=== PATIENT | female | born 1960 | race Caucasian/White ===

== ENCOUNTER 2019-11-19 11:28 | Observation (INO) | payer MEDICARE, MEDICAID, SELFPAY ==
[2019-11-19] VITALS (11 sets, daily range): BP systolic 103–146; BP diastolic 38–73; PULSE 42–62; RESP 14–18; TEMP 36.1–36.8; O2SAT 94–100; BMI 30.9
--- NOTE | ~2019-11-19 | CT_ITS ---
EXAMINATION: CT brain wo con DATE: 11/19/2019 12:33 INDICATION: Dizziness. Garbled speech. TECHNIQUE: Computed tomography (CT) of the head was performed without intravenous contrast. Sagittal and coronal reconstructions were performed. The mA was adjusted according to patient size. Iterative reconstruction technique was employed. The dose-length product was 605.33 mGy-cm. COMPARISON: head CT dated 04/12/19 and brain MR dated 04/13/19 FINDINGS: No acute intracranial hemorrhage, acute infarction or abnormal extra axial fluid collection. There is mild scattered white matter hypoattenuation consistent with chronic small vessel ischemic disease. Ventricles are normal and symmetric. No mass/mass effect. The orbits, paranasal sinuses and mastoid a ir cells are normal. Mild intracranial atherosclerotic calcification at the bilateral carotid siphons . IMPRESSION: 1. No acute intracranial process. 2. Stable appearance of mild scattered white matter hypoattenuation consistent with chronic small ves alexis ischemic disease. Reviewed, dictated and finalized at location A. ICAL SUPPLY ASSISTANT IMPRESSION: 1. No acute intracranial process. 2. Stable appearance of mild scattered white matter hypoattenuation consistent with chronic small vessel ischemic disease.
--- NOTE | ~2019-11-19 | XR_ITS ---
EXAMINATION: XR chest 1V portable DATE: 11/19/2019 12:48 INDICATION: Dizziness. TECHNIQUE: A single frontal view of the chest was obtained. COMPARISON: Chest single view 04/12/2019 FINDINGS: The chest demonstrates clear lungs without pneumonia, pleural effusion, or pneumothorax. Th e heart size is normal. There are changes of anterior fusion procedure in cervical spine. IMPRESSION: 1. No acute cardiopulmonary disease. Reviewed, dictated and finalized at location A. R MECHANIC
--- NOTE | ~2019-11-19 | US_ITS ---
EXAMINATION: US carotid duplex BI EXAM DATE: 11/19/2019 17:08 INDICATION: Dizziness, blurred vision. TECHNIQUE: Grayscale, color and pulsed Doppler images of the cervical carotid arteries were obtained . The degree of vessel stenosis is placed in one of the following categories: normal, <50% stenosis, 50-69% stenosis, >=70% stenosis but less than near-occlusion, near-occlusion, or occlusion. Note that percent stenosis relative to normal distal artery lumen diameter is indirectly measured from velocit y measurements as described by Marcelo, et al. Radiology 2003; 229:340-346. Comparison is made to prior examination from 10/12/2018. FINDINGS: RIGHT SIDE: Right common carotid artery peak systolic velocity (PSV in cm/s): 108 Right bulb/internal carotid artery peak systolic velocity (PSV in cm/s): 100 Right internal carotid artery end diastolic velocity (EDV in cm/s): 22 Right ICA/CCA peak systolic ratio: 0.9 Right external carotid artery peak systolic velocity (PSV in cm/s): 77 Right vertebral artery antegrade flow: yes There is no focal plaque identified. LEFT SIDE: Left common carotid artery peak systolic velocity (PSV in cm/s): 102 Left bulb/internal carotid artery peak systolic velocity (PSV in cm/s): 112 Left internal carotid artery end diastolic velocity (EDV in cm/s): 33 Left ICA/CCA peak systolic ratio: 1.1 Left external carotid artery peak systolic velocity (PSV in cm/s): 85 Left vertebral artery antegrade flow: yes There is no focal plaque identified. IMPRESSION: 1. Normal right internal carotid artery. 2. Normal left internal carotid artery. Reviewed, dictated and finalized at location A. TH BENEFITS SPECIALIST
--- NOTE | ~2019-11-19 | MR_ITS ---
EXAMINATION: MR brain/brain stem wo con DATE: 11/20/2019 08:23 INDICATION: Vertigo. Cerebral vascular accident. TECHNIQUE: Magnetic resonance imaging (MRI) of the brain and brainstem was performed without intraven ous contrast. Sequences included sagittal and axial T1-weighted FSE, axial diffusion-weighted FS EPI, axial T2*-weighted GRE, axial T2-weighted FLAIR Propeller, and axial T2-weighted Propeller. Apparent diffusion coefficient (ADC) maps were created. COMPARISON: Brain MRI 04/13/2019, head CT 11/19/2019 FINDINGS: There are scattered areas of nonspecific increased T2-weighted signal intensity in the cere bral white matter. There is no intracranial hemorrhage, acute infarction, or abnormal intracranial ma ss lesion. The ventricles are normal in size. The paranasal sinuses are clear. The orbits are normal. The mastoid air cells are normal. IMPRESSION: 1. Unchanged mild nonspecific cerebral white matter disease, which likely represents chronic small ve ssel ischemic disease. Reviewed, dictated and finalized at location A. ETING OPERATIONS ASSISTANT IMPRESSION: 1. Unchanged mild nonspecific cerebral white matter disease, which likely repre sents chronic small vessel ischemic disease.
--- NOTE | 2019-11-19 11:44 | ECG_ITS ---
Measurements Intervals [place] Rate: 40 P: 70 MA: 211 QRS: 13 QRSD: 80 T: 73 QT: 454 QTc: 371 Interpretive Statements SINUS BRADYCARDIA WITH FIRST DEGREE AV BLOCK RSR' IN V1 OR V2, PROBABLY NORMAL VARIANT BORDERLINE R WAVE PROGRESSION, ANTERIOR LEADS BASELINE ARTIFACT- I, II, AVR, AVF ABNORMAL ECG Electronically Signed On 11-19-2019 11:52:02 COLLECTION SYSTEMS ADMINISTRATOR by Brandon Wolf D.O.
[2019-11-19 12:02] LABS: Basophils Percent Auto 0.5 % (0.2-1.2); Eosinophils Absolute Auto 0.2 K/mm3 (0-0.3); Eosinophils Percent Auto 3.6 % (0-4.4); Hematocrit 42.9 % (37.0-47.0); Hemoglobin 13.7 g/dL (12.0-15.0); Immature Granulocyte Absolute 0.03 K/mm3 (0.00-0.031); Immature Granulocyte Percent A 0.5 % (0-0.5); Lymphocytes Absolute Auto 2.37 K/mm3 (0.9-3.2); Lymphocytes Percent Auto 35.9 % (18.3-44.2); Mean Corpuscular HGB Conc 31.9 g/dl (32-36); Mean Corpuscular Hemoglobin 28.1 pg (26-34); Mean Corpuscular Volume 88.1 fl (80-100); Mean Platelet Volume 9.9 fl (7.4-10.4); Monocytes Absolute Auto 0.3 K/mm3 (0.1-0.6); Monocytes Percent Auto 5.2 % (2.6-8.5); Neutrophils Absolute Auto 3.6 K/mm3 (1.3-6.7); Neutrophils Percent Auto 54.3 % (45.5-73.1); Platelet Count Result 284 k/mm3 (150-375); Red Blood Count 4.87 M/mm3 (4.2-5.4); Red Cell Distribution Width 13.4 % (11.5-14.5); White Blood Count 6.6 K/mm3 (4.5-10.0)
[2019-11-19] MEDS: SODIUM CHLORIDE 0.9% IV 500 ML 999 ML IV CONT (12:12)
[2019-11-19] MEDS: ONDANSETRON INJ 4 MG/2 ML VIAL IV PUSH (12:12)
[2019-11-19 12:19] LABS: INR 1.4; Prothrombin Time 17.2 Seconds (11.1-14.7)
[2019-11-19 12:20] LABS: Partial Thromboplastin Time 39.7 SECONDS (22.3-36.8)
[2019-11-19 12:30] LABS: Alanine Aminotransferase 24 U/L (4-35); Albumin Level 4.3 g/dL (3.5-5.1); Alkaline Phosphatase 109 U/L (38-126); Aspartate Amino Transferase 30 U/L (14-36); Bilirubin,Total 0.7 mg/dL (0.2-1.3); Blood Urea Nitrogen 8 mg/dL (7-17); Calcium 9.3 mg/dL (8.4-10.2); Carbon Dioxide 29 mmol/L (22-30); Chloride 105 mmol/L (98-107); Estimated Glomerular Filt Rate 57; Glucose 96 mg/dL (65-105); Potassium 4.4 mmol/L (3.4-5.0); Sodium 141 mmol/L (137-145)
--- NOTE | 2019-11-19 12:30 | ED.GENADULT ---
HPI - General Adult General Chief complaint: Weakness <TAMMIE Lyon Last Filed: 11/19/19 13:28> Stated complaint: Dizzy <TAMMIE Lyon Last Filed: 11/19/19 13:28> Time Seen by Provider: 11/19/19 11:49 <TAMMIE Lyon Last Filed: 11/19/19 13:28> Source: patient <TAMMIE Lyon Last Filed: 11/19/19 13:28> Mode of arrival: ambulatory <TAMMIE Lyon Last Filed: 11/19/19 13:28> Limitations: no limitations <TAMMIE Lyon Last Filed: 11/19/19 13:28> History of Present Illness HPI narrative: Patient is a 59-year-old female who presents to emergency department for evaluation dizziness and weakness that occurred upon waking this morning noting that yesterday she had felt fine patient on arrival to emergency department per private vehicle with family noting that the dizziness occurs with standing improves with lying. Patient denies injury or trauma or any URI symptoms. Patient on arrival is resting comfortably in the room in no distress. Patient notes that she is also having difficulty with ambulating. Patient notes mild headache. Patient has not taken anything for her symptoms. Patient with history of CVA <TAMMIE Lyon Last Filed: 11/19/19 13:28> Related Data Home medications: Home Medications Medication Instructions Recorded Confirmed aspirin 81 mg tablet,delayed 81 mg PO DAILY 07/29/19 07/29/19 release levothyroxine 100 mcg tablet 100 mcg PO DAILY 07/29/19 07/29/19 rivaroxaban 20 mg tablet 20 mg PO DAILY 07/29/19 07/29/19 cetirizine 10 mg tablet 10 mg PO DAILY PRN 08/04/19 07/29/19 cyanocobalamin (vitamin B-12) 1,000 mcg PO .COMPLEX 08/04/19 07/29/19 1,000 mcg tablet ergocalciferol (vitamin D2) 1,250 50,000 unit PO MONTHLY cap 08/04/19 08/04/19 mcg (50,000 unit) capsule folic acid 1 mg tablet 1 mg PO DAILY 08/04/19 08/04/19 <TAMMIE Lyon Last Filed: 11/19/19 13:28> Allergies/adverse reactions: Allergies Allergy/AdvReac Type Severity Reaction Status Date / Time penicillin G Allergy Severe ANAPHYLACTI Verified 08/04/19 10:22 C codeine Allergy Unknown Stopped Verified 08/04/19 10:22 Breathing hydromorphone Allergy Unknown Rash Verified 08/04/19 10:22 latex Allergy Unknown Swelling Verified 08/04/19 10:22 levofloxacin Allergy Unknown BLISTERS Verified 02/14/19 15:02 ON BODY morphine Allergy Unknown Low blood Verified 08/04/19 10:22 pressure oxycodone Allergy Unknown Rash Verified 04/13/19 13:39 Penicillins Allergy Unknown Stopped Verified 08/04/19 10:22 Breathing vancomycin Allergy Unknown Red [place] Verified 08/04/19 10:22 DRINKING ALCOHOL Allergy Unknown BLISTERS Uncoded 12/01/15 10:22 ON BODY <Chauncey Ramirez PA-C - Last Filed: 11/19/19 13:28> Review of Systems Review of Systems: All systems reviewed & are unremarkable except as noted in HPI and below <Chauncey Ramirez PA-C - Last Filed: 11/19/19 13:28> PMFSH Past Medical History Medical History: Medical History (Updated 11/19/19 @ 13:28 by Chauncey Ramirez PA-C) Adult hypothyroidism CVA (cerebral vascular accident) Hx of deep venous thrombosis Nicotine abuse Symptomatic PVCs <Chauncey Ramirez PA-C - Last Filed: 11/19/19 13:28> Surgical History Surgical History: Surgical History S/P cholecystectomy <Chauncey Ramirez PA-C - Last Filed: 11/19/19 13:28> Social History Social History: Social History Smoking status: Current every day smoker Alcohol intake: never Gender identity (if verbalized by the patient): Female <Chauncey Ramirez PA-C - Last Filed: 11/19/19 13:28> Exam Narrative: Exam Narrative: GENERAL: Well-appearing, well-nourished, and in no acute distress. HEAD: Normocephalic, atraumatic. EYES: PERRLA and EOMI. ENT: Nares kaila
[2019-11-19 13:14] LABS: Troponin I < 0.012 ng/mL (0.000-0.034)
[2019-11-19 13:15] LABS: Add Urine Microscopic? NO; Appearance Urine Clear (Clear); Bacteria Urine Trace /hpf; Bilirubin Urine Negative (Negative); Blood Urine Negative (Negative); Color Urine Straw (Yellow); Glucose Urine UA Negative (Negative); Ketones Urine Negative (Negative); Leukocyte Esterase Ur Negative LEU/UL (Negative); Mucus Urine Rare /lpf; Nitrate Urine Negative (Negative); Protein Urine Negative (Negative); RBC Urine 0-2 /hpf (0-2); Specific Grav Ur 1.013 (1.001-1.035); Squamous Epithelial Cell Urine Many /hpf (Few); Urobilinogen Urine Negative mg/dL (<2.0); WBC Urine 0-3 /hpf
--- NOTE | 2019-11-19 14:05 | PM.IMHP ---
H&P: HPI History of Present Illness Chief complaint: Dizziness Narrative: Gege Vidal is a 59 year old female with history of stroke, carotid artery disease, hypothyroidism, DVT, and GERD who presented to the emergency department earlier this morning via private vehicle from home for evaluation of weakness and dizziness. She was in her usual state of health when she went to bed last evening. When she sat up this morning upon waking, she notes severe dizziness associated with nausea. It was so severe that it caused her to fall back into bed. With further questioning, she more so describes vertigo, telling me it felt as though she was swaying back and forth. In fact, her son had to help her to the bathroom today due to her being off balance. She also notes some mild left frontal headache as well as blurry vision, which has resolved. The vertigo seems to improve when lying supine, and is worse with standing and ambulating. It is not necessarily worse with change of head position only. The patient is concerned that perhaps it is due to her pulse being low, in the 50s and even high 40s today. Apparently she was started on metoprolol for frequent PVCs, and recently had the dose increased to 50 milligrams daily. Her PVCs have improved with the increase in dose, however. She denies tinnitus, focal weakness, paresthesias, chest pain, pleuritic pain, current palpitations, and recent cold or flu symptoms. No known history of cardiac dysrhythmia. Review of Systems Review of Systems: Narrative: Twelve systems were reviewed with pertinent positives and negatives as per HPI. No recent cold or flu symptoms. She denies exertional chest pain and shortness of breath. As per HPI, she was started on metoprolol sometime in fall 2018 for frequent PVCs and had her metoprolol dose increased to 50 milligrams daily within the last month or so. No focal weakness or paresthesias. She does note short-term memory loss from her prior strokes, which family members say has been getting worse in the past several weeks. Except as documented, all other systems were reviewed and are negative. [facility] Past Medical History Medical History (Updated 11/19/19 @ 18:57 by Paola Hampton PA-C) Carotid artery disease Status post left carotid endarterectomy. Current use of intermediate project manager anticoagulation CVA (cerebral vascular accident) With short-term memory loss. Diverticulosis With history of diverticulitis. Fibromyalgia GERD (gastroesophageal reflux disease) History of cervical cancer History of colon polyps Hx of deep venous thrombosis Hyperlipidemia Hypothyroidism Nicotine abuse Osteoarthritis Symptomatic PVCs On metoprolol 50 milligrams daily. Surgical History Surgical History (Updated 11/19/19 @ 18:37 by Paola Hampton PA-C) History of arthroplasty of right knee History of left-sided carotid endarterectomy Status post cervical spinal fusion Status post cholecystectomy Status post left breast biopsy Status post partial hysterectomy For cervical cancer. Status post right rotator cuff repair Status post tonsillectomy Status post tubal ligation Family History Family History Mother Depression Family history of diabetes mellitus in first degree relative Father Family history of diabetes mellitus in first degree relative Acute myocardial infarction Other Family history of allergic disorder Family history of cardiovascular disease Family history of malignant neoplasm Hypertension Social History Social History (Updated 11/19/19 @ 18:38 by Paola Hampton PA-C) Social History: The patient is . She lives with her son in [place]. She designates her sons, Laith Howard and Kemal Islas, as her surrogate decision makers and she wishes to be a full code. She has smoked at least 1 pack of cigarettes per day for almost 40 years. She denies alcohol and drug abuse. Years smoke
--- NOTE | 2019-11-19 14:52 | PCOTNOTE ---
Attempted to see patient for OT evaluation. Patient not yet admitted to room on 2nd med. Will attempt OT evaluation at later time.
--- NOTE | 2019-11-19 15:56 | ADMGEN ---
This patient, Gege Vidal, was admitted to Medical Room 250-01. Patient/family oriented to hospital policies and general routines including ID bracelet, bed and alarms, visiting hours, pain management, procedures, bathroom and other care routines, personal items, smoking policy, room service/diet, and visiting hours. Valuables list has been completed. Information on how to activate the Rapid Response Team has been discussed. Patient/Family are encouraged to report perceived risks to care and to ask questions if they do not understand what they are told or what they should do.
[2019-11-19] MEDS: LACTATED RINGERS 1,000 ML 125 ML IV CONT (17:36)
[2019-11-19 19:48] LABS: Thyroid Stimulating Hormone Reflex 0.067 uIU/mL (0.465-4.68)
[2019-11-19 20:26] LABS: Free T4 Free Thyroxine Reflex 1.52 ng/dL (0.78-2.19)
[2019-11-19 21:05] LABS: Total Triiodothyronine (T3) 1.34 NG/ML (0.97-1.69)
[2019-11-20] VITALS: PULSE 57
--- NOTE | 2019-11-20 | ECHO_ITS ---
Patient Info Name: Gege Vidal Age: 59 years : 1960 Gender: Female Ht: 64 in Wt: 179 lbs BSA: 1.94 m2 HR: 52 bpm BP: 137 / 67 mmHg Technical Quality: Good Exam Date: 11/20/2019 9:25 AM Exam Location: [facility]monary Patient Status: Inpatient Admit Date: 11/19/2019 Staff Ordering Physician: Paola Hampton PA-C Grain Elevator Operator: Jer Dsouza RDCS, RT Attending Provider: René Valero MD Referring Physician: Berta BENSON; Exam Type: CA echo doppler color flow Study Info Indications R07.89 - Other chest pain Complete two-dimensional, color flow and Doppler transthoracic echocardiogram is performed with contrast to opacify the left ventrical and to improve the deliniation of the left ventrical endocarial boarders. Summary 1. Left ventricular chamber dimension is normal. 2. Left ventricular systolic function is normal, estimated at 55-60%. 3. The left ventricular diastolic function is abnormal. 4. E/e' 12 is mildly elevated. 5. Global longitudinal strain is normal at -21.1%. 6. There is trace mitral valve regurgitation. 7. There is trace tricuspid valve regurgitation. 8. Dilated inferior vena cava with >50% collapse upon inspiration consistent with elevated right atrial pressure, 10 mmHg. Left Ventricle E/e' 12 is mildly elevated. Global longitudinal strain is normal at -21.1%. Left ventricular chamber dimension is normal. Left ventricular systolic function is normal, estimated at 55-60%. The left ventricular diastolic function is abnormal. Right Ventricle Right ventricular chamber dimension is normal. Right ventricular systolic function is normal. Left Atria Left atrial chamber dimension is normal. Right Atria Right atrial chamber dimension is normal. Aortic Valve The aortic valve is trileaflet. There is no aortic valve stenosis. There is no aortic valve regurgitation. Pulmonic Valve There is no pulmonic regurgitation. Mitral Valve There is no mitral valve stenosis. There is trace mitral valve regurgitation. Tricuspid Valve There is trace tricuspid valve regurgitation. RVSP is not measured due to an inadequate TR jet. Pericardium/Pleural There is no pericardial effusion. Inferior Vena Cava Dilated inferior vena cava with >50% collapse upon inspiration consistent with elevated right atrial pressure, 10 mmHg. Aorta The aortic root size at the sinus of Valsalva is normal. Left Ventricular Outflow Tract Name Value Normal LVOT 2D LVOT Diameter 2.1 cm LVOT Doppler LVOT Peak Gradient 3 mmHg LVOT Mean Gradient 2 mmHg LVOT VTI 22 cm LVOT VTI/AV VTI Ratio 0.8 LVOT Stroke Volume 72 ml LVOT CO 4.4 l/min LVOT CI 2.3 l/min/m2 Pulmonic Valve Name Value Normal PV Do
[2019-11-20 02:00] VITALS: BP 110/50; PULSE 64; RESP 16; TEMP 35.6; O2SAT 94
[2019-11-20 04:00] VITALS: PULSE 53
[2019-11-20] MEDS: LACTATED RINGERS 1,000 ML 125 ML IV CONT ×2 (04:37→11:04)
[2019-11-20 05:25] LABS: Basophils Percent Auto 0.6 % (0.2-1.2); Eosinophils Absolute Auto 0.2 K/mm3 (0-0.3); Eosinophils Percent Auto 3.9 % (0-4.4); Hematocrit 36.1 % (37.0-47.0); Hemoglobin 11.6 g/dL (12.0-15.0); Immature Granulocyte Absolute 0.01 K/mm3 (0.00-0.031); Immature Granulocyte Percent A 0.2 % (0-0.5); Lymphocytes Absolute Auto 2.37 K/mm3 (0.9-3.2); Lymphocytes Percent Auto 43.8 % (18.3-44.2); Mean Corpuscular HGB Conc 32.1 g/dl (32-36); Mean Corpuscular Hemoglobin 28.2 pg (26-34); Mean Corpuscular Volume 87.8 fl (80-100); Mean Platelet Volume 9.8 fl (7.4-10.4); Monocytes Absolute Auto 0.3 K/mm3 (0.1-0.6); Monocytes Percent Auto 5.2 % (2.6-8.5); Neutrophils Absolute Auto 2.5 K/mm3 (1.3-6.7); Neutrophils Percent Auto 46.3 % (45.5-73.1); Platelet Count Result 214 k/mm3 (150-375); Red Blood Count 4.11 M/mm3 (4.2-5.4); Red Cell Distribution Width 13.2 % (11.5-14.5); White Blood Count 5.4 K/mm3 (4.5-10.0)
[2019-11-20 05:53] LABS: Blood Urea Nitrogen 8 mg/dL (7-17); Calcium 8.6 mg/dL (8.4-10.2); Carbon Dioxide 29 mmol/L (22-30); Chloride 107 mmol/L (98-107); Estimated CRCL calculation 56 ml/min; Estimated Glomerular Filt Rate 57; Glucose 97 mg/dL (65-105); Potassium 3.8 mmol/L (3.4-5.0); Sodium 139 mmol/L (137-145)
[2019-11-20] MEDS: LEVOTHYROXINE SODIUM 112 MCG TABLET PO (06:23)
[2019-11-20 06:45] VITALS: BP 108/48; PULSE 57; RESP 16; TEMP 35.9; O2SAT 98
[2019-11-20] MEDS: ONDANSETRON INJ 4 MG/2 ML VIAL IV PUSH (08:28)
[2019-11-20 10:00] VITALS: BP 115/50; PULSE 51; RESP 18; TEMP 36.1; O2SAT 99
[2019-11-20] MEDS: FOLIC ACID 1 MG TABLET PO (10:04)
[2019-11-20] MEDS: ATORVASTATIN 40 MG TABLET PO (10:04)
[2019-11-20] MEDS: RIVAROXABAN 20 MG TABLET PO (10:04)
[2019-11-20] MEDS: ASPIRIN 81 MG CHEWABLE TABLET PO (10:04)
[2019-11-20] MEDS: PANTOPRAZOLE SOD SESQUIHYDRATE 20 MG TAB PO (10:04)
--- NOTE | 2019-11-20 10:04 | PC.NURSE ---
Patient requested taking 0900 medications now due to nausea subsiding. Called pharmacy and requested vitamin B12 be sent to floor for administration. Patient takes vitamin B12 on Saturday, Saturday, and Saturday.
[2019-11-20] MEDS: CYANOCOBALAMIN 1,000 MCG TABLET 1000 MCG PO (11:04)
[2019-11-20 12:00] VITALS: PULSE 54
--- NOTE | 2019-11-20 13:26 | PM.DS ---
DS: Diagnosis Admitting Diagnosis Admitting Diagnosis: Dizziness and giddiness Discharge Diagnosis (1) Vertigo: Code(s): R42 - Dizziness and giddiness Status: Acute Assessment and Plan: Avoid rapid changes in position. 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 Continue. (4) Tobacco dependence: Code(s): F17.200 - Nicotine dependence, unspecified, uncomplicated Status: Acute Assessment and Plan: Discussed the importance of smoking cessation. She is currently cutting down and receptive to the idea. (5) Adult hypothyroidism: Code(s): E03.9 - Hypothyroidism, unspecified Status: Acute (6) Symptomatic PVCs: Code(s): I49.3 - Ventricular premature depolarization Status: Acute Assessment and Plan: Encouraged her to avoid medications for the benign PVCs DS: Summary Hospital Course Reason for hospitalization: dizziness Hospital Course: Admitted with vertiginous dizziness with no focal symptoms. Noted to be bradycardic. Sinus rhythm. Heart rate ranged from 30s to 70s. Asymptomatic. Previous Holter monitor for evaluation. Recently started on metoprolol for PVCs. Dose recently increased from 25-50 mg daily. This was held during hospitalization. Patient's symptoms gradually improved. She was up and about with minimal difficulty. Tolerating her diet. Wished to go home. Status at Discharge Functional status at discharge: independent ambulation Overall status at discharge: patient is progressing back to baseline Time Spent with Patient Time attestation: Total time spent providing and/or coordinating discharge services: 33 min Exam Narrative: Exam Narrative: HEENT: EOMI, PERRL, pharyngeal mucosa pink and intact NECK: No JVD, adenopathy, or thyromegaly CHEST: Clear to auscultation. Normal effort. HEART: NL S1/S2, regular, no murmur ABDOMEN: BS+, soft, nontender, no mass, no bruits EXTREMITIES: No cyanosis, edema, or clubbing NEUROLOGIC: CN intact and symmetric to inspection. MUSCULOSKELETAL: Tone and strength symmetric. PSYCH: Alert. Oriented to person, place, and time. DS: Data Data Completed and Pending Labs on day of discharge: Labs from last 24 hours 11/20/19 11/20/19 11/19/19 05:07 05:07 11:49 WBC 5.4 RBC 4.11 L Hgb 11.6 L Hct 36.1 L MCV 87.8 MCH 28.2 MCHC 32.1 RDW 13.2 Plt Count 214 MPV 9.8 Immature Gran % (Auto) 0.2 Neut % (Auto) 46.3 Lymph % (Auto) 43.8 [place] % (Auto) 5.2 Eos % (Auto) 3.9 Baso % (Auto) 0.6 Lymph # (Auto) 2.37 [place] # (Auto) 0.3 Eos # (Auto) 0.2 Baso # (Auto) 0.0 Abs Immat Gran (auto) 0.01 Absolute Neuts (auto) 2.5 Absolute Nucleated RBC 0.0 Nucleated RBC % 0.0 Sodium 139 Potassium 3.8 Chloride 107 Carbon Dioxide 29 BUN 8 Creatinine 1.00 Estim Creat Clear Calc 56 Estimated GFR 57 L Glucose 97 Calcium 8.6 TSH (Reflex) Free T4 Total T3 1.34 11/19/19 11/19/19 11:49 11:49 WBC RBC Hgb Hct MCV MCH MCHC RDW Plt Count MPV Immature Gran % (Auto) Neut % (Auto) Lymph % (Auto) [place] % (Auto) Eos % (Auto) Baso % (Auto) Lymph # (Auto) [place] # (Auto) Eos # (Auto) Baso # (Auto) Abs Immat Gran (auto) Absolute Neuts (auto) Absolute Nucleated RBC Nucleated RBC % Sodium Potassium Chloride Carbon Dioxide BUN Creatinine Estim Creat Clear Calc Estimated GFR Glucose Calcium TSH (Reflex) 0.067 L Free T4 1.52 Total T3 Discharge Plan Discharge Attending physician on discharge: Damian Moore Consulting providers: Chauncey Ramirez ; Jocelyn
--- NOTE | 2019-11-20 17:53 | CONS_ITS ---
DATE OF CONSULTATION: 11/19/2019 HISTORY: This 59-year-old right-handed female has been admitted to [facility] through the emergency room for the complaint of weakness and dizziness. Reportedly, she was in her usual state of health when she went to bed last evening. When she sat up this morning upon walking, she notice severe dizziness along with nausea, it was so severe that it caused her to fall back into bed. Dizziness was of vertiginous type, swinging back and forth, in fact her son had to help her to the bathroom today due to her being off balance. She also complains of left frontal headache and blurry vision. She was concerned about her heart rate going slow, so she came to the hospital. She has been taking metoprolol for frequent PVCs. Recently, the medicine has been increased to 50 mg per day though her PVCs improved. She does have ongoing history of: 1. Carotid artery disease for which she has undergone left carotid endarterectomy. 2. Anticoagulation therapy on ongoing basis. 3. Stroke. 4. Diverticulitis. 5. Fibromyalgia. 6. GERD. 7. History of cervical cancer. 8. Colon polyps. 9. DVT. 10. Hyperlipidemia. 11. Hypothyroidism. 12. Nicotinic abuse. 13. Osteoarthritis. 14. Symptomatic PVCs. She has also undergone a right knee arthroplasty in addition to left carotid endarterectomy, cervical spine fusion, cholecystectomy, left breast biopsy, partial hysterectomy, post rotator cuff repair, tonsillectomy and tubal ligation. MEDICATIONS: She has been taking multiple medications, which were listed: 1. Rivaroxaban 20 mg daily. 2. Cyanocobalamin 1000 mcg p.o. daily. 3. Ergocalciferol 90885 units monthly. 4. Folic acid 1 mg daily. 5. Atorvastatin 40 mg daily. 6. Pantoprazole 20 mg daily. 7. Aspirin 81 mg daily. 8. Levothyroxine 112 mcg daily. 9. Metoprolol succinate p.o. daily. ALLERGIES: EVALUATION UP UNTIL NOW DOCUMENTED. SHE IS ALLERGIC TO MULTIPLE MEDICATIONS INCLUDING PENICILLIN G, CODEINE, HYDROMORPHONE, LATEX, LEVOFLOXACIN, MORPHINE, OXYCODONE, PENICILLIN, VANCOMYCIN, AND ALCOHOL. PHYSICAL EXAMINATION: VITAL SIGNS: She is notedly afebrile, pulse of 52, repeat 42, respirations 16, blood pressure 140/58, pulse ox 100%. GENERAL: She is awake, alert, cooperative, in no obvious acute distress. HEENT: Head normocephalic with no cranial bruit. Ear, nose, throat examination normal. NECK: Supple with no cervical bruit, except that she had left carotid endarterectomy scar. HEART: Regular. LUNGS: Clear. ABDOMEN: Soft. NEUROLOGICAL: She is awake, alert, oriented x3. Speech not dysphasic, not dysarthric, not dysphonic. Pupils round, regular. Jean of vision full. Extraocular movements full. Face symmetrical. Tongue midline. Motor examination revealed her to have no drift of 1 side or other side. Reflexes were symmetrical. Plantars were downgoing. There was no evidence of sensory or cerebellar deficit. LABORATORY DATA: CBC revealed WBC 6.6, hemoglobin 13.7, platelet count 284. Basic metabolic panel reveals sodium 141, potassium 4.4, chloride 105, CO2 of 29, BUN 8, creatinine 1.0, glucose 96, calcium 9.3. Troponin less than 0.012. Hepatic enzymes normal. UA negative. CT scan of the head was negative, except the mild scattered white matter hypoattenuation, consistent with chronic small-vessel disease. Chest x-ray was negative. IMPRESSION: Vertigo, possibility of the TIA. MRI of the brain is essentially unchanged. The patient is already on anticoagulation therapy. Treatment will be continued as such. Doppler studies of carotid has been repeated and there is no evidence of any carotid disease. Further recommendation accordingly. JACOBO PARK M.D
== END 2019-11-20 14:52 | disposition home or self-care (01) ==
LOC: ANHED 13:37 → ANH2MED 14:59
PROVIDERS: Emergency Medicine; Emergency Medicine Emergency Medical Services; Physician Assistant; Admitting Provider Family Medicine; Emergency Provider Emergency Medicine; PCP Internal Medicine; Visit Provider Internal Medicine
DX: R42 Dizziness and giddiness (principal); R00.1 Bradycardia, unspecified; F17.200 Nicotine dependence, unspecified, uncomplicated; E03.9 Hypothyroidism, unspecified; I49.3 Ventricular premature depolarization; M79.7 Fibromyalgia; Z79.01 Long term (current) use of anticoagulants; Z79.82 Long term (current) use of aspirin; Z79.899 Other long term (current) drug therapy; Z85.41 Personal history of malignant neoplasm of cervix uteri; Z86.718 Personal history of other venous thrombosis and embolism; Z86.73 Personal history of transient ischemic attack (TIA), and cerebral infarction without residual deficits; Z96.651 Presence of right artificial knee joint; Z98.1 Arthrodesis status; Z88.0 Allergy status to penicillin; Z88.1 Allergy status to other antibiotic agents; Z88.8 Allergy status to other drugs, medicaments and biological substances; Z88.5 Allergy status to narcotic agent
CPT/HCPCS: 36415; 70450; 70551; 71045; 80048; 80053; 81003; 81025; 84439; 84443; 84480; 84484; 85025; 85610; 85730; 93005; 93306; 93880; 96361; 96372; 96374; 96376; 97161; 97165; 99285; A9270; G0378; J2405; J3360; J7040; J7120

== ENCOUNTER 2019-11-26 14:47 | Outpatient (CLI) | payer MEDICARE, SELFPAY ==
[2019-11-26 15:11] LABS: Hematocrit 42.7 % (37.0-47.0); Hemoglobin 13.9 g/dL (12.0-15.0); Mean Corpuscular HGB Conc 32.6 g/dl (32-36); Mean Corpuscular Hemoglobin 28.5 pg (26-34); Mean Corpuscular Volume 87.7 fl (80-100); Mean Platelet Volume 9.7 fl (7.4-10.4); Platelet Count Result 270 k/mm3 (150-375); Red Blood Count 4.87 M/mm3 (4.2-5.4); Red Cell Distribution Width 13.4 % (11.5-14.5); White Blood Count 7.8 K/mm3 (4.5-10.0)
== END 2019-11-26 14:48 | disposition home or self-care (01) ==
LOC: ANHLAB 14:49
PROVIDERS: PCP Internal Medicine; Visit Provider Nurse Practitioner
DX: D64.9 Anemia, unspecified (principal)
CPT/HCPCS: 36415; 85027

== ENCOUNTER 2019-12-07 10:27 | Outpatient (CLI) | payer MEDICARE, SELFPAY ==
--- NOTE | 2019-12-10 12:17 | WPDHOLTEREM ---
Holter/Event Monitor Holter/Event Monitor Date of procedure: 12/07/19 Procedure Type: 48 hour holter monitor Indications: Bradycardia Conclusion: 1. 48 hour holter monitor on 12/07/19. 2. Underlying rhythm is sinus rhythm. HR range 43-154 bpm; average HR 79 bpm. 3. There are 32 premature supraventricular complexes and 1 supraventricular couplet. No supraventricular tachycardia. 4. There are 520 premature ventricular complexes, 3 ventricular couplets, 29 ventricular bigeminy. No ventricular tachycardia. 5. There is first degree AV block. No significant pauses greater than 2 seconds. 6. Patient reports symptoms of heart flip flop, shortness of breath which demonstrate sinus rhythm, HR range 72-129 bpm and one PVC.
== END 2019-12-07 10:28 | disposition home or self-care (01) ==
PROVIDERS: PCP Internal Medicine; Visit Provider Internal Medicine Cardiovascular Disease
DX: R00.1 Bradycardia, unspecified (principal)
CPT/HCPCS: 93225; 93226

== ENCOUNTER 2019-12-29 10:34 | Outpatient (CLI) | payer MEDICARE, SELFPAY ==
--- NOTE | ~2019-12-29 | XR_ITS ---
EXAMINATION: XR hand LT 2V DATE: 12/29/2019 10:59 INDICATION: Pain at the left second metacarpal post fall TECHNIQUE: Posteroanterior and lateral views of the left hand were obtained. COMPARISON: None. FINDINGS: Alignment is normal. No fracture. Mild polyarticular osteoarthritis at the interphalangeal joints wit h distal predominance. Soft tissues are unremarkable. IMPRESSION: 1. Mild polyarticular interphalangeal osteoarthritis with distal predominance. No acute osseous abnor mality. Reviewed, dictated and finalized at location A. IMPRESSION: 1. Mild polyarticular interphalangeal osteoarthritis with distal predominance. No acute osseous abnormality.
--- NOTE | ~2019-12-29 | XR_ITS ---
EXAMINATION: XR elbow LT 2V DATE: 12/29/2019 10:59 INDICATION: Posterior left elbow pain post fall TECHNIQUE: Anteroposterior and lateral views of the left elbow were obtained. COMPARISON: None. FINDINGS: Alignment is normal. No fracture or joint effusion. Joint spaces are normal. Soft tissues are unremar kable. IMPRESSION: 1. Negative left elbow radiographs. Reviewed, dictated and finalized at location A.
== END 2019-12-29 10:35 | disposition home or self-care (01) ==
LOC: ANHIMG 10:40
PROVIDERS: PCP Internal Medicine; Visit Provider Nurse Practitioner
DX: M25.529 Pain in unspecified elbow (principal); M19.042 Primary osteoarthritis, left hand
CPT/HCPCS: 73070; 73120

== ENCOUNTER 2020-01-06 07:52 | Outpatient (CLI) | payer MEDICARE, SELFPAY ==
[2020-01-06 08:06] LABS: Basophils Percent Auto 0.5 % (0.2-1.2); Eosinophils Absolute Auto 0.2 K/mm3 (0-0.3); Eosinophils Percent Auto 3.3 % (0-4.4); Hematocrit 43.6 % (37.0-47.0); Immature Granulocyte Absolute 0.02 K/mm3 (0.00-0.031); Immature Granulocyte Percent A 0.3 % (0-0.5); Lymphocytes Absolute Auto 1.83 K/mm3 (0.9-3.2); Lymphocytes Percent Auto 27.6 % (18.3-44.2); Mean Corpuscular HGB Conc 32.1 g/dl (32-36); Mean Corpuscular Hemoglobin 28.6 pg (26-34); Mean Corpuscular Volume 89.2 fl (80-100); Mean Platelet Volume 9.8 fl (7.4-10.4); Monocytes Absolute Auto 0.5 K/mm3 (0.1-0.6); Monocytes Percent Auto 6.9 % (2.6-8.5); Neutrophils Absolute Auto 4.1 K/mm3 (1.3-6.7); Neutrophils Percent Auto 61.4 % (45.5-73.1); Platelet Count Result 298 k/mm3 (150-375); Red Blood Count 4.89 M/mm3 (4.2-5.4); Red Cell Distribution Width 12.8 % (11.5-14.5); White Blood Count 6.6 K/mm3 (4.5-10.0)
== END 2020-01-06 07:53 | disposition home or self-care (01) ==
LOC: ANHLAB 07:54
PROVIDERS: PCP Internal Medicine; Referring Provider Nurse Practitioner; Visit Provider Internal Medicine Hematology & Oncology
DX: I82.501 Chronic embolism and thrombosis of unspecified deep veins of right lower extremity (principal); E03.9 Hypothyroidism, unspecified
CPT/HCPCS: 36415; 84443; 85025

== ENCOUNTER 2020-02-01 14:28 | Outpatient (CLI) | payer MEDICARE, MEDICAID, SELFPAY ==
[2020-02-01 15:49] LABS: Alanine Aminotransferase 26 U/L (4-35); Albumin Level 4.1 g/dL (3.5-5.1); Alkaline Phosphatase 116 U/L (38-126); Aspartate Amino Transferase 26 U/L (14-36); Bilirubin,Total 0.4 mg/dL (0.2-1.3); Blood Urea Nitrogen 9 mg/dL (7-17); Carbon Dioxide 27 mmol/L (22-30); Chloride 107 mmol/L (98-107); Cholesterol 159 mg/dL (0-200); Estimated Glomerular Filt Rate > 60; Glucose 103 mg/dL (65-105); HDL Direct 43 mg/dL; Potassium 3.9 mmol/L (3.4-5.0); Sodium 138 mmol/L (137-145); Triglycerides 157 mg/dL (<150)
[2020-02-01 16:00] LABS: LDL Cholesterol Direct 84 mg/dL
== END 2020-02-01 14:29 | disposition home or self-care (01) ==
PROVIDERS: PCP Internal Medicine; Visit Provider Nurse Practitioner
DX: E78.5 Hyperlipidemia, unspecified (principal)
CPT/HCPCS: 36415; 80048; 80061; 80076

== ENCOUNTER 2020-02-03 19:10 | Emergency (ER) | payer MEDICARE, MEDICAID, SELFPAY ==
--- NOTE | ~2020-02-03 | XR_ITS ---
EXAMINATION: XR hand LT min 3V INDICATION: Left hand pain TECHNIQUE: Three views of the left hand are obtained. COMPARISON: 12/29/2019 FINDINGS: There is no fracture, dislocation, or subluxation. Again noted is mild osteoarthritis in mu ltiple interphalangeal joints. The soft tissues are unremarkable. IMPRESSION: 1. No acute osseous abnormality. Reviewed, dictated and finalized at location A.
--- NOTE | ~2020-02-03 | XR_ITS ---
EXAMINATION: XR knee LT min 4V DATE: 02/03/2020 20:17 INDICATION: Left knee pain TECHNIQUE: Four views of the left knee were obtained. COMPARISON: None. FINDINGS: Alignment is normal. No fracture or osteochondral lesion. There is mild tricompartmental os teoarthritis characterized by tiny marginal osteophytes. No joint effusion/synovitis. Soft tissues a re unremarkable. IMPRESSION: 1. No acute osseous abnormality. Reviewed, dictated and finalized at location A.
--- NOTE | ~2020-02-03 | XR_ITS ---
EXAMINATION: XR finger 3rd RT min 2V INDICATION: Right third finger pain TECHNIQUE: Three views of the right third finger are obtained. COMPARISON: None available FINDINGS: There is no fracture, dislocation, or subluxation. The bones, soft tissues, and joint space s are normal. IMPRESSION: 1. No acute osseous abnormality. Reviewed, dictated and finalized at location A.
--- NOTE | ~2020-02-03 | XR_ITS ---
EXAMINATION: XR knee RT min 4V DATE: 02/03/2020 20:15 INDICATION: Right knee pain after fall TECHNIQUE: Four views of the right knee were obtained. COMPARISON: 12/25/2013 FINDINGS: There are changes of interval total knee arthroplasty. Alignment is normal. No fracture or osteochondral lesion. There is a small knee joint effusion. No joint effusion/synovitis. Soft tissue s are unremarkable. IMPRESSION: 1. Small knee joint effusion and interval total knee arthroplasty without acute osseous findings iden tified. Reviewed, dictated and finalized at location A. IMPRESSION: 1. Small knee joint effusion and interval total knee arthroplasty without acute osseous findings identified.
--- NOTE | ~2020-02-03 | CT_ITS ---
EXAMINATION: CT cervical spine wo con DATE: 02/03/2020 19:57 INDICATION: Neck pain, head injury TECHNIQUE: Computed tomography (CT) of the cervical spine was performed without intravenous contrast. The dose-length product (DLP) was 400.94 mGy-cm. Automated exposure control and iterative reconstruc tion technique were employed. COMPARISON: 09/19/2018 FINDINGS: There are changes of anterior fusion procedure at C5-6. The vertebral body heights and alig nment are normal. There is mild loss of intervertebral disc space height at C6-7. The odontoid is int act. The prevertebral soft tissues are normal. There is no fracture. A hemangioma is again noted in t he C7 vertebral body. There is severe uncovertebral joint osteoarthritis on the left at C6-7. Mild fa cet and uncovertebral joint osteoarthritis is seen elsewhere in the cervical spine. IMPRESSION: 1. Mild cervical spondylosis without acute findings or significant interval change. Reviewed, dictated and finalized at location A. IMPRESSION: 1. Mild cervical spondylosis without acute findings or significant interval sabiha nge.
--- NOTE | ~2020-02-03 | XR_ITS ---
EXAMINATION: XR ankle LT min 3V DATE: 02/03/2020 20:16 INDICATION: Left ankle pain TECHNIQUE: Anteroposterior, lateral, mortise, and additional oblique view of the ankle were obtained. COMPARISON: None. FINDINGS: There is no fracture, dislocation, or subluxation. The bones, soft tissues, and joint space s are normal. IMPRESSION: 1. No acute osseous abnormality. Reviewed, dictated and finalized at location A.
--- NOTE | ~2020-02-03 | CT_ITS ---
EXAMINATION: CT brain wo con INDICATION: Head injury COMPARISON: 11/19/2019 TECHNIQUE: Standard unenhanced head CT. The dose-length product (DLP) was 529.67 mGy-cm. The mA was a djusted according to patient size. Iterative reconstruction technique was employed. FINDINGS: There is no intracranial hemorrhage, acute infarction, or abnormal mass lesion. The ventric les are normal. There is no abnormal mass effect or midline shift. The day-white matter differentiat ion is normal. The basal cisterns are patent. The orbits are normal. The paranasal sinuses, mastoids and calvarium are normal. IMPRESSION: 1. No acute intracranial abnormality. Reviewed, dictated and finalized at location A.
--- NOTE | ~2020-02-03 | XR_ITS ---
EXAMINATION: XR shoulder LT min 2V INDICATION: Left shoulder pain TECHNIQUE: Four views of the left shoulder are submitted. COMPARISON: 02/21/2011 FINDINGS: Normal alignment. No fracture. Glenohumeral and acromioclavicular joint spaces are normal. Soft tissues are unremarkable. Changes of cervical spine fusion are incidentally noted. IMPRESSION: No acute osseous abnormality. Reviewed, dictated and finalized at location A.
[2020-02-03 19:11] VITALS: BP 151/77; PULSE 98; RESP 16; TEMP 36.7; O2SAT 97
[2020-02-03 19:21] VITALS: BP 128/112; PULSE 96; RESP 16; TEMP 36.6; O2SAT 98
--- NOTE | 2020-02-03 19:25 | PC.NURSE ---
Pts wedding rings removed from left ring finger due to finger swelling. placed in specimen cup and given to son in the room.
--- NOTE | 2020-02-03 19:42 | ED.FALL ---
HPI - Fall General Chief Complaint: Fall Stated Complaint: fall Time Seen by Provider: 02/03/20 19:19 Source: patient Mode of arrival: ambulatory Limitations: no limitations History of Present Illness HPI Narrative: Patient is a 59-year-old female who presents to the emergency department with complaint of a fall. Patient states she was clumsy twisted her left ankle as she was leaving her front porch and fell. She is complaining of left ankle pain, bilateral knee pain, left hand pain, left shoulder pain, right third finger pain, left-sided neck pain, and left facial injury. Patient is on Xarelto and aspirin. Patient denies any recent illness symptoms and reports the fall was purely mechanical. MD complaint: fall Fall from: from height (distance) (Off front porch) Place fall occurred: home Loss of consciousness: none Prolonged down time: no Symptoms prior to fall: none Context: tripped/slipped Location of injury: head and neck Location of injury - extremities: Left: shoulder and Bilateral: hand and knee Associated symptoms (after fall): headache and neck pain Related Data Home Medications Medication Instructions Recorded Confirmed rivaroxaban 20 mg tablet 20 mg PO DAILY 07/29/19 12/29/19 cyanocobalamin (vitamin B-12) 1,000 mcg PO .COMPLEX 08/04/19 12/29/19 1,000 mcg tablet ergocalciferol (vitamin D2) 1,250 50,000 unit PO MONTHLY cap 08/04/19 12/29/19 mcg (50,000 unit) capsule folic acid 1 mg tablet 1 mg PO DAILY 08/04/19 12/29/19 aspirin 81 mg PO DAILY 11/19/19 12/29/19 acetaminophen 325 mg tablet 325 mg PO Q6H PRN 12/29/19 12/29/19 Allergies Allergy/AdvReac Type Severity Reaction Status Date / Time penicillin G Allergy Severe ANAPHYLACTI Verified 12/29/19 09:27 C codeine Allergy Unknown Stopped Verified 12/29/19 09:27 Breathing hydromorphone Allergy Unknown Rash Verified 12/29/19 09:27 latex Allergy Unknown Swelling Verified 12/29/19 09:27 levofloxacin Allergy Unknown BLISTERS Verified 12/29/19 09:27 ON BODY morphine Allergy Unknown Low blood Verified 12/29/19 09:27 pressure oxycodone Allergy Unknown Rash Verified 12/29/19 09:27 Penicillins Allergy Unknown Stopped Verified 12/29/19 09:27 Breathing vancomycin Allergy Unknown Red Pablito Verified 12/29/19 09:27 DRINKING ALCOHOL Allergy Unknown BLISTERS Uncoded 12/29/19 09:12 ON BODY Review of Systems Review of Systems: All systems reviewed & are unremarkable except as noted in HPI and below PMFSH Past Medical History Medical History Carotid artery disease Status post left carotid endarterectomy. Current use of long term care social worker anticoagulation CVA (cerebral vascular accident) With short-term memory loss. Diverticulosis With history of diverticulitis. Fibromyalgia GERD (gastroesophageal reflux disease) History of cervical cancer History of colon polyps Hx of deep venous thrombosis Hyperlipidemia Hypothyroidism Low hemoglobin Nicotine abuse Osteoarthritis Symptomatic PVCs On metoprolol 50 milligrams daily. Surgical History Surgical History History of arthroplasty of right knee History of left-sided carotid endarterectomy Status post cervical spinal fusion Status post cholecystectomy Status post left breast biopsy Status post partial hysterectomy For cervical cancer. Status post right rotator cuff repair Status post tonsillectomy Status post tubal ligation Social History Social History Social History: The patient is . She lives with her son in [place]. She designates her sons, Laith Howard and Kemal Islas, as her surrogate decision makers and she wishes to be a full code. She has smoked at least 1 pack of cigarettes per day for almost 40 years. She denies alcohol and drug abuse. Years smoked: 30 Smoking status: Current every day smoker
[2020-02-03] MEDS: ACETAMINOPHEN 500 MG TABLET 1000 MG PO (20:22)
== END 2020-02-03 22:11 | disposition home or self-care (01) ==
PROVIDERS: Emergency Provider Emergency Medicine; PCP Internal Medicine
DX: S09.90XA Unspecified injury of head, initial encounter (principal); S16.1XXA Strain of muscle, fascia and tendon at neck level, initial encounter; T14.8XXA Other injury of unspecified body region, initial encounter; I69.911 Memory deficit following unspecified cerebrovascular disease; M79.7 Fibromyalgia; K21.9 Gastro-esophageal reflux disease without esophagitis; Z85.41 Personal history of malignant neoplasm of cervix uteri; Z86.010 Personal history of colon polyps; Z86.718 Personal history of other venous thrombosis and embolism; E78.5 Hyperlipidemia, unspecified; E03.9 Hypothyroidism, unspecified; M19.90 Unspecified osteoarthritis, unspecified site; Z98.1 Arthrodesis status; Z79.01 Long term (current) use of anticoagulants; F17.210 Nicotine dependence, cigarettes, uncomplicated; M47.812 Spondylosis without myelopathy or radiculopathy, cervical region; Z79.82 Long term (current) use of aspirin; W17.89XA Other fall from one level to another, initial encounter
CPT/HCPCS: 70450; 72125; 73030; 73130; 73140; 73564; 73610; 99284; A9270

== ENCOUNTER 2020-02-25 10:04 | Outpatient (CLI) | payer MEDICARE, MEDICAID, SELFPAY ==
[2020-02-25 10:51] LABS: Alanine Aminotransferase 21 U/L (4-35); Albumin Level 4.5 g/dL (3.5-5.1); Alkaline Phosphatase 122 U/L (38-126); Aspartate Amino Transferase 24 U/L (14-36); Bilirubin,Total 0.4 mg/dL (0.2-1.3); Blood Urea Nitrogen 8 mg/dL (7-17); Calcium 9.4 mg/dL (8.4-10.2); Carbon Dioxide 31 mmol/L (22-30); Chloride 104 mmol/L (98-107); Estimated Glomerular Filt Rate 51; Glucose 75 mg/dL (65-105); Potassium 4.1 mmol/L (3.4-5.0); Sodium 140 mmol/L (137-145)
[2020-02-25 11:08] LABS: Vitamin D 25 Hydroxy 30.5 ng/mL
== END 2020-02-25 10:05 | disposition home or self-care (01) ==
PROVIDERS: PCP Internal Medicine; Visit Provider Internal Medicine
DX: E53.8 Deficiency of other specified B group vitamins (principal); E55.9 Vitamin D deficiency, unspecified; E03.9 Hypothyroidism, unspecified; Z13.6 Encounter for screening for cardiovascular disorders; Z79.899 Other long term (current) drug therapy
CPT/HCPCS: 36415; 80053; 82306; 82607; 84443

== ENCOUNTER 2020-03-23 13:12 | Emergency (ER) | payer MEDICARE, MEDICAID, SELFPAY ==
[2020-03-23] VITALS (12 sets, daily range): BP systolic 91–136; BP diastolic 55–64; PULSE 56–80; RESP 17–24; TEMP 36.2; O2SAT 93–99
--- NOTE | ~2020-03-23 | XR_ITS ---
EXAMINATION: XR chest 2V DATE: 03/23/2020 14:40 INDICATION: Syncope. TECHNIQUE: Frontal and lateral views of the chest were obtained. COMPARISON: Chest single view 11/19/2019 FINDINGS: The chest demonstrates clear lungs without pneumonia, pleural effusion, or pneumothorax. Th e heart size is normal. There are changes of anterior fusion procedure in cervical spine. Surgical cl ips in the right upper quadrant are likely from cholecystectomy. IMPRESSION: 1. No acute cardiopulmonary disease. Reviewed, dictated and finalized at location A.
--- NOTE | ~2020-03-23 | CT_ITS ---
EXAMINATION: CT brain wo con DATE: 03/23/2020 14:32 INDICATION: Syncope. TECHNIQUE: Computed tomography (CT) of the head was performed without intravenous contrast. The mA wa s adjusted according to patient size. Iterative reconstruction technique was employed. The dose-lengt h product was 605.33 mGy-cm. COMPARISON: Head CT 02/03/2020 FINDINGS: There is no intracranial hemorrhage, acute infarction, or abnormal intracranial mass lesion . The ventricles are normal in size. There is mild mucosal thickening in the paranasal sinuses. The m astoid air cells are normal. The orbits are normal. IMPRESSION: 1. Normal brain. Reviewed, dictated and finalized at location A. IMPRESSION: 1. Normal brain.
--- NOTE | 2020-03-23 13:15 | ECG_ITS ---
Measurements Intervals Erwin Rate: 56 P: 47 IA: 206 QRS: -3 QRSD: 78 T: 70 QT: 418 QTc: 405 Interpretive Statements SINUS BRADYCARDIA RSR' IN V1 OR V2, PROBABLY NORMAL VARIANT LOW QRS VOLTAGE IN PRECORDIAL LEADS BORDERLINE R WAVE PROGRESSION, ANTERIOR LEADS BASELINE ARTIFACT- I, III, AVL BORDERLINE ECG Electronically Signed On 03-23-2020 13:38:31 CDT by Brandon Wolf D.O.
[2020-03-23 13:35] LABS: Glucose Point of Care 82 (65-105)
[2020-03-23 13:43] LABS: Basophils Percent Auto 0.6 % (0.2-1.2); Eosinophils Absolute Auto 0.2 K/mm3 (0-0.3); Eosinophils Percent Auto 2.8 % (0-4.4); Hematocrit 40.3 % (37.0-47.0); Hemoglobin 13.2 g/dL (12.0-15.0); Immature Granulocyte Absolute 0.02 K/mm3 (0.00-0.031); Immature Granulocyte Percent A 0.3 % (0-0.5); Lymphocytes Absolute Auto 2.19 K/mm3 (0.9-3.2); Lymphocytes Percent Auto 31.2 % (18.3-44.2); Mean Corpuscular HGB Conc 32.8 g/dl (32-36); Mean Corpuscular Hemoglobin 28.4 pg (26-34); Mean Corpuscular Volume 86.7 fl (80-100); Mean Platelet Volume 10.1 fl (7.4-10.4); Monocytes Absolute Auto 0.4 K/mm3 (0.1-0.6); Monocytes Percent Auto 6.3 % (2.6-8.5); Neutrophils Absolute Auto 4.1 K/mm3 (1.3-6.7); Neutrophils Percent Auto 58.8 % (45.5-73.1); Platelet Count Result 257 k/mm3 (150-375); Red Blood Count 4.65 M/mm3 (4.2-5.4); Red Cell Distribution Width 13.7 % (11.5-14.5)
[2020-03-23 13:54] LABS: Blood Urea Nitrogen 12 mg/dL (7-17); Calcium 8.9 mg/dL (8.4-10.2); Carbon Dioxide 25 mmol/L (22-30); Chloride 107 mmol/L (98-107); Estimated CRCL calculation 51 ml/min; Estimated Glomerular Filt Rate 51; Glucose 92 mg/dL (65-105); Potassium 4.2 mmol/L (3.4-5.0); Sodium 139 mmol/L (137-145)
[2020-03-23 14:07] LABS: NT Pro B Type Natriuretic Pept 425 PG/ML (5-100); Troponin I < 0.012 ng/mL (0.000-0.034)
--- NOTE | 2020-03-23 14:44 | ED.SYNCOPE ---
HPI - Syncope General Chief Complaint: Syncope Stated Complaint: syncope Time Seen by Provider: 03/23/20 14:10 Source: patient Mode of arrival: ambulatory Limitations: other (patient is unsure of incident) History of Present Illness HPI narrative: This is a 59 year old female that presents to the ER for possible syncopal episode today. Patient reports she was sitting outside and then remembers her son trying to wake her up. Her son says it was very difficult to awake her. Patient thinks that she fell asleep. Son was worried that she had a syncopal episode. Reports dyspnea which has been ongoing for a couple of months. Also reports some lower extremity edema. Patient denies fever, chest pain, vision changes, vomiting, numbness or weakness. Related Data Home Medications Medication Instructions Recorded Confirmed rivaroxaban 20 mg tablet 20 mg PO DAILY 07/29/19 02/25/20 ergocalciferol (vitamin D2) 1,250 50,000 unit PO MONTHLY cap 08/04/19 02/25/20 mcg (50,000 unit) capsule folic acid 1 mg tablet 1 mg PO DAILY 08/04/19 02/25/20 aspirin 81 mg PO DAILY 11/19/19 02/25/20 cyanocobalamin (vitamin B-12) 1,000 mcg PO .COMPLEX 02/25/20 1,000 mcg tablet Allergies Allergy/AdvReac Type Severity Reaction Status Date / Time penicillin G Allergy Severe ANAPHYLACTI Verified 03/23/20 13:38 C codeine Allergy Unknown Stopped Verified 03/23/20 13:38 Breathing hydromorphone Allergy Unknown Rash Verified 03/23/20 13:38 latex Allergy Unknown Swelling Verified 03/23/20 13:38 levofloxacin Allergy Unknown BLISTERS Verified 03/23/20 13:38 ON BODY morphine Allergy Unknown Low blood Verified 03/23/20 13:38 pressure oxycodone Allergy Unknown Rash Verified 03/23/20 13:38 Penicillins Allergy Unknown Stopped Verified 03/23/20 13:38 Breathing vancomycin Allergy Unknown Red Pablito Verified 03/23/20 13:38 DRINKING ALCOHOL Allergy Unknown BLISTERS Uncoded 03/23/20 13:38 ON BODY Review of Systems Review of Systems: Narrative: CONSTITUTIONAL: Denies fever EYES: Denies visual changes CARDIOVASCULAR: Reports edema. Denies chest pain, palpitations RESPIRATORY: Reports dyspnea. Denies cough GASTROINTESTINAL: Denies abdominal pain, nausea, vomiting NEUROLOGIC: Denies headache, numbness, or weakness. All systems reviewed & are unremarkable except as noted in HPI and below PMFSH Social History Social History Social History: The patient is . She lives with her son in [place]. She designates her sons, Laith Howard and Kemal Islas, as her surrogate decision makers and she wishes to be a full code. She has smoked at least 1 pack of cigarettes per day for almost 40 years. She denies alcohol and drug abuse. Years smoked: 30 Smoking status: Current every day smoker Gender identity (if verbalized by the patient): Female Spiritual care concerns: Yes Agree to blood products: Yes Exam Narrative: Exam Narrative: GENERAL: Well-appearing, well-nourished, and in no acute distress. HEAD: Normocephalic, atraumatic. EYES: PERRLA and EOMI. ENT: Nares clear, no rhinorrhea or epistaxis. Mucous membranes moist. Oropharynx without tonsillar hypertrophy exudate or other lesions. Bilateral TMs pearly day non-bulging NECK: Supple. No adenopathy or masses. CHEST: Clear to auscultation. No respiratory distress. No wheezes rales or rhonchi HEART: Regular rate and rhythm. No murmur heard. Normal peripheral pulses. EXTREMITIES: Normal range of motion. No edema. Strength equal in bilateral upper and lower extremities SKIN: Warm, dry, no rash. NEURO: No focal deficits. Alert and oriented x3. CN II-XII grossly intact PSYCH: Normal mood and affect Course Consultations Consultation #1: Did speak with her academic success coordinator, Dr. Wolf. Will follow-up in clinic to get her scheduled for sleep study. Date: 03/23/20 Time: 17:38 Vital Signs Vital signs: Vital Signs Temperature 97.1
[2020-03-23 15:01] LABS: Creatine Kinase 66 U/L (30-135)
[2020-03-23 15:02] LABS: Partial Thromboplastin Time 44.9 SECONDS (22.3-36.8)
[2020-03-23 15:16] LABS: D Dimer 0.27 ug/mL (<0.48)
[2020-03-23 17:12] LABS: Troponin I < 0.012 ng/mL (0.000-0.034)
== END 2020-03-23 17:46 | disposition home or self-care (01) ==
PROVIDERS: Physician Assistant; Emergency Provider Family Medicine; PCP Internal Medicine
DX: R40.0 Somnolence (principal); R06.00 Dyspnea, unspecified; Z79.82 Long term (current) use of aspirin; Z79.01 Long term (current) use of anticoagulants; I25.10 Atherosclerotic heart disease of native coronary artery without angina pectoris; I69.911 Memory deficit following unspecified cerebrovascular disease; M79.7 Fibromyalgia; K21.9 Gastro-esophageal reflux disease without esophagitis; Z86.718 Personal history of other venous thrombosis and embolism; E03.9 Hypothyroidism, unspecified; M19.90 Unspecified osteoarthritis, unspecified site; Z85.41 Personal history of malignant neoplasm of cervix uteri; Z86.010 Personal history of colon polyps; Z96.651 Presence of right artificial knee joint; Z98.1 Arthrodesis status
CPT/HCPCS: 36415; 70450; 71046; 80048; 82550; 82948; 83880; 84484; 85025; 85380; 85610; 85730; 93005; 99284

== ENCOUNTER 2020-04-20 10:46 | Outpatient (CLI) | payer MEDICARE, MEDICAID, SELFPAY ==
--- NOTE | ~2020-04-20 | XR_ITS ---
XR lumbar spine 2-3V DATE: 04/20/2020 11:10 INDICATION: Fall. Back pain. TECHNIQUE: AP, lateral, coned lateral lumbosacral views COMPARISON: 01/29/2016 lumbar spine FINDINGS: Surgical clips, right upper quadrant, consistent with cholecystectomy. Included T11-L5 pedicles are intact. No fracture or bone destruction. No spondylolisthesis. There is moderate degenerative disease at L1-2, L2-3 and mild degenerative disc disease at L3-4. The sacroiliac joints are normal. IMPRESSION: Mild to moderate degenerative disc disease of the upper and mid lumbar spine Reviewed, dictated and finalized at location B. IMPRESSION: Mild to moderate degenerative disc disease of the upper and mid lum bar spine
--- NOTE | ~2020-04-20 | XR_ITS ---
XR hip RT min 2V DATE: 04/20/2020 11:10 INDICATION: Fall one week ago. Right hip pain TECHNIQUE: AP, lateral, crosstable lateral views of right hip COMPARISON: None FINDINGS: No fracture or dislocation, avascular necrosis or bone destruction. Right hip joint space i s well preserved. The right sacroiliac joint is intact. IMPRESSION: No significant abnormality Reviewed, dictated and finalized at location B. IMPRESSION: No significant abnormality
--- NOTE | ~2020-04-20 | XR_ITS ---
XR shoulder RT min 2V DATE: 04/20/2020 11:10 INDICATION: Fall. Right shoulder injury, pain TECHNIQUE: 4 views COMPARISON: None FINDINGS: Status post anterior cervical spine fusion at C5-6. There is mild degenerative change of the right acromioclavicular joint. Normal alignment at the acrom ion clinical and glenohumeral joints. No fracture or dislocation, periosteal reaction or bone destruc tion or abnormal soft tissue calcification of the right shoulder. IMPRESSION: Mild degenerative change at the right acromioclavicular joint Status post anterior cervical spine fusion at C5-6 Reviewed, dictated and finalized at location B.
== END 2020-04-20 10:47 | disposition home or self-care (01) ==
LOC: ANHIMG 10:56
PROVIDERS: PCP Internal Medicine; Visit Provider Internal Medicine
DX: M25.511 Pain in right shoulder (principal); M54.5 Low back pain; M51.36 Other intervertebral disc degeneration, lumbar region; M25.551 Pain in right hip
CPT/HCPCS: 72100; 73030; 73502

== ENCOUNTER 2020-05-09 12:59 | Outpatient (CLI) | payer MEDICARE, MEDICAID, SELFPAY ==
--- NOTE | ~2020-05-09 | XR_ITS ---
EXAMINATION: XR shoulder LT min 2V DATE: 05/09/2020 13:27 INDICATION: Left shoulder pain. TECHNIQUE: 4 views of left shoulder were obtained. COMPARISON: Left shoulder radiographs 02/03/2020 FINDINGS: Bone alignment is normal. No fracture. There is mild osteoarthritis of glenohumeral joint a nd acromioclavicular joint. There are changes of anterior fusion procedure in cervical spine. IMPRESSION: 1. Mild polyarticular osteoarthritis. Reviewed, dictated and finalized at location B.
--- NOTE | ~2020-05-09 | XR_ITS ---
EXAMINATION: XR foot LT min 3V DATE: 05/09/2020 13:27 INDICATION: Left foot pain TECHNIQUE: Dorsoplantar, two oblique and lateral views of the left foot were obtained. COMPARISON: None. FINDINGS: Alignment is normal. No fracture. Joint spaces are normal. No cortical erosions or periosteal reactio n. Soft tissues are unremarkable. IMPRESSION: 1. Negative left foot radiographs. Reviewed, dictated and finalized at location A.
== END 2020-05-09 13:00 | disposition home or self-care (01) ==
PROVIDERS: PCP Internal Medicine; Visit Provider Internal Medicine
DX: S99.929A Unspecified injury of unspecified foot, initial encounter (principal); M25.519 Pain in unspecified shoulder; M19.012 Primary osteoarthritis, left shoulder
CPT/HCPCS: 73030; 73630

== ENCOUNTER 2020-05-23 01:33 | Outpatient (CLI) | payer MEDICARE, MEDICAID, SELFPAY ==
[2020-05-23 16:32] LABS: SARS-CoV-2 RNA PCR Negative
== END 2020-05-23 01:34 | disposition home or self-care (01) ==
LOC: ANHCOVIDDT 01:33
PROVIDERS: PCP Internal Medicine; Visit Provider Internal Medicine Critical Care Medicine
DX: Z20.828 Contact with and (suspected) exposure to other viral communicable diseases (principal)
CPT/HCPCS: 87635; C9803; U0003

== ENCOUNTER 2020-05-25 08:06 | Outpatient (CLI) | payer MEDICARE, MEDICAID, SELFPAY ==
--- NOTE | 2020-06-03 03:17 | SLEEP_ITS ---
Basic Nocturnal Polysomnogram DATE OF STUDY: 05/25/2020 ORDERING PHYSICIAN: Dr. Brandon Wolf. REASON FOR THE STUDY: Hypersomnia. HISTORY: The patient is a 60-year-old female, 64 inches tall, weighing 175 pounds with a body mass index of 30. She has a history of complex sleep apnea in 2006 treated with ASV. She has significant daytime fatigue, feels tired all day every day. She has difficulty falling asleep, and she wakes during the night. She wakes up in the enamel buffer hours and she has excessive daytime sleepiness. This has been going on for 1-2 years. She occasionally awakens at night short of breath, occasionally awakens at night with heartburn, belching, or coughing. She does not snore often, and it is never loud enough that others complain about it. She frequently has trouble sleeping with a cold, rarely wakes up gasping for breath at night, rarely has breathing problems at night observed by others. She frequently sweats excessively at night, frequently notices her heart pounding or beating irregularly at night and frequently falls asleep during the day. She occasionally falls asleep involuntarily, but never while driving. She rarely falls asleep during physical effort. She does not indicate whether or not she has loss of muscle tone with strong emotion. She does not have daytime difficulties due to sleepiness, and she notes that she is disabled. She rarely feels paralyzed on waking or falling asleep. She does not have vivid dreamlike scenes upon awakening or falling asleep. She is never afraid to go to sleep. She rarely has nightmares and rarely remembers her dreams. She occasionally has racing thoughts. She rarely feels sad or depressed. She frequently has anxiety, occasionally has muscular tension, frequently notices parts of her body jerking. She occasionally kicks at night, occasionally has crawly achy feelings in her legs and occasionally has leg pain at night. She never has morning jaw pain and does not grind her teeth at night. She frequently is bothered by pain during the day, occasionally awakens with this at night. She frequently wakes up feeling stiff in the morning with sore achy muscles and pain in the neck and spine joints. She has palpitations, fatigue, and memory problems. Bedtime is variable, falls asleep quickly after taking a sleeping pill. She wakes up during the night, usually to get something to drink or use the bathroom. This goes on intermittently throughout the night. She wakes in the morning between 6 and 8 a.m. She does take naps. A short nap is not refreshing. She is drowsy in the morning for 3 hours or longer. She feels better in the evening than earlier in the day. MEDICAL COMORBIDITIES: Arthritis, stroke, emphysema, complex sleep apnea diagnosed in 2006, use an ASV device which she lost in 2009 before moving to [place]. 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 MEDICATIONS: 1. Metoprolol 25 mg a day. 2. Rivaroxaban 20 mg a day. 3. Vitamin B12 1000 mcg daily. 4. Ergocalciferol (vitamin D2) 1250 mcg/50,000 units monthly. 5. Folic acid 1 mg a day. 6. Atorvastatin 40 mg a day. 7. Pantoprazole 20 mg a day. 8. Aspirin 81 mg a day. 9. Albuterol sulfate 90 mcg per puff, 2 puffs q.6 hours p.r.n. shortness of breath. 10. Levothyroxine 75 mcg a day. HABITS: Tobacco, 1 pack a day for 35 years. Caffeine, soda daily. No alcohol or recreational drugs. DESCRIPTION OF THE STUDY: On the [place] Sleepiness Scale, the score is 17. This was conducted as an attended multichannel study in the lab using the [employer] [facility] system with EOG, EEG, submental EMG, EKG, nasal and oral airflow using thermistors and nasal pressure
== END 2020-05-25 08:07 | disposition home or self-care (01) ==
LOC: ANHCSM 08:06
PROVIDERS: PCP Internal Medicine; Visit Provider Internal Medicine Cardiovascular Disease
DX: G47.10 Hypersomnia, unspecified (principal)
CPT/HCPCS: 95810

== ENCOUNTER 2020-05-28 01:26 | Outpatient (CLI) | payer MEDICARE, MEDICAID, SELFPAY ==
[2020-05-28 18:03] LABS: SARS-CoV-2 RNA PCR Negative
== END 2020-05-28 01:27 | disposition home or self-care (01) ==
LOC: ANHCOVIDDT 01:26
PROVIDERS: PCP Internal Medicine; Visit Provider Internal Medicine Gastroenterology
DX: Z01.812 Encounter for preprocedural laboratory examination (principal); Z20.828 Contact with and (suspected) exposure to other viral communicable diseases
CPT/HCPCS: 87635; C9803; U0003

== ENCOUNTER 2020-05-31 01:31 | Day surgery (SDC) | payer MEDICARE, MEDICAID, SELFPAY ==
[2020-05-19 11:17] VITALS: BMI 29.5
--- NOTE | 2020-05-31 10:29 | PM.HPGS ---
History of Present Illness History of Present Illness Consent: Risks, benefits, and alternatives have been discussed and questions answered. Patient agrees to proceed with procedure. Chief complaint: neoplasm screening Narrative: Gege Vidal is a 60 year old female Here for screening colonoscopy [facility] Past Medical History Medical History Carotid artery disease Status post left carotid endarterectomy. Current use of senior living anticoagulation CVA (cerebral vascular accident) With short-term memory loss. Diverticulosis With history of diverticulitis. Fibromyalgia GERD (gastroesophageal reflux disease) History of cervical cancer History of colon polyps Hx of deep venous thrombosis Hyperlipidemia Hypothyroidism Low hemoglobin Nicotine abuse Osteoarthritis Symptomatic PVCs On metoprolol 50 milligrams daily. Surgical History Surgical History History of arthroplasty of right knee History of left-sided carotid endarterectomy Status post cervical spinal fusion Status post cholecystectomy Status post left breast biopsy Status post partial hysterectomy For cervical cancer. Status post right rotator cuff repair Status post tonsillectomy Status post tubal ligation Family History Family History Mother Depression Family history of diabetes mellitus in first degree relative Father Family history of diabetes mellitus in first degree relative Acute myocardial infarction Other Family history of allergic disorder Family history of cardiovascular disease Family history of malignant neoplasm Hypertension Social History Social History Social History: The patient is . She lives with her son in [place]. She designates her sons, Laith Howard and Kemal Islas, as her surrogate decision makers and she wishes to be a full code. She has smoked at least 1 pack of cigarettes per day for almost 40 years. She denies alcohol and drug abuse. Smoking packs per day: 0.5 Smoking cigarettes per day: 10.0 Years smoked: 30 Smoking pack-years: 15.00 Smoking status: Current every day smoker Tobacco type: cigarettes Alcohol intake: never Substance use: current Substance use type: does not use Living arrangements: with family Gender identity (if verbalized by the patient): Female Spiritual care concerns: No Agree to blood products: Yes Meds Home Medications and Allergies Home Medications Medication Instructions Recorded Confirmed Type rivaroxaban 20 mg tablet 20 mg PO DAILY 07/29/19 05/19/20 History ergocalciferol (vitamin D2) 1,250 50,000 unit PO MONTHLY cap 08/04/19 05/19/20 History mcg (50,000 unit) capsule folic acid 1 mg tablet 1 mg PO DAILY 08/04/19 05/19/20 History atorvastatin 40 mg tablet 40 mg PO DAILY #90 tablet 11/16/19 05/19/20 Rx pantoprazole 20 mg tablet,delayed 20 mg PO QAM #90 tablet 11/16/19 05/19/20 Rx release aspirin 81 mg PO DAILY 11/19/19 05/19/20 History albuterol sulfate 90 mcg/actuation 2 puff INHALATION Q6H #18 gm 02/02/20 05/19/20 Rx aerosol inhaler cyanocobalamin (vitamin B-12) 1,000 mcg PO .COMPLEX 02/25/20 05/19/20 History 1,000 mcg tablet levothyroxine 75 mcg tablet 75 mcg PO DAILY #90 tablet 02/25/20 05/19/20 Rx nebivolol 5 mg tablet 5 mg PO DAILY #30 tablet 03/01/20 05/19/20 Rx doxycycline hyclate 100 mg capsule 100 mg PO BID #20 cap 05/10/20 05/19/20 Rx nystatin 1 applic TOPICAL BID PRN 05/19/20 05/19/20 History Allergies Allergy/AdvReac Type Severity Reaction Status Date / Time penicillin G Allergy Severe ANAPHYLACTI Verified 05/31/20 10:18 C codeine Allergy Unknown Stopped Verified 05/31/20 10:18 Breathing hydromorphone Allergy Unknown Rash Verified 05/31/20 10:18 latex Allergy Unknown Swelling Verified
[2020-05-31 10:34] VITALS: BP 127/75; PULSE 56; RESP 18; TEMP 36.9; O2SAT 98
--- NOTE | 2020-05-31 10:34 | WPDANESEPPF ---
Anes - Initial Pre Proc Eval Procedure: Operation Date: 05/31/20 11:30 Proposed Procedures p Screening Colonoscopy - Nigel Box MD Date/Time: 05/31/20 10:34 Surgeon: Nigel Box MD Pre Op Diagnosis: neoplasm screening Patient Data Age: 60 Gender: F Height: 5 ft 4 in Weight: 78 kg Allergies Allergy/AdvReac Type Severity Reaction Status Date / Time penicillin G Allergy Severe ANAPHYLACTI Verified 05/31/20 10:18 C codeine Allergy Unknown Stopped Verified 05/31/20 10:18 Breathing hydromorphone Allergy Unknown Rash Verified 05/31/20 10:18 latex Allergy Unknown Swelling Verified 05/31/20 10:18 levofloxacin Allergy Unknown BLISTERS Verified 05/31/20 10:18 ON BODY morphine Allergy Unknown Low blood Verified 05/31/20 10:18 pressure oxycodone Allergy Unknown Rash Verified 05/31/20 10:18 Penicillins Allergy Unknown Stopped Verified 05/31/20 10:18 Breathing vancomycin Allergy Unknown Red Pablito Verified 05/31/20 10:18 DRINKING ALCOHOL Allergy Unknown BLISTERS Uncoded 05/31/20 10:18 ON BODY Home Medications Medication Instructions Recorded Confirmed Type rivaroxaban 20 mg tablet 20 mg PO DAILY 07/29/19 05/19/20 History ergocalciferol (vitamin D2) 1,250 50,000 unit PO MONTHLY cap 08/04/19 05/19/20 History mcg (50,000 unit) capsule folic acid 1 mg tablet 1 mg PO DAILY 08/04/19 05/19/20 History atorvastatin 40 mg tablet 40 mg PO DAILY #90 tablet 11/16/19 05/19/20 Rx pantoprazole 20 mg tablet,delayed 20 mg PO QAM #90 tablet 11/16/19 05/19/20 Rx release aspirin 81 mg PO DAILY 11/19/19 05/19/20 History albuterol sulfate 90 mcg/actuation 2 puff INHALATION Q6H #18 gm 02/02/20 05/19/20 Rx aerosol inhaler cyanocobalamin (vitamin B-12) 1,000 mcg PO .COMPLEX 02/25/20 05/19/20 History 1,000 mcg tablet levothyroxine 75 mcg tablet 75 mcg PO DAILY #90 tablet 02/25/20 05/19/20 Rx nebivolol 5 mg tablet 5 mg PO DAILY #30 tablet 03/01/20 05/19/20 Rx doxycycline hyclate 100 mg capsule 100 mg PO BID #20 cap 05/10/20 05/19/20 Rx nystatin 1 applic TOPICAL BID PRN 05/19/20 05/19/20 History Patient hx anesthesia problems: none Family hx anesthesia problems: none [facility] Past Medical History Medical History Carotid artery disease Status post left carotid endarterectomy. 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 Diverticulosis With history of diverticulitis. Fibromyalgia GERD (gastroesophageal reflux disease) History of cervical cancer History of colon polyps Hx of deep venous thrombosis Hyperlipidemia Hypothyroidism Low hemoglobin Nicotine abuse Osteoarthritis Symptomatic PVCs On metoprolol 50 milligrams daily. Surgical History Surgical History History of arthroplasty of right knee History of left-sided carotid endarterectomy Status post cervical spinal fusion Status post cholecystectomy Status post left breast biopsy Status post partial hysterectomy For cervical cancer. Status post right rotator cuff repair Status post tonsillectomy Status post tubal ligation Family History Family History Mother Depression Family history of diabetes mellitus in first degree relative Father Family history of diabetes mellitus in first degree relative Acute myocardial infarction Other Family history of allergic disorder Family history of cardiovascular disease Family history of malignant neoplasm Hypertension Social History Social History Social History: The patient is . She lives with her son in [place]. She designates her sons, Laith Howard and Kemal Islas, as her surrogate decision makers and she wishes to be a full code. She has smoked at least 1 pack of cigarettes per day
[2020-05-31] MEDS: LACTATED RINGERS 1,000 ML 150 ML IV CONT (10:51)
[2020-05-31 11:19] VITALS: BP 97/58; PULSE 49; RESP 22; O2SAT 100
[2020-05-31 11:29] VITALS: BP 105/50; PULSE 43; RESP 19; O2SAT 100
[2020-05-31 11:39] VITALS: BP 121/66; PULSE 52; RESP 20; O2SAT 99
== END 2020-05-31 11:57 | disposition home or self-care (01) ==
PROVIDERS: PCP Internal Medicine; Visit Provider Internal Medicine Gastroenterology
PROC: 0DJD8ZZ Inspection of Lower Intestinal Tract, Via Natural or Artificial Opening Endoscopic (ICD-10-PCS; CPT 45378; principal; 2020-05-31 11:30)
DX: Z12.11 Encounter for screening for malignant neoplasm of colon (principal); K57.30 Diverticulosis of large intestine without perforation or abscess without bleeding; K56.699 Other intestinal obstruction unspecified as to partial versus complete obstruction; I65.29 Occlusion and stenosis of unspecified carotid artery; I49.3 Ventricular premature depolarization; Z79.01 Long term (current) use of anticoagulants; Z86.73 Personal history of transient ischemic attack (TIA), and cerebral infarction without residual deficits; Z86.718 Personal history of other venous thrombosis and embolism; F17.210 Nicotine dependence, cigarettes, uncomplicated; M79.7 Fibromyalgia; E78.5 Hyperlipidemia, unspecified; E03.9 Hypothyroidism, unspecified; K21.9 Gastro-esophageal reflux disease without esophagitis; M19.90 Unspecified osteoarthritis, unspecified site
CPT/HCPCS: G0121; J2704; J7120

== ENCOUNTER 2020-07-18 09:58 | Outpatient (CLI) | payer MEDICARE, MEDICAID, SELFPAY ==
--- NOTE | ~2020-07-18 | CT_ITS ---
EXAMINATION: CT lung screening DATE: 07/18/2020 10:54 INDICATION: Personal history of tobacco dependence, current smoker with 30 pack year history TECHNIQUE: Computed tomography (CT) of the chest was performed without intravenous contrast. The dose -length product (DLP) was 128.04 mGy-cm. Automated exposure control and iterative reconstruction tech [employer] were employed. COMPARISON: 07/15/2019 FINDINGS: There are unchanged small nodules of the lungs. The largest is a 4 mm nodule of the right l ower lobe on image 78. There is mild emphysema. The lungs are free of acute opacities. There is no pl eural effusion or pneumothorax. No pathologically enlarged thoracic lymph nodes are identified. The h eart size is normal. There is a small sliding hiatal hernia. IMPRESSION: 1. Lung-RADS category 2: Benign appearance or behavior. Continue annual screening with noncontrast lo w-dose chest CT in 12 months. Reviewed, dictated and finalized at location A. RONMENTAL DEPARTMENT MANAGER IMPRESSION: 1. Lung-RADS category 2: Benign appearance or behavior. Continue annual screeni ng with noncontrast low-dose chest CT in 12 months.
--- NOTE | ~2020-07-18 | MM_ITS ---
EXAMINATION: MM screening meron BI w carolann HISTORY: Screening TECHNIQUE: Craniocaudal and mediolateral oblique 3-D tomosynthesis images were obtained and synthetic 2-D images were generated. CAD analysis was submitted and interpreted. COMPARISON: Comparison to multiple prior studies sequentially, with oldest reviewed study dated 03/04. BREAST PARENCHYMAL COMPOSITION: The breasts are heterogeneously dense, which may obscure small masses . FINDINGS: There is no evidence of suspicious mass, calcification, or architectural distortion to sugg est malignancy in either breast. There has been no suspicious interval change. IMPRESSION: 1. No mammographic evidence of malignancy. 2. Recommend routine screening mammography in one year. BI-RADS Category 1: Negative Reviewed, dictated and finalized at location A. ATORY GAME BIRD BIOLOGIST
== END 2020-07-18 09:59 | disposition home or self-care (01) ==
LOC: ANHIMG 10:01
PROVIDERS: PCP Internal Medicine; Visit Provider Internal Medicine Hematology & Oncology
DX: Z12.2 Encounter for screening for malignant neoplasm of respiratory organs (principal); Z87.891 Personal history of nicotine dependence; Z12.31 Encounter for screening mammogram for malignant neoplasm of breast
CPT/HCPCS: 77063; 77067; G0297

== ENCOUNTER 2020-07-19 11:46 | Outpatient (CLI) | payer MEDICARE, MEDICAID, SELFPAY | END 2020-07-19 11:47 | disposition home or self-care (01) | LOC: ANHLAB 11:49 | PROVIDERS: PCP Internal Medicine; Visit Provider Internal Medicine | DX: E03.9 Hypothyroidism, unspecified (principal) | CPT/HCPCS: 36415; 84443 ==

== ENCOUNTER 2020-07-26 14:20 | Outpatient (CLI) | payer MEDICARE, MEDICAID, SELFPAY ==
--- NOTE | ~2020-07-26 | US_ITS ---
EXAMINATION: US venous doppler [facility] DATE: 07/26/2020 15:07 INDICATION: Left lower limb focal swelling. TECHNIQUE: Grayscale ultrasound images without and with compression and Doppler ultrasound images of the left lower extremity veins were obtained. COMPARISON: None. FINDINGS: The visualized portions of left common femoral vein, profunda (deep) femoral vein, femoral vein, popl iteal vein, peroneal veins, posterior tibial veins, and greater saphenous vein outflow are patent. Th ere is hyperechoic subcutaneous fat in the patient's area of concern in left inguinal region. IMPRESSION: 1. No deep venous thrombosis. 2. Hyperechoic subcutaneous fat in left inguinal region, consistent with inflammation. Reviewed, dictated and finalized at location B. CLIMBING TEAM MEMBER IMPRESSION: 1. No deep venous thrombosis. 2. Hyperechoic subcutaneous fat in left inguinal region, consistent with inflam mation.
== END 2020-07-26 14:21 | disposition home or self-care (01) ==
LOC: ANHIMG 14:28
PROVIDERS: PCP Internal Medicine; Visit Provider Internal Medicine
DX: R19.09 Other intra-abdominal and pelvic swelling, mass and lump (principal); Z86.718 Personal history of other venous thrombosis and embolism
CPT/HCPCS: 93971

== ENCOUNTER 2020-08-01 13:41 | Outpatient (CLI) | payer MEDICARE, MEDICAID, SELFPAY ==
[2020-08-01 13:53] LABS: Basophils Percent Auto 0.6 % (0.2-1.2); Eosinophils Absolute Auto 0.2 K/mm3 (0-0.3); Eosinophils Percent Auto 3.5 % (0-4.4); Hematocrit 40.5 % (37.0-47.0); Immature Granulocyte Absolute 0.02 K/mm3 (0.00-0.031); Immature Granulocyte Percent A 0.3 % (0-0.5); Lymphocytes Absolute Auto 2.25 K/mm3 (0.9-3.2); Lymphocytes Percent Auto 32.6 % (18.3-44.2); Mean Corpuscular HGB Conc 32.1 g/dl (32-36); Mean Corpuscular Hemoglobin 28.7 pg (26-34); Mean Corpuscular Volume 89.4 fl (80-100); Mean Platelet Volume 9.9 fl (7.4-10.4); Monocytes Absolute Auto 0.4 K/mm3 (0.1-0.6); Monocytes Percent Auto 6.2 % (2.6-8.5); Neutrophils Absolute Auto 3.9 K/mm3 (1.3-6.7); Neutrophils Percent Auto 56.8 % (45.5-73.1); Platelet Count Result 258 k/mm3 (150-375); Red Blood Count 4.53 M/mm3 (4.2-5.4); Red Cell Distribution Width 13.4 % (11.5-14.5); White Blood Count 6.9 K/mm3 (4.5-10.0)
[2020-08-01 13:57] LABS: Blood Urea Nitrogen 12 mg/dL (8-26); Carbon Dioxide 26 mmol/L (22-30); Chloride 103 mmol/L (98-109); Estimated Glomerular Filt Rate 51; Glucose 85 mg/dL (70-105); Potassium 3.7 mmol/L (3.5-4.9); Sodium 141 mmol/L (138-146)
[2020-08-01 16:36] LABS: Alanine Aminotransferase 20 U/L (4-35); Albumin Level 4.2 g/dL (3.5-5.1); Alkaline Phosphatase 100 U/L (38-126); Anion Gap 7 mmol/L (8-16); Aspartate Amino Transferase 24 U/L (14-36); Bilirubin,Total 0.5 mg/dL (0.2-1.3); Blood Urea Nitrogen 12 mg/dL (7-17); Calcium 9.2 mg/dL (8.4-10.2); Carbon Dioxide 28 mmol/L (22-30); Chloride 105 mmol/L (98-107); Estimated Glomerular Filt Rate 57; Glucose 92 mg/dL (65-105); Sodium 140 mmol/L (137-145)
== END 2020-08-01 13:42 | disposition home or self-care (01) ==
PROVIDERS: PCP Internal Medicine; Visit Provider Internal Medicine Hematology & Oncology
DX: I82.501 Chronic embolism and thrombosis of unspecified deep veins of right lower extremity (principal); D68.69 Other thrombophilia
CPT/HCPCS: 36415; 80048; 80053; 85025

== ENCOUNTER 2020-08-05 10:42 | Outpatient (NON) | payer MEDICARE, MEDICAID, SELFPAY ==
[2020-08-06 06:46] LABS: SARS-CoV-2 RNA PCR Negative
== END 2020-08-05 10:43 ==
LOC: ANHCOVIDDT 10:43
PROVIDERS: PCP Internal Medicine; Visit Provider Internal Medicine
DX: Z20.828 Contact with and (suspected) exposure to other viral communicable diseases (principal)
CPT/HCPCS: 87635; C9803; U0003

== ENCOUNTER 2020-08-27 10:21 | Outpatient (CLI) | payer MEDICARE, MEDICAID, SELFPAY ==
--- NOTE | ~2020-08-27 | MR_ITS ---
EXAMINATION: MR shoulder LT wo con DATE: 08/27/2020 11:27 INDICATION: Left shoulder pain post fall. Limited range of motion. TECHNIQUE: Magnetic resonance imaging (MRI) of the left shoulder was performed without intravenous co ntrast. Sequences included axial PD-weighted FS FSE, coronal oblique PD-weighted FS FSE, coronal obli que T2-weighted FS FSE, sagittal PD-weighted FS FSE, and sagittal T1-weighted SE. COMPARISON: None. FINDINGS: Coracoacromial arch: The acromion undersurface is curved in morphology (type II). The coracoacromial ligament is normal. T here is marrow edema and mild cystic change at the lateral head of the left clavicle which appears di sproportionate to the relatively mild osteoarthritis which could be seen in the setting of posttrauma tic distal clavicular osteolysis. Rotator cuff: The supraspinatus, infraspinatus and teres minor tendons are normal. The subscapularis tendon is norm al. Normal rotator cuff muscle bulk and signal. Biceps tendon, glenoid labrum and glenohumeral cartilage: Long head of the biceps tendon is normal. Glenoid labrum is normal. Glenohumeral cartilage is normal. Fluid: Physiologic amount of fluid in the glenohumeral joint and biceps tendon sheath. No loose osteochondra l bodies. Mild increased fluid signal in the subacromial/subdeltoid bursa consistent with minimal bur sitis. Bones: Aside from at the lateral clavicle there is normal marrow signal. No fracture or pathologic marrow re placing process. IMPRESSION: 1. There are edema and mild cystic change at the lateral head of the left clavicle which is dispropor tionate to the relatively mild acromioclavicular osteoarthritis and suggests distal clavicular osteol ysis related to the reported prior trauma. 2. Minimal subacromial/subdeltoid bursitis. Reviewed, dictated and finalized at location B. ER AIRCRAFT IMPRESSION: 1. There are edema and mild cystic change at the lateral head of the left clavi max which is disproportionate to the relatively mild acromioclavicular osteoart hritis and suggests distal clavicular osteolysis related to the reported prior trauma. 2. Minimal subacromial/subdeltoid bursitis.
== END 2020-08-27 10:22 | disposition home or self-care (01) ==
PROVIDERS: PCP Internal Medicine; Visit Provider Internal Medicine
DX: M25.512 Pain in left shoulder (principal); R60.9 Edema, unspecified; M75.52 Bursitis of left shoulder
CPT/HCPCS: 73221

== ENCOUNTER → 2020-10-25 03:57 | Outpatient (CLI) | payer MEDICARE, MEDICAID, SELFPAY ==
[2020-10-26 18:18] LABS: SARS-CoV-2 RNA PCR Negative
== END ==
PROVIDERS: Family Provider Internal Medicine; PCP Internal Medicine; Visit Provider Internal Medicine Gastroenterology
DX: Z01.812 Encounter for preprocedural laboratory examination (principal); Z20.822 Contact with and (suspected) exposure to COVID-19
CPT/HCPCS: C9803; U0003; U0005

== ENCOUNTER 2020-10-28 01:26 | Day surgery (SDC) | payer MEDICARE, MEDICAID, SELFPAY ==
[2020-10-12 13:33] VITALS: BMI 32.7
[2020-10-28 08:59] VITALS: BP 138/71; PULSE 71; RESP 18; TEMP 35.8; O2SAT 98; BMI 32.0
[2020-10-28] MEDS: LACTATED RINGERS 1,000 ML 150 ML IV CONT (09:09)
--- NOTE | 2020-10-28 10:06 | WPDANESEPPF ---
Anes - Initial Pre Proc Eval Procedure: Operation Date: 10/28/20 10:00 Proposed Procedures p Colonoscopy - Ashwin Ko MD Date/Time: 10/28/20 10:06 Surgeon: Ashwin Ko MD Pre Op Diagnosis: Positive Cologard Patient Data Age: 60 Gender: F Height: 5 ft 4 in Weight: 84.6 kg Last Vital Signs Temp 96.5 F L 10/28/20 08:59 Pulse 71 10/28/20 08:59 Resp 18 10/28/20 08:59 BP 138/71 10/28/20 08:59 Pulse Ox 98 10/28/20 08:59 Allergies Allergy/AdvReac Type Severity Reaction Status Date / Time penicillin G Allergy Severe ANAPHYLACTI Verified 10/28/20 08:57 C codeine Allergy Unknown Stopped Verified 10/28/20 08:57 Breathing hydromorphone Allergy Unknown Rash Verified 10/28/20 08:57 latex Allergy Unknown Swelling Verified 10/28/20 08:57 levofloxacin Allergy Unknown BLISTERS Verified 10/28/20 08:57 ON BODY morphine Allergy Unknown Low blood Verified 10/28/20 08:57 pressure oxycodone Allergy Unknown Rash Verified 10/28/20 08:57 Penicillins Allergy Unknown Stopped Verified 10/28/20 08:57 Breathing vancomycin Allergy Unknown Red Pablito Verified 10/28/20 08:57 DRINKING ALCOHOL Allergy Unknown BLISTERS Uncoded 10/28/20 08:57 ON BODY Home Medications Medication Instructions Recorded Confirmed Type rivaroxaban 20 mg tablet 20 mg PO DAILY 07/29/19 10/28/20 History ergocalciferol (vitamin D2) 1,250 50,000 unit PO MONTHLY cap 08/04/19 10/28/20 History mcg (50,000 unit) capsule folic acid 1 mg tablet 1 mg PO DAILY 08/04/19 10/28/20 History aspirin 81 mg PO DAILY 11/19/19 10/28/20 History cyanocobalamin (vitamin B-12) 1,000 mcg PO .COMPLEX 02/25/20 10/28/20 History 1,000 mcg tablet nebivolol 5 mg tablet 5 mg PO DAILY #30 tablet 03/01/20 10/28/20 Rx atorvastatin 40 mg tablet See Rx Instructions .ROUTE 06/09/20 10/28/20 Rx .COMPLEX #90 tablet pantoprazole 20 mg tablet,delayed See Rx Instructions .ROUTE 06/09/20 10/28/20 Rx release .COMPLEX #90 tablet levothyroxine 75 mcg tablet 75 mcg PO DAILY #90 tablet 09/05/20 10/28/20 Rx albuterol sulfate [ProAir HFA] 2 puff INHALATION Q6H PRN 10/12/20 10/28/20 History Patient hx anesthesia problems: none Family hx anesthesia problems: none PMF[facility] Past Medical History Medical History (Updated 10/06/20 @ 10:19 by Ashwin Ko MD) Adult hypothyroidism Bradycardia Carotid artery disease Status post left carotid endarterectomy. 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 Diverticulosis With history of diverticulitis. Dizziness Dysphagia Fibromyalgia GERD (gastroesophageal reflux disease) History of cervical cancer History of colon polyps History of colon polyps Hx of deep venous thrombosis Hyperglycemia Hyperlipidemia Hypersomnia Hypothyroidism Low hemoglobin Mouth pain Nicotine abuse Obesity On supervisor intermediates drug therapy Osteoarthritis Other and unspecified hyperlipidemia Otitis media Palpitations Personal history of nicotine dependence Positive colorectal cancer screening using Cologuard test Recurrent falls Symptomatic PVCs On metoprolol 50 milligrams daily. Tobacco abuse Tobacco dependence Vertigo Vitamin B12 deficiency Vitamin D deficiency Surgical History Surgical History History of arthroplasty of right knee History of left-sided carotid endarterectomy History of neck surgery History of shoulder surgery Hx of tonsillectomy Hx of total knee arthroplasty Right S/P cholecystectomy Status post cervical spinal fusion Status post cholecystectomy Status post left breast biopsy Status post partial hysterectomy For cervical cancer. Status post right rotator cuff repair Status post tonsillectomy Status post tubal ligation Family History Family History
--- NOTE | 2020-10-28 10:09 | WPDHPUPDATE1 ---
History and Physical Update Update Date/Time: 10/28/20 10:09 History and Physical has been reviewed, including an updated exam of the patient. There are NO changes in the patient's condition. Risks, benefits, and alternatives have been discussed and questions answered. Patient agrees to proceed with procedure.
[2020-10-28 10:43] VITALS: BP 110/53; PULSE 61; RESP 20; O2SAT 98
[2020-10-28 10:53] VITALS: BP 109/55; PULSE 58; RESP 17; O2SAT 97
[2020-10-28 11:03] VITALS: BP 107/67; PULSE 61; RESP 14; O2SAT 99
== END 2020-10-28 11:13 | disposition home or self-care (01) ==
PROVIDERS: Family Provider Internal Medicine; PCP Internal Medicine; Visit Provider Internal Medicine Gastroenterology
PROC: 0DJD8ZZ Inspection of Lower Intestinal Tract, Via Natural or Artificial Opening Endoscopic (ICD-10-PCS; CPT 45378; principal; 2020-10-28 10:00)
DX: Z12.11 Encounter for screening for malignant neoplasm of colon (principal); D12.4 Benign neoplasm of descending colon; D12.3 Benign neoplasm of transverse colon; K64.8 Other hemorrhoids; K57.30 Diverticulosis of large intestine without perforation or abscess without bleeding; R19.5 Other fecal abnormalities; E03.9 Hypothyroidism, unspecified; R00.1 Bradycardia, unspecified; R13.10 Dysphagia, unspecified; M79.7 Fibromyalgia; Z86.73 Personal history of transient ischemic attack (TIA), and cerebral infarction without residual deficits; Z85.41 Personal history of malignant neoplasm of cervix uteri; Z51.81 Encounter for therapeutic drug level monitoring; Z79.51 Long term (current) use of inhaled steroids; M19.90 Unspecified osteoarthritis, unspecified site; R00.2 Palpitations; E55.9 Vitamin D deficiency, unspecified; D51.0 Vitamin B12 deficiency anemia due to intrinsic factor deficiency; F17.210 Nicotine dependence, cigarettes, uncomplicated; E66.9 Obesity, unspecified; Z68.32 Body mass index [BMI] 32.0-32.9, adult; Z79.01 Long term (current) use of anticoagulants; J44.9 Chronic obstructive pulmonary disease, unspecified; I25.10 Atherosclerotic heart disease of native coronary artery without angina pectoris; E78.5 Hyperlipidemia, unspecified
CPT/HCPCS: 45385; 88305; J2704; J7120

== ENCOUNTER 2020-12-25 13:51 | Emergency (ER) | payer MEDICARE, MEDICAID, SELFPAY ==
[2020-12-25 13:54] VITALS: BP 149/80; PULSE 100; RESP 20; TEMP 36.4; O2SAT 98
--- NOTE | 2020-12-25 14:39 | ED.SKABFB ---
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 Patient denies any other complaints. Patient denies any fever or chills. Patient denies any chest pain, shortness of breath, abdominal pain, nausea, vomiting, diarrhea. <Ewdard Romero MD - Last Filed: 12/25/20 15:09> Related Data Home medications: Home Medications Medication Instructions Recorded Confirmed rivaroxaban 20 mg tablet 20 mg PO DAILY 07/29/19 11/09/20 ergocalciferol (vitamin D2) 1,250 50,000 unit PO MONTHLY cap 08/04/19 11/09/20 mcg (50,000 unit) capsule folic acid 1 mg tablet 1 mg PO DAILY 08/04/19 11/09/20 aspirin 81 mg PO DAILY 11/19/19 11/09/20 cyanocobalamin (vitamin B-12) 1,000 mcg PO .COMPLEX 02/25/20 11/09/20 1,000 mcg tablet albuterol sulfate [ProAir HFA] 2 puff INHALATION Q6H PRN 10/12/20 11/09/20 <Edward Romero MD - Last Filed: 12/25/20 15:09> Allergies/Adverse reactions: Allergies Allergy/AdvReac Type Severity Reaction Status Date / Time penicillin G Allergy Severe ANAPHYLACTI Verified 12/25/20 13:56 C codeine Allergy Unknown Stopped Verified 12/25/20 13:56 Breathing hydromorphone Allergy Unknown Rash Verified 12/25/20 13:56 latex Allergy Unknown Swelling Verified 12/25/20 13:56 levofloxacin Allergy Unknown BLISTERS Verified 12/25/20 13:56 ON BODY morphine Allergy Unknown Low blood Verified 12/25/20 13:56 pressure oxycodone Allergy Unknown Rash Verified 12/25/20 13:56 Penicillins Allergy Unknown Stopped Verified 12/25/20 13:56 Breathing vancomycin Allergy Unknown Red Pablito Verified 12/25/20 13:56 DRINKING ALCOHOL Allergy Unknown BLISTERS Uncoded 12/25/20 13:56 ON BODY <Edward Romero MD - Last Filed: 12/25/20 15:09> Review of Systems Review of Systems: All systems reviewed & are unremarkable except as noted in HPI and below <Edward Romero MD - Last Filed: 12/25/20 15:09> [facility] Past Medical History Medical History: Medical History Adult hypothyroidism Bradycardia Carotid artery disease Status post left carotid endarterectomy. Colon cancer screening Colon, diverticulosis COPD (chronic obstructive pulmonary disease) Current use of retirement anticoagulation CVA (cerebral vascular accident) With short-term memory loss. Diverticulosis With history of diverticulitis. Dizziness Dysphagia Fibromyalgia GERD (gastroesophageal reflux disease) History of cervical cancer History of colon polyps History of colon polyps Hx of deep venous thrombosis Hyperglycemia Hyperlipidemia Hypersomnia Hypothyroidism Low hemoglobin Mouth pain Nicotine abuse Obesity On ocean transportation intermediary drug therapy Osteoarthritis Other and unspecified hyperlipidemia Otitis media Palpitations Personal history of nicotine dependence Positive colorectal cancer screening using Cologuard test Recurrent falls Symptomatic PVCs On metoprolol 50 milligrams daily. Tobacco abuse Tobacco dependence Vertigo Vitamin B12 deficiency Vitamin D deficiency <Edward Romero MD - Last Filed: 12/25/20 15:09> Surgical History Surgical History: Surgical History History of arthroplasty of right knee Histor
== END 2020-12-25 15:17 | disposition home or self-care (01) ==
PROVIDERS: Emergency Provider Emergency Medicine; PCP Internal Medicine
DX: L02.31 Cutaneous abscess of buttock (principal); E03.9 Hypothyroidism, unspecified; I25.10 Atherosclerotic heart disease of native coronary artery without angina pectoris; J44.9 Chronic obstructive pulmonary disease, unspecified; I69.911 Memory deficit following unspecified cerebrovascular disease; K57.90 Diverticulosis of intestine, part unspecified, without perforation or abscess without bleeding; K21.9 Gastro-esophageal reflux disease without esophagitis; Z85.41 Personal history of malignant neoplasm of cervix uteri; Z86.010 Personal history of colon polyps; E78.5 Hyperlipidemia, unspecified; Z86.718 Personal history of other venous thrombosis and embolism; M19.90 Unspecified osteoarthritis, unspecified site; E66.9 Obesity, unspecified; Z68.31 Body mass index [BMI] 31.0-31.9, adult; E53.8 Deficiency of other specified B group vitamins; E55.9 Vitamin D deficiency, unspecified; Z96.651 Presence of right artificial knee joint; Z98.1 Arthrodesis status; F17.210 Nicotine dependence, cigarettes, uncomplicated
CPT/HCPCS: 10061; 99283

== ENCOUNTER → 2021-01-18 06:37 | Outpatient (CLI) | payer MEDICARE, MEDICAID, SELFPAY ==
[2021-01-19 16:10] LABS: SARS-CoV-2 RNA PCR Negative
== END ==
PROVIDERS: PCP Internal Medicine; Visit Provider Internal Medicine
DX: R68.89 Other general symptoms and signs (principal); Z20.822 Contact with and (suspected) exposure to COVID-19
CPT/HCPCS: C9803; U0003; U0005

== ENCOUNTER 2021-01-25 10:26 | Outpatient (CLI) | payer MEDICARE, MEDICAID, SELFPAY ==
--- NOTE | ~2021-01-25 | XR_ITS ---
EXAMINATION: XR chest 2V DATE: 01/25/2021 10:45 INDICATION: Cough. TECHNIQUE: Frontal and lateral views of the chest were obtained. COMPARISON: Chest 2 views 03/23/2020 FINDINGS: The chest demonstrates clear lungs without pneumonia, pleural effusion, or pneumothorax. Th e heart size is normal. There are changes of anterior fusion procedure in cervical spine. Surgical cl ips in the right upper quadrant are likely from cholecystectomy. IMPRESSION: 1. No acute cardiopulmonary disease. Reviewed, dictated and finalized at location B.
== END 2021-01-25 10:27 | disposition home or self-care (01) ==
PROVIDERS: PCP Internal Medicine; Visit Provider Nurse Practitioner
DX: R05 Cough (principal)
CPT/HCPCS: 71046

== ENCOUNTER 2021-01-30 10:37 | Outpatient (CLI) | payer MEDICARE, MEDICAID, SELFPAY ==
[2021-01-30 11:02] LABS: Basophils Percent Auto 0.3 % (0.2-1.2); Eosinophils Percent Auto 0.3 % (0-4.4); Hematocrit 44.1 % (37.0-47.0); Hemoglobin 14.4 g/dL (12.0-15.0); Immature Granulocyte Absolute 0.08 K/mm3 (0.00-0.031); Immature Granulocyte Percent A 0.7 % (0-0.5); Lymphocytes Absolute Auto 1.83 K/mm3 (0.9-3.2); Lymphocytes Percent Auto 15.5 % (18.3-44.2); Mean Corpuscular HGB Conc 32.7 g/dl (32-36); Mean Corpuscular Volume 88.7 fl (80-100); Mean Platelet Volume 9.6 fl (7.4-10.4); Monocytes Absolute Auto 0.5 K/mm3 (0.1-0.6); Monocytes Percent Auto 4.2 % (2.6-8.5); Neutrophils Absolute Auto 9.3 K/mm3 (1.3-6.7); Platelet Count Result 349 k/mm3 (150-375); Red Blood Count 4.97 M/mm3 (4.2-5.4); White Blood Count 11.8 K/mm3 (4.5-10.0)
[2021-01-30 11:10] LABS: Blood Urea Nitrogen 12 mg/dL (8-26); Carbon Dioxide 31 mmol/L (22-30); Chloride 101 mmol/L (98-109); Estimated Glomerular Filt Rate 57; Glucose 108 mg/dL (70-105); Potassium 3.8 mmol/L (3.5-4.9); Sodium 142 mmol/L (138-146)
[2021-01-30 17:46] LABS: Alanine Aminotransferase 21 U/L (4-35); Albumin Level 4.2 g/dL (3.5-5.1); Alkaline Phosphatase 106 U/L (38-126); Anion Gap 6 mmol/L (8-16); Aspartate Amino Transferase 22 U/L (14-36); Bilirubin,Total 0.4 mg/dL (0.2-1.3); Blood Urea Nitrogen 13 mg/dL (7-17); Calcium 9.6 mg/dL (8.4-10.2); Carbon Dioxide 32 mmol/L (22-30); Chloride 104 mmol/L (98-107); Estimated Glomerular Filt Rate > 60; Glucose 106 mg/dL (65-105); Sodium 142 mmol/L (137-145)
== END 2021-01-30 10:38 | disposition home or self-care (01) ==
LOC: ANHLAB 10:40
PROVIDERS: PCP Internal Medicine; Visit Provider Internal Medicine Hematology & Oncology
DX: I82.501 Chronic embolism and thrombosis of unspecified deep veins of right lower extremity (principal)
CPT/HCPCS: 36415; 80048; 80053; 85025

== ENCOUNTER 2021-06-06 11:53 | Outpatient (CLI) | payer MEDICARE, MEDICAID, SELFPAY ==
--- NOTE | ~2021-06-06 | XR_ITS ---
EXAMINATION: XR foot LT min 3V DATE: 06/06/2021 12:11 INDICATION: Smashed left first metatarsal presenting with left foot pain. TECHNIQUE: Dorsoplantar, two oblique and lateral views of the left foot were obtained. COMPARISON: None. FINDINGS: Alignment is normal. No fracture. Joint spaces are normal. No erosions or periosteal reaction. Soft t issues are unremarkable. IMPRESSION: 1. Negative left foot radiographs. Reviewed, dictated and finalized at location A.
== END 2021-06-06 11:54 | disposition home or self-care (01) ==
LOC: ANHIMG 11:59
PROVIDERS: PCP Internal Medicine; Visit Provider Internal Medicine
DX: M79.672 Pain in left foot (principal)
CPT/HCPCS: 73630

== ENCOUNTER → 2021-06-17 00:14 | Outpatient (CLI) | payer MEDICARE, MEDICAID, SELFPAY ==
[2021-06-17 19:35] LABS: SARS-CoV-2 RNA PCR Negative
== END ==
PROVIDERS: PCP Internal Medicine; Visit Provider Internal Medicine Gastroenterology
DX: Z01.812 Encounter for preprocedural laboratory examination (principal); Z20.822 Contact with and (suspected) exposure to COVID-19
CPT/HCPCS: C9803; U0003; U0005

== ENCOUNTER 2021-06-20 01:10 | Day surgery (SDC) | payer MEDICARE, MEDICAID, SELFPAY ==
[2021-06-12 13:39] VITALS: BMI 31.0
[2021-06-20 10:40] VITALS: BP 126/58; PULSE 54; RESP 20; TEMP 36.1; O2SAT 100
--- NOTE | 2021-06-20 11:00 | WPDANESEPPF ---
Anes - Initial Pre Proc Eval Procedure: Operation Date: 06/20/21 11:30 Proposed Procedures p Esophagogastroduodenoscopy - Ashwin Ko MD Date/Time: 06/20/21 11:00 Surgeon: Ashwin Ko MD Pre Op Diagnosis: dysphagia Patient Data Age: 61 Gender: F Height: 1.63 m Weight: 81.2 kg Last Vital Signs Temp 97 F L 06/20/21 10:40 Pulse 54 L 06/20/21 10:40 Resp 20 06/20/21 10:40 BP 126/58 L 06/20/21 10:40 Pulse Ox 100 06/20/21 10:40 Allergies Allergy/AdvReac Type Severity Reaction Status Date / Time codeine Allergy Severe Difficulty Verified 06/20/21 10:37 Breathing latex Allergy Severe Blister Verified 06/20/21 10:37 levofloxacin Allergy Severe BLISTERS Verified 06/20/21 10:37 ON BODY morphine Allergy Severe Low blood Verified 06/20/21 10:37 pressure oxycodone Allergy Severe Rash Verified 06/20/21 10:37 penicillin G Allergy Severe ANAPHYLACTI Verified 06/20/21 10:37 C Penicillins Allergy Severe Stopped Verified 06/20/21 10:37 Breathing vancomycin Allergy Severe Red Pablito Verified 06/20/21 10:37 hydromorphone Allergy Intermediate Blister Verified 06/20/21 10:37 shellfish derived AdvReac Severe Swelling Verified 06/20/21 10:37 of Lip/Tongue/Throat DRINKING ALCOHOL Allergy Severe BLISTERS Uncoded 06/20/21 10:37 ON BODY Home Medications Medication Instructions Recorded Confirmed Type rivaroxaban 20 mg tablet 20 mg PO DAILY 07/29/19 06/12/21 History folic acid 1 mg tablet 1 mg PO DAILY 08/04/19 06/12/21 History aspirin 81 mg PO DAILY 11/19/19 06/12/21 History cyanocobalamin (vitamin B-12) 1,000 mcg PO .COMPLEX 02/25/20 06/12/21 History 1,000 mcg tablet ergocalciferol (vitamin D2) 1,250 See Rx Instructions .ROUTE 01/05/21 06/12/21 Rx mcg (50,000 unit) capsule .COMPLEX #4 cap atorvastatin 40 mg tablet See Rx Instructions .ROUTE 04/27/21 06/12/21 Rx .COMPLEX #90 tablet pantoprazole 20 mg tablet,delayed See Rx Instructions .ROUTE 04/27/21 06/12/21 Rx release .COMPLEX #90 tablet alprazolam 0.5 mg tablet 0.5 mg PO BID PRN #60 tablet 05/19/21 06/12/21 Rx nebivolol 5 mg tablet 5 mg PO DAILY #30 tablet 06/02/21 06/12/21 Rx albuterol sulfate 2.5 mg INHALATION Q4-6H PRN #90 ml 06/09/21 06/12/21 Rx albuterol sulfate 90 mcg/actuation 2 puff INHALATION Q6H PRN #8.5 g 06/09/21 06/12/21 Rx aerosol inhaler levothyroxine 75 mcg tablet See Rx Instructions .ROUTE 06/16/21 Rx .COMPLEX #90 tablet Patient hx anesthesia problems: none Family hx anesthesia problems: none Results Review: All pre-operative results and documents have been reviewed as part of the pre-operative evaluation. [facility] Past Medical History Medical History (Updated 06/01/21 @ 09:47 by Ashwin Ko MD) Adenomatous colon polyp Adult hypothyroidism Bradycardia Carotid artery disease Status post left carotid endarterectomy. Colon cancer screening Colon, diverticulosis COPD (chronic obstructive pulmonary disease) Current use of half-way anticoagulation CVA (cerebral vascular accident) With short-term memory loss. Diverticulosis With history of diverticulitis. 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 Tobacco abuse Tobacco dependence Vertigo Vitamin B12 deficiency Vitamin D deficiency Surgical History Surgical History History of arthroplasty of right knee History
[2021-06-20] MEDS: LACTATED RINGERS 1,000 ML 150 ML IV CONT (11:05)
--- NOTE | 2021-06-20 11:39 | WPDHPUPDATE1 ---
History and Physical Update Update Date/Time: 06/20/21 11:39 History and Physical has been reviewed, including an updated exam of the patient. There are NO changes in the patient's condition. Risks, benefits, and alternatives have been discussed and questions answered. Patient agrees to proceed with procedure.
[2021-06-20 11:55] VITALS: BP 90/40; RESP 23; O2SAT 93
[2021-06-20 12:05] VITALS: BP 100/45; RESP 18; O2SAT 95
[2021-06-20 12:15] VITALS: BP 115/46; RESP 20; O2SAT 100
== END 2021-06-20 12:42 | disposition home or self-care (01) ==
PROVIDERS: PCP Internal Medicine; Visit Provider Internal Medicine Gastroenterology
PROC: 0DJ08ZZ Inspection of Upper Intestinal Tract, Via Natural or Artificial Opening Endoscopic (ICD-10-PCS; CPT 43235; principal; 2021-06-20 11:30)
DX: R13.10 Dysphagia, unspecified (principal); K44.9 Diaphragmatic hernia without obstruction or gangrene; K57.10 Diverticulosis of small intestine without perforation or abscess without bleeding; K29.50 Unspecified chronic gastritis without bleeding; K21.00 Gastro-esophageal reflux disease with esophagitis, without bleeding; E03.9 Hypothyroidism, unspecified; I25.10 Atherosclerotic heart disease of native coronary artery without angina pectoris; J44.9 Chronic obstructive pulmonary disease, unspecified; Z86.73 Personal history of transient ischemic attack (TIA), and cerebral infarction without residual deficits; M79.7 Fibromyalgia; E78.5 Hyperlipidemia, unspecified; I49.3 Ventricular premature depolarization; E55.9 Vitamin D deficiency, unspecified; E53.8 Deficiency of other specified B group vitamins; Z86.718 Personal history of other venous thrombosis and embolism; E66.9 Obesity, unspecified; Z68.30 Body mass index [BMI] 30.0-30.9, adult; F17.210 Nicotine dependence, cigarettes, uncomplicated; Z79.01 Long term (current) use of anticoagulants; Z79.82 Long term (current) use of aspirin; Z79.51 Long term (current) use of inhaled steroids
CPT/HCPCS: 43239; 88305; 88342; J2704; J7120

== ENCOUNTER 2021-07-02 23:51 | Emergency (ER) | payer MEDICARE, MEDICAID, SELFPAY ==
--- NOTE | ~2021-07-02 | XR_ITS ---
EXAMINATION: XR knee RT min 4V DATE: 07/03/2021 04:05 INDICATION: Right knee pain. Fall. TECHNIQUE: 4 views of right knee were obtained. COMPARISON: Right knee radiographs 02/03/2020 FINDINGS: There is a total right knee arthroplasty in near-anatomic alignment without patellar resurf acing. There is an osteophyte of the patella. There is a small knee joint effusion. IMPRESSION: 1. Total right knee arthroplasty in near-anatomic alignment. 2. Small knee joint effusion. Reviewed, dictated and finalized at location A.
--- NOTE | ~2021-07-02 | XR_ITS ---
EXAMINATION: XR forearm RT 2V DATE: 07/03/2021 04:05 INDICATION: Right forearm pain. Fall. TECHNIQUE: 2 views of right forearm were obtained. COMPARISON: None. FINDINGS: Bone alignment is normal. No fracture. There is mild osteoarthritis of first carpometacarpa l joint. No elbow joint effusion. IMPRESSION: 1. No fracture. Reviewed, dictated and finalized at location A. IMPRESSION: 1. No fracture.
--- NOTE | ~2021-07-02 | XR_ITS ---
EXAMINATION: XR knee LT min 4V DATE: 07/03/2021 04:05 INDICATION: Left knee pain. Fall. TECHNIQUE: 4 views of left knee were obtained. COMPARISON: Left knee radiographs 02/03/2020 FINDINGS: Bone alignment is normal. No fracture. There is moderate osteoarthritis of medial compartme nt and mild osteoarthritis of lateral and patellofemoral compartments. No knee joint effusion. IMPRESSION: 1. Moderate left knee osteoarthritis. Reviewed, dictated and finalized at location A.
--- NOTE | ~2021-07-02 | XR_ITS ---
EXAMINATION: XR elbow LT min 3V DATE: 07/03/2021 04:05 INDICATION: Left elbow pain. TECHNIQUE: 4 views of left elbow were obtained. COMPARISON: Left elbow radiographs 12/29/2019 FINDINGS: Bone alignment is normal. No fracture. Joint spaces are well maintained. There is no elbow joint effusion. IMPRESSION: 1. Normal left elbow. Reviewed, dictated and finalized at location A. IMPRESSION: 1. Normal left elbow.
[2021-07-03 00:14] VITALS: BP 126/55; PULSE 72; RESP 18; TEMP 36.1; O2SAT 100
[2021-07-03 01:48] VITALS: O2SAT 96
--- NOTE | 2021-07-03 01:57 | PC.NURSE ---
Pt reports slipped by missing a step and landed on ceramic tile on her elbows and both knees. denies hitting head. denies loc. bruising to left elbow, pain to right forearm and right pinkie finger, and pain to bilateral knees (R TKA). Drove self here. no s/s of distress. denies getting dizzy or lightheaded prior to fall. a/o x 4.
[2021-07-03 02:43] VITALS: PULSE 57; RESP 15; O2SAT 100
[2021-07-03 02:45] VITALS: PULSE 67; RESP 16
[2021-07-03 03:00] VITALS: BP 145/76; PULSE 54; RESP 14; TEMP 36.2; O2SAT 18
--- NOTE | 2021-07-03 04:28 | ED.FALL ---
HPI - Fall General Chief Complaint: Fall Stated Complaint: fall, 2 steps Time Seen by Provider: 07/03/21 02:52 Source: patient and RN notes reviewed Mode of arrival: ambulatory Limitations: no limitations History of Present Illness HPI Narrative: This is a 61 year old female who presents for evaluation of bilateral arm pain and knee pain s/p fall. Patient states she accidentally missed 2 steps so she fell onto her knees and elbows. She denies hitting her head or LOC. She denies neck pain. She has pain and bruising to her right forearm, and she is also complaining of left elbow pain. She has some pain in bilateral knee and she has had right knee replaced. She has been ambulatory without issue. She states she just wanted to get checked. Pain is worse with movement. Related Data Home Medications Medication Instructions Recorded Confirmed rivaroxaban 20 mg tablet 20 mg PO DAILY 07/29/19 06/12/21 folic acid 1 mg tablet 1 mg PO DAILY 08/04/19 06/12/21 aspirin 81 mg PO DAILY 11/19/19 06/12/21 cyanocobalamin (vitamin B-12) 1,000 mcg PO .COMPLEX 02/25/20 06/12/21 1,000 mcg tablet Allergies Allergy/AdvReac Type Severity Reaction Status Date / Time codeine Allergy Severe Difficulty Verified 07/03/21 02:01 Breathing latex Allergy Severe Blister Verified 07/03/21 02:01 levofloxacin Allergy Severe BLISTERS Verified 07/03/21 02:01 ON BODY morphine Allergy Severe Low blood Verified 07/03/21 02:01 pressure oxycodone Allergy Severe Rash Verified 07/03/21 02:01 penicillin G Allergy Severe ANAPHYLACTI Verified 07/03/21 02:01 C Penicillins Allergy Severe Stopped Verified 07/03/21 02:01 Breathing vancomycin Allergy Severe Red Pablito Verified 07/03/21 02:01 hydromorphone Allergy Intermediate Blister Verified 07/03/21 02:01 shellfish derived AdvReac Severe Swelling Verified 07/03/21 02:01 of Lip/Tongue/Throat DRINKING ALCOHOL Allergy Severe BLISTERS Uncoded 06/20/21 10:37 ON BODY Review of Systems Review of Systems: All systems reviewed & are unremarkable except as noted in HPI and below PMFSH Past Medical History Medical History Adenomatous colon polyp Adult hypothyroidism Bradycardia Carotid artery disease Status post left carotid endarterectomy. 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 Diverticulosis With history of diverticulitis. Dizziness Dysphagia Fibromyalgia GERD (gastroesophageal reflux disease) History of cervical cancer History of colon polyps History of colon polyps Hx of deep venous thrombosis Hyperglycemia Hyperlipidemia Hypersomnia Hypothyroidism Low hemoglobin Mouth pain Nicotine abuse Obesity On alf drug therapy Osteoarthritis Other and unspecified hyperlipidemia Otitis media Palpitations Personal history of nicotine dependence Positive colorectal cancer screening using Cologuard test Recurrent falls Symptomatic PVCs On metoprolol 50 milligrams daily. Tobacco abuse Tobacco dependence Vertigo Vitamin B12 deficiency Vitamin D deficiency Surgical History Surgical History History of arthroplasty of right knee History of left-sided carotid endarterectomy History of neck surgery History of shoulder surgery Hx of tonsillectomy Hx of total knee arthroplasty Right S/P cholecystectomy Status post cervical spinal fusion Status post cholecystectomy Status post left breast biopsy Status post partial hysterectomy For cervical cancer. Status post right rotator cuff repair Status post tonsillectomy Status post tubal ligation Family History Family History Mother Depression Family history of diabetes mellitus in first degre
[2021-07-03 05:29] VITALS: BP 143/72; PULSE 83; RESP 20; TEMP 36.2; O2SAT 97
== END 2021-07-03 05:36 | disposition home or self-care (01) ==
PROVIDERS: Emergency Provider General Practice; PCP Internal Medicine
DX: S50.11XA Contusion of right forearm, initial encounter (principal); S80.02XA Contusion of left knee, initial encounter; M25.522 Pain in left elbow; I25.10 Atherosclerotic heart disease of native coronary artery without angina pectoris; E03.9 Hypothyroidism, unspecified; E78.5 Hyperlipidemia, unspecified; J44.9 Chronic obstructive pulmonary disease, unspecified; F17.210 Nicotine dependence, cigarettes, uncomplicated; Z86.73 Personal history of transient ischemic attack (TIA), and cerebral infarction without residual deficits; Z79.82 Long term (current) use of aspirin; W10.9XXA Fall (on) (from) unspecified stairs and steps, initial encounter
CPT/HCPCS: 73080; 73090; 73564; 99284

== ENCOUNTER 2021-07-16 12:29 | Outpatient (CLI) | payer MEDICARE, MEDICAID, SELFPAY ==
--- NOTE | ~2021-07-16 | MR_ITS ---
EXAMINATION: MR knee RT wo con DATE: 07/16/2021 13:54 INDICATION: Bruising and swelling at the right knee post fall 2 weeks prior TECHNIQUE: Magnetic resonance imaging (MRI) of the right knee was performed without intravenous contr ast. Sequences included coronal PD-weighted FSE, coronal PD-weighted FS FSE, sagittal fluid sensitiv e FSE STIR, sagittal PD-weighted FSE and axial PD weighted fat saturated FSE. COMPARISON: None. FINDINGS: Osseous/other: Metallic magnetic field artifact surrounding the femoral and tibial components of a right total knee arthroplasty. The artifact obscures the immediately adjacent bone and soft tissues. Additional suscep tibility artifact along a sagittally oriented surgical scar the soft tissues anterior to the knee and along likely guide pin and remaining tracks in the distal femur. Bone marrow signal is otherwise nor mal with no reactive edema, fracture or pathologic marrow replacing process. The non obscured portion s of the patellar cartilage appear unremarkable. Ligaments and tendons: The visualized portion of the posterior cruciate, medial collateral and fibular collateral ligaments appear normal although assessment of all is limited by the magnetic field artifact which obscures por tions of all 3 ligaments. Mild distal quadriceps tendinopathy without discrete tear. The patellar ten don appears unremarkable. The visualized medial and lateral hamstring tendons as well as the iliotibi al band are normal. Fluid: Small right knee joint effusion at the suprapatellar pouch. IMPRESSION: 1. Right total knee arthroplasty without patellar resurfacing which results in large amount of surrou nding metallic magnetic field artifact which limits assessment of the immediately adjacent bone and s oft tissues. 2. Normal bone marrow signal with no evident reactive edema, fracture or pathologic marrow replacing process. 3. Small right knee joint effusion. Reviewed, dictated and finalized at location A. IMPRESSION: 1. Right total knee arthroplasty without patellar resurfacing which results in large amount of surrounding metallic magnetic field artifact which limits asses sment of the immediately adjacent bone and soft tissues. 2. Normal bone marrow signal with no evident reactive edema, fracture or pathol ogic marrow replacing process. 3. Small right knee joint effusion.
--- NOTE | ~2021-07-16 | MR_ITS ---
EXAMINATION: MR elbow LT wo con DATE: 07/16/2021 13:53 INDICATION: Left elbow pain with tenderness to touch, bruising and swelling post fall 2 weeks prior. TECHNIQUE: Magnetic resonance imaging (MRI) of the left elbow was performed without intravenous contr ast. Sequences included coronal, axial, and sagittal PD-weighted FS FSE and coronal, axial, and sagit laurie PD-weighted FSE. COMPARISON: Left elbow radiograph dated 07/03/2021 FINDINGS: Osseous/other: Normal alignment. Normal marrow signal with no marrow edema, fracture, osteochondral lesion or abnor mal marrow replacing process. Tendons: Triceps, biceps brachii and brachialis tendons are normal. Common flexor tendon wad is normal. Mild tendinopathy without discrete tear at the common extensor tendon wad. Ligaments: The medial and lateral collateral ligament complexes are normal. Cubital tunnel: Cubital tunnel is unremarkable with normal signal and caliber of the ulnar nerve. Fluid: Physiologic amount of fluid the elbow joint. IMPRESSION: 1. Mild tendinopathy of the common extensor tendon wad without discrete tear. Reviewed, dictated and finalized at location A.
== END 2021-07-16 12:30 | disposition home or self-care (01) ==
LOC: ANHIMG 12:40
PROVIDERS: PCP Internal Medicine; Visit Provider Internal Medicine
DX: T07.XXXA Unspecified multiple injuries, initial encounter (principal); M25.461 Effusion, right knee
CPT/HCPCS: 73221; 73721

== ENCOUNTER 2021-07-20 08:59 | Outpatient (CLI) | payer MEDICARE, MEDICAID, SELFPAY ==
--- NOTE | ~2021-07-20 | CT_ITS ---
EXAMINATION: CT lung screening DATE: 07/20/2021 09:51 INDICATION: Personal history of tobacco dependence, current smoker with 30 pack year history TECHNIQUE: Computed tomography (CT) of the chest was performed without intravenous contrast. The dose -length product (DLP) was 91.55 mGy-cm. Automated exposure control and iterative reconstruction techn coresystemsue were employed. COMPARISON: 07/18/2020 FINDINGS: There are stable pulmonary nodules, the largest of which measures 4 mm in the right lower l obe on image 77. There is mild emphysema. No new pulmonary nodules are identified. The lungs are free of acute opacities. There is no pleural effusion or pneumothorax. No pathologically enlarged thoraci c lymph nodes are identified. The heart size is normal. The gallbladder is surgically absent. There i s a small sliding hiatal hernia. There is mild thoracic spondylosis. IMPRESSION: 1. Lung-RADS category 2: Benign appearance or behavior. Continue annual screening with noncontrast lo w-dose chest CT in 12 months. Reviewed, dictated and finalized at location B. IMPRESSION: 1. Lung-RADS category 2: Benign appearance or behavior. Continue annual screeni ng with noncontrast low-dose chest CT in 12 months.
--- NOTE | ~2021-07-20 | MM_ITS ---
EXAMINATION: MM screening meron BI w carolann HISTORY: Screening TECHNIQUE: Craniocaudal and mediolateral oblique 3-D tomosynthesis images were obtained and synthetic 2-D images were generated. CAD analysis was submitted and interpreted. COMPARISON: Comparison to multiple prior studies sequentially, with oldest reviewed study dated 03/04. BREAST PARENCHYMAL COMPOSITION: There are scattered areas of fibroglandular density. FINDINGS: There is no evidence of suspicious mass, calcification, or architectural distortion to sugg est malignancy in either breast. There has been no suspicious interval change. IMPRESSION: 1. No mammographic evidence of malignancy. 2. Recommend routine screening mammography in one year. BI-RADS Category 1: Negative Reviewed, dictated and finalized at location A.
[2021-07-20 10:51] LABS: Alanine Aminotransferase 21 U/L (4-35); Albumin Level 4.4 g/dL (3.5-5.1); Alkaline Phosphatase 98 U/L (38-126); Anion Gap 9 mmol/L (8-16); Aspartate Amino Transferase 28 U/L (14-36); Bilirubin,Total 0.5 mg/dL (0.2-1.3); Blood Urea Nitrogen 10 mg/dL (7-17); Calcium 9.4 mg/dL (8.4-10.2); Carbon Dioxide 29 mmol/L (22-30); Chloride 103 mmol/L (98-107); Cholesterol 160 mg/dL (0-200); Estimated Glomerular Filt Rate 57; Glucose 104 mg/dL (65-110); HDL Direct 46 mg/dL; Potassium 3.6 mmol/L (3.4-5.0); Sodium 141 mmol/L (137-145); Triglycerides 108 mg/dL (<150)
[2021-07-20 11:02] LABS: LDL Cholesterol Direct 78 mg/dL
[2021-07-20 11:21] LABS: Thyroid Stimulating Hormone 0.932 uIU/mL (0.465-4.680)
== END 2021-07-20 09:00 | disposition home or self-care (01) ==
PROVIDERS: PCP Internal Medicine; Visit Provider Internal Medicine Hematology & Oncology
DX: Z12.31 Encounter for screening mammogram for malignant neoplasm of breast (principal); Z87.891 Personal history of nicotine dependence; Z12.2 Encounter for screening for malignant neoplasm of respiratory organs; E78.5 Hyperlipidemia, unspecified
CPT/HCPCS: 36415; 71271; 77063; 77067; 80053; 80061; 84443

== ENCOUNTER 2021-07-22 07:39 | Outpatient (CLI) | payer MEDICARE, MEDICAID, SELFPAY ==
--- NOTE | ~2021-07-22 | MR_ITS ---
EXAMINATION: MR knee LT wo con DATE: 07/22/2021 08:40 INDICATION: Unspecified injury of left lower leg, initial encounter. Anterior left knee pain. TECHNIQUE: Magnetic resonance imaging (MRI) of the left knee was performed without intravenous contra st. Sequences included axial PD-weighted FS FSE, coronal PD-weighted FSE and PD-weighted FS FSE, sagi ttal PD-weighted FSE, and sagittal T2-weighted FS FSE. COMPARISON: Left knee radiographs 07/03/2021, MRI 09/08/2017 FINDINGS: Medial compartment: There is a complex tear involving body and posterior horn of medial meniscus. There is shallow partia l-thickness cartilage loss of tibial condyle. There is extensive partial thickness cartilage loss of femoral condyle, deep at the central and medial articular surface. Osteophytes are noted. Lateral compartment: Increased signal in lateral meniscus does not definitely extend to an articular surface to indicate a tear. There is shallow partial-thickness cartilage loss of tibial condyle and femoral condyle. Osteo phytes are noted. Patellofemoral compartment: There is shallow partial-thickness cartilage loss of patellar medial facet. There is deep partial-thi ckness cartilage loss of medial trochlea with mild subchondral edema-like marrow signal intensity. Os teophytes are noted. Ligaments and tendons: The anterior and posterior cruciate ligaments are normal. Medial collateral ligament is normal. There are changes of prior sprain of fibular collateral ligament characterized by thickening and increased signal intensity. There is mild patellar tendinopathy. Fluid: There is a small knee joint effusion. There is mild prepatellar and superficial infrapatellar bursiti s. IMPRESSION: 1. Moderate chondrosis of medial and patellofemoral compartments and mild chondrosis of lateral heather rtment. 2. Tear of medial meniscus. 3. Small knee joint effusion. Reviewed, dictated and finalized at location A. O GRAPHICS LIBRARIAN IMPRESSION: 1. Moderate chondrosis of medial and patellofemoral compartments and mild chond rosis of lateral compartment. 2. Tear of medial meniscus. 3. Small knee joint effusion.
== END 2021-07-22 07:40 | disposition home or self-care (01) ==
PROVIDERS: PCP Internal Medicine; Visit Provider Internal Medicine
DX: S89.92XA Unspecified injury of left lower leg, initial encounter (principal); M22.2X2 Patellofemoral disorders, left knee; S83.242A Other tear of medial meniscus, current injury, left knee, initial encounter; M25.462 Effusion, left knee
CPT/HCPCS: 73721

== ENCOUNTER → 2021-08-23 09:22 | Outpatient (CLI) | payer MEDICARE, MEDICAID, SELFPAY ==
[2021-08-23 20:25] LABS: SARS-CoV-2 RNA PCR Negative
== END ==
PROVIDERS: PCP Internal Medicine; Visit Provider Internal Medicine
DX: Z20.822 Contact with and (suspected) exposure to COVID-19 (principal)
CPT/HCPCS: C9803; U0003; U0005

== ENCOUNTER → 2021-09-14 10:03 | Outpatient (CLI) | payer MEDICARE, MEDICAID, SELFPAY ==
[2021-09-14 13:43] LABS: Influenza Control Positive
[2021-09-14 20:34] LABS: SARS-CoV-2 RNA PCR Negative
== END ==
PROVIDERS: PCP Internal Medicine; Visit Provider Internal Medicine
DX: J06.9 Acute upper respiratory infection, unspecified (principal); Z20.822 Contact with and (suspected) exposure to COVID-19
CPT/HCPCS: 87804; C9803; U0003; U0005

== ENCOUNTER 2021-09-14 11:30 | Outpatient (CLI) | payer MEDICARE, MEDICAID, SELFPAY ==
--- NOTE | ~2021-09-14 | XR_ITS ---
EXAMINATION: XR knee LT min 4V DATE: 09/14/2021 11:49 INDICATION: Unilateral primary osteoarthritis, left knee. TECHNIQUE: 4 views of left knee including standing views were obtained. COMPARISON: Left knee radiographs 07/03/2021 FINDINGS: Bone alignment is normal. No fracture. There is moderate osteoarthritis of medial compartme nt and mild osteoarthritis of lateral and patellofemoral compartments. No knee joint effusion. IMPRESSION: 1. Stable moderate left knee osteoarthritis. Reviewed, dictated and finalized at location B. EACH EDUCATOR
== END 2021-09-14 11:31 | disposition home or self-care (01) ==
LOC: ANHIMG 11:33
PROVIDERS: PCP Internal Medicine; Visit Provider Orthopaedic Surgery
DX: M17.12 Unilateral primary osteoarthritis, left knee (principal); S83.242A Other tear of medial meniscus, current injury, left knee, initial encounter
CPT/HCPCS: 73564; 87804; C9803; U0003; U0005

== ENCOUNTER 2021-09-21 14:16 | Outpatient (CLI) | payer MEDICARE, MEDICAID, SELFPAY ==
--- NOTE | 2021-09-21 14:20 | ECG_ITS ---
Measurements Intervals [place] Rate: 67 P: 66 TN: 218 QRS: 17 QRSD: 78 T: 71 QT: 370 QTc: 392 Interpretive Statements SINUS RHYTHM WITH FIRST DEGREE AV BLOCK INCOMPLETE RIGHT BUNDLE BRANCH BLOCK LOW QRS VOLTAGE IN PRECORDIAL LEADS BASELINE ARTIFACT- I, II, III, AVR, AVL, V3 ABNORMAL ECG Electronically Signed On 09-21-2021 14:35:02 SCARIFIER OPERATOR by Brandon Wolf D.O.
== END 2021-09-21 14:17 | disposition home or self-care (01) ==
PROVIDERS: PCP Internal Medicine; Visit Provider Orthopaedic Surgery
DX: Z01.810 Encounter for preprocedural cardiovascular examination (principal); I45.2 Bifascicular block; R94.31 Abnormal electrocardiogram [ECG] [EKG]
CPT/HCPCS: 93005

== ENCOUNTER → 2021-09-22 03:21 | Outpatient (CLI) | payer MEDICARE, MEDICAID, SELFPAY ==
[2021-09-23 22:39] LABS: SARS-CoV-2 RNA PCR Negative
== END ==
PROVIDERS: PCP Internal Medicine; Visit Provider Orthopaedic Surgery
DX: Z01.812 Encounter for preprocedural laboratory examination (principal); Z20.822 Contact with and (suspected) exposure to COVID-19
CPT/HCPCS: C9803; U0003; U0005

== ENCOUNTER 2021-09-25 01:45 | Day surgery (SDC) | payer MEDICARE, MEDICAID, SELFPAY ==
[2021-09-20 10:05] VITALS: BMI 30.6
--- NOTE | 2021-09-20 10:24 | PC.NURSE ---
Report to the Outpatient Waiting Room, entrance under the green pavilion located off [facility], at time 10:00 on date 09/25/21. OR Time: 12:00. - You will be asked a series of questions to screen for COVID 19 for your protection. - A mask is required within the hospital. - No visitors are allowed at this time. Preoperative COVID Testing Requirements: COVID TEST 09/22 AT 8:45 No COVID Test needed if: (proof is required; if not received patient will have Rapid Test prior to entry) - Patient has received COVID Vaccine at least 14 days prior to procedure date or - Patient has positive COVID test result within last 90 days of surgery date. COVID Test needed if above criteria is not met If not COVID vaccinated a COVID test must be conducted within 72 hours of surgery and patient is asked to isolate self from time of testing until procedure. You will go to the [facility] for your COVID testing. The [facility] is located at the corner of [address] [facility]. You will only be called if COVID results are positive and your surgeon may reschedule your elective surgery date. Patients may have clear liquids (water, carbonated beverages, clear teas, apple juice) until 3 hours prior to surgery (9:00) with a maximum of 20 ounces. - No food from midnight until time of surgery Take the following medications with a SIP of water the morning of surgery: LEVOTHYROXINE, XANAX (IF NEEDED), INHALERS (IF NEEDED) Medications to discontinue per physician: VITAMINS/SUPPLEMENTS Date to take last dose: 09/21/21 STOP ASPIRIN AND X[address] VALENTINE'S INSTRUCTIONS Please no make-up, nail vatican citizen, hairspray, perfume, deodorant, or body powder the day of surgery. No jewelry (including any body piercings) or valuables the day of surgery, leave them at home. Please take a shower or bath the night before, or the morning of, surgery with an antibacterial soap. Wear comfortable, loose fitting clothing. - Jewelry must be removed prior to entering the operating room. Rings and piercings that are not removed may be cut off. - The hospital will not accept responsibility for valuables. - Please leave all valuables, including medications, at home the day of surgery. If you are going home after surgery, a licensed local combination truck driver must drive you home. - NO public transportation without another adult. - We recommend that an adult stay with you for 24 hours following discharge. - We also recommend that you do not drive, make important decision, drink alcoholic beverages, or take any drugs that were not prescribed by your health care provider for at least 24 hours after your discharge time. Follow any additional instructions given to you from your surgeon. Telephone instructions given to JANINE GUTIERRES and asked if any additional questions and then verbalized understanding. Patient advised to call surgeon office or pre surgery nurse liaison [phone] if any additional questions.
[2021-09-25] VITALS (8 sets, daily range): BP systolic 102–146; BP diastolic 44–73; PULSE 48–94; RESP 11–16; TEMP 36.6–36.9; O2SAT 94–100
--- NOTE | 2021-09-25 09:02 | WPDANESEPPF ---
Anes - Initial Pre Proc Eval Procedure: Operation Date: 09/25/21 12:00 Proposed Procedures p Arthroscopic Partial Medial Meniscectomy Left Knee, Proceed As Indicated - Tay Orozco MD Date/Time: 09/25/21 09:02 Surgeon: Tay Orozco MD Pre Op Diagnosis: medial meniscus tear left knee Patient Data Age: 61 Gender: F Height: 1.63 m Weight: 81 kg Allergies Allergy/AdvReac Type Severity Reaction Status Date / Time codeine Allergy Severe Difficulty Verified 09/25/21 10:12 Breathing latex Allergy Severe Blister Verified 09/25/21 10:12 levofloxacin Allergy Severe BLISTERS Verified 09/25/21 10:12 ON BODY morphine Allergy Severe Low blood Verified 09/25/21 10:12 pressure oxycodone Allergy Severe Rash Verified 09/25/21 10:12 penicillin G Allergy Severe ANAPHYLACTI Verified 09/25/21 10:12 C Penicillins Allergy Severe Stopped Verified 09/25/21 10:12 Breathing vancomycin Allergy Severe Red Pablito Verified 09/25/21 10:12 hydrocodone Allergy Intermediate Itching Verified 09/25/21 10:17 hydromorphone Allergy Intermediate Blister Verified 09/25/21 10:12 shellfish derived AdvReac Severe Swelling Verified 09/25/21 10:12 of Lip/Tongue/Throat DRINKING ALCOHOL Allergy Severe BLISTERS Uncoded 09/25/21 10:12 ON BODY Home Medications Medication Instructions Recorded Confirmed Type rivaroxaban 20 mg tablet 20 mg PO DAILY 07/29/19 09/25/21 History folic acid 1 mg tablet 1 mg PO DAILY 08/04/19 09/25/21 History aspirin 81 mg PO DAILY 11/19/19 09/25/21 History cyanocobalamin (vitamin B-12) 1,000 mcg PO .COMPLEX 02/25/20 09/25/21 History 1,000 mcg tablet ergocalciferol (vitamin D2) 1,250 See Rx Instructions .ROUTE 01/05/21 09/25/21 Rx mcg (50,000 unit) capsule .COMPLEX #4 cap albuterol sulfate 2.5 mg INHALATION Q4-6H PRN #90 ml 06/09/21 09/25/21 Rx albuterol sulfate 90 mcg/actuation 2 puff INHALATION Q6H PRN #8.5 g 06/09/21 09/25/21 Rx aerosol inhaler levothyroxine 75 mcg tablet See Rx Instructions .ROUTE 08/02/21 09/25/21 Rx .COMPLEX #90 tablet alprazolam 0.5 mg tablet 0.5 mg PO BID PRN #60 tablet 08/08/21 09/25/21 Rx pantoprazole 20 mg tablet,delayed See Rx Instructions .ROUTE 08/08/21 09/25/21 Rx release .COMPLEX #90 tablet atorvastatin 40 mg tablet See Rx Instructions .ROUTE 08/17/21 09/25/21 Rx .COMPLEX #90 tablet benzonatate 200 mg capsule 200 mg PO TID PRN #30 cap 09/18/21 09/25/21 Rx nystatin 100,000 unit/gram topical 1 applic TOPICAL BID PRN #30 g 09/19/21 09/25/21 Rx cream nebivolol [Bystolic] 5 mg PO HS 09/20/21 09/25/21 History hydrocodone 5 mg-acetaminophen 325 1 tablet PO Q4-6H #15 tablet MDD 6 09/21/21 09/25/21 Rx mg tablet Patient hx anesthesia problems: none Family hx anesthesia problems: none Results Review: All pre-operative results and documents have been reviewed as part of the pre-operative evaluation. FORMERLY [facility] Past Medical History Medical History Adenomatous colon polyp Adult hypothyroidism Bradycardia Carotid artery disease Status post left carotid endarterectomy. 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 Diverticulosis With history of diverticulitis. Dizziness Dysphagia Fibromyalgia GERD (gastroesophageal reflux disease) History of cervical cancer History of colon polyps History of colon polyps Hx of deep venous thrombosis Hyperglycemia Hyperlipidemia Hypersomnia Hypothyroidism Low hemoglobin Mouth pain Nicotine abuse Obesity On prison drug therapy Osteoarthritis Other and unspecified hyperlipidemia Otitis media Palpitations Personal history of nicotine dependence Positive colorectal cancer screening using Cologuard test Recurrent falls Symptomatic PVCs On metoprolol 50 milligrams daily. Tobacco abuse Tobacc
[2021-09-25] MEDS: ACETAMINOPHEN 500 MG TABLET 1000 MG PO (10:20)
[2021-09-25] MEDS: LACTATED RINGERS 1,000 ML 30 ML IV CONT ×2 (11:15→13:13)
[2021-09-25] MEDS: KETOROLAC 15 MG/ML VIAL (*BKC) IV PUSH (11:16)
--- NOTE | 2021-09-25 12:06 | WPDHPUPDATE1 ---
History and Physical Update Update Date/Time: 09/25/21 12:06 History and Physical has been reviewed, including an updated exam of the patient. There are NO changes in the patient's condition. Risks, benefits, and alternatives have been discussed and questions answered. Patient agrees to proceed with procedure.
[2021-09-25] MEDS: ceFAZolin 2 GM/D5W 50 ML 2 GM/50 ML BAG IVPB (12:10)
[2021-09-25] MEDS: BUPIVACAINE/EPINEPHRINE 0.5% 10 ML VIAL 20 ML INFILTRATE (12:43)
--- NOTE | 2021-09-25 13:34 | P.OP_ITS ---
Procedure Note - Detailed Date of Procedure 09/25/21 Pre-op Diagnosis medial meniscus tear left knee Post-op Diagnosis same Procedure Performed Arthroscopic partial medial meniscectomy, left knee Surgeon Tay Orozco MD Plate And Frame Filter Operator Stefani Reyes PA-C Anesthesia general Findings Complex medial meniscus tear. Lateral compartment benign. ACL intact. Medial femur chondromalacia grade 3, medial tibia grade 2. Lateral femur chondromalacia grade 0, lateral tibia grade 0. Patellar grade 0, trochlea grade 3 central contained. Description of Procedure The patient was identified and the surgical site confirmed and signed in the preoperative holding area. Antibiotics were started per protocol. She was brought to the operative room and transferred to the OR table. A general anesthetic was administered. Supine position with the operative lower extremity position in the leg rodriguez after placement of a well padded tourniquet. The leg support was lowered and the contralateral limb was supported with a soft bolster. The knee was prepped and draped in the usual sterile fashion. A time- out was performed. The portal sites were marked and infiltrated with 0.5% Marcaine 20 mL. The limb was exsanguinated and the tourniquet inflated to 300 mL Hg. Standard inferolateral and inferomedial portals were established. Inflow was obtained with the saline pump. The camera was introduced. Diagnostic inspection of the joint was accomplished. The meniscus was debrided with the arthroscopic shaver and punches until stable. The radiofrequency probe was also used for further d?bridement. The arthroscopic instruments were removed. The tourniquet released and wounds closed with subcutaneous 4-0 Monocryl absorbable suture. Steri strips and a sterile dressing were applied. A light elastic wrap was placed. The patient was extubated and brought to the recovery room in stable condition. Estimated Blood Loss 5 Tourniquet Time 16 Drains No Complications No immediate complications Condition stable Disposition PACU
== END 2021-09-25 15:45 | disposition home or self-care (01) ==
PROVIDERS: PCP Internal Medicine; Visit Provider Orthopaedic Surgery
PROC: (CPT 29870; principal; 2021-09-25 12:00)
DX: M23.332 Other meniscus derangements, other medial meniscus, left knee (principal); I25.10 Atherosclerotic heart disease of native coronary artery without angina pectoris; J44.9 Chronic obstructive pulmonary disease, unspecified; E03.9 Hypothyroidism, unspecified; E78.5 Hyperlipidemia, unspecified; M79.7 Fibromyalgia; K21.9 Gastro-esophageal reflux disease without esophagitis; Z86.73 Personal history of transient ischemic attack (TIA), and cerebral infarction without residual deficits; E55.9 Vitamin D deficiency, unspecified; E53.8 Deficiency of other specified B group vitamins; I49.3 Ventricular premature depolarization; E66.9 Obesity, unspecified; Z68.31 Body mass index [BMI] 31.0-31.9, adult; Z98.1 Arthrodesis status; F17.210 Nicotine dependence, cigarettes, uncomplicated; Z79.51 Long term (current) use of inhaled steroids; Z79.01 Long term (current) use of anticoagulants; Z79.82 Long term (current) use of aspirin; Z79.891 Long term (current) use of opiate analgesic
CPT/HCPCS: 29881; A9270; J0690; J1100; J1885; J2250; J2405; J2704; J3010; J7120

== ENCOUNTER 2021-10-09 20:26 | Emergency (ER) | payer MEDICARE, MEDICAID, SELFPAY ==
--- NOTE | ~2021-10-09 | XR_ITS ---
EXAMINATION: XR knee RT 3V DATE: 10/10/2021 01:51 INDICATION: Right knee pain and swelling. TECHNIQUE: 3 views of right knee were obtained. COMPARISON: Right knee radiographs 07/03/2021 FINDINGS: There is a total right knee arthroplasty without patellar resurfacing in near-anatomic alig nment. No periprosthetic lucency to suggest loosening or infection. No fracture. There are osteophyte s of the patella. No knee joint effusion. IMPRESSION: 1. Total right knee arthroplasty in near-anatomic alignment. 2. Mild osteoarthritis of patellofemoral compartment. Reviewed, dictated and finalized at location A. AS CASTING DIRECTOR
[2021-10-09 20:31] VITALS: BP 166/76; PULSE 86; RESP 20; TEMP 35.9; O2SAT 98
[2021-10-10 00:35] VITALS: BP 99/84; PULSE 61; RESP 16; O2SAT 97
[2021-10-10 01:44] LABS: Basophils Percent Auto 0.5 % (0.2-1.2); Eosinophils Absolute Auto 0.3 K/mm3 (0-0.3); Eosinophils Percent Auto 4.2 % (0-4.4); Hematocrit 38.7 % (37.0-47.0); Hemoglobin 12.7 g/dL (12.0-15.0); Immature Granulocyte Absolute 0.02 K/mm3 (0.00-0.031); Immature Granulocyte Percent A 0.3 % (0-0.5); Lymphocytes Absolute Auto 2.56 K/mm3 (0.9-3.2); Lymphocytes Percent Auto 32.4 % (18.3-44.2); Mean Corpuscular HGB Conc 32.8 g/dl (32-36); Mean Corpuscular Hemoglobin 29.4 pg (26-34); Mean Corpuscular Volume 89.6 fl (80-100); Mean Platelet Volume 9.3 fl (7.4-10.4); Monocytes Absolute Auto 0.5 K/mm3 (0.1-0.6); Monocytes Percent Auto 5.8 % (2.6-8.5); Neutrophils Absolute Auto 4.5 K/mm3 (1.3-6.7); Neutrophils Percent Auto 56.8 % (45.5-73.1); Platelet Count Result 269 k/mm3 (150-375); Red Blood Count 4.32 M/mm3 (4.2-5.4); Red Cell Distribution Width 13.5 % (11.5-14.5); White Blood Count 7.9 K/mm3 (4.5-10.0)
--- NOTE | 2021-10-10 01:45 | ED.EXTPRO ---
HPI - Extremity Problem General Chief complaint: Extremity Problem,Nontraumatic <Theodore Hernandez MD - Last Filed: 10/11/21 07:09> Stated complaint: right knee pain, redness and swelling <Theodore Hernandez MD - Last Filed: 10/11/21 07:09> Time Seen by Provider: 10/10/21 00:44 <Theodore Hernandez MD - Last Filed: 10/11/21 07:09> Source: patient and family <Theodore Hernandez MD - Last Filed: 10/11/21 07:09> Mode of arrival: ambulatory <Theodore Hernandez MD - Last Filed: 10/11/21 07:09> Limitations: no limitations <Theodore Hernandez MD - Last Filed: 10/11/21 07:09> History of Present Illness HPI Narrative: 61-year-old female History of DVT Had a meniscectomy on her left knee 2 weeks ago Today her right knee started to bother her becoming progressively more painful to bear weight There was no history of injury She had a joint replacement in the right knee about 3 years ago She was actually at her orthopedist's office in the afternoon for a postop check on the recently operated knee but they did not look at the painful knee No fever, no distal swelling <Theodore Hernandez MD - Last Filed: 10/11/21 07:09> Related Data Home medications: Home Medications Medication Instructions Recorded Confirmed rivaroxaban 20 mg tablet 20 mg PO DAILY 07/29/19 09/25/21 folic acid 1 mg tablet 1 mg PO DAILY 08/04/19 09/25/21 aspirin 81 mg PO DAILY 11/19/19 09/25/21 cyanocobalamin (vitamin B-12) 1,000 mcg PO .COMPLEX 02/25/20 09/25/21 1,000 mcg tablet nebivolol [Bystolic] 5 mg PO HS 09/20/21 09/25/21 <Theodore Hernandez MD - Last Filed: 10/11/21 07:09> Allergies/Adverse reactions: Allergies Allergy/AdvReac Type Severity Reaction Status Date / Time codeine Allergy Severe Difficulty Verified 10/09/21 20:36 Breathing latex Allergy Severe Blister Verified 10/09/21 20:36 levofloxacin Allergy Severe BLISTERS Verified 10/09/21 20:36 ON BODY morphine Allergy Severe Low blood Verified 10/09/21 20:36 pressure oxycodone Allergy Severe Rash Verified 10/09/21 20:36 penicillin G Allergy Severe ANAPHYLACTI Verified 10/09/21 20:36 C Penicillins Allergy Severe Stopped Verified 10/09/21 20:36 Breathing vancomycin Allergy Severe Red Pablito Verified 10/09/21 20:36 hydrocodone Allergy Intermediate Itching Verified 10/09/21 20:36 hydromorphone Allergy Intermediate Blister Verified 10/09/21 20:36 shellfish derived AdvReac Severe Swelling Verified 10/09/21 10:44 of Lip/Tongue/Throat DRINKING ALCOHOL Allergy Severe BLISTERS Uncoded 09/25/21 10:12 ON BODY <Theodore Hernadnez MD - Last Filed: 10/11/21 07:09> Review of Systems Review of Systems: All systems reviewed & are unremarkable except as noted in HPI and below <Theodore Hernandez MD - Last Filed: 10/11/21 07:09> Constitutional: Constitutional: Reports no additional constitutional complaints, Denies chills, Denies fever(s) and Denies headache(s) <Theodore Hernandez MD - Last Filed: 10/11/21 07:09> Eyes: Eyes: Reports no additional eye complaints and Denies change in vision <Theodore Hernandez MD - Last Filed: 10/11/21 07:09> ENT: Denies headache(s) <Theodore Hernandez MD - Last Filed: 10/11/21 07:09> Cardiovascular: Cardiovascular: Denies dyspnea <Theodore Hernandez MD - Last Filed: 10/11/21 07:09> Genitourinary: Genitourinary: Denies urinary frequency and Denies dysuria <Theodore Hernandez MD - Last Filed: 10/11/21 07:09> Musculoskeletal: Musculoskeletal: Reports myalgias, Denies deformity, Reports arthralgias, Reports joint swelling and Denies numbness <Theodore Hernandez MD - Last Filed: 10/11/21 07:09> Integumentary/Breasts: Skin/Breast: Denies wounds <Theodore Hernandez MD - Last Filed: 10/11/21 07:09> Neurologic: Denies headache(s) <Theodore Hernandez MD - Last Filed: 10/11/21 07:09> Endocrine: Endocrine: Reports no additional endocrine complaints <Theodore Hernandez MD - Last Filed: 10/11/21 07:09> Hematologic/Lymphatic: Hematologic/Lymphatic
[2021-10-10 02:02] VITALS: BP 110/72; PULSE 61; RESP 16; O2SAT 97
[2021-10-10] MEDS: KETOROLAC 30 MG/ML VIAL (*BKC) IV PUSH (02:02)
[2021-10-10 02:04] LABS: D Dimer 0.48 ug/mL (<0.48)
[2021-10-10 02:06] LABS: CRP < 0.5 mg/dL (<1.0); Erythrocyte Sedimentation Rate 36 mm/hr (0-20); Uric Acid 4.7 mg/dL (2.5-7.5)
[2021-10-10 03:26] VITALS: BP 119/52; PULSE 66; RESP 18; O2SAT 98
== END 2021-10-10 03:27 | disposition home or self-care (01) ==
PROVIDERS: Emergency Provider Emergency Medicine; PCP Internal Medicine
DX: M25.561 Pain in right knee (principal); E03.9 Hypothyroidism, unspecified; E78.5 Hyperlipidemia, unspecified; I25.10 Atherosclerotic heart disease of native coronary artery without angina pectoris; J44.9 Chronic obstructive pulmonary disease, unspecified; I69.911 Memory deficit following unspecified cerebrovascular disease; M79.7 Fibromyalgia; K21.9 Gastro-esophageal reflux disease without esophagitis; Z96.651 Presence of right artificial knee joint; Z85.41 Personal history of malignant neoplasm of cervix uteri; Z86.718 Personal history of other venous thrombosis and embolism; Z86.010 Personal history of colon polyps; E53.8 Deficiency of other specified B group vitamins; E55.9 Vitamin D deficiency, unspecified; E66.9 Obesity, unspecified; Z98.1 Arthrodesis status; F17.210 Nicotine dependence, cigarettes, uncomplicated
CPT/HCPCS: 36415; 73562; 84550; 85025; 85380; 85652; 86140; 93971; 96374; 99284; J1885

== ENCOUNTER 2021-10-10 07:23 | Outpatient (CLI) | payer MEDICARE, MEDICAID, SELFPAY ==
--- NOTE | ~2021-10-10 | US_ITS ---
EXAMINATION:US venous doppler LE RT INDICATION:Right leg swelling and pain TECHNIQUE: Multiple grayscale, color flow and Doppler images of the right lower extremity deep venous systems were obtained and reviewed. COMPARISON:No prior studies for comparison. FINDINGS: The common femoral, superficial femoral and popliteal veins demonstrate normal respiratory variation, augmentation and compressibility. Color flow is also seen within the posterior tibial, pe roneal, greater saphenous and profunda veins. IMPRESSION: 1: No lower extremity deep venous thrombosis. Reviewed, dictated and finalized at location D. CAL RECEPTIONIST MEDICAL ASSISTANT
== END 2021-10-10 07:24 | disposition home or self-care (01) ==
PROVIDERS: PCP Internal Medicine; Visit Provider Internal Medicine
DX: M79.89 Other specified soft tissue disorders (principal)
CPT/HCPCS: 93971

== ENCOUNTER 2022-01-24 20:22 | Emergency (ER) | payer MEDICARE, MEDICAID, SELFPAY ==
--- NOTE | ~2022-01-24 | XR_ITS ---
EXAMINATION: XR chest 1V portable Exam Date/Time: 01/24/2022 21:35 CDT CLINICAL HISTORY: COPD, CAD, HX CVA, HX DVT, COUGH, WEAKNESS Comparison: 01/25/2021. RESULT: Lines, tubes, and devices: Partially visualized cervical fusion hardware. Lungs and pleura: Clear. Cardiomediastinal silhouette: Stable cardiomediastinal silhouette. Other: No acute osseous or upper abdominal finding. IMPRESSION: No acute cardiopulmonary process Reviewed, dictated and finalized at location K.
[2022-01-24 20:32] VITALS: BP 105/55; PULSE 76; RESP 16; TEMP 37.4; O2SAT 96
[2022-01-24 20:38] LABS: Basophils Percent Auto 0.2 % (0.2-1.2); Hematocrit 40.2 % (37.0-47.0); Hemoglobin 12.8 g/dL (12.0-15.0); Immature Granulocyte Absolute 0.02 K/mm3 (0.00-0.031); Immature Granulocyte Percent A 0.4 % (0-0.5); Lymphocytes Percent Auto 35.6 % (18.3-44.2); Mean Corpuscular HGB Conc 31.8 g/dl (32-36); Mean Corpuscular Hemoglobin 28.5 pg (26-34); Mean Corpuscular Volume 89.5 fl (80-100); Mean Platelet Volume 9.6 fl (7.4-10.4); Monocytes Absolute Auto 0.5 K/mm3 (0.1-0.6); Monocytes Percent Auto 10.3 % (2.6-8.5); Neutrophils Absolute Auto 2.6 K/mm3 (1.3-6.7); Neutrophils Percent Auto 53.5 % (45.5-73.1); Platelet Count Result 183 k/mm3 (150-375); Red Blood Count 4.49 M/mm3 (4.2-5.4); Red Cell Distribution Width 13.4 % (11.5-14.5); White Blood Count 4.8 K/mm3 (4.5-10.0)
[2022-01-24 20:48] LABS: Alanine Aminotransferase 29 U/L (6-35); Albumin Level 4.2 g/dL (3.5-5.1); Alkaline Phosphatase 92 U/L (38-126); Anion Gap 8 mmol/L (8-16); Aspartate Amino Transferase 49 U/L (14-36); Bilirubin,Total 0.9 mg/dL (0.2-1.3); Blood Urea Nitrogen 13 mg/dL (7-17); Calcium 8.3 mg/dL (8.4-10.2); Carbon Dioxide 25 mmol/L (22-30); Chloride 103 mmol/L (98-107); Estimated CRCL calculation 42 ml/min; Estimated Glomerular Filt Rate 42; Glucose 103 mg/dL (65-110); Lipase 103 U/L (23-300); Potassium 3.2 mmol/L (3.4-5.0); Sodium 136 mmol/L (137-145)
--- NOTE | 2022-01-24 21:16 | ED.GENADULT ---
HPI - General Adult General Chief complaint: Nausea/Vomiting/Diarrhea Stated complaint: nausea Time Seen by Provider: 01/24/22 21:05 Source: RN notes reviewed History of Present Illness HPI narrative: Patient presents emergency department from home for generalized weakness. Patient states she began to feel bad on the evening of Saturday, January 22. States that she has been mainly sleeping in bed since that time she states she has had episodes of nausea and 1 episode of emesis yesterday and did take Zofran. She states she had missed several doses of her Xarelto but did take it today she states that she has had no measured fevers or chills denies any rhinorrhea or sore throat states she has a chronic cough from being a smoker but denies any new cough denies coughing up any phlegm she denies any abdominal pain or diarrhea Related Data Home Medications Medication Instructions Recorded Confirmed rivaroxaban 20 mg tablet 20 mg PO DAILY 07/29/19 11/06/21 folic acid 1 mg tablet 1 mg PO DAILY 08/04/19 11/06/21 aspirin 81 mg PO DAILY 11/19/19 11/06/21 cyanocobalamin (vitamin B-12) 1,000 mcg PO .COMPLEX 02/25/20 11/06/21 1,000 mcg tablet nebivolol [Bystolic] 5 mg PO HS 09/20/21 11/06/21 Allergies Allergy/AdvReac Type Severity Reaction Status Date / Time codeine Allergy Severe Difficulty Verified 01/24/22 20:35 Breathing latex Allergy Severe Blister Verified 01/24/22 20:35 levofloxacin Allergy Severe BLISTERS Verified 01/24/22 20:35 ON BODY morphine Allergy Severe Low blood Verified 01/24/22 20:35 pressure oxycodone Allergy Severe Rash Verified 01/24/22 20:35 penicillin G Allergy Severe ANAPHYLACTI Verified 01/24/22 20:35 C Penicillins Allergy Severe Stopped Verified 01/24/22 20:35 Breathing vancomycin Allergy Severe Red Pablito Verified 01/24/22 20:35 hydrocodone Allergy Intermediate Itching Verified 01/24/22 20:35 hydromorphone Allergy Intermediate Blister Verified 01/24/22 20:35 shellfish derived AdvReac Severe Swelling Verified 11/06/21 11:19 of Lip/Tongue/Throat DRINKING ALCOHOL Allergy Severe BLISTERS Uncoded 09/25/21 10:12 ON BODY Review of Systems Review of Systems: Gen.: Denies fevers or chills ENT: Denies congestion Respiratory: Reports chronic cough CV: Denies chest pain or palpitations GI: Denies abdominal pain nausea, emesis or diarrhea denies burning, urgency, frequency or hematuria Musculoskeletal: Denies back pain or muscle pain Neuro: Reports weakness Skin: Denies rash Except as documented, all other systems reviewed and negative [facility] Past Medical History Medical History Adenomatous colon polyp Adult hypothyroidism Bradycardia Carotid artery disease Status post left carotid endarterectomy. 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 Diverticulosis With history of diverticulitis. Dizziness Dysphagia Fibromyalgia GERD (gastroesophageal reflux disease) History of cervical cancer History of colon polyps History of colon polyps Hx of deep venous thrombosis Hyperglycemia Hyperlipidemia Hypersomnia Hypothyroidism Low hemoglobin Mouth pain Nicotine abuse Obesity On adjunct faculty for medical terminology drug therapy Osteoarthritis Other and unspecified hyperlipidemia Otitis media Palpitations Personal history of nicotine dependence Positive colorectal cancer screening using Cologuard test Recurrent falls Symptomatic PVCs On metoprolol 50 milligrams daily. Tobacco abuse Tobacco dependence Vertigo Vitamin B12 deficiency Vitamin D deficiency Surgical History Surgical History History of arthroplasty of right knee History of left-sided carotid endarterectomy History of neck surgery History of shoulder surgery Hx of tonsillectomy Hx of
[2022-01-24] MEDS: SODIUM CHLORIDE 0.9% IV 1,000 ML 999 ML IV CONT (21:36)
[2022-01-24 21:51] LABS: Lactic Acid Reflex 0.8 mmol/L (0.7-2.0)
[2022-01-24 21:56] LABS: INR 1.6; Prothrombin Time 18.7 Seconds (11.1-14.7)
[2022-01-24 21:57] LABS: Partial Thromboplastin Time 41.6 SECONDS (22.3-36.8)
[2022-01-24 22:18] LABS: Influenza A QL RT-PCR Negative (Negative); Influenza B QL RT-PCR Negative (Negative); SARS-CoV-2 RNA PCR Positive
[2022-01-24 22:23] VITALS: BP 132/64; PULSE 69; RESP 18; TEMP 36.6; O2SAT 96
--- NOTE | 2022-01-24 22:37 | PC.NURSE ---
walking pulse ox done and pt only dropped to 95%
[2022-01-24] MEDS: POTASSIUM CHLORIDE 20 MEQ TABLET PO (22:41)
[2022-01-24 23:00] LABS: Appearance Urine Clear (Clear); Bilirubin Urine 1+ (Negative); Blood Urine 1+ (Negative); Color Urine Yellow (Yellow); Glucose Urine UA Negative (Negative); Ketones Urine Trace mg/dL (Negative); Leukocyte Esterase Ur Negative LEU/UL (Negative); Nitrate Urine Negative (Negative); Protein Urine 1+ mg/dL (Negative); Specific Grav Ur >= 1.030 (1.001-1.035); Urobilinogen Urine 0.2 mg/dL (<2.0); pH Urine 5.5 (5.0-9.0)
--- NOTE | 2022-01-24 23:11 | PC.NURSE ---
assumed care of pt. at this time. Report from MIKHAIL Limon
[2022-01-24 23:14] LABS: Bacteria Urine Trace /hpf; Mucus Urine Few /lpf; Squamous Epithelial Cell Urine Many /hpf (Few)
[2022-01-24 23:25] LABS: Add Urine Microscopic? YES
== END 2022-01-24 23:40 | disposition home or self-care (01) ==
PROVIDERS: Emergency Provider Emergency Medicine; PCP Internal Medicine
DX: U07.1 COVID-19 (principal); J44.9 Chronic obstructive pulmonary disease, unspecified; I25.10 Atherosclerotic heart disease of native coronary artery without angina pectoris; I69.911 Memory deficit following unspecified cerebrovascular disease; E03.9 Hypothyroidism, unspecified; E78.5 Hyperlipidemia, unspecified; M79.7 Fibromyalgia; M19.90 Unspecified osteoarthritis, unspecified site; E66.9 Obesity, unspecified; Z68.30 Body mass index [BMI] 30.0-30.9, adult; E53.8 Deficiency of other specified B group vitamins; E55.9 Vitamin D deficiency, unspecified; Z86.010 Personal history of colon polyps; Z85.41 Personal history of malignant neoplasm of cervix uteri; Z98.1 Arthrodesis status; Z96.651 Presence of right artificial knee joint; Z79.01 Long term (current) use of anticoagulants; F17.210 Nicotine dependence, cigarettes, uncomplicated
CPT/HCPCS: 36415; 71045; 80053; 81001; 83605; 83690; 85025; 85610; 85730; 87502; 96360; 99283; A9270; C9803; J7030; U0003; U0005

== ENCOUNTER 2022-02-07 10:22 | Outpatient (CLI) | payer MEDICARE, MEDICAID, SELFPAY ==
[2022-02-07 11:21] LABS: Basophils Percent Auto 0.4 % (0.2-1.2); Eosinophils Absolute Auto 0.1 K/mm3 (0-0.3); Eosinophils Percent Auto 1.1 % (0-4.4); Hematocrit 43.5 % (37.0-47.0); Hemoglobin 14.1 g/dL (12.0-15.0); Immature Granulocyte Absolute 0.03 K/mm3 (0.00-0.031); Immature Granulocyte Percent A 0.4 % (0-0.5); Lymphocytes Absolute Auto 2.23 K/mm3 (0.9-3.2); Lymphocytes Percent Auto 27.4 % (18.3-44.2); Mean Corpuscular HGB Conc 32.4 g/dl (32-36); Mean Corpuscular Hemoglobin 28.8 pg (26-34); Monocytes Absolute Auto 0.5 K/mm3 (0.1-0.6); Monocytes Percent Auto 6.5 % (2.6-8.5); Neutrophils Absolute Auto 5.2 K/mm3 (1.3-6.7); Neutrophils Percent Auto 64.2 % (45.5-73.1); Platelet Count Result 340 k/mm3 (150-375); Red Blood Count 4.89 M/mm3 (4.2-5.4); Red Cell Distribution Width 13.3 % (11.5-14.5); White Blood Count 8.2 K/mm3 (4.5-10.0)
[2022-02-07 11:36] LABS: Chloride 103 mmol/L (98-107)
[2022-02-07 11:45] LABS: Alanine Aminotransferase 25 U/L (6-35); Albumin Level 4.4 g/dL (3.5-5.1); Alkaline Phosphatase 103 U/L (38-126); Anion Gap 5 mmol/L (8-16); Aspartate Amino Transferase 28 U/L (14-36); Bilirubin,Total 0.7 mg/dL (0.2-1.3); Blood Urea Nitrogen 9 mg/dL (7-17); Calcium 9.1 mg/dL (8.4-10.2); Carbon Dioxide 29 mmol/L (22-30); Cholesterol 161 mg/dL (0-200); Estimated Glomerular Filt Rate 51; Glucose 98 mg/dL (65-110); HDL Direct 40 mg/dL; Potassium 4.3 mmol/L (3.4-5.0); Sodium 137 mmol/L (137-145); Triglycerides 187 mg/dL (<150)
[2022-02-07 11:48] LABS: LDL Cholesterol Direct 66 mg/dL
== END 2022-02-07 10:23 | disposition home or self-care (01) ==
PROVIDERS: PCP Internal Medicine; Referring Provider Internal Medicine Hematology & Oncology; Visit Provider Internal Medicine
DX: I82.501 Chronic embolism and thrombosis of unspecified deep veins of right lower extremity (principal); E78.49 Other hyperlipidemia; I63.9 Cerebral infarction, unspecified; E03.9 Hypothyroidism, unspecified; E78.5 Hyperlipidemia, unspecified
CPT/HCPCS: 36415; 80053; 80061; 84443; 85025

== ENCOUNTER 2022-02-23 11:40 | Outpatient (CLI) | payer MEDICARE, MEDICAID, SELFPAY ==
[2022-02-23 11:42] LABS: Basophils Percent Auto 0.6 % (0.2-1.2); Eosinophils Absolute Auto 0.2 K/mm3 (0-0.3); Eosinophils Percent Auto 3.4 % (0-4.4); Hematocrit 41.3 % (37.0-47.0); Hemoglobin 13.4 g/dL (12.0-15.0); Immature Granulocyte Absolute 0.03 K/mm3 (0.00-0.031); Immature Granulocyte Percent A 0.4 % (0-0.5); Lymphocytes Absolute Auto 1.77 K/mm3 (0.9-3.2); Mean Corpuscular HGB Conc 32.4 g/dl (32-36); Mean Corpuscular Hemoglobin 28.6 pg (26-34); Mean Corpuscular Volume 88.1 fl (80-100); Mean Platelet Volume 9.6 fl (7.4-10.4); Monocytes Absolute Auto 0.3 K/mm3 (0.1-0.6); Monocytes Percent Auto 4.4 % (2.6-8.5); Neutrophils Absolute Auto 4.4 K/mm3 (1.3-6.7); Neutrophils Percent Auto 65.2 % (45.5-73.1); Platelet Count Result 249 k/mm3 (150-375); Red Blood Count 4.69 M/mm3 (4.2-5.4); Red Cell Distribution Width 13.2 % (11.5-14.5); White Blood Count 6.8 K/mm3 (4.5-10.0)
[2022-02-23 11:46] LABS: Blood Urea Nitrogen 6 mg/dL (8-26); Carbon Dioxide 24 mmol/L (22-30); Chloride 103 mmol/L (98-109); Estimated Glomerular Filt Rate 57; Glucose 115 mg/dL (70-105); Ionized Calcium (POC) 1.14 mmol/L (1.11-1.31); Potassium 3.8 mmol/L (3.5-4.9); Sodium 140 mmol/L (138-146)
[2022-02-23 16:21] LABS: Alanine Aminotransferase 19 U/L (6-35); Albumin Level 4.2 g/dL (3.5-5.1); Alkaline Phosphatase 113 U/L (38-126); Anion Gap 8 mmol/L (8-16); Aspartate Amino Transferase 22 U/L (14-36); Bilirubin,Total 0.4 mg/dL (0.2-1.3); Blood Urea Nitrogen 8 mg/dL (7-17); Calcium 8.8 mg/dL (8.4-10.2); Carbon Dioxide 26 mmol/L (22-30); Chloride 105 mmol/L (98-107); Estimated Glomerular Filt Rate 57; Glucose 111 mg/dL (65-110); Potassium 3.7 mmol/L (3.4-5.0); Sodium 139 mmol/L (137-145)
== END 2022-02-28 09:29 | disposition home or self-care (01) ==
PROVIDERS: PCP Internal Medicine; Visit Provider Internal Medicine Hematology & Oncology
DX: D68.59 Other primary thrombophilia (principal)
CPT/HCPCS: 36415; 80047; 80053; 85025

== ENCOUNTER 2022-03-24 21:36 | Observation (INO) | payer MEDICARE, MEDICAID, SELFPAY ==
[2022-03-24] VITALS (9 sets, daily range): BP systolic 122–138; BP diastolic 64–80; PULSE 65–99; RESP 11–28; TEMP 36.2; O2SAT 98
--- NOTE | ~2022-03-24 | CT_ITS ---
EXAMINATION: CT abdomen pelvis w con DATE: 03/25/2022 00:21 INDICATION: Right lower quadrant abdominal pain TECHNIQUE: Computed tomography (CT) of the abdomen and pelvis was performed with 100 mL Omnipaque-300 intravenous contrast. Automated exposure control and iterative reconstruction technique were employe d. The dose-length product was 557.39 mGy-cm. COMPARISON: 07/08/2018 FINDINGS: Small calcified nodules in the right lower lobe consistent with old granulomatous disease. Heart size is normal. No pericardial or pleural effusion. Small sliding-type hiatal hernia. Unchanged 1.4 cm pe ripherally enhancing hemangioma at the dome of the liver. Small region of focal hepatic steatosis at the ligamentum teres. Cholecystectomy clips at the gallbladder fossa. Spleen, pancreas, bilateral adr enal glands and left kidney are normal. 4 mm low-attenuation cyst at the lower pole of the right kidn ey. There is mild inflammatory stranding surrounding the appendix which demonstrate edematous thicken ed knight measuring 11 mm in maximal diameter consistent with acute appendicitis. Mild diverticulosis with sigmoid predominance without adjacent from 3 change to suggest diverticulitis. Small bowel is no rmal with no obstruction. Bladder is normal. The uterus is not identified and has likely been surgica lly resected. Bilateral adnexa are unremarkable. No free intraperitoneal gas or fluid. No pathologica lly enlarged abdominal or pelvic lymphadenopathy. Mild scattered degenerative skeletal changes. IMPRESSION: 1. Radiographically uncomplicated acute appendicitis Reviewed, dictated and finalized at location A.
[2022-03-24 22:02] LABS: Basophils Absolute Auto 0.1 K/mm3 (0.0-0.1); Basophils Percent Auto 0.8 % (0.2-1.2); Eosinophils Absolute Auto 0.2 K/mm3 (0-0.3); Eosinophils Percent Auto 2.4 % (0-4.4); Hemoglobin 14.2 g/dL (12.0-15.0); Immature Granulocyte Absolute 0.02 K/mm3 (0.00-0.031); Immature Granulocyte Percent A 0.3 % (0-0.5); Lymphocytes Percent Auto 28.9 % (18.3-44.2); Mean Corpuscular HGB Conc 33.8 g/dl (32-36); Mean Corpuscular Hemoglobin 28.9 pg (26-34); Mean Corpuscular Volume 85.5 fl (80-100); Mean Platelet Volume 9.3 fl (7.4-10.4); Monocytes Absolute Auto 0.5 K/mm3 (0.1-0.6); Monocytes Percent Auto 7.1 % (2.6-8.5); Neutrophils Absolute Auto 4.6 K/mm3 (1.3-6.7); Neutrophils Percent Auto 60.5 % (45.5-73.1); Platelet Count Result 291 k/mm3 (150-375); Red Blood Count 4.91 M/mm3 (4.2-5.4); Red Cell Distribution Width 13.3 % (11.5-14.5); White Blood Count 7.6 K/mm3 (4.5-10.0)
[2022-03-24 22:04] LABS: Appearance Urine Clear (Clear); Bilirubin Urine 2+ (Negative); Blood Urine 1+ (Negative); Color Urine Yellow (Yellow); Glucose Urine UA Negative (Negative); Ketones Urine Negative (Negative); Leukocyte Esterase Ur Negative LEU/UL (Negative); Nitrate Urine Negative (Negative); Protein Urine Negative (Negative); Specific Grav Ur >= 1.030 (1.001-1.035); Urobilinogen Urine 0.2 mg/dL (<2.0); pH Urine 5.5 (5.0-9.0)
[2022-03-24 22:12] LABS: Bacteria Urine 3+ /hpf; Mucus Urine Heavy /lpf; RBC Urine 0-2 /hpf (0-2); Squamous Epithelial Cell Urine Many /hpf (Few)
[2022-03-24 22:17] LABS: Add Urine Microscopic? YES
[2022-03-24 22:17] LABS: Alanine Aminotransferase 36 U/L (6-35); Albumin Level 4.6 g/dL (3.5-5.1); Alkaline Phosphatase 116 U/L (38-126); Anion Gap 7 mmol/L (8-16); Aspartate Amino Transferase 61 U/L (14-36); Bilirubin,Total 1.1 mg/dL (0.2-1.3); Blood Urea Nitrogen 12 mg/dL (7-17); Calcium 9.4 mg/dL (8.4-10.2); Carbon Dioxide 26 mmol/L (22-30); Chloride 105 mmol/L (98-107); Estimated CRCL calculation 55 ml/min; Estimated Glomerular Filt Rate 57; Glucose 92 mg/dL (65-110); Lipase 51 U/L (23-300); Potassium 3.7 mmol/L (3.4-5.0); Sodium 138 mmol/L (137-145)
--- NOTE | 2022-03-24 22:30 | ED.ABDPAIN ---
HPI - Abdominal Pain General Chief Complaint: Abdominal Pain <Too Campa APRN - Last Filed: 03/25/22 02:46> Stated Complaint: pain abd right side <Too Campa APRN - Last Filed: 03/25/22 02:46> Time Seen by Provider: 03/24/22 22:25 <Too Campa GRAIN ELEVATOR MOTOR STARTER - Last Filed: 03/25/22 02:46> History of Present Illness HPI narrative: 61-year-old female presents the emergency room for evaluation of right lower quadrant abdominal pain. Patient states pain started yesterday as a associated with nausea. Describes the pain as sharp and is worse with ambulation and with movement. Denies any radiating pain. <Too Campa APRN - Last Filed: 03/25/22 02:46> Related Data Home Medications: Home Medications Medication Instructions Recorded Confirmed rivaroxaban 20 mg tablet (Xarelto) 20 mg PO DAILY 07/29/19 03/08/22 folic acid 1 mg tablet 1 mg PO DAILY 08/04/19 03/08/22 aspirin 81 mg chewable tablet 81 mg PO DAILY 11/19/19 03/08/22 cyanocobalamin (vitamin B-12) 1,000 mcg PO .COMPLEX 02/25/20 03/08/22 1,000 mcg tablet (Vitamin B-12) nebivolol 5 mg tablet (Bystolic) 5 mg PO HS 09/20/21 03/08/22 <Too Campa, GRAIN ELEVATOR MOTOR STARTER - Last Filed: 03/25/22 02:46> Allergies/Adverse Reactions: Allergies Allergy/AdvReac Type Severity Reaction Status Date / Time codeine Allergy Severe Difficulty Verified 03/08/22 07:48 Breathing latex Allergy Severe Blister Verified 03/08/22 07:48 levofloxacin Allergy Severe BLISTERS Verified 03/08/22 07:48 ON BODY morphine Allergy Severe Low blood Verified 03/08/22 07:48 pressure oxycodone Allergy Severe Rash Verified 03/08/22 07:48 penicillin G Allergy Severe ANAPHYLACTI Verified 03/08/22 07:48 C Penicillins Allergy Severe Stopped Verified 03/08/22 07:48 Breathing vancomycin Allergy Severe Red Pablito, Verified 03/25/22 03:54 Patient unsure of reaction hydrocodone Allergy Intermediate Itching Verified 03/08/22 07:48 hydromorphone Allergy Intermediate Blister Verified 03/08/22 07:48 shellfish derived AdvReac Severe Swelling Verified 03/08/22 07:48 of Lip/Tongue/Throat DRINKING ALCOHOL Allergy Severe BLISTERS Uncoded 03/08/22 07:48 ON BODY <Too Campa APRN - Last Filed: 03/25/22 02:46> Review of Systems Review of Systems: CONSTITUTIONAL: Denies fever, chills, or sweats. EYES: Denies visual changes, redness, or discharge. ENT: Denies rhinorrhea, congestion, sore throat, or otalgia. CARDIOVASCULAR: Denies chest pain, palpitations, or edema. RESPIRATORY: Denies cough or dyspnea. GASTROINTESTINAL: Reports abdominal pain and nausea GENITOURINARY: Denies dysuria or hematuria. SKIN: Denies rash or itching. MUSCULOSKELETAL: Denies back pain, joint pain, or myalgia. NEUROLOGIC: Denies headache, numbness, dizziness, or weakness. PSYCHIATRIC: Denies anxiety or depression. <Too Campa APRN - Last Filed: 03/25/22 02:46> [facility] Past Medical History Medical History: Medical History Adenomatous colon polyp Adult hypothyroidism Bradycardia Carotid artery disease Status post left carotid endarterectomy. Colon cancer screening Colon, diverticulosis COPD (chronic obstructive pulmonary disease) Current use of jail anticoagulation CVA (cerebral vascular accident) With short-term memory loss. Diverticulosis With history of diverticulitis. 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
[2022-03-24] MEDS: fentaNYL CITRATE INJ (*CRX) 100 MCG/2 ML VIAL 50 MCG IV PUSH (23:02)
[2022-03-24] MEDS: SODIUM CHLORIDE 0.9% IV 1,000 ML 999 ML IV CONT (23:02)
[2022-03-24] MEDS: ONDANSETRON INJ 4 MG/2 ML VIAL IV PUSH (23:02)
[2022-03-25] VITALS (16 sets, daily range): BP systolic 103–136; BP diastolic 42–78; PULSE 45–68; RESP 12–25; TEMP 36.1–36.6; O2SAT 94–100
[2022-03-25] MEDS: ONDANSETRON INJ 4 MG/2 ML VIAL IV PUSH ×2 (02:43→10:30)
[2022-03-25] MEDS: ERTAPENEM 1 GM/NS 50 ML 1 GM/50 ML BAG IVPB (03:53)
--- NOTE | 2022-03-25 03:56 | PC.NURSE ---
Pt has multiple medication allergies to different antibiotics but case was discussed between EDP, pharmacist, and hospitalist and an antibiotic was chosen because the risk to reward ratio was worth it. This RN will closely monitor pt during abx administration.
[2022-03-25] MEDS: SODIUM CHLORIDE 0.9% IV 1,000 ML 125 ML IV CONT (05:24)
--- NOTE | 2022-03-25 06:05 | PM.IMHP ---
H&P: HPI History of Present Illness Date/Time: 03/25/22 06:05 Chief Complaint: Right abdominal pain Narrative: 61-year-old female with a past medical history of coronary disease, CVA, chronic tobacco abuse, hypothyroidism and symptomatic PVCs who presented to the ER with 2 days of abdominal pain. She reported that the pain is in her right lower quadrant. It is nonradiating. It is worse with walking moving and coughing. The pain radiates to her back. As source of pain was a 7 or 8/10 in intensity and is currently a 4/10 in intensity. She has had absolutely no appetite and no desire to eat. she has had no intake of food or liquids since her symptoms started on Saturday. She reports nausea but no vomiting. She was having some subjective fevers and chills but did not check a temperature. She denies any precipitating factors. She has not had an appendectomy. She has had prior cholecystectomy. She denies having any diarrhea or changes in bowel habits. She has not bowel movement in last 2 days but she relates this to not eating. She has chronic shortness of breath due to her history of smoking. She has not smoked since the onset of her pain because she will not smoke in her house and has not gotten out of bed. She had already been cutting back her cigarettes slowly over time. She is working towards quitting altogether. She denies any dysuria, hematuria, hematochezia or melena. She has not taken any of her medications (including her Xarelto) since Saturday morning. Review of Systems Review of Systems: 12 systems were reviewed with pertinent positives and negatives per HPI. Except as documented in the HPI, all other systems were reviewed and are negative. She has not been vaccinated against COVID. She had COVID-19 and January of 2022. She denies any headache, lightheadedness, dizziness, loss of consciousness, vision changes, chest pain, weight changes, lymphedema, or loss of bowel or bladder control. [facility] Past Medical History Medical History (Updated 03/25/22 @ 06:12 by Esme Thompson DO) Adenomatous colon polyp Adult hypothyroidism Bradycardia Carotid artery disease Status post left carotid endarterectomy. Colon cancer screening Colon, diverticulosis COPD (chronic obstructive pulmonary disease) COVID-19 (01/2022) Current use of chcf anticoagulation CVA (cerebral vascular accident) With short-term memory loss. Diverticulosis With history of diverticulitis. Dizziness Dysphagia Fibromyalgia GERD (gastroesophageal reflux disease) History of cervical cancer History of colon polyps History of colon polyps Hx of deep venous thrombosis Hyperglycemia Hyperlipidemia Hypersomnia Hypothyroidism Low hemoglobin Mouth pain Nicotine abuse Obesity On chcf drug therapy Osteoarthritis Other and unspecified hyperlipidemia Otitis media Palpitations Personal history of nicotine dependence Positive colorectal cancer screening using Cologuard test Recurrent falls Symptomatic PVCs On metoprolol 50 milligrams daily. Tobacco abuse Tobacco dependence Vertigo Vitamin B12 deficiency Vitamin D deficiency Surgical History Surgical History (Updated 03/25/22 @ 06:12 by Esme Thompson DO) History of arthroplasty of right knee History of left-sided carotid endarterectomy History of neck surgery History of shoulder surgery Hx of tonsillectomy Hx of total knee arthroplasty Right S/P cholecystectomy S/P medial meniscectomy of left knee (09/2021) Status post cervical spinal fusion Status post cholecystectomy Status post left breast biopsy Status post partial hysterectomy For cervical cancer. Status post right rotator cuff repair Status post tonsillectomy Status post tubal ligation Family History Family History Mother Depression Family history of diabetes mellitus in first degree relative Father Family history of diabetes mellitus in first degree relative Acute
[2022-03-25] MEDS: LEVOTHYROXINE SODIUM INJ 100 MCG/5 ML VIAL 37.5 MCG IV PUSH (06:57)
--- NOTE | 2022-03-25 06:59 | PC.NURSE ---
Hasn't had xaralto since Saturday due to nausea and vomiting since Saturday morning
--- NOTE | 2022-03-25 07:27 | WPDANESEPPF ---
Anes - Initial Pre Proc Eval Procedure: lap appy Date/Time: 03/25/22 07:27 Surgeon: Esme Thompson DO Pre Op Diagnosis: Appendicitis Patient Data Age: 61 Gender: F Height: 1.63 m Weight: 81.6 kg Last Vital Signs Temp 36.4 C 03/25/22 05:40 Pulse 58 L 03/25/22 05:40 Resp 12 03/25/22 05:40 BP 103/43 L 03/25/22 05:40 Pulse Ox 96 03/25/22 05:40 O2 Del Method Room Air 03/24/22 21:42 Allergies Allergy/AdvReac Type Severity Reaction Status Date / Time codeine Allergy Severe Difficulty Verified 03/08/22 07:48 Breathing latex Allergy Severe Blister Verified 03/08/22 07:48 levofloxacin Allergy Severe BLISTERS Verified 03/08/22 07:48 ON BODY morphine Allergy Severe Low blood Verified 03/08/22 07:48 pressure oxycodone Allergy Severe Rash Verified 03/08/22 07:48 penicillin G Allergy Severe ANAPHYLACTI Verified 03/08/22 07:48 C Penicillins Allergy Severe Stopped Verified 03/08/22 07:48 Breathing vancomycin Allergy Severe Red P[place], Verified 03/25/22 03:54 Patient unsure of reaction hydrocodone Allergy Intermediate Itching Verified 03/08/22 07:48 hydromorphone Allergy Intermediate Blister Verified 03/08/22 07:48 shellfish derived AdvReac Severe Swelling Verified 03/08/22 07:48 of Lip/Tongue/Throat DRINKING ALCOHOL Allergy Severe BLISTERS Uncoded 03/08/22 07:48 ON BODY Home Medications Medication Instructions Recorded Confirmed Type rivaroxaban 20 mg tablet (Xarelto) 20 mg PO DAILY 07/29/19 03/25/22 History folic acid 1 mg tablet 1 mg PO DAILY 08/04/19 03/25/22 History aspirin 81 mg chewable tablet 81 mg PO DAILY 11/19/19 03/25/22 History cyanocobalamin (vitamin B-12) 1,000 mcg PO .COMPLEX 02/25/20 03/25/22 History 1,000 mcg tablet (Vitamin B-12) ergocalciferol (vitamin D2) 1,250 See Rx Instructions .Route 01/05/21 03/25/22 Rx mcg (50,000 unit) capsule .COMPLEX #4 caps albuterol sulfate 2.5 mg/3 mL 2.5 mg (3 mL) inhalation Q4-6H PRN 06/09/21 03/25/22 Rx (0.083 %) solution for nebulization shortness of breath or wheezing #90 mL albuterol sulfate 90 mcg/actuation 2 puff inhalation Q6H PRN 06/09/21 03/25/22 Rx aerosol inhaler (ProAir HFA) Shortness Of Breath #8.5 grams nebivolol 5 mg tablet (Bystolic) 5 mg PO HS 09/20/21 03/25/22 History alprazolam 0.5 mg tablet (Xanax) 0.5 mg PO BID PRN anxiety #60 tabs 03/15/22 03/25/22 Rx atorvastatin 40 mg tablet See Rx Instructions .Route 03/22/22 03/25/22 Rx .COMPLEX #90 tabs levothyroxine 75 mcg tablet 75 mcg PO DAILY 03/25/22 03/25/22 History pantoprazole 20 mg tablet,delayed 20 mg PO DAILY 03/25/22 03/25/22 History release Laboratory Tests 03/24/22 03/24/22 03/24/22 21:49 21:49 21:56 WBC 7.6 K/mm3 K/mm3 (4.5-10.0) RBC 4.91 M/mm3 M/mm3 (4.2-5.4) Hgb 14.2 g/dL g/dL (12.0-15.0) Hct 42.0 % % (37.0-47.0) MCV 85.5 fl fl (80-100) MCH 28.9 pg pg (26-34) MCHC 33.8 g/dl g/dl (32-36) RDW 13.3 % % (11.5-14.5) Plt Count 291 k/mm3 k/mm3 (150-375) MPV 9.3 fl fl (7.4-10.4) Immature Gran % (Auto) 0.3 % % (0-0.5) Neut % (Auto) 60.5 % % (45.5-73.1) Lymph % (Auto) 28.9 % % (18.3-44.2) Desha % (Auto) 7.1 % % (2.6-8.5) Eos % (Auto) 2.4 % % (0-4.4) Baso % (Auto) 0.8 % % (0.2-1.2) Lymph # (Auto) 2.20 K/mm3 K/mm3 (0.9-3.2) Desha # (Auto) 0.5 K/mm3 K/mm3 (0.1-0.6) Eos # (Auto) 0.2 K/mm3 K/mm3 (0-0.3) Baso # (Auto) 0.1 K/mm3 K/mm3 (0.0-0.1) Abs Immat Gran (auto) 0.02 K/mm3 K/mm3 (0.00-0.031) Absolute Neuts (auto) 4.6 K/mm3 K/mm3 (1.3-6.7) Absolute Nucleated RBC 0.0 K/mm3 K/mm3 (0.0-0.012) Nucleated RBC % 0.0 % % (0.0-0.2) Sodium 138 mmol/L mmol/L (137-145) Potassium 3.7 mmol/L mmol/L (3.4-5.0) Ch
[2022-03-25 07:37] LABS: Glucose Point of Care 80 mg/dl (65-105)
[2022-03-25 08:26] LABS: Hematocrit 36.9 % (37.0-47.0); Hemoglobin 11.9 g/dL (12.0-15.0); Mean Corpuscular HGB Conc 32.2 g/dl (32-36); Mean Corpuscular Hemoglobin 28.8 pg (26-34); Mean Corpuscular Volume 89.3 fl (80-100); Mean Platelet Volume 9.6 fl (7.4-10.4); Platelet Count Result 216 k/mm3 (150-375); Red Blood Count 4.13 M/mm3 (4.2-5.4); Red Cell Distribution Width 13.5 % (11.5-14.5); White Blood Count 5.7 K/mm3 (4.5-10.0)
[2022-03-25 08:37] LABS: Alanine Aminotransferase 29 U/L (6-35); Albumin Level 3.7 g/dL (3.5-5.1); Alkaline Phosphatase 92 U/L (38-126); Anion Gap 5 mmol/L (8-16); Aspartate Amino Transferase 32 U/L (14-36); Bilirubin,Total 0.9 mg/dL (0.2-1.3); Blood Urea Nitrogen 13 mg/dL (7-17); Calcium 8.3 mg/dL (8.4-10.2); Carbon Dioxide 23 mmol/L (22-30); Chloride 108 mmol/L (98-107); Estimated CRCL calculation 60 ml/min; Estimated Glomerular Filt Rate > 60; Glucose 75 mg/dL (65-110); Potassium 3.8 mmol/L (3.4-5.0); Sodium 136 mmol/L (137-145)
[2022-03-25] MEDS: PANTOPRAZOLE SODIUM IV 40 MG VIAL IV PUSH (08:47)
--- NOTE | 2022-03-25 08:55 | PM.CNGS ---
Assessment and Plan Assessment and plan (1) Acute appendicitis: Qualifiers: Acute appendicitis type: unspecified acute appendicitis type Qualified Code(s): K35.80 - Unspecified acute appendicitis Code(s): K35.80 - Unspecified acute appendicitis Status: Acute Assessment and Plan: NPO, IV abx, OR for urgent appendectomy (2) COPD (chronic obstructive pulmonary disease): Code(s): J44.9 - Chronic obstructive pulmonary disease, unspecified Status: Acute Assessment and Plan: stable, mgmt per primary team (3) Tobacco abuse: Code(s): Z72.0 - Tobacco use Status: Acute Assessment and Plan: pt is working on cessation, reports no use since Saturday (4) CVA (cerebral vascular accident): Code(s): I63.9 - Cerebral infarction, unspecified Status: Acute Assessment and Plan: stable, mgmt per primary team (5) Symptomatic PVCs: Code(s): I49.3 - Ventricular premature depolarization Status: Acute Assessment and Plan: cont B jerry History of Present Illness Consult details Consult date: 03/25/22 Reason for consult: abdominal pain Requesting physician: Esme Thompson DO Narrative: Pt is a 61 y/o F presenting to ED c/o progressively worsening RLQ abd pain since Saturday. Pt reports pain has become localized and constant. Pt reports pain is worse c movt. Pt reports assoc nausea, fevers, anorexia. Pt denies previous episodes. Review of Systems Constitutional: Constitutional: Reports as per HPI, Reports anorexia, Reports body ache(s), Reports chills, Reports fatigue, Reports fever(s), Reports lethargy, Reports malaise, Reports poor appetite, Reports weakness, Denies weight gain and Denies weight loss Eyes: Eyes: Reports no additional eye complaints ENT: Reports system reviewed and no additional complaints, except as documented Cardiovascular: Cardiovascular: Reports no additional cardiovascular complaints Respiratory: Respiratory: Reports no additional respiratory complaints Gastrointestinal: Gastrointestinal: Reports as per HPI, Reports abdominal pain, Reports bloating, Reports GI cramping, Reports early satiety, Reports nausea and Denies vomiting Genitourinary: Genitourinary: Reports no additional female genitourinary complaints Musculoskeletal: Musculoskeletal: Reports no additional musculoskeletal complaints Integumentary/Breasts: Skin/Breast: Reports system reviewed and no additional complaints, except as docu Neurologic: Reports system reviewed and no additional complaints, except as documented Psychiatric: Psychiatric: Reports no additional psychiatric complaints Endocrine: Endocrine: Reports no additional endocrine complaints Hematologic/Lymphatic: Hematologic/Lymphatic: Reports no additional hematologic/lymphatic complaints Allergic/Immunologic: Allergic/Immunologic: Reports no additional allergic/immunologic complaints [facility] Past Medical History Medical History Adenomatous colon polyp Adult hypothyroidism Bradycardia Carotid artery disease Status post left carotid endarterectomy. 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 Diverticulosis With history of diverticulitis. Dizziness Dysphagia Fibromyalgia GERD (gastroesophageal reflux disease) History of cervical cancer History of colon polyps History of colon polyps Hx of deep venous thrombosis Hyperglycemia Hyperlipidemia Hypersomnia Hypothyroidism Low hemoglobin Mouth pain Nicotine abuse Obesity On residential drug therapy Osteoarthritis Other and unspecified hyperlipidemia Otitis media Palpitations Personal history of nicotine dependence Positive colorectal cancer screening using Cologuard test Recurrent falls Symptomatic PVCs
--- NOTE | 2022-03-25 09:03 | WPDHPUPDATE1 ---
History and Physical Update Update Date/Time: 03/25/22 09:03 History and Physical has been reviewed, including an updated exam of the patient. There are NO changes in the patient's condition. Risks, benefits, and alternatives have been discussed and questions answered. Patient agrees to proceed with procedure.
--- NOTE | 2022-03-25 09:15 | P.PNAN_ITS ---
Anes - Eval Final PreProcedure Day of Procedure 03/25/22 09:15 Patient weight: obese Heart: regular rate and rhythm Lungs: clear to auscultation Airway: Mallampati scale class II Neurological: alert and oriented Last oral intake: >/= 8 hours ASA classification: IV Emergent: yes Anesthetic plan: proceed Anesthesia type and monitoring: general ETT and standard monitoring Results Review: All pre-operative results and documents have been reviewed as part of the pre- operative evaluation. Informed Consent: The patient's anesthetic plan and its attendant risks and benefits were discussed with the patient/family/POA. Questions were solicited and answers provided to the satisfaction of the patient/family/POA.
[2022-03-25] MEDS: BUPIVACAINE/EPINEPHRINE 0.25% 50 ML VIAL 30 ML INFILTRATE (09:45)
[2022-03-25] MEDS: LACTATED RINGERS 1,000 ML 30 ML IV CONT (10:00)
--- NOTE | 2022-03-25 10:00 | P.OP_ITS ---
Procedure Note - Detailed Date of Procedure 03/25/22 Pre-op Diagnosis acute appendicitis Post-op Diagnosis Same Procedure Performed laparoscopic appendectomy Surgeon Hanna Cardona MD Anesthesia General Indications 61 y/o F presenting to ED c acute appendicitis Findings acute appendicitis no evidence of perforation Description of Procedure The patient was taken to the operating room and placed in the supine position. After adequate induction of general anesthesia, the patient was prepped and draped in the normal sterile fashion. A time-out was then done to verify the patient's identity, as well as the procedure being performed. I began by making a 5 mm incision in the infraumbilical region, through this a Veress needle was placed in the peritoneal cavity. CO2 gas was then insufflated and after estrellita quate pneumoperitoneum was achieved the Veress needle was removed. Then placed a 5 mm Optiview trocar under direct visualization into the peritoneal cavity. I then insufflated through this trocar site and the endoscope was placed into the trocar. Under direct visualization, placed 2 further 5 mm suprapubic port as well as an additional 12 mm port in the left lower abdomen. At this point identified the cecum, I retracted the cecum both medially and superiorly allowing me to expose the appendix. The appendix was noted to be very dilated and inflamed especially towards the tip. The appendix was noted to be very adherent to the right lateral sidewall as well as the ileum. I was able to bluntly dissect the appendix from these adhesions. I then was able to locate the base of the appendix with the cecum. I created a window with the [place] dissector between the appendix itself and the mesoappendix. I then transected the mesoappendix with a white vascular staple load. The Endo-JAZMYNE was then reloaded with a blue staple load and I transected the base of the appendix. Once the specimen was completely detached, an endo-pouch was placed into the 12 mm port site and the specimen was removed through the endo-pouch. The appendiceal specimen will be sent to pathology for further review. I then copiously irrigated the right lower quadrant. Hemostasis was noted at both staple lines no other pathology was seen in this area. I then moved the camera to the suprapubic port to check our its port of entry. No iatrogenic injury or other pathology was noted in the upper abdomen. I then closed the 12 mm port site with a Nestor code and 0 Vicryl suture under direct visualization. At this point, the abdomen was desufflated and all ports were removed. All port sites were closed with 4 Monocryl subcuticular suture. Dermabond was placed on all wounds. The patient tolerated the procedure well and was extubated in the operating room postop. She will be sent to the recovery room in stable condition. Estimated Blood Loss 10 Urine Output 0 Drains No Packing No Pathology Yes Complications No immediate complications Condition Stable Disposition PACU [facility] Billing Surgery - Charge Forward: Surgery Billing
[2022-03-25] MEDS: fentaNYL CITRATE INJ (*CRX) 100 MCG/2 ML VIAL 25 MCG IV PUSH ×2 (10:26→10:38)
--- NOTE | 2022-03-25 10:52 | PM.IMPN ---
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 CT of the abdomen and pelvis showed concerned for acute appendicitis. White count was normal. Lab values overall were unrevealing except for mildly elevated AST and ALT both of which have now returned to normal. UA noted but probably contaminated specimen. Lipase was normal. Patient was taken to the OR for laparoscopic appendectomy on 03/25/2022. She tolerated the procedure well. Diet has been started. Appreciate General surgery input. Subjective Date/time seen: 03/25/22 10:52 Interval history: 61yo female with history of CAD, CVA, tobacco abuse and COPD here for abdominal pain and found to have acute appendicitis. Patient was unavailable due to being in surgery but now back in her room. Pain is controlled. She does feel short of breath but states this is chronic. No chest pain. No nausea or vomiting. She tolerated the liquid diet Exam Narrative: AF 97.2 113/46 50 14 97% ra Gen - NARD Chest -few basilar rhonchi in the flanks. CV - RRR S1/S2 Abd -soft. Multiple incisions are clean, dry and intact. Ext - No pedal edema Psych - Nml mood and affect Skin - Warm and dry Objective Data Vital Signs Vital Signs: Vital Signs - 24 hr 03/24/22 21:42 03/24/22 22:22 03/24/22 22:25 Temperature 97.1 F L Pulse Rate 99 82 91 Respiratory Rate 20 22 H 20 Blood Pressure 131/80 129/65 129/65 Pulse Oximetry 98 98 Oxygen Delivery Room Air Oxygen Flow Rate 03/24/22 22:30 03/24/22 22:31 03/24/22 22:45 Temperature Pulse Rate 80 81 78 Respiratory Rate 28 H 15 23 H Blood Pressure 138/71 Pulse Oximetry Oxygen Delivery Oxygen Flow Rate 03/24/22 22:46 03/24/22 23:00 03/24/22 23:36 Temperature Pulse Rate 79 82 65 Respiratory Rate 24 H 11 L 16 Blood Pressure 127/71 122/64 Pulse Oximetry 98 Oxygen Delivery Oxygen Flow Rate 03/25/22 02:19 03/25/22 03:53 03/25/22 04:34 Temperature 98 F Pulse Rate 62 63 62 Respiratory Rate 16 14 16 Blood Pressure 115/47 L 110/59 L 117/65 Pulse Oximetry 98 97 98 Oxygen Delivery Oxygen Flow Rate 03/25/22 04:18 03/25/22 05:40 03/25/22 10:00 Temperature 97.6 F 97.2 F L Pulse Rate 54 L 58 L 68 Respiratory Rate 16 12 25 H Blood Pressure 117/78 103/43 L 122/47 L Pulse Oximetry 96 96 100 Oxygen Delivery Simple Face Mask Oxygen Flow Rate 6 03/25/22 10:15 03/25/22 10:30 03/25/22 10:45 Temperature 97.2 F L Pulse Rate 53 L 50 L 50 L Respiratory Rate 19 14 14 Blood Pressure 136/54 L 117/48 L 113/46 L Pulse Oximetry 99 96 97 Oxygen Delivery Simple Face Mask Room Air Room Air Oxygen Flow Rate 6 Intake/Output Intake/Output: Intake & Output 03/22/22 03/23/22 03/24/22 03/25/22 23:59 23:59 23:59 23:59 Intake Total 1000 150 Output Total 0 Balance 1000 150 Meds/Results Medications: Active Medications Generic Name Dose Route Start Last Admin Trade Name Freq PRN Reason Stop Dose Admin Albuterol 2.5 mg 03/25/22 06:03 Albuterol Sulfate Neb 2.5 Mg/3 Ml Inh INHALATION Q4-6H PRN shortness of breath or wheezing F
--- NOTE | 2022-03-25 12:55 | PCCCNOTE ---
On 03/25/22, the student, [Tawny Nunez ], provided care and completed [facility] documentation on this patient. I have reviewed the student's documentation and agree with the findings.
--- NOTE | 2022-03-25 18:05 | PM.DS ---
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 Please see H&P for details. Hospital Course: Patient presented with abdominal pain. CT of the abdomen and pelvis showed acute appendicitis. White count was normal. Lab values overall were unrevealing except for mildly elevated AST and ALT both of which have now returned to normal. UA noted but probably contaminated specimen. Lipase was normal. Patient was taken to the OR for laparoscopic appendectomy on 03/25/2022. She tolerated the procedure well. Diet was started and advanced as she tolerated. Pain was well controlled. She was educated about the benefits of smoking cessation. She overall did well and was able to be discharged home on 03/25/2022. Time Spent with Patient Time attestation: Total time spent providing and/or coordinating discharge services: Exam Narrative: AF 97.2 113/46 50 14 97% ra Gen - NARD Chest -few basilar rhonchi in the flanks. CV - RRR S1/S2 Abd -soft. Multiple incisions are clean, dry and intact. Ext - No pedal edema Psych - Nml mood and affect Skin - Warm and dry DS: Data Data Completed and Pending Pending studies at discharge: Pending at discharge 03/25/22 09:40 Surgical [PTH] Routine Labs on day of discharge: Labs from last 24 hours 03/25/22 03/25/22 03/25/22 07:54 07:54 07:32 WBC 5.7 RBC 4.13 L Hgb 11.9 L Hct 36.9 L MCV 89.3 MCH 28.8 MCHC 32.2 RDW 13.5 Plt Count 216 MPV 9.6 Immature Gran % (Auto) Neut % (Auto) Lymph % (Auto) [place] % (Auto) Eos % (Auto) Baso % (Auto) Lymph # (Auto) [place] # (Auto) Eos # (Auto) Baso # (Auto) Abs Immat Gran (auto) Absolute Neuts (auto) Absolute Nucleated RBC Nucleated RBC % Sodium 136 L Potassium 3.8 Chloride 108 H Carbon Dioxide 23 Anion Gap 5 L BUN 13 Creatinine 0.90 Estim Creat Clear Calc 60 Estimated GFR > 60 Glucose 75 POC Capillary Glucose 80 Calcium 8.3 L Total Bilirubin 0.9 AST 32 ALT 29 Alkaline Phosphatase 92 Total Protein 7.0 Albumin 3.7 Lipase Urine Color Urine Appearance Urine pH Ur Specific Alpha Urine Protein Urine Glucose (UA) Urine Ketones Ur Blood (Man) Urine Nitrate Urine Bilirubin Urine Urobilinogen Leukocyte Esterase Rfl Urine RBC Urine WBC Ur Squamous Epith Cells Urine Bacteria Urine Mucus 03/24/22 03/24/22 03/24/22 21:56 21:49 21:49 WBC 7.6 RBC 4.91 Hgb 14.2 Hct 42.0 MCV 85.5 MCH 28.9 MCHC 33.8 RDW 13.3 Plt Count 291 MPV 9.3 Immature Gran % (Auto) 0.3 Neut % (Auto) 60.5 Lymph % (Auto) 28.9 [place] % (Auto) 7.1 Eos % (Auto) 2.4 Baso % (Auto) 0.8 Lymph # (Auto) 2.20 [place] # (Auto) 0.5 Eos # (Auto) 0.2 Baso # (Auto) 0.1 Abs
--- NOTE | 2022-03-28 07:13 | PC.NURSE ---
Urine cx is negative. Dr. Elian cruz.
--- NOTE | 2022-04-03 09:54 | PC.NURSE ---
Pathology shows acute appendicitis.
== END 2022-03-25 18:45 | disposition home or self-care (01) ==
LOC: ANHED 03-25 03:47 → ANH2MED 03-25 04:18
PROVIDERS: Surgery; Admitting Provider Internal Medicine; Emergency Provider Emergency Medicine; PCP Internal Medicine; Visit Provider Internal Medicine
PROC: 0DTJ4ZZ Resection of Appendix, Percutaneous Endoscopic Approach (ICD-10-PCS; CPT 44970; principal; 2022-03-25 09:00)
DX: K35.80 Unspecified acute appendicitis (principal); J44.9 Chronic obstructive pulmonary disease, unspecified; E03.9 Hypothyroidism, unspecified; Z86.73 Personal history of transient ischemic attack (TIA), and cerebral infarction without residual deficits; M79.7 Fibromyalgia; K21.9 Gastro-esophageal reflux disease without esophagitis; E78.5 Hyperlipidemia, unspecified; I49.3 Ventricular premature depolarization; I25.10 Atherosclerotic heart disease of native coronary artery without angina pectoris; Z86.718 Personal history of other venous thrombosis and embolism; E55.9 Vitamin D deficiency, unspecified; E53.8 Deficiency of other specified B group vitamins; Z98.1 Arthrodesis status; F17.210 Nicotine dependence, cigarettes, uncomplicated; Z79.01 Long term (current) use of anticoagulants; Z79.82 Long term (current) use of aspirin; Z79.51 Long term (current) use of inhaled steroids; E66.9 Obesity, unspecified; Z68.30 Body mass index [BMI] 30.0-30.9, adult
CPT/HCPCS: 44970; 36415; 74177; 80053; 81001; 82948; 83690; 85025; 85027; 87086; 88304; 96361; 96365; 96367; 96375; 96376; 99285; C9113; G0378; J0131; J0330; J1100; J1335; J2001; J2250; J2405; J2704; J2710; J3010; J7030; J7120; Q9967

== ENCOUNTER 2022-04-28 18:26 | Observation (INO) | payer MEDICARE, MEDICAID, SELFPAY ==
[2022-04-28] VITALS (22 sets, daily range): BP systolic 97–136; BP diastolic 40–83; PULSE 43–82; RESP 9–22; TEMP 36.4–36.5; O2SAT 96–100; BMI 32.1
--- NOTE | ~2022-04-28 | MR_ITS ---
EXAMINATION: MR brain/brain stem wo con DATE: 04/29/2022 08:04 INDICATION: TIA. TECHNIQUE: Magnetic resonance imaging (MRI) of the brain and brainstem was performed without intraven ous contrast. Sequences included sagittal and axial T1-weighted SE, axial diffusion-weighted FS SE, a xial T2*-weighted GRE, axial T2-weighted FLAIR Propeller, and axial T2-weighted Propeller. Apparent d iffusion coefficient (ADC) maps were created. COMPARISON: MRI dated 11/20/2019. FINDINGS: Brain parenchymal volume is normal for age. Normal day-white differentiation. There are sc attered mild periventricular and subcortical white matter changes, most likely related to small vesse l ischemic disease (microangiopathy). No acute infarction or hemorrhage. No ventriculomegaly or midli ne shift. Structures of the posterior fossa including 7/8th cranial nerve complexes are normal. Orbit s are symmetric. Midline sagittal images demonstrate a normal corpus callosum and craniovertebral jo ction. Sinuses and mastoids are unremarkable. IMPRESSION: 1. No acute intracranial abnormality. 2: Chronic age-related findings. Reviewed, dictated and finalized at location A.
--- NOTE | ~2022-04-28 | CT_ITS ---
EXAMINATION: CT BRAIN W/O DATE: 04/28/2022 19:18 INDICATION: Dizziness. Status post fall. TECHNIQUE: Computed tomography (CT) of the head was performed without intravenous contrast. The dose- length product was 605.33 mGy-cm. Automated exposure control and iterative reconstruction technique w ere employed. COMPARISON: No prior studies for comparison. FINDINGS: Normal brain parenchymal volume for age. Normal day-white differentiation. No acute intrac ranial hemorrhage, infarction, mass or mass effect. No ventriculomegaly or midline shift. Midline sagittal images demonstrate a normal corpus callosum, c raniovertebral junction and sella turcica. Basilar cisterns are patent. Paranasal sinuses and mastoids are pneumatized. No depressed skull fractures. IMPRESSION: 1. No acute intracranial abnormality. Reviewed, dictated and finalized at location A.
--- NOTE | 2022-04-28 18:31 | ECG_ITS ---
Measurements Intervals [place] Rate: 53 P: -9 SC: 219 QRS: 51 QRSD: 86 T: -13 QT: 429 QTc: 405 Interpretive Statements SINUS BRADYCARDIA WITH FIRST DEGREE AV BLOCK RSR' IN V1/V2 BORDERLINE ECG COMPARED TO ECG 09/21/2021 14:38:02 HEART RATE HAS DECREASED Electronically Signed On 04-29-2022 14:32:04 CDT by Ronald Torres M.D.
[2022-04-28 18:59] LABS: Basophils Percent Auto 0.3 % (0.2-1.2); Eosinophils Absolute Auto 0.2 K/mm3 (0-0.3); Hematocrit 43.6 % (37.0-47.0); Hemoglobin 13.9 g/dL (12.0-15.0); Immature Granulocyte Absolute 0.02 K/mm3 (0.00-0.031); Immature Granulocyte Percent A 0.3 % (0-0.5); Lymphocytes Absolute Auto 2.18 K/mm3 (0.9-3.2); Lymphocytes Percent Auto 33.9 % (18.3-44.2); Mean Corpuscular HGB Conc 31.9 g/dl (32-36); Mean Corpuscular Hemoglobin 28.5 pg (26-34); Mean Corpuscular Volume 89.5 fl (80-100); Mean Platelet Volume 9.6 fl (7.4-10.4); Monocytes Absolute Auto 0.4 K/mm3 (0.1-0.6); Monocytes Percent Auto 5.9 % (2.6-8.5); Neutrophils Absolute Auto 3.6 K/mm3 (1.3-6.7); Neutrophils Percent Auto 56.6 % (45.5-73.1); Platelet Count Result 283 k/mm3 (150-375); Red Blood Count 4.87 M/mm3 (4.2-5.4); Red Cell Distribution Width 13.3 % (11.5-14.5); White Blood Count 6.4 K/mm3 (4.5-10.0)
--- NOTE | 2022-04-28 19:35 | ED.DIZZY ---
HPI - Dizziness General Chief Complaint: Dizziness Stated Complaint: nausea, dizzy Time Seen by Provider: 04/28/22 18:53 History of Present Illness HPI Narrative: 61-year-old female presents emergency room secondary to dizziness. She states he went to bed in her normal state of health last night. She woke up this morning feeling extremely dizzy. When she gets up and walks she is stumbling and feels like she is falling to the right side. She states whenever she tries to change positions and is when it seems to be worse but predominantly when she goes and tries to stand. Patient states she has had a prior stroke in the past which was picked up on an MRI with similar type presentation at that time. Denies any focal weakness to her arms or legs. No visual disturbances noted. Denies any chest pain or shortness of breath. Related Data Home Medications Medication Instructions Recorded Confirmed rivaroxaban 20 mg tablet (Xarelto) 20 mg PO DAILY 07/29/19 04/13/22 folic acid 1 mg tablet 1 mg PO DAILY 08/04/19 04/13/22 aspirin 81 mg chewable tablet 81 mg PO DAILY 11/19/19 04/13/22 cyanocobalamin (vitamin B-12) 1,000 mcg PO .COMPLEX 02/25/20 04/13/22 1,000 mcg tablet (Vitamin B-12) nebivolol 5 mg tablet (Bystolic) 5 mg PO HS 09/20/21 04/13/22 pantoprazole 20 mg tablet,delayed 20 mg PO DAILY 03/25/22 04/13/22 release Allergies Allergy/AdvReac Type Severity Reaction Status Date / Time codeine Allergy Severe Difficulty Verified 04/28/22 18:39 Breathing latex Allergy Severe Blister Verified 04/28/22 18:39 levofloxacin Allergy Severe BLISTERS Verified 04/28/22 18:39 ON BODY morphine Allergy Severe Low blood Verified 04/28/22 18:39 pressure oxycodone Allergy Severe Rash Verified 04/28/22 18:39 penicillin G Allergy Severe ANAPHYLACTI Verified 04/28/22 18:39 C Penicillins Allergy Severe Stopped Verified 04/28/22 18:39 Breathing vancomycin Allergy Severe Red [place], Verified 04/28/22 18:39 Patient unsure of reaction hydrocodone Allergy Intermediate Itching Verified 04/28/22 18:39 hydromorphone Allergy Intermediate Blister Verified 04/28/22 18:39 shellfish derived AdvReac Severe Swelling Verified 04/28/22 18:39 of Lip/Tongue/Throat DRINKING ALCOHOL Allergy Severe BLISTERS Uncoded 04/28/22 18:39 ON BODY Review of Systems Review of Systems: CONSTITUTIONAL: Denies fever, chills, or sweats. EYES: Denies visual changes, redness, or discharge. ENT: Denies rhinorrhea, congestion, sore throat, or otalgia. CARDIOVASCULAR: Denies chest pain, palpitations, or edema. RESPIRATORY: Denies cough or dyspnea. GASTROINTESTINAL: Denies abdominal pain, nausea, vomiting, or diarrhea. GENITOURINARY: Denies dysuria or hematuria. SKIN: Denies rash or itching. MUSCULOSKELETAL: Denies back pain, joint pain, or myalgia. NEUROLOGIC: Denies headache, numbness, or weakness. Having dizziness and stumbling and falling to the right side when she tries to walk PSYCHIATRIC: Denies anxiety or depression. [facility] Past Medical History Medical History Adenomatous colon polyp Adult hypothyroidism Bradycardia Carotid artery disease Status post left carotid endarterectomy. 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 Diverticulosis With history of diverticulitis. Dizziness Dysphagia Fibromyalgia GERD (gastroesophageal reflux disease) History of cervical cancer History of colon polyps History of colon polyps Hx of deep venous thrombosis Hyperglycemia Hyperlipidemia Hypersomnia Hypothyroidism Low hemoglobin Mouth pain Nicotine abuse Obesity On commercial lawn specialist drug therapy Osteoarthritis Other and unspecified hyperlipidemia Otitis media Palpitations Personal history of nicotine dependence Posi
[2022-04-28 19:40] LABS: Alanine Aminotransferase 23 U/L (6-35); Albumin Level 4.2 g/dL (3.5-5.1); Alkaline Phosphatase 109 U/L (38-126); Anion Gap 8 mmol/L (8-16); Aspartate Amino Transferase 24 U/L (14-36); Bilirubin,Total 0.8 mg/dL (0.2-1.3); Blood Urea Nitrogen 9 mg/dL (7-17); Carbon Dioxide 26 mmol/L (22-30); Chloride 106 mmol/L (98-107); Estimated CRCL calculation 55 ml/min; Estimated Glomerular Filt Rate 57; Glucose 103 mg/dL (65-110); Potassium 3.8 mmol/L (3.4-5.0); Sodium 140 mmol/L (137-145)
[2022-04-28] MEDS: ASPIRIN 81 MG CHEWABLE TABLET 324 MG PO (19:52)
[2022-04-28] MEDS: MECLIZINE HCL 25 MG TABLET PO (19:54)
[2022-04-28 19:55] LABS: Troponin I < 0.012 ng/mL (0.000-0.034)
--- NOTE | 2022-04-28 20:04 | PM.IMHP ---
H&P: HPI History of Present Illness Date/Time: 04/28/22 20:04 Chief Complaint: LIGHTHEADEDNESS Narrative: this is a 61-year-old female with past medical history significant for COPD/emphysema, tobacco dependence, cerebrovascular accident, carotid artery disease, fibromyalgia, gastroesophageal reflux disease. patient presented to the emergency room today after she woke up in the morning with dizziness, lightheadedness, and when standing up and ambulating was leaning to the side denies any changes of her speech or difficulty no changes in her vision, last time she felt her usual was the night before going to bed, denies any fevers, rigors, chills, headaches, blurry vision, chest pain, leg swelling, orthopnea, PND, had a recent in her family and states that she has been under great amount of stress. [facility] Past Medical History Medical History (Updated 04/29/22 @ 00:31 by Marcie Carter MD) Adenomatous colon polyp Adult hypothyroidism Bradycardia Carotid artery disease Status post left carotid endarterectomy. Colon cancer screening Colon, diverticulosis COPD (chronic obstructive pulmonary disease) COVID-19 (01/2022) Current use of detention anticoagulation CVA (cerebral vascular accident) With short-term memory loss. Diverticulosis With history of diverticulitis. Dizziness Dysphagia Fibromyalgia GERD (gastroesophageal reflux disease) History of cervical cancer History of colon polyps History of colon polyps Hx of deep venous thrombosis Hyperglycemia Hyperlipidemia Hypersomnia Hypothyroidism Low hemoglobin Mouth pain Nicotine abuse Obesity On detention drug therapy Osteoarthritis Other and unspecified hyperlipidemia Otitis media Palpitations Personal history of nicotine dependence Positive colorectal cancer screening using Cologuard test Recurrent falls Symptomatic PVCs On metoprolol 50 milligrams daily. Tobacco abuse Tobacco dependence Vertigo Vitamin B12 deficiency Vitamin D deficiency Surgical History Surgical History History of arthroplasty of right knee History of left-sided carotid endarterectomy History of neck surgery History of shoulder surgery Hx of tonsillectomy Hx of total knee arthroplasty Right S/P cholecystectomy S/P medial meniscectomy of left knee (09/2021) Status post cervical spinal fusion Status post cholecystectomy Status post left breast biopsy Status post partial hysterectomy For cervical cancer. Status post right rotator cuff repair Status post tonsillectomy Status post tubal ligation Family History Family History Mother Depression Family history of diabetes mellitus in first degree relative Father Family history of diabetes mellitus in first degree relative Acute myocardial infarction Other Family history of allergic disorder Family history of cardiovascular disease Family history of malignant neoplasm Hypertension Social History Social History Social History: The patient is . She lives with her son in [place]. She designates her sons, Laith Howard and Kemal Islas, as her surrogate decision makers and she wishes to be a full code. She has smoked at least 1 pack of cigarettes per day for almost 40 years. She denies alcohol and drug abuse. Smoking packs per day: 1 Smoking cigarettes per day: 20.0 Years smoked: 35 Smoking pack-years: 35.00 Smoking status: Current every day smoker Second hand tobacco smoke exposure: Yes Additional smoking assessment comments: TRYING TO QUIT SMOKING - DOWN TO HALF A PACK/DAY Alcohol intake: never Substance use: never Substance use type: does not use Gender identity (if verbalized by the patient): Female Sexual Orientation (if Verbalized by the Patient): Straight or Heterosexual Spiritual care concerns: No Agree to blood pr
--- NOTE | 2022-04-28 21:14 | ADMGEN ---
This patient, Geeg Vidal, was admitted to 2 Medical Room 258-01 @2115 . Patient/family oriented to hospital policies and general routines including ID bracelet, bed and alarms, visiting hours, pain management, procedures, bathroom and other care routines, personal items, smoking policy, room service/diet, and visiting hours. Information on how to activate the Rapid Response Team has been discussed. Patient/Family are encouraged to report perceived risks to care and to ask questions if they do not understand what they are told or what they should do.
[2022-04-29] VITALS (12 sets, daily range): BP systolic 102–122; BP diastolic 42–76; PULSE 56–89; RESP 12–18; TEMP 35.8–36.6; O2SAT 97–100
[2022-04-29] MEDS: LEVOTHYROXINE SODIUM 75 MCG TABLET PO (06:12)
[2022-04-29] MEDS: PANTOPRAZOLE SOD SESQUIHYDRATE 20 MG TAB PO (08:52)
[2022-04-29] MEDS: ATORVASTATIN 40 MG TABLET PO (08:52)
[2022-04-29] MEDS: ASPIRIN 81 MG CHEWABLE TABLET PO (08:52)
[2022-04-29] MEDS: FOLIC ACID 1 MG TABLET PO (08:52)
--- NOTE | 2022-04-29 14:28 | PM.IMPN ---
Progress Note: A&P Assessment and Plan (1) Dizziness: Code(s): R42 - Dizziness and giddiness Status: Acute (2) Ataxia: Code(s): R27.0 - Ataxia, unspecified Status: Acute (3) Fibromyalgia: Code(s): M79.7 - Fibromyalgia Status: Acute (4) COPD (chronic obstructive pulmonary disease): Code(s): J44.9 - Chronic obstructive pulmonary disease, unspecified Status: Acute (5) Tobacco dependence: Code(s): F17.200 - Nicotine dependence, unspecified, uncomplicated Status: Acute (6) Carotid artery disease: Code(s): I77.9 - Disorder of arteries and arterioles, unspecified Status: Acute (7) BMI 31.0-31.9,adult: Code(s): Z68.31 - Body mass index [BMI] 31.0-31.9, adult Status: Acute (8) Hypothyroidism: Qualifiers: Hypothyroidism type: acquired Qualified Code(s): E03.9 - Hypothyroidism, unspecified Code(s): E03.9 - Hypothyroidism, unspecified Status: Acute (9) Hyperlipidemia: Qualifiers: Hyperlipidemia type: other hyperlipidemia Qualified Code(s): E78.49 - Other hyperlipidemia Code(s): E78.5 - Hyperlipidemia, unspecified Status: Acute Plan pt admitted w dizziness and unsteady gait PE findings on admission could be consistent w BPPV r/o TIA/CVA and near syncope orders placed by admitting physician 04/29/22 symptoms improved pt does have cardiac and CVA history MRI read pending ECHO pending carotid US pending cont current care POC reviewed w Neurology pt can be safely discharged if MRI negative w outpt follow up Subjective Date/time seen: 04/29/22 14:28 pt doing ok still feels a little dizzy, orthostatics negative. pt ambulating to restroom without difficulty per RN case reivewed w Neurology. pt can be safely discharged home if MRI negative w outpt follow up Review of Systems Review of Systems: All systems reviewed & are unremarkable except as noted in HPI and below Exam Narrative: APPEARANCE: Well appearing, no pain or distress, well-nourished. obese Head Normocephalic and atraumatic. EYES: EOMI, conjunctivae clear. Nystagmus noted with a leftward gaze NOSE: Normal with no drainage NECK: Supple. No adenopathy, no masses. RESPIRATORY: Clear to auscultation bilaterally, no rales, rhonchi, wheezing. CARDIOVASCULAR: Regular rate and rhythm without murmurs, rubs, or gallops. ABDOMINAL: Soft, nontender, nondistended, no hepatosplenomegaly Musculoskeletal: Moves all extremities. Strength/ROM intact, No edema, No calf tenderness. NEURO: Alert. Cranial nerves II through XII intact. SKIN:: Warm, dry. Normal Color PSYCHIATRIC: Normal affect/mood, normal interaction Objective Data Vital Signs Vital Signs: Vital Signs - 24 hr 04/28/22 18:32 04/28/22 18:48 04/28/22 18:51 Temperature Pulse Rate 73 52 L 60 Respiratory Rate 20 Blood Pressure 132/72 117/59 L 136/49 L Pulse Oximetry 99 Oxygen Delivery Room Air 04/28/22 18:53 04/28/22 18:32 04/28/22 18:36 Temperature Pulse Rate 77 61 70 Respiratory Rate 15 17 Blood Pressure 125/81 132/72 Pulse Oximetry 98 98 Oxygen Delivery 04/28/22 18:45 04/28/22 18:50 04/28/22 18:51 Temperature Pulse Rate 58 L 59 L 57 L Respiratory Rate 17 11 L 19 Blood Pressure 117/59 L 136/49 L Pulse Oximetry 98 98 99 Oxygen Delivery 04/28/22 18:54 04/28/22 19:00 04/28/22 19:01 Temperature Pulse Rate 82 69 69 Respiratory Rate 22 H 15 16 Blood Pressure 125/81 115/79 Pulse Oximetry 100 98 97 Oxygen Delivery 04/28/22 19:20 04/28/22 19:22 04/28/22 19:30 Temperature Pulse Rate 66 74 67 Respiratory Rate 9 L 18 13 Blood Pressure 97/52 L Pulse Oximetry 98 97 96 Oxygen Delivery 04/28/22 19:31 04/28/22 19:45 04/28/22 20:00 Temperature Pulse Rate 75 53 L 49 L Respiratory Rate 12 19 16 Blood Pressure 114/72 Pulse Oximetry 96 96 97 Oxygen Delivery 04/28/22 20:02 04/28/22 20:15 0
[2022-04-29 15:51] LABS: Appearance Urine Slightly Cloudy (Clear); Bilirubin Urine Negative (Negative); Blood Urine Negative (Negative); Color Urine Yellow (Yellow); Glucose Urine UA Negative (Negative); Ketones Urine Negative (Negative); Leukocyte Esterase Ur Negative LEU/UL (Negative); Nitrate Urine Negative (Negative); Protein Urine Negative (Negative); Urobilinogen Urine 0.2 mg/dL (<2.0)
[2022-04-29 15:53] LABS: Bacteria Urine Trace /hpf; Mucus Urine Rare /lpf; RBC Urine 0-2 /hpf (0-2); Squamous Epithelial Cell Urine Few /hpf (Few); WBC Urine 0-3 /hpf
[2022-04-29 15:54] LABS: Add Urine Microscopic? YES
[2022-04-29] MEDS: RIVAROXABAN 20 MG TABLET PO (16:41)
[2022-04-30] VITALS: PULSE 54
--- NOTE | 2022-04-30 | ECHO_ITS ---
Patient Info Name: Gege Vidal Age: 61 years : 1960 Gender: Female Ht: 64 in Wt: 187 lbs BSA: 1.99 m2 HR: 60 bpm BP: 95 / 48 mmHg Heart Rhythm: Sinus Rhythm Technical Quality: Fair Exam Date: 04/30/2022 8:12 AM Exam Location: [facility] Patient Status: Outpatient Admit Date: 04/28/2022 Staff Ordering Physician: Marcie Carter MD Physiatrist: Vani Mendez RDCS Attending Provider: Marcie Carter MD Referring Physician: Emma DISLA; Exam Type: CA echo dop color flow w con Study Info Indications - TIA Complete two-dimensional, color flow and Doppler transthoracic echocardiogram is performed with contrast to opacify the left ventricle and to improve the deliniation of the left ventricle endocardial borders. Contrast/Agitated Saline Contrast/Ag. Saline: Definity Amount: 3.00 ml Administered By: Vani Mendez RDCS Existing IV Access: Yes IV Access Condition: patent with no signs of infiltration Summary 1. Left ventricular chamber dimension is normal. 2. Definity contrast administered improved wall motion interpretation. 3. Left ventricular systolic function is normal, estimated at 60-65%. 4. The left ventricular diastolic function is grade II diastolic dysfunction. 5. E/e' 12 is mildly elevated. 6. No pulmonary hypertension, estimated pulmonary arterial systolic pressure is 23 mmHg. Left Ventricle E/e' 12 is mildly elevated. Definity contrast administered improved wall motion interpretation. Left ventricular chamber dimension is normal. Left ventricular systolic function is normal, estimated at 60-65%. The left ventricular diastolic function is grade II diastolic dysfunction. Right Ventricle Right ventricular systolic function is normal and with normal TAPSE 2.2 cm. Right ventricular chamber dimension is normal. Left Atria Left atrial chamber dimension is normal. Right Atria Right atrial chamber dimension is normal. Aortic Valve The aortic valve is trileaflet. There is no aortic valve stenosis. There is no aortic valve regurgitation. Pulmonic Valve There is no pulmonic regurgitation. Mitral Valve There is no mitral valve stenosis. There is no mitral valve regurgitation. Tricuspid Valve There is no tricuspid valve regurgitation. No pulmonary hypertension, estimated pulmonary arterial systolic pressure is 23 mmHg. Pericardium/Pleural There is no pericardial effusion. Inferior Vena Cava Normal inferior vena cava with >50% collapse upon inspiration consistent with normal right atrial pressure, 5 mmHg. Aorta The aortic root size at the sinus of Valsalva is normal. Left Ventricular Outflow Tract Name Value Normal LVOT 2D LVOT Diameter 2.05 cm LVOT Doppler LVOT Peak Gradient 2 mmHg LVOT Mean Gradient 1 mmHg LVOT VTI 15.75 cm LVOT VTI/AV VTI Ratio 0.60 LVOT Stroke Volume 52.03 ml LVOT CO 3.51 l/min
[2022-04-30 04:00] VITALS: BP 95/48; PULSE 50; PULSE 60; RESP 18; TEMP 36; O2SAT 100
[2022-04-30] MEDS: LEVOTHYROXINE SODIUM 75 MCG TABLET PO (05:30)
[2022-04-30 08:00] VITALS: PULSE 57
[2022-04-30] MEDS: CYANOCOBALAMIN 1,000 MCG TABLET 1000 MCG PO (08:24)
[2022-04-30] MEDS: ASPIRIN 81 MG CHEWABLE TABLET PO (08:24)
[2022-04-30] MEDS: PANTOPRAZOLE SOD SESQUIHYDRATE 20 MG TAB PO (08:24)
[2022-04-30] MEDS: FOLIC ACID 1 MG TABLET PO (08:24)
[2022-04-30] MEDS: ATORVASTATIN 40 MG TABLET PO (08:24)
[2022-04-30] MEDS: ERGOCALCIFEROL 50,000 UNIT CAPSULE 50000 UNITS PO (08:24)
[2022-04-30] MEDS: PERFLUTREN LIPID MICROSPHERES 1.5 ML VIAL DILUTED TO 10 ML TOTAL VOLUME IV PUSH (08:48)
--- NOTE | 2022-04-30 08:48 | IVDEFINITY ---
Prior to administration of IV Definity the patient was educated on the risks and benefits of the imaging enhancing agent including potential adverse side effects. The patient verbalized understanding. Allergies were verified. No exclusion criteria were identified and at least one of the following inclusion criteria were met: 1) physician request, 2) patient technically difficult to image (per the [place] [employer]ocardi[employer] guidelines of two or more segments not discernable within the apical view), or 3) questionable left ventricular function. ?
[2022-04-30] MEDS: SODIUM CHLORIDE 0.9% IV 500 ML IV CONT (10:18)
--- NOTE | 2022-04-30 10:59 | PM.CNCAR ---
Assessment and Plan Assessment and plan (1) Dizziness: Code(s): R42 - Dizziness and giddiness Status: Acute Assessment and Plan: Could be vertigo, orthostatic hypotension, bradycardia. She is given IVF. Echo shows EF 60-65%, grade II diastolic dysfunction. Obtain 30 day event monitor to assess for pauses, arrhythmia, bradycardia. My office will place that today. Then she may be discharged home to f/u with me in 3-4 weeks. (2) Bradycardia: Code(s): R00.1 - Bradycardia, unspecified Status: Acute Assessment and Plan: Stable. (3) Hyperlipidemia: Qualifiers: Hyperlipidemia type: other hyperlipidemia Qualified Code(s): E78.49 - Other hyperlipidemia Code(s): E78.5 - Hyperlipidemia, unspecified Status: Acute Assessment and Plan: On Atorvastatin. History of Present Illness History of Present Illness Consult date/time: 04/30/22 10:59 Reason For Visit: Dizziness Narrative: 61 yr old woman who is my regular cardiology patient presents to ER for dizziness. She has a history of left CEA with stroke at that time, dyslipidemia, history of multiple DVT (leg, groin, arm and being followed by Dr. Owens, and on Xarelto, aspirin and folic acid), smoking, COPD, covid infection 01/24/22. States that 2 days ago she got up out of bed and felt lightheaded and off balance swaying to the side so she decided to come to ER. She still has some lightheadedness when walking to restroom but it is mild now. She does not drink much water. Previously, since catching covid she has not resumed smoking 1/2 ppd. Her symptoms were fairly mild with fatigue mainly. Admits to stress due to family illness. She does not drink much water, but drinks root beer. She has some chest tightness at times. Denies chest pain, sob, orthopnea, edema. Admits to LEVIN walking in from parking lot. Cardiovascular Procedures Echo/MUGA:: 11/20/19 Echo: EF 55-60%, diastolic dysfunction (E/e' 12), trace MR/TR. Electrophysiology:: 03/23/20 EKG: Sinus bradycardia at 56 bpm, RSR', low voltage in precordial leads, BRWP. 12/07/19 Holter: Sinus rhythm, HR range 43-154 bpm; 79 bpm; 32 PAC's, 1 couplet; 520 PVC's, 3 couplets, 29 bigeminy. 11/20/19 EKG: Sinus bradycardia at 40 bpm, first degree AV block, RSR', BRWP. 05/08/19 Holter: Sinus rhythm, HR range 42-153 bpm; average 81 bpm; 7 PAC's, 3 couplets; 2,072 PVC's, 5 couplets, 30 bigeminy, 3,932 trigeminy. Stress Tests:: 10/31/18 Lexiscan myoview: Negative for ischemia. 10/10/21 Venous duplex: No DVT of right leg. 05/25/20 Sleep study: No MARY. 07/26/20 Venous duplex study: No DVT of bilateral legs. 11/20/19 MRI brain: Negative. 11/20/19 Carotid duplex: Normal. 11/20/19 CXR: Normal. Review of Systems Review of Systems: All systems reviewed & are unremarkable except as noted in HPI and below Constitutional: Constitutional: Reports as per HPI, Denies chills and Denies fever(s) Cardiovascular: Cardiovascular: Reports as per HPI, Denies chest pain, Denies leg edema and Reports lightheadedness Respiratory: Respiratory: Reports as per HPI and Denies dyspnea Gastrointestinal: Gastrointestinal: Reports as per HPI and Denies abdominal pain Genitourinary: Genitourinary: Reports as per HPI and Denies dysuria Musculoskeletal: Musculoskeletal: Reports as per HPI Neurologic: Reports as per HPI, Reports dizziness and Denies syncope [facility] Past Medical History Medical History (Updated 04/30/22 @ 11:02 by Brandon Wolf DO) Adenomatous colon polyp Adult hypothyroidism Bradycardia Carotid artery disease Status post left carotid endarterectomy. 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 Diverticulosis With history of diverticulitis. Dizziness Dysphagia Fibromyalgia GERD (gastroesophageal reflux disease) History of
[2022-04-30 11:29] VITALS: BP 113/50; PULSE 58
[2022-04-30 11:31] VITALS: BP 109/56; PULSE 56
--- NOTE | 2022-04-30 11:31 | PM.DS ---
DS: Admitting Diagnosis Discharge Date 04/30/22 Admitting Diagnosis dizziness (1) GERD (gastroesophageal reflux disease): ?Code(s): K21.9 - Gastro-esophageal reflux disease without esophagitis ?Status:?Acute (2) COPD (chronic obstructive pulmonary disease): ?Code(s): J44.9 - Chronic obstructive pulmonary disease, unspecified ?Status:?Acute (3) Tobacco dependence: ?Code(s): F17.200 - Nicotine dependence, unspecified, uncomplicated ?Status:?Acute (4) Carotid artery disease: ?Code(s): I77.9 - Disorder of arteries and arterioles, unspecified ?Status:?Acute (5) Fibromyalgia: ?Code(s): M79.7 - Fibromyalgia ?Status:?Acute DS: Discharge Diagnosis Discharge Diagnosis (1) Lightheadedness: Code(s): R42 - Dizziness and giddiness Status: Acute (2) Bradycardia: Code(s): R00.1 - Bradycardia, unspecified Status: Acute (3) Fibromyalgia: Code(s): M79.7 - Fibromyalgia Status: Acute (4) Carotid artery disease: Code(s): I77.9 - Disorder of arteries and arterioles, unspecified Status: Acute (5) Tobacco dependence: Code(s): F17.200 - Nicotine dependence, unspecified, uncomplicated Status: Acute (6) Dizziness: Code(s): R42 - Dizziness and giddiness Status: Deleted (7) Ataxia: Code(s): R27.0 - Ataxia, unspecified Status: Acute (8) BMI 31.0-31.9,adult: Code(s): Z68.31 - Body mass index [BMI] 31.0-31.9, adult Status: Acute (9) Tobacco abuse: Code(s): Z72.0 - Tobacco use Status: Acute (10) Hypothyroidism: Qualifiers: Hypothyroidism type: acquired Qualified Code(s): E03.9 - Hypothyroidism, unspecified Code(s): E03.9 - Hypothyroidism, unspecified Status: Acute (11) COPD (chronic obstructive pulmonary disease): Code(s): J44.9 - Chronic obstructive pulmonary disease, unspecified Status: Acute (12) GERD (gastroesophageal reflux disease): Code(s): K21.9 - Gastro-esophageal reflux disease without esophagitis Status: Acute DS: Summary Hospital Course Reason for hospitalization: lightheadedness Hospital Course: pt admitted w lightheadedness and unsteady gait PE findings on admission could be consistent w BPPV r/o TIA/CVA and near syncope orders placed by admitting physician 04/29/22 symptoms improved pt does have cardiac and CVA history MRI read pending ECHO pending? carotid US pending cont current care POC reviewed w Neurology pt can be safely discharged if MRI negative w outpt follow up 04/30/22 pt seen by PT BPPV considered negative by PE today rug frame mounter consulted as pt not able to tolerate BB at this time holter monitor ordered and pt to follow up w Facility Sales And Admin after discharge MRI is negative Echo without significant changes patient is discharged home in stable condition with indications to follow-up primary care physician as well as her rug frame mounter as above-mentioned Status at Discharge Functional status at discharge: independent ambulation Overall status at discharge: patient is back to baseline Time Spent with Patient Time attestation: Total time spent providing and/or coordinating discharge services: Exam Narrative: APPEARANCE: Well appearing, no pain or distress, well-nourished. obese Head Normocephalic and atraumatic. EYES: EOMI, conjunctivae clear. NOSE: Normal with no drainage NECK: Supple. No adenopathy, no masses. RESPIRATORY: Clear to auscultation bilaterally, no rales, rhonchi, wheezing. CARDIOVASCULAR: Regular rate and rhythm without murmurs, rubs, or gallops. ABDOMINAL: Soft, nontender, nondistended, no hepatosplenomegaly Musculoskeletal: Moves all extremities. Strength/ROM intact, No edema, No calf tenderness. NEURO: Alert. Cranial nerves II through XII intact. SKIN:: Warm, dry. Normal Color PSYCHIATRIC: Normal affect/mood, normal interaction DS: Data Data Completed and Pe
[2022-04-30 11:33] VITALS: BP 113/59; PULSE 65
== END 2022-04-30 12:59 | disposition home health service (06) ==
LOC: ANHED 20:13 → ANH2MED 21:27
PROVIDERS: Emergency Medicine; Admitting Provider Internal Medicine; Emergency Provider Emergency Medicine; PCP Internal Medicine; Visit Provider Hospitalist
DX: R42 Dizziness and giddiness (principal); R00.1 Bradycardia, unspecified; M79.7 Fibromyalgia; I77.9 Disorder of arteries and arterioles, unspecified; F17.210 Nicotine dependence, cigarettes, uncomplicated; E66.9 Obesity, unspecified; Z68.32 Body mass index [BMI] 32.0-32.9, adult; E03.9 Hypothyroidism, unspecified; J44.9 Chronic obstructive pulmonary disease, unspecified; K21.9 Gastro-esophageal reflux disease without esophagitis; I44.0 Atrioventricular block, first degree; I51.89 Other ill-defined heart diseases; E78.49 Other hyperlipidemia; G47.10 Hypersomnia, unspecified; R73.9 Hyperglycemia, unspecified; E55.9 Vitamin D deficiency, unspecified; E53.8 Deficiency of other specified B group vitamins; Z86.73 Personal history of transient ischemic attack (TIA), and cerebral infarction without residual deficits; Z86.718 Personal history of other venous thrombosis and embolism; Z86.16 Personal history of COVID-19; Z79.01 Long term (current) use of anticoagulants; Z79.82 Long term (current) use of aspirin; Z79.51 Long term (current) use of inhaled steroids; Z79.899 Other long term (current) drug therapy; Z82.49 Family history of ischemic heart disease and other diseases of the circulatory system; Z83.3 Family history of diabetes mellitus
CPT/HCPCS: 36415; 70450; 70551; 80053; 81001; 84484; 85025; 93005; 96374; 97161; 99285; A9270; C8929; G0378; J7040; Q9957

== ENCOUNTER → 2022-08-06 09:52 | Outpatient (CLI) | payer MEDICARE, MEDICAID, SELFPAY ==
--- NOTE | ~2022-08-06 | MM_ITS ---
EXAMINATION: MM screening meron BI w carolann HISTORY: Screening mammogram TECHNIQUE: Craniocaudal and mediolateral oblique 3-D tomosynthesis images were obtained and synthetic 2-D images were generated. CAD analysis was submitted and interpreted. COMPARISON: 07/2021, 07/18/2020, 07/15/2019 bilateral screening mammogram examinations BREAST PARENCHYMAL COMPOSITION: There are scattered areas of fibroglandular density. FINDINGS: There is chronic stable mild asymmetry and architectural distortion in the upper outer left breast, likely secondary to history of prior benign left breast biopsy. Scattered bilateral benign calcifications. There is no evidence of suspicious mass, calcification, or architectural distortion to suggest malign gustavo in either breast. There has been no suspicious interval change. IMPRESSION: 1. No mammographic evidence of malignancy. 2. Recommend routine screening mammography in one year. BI-RADS Category 2: Benign finding(s). Reviewed, dictated and finalized at location A. CH DIGGER
== END ==
PROVIDERS: PCP Internal Medicine; Visit Provider Internal Medicine Hematology & Oncology
DX: Z12.31 Encounter for screening mammogram for malignant neoplasm of breast (principal)
CPT/HCPCS: 77063; 77067

== ENCOUNTER 2022-08-06 11:18 | Outpatient (CLI) | payer MEDICARE, MEDICAID, SELFPAY ==
--- NOTE | ~2022-08-06 | CT_ITS ---
EXAMINATION: CT lung screening DATE: 08/06/2022 07:50 INDICATION: Smoker. Emphysema. Nicotine dependence. TECHNIQUE: Computed tomography (CT) of the chest was performed without intravenous contrast. The dose -length product was 109.14 mGy-cm. Automated exposure control and iterative reconstruction technique were employed. COMPARISON: CT dated 07/20/2021 FINDINGS: No thoracic lymphadenopathy. No significant pleural or pericardial effusion. There are chol ecystectomy clips. Heart size is normal. There is mild atherosclerosis of the aorta. Mild emphysema. No endobronchial lesions. No pneumothorax. Stable pulmonary nodules, largest in the right lower lobe measuring 4 mm. There are surgical changes in the lower cervical spine partially visualized. Mild tho racic spondylosis. No lytic or blastic lesions. IMPRESSION: 1. Lung-RADS category 2: Benign appearance or behavior. Continue annual screening with noncontrast lo w-dose chest CT in 12 months. Reviewed, dictated and finalized at location B. OL ADJUSTMENT COUNSELOR IMPRESSION: 1. Lung-RADS category 2: Benign appearance or behavior. Continue annual screeni ng with noncontrast low-dose chest CT in 12 months.
== END 2022-08-06 11:19 | disposition home or self-care (01) ==
PROVIDERS: PCP Internal Medicine; Referring Provider Obstetrics & Gynecology; Visit Provider Internal Medicine Hematology & Oncology
DX: Z12.31 Encounter for screening mammogram for malignant neoplasm of breast (principal); Z12.2 Encounter for screening for malignant neoplasm of respiratory organs; Z87.891 Personal history of nicotine dependence
CPT/HCPCS: 71271

== ENCOUNTER 2022-08-13 10:12 | Outpatient (CLI) | payer MEDICARE, MEDICAID, SELFPAY ==
[2022-08-13 11:09] LABS: Alanine Aminotransferase 21 U/L (6-35); Albumin Level 4.3 g/dL (3.5-5.1); Alkaline Phosphatase 96 U/L (38-126); Anion Gap 7 mmol/L (8-16); Aspartate Amino Transferase 26 U/L (14-36); Bilirubin,Total 0.5 mg/dL (0.2-1.3); Blood Urea Nitrogen 11 mg/dL (7-17); Calcium 9.1 mg/dL (8.4-10.2); Carbon Dioxide 29 mmol/L (22-30); Chloride 104 mmol/L (98-107); Cholesterol 152 mg/dL (0-200); Estimated Glomerular Filt Rate 50; Glucose 92 mg/dL (65-110); HDL Direct 47 mg/dL; Potassium 4.5 mmol/L (3.4-5.0); Sodium 140 mmol/L (137-145); Triglycerides 100 mg/dL (<150)
[2022-08-13 11:19] LABS: LDL Cholesterol Direct 67 mg/dL
[2022-08-13 11:48] LABS: Vitamin D 25 Hydroxy 21.6 ng/mL
== END 2022-08-13 10:13 | disposition home or self-care (01) ==
LOC: ANHLAB 10:16
PROVIDERS: PCP Internal Medicine; Visit Provider Internal Medicine
DX: E78.5 Hyperlipidemia, unspecified (principal); I49.3 Ventricular premature depolarization; E55.9 Vitamin D deficiency, unspecified; E03.9 Hypothyroidism, unspecified
CPT/HCPCS: 36415; 80053; 80061; 82306; 84443

== ENCOUNTER 2022-10-06 15:16 | Emergency (ER) | payer MEDICARE, MEDICAID, SELFPAY ==
[2022-10-06 15:21] VITALS: BP 143/73; PULSE 79; RESP 14; TEMP 37.2; O2SAT 99
--- NOTE | 2022-10-06 15:33 | ED.SKABFB ---
HPI - Skin/Abscess/Foreign Bdy General Chief complaint: Skin/Abscess/Foreign Body Stated complaint: Skin Sore Time Seen by Provider: 10/06/22 15:34 Source: patient and RN notes reviewed Mode of arrival: ambulatory Limitations: dementia History of Present Illness HPI narrative: 62-year-old female presents with concern for redness, pain to her cheek and around her nose. She reports she had some open skin under her nose that she attributed to a runny nose, she started putting Neosporin on it. She reports she then broke out in blisters. She reports her doctor prescribed her nystatin over the phone. She reports since she started using that she has not had any improvement in symptoms, and now has had redness and pain spreading to her left cheek. She denies fever, swelling, aches, chills, sweats. She denies any purulent drainage. MD complaint: other (Redness) Related Data Home Medications Medication Instructions Recorded Confirmed rivaroxaban 20 mg tablet (Xarelto) 20 mg PO DAILY 07/29/19 10/06/22 folic acid 1 mg tablet 1 mg PO DAILY 08/04/19 10/06/22 cyanocobalamin (vitamin B-12) 1,000 mcg PO WEEKLY 02/25/20 10/06/22 1,000 mcg tablet (Vitamin B-12) nebivolol 5 mg tablet (Bystolic) 5 mg PO HS 09/20/21 10/06/22 ergocalciferol (vitamin D2) 1,250 1,250 mcg PO MONTHLY 04/28/22 10/06/22 mcg (50,000 unit) capsule aspirin 81 mg chewable tablet 81 mg PO DAILY 10/06/22 10/06/22 Allergies Allergy/AdvReac Type Severity Reaction Status Date / Time codeine Allergy Severe Difficulty Verified 10/06/22 15:34 Breathing latex Allergy Severe Blister Verified 10/06/22 15:34 levofloxacin Allergy Severe BLISTERS Verified 10/06/22 15:34 ON BODY morphine Allergy Severe Low blood Verified 10/06/22 15:34 pressure oxycodone Allergy Severe Rash Verified 10/06/22 15:34 penicillin G Allergy Severe ANAPHYLACTI Verified 10/06/22 15:34 C Penicillins Allergy Severe Stopped Verified 10/06/22 15:34 Breathing vancomycin Allergy Severe Red Pablito, Verified 01/21/23 15:34 Patient unsure of reaction hydrocodone Allergy Intermediate Itching Verified 10/06/22 15:34 hydromorphone Allergy Intermediate Blister Verified 10/06/22 15:34 shellfish derived AdvReac Severe Swelling Verified 10/06/22 15:34 of Lip/Tongue/Throat Review of Systems Review of Systems: CONSTITUTIONAL: Denies malaise, chills, sweats, or fever. EYES: Denies redness, or discharge. ENT: Denies rhinorrhea, congestion, swollen lips, swollen tongue CARDIOVASCULAR: Denies chest pain, palpitations, or edema. RESPIRATORY: Denies cough or dyspnea. GASTROINTESTINAL: Denies abdominal pain, nausea, vomiting SKIN: Reports redness, pain to her left ear and left cheek. Denies purulent drainage, vesicles, bullae, numbness, pain beyond proportion MUSCULOSKELETAL: Denies joint pain or myalgia. NEUROLOGIC: Denies headache. All systems reviewed & are unremarkable except as noted in HPI and below PMFSH Past Medical History Medical History (Reviewed 08/17/22 @ 08:04 by Jessica Gómez, [facility]) Adenomatous colon polyp Adult hypothyroidism Bradycardia Carotid artery disease Status post left carotid endarterectomy. 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 Diverticulosis With history of diverticulitis. Dizziness Dysphagia Fibromyalgia GERD (gastroesophageal reflux disease) History of cervical cancer History of colon polyps History of colon polyps Hx of deep venous thrombosis Hyperglycemia Hyperlipidemia Hypersomnia Hypothyroidism Low hemoglobin Mouth pain Nicotine abuse Obesity On usp drug therapy Osteoarthritis Other and unspecified hyperlipidemia Otitis media Palpitations Personal history of nicotine dependence Positive colorectal cancer screening using Cologuard test Re
== END 2022-10-06 15:48 | disposition home or self-care (01) ==
PROVIDERS: Emergency Provider Nurse Practitioner
DX: L03.211 Cellulitis of face (principal); E03.9 Hypothyroidism, unspecified; I25.10 Atherosclerotic heart disease of native coronary artery without angina pectoris; J44.9 Chronic obstructive pulmonary disease, unspecified; Z86.16 Personal history of COVID-19; Z86.73 Personal history of transient ischemic attack (TIA), and cerebral infarction without residual deficits; M79.7 Fibromyalgia; K21.9 Gastro-esophageal reflux disease without esophagitis; E66.9 Obesity, unspecified; Z68.31 Body mass index [BMI] 31.0-31.9, adult; E55.9 Vitamin D deficiency, unspecified; E53.8 Deficiency of other specified B group vitamins; Z90.711 Acquired absence of uterus with remaining cervical stump; Z85.41 Personal history of malignant neoplasm of cervix uteri; E78.49 Other hyperlipidemia; Z96.651 Presence of right artificial knee joint
CPT/HCPCS: 99213; G0463

== ENCOUNTER 2022-11-15 15:27 | Emergency (ER) | payer MEDICARE, MEDICAID, SELFPAY ==
--- NOTE | ~2022-11-15 | XR_ITS ---
EXAMINATION: XR shoulder LT min 2V INDICATION: Left shoulder pain after fall TECHNIQUE: Four views of the left shoulder are submitted. COMPARISON: 05/09/2020 FINDINGS: Normal alignment. No fracture. There is moderate osteoarthritis of the glenohumeral and acr omioclavicular joints. Soft tissues are unremarkable. IMPRESSION: 1. No acute osseous abnormality. Reviewed, dictated and finalized at location F. MOTIVE INTERNET SALES CONSULTANT
--- NOTE | ~2022-11-15 | XR_ITS ---
EXAMINATION: XR hand LT min 3V INDICATION: Left hand pain TECHNIQUE: Three views of the left hand are obtained. COMPARISON: 02/03/2020 FINDINGS: No fracture, dislocation, or subluxation. Mild osteoarthritis is again noted in multiple in terphalangeal joints. The soft tissues are unremarkable. IMPRESSION: 1. No acute osseous abnormality. Reviewed, dictated and finalized at location F. DENT CARE AIDE
--- NOTE | ~2022-11-15 | XR_ITS ---
EXAMINATION: XR hip LT 2V w AP pelvis INDICATION: Left hip pain TECHNIQUE: AP view of the pelvis and two views of the left hip are obtained. COMPARISON: None available FINDINGS: Bone alignment is normal. There is no fracture. There is mild osteoarthritis of the hip. IMPRESSION: 1. Mild osteoarthritis. Reviewed, dictated and finalized at location F. ECTIONAL CASE MANAGER IMPRESSION: 1. Mild osteoarthritis.
--- NOTE | ~2022-11-15 | CT_ITS ---
EXAMINATION: CT facial & cervical spine wo DATE: 11/15/2022 16:48 INDICATION: Head injury TECHNIQUE: Computed tomography (CT) of the maxillofacial region and cervical spine was performed with out intravenous contrast. The dose-length product (DLP) was 479.90 mGy-cm. Automated exposure control and iterative reconstruction technique were employed. COMPARISON: 02/03/2020 FINDINGS: MAXILLOFACIAL CT: There is no facial fracture. There is mild mucosal thickening of the ethmoidal air cells. The soft ti ssues are unremarkable. The globes and orbits are normal. CERVICAL SPINE CT: There are changes of anterior fusion at C5-6. Bone alignment is normal. There is no fracture. The francisco tebral body heights are maintained. There is moderate loss of intervertebral disc space height at C4- 5 and C6-7. There is multilevel mild facet and uncovertebral joint osteoarthritis. IMPRESSION: 1. No facial fracture identified. 2. Moderate cervical spondylosis without acute Reviewed, dictated and finalized at location F. E ROOM WORKER
--- NOTE | ~2022-11-15 | CT_ITS ---
EXAMINATION: CT brain wo con INDICATION: Headache COMPARISON: 04/28/2022 TECHNIQUE: Standard unenhanced head CT. The dose-length product (DLP) was 605.33 mGy-cm. The mA was a djusted according to patient size. Iterative reconstruction technique was employed. FINDINGS: There is no intracranial hemorrhage, acute infarction, or abnormal mass lesion. A CT artifa ct courses through the brain given the artificial appearance of small mass lesions. The ventricles ar e normal. There is no abnormal mass effect or midline shift. The day-white matter differentiation is normal. The basal cisterns are patent. The orbits are normal. The paranasal sinuses, mastoids and ca lvarium are normal. IMPRESSION: 1. No acute intracranial abnormality. Reviewed, dictated and finalized at location F. CHISE SALES MANAGER
[2022-11-15 16:02] VITALS: BP 139/88; PULSE 92; RESP 16; TEMP 36.6; O2SAT 99
[2022-11-15 16:17] VITALS: O2SAT 99
--- NOTE | 2022-11-15 16:39 | PC.NURSE ---
Patient off unit to Radiology.
--- NOTE | 2022-11-15 16:40 | ED.FALL ---
HPI - Fall General Chief Complaint: Fall Stated Complaint: fall Time Seen by Provider: 11/15/22 16:21 Source: patient Mode of arrival: ambulatory Limitations: no limitations History of Present Illness HPI Narrative: Patient is a 62-year-old female who presents the ED with report of a fall. 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 She did sustain a small abrasion to her chin and also complains of pain to her left hand, particularly her left second digit, left shoulder, neck, and head. Patient denies any LOC at the fall. She denies to the left wrist or elbow pain. Denies pain in her hips. She was able to ambulate since the fall. Denies dizziness, lightheadedness, vision changes, confusion, nausea, vomiting, or prodromal symptoms prior to the fall. Patient is on Xarelto due to history of CVA and blood clots. Related Data Home Medications Medication Instructions Recorded Confirmed rivaroxaban 20 mg tablet (Xarelto) 20 mg PO DAILY 07/29/19 10/08/22 folic acid 1 mg tablet 1 mg PO DAILY 08/04/19 10/08/22 cyanocobalamin (vitamin B-12) 1,000 mcg PO WEEKLY 02/25/20 10/08/22 1,000 mcg tablet (Vitamin B-12) nebivolol 5 mg tablet (Bystolic) 5 mg PO HS 09/20/21 10/08/22 ergocalciferol (vitamin D2) 1,250 1,250 mcg PO MONTHLY 04/28/22 10/08/22 mcg (50,000 unit) capsule aspirin 81 mg chewable tablet 81 mg PO DAILY 10/06/22 10/08/22 Allergies Allergy/AdvReac Type Severity Reaction Status Date / Time codeine Allergy Severe Difficulty Verified 11/09/22 09:04 Breathing latex Allergy Severe Blister Verified 11/09/22 09:04 levofloxacin Allergy Severe BLISTERS Verified 11/09/22 09:04 ON BODY morphine Allergy Severe Low blood Verified 11/09/22 09:04 pressure oxycodone Allergy Severe Rash Verified 11/09/22 09:04 penicillin G Allergy Severe ANAPHYLACTI Verified 11/09/22 09:04 C Penicillins Allergy Severe Stopped Verified 11/09/22 09:04 Breathing vancomycin Allergy Severe Red Pablito, Verified 11/09/22 09:04 Patient unsure of reaction hydrocodone Allergy Intermediate Itching Verified 11/09/22 09:04 hydromorphone Allergy Intermediate Blister Verified 11/09/22 09:04 shellfish derived AdvReac Severe Swelling Verified 11/09/22 09:04 of Lip/Tongue/Throat Review of Systems Review of Systems: CONSTITUTIONAL: Denies fever, chills, or sweats. EYES: Denies visual changes. CARDIOVASCULAR: Denies chest pain. RESPIRATORY: Denies dyspnea. GASTROINTESTINAL: Denies abdominal pain, nausea, vomiting. MUSCULOSKELETAL: See HPI. NEUROLOGIC: See HPI. All systems reviewed & are unremarkable except as noted in HPI and below PMFSH Past Medical History Medical History Adenomatous colon polyp Adult hypothyroidism Bradycardia Carotid artery disease Status post left carotid endarterectomy. 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 Diverticulosis With history of diverticulitis. 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 Tobacco abuse Tobacco dependence Vertigo Vitamin B12 deficiency Vitamin D deficiency Surgical History Surgical Histo
[2022-11-15] MEDS: fentaNYL CITRATE INJ (*CRX) 100 MCG/2 ML VIAL 25 MCG IV PUSH (17:00)
[2022-11-15] MEDS: ONDANSETRON INJ 4 MG/2 ML VIAL IV PUSH (17:00)
[2022-11-15 19:25] VITALS: BP 112/68; PULSE 75; RESP 18; O2SAT 98
--- NOTE | 2022-11-28 10:13 | PC.NURSE ---
LATE ENTRY This note is being entered to document information to the patient's record. The following information was omitted on [11/15/22], by [Risa Will]. aluminum finger splint applied to left hand 2nd digit.
== END 2022-11-15 19:26 | disposition home or self-care (01) ==
PROVIDERS: Emergency Provider Physician Assistant; PCP Internal Medicine
DX: S63.611A Unspecified sprain of left index finger, initial encounter (principal); S00.81XA Abrasion of other part of head, initial encounter; S43.402A Unspecified sprain of left shoulder joint, initial encounter; S09.90XA Unspecified injury of head, initial encounter; I25.10 Atherosclerotic heart disease of native coronary artery without angina pectoris; J44.9 Chronic obstructive pulmonary disease, unspecified; I69.911 Memory deficit following unspecified cerebrovascular disease; E66.9 Obesity, unspecified; Z68.31 Body mass index [BMI] 31.0-31.9, adult; E03.9 Hypothyroidism, unspecified; E53.8 Deficiency of other specified B group vitamins; E55.9 Vitamin D deficiency, unspecified; K21.9 Gastro-esophageal reflux disease without esophagitis; M79.7 Fibromyalgia; M16.12 Unilateral primary osteoarthritis, left hip; Z85.41 Personal history of malignant neoplasm of cervix uteri; Z86.718 Personal history of other venous thrombosis and embolism; Z86.16 Personal history of COVID-19; Z86.010 Personal history of colon polyps; Z96.651 Presence of right artificial knee joint; Z98.1 Arthrodesis status; Z90.711 Acquired absence of uterus with remaining cervical stump; F17.210 Nicotine dependence, cigarettes, uncomplicated; M47.812 Spondylosis without myelopathy or radiculopathy, cervical region; W01.0XXA Fall on same level from slipping, tripping and stumbling without subsequent striking against object, initial encounter
CPT/HCPCS: 29130; 70450; 70486; 72125; 73030; 73130; 73502; 96374; 96375; 99284; J2405; J3010

== ENCOUNTER 2022-12-21 13:00 | Emergency (ER) | payer OTHER, SELFPAY ==
[2022-12-21 13:30] VITALS: BP 144/62; PULSE 94; RESP 18; TEMP 36.6; O2SAT 97
--- NOTE | 2022-12-21 13:31 | ECG_ITS ---
Measurements Intervals [place] Rate: 73 P: 49 OR: 190 QRS: 2 QRSD: 86 T: 67 QT: 376 QTc: 417 Interpretive Statements SINUS RHYTHM RSR' V1/V2 LOW QRS VOLTAGE IN PRECORDIAL LEADS BORDERLINE ECG COMPARED TO ECG 04/28/2022 18:48:50 HEART RATE HAS INCREASED Electronically Signed On 12-22-2022 14:57:19 CDT by Ronald Torres M.D.
[2022-12-21 13:44] LABS: Basophils Absolute Auto 0.1 K/mm3 (0.0-0.1); Basophils Percent Auto 0.7 % (0.2-1.2); Eosinophils Absolute Auto 0.2 K/mm3 (0-0.3); Eosinophils Percent Auto 2.6 % (0-4.4); Hematocrit 41.5 % (37.0-47.0); Hemoglobin 13.4 g/dL (12.0-15.0); Immature Granulocyte Absolute 0.02 K/mm3 (0.00-0.031); Immature Granulocyte Percent A 0.3 % (0-0.5); Lymphocytes Absolute Auto 2.11 K/mm3 (0.9-3.2); Lymphocytes Percent Auto 30.6 % (18.3-44.2); Mean Corpuscular HGB Conc 32.3 g/dl (32-36); Mean Corpuscular Hemoglobin 28.7 pg (26-34); Mean Corpuscular Volume 88.9 fl (80-100); Mean Platelet Volume 9.4 fl (7.4-10.4); Monocytes Absolute Auto 0.4 K/mm3 (0.1-0.6); Monocytes Percent Auto 5.7 % (2.6-8.5); Neutrophils Absolute Auto 4.1 K/mm3 (1.3-6.7); Neutrophils Percent Auto 60.1 % (45.5-73.1); Platelet Count Result 333 k/mm3 (150-375); Red Blood Count 4.67 M/mm3 (4.2-5.4); Red Cell Distribution Width 13.2 % (11.5-14.5); White Blood Count 6.9 K/mm3 (4.5-10.0)
[2022-12-21 13:53] LABS: Alanine Aminotransferase 23 U/L (6-35); Albumin Level 4.4 g/dL (3.5-5.1); Alkaline Phosphatase 115 U/L (38-126); Anion Gap 9 mmol/L (8-16); Aspartate Amino Transferase 23 U/L (14-36); Bilirubin,Total 0.5 mg/dL (0.2-1.3); Blood Urea Nitrogen 12 mg/dL (7-17); Calcium 9.6 mg/dL (8.4-10.2); Carbon Dioxide 28 mmol/L (22-30); Chloride 103 mmol/L (98-107); Estimated CRCL calculation 60 ml/min; Estimated Glomerular Filt Rate > 60; Glucose 104 mg/dL (65-110); Potassium 3.6 mmol/L (3.4-5.0); Sodium 140 mmol/L (137-145)
--- NOTE | 2023-02-17 11:14 | PC.NURSE ---
LATE ENTRY This note is being entered to document information to the patient's record. The following information was omitted on [12/21/22], by [cecil bethea]. Pt LWBS, EDUCATED TO RETURN TO ED IF NEEDED AND ASKED TO FOLLOW UP WITH PCP
== END 2022-12-21 16:17 | disposition left against medical advice (07) ==
LOC: ANHED 16:32
PROVIDERS: Emergency Provider Emergency Medicine; PCP Internal Medicine
DX: R55 Syncope and collapse (principal)
CPT/HCPCS: 36415; 80053; 85025; 93005; 99199

== ENCOUNTER 2023-02-21 10:23 | Outpatient (CLI) | payer MEDICARE, MEDICAID, SELFPAY ==
[2023-02-21 10:37] LABS: Basophils Percent Auto 0.6 % (0.2-1.2); Eosinophils Absolute Auto 0.2 K/mm3 (0-0.3); Eosinophils Percent Auto 2.7 % (0-4.4); Hematocrit 41.5 % (37.0-47.0); Hemoglobin 13.4 g/dL (12.0-15.0); Immature Granulocyte Absolute 0.02 K/mm3 (0.00-0.031); Immature Granulocyte Percent A 0.3 % (0-0.5); Lymphocytes Absolute Auto 1.77 K/mm3 (0.9-3.2); Lymphocytes Percent Auto 25.6 % (18.3-44.2); Mean Corpuscular HGB Conc 32.3 g/dl (32-36); Mean Corpuscular Hemoglobin 28.6 pg (26-34); Mean Corpuscular Volume 88.5 fl (80-100); Mean Platelet Volume 9.4 fl (7.4-10.4); Monocytes Absolute Auto 0.5 K/mm3 (0.1-0.6); Monocytes Percent Auto 7.1 % (2.6-8.5); Neutrophils Absolute Auto 4.4 K/mm3 (1.3-6.7); Neutrophils Percent Auto 63.7 % (45.5-73.1); Platelet Count Result 302 k/mm3 (150-375); Red Blood Count 4.69 M/mm3 (4.2-5.4); Red Cell Distribution Width 12.6 % (11.5-14.5); White Blood Count 6.9 K/mm3 (4.5-10.0)
[2023-02-21 10:45] LABS: Blood Urea Nitrogen 11 mg/dL (8-26); Carbon Dioxide 26 mmol/L (22-30); Chloride 103 mmol/L (98-109); Estimated Glomerular Filt Rate 50; Glucose 121 mg/dL (70-105); Ionized Calcium (POC) 1.18 mmol/L (1.11-1.31); Potassium 3.8 mmol/L (3.5-4.9); Sodium 142 mmol/L (138-146)
[2023-02-21 15:04] LABS: Alanine Aminotransferase 26 U/L (6-35); Albumin Level 4.4 g/dL (3.5-5.1); Alkaline Phosphatase 99 U/L (38-126); Anion Gap 5 mmol/L (8-16); Aspartate Amino Transferase 27 U/L (14-36); Bilirubin,Total 0.6 mg/dL (0.2-1.3); Blood Urea Nitrogen 12 mg/dL (7-17); Calcium 9.2 mg/dL (8.4-10.2); Carbon Dioxide 32 mmol/L (22-30); Chloride 103 mmol/L (98-107); Estimated Glomerular Filt Rate 56; Glucose 120 mg/dL (65-110); Potassium 3.8 mmol/L (3.4-5.0); Sodium 140 mmol/L (137-145)
== END 2023-02-21 10:24 | disposition home or self-care (01) ==
LOC: ANHLAB 10:25
PROVIDERS: PCP Family Medicine; Visit Provider Internal Medicine Hematology & Oncology
DX: D68.59 Other primary thrombophilia (principal)
CPT/HCPCS: 36415; 80047; 80053; 85025

== ENCOUNTER 2023-03-01 08:36 | Outpatient (CLI) | payer MEDICARE, MEDICAID, SELFPAY ==
[2023-03-01 11:25] LABS: Hemoglobin A1C 5.3 % (<5.7)
== END 2023-03-01 08:37 | disposition home or self-care (01) ==
LOC: ANHLAB 08:37
PROVIDERS: PCP Family Medicine; Visit Provider Family Medicine
DX: D64.9 Anemia, unspecified (principal); E03.9 Hypothyroidism, unspecified; E78.5 Hyperlipidemia, unspecified; F17.200 Nicotine dependence, unspecified, uncomplicated; F41.8 Other specified anxiety disorders; I49.3 Ventricular premature depolarization; I63.9 Cerebral infarction, unspecified; I77.9 Disorder of arteries and arterioles, unspecified; J44.9 Chronic obstructive pulmonary disease, unspecified; K21.9 Gastro-esophageal reflux disease without esophagitis; M79.7 Fibromyalgia; N18.2 Chronic kidney disease, stage 2 (mild); R27.0 Ataxia, unspecified; R73.9 Hyperglycemia, unspecified; T14.8XXA Other injury of unspecified body region, initial encounter; Z68.31 Body mass index [BMI] 31.0-31.9, adult; Z85.41 Personal history of malignant neoplasm of cervix uteri; Z86.718 Personal history of other venous thrombosis and embolism
CPT/HCPCS: 36415; 83036

== ENCOUNTER 2023-03-09 13:29 | Emergency (ER) | payer MEDICARE, MEDICAID, SELFPAY ==
--- NOTE | ~2023-03-09 | XR_ITS ---
Left ankle Technique: AP, oblique, and lateral views were obtained. Clinical History: Pain Findings: No acute fracture or dislocation is seen. Osseous alignment is anatomic. Ankle mortise and other visualized joint spaces are preserved. Soft tissues are otherwise unremarkable. Impression: Unremarkable left ankle. Reviewed, dictated and finalized at location . Impression: Unremarkable left ankle.
--- NOTE | ~2023-03-09 | XR_ITS ---
Left Knee Technique: AP, lateral, and sunrise views were obtained. Clinical History: Pain Findings: No fracture or dislocation is seen. Osseous alignment is anatomic. There is mild medial jayne nt line spurring. Soft tissues are unremarkable. No joint effusion is seen. Impression: Mild degenerative change at the medial joint line, as above. Reviewed, dictated and finalized at location . Impression: Mild degenerative change at the medial joint line, as above.
--- NOTE | ~2023-03-09 | CT_ITS ---
Non-contrast Head CT History: Head injury COMPARISON: 11/15/2022 Technique: Axial non-contrast imaging of the brain was performed. Dose reduction technique was used on this scan by utilizing automated exposure control and iterative reconstruction technique. The dose -length product (DLP) was 605.33 mGy-cm. Findings: There is no evidence of intracranial hemorrhage, mass lesion, or acute infarct. Brain par enchyma appears normal. The ventricles and subarachnoid spaces are normal in size. The calvarium ap pears normal. The visualized paranasal sinuses and mastoid air cells are clear. Impression: No significant abnormality seen. Reviewed, dictated and finalized at location . Impression: No significant abnormality seen.
[2023-03-09 13:36] VITALS: BP 152/66; PULSE 80; RESP 16; TEMP 36.8; O2SAT 98
--- NOTE | 2023-03-09 15:09 | ED.FALL ---
HPI - Fall General Chief Complaint: Fall <Lucille Quinones CROP SUPERVISOR - Last Filed: 03/09/23 15:19> Stated Complaint: fall <Lucille Quinones CROP SUPERVISOR - Last Filed: 03/09/23 15:19> Time Seen by Provider: 03/09/23 14:40 <Lucille Quinones CROP SUPERVISOR - Last Filed: 03/09/23 15:19> History of Present Illness HPI Narrative: 62-year-old female presents to the emergency room today for complaints of note left ankle pain, left knee pain after having a fall just prior to coming in. She has abrasion and bruise to left knee. She has swelling to her left ankle. She did hit her head on the right side when she fell but is not having any significant headache. She is on anticoagulant. Denies any numbness or tingling. No extremity weakness. <Lucille Quinones, CROP SUPERVISOR - Last Filed: 03/09/23 15:19> Related Data Home Medications: Home Medications Medication Instructions Recorded Confirmed rivaroxaban 20 mg tablet (Xarelto) 20 mg PO DAILY 07/29/19 12/20/22 folic acid 1 mg tablet 1 mg PO DAILY 08/04/19 12/20/22 cyanocobalamin (vitamin B-12) 1,000 mcg PO WEEKLY 02/25/20 12/20/22 1,000 mcg tablet (Vitamin B-12) ergocalciferol (vitamin D2) 1,250 1,250 mcg PO MONTHLY 04/28/22 12/20/22 mcg (50,000 unit) capsule aspirin 81 mg chewable tablet 81 mg PO DAILY 10/06/22 12/20/22 <Lucille Quinones, CROP SUPERVISOR - Last Filed: 03/09/23 15:19> Allergies/Adverse Reactions: Allergies Allergy/AdvReac Type Severity Reaction Status Date / Time codeine Allergy Severe Difficulty Verified 03/01/23 07:55 Breathing latex Allergy Severe Blister Verified 03/01/23 07:55 levofloxacin Allergy Severe BLISTERS Verified 03/01/23 07:55 ON BODY morphine Allergy Severe Low blood Verified 03/01/23 07:55 pressure oxycodone Allergy Severe Rash Verified 03/01/23 07:55 penicillin G Allergy Severe ANAPHYLACTI Verified 03/01/23 07:55 C Penicillins Allergy Severe Stopped Verified 03/01/23 07:55 Breathing vancomycin Allergy Severe Red Pablito, Verified 03/01/23 07:55 Patient unsure of reaction hydrocodone Allergy Intermediate Itching Verified 03/01/23 07:55 hydromorphone Allergy Intermediate Blister Verified 03/01/23 07:55 shellfish derived AdvReac Severe Swelling Verified 03/01/23 07:55 of Lip/Tongue/Throat <Lucille Quinones APRN - Last Filed: 03/09/23 15:19> Review of Systems Review of Systems: CONSTITUTIONAL: Denies fever, chills, or sweats. EYES: Denies visual changes, redness, or discharge. ENT: Denies rhinorrhea, congestion, sore throat, or otalgia. CARDIOVASCULAR: Denies chest pain, palpitations, or edema. RESPIRATORY: Denies cough or dyspnea. GASTROINTESTINAL: Denies abdominal pain, nausea, vomiting, or diarrhea. GENITOURINARY: Denies dysuria or hematuria. SKIN: Denies rash or itching. MUSCULOSKELETAL: As per HPI NEUROLOGIC: Denies headache, numbness, dizziness, or weakness. PSYCHIATRIC: Denies anxiety or depression. <Lucille Quinones APRN - Last Filed: 03/09/23 15:19> [facility] Past Medical History Medical History: Medical History Adenomatous colon polyp Adult hypothyroidism Bradycardia Carotid artery disease Status post left carotid endarterectomy. Colon cancer screening Colon, diverticulosis COPD (chronic obstructive pulmonary disease) COVID-19 (01/2022) Current use of intermediate anticoagulation CVA (cerebral vascular accident) With short-term memory loss. Diverticulosis With history of diverticulitis. Dizziness Dysphagia Fibromyalgia GERD (gastroesophageal reflux disease) History of cervical cancer History of colon polyps History of colon polyps Hx of deep venous thrombosis Hyperglycemia Hyperlipidemia Hypersomnia Hypothyroidism Low hemoglobin Mouth pain Nicotine abuse Obesity On intermediate drug therapy Osteoarthritis Other and unspecified hyperlipidemia Otitis media Palpitations Personal history of nancy
== END 2023-03-09 15:39 | disposition home or self-care (01) ==
PROVIDERS: Emergency Provider Emergency Medicine; PCP Family Medicine
DX: S93.402A Sprain of unspecified ligament of left ankle, initial encounter (principal); S80.02XA Contusion of left knee, initial encounter; I25.10 Atherosclerotic heart disease of native coronary artery without angina pectoris; J44.9 Chronic obstructive pulmonary disease, unspecified; I69.911 Memory deficit following unspecified cerebrovascular disease; M79.7 Fibromyalgia; E03.9 Hypothyroidism, unspecified; E78.49 Other hyperlipidemia; E66.9 Obesity, unspecified; Z68.32 Body mass index [BMI] 32.0-32.9, adult; F17.210 Nicotine dependence, cigarettes, uncomplicated; Z96.651 Presence of right artificial knee joint; Z85.41 Personal history of malignant neoplasm of cervix uteri; Z86.010 Personal history of colon polyps; Z86.718 Personal history of other venous thrombosis and embolism; Z86.16 Personal history of COVID-19; Z90.49 Acquired absence of other specified parts of digestive tract; Z98.1 Arthrodesis status; Z90.711 Acquired absence of uterus with remaining cervical stump; Z79.01 Long term (current) use of anticoagulants; Z79.82 Long term (current) use of aspirin; W19.XXXA Unspecified fall, initial encounter
CPT/HCPCS: 70450; 73562; 73610; 99284

== ENCOUNTER 2023-05-13 20:43 | Emergency (ER) | payer MEDICARE, MEDICAID, SELFPAY ==
--- NOTE | ~2023-05-13 | US_ITS ---
EXAMINATION: US venous doppler LE RT DATE: 05/13/2023 22:31 INDICATION: Right lower limb pain. TECHNIQUE: Grayscale ultrasound images without and with compression and Doppler ultrasound images of the right lower extremity veins were obtained. COMPARISON: Ultrasound 10/10/2021. FINDINGS: The visualized portions of right common femoral vein, profunda (deep) femoral vein, femoral vein, pop liteal vein, peroneal veins, posterior tibial veins, and greater saphenous vein outflow are patent. IMPRESSION: 1. No deep venous thrombosis. Reviewed, dictated and finalized at location E.
[2023-05-13 21:02] VITALS: BP 150/90; PULSE 83; TEMP 37.1; O2SAT 99
--- NOTE | 2023-05-13 21:47 | PC.NURSE ---
called US states pt. is next.
== END 2023-05-13 22:40 | disposition left against medical advice (07) ==
PROVIDERS: Emergency Provider Emergency Medicine; PCP Family Medicine
DX: M25.561 Pain in right knee (principal)
CPT/HCPCS: 93971; 99199

== ENCOUNTER 2023-05-15 12:43 | Outpatient (CLI) | payer MEDICARE, MEDICAID, SELFPAY ==
--- NOTE | ~2023-05-15 | XR_ITS ---
EXAM: XR knee RT min 4V DATE: 05/15/2023 14:19 HISTORY: M25.561 - Pain in right knee, swelling . COMPARISON: 10/10/2021. FINDINGS: Normal mineralization. No fracture or dislocation. No lytic or blastic lesion. Status post right total knee arthroplasty. Uncomplicated arthroplasty hardware. No erosion or periosteal change. Small-volume joint fluid. IMPRESSION: No acute osseous finding in the right knee. No radiographic evidence of hardware related complication. Reviewed, dictated and finalized at location K. IMPRESSION: No acute osseous finding in the right knee. No radiographic evidenc e of hardware related complication.
== END 2023-05-15 12:44 | disposition home or self-care (01) ==
LOC: ANHIMG 12:53
PROVIDERS: PCP Family Medicine; Visit Provider Nurse Practitioner Family
DX: M25.561 Pain in right knee (principal)
CPT/HCPCS: 73564

== ENCOUNTER 2023-05-26 10:16 | Emergency (ER) | payer MEDICARE, MEDICAID, SELFPAY ==
[2023-05-26] VITALS (17 sets, daily range): BP systolic 109–148; BP diastolic 57–88; PULSE 46–83; RESP 12–23; TEMP 37; O2SAT 93–100
--- NOTE | ~2023-05-26 | CT_ITS ---
EXAMINATION: CT lumbar spine wo con DATE: 05/26/2023 13:26 INDICATION: Low back pain. TECHNIQUE: Computed tomography (CT) of the lumbar spine was performed without intravenous contrast. A utomated exposure control and iterative reconstruction technique were employed. The dose-length produ ct was 951.91 mGy-cm. COMPARISON: None FINDINGS: Bone alignment is normal. Vertebral body heights are normal. There is mildly decreased disc height at L1-L2. The following disc levels are specifically discussed: L1-L2: The disc is bulging. There is mild bilateral facet joint osteoarthritis. There is no neural fo raminal stenosis. There is mild central canal stenosis. L2-L3: The disc is bulging. There is mild bilateral facet joint osteoarthritis. There is mild right n eural foraminal stenosis. There is mild central canal stenosis. L3-L4: The disc is bulging. There is mild bilateral facet joint osteoarthritis. There is mild bilater al neural foraminal stenosis. There is mild central canal stenosis. L4-L5: The disc is bulging. There is mild bilateral facet joint osteoarthritis. There is mild bilater al neural foraminal stenosis. There is mild central canal stenosis. L5-S1: The disc is bulging. There is mild right and severe left facet joint osteoarthritis. There is mild left neural foraminal stenosis. There is mild central canal stenosis. IMPRESSION: 1. Mild lumbar spondylosis. Reviewed, dictated and finalized at location E. IMPRESSION: 1. Mild lumbar spondylosis.
--- NOTE | 2023-05-26 12:47 | ED.BACK ---
HPI - Back Pain/Injury General Chief Complaint: Back Pain/Injury Stated Complaint: back pain Time Seen by Provider: 05/26/23 12:13 Source: patient and family Mode of arrival: ambulatory Limitations: no limitations History of Present Illness HPI Narrative: 63 years old white female came to the emergency room by private car complaining of pain across lumbar area bilaterally, sharp stabbing, worse with any movement, walking, standing. Started yesterday after possible twist, turning, lifting. History of similar symptoms in the past, with intermittent flare. She denies any weakness or numbness or tingling of the lower extremities. Also fentanyl patient denies bowel dysfunction, bladder dysfunction, altered sensation, focal weakness, or saddle numbness, Related Data Home Medications Medication Instructions Recorded Confirmed rivaroxaban 20 mg tablet (Xarelto) 20 mg PO DAILY 07/29/19 05/15/23 folic acid 1 mg tablet 1 mg PO DAILY 08/04/19 05/15/23 cyanocobalamin (vitamin B-12) 1,000 mcg PO WEEKLY 02/25/20 05/15/23 1,000 mcg tablet (Vitamin B-12) ergocalciferol (vitamin D2) 1,250 1,250 mcg PO MONTHLY 04/28/22 05/15/23 mcg (50,000 unit) capsule aspirin 81 mg chewable tablet 81 mg PO DAILY 10/06/22 05/15/23 Allergies Allergy/AdvReac Type Severity Reaction Status Date / Time codeine Allergy Severe Difficulty Verified 05/15/23 11:14 Breathing latex Allergy Severe Blister Verified 05/15/23 11:14 levofloxacin Allergy Severe BLISTERS Verified 05/15/23 11:14 ON BODY oxycodone Allergy Severe Rash Verified 05/15/23 11:14 penicillin G Allergy Severe ANAPHYLACTI Verified 05/15/23 11:14 C Penicillins Allergy Severe Stopped Verified 05/15/23 11:14 Breathing vancomycin Allergy Severe Red Pablito, Verified 05/15/23 11:14 Patient unsure of reaction hydrocodone Allergy Intermediate Itching Verified 05/15/23 11:14 hydromorphone Allergy Intermediate Blister Verified 05/15/23 11:14 morphine AdvReac Severe Low blood Verified 05/26/23 12:54 pressure shellfish derived AdvReac Severe Swelling Verified 05/15/23 11:14 of Lip/Tongue/Throat Review of Systems Review of Systems: All systems reviewed & are unremarkable except as noted in HPI and below PMFSH Past Medical History Medical History Adenomatous colon polyp Adult hypothyroidism Bradycardia Carotid artery disease Status post left carotid endarterectomy. Colon cancer screening Colon, diverticulosis COPD (chronic obstructive pulmonary disease) COVID-19 (01/2022) Current use of terminal gauger anticoagulation CVA (cerebral vascular accident) With short-term memory loss. Diverticulosis With history of diverticulitis. Dizziness Dysphagia Fibromyalgia GERD (gastroesophageal reflux disease) History of cervical cancer History of colon polyps History of colon polyps Hx of deep venous thrombosis Hyperglycemia Hyperlipidemia Hypersomnia Hypothyroidism Low hemoglobin Mouth pain Nicotine abuse Obesity On mcc drug therapy Osteoarthritis Other and unspecified hyperlipidemia Otitis media Palpitations Personal history of nicotine dependence Positive colorectal cancer screening using Cologuard test Recurrent falls Symptomatic PVCs On metoprolol 50 milligrams daily. Tobacco abuse Tobacco dependence Vertigo Vitamin B12 deficiency Vitamin D deficiency Surgical History Surgical History History of arthroplasty of right knee History of left-sided carotid endarterectomy History of neck surgery History of shoulder surgery Hx of tonsillectomy Hx of total knee arthroplasty Right S/P cholecystectomy S/P medial meniscectomy of left knee (09/2021) Status post cervical spinal fusion Status post cholecystectomy Status post left breast biopsy Status post partial hysterectomy For cervical cancer. Status post right rotator cuff repair Status
[2023-05-26] MEDS: diazePAM (*CRX) 5 MG TABLET PO (13:12)
[2023-05-26] MEDS: KETOROLAC (*BKC) 60 MG/2 ML VIAL IM (13:12)
[2023-05-26] MEDS: ONDANSETRON HCL ODT 4 MG TABLET PO (13:12)
[2023-05-26] MEDS: fentaNYL CITRATE INJ (*CRX) 100 MCG/2 ML VIAL 50 MCG IM (13:14)
== END 2023-05-26 15:13 | disposition home or self-care (01) ==
PROVIDERS: Emergency Provider Emergency Medicine; PCP Family Medicine
DX: M54.50 Low back pain, unspecified (principal); M47.816 Spondylosis without myelopathy or radiculopathy, lumbar region; F17.210 Nicotine dependence, cigarettes, uncomplicated; E03.9 Hypothyroidism, unspecified; I25.10 Atherosclerotic heart disease of native coronary artery without angina pectoris; J44.9 Chronic obstructive pulmonary disease, unspecified; Z79.01 Long term (current) use of anticoagulants; K57.90 Diverticulosis of intestine, part unspecified, without perforation or abscess without bleeding; K21.9 Gastro-esophageal reflux disease without esophagitis; M19.90 Unspecified osteoarthritis, unspecified site
CPT/HCPCS: 72131; 96372; 99284; A9270; J1885; J3010

== ENCOUNTER 2023-07-10 15:59 | Outpatient (CLI) | payer MEDICARE, MEDICAID, SELFPAY ==
--- NOTE | ~2023-07-10 | XR_ITS ---
XR soft tissue neck 07/10/2023 16:25 Indication: Dysphagia Procedure: 2 views of the neck soft tissues Comparison: 01/01/2019 Findings: Status post anterior cervical fusion and discectomy at C5-6. No prevertebral soft tissue sw elling. No abnormality of the epiglottis or aryepiglottic folds. No significant abnormality of the ad enoids or lingual tonsils. No significant subglottic narrowing. Lung apices are normal. Impression: 1: No significant soft tissue abnormality the neck. Reviewed, dictated and finalized at location L. Impression: 1: No significant soft tissue abnormality the neck.
== END 2023-07-10 16:00 | disposition home or self-care (01) ==
PROVIDERS: PCP Family Medicine; Visit Provider Nurse Practitioner Family
DX: R13.10 Dysphagia, unspecified (principal)
CPT/HCPCS: 70360

== ENCOUNTER 2023-07-16 11:59 | Outpatient (CLI) | payer MEDICARE, MEDICAID, SELFPAY ==
[2023-07-16 13:05] LABS: Monoscreen Negative (Negative); Negative Monotest Control Negative (Negative); Positive Monotest Control Positive (Positive)
== END 2023-07-16 12:00 | disposition home or self-care (01) ==
PROVIDERS: PCP Family Medicine; Visit Provider Nurse Practitioner Family
DX: R13.10 Dysphagia, unspecified (principal); J02.9 Acute pharyngitis, unspecified
CPT/HCPCS: 36415; 86308

== ENCOUNTER 2023-08-05 08:08 | Outpatient (CLI) | payer MEDICARE, MEDICAID, SELFPAY ==
--- NOTE | ~2023-08-05 | XR_ITS ---
MODIFIED ESOPHAGRAM HISTORY: Cough with swallowing TECHNIQUE: Modified barium esophagram was performed on 08/05/2023. I administered fluoroscopy and per formed the exam with speech pathologist. Patient was seated for lateral fluoroscopic imaging for ing estion of thin liquids, pudding, solids and quantified amounts, followed by thin liquids in uncontrol led amounts. This was recorded on tape. A single fluoroscopic spot image was also recorded. The DAP f or this procedure was 0.878 Gycm2. The amount of fluoroscopy time used during this procedure was 1.1 minutes. FINDINGS: Oral stage: Adequate function. Pharyngeal stage: Adequate function. Cervical/esophageal stage: Adequate function. IMPRESSION: Patient tolerated regular consistency oral feedings in the upright position. Please sam elate with speech pathologist findings and specific feeding recommendations. Reviewed, dictated and finalized at location A. CLASS MODEL IMPRESSION: Patient tolerated regular consistency oral feedings in the upright position. Please correlate with speech pathologist findings and specific feedi ng recommendations.
--- NOTE | 2023-08-05 10:10 | REHSTMBS ---
Assessment and note entered by Elisabeth Kennedy, CERTIFIED ART THERAPIST Modified Barium Swallow Evaluation Feeding Type Recommended Oral Food Consistency Minced and Moist, Level 5 Liquid Consistency Thin (0) ST Clinical Summary MODIFIED BARIUM SWALLOW STUDY This patient was seen for a Modified Barium Swallow study at the request of her physician. Patient reports cervical fusion at the level of C3 -C5 in 2005 resulting in difficulty swallowing since that time. She reports she that food gets caught in her throat and that she has to cough it up and occasionally vomit to remove the lodged food. Patient indicated that she has to avoid most solid foods and she consumes mashed potatoes, soups, and liquids to avoid solid food getting lodged in her throat. Patient reported that she has had several EGD procedures in the past that facilitated smoother swallowing and that she is scheduled for another EGD tomorrow. Patient also has a history of CVA, most likely unrelated to this problem. Patient was viewed in the lateral position to the level of C5/C6. She was presented with uncontrolled thin liquid contrast medium per cup and also per straw, graduated amounts of pudding mixed with semi-solid contrast medium, and then fruit pieces and helen cracker pieces, both coated with the semi-solid mixture. Patient elicited quick swallows with good movement of material through the pharynx and into the esophagus. There was no evidence of penetration or aspiration of any material into the airway and no significant pharyngeal residue. Results indicate this patient's swallowing skills are within normal limits for these amounts and consistencies. Patient was instructed to cut food into small pieces, use sauces and gravyies to add moisture to foods, avoid [id number] foods, use soft solids such as egg salad, chicken and dumplings, spaghetti with meatballs, in order to avoid having food hang up in the throat. She voiced understanding.She should continue to pursue EGD for further assessment of her complaints and possible treatment to prevent difficulty with solid foods. No further Speech Therapy is
--- NOTE | 2023-08-05 10:11 | REHSTMBS ---
Assessment and note entered by Elisabeth Kennedy, EBD SPECIAL EDUCATION TEACHER Modified Barium Swallow Evaluation Feeding Type Recommended Oral Food Consistency Minced and Moist, Level 5 Liquid Consistency Thin (0) ST Clinical Summary MODIFIED BARIUM SWALLOW STUDY This patient was seen for a Modified Barium Swallow study at the request of her physician. Patient reports cervical fusion at the level of C3 -C5 in 2005 resulting in difficulty swallowing since that time. She reports she that food gets caught in her throat and that she has to cough it up and occasionally vomit to remove the lodged food. Patient indicated that she has to avoid most solid foods and she consumes mashed potatoes, soups, and liquids to avoid solid food getting lodged in her throat. Patient reported that she has had several EGD procedures in the past that facilitated smoother swallowing and that she is scheduled for another EGD tomorrow. Patient also has a history of CVA, most likely unrelated to this problem. Patient was viewed in the lateral position to the level of C5/C6. She was presented with uncontrolled thin liquid contrast medium per cup and also per straw, graduated amounts of pudding mixed with semi-solid contrast medium, and then fruit pieces and helen cracker pieces, both coated with the semi-solid mixture. Patient elicited quick swallows with good movement of material through the pharynx and into the esophagus. There was no evidence of penetration or aspiration of any material into the airway and no significant pharyngeal residue. Results indicate this patient's swallowing skills are within normal limits for these amounts and consistencies. Patient was instructed to cut food into small pieces, use sauces and gravy to add moisture to foods, avoid [id number] foods, use soft solids such as egg salad, chicken and dumplings, spaghetti with meatballs, in order to avoid having food hang up in the throat. She voiced understanding.She should continue to pursue EGD for further assessment of her complaints and possible treatment to prevent difficulty with solid foods. No further Speech Therapy is
== END 2023-08-05 08:09 | disposition home or self-care (01) ==
PROVIDERS: PCP Family Medicine; Visit Provider Nurse Practitioner Family
DX: R13.10 Dysphagia, unspecified (principal)
CPT/HCPCS: 92611

== ENCOUNTER 2023-08-06 00:40 | Day surgery (SDC) | payer MEDICARE, MEDICAID, SELFPAY ==
[2023-07-30 13:36] VITALS: BMI 33.1
--- NOTE | 2023-07-31 11:23 | PC.NURSE ---
Spoke with pt. regarding Xarelto and ASA. Instructed to hold Xarelto after dose on 08/03/2023, does not need to stop aspirin. Pt verbalizes under standing.
--- NOTE | 2023-08-02 14:45 | SUR.PREOP ---
Patient called regarding upcoming procedure. Reviewed preop instructions, appointment times, and procedure prep.
[2023-08-06 12:08] VITALS: BP 133/81; PULSE 79; RESP 16; TEMP 36.1; O2SAT 98; BMI 34.0
[2023-08-06] MEDS: LACTATED RINGERS 1,000 ML 150 ML IV CONT (12:31)
--- NOTE | 2023-08-06 12:32 | WPDANESEPPF ---
Anes - Initial Pre Proc Eval Procedure: Operation Date: 08/06/23 13:30 Proposed Procedures p Esophagogastroduodenoscopy EGD - Ashwin Ko MD Date/Time: 08/06/23 12:32 Surgeon: Ashwin Ko MD Pre Op Diagnosis: GERD w/o esophagitis, Dysphagia Patient Data Age: 63 Gender: F Height: 1.61 m Weight: 88.7 kg Last Vital Signs Temp 97 F L 08/06/23 12:08 Pulse 79 08/06/23 12:08 Resp 16 08/06/23 12:08 BP 133/81 08/06/23 12:08 Pulse Ox 98 08/06/23 12:08 O2 Del Method Room Air 08/06/23 12:08 Allergies Allergy/AdvReac Type Severity Reaction Status Date / Time codeine Allergy Severe Anaphylaxis Verified 08/06/23 12:04 hydromorphone Allergy Severe Blister Verified 08/06/23 12:04 latex Allergy Severe Blister Verified 08/06/23 12:04 levofloxacin Allergy Severe BLISTERS Verified 08/06/23 12:04 ON BODY oxycodone Allergy Severe Rash Verified 08/06/23 12:04 penicillin G Allergy Severe ANAPHYLACTI Verified 08/06/23 12:04 C Penicillins Allergy Severe Anaphylaxis Verified 08/06/23 12:04 vancomycin Allergy Severe Red Pablito, Verified 08/06/23 12:04 Patient unsure of reaction hydrocodone Allergy Intermediate Itching Verified 08/06/23 12:04 morphine AdvReac Severe Low blood Verified 08/06/23 12:04 pressure shellfish derived AdvReac Severe Swelling Verified 08/06/23 12:04 of Lip/Tongue/Throat Home Medications Medication Instructions Recorded Confirmed Type rivaroxaban 20 mg tablet (Xarelto) 20 mg PO DAILY 07/29/19 08/06/23 History folic acid 1 mg tablet 1 mg PO DAILY 08/04/19 08/06/23 History cyanocobalamin (vitamin B-12) 1,000 mcg PO 2XW 02/25/20 08/06/23 History 1,000 mcg tablet (Vitamin B-12) albuterol sulfate 2.5 mg/3 mL 2.5 mg (3 mL) inhalation Q4-6H PRN 06/09/21 08/06/23 Rx (0.083 %) solution for nebulization shortness of breath or wheezing #90 mL ergocalciferol (vitamin D2) 1,250 1,250 mcg PO MONTHLY 04/28/22 08/06/23 History mcg (50,000 unit) capsule aspirin 81 mg chewable tablet 81 mg PO DAILY 10/06/22 08/06/23 History nebivolol 5 mg tablet (Bystolic) 5 mg PO HS #90 tabs 12/12/22 08/06/23 Rx pantoprazole 20 mg tablet,delayed 20 mg PO DAILY #90 tabs 02/12/23 08/06/23 Rx release miscellaneous medical supply 1 ea miscellaneous DIRECTED #1 03/09/23 08/06/23 Rx ea levothyroxine 75 mcg tablet 75 mcg PO DAILY #90 tabs 03/11/23 08/06/23 Rx albuterol sulfate 90 mcg/actuation 2 puff inhalation Q6H PRN 04/30/23 08/06/23 Rx aerosol inhaler (ProAir HFA) Shortness Of Breath #8.5 grams alprazolam 0.5 mg tablet (Xanax) 0.5 mg PO BID PRN anxiety #60 tabs 05/06/23 08/06/23 Rx cyclobenzaprine 10 mg tablet 10 mg PO TID PRN muscle spasm #90 05/30/23 08/06/23 Rx tabs atorvastatin 40 mg tablet 40 mg PO DAILY #90 tabs 07/01/23 08/06/23 Rx Patient hx anesthesia problems: none Family hx anesthesia problems: none Results Review: All pre-operative results and documents have been reviewed as part of the pre-operative evaluation. [facility] Past Medical History Medical History (Updated 07/17/23 @ 09:47 by Tenisha Fraire, ENVIRONMENTAL RESOURCE SPECIALIST-C) Adenomatous colon polyp Adult hypothyroidism BMI 34.0-34.9,adult Bradycardia Carotid artery disease Status post left carotid endarterectomy. Colon cancer screening Colon, diverticulosis COPD (chronic obstructive pulmonary disease) COVID-19 (01/2022) Current use of usp anticoagulation CVA (cerebral vascular accident) With short-term memory loss. Diverticulosis With history of diverticulitis. Dizziness Dysphagia Fibromyalgia GERD (gastroesophageal reflux disease) History of cervical cancer History of colon polyps History of colon polyps Hx of deep venous thrombosis Hyperglycemia Hyperlipidemia Hypersomnia Hypothyroidism Low hemoglobin Mouth pain Nicotine abuse Obesity On usp drug therapy Osteoarthritis Other and unspecified hyperlipidemia Otitis media Palpitations Person
--- NOTE | 2023-08-06 12:57 | WPDHPUPDATE1 ---
History and Physical Update Update Date/Time: 08/06/23 12:57 History and Physical has been reviewed, including an updated exam of the patient. There are NO changes in the patient's condition. Risks, benefits, and alternatives have been discussed and questions answered. Patient agrees to proceed with procedure.
[2023-08-06 13:11] VITALS: BP 101/58; PULSE 64; RESP 20; O2SAT 96
[2023-08-06 13:21] VITALS: BP 111/61; PULSE 60; RESP 20; O2SAT 98
[2023-08-06 13:31] VITALS: BP 129/61; PULSE 56; RESP 18; O2SAT 98
== END 2023-08-06 13:44 | disposition home or self-care (01) ==
PROVIDERS: PCP Family Medicine; Visit Provider Internal Medicine Gastroenterology
PROC: 0DJ08ZZ Inspection of Upper Intestinal Tract, Via Natural or Artificial Opening Endoscopic (ICD-10-PCS; CPT 43235; principal; 2023-08-06 13:30)
DX: K21.9 Gastro-esophageal reflux disease without esophagitis (principal); K57.10 Diverticulosis of small intestine without perforation or abscess without bleeding; K44.9 Diaphragmatic hernia without obstruction or gangrene; R13.19 Other dysphagia; E03.9 Hypothyroidism, unspecified; J44.9 Chronic obstructive pulmonary disease, unspecified; R73.9 Hyperglycemia, unspecified; E78.5 Hyperlipidemia, unspecified; G47.10 Hypersomnia, unspecified; E53.8 Deficiency of other specified B group vitamins; E55.9 Vitamin D deficiency, unspecified; R41.3 Other amnesia; F17.210 Nicotine dependence, cigarettes, uncomplicated; Z90.49 Acquired absence of other specified parts of digestive tract; Z79.01 Long term (current) use of anticoagulants; Z79.51 Long term (current) use of inhaled steroids; Z79.82 Long term (current) use of aspirin; Z98.62 Peripheral vascular angioplasty status; Z86.79 Personal history of other diseases of the circulatory system; Z85.41 Personal history of malignant neoplasm of cervix uteri; Z86.010 Personal history of colon polyps; Z86.718 Personal history of other venous thrombosis and embolism; Z82.49 Family history of ischemic heart disease and other diseases of the circulatory system; Z80.9 Family history of malignant neoplasm, unspecified
CPT/HCPCS: 43239; 43450; 88305; J2001; J2704; J7120

== ENCOUNTER 2023-08-07 14:23 | Outpatient (CLI) | payer MEDICARE, MEDICAID, SELFPAY ==
--- NOTE | ~2023-08-07 | MM_ITS ---
EXAMINATION: MM screening meron BI w carolann HISTORY: Screening mammogram TECHNIQUE: Craniocaudal and mediolateral oblique 3-D tomosynthesis images were obtained and synthetic 2-D images were generated. CAD analysis was submitted and interpreted. COMPARISON: 08/06/2022, 07/20/2021, 07/18/2020 bilateral screening mammogram examinations BREAST PARENCHYMAL COMPOSITION: There are scattered areas of fibroglandular density. FINDINGS: Mild asymmetry and possible architectural distortion are noted in the outer left breast pos teriorly. Diagnostic left mammogram is recommended, with ultrasound if required. Otherwise no suspicious mass, architectural distortion, malignant calcification, skin thickening or r etraction of either breast is evident. Scattered bilateral benign calcifications, primarily calcified microhematomas. IMPRESSION: 1. Posterior outer left breast asymmetry, possible architectural distortion on CC view 2. Diagnostic left mammogram is recommended, with ultrasound if required BI-RADS Category 0: Incomplete: Needs additional imaging evaluation. Reviewed, dictated and finalized at location A. ORT CLERK
== END 2023-08-07 14:24 | disposition home or self-care (01) ==
LOC: ANHIMG 14:26
PROVIDERS: PCP Family Medicine; Visit Provider Internal Medicine Hematology & Oncology
DX: Z12.31 Encounter for screening mammogram for malignant neoplasm of breast (principal); R92.8 Other abnormal and inconclusive findings on diagnostic imaging of breast
CPT/HCPCS: 77063; 77067

== ENCOUNTER 2023-08-09 22:15 | Emergency (ER) | payer MEDICARE, MEDICAID, SELFPAY ==
--- NOTE | ~2023-08-09 | XR_ITS ---
XR foot RT min 3V DATE: 08/09/2023 22:42 INDICATION: Right toe pain for 3 hours. No injury. TECHNIQUE: 3 views COMPARISON: None FINDINGS: No fracture or dislocation, periosteal reaction or bone destruction. No erosive change or s ignificant joint space narrowing. IMPRESSION: Negative Reviewed, dictated and finalized at location A. UTER SYSTEMS AUDITOR IMPRESSION: Negative
[2023-08-09 22:18] VITALS: BP 126/84; PULSE 84; RESP 14; TEMP 37; O2SAT 97
--- NOTE | 2023-08-09 22:59 | PC.NURSE ---
This RN assumed care of patient. THis RN took patient report from MIKHAIL Crain.
--- NOTE | 2023-08-09 23:15 | PC.NURSE ---
report given to MIKHAIL Hilario. all questions answered.
--- NOTE | 2023-08-10 00:32 | ED.GENADULT ---
HPI - General Adult General Chief complaint: Extremity Injury, Lower Stated complaint: R foot pain Time Seen by Provider: 08/09/23 23:31 History of Present Illness HPI narrative: This is a 63-year-old female presenting ED with right toe pain. Patient noticed swelling around the base of the nail on her right great toe. She has had multiple ingrown toenails and actually had a toenail ablation although that was not successful. Patient denies other complaints. Related Data Home Medications Medication Instructions Recorded Confirmed rivaroxaban 20 mg tablet (Xarelto) 20 mg PO DAILY 07/29/19 08/06/23 folic acid 1 mg tablet 1 mg PO DAILY 08/04/19 08/06/23 cyanocobalamin (vitamin B-12) 1,000 mcg PO 2XW 02/25/20 08/06/23 1,000 mcg tablet (Vitamin B-12) ergocalciferol (vitamin D2) 1,250 1,250 mcg PO MONTHLY 04/28/22 08/06/23 mcg (50,000 unit) capsule aspirin 81 mg chewable tablet 81 mg PO DAILY 10/06/22 08/06/23 Allergies Allergy/AdvReac Type Severity Reaction Status Date / Time codeine Allergy Severe Anaphylaxis Verified 08/06/23 12:04 hydromorphone Allergy Severe Blister Verified 08/06/23 12:04 latex Allergy Severe Blister Verified 08/06/23 12:04 levofloxacin Allergy Severe BLISTERS Verified 08/06/23 12:04 ON BODY oxycodone Allergy Severe Rash Verified 08/06/23 12:04 penicillin G Allergy Severe ANAPHYLACTI Verified 08/06/23 12:04 C Penicillins Allergy Severe Anaphylaxis Verified 08/06/23 12:04 vancomycin Allergy Severe Red Pablito, Verified 08/06/23 12:04 Patient unsure of reaction hydrocodone Allergy Intermediate Itching Verified 08/06/23 12:04 morphine AdvReac Severe Low blood Verified 08/06/23 12:04 pressure shellfish derived AdvReac Severe Swelling Verified 08/06/23 12:04 of Lip/Tongue/Throat PMFSH Past Medical History Medical History Adenomatous colon polyp Adult hypothyroidism BMI 34.0-34.9,adult Bradycardia Carotid artery disease Status post left carotid endarterectomy. 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 Diverticulosis With history of diverticulitis. Dizziness Dysphagia Fibromyalgia GERD (gastroesophageal reflux disease) History of cervical cancer History of colon polyps History of colon polyps Hx of deep venous thrombosis Hyperglycemia Hyperlipidemia Hypersomnia Hypothyroidism Low hemoglobin Mouth pain Nicotine abuse Obesity On rat exterminator drug therapy Osteoarthritis Other and unspecified hyperlipidemia Otitis media Palpitations Personal history of nicotine dependence Positive colorectal cancer screening using Cologuard test Recurrent falls Symptomatic PVCs On metoprolol 50 milligrams daily. Tobacco abuse Tobacco dependence Vertigo Vitamin B12 deficiency Vitamin D deficiency Surgical History Surgical History History of arthroplasty of right knee History of left-sided carotid endarterectomy History of neck surgery History of shoulder surgery Hx of tonsillectomy Hx of total knee arthroplasty Right S/P cholecystectomy S/P medial meniscectomy of left knee (09/2021) Status post cervical spinal fusion Status post cholecystectomy Status post left breast biopsy Status post partial hysterectomy For cervical cancer. Status post right rotator cuff repair Status post tonsillectomy Status post tubal ligation Family History Family History Mother Depression Family history of diabetes mellitus in first degree relative Diabetes mellitus Father Family history of diabetes mellitus in first degree relative Acute myocardial infarction Diabetes mellitus Sibling Hepatitis Pulmonary embolism Charmaineli
== END 2023-08-10 00:43 | disposition home or self-care (01) ==
PROVIDERS: Emergency Provider Emergency Medicine; PCP Family Medicine
DX: L03.031 Cellulitis of right toe (principal); I25.10 Atherosclerotic heart disease of native coronary artery without angina pectoris; J44.9 Chronic obstructive pulmonary disease, unspecified; E03.9 Hypothyroidism, unspecified; E78.5 Hyperlipidemia, unspecified; E53.8 Deficiency of other specified B group vitamins; E55.9 Vitamin D deficiency, unspecified; M79.7 Fibromyalgia; K21.9 Gastro-esophageal reflux disease without esophagitis; F17.210 Nicotine dependence, cigarettes, uncomplicated; Z85.41 Personal history of malignant neoplasm of cervix uteri; Z86.010 Personal history of colon polyps; Z86.16 Personal history of COVID-19; Z86.718 Personal history of other venous thrombosis and embolism; Z96.651 Presence of right artificial knee joint; Z90.49 Acquired absence of other specified parts of digestive tract; Z98.1 Arthrodesis status; Z90.711 Acquired absence of uterus with remaining cervical stump
CPT/HCPCS: 10060; 73630; 99283

== ENCOUNTER 2023-08-22 15:15 | Outpatient (CLI) | payer MEDICARE, MEDICAID, SELFPAY ==
--- NOTE | ~2023-08-22 | CT_ITS ---
EXAMINATION:CT lung screening DATE: 08/22/2023 15:33 INDICATION: Personal history of tobacco dependence. Current smoker with 38 pack year history. Screeni ng for lung cancer. TECHNIQUE: Computed tomography (CT) of the chest was performed without intravenous contrast. Automate d exposure control and iterative reconstruction technique were employed. The dose-length product (DLP ) was 94.10 mGy-cm. COMPARISON: Chest CT 08/06/2022 FINDINGS: There is a 3 mm nodule in right lower lobe. There is a 5 mm nodule in right lower lobe, sta ble from 08/06/22. No pleural effusion. The heart size is normal. There are coronary artery calcifica tions. No pericardial effusion. There is mild thoracic spondylosis. There are changes of anterior fus ion procedure in cervical spine. IMPRESSION: 1. Lung-RADS category 2: Benign appearance or behavior. Continue annual screening with noncontrast lo w-dose chest CT in 12 months. Reviewed, dictated and finalized at location E. OR ASSISTANT MANAGER IMPRESSION: 1. Lung-RADS category 2: Benign appearance or behavior. Continue annual screeni ng with noncontrast low-dose chest CT in 12 months.
== END 2023-08-22 15:16 | disposition home or self-care (01) ==
PROVIDERS: PCP Family Medicine; Visit Provider Internal Medicine Hematology & Oncology
DX: Z12.2 Encounter for screening for malignant neoplasm of respiratory organs (principal); F17.210 Nicotine dependence, cigarettes, uncomplicated
CPT/HCPCS: 71271

== ENCOUNTER 2023-09-03 10:58 | Outpatient (CLI) | payer MEDICARE, MEDICAID, SELFPAY ==
--- NOTE | ~2023-09-03 | MMUS_ITS ---
EXAMINATION: MM diagnostic meron LT w carolann, US breast LT limited HISTORY: Posterior outer left breast asymmetry, possible architectural distortion on screening CC meron mogram view of 08/07/2023 TECHNIQUE: Additional 3-D tomosynthesis images of the left breast were performed and synthetic 2-D im ages were generated. CAD analysis was submitted and interpreted. High resolution upper outer and lowe r-outer quadrant left breast ultrasound was performed. COMPARISON: Serial mammogram examinations dating back to 03/04/2014 FINDINGS: MAMMOGRAPHIC FINDINGS: A history of prior left breast biopsy in the is given, which likely accounts for the mild archi tectural distortion noted in the posterior outer left breast on CC projection, with similar evidence dating back to 2013. This is likely postbiopsy chronic scarring. ULTRASOUND: No suspicious reproducible mass is detected. Subtle ill-defined shadowing is suggested at 5:00 3 cm f rom the nipple, which may be due to scarring from prior biopsy. IMPRESSION: 1. Probable chronic scarring from prior left breast biopsy 2. Six-month diagnostic left mammogram and left breast ultrasound follow-up are recommended BI-RADS category 3, probably benign findings. Reviewed, dictated and finalized at location A. WALKER IMPRESSION: 1. Probable chronic scarring from prior left breast biopsy 2. Six-month diagnostic left mammogram and left breast ultrasound follow-up are recommended BI-RADS category 3, probably benign findings.
== END 2023-09-03 10:59 | disposition home or self-care (01) ==
PROVIDERS: PCP Family Medicine; Visit Provider Internal Medicine Hematology & Oncology
DX: R92.8 Other abnormal and inconclusive findings on diagnostic imaging of breast (principal)
CPT/HCPCS: 76642; 77061; 77065; G0279

== ENCOUNTER 2023-09-11 09:25 | Outpatient (CLI) | payer MEDICARE, MEDICAID, SELFPAY ==
[2023-09-11 10:19] LABS: Hematocrit 38.5 % (37.0-47.0); Hemoglobin 12.1 g/dL (12.0-15.0); Mean Corpuscular HGB Conc 31.4 g/dl (32-36); Mean Corpuscular Hemoglobin 28.4 pg (26-34); Mean Corpuscular Volume 90.4 fl (80-100); Platelet Count Result 272 k/mm3 (150-375); Red Blood Count 4.26 M/mm3 (4.2-5.4); Red Cell Distribution Width 13.3 % (11.5-14.5); White Blood Count 6.1 K/mm3 (4.5-10.0)
[2023-09-11 10:29] LABS: Alanine Aminotransferase 17 U/L (6-35); Alkaline Phosphatase 101 U/L (38-126); Anion Gap 9 mmol/L (8-16); Aspartate Amino Transferase 22 U/L (14-36); Bilirubin,Total 0.5 mg/dL (0.2-1.3); Blood Urea Nitrogen 9 mg/dL (7-17); Calcium 8.9 mg/dL (8.4-10.2); Carbon Dioxide 27 mmol/L (22-30); Chloride 105 mmol/L (98-107); Cholesterol 145 mg/dL (0-200); Estimated Glomerular Filt Rate 56; Glucose 98 mg/dL (65-110); HDL Direct 44 mg/dL; Potassium 3.9 mmol/L (3.4-5.0); Sodium 141 mmol/L (137-145); Triglycerides 116 mg/dL (<150)
[2023-09-11 10:39] LABS: LDL Cholesterol Direct 72 mg/dL
== END 2023-09-11 09:26 | disposition home or self-care (01) ==
LOC: ANHLAB 09:35
PROVIDERS: PCP Family Medicine; Visit Provider Family Medicine
DX: D64.9 Anemia, unspecified (principal); E03.9 Hypothyroidism, unspecified; E78.5 Hyperlipidemia, unspecified; F17.200 Nicotine dependence, unspecified, uncomplicated; F41.8 Other specified anxiety disorders; I49.3 Ventricular premature depolarization; I63.9 Cerebral infarction, unspecified; I77.9 Disorder of arteries and arterioles, unspecified; J44.9 Chronic obstructive pulmonary disease, unspecified; K21.9 Gastro-esophageal reflux disease without esophagitis; M79.7 Fibromyalgia; N18.2 Chronic kidney disease, stage 2 (mild); R27.0 Ataxia, unspecified; R73.9 Hyperglycemia, unspecified; T14.8XXA Other injury of unspecified body region, initial encounter; Z68.31 Body mass index [BMI] 31.0-31.9, adult; Z85.41 Personal history of malignant neoplasm of cervix uteri; Z86.718 Personal history of other venous thrombosis and embolism
CPT/HCPCS: 36415; 80053; 80061; 85027

== ENCOUNTER 2023-10-25 13:27 | Outpatient (CLI) | payer MEDICARE, MEDICAID, SELFPAY ==
--- NOTE | ~2023-10-25 | CT_ITS ---
EXAMINATION: CT abdomen pelvis w con INDICATION: Abdominal pain TECHNIQUE: Computed tomographic images of the abdomen and pelvis were obtained after the administrati on of 100 cc of Omnipaque 350 intravenous contrast. The dose-length product (DLP) was 757.74 mGy-cm. Automated exposure control and iterative reconstruction technique were employed. COMPARISON: 03/25/2022 FINDINGS: Minimal dependent atelectasis is present in the lung bases. The heart size is normal. There is a small sliding hiatal hernia. Changes of cholecystectomy are noted. The liver, spleen, pancreas, and adrenal glands are normal. The left kidney is unremarkable. A 4 mm low-attenuation area in the r ight kidney lower pole is too small to characterize but likely represents a cyst. There is calcified atherosclerosis of the aorta and many of the other arteries. No pathologically enlarged abdominal or pelvic lymph nodes are identified. Colonic diverticulosis is noted. There is mild wall thickening of the sigmoid colon. No definite surrounding inflammatory change is identified. There is mild lumbar sp ondylosis. There is no free intraperitoneal gas. IMPRESSION: 1. Diverticulosis with mild wall thickening of the sigmoid colon which could reflect uncomplicated di verticulitis. Reviewed, dictated and finalized at location B. P THERAPIST IMPRESSION: 1. Diverticulosis with mild wall thickening of the sigmoid colon which could re flect uncomplicated diverticulitis.
[2023-10-25 13:59] LABS: Estimated Glomerular Filt Rate 56
== END 2023-10-25 13:28 | disposition home or self-care (01) ==
PROVIDERS: PCP Family Medicine; Visit Provider Internal Medicine Gastroenterology
DX: K57.30 Diverticulosis of large intestine without perforation or abscess without bleeding (principal); R19.7 Diarrhea, unspecified
CPT/HCPCS: 74177; Q9967

== ENCOUNTER 2023-11-26 00:55 | Day surgery (SDC) | payer MEDICARE, MEDICAID, SELFPAY ==
[2023-11-05 15:42] VITALS: BMI 32.5
--- NOTE | 2023-11-11 13:38 | PC.NURSE ---
Spoke with PATIENT regarding medication XARELTO. Pt. verbalizes understanding that the last dose of XARELTO is to be taken on 11/18/2023 and the Endoscopist will instruct them when to restart after the procedure.
--- NOTE | 2023-11-19 10:33 | SUR.PREOP ---
Spoke with Gege regarding medication Xeralto. Pt. verbalizes understanding that the last dose Xeralto is to be taken on 11/22 and the Endoscopist will instruct them when to restart after the procedure. Pt was rescheduled to 11/25. She resumed her xeralto today.
[2023-11-20 12:07] VITALS: BMI 32.5
--- NOTE | 2023-11-22 10:26 | SUR.PREOP ---
Patient called regarding upcoming procedure. Reviewed preop instructions, appointment times, and procedure prep.
--- NOTE | 2023-11-25 09:16 | PC.NURSE ---
Patient called to follow up on upper resp. congestion and cough. She states she is much better now an feels like going forward with procedure. She denies any different SOB outside of normal COPD and cough is improved with no secretions-denies fever and wheezing. She took her last dose of xarelto on Sat,.
[2023-11-26 08:05] VITALS: BP 122/76; PULSE 83; RESP 18; TEMP 36.2; O2SAT 100; BMI 33.2
[2023-11-26] MEDS: LACTATED RINGERS 1,000 ML 150 ML IV CONT (08:09)
--- NOTE | 2023-11-26 08:38 | WPDANESEPPF ---
Anes - Initial Pre Proc Eval Procedure: Operation Date: 11/26/23 09:00 Proposed Procedures p Colonoscopy - Ashwin Ko MD Date/Time: 11/26/23 08:38 Surgeon: Ashwin Ko MD Pre Op Diagnosis: hx colon polyps Patient Data Age: 63 Gender: F Height: 1.63 m Weight: 87.7 kg Last Vital Signs Temp 97.1 F L 11/26/23 08:05 Pulse 83 11/26/23 08:05 Resp 18 11/26/23 08:05 BP 122/76 11/26/23 08:05 Pulse Ox 100 11/26/23 08:05 O2 Del Method Room Air 11/26/23 08:05 Allergies Allergy/AdvReac Type Severity Reaction Status Date / Time codeine Allergy Severe Anaphylaxis Verified 11/26/23 08:00 hydromorphone Allergy Severe Blister Verified 11/26/23 08:00 latex Allergy Severe Blister Verified 11/26/23 08:00 levofloxacin Allergy Severe BLISTERS Verified 11/26/23 08:00 ON BODY morphine Allergy Severe Hypotension Verified 11/26/23 08:00 oxycodone Allergy Severe Blister Verified 11/26/23 08:00 penicillin G Allergy Severe ANAPHYLACTI Verified 11/26/23 08:00 C Penicillins Allergy Severe Anaphylaxis Verified 11/26/23 08:00 shellfish derived Allergy Severe Swelling Verified 11/26/23 08:00 of Lip/Tongue/Throat vancomycin Allergy Severe Red Pablito, Verified 11/26/23 08:00 Patient unsure of reaction hydrocodone Allergy Intermediate Itching Verified 11/26/23 08:00 Home Medications Medication Instructions Recorded Confirmed Type rivaroxaban 20 mg tablet (Xarelto) 20 mg PO DAILY 07/29/19 11/05/23 History folic acid 1 mg tablet 1 mg PO DAILY 08/04/19 11/05/23 History cyanocobalamin (vitamin B-12) 1,000 mcg PO 2XW 02/25/20 11/05/23 History 1,000 mcg tablet (Vitamin B-12) albuterol sulfate 2.5 mg/3 mL 2.5 mg (3 mL) inhalation Q4-6H PRN 06/09/21 11/05/23 Rx (0.083 %) solution for nebulization shortness of breath or wheezing #90 mL aspirin 81 mg chewable tablet 81 mg PO DAILY 10/06/22 11/05/23 History atorvastatin 40 mg tablet 40 mg PO DAILY #90 tabs 07/01/23 11/05/23 Rx fluticasone propionate 50 2 spray intranasal DAILY #18 mL 08/12/23 11/05/23 Rx mcg/actuation nasal spray,suspension (Flonase Allergy Relief) levothyroxine 75 mcg tablet 75 mcg PO DAILY #90 tabs 08/26/23 11/26/23 Rx pantoprazole 20 mg tablet,delayed 20 mg PO DAILY #90 tabs 08/26/23 11/05/23 Rx release nebivolol 5 mg tablet See Rx Instructions .Route 09/03/23 11/05/23 Rx .COMPLEX #90 tabs cholestyramine (with sugar) 4 gram 4 g PO BID #348.6 grams 09/11/23 11/05/23 Rx oral powder albuterol sulfate 90 mcg/actuation 2 puff inhalation Q6H PRN 09/20/23 11/05/23 Rx aerosol inhaler (ProAir HFA) Shortness Of Breath #8.5 grams ergocalciferol (vitamin D2) 1,250 1,250 mcg PO MONTHLY #6 caps 09/20/23 11/05/23 Rx mcg (50,000 unit) capsule cyclobenzaprine 10 mg tablet See Rx Instructions .Route 10/23/23 11/05/23 Rx .COMPLEX #90 tabs nystatin 100,000 unit/gram topical 1 applic topical BID PRN rash 11/05/23 11/05/23 History cream ondansetron HCl 4 mg tablet 4 mg PO Q6H PRN Nausea And 11/05/23 Rx Vomiting #4 tabs alprazolam 0.5 mg tablet (Xanax) 0.5 mg PO BID PRN anxiety #60 tabs 11/21/23 11/26/23 Rx Patient hx anesthesia problems: none Family hx anesthesia problems: none Results Review: All pre-operative results and documents have been reviewed as part of the pre-operative evaluation. [facility] Past Medical History Medical History (Updated 10/19/23 @ 18:46 by Ashwin Ko MD) Abdominal pain Adenomatous colon polyp Adult hypothyroidism BMI 34.0-34.9,adult Bradycardia Carotid artery disease Status post left carotid endarterectomy. Colon cancer screening Colon, diverticulosis COPD (chronic obstructive pulmonary disease) COVID-19 (01/2022) Current use of nursing home anticoagulation CVA (cerebral vascular accident) With short-term memory loss. Diarrhea Diverticulosis With history of diverticulitis. Dizziness Dysphagia Fibromyalgia
--- NOTE | 2023-11-26 08:41 | PM.HPGS ---
History of Present Illness History of Present Illness Consent: Risks, benefits, and alternatives have been discussed and questions answered. Patient agrees to proceed with procedure. Chief complaint: hx colon polyps Narrative: Gege Vidal is a 63 year old female with colon polyp in 2020, also intermittent diarrhea using cholestyramine. Review of Systems Constitutional: Constitutional: Denies headache(s) and Denies weakness Eyes: Eyes: Denies blurry vision ENT: Reports Normal hearing present, Denies headache(s) and Denies neck pain Cardiovascular: Cardiovascular: Denies chest pain and Denies dyspnea Respiratory: Respiratory: Denies dyspnea Gastrointestinal: Gastrointestinal: Reports no additional gastrointestinal complaints Genitourinary: Genitourinary: Denies dysuria Musculoskeletal: Musculoskeletal: Denies neck pain Integumentary/Breasts: Skin/Breast: Denies dry skin Neurologic: Reports Normal hearing present, Denies headache(s) and Denies weakness Psychiatric: Psychiatric: Denies anxiety Endocrine: Endocrine: Denies change in body appearance Hematologic/Lymphatic: Hematologic/Lymphatic: Denies easy bleeding Allergic/Immunologic: Allergic/Immunologic: Denies urticaria PMFSH Past Medical History Medical History (Updated 10/19/23 @ 18:46 by Ashwin Ko MD) Abdominal pain Adenomatous colon polyp Adult hypothyroidism BMI 34.0-34.9,adult Bradycardia Carotid artery disease Status post left carotid endarterectomy. Colon cancer screening Colon, diverticulosis COPD (chronic obstructive pulmonary disease) COVID-19 (01/2022) Current use of long term care administrator anticoagulation CVA (cerebral vascular accident) With short-term memory loss. Diarrhea Diverticulosis With history of diverticulitis. Dizziness Dysphagia Fibromyalgia GERD (gastroesophageal reflux disease) History of cervical cancer History of colon polyps History of colon polyps Hx of deep venous thrombosis Hyperglycemia Hyperlipidemia Hypersomnia Hypothyroidism Low hemoglobin Mouth pain Nicotine abuse Obesity On long term care administrator drug therapy Osteoarthritis Other and unspecified hyperlipidemia Otitis media Palpitations Personal history of nicotine dependence Positive colorectal cancer screening using Cologuard test Recurrent falls Symptomatic PVCs On metoprolol 50 milligrams daily. Tobacco abuse Tobacco dependence Vertigo Vitamin B12 deficiency Vitamin D deficiency Surgical History Surgical History History of arthroplasty of right knee History of left-sided carotid endarterectomy History of neck surgery History of shoulder surgery Hx of tonsillectomy Hx of total knee arthroplasty Right S/P cholecystectomy S/P medial meniscectomy of left knee (09/2021) Status post cervical spinal fusion Status post cholecystectomy Status post left breast biopsy Status post partial hysterectomy For cervical cancer. Status post right rotator cuff repair Status post tonsillectomy Status post tubal ligation Family History Family History Mother Depression Family history of diabetes mellitus in first degree relative Diabetes mellitus Father Family history of diabetes mellitus in first degree relative Acute myocardial infarction Diabetes mellitus Sibling Hepatitis Pulmonary embolism Sibling No problems noted. Other Family history of allergic disorder Family history of cardiovascular disease Family history of malignant neoplasm Hypertension Social History Social History (Updated 09/20/23 @ 09:12 by Luli García CNA) Social History: The patient is . She lives with her son in [place]. She designates her sons, Laith Howard and Kemal Islas, as her surrogate decision makers and she wishes to be a full code. She has smoked at least 1 pack of cigarettes per day for almost 40
[2023-11-26 08:59] VITALS: BP 105/54; PULSE 64; RESP 16; O2SAT 97
[2023-11-26 09:09] VITALS: BP 118/101; PULSE 68; RESP 15; O2SAT 97
[2023-11-26 09:19] VITALS: BP 123/79; PULSE 66; RESP 18; O2SAT 98
== END 2023-11-26 09:25 | disposition home or self-care (01) ==
PROVIDERS: PCP Family Medicine; Visit Provider Internal Medicine Gastroenterology
PROC: 0DJD8ZZ Inspection of Lower Intestinal Tract, Via Natural or Artificial Opening Endoscopic (ICD-10-PCS; CPT 45378; principal; 2023-11-26 09:00)
DX: K57.30 Diverticulosis of large intestine without perforation or abscess without bleeding (principal); K64.8 Other hemorrhoids; E03.9 Hypothyroidism, unspecified; R73.9 Hyperglycemia, unspecified; E78.5 Hyperlipidemia, unspecified; E53.8 Deficiency of other specified B group vitamins; E55.9 Vitamin D deficiency, unspecified; J44.9 Chronic obstructive pulmonary disease, unspecified; K57.32 Diverticulitis of large intestine without perforation or abscess without bleeding; K21.9 Gastro-esophageal reflux disease without esophagitis; G47.10 Hypersomnia, unspecified; E66.9 Obesity, unspecified; Z68.33 Body mass index [BMI] 33.0-33.9, adult; Z79.01 Long term (current) use of anticoagulants; Z79.51 Long term (current) use of inhaled steroids; Z79.82 Long term (current) use of aspirin; Z98.890 Other specified postprocedural states; Z90.49 Acquired absence of other specified parts of digestive tract; Z87.891 Personal history of nicotine dependence; Z86.010 Personal history of colon polyps; Z86.79 Personal history of other diseases of the circulatory system; Z85.41 Personal history of malignant neoplasm of cervix uteri; Z86.718 Personal history of other venous thrombosis and embolism; Z82.49 Family history of ischemic heart disease and other diseases of the circulatory system; Z80.9 Family history of malignant neoplasm, unspecified
CPT/HCPCS: 45380; 88305; J2704; J7120

== ENCOUNTER 2023-12-30 08:55 | Emergency (ER) | payer MEDICARE, MEDICAID, SELFPAY ==
--- NOTE | ~2023-12-30 | CT_ITS ---
CT of the Abdomen and Pelvis: Indication: Abdominal pain Technique: 2.5 mm axial scans were obtained through the abdomen and pelvis following intravenous adm inistration of 100 cc of Omnipaque 350. Dose reduction technique was used on this scan by utilizing a utomated exposure control and iterative reconstruction technique. The dose-length product (DLP) was 7 06.36 mGy-cm. COMPARISON: 10/25/2023 Findings: Scans through the lung bases are unremarkable. The liver, spleen, pancreas, adrenals and kidneys are within normal limits. Cholecystectomy clips are present. There are atherosclerotic calcifications of the aorta. No lymphadenopathy. There is wall thickening and pericolic inflammatory change of the distal sigmoid colon/proximal rectu m, compatible diverticulitis other infectious/inflammatory process. No abscess or free air evident. N o bowel obstruction. Images through the pelvis were performed. Urinary bladder unremarkable. No pelvic mass seen. No ascit es. Impression: Acute diverticulitis versus other colitis of the distal sigmoid colon/proximal rectum. No abscess or free air. Reviewed, dictated and finalized at location M. Impression: Acute diverticulitis versus other colitis of the distal sigmoid colon/proximal rectum. No abscess or free air.
[2023-12-30 09:04] VITALS: BP 138/83; PULSE 103; RESP 16; TEMP 36.8; O2SAT 98
[2023-12-30 09:13] VITALS: BP 129/85; PULSE 95; RESP 20; O2SAT 95
[2023-12-30 09:25] LABS: Basophils Percent Auto 0.2 % (0.2-1.2); Eosinophils Absolute Auto 0.2 K/mm3 (0-0.3); Eosinophils Percent Auto 1.1 % (0-4.4); Hematocrit 41.1 % (37.0-47.0); Immature Granulocyte Absolute 0.07 K/mm3 (0.00-0.031); Immature Granulocyte Percent A 0.5 % (0-0.5); Lymphocytes Absolute Auto 1.61 K/mm3 (0.9-3.2); Lymphocytes Percent Auto 11.5 % (18.3-44.2); Mean Corpuscular HGB Conc 31.6 g/dl (32-36); Mean Corpuscular Hemoglobin 27.2 pg (26-34); Mean Platelet Volume 9.5 fl (7.4-10.4); Monocytes Absolute Auto 0.9 K/mm3 (0.1-0.6); Monocytes Percent Auto 6.6 % (2.6-8.5); Neutrophils Absolute Auto 11.2 K/mm3 (1.3-6.7); Neutrophils Percent Auto 80.1 % (45.5-73.1); Platelet Count Result 314 k/mm3 (150-375); Red Blood Count 4.78 M/mm3 (4.2-5.4); Red Cell Distribution Width 13.3 % (11.5-14.5)
[2023-12-30 09:35] LABS: Appearance Urine Cloudy (Clear); Bacteria Urine Rare /hpf; Bilirubin Urine 2+ (Negative); Blood Urine Trace (Negative); Color Urine Dark Yellow (Yellow); Glucose Urine UA Negative (Negative); Ketones Urine 1+ mg/dL (Negative); Leukocyte Esterase Ur Trace LEU/UL (Negative); Mucus Urine Present /lpf; Nitrate Urine Negative (Negative); Protein Urine 1+ mg/dL (Negative); Squamous Epithelial Cell Urine Moderate /hpf (Few); WBC Urine 0-5 /hpf (0-3); pH Urine 5.5 (5.0-9.0)
[2023-12-30 09:36] LABS: Alanine Aminotransferase 15 U/L (6-35); Albumin Level 4.7 g/dL (3.5-5.1); Alkaline Phosphatase 175 U/L (38-126); Anion Gap 12 mmol/L (4-12); Aspartate Amino Transferase 18 U/L (14-36); Bilirubin,Total 1.1 mg/dL (0.2-1.3); Blood Urea Nitrogen 12 mg/dL (7-17); Calcium 9.6 mg/dL (8.4-10.2); Carbon Dioxide 22 mmol/L (22-30); Chloride 103 mmol/L (98-107); Estimated CRCL calculation 47 ml/min; Estimated Glomerular Filt Rate 46; Glucose 118 mg/dL (65-110); Lipase 57 U/L (23-300); Potassium 3.7 mmol/L (3.4-5.0); Sodium 137 mmol/L (137-145)
[2023-12-30 09:37] VITALS: BP 121/110; PULSE 76; RESP 18; O2SAT 93
--- NOTE | 2023-12-30 09:41 | ED.NAVMDI ---
HPI - Nausea/Vomiting/Diarrhea General Chief complaint: Nausea/Vomiting/Diarrhea Stated complaint: N/V Time Seen by Provider: 12/30/23 09:04 Source: patient Mode of arrival: ambulatory Limitations: no limitations History of Present Illness HPI Narrative: Patient is a 63-year-old female who presents to the ED with report of nausea, vomiting, diarrhea. Patient reports she has been sick since Saturday. Has been unable to keep down any food or drink, due to persistent vomiting. She has had some discomfort throughout her lower abdomen with eating, but denies pain currently. Reports history of diverticulitis and states this feels similar. States overall she feels weak, fatigued, dehydrated. Also reports subjective fevers, chills, chronic cough. Denies congestion, rectal bleeding, melena urinary complaints. Denies family members with similar symptoms. Related Data Home Medications Medication Instructions Recorded Confirmed rivaroxaban 20 mg tablet (Xarelto) 20 mg PO DAILY 07/29/19 12/09/23 folic acid 1 mg tablet 1 mg PO DAILY 08/04/19 12/09/23 cyanocobalamin (vitamin B-12) 1,000 mcg PO 2XW 02/25/20 12/09/23 1,000 mcg tablet (Vitamin B-12) aspirin 81 mg chewable tablet 81 mg PO DAILY 10/06/22 12/09/23 nystatin 100,000 unit/gram topical 1 applic topical BID PRN rash 11/05/23 12/09/23 cream Allergies Allergy/AdvReac Type Severity Reaction Status Date / Time codeine Allergy Severe Anaphylaxis Verified 12/30/23 09:05 hydromorphone Allergy Severe Blister Verified 12/30/23 09:05 latex Allergy Severe Blister Verified 12/30/23 09:05 levofloxacin Allergy Severe BLISTERS Verified 12/30/23 09:05 ON BODY morphine Allergy Severe Hypotension Verified 12/30/23 09:05 oxycodone Allergy Severe Blister Verified 12/30/23 09:05 penicillin G Allergy Severe ANAPHYLACTI Verified 12/30/23 09:05 C Penicillins Allergy Severe Anaphylaxis Verified 12/30/23 09:05 shellfish derived Allergy Severe Swelling Verified 12/30/23 09:05 of Lip/Tongue/Throat vancomycin Allergy Severe Red [place], Verified 12/30/23 09:05 Patient unsure of reaction hydrocodone Allergy Intermediate Itching Verified 12/30/23 09:05 Review of Systems Review of Systems: CONSTITUTIONAL: See HPI. ENT: Denies rhinorrhea, congestion, sore throat. CARDIOVASCULAR: Denies chest pain, palpitations, or edema. RESPIRATORY: See HPI. GASTROINTESTINAL: See HPI. GENITOURINARY: Denies dysuria or hematuria. MUSCULOSKELETAL: Denies back pain, extremity pain, myalgia. All systems reviewed & are unremarkable except as noted in HPI and below PMFSH Past Medical History Medical History Abdominal pain Adenomatous colon polyp Adult hypothyroidism BMI 34.0-34.9,adult Bradycardia Carotid artery disease Status post left carotid endarterectomy. 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 Diarrhea Diverticulosis With history of diverticulitis. Dizziness Dysphagia Fibromyalgia GERD (gastroesophageal reflux disease) History of cervical cancer History of colon polyps History of colon polyps Hx of deep venous thrombosis Hyperglycemia Hyperlipidemia Hypersomnia Hypothyroidism Low hemoglobin Mouth pain Nicotine abuse Obesity On fpc drug therapy Osteoarthritis Other and unspecified hyperlipidemia Otitis media Palpitations Personal history of nicotine dependence Positive colorectal cancer screening using Cologuard test Recurrent falls Symptomatic PVCs On metoprolol 50 milligrams daily. Tobacco abuse Tobacco dependence Vertigo Vitamin B12 deficiency Vitamin D deficiency Surgical History Surgical History History of arthroplasty of right knee History of left-sided carotid endarterectomy History of neck surgery History of shoulder surgery Hx of tonsillectomy Hx of total knee arthroplasty Right S/P cholecystectomy S/P medial meniscectomy of left knee (09/2021) Status post cervical spinal fusion Status post cholecystectomy Status post left breast biopsy Status post partial hysterectomy For cervical cancer. Status post right rotator cuff repair Status post tonsillectomy Status post tubal ligation Family History Family History Mother Depression Family history of diabetes mellitus in first degree relative Diabetes mellitus Father Family history of diabetes mellitus in first degree relative Acute myocardial infarction Diabetes mellitus Sibling Hepatitis Pulmonary embolism Sibling No problems noted. Other Family history of allergic disorder Family history of cardiovascular disease Family history of malignant neoplasm Hypertension Social History Social History Social History: The patient is . She lives with her son in [place]. She designates her sons, Laith Howard and Kemal Islas, as her surrogate decision makers and she wishes to be a full code. She has smoked at least 1 pack of cigarettes per day for almost 40 years. She denies alcohol and drug abuse. Smoking packs per day: 1 Smoking cigarettes per day: 20.0 Years smoked: 40 Smoking pack-years: 40.00 Smoking status: Former smoker Tobacco type: cigarettes Second hand tobacco smoke exposure: Yes Smoking end date: 07/17/23 Additional smoking assessment comments: CUTTING DOWN TRYING TO QUIT MOST DAYS LESS THAN 0.5PK, Alcohol intake: current Substance use: never Substance use type: does not use Do You Feel Safe in your Home?: Yes Lack of Transportation: No Lack of Food: Never True Current Housing: I Have Housing Concerned About Future Housing: No Difficulty Paying Gas/Electric Bills: No Difficulty Paying for Meds: No Currently Unemployed: No Education: High School Diploma/GED Difficulty w/ Childcare or Family Care: No Living arrangements: with family Occupation/Education: retired 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 HEAD: Normocephalic, atraumatic. ENT: MMs dry. RESPIRATORY: Airway patent, respirations nonlabored. Clear to auscultation bilaterally, no rales, rhonchi, wheezing. CARDIOVASCULAR: Borderline tachycardic with regular rhythm without murmurs, rubs, or gallops. ABDOMINAL: Soft, no significant tenderness throughout abdomen, nondistended. Slightly hypoactive BS. MUSCULOSKELETAL: Moves all extremities. No gross deformities. SKIN: Warm, dry, normal color. NEURO: A&O X3. Speech clear. PSYCHIATRIC: Appropriate mood and affect. Normal interaction. Course Vital Signs Vital signs: Vital Signs Temperature 98.2 F 12/30/23 09:04 Pulse Rate 103 H 12/30/23 09:04 Respiratory Rate 16 12/30/23 09:04 Blood Pressure 138/83 12/30/23 09:04 Pulse Oximetry 98 12/30/23 09:04 Temperature 98.2 F 12/30/23 09:04 Pulse Rate 76 12/30/23 09:37 Respiratory Rate 18 12/30/23 09:37 Blood Pressure 121/110 H 12/30/23 09:37 Pulse Oximetry 93 12/30/23 09:37 MDM - Nausea/Vomiting/Diarrhea MDM Narrative Medical decision making narrative: Patient presented to ED with several day history of nausea, vomiting, diarrhea, feeling very weak and dehydrated. Patient borderline tachycardic upon arrival. Afebrile. In no acute distress. Does appear dry on exam. CBC with white blood cell count of 14.0. Neutrophil predominance. No bandemia. CMP with stable electrolytes, creatinine 1.2. Fairly consistent with patient's previous records. Given fluids in the ED. Normal LFTs. Normal lipase. UA with 1+ ketones, trace amount of blood. No signs of infection. Viral swabs are negative. CT of the abdomen pelvis was obtained given leukocytosis, intermittent lower abdominal pain, history of diverticulitis that felt similar. CT does show evidence of acute diverticulitis. No perforation or abscess. Discussed lab and imaging findings with patient. She is feeling better with supportive therapy. Able to tolerate PO intake. Will be discharged at this time with Zofran for home use, antibiotics for diverticulitis. Will start patient on Bactrim and Flagyl per up-to-date guidelines. She does have numerous medication allergies, but has tolerated these medications in the past. Advised patient to follow-up with PCP, GI for further evaluation, given strict return precautions. She is in agreement with plan. Discharged in stable condition. Medical Records Attestation: I reviewed the patient's medical records. Lab Data Attestation: I reviewed the patient's lab results. 12/30/23 09:16 12/30/23 09:16 Labs: Lab Results 12/30/23 12/30/23 Range/Units 09:16 09:43 WBC 14.0 H (4.5-10.0) K/mm3 RBC 4.78 (4.2-5.4) M/mm3 Hgb 13.0 (12.0-15.0) g/dL Hct 41.1 (37.0-47.0) % MCV 86.0 (80-100) fl MCH 27.2 (26-34) pg MCHC 31.6 L (32-36) g/dl RDW 13.3 (11.5-14.5) % Plt Count 314 (150-375) k/mm3 MPV 9.5 (7.4-10.4) fl Immature Gran % (Auto) 0.5 (0-0.5) % Neut % (Auto) 80.1 H (45.5-73.1) % Lymph % (Auto) 11.5 L (18.3-44.2) % [place] % (Auto) 6.6 (2.6-8.5) % Eos % (Auto) 1.1 (0-4.4) % Baso % (Auto) 0.2 (0.2-1.2) % Lymph # (Auto) 1.61 (0.9-3.2) K/mm3 [place] # (Auto) 0.9 H (0.1-0.6) K/mm3 Eos # (Auto) 0.2 (0-0.3) K/mm3 Baso # (Auto) 0.0 (0.0-0.1) K/mm3 Abs Immat Gran (auto) 0.07 H (0.00-0.031) K/mm3 Absolute Neuts (auto) 11.2 H (1.3-6.7) K/mm3 Absolute Nucleated RBC 0.000 (0.0-0.012) K/mm3 Nucleated RBC % 0.0 (0.0-0.2) % Sodium 137 (137-145) mmol/L Potassium 3.7 (3.4-5.0) mmol/L Chloride 103 (98-107) mmol/L Carbon Dioxide 22 (22-30) mmol/L Anion Gap 12 (4-12) mmol/L BUN 12 (7-17) mg/dL Creatinine 1.20 H (0.7-1.0) mg/dL Estim Creat Clear Calc 47 ml/min Estimated GFR 46 L (59 - ) Glucose 118 H (65-110) mg/dL Calcium 9.6 (8.4-10.2) mg/dL Magnesium 2.4 H (1.6-2.3) mg/dL Total Bilirubin 1.1 (0.2-1.3) mg/dL AST 18 (14-36) U/L ALT 15 (6-35) U/L Alkaline Phosphatase 175 H (38-126) U/L Total Protein 9.0 H (6.3-8.2) g/dL Albumin 4.7 (3.5-5.1) g/dL Lipase 57 (23-300) U/L Urine Color Dark yellow (Yellow) Urine Appearance Cloudy H (Clear) Urine pH 5.5 (5.0-9.0) Ur Specific [place] 1.031 (1.001-1.035) Urine Protein 1+ H (Negative) mg/dL Urine Glucose (UA) Negative (Negative) mg/dL Urine Ketones 1+ H (Negative) mg/dL Ur Blood (Man) Trace (Negative) Urine Nitrate Negative (Negative) Urine Bilirubin 2+ H (Negative) Urine Urobilinogen 1.0 (<2.0) mg/dL Leukocyte Esterase Rfl Trace H (Negative) DIMITRIOS/UL Urine RBC 3-5 H (0-2) /hpf Urine WBC 0-5 (0-3) /hpf Ur Squamous Epith Cells Moderate (Few) /hpf Urine Bacteria Rare /hpf Urine Casts 3-5 Urine Mucus Present /lpf Influenza A (RT-PCR) Negative (Negative) Influenza B (RT-PCR) Negative (Negative) RSV (RT-PCR) Negative (Negative) SARS-CoV-2 RNA (RT-PCR) Negative (Negative) Imaging Data Attestation: I personally reviewed and interpreted this imaging study as follows: Radiologist's impression: ITS Impressions Abdomen/Pelvis CT 12/30/23 10:43 Impression: Acute diverticulitis versus other colitis of the distal sigmoid colon/proximal rectum. No abscess or free air. Discharge Plan Discharge Clinical Impression: Acute diverticulitis Nausea and vomiting Qualifiers: Vomiting type: unspecified Qualified Code(s): R11.2 - Nausea with vomiting, unspecified Patient Disposition: Home, Self-Care Condition: Stable Instructions: Antibiotic Form, Diverticulitis (ED), Clear Liquid Diet (ED), Acute Nausea and Vomiting (ED), Diverticulitis Diet (ED) Additional Instructions: Utilize zofran as needed for further nausea. Increase fluid intake. Recommend electrolyte rich fluids, gatorade, pedialyte, body armour. Recommend clear liquids or bland diet until symptoms improve, such as bananas, rice, applesauce, toast, or crackers. Follow up with your primary care doctor, GI, and/or general surgery for further evaluation. Return to the ED if you experience worsening or severe symptoms, unable to keep down food or drink, severe pain, fevers, rectal bleeding, vomiting blood, or any other symptoms of concern. Prescriptions: New metronidazole 500 mg tablet 500 mg PO Q8H 7 Days Qty: 21 0RF sulfamethoxazole-trimethoprim [Bactrim DS] 800-160 mg tablet 1 tablet PO Q12H 7 Days Qty: 14 0RF ondansetron 4 mg tablet,disintegrating 4 mg PO Q8H PRN (Reason: nausea and vomiting) Qty: 15 0RF No Action aspirin [Baby Aspirin] 81 mg Tablet,Chewable 81 mg PO DAILY Xarelto 20 mg tablet 20 mg PO DAILY Hold Instructions: HOLD - Resume on 03/26/22 folic acid 1 mg tablet 1 mg PO DAILY albuterol sulfate [ProAir HFA] 90 mcg/actuation HFA aerosol inhaler 2 puff INHALATION Q6H PRN (Reason: Shortness Of Breath) Qty: 8.5 5RF ergocalciferol (vitamin D2) 1,250 mcg (50,000 unit) capsule 1,250 mcg PO MONTHLY Qty: 6 0RF Rx Instructions: TAKE 1 CAPSULE BY MOUTH ONCE EVERY MONTH 15 th of the month fluticasone propionate [Flonase Allergy Relief] 50 mcg/actuation spray,suspension 2 spray intranasal DAILY Qty: 18 3RF Rx Instructions: administer into each nostril nystatin 100,000 unit/gram cream 1 applic topical BID PRN (Reason: rash) cyanocobalamin (vitamin B-12) [Vitamin B-12] 1,000 mcg tablet 1,000 mcg PO 2XW Rx Instructions: 1,000 mcg PO times weekly; SATURDAY and SATURDAY albuterol sulfate 2.5 mg /3 mL (0.083 %) solution for nebulization 2.5 mg inhalation Q4-6H PRN (Reason: shortness of breath or wheezing) Qty: 90 1RF Rx Instructions: Please dispense 3 ml vials. pantoprazole 20 mg tablet,delayed release (DR/EC) 20 mg PO DAILY Qty: 90 1RF Rx Instructions: TAKE 1 TABLET BY MOUTH ONCE DAILY IN THE MORNING levothyroxine 75 mcg tablet 75 mcg PO DAILY Qty: 90 1RF Rx Instructions: Take 1 tablet by mouth once daily nebivolol 5 mg tablet See Rx Instructions .ROUTE .COMPLEX Qty: 90 2RF Dose Instruction: TAKE 1 TABLET BY MOUTH ONCE DAILY AT BEDTIME Rx Instructions: TAKE 1 TABLET BY MOUTH ONCE DAILY AT BEDTIME cyclobenzaprine 10 mg tablet See Rx Instructions .ROUTE .COMPLEX Qty: 90 0RF Dose Instruction: Take 1 tablet by mouth three times daily as needed for muscle spasm Rx Instructions: Take 1 tablet by mouth three times daily as needed for muscle spasm alprazolam [Xanax] 0.5 mg tablet 0.5 mg PO BID PRN (Reason: anxiety) Qty: 60 0RF atorvastatin 40 mg tablet 40 mg PO DAILY Qty: 90 1RF Rx Instructions: Take 1 tablet by mouth once daily Follow-up/Referrals: Eris Vu MD [Primary Care Provider] - Time of Disposition: 11:30
[2023-12-30] MEDS: ONDANSETRON INJ 4 MG/2 ML VIAL IV PUSH (09:55)
[2023-12-30] MEDS: FAMOTIDINE 20 MG/2 ML VIAL IV PUSH (09:55)
[2023-12-30] MEDS: SODIUM CHLORIDE 0.9% IV 1,000 ML 999 ML IV CONT ×2 (09:55→10:04)
[2023-12-30 09:59] LABS: Add Urine Microscopic? YES; Specific Grav Ur 1.031 (1.001-1.035)
[2023-12-30 10:02] LABS: Magnesium 2.4 mg/dL (1.6-2.3)
[2023-12-30 10:28] LABS: Influenza A QL RT-PCR Negative (Negative); Influenza B QL RT-PCR Negative (Negative); RSV RNA, RT-PCR Negative (Negative); SARS-CoV-2 RNA PCR Negative (Negative)
[2023-12-30 11:02] VITALS: BP 134/52; O2SAT 98
[2023-12-30 11:16] VITALS: BP 133/66; PULSE 72; RESP 18; O2SAT 98
[2023-12-30 11:42] VITALS: BP 117/68; PULSE 67; RESP 16; TEMP 36.8; O2SAT 99
== END 2023-12-30 11:50 | disposition home or self-care (01) ==
PROVIDERS: Emergency Provider Physician Assistant; PCP Family Medicine
DX: K57.32 Diverticulitis of large intestine without perforation or abscess without bleeding (principal); R11.2 Nausea with vomiting, unspecified; I25.10 Atherosclerotic heart disease of native coronary artery without angina pectoris; I69.911 Memory deficit following unspecified cerebrovascular disease; E03.9 Hypothyroidism, unspecified; E53.8 Deficiency of other specified B group vitamins; E55.9 Vitamin D deficiency, unspecified; E78.5 Hyperlipidemia, unspecified; E66.9 Obesity, unspecified; Z68.33 Body mass index [BMI] 33.0-33.9, adult; K21.9 Gastro-esophageal reflux disease without esophagitis; M79.7 Fibromyalgia; M19.90 Unspecified osteoarthritis, unspecified site; Z20.822 Contact with and (suspected) exposure to COVID-19; Z96.651 Presence of right artificial knee joint; Z86.010 Personal history of colon polyps; Z86.16 Personal history of COVID-19; Z85.41 Personal history of malignant neoplasm of cervix uteri; Z86.718 Personal history of other venous thrombosis and embolism; Z87.891 Personal history of nicotine dependence; Z90.49 Acquired absence of other specified parts of digestive tract; Z90.711 Acquired absence of uterus with remaining cervical stump; Z79.82 Long term (current) use of aspirin; Z79.01 Long term (current) use of anticoagulants
CPT/HCPCS: 36415; 74177; 80053; 81001; 83690; 83735; 85025; 87637; 96361; 96374; 96375; 99284; J2405; J7030; Q9967

== ENCOUNTER 2024-01-02 15:40 | Emergency (ER) | payer MEDICARE, MEDICAID, SELFPAY ==
--- NOTE | ~2024-01-02 | CT_ITS ---
EXAMINATION: CT abdomen pelvis w con DATE: 01/02/2024 20:02 INDICATION: Diverticulitis. TECHNIQUE: Computed tomography (CT) of the abdomen and pelvis was performed with 100 mL Omnipaque 350 intravenous contrast. Automated exposure control and iterative reconstruction technique were employe d. The dose-length product was 540.65 mGy-cm. COMPARISON: CT abdomen and pelvis 12/30/23, 10/25/2023 FINDINGS: The visualized portions of the lung bases are clear without pneumonia or pleural effusion. The heart size is normal. No pericardial effusion. There is a small sliding hiatal hernia. The liver is normal. There are changes of cholecystectomy. The spleen, pancreas, adrenal glands, and kidneys ar e normal. There is wall thickening of the sigmoid colon with surrounding fat stranding. There are sca ttered diverticula in the colon. There are no dilated loops of bowel. The appendix is normal. There a re no pathologically enlarged lymph nodes. There is no free intraperitoneal fluid. Aortic atheroscler osis is noted. There is mild thoracic and lumbar spondylosis. IMPRESSION: 1. Stable acute sigmoid diverticulitis. No perforation or abscess. Reviewed, dictated and finalized at location E.
[2024-01-02 16:07] VITALS: BP 102/73; PULSE 96; RESP 16; TEMP 37; O2SAT 98
--- NOTE | 2024-01-02 16:24 | ED.ABDPAIN ---
HPI - Abdominal Pain General Chief Complaint: Abdominal Pain Stated Complaint: decreased appetite sent by PCP for dehydration Time Seen by Provider: 01/02/24 18:47 Focused HPI: GENERAL: Well-appearing, well-nourished, and in no acute distress. HEAD: Normocephalic, atraumatic. CHEST: Clear to auscultation. No respiratory distress. HEART: Regular rate and rhythm. NEURO: Alert and oriented x3. Patient screened in triage and initial orders placed. Additional care and disposition to be based upon diagnostic testing and treatment. 7-year-old female presents to the emergency room for evaluation of nausea vomiting. Patient was seen here on Saturday upper abdominal pain, diagnosed with diverticulitis. Patient states she was sent home with Bactrim and metronidazole. Patient continues to experience nausea and unable to keep food or fluids down. Denies any blood in her vomit. Denies fevers Related Data Home Medications Medication Instructions Recorded Confirmed rivaroxaban 20 mg tablet (Xarelto) 20 mg PO DAILY 07/29/19 12/09/23 folic acid 1 mg tablet 1 mg PO DAILY 08/04/19 12/09/23 aspirin 81 mg chewable tablet 81 mg PO DAILY 10/06/22 12/09/23 nystatin 100,000 unit/gram topical 1 applic topical BID PRN rash 11/05/23 12/09/23 cream Allergies Allergy/AdvReac Type Severity Reaction Status Date / Time codeine Allergy Severe Anaphylaxis Verified 01/02/24 13:22 hydromorphone Allergy Severe Blister Verified 01/02/24 13:22 latex Allergy Severe Blister Verified 01/02/24 13:22 levofloxacin Allergy Severe BLISTERS Verified 01/02/24 13:22 ON BODY morphine Allergy Severe Hypotension Verified 01/02/24 13:22 oxycodone Allergy Severe Blister Verified 01/02/24 13:22 penicillin G Allergy Severe ANAPHYLACTI Verified 01/02/24 13:22 C Penicillins Allergy Severe Anaphylaxis Verified 01/02/24 13:22 shellfish derived Allergy Severe Swelling Verified 01/02/24 13:22 of Lip/Tongue/Throat vancomycin Allergy Severe Red [place], Verified 01/02/24 13:22 Patient unsure of reaction hydrocodone Allergy Intermediate Itching Verified 01/02/24 13:22 [facility] Past Medical History Medical History Abdominal pain Adenomatous colon polyp Adult hypothyroidism BMI 34.0-34.9,adult Bradycardia Carotid artery disease Status post left carotid endarterectomy. Colon cancer screening Colon, diverticulosis COPD (chronic obstructive pulmonary disease) COVID-19 (01/2022) Current use of skilled nursing anticoagulation CVA (cerebral vascular accident) With short-term memory loss. Diarrhea Diverticulosis With history of diverticulitis. 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 Tobacco abuse Tobacco dependence Vertigo Vitamin B12 deficiency Vitamin D deficiency Surgical History Surgical History History of arthroplasty of right knee History of left-sided carotid endarterectomy History of neck surgery History of shoulder surgery Hx of tonsillectomy Hx of total knee arthroplasty Right S/P cholecystectomy S/P medial meniscectomy of left knee (09/2021) Status post cervical spinal fusion Status post cholecystectomy Status post left breast biopsy Status post partial hysterectomy For cervical cancer. Status post right rotator cuff repair Status post tonsillectomy Status post tubal ligation Family History Family Histo
[2024-01-02] MEDS: ONDANSETRON INJ 4 MG/2 ML VIAL IV PUSH (17:10)
[2024-01-02 17:31] LABS: Basophils Percent Auto 0.3 % (0.2-1.2); Eosinophils Absolute Auto 0.1 K/mm3 (0-0.3); Eosinophils Percent Auto 0.6 % (0-4.4); Hematocrit 38.1 % (37.0-47.0); Hemoglobin 12.4 g/dL (12.0-15.0); Immature Granulocyte Absolute 0.08 K/mm3 (0.00-0.031); Immature Granulocyte Percent A 0.8 % (0-0.5); Lymphocytes Absolute Auto 1.63 K/mm3 (0.9-3.2); Lymphocytes Percent Auto 16.1 % (18.3-44.2); Mean Corpuscular HGB Conc 32.5 g/dl (32-36); Mean Corpuscular Hemoglobin 27.4 pg (26-34); Mean Corpuscular Volume 84.3 fl (80-100); Mean Platelet Volume 10.2 fl (7.4-10.4); Monocytes Absolute Auto 0.9 K/mm3 (0.1-0.6); Monocytes Percent Auto 8.6 % (2.6-8.5); Neutrophils Absolute Auto 7.4 K/mm3 (1.3-6.7); Neutrophils Percent Auto 73.6 % (45.5-73.1); Platelet Count Result 368 k/mm3 (150-375); Red Blood Count 4.52 M/mm3 (4.2-5.4); Red Cell Distribution Width 13.4 % (11.5-14.5); White Blood Count 10.1 K/mm3 (4.5-10.0)
[2024-01-02 17:32] LABS: Lactic Acid Reflex 1.4 mmol/L (0.7-2.0)
[2024-01-02 17:39] LABS: Alanine Aminotransferase 13 U/L (6-35); Albumin Level 4.5 g/dL (3.5-5.1); Alkaline Phosphatase 143 U/L (38-126); Anion Gap 12 mmol/L (4-12); Aspartate Amino Transferase 25 U/L (14-36); Bilirubin,Total 0.8 mg/dL (0.2-1.3); Blood Urea Nitrogen 10 mg/dL (7-17); Calcium 9.6 mg/dL (8.4-10.2); Carbon Dioxide 23 mmol/L (22-30); Chloride 102 mmol/L (98-107); Estimated CRCL calculation 50 ml/min; Estimated Glomerular Filt Rate 50; Glucose 108 mg/dL (65-110); Lipase 72 U/L (23-300); Sodium 137 mmol/L (137-145)
[2024-01-02 18:41] LABS: Appearance Urine Turbid (Clear); Bacteria Urine None Seen /hpf; Bilirubin Urine 2+ (Negative); Blood Urine Negative (Negative); Color Urine Dark Yellow (Yellow); Glucose Urine UA Negative (Negative); Ketones Urine 1+ mg/dL (Negative); Leukocyte Esterase Ur 1+ LEU/UL (Negative); Mucus Urine Present /lpf; Need Manual Microscopic Reviewed; Nitrate Urine Negative (Negative); Protein Urine 1+ mg/dL (Negative); RBC Urine 21-50 /hpf (0-2); Squamous Epithelial Cell Urine Moderate /hpf (Few); WBC Urine 0-5 /hpf (0-3)
[2024-01-02 18:42] LABS: Specific Grav Ur 1.035 (1.001-1.035)
[2024-01-02 18:43] LABS: Add Urine Microscopic? YES
[2024-01-02] MEDS: SODIUM CHLORIDE 0.9% IV 1,000 ML 999 ML IV CONT ×2 (18:45→19:02)
--- NOTE | 2024-01-02 18:50 | ED.ABDPAIN ---
HPI - Abdominal Pain General Chief Complaint: Abdominal Pain Stated Complaint: decreased appetite sent by PCP for dehydration Time Seen by Provider: 01/02/24 18:47 Source: patient and family Mode of arrival: ambulatory Limitations: no limitations History of Present Illness HPI narrative: 63 years old white female came to the emergency room complaining Nausea, dry heaves, unable to drink or eat and feels dehydrated. Patient is telling me that she had couple sips of water over the last 4 days. Was told by her family physician to go to the emergency room immediately for admission and IV fluid, was seen in our emergency room 4 days ago, diagnosis of diverticulitis, discharged on metronidazole and Bactrim. she denies any fever or vomiting or exacerbation of her abdominal pain Related Data Home Medications Medication Instructions Recorded Confirmed rivaroxaban 20 mg tablet (Xarelto) 20 mg PO DAILY 07/29/19 12/09/23 folic acid 1 mg tablet 1 mg PO DAILY 08/04/19 12/09/23 aspirin 81 mg chewable tablet 81 mg PO DAILY 10/06/22 12/09/23 nystatin 100,000 unit/gram topical 1 applic topical BID PRN rash 11/05/23 12/09/23 cream Allergies Allergy/AdvReac Type Severity Reaction Status Date / Time codeine Allergy Severe Anaphylaxis Verified 01/02/24 13:22 hydromorphone Allergy Severe Blister Verified 01/02/24 13:22 latex Allergy Severe Blister Verified 01/02/24 13:22 levofloxacin Allergy Severe BLISTERS Verified 01/02/24 13:22 ON BODY morphine Allergy Severe Hypotension Verified 01/02/24 13:22 oxycodone Allergy Severe Blister Verified 01/02/24 13:22 penicillin G Allergy Severe ANAPHYLACTI Verified 01/02/24 13:22 C Penicillins Allergy Severe Anaphylaxis Verified 01/02/24 13:22 shellfish derived Allergy Severe Swelling Verified 01/02/24 13:22 of Lip/Tongue/Throat vancomycin Allergy Severe Red [place], Verified 01/02/24 13:22 Patient unsure of reaction hydrocodone Allergy Intermediate Itching Verified 01/02/24 13:22 Review of Systems Review of Systems: All systems reviewed & are unremarkable except as noted in HPI and below PMFSH Past Medical History Medical History Abdominal pain Adenomatous colon polyp Adult hypothyroidism BMI 34.0-34.9,adult Bradycardia Carotid artery disease Status post left carotid endarterectomy. Colon cancer screening Colon, diverticulosis COPD (chronic obstructive pulmonary disease) COVID-19 (01/2022) Current use of longterm anticoagulation CVA (cerebral vascular accident) With short-term memory loss. Diarrhea Diverticulosis With history of diverticulitis. 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 Tobacco abuse Tobacco dependence Vertigo Vitamin B12 deficiency Vitamin D deficiency Surgical History Surgical History History of arthroplasty of right knee History of left-sided carotid endarterectomy History of neck surgery History of shoulder surgery Hx of tonsillectomy Hx of total knee arthroplasty Right S/P cholecystectomy S/P medial meniscectomy of left knee (09/2021) Status post cervical spinal fusion Status post cholecystectomy Status post left breast biopsy Status post partial hysterectomy For cervical cancer. Status post right rotator cuff repair Status post tonsillectomy Status post tubal ligation Family History Family History (Rev
[2024-01-02 19:28] VITALS: BP 115/66; PULSE 76; RESP 16; TEMP 36.4; O2SAT 98
== END 2024-01-02 20:53 | disposition home or self-care (01) ==
PROVIDERS: Nurse Practitioner Family; Emergency Provider Emergency Medicine; PCP Family Medicine
DX: K57.32 Diverticulitis of large intestine without perforation or abscess without bleeding (principal); R11.0 Nausea; I25.10 Atherosclerotic heart disease of native coronary artery without angina pectoris; I69.911 Memory deficit following unspecified cerebrovascular disease; E03.9 Hypothyroidism, unspecified; E53.8 Deficiency of other specified B group vitamins; E55.9 Vitamin D deficiency, unspecified; E78.5 Hyperlipidemia, unspecified; E66.9 Obesity, unspecified; Z68.33 Body mass index [BMI] 33.0-33.9, adult; K21.9 Gastro-esophageal reflux disease without esophagitis; M79.7 Fibromyalgia; M19.90 Unspecified osteoarthritis, unspecified site; Z96.651 Presence of right artificial knee joint; Z86.010 Personal history of colon polyps; Z86.16 Personal history of COVID-19; Z85.41 Personal history of malignant neoplasm of cervix uteri; Z86.718 Personal history of other venous thrombosis and embolism; Z87.891 Personal history of nicotine dependence; Z90.49 Acquired absence of other specified parts of digestive tract; Z90.711 Acquired absence of uterus with remaining cervical stump; Z79.82 Long term (current) use of aspirin; Z79.01 Long term (current) use of anticoagulants
CPT/HCPCS: 36415; 74177; 80053; 81001; 83605; 83690; 85025; 96361; 96374; 99284; J2405; J7030; Q9967

== ENCOUNTER 2024-02-13 12:43 | Outpatient (CLI) | payer MEDICARE, MEDICAID, SELFPAY ==
[2024-02-13 13:35] LABS: Hematocrit 39.9 % (37.0-47.0); Hemoglobin 12.2 g/dL (12.0-15.0); Mean Corpuscular HGB Conc 30.6 g/dl (32-36); Mean Corpuscular Hemoglobin 26.9 pg (26-34); Mean Corpuscular Volume 87.9 fl (80-100); Mean Platelet Volume 9.7 fl (7.4-10.4); Platelet Count Result 397 k/mm3 (150-375); Red Blood Count 4.54 M/mm3 (4.2-5.4); Red Cell Distribution Width 14.3 % (11.5-14.5); White Blood Count 6.5 K/mm3 (4.5-10.0)
[2024-02-13 13:54] LABS: Alanine Aminotransferase 20 U/L (6-35); Albumin Level 4.4 g/dL (3.5-5.1); Alkaline Phosphatase 119 U/L (38-126); Anion Gap 10 mmol/L (4-12); Aspartate Amino Transferase 22 U/L (14-36); Bilirubin,Total 0.5 mg/dL (0.2-1.3); Blood Urea Nitrogen 8 mg/dL (7-17); Calcium 9.2 mg/dL (8.4-10.2); Carbon Dioxide 25 mmol/L (22-30); Chloride 105 mmol/L (98-107); Estimated Glomerular Filt Rate 56; Glucose 96 mg/dL (65-110); Lipase 63 U/L (23-300); Potassium 3.9 mmol/L (3.4-5.0); Sodium 140 mmol/L (137-145)
== END 2024-02-13 12:44 | disposition home or self-care (01) ==
LOC: ANHLAB 12:44
PROVIDERS: PCP Family Medicine; Visit Provider Nurse Practitioner Family
DX: K57.92 Diverticulitis of intestine, part unspecified, without perforation or abscess without bleeding (principal); R10.9 Unspecified abdominal pain
CPT/HCPCS: 36415; 80053; 83690; 85027

== ENCOUNTER 2024-02-14 09:12 | Outpatient (CLI) | payer MEDICARE, MEDICAID, SELFPAY ==
--- NOTE | ~2024-02-14 | CT_ITS ---
EXAMINATION: CT abdomen pelvis w con DATE: 02/14/2024 09:44 INDICATION: Unspecified abdominal pain. TECHNIQUE: Computed tomography (CT) of the abdomen and pelvis was performed with 100 mL Omnipaque 350 intravenous contrast. Automated exposure control and iterative reconstruction technique were employe d. The dose-length product was 753.66 mGy-cm. COMPARISON: CT abdomen and pelvis 01/02/2024, 03/25/22 FINDINGS: There is mild emphysema. No pleural effusion. The heart size is normal. No pericardial effu kourtney. There is a small sliding hiatal hernia. There are two 10 mm hyperenhancing liver masses, stable from 03/25/2022, likely hemangiomas and/or focal nodular hyperplasia. There are changes of cholecyste ctomy. The spleen, pancreas, adrenal glands, and left kidney are normal. There is a 6 mm cyst in righ t kidney. There is calcified atherosclerosis of the aorta and many of the other arteries. There are n o dilated loops of bowel. There are scattered diverticula in the colon. There is wall thickening of t he sigmoid colon with adjacent fat stranding, consistent with diverticulitis. There are changes of ap pendectomy. There are no pathologically enlarged lymph nodes. There is no free intraperitoneal fluid. There is mild thoracic and lumbar spondylosis. IMPRESSION: 1. Sigmoid diverticulitis with interval improvement. No perforation or abscess. Reviewed, dictated and finalized at location A.
== END 2024-02-14 09:13 | disposition home or self-care (01) ==
PROVIDERS: PCP Family Medicine; Visit Provider Nurse Practitioner Family
DX: K57.32 Diverticulitis of large intestine without perforation or abscess without bleeding (principal)
CPT/HCPCS: 74177; Q9967

== ENCOUNTER 2024-02-17 09:52 | Outpatient (CLI) | payer MEDICARE, MEDICAID, SELFPAY ==
--- NOTE | ~2024-02-17 | MMUS_ITS ---
EXAMINATION: MM diagnostic meron LT w carolann, US breast LT limited HISTORY: Follow-up left breast asymmetry TECHNIQUE: Additional 3-D tomosynthesis images of the left breast were performed and synthetic 2-D im ages were generated. CAD analysis was submitted and interpreted. High resolution Limited left breast ultrasound was performed. COMPARISON: Comparison to multiple prior studies sequentially, with oldest reviewed study dated 06/18. BREAST PARENCHYMAL COMPOSITION: Not dense: There are scattered areas of fibroglandular density. FINDINGS: MAMMOGRAPHIC FINDINGS: There are no suspicious masses, calcifications or architectural distortion in the left breast to sugg est malignancy. ULTRASOUND: Limited left breast ultrasound: Normal heterogeneous echotexture without focal solid or cystic mass. IMPRESSION: 1. No evidence for malignancy in the left breast. 2. Routine yearly screening mammogram and regular clinical breast examination are recommended. BI-RADS Category 1: Negative Reviewed, dictated and finalized at location B. IMPRESSION: 1. No evidence for malignancy in the left breast. 2. Routine yearly screening mammogram and regular clinical breast examination a re recommended. BI-RADS Category 1: Negative
== END 2024-02-17 09:53 | disposition home or self-care (01) ==
LOC: ANHIMG 09:54
PROVIDERS: PCP Family Medicine; Visit Provider Internal Medicine Hematology & Oncology
DX: R92.8 Other abnormal and inconclusive findings on diagnostic imaging of breast (principal)
CPT/HCPCS: 76642; 77061; 77065; G0279

== ENCOUNTER 2024-02-24 10:48 | Outpatient (CLI) | payer MEDICARE, MEDICAID, SELFPAY ==
[2024-02-24 11:27] LABS: Basophils Percent Auto 0.5 % (0.2-1.2); Eosinophils Absolute Auto 0.2 K/mm3 (0-0.3); Eosinophils Percent Auto 2.4 % (0-4.4); Hematocrit 37.6 % (37.0-47.0); Hemoglobin 11.7 g/dL (12.0-15.0); Immature Granulocyte Absolute 0.03 K/mm3 (0.00-0.031); Immature Granulocyte Percent A 0.5 % (0-0.5); Lymphocytes Absolute Auto 1.57 K/mm3 (0.9-3.2); Mean Corpuscular HGB Conc 31.1 g/dl (32-36); Mean Corpuscular Hemoglobin 27.2 pg (26-34); Mean Corpuscular Volume 87.4 fl (80-100); Mean Platelet Volume 9.5 fl (7.4-10.4); Monocytes Absolute Auto 0.5 K/mm3 (0.1-0.6); Monocytes Percent Auto 7.8 % (2.6-8.5); Neutrophils Absolute Auto 4.2 K/mm3 (1.3-6.7); Neutrophils Percent Auto 64.8 % (45.5-73.1); Platelet Count Result 365 k/mm3 (150-375); Red Cell Distribution Width 14.5 % (11.5-14.5); White Blood Count 6.5 K/mm3 (4.5-10.0)
[2024-02-24 11:28] LABS: Blood Urea Nitrogen 11 mg/dL (8-26); Carbon Dioxide 26 mmol/L (22-30); Chloride 103 mmol/L (98-109); Estimated Glomerular Filt Rate 50; Glucose 108 mg/dL (70-105); Ionized Calcium (POC) 1.23 mmol/L (1.11-1.31); Potassium 3.7 mmol/L (3.5-4.9); Sodium 142 mmol/L (138-146)
[2024-02-24 13:20] LABS: Iron 42 ug/dL (37-170)
[2024-02-24 13:28] LABS: Alanine Aminotransferase 30 U/L (6-35); Albumin Level 4.4 g/dL (3.5-5.1); Alkaline Phosphatase 98 U/L (38-126); Anion Gap 9 mmol/L (4-12); Aspartate Amino Transferase 28 U/L (14-36); Bilirubin,Total 0.4 mg/dL (0.2-1.3); Blood Urea Nitrogen 12 mg/dL (7-17); Calcium 9.2 mg/dL (8.4-10.2); Carbon Dioxide 24 mmol/L (22-30); Chloride 107 mmol/L (98-107); Estimated Glomerular Filt Rate 56; Glucose 106 mg/dL (65-110); Potassium 3.7 mmol/L (3.4-5.0); Sodium 140 mmol/L (137-145)
[2024-02-24 13:29] LABS: Percent Iron Saturation 11 % (20-50)
[2024-02-24 15:11] LABS: Folic Acid > 20.0 ng/mL (2.76->20)
== END 2024-02-24 10:49 | disposition home or self-care (01) ==
PROVIDERS: PCP Family Medicine; Visit Provider Internal Medicine Hematology & Oncology
DX: D69.59 Other secondary thrombocytopenia (principal); I10 Essential (primary) hypertension
CPT/HCPCS: 36415; 80047; 80053; 82607; 82728; 82746; 83540; 83550; 84443; 85025

== ENCOUNTER 2024-02-25 16:51 | Outpatient (CLI) | payer MEDICARE, MEDICAID, SELFPAY ==
--- NOTE | ~2024-02-25 | XR_ITS ---
EXAMINATION: XR chest 2V Exam Date/Time: 02/25/2024 17:15 CDT HISTORY: R05.9 - Cough, HX COPD Comparison: 01/24/2022; CT lung screening 08/22/2023. RESULT: Lines, tubes, and devices: ACDF hardware. Lungs and pleura: Clear. Cardiomediastinal silhouette: Stable. Other: No acute osseous or upper abdominal finding. IMPRESSION: No acute cardiopulmonary process. Reviewed, dictated and finalized at location K.
[2024-02-25 19:54] LABS: Vitamin D 25 Hydroxy 24.5 ng/mL
== END 2024-02-25 16:52 | disposition home or self-care (01) ==
PROVIDERS: PCP Family Medicine; Visit Provider Nurse Practitioner Family
DX: E03.9 Hypothyroidism, unspecified (principal); E55.9 Vitamin D deficiency, unspecified; R05.9 Cough, unspecified; R06.02 Shortness of breath
CPT/HCPCS: 36415; 71046; 82306; 84443

== ENCOUNTER 2024-04-06 16:36 | Outpatient (CLI) | payer MEDICARE, MEDICAID, SELFPAY ==
--- NOTE | ~2024-04-06 | CT_ITS ---
EXAMINATION: CT brain wo con DATE: 04/06/2024 16:53 INDICATION: S09.90XA - Unspecified injury of head, initial encounter . TECHNIQUE: Computed tomography (CT) of the head was performed without intravenous contrast. The mA wa s adjusted according to patient size. Iterative reconstruction technique was employed. The dose-lengt h product was 605.33 mGy-cm. COMPARISON: 02/17/2023. FINDINGS: No acute intracranial hemorrhage or extra-axial fluid collection. No hydrocephalus, mass, or herniation. No acute ischemic infarct. Unremarkable dural venous sinus attenuation. No acute osseous abnormality. The aerated spaces are clear. IMPRESSION: No acute intracranial process. Reviewed, dictated and finalized at location K.
== END 2024-04-06 16:37 | disposition home or self-care (01) ==
LOC: ANHIMG 16:37
PROVIDERS: PCP Family Medicine; Visit Provider Family Medicine
DX: S09.90XA Unspecified injury of head, initial encounter (principal); I63.9 Cerebral infarction, unspecified; X58.XXXA Exposure to other specified factors, initial encounter
CPT/HCPCS: 70450

== ENCOUNTER 2024-04-09 20:03 | Emergency (ER) | payer MEDICARE, MEDICAID, SELFPAY ==
--- NOTE | ~2024-04-09 | CT_ITS ---
EXAMINATION: CT abdomen pelvis w con DATE: 04/09/2024 22:48 INDICATION: abd pain, vomiting, chills TECHNIQUE: Computed tomography (CT) of the abdomen and pelvis was performed with 100 mL Omnipaque-350 intravenous contrast. Automated exposure control and iterative reconstruction technique were employe d. The dose-length product was 414.39 mGy-cm. COMPARISON: 02/14/2024; 03/25/2022. FINDINGS: Lower thorax: Unremarkable Liver: Unchanged peripherally hyperenhancing focus in the left liver lobe previously described as an consistent with a hemangioma. Stable ill-defined 6 mm hyperenhancing focus posteriorly in the right l obe near the dome, likely hemangioma. Biliary/Gallbladder: Gallbladder is absent. No bile duct dilation. Pancreas: Mild fatty atrophy Spleen: Normal. Adrenals:No mass. Kidneys: No hydronephrosis or obstructing stone. 9 mm indeterminate density right lower pole lesion. Subcentimeter left upper and right lower pole hypodensities, too small to characterize but most likel y represent cysts GI tract: Mild distal esophageal and gastric wall edema. Long segment wall edema involving the sigmoi d colon with surrounding pericolonic inflammatory change. No extraluminal gas. No definite abscess. N o small or large bowel dilation. Surgically absent appendix. Scattered colonic diverticuli. Mesentery/Peritoneum: No ascites, mass, or free air. Retroperitoneum: No mass. Atherosclerotic abdominal aortic and/or arterial calcifications. Pelvis: Partially distended urinary bladder. Absent uterus. Normal bilateral ovaries. Soft Tissues: Soft tissues and body wall unremarkable. Bones: No acute osseous finding. IMPRESSION: Mild esophagitis/gastritis. 9 mm indeterminate density right lower pole renal lesion, consider nonemergent but timely renal MRI w ithout and with contrast for further evaluation. Sigmoid wall edema and perisigmoid inflammatory changes, may represent diverticulitis or colitis. Reviewed, dictated and finalized at location K. IMPRESSION: Mild esophagitis/gastritis. 9 mm indeterminate density right lower pole renal lesion, consider nonemergent but timely renal MRI without and with contrast for further evaluation. Sigmoid wall edema and perisigmoid inflammatory changes, may represent divertic ulitis or colitis.
[2024-04-09 20:06] VITALS: BP 130/72; PULSE 94; RESP 20; TEMP 37.2; O2SAT 96
[2024-04-09 20:19] VITALS: O2SAT 97
[2024-04-09 21:05] LABS: Influenza A QL RT-PCR Negative (Negative); Influenza B QL RT-PCR Negative (Negative); SARS-CoV-2 RNA PCR Negative (Negative)
[2024-04-09 22:04] LABS: Basophils Percent Auto 0.2 % (0.2-1.2); Eosinophils Percent Auto 0.3 % (0-4.4); Hematocrit 39.2 % (37.0-47.0); Immature Granulocyte Absolute 0.04 K/mm3 (0.00-0.031); Immature Granulocyte Percent A 0.4 % (0-0.5); Lymphocytes Absolute Auto 0.84 K/mm3 (0.9-3.2); Lymphocytes Percent Auto 8.1 % (18.3-44.2); Mean Corpuscular HGB Conc 33.2 g/dl (32-36); Mean Corpuscular Hemoglobin 28.1 pg (26-34); Mean Corpuscular Volume 84.8 fl (80-100); Mean Platelet Volume 9.9 fl (7.4-10.4); Monocytes Absolute Auto 0.8 K/mm3 (0.1-0.6); Monocytes Percent Auto 7.8 % (2.6-8.5); Neutrophils Absolute Auto 8.6 K/mm3 (1.3-6.7); Neutrophils Percent Auto 83.2 % (45.5-73.1); Platelet Count Result 291 k/mm3 (150-375); Red Blood Count 4.62 M/mm3 (4.2-5.4); Red Cell Distribution Width 14.1 % (11.5-14.5); White Blood Count 10.3 K/mm3 (4.5-10.0)
[2024-04-09 22:14] LABS: Alanine Aminotransferase 22 U/L (6-35); Albumin Level 4.4 g/dL (3.5-5.1); Alkaline Phosphatase 119 U/L (38-126); Anion Gap 12 mmol/L (4-12); Aspartate Amino Transferase 23 U/L (14-36); Bilirubin,Total 0.9 mg/dL (0.2-1.3); Blood Urea Nitrogen 14 mg/dL (7-17); Calcium 8.9 mg/dL (8.4-10.2); Carbon Dioxide 23 mmol/L (22-30); Chloride 101 mmol/L (98-107); Estimated CRCL calculation 54 ml/min; Estimated Glomerular Filt Rate 56; Glucose 122 mg/dL (65-110); Sodium 136 mmol/L (137-145)
--- NOTE | 2024-04-09 22:22 | ED.ABDPAIN ---
HPI - Abdominal Pain General Chief Complaint: Upper Respiratory Infection Stated Complaint: doesnt feel good Time Seen by Provider: 04/09/24 20:43 Source: patient Mode of arrival: ambulatory Limitations: no limitations History of Present Illness HPI narrative: This is a 63-year-old female that presents to the emergency department for symptoms present over the last couple of days. Reports myalgias, chills, abdominal pain, vomiting, diarrhea. Reports history of diverticulitis. Denies fever, dysuria or hematuria. Related Data Home Medications Medication Instructions Recorded Confirmed rivaroxaban 20 mg tablet (Xarelto) 20 mg PO DAILY 07/29/19 03/26/24 folic acid 1 mg tablet 1 mg PO DAILY 08/04/19 03/26/24 aspirin 81 mg chewable tablet 81 mg PO DAILY 10/06/22 03/26/24 nystatin 100,000 unit/gram topical 1 applic topical BID PRN rash 11/05/23 03/26/24 cream ergocalciferol (vitamin D2) 1,250 1,250 mcg PO DAILY 03/24/24 03/26/24 mcg (50,000 unit) capsule ferrous sulfate 325 mg (65 mg 325 mg PO DAILY 03/24/24 03/26/24 iron) tablet (Feosol) lactobacillus combination no.9 4 4,000 mmu cells PO DAILY 03/24/24 03/26/24 billion cell capsule (Adult 50 Plus Probiotic) Allergies Allergy/AdvReac Type Severity Reaction Status Date / Time codeine Allergy Severe Anaphylaxis Verified 03/24/24 10:53 hydromorphone Allergy Severe Blister Verified 03/24/24 10:53 latex Allergy Severe Blister Verified 03/24/24 10:53 levofloxacin Allergy Severe BLISTERS Verified 03/24/24 10:53 ON BODY morphine Allergy Severe Hypotension Verified 03/24/24 10:53 oxycodone Allergy Severe Blister Verified 03/24/24 10:53 penicillin G Allergy Severe ANAPHYLACTI Verified 03/24/24 10:53 C Penicillins Allergy Severe Anaphylaxis Verified 03/24/24 10:53 shellfish derived Allergy Severe Swelling Verified 03/24/24 10:53 of Lip/Tongue/Throat vancomycin Allergy Severe Red Pablito, Verified 03/24/24 10:53 Patient unsure of reaction hydrocodone Allergy Intermediate Itching Verified 03/24/24 10:53 Review of Systems Review of Systems: CONSTITUTIONAL: Reports chills. Denies fever GASTROINTESTINAL: Reports abdominal pain, nausea, vomiting, and diarrhea. GENITOURINARY: Denies dysuria or hematuria. All systems reviewed & are unremarkable except as noted in HPI and below PMFSH Past Medical History Medical History Abdominal pain Adenomatous colon polyp Adult hypothyroidism BMI 34.0-34.9,adult Bradycardia Carotid artery disease Status post left carotid endarterectomy. 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 Diarrhea Diverticulosis With history of diverticulitis. 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 Tobacco abuse Tobacco dependence Vertigo Vitamin B12 deficiency Vitamin D deficiency Surgical History Surgical History History of arthroplasty of right knee History of left-sided carotid endarterectomy History of neck surgery History of shoulder surgery Hx of tonsillectomy Hx of total knee arthroplasty Right S/P cholecystectomy S/P medial meniscectomy of left knee (09/2021) Status post cervical spinal fusion Status post cholecyste
[2024-04-09] MEDS: SODIUM CHLORIDE 0.9% IV 1,000 ML 999 ML IV CONT (22:53)
[2024-04-09] MEDS: ONDANSETRON INJ 4 MG/2 ML VIAL IV PUSH (22:53)
--- NOTE | 2024-04-09 23:26 | PC.NURSE ---
patient states they are unable to urinate. educated patient to use call light with any urge to provide urine sample. IV fluids are infusing to assist with this
--- NOTE | 2024-04-09 23:30 | PC.NURSE ---
Report from MIKHAIL Crain. Pt encouraged to attempt urine sample.
--- NOTE | 2024-04-09 23:47 | PC.NURSE ---
care and report given to MIKHAIL Luis. all questions answered.
[2024-04-10 00:33] LABS: Appearance Urine Clear (Clear); Bilirubin Urine Negative (Negative); Blood Urine Negative (Negative); Color Urine Yellow (Yellow); Glucose Urine UA Negative (Negative); Ketones Urine Negative (Negative); Leukocyte Esterase Ur Negative LEU/UL (Negative); Nitrate Urine Negative (Negative); Protein Urine 1+ mg/dL (Negative); Specific Grav Ur > 1.045 (1.001-1.035); pH Urine 5.5 (5.0-9.0)
[2024-04-10 00:34] LABS: Add Urine Microscopic? NO
[2024-04-10 00:54] VITALS: BP 118/65; PULSE 81; RESP 17; O2SAT 96
== END 2024-04-10 00:50 | disposition home or self-care (01) ==
PROVIDERS: Student in an Organized Health Care Education/Training Program; Emergency Provider Physician Assistant; PCP Family Medicine
DX: K57.92 Diverticulitis of intestine, part unspecified, without perforation or abscess without bleeding (principal); N28.1 Cyst of kidney, acquired; E03.9 Hypothyroidism, unspecified; J44.9 Chronic obstructive pulmonary disease, unspecified; E78.5 Hyperlipidemia, unspecified; Z87.891 Personal history of nicotine dependence; Z20.822 Contact with and (suspected) exposure to COVID-19
CPT/HCPCS: 36415; 74177; 80053; 81003; 85025; 87636; 96361; 96374; 99284; J2405; J7030; Q9967

== ENCOUNTER 2024-04-18 08:43 | Outpatient (CLI) | payer MEDICARE, MEDICAID, SELFPAY ==
--- NOTE | ~2024-04-18 | MR_ITS ---
EXAMINATION: MR renal wo/w con DATE: 04/18/2024 09:56 INDICATION: Disorder of kidney and ureter, unspecified. Right kidney mass. TECHNIQUE: Magnetic resonance imaging (MRI) of the abdomen was performed without and with 17 mL Multi Keri intravenous contrast. COMPARISON: CT abdomen and pelvis 04/09/24 FINDINGS: There are cysts in the liver measuring up to 13 mm. The gallbladder is absent. The spleen, pancreas, adrenal glands, and left kidney are normal. There are cysts in right kidney measuring up to 5 mm. The re are no dilated loops of bowel. There are no pathologically enlarged lymph nodes. There is no free intraperitoneal fluid. IMPRESSION: 1. Benign cysts in right kidney. Reviewed, dictated and finalized at location A.
[2024-04-18 11:31] LABS: Thyroid Stimulating Hormone 0.884 uIU/mL (0.465-4.680)
[2024-04-18 11:32] LABS: Free T4 Free Thyroxine 1.41 ng/mL (0.78-2.19)
== END 2024-04-18 08:44 | disposition home or self-care (01) ==
PROVIDERS: PCP Family Medicine; Visit Provider Family Medicine
DX: R27.0 Ataxia, unspecified (principal); N28.1 Cyst of kidney, acquired
CPT/HCPCS: 36415; 74183; 84439; 84443; A9577

== ENCOUNTER 2024-06-03 11:08 | Outpatient (CLI) | payer MEDICARE, MEDICAID, SELFPAY ==
[2024-06-03 11:32] LABS: Hematocrit 42.2 % (37.0-47.0); Hemoglobin 13.5 g/dL (12.0-15.0); Mean Corpuscular Hemoglobin 27.9 pg (26-34); Mean Corpuscular Volume 87.2 fl (80-100); Mean Platelet Volume 9.6 fl (7.4-10.4); Platelet Count Result 280 k/mm3 (150-375); Red Blood Count 4.84 M/mm3 (4.2-5.4); Red Cell Distribution Width 13.2 % (11.5-14.5); White Blood Count 5.7 K/mm3 (4.5-10.0)
[2024-06-03 12:22] LABS: Iron 54 ug/dL (37-170)
[2024-06-03 12:33] LABS: Percent Iron Saturation 14 % (20-50)
[2024-06-03 13:33] LABS: Folic Acid > 20.0 ng/mL (2.76->20)
== END 2024-06-03 11:09 | disposition home or self-care (01) ==
LOC: ANHLAB 11:10
PROVIDERS: PCP Family Medicine; Visit Provider Internal Medicine Hematology & Oncology
DX: D64.9 Anemia, unspecified (principal)
CPT/HCPCS: 36415; 82607; 82728; 82746; 83540; 83550; 85027

== ENCOUNTER 2024-06-18 19:32 | Emergency (ER) | payer MEDICARE, MEDICAID, SELFPAY ==
--- NOTE | 2024-06-18 19:36 | PC.NURSE ---
Allergy list incomplete. Pt needs to add a prescription medication that caused current reaction, but is unable to recall the name.
[2024-06-18 19:38] VITALS: BP 142/68; PULSE 90; RESP 17; TEMP 36.4; O2SAT 98
--- NOTE | 2024-06-18 23:57 | ED.ALLEREA ---
HPI - Allergic Reaction General Chief complaint: Allergic Reaction Stated complaint: allergic reaction, L. eye swelling Time Seen by Provider: 06/18/24 23:03 Source: patient Mode of arrival: ambulatory Limitations: no limitations History of Present Illness HPI narrative: This is 64-year-old female who presents to the ED for chief complaint left eye irritation and swelling over the past week and half. Reports that she had cataract surgery bilaterally over the past couple of weeks. States that since starting new artificial tears drops she has had increasing irritation and burning to the left eye. Her eye doctor was concern for allergic reaction and switched over to defer drops. Patient is here because she wants to make sure she does not have cellulitis or infection. Denies fevers, chills, nausea, vomiting or any immunocompromised condition. Related Data Home Medications Medication Instructions Recorded Confirmed rivaroxaban 20 mg tablet (Xarelto) 20 mg PO DAILY 07/29/19 03/26/24 folic acid 1 mg tablet 1 mg PO DAILY 08/04/19 03/26/24 aspirin 81 mg chewable tablet 81 mg PO DAILY 10/06/22 03/26/24 ergocalciferol (vitamin D2) 1,250 1,250 mcg PO DAILY 03/24/24 03/26/24 mcg (50,000 unit) capsule ferrous sulfate 325 mg (65 mg 325 mg PO DAILY 03/24/24 03/26/24 iron) tablet (Feosol) lactobacillus combination no.9 4 4,000 mmu cells PO DAILY 03/24/24 03/26/24 billion cell capsule (Adult 50 Plus Probiotic) Allergies Allergy/AdvReac Type Severity Reaction Status Date / Time codeine Allergy Severe Anaphylaxis Verified 04/20/24 10:36 hydromorphone Allergy Severe Blister Verified 04/20/24 10:36 latex Allergy Severe Blister Verified 04/20/24 10:36 levofloxacin Allergy Severe BLISTERS Verified 04/20/24 10:36 ON BODY morphine Allergy Severe Hypotension Verified 04/20/24 10:36 oxycodone Allergy Severe Blister Verified 04/20/24 10:36 penicillin G Allergy Severe ANAPHYLACTI Verified 04/20/24 10:36 C Penicillins Allergy Severe Anaphylaxis Verified 04/20/24 10:36 shellfish derived Allergy Severe Swelling Verified 04/20/24 10:36 of Lip/Tongue/Throat vancomycin Allergy Severe Red Pablito, Verified 04/20/24 10:36 Patient unsure of reaction hydrocodone Allergy Intermediate Itching Verified 04/20/24 10:36 Review of Systems Review of Systems: All systems as dictated in [facility] Past Medical History Medical History Abdominal pain Adenomatous colon polyp Adult hypothyroidism BMI 34.0-34.9,adult Bradycardia Carotid artery disease Status post left carotid endarterectomy. 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 Diarrhea Diverticulosis With history of diverticulitis. Dizziness Dysphagia Fibromyalgia GERD (gastroesophageal reflux disease) History of cervical cancer History of colon polyps History of colon polyps Hx of deep venous thrombosis Hyperglycemia Hyperlipidemia Hypersomnia Hypothyroidism Low hemoglobin Mouth pain Nicotine abuse Obesity On detention drug therapy Osteoarthritis Other and unspecified hyperlipidemia Otitis media Palpitations Personal history of nicotine dependence Positive colorectal cancer screening using Cologuard test Recurrent falls Symptomatic PVCs On metoprolol 50 milligrams daily. Tobacco abuse Tobacco dependence Vertigo Vitamin B12 deficiency Vitamin D deficiency Surgical History Surgical History History of arthroplasty of right knee History of left-sided carotid endarterectomy History of neck surgery History of shoulder surgery Hx of tonsillectomy Hx of total knee arthroplasty Right S/P cholecystectomy S/P medial meniscectomy of left knee (09/2021) Status post cerv
[2024-06-19] MEDS: predniSONE 20 MG TABLET 60 MG PO (00:01)
[2024-06-19 00:03] VITALS: BP 147/74; PULSE 78; RESP 20; TEMP 36.3; O2SAT 97
== END 2024-06-19 00:09 | disposition home or self-care (01) ==
PROVIDERS: Emergency Provider Physician Assistant; PCP Family Medicine
DX: H57.89 Other specified disorders of eye and adnexa (principal); T49.5X5A Adverse effect of ophthalmological drugs and preparations, initial encounter; Z98.42 Cataract extraction status, left eye; Z98.41 Cataract extraction status, right eye; I25.10 Atherosclerotic heart disease of native coronary artery without angina pectoris; I69.911 Memory deficit following unspecified cerebrovascular disease; E03.9 Hypothyroidism, unspecified; E78.5 Hyperlipidemia, unspecified; E53.8 Deficiency of other specified B group vitamins; E55.9 Vitamin D deficiency, unspecified; E66.9 Obesity, unspecified; Z68.32 Body mass index [BMI] 32.0-32.9, adult; J44.9 Chronic obstructive pulmonary disease, unspecified; K21.9 Gastro-esophageal reflux disease without esophagitis; M79.7 Fibromyalgia; M19.90 Unspecified osteoarthritis, unspecified site; F17.210 Nicotine dependence, cigarettes, uncomplicated; Z96.651 Presence of right artificial knee joint; Z86.16 Personal history of COVID-19; Z85.41 Personal history of malignant neoplasm of cervix uteri; Z86.718 Personal history of other venous thrombosis and embolism; Z86.0101 Personal history of adenomatous and serrated colon polyps; Z90.49 Acquired absence of other specified parts of digestive tract; Z90.711 Acquired absence of uterus with remaining cervical stump
CPT/HCPCS: 99283; J7512

== ENCOUNTER 2024-06-30 10:22 | Emergency (ER) | payer MEDICARE, MEDICAID, SELFPAY ==
[2024-06-30] VITALS (11 sets, daily range): BP systolic 102–144; BP diastolic 39–83; PULSE 46–95; RESP 16–24; TEMP 36.3–37.1; O2SAT 95–100
--- NOTE | ~2024-06-30 | CT_ITS ---
Clinical Indication: Diverticulitis, emesis CT Scan of the Chest, Abdomen, and Pelvis with Contrast: Technique: Contiguous sections were acquired throughout the chest, abdomen, and pelvis after intraven ous administration of 100 cc of Omnipaque 350. Dose reduction technique was used on this scan by vikas howelling automated exposure control and iterative reconstruction technique. The dose-length product (DL P) was 858.75 mGy-cm. Comparison: 04/09/2024 Findings: There is no evidence of any significant mediastinal, hilar or axillary lymphadenopathy. The mediastin al soft tissues appear normal. There is no evidence of pleural or pericardial effusion. The lungs are clear. No pulmonary nodules or infiltrates are noted. Probable small hemangioma at the superior aspect of liver. The spleen, pancreas, adrenals and kidneys are within normal limits. Cholecystectomy clips are present. There are atherosclerotic calcification s of the aorta. . No lymphadenopathy. There is wall thickening and pericolonic inflammatory change at the descending colon and proximal sig moid colon. No bowel obstruction. No abscess or free air. Urinary bladder is unremarkable. No pelvic mass seen. No ascites. Impression: Wall thickening and pericolonic inflammatory change of the descending colon and proximal sigmoid colo n, most compatible with infectious/inflammatory colitis. No other significant abnormality seen. Reviewed, dictated and finalized at location . Impression: Wall thickening and pericolonic inflammatory change of the descending colon and proximal sigmoid colon, most compatible with infectious/inflammatory colitis. No other significant abnormality seen.
[2024-06-30 10:48] LABS: Basophils Percent Auto 0.4 % (0.2-1.2); Eosinophils Absolute Auto 0.2 K/mm3 (0-0.3); Eosinophils Percent Auto 2.2 % (0-4.4); Immature Granulocyte Absolute 0.04 K/mm3 (0.00-0.031); Immature Granulocyte Percent A 0.4 % (0-0.5); Lymphocytes Absolute Auto 1.46 K/mm3 (0.9-3.2); Lymphocytes Percent Auto 14.7 % (18.3-44.2); Mean Corpuscular HGB Conc 32.6 g/dl (32-36); Mean Corpuscular Hemoglobin 28.1 pg (26-34); Mean Corpuscular Volume 86.3 fl (80-100); Mean Platelet Volume 10.3 fl (7.4-10.4); Monocytes Absolute Auto 0.7 K/mm3 (0.1-0.6); Monocytes Percent Auto 6.8 % (2.6-8.5); Neutrophils Absolute Auto 7.5 K/mm3 (1.3-6.7); Neutrophils Percent Auto 75.5 % (45.5-73.1); Platelet Count Result 405 k/mm3 (150-375); Red Blood Count 5.33 M/mm3 (4.2-5.4); Red Cell Distribution Width 13.3 % (11.5-14.5); White Blood Count 9.9 K/mm3 (4.5-10.0)
--- NOTE | 2024-06-30 11:58 | ED.ABDPAIN ---
HPI - Abdominal Pain General Chief Complaint: Abdominal Pain Stated Complaint: abd/back pain Time Seen by Provider: 06/30/24 11:33 History of Present Illness HPI narrative: Patient is a 64-year-old female who presents to the ER with a 2 day history of abdominal cramping/pain and back pain. She reports she has a history of diverticulitis and this pain feels similar. Patient reports she has not had bowel movement Saturday and has taken multiple doses of MiraLax and Dulcolax since then. She endorses multiple episodes of vomiting. Patient reports her severe abdominal pain started on Saturday evening but she has not had anything by mouth since Saturday. She reports she has a history of tachycardia, bradycardia, AFib, and COPD. Patient denies any current chest pain, shortness of breath, or other signs/symptoms of illness. Related Data Home Medications Medication Instructions Recorded Confirmed rivaroxaban 20 mg tablet (Xarelto) 20 mg PO DAILY 07/29/19 06/26/24 folic acid 1 mg tablet 1 mg PO DAILY 08/04/19 06/26/24 aspirin 81 mg chewable tablet 81 mg PO DAILY 10/06/22 06/26/24 ergocalciferol (vitamin D2) 1,250 1,250 mcg PO DAILY 03/24/24 06/26/24 mcg (50,000 unit) capsule ferrous sulfate 325 mg (65 mg 325 mg PO DAILY 03/24/24 06/26/24 iron) tablet (Feosol) lactobacillus combination no.9 4 4,000 mmu cells PO DAILY 03/24/24 06/26/24 billion cell capsule (Adult 50 Plus Probiotic) Allergies Allergy/AdvReac Type Severity Reaction Status Date / Time codeine Allergy Severe Anaphylaxis Verified 06/30/24 10:26 hydromorphone Allergy Severe Blister Verified 06/30/24 10:26 latex Allergy Severe Blister Verified 06/30/24 10:26 levofloxacin Allergy Severe BLISTERS Verified 06/30/24 10:26 ON BODY morphine Allergy Severe Hypotension Verified 06/30/24 10:26 oxycodone Allergy Severe Blister Verified 06/30/24 10:26 penicillin G Allergy Severe ANAPHYLACTI Verified 06/30/24 10:26 C Penicillins Allergy Severe Anaphylaxis Verified 06/30/24 10:26 shellfish derived Allergy Severe Swelling Verified 06/30/24 10:26 of Lip/Tongue/Throat vancomycin Allergy Severe Red Pablito, Verified 06/30/24 10:26 Patient unsure of reaction hydrocodone Allergy Intermediate Itching Verified 06/30/24 10:26 dexamethasone [From Maxitrol] Allergy Swelling Verified 06/30/24 10:40 of the Eye neomycin [From Maxitrol] Allergy Swelling Verified 06/30/24 10:40 of the Eye polymyxin B [From Maxitrol] Allergy Swelling Verified 06/30/24 10:40 of the Eye Review of Systems Review of Systems: All systems reviewed & are unremarkable except as noted in HPI and below PMFSH Past Medical History Medical History Abdominal pain Adenomatous colon polyp Adult hypothyroidism BMI 34.0-34.9,adult Bradycardia Carotid artery disease Status post left carotid endarterectomy. Colon cancer screening Colon, diverticulosis COPD (chronic obstructive pulmonary disease) COVID-19 (01/2022) Current use of meterman anticoagulation CVA (cerebral vascular accident) With short-term memory loss. Diarrhea Diverticulosis With history of diverticulitis. Dizziness Dysphagia Fibromyalgia GERD (gastroesophageal reflux disease) History of cervical cancer History of colon polyps History of colon polyps Hx of deep venous thrombosis Hyperglycemia Hyperlipidemia Hypersomnia Hypothyroidism Low hemoglobin Mouth pain Nicotine abuse Obesity On meterman drug therapy Osteoarthritis Other and unspecified hyperlipidemia Otitis media Palpitations Personal history of nicotine dependence Positive colorectal cancer screening using Cologuard test Recurrent falls Symptomatic PVCs On metoprolol 50 milligrams daily. Tobacco abuse Tobacco dependence Vertigo Vitamin B12 deficiency Vitamin D deficiency Surgical History Surgical History
--- NOTE | 2024-06-30 12:08 | ECG_ITS ---
Test Date: 2024-06-30 12:36:47 Measurements Intervals [place] Rate: 61 P: 67 CT: 183 QRS: 14 QRSD: 90 T: 75 QT: 406 QTc: 409 Interpretive Statements SINUS RHYTHM LOW QRS VOLTAGE IN PRECORDIAL LEADS [QRS DEFLECTION < 1.0 mV IN CHEST LEADS] POSSIBLE RIGHT VENTRICULAR CONDUCTION DELAY [RSR (QR) IN V1/V2] POSSIBLE ANTERIOR MYOCARDIAL INFARCTION , OF INDETERMINATE AGE [30 ms Q WAVE IN V3/V4, OR R < 0.2 mV IN V4] No previous ECG available for comparison Electronically Signed On 06-30-2024 12:41:59 CDT by Carol Ann Dos Santos M.D.
[2024-06-30 12:15] LABS: Add Urine Microscopic? YES; Appearance Urine Cloudy (Clear); Bacteria Urine None Seen /hpf; Bilirubin Urine 1+ (Negative); Blood Urine Negative (Negative); Color Urine Dark Yellow (Yellow); Glucose Urine UA Negative (Negative); Ketones Urine Trace mg/dL (Negative); Leukocyte Esterase Ur 1+ LEU/UL (Negative); Mucus Urine Present /lpf; Nitrate Urine Negative (Negative); Non Pathogenic Casts 0-2; Protein Urine Trace mg/dL (Negative); RBC Urine 0-2 /hpf (0-2); Specific Grav Ur 1.025 (1.001-1.035); Squamous Epithelial Cell Urine Few /hpf (Few); WBC Urine 0-5 /hpf (0-3)
[2024-06-30] MEDS: SODIUM CHLORIDE 0.9% IV 1,000 ML 999 ML IV CONT (12:34)
[2024-06-30] MEDS: fentaNYL CITRATE INJ (*CRX) 100 MCG/2 ML VIAL 50 MCG IV PUSH ×2 (12:34→15:21)
[2024-06-30] MEDS: KETOROLAC 30 MG/ML VIAL (*BKC) IV PUSH (12:35)
[2024-06-30] MEDS: FAMOTIDINE 20 MG/2 ML VIAL IV PUSH (12:35)
[2024-06-30 12:43] LABS: Alanine Aminotransferase 18 U/L (6-35); Albumin Level 3.7 g/dL (3.5-5.1); Alkaline Phosphatase 99 U/L (38-126); Anion Gap 6 mmol/L (4-12); Aspartate Amino Transferase 30 U/L (14-36); Bilirubin,Total 0.9 mg/dL (0.2-1.3); Blood Urea Nitrogen 10 mg/dL (7-17); Calcium 8.9 mg/dL (8.4-10.2); Carbon Dioxide 27 mmol/L (22-30); Chloride 104 mmol/L (98-107); Estimated CRCL calculation 54 ml/min; Estimated Glomerular Filt Rate 56; Glucose 92 mg/dL (65-110); Lipase 43 U/L (23-300); Potassium 3.7 mmol/L (3.4-5.0); Sodium 137 mmol/L (137-145)
[2024-06-30 13:16] LABS: Lactic Acid Reflex 1.1 mmol/L (0.7-2.0)
[2024-06-30 13:19] LABS: INR 1.1; Partial Thromboplastin Time 23.4 Seconds (22.3-36.8); Prothrombin Time 14.9 Seconds (11.1-14.7)
[2024-06-30 13:28] LABS: Troponin I 0.013 ng/mL (0.000-0.034)
[2024-06-30] MEDS: BELLADONNA ALK/PHENOB ELIX 10 ML, MAG HYDROX/ALUMINUM HYD/SIMETH 30 ML, LIDOCAINE HCL 2... PO (15:19)
[2024-06-30] MEDS: diphenhydrAMINE HCl INJ 50 MG/ML VIAL 25 MG IV PUSH (15:21)
[2024-06-30] MEDS: methylPREDNISolone SOD SUCC 125 MG VIAL IV PUSH (15:22)
== END 2024-06-30 16:38 | disposition home or self-care (01) ==
PROVIDERS: Family Medicine; Emergency Provider Registered Nurse; PCP Family Medicine
DX: K52.9 Noninfective gastroenteritis and colitis, unspecified (principal); I48.91 Unspecified atrial fibrillation; I25.10 Atherosclerotic heart disease of native coronary artery without angina pectoris; I69.911 Memory deficit following unspecified cerebrovascular disease; J44.9 Chronic obstructive pulmonary disease, unspecified; E03.9 Hypothyroidism, unspecified; E66.9 Obesity, unspecified; Z68.32 Body mass index [BMI] 32.0-32.9, adult; E78.5 Hyperlipidemia, unspecified; E53.8 Deficiency of other specified B group vitamins; E55.9 Vitamin D deficiency, unspecified; K21.9 Gastro-esophageal reflux disease without esophagitis; M79.7 Fibromyalgia; M19.90 Unspecified osteoarthritis, unspecified site; Z96.651 Presence of right artificial knee joint; Z86.16 Personal history of COVID-19; Z85.41 Personal history of malignant neoplasm of cervix uteri; Z86.0101 Personal history of adenomatous and serrated colon polyps; Z87.891 Personal history of nicotine dependence; Z86.718 Personal history of other venous thrombosis and embolism; Z90.49 Acquired absence of other specified parts of digestive tract; Z98.1 Arthrodesis status; Z90.711 Acquired absence of uterus with remaining cervical stump; Z79.82 Long term (current) use of aspirin; Z79.01 Long term (current) use of anticoagulants; Z79.899 Other long term (current) drug therapy
CPT/HCPCS: 36415; 71260; 74177; 80053; 81001; 83605; 83690; 84484; 85025; 85610; 85730; 87040; 87086; 93005; 96361; 96374; 96375; 96376; 99284; A9270; J1200; J1885; J2919; J3010; J7030; Q9967

== ENCOUNTER 2024-08-10 15:39 | Outpatient (CLI) | payer MEDICARE, MEDICAID, SELFPAY ==
[2024-08-12 14:14] LABS: Immunoglobulin E 28 kU/L (<OR=114)
[2024-08-12 14:24] LABS: Cat Dander IgE <0.10 kU/L; Cat Dander IgE Class 0; Dog Dander IgE <0.10 kU/L; Mouse Urine Proteins IgE <0.10 kU/L; Mouse Urine Proteins IgE Class 0
[2024-08-12 14:28] LABS: Alternaria alternata IgE <0.10 kU/L; Alternaria alternata IgE Class 0; Aspergillus fumigatus IgE <0.10 kU/L; Bermuda Grass (G2) IgE <0.10 kU/L; Bermuda Grass (G2) IgE Class 0; Cladosporium herbarum IgE <0.10 kU/L; Cladosporium herbarum IgE Clas 0; Cockroach IgE <0.10 kU/L; Cockroach IgE Clas 0; Common Ragweed IgE Class 0; Cottonwood IgE <0.10 kU/L; Dermatophagoides Farinae Class 0; Dermatophagoides Pterony Class 0; Dermatophagoides Pteronyssinus <0.10 kU/L; Elm (T8) IgE <0.10 kU/L; Elm (T8) IgE Class 0; Hickory/Pecan IgE <0.10 kU/L; Hickory/Pecan IgE Class 0; Maple Box Elder IgE Class 0; Mountain Cedar IgE <0.10 kU/L; Mountain Cedar IgE Class 0; Oak IgE <0.10 kU/L; Peniciliium notatum class 0; Penicillium notatum (M1) IgE <0.10 kU/L; Rough Marsh <0.10 kU/L; Rough Marsh Elder Class 0; Rough Pigweed (W14) IgE <0.10 kU/L; Rough Pigweed (W14) IgE Class 0; Russian Thistle <0.10 kU/L; Sycamore IgE <0.10 kU/L; Sycamore IgE Class 0; Timothy Grass IgE <0.10 kU/L; Timothy Grass IgE Class 0; Walnut Tree IgE <0.10 kU/L; Walnut Tree IgE Class 0; White Ash IgE Class 0; White Mulberry IgE <0.10 kU/L; White Mulberry IgE Class 0
== END 2024-08-10 15:40 | disposition home or self-care (01) ==
PROVIDERS: PCP Family Medicine
DX: J34.3 Hypertrophy of nasal turbinates (principal); R22.0 Localized swelling, mass and lump, head; L50.8 Other urticaria
CPT/HCPCS: 36415; 82785; 86003; 86160

== ENCOUNTER 2024-08-13 21:35 | Emergency (ER) | payer MEDICARE, MEDICAID, SELFPAY ==
--- NOTE | ~2024-08-13 | CT_ITS ---
EXAMINATION: CT abdomen pelvis w con DATE: 08/13/2024 23:09 INDICATION: Abdominal pain TECHNIQUE: Computed tomography (CT) of the abdomen and pelvis was performed with 100 CC Omnipaque 350 intravenous contrast. Automated exposure control and iterative reconstruction technique were employe d. Exam dose: 778.04 mGy-cm total exam DLP. COMPARISON: 06/30/2024 CT chest abdomen pelvis FINDINGS: The lung bases are clear. Normal heart size. No pericardial or pleural effusion. Small sliding hiatal hernia. Status post cholecystectomy. No bile duct or pancreatic duct or bile duct dilatation. The liver, spleen, pancreas, and adrenal glands are unremarkable. 8 mm probable cyst of the posterior mid right kidney. The kidneys are otherwise unremarkable. No urin мария tract calculus or hydroureteronephrosis. The urinary bladder is unremarkable. Status post hysterectomy. There is extensive atherosclerotic calcification but normal caliber of the abdominal aorta. No intrap eritoneal or retroperitoneal or pelvic mass lesion or adenopathy or ascites. 4.2 x 9 mm appendicolith of the distal aspect of the appendix, unchanged since 06/30/2024. There is thickening of the wall of the sigmoid colon and mild associated pericolic soft tissue thicke vu suggesting mild sigmoid Infectious or inflammatory colitis. No bowel obstruction or intraperitoneal free air. Very small fat-containing umbilical hernia. IMPRESSION: Infectious or inflammatory sigmoid colitis Chronic appendicolith Small sliding hiatal hernia Status post cholecystectomy Status post hysterectomy Small right renal probable cyst Reviewed, dictated and finalized at [facility]. Reviewed, dictated and finalized at location [facility]. BUTCHER
[2024-08-13 21:46] VITALS: BP 135/70; PULSE 85; RESP 24; TEMP 36.5; O2SAT 97
[2024-08-13 22:13] VITALS: BP 135/68; PULSE 79; RESP 16; TEMP 36.7; O2SAT 96
[2024-08-13 22:19] LABS: Basophils Percent Auto 0.4 % (0.2-1.2); Eosinophils Absolute Auto 0.2 K/mm3 (0-0.3); Eosinophils Percent Auto 2.6 % (0-4.4); Hematocrit 36.6 % (37.0-47.0); Immature Granulocyte Absolute 0.01 K/mm3 (0.00-0.031); Immature Granulocyte Percent A 0.1 % (0-0.5); Lymphocytes Absolute Auto 2.02 K/mm3 (0.9-3.2); Lymphocytes Percent Auto 25.4 % (18.3-44.2); Mean Corpuscular HGB Conc 32.8 g/dl (32-36); Mean Corpuscular Volume 85.5 fl (80-100); Mean Platelet Volume 9.8 fl (7.4-10.4); Monocytes Absolute Auto 0.6 K/mm3 (0.1-0.6); Monocytes Percent Auto 7.6 % (2.6-8.5); Neutrophils Absolute Auto 5.1 K/mm3 (1.3-6.7); Neutrophils Percent Auto 63.9 % (45.5-73.1); Platelet Count Result 305 k/mm3 (150-375); Red Blood Count 4.28 M/mm3 (4.2-5.4); Red Cell Distribution Width 13.7 % (11.5-14.5); White Blood Count 7.9 K/mm3 (4.5-10.0)
[2024-08-13] MEDS: ONDANSETRON INJ 4 MG/2 ML VIAL IV PUSH (22:26)
[2024-08-13] MEDS: SODIUM CHLORIDE 0.9% IV 1,000 ML 999 ML IV CONT (22:26)
--- NOTE | 2024-08-13 22:26 | ED.ABDPAIN ---
HPI - Abdominal Pain General Chief Complaint: Abdominal Pain Stated Complaint: abdominal pain, throwing up, back pain Time Seen by Provider: 08/13/24 22:04 History of Present Illness HPI narrative: patient is a 61-year-old female who presents emergency department with chief complaint of abdominal pain. Patient reports that history of gastritis and colitis patient reports that she ate this evening and that reports that she has had nausea and vomiting patient reports that she has not had a bowel movement today. Patient reports that appendectomy and cholecystectomy Related Data Home Medications Medication Instructions Recorded Confirmed rivaroxaban 20 mg tablet (Xarelto) 20 mg PO DAILY 07/29/19 07/13/24 folic acid 1 mg tablet 1 mg PO DAILY 08/04/19 07/13/24 aspirin 81 mg chewable tablet 81 mg PO DAILY 10/06/22 07/13/24 ergocalciferol (vitamin D2) 1,250 1,250 mcg PO DAILY 03/24/24 07/13/24 mcg (50,000 unit) capsule ferrous sulfate 325 mg (65 mg 325 mg PO DAILY 03/24/24 07/13/24 iron) tablet (Feosol) lactobacillus combination no.9 4 4,000 mmu cells PO DAILY 03/24/24 07/13/24 billion cell capsule (Adult 50 Plus Probiotic) Allergies Allergy/AdvReac Type Severity Reaction Status Date / Time codeine Allergy Severe Anaphylaxis Verified 08/13/24 21:37 hydromorphone Allergy Severe Blister Verified 08/13/24 21:37 latex Allergy Severe Blister Verified 08/13/24 21:37 levofloxacin Allergy Severe BLISTERS Verified 08/13/24 21:37 ON BODY morphine Allergy Severe Hypotension Verified 08/13/24 21:37 oxycodone Allergy Severe Blister Verified 08/13/24 21:37 penicillin G Allergy Severe ANAPHYLACTI Verified 08/13/24 21:37 C Penicillins Allergy Severe Anaphylaxis Verified 08/13/24 21:37 shellfish derived Allergy Severe Swelling Verified 08/13/24 21:37 of Lip/Tongue/Throat vancomycin Allergy Severe Red Pablito, Verified 08/13/24 21:37 Patient unsure of reaction hydrocodone Allergy Intermediate Itching Verified 08/13/24 21:37 dexamethasone [From Maxitrol] Allergy Swelling Verified 08/13/24 21:37 of the Eye neomycin [From Maxitrol] Allergy Swelling Verified 08/13/24 21:37 of the Eye polymyxin B [From Maxitrol] Allergy Swelling Verified 08/13/24 21:37 of the Eye Review of Systems Review of Systems: A 10 system review of systems was completed on the patient and is negative except for what is stated in the HPI. Nursing and ancillary documentation was reviewed. [facility], [facility] Past Medical History Medical History Abdominal pain Adenomatous colon polyp Adult hypothyroidism BMI 34.0-34.9,adult Bradycardia Carotid artery disease Status post left carotid endarterectomy. Colon cancer screening Colon, diverticulosis COPD (chronic obstructive pulmonary disease) COVID-19 (01/2022) Current use of long-term anticoagulation CVA (cerebral vascular accident) With short-term memory loss. Diarrhea Diverticulosis With history of diverticulitis. Dizziness Dysphagia Fibromyalgia GERD (gastroesophageal reflux disease) History of cervical cancer History of colon polyps History of colon polyps History of diverticulitis of colon Hx of deep venous thrombosis Hyperglycemia Hyperlipidemia Hypersomnia Hypothyroidism Low hemoglobin Lower abdominal pain Mouth pain Nicotine abuse Obesity On long-term drug therapy Osteoarthritis Other and unspecified hyperlipidemia Otitis media Palpitations Personal history of nicotine dependence Positive colorectal cancer screening using Cologuard test Recurrent falls Symptomatic PVCs On metoprolol 50 milligrams daily. Tobacco abuse Tobacco dependence Vertigo Vitamin B12 deficiency Vitamin D deficiency Surgical History Surgical History History of arthroplasty of right knee History of left-sided carotid endarterectomy History of neck surgery History of shoulder surgery Hx of tonsillectomy Hx of total knee arthroplasty Right S/P cholecystectomy S/P medial meniscectomy of left knee (09/2021) Status post cervical spinal fusion Status post cholecystectomy Status post left breast biopsy Status post partial hysterectomy For cervical cancer. Status post right rotator cuff repair Status post tonsillectomy Status post tubal ligation Family History Family History Mother Depression Family history of diabetes mellitus in first degree relative Diabetes mellitus Father Family history of diabetes mellitus in first degree relative Acute myocardial infarction Diabetes mellitus Sibling Hepatitis Pulmonary embolism Sibling No problems noted. Other Family history of allergic disorder Family history of cardiovascular disease Family history of malignant neoplasm Hypertension Social History Social History Social History: The patient is . She lives with her son in [place]. She designates her sons, Laith Howard and Kemal Islas, as her surrogate decision makers and she wishes to be a full code. She has smoked at least 1 pack of cigarettes per day for almost 40 years. She denies alcohol and drug abuse. Smoking packs per day: 1 Smoking cigarettes per day: 20.0 Years smoked: 40 Smoking pack-years: 40.00 Smoking status: Former smoker Tobacco type: cigarettes Second hand tobacco smoke exposure: Yes Smoking end date: 07/17/23 Additional smoking assessment comments: CUTTING DOWN TRYING TO QUIT MOST DAYS LESS THAN 0.5PK, Alcohol intake: current Substance use: never Substance use type: does not use Do You Feel Safe in your Home?: Yes Lack of Transportation: No Lack of Food: Never True Current Housing: I Have Housing Concerned About Future Housing: No Difficulty Paying Gas/Electric Bills: No Difficulty Paying for Meds: No Currently Unemployed: No Education: High School Diploma/GED Difficulty w/ Childcare or Family Care: No Living arrangements: with family Occupation/Education: retired 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 HEAD: Normocephalic, atraumatic. EYES: PERRLA and EOMI. ENT: Nares clear, no rhinorrhea or epistaxis. Mucous membranes moist. NECK: Supple. CHEST: Clear to auscultation. No respiratory distress. HEART: Regular rate and rhythm. No murmur heard. Normal peripheral pulses. ABDOMEN: Soft, diffusely tender to palpate, nondistended, normal active bowel sounds. EXTREMITIES: Normal range of motion. No edema. SKIN: Warm, dry, no rash. NEURO: No focal deficits. Alert and oriented x3. PSYCH: Normal mood and affect. Course Vital Signs Vital signs: Vital Signs Temperature 36.5 C 08/13/24 21:46 Pulse Rate 85 08/13/24 21:46 Respiratory Rate 24 H 08/13/24 21:46 Blood Pressure 135/70 08/13/24 21:46 Pulse Oximetry 97 08/13/24 21:46 Oxygen Delivery Room Air 08/13/24 21:46 Temperature 36.7 C 08/13/24 22:13 Pulse Rate 79 08/13/24 22:13 Respiratory Rate 16 08/13/24 22:13 Blood Pressure 135/68 08/13/24 22:13 Pulse Oximetry 96 08/13/24 22:13 Oxygen Delivery Room Air 08/13/24 21:46 MDM - Abdominal Pain MDM Narrative Medical decision making narrative: differential diagnosis includes colitis, diverticulitis, intra-abdominal infection laboratory studies were within now wants patient was started on cefdinir and Flagyl since she has allergies to penicillin and for quinolones Lab Data 08/13/24 22:10 08/13/24 22:10 Labs: Lab Results 08/13/24 08/13/24 Range/Units 22:09 22:10 WBC 7.9 (4.5-10.0) K/mm3 RBC 4.28 (4.2-5.4) M/mm3 Hgb 12.0 D (12.0-15.0) g/dL Hct 36.6 L (37.0-47.0) % MCV 85.5 (80-100) fl MCH 28.0 (26-34) pg MCHC 32.8 (32-36) g/dl RDW 13.7 (11.5-14.5) % Plt Count 305 (150-375) k/mm3 MPV 9.8 (7.4-10.4) fl Immature Gran % (Auto) 0.1 (0-0.5) % Neut % (Auto) 63.9 (45.5-73.1) % Lymph % (Auto) 25.4 (18.3-44.2) % [place] % (Auto) 7.6 (2.6-8.5) % Eos % (Auto) 2.6 (0-4.4) % Baso % (Auto) 0.4 (0.2-1.2) % Lymph # (Auto) 2.02 (0.9-3.2) K/mm3 [place] # (Auto) 0.6 (0.1-0.6) K/mm3 Eos # (Auto) 0.2 (0-0.3) K/mm3 Baso # (Auto) 0.0 (0.0-0.1) K/mm3 Abs Immat Gran (auto) 0.01 (0.00-0.031) K/mm3 Absolute Neuts (auto) 5.1 (1.3-6.7) K/mm3 Absolute Nucleated RBC 0.000 (0.0-0.012) K/mm3 Nucleated RBC % 0.0 (0.0-0.2) % Sodium 139 (137-145) mmol/L Potassium 3.5 (3.4-5.0) mmol/L Chloride 106 (98-107) mmol/L Carbon Dioxide 26 (22-30) mmol/L Anion Gap 7 (4-12) mmol/L BUN 9 (7-17) mg/dL Creatinine 0.80 (0.7-1.0) mg/dL Estim Creat Clear Calc 64 ml/min Estimated GFR > 60 (59 - ) Glucose 112 H (65-110) mg/dL Calcium 9.0 (8.4-10.2) mg/dL Total Bilirubin 0.7 (0.2-1.3) mg/dL AST 24 (14-36) U/L ALT 23 (6-35) U/L Alkaline Phosphatase 95 (38-126) U/L Total Protein 7.0 (6.3-8.2) g/dL Albumin 3.9 (3.5-5.1) g/dL Lipase 49 (23-300) U/L Urine Color Yellow (Yellow) Urine Appearance Cloudy H (Clear) Urine pH 7.0 (5.0-9.0) Ur Specific Dresser 1.017 (1.001-1.035) Urine Protein Negative (Negative) mg/dL Urine Glucose (UA) Negative (Negative) mg/dL Urine Ketones Negative (Negative) mg/dL Ur Blood (Man) Negative (Negative) Urine Nitrate Negative (Negative) Urine Bilirubin Negative (Negative) Urine Urobilinogen 1.0 (<2.0) mg/dL Leukocyte Esterase Rfl Trace H (Negative) DIMITRIOS/UL Urine RBC 0-2 (0-2) /hpf Urine WBC 0-5 (0-3) /hpf Ur Squamous Epith Cells Occasional (Few) /hpf Urine Bacteria None seen /hpf Urine Casts 0-2 Discharge Plan Discharge Clinical Impression: Colitis Patient Disposition: Home, Self-Care Condition: Stable Instructions: Antibiotic Form, Abdominal Pain (ED), Colitis (ED) Prescriptions: New metronidazole 500 mg tablet 500 mg PO Q8H 10 Days Qty: 30 0RF cefdinir 300 mg capsule 300 mg PO Q12H 10 Days Qty: 20 0RF No Action aspirin [Baby Aspirin] 81 mg Tablet,Chewable 81 mg PO DAILY pantoprazole 20 mg tablet,delayed release (DR/EC) 20 mg PO DAILY Qty: 90 1RF Rx Instructions: TAKE 1 TABLET BY MOUTH ONCE DAILY IN THE MORNING fluticasone propionate [Flonase Allergy Relief] 50 mcg/actuation spray,suspension 2 spray intranasal DAILY Qty: 18 3RF Rx Instructions: administer into each nostril fluticasone propion-salmeterol [Advair HFA] 230-21 mcg/actuation HFA aerosol inhaler 2 puff inhalation BID Qty: 12 0RF Rx Instructions: administer with spacer Xarelto 20 mg tablet 20 mg PO DAILY Hold Instructions: HOLD - Resume on 03/26/22 folic acid 1 mg tablet 1 mg PO DAILY albuterol sulfate [ProAir HFA] 90 mcg/actuation HFA aerosol inhaler 2 puff INHALATION Q6H PRN (Reason: Shortness Of Breath) Qty: 8.5 5RF ergocalciferol (vitamin D2) 1,250 mcg (50,000 unit) capsule 1,250 mcg PO DAILY Rx Instructions: TAKE 1 CAPSULE BY MOUTH ONCE EVERY MONTH 15 th of the month Adult 50 Plus Probiotic 4 billion cell capsule 4,000 mmu cells PO DAILY Rx Instructions: administer with a meal ferrous sulfate [Feosol] 325 mg (65 mg iron) tablet 325 mg PO DAILY cyclobenzaprine 10 mg tablet See Rx Instructions .ROUTE .COMPLEX Qty: 90 0RF Dose Instruction: Take 1 tablet by mouth three times daily as needed for muscle spasm Rx Instructions: Take 1 tablet by mouth three times daily as needed for muscle spasm ondansetron 4 mg tablet,disintegrating 4 mg PO Q8H PRN (Reason: nausea and vomiting) Qty: 90 0RF albuterol sulfate 2.5 mg /3 mL (0.083 %) solution for nebulization 2.5 mg inhalation Q4-6H PRN (Reason: shortness of breath or wheezing) Qty: 90 1RF Rx Instructions: Please dispense 3 ml vials. nebivolol 5 mg tablet See Rx Instructions .ROUTE .COMPLEX Qty: 90 2RF Dose Instruction: TAKE 1 TABLET BY MOUTH ONCE DAILY AT BEDTIME Rx Instructions: TAKE 1 TABLET BY MOUTH ONCE DAILY AT BEDTIME levothyroxine [Synthroid] 88 mcg tablet 88 mcg PO DAILY Qty: 90 1RF nystatin 100,000 unit/gram cream 1 applic topical BID PRN (Reason: rash) Qty: 15 0RF atorvastatin 40 mg tablet 40 mg PO DAILY Qty: 90 1RF Rx Instructions: Take 1 tablet by mouth once daily alprazolam [Xanax] 0.5 mg tablet 0.5 mg PO BID PRN (Reason: anxiety) Qty: 60 0RF Follow-up/Referrals: Eris Vu MD [Primary Care Provider] -
[2024-08-13] MEDS: fentaNYL CITRATE INJ (*CRX) 100 MCG/2 ML VIAL 50 MCG IV PUSH (22:27)
[2024-08-13 22:30] LABS: Add Urine Microscopic? YES; Appearance Urine Cloudy (Clear); Bacteria Urine None Seen /hpf; Bilirubin Urine Negative (Negative); Blood Urine Negative (Negative); Color Urine Yellow (Yellow); Glucose Urine UA Negative (Negative); Ketones Urine Negative (Negative); Leukocyte Esterase Ur Trace LEU/UL (Negative); Nitrate Urine Negative (Negative); Non Pathogenic Casts 0-2; Protein Urine Negative (Negative); RBC Urine 0-2 /hpf (0-2); Specific Grav Ur 1.017 (1.001-1.035); Squamous Epithelial Cell Urine Occasional /hpf (Few); WBC Urine 0-5 /hpf (0-3)
[2024-08-13 22:34] LABS: Alanine Aminotransferase 23 U/L (6-35); Albumin Level 3.9 g/dL (3.5-5.1); Alkaline Phosphatase 95 U/L (38-126); Anion Gap 7 mmol/L (4-12); Aspartate Amino Transferase 24 U/L (14-36); Bilirubin,Total 0.7 mg/dL (0.2-1.3); Blood Urea Nitrogen 9 mg/dL (7-17); Carbon Dioxide 26 mmol/L (22-30); Chloride 106 mmol/L (98-107); Estimated CRCL calculation 64 ml/min; Estimated Glomerular Filt Rate > 60; Glucose 112 mg/dL (65-110); Lipase 49 U/L (23-300); Potassium 3.5 mmol/L (3.4-5.0); Sodium 139 mmol/L (137-145)
[2024-08-14] MEDS: metroNIDAZOLE 500 MG TABLET PO (01:30)
[2024-08-14] MEDS: CEFDINIR 300 MG CAPSULE PO (01:30)
[2024-08-14] MEDS: fentaNYL CITRATE INJ (*CRX) 100 MCG/2 ML VIAL 25 MCG IV PUSH (01:30)
[2024-08-14 01:45] VITALS: BP 130/70; PULSE 76; RESP 14; O2SAT 98
[2024-08-14 02:22] VITALS: BP 130/70; PULSE 76; RESP 14; O2SAT 98
== END 2024-08-14 02:23 | disposition home or self-care (01) ==
PROVIDERS: Emergency Provider Emergency Medicine; PCP Family Medicine
DX: K52.9 Noninfective gastroenteritis and colitis, unspecified (principal); I25.10 Atherosclerotic heart disease of native coronary artery without angina pectoris; I69.911 Memory deficit following unspecified cerebrovascular disease; J44.9 Chronic obstructive pulmonary disease, unspecified; E03.9 Hypothyroidism, unspecified; E78.5 Hyperlipidemia, unspecified; E66.9 Obesity, unspecified; Z68.30 Body mass index [BMI] 30.0-30.9, adult; E53.8 Deficiency of other specified B group vitamins; E55.9 Vitamin D deficiency, unspecified; K21.9 Gastro-esophageal reflux disease without esophagitis; M19.90 Unspecified osteoarthritis, unspecified site; M79.7 Fibromyalgia; F17.210 Nicotine dependence, cigarettes, uncomplicated; Z98.1 Arthrodesis status; Z96.651 Presence of right artificial knee joint; Z86.0101 Personal history of adenomatous and serrated colon polyps; Z85.41 Personal history of malignant neoplasm of cervix uteri; Z86.16 Personal history of COVID-19; Z86.718 Personal history of other venous thrombosis and embolism; Z90.49 Acquired absence of other specified parts of digestive tract; Z90.711 Acquired absence of uterus with remaining cervical stump; Z79.82 Long term (current) use of aspirin; Z79.01 Long term (current) use of anticoagulants; Z79.899 Other long term (current) drug therapy; K38.1 Appendicular concretions; K44.9 Diaphragmatic hernia without obstruction or gangrene
CPT/HCPCS: 36415; 74177; 80053; 81001; 83690; 85025; 96361; 96374; 96375; 96376; 99284; A9270; J2405; J3010; J7030; Q9967

== ENCOUNTER 2024-08-25 08:55 | Outpatient (CLI) | payer MEDICARE, MEDICAID, SELFPAY ==
--- NOTE | ~2024-08-25 | CT_ITS ---
CT Scan of the Chest without Contrast: Clinical Indication: Lung cancer screening, nicotine dependence Technique: Contiguous sections were acquired throughout the chest without intravenous contrast. Dose reduction technique was used on this scan by utilizing automated exposure control and iterative recon struction technique. The dose-length product (DLP) was 84.40 mGy-cm. COMPARISON: 06/30/2024 Findings: There is no evidence of any significant mediastinal, hilar or axillary lymphadenopathy. The mediastin al soft tissues appear normal. There is no evidence of pleural or pericardial effusion. The lungs are clear. No pulmonary nodules or infiltrates are noted. Images through the upper abdomen reveal no abnormalities. Impression: Lung RADS 1: Negative. 12 month follow-up screening CT advised. Reviewed, dictated and finalized at location . 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 12 month follow-up screening CT advised.
== END 2024-08-25 08:56 | disposition home or self-care (01) ==
PROVIDERS: PCP Family Medicine; Visit Provider Internal Medicine Hematology & Oncology
DX: Z12.2 Encounter for screening for malignant neoplasm of respiratory organs (principal); Z87.891 Personal history of nicotine dependence
CPT/HCPCS: 71271

== ENCOUNTER 2024-08-30 17:27 | Emergency (ER) | payer MEDICARE, MEDICAID, SELFPAY ==
--- NOTE | ~2024-08-30 | XR_ITS ---
EXAM: XR knee LT 3V DATE: 08/30/2024 18:08 HISTORY: pain, swelling, injury . COMPARISON: 03/09/2023. FINDINGS: Decreased mineralization. No fracture or dislocation. No lytic or blastic lesion. Tricompa rtmental left knee osteoarthritis, most pronounced in the medial compartment. Moderate volume joint e ffusion. No erosion or periosteal change. Soft tissues within normal limits. IMPRESSION: No acute osseous finding in the left knee. Reviewed, dictated and finalized at location [facility]
[2024-08-30 17:32] VITALS: BP 144/63; PULSE 107; RESP 16; TEMP 36.4; O2SAT 97
[2024-08-30 17:42] VITALS: BP 112/62; PULSE 102; RESP 20; O2SAT 96
--- NOTE | 2024-08-30 18:47 | ED.LOWEXIN ---
HPI - Extremity Injury (Lower) General Chief Complaint: Extremity Injury, Lower Stated Complaint: L knee pain Time Seen by Provider: 08/30/24 17:51 History of Present Illness HPI Narrative: 64-year-old female presenting with left knee pain. States that she was struck by her son's dog nearly making her fall but she was able to catch herself. This happened yesterday and she has had knee pain since that time. States that she needs this knee replaced but she was trying to put it off. Related Data Home Medications ?Medication ?Instructions ?Recorded ?Confirmed ?Last Taken ?Type rivaroxaban 20 mg tablet (Xarelto) 20 mg PO DAILY 07/29/19 08/20/24 11/23/23 History folic acid 1 mg tablet 1 mg PO DAILY 08/04/19 08/20/24 09/22/21 History aspirin 81 mg chewable tablet 81 mg PO DAILY 10/06/22 08/20/24 Unknown History ergocalciferol (vitamin D2) 1,250 1,250 mcg PO DAILY 03/24/24 08/20/24 Unknown History mcg (50,000 unit) capsule ferrous sulfate 325 mg (65 mg 325 mg PO DAILY 03/24/24 08/20/24 Unknown History iron) tablet (Feosol) lactobacillus combination no.9 4 4,000 mmu cells PO DAILY 03/24/24 08/20/24 Unknown History billion cell capsule (Adult 50 Plus Probiotic) Allergies Allergy/AdvReac Type Severity Reaction Status Date / Time codeine Allergy Severe Anaphylaxis Verified 08/30/24 17:41 hydromorphone Allergy Severe Blister Verified 08/30/24 17:41 latex Allergy Severe Blister Verified 08/30/24 17:41 levofloxacin Allergy Severe BLISTERS Verified 08/30/24 17:41 ON BODY morphine Allergy Severe Hypotension Verified 08/30/24 17:41 oxycodone Allergy Severe Blister Verified 08/30/24 17:41 penicillin G Allergy Severe ANAPHYLACTI Verified 08/30/24 17:41 C Penicillins Allergy Severe Anaphylaxis Verified 08/30/24 17:41 shellfish derived Allergy Severe Swelling Verified 08/30/24 17:41 of Lip/Tongue/Throat vancomycin Allergy Severe Red Pablito, Verified 08/30/24 17:41 Patient unsure of reaction hydrocodone Allergy Intermediate Itching Verified 08/30/24 17:41 dexamethasone (From Maxitrol) Allergy Swelling Verified 08/30/24 17:41 of the Eye neomycin (From Maxitrol) Allergy Swelling Verified 08/30/24 17:41 of the Eye polymyxin B (From Maxitrol) Allergy Swelling Verified 08/30/24 17:41 of the Eye Review of Systems Review of Systems: All systems reviewed & are unremarkable except as noted in HPI and below PMFSH Past Medical History Medical History History of diverticulitis of colon Lower abdominal pain Diarrhea Abdominal pain BMI 34.0-34.9,adult COVID-19 (01/2022) Adenomatous colon polyp Tobacco abuse Colon, diverticulosis COPD (chronic obstructive pulmonary disease) Obesity Positive colorectal cancer screening using Cologuard test On [facility] drug therapy Recurrent falls Colon cancer screening History of colon polyps Otitis media Palpitations Hypersomnia Low hemoglobin Current use of medical terminologist anticoagulation Tobacco dependence Bradycardia Vertigo History of cervical cancer Fibromyalgia Osteoarthritis Diverticulosis With history of diverticulitis. GERD (gastroesophageal reflux disease) History of colon polyps Hyperlipidemia Carotid artery disease Status post left carotid endarterectomy. Hypothyroidism Dizziness CVA (cerebral vascular accident) With short-term memory loss. Mouth pain Dysphagia Adult hypothyroidism Hx of deep venous thrombosis Hyperglycemia Other and unspecified hyperlipidemia Nicotine abuse Personal history of nicotine dependence Symptomatic PVCs On metoprolol 50 milligrams daily. Vitamin B12 deficiency Vitamin D deficiency Surgical History Surgical History S/P medial meniscectomy of left knee (09/2021) Hx of tonsillectomy History of shoulder surgery History of neck surgery Hx of total knee arthroplasty Right History of arthroplasty of right knee History of left-sided carotid endarterectomy Status post cervical spinal fusion Status post right rotator cuff repair Status post tubal ligation Status post left breast biopsy Status post tonsillectomy Status post cholecystectomy Status post partial hysterectomy For cervical cancer. S/P cholecystectomy Family History Family History Mother Depression Family history of diabetes mellitus in first degree relative Diabetes mellitus Father Family history of diabetes mellitus in first degree relative Acute myocardial infarction Diabetes mellitus Sibling Hepatitis Pulmonary embolism Sibling No problems noted. Other Family history of allergic disorder Family history of cardiovascular disease Family history of malignant neoplasm Hypertension Social History Social History Social History: The patient is . She lives with her son in [place]. She designates her sons, Laith Howard and Kemal Islas, as her surrogate decision makers and she wishes to be a full code. She has smoked at least 1 pack of cigarettes per day for almost 40 years. She denies alcohol and drug abuse. Smoking packs per day: 1 Smoking cigarettes per day: 20.0 Years smoked: 40 Smoking pack-years: 40.00 Smoking status: Former smoker Tobacco type: cigarettes Second hand tobacco smoke exposure: Yes Smoking end date: 07/17/23 Additional smoking assessment comments: CUTTING DOWN TRYING TO QUIT MOST DAYS LESS THAN 0.5PK, Alcohol intake: current Substance use: never Substance use type: does not use Do You Feel Safe in your Home?: Yes Lack of Transportation: No Lack of Food: Never True Current Housing: I Have Housing Concerned About Future Housing: No Difficulty Paying Gas/Electric Bills: No Difficulty Paying for Meds: No Currently Unemployed: No Education: High School Diploma/GED Difficulty w/ Childcare or Family Care: No Living arrangements: with family Occupation/Education: retired 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 EYES: PERRLA and EOMI. ENT: Grossly unremarkable NECK: Supple. CHEST: No respiratory distress. HEART: Regular rate and rhythm ABDOMEN: Soft, nontender, nondistended EXTREMITIES: L knee is swollen, no erythema, tender especially medially SKIN: Warm, dry, no rash. NEURO: Alert and oriented x3. PSYCH: Normal mood and affect. Course Vital Signs Vital signs: Vital Signs Temperature 97.5 F L 08/30/24 17:32 Pulse Rate 107 H 08/30/24 17:32 Respiratory Rate 16 08/30/24 17:32 Blood Pressure 144/63 H 08/30/24 17:32 Pulse Oximetry 97 08/30/24 17:32 Oxygen Delivery Room Air 08/30/24 17:32 Temperature 97.5 F L 08/30/24 17:32 Pulse Rate 102 H 08/30/24 17:42 Respiratory Rate 20 08/30/24 17:42 Blood Pressure 112/62 08/30/24 17:42 Pulse Oximetry 96 08/30/24 17:42 Oxygen Delivery Room Air 08/30/24 17:32 MDM - Extremity Injury (Lower) MDM Narrative Medical decision making narrative: 64-year-old female presenting with left knee pain and swelling after being knocked over by a dog. Exam remarkable for the above. X-ray without acute osseous abnormalities. Patient has a long history of problems with this knee. She is allergic to all pain medications she states other than meloxicam and fentanyl. Will place her in a knee immobilizer and send in for some meloxicam. Recommend close follow-up with her orthopedic surgeon. Appropriate return precautions given. Discharged in stable condition. Imaging Data Radiologist's impression: ITS Impressions Knee X-Ray 08/30/24 18:16 IMPRESSION: No acute osseous finding in the left knee. Critical Care Time Critical Care Time Critical Care Time: No Discharge Plan Discharge Clinical Impression: Acute internal derangement of knee Patient Disposition: Home, Self-Care Condition: Stable Instructions: Antibiotic Form, Knee Pain (ED), Knee Immobilizer (ED) Additional Instructions: The x-ray today shows no broken bones. Please use the knee immobilizer and a walker to keep weight off of the knee. You may use the meloxicam as needed for pain. Follow-up with your orthopedic surgeon. If your symptoms worsen or other concerning symptoms arise, please return to the ER. Patient Language: Divehi Prescriptions: New meloxicam 7.5 mg tablet 7.5 mg PO DAILY Qty: 5 0RF No Action aspirin [Baby Aspirin] 81 mg Tablet,Chewable 81 mg PO DAILY pantoprazole 20 mg tablet,delayed release (DR/EC) 20 mg PO DAILY Qty: 90 1RF Rx Instructions: TAKE 1 TABLET BY MOUTH ONCE DAILY IN THE MORNING fluticasone propionate [Flonase Allergy Relief] 50 mcg/actuation spray,suspension 2 spray intranasal DAILY Qty: 18 3RF Rx Instructions: administer into each nostril fluticasone propion-salmeterol [Advair HFA] 230-21 mcg/actuation HFA aerosol inhaler 2 puff inhalation BID Qty: 12 0RF Rx Instructions: administer with spacer Xarelto 20 mg tablet 20 mg PO DAILY folic acid 1 mg tablet 1 mg PO DAILY albuterol sulfate [ProAir HFA] 90 mcg/actuation HFA aerosol inhaler 2 puff INHALATION Q6H PRN (Reason: Shortness Of Breath) Qty: 8.5 5RF ergocalciferol (vitamin D2) 1,250 mcg (50,000 unit) capsule 1,250 mcg PO DAILY Rx Instructions: TAKE 1 CAPSULE BY MOUTH ONCE EVERY MONTH of the Adult 50 Plus Probiotic 4 billion cell capsule 4,000 mmu cells PO DAILY Rx Instructions: administer with a meal ferrous sulfate [Feosol] 325 mg (65 mg iron) tablet 325 mg PO DAILY cyclobenzaprine 10 mg tablet See Rx Instructions .ROUTE .COMPLEX Qty: 90 0RF Dose Instruction: Take 1 tablet by mouth three times daily as needed for muscle spasm Rx Instructions: Take 1 tablet by mouth three times daily as needed for muscle spasm ondansetron 4 mg tablet,disintegrating 4 mg PO Q8H PRN (Reason: nausea and vomiting) Qty: 90 0RF metronidazole 500 mg tablet 500 mg PO Q8H 10 Days Qty: 30 0RF albuterol sulfate 2.5 mg /3 mL (0.083 %) solution for nebulization 2.5 mg inhalation Q4-6H PRN (Reason: shortness of breath or wheezing) Qty: 90 1RF Rx Instructions: Please dispense 3 ml vials. nebivolol 5 mg tablet See Rx Instructions .ROUTE .COMPLEX Qty: 90 2RF Dose Instruction: TAKE 1 TABLET BY MOUTH ONCE DAILY AT BEDTIME Rx Instructions: TAKE 1 TABLET BY MOUTH ONCE DAILY AT BEDTIME levothyroxine [Synthroid] 88 mcg tablet 88 mcg PO DAILY Qty: 90 1RF nystatin 100,000 unit/gram cream 1 applic topical BID PRN (Reason: rash) Qty: 15 0RF atorvastatin 40 mg tablet 40 mg PO DAILY Qty: 90 1RF Rx Instructions: Take 1 tablet by mouth once daily alprazolam [Xanax] 0.5 mg tablet 0.5 mg PO BID PRN (Reason: anxiety) Qty: 60 0RF Follow-up/Referrals: Dr. Orozco [Other] Eris Vu MD [Primary Care Provider] -
[2024-08-30] MEDS: MELOXICAM 7.5 MG TABLET PO (19:42)
--- OUTSIDE RECORDS SUMMARY | 2024-09-04 17:07 | XMS_ITS | Patient Health Record ---
Author Organization [facility] Address [address] [address] Care Team Providers Care Supervisor Advertising Dispatch Clerks Name Role Phone Tanner Reid MD Primary Care Provider Tanner Reid Unavailable Unavailable ALLERGIES Allergen (clinical drug ingredient) Drug/Non Drug Allergy documented on EMR Reaction Allergy Type Onset Date Status codeine codeine Unknown Drug Allergy Active Latex Gloves Unknown Drug Allergy Acti ve vancomycin Vancomycin HCl Unknown Drug Allergy A ctive penicillin G Penicillin G Sodium Unknown Drug Allergy Active morphine Morphine Sulfate Unknown Drug Allergy Active REASON FOR REFERRAL No Information MEDICATIONS Medication SIG (Take, Route, Fr equency, Duration) Notes Start Date End Date Status thyroid med Active traMADol HCl 50 MG 1-2 tablet as needed Orally every 4-6 hrs 05/26/2015 Active SOCIAL HISTORY Tobacco Use: Social History Observation Description Date Details (start date - stop date) Current Smoker NA - NA Sex Assigned At : Social History Observation Description Sex Assigned At Unknown Tobacco Use: Question Answer Notes Patient is a: current smoker How many cigarettes a day do you smoke? 11-20 Alcohol screening: Question Answer Notes Did you have a drink containing alcohol in the p ast year? No Points 0 Interpretation Negative PROBLEMS Problem Type ICD Code Onset Dates Problem Status W/U Status Risk SNOMED Code Notes Problem Sprain of interphalangeal joint of left index finger, initial encounter (S63.631A) 023 Active confirmed [id number] Problem Fall on same level from slipping, tripping and stumbling without subsequent striking against object, initial encounter (W01.0XXA) 023 Active confirmed 108022142 Problem Encounter for other specified surgical aftercare (Z48.89) Active confirmed Postoperative c are ([id number]) PLAN OF TREATMENT No Information Insurance Providers Payer Name Payer Address Payer Phone Subscriber Number Group Number Insured Name Patient Relationship to Insured Coverage Start Date Coverage End Date [employer] Medicare Advantage PPO [address] [address] [place] [address] [id number] Gege Vidal Self - patient is the insured MEDICAL (GENERAL) HISTORY Medical History History ICD Code Hypothyroidism Surgical History Surgery Date(Month/Year) right knee arthroscopy tubal ligation tonsillectomy hysterectomy neck right knee arthroscopy shoulder arthroscopy, right x2
--- OUTSIDE RECORDS SUMMARY | 2024-09-04 17:07 | XMS_ITS | Referral Summary ---
Author Organization [facility] Address [address] [place] [address] Care Team Providers Care Manager Credit Risk Name Role Phone Boris Mcnair Primary Care Provider [phone] Source Comments [facility],non-owned Affiliates and Associated Physician Practices is amultiple site organization consisting of ambulatory clinics and hospital sitesin [place], [place], [place] and [place]. This disclosure is being madepursuant to the Care Everywhere program and may not contain all information available regarding this patient. Last updated 18.[facility] Allergies Active Allergy Reactions Criticality Noted Date Comments Adhesive Sensitivity Other Medium 08/19/2014 Blisters Codeine Shortness of Breath High 08/19/2014 Food Other 08/19/2014 Alcohol- makes her break out in blisters Latex Urticaria,Swelling High 08/19/2014 Morphine Other High 08/19/2014 hypotension Penicillins Shortness of Breath High 08/19/2014 Vancomycin Other High 08/19/2014 Marzena's syndrome Vancomycin Other Medications * Be aware that medications may not be up to date on this document. Alwaysverify current medications with the patient. Medication Sig Dispensed Refills Start Date End Date Status XARELTO 20 MG tablet Take 20 mg by mouth once daily 01/31/2018 Active atorvastatin (LIPITOR) 20 MG tablet 02/01/2018 Active aspirin EC (ECOTRIN) 81 MG tablet Take 81 mg by mouth once daily Active levothyroxine (SYNTHROID) 137 MCG tablet Take 137 mcg by mouth daily before breakfast Active cyanocobalamin (VITAMIN B-12) 1000 MCG tablet Take 1,000 mcg by mouth once daily Active folic acid (FOLVITE) 1 MG tablet Take 1 mg by mouth 03/25/2018 Activ e VENTOLIN HFA 108 (90 BASE) MCG/ACT inhaler 09/30/2018 Act miranda pantoprazole EC (PROTONIX) 20 MG tablet 10/09/2018 Active Cholecalciferol (VITAMIN D3) 88903 units capsule Active Active Problems Problem Noted Date Diagnosed Date Claudication of both lower extremities 9 Carotid artery embolus, left 02/14/2018 Social History Tobacco Use Types Packs/Day Years Used Date Smoking Tobacco: Every Day Cigarettes 1 30 Smokeless Tobacco: Never Tobacco Cessation:Counseling Given: No Alcohol Use Standard Drinks/Week Comments No 0 (1 standard drink = 0.6 oz pur e alcohol) Sex and Gender Information Value Date Recorded Sex Assigned at Not on file Gender Identity Not on file Sexual Orientation Not on file Last Filed Vital Signs Vital Sign Reading Time Taken Comments Blood Pressure 118/68 04/02/2019 10:49 AM CDT Pulse 85 04/02/2019 10:49 AM CDT Temperature 36.9 ??C (98.5 ??F) 04/02/2019 10:49 AM C DT Respiratory Rate 20 04/02/2019 10:49 AM CDT Oxygen Saturation 95% 04/02/2019 10:49 AM CDT Inhaled Oxygen Concentration - - Weight 81.2 kg (179 lb) 04/02/2019 10:49 AM CDT Height 160 cm (5' 3 ) 04/02/2019 10:49 AM CDT Body Mass Index 31.71 04/02/2019 10:49 AM CDT Functional Status Functional Status Response Date of Assess ment Is person deaf or have serious hearing difficult y? No 02/15/2018 Is person blind or have serious difficulty seein g? No 02/15/2018 Does person have serious dif ficulty walking/climbing stairs? No 02/15/2018 Does person have difficulty dressing/bathing? No 02/15/2018 Does person have difficulty doing errands alone? No 02/15/2018 Cognitive Status Response Date of Assessm ent Does person have difficulty concentrating/remembering/making decisions? No 02/15/2018 Plan of Treatment Not on file Procedures Procedure Name Priority Date/Time Associated Diagnosis Comments COMPREHENSIVE METABOLIC PANEL AM Draw 02/07/2018 12:50 PM CDT Hypercholesteremia from Last 3 Months or Most Recently Relevant to Health Maintenance Results * (ABNORMAL) COMPREHENSIVE METABOLIC PANEL (02/07/2018 12:50 PM CDT) BUN 8 7 - 26 mg/dL 02/07/2018 1:22 PM [facility] Creatinine 1.0 0.6 - 1.2 mg/dL 02/07/2018 1:22 PM [facility] Sodium 136 136 - 145 mmol/L 02/07/2018 1:22 PM [facility] Potassium 3.6 3.5 - 4.5 mmol/L 02/07/2018 1:22 PM [facility] Chloride 101 98 - 107 mmol/L 02/07/2018 1:22 PM [facility] CO2 25 22 - 29 mmol/L 02/07/2018 1:22 PM [facility] Glucose 93 70 - 115 mg/dL 02/07/2018 1:22 PM [facility] Calcium 9.9 8.4 - 10.2 mg/dL 02/07/2018 1:22 PM [facility] Protein Total 7.6 6.0 - 8.3 g/dL 02/07/2018 1:22 PM [facility] Albumin 3.5 3.4 - 5.0 g/dL 02/07/2018 1:22 PM [facility] Bilirubin Total 0.7 0.2 - 1.2 mg/dL 02/07/2018 1:22 PM [facility] Alkaline Phosphatase 109 40 - 150 Units/L 02/07/2018 1:22 PM [facility] ALT 22 0 - 55 Units/L 02/07/2018 1:22 PM [facility] AST 23 5 - 34 Units/L 02/07/2018 1:22 PM [facility] Anion Gap 14 8 - 18 02/07/2018 1:22 PM CDT [facility] BUN/Creatinine Ratio 8 7 - 23 02/07/2018 1:22 PM CDT [facility] Osmolality Calculated 280 270 - 300 mOsm/kg 02/07/2018 1:22 PM [facility] Albumin/Globulin Ratio 0.9(L) 1.1 - 2.3 02/07/2018 1:22 PM T [facility] eGFR 57(L) >60 mL/min/1.7 3 m2 02/07/2018 1:22 PM T [facility] Blood BLOOD SPECIMEN / Unknown Lab Venipuncture / Unknown 02/07/2018 12:50 PM CDT 02/07/2018 12:55 PM CDT Ester Barajas DO LAB - CHEMISTRY ORD ERABLES Performing Organization Address City/State/[facility] Co de Phone Number [facility] [address] [phone] from Last 3 Months or Most Recently Relevant to Health Maintenance Insurance Payer Benefit Plan / Group Subscriber ID Effective Dates Phone Address Type [facility] MANAGED MEDICARE ADV [facility] MEDICARE ADV [id number] Effective for all dates [phone] [address] [place] [address] Medicare-Ma naged Care MEDICAID [facility] [employer] Effective for all dates [address] [place] [id number] Medicaid [facility] MANAGED MEDICARE ADV [facility] MEDICARE ADV [id number] Effective for all dates [phone] [address] [place] [address] Medicare-Ma naged Care MEDICAID [employer]DOWN [facility] MEDICAID [employer]DOWN [facility] Effective for all dates [address] [place] [address] Medicaid C MANAGED MEDICARE ADV [facility] MEDICARE ADV [id number] Effective for all dates [address] [address] [place] [address] Medicare-Ma naged Care MEDICAID [employer] [facility] MEDICAID SP[employer]DOWN [facility] Effective for all dates [address] [place] [address] Medicaid [facility] MANAGED MEDICARE ADV [facility] MEDICARE ADV [id number] Effective for all dates [address] [address] [place] [address] Medicare-[facility] MEDICARE S MEDICARE PART B [id number] 04/16/2013-Pres ent [address] [address] [place] [address] Medicare MEDICAID - OUT OF [facility] MEDICAID - [place] PUBLIC AID [id number] 03/24/2022-Pres ent [address] [address] [place] [address] Medicaid MEDICARE MEDICARE PART A AND B [id number] 04/16/2013-Pres ent [address] [place] [address] Medicare Advance Directives * Full Code (Latest Code Status on File) Date Activated Date Inactivated Comments 02/15/2018 8:10 AM 02/15/2018 12:04 PM * Full Code Date Activated Date Inactivated Comments 02/14/2018 7:57 AM 02/14/2018 6:16 PM Care Teams Manager Credit Risk Relationship Specialty Start Date End Date Boris Mcnair DO [address] [place] [id number] PCP - General 04/07/19
--- OUTSIDE RECORDS SUMMARY | 2024-09-04 17:07 | XMS_ITS ---
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 Allergies Encounters Encounter Location Date Provider Diagnosis [facility] [address] [place] [address] [address] [place] [address] 07/28/2024 Franky Gray Plan Of Treatment Next Appt Details Provider Name:Breann louis, 09/07/2024 12:30:00 PM, [address], [place], [address], Progress Notes * Gege VIDALDOB:1960 (64 yo F)Acc No.[id number]:07/28/2024 Progress Notes Patient:?Gege VIDAL Provider:?Franky Gray PA-C :1960???Age:64 Y???Sex:Female D ate:07/28/2024 [address] [facility] Pcp:Eris Vu Subjective: * Chief Complaints: * ???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 * Medical History:? Objective: * Vitals:? Assessment: Plan: * Treatment: * Billing Information: * Visit Code:? * Procedure Codes:? * Electronic signature of Bipin Gray PA-C on 09/04/2024 at 05:07 PM CYBER ENGINEER Sign off status: Pending * Provider:?Franky Gray PA-C Date:? Generated for Neal gonzalez/Randall/Eduardo on:?09/04/2024 05:07 PM CYBER ENGINEER
--- OUTSIDE RECORDS SUMMARY | 2024-09-04 17:07 | XMS_ITS ---
Author Organization [facility] Address [address] [place] [address] Care Team Providers Care Night Manager Name Role Phone Eris Vu Primary Care Provider Franky Zamora Unavailable [phone] Breann Chavira Unavailable [phone] Allergies Allergen (clinical drug ingredient) Drug/Non Drug Allergy documented on EMR Reaction Allergy Type Onset Date Status codeine Codeine anaphylaxis Drug Allergy Activ e hydromorphone HYDROmorphone rash Drug Allergy Active Latex Latex rash Allergy Active levofloxacin levoFLOXacin rash Drug Allergy A ctive Results Component Value Reference Range Notes Spirometry Reviewed date:08/17/2024 01:54:27 PM Interpretation:Abnormal Performing Lab: Notes/Report: Abnormal SpiroPreBronchodilator_FVC 2.45 SpiroPostBronchodilator_FEF25_75 0 SpiroPreBronchodilator_FEF25_75 0.6 SpiroPreBronchodilator_FEV1 1.31 SpiroPrecentPredictionPost_FEF25_75 0 SpiroPrecentPredictionPost_FEV1 0 SpiroPrecentPredictionPost_FEV1_OVER_FVC 0 SpiroPrecentPredictionPost_FVC 0 SpiroPrecentPredictionPre_FEF25_75 26.2 SpiroPrecentPredictionPre_FEV1 55 SpiroPrecentPredictionPre_FEV1_OVER_FVC 68.7 SpiroPrecentPredictionPre_FVC 80.9 SpiroPredicted_FEF25_75 2.29 SpiroPreBronchodilator_FEV1_OVER_FVC 53.53 SpiroPreBronchodilator_PEF 2.45 SpiroPostBronchodilator_FVC 0 SpiroPostBronchodilator_FEV1 0 SpiroPostBronchodilator_FEV1_OVER_FVC 0 SpiroPostBronchodilator_PEF 0 SpiroPredicted_FVC 3.03 SpiroPredicted_FEV1 2.38 SpiroPredicted_FEV1_OVER_FVC 77.87 SpiroPredicted_PEF 5.66 REASON FOR VISIT Recently with ocular swelling, erythema and watering with various ocular drops following cataract surgery., Chronic upper airway symptoms concerning for uncontrolled atopic disease, has trialed Zyrtec in the past without benefit., Swelling and syncope reported after a bee sting > 20 years ago. Not currently carrying an AIE., Hives and syncope reported with penicillin at age 18, avoidant since., Chronic lower airways symptoms concerning for possible asthma, occasional shortness of breath. History of COPD. No prior pulmonary evaluation., Avoidant of shellfish due to syncope after consuming lobster, additional details unclear. Eats finned fish without issue., Avoidant of codeine and morphine due to syncope and reduced blood pressure., Rashes with various fragrances. Medications Medication SIG (Take, Route, Frequency, Duration) Notes Start Date End Date Status EPINEPHrine 0.3 MG/0.3ML as directed Inj ection as needed for 30 days 08/10/2024 Active Folic Acid 1 MG 1 tablet Orally Once a day Active Advair HFA 230-21 MCG/ACT 2 puffs Inhala tion Twice a day Active Fluticasone Propionate 50 MCG/ACT 1 spray in each nostril Nasally Twice a day Active Ferrous Sulfate 325 (65 Fe) MG 1 tablet Orally Three times a Week Active Lactobacillus - as directed Orally Active Levothyroxine Sodium 88 MCG 1 tablet in the morning on an empty stomach Orally Once a day Active Ondansetron 4 MG 1 tablet on the tong ue and allow to dissolve Orally Once a day Active Nebivolol HCl 5 MG 1 tablet Orally Once a day Active Nystatin 477468 UNIT/GM 1 application Ex ternally Twice a day Active AeroChamber MV - as directed for 30 days Any adult spacer 08/16/2024 Active Pantoprazole Sodium 20 MG 1 tablet 1/2 t o 1 hour before morning meal Orally Once a day Active Albuterol Sulfate HFA 108 (90 Base) MCG/ACT 2 puffs as needed Inhalation every 4 hrs for 30 days 08/16/2024 Active Rivaroxaban 20 MG 1 tablet with food O rally Once a day Active Social History Tobacco Use: Social History Observation Description Date Details (start date - stop date) Current Smoker NA - NA Tobacco Control (Standard) Question Answer Notes Tobacco use: Current smoker Problems Problem Type SNOMED Code ICD Code Onset Dates Problem Status W/U Status Risk Notes Problem Chronic rhinitis (04458836) Chronic rhinitis (J31.0) Active confirmed Problem Carotid artery syndrome hemispheric (987265484) Carotid artery syndrome (hemispheric) (G45.1) Active confirmed Problem Fibromyalgia (229542018) Fibromyalgia (M79.7) Active confirmed Problem Urticaria (703461594) Other urticaria (L50.8) Active confirmed Problem Swelling of head (035574186) Localized swelling, mass and lump, head (R22.0) Active confirmed Problem Hypertrophy of nasal turbinates (46944357) Hypertrophy of nasal turbinates (J34.3) Active confirmed Problem Shortness of breath (913853420) Shortness of breath (R06.02) Active confirmed Problem Toxic effect of venom (27530313) Toxic effect of venom of bees, accidental (unintentional), initial encounter (T63.441A) Active confirmed Problem Eruption of skin (536431552) Rash and other nonspecific skin eruption (R21) Active confirmed Problem Allergy to penicillin (00263743) Allergy status to penicillin (Z88.0) Active confirmed Problem Drug allergy (753606974) Allergy status to unspecified drugs, medicaments and biological substances (Z88.9) Active confirmed Problem Heart disease (20113569) Other heart disorders in diseases classified elsewhere (I52) Active confirmed Vital Signs Blood pressure systolic 110 mm Hg 08/10/20 24 Blood pressure diastolic 72 mm Hg 024 Oximetry 97 % 08/10/2024 Height 64 in 08/10/2024 Weight 181.2 lbs 08/10/2024 BMI 31.1 kg/m2 08/10/2024 Encounters Encounter Location Date Provider Diagnosis [facility] [address] [place] [address] 08/10/2024 Breann Chavira Localized swelling, mass and lump, head R22.0 ; Allergy status to unspecified drugs, medicaments and biological substances Z88.9 ; Other urticaria L50.8 ; Hypertrophy of nasal turbinates J34.3 ; Chronic rhinitis J31.0 ; Shortness of breath R06.02 ; Toxic effect of venom of bees, accidental (unintentional), initial encounter T63.441A ; Rash and other nonspecific skin eruption R21 ; Allergy status to penicillin Z88.0 and Other heart disorders in diseases classified elsewhere I52 Assessments Encounter Date Diagnosis (ICD Code) Assessment Notes Treatment Notes Treatment Clinical Notes Section Notes 08/10/2024 Localized swelling, mass and lump, head (ICD-10 - R22.0) Gege presents with concerns for various medication allergies. Most recently she was prescribed various ocular drops following cataract surgery, please see HPI for full details. She endorsed ocular swelling and redness and eye watering. She was eventually seen in the ER where she was treated with steroids and antihistamines. While on these medications symptoms took > 7 days to resolve, however notes that she continued to use one of her prescribed eye drops at the time. She denies other skin changes, lower airway or GI symptoms. The eye drops she used at the time were Maxitrol, two different prednisolone ocular drops and Refresh Optive lubricant. - Discussed that, unfortunately, we do not have standardized skin testing for the above medications. Symptoms have both typical and atypical characteristics for an IgE-mediated hypersensitivity reaction. As Gege had undergone a surgical procedure, it is difficult to discern underlying cause. Recommend continued avoidance of the above medications/eye drops. - Considerations include an IgE-mediated hypersensitivity reaction vs complications following her surgery vs idiopathic cause vs other. - Will obtain C4 and tryptase level for further evaluation. See plans below. - Will request records from [facility], as well as from her brain picker. - Follow-up in 4 weeks for laboratory review 08/10/2024 Allergy status to unspecified drugs, medicaments and biological substances (ICD-10 - Z88.9) See plan above 08/10/2024 Other urticaria (ICD-10 - L50.8) Also with reports of urticaria with other medications, will order tryptase level to assess for mast cell conditions. Consider urine studies, however will obtain baseline tryptase first 08/10/2024 Hypertrophy of nasal turbinates (ICD-10 - J34.3) Gege presents with upper airway symptoms concerning for uncontrolled atopic disease. She has two dogs in her home. She has trialed Zyrtec in the past without benefit. - Discussed SPT, however will obtain ImmunoCaps first as Gege is being sent for laboratory work. - Consider returning for SPT pending laboratory review 08/10/2024 Chronic rhinitis (ICD-10 - J31.0) See plan above 08/10/2024 Shortness of breath (ICD-10 - R06.02) Gege reports history of COPD. She denies prior pulmonary evaluation. She was prescribed Advair by her PCP, however admits to not starting it. She endorses occasional shortness of breath. She also has an albuterol inhaler, denies use, however. She is a current smoker, smokes approximately 5 cigarettes per day. She has been smoking for > 40 years. She is up-to-date on CT scans. - Spirometry obtained that showed moderately severe obstruction suggested by reduced FEV%, normal FVC and borderline FEV1. Deferred BD challenge due to time constraints. - Due to Gege's history of COPD, discussed evaluation by pulmonology. Gege is in agreement. Will obtain full PFT with [employer] device in the meantime. - Start Advair as prescribed by her PCP, proper demonstration provided today. - Gege is to use her rescue inhaler as-needed. Needs AAP next visit. - Follow-up in 4 weeks for spirometry and further evaluation and management 08/10/2024 Toxic effect of venom of bees, accidental (unintentional) , initial encounter (ICD-10 - T63.441A) Gege reports being stung by a bee when she was in her twenties. Reports being stung, recalls significant swelling, then she passed out. States she awoke surrounded by medical personnel, other details are not clear. - Plan to return for venom testing. - Gege is to carry an AIE at all times. Indications and proper use discussed at length. - Follow-up as above 08/10/2024 Rash and other nonspecific skin eruption (ICD-10 - R21) Gege reports erythematous and dry rashes that occurs with various topical products and fragrances. - Consider patch testing, discuss further next visit 08/10/2024 Allergy status to penicillin (ICD-10 - Z88.0) Gege reports passing out while taking penicillin in the past, further details are not clear. - Consider returning for penicillin testing, Gege is considering at this time 08/10/2024 Other heart disorders in diseases classified elsewhere (ICD-10 - I52) Gege reports history of PVCs, currently prescribed a beta-jerry. If Gege pursues immunotherapy, discuss this further 08/10/2024 Other Plan Of Treatment Medication Medication Name Sig Start Date Stop Date Notes EPINEPHrine 0.3 MG/0.3ML as directed Inj ection as needed for 30 days 08/10/2024 Advair HFA 230-21 MCG/ACT 2 puffs Inhala tion Twice a day AeroChamber MV - as directed for 30 days 08/16/2024 Albuterol Sulfate HFA 108 (9 0 Base) MCG/ACT 2 puffs as needed Inhalation every 4 hrs for 30 days 08/16/2024 Treatment Notes Assessment Notes Localized swelling, mass and lump, head Gege presents with concerns for various medication allergies. Most recently she was prescribed various ocular drops following cataract surgery, please see HPI for full details. She endorsed ocular swelling and redness and eye watering. She was eventually seen in the ER where she was treated with steroids and antihistamines. While on these medications symptoms took > 7 days to resolve, however notes that she continued to use one of her prescribed eye drops at the time. She denies other skin changes, lower airway or GI symptoms. The eye drops she used at the time were Maxitrol, two different prednisolone ocular drops and Refresh Optive lubricant. - Discussed that, unfortunately, we do not have standardized skin testing for the above medications. Symptoms have both typical and atypical characteristics for an IgE-mediated hypersensitivity reaction. As Gege had undergone a surgical procedure, it is difficult to discern underlying cause. Recommend continued avoidance of the above medications/eye drops. - Considerations include an IgE-mediated hypersensitivity reaction vs complications following her surgery vs idiopathic cause vs other. - Will obtain C4 and tryptase level for further evaluation. See plans below. - Will request records from [facility], as well as from her brain picker. - Follow-up in 4 weeks for laboratory review Allergy status to unspecifie d drugs, medicaments and biological substances See plan above Other urticaria Also with reports of urticaria with other medications, will order tryptase level to assess for mast cell conditions. Consider urine studies, however will obtain baseline tryptase first Hypertrophy of nasal turbinates Gege presents with upper airway symptoms concerning for uncontrolled atopic disease. She has two dogs in her home. She has trialed Zyrtec in the past without benefit. - Discussed SPT, however will obtain ImmunoCaps first as Gege is being sent for laboratory work. - Consider returning for SPT pending laboratory review Chronic rhinitis See plan above Shortness of breath Gege reports history of COPD. She denies prior pulmonary evaluation. She was prescribed Advair by her PCP, however admits to not starting it. She endorses occasional shortness of breath. She also has an albuterol inhaler, denies use, however. She is a current smoker, smokes approximately 5 cigarettes per day. She has been smoking for > 40 years. She is up-to-date on CT scans. - Spirometry obtained that showed moderately severe obstruction suggested by reduced FEV%, normal FVC and borderline FEV1. Deferred BD challenge due to time constraints. - Due to Gege's history of COPD, discussed evaluation by pulmonology. Gege is in agreement. Will obtain full PFT with [employer] device in the meantime. - Start Advair as prescribed by her PCP, proper demonstration provided today. - Gege is to use her rescue inhaler as-needed. Needs AAP next visit. - Follow-up in 4 weeks for spirometry and further evaluation and management Toxic effect of venom of bee s, accidental (unintentional), initial encounter Gege reports being stung by a bee when she was in her twenties. Reports being stung, recalls significant swelling, then she passed out. States she awoke surrounded by medical personnel, other details are not clear. - Plan to return for venom testing. - Gege is to carry an AIE at all times. Indications and proper use discussed at length. - Follow-up as above Rash and other nonspecific skin eruption Gege reports erythematous and dry rashes that occurs with various topical products and fragrances. - Consider patch testing, discuss further next visit Allergy status to penicillin Gege reports passing out while taking penicillin in the past, further details are not clear. - Consider returning for penicillin testing, Gege is considering at this time Other heart disorders in dis eases classified elsewhere Gege reports history of PVCs, currently prescribed a beta-jerry. If Gege pursues immunotherapy, discuss this further Pending Test Test Name Order Date RESPIRATORY ALLERGY PROFILE REGION VIII: [place], [place] 08/10/2024 TRYPTASE 08/10/2024 COMPLEMENT COMPONENT C4C 08/10/2024 Next Appt Details Follow Up: 4 Weeks, Reason: Evaluation and Management, Laboratory Review, Spirometry/Flow Volume Loop Provider Name:Breann louis, 09/07/2024 12:30:00 PM, [address] [facility], [address], [place], [address], Procedure Notes * Category Sub-Category Detail Notes Time (Provider Encounter) Time Attestation This new patient encounter took more than:: more than 60 minutes (03911) Tasks performed during this encounter include:: taking a history, reviewing the patient's review of systems, performing the physical examnation, reviewing outside medical records, counseling the patient on their diagnoses and chronic management, discussed risks, benefits and alternatives to care, documenting in the EHR, This time calculation excludes any time associated with the separately identifiable medical procedures performed/described within this note (e.g. spirometry/flow volume loop, injections, skin testing, etc...) Progress Notes * Gege VIDALDOB:1960 (64 yo F)Acc No.[id number]:08/10/2024 Progress Notes Patient:?Gege VIDAL Provider:?Breann Chavira DNP HANDLE BENDER-C :1960???Age:64 Y???Sex:Female D ate:08/10/2024 Address:[address] [place], [place] [id number] Pcp:Eris Vu Subjective: * Chief Complaints: * ???Recently with ocular swel ling, erythema and watering with various ocular drops following cataract surgery.Chronic upper airway symptoms concerning for uncontrolled atopic disease, has trialed Zyrtec in the past without benefit.Swelling and syncope reported after a bee sting > 20 years ago. Not currently carrying an AIE.Hives and syncope reported with penicillin at age 18, avoidant since.Chronic lower airways symptoms concerning for possible asthma, occasional shortness of breath. History of COPD. No prior pulmonary evaluation.Avoidant of shellfish due to syncope after consuming lobster, additional details unclear. Eats finned fish without issue.Avoidant of codeine and morphine due to syncope and reduced blood pressure.Rashes with various fragrances. * HPI: ???*Introduction:?I had the pleasure of seeing?Gege Vidal, a 64-year-old female with pastmedical history significant for arthritis s/p knee replacement, diverticulitis,COPD, hyperlipidemia and GERD, who presents for allergy evaluation andmanagement. She presents in consultation with her PCP, Dr. Vu. She is alonefor today's visit. Gege presents due to concerns for multiple medicationallergies. She presents in consultation with her PCP, Dr. Vu. She is alonefor today's visit. Gege reports that last month she underwent cataract surgeryin her left eye. Following this procedure she was prescribed Maxitrol oculardrops. After a couple of days she began experiencing swelling, watering anderythema surround her left eye. She was seen by her brain picker, whorecommended stopping Maxitrol and started her on a prednisolone eye drop, shewas also using Refresh ocular lubricant. She was, once again, seen by her brain picker who started a different prednisoloneeye drop. Symptoms persistedand she reports the swelling worsened, due to thisshe was seen at [facility] where she was given steroids andantihistamines, also sent home on prednisone and Benadryl. She reports shecontinued to use the second prednisolone drop she was prescribed. Several dayslater she was seen once again by her brain picker, who stopped theprednisolone ocular drop and recommended Refresh preservative- free drops. Afterfinishing her 7-day course of oral prednisone prescribed at the ER her symptomsresolved. She feels her left eye is still mildly swollen. Gege reports a history of various medication allergies. Atage 18 she was prescribed penicillin and codeine due to a presumed infection,for which she passed out and developed swelling, other details are not clear.She has been avoidant of both since. Gege reports generalized erythema and itchingwith vancomycin. She is avoidant of morphine because it dropped my blood pressure, again additional details are not clear. Gege endorses upper airway symptoms concerning foruncontrolled atopic disease. Descriptors of her symptoms are outlined below.She has taken Zyrtec previously without benefit. There are two dogs in [facility]. She has never undergone allergy testing or received allergenimmunotherapy. Gege endorses occasional shortness of breath. Reportshistory of COPD, currently smokes approximately 5 cigarettes daily. She hasbeen smoking for over 40 years. She was recently prescribed Advair by her PCP,however she has not started this medication. Also carrying a rescue inhaler. Nohistory of hospitalizations due to lower airway symptoms. She has annual CT scansof her lungs completed by oncology due to her history of cervical and skincancer. No prior pulmonary evaluation. She also reports history of swelling and syncope following abee sting, this was over twenty years ago. She does not recall details, is onlyaware of being stung and waking up surrounded by medical personnel. She has notbeen stung since. She does not carry an AIE. Additionally, Gege reports long history of sensitive skin.She is cautious with various fragrances that she uses. In the past has experiencederythematous, scaly rashes. Gege is avoidant of all shellfish as she passedout after eating lobster. She eats finned fish without issue. Gege is seen bycardiology due to a history of PVCs, currently on nebivolol. She lives with tanya and [id number]. She denies a history of physician-diagnosed allergic rhinitis, recurrent sinusitis or otitis media, recurrent pneumonia, asthma/RAD, eczema, food allergies, urticaria/angioedema, medication allergies, contact dermatitis, latex allergy, eosinophilic esophagitis or stinging insect hypersensitivity. Today, she reports no fevers, chills, night sweats or other constitutional symptoms.?*Allergic Rhinoconjunctivitis:?Allergic rhinitis?Do you have or suspect you have allergic rhinitis (itchy eyes, sneezing, congestion or runny nose triggered by allergies)??No ?Eyes?Specific affected area:?both (bilateral) ?Occurence??intermittent ?How frequent??daily ?When does this mostly occur??anytime ?Symptoms:?itching,watering,redness,sensitive to light,swelling of the lids ?Nose?Specific area affected:?both (bilateral) ?Occurence??intermittent ?How frequent??daily ?When does this mostly occur??anytime ?Symptoms??itching,congestion,sneezing jags,postnasal drainage ?Sinuses?Do you have sinus pain??No ?Have you lost sense of taste??No ?Have you been treated with antibiotics for sinusitis??No ?Have you ever had a CT scan or xray??Yes ?Where??[facility] ?When??06/2024 ?Have you ever undergone sinus surgery??Yes ?Where[facility] ?Cough?Frequency:?daily ?Is phlegm produced??No ???*Asthma:?Cough?Do you have a recurrent cough??Yes ?How often do you cough??daily ?What triggers your cough??exercise,tree pollen,grass pollen,weed pollen,cold air,sinus infections,house dusting or vacuuming,weather changes,bronchitis,mold,damp or musty areas,cleansers,spring (season),karine (season),fall (season),winter (season) ?Is your cough more bothersome at night??No ?Is sputum produced??No ?Wheezing?Do you have recurrent wheezing or a history of wheezing sometime in your life??Yes ?Did you have symptoms of asthma as a child??No ?Did you have frequent respiratory infections as a child??No ?Were you ever hospitalized in the first 12 months of life for a respiratory infection in childhood??No ?Do you still have wheezing??Yes ?How often do you get it??2-5 times per year ?Is your wheezing changing??same ?What triggers your wheezing??exercise,bronchitis ?Do you take an inhaled, rescue bronchodilator medication??Yes ?Name:?Albuterol,Other ?Is your bronchodilator used daily??Yes ?How often??twice a daily ?When was your last dose of an inhaled bronchodilator??past few months ?Have you taken oral steroids (Prednisone or Medrol) in the past??Yes ?How many times throughout your entire life??9 ?How many times in the last year??4 ?Nocturnal Symptoms?Do you have any of the following respiratory symptoms at night??coughing that interrupts sleep ?Physical Performance?How many blocks can you walk? (Enter 99 for unlimited)?1 ?How many flights of stairs can you climb without stopping? (Enter 99 for unlimited)?1 ?If there are limitations, what symptoms limit further activity??shortness of breath,fatigue,leg cramps,other ?Do you have any of the following additional problems??restless sleep ?Effective treatments for cough and or wheezing?Rescue inhaler or nebulizer treatment:?ProAir,Other ?Oral steroid:?Prednisone ?Inhaled steroid/LABA combinations:?Advair HFA ?Antireflux medication:?pantoprazole (Protonix) ???*Urticaria:?Urticaria (hives)?Do you have recurrent hives??No ???*Angioedema:?Angioedema (swelling)?Do you have recurrent swelling (angioedema)??No ???*Atopic dermatitis:?Atopic dermatitis - Eczema?Do you have chronic or recurrent atopic dermatitis or eczema??No ???*Other Rash and Contact Dermatitis:?Other rashes and contact dermatitis?Have you ever had any other form of rash or contact dermatitis??No ???*Prior Evaluations and Treatments:?Prior evaluations and treatments?Have you been evaluated by another physician for allergic rhinitis, cough, wheezing, asthma, urticaria, angioedema, atopic dermatitis or eczema??No ?Have you undergone testing for any aforementioned conditions or symptoms??No ?Have you ever been on allergy immunotherapy??No ?Have you ever passed out during a blood draw, shot or vaccination??No ?Last dose of antihistamine:?Has your antihistamine been effective in controlling any of your symptoms??No ?Do you take any other psychiatric medication??No ???*Infections:?Vaccination History?For children, are childhood vaccines up to date:?Yes ?Have you ever had a flu shot??No ?Have you ever had a pneumococcal vaccine (JGF-Feohpbh-Irhattqew)??No ?Have you ever had a tetanus vaccine (DHih-Oxpo-Zo)??Yes ?Ear Infections?Do you have frequent ear infections??No ?Sinusitis (Sinus infections)?Do you have frequent episodes of sinusitis??No ?Sinus Symptoms and Surgery?Do you have chronic or recurrent sinus symptoms??No ?Do you have sinus pain??No ?Do you have a loss of sense of taste??No ?Have you ever had a sinus CT or X-Ray??No ?Have your ever undergone sinus surgery??No ?Bronchitis History?Do you get frequent bronchitis??Yes ?How many episodes in your entire life??5 ?How many episodes over the past 12 months??1 ?Have you been treated with antibiotics for bronchitis??Yes ?How often in the past year??once ?Were antibiotics oral, IV or both??oral ?Have you been hospitalized for treatment??No ?Did you require any other treatment??oral steroids ?Have you been seen by an inside sales director or lab pack chemist for recurrent bronchitis??No ?Pneumonia History?Have you ever had pneumonia or recurrent pneumonia??Yes ?How many episodes in your entire life??2 ?How many episodes in the past 12 months??0 ?Have you been treated with antibiotics for pneumonia??Yes ?Have you been hospitalized for treatment??No ?Have you been seen by an inside sales director or lab pack chemist to evaluate your immune system function for recurrent pneumonia?No ?Skin and Other Infections?Do you get frequent skin infections (cellulitis)??Yes ?How many episodes in your entire life??9 ?How many episodes in the past 12 months??1 ?Have you been treated with antibiotics for cellulitis??Yes ?How often in the past year??once ?Were antibiotics oral, IV or both??oral ?Have you been hospitalized for treatment??No ?Have you been seen by an inside sales director or lab pack chemist to evaluate your immune system function for recurrent skin infections??No ?Do you get any other frequent infections??No ???*Food allergy:?Food Allergy?Do you currently have or have you ever had any proven or suspected food allergies??Yes ?What food(s)??shellfish ?How quickly do symptoms come on after food ingestion??seconds ?Have you ever been hospitalized or treated urgently for symptoms of a severe allergic reaction (anaphylaxis)??Yes ?Do you carry self-injectable epinephrine for your prior reaction(s)??No ?Have you previously seen an inside sales director for evaluation of possible food allergy??No ???*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?Do you have difficulty swallowing foods or have you previously needed to have your esophagus dilated for food impaction or 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??Yes ?What part of the GI tract is involved??esophagus ?What symptoms have been caused by your eosinophilic GI disease??difficulty swallowing liquids,difficulty swallowing solids ?When did symptoms start??5-10 years ago ?Was endoscopy performed to verify the diagnosis??Yes ?What tests were performed??Upper endoscopy (EGD),Dilation of esophagus ?Have you ever been evaluated by an inside sales director for possible allergies 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??No ???*Stinging Insects:?Insect Reaction(s)?Have you ever experienced a stinging insect reaction??Yes ?What type of stinging insect??unknown ?Was the reaction:?small local - where sting occurred ?What symptoms were experienced??syncope (passing out) ?Were you taken to the ER for evaluation??Yes ?Have you been previously prescribed an epinephrine autoinjector??No ?Have you previously seen an inside sales director for evaluation of possible stinging insect allergy??No ?Have you been treated for your stinging insect reaction with immunotherapy??No ???*Medication allergy:?Medication Allergy?Do you feel you are allergic to any medications??Yes ?What type of medication??antibiotic (Penicillin or Amoxicillin or other antimicrobial),analgesic (NSAID or Ibuprofen or Codeine or Morphine or other analgesic) ?How was the medication administered??oral,IV ?What was the medication administered for??pain,surgery,other diagnosis ?What symptom(s) did the medication cause??shortness of breath,vomiting,hypotension (low blood pressure) ?If antibiotic, what type:?penicillin-derivative ?If analgesic, what type:?opioid ?Have you been evaluated by an inside sales director previously for possible drug allergy??No * ROS:?ALLERGY:?Positive?per the HPI and history, otherwise unremarkable.?runny nose?Yes.?scratchy throat?Yes.?itchy eyes?Yes.?ear fullness?No.?sinus congestion?Yes.?SPECIAL SENSES:?Positve for?none.?cataracts?No.?glaucoma?No.?loss of hearing?No.?itching in ears?No.?ringing in ears?Yes.?loss of balance?Yes.?loss of smell?No.?dry eyes?Yes.?excessive tearing?Yes.?itching eyes?Yes.?loss of taste?No.?conjunctivitis?No.?ear infections?No.?CONSTITUTIONAL:?weight gain?No.?loss of appetite?No.?fever?No.?weakness?Yes.?weight loss?Yes.?fatigue?Yes.?night sweats?Yes.?Positive for?none.?ENT:?cold?Yes.?cough?Yes.?epistaxis?No.?hearing loss?Yes.?change in voice?No.?sore throat?No.?ringing in ears?No.?sinus pain?No.?Positive?per the HPI and history, otherwise unremarkable.?RESPIRATORY:?shortness of breath?Yes.?chest congestion?Yes.?cough?Yes.?Positive?per the HPI and history, otherwise unremakable.?OPHTHALMOLOGY:?diminished vision?No.?eye irritation?Yes.?drainage from eyes?Yes.?blurring of vision?Yes.?Positive for?per the HPI and history, otherwise unremarkable.?itching?Yes.?sensitivity to light?Yes.?discharge?No.?watering?Yes.?swelling of the eyelids?Yes.?redness?Yes.?ENDOCRINOLOGY:?polydipsia?No.?polyuria?No.?weight loss?Yes.?sleep disturbance?Yes.?cold intolerance?Yes.?heat intolerance?No.?diabetes?No.?Positive for?none.?CARDIOLOGY:?chest pain?Yes.?palpitations?Yes.?leg edema?Yes.?dizziness?No.?shortness of breath?Yes.?Positive for?none.?GASTROENTEROLOGY:?dysphagia?Yes.?abdominal pain?Yes.?nausea?Yes.?vomiting?Yes.?constipation?Yes.?diarrhea?Yes.?blood in stool?No.?indigestion?No.?hemorrhoids?No.?Positive for?none.?UROLOGY:?difficulty urinating?No.?blood in urine?No.?frequent urination?Yes.?urinary incontinence?No.?recurrent UTI?No.?Positive for?none.?DERMATOLOGY:?rash?No.?mole?Yes.?lumps?No.?dry or sensitive skin?Yes.?hives (urticaria)?No.?acne?No.?skin cancer?Yes.?Positive for?per the HPI and history, otherwise unremakable.?NEUROLOGY:?headache?No.?tingling numbness?Yes.?seizures?No.?insomnia?Yes.?memory loss?Yes.?dizziness?No.?gait abnormality?No.?Positive for?none.?HEMATOLOGY/LYMPH:?Positive for?none.?MUSCULOSKELETAL:?joint swelling?Yes.?joint pain?Yes.?leg cramps?Yes.?joint stiffness?Yes.?sciatica?Yes.?osteoporosis?No.?fracture?Yes.?carpal tunnel?No.?gout?No.?Positive for?none.?PSYCHOLOGY:?high stress level?No.?depression?No.?sleep disturbances?Yes.?suicidal ideation?No.?eating disorder?No.?mental or physical abuse?No.?anxiety?Yes.?Positive for?none.?FEMALE REPRODUCTIVE:?heavy periods?No.?hot flashes?Yes.?abnormal vaginal discharge?No.?sexually active?No.?infertility?No.?frequent yeat infections?No.?pelvic pain?No.?breast pain?No.?nipple discharge No.?Are you ??No.?Are you planning on a future pregancy??No.?All other review of systems per the HPI and history, otherwise unremarkable. * Medical History:? * Surgical History:?TOTAL KNEE ARTHROPLASTY RECHANNELING OF ARTERY REMOVAL OF GALLBLADDER KNEE ARTHROSCOPY/SURGERY PARTIAL HYSTERECTOMY LEFT BREAST BIOPSY * Hospitalization/Major Diagno stic Procedure:?No Hospitalization History. * Family History:?Father: dece ased, No, diagnosed with Diabetes mellitus type I.?Mother: Yes, diagnosed with Diabetes mellitus type I.?Paternal Grand Father: No.?Paternal Grand Mother: No.?Maternal Grand Father: No.?Maternal Grand Mother: No.?Siblings: Yes.?Children: Yes.? Mother: Depression Father: Acute Myocardial Infarction. * Social History:?Marital Status?What is your marital status?Alcohol Screening?Do you ever drink alcoholic beverages??No ???Smoking?Have you ever smoked tobacco:?current smoker ?Additional Findings: Tobacco User?Light cigarette smoker ((1-9 cigs/day) ?How old were you when you started smoking??19 ?How often do you smoke cigarettes??every day ?How soon after you wake up do you smoke your first cigarette??after 60 minutes ?How many cigarettes do you smoke per day??6 to 10 ?Are you interested in quitting??Thinking about quitting ?Are you a :?light tobacco smoker ???Recreational drug use?Have you ever used recreational drugs??No ???Details on consumption of certain products?Do you regularly consume products with aspartame; Equal or NutraSweet??No ?Do you regularly consume products with artificial coloring??No ?Have you ever noticed worsening of your rash with these food items??No ???Exercise?What kind(s) of exercise do you perform regularly??walking ?How often do you perform this exercise??daily ???Are any of the following personal care products containing fragrance, dye or preservatives used regularly?Shampoo:?Yes ?Conditioner:?Yes ?Soap:?No ?Fabric Softener:?No ?Deodorant:?No ?Perfume, cologne, after shave:?No ?Air freshners or other scented products:?No ?Hair coloring dyes or rinses:?No ?Other:?No ???Occupation?Are you currenly employed??No ?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 ?Have you had any job with high exposure to fumes, chemicals, dust or other noxious substances??No ?Are you currently a student??No ???Environmental History?Living environment:?with relatives ?Where is the home located[place] ?How long have you lived there??5 years or more ?How many people live in the home??5 ???Home description?Basement:?Yes ?Any water damage in basement??No ?Smokers in the home??No ?Smokers outside the home??Yes ?Air Conditioning??Yes ?Central Air??Yes ?Forced air heating??Yes ?Gas or electric??gas ?Fireplace??Yes ?Used how often??winter months only ?Wood burning stove??Yes ?Used how often??monthly ?Do you vacuum the home??Yes ?Air purification systems??Yes ?Is it a HEPA (high-efficiency particulate air filter)??Yes ?Pillow and mattress dust-proof encasings??Yes ?Do you use a humidifier??No ?Do you own any pets??Yes ?What kind(s)? (click all that apply)?dog ?Where do your pets sleep??anywhere in the house ?Fabric softeners used??No ?Plants in the home??No ?Is there carpeting in your bedroom??Yes ?Do you have lugt-bi-taae carpeting??Yes ?What is the age of your mattress (years)??4 ?What material(s) are used to manufacture your bedding and pillow??feather,natural fiber (e.g. cotton) ?What is the age of your pillow (years)??3 ?What material are your bedding items made of??natural fiber (e.g. cotton) ?Do you sleep with quilts or blankets or a duvet??Yes ?What material??natural fiber (e.g. cotton) ?How many dogs??2 ???Tobacco Control (Standard)?Tobacco use:?Current smoker * Medications:?TakingRivaroxab an 20 MG Tablet 1 tablet with food Orally Once a day Pantoprazole Sodium 20 MG Tablet Delayed Release 1 tablet 1/2 to 1 hour before morning meal Orally Once a day Ondansetron 4 MG Tablet Disintegrating 1 tablet on the tongue and allow to dissolve Orally Once a day Nystatin 671108 UNIT/GM Cream 1 application Externally Twice a day Nebivolol HCl 5 MG Tablet 1 tablet Orally Once a day Levothyroxine Sodium 88 MCG Tablet 1 tablet in the morning on an empty stomach Orally Once a day Lactobacillus - Capsule as directed Orally Folic Acid 1 MG Tablet 1 tablet Orally Once a day Fluticasone Propionate 50 MCG/ACT Suspension 1 spray in each nostril Nasally Twice a day Advair HFA 230-21 MCG/ACT Aerosol 2 puffs Inhalation Twice a day Ferrous Sulfate 325 (65 Fe) MG Tablet 1 tablet Orally Three times a Week Medication List reviewed and reconciled with the patientTaking Rivaroxaban 20 MG Tablet 1 tablet with food Orally Once a day Taking Pantoprazole Sodium 20 MG Tablet Delayed Release 1 tablet 1/2 to 1 hour before morning meal Orally Once a day Taking Ondansetron 4 MG Tablet Disintegrating 1 tablet on the tongue and allow to dissolve Orally Once a day Taking Nystatin 735859 UNIT/GM Cream 1 application Externally Twice a day Taking Nebivolol HCl 5 MG Tablet 1 tablet Orally Once a day Taking Levothyroxine Sodium 88 MCG Tablet 1 tablet in the morning on an empty stomach Orally Once a day Taking Lactobacillus - Capsule as directed Orally Taking Folic Acid 1 MG Tablet 1 tablet Orally Once a day Taking Fluticasone Propionate 50 MCG/ACT Suspension 1 spray in each nostril Nasally Twice a day Taking Advair HFA 230-21 MCG/ACT Aerosol 2 puffs Inhalation Twice a day Taking Ferrous Sulfate 325 (65 Fe) MG Tablet 1 tablet Orally Three times a Week Medication List reviewed and reconciled with the patient * Allergies:?Codeine: anaphyla xisHYDROmorphone: rashLatex: rashlevoFLOXacin: rashno[Allergies Verified] Objective: * Vitals:?BP:110/72mm Hg, HR:1 05/min, Pulse Oximetry:97%, ACT:10, Ht: 64 in, Wt: 181.2 lbs, BMI:31.1Index. * Examination: ???General examination: ?General appearance:?pleasant, well-developed, well-nourished, female,?in no apparent distress, speaking in full sentences.?HEENT:?conjunctiva are normal bilaterally, no swelling noted surrounding orbits,?TMs without evidence of acute infection, turbinates 2+ swollen and pale inferiorly bilaterally, clear rhinorrhea is present, no polyps noted, no septal perforation, posterior oropharynx is clear without exudates, erythema on pharyngeal wall, no exudates, no tongue swelling, and uvula is midline.?Oral cavity:?normal, no lesions.?Breasts :?not performed.?Heart:?RRR, S1-S2, no murmurs, no rubs, no gallops.?Lungs:?clear to auscultation in all lung leiva, no wheezes, no crackles, no rhonchi.?Neurologic exam:?unremarkable.?Skin:?normal, no visible rash, dermatographism, urticaria, angioedema.?Back:?normal.?Extremities:?normal ROM, no clubbing, no cyanosis, no edema.?Genitalia:?not performed.? Assessment: * Assessment: 1.?Localized swelling, mass and lump, head - R22.0 (Primary)???2.?Allergy status to unspecified drugs, medicaments and biological substances - Z88.9???3.?Other urticaria - L50.8???4.?Hypertrophy of nasal turbinates - J34.3?? 5.?Chronic rhinitis - J31.0???6.?Shortness of breath - R06.02???7.?Toxic effect of venom of bees, accidental (unintentional), initial encounter - T63.441A???8.?Rash and other nonspecific skin eruption - R21???9. Allergy status to penicillin - Z88.0???10.?Other heart disorders in diseases classified elsewhere - I52??? Plan: * Treatment: 2.?Allergy status to unspeci fied drugs, medicaments and biological substances? Notes: See plan above ?? 3.?Other urticaria?LAB: TRYPTASE Notes: Also with reports of urticaria with other medications, will order tryptase level to assess for mast cell conditions. Consider urine studies, however will obtain baseline tryptase first?? 4.?Hypertrophy of nasal turb inates?LAB: RESPIRATORY ALLERGY PROFILE REGION VIII: [place], [place] Notes: Gege presents with upper airway symptoms concerning for uncontrolled atopic disease. She has two dogs in her home. She has trialed Zyrtec in the past without benefit. - Discussed SPT, however will obtain ImmunoCaps first as Gege is being sent for laboratory work. - Consider returning for SPT pending laboratory review?? 5.?Chronic rhinitis? Notes: See plan above ?? 6.?Shortness of breath? Continue Advair HFA Aerosol, 230-21 MCG/ACT, 2 puffs, Inhalation, Twice a day;?Start Albuterol Sulfate HFA Aerosol Solution, 108 (90 Base) MCG/ACT, 2 puffs as needed, Inhalation, every 4 hrs, 30 days, 1, Refills 0;?Start AeroChamber MV Miscellaneous, -, as directed Any adult spacer, 30 days, 1, Refills 11.?Imaging: Spirometry (Performed Date - 08/10/2024)?Abnormal ? Value Reference Range ?SpiroPreBronchodilator_FVC 2.45 * ?SpiroPreBronchodilator_FEF25_75 0.6 * ?SpiroPreBronchodilator_FEV1 1.31 * ?SpiroPrecentPredictionPre_FEF25_75 26.2 * ?SpiroPrecentPredictionPre_FEV1 55 * ?SpiroPrecentPredictionPre_FEV1_OVER_FVC 68.7 * ?SpiroPrecentPredictionPre_FVC 80.9 * ?SpiroPredicted_FEF25_75 2.29 * ?SpiroPreBronchodilator_FEV1_OVER_FVC 53.53 * ?SpiroPreBronchodilator_PEF 2.45 * ?SpiroPredicted_FVC 3.03 * ?SpiroPredicted_FEV1 2.38 * ?SpiroPredicted_FEV1_OVER_FVC 77.87 * ?SpiroPredicted_PEF 5.66 * Breann Chavira 08/12/2024 07:51:01 AM DISTRICT WILDLIFE MANAGER > Moderately severe obstruction suggested by reduced FEV%, normal FVC and borderline FEV1. FVL shows decreased PEFR, scalloping seen throughout exhalation, decreased flow rates throughout exhalation. Advanced lung age. Consider BD challenge, deferred today. Consider full PFT with [facility], placed on list. Notes: Gege reports history of COPD. She denies prior pulmonary evaluation. She was prescribed Advair by her PCP, however admits to not starting it. She endorses occasional shortness of breath. She also has an albuterol inhaler, denies use, however. She is a current smoker, smokes approximately 5 cigarettes per day. She has been smoking for > 40 years. She is up-to-date on CT scans. - Spirometry obtained that showed moderately severe obstruction suggested by reduced FEV%, normal FVC and borderline FEV1. Deferred BD challenge due to time constraints. - Due to Gege's history of COPD, discussed evaluation by pulmonology. Gege is in agreement. Will obtain full PFT with [facility] device in the meantime. - Start Advair as prescribed by her PCP, proper demonstration provided today. - Gege is to use her rescue inhaler as-needed. Needs AAP next visit. - Follow-up in 4 weeks for spirometry and further evaluation and management??7.?Toxic effect of venom of bees, accidental (unintentional), initial encounter? Start EPINEPHrine Solution Auto-injector, 0.3 MG/0.3ML, as directed, Injection, as needed, 30 days,1, Refills 0.?? Notes: Gege reports being stung by a bee when she was in her twenties. Reports being stung, recalls significant swelling, then she passed out. States she awoke surrounded by medical personnel, otherdetails are not clear. - Plan to return for venom testing. - Gege is to carry an AIE at all times. Indications and proper use discussed at length. - Follow-up as above??8.?Rash and other nonspecific skin eruption? Notes: Gege reports erythematous and dry rashes that occurs with various topical products and fragrances. - Consider patch testing, discuss further next visit??9.?Allergy status to penicillin? Notes: Gege reports passing out while taking penicillin in the past, further details are not clear. - Consider returning for penicillin testing, Gege is considering at this time??10.?Other heart disorders in diseases classified elsewhere? Notes: Gege reports history of PVCs, currently prescribed a beta-jerry. If Gege pursues immunotherapy, discuss this further?? * Procedures:?Time (Provider Encounter):?Time Attestation ?This new patient encounter took more than:?more than 60 minutes (06127) ?Tasks performed during this encounter include:?taking a history, reviewing the patient's review of systems, performing the physical examnation, reviewing outside medical records, counseling the patient on their diagnoses and chronic management, discussed risks, benefits and alternatives to care, documenting in the EHR, This time calculation excludes any time associated with the separately identifiable medical procedures performed/described within this note (e.g. spirometry/flow volume loop, injections, skin testing, etc...)? * Procedure Codes:?55132 SELF- MGMT EDUC & TRAIN, 1 [id number] PT-FOCUSED HLTH RISK [id number] DOC MEDS VERIFIED W/PT OR [id number] RESPIRATORY FLOW VOLUME [id number] Breann Chavira - Incident-to * Preventive Medicine:? ??Counseling:?Diet?as tolerated.?Exercise?Continue activity as usual.?Medication instruction:?Watch for side effects of prescribed medications, Nasal steroid/antihistamine instruction: avoid septum, Injectable epinephrine education and instruction w/ discussion of signs and symptoms of anaphylaxis and reasons to seek urgent or emergent care.?Smoking?Patient counselled on the dangers of tobacco use and urged to quit.?08/10/2024 ?Education:?GENERAL EDUCATION: Our staff spent an additional 30 minutes in direct contact with the patient educating them on their current diagnoses and proper treatment and prevention of symptoms and the proper use of medications.?Patient education material?sent to portal??Yes ?Care goal follow up plan?BMI management provided?Yes ?Above Normal BMI Follow-up?Dietary management education, guidance, and counseling * Follow Up:?4 Weeks (Reason: Evaluation and Management, Laboratory Review, Spirometry/Flow Volume Loop) * Billing Information: * Visit Code:? 60555 Office Visit, New Pt., Level 5. Modifiers: 25 * Procedure Codes:? 52524 SELF-MGMT EDUC & TRAIN, 1 PT. [address] PT-FOCUSED HLTH RISK ASSMT. G8427 DOC MEDS VERIFIED W/PT OR RE. A4617 Mouthpiece. 18942 RESPIRATORY FLOW VOLUME LOOP. 34565 Breann Chavira - Incident-to. * RICT WILDLIFE MANAGER Sign off status: Completed true * Provider:?VALERIE Black-C Suraj e:?08/10/2024 Generated for Neal gonzalez/Randall/eTransmitting on:?09/04/2024 05:07 PM DISTRICT WILDLIFE MANAGER History and Physical Notes * HPI (History of Present Illness) Category Sub-Category Detail Notes Category Not es *Introduction I had the pleasure of seeing Ggee Vidal, a 64-year-old female with past medical history significant for arthritis s/p knee replacement, diverticulitis, COPD, hyperlipidemia and GERD, who presents for allergy evaluation and management. She presents in consultation with her PCP, Dr. Vu. She is alone for today's visit. Gege presents due to concerns for multiple medication allergies. She presents in consultation with her PCP, Dr. Vu. She is alone for today's visit. Gege reports that last month she underwent cataract surgery in her left eye. Following this procedure she was prescribed Maxitrol ocular drops. After a couple of days she began experiencing swelling, watering and erythema surround her left eye. She was seen by her brain picker, who recommended stopping Maxitrol and started her on a prednisolone eye drop, she was also using Refresh ocular lubricant. She was, once again, seen by her brain picker who started a different prednisolone eye drop. Symptoms persistedand she reports the swelling worsened, due to this she was seen at [facility] where she was given steroids and antihistamines, also sent home on prednisone and Benadryl. She reports she continued to use the second prednisolone drop she was prescribed. Several days later she was seen once again by her brain picker, who stopped the prednisolone ocular drop and recommended Refresh preservative-free drops. After finishing her 7-day course of oral prednisone prescribed at the ER her symptoms resolved. She feels her left eye is still mildly swollen. Gege reports a history of various medication allergies. At age 18 she was prescribed penicillin and codeine due to a presumed infection, for which she passed out and developed swelling, other details are not clear. She has been avoidant of both since. Gege reports generalized erythema and itching with vancomycin. She is avoidant of morphine because it dropped my blood pressure, again additional details are not clear. Gege endorses upper airway symptoms concerning for uncontrolled atopic disease. Descriptors of her symptoms are outlined below. She has taken Zyrtec previously without benefit. There are two dogs in her home. She has never undergone allergy testing or received allergen immunotherapy. Gege endorses occasional shortness of breath. Reports history of COPD, currently smokes approximately 5 cigarettes daily. She has been smoking for over 40 years. She was recently prescribed Advair by her PCP, however she has not started this medication. Also carrying a rescue inhaler. No history of hospitalizations due to lower airway symptoms. She has annual CT scans of her lungs completed by oncology due to her history of cervical and skin cancer. No prior pulmonary evaluation. She also reports history of swelling and syncope following a bee sting, this was over twenty years ago. She does not recall details, is only aware of being stung and waking up surrounded by medical personnel. She has not been stung since. She does not carry an AIE. Additionally, Gege reports long history of sensitive skin. She is cautious with various fragrances that she uses. In the past has experienced erythematous, scaly rashes. Gege is avoidant of all shellfish as she passed out after eating lobster. She eats finned fish without issue. Gege is seen by cardiology due to a history of PVCs, currently on nebivolol. She lives with her son and lownarey-jr-ojn. She denies a history of physician-diagnosed allergic rhinitis, recurrent sinusitis or otitis media, recurrent pneumonia, asthma/RAD, eczema, food allergies, urticaria/angioedema, medication allergies, contact dermatitis, latex allergy, eosinophilic esophagitis or stinging insect hypersensitivity. Today, she reports no fevers, chills, night sweats or other constitutional symptoms *Allergic Rhinoconjunctivitis Eyes Specific affected area:: both (bilateral) Occurence?: intermittent ?How frequent?: daily When does this mostly occur?: anytime Symptoms:: itching,watering,redness,sens itive to light,swelling of the lids Cough Frequency:: daily Is phlegm produced?: No Nose Specific area affected:: both (b ilateral) Occurence?: intermittent ?How frequent?: daily When does this mostly occur?: anytime Symptoms?: itching,congestion,sneezing j ags,postnasal drainage Sinuses Do you have sinus pain?: No Have you lost sense of taste?: No Have you been treated with antibiotics f or sinusitis?: No Have you ever had a CT scan or xray?: Ye s ?Where?: [facility] ?When?: 06/2024 Have you ever undergone sinus surgery?: Yes ?Where?: [facility] Allergic rhinitis Do you have or suspe ct you have allergic rhinitis (itchy eyes, sneezing, congestion or runny nose triggered by allergies)?: No *Asthma Cough Do you have a recurrent cough?: Yes ?How often do you cough?: daily ?What triggers your cough?: exercise,tree pollen,grass pollen,weed pollen,cold air,sinus infections,house dusting or vacuuming,weather changes,bronchitis,mold,damp or musty areas,cleansers,spring (season), (season),fall (season),winter (season) ?Is your cough more bothersome at night? : No ?Is sputum produced?: No Effective treatments for cou gh and or wheezing Rescue inhaler or nebulizer treatment:: ProAir,Other Oral steroid:: Prednisone Inhaled steroid/LABA combinations:: Adva ir HFA Antireflux medication:: pantoprazole (Pr otonix) Wheezing Do you have recurren t wheezing or a history of wheezing sometime in your life?: Yes Did you have symptoms of asthma as a chi ld?: No Did you have frequent respiratory infect ions as a child?: No Were you ever hospitalized i n the first 12 months of life for a respiratory infection in childhood?: No Do you still have wheezing?: Yes ?How often do you get it?: 2-5 times per year Is your wheezing changing?: same What triggers your wheezing?: exercise,b ronchitis Do you take an inhaled, rescue bronchodi lator medication?: Yes ?Name:: Albuterol,Other ?Is your bronchodilator used daily?: Yes ??How often?: twice a daily ?When was your last dose of an inhaled b ronchodilator?: past few months Have you taken oral steroids (Prednisone or Medrol) in the past?: Yes ?How many times throughout your entire l carlito?: 9 ?How many times in the last year?: 4 Nocturnal Symptoms Do you have any of t he following respiratory symptoms at night?: coughing that interrupts sleep Physical Performance How many blocks can you wal k? (Enter 99 for unlimited): 1 How many flights of stairs c an you climb without stopping? (Enter 99 for unlimited): 1 If there are limitations, wh at symptoms limit further activity?: shortness of breath,fatigue,leg cramps,other Do you have any of the following additio nal problems?: restless sleep *Infections Vaccination History For children , are childhood vaccines up to date:: Yes Have you ever had a flu shot?: No Have you ever had a pneumococcal vaccine (BSB-Jmdvtvz-Yogcizzwf)?: No Have you ever had a tetanus vaccine (DTa p-Tdap-Td)?: Yes Ear Infections Do you have frequent ear infecti ons?: No Sinusitis (Sinus infections) Do you have frequen t episodes of sinusitis?: No Sinus Symptoms and Surgery Do you have chronic o r recurrent sinus symptoms?: No Do you have sinus pain?: No Do you have a loss of sense of taste?: N o Have you ever had a sinus CT or X-Ray?: No Have your ever undergone sinus surgery?: No Bronchitis History Do you get frequent bronchiti s?: Yes ?How many episodes in your entire life?: 5 ?How many episodes over the past 12 carline hs?: 1 ?Have you been treated with antibiotics for bronchitis?: Yes ??How often in the past year?: once ??Were antibiotics oral, IV or both?: or al ?Have you been hospitalized for treatmen t?: No ?Did you require any other treatment?: o ral steroids ?Have you been seen by an al lergist or lab pack chemist for recurrent bronchitis?: No Pneumonia History Have you ever had pneumonia or recurrent pneumonia?: Yes ?How many episodes in your entire life?: 2 ?How many episodes in the past 12 months ?: 0 ?Have you been treated with antibiotics for pneumonia? : Yes ??Have you been hospitalized for treatme nt?: No ?Have you been seen by an al lergist or lab pack chemist to evaluate your immune system function for recurrent pneumonia: No Skin and Other Infections Do you get jose francisco quent skin infections (cellulitis)?: Yes ?How many episodes in your entire life?: 9 ?How many episodes in the past 12 months ?: 1 ?Have you been treated with antibiotics for cellulitis? : Yes ??How often in the past year?: once ??Were antibiotics oral, IV or both?: or al ??Have you been hospitalized for treatme nt?: No ?Have you been seen by an al lergist or lab pack chemist to evaluate your immune system function for recurrent skin infections?: No Do you get any other frequent infections ?: No *Other Rash and Contact Dermatitis Other rashes and contact dermatitis Have you ever had any other form of rash or contact dermatitis?: No *Atopic dermatitis Atopic dermatitis - Eczema Do you have chronic or recurrent atopic dermatitis or eczema?: No *Urticaria Urticaria (hives) Do you have re current hives?: No *Medication allergy Medication Allergy Do you fe el you are allergic to any medications? : Yes ?What type of medication?: a ntibiotic (Penicillin or Amoxicillin or other antimicrobial),analgesic (NSAID or Ibuprofen or Codeine or Morphine or other analgesic) ?How was the medication administered?: o ral,IV ?What was the medication administered fo r?: pain,surgery,other diagnosis ?What symptom(s) did the med ication cause?: shortness of breath,vomiting,hypotension (low blood pressure) If antibiotic, what type:: penicillin-de rivative If analgesic, what type:: opioid Have you been evaluated by a n inside sales director previously for possible drug allergy?: No *Stinging Insects Insect Reaction(s) Have you ev er experienced a stinging insect reaction? : Yes ?What type of stinging insect?: unknown ?Was the reaction:: small local - where sting occurred ?What symptoms were experienced?: syncop e (passing out) ?Were you taken to the ER for evaluation ?: Yes ?Have you been previously prescribed an epinephrine autoinjector?: No ?Have you previously seen an inside sales director for evaluation of possible stinging insect allergy?: No ?Have you been treated for y our stinging insect reaction with immunotherapy?: No *Prior Evaluations and Treatments Prior evaluations and treatments Have you been evaluated by another physician for allergic rhinitis, cough, wheezing, asthma, urticaria, angioedema, atopic dermatitis or eczema?: No Have you undergone testing for any afore mentioned conditions or symptoms?: No Have you ever been on allergy immunother apy?: No Have you ever passed out during a blood draw, shot or vaccination?: No Last dose of antihistamine: Has your ant ihistamine been effective in controlling any of your symptoms?: No Do you take any other psychiatric medica tion?: No *Food allergy Food Allergy Do you currently have or have you ever had any proven or suspected food allergies?: Yes ?What food(s)?: shellfish ?How quickly do symptoms come on after f ood ingestion?: seconds ?Have you ever been hospital ized or treated urgently for symptoms of a severe allergic reaction (anaphylaxis)?: Yes ?Do you carry self-injectable epinephrin e for your prior reaction(s)?: No ?Have you previously seen an inside sales director for evaluation of possible food allergy?: No *Eosinophilic GI Eosinophilic Gastroi ntestinal Disease Do you have difficulty swallowing foods or have you previously needed to have your esophagus dilated for food impaction or 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?: Yes ?What part of the GI tract is involved?: esophagus ?What symptoms have been cau sed by your eosinophilic GI disease?: difficulty swallowing liquids,difficulty swallowing solids ?When did symptoms start?: 5-10 years ag o ?Was endoscopy performed to verify the d iagnosis?: Yes ??What tests were performed?: Upper endo scopy (EGD),Dilation of esophagus ?Have you ever been evaluate d by an inside sales director for possible allergies 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?: No *Angioedema Angioedema (swelling) Do you hav e recurrent swelling (angioedema)?: No Examination Category Sub-Category Detail Notes Category Not es General examination HEENT: conjunctiva are normal bilaterally, no swelling noted surrounding orbits, TMs without evidence of acute infection, turbinates 2+ swollen and pale inferiorly bilaterally, clear rhinorrhea is present, no polyps noted, no septal perforation, posterior oropharynx is clear without exudates, erythema on pharyngeal wall, no exudates, no tongue swelling, and uvula is midline Heart: RRR, S1-S2, no murmu rs, no rubs, no gallops Lungs: clear to auscultatio n in all lung leiva, no wheezes, no crackles, no rhonchi Extremities: normal ROM, no clubb ing, no cyanosis, no edema General appearance: pleasant, well-devel oped, well-nourished, female, in no apparent distress, speaking in full sentences Skin: normal, no visible r sejal, dermatographism, urticaria, angioedema Neurologic exam: unremarkable Oral cavity: normal, no lesions Breasts : not performed Back: normal Genitalia: not performed
--- OUTSIDE RECORDS SUMMARY | 2024-09-04 17:07 | XMS_ITS | Patient Health Record ---
Author Organization [facility] Address [address] [place] [address] Care Team Providers Care Senior Communications Engineer Name Role Phone Eris Vu Primary Care Provider Franky Zamora Unavailable [phone] Breann Chavira Unavailable [phone] Allergies Allergen (clinical drug ingredient) Drug/Non Drug [...] 3.03 SpiroPredicted_FEV1 2.38 SpiroPredicted_FEV1_OVER_FVC 77.87 SpiroPredicted_PEF 5.66 Reason For Referral No Information Medications Medication SIG (Take, Route, Frequency, Duration) Notes Start Date End Date Status Lactobacillus - as directed Orally Active Levothyroxine Sodium 88 MCG 1 tablet in the morning on an empty stomach Orally Once a day Active Folic Acid 1 MG 1 tablet Orally Once a day Active AeroChamber MV - as directed for 30 days Any adult spacer 08/16/2024 Active Advair HFA 230-21 MCG/ACT 2 puffs Inhala tion Twice a day Active Albuterol Sulfate HFA 108 (90 Base) MCG/ACT 2 puffs as needed Inhalation every 4 hrs for 30 days 08/16/2024 Active EPINEPHrine 0.3 MG/0.3ML as directed Inj ection as directed for 30 days Active Ondansetron 4 MG 1 tablet on the tong ue and allow to dissolve Orally Once a day Active Pantoprazole Sodium 20 MG 1 tablet 1/2 t o 1 hour before morning meal Orally Once a day Active Nebivolol HCl 5 MG 1 tablet Orally Once a day Active Nystatin 976011 UNIT/GM 1 application Ex ternally Twice a day Active Fluticasone Propionate 50 MCG/ACT 1 spray in each nostril Nasally Twice a day Active Rivaroxaban 20 MG 1 tablet with food O rally Once a day Active Ferrous Sulfate 325 (65 Fe) MG 1 tablet Orally Three times a Week Active Social History Tobacco Use: Social History Observation Description Date Details (start date - stop date) Current Smoker NA - NA Tobacco Control (Standard) Question Answer Notes Tobacco use: Current smoker Problems Problem Type SNOMED Code ICD Code Onset Dates Problem Status W/U Status Risk Notes Problem Allergy to penicillin (99072419) Allergy status to penicillin (Z88.0) Active confirmed Problem Eruption of skin (431867365) Rash and other nonspecific skin eruption (R21) Active confirmed Problem Carotid artery syndrome hemispheric (083428598) Carotid artery syndrome (hemispheric) (G45.1) Active confirmed Problem Heart disease (35589561) Other heart disorders in diseases classified elsewhere (I52) Active confirmed Problem Chronic rhinitis (44700784) Chronic rhinitis (J31.0) Active confirmed Problem Hypertrophy of nasal turbinates (61267184) Hypertrophy of nasal turbinates (J34.3) Active confirmed Problem Urticaria (755438856) Other urticaria (L50.8) Active confirmed Problem Fibromyalgia (156548403) Fibromyalgia (M79.7) Active confirmed Problem Swelling of head (739646680) Localized swelling, mass and lump, head (R22.0) Active confirmed Problem Toxic effect of venom (68788518) Toxic effect of venom of bees, accidental (unintentional), initial encounter (T63.441A) Active confirmed Problem Shortness of breath (407235546) Shortness of breath (R06.02) Active confirmed Problem Drug allergy (842913181) Allergy status to unspecified drugs, medicaments and biological substances (Z88.9) Active confirmed Vital Signs Oximetry 97 % 08/10/2024 Blood pressure diastolic 72 mm Hg 08/10/2024 Height 64 in 08/10/2024 Blood pressure systolic 110 mm Hg 08/10/2024 Weight 181.2 lbs 08/10/2024 BMI 31.1 kg/m2 08/10/2024 Encounters Encounter Location Date Provider Diagnosis [facility] [address] [facility] [place] [address] 08/10/2024 Breann Chavira Localized swelling, mass and [...] plans below. 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 - Follow-up in 4 weeks for laboratory [...] this further 08/10/2024 Other Plan Of Treatment Pending Test Test Name Order Date RESPIRATORY ALLERGY PROFILE REGION VIII: [place], [place] 08/10/2024 TRYPTASE 08/10/2024 COMPLEMENT COMPONENT C4C 08/10/2024 Next Appt Details Provider Name:Breann louis, 09/07/2024 12:30:00 PM, [address], [place], [address], Insurance Providers Payer Name Payer Address Payer Phone Subscriber Number Group Number Insured Name Patient Relationship to Insured Coverage Start Date Coverage End Date [email or web address] [address] [address] [place] [address] [id number] Gege Vidal Self - patient is the insured 4 Medical (General) History Medical History History ICD Code Hypothyroidism, unspecified E03.9 Bradycardia, unspecified R00.1 Carotid artery syndrome (hemispheric) G4 5.1 Diverticulosis of small inte clay without perforation or abscess without bleeding K57.10 Chronic obstructive pulmonary disease, u nspecified J44.9 Other cerebrovascular disease I67.89 Dysphagia following unspecified cerebrov ascular disease I69.991 Fibromyalgia M79.7 Gastro-esophageal reflux disease without esophagitis K21.9 Malignant neoplasm of cervix uteri, unsp ecified C53.9 Acute embolism and thrombosi s of unspecified deep veins of unspecified lower extremity I82.409 Hyperlipidemia, unspecified E78.5 Hypersomnia, unspecified G47.10 Spondylosis, unspecified M47.9 Palpitations R00.2 Other sequelae following unspecified cer ebrovascular disease I69.998 Surgical History Surgery Date(Month/Year) TOTAL KNEE ARTHROPLASTY RECHANNELING OF ARTERY REMOVAL OF GALLBLADDER KNEE ARTHROSCOPY/SURGERY PARTIAL HYSTERECTOMY LEFT BREAST BIOPSY
--- OUTSIDE RECORDS SUMMARY | 2024-09-04 17:07 | XMS_ITS | Clinical Summary ---
Author Organization [facility] [employer] Address [address] [place] [address] Care Team Providers Care Textile Engraver Name Role Phone Boris Mcnair Primary Care Provider [phone] Source Comments [facility],non-owned Affiliates and Associated Physician Practices is amultiple site organization consisting of ambulatory clinics and hospital sitesin [place], [place], [place] and [place]. This disclosure is being madepursuant to the Care Everywhere program and may not contain all information available regarding this patient. 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 Family History Medical History Relation Name Comments CAD (Coronary Artery Disease) Father Diabetes - Type 2 Father Depression Mother Diabetes - Type 2 Mother Hypertension Mother DVT - Deep Vein Thrombosis Sister Hepatitis Sister Relation Name Status Comments Father Mother Sister Social History Tobacco Use Types Packs/Day Years [...] Mass Index 31.71 04/02/2019 10:49 AM CDT Plan of Treatment Health Maintenance Due Date Last Done Comments SHAILA (AGES 45-75) - COL ON CA SCREENING 1961 COLON MONITORING 1961 COLONOSCOPY - COLON CA SCREENING 1961 CT COLONOGRAPHY - COLON CA SCREENING 1961 Colorectal Cancer Screening 1961 FIT - COLON CA SCREENING 1961 FLEX SIG - COLON CA SCREENING 1961 MAMMOGRAM 1961 PAP SMEAR 1961 PNEUMOCOCCAL VACCINE (1 of 2 - PCV) 1967 HIV SCREENING 1976 HEPATITIS C SCREENING 05/09/1979 DTAP/TDAP/TD VACCINES (1 - Tdap) 1980 LUNG CANCER SCREENING 2011 ZOSTER VACCINE (1 of 2) 2011 SCREENING FOR DIABETES 02/07/2021 02/07/2018 DEPRESSION SCREENING 09/16/2023 COVID-19 VACCINE (1 - 2023-2 5 season) 2024 INFLUENZA VACCINE (#1) 2024 Respiratory Syncytial Virus (RSV) Vaccine Pt: or over 60 yrs (1 - 1-dose 75+ series) 2036 HEPATITIS B VACCINE Aged Out No longe r eligible based on patient's age to complete this topic HIB VACCINE Aged Out No longer eligi ble based on patient's age to complete this topic HPV VACCINE Aged Out No longer eligi ble based on patient's age to complete this topic MENINGOCOCCAL VACCINE Aged Out No daniela brook eligible based on patient's age to complete this topic Procedures Procedure Name Priority Date/Time Associated Diagnosis Comments COMPREHENSIVE METABOLIC PANEL AM Draw 02/07/2018 12:50 PM CDT Hypercholesteremia from Last 3 Months or Most Recently Relevant to Health Maintenance Results * (ABNORMAL) COMPREHENSIVE METABOLIC PANEL (02/07/2018 12:50 PM CDT) BUN 8 7 - 26 mg/dL 02/07/2018 1:22 PM CDT [facility] Creatinine 1.0 0.6 - 1.2 mg/dL 02/07/2018 1:22 PM CDT [facility] Sodium 136 136 - 145 mmol/L 02/07/2018 1:22 PM CDT [facility] Potassium 3.6 3.5 - 4.5 mmol/L 02/07[facility]2018 [facility] Chloride 101 98 - 107 mmol/L 02/07/2018 1:22 PM [facility] CO2 25 22 - 29 mmol/L 02/07/2018 1:22 PM [facility] Glucose 93 70 - 115 mg/dL 02/07/2018 1:22 PM [facility] Calcium 9.9 8.4 - 10.2 mg/dL 02/07/2018 1:22 PM [facility] Protein Total 7.6 6.0 - 8.3 g/dL 02/07/2018 1:22 PM [facility] Albumin 3.5 3.4 - 5.0 g/dL 02/07/2018 1:22 PM [facility] Bilirubin Total 0.7 0.2 - 1.2 mg/dL 02/07/2018 1:22 PM [facility] Alkaline Phosphatase 109 40 - 150 Units/L 02/07/2018 1:22 PM [facility] ALT 22 0 - 55 Units/L 02/07/2018 1:22 PM [facility] AST 23 5 - 34 Units/L 02/07/2018 1:22 PM [facility] Anion Gap 14 8 - 18 02/07/2018 1:22 PM [facility] BUN/Creatinine Ratio 8 7 - 23 02/07/2018 1:22 PM [facility] Osmolality Calculated 280 270 - 300 mOsm/kg 02/07/2018 1:22 PM [facility] Albumin/Globulin Ratio 0.9(L) 1.1 - 2.3 02/07/2018 1:22 PM [facility] eGFR 57(L) >60 mL/min/1.7 3 m2 02/07/2018 1:22 PM [facility] Blood BLOOD SPECIMEN / Unknown Lab Venipuncture / Unknown 02/07/2018 12:50 PM CDT 02/07/2018 12:55 PM [facility] Ester Barajas DO LAB - CHEMISTRY ORD ERABLES [facility] [address] [phone] from Last 3 Months or Most Recently Relevant to Health Maintenance Advance Directives * Full Code (Latest Code Status on File) Date Activated Date Inactivated Comments 02/15/2018 8:10 AM 02/15/2018 12:04 PM * Full Code Date Activated Date Inactivated Comments 02/14/2018 7:57 AM 02/14/2018 6:16 PM Care Teams Textile Engraver Relationship Specialty Start Date End Date Boris Mcnair DO [address] [place] [address] PCP - General 04/07/19
--- OUTSIDE RECORDS SUMMARY | 2024-09-04 17:08 | XMS_ITS | Patient Health Summary ---
Author Organization [facility] Address [address] [place] [address] Care Team Providers Care Room Service Runner Name Role Phone Boris Mcnair Primary Care Provider [phone] Note from [facility],non-owned Affiliates and Associated Physician Practices is amultiple site organization consisting of ambulatory clinics and hospital sitesin [place], [place], [place] and [place]. This disclosure is being madepursuant to the Care Everywhere program and may not contain all information available regarding this patient. Last updated 18.[facility] Allergies * Adhesive Sensitivity(Other) -Medium Criticality * Codeine(Shortness of Breath) -High Criticality * Food(Other) * Latex(Urticaria,Swelling) -High Criticality * Morphine(Other) -High Criticality * Penicillins(Shortness of Breath) -High Criticality * Vancomycin(Other) -High Criticality * Vancomycin(Other) Medications * Be aware that medications may not be up to date on this document. Alwaysverify current medications with the patient. * XARELTO 20 MG tablet(Started 01/31/2018) Take 20 mg by mouth once daily * atorvastatin (LIPITOR) 20 MG tablet(Started 02/01/2018) * aspirin EC (ECOTRIN) 81 MG tablet Take 81 mg by mouth once daily * levothyroxine (SYNTHROID) 137 MCG tablet Take 137 mcg by mouth daily before breakfast * cyanocobalamin (VITAMIN B-12) 1000 MCG tablet Take 1,000 mcg by mouth once daily * folic acid (FOLVITE) 1 MG tablet(Started 03/25/2018) Take 1 mg by mouth * VENTOLIN HFA 108 (90 BASE) MCG/ACT inhaler(Started 09/30/2018) * pantoprazole EC (PROTONIX) 20 MG tablet(Started 10/09/2018) * Cholecalciferol (VITAMIN D3) 59528 units capsule Active Problems Problem Noted Date Diagnosed Date [...] Mass Index 31.71 04/02/2019 10:49 AM CDT Procedures * VAS ARTERIAL ANKLE ARM INDEX(Performed 04/02/2019) Performed for Claudication of both lower extremities (HCC) * VAS CAROTID DUPLEX BILATERAL(Performed 04/02/2019) Performed for Carotid artery embolus, left * CARDIAC EKG ORDER(Performed 08/04/2018) * VAS CAROTID DUPLEX BILATERAL(Performed 04/10/2018) Performed for Carotid artery embolus, left * CARDIAC EKG ORDER(Performed 02/18/2018) * ACT - POCT (IP) [facility](Performed 02/14/2018) * ARTERIAL LINE NOTE(Performed 02/14/2018) * ENDOTRACHEAL TUBE NOTE(Performed 02/14/2018) * ENDOTRACHEAL TUBE NOTE(Performed 02/14/2018) * ENDARTERECTOMY CAROTID (CEA)(Performed 02/14/2018) Performed for Symptomatic carotid artery narrowing without infarction, left * ACT - POCT (IP) [facility](Performed 02/14/2018) Performed for Hypercholesteremia, Carotid artery embolus, left * PREPARE RBC LEUKOREDUCED UNIT(Performed 02/14/2018) Performed for Hypercholesteremia * TYPE + SCREEN PANEL(Performed 02/14/2018) * PTT [facility](Performed 02/07/2018) Performed for Hypercholesteremia * PT-INR [facility](Performed 02/07/2018) Performed for Hypercholesteremia * COMPREHENSIVE METABOLIC PANEL(Performed 02/07/2018) Performed for Hypercholesteremia * CBC W AUTO DIFFERENTIAL(Performed 02/07/2018) Performed for Hypercholesteremia * EKG 12-LEAD(Performed 02/07/2018) Performed for Hypercholesteremia * XR LUMBAR SPINE 4VW OR MORE(Performed 08/19/2014) Performed for Fall, initial encounter * XR SHOULDER RIGHT 2VW OR MORE(Performed 08/19/2014) Performed for Fall, initial encounter Results * VAS ARTERIAL ANKLE ARM INDEX (04/02/2019 9:31 AM CDT) Anatomical Region Laterality Modality Intravascular Ul trasound 04/02/2019 8:37 AM CDT Narrative Procedure Note Deshaun Boland MD - 04/02/2019 Heather James MAT ROLLER-REPAIR TECH VASCULAR LAB OR DERABLES * VAS CAROTID DUPLEX BILATERAL (04/02/2019 9:18 AM CDT) Only the most recent of2 resultswithin the time period is included. Anatomical Region Laterality Modality Intravascular Ul trasound 04/02/2019 8:18 AM CDT Narrative Procedure Note Deshaun Boland MD - 04/02/2019 Too Lara MD VASCULAR LAB ORDERAB LES * CARDIAC EKG ORDER (08/04/2018 12:01 PM [employer] SUPERVISOR) Only the most recent of2 resultswithin the time period is included. Narrative 08/04/2018 12:01 PM [employer] SUPERVISOR Ordered by an unspecified provider. Scanned Document CARDIAC SERVICES ORD ERABLES * ACT - POCT (IP) [facility] (02/14/2018 12:55 PM CDT) Only the most recent of2 resultswithin the time period is included. Activated Clotting Time 255 sec [facility] POCT TESTING Blood BLOOD SPECIMEN / Unknown 02/14/2018 12:55 PM CDT Kevin Bower MD LAB - POINT OF CARE ORDERABLES [facility] POCT TESTING [address] [phone] * PREPARE (CROSSMATCH) RBC UNIT(S), 2 Units (02/14/2018 9:11 AM CDT) Unit Description LR Red Cells [facility] BLOOD BANK LAB Unit ABO O [facility] BLOOD BANK LAB Unit Rh POS [facility] BLOOD BANK LAB Product Code RL1 [facility] BLO OD BANK LAB Unit Donor # [id number] [facility] BLOOD BANK LAB Unit Status released [facility] BLOO D BANK LAB Product Number [id number] [facility] B LOOD BANK LAB Blood Type Barcode 5100 [facility] BLOOD BANK LAB Unit Description LR Red Cells [facility] BLOOD [facility] Unit ABO O [facility] BLOOD [facility] LAB Unit Rh POS [facility] BLOOD BANK LAB Product Code RL3 [facility] BLO OD BANK LAB Unit Donor # [id number] [facility] BLOOD BANK LAB Unit Status released [facility] BLOO D BANK LAB Product Number [id number] [facility] B LOOD BANK LAB Blood Type Barcode 5100 [facility] BLOOD BANK LAB Blood Bank BLOOD SPECIMEN / Unknown 02/14/2018 9:11 AM CDT 02/14/2018 9:11 AM CDT Ester Barajas DO LAB - BLOOD BANK OR DERABLES Performing Organization Address [facility]/ZIP Co de Phone Number [facility] BLOOD BANK LAB [address] [place] [address] * TYPE + SCREEN PANEL (02/14/2018 9:05 AM CDT) Antibody Screen NEG 8 9:58 AM CDT [facility] BLOOD BANK LAB ABO Rh O POS 02/14/2018 9:58 AM CDT [facility] BLOOD BANK LAB Blood Bank BLOOD SPECIMEN / Unknown Venipuncture / Unknown 02/14/2018 9:05 AM CDT 02/14/2018 9:10 AM CDT Paulina Andujar MAT ROLLER-MEMBER SERVICES COORDINATOR LAB - BLOOD BA NK ORDERABLES Performing Organization Address [facility] Co de Phone Number [facility] BLOOD BANK LAB [address] [place] [address] * (ABNORMAL) PTT [facility] (02/07/2018 12:50 PM CDT) APTT 42.0(H) 23.0 - 38.4 Seconds 02/07/2018 1:16 PM CDT [facility] Comment: Suggested therapeutic range for full dose I.V. heparin therapy for venous thromboembolism is 66.0-91.0 seconds. Blood BLOOD SPECIMEN / Unknown Lab Venipuncture / Unknown 02/07/2018 12:50 PM CDT 02/07/2018 12:55 PM CDT Ester Barajas DO LAB - COAGULATION O RDERABLES Performing Organization Address [facility]/ZIP Co de Phone Number [facility] [address] [place] [address] * (ABNORMAL) PT-INR [facility] (02/07/2018 12:50 PM CDT) PT 19.0(H) 12.1 - 14.8 Seconds 02/07/2018 1:15 PM CDT [facility] INR 1.6 See Comment 02/07/2018 1:15 PM [facility] Comment: Suggested therapeutic range for low-intensity coumadin therapy for venous thromboembolism prophylaxis is an INR of 2.0-3.0. ??For high risk patients (Mitral Valve Prosthesis, Atrial Fibrillation, history of TIA/stroke), suggested prophylactic therapeutic range is an INR of 2.5-3.5. Blood BLOOD SPECIMEN / Unknown Lab Venipuncture / Unknown 02/07/2018 12:50 PM CDT 02/07/2018 12:55 PM CDT Ester Barajas DO LAB - COAGULATION O RDERABLES [facility] [address] [phone] * CBC W AUTO DIFFERENTIAL (02/07/2018 12:50 PM CDT) WBC 8.0 3.5 - 10.5 10? 3 /uL 02/07/2018 1:01 PM [facility] RBC 4.82 3.90 - 5.00 10? 6 /uL 02/07/2018 1:01 PM [facility] Hemoglobin 13.6 12.0 - 15.5 g/dL 02/07/2018 1:01 PM [facility] Hematocrit 40.6 35.0 - 45.0 % 02/07/2018 1:01 PM [facility] MCV 84.2 81.0 - 97.0 fL 02/07/2018 1:01 PM [facility] MCH 28.2 28.0 - 34.0 pg 02/07/2018 1:01 PM [facility] MCHC 33.5 32.0 - 36.0 g/dL 02/07/2018 1:01 PM [facility] Platelet Count 292 150 - 400 10? 3 /uL 02/07/2018 1:01 PM [facility] RDW-SD 39.7 36.0 - 50.0 fL 02/07/2018 1:01 PM [facility] RDW-CV 12.9 11.2 - 14.8 % 02/07/2018 1:01 PM [facility] MPV 10.3 9.3 - 12.8 fL 02/07/2018 1:01 PM [facility] Neutrophils % 64.9 35.0 - 70.0 % 02/07/2018 1:01 PM [facility] Lymphocytes % 25.9 19.7 - 55.1 % 02/07/2018 1:01 PM [facility] Monocytes % 6.3 3.0 - 15.0 % 02/07/2018 1:01 PM [facility] Eosinophils % 2.6 0.0 - 6.0 % 02/07/2018 1:01 PM [facility] Basophil % 0.3 0.0 - 1.5 % 02/07/2018 1:01 PM [facility] Neutrophils Absolute 5.2 1.6 - 7.0 10? 3 /uL 02/07/2018 1:01 PM [facility] Lymphocyte Absolute 2.1 0.8 - 2.9 10? 3 /uL 02/07/2018 1:01 PM [facility] Monocytes Absolute 0.50 0.14 - 0.66 10? 3 /uL 02/07/2018 1:01 PM [facility] Eosinophils Absolute 0.21 0.00 - 0.22 10? 3 /uL 02/07/2018 1:01 PM [facility] Basophils Absolute 0.02 0.00 - 0.06 10? 3 /uL 02/07/2018 1:01 PM [facility] Immature Granulocytes % 0.3 0.0 - 1.0 % 02/07/2018 1:01 PM [facility] Blood BLOOD SPECIMEN / Unknown Lab Venipuncture / Unknown 02/07/2018 12:50 PM CDT 02/07/2018 12:55 PM CDT Ester Barajas DO LAB - HEMATOLOGY OR DERABLES [facility] [address] [phone] * (ABNORMAL) COMPREHENSIVE METABOLIC PANEL (02/07/2018 12:50 PM CDT) BUN 8 7 - 26 mg/dL 02/07/2018 1:22 PM [facility] Creatinine 1.0 0.6 - 1.2 mg/dL 02/07/2018 1:22 PM [facility] Sodium 136 136 - 145 mmol/L 02/07/2018 1:22 PM [facility] Potassium 3.6 3.5 - 4.5 mmol/L 02/07/2018 1:22 PM [facility] Chloride 101 98 - 107 mmol/L 02/07/2018 1:22 PM [facility] CO2 25 22 - 29 mmol/L 02/07/2018 1:22 PM [facility] Glucose 93 70 - 115 mg/dL 02/07/2018 1:22 PM [facility] Calcium 9.9 8.4 - 10.2 mg/dL 02/07/2018 1:22 PM [facility] Protein Total 7.6 6.0 - 8.3 g/dL 02/07/2018 1:22 PM [facility] Albumin 3.5 3.4 - 5.0 g/dL 02/07/2018 1:22 PM [facility] Bilirubin Total 0.7 0.2 - 1.2 mg/dL 02/07/2018 1:22 PM [facility] Alkaline Phosphatase 109 40 - 150 Units/L 02/07/2018 1:22 PM [facility] ALT 22 0 - 55 Units/L 02/07/2018 1:22 PM [facility] AST 23 5 - 34 Units/L 02/07/2018 1:22 PM [facility] Anion Gap 14 8 - 18 02/07/2018 1:22 PM [facility] BUN/Creatinine Ratio 8 7 - 23 02/07/2018 1:22 PM [facility] Osmolality Calculated 280 270 - 300 mOsm/kg 02/07/2018 1:22 PM [facility] Albumin/Globulin Ratio 0.9(L) 1.1 - 2.3 02/07/2018 1:22 PM [facility] eGFR 57(L) >60 mL/min/1.7 3 m2 02/07/2018 1:22 PM [facility] Blood BLOOD SPECIMEN / Unknown Lab Venipuncture / Unknown 02/07/2018 12:50 PM CDT 02/07/2018 12:55 PM CDT Ester Barajas DO LAB - CHEMISTRY ORD ERABLES Performing Organization Address City/[facility]/ZIP Co de Phone Number [facility] [place] [id number] [address] [phone] * EKG 12-LEAD (02/07/2018 10:08 AM CDT) Ventricular Rate 57 BPM [facility] MUSE Atrial Rate 57 BPM [facility] MUSE P-R Interval 206 ms [facility] MUSE QRS Duration ms 84 ms [facility] Q-T Interval ms 428 ms [facility] MUSE QTC Calculation (Bezet) 416 ms [facility] MUSE Calculated P [place] 70 degrees [facility] MUSE Calculated R [place] 23 degrees [facility] Calculated T [place] 60 degrees [facility] Interpretation EKG Sinus bradycardia~Po or R wave progression in precordial leads~Otherwis e normal ECG~No previous ECGs available~Conf irmed by Ancelmo KISER, JEVON ([id number]), technical writer and editor AMOS MCCLENDON ([id number]) on 02/13/2018 1:47:34 PM [facility] MUSE 02/07/2018 10:0 8 AM CDT 02/13/2018 1:47 PM CDT Ester Barajas DO ECG ORDERABLES Performing Organization Address [facility] Co de Phone Number [facility] MUSE * XR LUMBAR SPINE 4+ VW (08/19/2014 3:54 AM [employer] SUPERVISOR) Anatomical Region Laterality Modality Spine Radiographic Yulisa ging 08/19/2014 7:39 AM [employer] SUPERVISOR Impressions 08/19/2014 8:06 AM [employer] SUPERVISOR Mild degenerative changes. Edited by Juanita Odonnell on 08/19/2014 7:51 AM Narrative 08/19/2014 8:06 AM [employer] SUPERVISOR LUMBAR SPINE 5 VIEWS INDICATION: Low back pain and lumbar spine pain. FINDINGS: Five views of the lumbar spine show mild endplate degenerative changes L1-L4. There is no evidence of acute fracture, subluxation or dislocation. Procedure Note Too Whitaker MD - 08/19/2014 LUMBAR SPINE 5 VIEWS INDICATION: Low back pain and lumbar spine pain. FINDINGS: Five views of the lumbar spine show mild endplate degenerative changes L1-L4. There is no evidence of acute fracture, subluxation or dislocation. IMPRESSION Mild degenerative changes. Edited by Juanita Odonnell on 08/19/2014 7:51 AM Dom Grimaldo MD DIAGNOSTIC IMAGING O RDERABLES * XR SHOULDER 2+ VW RIGHT (08/19/2014 3:54 AM [employer] SUPERVISOR) Anatomical Region Laterality Modality Upper Extremity Radiographic Yulisa ging 08/19/2014 8:04 AM [employer] SUPERVISOR Impressions 08/19/2014 8:04 AM [employer] SUPERVISOR No fracture. Narrative 08/19/2014 8:04 AM [employer] SUPERVIS[employer] Right shoulder 2 views unilateral Indication: Right shoulder pain 2 views of the right shoulder show no acute fracture or dislocation or destructive lesion. There is no radiopaque foreign body. Procedure Note Jaz Rdo MD - 08/19/2014 Right shoulder 2 views unilateral Indication: Right shoulder pain 2 views of the right shoulder show no acute fracture or dislocation or destructive lesion. There is no radiopaque foreign body. IMPRESSION No fracture. Dom Grimaldo MD DIAGNOSTIC IMAGING O RDERABLES Care Teams Room Service Runner Relationship Specialty Start Date End Date Boris Mcnair DO [address] [place] [address] PCP - General 04/07/19
--- OUTSIDE RECORDS SUMMARY | 2024-09-04 17:08 | XMS_ITS | Encounter Summary ---
Author Organization [facility] Address [address] [place] [address] Care Team Providers Care Paraffiner Name Role Phone Dominic Fernando MD Primary Care Provider [phone] Encounter Details Date Type Department Care Team (Latest Contact Info) Description 02/07/2018 11:15 AM CDT - 02/07/2018 11:19 AM CDT Hospital Encounter [facility] E[facility] [address] [place] [id number] Discharge Disposition: Home or Self Care Social History Tobacco Use Types Packs/Day Years Used Date Smoking Tobacco: Every Day Cigarettes 1 30 Smokeless Tobacco: Never Alcohol Use Standard Drinks/Week Comments No 0 (1 standard drink = 0.6 oz pur e alcohol) Sex and Gender Information Value Date Recorded Sex Assigned at Not on file Gender Identity Not on file Sexual Orientation Not on file documented as of this encounter Medications at Time of Discharge Medication Sig Dispensed Refills Start Date End Date aspirin EC (ECOTRIN) 81 MG tablet Take 81 mg by mouth once daily atorvastatin (LIPITOR) 20 MG tablet 02/01/2018 cyanocobalamin (VITAMIN B-12) 1000 MCG tablet Take 1,000 mcg by mouth once daily levothyroxine (SYNTHROID) 137 MCG tablet Take 137 mcg by mouth daily before breakfast XARELTO 20 MG tablet Take 20 mg by mouth once daily 01/31/2018 clopidogrel (PLAVIX) 75 MG tablet Take 1 tablet by mouth once daily 30 tablet 2 02/06/2018 02/15/2018 ondansetron (ZOFRAN) 4 MG tablet Take 4 mg by mouth as needed 02/01/2018 02/15/2018 documented as of this encounter Plan of Treatment Not on file documented as of this encounter Visit Diagnoses Not on filedocumented in this encounter Care Teams Paraffiner Relationship Specialty [place] [address] [place] [phone] PCP - General 02/06/18 04/06/19 documented as of this encounter
--- OUTSIDE RECORDS SUMMARY | 2024-09-04 17:08 | XMS_ITS | Encounter Summary ---
Author Organization [facility] Address [address] [place] [address] Care Team Providers Care Flight Operation Coordinator Name Role Phone Dominic Fernando MD Primary Care Provider [phone] Reason for Visit * Auth/Cert Specialty Diagnoses / Procedures Referred By Evan bo Referred To Contact Diagnoses Symptomatic carotid artery narrowing without infarction, left SYMPTOMATIC STENOSIS OF LEFT CAROTID ARTERY WITHOUT INFARCTION Procedures ARTERIOGRAM/ANGIOGRAM Referral ID Status Reason Start Date Expiration Date Visits Re quested Visits Authorized [id number] 1 1 Encounter Details Date Type Department Care Team (Latest Contact Info) Description 02/14/2018 6:47 AM CDT - 02/15/2018 10:59 AM CDT Hospital Encounter [facility] [address] [address] [place] [address] [place] [id number] Vascular Surgery Discharge Disposition: Home or Self Care Social History Tobacco Use Types Packs/Day Years Used Date Smoking Tobacco: Former Cigarettes 1 30 Smokeless Tobacco: Never Alcohol Use Standard Drinks/Week Comments No 0 (1 standard drink = 0.6 oz pur e alcohol) Sex and Gender Information Value Date Recorded Sex Assigned at Not on file Gender Identity Not on file Sexual Orientation Not on file documented as of this encounter Last Filed Vital Signs Vital Sign Reading Time Taken Comments Blood Pressure 113/77 02/15/2018 8:03 AM CDT Pulse 75 02/15/2018 8:03 AM CDT Temperature 36.9 ??C (98.5 ??F) 02/15/2018 8:03 AM CD T Respiratory Rate 18 02/15/2018 8:03 AM CDT Oxygen Saturation 95% 02/15/2018 8:03 AM CDT Inhaled Oxygen Concentration - - Weight 80.7 kg (178 lb) 02/14/2018 6:18 PM CDT Height 162.6 cm (5' 4 ) 02/14/2018 6:18 PM CDT Body Mass Index 30.55 02/14/2018 6:18 PM CDT documented in this encounter Functional Status Functional Status Response Date of [...] person have difficulty concentrating/remembering/making decisions? No 02/15/2018 documented as of this encounter Discharge Summaries * Roni Newell MD - 02/15/2018 9:13 AM CDT Physician Discharge Summary Patient ID: Gege Vidal [id number] 57 y.o. 1960 Admit date: 02/14/2018 Discharge date: 02/15/18 Admitting Physician: Too Lara MD Discharge Physician: Shagufta Leyva MD Discharge Diagnoses: Carotid artery embolus Admission Condition: good Discharged Condition: good Indication for Admission: Patient is a 57 yo female with hx including DVT, tobacco use, hyperlipidemia, and recent stroke with difficulty speaking, blurred vision, and near syncope. CT imaging revealed left proximal common carotid artery stenosis (around 75%). She was referred to vascular clinic for treatment of her carotid artery disease. She presented on 02/14 for left carotid angiogram with retrograde left common carotid stent with patch angioplasty of left internal carotid artery. Hospital Course: Intraoperatively, the patient underwent the planned carotid angiogram which revealed patent bilateral carotid arteries, innominate artery, and aortic arch without stenosis. Therefore, no further intervention was performed. She was admitted post-operatively for observation. Her post-op course remained uneventful. By POD1, pain was minimal, she was tolerating a regular diet, voiding spontaneously, passing flatus, remained hemodynamically stable, and neurologically intact. Therefore, she was discharged home in stable condition. Consults: None Significant Diagnostic Studies: Recent Labs Component Name 02/07/18 1250 WBC 8.0 HGB 13.6 HCT 40.6 PLT 292 Recent Labs Component Name 02/07/18 1250 NA 136 CL 101 CO2 25 BUN 8 CREATININE 1.0 GLU 93 CALCIUM 9.9 Recent Labs Component Name 02/07/18 1250 PROT 7.6 ALB 3.5 TBILI 0.7 AST 23 ALT 22 ALKPHOS 109 Recent Labs Component Name 02/07/18 1250 INR 1.6 PTT 42.0* Discharge Exam: Constitutional: NAD HEENT: left neck incision dressed, c/d/i without hematoma Respiratory: CTAB Cardiovascular: regular rate GI: soft, NT/ND Musculoskeletal: extremities warm and well-perfused Skin: warm and dry Neurological: AOx3, face symmetric, sensorimotor grossly intact in all extremities Psychiatric: responding appropriately Disposition: Home Patient Instructions: Medication List CONTINUE taking these medications aspirin EC 81 MG tablet Commonly known as: ECOTRIN atorvastatin 20 MG tablet Commonly known as: LIPITOR cyanocobalamin 1000 MCG tablet Commonly known as: VITAMIN B-12 levothyroxine 137 MCG tablet Commonly known as: SYNTHROID XARELTO 20 MG tablet Generic drug: rivaroxaban STOP taking these medications clopidogrel 75 MG tablet Commonly known as: plaVIX ondansetron 4 MG tablet Commonly known as: ZOFRAN Follow-up Information Follow up with Too Lara MD . Specialty: Vascular Surgery Why: Please call to schedule a follow-up appointment for approximately 2 weeks from the date of your surgery. Contact information: [address] [facility] [phone] Signed: Roni Newell MD 02/15/2018 documented in this encounter Medications at Time of Discharge [...] 20 mg by mouth once daily 01/31/2018 documented as of this encounter Progress Notes * Niya Rodas RN - 02/15/2018 10:50 AM CDT Discharge summary discussed with pt, she voices understanding of medications, follow up appt, pt instructions. Pt son here to accompany her home. Pt has all belongings in her possession. NAD at time of d/c. Niya Rodas RN * José Miguel Rondon MD - 02/14/2018 10:35 PM CDT Surgery Post Operative Check S/P right carotid artery exploration, carotid angiogram, and aortic arch angiogram Subjective: Pain controlled. Making urine. No SOB. Objective: Patient Vitals for the past 24 hrs: Temp Pulse Resp BP 02/14/18 1943 99.1 ??F (37.3 ??C) 72 16 109/52 02/14/18 1430 - 63 17 - 02/14/18 1400 - 67 19 - 02/14/18 1355 - 67 17 - 02/14/18 1350 - 66 14 121/59 02/14/18 1345 - 67 17 103/68 02/14/18 1340 - 67 15 115/58 02/14/18 1335 - 70 13 118/59 02/14/18 1330 - 70 15 112/55 02/14/18 1325 - 71 - 117/60 02/14/18 1320 - 72 - 118/64 02/14/18 1315 - 72 - 105/48 02/14/18 1310 - 74 17 - 02/14/18 1305 - 72 17 - 02/14/18 1300 - 71 18 120/55 02/14/18 1255 98.1 ??F (36.7 ??C) 74 19 117/57 02/14/18 0852 97.6 ??F (36.4 ??C) 70 18 106/76 Date 02/14/18 0700 - 02/15/18 0659 Shift 1641-3818 0511-8574 0958-2878 24 Hour Total I N T A K E P.O. 120 120 I.V. (mL/kg/hr) 500 (0.8) 500 Shift Total (mL/kg) 500 (6.2) 120 (1.5) 620 (7.7) O U T P U T Urine (mL/kg/hr) 60 (0.1) 60 Shift Total (mL/kg) 60 (0.7) 60 (0.7) Weight (kg) 80.7 80.7 80.7 80.7 Physical Exam: General: NAD Chest: CTAB Cardiac: RRR Abd: S/NT/ND Incision: left neck incision C/D/I, skin glue in place Assessment/Plan: -HD stable, afebrile -adequate UOP post op -pain controlled -dressings/incision intact -overall recovering well, continue post op care José Miguel Rnodon MD Surgery Resident, PGY1 Pager: 02/14/18 10:35 PM * Samantha Lozano RN - 02/14/2018 6:22 PM CDT Received pt [facility] pacu. Admission completedc documented in this encounter H&P Notes * Paulina Andujar APRN-[employer] - 02/14/2018 8:32 AM CDT [facility] Vascular Surgery History and Physical Gege Vidal 57 y.o. female Date: 02/14/2018 Chief Complaint: symptomatic carotid stenosis HPI: History is obtained from the patient and the chart Ms. Vidal is a 57 yo female with hx including DVT, tobacco use, hyperlipidemia, and recent stroke with difficulty speaking, blurred vision, and near syncope. Imaging revealed left proximal common carotid artery stenosis (around 75%). She is now back to neurological baseline and she was referred tovascular clinic for treatment of her carotid artery disease. She presents today for Left carotid ang iogram with retrograde Left common carotid stent with patch angioplasty of Left internal carotid artery. She has been off xarelto since 02/07 and is now on plavix since 02/08. PMHx: Past Medical History: No date: Anxiety No date: Cervical cancer : CVA (cerebral vascular accident) No date: Disorder of liver Comment: mass on liver No date: DVT (deep venous thrombosis) No date: GERD (gastroesophageal reflux disease) No date: High cholesterol No date: Hypothyroid No date: Pure hypercholesterolemia No date: Snoring PSHx: Past Surgical History: No date: Bilateral Tubal Ligation (BTL) No date: Breast Biopsy No date: Cervical Fusion No date: Cholecystectomy No date: Cholecystectomy, Open No date: Hysterectomy 1990: Hysterectomy, Partial No date: KNEE ARTHROPLASTY No date: Knee Arthroscopy Right Comment: x 3 No date: OTHER SURGERY Comment: right side abdomen fatty tumor removed No date: Rotator Cuff Repair Right No date: Shoulder Arthroscopy Comment: rotator cuff surgery x 3 No date: Tonsillectomy and Adenoidectomy No date: TUBAL LIGATION, LAPAROSCOPIC Social Hx: Smoking status: Current Every Day Smoker 1.00 Packs/day For 30.00 Years Types: Cigarettes Smokeless tobacco: Never Used Alcohol use No Family Hx: family history includes Coronary Artery Disease in her father; DVT - Deep Vein Thrombosis in her sister; Depression in her mother; Diabetes - Type 2 in her father and mother; Hepatitis in her sister;Hypertension in her mother. +hx of cva in son Allergies: -- Latex -- Urticaria and Swelling -- Codiene [Codeine] -- Shortness of Breath -- Morphine -- Other -- hypotension -- Pcn [Penicillins] -- Shortness of Breath -- Vancomycin -- Other -- Marzena's syndrome -- Adhesive Sensitivity -- Other -- Blisters -- Food -- Other -- Alcohol- makes her break out in blisters Medications: No current facility-administered medications for this encounter. Review of Systems: Constitutional: Denies: fever, chills, +weight loss since stroke Eyes: +glasses Cardiovascular: Denies chest pain, angina,orthopnea, or syncope +occasional fluttering Resp: Denies wheezing, hemoptysis, dyspnea at rest +LEVIN when climbing stairs, +chronic cough GI: Denies hematemesis, constipation, diarrhea, melena, hematochezia, or nausea/voming : Denies dysuria, hematuria, nocturia, Musculoskeletal: Patient reports arthritis, back pain Skin: Patient denies rashes or skin lesions/cancer Neurological: Patient reports recent hx of stroke with blurred vision, impaired sensorium, near syncope, problems speaking; denies unilateral weakness, numbness, tingling, headaches Psychiatric: Patient reports anxiety Endocrine: Patient reports hypothyroid Hem/Lymph: Patient denies history of bleeding too much after surgery Vascular: Patient reports hx of DVT (3), carotid artery stenosis as above Vitals: There were no vitals taken for this visit. Physical Exam: GEN: NAD, AAOx3 HEENT: NC/AT, no ocular discharge, non-erythematous posterior pharynx Neck: Supple, no thyromegaly, healed incision right lower neck Resp: unlabored breathing on RA CV: RRR Abd: Soft, NT/ND Ext: no cyanosis, clubbing, or edema 2+ bilateral radial and DP pulses Psych: appropriate mood and affect Neuro: DUONG equally, strength equal x 4, speech clear and appropriate, EOMs intact Imaging: CTA: Proximal left ICA stenosis about 75%. ICA without significant disease. Labs: Lab results smartLinks are not currently availableLab results smartLinks are not currently available Assesment and Plan: Gege Vidal is a 57 y.o. female with symptomatic left carotid stenosis who presents today for Leftcarotid angiogram with retrograde Left common carotid stent with patch angioplasty of Left internalcarotid artery with Dr Lara 1. Recent labs reviewed, updated T&S ordered 2. NPO 3. Resident to obtain informed consent, site carlota Andujar APRN-COLE 02/14/2018 8:32 AM documented in this encounter OR Notes * Operative - Mayte Mota MD - 02/14/2018 12:44 PM CDT Operative report Date of procedure: 02/14/18 Preop dx: proximal left common carotid artery lesion Postop dx: patent bilateral common carotid arteries without stenotic lesion Procedure: right carotid artery exploration, carotid angiogram, arch angiogram aorta Attending: Dr. Lara Fellow: Dr. Mota Anesthesia: GETA EBL: <25ml Findings: patent bilateral carotid arteries, innominate artery and aortic arch without stenosis Indication: Pt is a 57yoF with recent stroke who was noted to have a proximal left common carotid artery lesion. She was placed on xarelto and also taking aspirin and plavix. She presents for retrograde left common carotid artery stent. Informed consent was obtained after describing to the patient the risks, benefits, and alternatives to the procedure. After questions were answered, she agreed toproceed. Description: Pt was taken back to the OR and placed on the OR table in supine position. SCDs were placed and working bilaterally. She received clindamycin for perioperative antibiotics. She received general anesthesia. She was prepped and draped in standard sterile fashion timeout was performed andall were in agreement. An incision was made at the medial edge of the left sternocleidomastoid muscle and dissection proceed with bovie cautery through platysma and along the medial SCM border. Sharpand blunt dissection proceeded with regina to dissect along the medial edge of the internal jugular vein and this was retracted laterally. The vagus nerve was visualized anterior to the common carotid artery and preserved in further dissection of the common carotid artery. A vessel loop as placed in haney fashion around the distal common carotid artery. A 5-0 prolene suture was placed proximal to this loop in a pursestring and the ends tagged. She was then given 8000 units of IV heparin. After 3 m inutes had passed, a debakey angled vascular clamp was applied to the distal common carotid artery.A micropunture kit was used to access the common carotid artery within the pursestring prolene suture. The mircowire was confirmed in position. The needle was then exchanged for a microsheath. The wire was exchange for a J wire and the sheath was then exchanged for an 11cm 7Fr sheath. An angiogram was then completed. No common carotid lesion was identified on angiogram. The angiogram was completed in KAZAKH and JULIO CESAR views and no lesion was identified. A glidewire was then advanced down the left common carotid artery to the aorta. An omniflush catheter was advanced over the glidewire and positioned in the ascending aorta. An arch angiogram was completed with no lesions noted in arch vessels. Theinnominate artery was selected under fluoro and the omniflush exchanged for an angled glidecath. A right carotid angiogram was completed and no lesions were identified. The glidecath was removed and an angiogram was then completed on the left after removing the debakey vascular clamp. No lesion wasidentified. The sheath was removed and the preplaced 5-0 prolene pursestring suture was secured with hemostasis achieved. The platysma was closed with 3-0 vicryl and the skin closed with 4-0 vicryl subcuticular suture. Exofin skin glue was applied for sterile dressing. All counts were correct at the end of the case. Dr. Lara was present and scrubbed during the procedure. Pt tolerated the procedure well. She was extubated and noted to be neurologically intact on exam with equal strength in BUE and BLE, following commands, and had equal bilateral palpable femoral pulses and distal pulses as well. She was taken to PACU in stable condition. Specimen: none Drain: none Complication: none Condition: stable Dispo: to PACU, 23 hour observation Mayte Mota MD 02/14/2018 1:12 PM * Brief Op Note - Mayte Mota MD - 02/14/2018 12:41 PM CDT Brief op note Date of procedure: 02/14/18 Preop dx: proximal left common carotid artery lesion Postop dx: patent bilateral common carotid arteries without stenotic lesion Procedure: right carotid artery exploration, carotid angiogram, arch angiogram aorta Attending: Dr. Lara Fellow: Dr. Mota Anesthesia: GETA EBL: <25ml Findings: patent bilateral carotid arteries, innominate artery and aortic arch without stenosis Specimen: none Drain: none Complication: none Condition: stable Dispo: to PACU, 23 hour observation Mayte Mota MD 02/14/2018 12:44 PM documented in this encounter Plan of Treatment Pending Results Name Type Priority Associated Diagnoses Date /Time NIKKI William ANGIO TEAM Imaging Routine Hypercholesteremia 02/14/2018 12:30 PM CDT Scheduled Orders Name Type Priority Associated Diagnoses Orde r Schedule FL KIRILL W ANGIO TEAM Imaging Routine Hypercholesteremia For radiant use only for 1 Occurrences starting 02/14/2018 until 02/14/2018 ACT - POCT (IP) [facility] Point of Care Testing Routine ONCE for 1 Occurrences starting 02/14/2018 until 02/14/2018 ACT - POCT (IP) [facility] Point of Care Testing Routine Hypercholesteremia Carotid artery embolus, left ONCE for 1 Occurrences starting 02/14/2018 until 02/14/2018 documented as of this encounter Procedures Procedure Name Priority Date/Time Associated Diagnosis Comments CARDIAC EKG ORDER 02/18/2018 9:0 4 PM CDT ACT - POCT (IP) [facility] Routine 02/14/2018 1 2:55 PM CDT ENDARTERECTOMY CAROTID (CEA) 02/14/2018 11:30 AM CDT Symptomatic carotid artery narrowing without infarction, left Case Notes MEDICARE PART B, I65.22 Special Needs SUPINE ACT - POCT (IP) [facility] Routine 02/14/2018 1 1:25 AM CDT Hypercholesteremi a Carotid artery embolus, left PREPARE RBC LEUKOREDUCED UNIT STAT 02/14/2018 9:11 AM CDT Hypercholesteremi a TYPE + SCREEN PANEL ROD 02/14/2018 9 :05 AM CDT documented in this encounter Results * CARDIAC EKG ORDER (02/18/2018 9:04 PM CDT) Narrative 02/18/2018 9:04 PM CDT Ordered by an unspecified provider. Scanned Document CARDIAC SERVICES ORD ERABLES * ACT - POCT (IP) [facility] (02/14/2018 12:55 PM CDT) Activated Clotting Time 255 sec [facility] POCT TESTING Blood BLOOD SPECIMEN / Unknown 02/14/2018 12:55 PM CDT Kevin Bower MD LAB - POINT OF CARE ORDERABLES Performing Organization Address [facility] Co de Phone Number [facility] POCT TESTING [address] [place] [address] * ACT - POCT (IP) [facility] (02/14/2018 11:25 AM CDT) Activated Clotting Time 138 sec [facility] POCT TESTING Blood BLOOD SPECIMEN / Unknown 02/14/2018 11:25 AM CDT Kevin Bower MD LAB - POINT OF CARE ORDERABLES Performing Organization Address [facility] de Phone Number [facility] POCT TESTING [address] [place] [address] * PREPARE (CROSSMATCH) RBC UNIT(S), 2 Units (02/14/2018 9:11 AM CDT) Unit Description LR Red Cells [facility] BLOOD BANK LAB Unit ABO O [facility] BLOOD [facility] LAB Unit Rh POS [facility] BLOOD [facility] LAB Product Code RL1 [facility] BLO OD BANK LAB Unit Donor # [id number] [facility] BLOOD [facility] LAB Unit Status released [facility] BLOO D BANK LAB Product Number [id number] [facility] B LOOD BANK LAB Blood Type Barcode 5100 [facility] BLOOD BANK LAB Unit Description LR Red Cells [facility] BLOOD [facility]ANK LAB Unit ABO O [facility] BLOOD [facility] LAB Unit Rh POS [facility]LO[facility] Product Code RL3 [facility] BLO OD BANK LAB Unit Donor # [id number] [facility] BLOOD [facility] LAB Unit Status released [facility] BLOO D BANK LAB Product Number [id number] [facility] B LOOD BANK LAB Blood Type Barcode 5100 [facility] BLOOD BANK LAB Blood Bank BLOOD SPECIMEN / Unknown 02/14/2018 9:11 AM CDT 02/14/2018 9:11 AM CDT Ester Barajas DO LAB - BLOOD BANK OR DERABLES [facility] BLOOD BANK LAB [address] * TYPE + SCREEN PANEL (02/14/2018 9:05 AM CDT) Antibody Screen NEG 8 9:58 AM CDT [facility] BLOOD BANK LAB ABO Rh O POS 02/14/2018 9:58 AM CDT [facility] BLOOD BANK LAB Blood Bank BLOOD SPECIMEN / Unknown Venipuncture / Unknown 02/14/2018 9:05 AM CDT 02/14/2018 9:10 AM CDT Paulina Andujar DESIGN SALES CONSULTANT-[employer] LAB - BLOOD BA NK ORDERABLES Performing Organization Address City/[facility]/ZIP Co de Phone Number [facility] BLOOD BANK LAB [address] documented in this encounter Visit Diagnoses Diagnosis Carotid artery embolus, left- Primary Hypercholesteremia Pure hypercholesterolemia Carotid artery embolus, left documented in this encounter Administered Medications Inactive Administered Medications - up to 3 most recent administrations Medication Order MAR Action Action Date Dose Rate Site 0.9% NaCl infusion ADS Med 1 dose, Starting on Sat02/14/18 at 2351, Until Sat02/14/18 at 2356, Gloria Quinones: cabinet override $ New Bag/Syringe 02/14/2018 11:56 PM CDT 0.9% NaCl infusion at 75 mL/hr, Intravenous, CONTINUOUS, Starting on Sat02/14/18 at 1445, Until Sat02/14/18 at 2244, Post-op $ New Bag/Syringe 02/14/2018 2:31 PM CDT 75 mL/hr aspirin (ASPIRIN) chew tablet 81 mg 81 mg, Oral, DAILY, 365 doses, First dose on 02/15/18 at 0915, Last dose on 02/14/19 at 0900 $ Given 02/15/2018 9:15 AM CDT 81 mg fentaNYL (PF) (SUBLIMAZE) injection 50 mcg 50 mcg, Intravenous, EVERY 10 MIN PRN, Severe Pain, 4 doses, Starting on Sat02/14/18 at 1326, Until Sat02/14/18 at 1816, Maximum total of 4 doses If patient reaches max total dose, please consult anesthesiologist prior to further administration of pain meds. Hold pain meds if there are signs of hypoventilation., PACU $ Given 02/14/2018 1:31 PM CDT 50 mcg lactated ringers infusion at 20 mL/hr, Intravenous, PRE-OP CONTINUOUS, Starting on Sat02/14/18 at 0845, Until Sat02/14/18 at 1816, Pre-op $ New Bag/Syringe 02/14/2018 9:22 AM CDT 20 mL/hr levothyroxine (SYNTHROID) tablet 137 mcg 137 mcg, Oral, DAILY BEFORE BREAKFAST, 365 doses, First dose on 02/15/18 at 0815, Last dose on 02/14/19 at 0715, Take in the morning on an empty stomach. Do not give within 4 hours of antacids, iron or calcium supplements. $ Given 02/15/2018 9:14 AM CDT 137 mcg ondansetron (ZOFRAN) injection 4 mg 4 mg, Intravenous, ONCE PRN, Nausea/Vomiting, Starting on Sat02/14/18 at 1326, Until Sat02/14/18 at 1816, First choice, PACU $ Given 02/14/2018 2:25 PM CDT 4 mg prochlorperazine (COMPAZINE) injection 10 mg 10 mg, Intravenous, ONCE PRN, Nausea/Vomiting, Starting on Sat02/14/18 at 1326, Until Sat02/14/18 at 1816, Second choice, use if first choice was ineffective., PACU $ Given 02/14/2018 3:55 PM CDT 10 mg rivaroxaban (XARELTO) tablet 20 mg 20 mg, Oral, DAILY, 365 doses, First dose on 02/15/18 at 0900, Last dose on 02/14/19 at 0900, For tube administration, please refer to the MAR References links: Administration $ Given 02/15/2018 10:40 AM CDT 20 mg documented in this encounter Active and Recently Administered Medications Times are shown in CDT. Scheduled Medication Order 02/13/2018 02/14/2018 02/15/2018 aspirin (ASPIRIN) chew tablet 81 mg 81 mg, Oral, DAILY, 365 doses, First dose on 02/15/18 at 0915, Last dose on 02/14/19 at 0900 0915 ($ Given - Provider: Niya Rodas RN) atorvastatin (LIPITOR) tablet 20 mg 20 mg, Oral, AT BEDTIME, 365 doses, First dose on Sat02/15/18 at 2100, Last dose on Sat02/14/19 at 2100 clindamycin (CLEOCIN) 900 mg in 50 mL IVPB (COMPLETED) 900 mg, at 100 mL/hr, Intravenous, PRE-OP ONCE, 1 dose, On Sat02/14/18 at 0836, Indication for anti-infective therapy: Surgical prophylaxis, Site of anti-infective therapy: Skin/soft tissue, Wound 1119 ($ Given - Provider: Dominic Perea DO) levothyroxine (SYNTHROID) tablet 137 mcg 137 mcg, Oral, DAILY BEFORE BREAKFAST, 365 doses, First dose on Sat02/15/18 at 0815, Last dose on Sat02/14/19 at 0715, Take in the morning on an empty stomach. Do not give within 4 hours of antacids, iron or calcium supplements. 0914 ($ Given - Provider: Niya Rodas RN) rivaroxaban (XARELTO) tablet 20 mg 20 mg, Oral, DAILY, 365 doses, First dose on Sat02/15/18 at 0900, Last dose on Sat02/14/19 at 0900, For tube administration, please refer to the MAR References links: Administration 1040 ($ Given - Provider: Niya Rodas RN) Continuous Medication Order 02/13/2018 02/14/2018 02/15/2018 0.9% NaCl infusion () at 75 mL/hr, Intravenous, CONTINUOUS, Starting on Sat02/14/18 at 1445, Until Sat02/14/18 at 2244, Post-op 1431 ($ New Bag/Syringe - Provider: Melyssa Rojo RN) lactated ringers infusion (CANCELED) at 20 mL/hr, Intravenous, PRE-OP CONTINUOUS, Starting on Sat02/14/18 at 0845, Until Sat02/14/18 at 1816, Pre-op 0922 ($ New Bag/Syringe - Provider: Peggy Adame RN) PRN Medication Order 02/13/2018 02/14/2018 02/15/2018 fentaNYL (PF) (SUBLIMAZE) injection 50 mcg (CANCELED) 50 mcg, Intravenous, EVERY 10 MIN PRN, Severe Pain, 4 doses, Starting on Sat02/14/18 at 1326, Until Sat02/14/18 at 1816, Maximum total of 4 doses If patient reaches max total dose, please consult anesthesiologist prior to further administration of pain meds. Hold pain meds if there are signs of hypoventilation., PACU 1331 ($ Given - Provider: Rufina Macdonald RN) heparin (Dialysis/OR: Not for IV Use, No Dual Sign Off) 1,000 Units in 0.9% NaCl 1,000 mL irrigation (CANCELED) 1,000 Units, PRN, Starting on Sat02/14/18 at 1229, Until Sat02/14/18 at 1305, Intra-op 1229 ($ Given - Provider: Too Lara MD) iodixanol (VISIPAQUE 320) injection (CANCELED) PRN, Starting on Sat02/14/18 at 1230, Until Sat02/14/18 at 1305, Intra-op 1230 ($ Given - Provider: Too Lara MD - Comment: given to sterile field, 30 mL used) ondansetron (ZOFRAN) injection 4 mg (CANCELED) 4 mg, Intravenous, ONCE PRN, Nausea/Vomiting, Starting on Sat02/14/18 at 1326, Until Sat02/14/18 at 1816, First choice, PACU 1425 ($ Given - Provider: Melyssa Rojo, MIKHAIL) prochlorperazine (COMPAZINE) injection 10 mg (CANCELED) 10 mg, Intravenous, ONCE PRN, Nausea/Vomiting, Starting on Sat02/14/18 at 1326, Until Sat02/14/18 at 1816, Second choice, use if first choice was ineffective., PACU 1555 ($ Given - Provider: Melyssa Rojo, MIKHAIL) No Frequency Medication Order 02/13/2018 02/14/2018 02/15/2018 0.9% NaCl infusion ADS Med (COMPLETED) 1 dose, Starting on Sat02/14/18 at 2351, Until Sat02/14/18 at 2356, Gloria Quinones: cabinet override 2356 ($ New Bag/Syringe - Provider: Gloria Quinones RN) documented in this encounter Care Teams Flight Operation Coordinator Relationship Specialty Start Date End Date Dominic Fernando MD [address] [place] [id number] PCP - General 02/06/18 04/06/19 documented as of this encounter
--- OUTSIDE RECORDS SUMMARY | 2024-09-04 17:08 | XMS_ITS | Encounter Summary ---
Author Organization [facility] Address [address] [place] [address] Care Team Providers Care Insurance Rater Name Role Phone Unavailable Primary Care Provider Unavailabl e Reason for Visit * Reason Comments Fall Pt states she was he re yesterday. Tripped on the WR rug and landed on a wheelchair. Encounter Details Date Type Department Care Team (Late st Contact Info) Description 08/19/2014 2:25 AM COATING MIXER - 08/19/2014 4:44 AM COATING MIXER Emergency ER at [address] [address] Dom Grimaldo MD [address] [place] [address] EMERGENCY DEPT [place], [place] [id number] Fall, initial encounter; Back pain; Musculoskeletal pain Discharge Disposition: Home or Self Care Social History Tobacco Use Types Packs/Day Years Used Date Smoking Tobacco: Every Day Cigarettes Alcohol Use Standard Drinks/Week Comments No 0 (1 standard drink = 0.6 oz pur e alcohol) Sex and Gender Information Value Date Recorded Sex Assigned at Not on file Gender Identity Not on file Sexual Orientation Not on file documented as of this encounter Last Filed Vital Signs Vital Sign Reading Time Taken Comments Blood Pressure 117/65 08/19/2014 4:36 AM COATING MIXER Pulse 89 08/19/2014 4:36 AM COATING MIXER Temperature 36.5 ??C (97.7 ??F) 08/19/2014 12:[address] Respiratory Rate 18 08/19/2014 4:36 AM COATING MIXER Oxygen Saturation 100% 08/19/2014 4:36 AM COATING MIXER Inhaled Oxygen Concentration - - Weight 86.2 kg (190 lb) 08/19/2014 12:02 AM COATING MIXER Height 162.6 cm (5' 4 ) 08/19/2014 12:02 AM COATING MIXER Body Mass Index 32.61 08/19/2014 12:02 AM COATING MIXER documented in this encounter Discharge Instructions * Discharge Instructions* Dom Grimaldo MD - 08/19/2014 4:29 AM COATING MIXER Images from the original note were not included. Back Pain, Adult Back pain is very common. The pain often gets better over time. The cause of back pain is usually not dangerous. Most people can learn to manage their back pain on their own. HOME CARE ?? Stay active. Start with short walks on flat ground if you can. Try to walk farther each day. ?? Do not sit, drive, or engineering lecturer one place for more than 30 minutes. Do not stay in bed. ?? Do not avoid exercise or work. Activity can help your back heal faster. ?? Be careful when you bend or lift an object. Bend at your knees, keep the object close to you, and do not twist. ?? Sleep on a firm mattress. Lie on your side, and bend your knees. If you lie on your back, put a pillow under your knees. ?? Only take medicines as told by your doctor. ?? Put ice on the injured area. ?? Put ice in a plastic bag. ?? Place a towel between your skin and the bag. ?? Leave the ice on for 15-20 minutes, 3-4 times a day for the first 2 to 3 days. After that, you can switch between ice and heat packs. ?? Ask your doctor about back exercises or massage. ?? Avoid feeling anxious or stressed. Find good ways to deal with stress, such as exercise. GET HELP RIGHT AWAY IF: ?? Your pain does not go away with rest or medicine. ?? Your pain does not go away in 1 week. ?? You have new problems. ?? You do not feel well. ?? The pain spreads into your legs. ?? You cannot control when you poop (bowel movement) or pee (urinate). ?? Your arms or legs feel weak or lose feeling (numbness). ?? You feel sick to your stomach (nauseous) or throw up (vomit). ?? You have belly (abdominal) pain. ?? You feel like you may pass out (faint). MAKE SURE YOU: ?? Understand these instructions. ?? Will watch your condition. ?? Will get help right away if you are not doing well or get worse. Document Released: 02/18/2009 Document Revised: 11/24/2012 Document Reviewed: 01/21/2012 ExitCare?? Patient Information ??2014 [employer]. Musculoskeletal Pain Musculoskeletal pain is muscle and sukhwinder aches and pains. These pains can occur in any part of the body. Your caregiver may treat you without knowing the cause of the pain. They may treat you if blood or urine tests, X-rays, and other tests were normal. CAUSES There is often not a definite cause or reason for these pains. These pains may be caused by a type of germ (virus). The discomfort may also come from overuse. Overuse includes working out too hard when your body is not fit. Sukhwinder aches also come from weather changes. Bone is sensitive to atmospheric pressure changes. HOME CARE INSTRUCTIONS ?? Ask when your test results will be ready. Make sure you get your test results. ?? Only take iisq-gbd-msrodsw or prescription medicines for pain, discomfort, or fever as directed by your caregiver. If you were given medications for your condition, do not drive, operate machineryor power tools, or sign legal documents for 24 hours. Do not drink alcohol. Do not take sleeping pills or other medications that may interfere with treatment. ?? Continue all activities unless the activities cause more pain. When the pain lessens, slowly resume normal activities. Gradually increase the intensity and duration of the activities or exercise. ?? During periods of severe pain, bed rest may be helpful. Lay or sit in any position that is comfortable. ?? Putting ice on the injured area. ?? Put ice in a bag. ?? Place a towel between your skin and the bag. ?? Leave the ice on for 15 to 20 minutes, 3 to 4 times a day. ?? Follow up with your caregiver for continued problems and no reason can be found for the pain. Ifthe pain becomes worse or does not go away, it may be necessary to repeat tests or do additional testing. Your caregiver may need to look further for a possible cause. SEEK IMMEDIATE MEDICAL CARE IF: ?? You have pain that is getting worse and is not relieved by medications. ?? You develop chest pain that is associated with shortness or breath, sweating, feeling sick to your stomach (nauseous), or throw up (vomit). ?? Your pain becomes localized to the abdomen. ?? You develop any new symptoms that seem different or that concern you. MAKE SURE YOU: ?? Understand these instructions. ?? Will watch your condition. ?? Will get help right away if you are not doing well or get worse. Document Released: 09/02/2006 Document Revised: 11/24/2012 Document Reviewed: 04/22/2009 ExitCare?? Patient Information ??2014 [employer]. Low Cost Clinics (You may qualify for free service) If you are NOT a legal resident, citizen or refugee and don???t have health insurance you can go tothe following clinics: [facility] [address] [place] [address] Appointments: [phone] [facility], [facility] [address] [place] [address] [facility] [address] [address] Appointments: [phone] [facility], [facility] [address] [place] [address] [facility] [address] [place] [address] [facility], [facility] [address] [place] [address] [facility] [address] [place] [address] [facility] [address] [place] [address] [facility] [address] [place] [address] Appointments: [phone] [facility] - [facility] [address] [place] [address] without health insurance and you are not a citizen, refugee or legal resident yet? You may qualify to receive ???Medicaid for Women?? and it is free. For more information, call one of the Locations listed above If your child was born in the [place] or is a legal resident for more than 5 years, he/she may be eligible for free or low cost health insurance: MC+: If the child is not eligible, you can still bring him/her to the clinics listed above to receive medical check-ups, shots and treatments For information about low cost medicines, call: ING MIXER documented in this encounter Medications at Time of Discharge Medication Sig Dispensed Refills Start Date End Date ibuprofen (MOTRIN) 600 MG tablet Take 1 Tab by mouth every 6 hours as needed for Pain. 20 Tab 0 08/19/2014 02/07/2018 oxyCODONE-acetaminophen (PERCOCET) 5-325 MG tablet Take 1 Tab by mouth every 4 hours as needed for Pain. 15 Tab 0 08/19/2014 02/07/2018 documented as of this encounter ED Notes * Dom Grimaldo MD - 08/19/2014 2:49 AM CST Provider contact with the patient: 08/19/2014 02:49 Gege Vidal [id number] [facility] History Chief Complaint Patient presents with ??? Fall Pt states she was here yesterday. Tripped on the WR rug and landed on a wheelchair. Chief complaint narrative was entered by triage nurse, not by physician. HPI Comments: 2:49 AM Gege Vidal, a 54 y.o. female with a past medical history that includes--high cholesterol and hypothyroid--presents to the ER s/p fall yesterday. Pt states she tripped over a rug and then fell, hit a wheel chair and hit knees on the ground. Pt reports pain to right thumb, right shoulder and lower back. Pt denies feeling CP, SOB, HAIR, dizziness or abd pain prior to or after falling. Pt denies any back surgeries in the past. PCP: No primary provider on file. Fall The history is provided by the patient. She came to the ER via personal transport. The accident occurred yesterday. The fall occurred walking.She landed on a hard floor. The amount of blood lost was no blood loss. The point of impact was the right side. The injury/pain location is right shoulder, right hand and lower back.The pain is at a severity of 3/10. There was no loss of consciousness. There has been no visual change, no fever, no numbness, no abdominal pain, no bowel incontinence, no nausea, no vomiting, no hematuria, no headaches, no loss of consciousness, no tingling, no skin laceration, no seizures, no chest pain, no shortness of breath, no confusion and no neck pain. Past Medical History Diagnosis Date ??? Hypothyroid ??? High cholesterol Past Surgical History Procedure Laterality Date ??? Hysterectomy, partial 1989 ??? Cervical fusion ??? Rotator cuff repair Right ??? Knee arthroplasty No family history on file. History Social History ??? Marital Status: Spouse Name: N/A Number of Children: N/A ??? Years of Education: N/A Occupational History ??? Not on file. Social History Main Topics ??? Smoking status: Current Every Day Smoker -- 1.00 packs/day ??? Smokeless tobacco: Not on file ??? Alcohol Use: No ??? Drug Use: No ??? Sexual Activity: Not on file Other Topics Concern ??? Not on file Social History Narrative Review of Systems Review of Systems Constitutional: Negative for fever and chills. HENT: Negative for congestion and sore throat. Eyes: Negative for blurred vision and double vision. Respiratory: Negative for cough and shortness of breath. Cardiovascular: Negative for chest pain and leg swelling. Gastrointestinal: Negative for nausea, vomiting, abdominal pain and bowel incontinence. Genitourinary: Negative for dysuria and hematuria. Musculoskeletal: Positive for back pain, joint pain (R thumb and shoulder) and falls. Neurological: Negative for dizziness, tingling, sensory change, focal weakness, loss of consciousness, numbness and headaches. Endo/Heme/Allergies: Does not bruise/bleed easily. Psychiatric/Behavioral: Negative for confusion. All other systems reviewed and are negative. Physical Exam BP 152/87 Pulse 77 Temp(Src) 97.7 ??F Resp 18 Ht 1.626 m (5' 4 ) Wt 86.183 kg (190 lb) BMI 32.60 kg/m2 SpO2 100% Physical Exam Constitutional: She is oriented to person, place, and time. She appears well- developed and well-nourished. No distress. HENT: Head: Normocephalic and atraumatic. Eyes: EOM are normal. Pupils are equal, round, and reactive to light. Neck: Normal range of motion. Cardiovascular: Normal rate and regular rhythm. No murmur heard. Pulmonary/Chest: Effort normal and breath sounds normal. No respiratory distress. She has no wheezes. She has no rales. Abdominal: Soft. She exhibits no distension. There is no tenderness. There is no CVA tenderness. Musculoskeletal: Normal range of motion. She exhibits tenderness (lower lumbar). She exhibits no edema. Neurological: She is alert and oriented to person, place, and time. She is not disoriented. GCS eyesubscore is 4. GCS verbal subscore is 5. GCS motor subscore is 6. Skin: Skin is warm and dry. Psychiatric: She has a normal mood and affect. Nursing note and vitals reviewed. Medications Current Outpatient Prescriptions Medication Sig Dispense Refill ??? ibuprofen (MOTRIN) 600 MG tablet Take 1 Tab by mouth every 6 hours as needed for Pain. 20 Tab 0 ??? oxyCODONE-acetaminophen (PERCOCET) 5-325 MG tablet Take 1 Tab by mouth every 4 hours as needed for Pain. 15 Tab 0 Procedures Procedures ECG Interpretation ECG Interpretation Lab Interpretation Oxygen Saturation Interpretation The oxygen saturation level is: 100%. The patient was on Room Air for the saturation measurement. Measurement frequency: Spot Check. Oxygen saturation interpretation is Normal. Intervention(s) used: None. No results found for this visit on 08/19/14. XR SHOULDER 2+ VW RIGHT NAD, no fracture seen per Dr. Grimaldo XR LUMBAR SPINE 4+ VW NAD, no fracture seen per Dr. Grimaldo Progress Notes ED Course Medical Decision Making I have reviewed the: Previous Chart, Nursing Notes and Vitals. I have interpreted the following results: X-Ray and Oxygen Saturation. X-rays are negative for an acute injury seen. 4:28 AM Rechecked pt - Pt resting in NAD. Pt will be d/c home with prescriptions for Motrin and Percocet. Pt is medically stable for d/c home at this time. I have given the patient instructions regarding her diagnosis, expectations, follow up, and return precautions. I explained to the patient that emergent conditions may arise and to return to the ER for new, worsening, or any persistent conditions. I've explained the importance of following up with her doctor--No primary provider on file.--(or the referral physician) as instructed. The patient verbalized understanding of the discharge instructions. Orders Placed This Encounter ??? XR SHOULDER 2+ VW RIGHT ??? XR LUMBAR SPINE 4+ VW ??? HYDROmorphone PF (DILAUDID) injection 0.5 mg ??? ibuprofen (MOTRIN) 600 MG tablet ??? oxyCODONE-acetaminophen (PERCOCET) 5-325 MG tablet Diagnosis: Final diagnoses: Fall, initial encounter Back pain Musculoskeletal pain New Medications: New Prescriptions IBUPROFEN (MOTRIN) 600 MG TABLET Take 1 Tab by mouth every 6 hours as needed for Pain. OXYCODONE-ACETAMINOPHEN (PERCOCET) 5-325 MG TABLET Take 1 Tab by mouth every 4 hours as needed for Pain. I have advised the patient to follow-up with: [place] [id number] [address] Follow up with your doctor or the referred doctor for further evaluation. Disposition: Discharged I have reviewed the information recorded by the scribe and agree with its accuracy and contents--Dr. Grimaldo 08/19/2014 4:38 AM Transcribed by Catherine Tay acting scribe on behalf of Dr. Grimaldo 08/19/2014 3:35 AM ING MIXER * Risa Marroquin - 08/19/2014 2:37 AM CST Pt presents to ED with c/o R shoulder, lower back, and R thumb pain. Pt states she was here visiting in ED on 08/17 when she tripped over WR rug and landed on a wheelchair. Pt rates pain 8/10 with movement. Pt updated to plan of care. Will continue to monitor. ING MIXER documented in this encounter Plan of Treatment Not on file documented as of this encounter Procedures Procedure Name Priority Date/Time Associated Diagnosis Comments XR LUMBAR SPINE 4VW OR MORE STAT 08/19/2014 3:54 AM COATING MIXER Fall, initial encounter XR SHOULDER RIGHT 2VW OR MORE STAT 08/19/2014 3:54 AM COATING MIXER Fall, initial encounter documented in this encounter Results * XR LUMBAR SPINE 4+ VW (08/19/2014 3:54 AM COATING MIXER) Anatomical Region Laterality Modality Spine Radiographic Yulisa ging 08/19/2014 7:39 AM COATING MIXER Impressions 08/19/2014 8:06 AM COATING MIXER Mild degenerative changes. Edited by Juanita Odonnell on 08/19/2014 7:51 AM Narrative 08/19/2014 8:06 AM COATING MIXER LUMBAR SPINE 5 VIEWS INDICATION: Low back [...] SHOULDER 2+ VW RIGHT (08/19/2014 3:54 AM COATING MIXER) Anatomical Region Laterality Modality Upper Extremity Radiographic Yulisa ging 08/19/2014 8:04 AM COATING MIXER Impressions 08/19/2014 8:04 AM COATING MIXER No fracture. Narrative 08/19/2014 8:04 AM COATING MIXER Right shoulder 2 views unilateral Indication: Right shoulder pain 2 views of the right shoulder show no acute fracture or dislocation or destructive lesion. There is no radiopaque foreign body. Procedure Note Jaz Rod MD - 08/19/2014 Right shoulder 2 views unilateral Indication: Right shoulder pain 2 views of the right shoulder show no acute fracture or dislocation or destructive lesion. There is no radiopaque foreign body. IMPRESSION No fracture. Dom Grimaldo MD DIAGNOSTIC IMAGING O RDERABLES documented in this encounter Visit Diagnoses Diagnosis Fall, initial encounter Back pain Backache, unspecified Musculoskeletal pain Mylagia and myositis, unspecified documented in this encounter Administered Medications Inactive Administered Medications - up to 3 most recent administrations Medication Order MAR Action Action Date Dose Rate Site HYDROmorphone PF (DILAUDID) injection 0.5 mg 0.5 mg, Intramuscular, ONCE, 1 dose, On Melissa 08/19/14 at 0330 $ Given 08/19/2014 3:09 AM COATING MIXER 0.5 mg Ri ght Deltoid documented in this encounter Active and Recently Administered Medications Times are shown in COATING MIXER. Scheduled Medication Order 08/17/2014 08/18/2014 08/19/2014 HYDROmorphone PF (DILAUDID) injection 0.5 mg (COMPLETED) 0.5 mg, Intramuscular, ONCE, 1 dose, On Melissa 08/19/14 at 0330 0309 ($ Given - Prov ider: Risa Marroquin) documented in this encounter
--- OUTSIDE RECORDS SUMMARY | 2024-09-04 17:08 | XMS_ITS | Encounter Summary ---
Author Organization [facility] Address [address] [facility] [place] [address] Care Team Providers Care Farm Labor Contractor Name Role Phone Dominic Fernando MD Primary Care Provider [phone] Reason for Visit * Reason Onset Date Comments General 03/27/2018 Hit Head/Headach e Bloodthinner Concern Encounter Details Date Type Department Care Team (Late st Contact Info) Description 03/27/2018 Telephone [facility] [address] [place] [address] Too Lara MD [address] [address] General (Hit Head/Headache Bloodthinner Concern) Social History Tobacco Use Types Packs/Day Years Used Date Smoking Tobacco: Former Cigarettes 1 30 Smokeless Tobacco: Never Alcohol Use Standard Drinks/Week Comments No 0 (1 standard drink = 0.6 oz pur e alcohol) Sex and Gender Information Value Date Recorded Sex Assigned at Not on file Gender Identity Not on file Sexual Orientation Not on file documented as of this encounter Functional Status Functional Status Response [...] No 02/15/2018 documented as of this encounter Miscellaneous Notes * Telephone Encounter - Paulina Andujar APRN-CNP - 03/27/2018 9:14 AM CDT Spoke with Ms. Vidal and informed her to go to the ER ROD for eval and to have a family member drive her. Told her the nearest ER is appropriate, no need to come to [facility] er. States she hit the back of her head on cabinet between 03/24-03/25, had a slight headache, then hit the side of head against a cabinet yesterday and has had a worse headache and is slightly more sleepy. Able to move everything/c onversate normally, however informed her of increased concern for bleed given presence of blood thinners and likely need for CT scan to evaluate. She is agreeable to this plan * Telephone Encounter - Janelle Rondon - 03/27/2018 8:12 AM CDT Ms. Vidal called today and stated that she hit her head on a cabinet on 03/25 and 03/26. She has since experienced a headache and a feeling of being tired. She is concerned about the interaction with her blood thinners and would like to speak to someone about this. CB# [phone] documented in this encounter Plan of Treatment Not on file documented as of this encounter Visit Diagnoses Not on filedocumented in this encounter Care Teams Farm Labor Contractor Relationship Specialty Start Date End Date Dominic Fernando MD [address] [place] [id number] PCP - General 02/06/18 04/06/19 documented as of this encounter
--- OUTSIDE RECORDS SUMMARY | 2024-09-04 17:08 | XMS_ITS | Encounter Summary ---
Author Organization [facility] Address 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 Procedures ARTERIOGRAM/ANGIOGRAM Referral ID Status Reason Start Date Expiration Date Visits Re quested Visits Authorized [id number] 1 1 Encounter Details Date Type Department Care Team (Late st Contact Info) Description 02/14/2018 10:34 AM CDT Anesthesia Event [facility] [address] [place] [address] Shelby Dos Santos DO [address] [place] [address] Mahesh Medina DO Anesthesia Record Procedure Summary Procedure Name Responsible Anesthesiologist Anesthesia Start Time Anesthesia Stop Time LEFT CAROTID EXPLORATION, LEFT CAROTID ANGIOGRAM (Left: Neck) Shelby Dos Santos DO 02/14/18 1034 02/14/18 1253 Events Date Time Event Comment 02/14/2018 1014 1034 Pt In Room 1034 An Start 1034 An Start Data 1040 Anes Timeout 1040 PT Reassessment 1041 Quick Note Cerebral oximet er L 74 R 68 1042 Induction 1043 Quick Note Pre-induction c erebral oximeter - L 74, R 71 1051 An Intubation 1056 Insert Art Line 1058 Anes Ready 1113 Quick Note Cerebral oximet er L 67 R 67 1127 Time Out Anesthesia part icipated in timeout at the time documented in the record by nursing 1128 Quick Note Act 138 1130 Proc Start 1145 an carlota now 1145 An Carotid On 1146 Quick Note L 50, R 50, claire geon aware 1159 Quick Note ACT 255 1233 Proc Stop 1233 An Emergence 1240 Extubation 1246 an stop data 1246 Pt out of Room 1246 ANPTO2 1253 An Stop Meds Name Total midazolam 2 mg/2mL injection 2 mg fentaNYL 100 mcg/2ml injection 125 mcg propofol 200mg/20mL injection 70 mg rocuronium 50 mg/5 mL injection 40 mg phenylephrine 100 mcg/mL injection 250 m cg ondansetron 4mg/2mL injection 4 mg sugammadex 200 mg/2mL injection 161 mg clindamycin (CLEOCIN) 900 mg in 50 mL IV PB 600 mg phenylephrine 20 mg in 250 mL 0 mg heparin 1000 units/ml injection 8,000 Un its LR (Lactated ringers) 0 mL Isolyte-S infusion 500 mL * Agents Name Exp. Sevoflurane Exp. N2O Insp. Sevoflurane * Blood No blood administrations on file. Lines, Drains, and Airways Type Details Placement Removal Peripheral IV Date: 02/14/18; Time : 0911; Orientation: Left; Placed By: MIKHAIL Kiser; Tolerance: Well 02/14/18 0911 by Peggy Adame RN 02/15/18 1030 by Niya Rodas RN Arterial Line Date: 02/14/18; Time : 1050; Placed By: Matthew Rinaldi DO; Location: radial; Orientation: Left; Gauge: 20; Anesthetic Used: Yes; Line Secured: Taped; Tolerance: Well 02/14/18 1050 by Dominic Perea DO 02/14/18 1350 by Rufina Macdonald RN ETT Date: 02/14/18; Time : 1051; Placed By: Shelby Dos Santos DO; Vent: easy mask; Induction: Standard IV; Blade Type: Jonna; Blade Size: 3; Laryngoscopy View: Grade 1 (full cords); Intubation Adjuncts: Stylet; Tube: Endotracheal Tube; Placement: Oral; Tube Type: Cuffed-inflated; Tube Size(mm): 7 MM; Depth of Insertion: 21 CM; Measured From: lips; Attempts: 1; Cuff Infated: Air; Cuff Vol(mL): 6 mL; Verified By: Direct visualization, Bilateral breath sounds, CO2 Monitor 02/14/18 1051 by Dominic Perea DO 02/14/18 1240 by Dominic Perea DO Peripheral IV Date: 02/14/18; Time : 1100; Orientation: Right; Placed By: LEONID; Tolerance: Well, General Anesthesia 02/14/18 1100 by Dominic Perea DO 02/15/18 1030 by Niya Rodas RN Urethral Catheter 02/14/18; 1100; Andr birdie Brown RN; Non-latex, Temperature probe; No; 16; 10 mL; General Anesthesia; 02/14/18; 1250; Per order 02/14/18 1100 by Aden Brown 02/14/18 1250 by Aden Brown Procedural Site (Incision) 02/14/18; 1223; Left; Neck; exofin; 02/15/18; 1659 02/14/18 1223 by Aden Brown 02/15/18 1659 by Generic, Auto Release documented in this encounter Social History Tobacco Use Types Packs/Day Years Used Date Smoking Tobacco: Former Cigarettes 1 30 Smokeless Tobacco: Never Alcohol Use Standard Drinks/Week Comments No 0 (1 standard drink = 0.6 oz pur e alcohol) Sex and Gender Information Value Date Recorded Sex Assigned at Not on file Gender Identity Not on file Sexual Orientation Not on file documented as of this encounter Progress Notes * Shelby Dos Santos DO - 02/14/2018 7:13 PM CDT ANESTHESIA POSTOP EVALUATION NOTE Procedure: LEFT CAROTID EXPLORATION, LEFT CAROTID ANGIOGRAM (Left Neck) Gege Vidal is a 57 y.o. female Patient Vitals for the past 6 hrs: BP Pulse Resp Pulse - (SPO2/Cuff) SpO2 SP02 Frequency O2 DEVICE Activity Pain Scale/Observation Pain Rating Score #1 Pain Location Pain Orientation Pain Intervention(s) 02/14/18 1818 - - - - - - - - No/denies pain - - - - 02/14/18 1500 - - - - - Continuous Room Air In Bed - - Neck Left Declined Intervention 02/14/18 1430 - 63 17 62 bpm 97 % - - - - - - - - 02/14/18 1400 - 67 19 68 bpm 97 % - - - - - - - - 02/14/18 1355 - 67 17 67 bpm 97 % - Room Air - - - - - - 02/14/18 1350 121/59 66 14 66 bpm 95 % - - - - - - - - 02/14/18 1345 103/68 67 17 66 bpm 94 % - - - - - - - - 02/14/18 1340 115/58 67 15 67 bpm 96 % - Room Air - - 4 - - - 02/14/18 1335 118/59 70 13 70 bpm 96 % - - - - - - - - 02/14/18 1330 112/55 70 15 69 bpm 97 % - - - - - - - - 02/14/18 1325 117/60 71 - 71 bpm 97 % - Room Air - - 7 - - Medication (see MAR) 02/14/18 1320 118/64 72 - 71 bpm 99 % - - - - - - - - 02/14/18 1315 105/48 72 - 71 bpm 100 % - - - - - - - - Anesthesia Type: general Pre-op Diagnosis Codes: * Symptomatic carotid artery narrowing without infarction, left [I65.22] Postop Diagnosis: See Surgeon Note Mental Status: awake, alert and orientated Neuro Status: No numbess, tingling or visual disturbances Respiratory Function: natural Cardiac Function: stable Postop Pain: acceptable to the patient Postop Hydration: adequate Postop Nausea: none Assessment: no apparent anesthetic complications, patient tolerated procedure well and no evidence of recall Patient Disposition: Follow Up Needed documented in this encounter Procedure Notes * Dominic Perea DO - 02/14/2018 11:32 AM CDTAssociated Order(s): ARTERIAL LINE NOTE Arterial Line Placement Procedure Note Patient Location: OR. Procedure: arterial line ([id number]). Procedure Section Indications: hypotension, continuous blood pressure monitoring and blood sampling needed. Consent: informed consent was obtained for the procedure. Patient Sedated? Sedation given Sedation Type: general anesthesia Skin Prep: Chloraprep. Location: radial. Site Identification: palpation. Sterile Technique: cap, mask and sterile gloves. Local Anesthetic Used?: Yes. Local Type: lidocaine 1%. Gauge: 20. Seldinger Technique Used? Yes Number of Attempts: 2. Line Secured with: tape and Tegaderm. Procedure Tolerance: tolerated well. Procedure Start Time: 02/14/2018 10:50 AM. Procedure End Time: 02/14/2018 10:58 AM. Procedure Total Time: 8 minutes. Staff Section Anesthesia Provider: MATTHEW RINALDI, Performed * Dominic Perea DO - 02/14/2018 11:29 AM CDTAssociated Order(s): ENDOTRACHEAL TUBE NOTE Endotracheal Tube Placement: Patient Location: OR. Intubation Event Date/Time: 02/14/2018 10:51 AM Procedure: intubation ([id number]). Procedure Section: Sedation: under general anesthesia. Indications for Airway Management: anesthesia Pretreatment: 100% O2. Induction: standard IV and inhalation Patient Position: supine and sniffing Mask Ventilation: easy. Blade Type: Jonna Blade Size: 3 Laryngoscopy View: grade 1 (full cords) Intubation Adjuncts: stylet Device: endotracheal tube Placement: oral Tube type: cuff - inflated Tube Size (MM): 7 Measured From: lips Cuff volume (mL): 6 Cuff Inflated With: air Number of Attempts: 1. Placement Verified By: direct visualization, bilateral breath sounds, chest auscultation and CO2 monitor Tube secured with: adhesive tape. Difficult Airway? No. Procedure Start Time: 02/14/2018 10:51 AM. Procedure End Time: 02/14/2018 10:51 AM. Procedure Total Time: 0 minutes. Staff Section Anesthesia Provider: SHELBY DOS SANTOS, Performed * Dominic Perea DO - 02/14/2018 11:29 AM CDTAssociated Order(s): ENDOTRACHEAL TUBE NOTE Endotracheal Tube Placement: Patient Location: OR. Intubation Event Date/Time: 02/14/2018 10:51 AM Procedure: intubation ([id number]). Procedure Section: Sedation: under general anesthesia. Indications for Airway Management: anesthesia Pretreatment: 100% O2. Induction: inhalation and standard IV Patient Position: sniffing Mask Ventilation: easy. Blade Type: Jonna Blade Size: 3 Laryngoscopy View: grade 1 (full cords) Intubation Adjuncts: stylet Nasal Airway Size: 7 Device: endotracheal tube Placement: oral Tube type: cuff - inflated Tube Size (MM): 7 Depth of Insertion (CM): 21 Measured From: lips Cuff volume (mL): 6 Cuff Inflated With: air Number of Attempts: 1. Placement Verified By: direct visualization, bilateral breath sounds and CO2 monitor Tube secured with: adhesive tape. Difficult Airway? No. Procedure Start Time: 02/14/2018 10:51 AM. Procedure End Time: 02/14/2018 10:51 AM. Procedure Total Time: 0 minutes. Staff Section Anesthesia Provider: SHELBY DOS SANTOS, Performed documented in this encounter Consult Notes * Shelby Dos Santos DO - 02/07/2018 10:31 AM CDT ANESTHESIA PREOPERATIVE EVALUATION NOTE Procedure: LEFT CAROTID ANGIOGRAM WITH RETROGRADE LEFT COMMON CAROTID STENT WITH PATCH ANGIOPLASTY OF LEFT INTERNAL CAROTID (Left ) Vitals: Patient Vitals for the past 6 hrs: BP Temp Pulse Resp SpO2 02/07/18 0954 128/61 97.7 ??F (36.5 ??C) 83 16 97 % ANESTHESIA PRE-EVALUATION NOTE History of Present Illness: Gege Vidal is a 57 year old female presenting for LEFT CAROTID ANGIOGRAM WITH RETROGRADE LEFT COMMON CAROTID STENT WITH PATCH ANGIOPLASTY OF LEFT INTERNAL CAROTID (Left ) with Dr. Lara. PMH significant for left side CVA with aphasia (01/30/18m no residual weakenss), DVT x 3 (last in 1989; started on Xarelto 01/30/18, stopped 02/06 per Vascular with plan to continue on Plavix and aspirin till surgery), hyperlipidemia (atorvastatin), GERD (controlled with diet), cervical cancer s/p hyterectomy, hypothyroidism (levothyroxine), liver masses (image surveillance by PCP), and tobacco use (1 pdd x 30 years). History of difficult IV access. CTA: Proximal left ICA stenosis about 75%. ICA without significant disease. Physical Exam: Orientation: Orientation X3 Airway/Mallampati Score: II Neck ROM: limited (Hx neck fusion) Teeth: edentulous Heart: regular rate rhythm Lungs: normal Abdomen Exam: soft Review of Systems: History of anesthetic complications: Yes Difficult IV Access: Yes GERD: GERD: Yes, well controlled Poor Exercise Tolerance: No (Able to climb a flight of stairs) Recent Chest Pain: No Shortness of Breath: No AICD/Pacemaker: No Renal Disease: No Diagnostic Tests: ECG(s) reviewed: Yes Lab(s) reviewed: Yes. ANESTHESIA PLAN ASA Score: 3 NPO Status: Patient instructed to be NPO after midnight Anesthesia Plan: general ETT Planned Induction: intravenous Planned Adjuncts: art line Planned Postop Destination: PACU Anesthetic plan was discussed with: patient, family, daughter Anesthetic Plan discussion was: Consented The patient's procedural Anesthetic Plan with discussed with the resident. Attending Provider: I have reviewed the chart, I have interviewed and examined the patient, I agree with the documentation and have dicussed the anesthesia plan w/ the Resident, SENIOR COST ACCOUNTANT or AA and The pateint agrees with the plan and accpets the risks and benefits I attest to documenting, updating or reviewing a patient's current medications using all immediate resources available on the date of the encounter. This list must include ALL known prescriptions, wckp-gqm-zvynbqte, herbals, and vitamin/mineral/dietary (nutritional) supplements AND must contain the medications' name, dosages, frequency and route of administration. Attending's additional comments: Discussed the risks of anesthesia with the pt and family, they understand the risks of anesthesia include PA, CVA, hypotension, hypertension, as well as post op ventilation. They are ready to proceed. Plan for large bore IV access and arterial line. BMI, Height, Weight Tobacco History Estimated body mass index is 31.24 kg/(m^2) as calculated from the following: Height as of this encounter: 1.626 m (5' 4 ). Weight as of this encounter: 82.6 kg (182 lb). History Smoking Status ??? Current Every Day Smoker ??? Packs/day: 1.00 ??? Years: 30.00 ??? Types: Cigarettes Smokeless Tobacco ??? Never Used Alcohol History Drug History History Alcohol Use No History Drug Use No Outpatient Medications: Inpatient Medications: Current Outpatient Prescriptions Medication Sig Last Dose ??? XARELTO Take 20 mg by mouth once daily 02/06/2018 at Unknown time ??? ondansetron Take 4 mg by mouth as needed Past Month at Unknown time ??? atorvastatin 02/07/2018 at Unknown time ??? aspirin EC Take 81 mg by mouth once daily 02/07/2018 at Unknown time ??? levothyroxine Take 137 mcg by mouth daily before breakfast 02/07/2018 at Unknown time ??? cyanocobalamin Take 1,000 mcg by mouth once daily 02/07/2018 at Unknown time ??? clopidogrel Take 1 tablet by mouth once daily No current facility-administered medications for this visit. Allergies: Allergies Allergen Reactions ??? Latex Urticaria and Swelling ??? Codiene [Codeine] Shortness of Breath ??? Morphine Other hypotension ??? Pcn [Penicillins] Shortness of Breath ??? Vancomycin Other Marzena's syndrome ??? Adhesive Sensitivity Other Blisters ??? Food Other Alcohol- makes her break out in blisters Problem List: There are no active problems to display for this patient. Medical History: Past Medical History: Diagnosis Date ??? Anxiety ??? Cervical cancer ??? CVA (cerebral vascular accident) ??? Disorder of liver mass on liver ??? DVT (deep venous thrombosis) ??? GERD (gastroesophageal reflux disease) ??? High cholesterol ??? Hypothyroid ??? Pure hypercholesterolemia ??? Snoring Surgical History: Past Surgical History: Procedure Laterality Date ??? Bilateral Tubal Ligation (BTL) ??? Breast Biopsy ??? Cervical Fusion ??? Cholecystectomy ??? Cholecystectomy, Open ??? Hysterectomy ??? Hysterectomy, Partial 1990 ??? KNEE ARTHROPLASTY ??? Knee Arthroscopy Right x 3 ??? OTHER SURGERY right side abdomen fatty tumor removed ??? Rotator Cuff Repair Right ??? Shoulder Arthroscopy rotator cuff surgery x 3 ??? Tonsillectomy and Adenoidectomy ??? TUBAL LIGATION, LAPAROSCOPIC Lab Tests: No results for input(s): WBC, HGB, HCT, PLTCOUNT, PLATELET, INR, APT, PTT in the last 44767 hours. No results for input(s): NA, SODIUM, POTASSIUM, CHLORIDE, CO2, BUN, CREATININE, GFR in the last 96088 hours. No results for input(s): GLUCOSE, CALCIUM, MAGNESIUM, ALT, AST in the last 91657 hours. No results for input(s): HCG in the last 57008 hours. Perioperative Cardiac Risk Stratification based on 2014 ACC/AHA Guidelines Perioperative risk of a Major Adverse Cardiac Event (MACE). Add one point for each positive RCRI (Revised Cardiac Risk Index) Is the surgery high-risk? yes history of ischemic heart disease? no History of congestive heart failure? no History of cerebrovascular disease? yes Insulin-dependent Diabetes? no Preoperative creatinine > 2 mg/dl? no RCRI correlation with MACE (www.[employer].com/wsandkb-lgntrdp-ykyr-tkbie-trq-urutjoqdf-risk, originally validated by Jacob Grossman Circulation. 1999;100:9191-0195) 0 Points - 0.4% risk 1 Point - 0.9% risk 2 Points - 6.6% risk 3 or more Points - 11% risk This patient has 2 RCRI and the risk of MACE= 6.6 % Consults: Cardiology / medicine risk stratification requested: no Other consults pending: no CIEDs Patient does not have any CIEDs (cardiovascular implantable electronic device) Anticoagulants Is patient receiving antiplatelet/ anticoagulant medications. Yes - xarelto; plan to switch to Plavix and Aspirin per Vascular Blood products Does this procedure have a high risk of bleeding or anticipated blood loss > 250 ml? yes Previous transfusions? no T&S ordered prior to DOS? no Most recent EK02/07/2018 Sinus bradycardia Otherwise normal ECG Vent rate 57 bpm QTc 416 ms Additional laboratory testing needed: Labs ordered prior to DOS? yes - CBC, CMP, PT/INR, PTT - reviewed - WNL except INR 1.6 Labs ordered for DOS? YES - T&C 2 u Summary: Gege Vidal is a 57 y.o. female presenting for LEFT CAROTID ANGIOGRAM WITH RETROGRADE LEFT COMMON CAROTID STENT WITH PATCH ANGIOPLASTY OF LEFT INTERNAL CAROTID (Left ). she has an ASA score of ASA 3and 2 RCRI, which correlates with a MACE score of _6.6____%. She is medically optimized for this procedure. According to the 2014 ACC/ AHA guidelines, patient does not need further workup. Preoperative plan was discussed w/ PAT attending Preoperative plan and physical exam will be discussed w/ Attending in holding area. Ester Barajas DO 02/07/2018 11:16 AM Addendum Mahesh Medina DO 02/11/2018 1:20 PM documented in this encounter Miscellaneous Notes * Anesthesia Transfer of Care - Dominic Perea DO - 02/14/2018 12:58 PM CDT ANESTHESIA TRANSFER OF CARE NOTE Today's Date: 02/14/2018 Date of : 1960 Patient: Gege Vidal Procedure(s) with comments: LEFT CAROTID EXPLORATION, LEFT CAROTID ANGIOGRAM - [id number] [facility] Medicare Part B Surgeon(s): Primary: Too Lara MD Preop Diagnosis: Pre-op Diagnois: * Symptomatic carotid artery narrowing without infarction, left [I65.22] Post-op Diagnosis: * Symptomatic carotid artery narrowing without infarction, left [I65.22] . Allergies Allergen Reactions ??? Latex Urticaria and Swelling ??? Codiene [Codeine] Shortness of Breath ??? Morphine Other hypotension ??? Pcn [Penicillins] Shortness of Breath ??? Vancomycin Other Marzena's syndrome ??? Adhesive Sensitivity Other Blisters ??? Food Other Alcohol- makes her break out in blisters Vitals: No data found. Lines, Drains, and Airways Type Details Placement Removal Peripheral IV 02/14/18; 0911; Left; Hand; MIKHAIL Kiser; 20 Gauge; 1; Well 02/14/18 0911 by Peggy Adame RN Arterial Line 02/14/18; 1050 (created via procedure documentation); Matthew Rinaldi DO; Left; radial; 20; Yes; Taped; Well 02/14/18 1050 by Dominic Perea DO ETT 02/14/18; 1051 (created via procedure documentation); Shelby Dos Santos DO; easy mask; Standard IV; Jonna; 3; Grade 1 (full cords); Stylet; Endotracheal Tube; Oral; Cuffed-inflated; 7 MM; 21 CM; lips; 1; Air; 6 mL; Direct visualization, Bilateral breath sounds, CO2 Monitor; 02/14/18; 1240 02/14/18 1051 by Dominic Perea DO 02/14/18 1240 by Dominic Perea DO Peripheral IV 02/14/18; 1100; Right; Hand; LEONID; 18 Gauge; Anatomical Landmarks; 1; None; Gato, General Anesthesia 02/14/18 1100 by Dominic Perea DO Intraprocedure I/O Totals Urine Output Urine 60 mL Isolyte-S infusion Volume infused 500 ml Patient Transfer Location: PACU Transport Airway: supplemental O2 and spontaneous respirations Complications: None Handoff Given? Yes Checklist or Protocol - The cobb handoff elements that must be included in the transfer of care checklist include: 1. Identification of patient. 2. Identification of responsible practitioner (PACU nurse or advanced practitioner). 3. Discussion of pertinent medical history. 4. Discussion of the surgical/procedure course (procedure, reason for surgery, procedure performed). 5. Intraoperative anesthetic management and issue/concerns. 6. Expectations/Plans for the early post-procedure period. 7. Opportunity for questions and acknowledgement of understanding of report from the receiving PACUteam. Dominic Perea DO documented in this encounter Plan of Treatment Not on file documented as of this encounter Procedures Procedure Name Priority Date/Time Associated Diagnosis Comments ARTERIAL LINE NOTE Routine 02/14/2018 11 :34 AM CDT Procedure Note - Dominic Perea DO - 02/14/2018 11:32 AM CDTThis note is in progress. Arterial Line Placement Procedure Note Patient Location: OR. Procedure: arterial line ([id number]). Procedure Section Indications: hypotension, continuous blood pressure monitoring and bloodsampling needed. Consent: informed consent was obtained for the procedure. Patient Sedated? Sedation given Sedation Type: general anesthesia Skin Prep: Chloraprep. Location: radial. Site Identification: palpation. Sterile Technique: cap, mask and sterile gloves. Local Anesthetic Used?: Yes. Local Type: lidocaine 1%. Gauge: 20. Seldinger Technique Used? Yes Number of Attempts: 2. Line Secured with: tape and Tegaderm. Procedure Tolerance: tolerated well. Procedure Start Time: 02/14/2018 10:50 AM. Procedure End Time: 02/14/2018 10:58 AM. Procedure Total Time: 8 minutes. Staff Section Anesthesia Provider: MATTHEW RINALDI, Performed ENDOTRACHEAL TUBE NOTE Routine 02/14/2018 11:32 AM CDT Procedure Note - Dominic Perea DO - 02/14/2018 11:29 AM CDTThis note is in progress. Endotracheal Tube Placement: Patient Location: OR. Intubation Event Date/Time: 02/14/2018 10:51 AM Procedure: intubation ([id number]). Procedure Section: Sedation: under general anesthesia. Indications for Airway Management: anesthesia Pretreatment: 100% O2. Induction: inhalation and standard IV Patient Position: sniffing Mask Ventilation: easy. Blade Type: Jonna Blade Size: 3 Laryngoscopy View: grade 1 (full cords) Intubation Adjuncts: stylet Nasal Airway Size: 7 Device: endotracheal tube Placement: oral Tube type: cuff - inflated Tube Size (MM): 7 Depth of Insertion (CM): 21 Measured From: lips Cuff volume (mL): 6 Cuff Inflated With: air Number of Attempts: 1. Placement Verified By: direct visualization, bilateral breath sounds andCO2 monitor Tube secured with: adhesive tape. Difficult Airway? No. Procedure Start Time: 02/14/2018 10:51 AM. Procedure End Time: 02/14/2018 10:51 AM. Procedure Total Time: 0 minutes. Staff Section Anesthesia Provider: SHELBY DOS SANTOS Performed ENDOTRACHEAL TUBE NOTE Routine 02/14/2018 11:31 AM CDT Procedure Note - Dominic Perea DO - 02/14/2018 11:29 AM CDTThis note is in progress. Endotracheal Tube Placement: Patient Location: OR. Intubation Event Date/Time: 02/14/2018 10:51 AM Procedure: intubation ([id number]). Procedure Section: Sedation: under general anesthesia. Indications for Airway Management: anesthesia Pretreatment: 100% O2. Induction: standard IV and inhalation Patient Position: supine and sniffing Mask Ventilation: easy. Blade Type: Jonna Blade Size: 3 Laryngoscopy View: grade 1 (full cords) Intubation Adjuncts: stylet Device: endotracheal tube Placement: oral Tube type: cuff - inflated Tube Size (MM): 7 Measured From: lips Cuff volume (mL): 6 Cuff Inflated With: air Number of Attempts: 1. Placement Verified By: direct visualization, bilateral breath sounds,chest auscultation and CO2 monitor Tube secured with: adhesive tape. Difficult Airway? No. Procedure Start Time: 02/14/2018 10:51 AM. Procedure End Time: 02/14/2018 10:51 AM. Procedure Total Time: 0 minutes. Staff Section Anesthesia Provider: SHELBY DOS SANTOS Performed documented in this encounter Visit Diagnoses Not on filedocumented in this encounter Administered Medications Inactive Administered Medications - up to 3 most recent administrations Medication Order MAR Action Action Date Dose Rate Site clindamycin (CLEOCIN) 900 mg in 50 mL IVPB 900 mg, at 100 mL/hr, Intravenous, PRE-OP ONCE, 1 dose, On Sat02/14/18 at 0836, Indication for anti-infective therapy: Surgical prophylaxis, Site of anti-infective therapy: Skin/soft tissue, Wound $ Given 02/14/2018 11:19 AM CDT 600 mg fentaNYL (PF) (SUBLIMAZE) injection Intravenous, PRN, Starting on Sat02/14/18 at 1044, Until Sat02/14/18 at 1258, Anesthesia Intra-op $ Given 02/14/2018 10:44 AM CDT 25 mcg $ Given 02/14/2018 10:43 AM CDT 50 mcg $ Given 02/14/2018 10:42 AM CDT 50 mcg heparin injection PRN, Starting on Sat02/14/18 at 1139, Until Sat02/14/18 at 1258, Anesthesia Intra-op $ Given 02/14/2018 11:39 AM CDT 8,000 Units isolyte-S pH 7.4 infusion CONTINUOUS PRN, Starting on Sat02/14/18 at 1107, Until Sat02/14/18 at 1258, Anesthesia Intra-op $ New Bag/Syringe 02/14/2018 11:56 AM CDT $ New Bag/Syringe 02/14/2018 11:07 AM CDT lactated ringers infusion Intravenous, CONTINUOUS PRN, Starting on Sat02/14/18 at 1034, Until Sat02/14/18 at 1258, Anesthesia Intra-op $ New Bag/Syringe 02/14/2018 10:34 AM CDT midazolam (VERSED) injection Intravenous, PRN, Starting on Sat02/14/18 at 1032, Until Sat02/14/18 at 1258, Anesthesia Intra-op $ Given 02/14/2018 10:32 AM CDT 2 mg Ondansetron HCl (ZOFRAN) injection Intravenous, PRN, Nausea/Vomiting, Starting on Sat02/14/18 at 1220, Until Sat02/14/18 at 1258, Anesthesia Intra-op $ Given 02/14/2018 12:20 PM CDT 4 mg phenylephrine 100 mcg/mL injection Intravenous, PRN, Starting on Sat02/14/18 at 1042, Until Sat02/14/18 at 1258, Anesthesia Intra-op $ Given 02/14/2018 11:55 AM CDT 50 mcg $ Given 02/14/2018 11:41 AM CDT 100 mcg $ Given 02/14/2018 10:42 AM CDT 100 mcg phenylephrine 20 mg in 250 mL NACL 0.9% infusion CONTINUOUS PRN, Starting on Sat02/14/18 at 1126, Until Sat02/14/18 at 1258, Anesthesia Intra-op Rate Change 02/14/2018 12:20 PM CDT 0.3 mcg/kg/min 0.02 mL/hr Rate Change 02/14/2018 12:13 PM CDT 0.4 mcg/kg/min 0.03 mL /hr Rate Change 02/14/2018 12:08 PM CDT 0.5 mcg/kg/min 0.04 mL /hr propofol (DIPRIVAN) injection Intravenous, PRN, Starting on Sat02/14/18 at 1050, Until Sat02/14/18 at 1258, Anesthesia Intra-op $ Given 02/14/2018 12:22 PM CDT 20 mg $ Given 02/14/2018 10:47 AM CDT 50 mg rocuronium (ZEMURON) injection Intravenous, PRN, Starting on Sat02/14/18 at 1050, Until Sat02/14/18 at 1258, Anesthesia Intra-op $ Given 02/14/2018 10:47 AM CDT 40 mg sugammadex (BRIDION) injection Intravenous, PRN, Starting on Sat02/14/18 at 1233, Until Sat02/14/18 at 1258, Anesthesia Intra-op $ Given 02/14/2018 12:33 PM CDT 161 mg documented in this encounter Care Teams Eligibility Services Representative Relationship Specialty Start Date End Date Dominic Fernando MD [address] [place] [address] PCP - General 02/06/18 04/06/19 documented as of this encounter
--- OUTSIDE RECORDS SUMMARY | 2024-09-04 17:08 | XMS_ITS | Encounter Summary ---
Author Organization [facility] Address [address] [facility] [place] [address] Care Team Providers Care Inseminator Name Role Phone Unavailable Primary Care Provider Unavailabl e Reason for Visit * Reason Onset Date Comments Referral 02/03/2018 Encounter Details Date Type Department Care Team (Late st Contact Info) Description 02/03/2018 Telephone [facility] General Internal Medicine [address] [address] Dominic Fernando MD [address] [place] [address] Referral Social History Tobacco Use Types Packs/Day Years Used Date Smoking Tobacco: Every Day Cigarettes Alcohol Use Standard Drinks/Week Comments No 0 (1 standard drink = 0.6 oz pur e alcohol) Sex and Gender Information Value Date Recorded Sex Assigned at Not on file Gender Identity Not on file Sexual Orientation Not on file documented as of this encounter Miscellaneous Notes * Telephone Encounter - Juanita Parry - 02/03/2018 3:41 PM CDT Sara from Dr Edward Grossman's office called CB# [phone] FAX# [phone] Called in error documented in this encounter Plan of Treatment Not on file documented as of this encounter Visit Diagnoses Not on filedocumented in this encounter
--- OUTSIDE RECORDS SUMMARY | 2024-09-04 17:08 | XMS_ITS | Encounter Summary ---
Author Organization [facility] Address [address] [place] [address] Care Team Providers Care Pull Over Name Role Phone Dominic Fernando MD Primary Care Provider [phone] Reason for Referral * Radiology Services (Routine) - Closed Specialty Diagnoses / Procedures Referred By Evan t Referred To Contact Vascular Lab Diagnoses Carotid artery embolus, left Procedures VAS CAROTID DUPLEX BILATERAL Too Lara MD [address] [address] [facility] [place] [address] Referral ID Status Reason Start Date Expiration Date Visits Re quested Visits Authorized [id number] Closed 03/04/2018 08/31/2018 1 1 Reason for Visit * Reason Comments Post-Op LEFT CAROTID EXP 6.1 .18 Encounter Details Date Type Department Care Team (Late st Contact Info) Description 02/27/2018 3:45 PM CDT Office Visit [facility] Vascular Surgery [address] [place] [address] Too Lara MD [address] [facility] [address] [place] [address] Carotid artery embolus, left (Primary Dx) Social History Tobacco Use Types Packs/Day Years [...] Sign Reading Time Taken Comments Blood Pressure 123/72 02/27/2018 3:21 PM CDT Pulse 96 02/27/2018 3:21 PM CDT Temperature 36.6 ??C (97.8 ??F) 02/27/2018 3:21 PM CD T Respiratory Rate - - Oxygen Saturation 94% 02/27/2018 3:21 PM CDT Inhaled Oxygen Concentration - - Weight 80.7 kg (178 lb) 02/27/2018 3:21 PM CDT Height 162.6 cm (5' 4 ) 02/27/2018 3:21 PM CDT Body Mass Index 30.55 02/27/2018 3:21 PM CDT documented in this encounter Functional [...] No 02/15/2018 documented as of this encounter Patient Instructions * Patient Instructions* Too Lara MD - 02/27/2018 4:00 PM CDT You had a diagnostic carotid angiogram. You need to stay on your xarelto. You may be off it temporarily if colonoscopy is needed. Call with any new neurologic symptoms (weakness, numbness, difficulties speaking or understanding others or vision changes like a cloak being drawn over your eyes). We will repeat carotid duplex in 1 month. Call with any questions. documented in this encounter Progress Notes * Too Lara MD - 02/27/2018 4:56 PM CDT History and Physical Patient's Primary Care Physician: Dominic Fernando MD Name: Gege Vidal Age: 57 y.o. Race: white Sex: female Chief Complaint/History of Present Illness: Patient is a 57 y.o. woman who presents for evaluation following carotid cut down with angiogram. She had obvious appearing stenosis on CT proximally in common carotid on the left and history of neurologic symptoms. We took her for planned retrograde stent. Angiogram identified no disease. We performed studies on the contralateral side as well and distal to our access. She had been on Xarelto. Her symptoms were likely due to embolic disease, and the disease identified in her proximal common carotid was likely embolic that resorbed prior to our procedure. She has no complaints today. She has no new neurologic symptoms. Her incision is well healed. She evidently has a possible colon issue that may need colonoscopy. I have reviewed the medical, surgical, family, and social histories and they are noncontributory tothe current illness. Past Medical History: Diagnosis Date ??? Anxiety ??? Cervical cancer ??? CVA (cerebral vascular accident) ??? Disorder of liver mass on liver ??? DVT (deep venous thrombosis) ??? GERD (gastroesophageal reflux disease) ??? High cholesterol ??? Hypothyroid ??? Pure hypercholesterolemia ??? Snoring (Not in a hospital admission) Allergies Allergen Reactions ??? Latex Urticaria and Swelling ??? Codiene [Codeine] Shortness of Breath ??? Morphine Other hypotension ??? Pcn [Penicillins] Shortness of Breath ??? Vancomycin Other Marzena's syndrome ??? Adhesive Sensitivity Other Blisters ??? Food Other Alcohol- makes her break out in blisters Current Outpatient Prescriptions on File Prior to Visit Medication Sig Dispense Refill ??? XARELTO 20 MG tablet Take 20 mg by mouth once daily ??? atorvastatin (LIPITOR) 20 MG tablet ??? aspirin EC (ECOTRIN) 81 MG tablet Take 81 mg by mouth once daily ??? levothyroxine (SYNTHROID) 137 MCG tablet Take 137 mcg by mouth daily before breakfast ??? cyanocobalamin (VITAMIN B-12) 1000 MCG tablet Take 1,000 mcg by mouth once daily No current facility-administered medications on file prior to visit. Social History Social History ??? Marital status: Spouse name: N/A ??? Number of children: N/A ??? Years of education: N/A Occupational History ??? Not on file. Social History Main Topics ??? Smoking status: Former Smoker Packs/day: 1.00 Years: 30.00 Types: Cigarettes ??? Smokeless tobacco: Never Used ??? Alcohol use No ??? Drug use: No ??? Sexual activity: Not on file Other Topics Concern ??? Not on file Social History Narrative Family History Problem Relation Age of Onset ??? Hypertension Mother ??? Diabetes - Type 2 Mother ??? Depression Mother ??? Diabetes - Type 2 Father ??? Coronary Artery Disease Father ??? Hepatitis Sister ??? DVT - Deep Vein Thrombosis Sister Review of Systems: Pertinent items are noted in HPI Exam Vitals: 02/27/18 1521 BP: 123/72 Pulse: 96 Temp: 97.8 ??F (36.6 ??C) SpO2: 94% Weight: 178 lb (80.7 kg) General appearance: alert, cooperative, no distress Lungs: breath sounds normal and symmetric; no rales or wheezes Neck: Incision c/d/i Heart: regular rhythm Abdomen: soft without mass, non-tender, with normal bowel sounds Extremities: no clubbing, cyanosis or edema Assessment and Plan Patient is 57 year old woman s/p carotid cut down and retrograde angiogram. She should continue herxarelto. She has possible colon issue per her and may need colonoscopy. She can be off xarelto for that temporarily as long as it is resumed shortly afterward. She needs carotid duplex in a month. I'll call her with any issues from that. documented in this encounter Plan of Treatment Not on file documented as of this encounter Results * VAS CAROTID DUPLEX BILATERAL (04/10/2018 9:18 AM CDT) Anatomical Region Laterality Modality Duplex Doppler 04/10/2018 9:06 AM CDT Narrative Procedure Note Deshaun Boland MD - 04/10/2018 Too Lara MD VASCULAR LAB ORDERAB LES documented in this encounter Visit Diagnoses Diagnosis Carotid artery embolus, left- Primary Carotid artery embolus, left documented in this encounter Care Teams Pull Over Relationship Specialty Start Date End Date Dominic Fernando MD [address] [place] [address] PCP - General 02/06/18 04/06/19 documented as of this encounter
--- OUTSIDE RECORDS SUMMARY | 2024-09-04 17:08 | XMS_ITS | Encounter Summary ---
Author Organization [facility] Address [address] [facility] [place] [address] Care Team Providers Care Seismograph Observer Name Role Phone Dominic Fernando MD Primary Care Provider [phone] Encounter Details Date Type Department Care Team (Late st Contact Info) Description 02/07/2018 11:20 AM CDT - 02/07/2018 11:59 PM T Hospital Encounter [facility] OP DRAW STATION [address] [place] [address] Dominic Fernando MD [address] [place] [address] Discharge Disposition: Home or Self Care Social [...] on filedocumented in this encounter Care Teams Seismograph Observer Relationship Specialty Start Date End Date Dominic Fernando MD [address] [place] [address] PCP - General 02/06/18 04/06/19 documented as of this encounter
--- OUTSIDE RECORDS SUMMARY | 2024-09-04 17:08 | XMS_ITS | Encounter Summary ---
Author Organization [facility] Address [address] [facility] [place] [address] Care Team Providers Care Personal Financial Advisor Name Role Phone Dominic Fernando MD Primary Care Provider [phone] Reason for Visit * Auth/Cert Specialty Diagnoses / Procedures Referred By Evan bo Referred To Contact Diagnoses Symptomatic carotid artery narrowing without infarction, left SYMPTOMATIC STENOSIS OF LEFT CAROTID ARTERY WITHOUT INFARCTION Procedures ARTERIOGRAM/ANGIOGRAM Referral ID Status Reason Start Date Expiration Date Visits Re quested Visits Authorized [id number] 1 1 Encounter Details Date Type Department Care Team (Late st Contact Info) Description 02/14/2018 9:20 AM CDT - 02/14/2018 12:05 PM CDT Surgery [facility] [address] [place] [address] Too Lara MD [address] [phone] LEFT CAROTID EXPLORATION, LEFT CAROTID ANGIOGRAM Surgery Details Date/Time Status Location OR Service Patient Class Case Class Case Type Trauma Case? 02/14/2018 9:20 AM Posted [facility] OR OR 08 Vascular Workforce Management Manager Admit Surgical Panel 1 Procedure LRB Anes Op Region Wound Class Comments LEFT CAROTID EXPLORATION, LEFT CAROTID ANGIOGRAM Left General Neck Clean [id number] [place] Medicare Part B Surgeon Surgeon Role Service Panel Too Lara MD Primary Vascular 1 Case Notes MEDICARE PART B, I65.22 Special Needs SUPINE documented in this encounter Social History Tobacco [...] Physician Discharge Summary Patient ID: Gege Vidal [id number] 57 y.o. 1960 Admit date: 02/14/2018 Discharge [...] the date of your surgery. Contact information: [address] [facility] [address] Signed: Roni Newell MD 02/15/2018 [...] Date 02/14/18 0700 - 02/15/18 0659 Shift [id number] [id number] 24 Hour Total I N T A [...] well, continue post op care José Miguel Rondon MD Surgery Resident, PGY1 Pager: 02/14/18 10:35 PM * Samantha Lozano RN - 02/14/2018 6:22 PM CDT Received pt mfrom pacu. Admission completedc documented in this encounter H&P Notes * Paulina Andujar, LAUNCH CHECK OUT-HOOKING MACHINE OPERATOR - 02/14/2018 8:32 AM CDT [facility] Vascular Surgery History and Physical Gege [...] No date: Cholecystectomy, Open No date: Hysterectomy 1989: Hysterectomy, Partial No date: KNEE ARTHROPLASTY No [...] Resident to obtain informed consent, site carlota Gallardo Nina Andujar, JESSIE-HOOKING MACHINE OPERATOR 02/14/2018 8:32 AM documented in this encounter [...] on angiogram. The angiogram was completed in GURMEET and JULIO CESAR views and no lesion [...] Name Type Priority Associated Diagnoses Date /Time CT KIRILL William ANGIO TEAM Imaging Routine Hypercholesteremia 02/14/2018 12:30 PM CDT Scheduled Orders Name Type Priority Associated Diagnoses Orde r Schedule CT KIRILL William ANGIO TEAM Imaging Routine Hypercholesteremia For radiant use only for 1 Occurrences starting 02/14/2018 until 02/14/2018 ACT - POCT (IP) [facility] Point of Care Testing Routine ONCE for 1 Occurrences starting 02/14/2018 until 02/14/2018 ACT - POCT (IP) [facility] Point of Care Testing Routine Hypercholesteremia Carotid artery embolus, left ONCE for 1 Occurrences starting 02/14/2018 until 02/14/2018 documented as of this encounter Procedures Procedure Name Priority Date/Time Associated Diagnosis Comments CARDIAC EKG ORDER 02/18/2018 9:0 4 PM CDT ACT - POCT (IP) [facility] Routine 02/14/2018 1 2:55 PM CDT ENDARTERECTOMY CAROTID (CEA) 02/14/2018 11:30 AM CDT Symptomatic carotid artery narrowing without infarction, left Case Notes MEDICARE PART B, I65.22 Special Needs SUPINE ACT - POCT (IP) [facility] Routine 02/14/2018 1 1:25 AM CDT Hypercholesteremi [...] ORD ERABLES * ACT - POCT (IP) [facility] (02/14/2018 12:55 PM CDT) Activated Clotting Time 255 sec [facility] POCT TESTING Blood BLOOD SPECIMEN / Unknown 02/14/2018 12:55 PM CDT Kevin Bower MD LAB - POINT OF CARE ORDERABLES Performing Organization Address [facility]/ZIP Co de Phone Number [facility] POCT TESTING [address] [place] [address] * ACT - POCT (IP) [facility] (02/14/2018 11:25 AM CDT) Activated Clotting Time 138 sec [facility] POCT TESTING Blood BLOOD SPECIMEN / Unknown 02/14/2018 11:25 AM CDT Kevin Bower MD LAB - POINT OF CARE ORDERABLES Performing Organization Address [facility]/ZIP Co de Phone Number [facility] POCT TESTING [address] [place] [address] * PREPARE (CROSSMATCH) RBC UNIT(S), 2 Units (02/14/2018 9:11 AM CDT) Unit Description LR Red Cells [facility] BLOOD BANK LAB Unit ABO O [facility] BLOOD BANK LAB Unit Rh POS [facility] BLOOD [facility]ANK LAB Product Code RL1 [facility] BLO OD BANK LAB Unit Donor # [id number] [facility] BLOOD BANK LAB Unit Status released [facility] BLOO D BANK LAB Product Number [id number] [facility] B LOOD BANK LAB Blood Type Barcode 5100 [facility] BLOOD BANK LAB Unit Description LR Red Cells [facility] BLOOD BANK LAB Unit ABO O [facility] BLOOD BANK LAB Unit Rh POS [facility] BLOOD [facility]ANK LAB Product Code RL3 [facility] BLO OD BANK LAB Unit Donor # [id number] [facility] BLOOD BANK LAB Unit Status released [facility] BLOO D BANK LAB Product Number [id number] [facility] B LOOD BANK LAB Blood Type Barcode 5100 [facility] BLOOD BANK LAB Blood Bank BLOOD SPECIMEN / Unknown 02/14/2018 9:11 AM CDT 02/14/2018 9:11 AM CDT Ester Barajas DO LAB - BLOOD BANK OR DERABLES Performing Organization Address [facility]/ZIP Co de Phone Number [facility] BLOOD BANK LAB [address] * TYPE + SCREEN PANEL (02/14/2018 9:05 AM CDT) Antibody Screen NEG 8 9:58 AM CDT [facility] BLOOD BANK LAB ABO Rh O POS 02/14/2018 9:58 AM CDT [facility] BLOOD BANK LAB Blood Bank BLOOD SPECIMEN / Unknown Venipuncture / Unknown 02/14/2018 9:05 AM CDT 02/14/2018 9:10 AM CDT Paulina Andujar LAUNCH CHECK OUT-HOOKING MACHINE OPERATOR LAB - BLOOD BA NK ORDERABLES Performing Organization Address [facility] Co de Phone Number [facility] BLOOD BANK LAB [address] [place] [address] documented in this encounter Visit Diagnoses Diagnosis Carotid artery embolus, left- Primary Hypercholesteremia Pure hypercholesterolemia Carotid artery embolus, left Symptomatic carotid artery narrowing without infarction, left documented in this encounter Administered Medications Inactive Administered Medications - up to 3 most recent administrations Medication Order MAR Action Action Date Dose Rate Site 0.9% NaCl infusion ADS Med 1 dose, Starting on Sat02/14/18 at 2351, Until Sat02/14/18 at 2356, Gloria Quinones: shelley override $ New Bag/Syringe 02/14/2018 11:56 PM CDT 0.9% NaCl infusion at 75 mL/hr, Intravenous, CONTINUOUS, Starting on Sat02/14/18 at 1445, Until Sat02/14/18 at 2244, Post-op $ New Bag/Syringe 02/14/2018 2:31 PM CDT 75 mL/hr aspirin (ASPIRIN) chew tablet 81 mg 81 mg, Oral, DAILY, 365 doses, First dose on Sat02/15/18 at 0915, Last dose on Sat02/14/19 at 0900 $ Given 02/15/2018 9:15 AM [...] Given 02/14/2018 1:31 PM CDT 50 mcg heparin (Dialysis/OR: Not for IV Use, No Dual Sign Off) 1,000 Units in 0.9% NaCl 1,000 mL irrigation 1,000 Units, PRN, Starting on Sat02/14/18 at 1229, Until Sat02/14/18 at 1305, Intra-op $ Given 02/14/2018 12:29 PM CDT 1,000 Units iodixanol (VISIPAQUE 320) injection PRN, Starting on Sat02/14/18 at 1230, Until Sat02/14/18 at 1305, Intra-op $ Given 02/14/2018 12:30 PM CDT 30 mL lactated ringers infusion at 20 mL/hr, Intravenous, [...] mg, Intravenous, ONCE PRN, Nausea/Vomiting, Starting on 6/1/18 at 1326, Until Sat02/14/18 at 1816, First [...] AT BEDTIME, 365 doses, First dose on 02/15/18 at 2100, Last dose on 02/14/19 at 2100 clindamycin (CLEOCIN) 900 mg in [...] 1425 ($ Given - Provider: Melyssa Rojo, RN) prochlorperazine (COMPAZINE) injection 10 mg (CANCELED) 10 [...] RN) documented in this encounter Care Teams Personal Financial Advisor Relationship Specialty Start Date End Date Dominic Fernando MD [address] [place] [phone] PCP - General 02/06/18 04/06/19 documented as of this encounter
--- OUTSIDE RECORDS SUMMARY | 2024-09-04 17:08 | XMS_ITS | Encounter Summary ---
Author Organization [facility] Address [address] [place] [address] Care Team Providers Care Mint Wafer Depositor Name Role Phone Dominic Fernando MD Primary Care Provider [phone] Reason for Referral * Radiology Services (Routine) - Closed Specialty Diagnoses / Procedures Referred By Evan bo Referred To Contact Vascular Lab Diagnoses Claudication of both lower extremities (HCC) Procedures VAS ARTERIAL ANKLE ARM INDEX Heather James, [facility] [address] [address] [facility] Vascular [address] [place] [address] Referral ID Status Reason Start Date Expiration Date Visits Re quested Visits Authorized [id number] Closed 10/23/2018 04/21/2019 1 1 Reason for Visit * Radiology Services (Routine) - Closed Specialty Diagnoses / Procedures Referred By Contburt bo Referred To Contact Vascular Lab Diagnoses Claudication of both lower extremities (HCC) Procedures VAS ARTERIAL ANKLE ARM INDEX Heather James, DIRECTOR OF CASEWORK-[facility] [address] [facility] [address] [place] [address] [facility] Vascular Us [address] [place] [address] Referral ID Status Reason Start Date Expiration Date Visits Re quested Visits Authorized [id number] Closed 10/23/2018 04/21/2019 1 1 Encounter Details Date Type Department Care Team (Late st Contact Info) Description 04/02/2019 8:07 AM CDT - 04/02/2019 11:59 PM CDT Hospital Encounter [facility] VASCULAR US [address] [place] [address] Heather James, [facility] [address] [address] Discharge Disposition: Home or Self Care Social [...] No 02/15/2018 documented as of this encounter Medications at Time of Discharge Medication Sig Dispensed Refills Start Date End Date aspirin EC (ECOTRIN) 81 MG tablet Take 81 mg by mouth once daily atorvastatin (LIPITOR) 20 MG tablet 02/01/2018 Cholecalciferol (VITAMIN D3) 70028 units capsule cyanocobalamin (VITAMIN B-12) 1000 MCG tablet Take 1,000 mcg by mouth once daily folic acid (FOLVITE) 1 MG tablet Take 1 mg by mouth 03/25/2018 levothyroxine (SYNTHROID) 137 MCG tablet Take 137 mcg by mouth daily before breakfast pantoprazole EC (PROTONIX) 20 MG tablet 10/09/2018 VENTOLIN HFA 108 (90 BASE) MCG/ACT inhaler 09/30/2018 XARELTO 20 MG tablet Take 20 mg by mouth once daily 01/31/2018 documented as of this encounter Plan of Treatment Not on file documented as of this encounter Procedures Procedure Name Priority Date/Time Associated Diagnosis Comments VAS ARTERIAL ANKLE ARM INDEX Routine 04/02/2019 9:31 AM CDT Claudication of both lower extremities (HCC) documented in this encounter Results * VAS ARTERIAL ANKLE ARM INDEX (04/02/2019 9:31 AM CDT) Anatomical Region Laterality Modality Intravascular Ul trasound 04/02/2019 8:37 AM CDT Narrative Procedure Note Deshaun Boland MD - 04/02/2019 Heather James DIRECTOR OF CASEWORK-MANAGER ELIGIBILITY VASCULAR LAB OR DERABLES documented in this encounter Visit Diagnoses Diagnosis Claudication of both lower extremities (HCC) documented in this encounter Care Teams Mint Wafer Depositor Relationship Specialty Start Date End Date Dominic Fernando MD [address] [place] [address] PCP - General 02/06/18 04/06/19 documented as of this encounter
--- OUTSIDE RECORDS SUMMARY | 2024-09-04 17:08 | XMS_ITS | Encounter Summary ---
Author Organization [facility] Address [address] [place] [address]. [place], [place] [id number] [place] [address] Care Team Providers Care Certified Court Interpreter Name Role Phone Eris Vu MD Primary Care Provider [phone] Encounter Details Date Type Department Care Team (Latest Contact Info) Description 06/08/2024 Travel Social History Tobacco Use Types Packs/Day Years Used Date Smoking Tobacco: Some Days Cigarettes Smokeless Tobacco: Never Alcohol Use Standard Drinks/Week Comments Never 0 (1 standard drink = 0.6 oz pur e alcohol) Comments No Sex and Gender Information Value Date Recorded Sex Assigned at Not on file Legal Sex Female 1:50 PM CDT Gender Identity Not on file Sexual Orientation Not on file documented as of this encounter Plan of Treatment Not on file documented as of this encounter Visit Diagnoses Not on filedocumented in this encounter Care Teams Certified Court Interpreter Relationship Specialty Start Date End Date Eris Vu MD [address] [place] [address] PCP - General FAMILY PRACTICE 06/05/24 documented as of this encounter
--- OUTSIDE RECORDS SUMMARY | 2024-09-04 17:08 | XMS_ITS | Encounter Summary ---
Author Organization [facility] Health Address [address] [place] [address] Care Team Providers Care Retort Engineer Name Role Phone Dominic Fernando MD Primary Care Provider [phone] Reason for Visit * Reason Comments Establish Care Encounter Details Date Type Department Care Team (Late st Contact Info) Description 04/02/2019 11:00 AM CDT Office Visit [facility] Vascular Surgery [address] [place] [address] Too Lara MD [address] [phone] Carotid stenosis, left (Primary Dx) Social History Tobacco Use [...] Mass Index 31.71 04/02/2019 10:49 AM CDT documented in this encounter Functional Status [...] this encounter Patient Instructions * Patient Instructions* Freddie Barrera MD - 04/02/2019 11:50 AM CDT You are doing very well from a vascular standpoint. Your carotid duplex showed less than 50% blockages on both sides so do not need surgery. Congratulations on quitting smoking! Continue taking your aspirin, statin and xarelto. Please call the vascular clinic with any further questions or should new issues arise. documented in this encounter Progress Notes * Freddie Barrera MD - 04/02/2019 11:23 AM CDT [facility] Vascular Surgery History and Physical Gege Vidal 58 year old female Date: 04/02/2019 Chief Complaint: Follow-up s/p L carotid artery exploration, carotid and arch angiogram (February 2018) HPI: History is obtained from the patient Patient is a 58 y.o. female with complaint of TIA and history of CVA. She is a patient of Dr. 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 The angiogram demonstrated patent B Common carotid arteries. She reports she developed blurry vision bilaterally, L facial droop, slurred speech and L sided weakness along with shortness of breath on 10/08/18. She was taken to [facility]. CT brain did not reveal any evidence of stroke. Carotid duplex scan demonstrated <50% carotid stenosis bilaterally. Patient has had a follow-up duplex today showing more or less similar velocities. She has had reported bilateral lower extremity pain as well. Patient has normal ABIs today. She has had a right knee replacement earlier this year. No rest pain or tissue loss. PMHx: Past Medical History: No date: Anxiety [...] Tubal Ligation (BTL) No date: Breast Biopsy 02/14/2018: Carotid Endarterectomy Left Comment: Left; LEFT CAROTID EXPLORATION, LEFT CAROTID ANGIOGRAM No date: Cervical Fusion No date: Cholecystectomy [...] Hepatitis in her sister;Hypertension in her mother. Allergies: -- Latex -- Urticaria and Swelling -- Codiene [Codeine] -- Shortness of Breath -- Morphine -- Other -- hypotension -- Pcn [Penicillins] -- Shortness of Breath -- Vancomycin -- Other -- Marzena's syndrome -- Adhesive Sensitivity -- Other -- Blisters -- Food -- Other -- Alcohol- makes her break out in blisters -- Vancomycin -- Other Medications: Current Outpatient Prescriptions: aspirin EC (ECOTRIN) 81 MG tablet atorvastatin (LIPITOR) 20 MG tablet Cholecalciferol (VITAMIN D3) 11884 units capsule cyanocobalamin (VITAMIN B-12) 1000 MCG tablet folic acid (FOLVITE) 1 MG tablet levothyroxine (SYNTHROID) 137 MCG tablet pantoprazole EC (PROTONIX) 20 MG tablet VENTOLIN HFA 108 (90 BASE) MCG/ACT inhaler XARELTO 20 MG tablet No current facility-administered medications for this visit. Review of Systems: Constitutional: Denies: fever, chills, diaphoresis, weakness, fatigue, weight loss, weight gain Eyes: Denies glasses/contacts, glaucoma or cataracts ENT/Mouth: Denies hearing loss, hearing aid, nose bleeds, tinnitus, or vertigo Cardiovascular: Denies chest pain/tightness, angina, palpitations, orthopnea, or syncope Resp: Denies wheezing, chronic cough, hemoptysis, dyspnea on exertion or dyspnea at rest GI: Denies hematemesis, constipation, diarrhea, melena, hematochezia, jaundice, fecal incontinence,reflux, or nausea/voming : Denies dysuria, hematuria, nocturia, urinary incontinence, or impotence Musculoskeletal: Patient denies arthritis, back pain, or difficulty walking. Skin: Patient denies rashes or skin lesions/cancer Neurological: Patient denies fainting/blackout, seizures, hemiplegia, hemiparesis, impaired sensorium, or headaches. Psychiatric: Patient denies memory loss, anxiety or depression. Endocrine: Patient denies heat intolerance, cold intolerance or weight gain. Hem/Lymph: Patient denies anemia, history of bleeding too much after surgery or dental procedures. Vascular: Patient denies claudication, rest pain, amaurosis fugax, history of aneurysm, DVT or PE. Vitals: BP 118/68 Pulse 85 Temp 98.5 ??F (36.9 ??C) (Oral) Resp 20 Ht 5' 3 (1.6 m) Wt 179 lb (81.2 kg) SpO2 95% BMI 31.71 kg/m2 Physical Exam: GEN: NAD, AAOx3 HEENT: Slight right sided facial droop unchanged according to her. NC/AT, no ocular discharge, non-erythematous posterior pharynx Neck: Supple, no thyromegaly Resp: CTAB CV: RRR, no m/r/g Abd: Soft, NT/ND, +BS in all quadrants : normal genitalia, no hernias, no masses, no discharge or signs of infection Ext: no cyanosis, clubbing, or edema Imaging: Reviewed Labs: Lab results smartLinks are not currently availableLab results smartLinks are not currently available Assesment and Plan: Gege Vidal is a 58 year old female with prior history of CVA and recent TIA. No hemodynamically significant carotid artery stenosis as demonstrated today; ABIs are normal as well. -Follow-up PRN. Freddie Barrera MD 04/02/2019 11:23 AM Associated attestation - Too Lara MD - 04/02/2019 2:35 PM CDT Patient seen and examined with Resident. Please see note for further details. I confirm history, exam, assessment and plan. In addition I note: Briefly, she is a 58 year old woman who had a stroke with acute thrombus in her common carotid artery. She was on anticoagulation and referred to us and when we took her for exploration the thrombus had resolved. She has had another episode of TIA although by report it doesn't sound like a TIA. She is on anticoagulation. Duplex showed no significant carotid disease. She can follow up with us on an as needed basis. Too Lara MD 04/02/2019 2:33 PM documented in this encounter Plan of Treatment Not on file documented as of this encounter Visit Diagnoses Diagnosis Carotid stenosis, left- Primary Occlusion and stenosis of carotid artery without mention of cerebral infarction documented in this encounter Care Teams Retort Engineer Relationship Specialty Start Date End Date Dominic Fernando MD [address] [facility] [place] [phone] PCP - General 02/06/18 04/06/19 documented as of this encounter
--- OUTSIDE RECORDS SUMMARY | 2024-09-04 17:08 | XMS_ITS | Encounter Summary ---
Author Organization [facility] Health Address [address] [place] [address] Care Team Providers Care Cripple Worker Name Role Phone Dominic Fernando MD Primary Care Provider [phone] Reason for Referral * Radiology Services (Routine) - Closed Specialty Diagnoses / Procedures Referred By Evan t Referred To Contact Vascular Lab Diagnoses Carotid artery embolus, left Procedures VAS CAROTID DUPLEX BILATERAL Too Lara MD [address] [address] [facility] Vascular [address] [place] [address] Referral ID Status Reason Start Date Expiration Date Visits Re quested Visits Authorized [id number] Closed 03/25/2019 04/24/2019 1 1 Reason for Visit * Reason Comments Results vascular lab results and hx left carotid exp. 02/14/18 Encounter Details Date Type Department Care Team (Late st Contact Info) Description 04/10/2018 12:00 PM CDT Office Visit [facility] Vascular Surgery [address] [place] [address] Too Lara MD [address] [facility] [address] [place] [address] Carotid artery embolus, left (Primary Dx) Social History Tobacco Use Types Packs/Day Years Used Date Smoking Tobacco: Former Cigarettes 1 30 Smokeless Tobacco: Never Tobacco [...] Sign Reading Time Taken Comments Blood Pressure 124/76 04/10/2018 11:44 AM CDT Pulse 76 04/10/2018 11:44 AM CDT Temperature 36.9 ??C (98.4 ??F) 04/10/2018 11:44 AM C DT Respiratory Rate - - Oxygen Saturation - - Inhaled Oxygen Concentration - - Weight 81.6 kg (180 lb) 04/10/2018 11:44 AM CDT Height 162.6 cm (5' 4 ) 04/10/2018 11:44 AM CDT Body Mass Index 30.9 04/10/2018 11:44 AM CDT documented in this encounter Functional [...] this encounter Patient Instructions * Patient Instructions* Manda Pereira RN - 04/10/2018 12:22 PM CDT Our office will contact you with your appointment date/time. If you have any questions or concerns contact our office at [phone]. documented in this encounter Progress Notes * Too Lara MD - 04/10/2018 12:30 PM CDT Patient seen and examined with Resident. Please see note for further details. I confirm history, exam, assessment and plan. In addition I note: Patient is s/p carotid cutdown with planned retrograde stent. There was no identified narrowing. Blockage was likely emoblism from another source which hadresolved by operation. We put her on Xarelto, which she continues and hematology is managing. She has had some bleeding in her urine which resolved. She is neurologically intact. She had a duplex today which shows no evidence of disease. We will plan on bringing her back in a year with repeat carotid duplex. I encouraged her to quit smoking. Too Lara MD 04/10/2018 12:30 PM * Shazia Jackson MD - 04/10/2018 11:56 AM CDT Vascular Surgery Clinic Note 04/10/2018 Subjective: Gege Vidal is a 57 y.o. female with history of left proximal common carotid stenosis who underwent Left cartoid angriogram with with retrograde left common carotid stent with patch angioplasty of left internal carotid artery. Seen in clinic 02/27/18 last. Got a follow up carotid duplex this am showing no disease. Not complaining of any symptoms. Taking xarelto and asa Objective: BP 124/76 (BP SITE: RIGHT ARM) Pulse 76 Temp 98.4 ??F (36.9 ??C) (Oral) Ht 5' 4 (1.626 m) Wt 180 lb (81.6 kg) BMI 30.9 kg/m2 General: Awake, alert, NAD HEENT: PEERL, EOMI. Well healed left neck incision. CV: RRR Pulm: Breathing Non-labored Ext: dopperable PT/DP pulses bilaterally Current Outpatient Prescriptions: ??? folic acid (FOLVITE) 1 MG tablet ??? XARELTO 20 MG tablet ??? atorvastatin (LIPITOR) 20 MG tablet ??? aspirin EC (ECOTRIN) 81 MG tablet ??? levothyroxine (SYNTHROID) 137 MCG tablet ??? cyanocobalamin (VITAMIN B-12) 1000 MCG tablet Assessment/Plan: Gege Vidal is a 57 y.o. female 6 weeks s/p Left cartoid angriogram with with retrograde left common carotid stent with patch angioplasty of left internal carotid artery (DOS: 02/14/18) doing well - Should be on xarelto total of 3 months; okay from vascular surgery perspective to temporarily hold xarelto for other procedures or surgeries if within that 12 month time frame - Follow up 1 year with repeat carotid ultrasound Shazia Jackson MD 04/10/2018 11:56 AM documented in this encounter Plan of Treatment Not on file documented as of this encounter Results * VAS CAROTID DUPLEX BILATERAL (04/02/2019 9:18 AM CDT) Anatomical Region Laterality Modality Intravascular Ul trasound 04/02/2019 8:18 AM CDT Narrative Procedure Note Deshaun Boland MD - 04/02/2019 Too Lara MD VASCULAR LAB ORDERAB LES documented in this encounter Visit Diagnoses Diagnosis Carotid artery embolus, left- Primary Carotid artery embolus, left documented in this encounter Care Teams Cripple Worker Relationship Specialty Start Date End Date Dominic Fernando MD [address] [place] [phone] PCP - General 02/06/18 04/06/19 documented as of this encounter
--- OUTSIDE RECORDS SUMMARY | 2024-09-04 17:08 | XMS_ITS | Encounter Summary ---
Author Organization [facility] Health Address [address] [place] [address] Care Team Providers Care Locker Operator Name Role Phone Dominic Fernando MD Primary Care Provider [phone] Reason for Referral * Radiology Services (Routine) - Closed Specialty Diagnoses / Procedures Referred By Evan bo Referred To Contact Vascular Lab Diagnoses Carotid artery embolus, left Procedures VAS CAROTID DUPLEX BILATERAL Too Lara MD [address] [address] [address] Referral ID Status Reason Start Date Expiration Date Visits Re quested Visits Authorized [id number] Closed 03/04/2018 08/31/2018 1 1 Reason for Visit * Radiology Services (Routine) - Closed Specialty Diagnoses / Procedures Referred By Evan t Referred To Contact Vascular Lab Diagnoses Carotid artery embolus, left Procedures VAS CAROTID DUPLEX BILATERAL Too Lara MD [address] [facility] [address] [place] [address] [facility] Vascular Us [address] [place] [address] Referral ID Status Reason Start Date Expiration Date Visits Re quested Visits Authorized [id number] Closed 03/04/2018 08/31/2018 1 1 Encounter Details Date Type Department Care Team (Latest Contact Info) Description 04/10/2018 9:01 AM CDT - 04/10/2018 11:59 PM CDT Hospital Encounter [facility] VASCULAR US [address] [place] [address] Too Lara MD [address] [facility] [address] [place] [address] Discharge Disposition: Home or Self Care Social [...] 20 mg by mouth once daily 01/31/2018 varenicline (CHANTIX STARTING MONTH ) 0.5 MG X 11 & 1 MG X 42 tabletsIndications:Smok ing Cessation Therapy Take by mouth as directed Take 0.5 mg daily days 1-3, twice daily days 4-7, then 1 mg twice daily Reasons: Treatment to Stop Smoking 1 packet 04/10/2018 10/23/2018 documented as of this encounter Plan of Treatment Not on file documented as of this encounter Procedures Procedure Name Priority Date/Time Associated Diagnosis Comments VAS CAROTID DUPLEX BILATERAL Routine 04/10/2018 9:18 AM CDT Carotid artery embolus, left documented in this encounter Results * VAS CAROTID DUPLEX BILATERAL (04/10/2018 9:18 AM CDT) Anatomical Region Laterality Modality Duplex Doppler 04/10/2018 9:06 AM CDT Narrative Procedure Note Deshaun Boland MD - 04/10/2018 Too Lara MD VASCULAR LAB ORDERAB LES documented in this encounter Visit Diagnoses Diagnosis Carotid artery embolus, left documented in this encounter Care Teams Locker Operator Relationship Specialty Start Date End Date Dominic Fernando MD [address] [place] [phone] PCP - General 02/06/18 04/06/19 documented as of this encounter
--- OUTSIDE RECORDS SUMMARY | 2024-09-04 17:08 | XMS_ITS | Encounter Summary ---
Author Organization [facility] Health Address [address] [place] [address] Care Team Providers Care Recreation Engineer Name Role Phone Dominic Fernando MD Primary Care Provider [phone] Reason for Referral * Radiology Services (Routine) - Closed Specialty Diagnoses / Procedures Referred By Evan bo Referred To Contact Vascular Lab Diagnoses Carotid artery embolus, left Procedures VAS CAROTID DUPLEX BILATERAL Too Lara MD [address] [address] [address] Referral ID Status Reason Start Date Expiration Date Visits Re quested Visits Authorized [id number] Closed 03/25/2019 04/24/2019 1 1 Reason for Visit * Radiology Services (Routine) - Closed Specialty Diagnoses / Procedures Referred By Contac t Referred To Contact Vascular Lab Diagnoses Carotid artery embolus, left Procedures VAS CAROTID DUPLEX BILATERAL Too Lara MD [address] [place] [address] [facility] Vascular Us [address] [place] [address] Referral ID Status Reason Start Date Expiration Date Visits Re quested Visits Authorized [id number] Closed 03/25/2019 04/24/2019 1 1 Encounter Details Date Type Department Care Team (Latest Contact Info) Description 04/02/2019 8:07 AM CDT - 04/02/2019 11:59 PM CDT Hospital Encounter [facility] VASCULAR US [address] [place] [address] Too [facility] MD [address] [facility] [address] [place] [address] Radiology Diagnostic Discharge Disposition: Home or Self Care Social [...] 20 MG tablet 02/01/2018 Cholecalciferol (VITAMIN D3) 14533 units capsule cyanocobalamin (VITAMIN B-12) 1000 MCG [...] Diagnosis Comments VAS CAROTID DUPLEX BILATERAL Routine 04/02/2019 9:18 AM CDT Carotid artery embolus, left [...] left documented in this encounter Care Teams Recreation Engineer Relationship Specialty Start Date End Date Dominic Fernando MD [address] [place] [phone] PCP - General 02/06/18 04/06/19 documented as of this encounter
--- OUTSIDE RECORDS SUMMARY | 2024-09-04 17:08 | XMS_ITS | Encounter Summary ---
Author Organization [facility] Address [address] [facility] [place] [address] Care Team Providers Care Wool Batting Worker Name Role Phone Dominic Fernando MD Primary Care Provider [phone] Reason for Visit * Reason Comments Establish Care possible stenting L/ com carotid artery Encounter Details Date Type Department Care Team (Late st Contact Info) Description 02/06/2018 1:15 PM CDT Office Visit [facility] Vascular Surgery [address] [facility] [place] [address] Too Lara MD [address] [facility] [address] [place] [address] Symptomatic stenosis of left carotid artery without infarction (Primary Dx) Social History Tobacco Use Types Packs/Day Years Used Date Smoking Tobacco: Every Day Cigarettes Smokeless Tobacco: Never Alcohol Use Standard Drinks/Week Comments No 0 (1 standard drink = 0.6 oz pur e alcohol) Sex and Gender Information Value Date Recorded Sex Assigned at Not on file Gender Identity Not on file Sexual Orientation Not on file documented as of this encounter Last Filed Vital Signs Vital Sign Reading Time Taken Comments Blood Pressure 120/73 02/06/2018 1:31 PM CDT Pulse 80 02/06/2018 1:31 PM CDT Temperature 37.1 ??C (98.8 ??F) 02/06/2018 1:31 PM CD T Respiratory Rate - - Oxygen Saturation 99% 02/06/2018 1:31 PM CDT Inhaled Oxygen Concentration - - Weight 82.6 kg (182 lb) 02/06/2018 1:31 PM CDT Height 162.6 cm (5' 4 ) 02/06/2018 1:31 PM CDT Body Mass Index 31.24 02/06/2018 1:31 PM CDT documented in this encounter Patient Instructions * Patient Instructions* Heather James APRN-CNS - 02/06/2018 2:03 PM CDT Office will call with date and time of surgery Pre-Admission testing will call with appointment to meet anesthesia, obtain lab work, Chest x-ray and EKG if needed Start clopidogrel(Plavix) and stop Xarelto 7 days prior to surgery date. Do not stop Aspirin or Plavix for surgery documented in this encounter Progress Notes * Too Lara MD - 02/06/2018 2:02 PM CDT History and Physical Patient's Primary Care Physician: Dominic Fernando MD Name: Gege Vidal Age: 57 y.o. Race: white Sex: female Chief Complaint/History of Present Illness: Patient is a 57 y.o. female who presents for evaluationof left common carotid stenosis. She had a recent stroke with difficulty speaking and imaging revealed proximal common carotid lesion around 75%. She is on xarelto and aspirin for history of DVT. Sheis back to her baseline neurologically. She does not report chest pain. She gets some shortness of breath when mounting stairs. She does not have a heart history. I have reviewed the medical, surgical, family, and social histories and they are noncontributory tothe current illness. Past Medical History: Diagnosis Date ??? Cervical cancer ??? DVT (deep venous thrombosis) ??? High cholesterol ??? Hypothyroid (Not in a hospital admission) Allergies Allergen Reactions ??? Latex ??? Codiene [Codeine] Shortness of Breath ??? Morphine hypotension ??? Pcn [Penicillins] ??? Vancomycin Marzena's syndrome ??? Adhesive Sensitivity ??? Food Alcohol- makes her break out in blisters Current Outpatient Prescriptions on File Prior to Visit Medication Sig Dispense Refill ??? ibuprofen (MOTRIN) 600 MG tablet Take 1 Tab by mouth every 6 hours as needed for Pain. 20 Tab 0 ??? oxyCODONE-acetaminophen (PERCOCET) 5-325 MG tablet Take 1 Tab by mouth every 4 hours as needed for Pain. 15 Tab 0 No current facility-administered medications on file prior to visit. Social History Social History ??? Marital status: Spouse name: N/A ??? Number of children: N/A ??? Years of education: N/A Occupational History ??? Not on file. Social History Main Topics ??? Smoking status: Current Every Day Smoker Packs/day: 1.00 ??? Smokeless tobacco: Never Used ??? Alcohol [...] Deep Vein Thrombosis Sister Review of Systems: Constitutional: Positive for weight change, fatigue Eyes: Positive for glasses or contacts Ears, nose, mouth, and throat: Negative Respiratory: Positive for wheezing Cardiovascular: Negative Gastrointestinal: Negative Genitourinary:Negative Skin: Negative Musculoskeletal:Positive for back pain, arthritis Neurological: Positive for headaches, numbness or tingling Behavioral/Psych: Positive for anxiety, memory loss Exam Vitals: 02/06/18 1331 BP: 120/73 Pulse: 80 Temp: 98.8 ??F (37.1 ??C) SpO2: 99% Weight: 182 lb (82.6 kg) General appearance: alert, cooperative, no distress Neck: healed incision lower right neck, supple Lungs: breath sounds normal and symmetric; no rales or wheezes Heart: regular rhythm Abdomen: soft without mass, non-tender, with normal bowel sounds Extremities: no clubbing, cyanosis or edema Data CTA: Proximal left ICA stenosis about 75%. ICA without significant disease. Assessment and Plan Patient is a 57 year old woman with history of recent stroke on left side with corresponding left proximal common carotid artery stenosis (around 75%). We had a discussion about carotid stenting of this lesion to prevent recurrent stroke. I think the safest way to do this is a retrograde stent fromthe distal common carotid artery/internal carotid artery. We discussed there is a small risk of stroke from this procedure, but it will hopefully prevent a higher likelihood of stroke if we did nothing. We will switch her to plavix and aspirin 7 days prior to her procedure (and stop her xarelto). Iencouraged smoking cessation. We will have her see PAT and get this procedure scheduled in the nextweek or two. documented in this encounter Plan of Treatment Not on file documented as of this encounter Visit Diagnoses Diagnosis Symptomatic stenosis of left carotid artery without infarction- Primary documented in this encounter Care Teams Wool Batting Worker Relationship Specialty Start Date End Date Dominic Fernando MD [address] [place] [address] PCP - General 02/06/18 04/06/19 documented as of this encounter
--- OUTSIDE RECORDS SUMMARY | 2024-09-04 17:08 | XMS_ITS | Encounter Summary ---
Author Organization [facility] Health Address [address] [place] [address] Care Team Providers Care Production Control Expert Name Role Phone Dominic Fernando MD Primary Care Provider [phone] Reason for Referral * Radiology Services (Routine) - Closed Specialty Diagnoses / Procedures Referred By Evan t Referred To Contact Vascular Lab Diagnoses Claudication of both lower extremities (HCC) Procedures VAS ARTERIAL ANKLE ARM INDEX Heather James, [facility] [address] [facility] [address] [place] [address] [facility] [address] [place] [address] Referral ID Status Reason Start Date Expiration Date Visits Re quested Visits Authorized [id number] Closed 10/23/2018 04/21/2019 1 1 [facility] LAKES LEVERMAN Reason for Visit * Reason Comments Establish Care Encounter Details Date Type Department Care Team (Late st Contact Info) Description 10/23/2018 2:45 PM [facility] Office Visit [facility] [address] [place] [address] Jacob Heather M, BRICK EXTRUDER OPERATOR[facility] [address] [facility] [address] [place] [address] Claudication of both lower extremities (HCC) (Primary Dx); History of TIA (transient ischemic attack) Social History Tobacco Use Types Packs/Day Years [...] Sign Reading Time Taken Comments Blood Pressure 137/75 10/23/2018 2:37 PM [facility]MAN Pulse 92 10/23/2018 2:37 PM [facility] Temperature - - Respiratory Rate - - Oxygen Saturation 96% 10/23/2018 2:37 PM [facility] [employer] [facility] Inhaled Oxygen Concentration - - Weight 87.5 kg (193 lb) 10/23/2018 2:37 PM [facility] Height 160 cm (5' 3 ) 10/23/2018 2:37 PM [facility] Body Mass Index 34.19 10/23/2018 2:37 PM [facility] [employer] [facility] documented in this encounter Functional Status Functional [...] encounter Patient Instructions * Patient Instructions* Manda Pereira, MIKHAIL - 10/23/2018 2:59 PM [facility] [employer] [facility] Today we discussed: Smoking cessation was strongly encouraged. Continued smoking's relationship to this disease and possible progression was reviewed. FRANCESCA with exercise to be scheduled with office visit on 04/02/19 Carotid Artery Stenosis If you smoke, you are strongly encouraged to stop. If you are taking a daily aspirin, you are advised to remain on this. If you are on a statin (cholesterol) medication, it is important for you to continue this medication. Even if your cholesterol numbers are normal, carotid artery stenosis is caused by atherosclerosis (hardening of the arteries) and you benefit from statin treatment. *If you are not on a statin (cholesterol), it is recommended that you should be considered for thismedication. Discus this with your Primary Care Physician at your next visit. Maintain adequate blood pressure and blood glucose (blood sugar) control. Signs and symptoms of a stroke or TIA (transient ischemic attack, mini-stroke ) are weakness on one side of the body or the other, difficulty speaking or slurred speech, or sudden blindness in one eye, or a severe headache described as your worst headache ever . If you have any of these symptom seek urgent medical attention. [facility]AKES [facility] documented in this encounter Progress Notes * Heather James, BRICK EXTRUDER OPERATOR-RIVET TESTER - 10/23/2018 3:43 PM CST 10/23/2018 Name: Gege Vidal Date of : 1960 Referred By: Too Lara MD [facility] [place] [address] Subjective: Chief Complaint: Chief Complaint Patient presents with ??? Establish Care HPI: The patient is a 58 y.o. female with complaint of TIA and history of CVA. She is a patient of Dr. 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 The angiogram demonstrated patent B Common carotid arteries. She reports she developedblurry vision bilaterally, L facial droop, slurred speech and L sided weakness along with shortnessof breath on 10/08/18. She was [facility] to [facility]. CT brain did not reveal any evidence of stroke. Carotid duplex scan demonstrated <50% carotid stenosis bilaterally. All symptoms have resolved and she is at baseline neurologically. She has hx of DVT, on Xarelto managed by crimper assembler, and continues to smoke. Reports she is scheduled to have 48 Hour Holter Monitor and Nuclear Med Cardiac Stress Test next week. She reports R knee surgery in the future. Reports approximately 2 block claudication. Review of Systems: Constitutional: Negative ENT: Edentulous Cardiovascular: Negative Respiratory: Negative Vascular: Leg pain with walking Neurological: Negative Objective: Medical History: Past Medical History: Diagnosis Date ??? Anxiety ??? Cervical cancer ??? CVA (cerebral vascular accident) ??? Disorder of liver mass on liver ??? DVT (deep venous thrombosis) ??? GERD (gastroesophageal reflux disease) ??? High cholesterol ??? Hypothyroid ??? Pure hypercholesterolemia ??? Snoring Surgical History: Past Surgical History: Procedure Laterality Date ??? Bilateral Tubal Ligation (BTL) ??? Breast Biopsy ??? Carotid Endarterectomy Left 02/14/2018 Left; LEFT CAROTID EXPLORATION, LEFT CAROTID ANGIOGRAM ??? Cervical Fusion ??? Cholecystectomy ??? Cholecystectomy, Open ??? Hysterectomy ??? Hysterectomy, Partial 1989 ??? KNEE ARTHROPLASTY ??? Knee Arthroscopy Right x 3 ??? OTHER SURGERY right side abdomen fatty tumor removed ??? Rotator Cuff Repair Right ??? Shoulder Arthroscopy rotator cuff surgery x 3 ??? Tonsillectomy and Adenoidectomy ??? TUBAL LIGATION, LAPAROSCOPIC Family History: Family History Problem Relation Age of Onset ??? Hypertension Mother ??? Diabetes - Type 2 Mother ??? Depression Mother ??? Diabetes - Type 2 Father ??? Coronary Artery Disease Father ??? Hepatitis Sister ??? DVT - Deep Vein Thrombosis Sister Social History: Social History Substance Use Topics ??? Smoking status: Current Every Day Smoker Packs/day: 1.00 Years: 30.00 Types: Cigarettes ??? Smokeless tobacco: Never Used ??? Alcohol use No Marital Status: Occupation: unemployed Current Medications: Current Outpatient Prescriptions: ??? aspirin EC (ECOTRIN) 81 MG tablet, Take 81 mg by mouth once daily, Disp: , Rfl: ??? atorvastatin (LIPITOR) 20 MG tablet, , Disp: , Rfl: ??? cyanocobalamin (VITAMIN B-12) 1000 MCG tablet, Take 1,000 mcg by mouth once daily, Disp: , Rfl: ??? folic acid (FOLVITE) 1 MG tablet, Take 1 mg by mouth, Disp: , Rfl: ??? levothyroxine (SYNTHROID) 137 MCG tablet, Take 137 mcg by mouth daily before breakfast, Disp: ,Rfl: ??? pantoprazole EC (PROTONIX) 20 MG tablet, , Disp: , Rfl: ??? VENTOLIN HFA 108 (90 BASE) MCG/ACT inhaler, , Disp: , Rfl: ??? XARELTO 20 MG tablet, Take 20 mg by mouth once daily, Disp: , Rfl: Vitals: Vitals: 10/23/18 1437 BP: 137/75 Pulse: 92 Physical Exam: General appearance: alert, cooperative, no distress Neck: L neck scar well healed, L cervical bruit present Lungs: breath sounds normal and symmetric; no rales or wheezes Heart: regular rhythm with occasional ectopic beat Extremities: 1+ non-pitting BLE edema, R>L, R knee edema Circulation: B PT/DP pulses present. Feet warm and well perfused. Hair present on toes. No ulcerations. A/P: Ms. Vidal is a 58 y.o. female with prior history of CVA and recent TIA. No hemodynamically significant carotid artery stenosis as demonstrated by OSH carotid duplex ultrasound. She will f/u with us as previously scheduled in March 2019 with repeat imaging. We will also obtain FRANCESCA's with exercise as she reports B calf claudication. Smoking cessation encouraged. Remain on all medications and keep appointments for stress test and Holter monitor. RS [facility] LAKES [facility]EVERMAN documented in this encounter Plan of Treatment Not on file documented as of this encounter Results * VAS ARTERIAL ANKLE ARM INDEX (04/02/2019 9:31 AM CDT) Anatomical Region Laterality Modality Intravascular Ul trasound 04/02/2019 8:37 AM CDT Narrative Procedure Note Deshaun Boland MD - 04/02/2019 [facility] documented in this encounter Visit Diagnoses Diagnosis Claudication of both lower extremities (HCC)- Primary History of TIA (transient ischemic attack) Transient ischemic attack (TIA), and cerebral infarction without residual deficits Claudication of both lower extremities (HCC) documented in this encounter Care Teams Production Control Expert Relationship Specialty Start Date End Date Dominic Fernando MD [address] [place] [address] PCP - General 02/06/18 04/06/19 documented as of this encounter
--- OUTSIDE RECORDS SUMMARY | 2024-09-04 17:08 | XMS_ITS | Encounter Summary ---
Author Organization [facility] Address [address] [place] [address] Care Team Providers Care [employer] Humanities Teacher Name Role Phone Dominic Fernando MD Primary Care Provider [phone] Encounter Details Date Type Department Care Team (Latest Contact Info) Description 02/07/2018 10:00 AM CDT Clinical Support [facility] [address] [place] [id number] Too Lara MD [address] [address] Hypercholesteremia Anesthesia Record Procedure Summary Procedure Name Responsible Anesthesiologist Anesthesia Start Time Anesthesia Stop Time LEFT CAROTID EXPLORATION, LEFT CAROTID ANGIOGRAM (Left: Neck) Maura Dos Santos DO 02/14/18 1034 02/14/18 1253 [...] Room 1246 ANPTO2 1253 An Stop Meds * Agents No agents on file. * Blood No blood administrations on file. [...] Dominic Perea DO 02/14/18 1350 by Rufina Macdonald, MIKHAIL ETT Date: 02/14/18; Time : 1051; Placed By: Maura Dos Santos DO; Vent: easy mask; Induction: [...] Well, General Anesthesia 02/14/18 1100 by Dominic Perea, 02/15/18 1030 by Niya Rodas RN Urethral [...] Sign Reading Time Taken Comments Blood Pressure 128/61 02/07/2018 9:54 AM CDT Pulse 83 02/07/2018 9:54 AM CDT Temperature 36.5 ??C (97.7 ??F) 02/07/2018 9:54 AM CD T Respiratory Rate 16 02/07/2018 9:54 AM CDT Oxygen Saturation 97% 02/07/2018 9:54 AM CDT Inhaled Oxygen Concentration - - Weight 82.6 kg (182 lb) 02/07/2018 9:54 AM CDT Height 162.6 cm (5' 4 ) 02/07/2018 9:54 AM CDT Body Mass Index 31.24 02/07/2018 9:54 AM CDT documented in this encounter Plan of Treatment Not on file documented as of this encounter Procedures Procedure Name Priority Date/Time Associated Diagnosis Comments CARDIAC EKG ORDER 08/04/2018 12: 01 PM TRIM TECHNICIAN PTT [facility] AM Draw 02/07/2018 12:50 PM CDT Hypercholesteremia PT-INR [facility] AM Draw 02/07/2018 12:50 PM CDT Hypercholesteremia CBC W AUTO DIFFERENTIAL AM Draw 02/07/2018 12:50 PM CDT Hypercholesteremia COMPREHENSIVE METABOLIC PANEL AM Draw 02/07/2018 12:50 PM CDT Hypercholesteremia EKG 12-LEAD Routine 02/07/2018 10:08 AM CDT Hypercholesteremia documented in this encounter Results * CARDIAC EKG ORDER (08/04/2018 12:01 PM TRIM TECHNICIAN) Narrative 08/04/2018 12:01 PM TRIM TECHNICIAN Ordered by an unspecified provider. Scanned Document CARDIAC SERVICES ORD ERABLES * (ABNORMAL) PTT [facility] (02/07/2018 12:50 PM CDT) APTT 42.0(H) 23.0 - 38.4 Seconds 02/07/2018 1:16 PM CDT [facility] LABORATORY [facility] Comment: Suggested therapeutic range for full dose I.V. heparin therapy for venous thromboembolism is 66.0-91.0 seconds. Blood BLOOD SPECIMEN / Unknown Lab Venipuncture / Unknown 02/07/2018 12:50 PM CDT 02/07/2018 12:55 PM CDT Ester Barajas DO LAB - COAGULATION O RDERABLES [address] [phone] * (ABNORMAL) PT-INR [facility] (02/07/2018 12:50 PM CDT) PT 19.0(H) 12.1 - 14.8 Seconds 02/07/2018 1:15 PM CDT [facility]ATORY HOSPITAL INR 1.6 See Comment 02/07/2018 1:15 PM CDT [facility] Comment: Suggested therapeutic range for low-intensity coumadin therapy for venous thromboembolism prophylaxis is an INR of 2.0-3.0. ??For high risk patients (Mitral Valve Prosthesis, Atrial Fibrillation, history of TIA/stroke), suggested prophylactic therapeutic range is an INR of 2.5-3.5. Blood BLOOD SPECIMEN / Unknown Lab Venipuncture / Unknown 02/07/2018 12:50 PM CDT 02/07/2018 12:55 PM CDT Ester K Karl DO LAB - COAGULATION O RDERABLES [facility] [address] [place] [address] * (ABNORMAL) COMPREHENSIVE METABOLIC PANEL (02/07/2018 12:50 PM CDT) BUN 8 7 - 26 mg/dL 02/07/2018 1:22 PM [facility] Creatinine 1.0 0.6 - 1.2 mg/dL 02/07/2018 1:22 PM [facility] Sodium 136 136 - 145 mmol/L 02/07/2018 1:22 PM [facility] Potassium 3.6 3.5 - 4.5 mmol/L 02/07/2018 1:22 PM [facility] Chloride 101 98 - 107 mmol/L 02/07/2018 1:22 PM [facility] CO2 25 22 - 29 mmol/L 02/07/2018 1:22 PM [facility] Glucose 93 70 - 115 mg/dL 02/07/2018 1:22 PM [facility] Calcium 9.9 8.4 - 10.2 mg/dL 02/07/2018 1:22 PM [facility] Protein Total 7.6 6.0 - 8.3 g/dL 02/07/2018 1:22 PM [facility] Albumin 3.5 3.4 - 5.0 g/dL 02/07/2018 1:22 PM [facility] Bilirubin Total 0.7 0.2 - 1.2 mg/dL 02/07/2018 1:22 PM [facility] Alkaline Phosphatase 109 40 - 150 Units/L 02/07/2018 1:22 PM [facility] ALT 22 0 - 55 Units/L 02/07/2018 1:22 PM [facility] AST 23 5 - 34 Units/L 02/07/2018 1:22 PM [facility] Anion Gap 14 8 - 18 02/07/2018 1:22 PM [facility] BUN/Creatinine Ratio 8 7 - 23 02/07/2018 1:22 PM [facility] Osmolality Calculated 280 270 - 300 mOsm/kg 02/07/2018 1:22 PM [facility] Albumin/Globulin Ratio 0.9(L) 1.1 - 2.3 02/07/2018 1:22 PM [facility] eGFR 57(L) >60 mL/min/1.7 3 m2 02/07/2018 1:22 PM [facility] Blood BLOOD SPECIMEN / Unknown Lab Venipuncture / Unknown 02/07/2018 12:50 PM CDT 02/07/2018 12:55 PM CDT Ester Barajas DO LAB - CHEMISTRY ORD ERABLES Performing Organization Address City/State/[facility] Co de Phone Number [address] [phone] * CBC W AUTO DIFFERENTIAL (02/07/2018 12:50 PM CDT) WBC 8.0 3.5 - 10.5 10? 3 /uL 02/07/2018 1:01 PM [facility] RBC 4.82 3.90 - 5.00 10? 6 /uL 02/07/2018 1:01 PM [facility] Hemoglobin 13.6 12.0 - 15.5 g/dL 02/07/2018 1:01 PM [facility] Hematocrit 40.6 35.0 - 45.0 % 02/07/2018 1:01 PM [facility] MCV 84.2 81.0 - 97.0 fL 02/07/2018 1:01 PM [facility] MCH 28.2 28.0 - 34.0 pg 02/07/2018 1:01 PM [facility] MCHC 33.5 32.0 - 36.0 g/dL 02/07/2018 1:01 PM [facility] Platelet Count 292 150 - 400 10? 3 /uL 02/07/2018 1:01 PM [facility] RDW-SD 39.7 36.0 - 50.0 fL 02/07/2018 1:01 PM [facility] RDW-CV 12.9 11.2 - 14.8 % 02/07/2018 1:01 PM [facility] MPV 10.3 9.3 - 12.8 fL 02/07/2018 1:01 PM [facility] Neutrophils % 64.9 35.0 - 70.0 % 02/07/2018 1:01 PM [facility] Lymphocytes % 25.9 19.7 - 55.1 % 02/07/2018 1:01 PM [facility] Monocytes % 6.3 3.0 - 15.0 % 02/07/2018 1:01 PM [facility] Eosinophils % 2.6 0.0 - 6.0 % 02/07/2018 1:01 PM [facility] Basophil % 0.3 0.0 - 1.5 % 02/07/2018 1:01 PM [facility] Neutrophils Absolute 5.2 1.6 - 7.0 10? 3 /uL 02/07/2018 1:01 PM [facility] Lymphocyte Absolute 2.1 0.8 - 2.9 10? 3 /uL 02/07/2018 1:01 PM [facility] Monocytes Absolute 0.50 0.14 - 0.66 10? 3 /uL 02/07/2018 1:01 PM [facility] Eosinophils Absolute 0.21 0.00 - 0.22 10? 3 /uL 02/07/2018 1:01 PM [facility] Basophils Absolute 0.02 0.00 - 0.06 10? 3 /uL 02/07/2018 1:01 PM [facility] Immature Granulocytes % 0.3 0.0 - 1.0 % 02/07/2018 1:01 PM [facility] Blood BLOOD SPECIMEN / Unknown Lab Venipuncture / Unknown 02/07/2018 12:50 PM CDT 02/07/2018 12:55 PM CDT Ester Barajas DO LAB - HEMATOLOGY OR DERABLES [facility] LABORATORY [facility] [address] [phone] * EKG 12-LEAD (02/07/2018 10:08 AM CDT) Ventricular Rate 57 BPM [facility] Atrial Rate 57 BPM [facility] P-R Interval 206 ms [facility] QRS Duration ms 84 ms [facility] Q-T Interval ms 428 ms H MUSE QTC Calculation (Bezet) 416 ms [facility] Calculated P [place] 70 degrees [facility] Calculated R [place] 23 degrees [facility] Calculated T [place] 60 degrees [facility] Interpretation EKG Sinus bradycardia~Po or R wave progression in precordial leads~Otherwis e normal ECG~No previous ECGs available~Conf irmed by Ancelmo KISER, JEVON ([id number]), book or script editor AMOS MCCLENDON ([id number]) on 02/13/2018 1:47:34 PM [facility] MUSE 02/07/2018 10:0 8 AM CDT 02/13/2018 1:47 PM CDT Ester Barajas DO ECG ORDERABLES Performing Organization Address City/[facility] Co de Phone Number [facility] documented in this encounter Visit Diagnoses Diagnosis Hypercholesteremia- Primary Pure hypercholesterolemia documented in this encounter Care Teams [employer] Humanities Teacher Relationship Specialty Start Date End Date Dominic Fernando MD [address] [place] [address] PCP - General 02/06/18 04/06/19 documented as of this encounter
--- OUTSIDE RECORDS SUMMARY | 2024-09-04 17:08 | XMS_ITS | Clinical Summary ---
Author Organization [facility] Address [address] [place] [address]. [place] [address] [place] [address] Care Team Providers Care Retail Administrative Assistant Name Role Phone Eris uV MD Primary Care Provider [phone] Allergies Active Allergy Reactions Criticality Noted Date Comments Alcohol Other (see comment) 05/25/2024 Blisters Codeine Anaphylaxis High 05/25/2024 Hydromorphone Vomiting 05/25/2024 Hydrocodone Vomiting 05/25/2024 Latex Hives 05/25/2024 Levofloxacin Other (see comment) 05/25/2024 Patient stated they dont remember what happens when they have Levaquin but was told to not take it again. 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 Active rivaroxaban (XARELTO) 20 MG Tab tablet Take 1 tablet (20 mg total) by mouth daily with supper. Take with food Active pantoprazole EC (PROTONIX) 20 MG tablet Take 1 tablet (20 mg total) by mouth daily. Active simvastatin (ZOCOR) 40 MG tablet Take 1 tablet (40 mg total) by mouth nightly at bedtime. Active folic acid (FOLVITE) 1 MG tablet Take 1 tablet (1 mg total) by mouth daily. Active aspirin 81 MG chewable tablet Chew 1 tablet (81 mg total) by mouth daily. Active ferrous sulfate, 65 mg elemental, 325 (65 FE) MG tablet Take 1 tablet (325 mg total) by mouth daily with breakfast. Active vitamin B-12 (CYANOCOBALAMIN ) (CYANOCOBALAMIN ) 1000 mcg tablet Take 1 tablet (1,000 mcg total) by mouth daily. Active vitamin D3, cholecalciferol , 125 mcg capsule Take 1 capsule (125 mcg total) by mouth daily. Active ALPRAZolam (XANAX) 0.5 MG tablet Take 1 tablet (0.5 mg total) by mouth nightly as needed for Sleep. Active albuterol sulfate HFA 108 (90 Base) MCG/ACT inhaler Inhale 2 puffs into the lungs every 6 (six) hours as needed for Wheezing. Active fluticasone-dinh meterol (ADVAIR HFA) 230-21 MCG/ACT inhaler Inhale 2 puffs into the lungs 2 (two) times daily. Active Encounters Date Type Department Care Team Description 06/08/2024 12:35 PM CDT - 06/08/2024 1:11 PM CDT Surgery [facility] [address] [place] [id number] Jadon Vu MD LEFT CATARACT REMOVAL WITH IOL IMPLANT 06/08/2024 10:50 AM CDT Anesthesia Event [facility] [address] [place] [address] Chanel Schuler CRNA 06/08/2024 9:35 AM CDT - 06/08/2024 11:26 AM CDT Hospital Encounter [facility] [address] [place] [address] Jadon Vu MD Discharge Disposition: Home or Self Care (Routine Discharge) 06/08/2024 Travel from Last 3 Months Social History Tobacco Use Types Packs/Day Years Used Date Smoking Tobacco: Some Days Cigarettes Smokeless Tobacco: Never Tobacco Cessation:Ready to Q uit: Not Asked; Counseling Given: Not Answered Alcohol Use Standard Drinks/Week Comments Never 0 (1 standard drink = 0.6 oz pur e alcohol) Comments No Sex and Gender Information Value Date Recorded Sex Assigned at Not on file Legal Sex Female 1:50 PM CDT Gender Identity Not on file Sexual Orientation Not on file Last Filed Vital Signs Vital Sign Reading Time Taken Comments Blood Pressure 132/55 06/08/2024 11:15 AM CDT Pulse 60 06/08/2024 11:15 AM CDT Temperature 36.3 ??C (97.3 ??F) 06/08/2024 9:56 AM CD T Respiratory Rate 18 06/08/2024 9:56 AM CDT Oxygen Saturation 99% 06/08/2024 11:15 AM CDT Inhaled Oxygen Concentration - - Weight 83.9 kg (185 lb) 05/25/2024 12:05 PM CDT Height 162.6 cm (5' 4 ) 05/25/2024 12:05 PM CDT Body Mass Index 31.75 05/25/2024 12:05 PM CDT Plan of Treatment Health Maintenance Due Date Last Done Comments Cervical Cancer Screening Pa p Smear (Age 30 to 64) Every 3 Years 1961 Colorectal Cancer Screening Colonoscopy (10 Years) 1961 Annual Physical 1964 Pneumococcal Vaccine: Pediatrics (0 to 5 Years) and At-Risk Patients (6 to 64 Years) (1 of 2 - PCV) 1967 Hepatitis C 1979 DTaP, Tdap and Td Vaccines ( 1 - Tdap) 1980 Cervical Cancer Screening Pa p with HPV Testing (Age 30 to 64) Every 5 Years 1991 Cervical Cancer Screening wi th HPV 1991 Zoster Vaccines (1 of 2) 2011 RSV Immunization or 60+ Years (1 - 1-dose 60+ series) 2021 Mammogram Screening 07/18/2022 07/18/2020, 07/15/2019 COVID-19 Vaccine (1 - 2023-2 5 season) 2024 Influenza Adult (#1) 2024 Meningococcal Vaccine Aged Out No daniela brook eligible based on patient's age to complete this topic RSV Immunizations Under 20 Months Aged Out No longer eligible b ased on patient's age to complete this topic Medical Devices Implanted Type Area Vaccine Customer Representative Device Identifier Shelf Expiration Date Model / Serial / Lot Tecnis 1-Piece Iol Implanted:Qty: 1 on 06/08/2024 by Jadon Vu MD at [facility] Left: Eye [employer] 10/27/2026 / [id number] / Procedures Procedure Name Priority Date/Time Associated Diagnosis Comments REMV CATARACT EXTRACAP,INSERT LENS 06/08/2024 10:49 AM CDT H25.12 Special Needs C from Last 3 Months Insurance [facility] MEDICAID Care Teams Retail Administrative Assistant Relationship Specialty Start Date End Date Eris Vu MD [address] [place] [address] PCP - General FAMILY PRACTICE 06/05/24
--- OUTSIDE RECORDS SUMMARY | 2024-09-04 17:09 | XMS_ITS | CONTINUITY OF CARE DOCUMENT ---
Author Name keke davies Address Unknown Organization [facility] Address [address] [place] [address] Phone [phone] Care Team Providers Care Video News Editor Name Role Phone Vin Tay MD Unavailable [phone] INSURANCE PROVIDERS Payer name Policy type / Coverage type [place] [employer] party ID [id number] PAY [id number]
--- OUTSIDE RECORDS SUMMARY | 2024-09-04 17:09 | XMS_ITS | Encounter Summary ---
Author Organization [facility] Address [address] [facility] [address] [place] [address] Care Team Providers Care Land Leveler Name Role Phone Dominic Fernando MD Primary Care Provider [phone] Reason for Referral * Diagnostic Imaging (Routine) - Closed Specialty Diagnoses / Procedures Referred By Contac t Referred To Contact Diagnoses Aftercare following right knee joint replacement surgery Procedures XR Knee Right 1 or 2 Views eKmal Wright MD Phone: tel: fax: Referral ID Status Reason Start Date Expiration Date Visits Re quested Visits Authorized [id number] Closed 04/01/2019 10/10/2020 1 1 Reason for Visit * Reason Comments Follow-up Encounter Details Date Type Department Care Team (Late st Contact Info) Description 04/01/2019 11:00 AM CDT Office Visit [facility] Orthopedics and Sports Medicine [address] [place] [phone] Kemal Wright MD [address] [place] [address] [address] [address] Weakness of right lower extremity (Primary Dx); Aftercare following right knee joint replacement surgery Social History Tobacco Use Types Packs/Day Years Used Date Smoking Tobacco: Every Day Cigarettes Smokeless Tobacco: Current Comments:quitting now, 1 pac k last 2-3 days Alcohol Use Standard Drinks/Week Comments No 0 (1 standard drink = 0.6 oz pur e alcohol) Comments No Sex and Gender Information Value Date Recorded Sex Assigned at Not on file 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 Gender Identity Not on file Sexual Orientation Not on file documented as of this encounter Last Filed Vital Signs Vital Sign Reading Time Taken Comments Blood Pressure 126/85 04/01/2019 10:41 AM CDT Pulse 89 04/01/2019 10:41 AM CDT Temperature - - Respiratory Rate - - Oxygen Saturation - - Inhaled Oxygen Concentration - - Weight 81 kg (178 lb 9.6 oz) 04/01/2019 10:41 AM CDT Height 165.1 cm (5' 5 ) 04/01/2019 10:41 AM CDT Body Mass Index 29.72 04/01/2019 10:41 AM CDT documented in this encounter Progress Notes * Kemal Wright MD - 04/01/2019 11:00 AM CDT Images from the original note were not included. NEW PATIENT VISIT Subjective CHIEF COMPLAINT She had concerns including Follow-up of the Right Knee. HISTORY OF PRESENT ILLNESS Right knee pain for over 1 year. The pain is not recently gotten worse does note started the problem the pain is burning achy moderate nothing makes it better nothing makes it worse the pain is continuous is not work comp did not start work she has had steroid injections physical therapy TENS unitsand surgery with no change she reports her knee occasionally gives out her date of surgery was November 11, 2018 right total knee arthroplasty. Medical Records Tech completed by using M*Modal Fluency Direct speaking software, therefore, transcriptionvariances may occur. Pain Assessment Pain Assessment: 0-10 Pain Score: 5 - Moderate pain PAST MEDCIAL HISTORY She has a past medical history of Cervical cancer ([facility]), Emphysema of lung ([facility]), GERD (gastroesophageal reflux disease), H/O: hysterectomy, Hiatal hernia, History of blood clots, Hyperlipidemia, Hypothyroidism, Poor circulation, Stroke ([facility]), and Thyroid disease. She also has no past medical history of Hypertension. PAST SURGICAL HISTORY She has a past surgical history that includes Cholecystectomy; Neck surgery; Knee arthroscopy; Rotator cuff repair; Carotid endarterectomy; Breast surgery; Eye surgery; Tubal ligation; and Hysterectomy. MEDICATIONS She has a current medication list which includes the following prescription(s): albuterol hfa, atorvastatin, cetirizine, cholecalciferol, cyanocobalamin, docusate sodium, ergocalciferol, folic acid, levothyroxine, narcan, ondansetron odt, pantoprazole dr, promethazine, tramadol, xarelto, celecoxib,and gabapentin. ALLERGIES She is allergic to codeine; morphine; penicillins; latex; and vancomycin. SOCIAL HISTORY She reports that she has been smoking. She has been smoking about 1.00 pack per day. She uses smokeless tobacco. She reports that she does not drink alcohol or use drugs. FAMILY HISTORY Her family history includes Arthritis in her mother; Cancer in her mother; Clotting disorder in hersister; Diabetes in her father, mother, sister, and son; Heart disease in her father; Hypertension in her mother; Stroke in her son. REVIEW OF SYSTEMS Review of Systems Constitutional: Negative for activity change, appetite change, chills and fever. HENT: Negative for congestion, dental problem, ear pain, hearing loss and voice change. Eyes: Negative for pain and visual disturbance. Respiratory: Negative for apnea, cough, chest tightness and shortness of breath. Cardiovascular: Negative for chest pain, palpitations and leg swelling. Gastrointestinal: Negative for blood in stool, constipation, diarrhea, nausea and vomiting. Endocrine: Negative for cold intolerance and heat intolerance. Genitourinary: Negative for difficulty urinating and hematuria. Skin: Negative for color change, rash and wound. Allergic/Immunologic: Negative for environmental allergies. Neurological: Negative for dizziness, syncope, numbness and headaches. Hematological: Negative for adenopathy. Does not bruise/bleed easily. Psychiatric/Behavioral: Negative for confusion. The patient is not nervous/anxious and is not hyperactive. Objective PHYSICAL EXAM BP 126/85 Pulse 89 Ht 165.1 cm (5' 5 ) Wt 81 kg (178 lb 9.6 oz) BMI 29.72 kg/m?? Ortho Exam REVIEW OF X-RAYS/STUDIES/LABS XR Knee Right 1 or 2 Views Two views right knee shows Oxinium cemented total knee arthroplasty good position no signs of loosening Assessment/Plan Gege was seen today for follow-up. Diagnoses and all orders for this visit: Aftercare following right knee joint replacement surgery - XR Knee Right 1 or 2 Views Procedures PLAN Continue physical therapy use TENS home exercise program follow-up to be re-evaluated CHARLENE Salguero MD documented in this encounter Plan of Treatment Not on file documented as of this encounter Procedures Procedure Name Priority Date/Time Associated Diagnosis Comments XR KNEE RIGHT 1 OR 2 VIEWS Schedule Routine, Read Routine (OP Routine) 04/01/2019 10:42 AM CDT Aftercare following right knee joint replacement surgery documented in this encounter Results * XR Knee Right 1 or 2 Views (04/01/2019 10:42 AM CDT) Anatomical Region Laterality Modality Lower Extremities, Knee Right Radiogra phic Imaging Narrative 04/05/2019 12:05 PM CDT Two views right knee shows Oxinium cemented total knee arthroplasty good position no signs of loosening us Kemal Wright MD IMG XR PROCEDURES Final Resu lt documented in this encounter Visit Diagnoses Diagnosis Weakness of right lower extremity- Primary Aftercare following right knee joint replacement surgery documented in this encounter Care Teams Land Leveler Relationship Specialty Start Date End Date Dominic Fernando MD [address] [facility] [address] [place] [address] PCP - General 08/13/17 documented as of this encounter
--- OUTSIDE RECORDS SUMMARY | 2024-09-04 17:09 | XMS_ITS | Encounter Summary ---
Author Organization [facility] Address [address] [facility] [address] [place] [address] Care Team Providers Care Lockstitch Collar Setter Name Role Phone Dominic Fernando MD Primary Care Provider [phone] Encounter Details Date Type Department Care Team (Late st Contact Info) Description 02/06/2019 Orders Only [facility] Orthopedics and Sports Medicine [address] [facility] [address] [place] [id number] Juanita Mckay PA [address] [facility] [address] [place] [address] Aftercare following right knee joint replacement surgery (Primary Dx) Social History Tobacco Use Types Packs/Day Years Used Date Smoking Tobacco: Every Day Cigarettes Smokeless Tobacco: Current Comments:quitting now, 1 pac k last 2-3 days Alcohol Use Standard Drinks/Week Comments No 0 (1 standard drink = 0.6 oz pur e alcohol) Comments No Sex and Gender Information Value Date Recorded Sex Assigned at Not on file 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
--- OUTSIDE RECORDS SUMMARY | 2024-09-04 17:09 | XMS_ITS | Encounter Summary ---
Author Organization [facility] Care Team Providers Care It Teacher Name Role Phone Dominic Fernando MD Primary Care Provider [phone] Encounter Details Date Type Department Care Team (Latest Contact Info) Description 12/24/2018 Travel Social History Tobacco Use Types Packs/Day Years Used Date Smoking Tobacco: Every Day Cigarettes Smokeless Tobacco: Current Comments:quitting now, 1 pac k last 2-3 days Alcohol Use Standard Drinks/Week Comments No 0 (1 standard drink = 0.6 oz pur e alcohol) Comments No Sex and Gender Information Value Date Recorded Sex Assigned at Not on file 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
--- OUTSIDE RECORDS SUMMARY | 2024-09-04 17:09 | XMS_ITS | Encounter Summary ---
Author Organization [facility] Care Team Providers Care Crystal Gazer Name Role Phone Dominic Fernando MD Primary Care Provider [phone] Encounter Details Date Type Department Care Team (Latest Contact Info) Description 02/04/2019 Travel Social History Tobacco Use Types Packs/Day Years Used Date Smoking Tobacco: Every Day Cigarettes Smokeless Tobacco: Current Comments:quitting now, 1 pac k last 2-3 days Alcohol Use Standard Drinks/Week Comments No 0 (1 standard drink = 0.6 oz pur e alcohol) Comments No Sex and Gender Information Value Date Recorded Sex Assigned at Not on file 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
--- OUTSIDE RECORDS SUMMARY | 2024-09-04 17:09 | XMS_ITS | Referral Summary ---
Author Organization [facility] Address [address] [place] [address] Care Team Providers Care Furniture Repair Technician Name Role Phone Dominic Fernando MD Primary Care Provider [phone] Allergies Active Allergy Reactions Criticality Noted Date Comments Adhesive Tape-Silicones Other (See comments) Medium 08/19/2014 Blisters Codeine Shortness of breath High Food Allergy Formula Other (See comments) Low 08/19 Alcohol- makes her break out in blisters Latex Rash Medium Morphine Hypotension High Penicillins Shortness of breath High Vancomycin Other (See comments),Headache Low 11/15/2017 Headache, flushed face, redmans. red man Medications cyanocobalamin (Vitamin B-12) 1,000 mcg tabletIndicatio ns:Prevention of Vitamin B12 Deficiency Take 1,000 mcg by mouth daily. Active levothyroxine (SYNTHROID, LEVOTHROID) 112 mcg tablet Take 112 mcg by mouth early childhood associate before breakfast. 07/21/2018 Active XARELTO 20 mg tablet Take 20 mg by mouth daily. 06/09/2018 Active atorvastatin (LIPITOR) 40 mg tablet Take 40 mg by mouth daily. 10/09/[address] (PROTONIX) 20 mg EC tablet Take 20 mg by mouth daily. 10/09/2018 Active folic acid (FOLVITE) 1 mg tablet Take 1 mg by mouth daily. Active cholecalciferol (VITAMIN D-3) 50,000 unit capsule Take by mouth Active metoprolol XL (TOPROL-XL) 50 mg 24 hr tablet Take 50 mg by mouth daily 09/22/2019 Active DOXYCYCLINE HYCLATE 100 mg capsule TAKE 1 CAPSULE BY MOUTH TWICE DAILY UNTIL GONE 09/22/2019 Active Active Problems Problem Noted Date Diagnosed Date History of total knee arthroplasty, right 2018 Resolved Problems Problem Noted Date Diagnosed Date Resolved Date Primary osteoarthritis of right knee 09/24/2018 10/01/2019 Overview (09/24/2018): Added automatically from request for surgery [id number] Social History Tobacco Use Types Packs/Day Years Used Date Smoking Tobacco: Every Day Cigarettes Smokeless Tobacco: Current Comments:quitting now, 1 pac k last 2-3 days Alcohol Use Standard Drinks/Week Comments No 0 (1 standard drink = 0.6 oz pur e alcohol) Comments No Sex and Gender Information Value Date Recorded Sex Assigned at Not on file Legal Sex Female 11:26 PM MINIATURE SET 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 Gender Identity Not on file Sexual Orientation Not on file Last Filed Vital Signs Vital Sign Reading Time Taken Comments Blood Pressure 98/64 10/02/2019 8:21 AM MINIATURE SET BUILDER Pulse 55 10/02/2019 8:21 AM MINIATURE SET BUILDER Temperature 37.1 ??C (98.8 ??F) 11/24/2018 12:06 PM C DT Respiratory Rate 16 11/24/2018 12:06 PM CDT Oxygen Saturation 98% 11/24/2018 12:06 PM CDT Inhaled Oxygen Concentration - - Weight 80.4 kg (177 lb 3.2 oz) 10/02/2019 8:21 A M MINIATURE SET BUILDER Height 165.1 cm (5' 5 ) 10/02/2019 8:21 AM MINIATURE SET BUILDER Body Mass Index 29.49 10/02/2019 8:21 AM MINIATURE SET BUILDER Plan of Treatment Not on file Medical Devices Implanted Type Area Insurance Professional Device Identifier Shelf Expiration Date Model / Serial / Lot [employer] tho [id number] Legion 9mm Dished Knee 3-4 Insert Tibial Xlpe - [id number] Implanted:Qty: 1 on 11/11/2018 by Kemal Wright MD at [facility] Right: Knee [employer] tho 08/11/2028 [id number] / / [id number] [employer]Or tho [id number] 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 Taper Knee Right 4 Baseplate Tibial Titanium - [id number] Implanted:Qty: 1 on 11/11/2018 by Kemal Wright MD at [facility] Right: Knee [employer] 07/18/2028 [id number] / / [id number]- Size 4 Right Cruciate Retaining Legion Oxinium Femoral Componenet Implanted:Qty: 1 on 11/11/2018 by Kemal Wright MD at [facility] Right: Knee [employer] [id number] 01/06/2028 [id number] / / [id number] [employer] [id number] [place]os R+G High Viscosity Cement Bone Gentamicin Arthroplasty - [id number] Implanted:Qty: 1 on 11/11/2018 by Kemal Wright MD at [facility] Right: Knee [employer] 04/15/2021 [id number] / / [id number] Insurance MEDICARE IDVT MEDICARE IDVT Advance Directives For more information, please contact: [phone] * Full Code (Latest Code Status on File) Date Activated Date Inactivated Comments 11/14/2018 1:26 PM 11/15/2018 7:15 PM * Full Code Date Activated Date Inactivated Comments 11/13/2018 10:00 AM 11/14/2018 1:16 PM per patient request * Full Code Date Activated Date Inactivated Comments 11/11/2018 7:40 PM 11/12/2018 8:26 PM Care Teams Furniture Repair Technician Relationship Specialty Start Date End Date Dominic Fernando MD [address] [facility] [address] [place] [address] PCP - General 08/13/17
--- OUTSIDE RECORDS SUMMARY | 2024-09-04 17:09 | XMS_ITS | Encounter Summary ---
Author Organization [facility] Address [address] [place] [address]. [place], [place] [address] [place] [address] Care Team Providers Care Art Psychotherapist Name Role Phone Eris Vu MD Primary Care Provider [phone] Reason for Visit * Auth/Cert (Routine) Specialty Diagnoses / Procedures Referred By Evan bo Referred To Contact Diagnoses H25.12 Procedures REMV CATARACT EXTRACAP,INSERT LENS LEFT CATARACT REMOVAL WITH IOL IMPLANT Referral ID Status Reason Start Date Expiration Date Visits Re quested Visits Authorized [id number] 1 1 Encounter Details Date Type Department Care Team (Late st Contact Info) Description 06/08/2024 10:50 AM CDT Anesthesia Event [facility] [address] [place] [address] Chanel Schuler CRNA [address] [facility] [address] [place] [address] Anesthesia Record Procedure Summary Procedure Name Responsible Anesthesiologist Anesthesia Start Time Anesthesia Stop Time LEFT CATARACT REMOVAL WITH IOL IMPLANT (Left: Eye) Chanel Schuler CRNA 06/08/24 1050 06/08/24 1109 Events Date Time Event Comment 06/08/2024 1046 1046 AN PLC CONTROLS ENGINEER Prepped 1050 An Start Patient ID and consent checked and patient reassessed. 1050 An Start Data 1050 AN Immediate Reassess The pa tient was reevaluated immediately before sedation or regional anesthesia. 1050 Face Mask Applied 1053 Anesthesia Ready 1109 An Stop 1109 an stop data 1109 Post Anesthetic Care Handoff I completed my handoff to the receiving nurse during which we: 1. Identified the patient 2. Identified the responsible provider 3. Reviewed the pertinent medical history 4. Discussed the surgical course 5. Reviewed intra-op anesthesia management and issues during anesthesia 6. Set expectations for post-procedure period 7. Allowed opportunity for questions and acknowledgement of understanding. Meds Name Total midazolam 2 mg/2 mL injection 2 mg * Agents Name O2 * Blood No blood administrations on file. Lines, Drains, and Airways Type Details Placement Removal Peripheral IV Placement Date: 06/08/24; Placement Time: 958; Placed Outside of This Facility?: No; Size: 20 G; Orientation: Right; Location: Antecubital; Site Prep: Chlorhexidine; Inserted By: Norris; Insertion attempts: 1; Patient Tolerance: Tolerated well; Removal Date: 06/08/24; Removal Time: 13206/08/24 0959 by Ekaterina Aquino RN 06/08/24 1327 by Automatic Discharge Provider Surgical/Incision 06/08/24; 1042; Surgical Wound; Eye; Left; SHIELD EYE ADULT, TAPE PAPER 1; 06/08/24; 1327 06/08/24 1042 by Ivanna Watkins RN 06/08/24 1327 by Automatic Discharge Provider documented in this encounter Social History Tobacco [...] on file documented as of this encounter OR Notes * Anesthesia Postprocedure Evaluation - Chanel Schuler CRNA - 06/08/2024 11:09 AM CDT Anesthesia Post-op Note Gege Vidal Procedure(s): LEFT CATARACT REMOVAL WITH IOL IMPLANT (Left: Eye) Anesthesia type: MAC Vitals: 06/08/24955 BP: 115/67 Vitals: 06/08/24955 Pulse: 75 Vitals: 06/08/24955 Resp: 18 Vitals: 06/08/24955 Temp: 36.3 ??C Vitals: 06/08/24955 SpO2: 97% Patient Location: Phase II/Outpatient Level of Consciousness: awake, alert and oriented Pain Management: adequate analgesia Airway Patency: patent Respiratory Status: acceptable Cardiovascular Status: acceptable Post-Op Nausea: none Postoperative Hydration: euvolemic There were no known notable events for this encounter. * Anesthesia Preprocedure Evaluation - Chanel Schuler CRNA - 05/28/2024 7:32 AM CDT Anesthesia ROS/MED History Reviewed: Patient summary , Nursing notes , Medications Pre-Anesthetic State: alert, awake and responds appropriately Pulmonary (+) COPD, asthma Cardiovascular neg cardio ROS Exercise tolerance:poor Neuro/Psych (+) CVA, depression, anxiety Comments: Droopy face. No other residual Substance Use no history of substance abuse GI/Hepatic/Renal Endo/Other (+) obese, hypothyroidism, arthritis GENERAL COMMENTS H/O CEA On xarelto per chart. LD ? NPO Status: Physical Evaluation Airway Mallampati: II TM Distance: >3 FB Neck ROM: limited extension Dental (upper dentures), (lower dentures) Pulmonary Breath sounds clear to auscultation Cardiovascular Rhythm: regular Rate: normal Other findings: Decreased in bases STOP-Bang Assessment: Anesthesia Plan ASA 3 Intravenous Induction Anesthesia type: MAC Plan for Airway: nasal cannula/simple face mask Plan for Post-op Pain Plan: as per surgeon Informed Consent Anesthetic plan and risks discussed with patient of whom consent was obtained. . documented in this encounter Plan of Treatment Not on file documented as of this encounter Visit Diagnoses Not on filedocumented in this encounter Administered Medications Inactive Administered Medications - up to 3 most recent administrations Medication Order MAR Action Action Date Dose Rate Site midazolam (VERSED) injection Intravenous, PRN, Starting on Sat06/08/24 at 1055, Until Sat06/08/24 at 1109, Anesthesia Intra-Op Given 06/08/2024 10:58 AM CDT 1 mg Given 06/08/2024 10:55 AM CDT 1 mg documented in this encounter Care Teams Art Psychotherapist Relationship Specialty Start Date End Date Eris Vu MD [address] [place] [address] PCP - General FAMILY PRACTICE 06/05/24 documented as of this encounter
--- OUTSIDE RECORDS SUMMARY | 2024-09-04 17:09 | XMS_ITS | Encounter Summary ---
Author Organization [facility] Address [address] [place] [address] Care Team Providers Care Campus Dean Name Role Phone Dominic Fernando MD Primary Care Provider [phone] Reason for Referral * Diagnostic Imaging (Routine) - Closed Specialty Diagnoses / Procedures Referred By Contac t Referred To Contact Diagnoses Suspected DVT (deep vein thrombosis) Procedures US Vein Duplex Lower Extremity Right Limited Teodora Prieto PA Phone: tel: fax: [facility] Referral ID Status Reason Start Date Expiration Date Visits Re quested Visits Authorized [id number] Closed 12/01/2018 06/11/2020 1 1 Reason for Visit * Diagnostic Imaging (Routine) - Closed Specialty Diagnoses / Procedures Referred By Contac t Referred To Contact Diagnoses Suspected DVT (deep vein thrombosis) Procedures US Vein Duplex Lower Extremity Right Limited Teodora Prieto PA Phone: tel: fax: [facility] Referral ID Status Reason Start Date Expiration Date Visits Re quested Visits Authorized [id number] Closed 12/01/2018 06/11/2020 1 1 Encounter Details Date Type Department Care Team (Late st Contact Info) Description 12/01/2018 2:35 PM CDT - 12/01/2018 11:59 PM CDT Hospital Encounter [facility] [address] [place] [address] Teodora Prieto PA [address] [place] [address] [address] [place] [address] Kemal Wright MD [address] [facility] [address] [place] [address] Suspected DVT (deep vein thrombosis) Discharge Disposition: Discharge to home or self care Social History Tobacco Use Types Packs/Day Years Used Date Smoking Tobacco: Every Day Cigarettes Smokeless Tobacco: Current Comments:quitting now, 1 pac k last 2-3 days Alcohol Use Standard Drinks/Week Comments No 0 (1 standard drink = 0.6 oz pur e alcohol) Comments No Sex and Gender Information Value Date Recorded Sex Assigned at Not on file 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 9 cyanocobalamin (Vitamin B-12) 1,000 mcg tabletIndications:P revention of Vitamin B12 Deficiency Take 1,000 mcg by mouth daily. folic acid (FOLVITE) 1 mg tablet Take 1 mg by mouth daily. levothyroxine (SYNTHROID, LEVOTHROID) 112 mcg tablet Take 112 mcg by mouth women's ministry director before breakfast. [address] (PROTONIX) 20 mg EC tablet Take 20 mg by mouth daily. 9 XARELTO 20 mg tablet Take 20 mg by mouth daily. 8 ascorbic acid (VITAMIN C) 500 mg tablet,chewableIndi cations:Vitamin deficiency prevention Take 1 tablet/chew tab (500 mg total) by mouth 2 (two) times a day. 60 tablet/chew tab 9 12/13/19 19 ergocalciferol (VITAMIN D) 50,000 unit capsuleIndications: Vitamin D Deficiency Take 1 capsule (50,000 Units total) by mouth once a week. 4 capsule 9 11/07/19 20 ferrous sulfate 325 mg (65 mg of elemental iron) tabletIndications:I oriana Deficiency Anemia,Anemia prevention Take 1 tablet (325 mg total) by mouth daily with breakfast. 30 tablet 9 12/14/19 19 albuterol HFA (VENTOLIN HFA) 90 mcg/actuation inhaler Inhale 2 puffs 2 (two) times a day as needed. 9 10/02/19 20 celecoxib (CeleBREX) 200 mg capsuleIndications: Postoperative Acute Pain,Pain Take 1 capsule (200 mg total) by mouth 2 (two) times a day for 14 days. 28 capsule 9 10/02/19 20 cetirizine 10 mg capsule Take 10 mg by mouth daily as needed. 10/02/19 20 docusate sodium (COLACE) 100 mg capsuleIndications: constipation Take 100 mg by mouth daily. 1-3 tabs daily PRN for constipation Indications: constipation 10/02/19 gabapentin (NEURONTIN) 300 mg capsuleIndications: Postoperative Acute Pain Take 1 capsule (300 mg total) by mouth 3 (three) times a day for 7 days, THEN 2 capsules (600 mg total) 3 (three) times a day for 21 days. 147 capsule 9 12/25/19 19 HYDROmorphone (DILAUDID) 4 mg tabletIndications:P ain Take 1 tablet (4 mg total) by mouth every 4 (four) hours as needed for pain 23 tablet 9 12/25/19 19 NARCAN 4 mg/actuation spray,non-aerosol GLORIA REP ALN 0 9 10/02/19 20 ondansetron ODT (ZOFRAN-ODT) 4 mg disintegrating tablet Take 1 tablet (4 mg total) by mouth every 4 (four) hours as needed for nausea or vomiting. 20 tablet 1 9 10/02/19 20 promethazine (PHENERGAN) 25 mg tablet Take 1 tablet (25 mg total) by mouth every 6 (six) hours as needed for nausea or vomiting 20 tablet 1 9 10/02/19 20 traMADol (ULTRAM) 50 mg tablet Take 1-2 tablets every 6 hours 63 tablet 9 10/02/19 20 documented as of this encounter Discharge Disposition Disposition Code Departure Means Destination Discharge to home or self care documented in this encounter Plan of Treatment Not on file documented as of this encounter Procedures Procedure Name Priority Date/Time Associated Diagnosis Comments US VEIN DUPLEX LOWER EXTREMITY RIGHT LIMITED Schedule ROD, Read ROD (Appt Today, Awaiting Results) 12/01/2018 3:09 PM CDT Suspected DVT (deep vein thrombosis) documented in this encounter Results * US Vein Duplex Lower Extremity Right Limited (12/01/2018 3:09 PM CDT) Anatomical Region Laterality Modality Vascular Right Ultrasound 12/01/2018 3:15 PM CDT Impressions 12/01/2018 3:20 PM CDT 1. ??NEGATIVE FOR DEEP VENOUS THROMBOSIS. 2. ??FLUID DENSITY FOCUS LATERAL ASPECT OF THE RIGHT KNEE, 3.3 CM. IF CLINICALLY INDICATED MR COULD BE CONSIDERED. FINDINGS CALLED TO TEODORA BUSH 12/01/2018 AT 1500. Electronically signed by: Dion Vitale 12/01/2018 3:20 PM CDT US VEIN DUPLEX LOWER EXTREMITY RIGHT LIMITED HISTORY: Other specified symptoms and signs involving the circulatory and respiratory systems. ??Suspected DVT. TECHNIQUE: Color-flow Doppler examination and grayscale examination. COMPARISON: 11/14/2018. FINDINGS: Flow was seen within the common femoral vein, superficial femoral vein, popliteal vein as well as the posterior tibial and peroneal veins. ??No filling defects are seen. ??The veins are compressible. ??Flow within the saphenous veins, which were compressible. ??A fluid density focus is seen lateral aspect of the right knee which measures 3.3 x 2 point 2 x 2 CM. Procedure Note Giovanni Rodriguez MD - 12/01/2018 US VEIN DUPLEX LOWER EXTREMITY RIGHT LIMITED HISTORY: Other specified symptoms and signs involving the circulatory and respiratory systems. Suspected DVT. TECHNIQUE: Color-flow Doppler examination and grayscale examination. COMPARISON: 11/14/2018. FINDINGS: Flow was seen within the common femoral vein, superficial femoral vein, popliteal vein as well as the posterior tibial and peroneal veins. No filling defects are seen. The veins are compressible. Flow within the saphenous veins, which were compressible. A fluid density focus is seen lateral aspect of the right knee which measures 3.3 x 2 point 2 x 2 CM. IMPRESSION: 1. NEGATIVE FOR DEEP VENOUS THROMBOSIS. 2. FLUID DENSITY FOCUS LATERAL ASPECT OF THE RIGHT KNEE, 3.3 CM. IF CLINICALLY INDICATED MR COULD BE CONSIDERED. FINDINGS CALLED TO TEODORA BUSH 12/01/2018 AT 1500. Electronically signed by: Giovanni Rodriguez M.D us Teodora JOHNSON IMG US PROCEDURES Fi nal Result documented in this encounter Visit Diagnoses Diagnosis Suspected DVT (deep vein thrombosis) documented in this encounter Care Teams Campus Dean Relationship Specialty Start Date End Date Dominic Fernando MD [address] [facility] [address] [place] [id number] PCP - General 08/13/17 documented as of this encounter
--- OUTSIDE RECORDS SUMMARY | 2024-09-04 17:09 | XMS_ITS | Encounter Summary ---
Author Organization [facility] Facility Care Team Providers Care Marketing Researcher Name Role Phone Dominic Fernando MD Primary Care Provider [phone] Encounter Details Date Type Department Care Team (Latest Contact Info) Description 12/01/2018 Travel Social History Tobacco Use Types Packs/Day Years Used Date Smoking Tobacco: Every Day Cigarettes Smokeless Tobacco: Current Comments:quitting now, 1 pac k last 2-3 days Alcohol Use Standard Drinks/Week Comments No 0 (1 standard drink = 0.6 oz pur e alcohol) Comments No Sex and Gender Information Value Date Recorded Sex Assigned at Not on file 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
--- OUTSIDE RECORDS SUMMARY | 2024-09-04 17:09 | XMS_ITS | Encounter Summary ---
Author Organization [facility] Address [address] [place] [address]. [place], [place] [address] [place] [id number] Care Team Providers Care Senior Quality Manager Name Role Phone Eris Denson MD Primary Care Provider [phone] Reason for Visit * Auth/Cert (Routine) Specialty Diagnoses / Procedures Referred By Evan bo Referred To Contact Diagnoses H25.12 Procedures REMV CATARACT EXTRACAP,INSERT LENS LEFT CATARACT REMOVAL WITH IOL IMPLANT Referral ID Status Reason Start Date Expiration Date Visits Re quested Visits Authorized [id number] 1 1 Encounter Details Date Type Department Care Team (Latest Contact Info) Description 06/08/2024 9:35 AM CDT - 06/08/2024 11:26 AM CDT Hospital Encounter [facility] [address] [place] [address] Tracee Denson MD [address] [facility] [address] [place] [address] Discharge Disposition: Home or Self Care (Routine Discharge) Social History Tobacco Use Types Packs/Day Years [...] Mass Index 31.75 05/25/2024 12:05 PM CDT documented in this encounter Discharge Instructions * Discharge Instructions* Sarah Granado RN - 06/08/2024 9:41 AM CDT [facility] POST-OP INSTRUCTIONS FOLLOWING CATARACT SURGERY 1. You will be sent home from surgery with a patch over your eye. DO NOT REMOVE THE PATCH FOR ANY REASON. Dr. Denson will remove the patch at your 1st Post-Op (The day of surgery or the next day) and instruct you on how to use your eye drops. 2. SLEEP ON YOUR BACK OR EITHER SIDE. The night after surgery DO NOT SLEEP FACE DOWN . 3. DO NOT RUB OR PRESS ON YOUR EYE. Blot underneath or at the corner of your eye. 4. PROTECT YOUR EYE WHEN YOU NAP DURING THE DAY OR SLEEP AT NIGHT FOR 10 DAYS FOLLOWING SURGERY. Use the clear plastic shield (found in your surgery kit). Place the shield over the eye with paper tape across it to hold the shield in place. 5. LIMIT BENDING MUCH POSSIBLE AND KEEP HEAD FROM A DEPENDENT POSITION. Instead, bend your knees. You may want to hold onto a chair etc. To help keep your balance. 6. DO NOT LIFT ANYTHING OVER 20 POUNDS FOR 2 WEEKS. 7. DO NOT DO ANY STRENUOUS WORK OR EXERCISE FOR 2 WEEKS. For example: Where you strain or break a sweat. 8. DO NOT GET SOAP IN YOUR EYES. When you shower and shampoo. 9. DO NOT WEAR EYE MAKEUP OR USE CREAMS OR LOTIONS around your eyes for 2 weeks. 10. YOU MAY DRIVE WHEN YOUR VISION PERMITS. Ask you doctor. You must have a four horse hitch driver for the day of surgery and your 1st post op exam. 11. ALWAYS WERE SUNGLASSES WHEN YOU GO OUTSIDE. These are found in your surgery kit. Dr. Denson OFFICE [phone] AFTER HOURS EMERGENCY [phone] * Attachments The following attachments cannot be sent through Care Everywhere. * Cataract Removal Discharge Instructions (Sinhala) documented in this encounter Medications at Time of Discharge albuterol sulfate HFA 108 (90 Base) MCG/ACT inhaler Inhale 2 puffs into the lungs every 6 (six) hours as needed for Wheezing. ALPRAZolam (XANAX) 0.5 MG tablet Take 1 tablet (0.5 mg total) by mouth nightly as needed for Sleep. aspirin 81 MG chewable tablet Chew 1 tablet (81 mg total) by mouth daily. ferrous sulfate, 65 mg elemental, 325 (65 FE) MG tablet Take 1 tablet (325 mg total) by mouth daily with breakfast. fluticasone-salme terol (ADVAIR HFA) 230-21 MCG/ACT inhaler Inhale 2 puffs into the lungs 2 (two) times daily. folic acid (FOLVITE) 1 MG tablet Take 1 tablet (1 mg total) by mouth daily. levothyroxine (SYNTHROID) 88 MCG tablet Take 1 tablet (88 mcg total) by mouth every morning. pantoprazole EC (PROTONIX) 20 MG tablet Take 1 tablet (20 mg total) by mouth daily. rivaroxaban (XARELTO) 20 MG Tab tablet Take 1 tablet (20 mg total) by mouth daily with supper. Take with food simvastatin (ZOCOR) 40 MG tablet Take 1 tablet (40 mg total) by mouth nightly at bedtime. vitamin B-12 (CYANOCOBALAMIN) (CYANOCOBALAMIN) 1000 mcg tablet Take 1 tablet (1,000 mcg total) by mouth daily. vitamin D3, cholecalciferol, 125 mcg capsule Take 1 capsule (125 mcg total) by mouth daily. documented as of this encounter H&P Notes * Tracee Denson MD - 06/08/2024 7:03 AM CDT HISTORY AND PHYSICAL INTERVAL NOTE: I have reviewed Gege Vidal History & Physical which was performed within the past 30 days. After examining Gege Vidal, no change has occurred in the patient's condition since the H&P was completed. Informed Consent Discussion: Risks, benefits, alternatives as well as the consequences of not performing the surgery/procedure were discussed with the patient and/or family/personal truck sales representative. Questions were answered and the patient/family/personal truck sales representative verbalized understanding and desires to proceed. TRACEE DENSON MD documented in this encounter OR Notes * Op Note - Tracee Denson MD - 06/08/2024 11:26 AM CDT GLENNS FERRY, [place] OPERATIVE REPORT Date: 06/08/2024 Patient Name: Gege Vidal : 1960 Surgeon: TRACEE DENSON MD. Preoperative Diagnosis: Cataract left Postoperative Diagnosis: Cataract left Name of Operation: Cataract Extraction (by Phacoemulsification) and Intraocular Lens Implant Anesthesia: Topical Specimen: None Complications: NONE EBL: NONE Description of Procedure: The eye was anesthetized with topical 0.75% bupivacaine. After intravenous sedation and placement of monitors, the patient was prepped and draped in the usual sterile manner. A lid speculum was placed. A paracentesis was made, and preservative free 1% lidocaine was instilled in the anterior chamber. The anterior chamber was then filled with Viscoat viscoelastic. A nima keratome was used to create the wound. Continuous tear anterior capsulotomy was performed. The lens was hydro dissected before being removed with phacoemulsification. The remaining lenticular cortexwas removed with aspiration. The capsular bag was polished and filled with viscoelastic material. An intraocular lens was chosen, inspected, irrigated and placed within the capsular bag where it was seen to be centered and stable. The viscoelastic material was aspirated. The wound was closed and found to be watertight. Betadine and antibiotic drops were placed in the eye. The speculum was removed. A Patel shield was applied. The patient tolerated the procedure well and left the operating room in satisfactory condition. TRACEE DENSON MD documented in this encounter Plan of Treatment Not on file documented as of this encounter Procedures Procedure Name Priority Date/Time Associated Diagnosis Comments REMV CATARACT EXTRACAP,INSERT LENS 06/08/2024 10:49 AM CDT H25.12 Special Needs C documented in this encounter Visit Diagnoses Not on filedocumented in this encounter Administered Medications Inactive Administered Medications - up to 3 most recent administrations Medication Order MAR Action Action Date Dose Rate Site besifloxacin (BESIVANCE) 0.6 % ophthalmic suspension 1 drop 1 drop, Left Eye, Every 5 min, 3 doses, First dose on Sat06/08/24 at 1000, Last dose on Sat06/08/24 at 1010 Given 06/08/2024 10:08 AM CDT 1 drop Given 06/08/2024 10:02 AM CDT 1 drop Given 06/08/2024 9:57 AM CDT 1 drop methazolAMIDE (NEPTAZANE) tablet 50 mg 50 mg, Oral, Once, 1 dose, On Sat06/08/24 at 1000, If NOT allergic to Sulfa, Post-Op Given 06/08/2024 11:17 AM CDT 50 mg proparacaine (ALCAINE) 0.5 % ophthalmic solution 1 drop 1 drop, Left Eye, Once, 1 dose, On Sat06/08/24 at 1000 Given 06/08/2024 9:57 AM CDT 1 drop tropicamide 1%-cyclopentolate 1%-phenylephrine 2.5%-ketorolac 0.5% ophthalmic solution 1 drop 1 drop, Left Eye, Every 5 min, 3 doses, First dose on Sat06/08/24 at 1000, Last dose on Sat06/08/24 at 1010, Instill in operative eye, Pre-Op Given 06/08/2024 10:08 AM CDT 1 drop Given 06/08/2024 10:02 AM CDT 1 drop Given 06/08/2024 9:57 AM CDT 1 drop documented in this encounter Active and Recently Administered Medications Times are shown in CDT. Scheduled Medication Order 06/06/2024 06/07/2024 06/08/2024 besifloxacin (BESIVANCE) 0.6 % ophthalmic suspension 1 drop (COMPLETED) 1 drop, Left Eye, Every 5 min, 3 doses, First dose on Sat06/08/24 at 1000, Last dose on Sat06/08/24 at 1010 0957 (Given - Provid er: Ekaterina Aquino RN)1002 (Given - Provider: Ekaterina Aquino RN)1008 (Given - Provider: Ekaterina Aquino RN) methazolAMIDE (NEPTAZANE) tablet 50 mg (COMPLETED) 50 mg, Oral, Once, 1 dose, On Sat06/08/24 at 1000, If NOT allergic to Sulfa, Post-Op 1117 (Given - Provid er: Sarah Granado RN) proparacaine (ALCAINE) 0.5 % ophthalmic solution 1 drop (COMPLETED) 1 drop, Left Eye, Once, 1 dose, On Sat06/08/24 at 1000 0957 (Given - Provid er: Ekaterina Aquino RN) tropicamide 1%-cyclopentolate 1%-phenylephrine 2.5%-ketorolac 0.5% ophthalmic solution 1 drop (COMPLETED) 1 drop, Left Eye, Every 5 min, 3 doses, First dose on Sat06/08/24 at 1000, Last dose on Sat06/08/24 at 1010, Instill in operative eye, Pre-Op 0957 (Given - Provid er: Ekaterina Aquino RN)1002 (Given - Provider: Ekaterina Aquino RN)1008 (Given - Provider: Ekaterina Aquino RN) PRN Medication Order 06/06/2024 06/07/2024 06/08/2024 apraclonidine (IOPIDINE) 0.5% ophthalmic solution (CANCELED) As needed, Starting on Sat06/08/24 at 1101, Until Sat06/08/24 at 1111, Intra-Op 1101 (Given - Provid er: Tracee Denson MD) EPINEPHrine 0.3 mg in balanced salts (BSS) irrigation solution (CANCELED) As needed, Starting on Sat06/08/24 at 1101, Until Sat06/08/24 at 1111, Intra-Op 1101 (Given - Provid er: Tracee Denson MD) lidocaine (PF) (XYLOCAINE) 1 % injection (CANCELED) As needed, Starting on Sat06/08/24 at 1100, Until Sat06/08/24 at 1111, Intra-Op 1100 (Given - Provid er: Ivanna Watkins RN) moxifloxacin (VIGAMOX) 0.5% ophthalmic solution (CANCELED) As needed, Starting on Sat06/08/24 at 1110, Until Sat06/08/24 at 1111, Intra-Op 1110 (Given - Provid er: Tracee Denson MD - Comment: verified with surgeon) znztktyh-ekkoydfwn-zjzhozwrojzut (MAXITROL) ophthalmic ointment (CANCELED) As needed, Starting on Sat06/08/24 at 1101, Until Sat06/08/24 at 1111, Intra-Op 1101 (Given - Provid er: Tracee Denson MD) povidone-iodine (BETADINE) 5 % ophthalmic solution (CANCELED) As needed, Starting on Sat06/08/24 at 1100, Until Sat06/08/24 at 1111, Intra-Op 1100 (Given - Provid er: Ivanna Watkins RN) documented in this encounter Care Teams Senior Quality Manager Relationship Specialty Start Date End Date Eris Denson MD [address] [place] [address] PCP - General FAMILY PRACTICE 06/05/24 documented as of this encounter
--- OUTSIDE RECORDS SUMMARY | 2024-09-04 17:09 | XMS_ITS | Encounter Summary ---
Author Organization [facility] Medical [facility] Address [address] [place] [address] Care Team Providers Care Public Message Service Supervisor Name Role Phone Dominic Fernando MD Primary Care Provider [phone] Reason for Visit * Reason Onset Date Comments PT ? 02/06/2019 Encounter Details Date Type Department Care Team (Late st Contact Info) Description 02/06/2019 Telephone [facility] Orthopedics and Sports Medicine [address] [place] [address] Kemal Wright MD [address] [place] [address] [address] [place] [address] PT ? 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 I do not see a new order. documented in this encounter Plan of Treatment Not on file documented as of this encounter Visit Diagnoses Not on filedocumented in this encounter Care Teams Public Message Service Supervisor Relationship Specialty Start Date End Date Dominic Fernando MD [address] [facility] [address] [place] [address] PCP - General 08/13/17 documented as of this encounter
--- OUTSIDE RECORDS SUMMARY | 2024-09-04 17:09 | XMS_ITS | Encounter Summary ---
Author Organization [facility] Medical [facility] Address [address] [place] [address] Care Team Providers Care Specialized Language Instructor Name Role Phone Dominic Fernando MD Primary Care Provider [phone] Reason for Visit * Diagnostic Imaging (Routine) - Closed Specialty Diagnoses / Procedures Referred By Evan t Referred To Contact Diagnoses Unspecified orthopedic aftercare Procedures XR Knee Right 1 or 2 Views Juanita Mckay PA Phone: tel: fax: Referral ID Status Reason Start Date Expiration Date Visits Re quested Visits Authorized [id number] Closed 02/04/2019 08/15/2020 1 1 Encounter Details Date Type Department Care Team (Latest Contact Info) Description 02/04/2019 8:00 AM CDT - 02/04/2019 11:59 PM CDT Hospital Encounter [facility] Orthopedics and Sports Medicine [address] [facility] [address], [place] [id number] Discharge Disposition: Discharge to home or self [...] on file 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 9 cholecalciferol (VITAMIN D-3) 50,000 unit capsule Take by mouth cyanocobalamin (Vitamin B-12) 1,000 mcg tabletIndications:P revention of Vitamin B12 Deficiency Take 1,000 mcg by mouth daily. folic acid (FOLVITE) 1 mg tablet Take 1 mg by mouth daily. levothyroxine (SYNTHROID, LEVOTHROID) 112 mcg tablet Take 112 mcg by mouth assistant manager of operations before breakfast. [address] (PROTONIX) 20 mg EC tablet Take 20 mg by mouth daily. 9 XARELTO 20 mg tablet Take 20 mg by mouth daily. 8 ergocalciferol (VITAMIN D) 50,000 unit capsuleIndications: Vitamin D Deficiency Take 1 capsule (50,000 Units total) by mouth once a week. 4 capsule 9 11/07/19 20 albuterol HFA (VENTOLIN HFA) 90 mcg/actuation inhaler [...] daily PRN for constipation Indications: constipation 10/02/19 20 gabapentin (NEURONTIN) 300 mg capsuleIndications: Postoperative Acute Pain Take 1 capsule (300 mg total) by mouth 3 (three) times a day for 7 days 21 capsule 9 10/02/19 20 NARCAN 4 mg/actuation spray,non-aerosol GLORIA REP ALN [...] VIEWS Schedule Routine, Read Routine (OP Routine) 02/04/2019 10:39 AM CDT Aftercare following right knee joint replacement surgery documented in this encounter Results * XR Knee Right 1 or 2 Views (02/04/2019 10:39 AM CDT) Anatomical Region Laterality Modality Lower Extremities, Knee Right Digital Radiography Narrative 02/22/2019 9:16 AM CDT X-rays of the right knee are reviewed and interpreted and demonstrate no acute fractures subluxations or osseous changes. ??Status post TKA changes noted with implants in acceptable position. Juanita JOHNSON IMG XR PROCEDURES Final Result documented in this encounter Visit Diagnoses Not on filedocumented in this encounter Care Teams Specialized Language Instructor Relationship Specialty Start Date End Date Dominic Fernando MD [address] [facility] [address] [place] [address] PCP - General 08/13/17 documented as of this encounter
--- OUTSIDE RECORDS SUMMARY | 2024-09-04 17:09 | XMS_ITS | Encounter Summary ---
Author Organization [facility] Address [address] [place] [address] Care Team Providers Care Tile Burner Name Role Phone Dominic Fernando MD Primary Care Provider [phone] Reason for Referral * Diagnostic Imaging (Routine) - Closed Specialty Diagnoses / Procedures Referred By Evan t Referred To Contact Diagnoses Unspecified orthopedic aftercare Procedures XR Knee Right 1 or 2 Views Juanita Mckay PA Phone: tel: fax: Referral ID Status Reason Start Date Expiration Date Visits Re quested Visits Authorized [id number] Closed 02/04/2019 08/15/2020 1 1 Reason for Visit * Reason Comments Post-op s/p RTKA DOS 11/11/18 Post-op Encounter Details Date Type Department Care Team (Late st Contact Info) Description 02/04/2019 10:00 AM CDT Office Visit [facility] Orthopedics and Sports Medicine [address] [facility] [address] [place] [address] Juanita Mckay PA [address] [place] [address] [address] [place] [address] Aftercare following right knee joint replacement surgery [...] on file 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 Gender Identity Not on file Sexual Orientation Not on file documented as of this encounter Last Filed Vital Signs Vital Sign Reading Time Taken Comments Blood Pressure 126/74 02/04/2019 9:53 AM CDT Pulse 93 02/04/2019 9:53 AM CDT Temperature - - Respiratory Rate - - Oxygen Saturation - - Inhaled Oxygen Concentration - - Weight 83.1 kg (183 lb 3.2 oz) 02/04/2019 9:53 A M CDT Height 165.1 cm (5' 5 ) 02/04/2019 9:53 AM CDT Body Mass Index 30.49 02/04/2019 9:53 AM CDT documented in this encounter Progress Notes * Juanita Mckay PA - 02/04/2019 10:00 AM CDT Images from the original note were not included. .FOLLOW UP VISIT Subjective CHIEF COMPLAINT She had concerns including Post-op of the Right Knee and Post-op (s/p RTKA DOS 11/11/18). HISTORY OF PRESENT ILLNESS 3 mos s/p right TKA: DOS 11/11/18 She has been completing a course of PT at [facility] in [place]. She notes that the knee gives out occasionally, and she notes that this occurs with functional thing such as stairs. She states an episode of this occurring ~1-2 weeks ago, causing her to fall. Other than weakness, continued mild swelling and occasional instability, her pain and function has vastly improved. Pain Assessment Pain Assessment: 0-10 Pain Score: 5 - Moderate pain MEDICATIONS She has a current medication list which includes the following prescription(s): albuterol hfa, atorvastatin, cetirizine, cholecalciferol, cyanocobalamin, docusate sodium, ergocalciferol, folic acid, levothyroxine, narcan, ondansetron odt, pantoprazole dr, promethazine, tramadol, xarelto, celecoxib,and gabapentin. REVIEW OF SYSTEMS Review of Systems Constitutional: Negative for chills, fatigue and fever. Musculoskeletal: Negative for arthralgias, gait problem, joint swelling and myalgias. Skin: Negative for rash and wound. Objective PHYSICAL EXAM BP 126/74 Pulse 93 Ht 165.1 cm (5' 5 ) Wt 83.1 kg (183 lb 3.2 oz) BMI 30.49 kg/m?? Right knee Inspection Erythema: absent Cellulitis: absent Swelling: mild Surgical scar/wound: present. The surgical scar/wound is healed and no evidence of infection. Gait:normal Palpation Tenderness: present. The tenderness is located in the iliotibial band and medial retinaculum. Range of motion The patient does not have pain with range of motion of the right knee. Active extension: 0 Active flexion: 121-125 Stability The patient has normal AP and ML stability of the right knee. Strength Knee extension: 4/5 Knee flexion: 4/5 Neurovascular The patient has normal vascular on the right side of their body. The patient has normal sensation on the right side of their body. REVIEW OF X-RAYS/STUDIES/LABS XR Knee Right 1 or 2 Views X-rays of the right knee are reviewed and interpreted and demonstrate no acute fractures subluxations or osseous changes. Status post TKA changes noted with implants in acceptable position. Assessment/Plan Gege was seen today for post-op and post-op. Diagnoses and all orders for this visit: Aftercare following right knee joint replacement surgery - XR Knee Right 1 or 2 Views PLAN Discussed with patient. We discussed how weakness is her limiting factor and that this can contribute to her functional instability. She will continue PT 1x weekly for ongoing strengthening/HEP progression. She will follow up in 2-[address] Wright. All questions were answered. Patient expressed full understanding and agreement of plan. ELIZABETH Ray documented in this encounter Plan of Treatment [...] documented in this encounter Visit Diagnoses Diagnosis Aftercare following right knee joint replacement surgery- Primary documented in this encounter Historical Medications * This list may reflect changes made after this encounter. cholecalciferol (VITAMIN D-3) 50,000 unit capsule Take by mouth added in this encounter Care Teams Tile Burner Relationship Specialty Start Date End Date Dominic Fernando MD [address] [facility] [address] [place] [address] PCP - General 08/13/17 documented as of this encounter
--- OUTSIDE RECORDS SUMMARY | 2024-09-04 17:09 | XMS_ITS | Encounter Summary ---
Author Organization [facility] Address [address] [place] [address]. [place], [place] [id number] [place] [address] Care Team Providers Care Whitesmith Name Role Phone Eris Denson MD Primary Care Provider [phone] Reason for Visit * Auth/Cert (Routine) Specialty Diagnoses / Procedures Referred By Evan t Referred To Contact Diagnoses H25.12 Procedures REMV CATARACT EXTRACAP,INSERT LENS LEFT CATARACT REMOVAL WITH IOL IMPLANT Referral ID Status Reason Start Date Expiration Date Visits Re quested Visits Authorized [id number] 1 1 Encounter Details Date Type Department Care Team (Late st Contact Info) Description 06/08/2024 12:35 PM CDT - 06/08/2024 1:11 PM CDT Surgery [facility] [address] [place] [address] Tracee Denson MD [address] [place] [address] LEFT CATARACT REMOVAL WITH IOL IMPLANT Surgery Details Date/Time Status Location OR Service Patient Class Case Class Case Type Trauma Case? 06/08/2024 12:35 PM Posted [facility] OR 1 Ophthalmology Short Stay/Outpat ient Surgery No Panel 1 Procedure LRB Anes Op Region Wound Class Comments LEFT CATARACT REMOVAL WITH IOL IMPLANT Left Monitor Anesthesia Care Eye Clean Surgeon Surgeon Role Service Panel Tracee Denson MD Primary Ophthalmology 1 Special Needs C documented in this encounter Social History Tobacco [...] Ask you doctor. You must have a commercial collections driver for the day of surgery and your 1st post op exam. 11. ALWAYS WERE SUNGLASSES WHEN YOU GO OUTSIDE. These are found in your surgery kit. Dr. Denson OFFICE [phone] AFTER HOURS EMERGENCY [phone] * Attachments The following attachments cannot be sent through Care Everywhere. * Cataract Removal Discharge Instructions (Slovenian) documented in this encounter Medications at Time [...] were discussed with the patient and/or family/personal airline security representative. Questions were answered and the patient/family/personal airline security representative verbalized understanding and desires to proceed. TRACEE DENSON MD documented in this encounter OR Notes * Op Note - Tracee Denson MD - 06/08/2024 11:26 AM CDT [place] OPERATIVE REPORT Date: 06/08/2024 Patient Name: [...] MAR Action Action Date Dose Rate Site apraclonidine (IOPIDINE) 0.5% ophthalmic solution As needed, Starting on Sat06/08/24 at 1101, Until Sat06/08/24 at 1111, Intra-Op Given 06/08/2024 11:01 AM CDT 1 drop besifloxacin (BESIVANCE) 0.6 % ophthalmic suspension 1 drop 1 drop, Left Eye, Every 5 min, 3 doses, First dose on Sat06/08/24 at 1000, Last dose on Sat06/08/24 at 1010 Given 06/08/2024 10:08 AM CDT 1 drop Given 06/08/2024 10:02 AM CDT 1 drop Given 06/08/2024 9:57 AM CDT 1 drop EPINEPHrine 0.3 mg in balanced salts (BSS) irrigation solution As needed, Starting on Sat06/08/24 at 1101, Until Sat06/08/24 at 1111, Intra-Op Given 06/08/2024 11:01 AM CDT 500 mLs lidocaine (PF) (XYLOCAINE) 1 % injection As needed, Starting on Sat06/08/24 at 1100, Until Sat06/08/24 at 1111, Intra-Op Given 06/08/2024 11:00 AM CDT 0.1 mLs Left Eye methazolAMIDE (NEPTAZANE) tablet 50 mg 50 mg, Oral, Once, 1 dose, On Sat06/08/24 at 1000, If NOT allergic to Sulfa, Post-Op Given 06/08/2024 11:17 AM CDT 50 mg moxifloxacin (VIGAMOX) 0.5% ophthalmic solution As needed, Starting on Sat06/08/24 at 1110, Until Sat06/08/24 at 1111, Intra-Op Given 06/08/2024 11:10 AM CDT 1 drop gouimtcu-kbodmmsro-dpxyslloubsf e (MAXITROL) ophthalmic ointment As needed, Starting on Sat06/08/24 at 1101, Until Sat06/08/24 at 1111, Intra-Op Given 06/08/2024 11:01 AM CDT 1 Application povidone-iodine (BETADINE) 5 % ophthalmic solution As needed, Starting on Sat06/08/24 at 1100, Until Sat06/08/24 at 1111, Intra-Op Given 06/08/2024 11:00 AM CDT 1 drop proparacaine (ALCAINE) 0.5 % ophthalmic solution 1 [...] at 1101, Until Sat06/08/24 at 1111, Intra-Op 110 (Given - Provid er: Tracee Denson MD) EPINEPHrine 0.3 mg in balanced salts (BSS) irrigation solution (CANCELED) As needed, Starting on Sat06/08/24 at 1101, Until Sat06/08/24 at 1111, Intra-Op 110 (Given - Provid er: Tracee Denson MD) [...] Denson MD - Comment: verified with surgeon) gkfssunr-nigmrbpht-bxpobfqvbzrax (MAXITROL) ophthalmic ointment (CANCELED) As needed, Starting on Sat06/08/24 at 1101, Until Sat06/08/24 at 1111, Intra-Op 1101 (Given - Provid er: Tracee Denson MD) povidone-iodine (BETADINE) 5 % ophthalmic solution (CANCELED) As needed, Starting on Sat06/08/24 at 1100, Until Sat06/08/24 at 1111, Intra-Op 1100 (Given - Provid er: Ivanna Watkins RN) documented in this encounter Care Teams Whitesmith Relationship Specialty Start Date End Date Eris Denson MD [address] [place] [address] PCP - General FAMILY PRACTICE 06/05/24 documented as of this encounter
--- OUTSIDE RECORDS SUMMARY | 2024-09-04 17:09 | XMS_ITS | Encounter Summary ---
Author Organization [facility] Medical Group Address [address] [place] [address] Care Team Providers Care Ell Teacher Name Role Phone Dominic Fernando MD Primary Care Provider [phone] Reason for Visit * Diagnostic Imaging (Routine) - Closed Specialty Diagnoses / Procedures Referred By Contac t Referred To Contact Diagnoses Aftercare following right knee joint replacement surgery Procedures XR Knee Right 1 or 2 Views Kemal Wright MD Phone: tel: fax: Referral ID Status Reason Start Date Expiration Date Visits Re quested Visits Authorized [id number] Closed 04/01/2019 10/10/2020 1 1 Encounter Details Date Type Department Care Team (Latest Contact Info) Description 04/01/2019 10:42 AM CDT - 04/01/2019 11:59 PM CDT Hospital Encounter [facility] Orthopedics and Sports Medicine [address] [place] [id number] Discharge Disposition: Discharge to home or self [...] on file 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 [address] (PROTONIX) 20 [...] lt documented in this encounter Visit Diagnoses Not on filedocumented in this encounter Care Teams Ell Teacher Relationship Specialty Start Date End Date Dominic Fernando MD [address] [facility] [address] [place] [id number] PCP - General 08/13/17 documented as of this encounter
--- OUTSIDE RECORDS SUMMARY | 2024-09-04 17:09 | XMS_ITS | Encounter Summary ---
Author Organization [facility] Care Team Providers Care Configuration Management Analyst Name Role Phone Dominic Fernando MD Primary Care Provider [phone] Encounter Details Date Type Department Care Team (Latest Contact Info) Description 11/25/2018 Travel Social History Tobacco Use Types Packs/Day Years Used Date Smoking Tobacco: Every Day Cigarettes Smokeless Tobacco: Current Comments:quitting now, 1 pac k last 2-3 days Alcohol Use Standard Drinks/Week Comments No 0 (1 standard drink = 0.6 oz pur e alcohol) Comments No Sex and Gender Information Value Date Recorded Sex Assigned at Not on file 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
--- OUTSIDE RECORDS SUMMARY | 2024-09-04 17:09 | XMS_ITS | Encounter Summary ---
Author Organization [facility] Medical [facility] Address [address] [place] [address] Care Team Providers Care Sandwich Peddler Name Role Phone Dominic Fernando MD Primary Care Provider [phone] Encounter Details Date Type Department Care Team (Late st Contact Info) Description 11/28/2018 Orders Only [facility] Orthopedics and Sports Medicine [address] [facility] [address] [place] [phone] Juanita Mckay PA [address] [place] [address] [address] [place] [address] Status post total knee replacement, unspecified laterality (Primary Dx); Multiple joint pain Social History Tobacco Use Types Packs/Day Years Used Date Smoking Tobacco: Every Day Cigarettes Smokeless Tobacco: Current Comments:quitting now, 1 pac k last 2-3 days Alcohol Use Standard Drinks/Week Comments No 0 (1 standard drink = 0.6 oz pur e alcohol) Comments No Sex and Gender Information Value Date Recorded Sex Assigned at Not on file 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 Riggs for Pain Management. documented in this encounter Plan of Treatment Not on file documented as of this encounter Visit Diagnoses Diagnosis Status post total knee replacement, unspecified laterality- Primary Multiple joint pain Pain in joint, multiple sites documented in this encounter Care Teams Sandwich Peddler Relationship Specialty Start Date End Date Dominic Fernando MD [address] [facility] [address] [facility] [address] [place] [address] PCP - General 08/13/17 documented as of this encounter
--- OUTSIDE RECORDS SUMMARY | 2024-09-04 17:09 | XMS_ITS | Clinical Summary ---
Author Organization [facility] Address [address] [place] [address] Care Team Providers Care Disposal Man Name Role Phone Dominic Fernando MD Primary Care Provider [phone] Allergies Active Allergy Reactions Criticality Noted Date [...] mcg tablet Take 112 mcg by mouth malt roaster before breakfast. 07/21/2018 Active XARELTO 20 mg [...] (09/24/2018): Added automatically from request for surgery [id number] Surgical History Surgery Date Site/Laterality Comments CHOLECYSTECTOMY NECK SURGERY KNEE ARTHROSCOPY ROTATOR CUFF REPAIR CAROTID ENDARTERECTOMY BREAST SURGERY biopsy EYE SURGERY tumors removed TUBAL LIGATION HYSTERECTOMY partial Medical History Medical History Date Comments Stroke (HCC) History of blood clots Poor circulation Thyroid disease Hiatal hernia H/O: hysterectomy Hyperlipidemia Emphysema of lung (HCC) GERD (gastroesophageal reflux disease) Hypothyroidism Cervical cancer (CMS/HCC) (HCC) cervical Family History Medical History Relation Name Comments Diabetes Father Heart disease Father Arthritis Mother Cancer Mother Diabetes Mother Hypertension Mother Clotting disorder Sister Diabetes Sister Diabetes Son Stroke Son Relation Name Status Comments Father Mother Sister Son Social History Tobacco Use Types Packs/Day Years Used Date Smoking Tobacco: Every Day Cigarettes Smokeless Tobacco: Current Comments:quitting now, 1 pac k last 2-3 days Alcohol Use Standard Drinks/Week Comments No 0 (1 standard drink = 0.6 oz pur e alcohol) Comments No Sex and Gender Information Value Date Recorded Sex Assigned at Not on file 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 Female 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 Gender Identity Not on file Sexual Orientation Not on file Obstetrics History Last Filed Vital Signs Vital Sign Reading Time Taken Comments Blood Pressure 98/64 10/02/2019 8:21 AM PUBLIC POLICY ANALYST Pulse 55 10/02/2019 8:21 AM PUBLIC POLICY ANALYST Temperature 37.1 ??C (98.8 ??F) 11/24/2018 12:06 PM C DT Respiratory Rate 16 11/24/2018 12:06 PM CDT Oxygen Saturation 98% 11/24/2018 12:06 PM CDT Inhaled Oxygen Concentration - - Weight 80.4 kg (177 lb 3.2 oz) 10/02/2019 8:21 A M PUBLIC POLICY ANALYST Height 165.1 cm (5' 5 ) 10/02/2019 8:21 AM PUBLIC POLICY ANALYST Body Mass Index 29.49 10/02/2019 8:21 AM PUBLIC POLICY ANALYST Plan of Treatment Not on file Medical Devices Implanted Type Area Senior Contracts Administrator Device Identifier Shelf Expiration Date Model / Serial / Lot [employer] [id number] Legion 9mm Dished Knee 3-4 Insert Tibial Xlpe - [id number] Implanted:Qty: 1 on 11/11/2018 by Kemal Wright MD at [facility] Right: Knee [employer] 08/11/2028 [id number] / / [id number] [employer] tho [id number] 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 Taper Knee Right 4 Baseplate Tibial Titanium - [id number] Implanted:Qty: 1 on 11/11/2018 by Kemal Wright MD at [facility] Right: Knee [employer] 07/18/2028 [id number] / / [id number]- Size 4 Right Cruciate Retaining Legion Oxinium Femoral Componenet Implanted:Qty: 1 on 11/11/2018 by Kemal Wright MD at [facility] Right: Knee [employer] [id number] 01/06/2028 [id number] / / [id number] [employer] [id number] Palacos R+G High Viscosity Cement Bone Gentamicin Arthroplasty - [id number] Implanted:Qty: 1 on 11/11/2018 by Kemal Wright MD at [facility] Right: Knee [employer] 04/15/2021 [id number] / / [id number] Insurance MEDICARE [facility] MEDICARE [facility] Advance Directives For more information, please contact: [phone] * Full Code (Latest Code Status on File) Date Activated Date Inactivated Comments 11/14/2018 1:26 PM 11/15/2018 7:15 PM * Full Code Date Activated Date Inactivated Comments 11/13/2018 10:00 AM 11/14/2018 1:16 PM per patient request * Full Code Date Activated Date Inactivated Comments 11/11/2018 7:40 PM 11/12/2018 8:26 PM Care Teams Disposal Man Relationship Specialty Start Date End Date Dominic Fernando MD [address] [facility] [address] [facility] [address] [place] [address] PCP - General 08/13/17
--- OUTSIDE RECORDS SUMMARY | 2024-09-04 17:09 | XMS_ITS | Encounter Summary ---
Author Organization [facility] Medical [facility] Address [address] [place] [address] Care Team Providers Care Lathe Turner Name Role Phone Dominic Fernando MD Primary Care Provider [phone] Reason for Visit * Reason Comments Post-op Encounter Details Date Type Department Care Team (Late st Contact Info) Description 12/09/2018 10:15 AM CDT Office Visit [facility] [address] [place] [id number] Juanita Mckay PA [address] [facility] [address] [place] [address] Aftercare following right knee joint replacement surgery [...] on file 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 HPI: Patient is 4 weeks s/p right total knee arthroplasty. Pain is not well controlled. Patient is currently taking tylenol/gabapentin for pain. She is currently doing PT 3x weekly. She notes improvement. Referral had been sent to Dr. Riggs, but he is currently out of office and she was told by his staff they only offer CSI and medication management. She does not feel the need to pursue further consultation. Vital signs: Ht 160 cm (5' 3 ) Wt 85.3 kg (188 lb) BMI 33.30 kg/m?? Exam: Well approximated healing post operative scar. No active erythema, draining, or signs of infection present. Neurovascular status is intact. Currently ambulating with a walker No signs of DVT present bilaterally AAROM: -10 -80 Patient able to perform active SLR with mild lag. Assessment: Diagnosis Plan 1. Aftercare following right knee joint replacement surgery Plan: Ongoing post operative expectations reviewed with patient Continue outpatient physical therapy Follow up in 2 weeks time All questions were answered. Patient expressed full understanding and agreement of plan. Juanita Mckay PA-C documented in this encounter Plan of Treatment Not on file documented as of this encounter Visit Diagnoses Diagnosis Aftercare following right knee joint replacement surgery- Primary documented in this encounter Care Teams Lathe Turner Relationship Specialty Start Date End Date Dominic Fernando MD [address] [facility] [address] [place] [address] PCP - General 08/13/17 documented as of this encounter
--- OUTSIDE RECORDS SUMMARY | 2024-09-04 17:09 | XMS_ITS | Encounter Summary ---
Author Organization [facility] Address [address] [place] [address] Care Team Providers Care Lead Case Manager Name Role Phone Dominic Fernando MD Primary Care Provider [phone] Reason for Visit * Reason Onset Date Comments Medical question 11/27/2018 Encounter Details Date Type Department Care Team (Late st Contact Info) Description 11/27/2018 Telephone [facility] Orthopedics and Sports Medicine [address] [place] [address] Kemal Wright MD [address] [place] [address] [address] [place] [address] Medical question Social History Tobacco Use Types Packs/Day Years Used Date Smoking Tobacco: Every Day Cigarettes Smokeless Tobacco: Current Comments:quitting now, 1 pac k last 2-3 days Alcohol Use Standard Drinks/Week Comments No 0 (1 standard drink = 0.6 oz pur e alcohol) Comments No Sex and Gender Information Value Date Recorded Sex Assigned at Not on file 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 147 capsule 11/27/2018 9 promethazine (PHENERGAN) 25 mg tablet Take 1 tablet (25 mg total) by mouth every 6 (six) hours as needed for nausea or vomiting 20 tablet 1 11/27/2018 0 documented in this encounter Miscellaneous Notes * Telephone Encounter - Shruti Mooney MA - 11/28/2018 12:19 PM CDT Faxed order with records and asked for appointment to be made ROD. * Telephone Encounter - Nghia Mckay PA - 11/27/2018 5:06 PM CDT Please do referral for pt to consult with pain management ROD for further options in controlling her post op pain. * Telephone Encounter - Nghia Mckay PA - 11/27/2018 5:05 PM CDT Patient was readmitted for on Q 2 weeks ago @ 3 days post op. Will refer to pain management. * Telephone Encounter - Kemal Wright MD - 11/27/2018 4:51 PM CDT pain management. maybe admit for on Q block * Telephone Encounter - Nghia Mckay PA - 11/27/2018 4:42 PM CDT Pt is not tolerating dilaudid due to nausea/vomiting. Advised her we will try promethazine that may better control these side effects. Also started her on gabapentin today. Risks/benefits/instructions of med reviewed. Please advise of any other suggestions. Thus far she has had intolerance (severe rash) to oxycodone, hydrocodone, tramadol. Documented allergies to codeine, morphine; hydromorphone is causing nausea/vomting. Cannot due NSAIDs secondary to Xa inhibitor Currently taking tylenol 500 mg q 4 hours, using TENS and ice routinely, and lidocaine patches to the sides of her knee (not over incision). Pt in PT 3x weekly; quad has been slow to respond and ROM is stiff as she has limited mobility secondary to pain. * Addendum Note - Nghia Mckay PA - 11/27/2018 2:14 PM CDTAddended by: NGHIA MCKAY on: 11/27/2018 02:14 PM Modules accepted: Orders * Telephone Encounter - Stefani Redding - 11/27/2018 1:20 PM CDT Pt called and stated when she was here for her apt with you on Saturday you discussed her medicationwith her. She said that you were going to talk to Dr. Wright and see what else she would be able to do for the pain since the meds shes on now are making her sick? She would like a call at [phone].Thank you. documented in this encounter Plan of Treatment Not on file documented as of this encounter Visit Diagnoses Not on filedocumented in this encounter Care Teams Lead Case Manager Relationship Specialty Start Date End Date Dominic Fernando MD [address] [facility] [address] [place] [address] PCP - General 08/13/17 documented as of this encounter
--- OUTSIDE RECORDS SUMMARY | 2024-09-04 17:09 | XMS_ITS | Encounter Summary ---
Author Organization [facility] Address [address] [place] [address] Care Team Providers Care Gas Distribution Supervisor Name Role Phone Dominic Fernando MD Primary Care Provider Reason for Referral * Diagnostic Imaging (Routine) - Closed Specialty Diagnoses / Procedures Referred By Contac t Referred To Contact Diagnoses History of total knee arthroplasty, right Procedures XR Knee Right 3 Views Juanita Mckay PA Phone: tel: fax: Referral ID Status Reason Start Date Expiration Date Visits Re quested Visits Authorized [id number] Closed 10/02/2019 04/12/2021 1 1 AL MEDIA STRATEGIST Reason for Visit * Reason Comments Follow-up Encounter Details Date Type Department Care Team (Late st Contact Info) Description 10/02/2019 8:30 AM SOCIAL MEDIA STRATEGIST Office Visit [facility] Orthopedics and Sports Medicine [address] [facility] [address] [place] [address] Juanita Mckay PA [address] [place] [address] [address] [place] [address] Other specified aftercare following surgery (Primary Dx); History of total knee arthroplasty, right; Pes anserinus bursitis of right knee Social History Tobacco Use Types Packs/Day Years Used Date Smoking Tobacco: Every Day Cigarettes Smokeless Tobacco: Current Comments:quitting now, 1 pac k last 2-3 days Alcohol Use Standard Drinks/Week Comments No 0 (1 standard drink = 0.6 oz pur e alcohol) Comments No Sex and Gender Information Value Date Recorded Sex Assigned at Not on file Legal Sex Female 11:26 PM SOCIAL MEDIA 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 Gender Identity Not on file Sexual Orientation Not on file documented as of this encounter Last Filed Vital Signs Vital Sign Reading Time Taken Comments Blood Pressure 98/64 10/02/2019 8:21 AM SOCIAL MEDIA STRATEGIST Pulse 55 10/02/2019 8:21 AM SOCIAL MEDIA STRATEGIST Temperature - - Respiratory Rate - - Oxygen Saturation - - Inhaled Oxygen Concentration - - Weight 80.4 kg (177 lb 3.2 oz) 10/02/2019 8:21 A M SOCIAL MEDIA STRATEGIST Height 165.1 cm (5' 5 ) 10/02/2019 8:21 AM SOCIAL MEDIA STRATEGIST Body Mass Index 29.49 10/02/2019 8:21 AM SOCIAL MEDIA STRATEGIST documented in this encounter Progress Notes * Juanita Mckay, ELIZABETH - 10/02/2019 8:30 AM CST Images from the original note were not included. FOLLOW UP VISIT Subjective CHIEF COMPLAINT She had concerns including Follow-up of the Right Knee. HISTORY OF PRESENT ILLNESS 11 mos s/p right TKA DOS 11/11/18, cemented Islas and Nephew. Last seen in January by Dr. Wright and was advised to continue with PT/HEP, nothing that she still lacked a lot of strength Overall she is doing better. She states she has been regaining her strength; she notes that she still has strength to gain, but she is improving. She is now able to ascent and descend steps, which isalso improving. She notes that overall, she is better than she was prior to surgery. Her complaint today is continued medial pain along the knee, which is worse at night and with direct touch. Pain Assessment Pain Assessment: 0-10 Pain Score: 3 MEDICATIONS She has a current medication list which includes the following prescription(s): atorvastatin, cholecalciferol, cyanocobalamin, doxycycline hyclate, ergocalciferol, folic acid, levothyroxine, metoprolol xl, pantoprazole , and toyin. REVIEW OF SYSTEMS Review of Systems Constitutional: Negative for chills, fatigue and fever. Musculoskeletal: Negative for arthralgias, gait problem, joint swelling and myalgias. Skin: Negative for rash and wound. Objective PHYSICAL EXAM BP 98/64 Pulse 55 Ht 165.1 cm (5' 5 ) Wt 80.4 kg (177 lb 3.2 oz) BMI 29.49 kg/m?? Wt Readings from Last 3 Encounters: 10/02/19 80.4 kg (177 lb 3.2 oz) 04/01/19 81 kg (178 lb 9.6 oz) 02/04/19 83.1 kg (183 lb 3.2 oz) Right knee Inspection Erythema: absent Cellulitis: absent Surgical scar/wound: present. The surgical scar/wound is healed and no evidence of infection. Gait:normal Palpation Tenderness: present. The tenderness is located in the pes anserinus. Range of motion The patient has normal range of motion of the right knee. The patient does not have pain with [...] body. REVIEW OF X-RAYS/STUDIES/LABS XR Knee Right 3 Views X-rays of the right knee are reviewed and interpreted and demonstrate no acute fractures subluxations or osseous changes. Status post TKA changes noted with cemented Islas and Nephew implants in acceptable position. Assessment/Plan Gege was seen today for follow-up. Diagnoses and all orders for this visit: Other specified aftercare following surgery History of total knee arthroplasty, right - XR Knee Right 3 Views Pes anserinus bursitis of right knee PLAN Reviewed Xr with patient. I am encouraged by her progression; she was advised to continue with strengthening exercises. We discussed her medial pain/pes bursitis today. Hamstring stretching and ice massage advised. She declined injection for this today and will return for this, if needed. AAOS handout given to her today. Follow up 1 with XR, sooner if any worsening symptoms or concerns. Questions answered and patient expressed understanding of plan. ELIZABETH Ray AL MEDIA STRATEGIST documented in this encounter Plan of Treatment Not on file documented as of this encounter Procedures Procedure Name Priority Date/Time Associated Diagnosis Comments XR KNEE RIGHT 3 VIEWS Schedule Routine, Read Routine (OP Routine) 10/02/2019 9:06 AM SOCIAL MEDIA STRATEGIST History of total knee arthroplasty, right documented in this encounter Results * XR Knee Right 3 Views (10/02/2019 9:06 AM SOCIAL MEDIA STRATEGIST) Anatomical Region Laterality Modality Lower Extremities, Knee Right Digital Radiography Narrative 10/02/2019 9:06 AM SOCIAL MEDIA STRATEGIST X-rays of the right knee are reviewed and interpreted and demonstrate no acute fractures subluxations or osseous changes. ??Status post TKA changes noted with cemented Islas and Nephew implants in acceptable position. Juanita JOHNSON IMG XR PROCEDURES Final Result documented in this encounter Visit Diagnoses Diagnosis Other specified aftercare following surgery- Primary History of total knee arthroplasty, right Pes anserinus bursitis of right knee documented in this encounter Discontinued Medications Medication Sig Discontinue Reason Start Date End Da te albuterol HFA (VENTOLIN HFA) 90 mcg/actuation inhaler Inhale 2 puffs 2 (two) times a day as needed. Therapy completed 09/30/2018 10/02/2019 celecoxib (CeleBREX) 200 mg capsuleIndications:Post operative Acute Pain,Pain Take 1 capsule (200 mg total) by mouth 2 (two) times a day for 14 days. Therapy completed 11/12/2018 10/02/2019 cetirizine 10 mg capsule Take 10 mg by mouth daily as needed. Therapy completed 10/02/2019 docusate sodium (COLACE) 100 mg capsuleIndications:cons tipation Take 100 mg by mouth daily. 1-3 tabs daily PRN for constipation Indications: constipation Therapy completed 10/02/2019 gabapentin (NEURONTIN) 300 mg capsuleIndications:Post operative Acute Pain Take 1 capsule (300 mg total) by mouth 3 (three) times a day for 7 days Therapy completed 12/24/2018 10/02/2019 NARCAN 4 mg/actuation spray,non-aerosol GLORIA REP ALN Therapy completed 11/25/2018 10/02/2019 ondansetron ODT (ZOFRAN-ODT) 4 mg disintegrating tablet Take 1 tablet (4 mg total) by mouth every 4 (four) hours as needed for nausea or vomiting. Therapy completed 11/13/2018 10/02/2019 promethazine (PHENERGAN) 25 mg tablet Take 1 tablet (25 mg total) by mouth every 6 (six) hours as needed for nausea or vomiting Therapy completed 11/27/2018 10/02/2019 traMADol (ULTRAM) 50 mg tablet Take 1-2 tablets every 6 hours Therapy completed 11/15/2018 10/02/2019 documented as of this encounter Historical Medications * This list may reflect changes made after this encounter. DOXYCYCLINE HYCLATE 100 mg capsule TAKE 1 CAPSULE BY MOUTH TWICE DAILY UNTIL GONE 09/22/2019 metoprolol XL (TOPROL-XL) 50 mg 24 hr tablet Take 50 mg by mouth daily 09/22/2019 added in this encounter Care Teams Gas Distribution Supervisor Relationship Specialty Start Date End Date Dominic Fernando MD [address] [place] [address] PCP - General 08/13/17 documented as of this encounter
--- OUTSIDE RECORDS SUMMARY | 2024-09-04 17:09 | XMS_ITS | Encounter Summary ---
Author Organization [facility] Care Team Providers Care Telescope Repairer Name Role Phone Dominic Fernando MD Primary Care Provider [phone] Encounter Details Date Type Department Care Team (Latest Contact Info) Description 12/09/2018 Travel Social History Tobacco Use Types Packs/Day Years Used Date Smoking Tobacco: Every Day Cigarettes Smokeless Tobacco: Current Comments:quitting now, 1 pac k last 2-3 days Alcohol Use Standard Drinks/Week Comments No 0 (1 standard drink = 0.6 oz pur e alcohol) Comments No Sex and Gender Information Value Date Recorded Sex Assigned at Not on file 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
--- OUTSIDE RECORDS SUMMARY | 2024-09-04 17:09 | XMS_ITS | Encounter Summary ---
Author Organization [facility] Address [address] [place] [address] Care Team Providers Care Tread Booker Name Role Phone Dominic Fernando MD Primary Care Provider [phone] Reason for Referral * Diagnostic Imaging (Routine) - Closed Specialty Diagnoses / Procedures Referred By Evan t Referred To Contact Diagnoses Aftercare following right knee joint replacement surgery Procedures XR Knee Right 3 Views Nghia Mckay PA Phone: tel: fax: Referral ID Status Reason Start Date Expiration Date Visits Re quested Visits Authorized [id number] Closed 11/25/2018 06/05/2020 1 1 Reason for Visit * Reason Comments Post-op Encounter Details Date Type Department Care Team (Late st Contact Info) Description 11/25/2018 9:30 AM CDT Office Visit [facility] Orthopedics and Sports Medicine [address] [address] [facility] [address] [place] [address] Nghia Mckay PA [address] [place] [address] [address] [place] [address] Aftercare following right knee joint replacement surgery [...] on file 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 Gender Identity Not on file Sexual Orientation Not on file documented as of this encounter Last Filed Vital Signs Vital Sign Reading Time Taken Comments Blood Pressure 85/43 11/25/2018 8:54 AM CDT Pulse 97 11/25/2018 8:54 AM CDT Temperature - - Respiratory Rate - - Oxygen Saturation - - Inhaled Oxygen Concentration - - Weight 86.2 kg (190 lb) 11/25/2018 8:54 AM CDT Height 160 cm (5' 3 ) 11/25/2018 8:54 AM CDT Body Mass Index 33.66 11/25/2018 8:54 AM CDT documented in this encounter Ordered Prescriptions Prescription Sig Dispense Quantity Refills Last Filled Start Date End Date HYDROmorphone (DILAUDID) 4 mg tabletIndications: Pain Take 1 tablet (4 mg total) by mouth every 4 (four) hours as needed for pain 23 tablet 11/25/2018 12/24/2018 documented in this encounter Progress Notes * Nghia Mckay PA - 11/25/2018 9:30 AM CDT HPI: Patient is 2 weeks s/p right total knee arthroplasty. Pain is not well controlled. Patient is currently taking tylenol and tramadol for pain. Bowels are moving well. Patient partaking in home physical therapy and has been d/c Pt has had difficult time with pain medications; she has had adverse rxn of rash with attempted norco, percocet, tramadol. She was readmitted for pain at 3 days post op and an On-Q was placed. This helped temporarily, but did decrease her quad recruitment/function. On-Q has since been removed. She is wanting to try other options for pain control today. Vital signs: BP (!) 85/43 Pulse 97 Ht 160 cm (5' 3 ) Wt 86.2 kg (190 lb) BMI 33.66 kg/m?? Exam: Well approximated healing post operative incision.-large joint effusion No active erythema, draining, or signs of infection present. Neurovascular status is intact. Currently ambulating with a walker No signs of DVT present bilaterally AAROM: -10-80 Patient unable to perform active SLR without lag-poor quad recruitment XR results: XR Knee Right 3 Views X-rays of the right knee are reviewed and interpreted and demonstrate no acute fractures subluxations or osseous changes. Status post TKA changes noted with cemented implants in acceptable position. New Medications Ordered This Visit ??? HYDROmorphone (DILAUDID) 4 mg tablet Sig: Take 1 tablet (4 mg total) by mouth every 4 (four) hours as needed for pain Dispense: 23 tablet Refill: 0 Assessment: Diagnosis Plan 1. Aftercare following right knee joint replacement surgery XR Knee Right 3 Views Ambulatory referral order to Physical Therapy - Plan: Xrays, procedure, medications and post operative expectations reviewed with patient Sutures trimmed today Initiate outpatient physical therapy We will try PO dilaudid; she tolerated this ok via IM/IV while inpatient. Small quantity provided today. She will also do tylenol 500 mg q4 hours scheduled. Spent ample time educating her on pain control today. If dilaudid is well tolerated, we will use this intermittently for breakthrough pain. thigh high compression stockings recommended. Follow up in 2 weeks to reassess. All questions were answered. Patient expressed full understanding and agreement of plan. Nghia Mckay PA-C documented in this encounter Miscellaneous Notes * Addendum Note - Nghia Mckay PA - 11/25/2018 9:30 AM CDTAddended by: NGHIA MCKAY on: 11/25/2018 04:01 PM Modules accepted: Orders documented in this encounter Plan of Treatment Not on file documented as of this encounter Procedures Procedure Name Priority Date/Time Associated Diagnosis Comments XR KNEE RIGHT 3 VIEWS Schedule Routine, Read Routine (OP Routine) 11/25/2018 10:22 AM CDT Aftercare following right knee joint replacement surgery documented in this encounter Results * XR Knee Right 3 Views (11/25/2018 10:22 AM CDT) Anatomical Region Laterality Modality Lower Extremities, Knee Right Digital Radiography Narrative 11/25/2018 10:22 AM CDT X-rays of the right knee are reviewed and interpreted and demonstrate no acute fractures subluxations or osseous changes. ??Status post TKA changes noted with cemented implants in acceptable position. Nghia JOHNSON IMG XR PROCEDURES Final Result documented in this encounter Visit Diagnoses Diagnosis Aftercare following right knee joint replacement surgery- Primary documented in this encounter Care Teams Tread Booker Relationship Specialty Start Date End Date Dominic Fernando MD [address] [facility] [address] [place] [address] PCP - General 08/13/17 documented as of this encounter
--- OUTSIDE RECORDS SUMMARY | 2024-09-04 17:09 | XMS_ITS | Encounter Summary ---
Author Organization [facility] Address [address] [place] [address] Care Team Providers Care Reel Fed Printer Name Role Phone Dominic Fernando MD Primary Care Provider Reason for Referral * Diagnostic Imaging (Routine) - Canceled Specialty Diagnoses / Procedures Referred By Evan t Referred To Contact Diagnoses Aftercare following right knee joint replacement surgery Procedures XR Knee Right 1 or 2 Views XR Knee Left 1 or 2 Views Juanita Mckay PA Phone: tel: fax: Referral ID Status Reason Start Date Expiration Date V isits Requested Visits Authorized [id number] Canceled 12/24/2018 07/04/2020 1 1 Reason for Visit * Reason Comments Post-op Encounter Details Date Type Department Care Team (Late st Contact Info) Description 12/24/2018 10:30 AM CDT Office Visit [facility] Orthopedics and Sports Medicine [address] [facility] [address] [place] [address] Juanita Mckay PA [address] [place] [address] [address] [place] [address] Aftercare following right knee joint replacement surgery [...] on file Legal Sex Female 11:26 PM OPERATIONS/DISPATCH Gender Identity Not on file Sexual Orientation Not on file documented as of this encounter Last Filed Vital Signs Vital Sign Reading Time Taken Comments Blood Pressure 134/81 12/24/2018 10:07 AM CDT Pulse 92 12/24/2018 10:07 AM CDT Temperature - - Respiratory Rate - - Oxygen Saturation - - Inhaled Oxygen Concentration - - Weight 86.5 kg (190 lb 12.8 oz) 019 10:07 AM CDT Height 160 cm (5' 3 ) 12/24/2018 10:07 AM CDT Body Mass Index 33.8 12/24/2018 10:07 AM CDT documented in this encounter Patient Instructions * Patient Instructions* Juanita Mckay PA - 12/24/2018 10:30 AM CDT Gabapentin-starting tomorrow, take 300 mg 3x/day x 5 days, then 300 mg 2x/day x 4 days, then 300 mg/day x 4 days. Continue PT. documented in this encounter Ordered Prescriptions Prescription Sig Dispense Quantity Refills Last Filled Start Date End Date gabapentin (NEURONTIN) 300 mg capsuleIndications :Postoperative Acute Pain Take 1 capsule (300 mg total) by mouth 3 (three) times a day for 7 days 21 capsule 12/24/2018 0 documented in this encounter Progress Notes * Juanita Mckay PA - 12/24/2018 10:30 AM CDT Images from the original note were not included. HPI: Patient is 6 weeks s/p right total knee arthroplasty. Pain is better controlled. Patient is currently taking tylenol/gabapentin for pain. She is currently doing PT 3x weekly. She notes improvement. Her progress was discussed with her physical therapist and her range of motion is progressing well. Vital signs: BP 134/81 Pulse 92 Ht 160 cm (5' 3 ) Wt 86.5 kg (190 lb 12.8 oz) BMI 33.80 kg/m?? Exam: Well approximated healing post operative scar. Moderate swelling and effusion No active erythema, draining, or signs of infection present. Neurovascular status is intact. Currently ambulating with a cane No signs of DVT present bilaterally AAROM: -5-110 Patient able to perform active SLR without lag. XR Knee Left 1 or 2 Views X-rays of the right knee are reviewed and interpreted and demonstrate no acute fractures subluxations or osseous changes. Status post TKA changes noted with implants in acceptable position. Assessment: Diagnosis Plan 1. Aftercare following right knee joint replacement surgery XR Knee Left 1 or 2 Views Ambulatory referral order to Physical Therapy - Plan: X-rays and Ongoing post operative expectations reviewed with patient Continue outpatient physical therapy-we will decreased frequency to 2 times weekly Follow up in 6 weeks with repeat x-ray; follow-up sooner if any concerns All questions were answered. Patient expressed full understanding and agreement of plan. Juanita Mckay PA-C documented in this encounter Plan of Treatment Not on file documented as of this encounter Procedures Procedure Name Priority Date/Time Associated Diagnosis Comments XR KNEE RIGHT 1 OR 2 VIEWS Schedule Routine, Read Routine (OP Routine) 12/26/2018 9:13 PM CDT Aftercare following right knee joint replacement surgery documented in this encounter Results * XR Knee Right 1 or 2 Views (12/26/2018 9:13 PM CDT) Anatomical Region Laterality Modality Lower Extremities, Knee Right [facility] Narrative 12/26/2018 9:13 PM CDT X-rays of the right knee are reviewed and interpreted and demonstrate no acute fractures subluxations or osseous changes. ??Status post TKA changes noted with implants in acceptable position. us Juanita JOHNSON IMG XR PROCEDURES Edite d Result - Final documented in this encounter Visit Diagnoses Diagnosis Aftercare following right knee joint replacement surgery- Primary documented in this encounter Discontinued Medications Medication Sig Discontinue Reason Start Date End Da te HYDROmorphone (DILAUDID) 4 mg tabletIndications:Pain Take 1 tablet (4 mg total) by mouth every 4 (four) hours as needed for pain Alternate therapy 11/25/2018 12/24/2018 gabapentin (NEURONTIN) 300 mg capsuleIndications:Post operative Acute Pain Take 1 capsule (300 mg total) by mouth 3 (three) times a day for 7 days, THEN 2 capsules (600 mg total) 3 (three) times a day for 21 days. Reorder 11/27/2018 12/24/2018 documented as of this encounter Care Teams Reel Fed Printer Relationship Specialty Start Date End Date Dominic Fernando MD [address] [facility] [address] [place] [address] PCP - General 08/13/17 documented as of this encounter
--- OUTSIDE RECORDS SUMMARY | 2024-09-04 17:09 | XMS_ITS | Encounter Summary ---
Author Organization [facility] Address [address] [place] [address] Care Team Providers Care Technical Services Manager Name Role Phone Dominic Fernando MD Primary Care Provider [phone] Encounter Details Date Type Department Care Team (Late st Contact Info) Description 12/29/2018 Telephone [facility] Orthopedics and Sports Medicine [address] [facility] [address] [place] [address] Shruti Mooney MA Social History Tobacco Use Types Packs/Day Years Used Date Smoking Tobacco: Every Day Cigarettes Smokeless Tobacco: Current Comments:quitting now, 1 pac k last 2-3 days Alcohol Use Standard Drinks/Week Comments No 0 (1 standard drink = 0.6 oz pur e alcohol) Comments No Sex and Gender Information Value Date Recorded Sex Assigned at Not on file 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 Will call if she has anymore questions. * Telephone Encounter - Teodora Prieto PA - 12/30/2018 2:57 PM CDT Morenita were you able to discuss with patient * Telephone Encounter - Sadia Rodríguez. - 12/30/2018 10:50 AM CDT Pt is calling and is very upset that she just found out yesterday that she received metal instead of ceramic for her knee because a metal detector went off. She is wanting to know why she was told one thing and never told about the metal. She states she has several allergies. She is wanting a call at [phone]. * Telephone Encounter - Shruti Mooney MA - 12/29/2018 4:46 PM CDT Will discuss with you tomorrow. Patient has more questions. * Telephone Encounter - Teodora Prieto PA - 12/29/2018 3:54 PM CDT Patient has the Islas and Nephew Black beauty. What does she obtain MRI's for, as there maybe artifact from her knee. * Telephone Encounter - Shruti Mooney MA - 12/29/2018 2:37 PM CDT Patient called in stating she would like to know what kind of knee she had placed. [place] airport and [place] alarms go off. She states she thought she was getting a ceramic knee? She also stated she gets MRI's like every 6 months and wants to know if she will be able to continue with this. Pleaseadvise? documented in this encounter Plan of Treatment Not on file documented as of this encounter Visit Diagnoses Not on filedocumented in this encounter Care Teams Technical Services Manager Relationship Specialty Start Date End Date Dominic Fernando MD [address] [facility] [address] [place] [address] PCP - General 08/13/17 documented as of this encounter
--- OUTSIDE RECORDS SUMMARY | 2024-09-04 17:09 | XMS_ITS | Encounter Summary ---
Author Organization [facility] Medical [facility] Address [address] [place] [address] Care Team Providers Care Application Architect Name Role Phone Dominic Fernando MD Primary Care Provider Reason for Referral * Diagnostic Imaging (Routine) - Closed Specialty Diagnoses / Procedures Referred By Contac t Referred To Contact Diagnoses Suspected DVT (deep vein thrombosis) Procedures US Vein Duplex Lower Extremity Right Limited Teodora Prieto PA Phone: tel: fax: [facility] Medical [facility] Referral ID Status Reason Start Date Expiration Date Visits Re quested Visits Authorized [id number] Closed 12/01/2018 06/11/2020 1 1 Reason for Visit * Reason Comments Post-op Encounter Details Date Type Department Care Team (Late st Contact Info) Description 12/01/2018 1:45 PM CDT Office Visit [facility] Orthopedics and Sports Medicine [address] [facility] [address] [place] [address] Teodora Prieto PA [address] [place] [address] [address] [place] [address] Suspected DVT (deep vein thrombosis) (Primary Dx) Social History Tobacco Use Types Packs/Day Years Used Date Smoking Tobacco: Every Day Cigarettes Smokeless Tobacco: Current Comments:quitting now, 1 pac k last 2-3 days Alcohol Use Standard Drinks/Week Comments No 0 (1 standard drink = 0.6 oz pur e alcohol) Comments No Sex and Gender Information Value Date Recorded Sex Assigned at Not on file 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 Gender Identity Not on file Sexual Orientation Not on file documented as of this encounter Last Filed Vital Signs Vital Sign Reading Time Taken Comments Blood Pressure 99/67 12/01/2018 1:53 PM CDT Pulse 94 12/01/2018 1:53 PM CDT Temperature - - Respiratory Rate - - Oxygen Saturation - - Inhaled Oxygen Concentration - - Weight 85.5 kg (188 lb 6.4 oz) 12/01/2018 1:53 P M CDT Height 160 cm (5' 3 ) 12/01/2018 1:53 PM CDT Body Mass Index 33.37 12/01/2018 1:53 PM CDT documented in this encounter Progress Notes * Teodora Prieto PA - 12/01/2018 1:45 PM CDT Images from the original note were not included. HISTORY OF PRESENT ILLNESS: Gege Vidal is seen for 3 weeks follow-up of her right total knee arthroplasty. Patient was at PT and therapist called office with concerns of patient having DVT. Patient was asked to come into office for re-evaluation. PHYSICAL EXAM: EFFUSION RIGHT: 2+ INCISION: Healing well with no evidence of infection Passive ROM Right: 10-80 Quad set: Yes Neurologic Exam: Neurologically Intact Gait: antalgic Gait assistance: a walker + HOMANS PLAN: STAT venous doppler ordered and was negative for DVT. Patient advised to ice as needed and continueuse of DONA HOSE. Patient to keep follow up apt with ELIZABETH Branham PA-C documented in this encounter Plan of Treatment Not on file documented as of this encounter Results * US Vein Duplex [...] 1500. Electronically signed by: Giovanni Rodriguez M.D Teodora JOHNSON IMG US PROCEDURES Fi nal Result documented in this encounter Visit Diagnoses Diagnosis Suspected DVT (deep vein thrombosis)- Primary Suspected DVT (deep vein thrombosis) documented in this encounter Historical Medications * This list may reflect changes made after this encounter. NARCAN 4 mg/actuation spray,non-aerosol GLORIA REP ALN 0 11/25/2018 10/02/2019 added in this encounter Care Teams Application Architect Relationship Specialty Start Date End Date Dominic Fernando MD [address] [facility] [address] [place] [address] PCP - General 08/13/17 documented as of this encounter
--- OUTSIDE RECORDS SUMMARY | 2024-09-04 17:09 | XMS_ITS | Encounter Summary ---
Author Organization [facility] Address [address] [place] [address] Care Team Providers Care Combat Control Manager Name Role Phone Dominic Fernando MD Primary Care Provider [phone] Encounter Details Date Type Department Care Team (Late st Contact Info) Description 12/09/2018 Telephone [facility] [address] [facility] Geoffrey Charles [address] [place] [address] Mahesh Riggs MD [address] [place] [address] [address] [place] [address] Social History Tobacco Use Types Packs/Day Years Used Date Smoking Tobacco: Every Day Cigarettes Smokeless Tobacco: Current Comments:quitting now, 1 pac k last 2-3 days Alcohol Use Standard Drinks/Week Comments No 0 (1 standard drink = 0.6 oz pur e alcohol) Comments No Sex and Gender Information Value Date Recorded Sex Assigned at Not on file 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 I explained that anything that Dr Riggs would prescribe she has not tolerated taking. Dr Riggs is out of the office now just having surgery himself. I told her that she could be referred to Dr Urbano Rolon for her pain if she still needed to see pain management, but also explained to her that I was not sure if he would see her since she was still Post Op. documented in this encounter Plan of Treatment Not on file documented as of this encounter Visit Diagnoses Not on filedocumented in this encounter Care Teams Combat Control Manager Relationship Specialty Start Date End Date Dominic Fernando MD [address] [facility] [address] [place], [place] [id number] PCP - General 08/13/17 documented as of this encounter
--- OUTSIDE RECORDS SUMMARY | 2024-09-04 17:09 | XMS_ITS | Encounter Summary ---
Author Organization [facility] Medical [facility] Address [address] [place] [address] Care Team Providers Care Lease Out Worker Name Role Phone Dominic Fernando MD Primary Care Provider [phone] Encounter Details Date Type Department Care Team (Late st Contact Info) Description 01/01/2019 Telephone [facility] Orthopedics and Sports Medicine [address] 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 She stated her doctorwas questioning her low Vitamin D. The labs were faxed to Dr. Fernando. documented in this encounter Plan of Treatment Not on file documented as of this encounter Visit Diagnoses Not on filedocumented in this encounter Care Teams Lease Out Worker Relationship Specialty Start Date End Date Dominic Fernando MD [address] [facility] [address] [place] [address] PCP - General 08/13/17 documented as of this encounter
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
--- OUTSIDE RECORDS SUMMARY | 2024-09-04 17:09 | XMS_ITS | Encounter Summary ---
Author Organization [facility] Care Team Providers Care Yard Warehouse Worker Name Role Phone Dominic Fernando MD Primary Care Provider [phone] Encounter Details Date Type Department Care Team (Latest Contact Info) Description 04/01/2019 Travel Social History Tobacco Use Types Packs/Day Years Used Date Smoking Tobacco: Every Day Cigarettes Smokeless Tobacco: Current Comments:quitting now, 1 pac k last 2-3 days Alcohol Use Standard Drinks/Week Comments No 0 (1 standard drink = 0.6 oz pur e alcohol) Comments No Sex and Gender Information Value Date Recorded Sex Assigned at Not on file 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
--- OUTSIDE RECORDS SUMMARY | 2024-09-04 17:09 | XMS_ITS | Encounter Summary ---
Author Organization [facility] Facility Care Team Providers Care Manager Activities Name Role Phone Dominic Fernando MD Primary Care Provider [phone] Encounter Details Date Type Department Care Team (Latest Contact Info) Description 10/02/2019 Travel Social History Tobacco Use Types Packs/Day Years Used Date Smoking Tobacco: Every Day Cigarettes Smokeless Tobacco: Current Comments:quitting now, 1 pac k last 2-3 days Alcohol Use Standard Drinks/Week Comments No 0 (1 standard drink = 0.6 oz pur e alcohol) Comments No Sex and Gender Information Value Date Recorded Sex Assigned at Not on file 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
--- OUTSIDE RECORDS SUMMARY | 2024-09-04 17:09 | XMS_ITS | Encounter Summary ---
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 I explained to her that I documented in this encounter Plan of Treatment Not on file documented as of this encounter Visit Diagnoses Not on filedocumented in this encounter Care Teams Service Dismantler Relationship Specialty Start Date End Date Dominic Fernando MD [address] [facility] [address] [place] [address] PCP - General 08/13/17 documented as of this encounter
--- OUTSIDE RECORDS SUMMARY | 2024-09-04 17:10 | XMS_ITS | Encounter Summary ---
Author Organization [facility] Healthcare Address [address] [place] [address] Care Team Providers Care Licensing Director Name Role Phone Dominic Fernando MD Primary Care Provider Encounter Details Date Type Department Care Team (Late st Contact Info) Description 11/14/2018 3:00 PM WARRANTY CLERK - 11/14/2018 4:40 PM WARRANTY CLERK Surgery [facility] Operating Room [address] [place] [address] Jose Alfredo Rodríguez MD PhD [address] [place] [id number] PERIPHERAL NERVE BLOCK Surgery Details Date/Time Status Location OR Service Patient Class Case Class Case Type Trauma Case? 11/14/2018 3:00 PM Posted [facility] OPERATING [facility] Pain Management Inpatient Urgent - 3 hours Panel 1 Procedure LRB Anes Op Region Wound Class Comments PERIPHERAL NERVE BLOCK N/A Choice Class I - Clean Surgeon Surgeon Role Service Panel Jose Alfredo Rodríguez MD PhD Primary Pain Managemen t 1 documented in this encounter Social History Tobacco [...] on file Legal Sex Female 11:26 PM WARRANTY CLERK Gender Identity Not on file Sexual Orientation Not on file documented as of this encounter Last Filed Vital Signs Vital Sign Reading Time Taken Comments Blood Pressure 105/53 11/14/2018 3:40 PM WARRANTY CLERK Pulse 70 11/14/2018 3:40 PM WARRANTY CLERK Temperature - - Respiratory Rate 20 11/14/2018 3:05 PM WARRANTY CLERK Oxygen Saturation 95% 11/14/2018 3:40 PM WARRANTY CLERK Inhaled Oxygen Concentration - - Weight - - Height - - Body Mass Index - - documented in this encounter Discharge Summaries * Teodora Prieto PA - 11/15/2018 3:10 PM CST Inpatient Discharge Summary BRIEF OVERVIEW Admitting Provider: Kemal Wright MD Discharge Provider: Kemal Wright MD Primary Care Physician at Discharge: Dominic Fernando MD [phone] Admission Date: 11/14/2018 Discharge Date: 11/15/2018 Admission Location: [facility] Primary Discharge Diagnosis: POD 3 right total knee arthroplasty. Secondary Discharge Diagnosis: No Active Problems: There are no active problems currently on the Problem List. Please update the Problem List and refresh. * No resolved hospital problems. * DETAILS OF HOSPITAL STAY Presenting Problem/History of Present Illness: Today upon exam patient is s/p POD 4 of RTKA. Patient presented to office with increase in post operative pain.Patient was then admitted for pain control. Patient has received femoral nerve block with on q catheter and notes her pain is well controlled. Percocet has been d/c due to allergic response. Patient currently in knee immobilizer. Hospital Course: Patient progressed well over course of stay now found acceptable to be d/c home with home health and home therapy. Active Issues Requiring Follow-up: Post op TKA Test Results Pending at Discharge: Operative Procedures Performed: Procedure(s): PERIPHERAL NERVE BLOCK Other Procedures: Pertinent Test Results: US VEIN DUPLEX LOWER EXTREMITY RIGHT LIMITED ?? HISTORY: Swelling, Lower Extremity, Right. Thrombophlebitis. Knee arthroplasty 11/11/2018 ?? TECHNIQUE: Grayscale and color Doppler imaging. ?? COMPARISON: None available. ?? FINDINGS: The right common and superficial femoral, popliteal, posterior tibial, peroneal and greater saphenous veins are patent. ?? IMPRESSION: NO DEEP VEIN THROMBOSIS IDENTIFIED. Discharge Details Physical Exam at Discharge: Discharge Condition: good Pulse: 66 Resp: 18 BP: 110/54 Temp: 36.5 ??C (97.7 ??F) Weight: Pertinent Exam Findings at Discharge: A&Ox3, NAD, VSS, incision site is clean/dry/intact with no signs of infection. SLR unable. Negative homans sign bilateral, intact pedal pulses and no signs on DVT. 5/5 dorsi and plantar flexion on the operative side. Discharge Disposition: Discharge to home, home health skilled care Code Status at Discharge: full Discharge Instructions: Activity Instructions Discharge Activity: Driving restrictions -Do not drive for 2 weeks or while taking pain medications. Discharge Activity: Walking -You may walk as tolerated with knee immobilizer at all times Discharge activity: Resume normal activity Weight bear as tolerated with walker at all times. Keep current dressing intact for 7 days, remove on day 7 with daily changes there after. May begin to gently clean the incision with soap and water on post op day 7. Discharge activity: Shower -You may shower. No soaking. Other Instructions Call provider for: Temperature -Temperature greater than 101 degrees F Call provider for: persistent nausea or vomiting Call provider for: redness, tenderness, or signs of infection (pain, swelling, redness, odor or green/yellow discharge around incision site) Call provider for: severe uncontrolled pain Discharge Medications: Current Medications TAKE these medications ascorbic acid 500 mg tablet,chewable Commonly known as: VITAMIN C Take 1 tablet/chew tab (500 mg total) by mouth 2 (two) times a day. atorvastatin 40 mg tablet Commonly known as: LIPITOR Take 40 mg by mouth daily. celecoxib 200 mg capsule Commonly known as: CeleBREX Take 1 capsule (200 mg total) by mouth 2 (two) times a day for 14 days. cetirizine 10 mg capsule Take 10 mg by mouth daily as needed. cyanocobalamin 1,000 mcg tablet Commonly known as: Vitamin B-12 Take 1,000 mcg by mouth daily. ergocalciferol 50,000 unit capsule Commonly known as: VITAMIN D Take 1 capsule (50,000 Units total) by mouth once a week. ferrous sulfate 325 mg (65 mg of elemental iron) tablet Take 1 tablet (325 mg total) by mouth daily with breakfast. folic acid 1 mg tablet Commonly known as: FOLVITE Take 1 mg by mouth daily. levothyroxine 112 mcg tablet Commonly known as: SYNTHROID, LEVOTHROID Take 112 mcg by mouth baggagemaster before breakfast. ondansetron ODT 4 mg disintegrating tablet Commonly known as: ZOFRAN-ODT Take 1 tablet (4 mg total) by mouth every 4 (four) hours as needed for nausea or vomiting. pantoprazole DR 20 mg EC tablet Commonly known as: PROTONIX Take 20 mg by mouth daily. traMADol 50 mg tablet Commonly known as: ULTRAM Take 1-2 tablets every 6 hours VENTOLIN HFA 90 mcg/actuation inhaler Generic drug: albuterol HFA Inhale 2 puffs 2 (two) times a day as needed. XARELTO 20 mg tablet Generic drug: rivaroxaban Take 20 mg by mouth daily. Outpatient Follow-Up: Future Appointments Date Time Provider Department Center 11/19/2018 To Be Determined Juan Dorsey PTA [facility] None 11/21/2018 To Be Determined Juan Dorsey PTA [facility] None 11/24/2018 To Be Determined Julee Lundberg, PT [facility] None 11/25/2018 9:30 AM ELIZABETH Ray [facility] Contact Information for Follow-ups Follow-up with provider Next Steps: Follow up Comments: 2 weeks Dominic Fernando MD Specialty: Internal Medicine Relationship: PCP - [facility] [address] [facility] [id number] Next Steps: Follow up Cosigned by Kemal Wright MD at 11/19/2018 9:21 AM WARRANTY CLERK ANTY CLERK ANTY CLERK documented in this encounter Medications at Time of Discharge atorvastatin (LIPITOR) 40 mg tablet Take 40 mg by mouth daily. 10/09/2018 cyanocobalamin (Vitamin B-12) 1,000 mcg tabletIndications:Pr evention of Vitamin B12 Deficiency Take 1,000 mcg by mouth daily. folic acid (FOLVITE) 1 mg tablet Take 1 mg by mouth daily. levothyroxine (SYNTHROID, LEVOTHROID) 112 mcg tablet Take 112 mcg by mouth baggagemaster before breakfast. 07/21/[address] (PROTONIX) 20 mg EC tablet Take 20 mg by mouth daily. 10/09/2018 XARELTO 20 mg tablet Take 20 mg by mouth daily. 06/09/2018 ascorbic acid (VITAMIN C) 500 mg tablet,chewableIndic ations:Vitamin deficiency prevention Take 1 tablet/chew tab (500 mg total) by mouth 2 (two) times a day. 60 tablet/chew tab 11/12/2018 9 ergocalciferol (VITAMIN D) 50,000 unit capsuleIndications:V itamin D Deficiency Take 1 capsule (50,000 Units total) by mouth once a week. 4 capsule 11/07/2018 0 ferrous sulfate 325 mg (65 mg of elemental iron) tabletIndications:Ir on Deficiency Anemia,Anemia prevention Take 1 tablet (325 mg total) by mouth daily with breakfast. 30 tablet 11/13/2018 9 albuterol HFA (VENTOLIN HFA) 90 mcg/actuation inhaler Inhale 2 puffs 2 (two) times a day as needed. 09/30/2018 0 celecoxib (CeleBREX) 200 mg capsuleIndications:P ostoperative Acute Pain,Pain Take 1 capsule (200 mg total) by mouth 2 (two) times a day for 14 days. 28 capsule 11/12/2018 0 cetirizine 10 mg capsule Take 10 mg by mouth daily as needed. 0 ondansetron ODT (ZOFRAN-ODT) 4 mg disintegrating tablet Take 1 tablet (4 mg total) by mouth every 4 (four) hours as needed for nausea or vomiting. 20 tablet 1 11/13/2018 0 traMADol (ULTRAM) 50 mg tablet Take 1-2 tablets every 6 hours 63 tablet 11/15/2018 0 documented as of this encounter Ordered Prescriptions Prescription Sig Dispense Quantity Refills Last Filled Start Date End Date traMADol (ULTRAM) 50 mg tablet Take 1-2 tablets every 6 hours 63 tablet 11/15/2018 0 documented in this encounter Discharge Disposition Disposition Code Departure Means Destination Discharge to home, home health skilled care documented in this encounter Progress Notes * Nithya Castro RN - 11/15/2018 3:00 PM CST IV removed. Discharge instructions explained to patient and her friend. Patient assisted off unit and into private vehicle via staff. Immobilizer in place. ANTY CLERK * Svetlana Chua, PT - 11/15/2018 11:27 AM CST Physical Therapy 11/15/18 1035 General Chart Reviewed Yes Session Type Evaluation PT Received On 11/15/18 Subjective Agreeable to Therapy Subjective Comment pt reports she just threw up Precautions Precautions Fall risk Weight Bearing Restrictions Yes LUE Weight Bearing WBAT Home Living Type of Home House Home Layout One level (bed/bath in basement) Home Access Stairs to enter with rails Entrance Stairs-Rails None Entrance Stairs-Number of Steps 2 Home Mobility Equipment Wheeled walker Prior Function Level of [place] Independent with ADLs;Independent functional transfers;Independent with ambulation Lives With Family (daugther and son in law) Receives Help From Family Driving Yes Current License Yes Vocational/Occupation On disability Pain Assessment Pain Assessment 0-10 Pain Score 3 Pain Location Knee Cognition Overall Cognitive Status WFL Dynamic Sitting Balance Dynamic Sitting-Balance Support No upper extremity supported Dynamic Sitting-Balance Forward lean Dynamic Sitting-Level of Assistance Independent Dynamic Standing Balance Dynamic Standing-Balance Support Right upper extremity supported Dynamic Standing-Balance Reaching for objects Dynamic Standing-Level of Assistance Independent Bed Mobility 1 Bed Mobility From 1 Supine Bed Mobility Type 1 To and from Bed Mobility to 1 Edge of bed Level of Assistance 1 Independent Transfer 1 Transfer From 1 Sit Transfer Type 1 To and from Transfer to 1 Stand Technique 1 Sit to stand Transfer Device 1 Wheeled walker Transfer Level of Assistance 1 Close supervision Ambulation 1 Distance (ft) 1 500ft+500ft Surface 1 Level tile Device 1 Wheeled walker Assistance 1 Close supervision Assessment Potential/Prognosis Good Problem List Decreased mobility;Impaired balance;Decreased strength;Pain Recommendation/Plan PT Recommendation/Plan Home with family;Home Health PT PT Frequency Twice a day;5-7x/wk (PRN Sun) Treatment/Interventions ADLs/ADL retraining;Functional transfer training;LE Strengthening/ROM;Balance Training;Bed mobility;Gait training;Stair Mobility Training PT Evaluation Complete Yes ANTY CLERK * Teodora Prieto PA - 11/15/2018 9:54 AM CST Ortho Hip Knee Daily Progress Subjective Chief complaint of Pain s/p TKA POD 4. Interval History: Today upon exam patient denies SOB N/V fever chills. Patient states her pain is well controlled s/p on Q catheter placement. Patient unable to take percocet due to allergic reaction. Currently pain is controlled with Tramadol 1-2 tab q 6 hours. Objective Vitals: 24hr Min/Max: Temp Min: 36.2 ??C (97.1 ??F) Max: 37.3 ??C (99.2 ??F) Pulse Min: 62 Max: 86 BP Min: 100/48 Max: 130/44 Resp Min: 16 Max: 22 SpO2 Min: 91 % Max: 97 % Most Recent : Vitals: 11/15/18 0700 BP: 110/54 Pulse: 66 Resp: 18 Temp: 36.5 ??C (97.7 ??F) SpO2: 95% I/O last 2 completed shifts: In: 540 [P.O.:540] Out: - I/O this shift: In: 120 [P.O.:120] Out: - Surgical Site 11/11/18 Right Knee (Active) Physical Exam: A&Ox3, NAD, VSS, incision site is clean/dry/intact with no signs of infection. SLR unable. Negative homans sign bilateral, intact pedal pulses and no signs on DVT. 5/5 dorsi and plantar flexion on the operative side. Lab/Radiology/Diagnostic Review: Assessment/Plan Active Problems: No Active Problems: There are no active problems currently on the Problem List. Please update the Problem List and refresh. Plan to d/c patient home today as patient states pain is well controlled with current post operative measures. Patient to continue post operative protocol with pain control and PT. IS encouraged. Patient to wear knee immobilizer at all times while ambulating with walker. ANTY CLERK * Tawana Polo OT - 11/15/2018 9:17 AM CST Occupational Therapy Initial Evaluation 11/15/18 0730 General Chart Reviewed Yes Session Type Evaluation OT Received On 11/14/18 Occupational Therapy-Patient Goal patient states she wants to get back home Precautions (knee immobilizer; WBAT RLE) Precautions Precautions Fall risk Total Knee Replacement Knee immobilizer Weight Bearing Restrictions Yes RLE Weight Bearing WBAT Home Living Type of Home House Home Layout One level;Basement (patient lives in basement ) Home Access Stairs to enter with rails (full flight (12-14 steps) to basement ) Entrance Stairs-Rails None Entrance Stairs-Number of Steps 2 Bathroom Shower/Tub Walk-in shower with threshold Bathroom Toilet Standard Bathroom Equipment Commode;Shower chair Bathroom Accessibility Accessible via walker Home Mobility Equipment Wheeled walker Prior Function Level of [place] Independent with ADLs;Independent functional transfers;Independent with ambulation Lives With Family (son and his family live upstairs) Receives Help From Family (if needed ) Driving Yes Current License Yes Mode of Transportation Car Leisure Hobbies-yes (Comment) (spending time with family ) Feeding Feeding: Where assessed Chair Feeding: Level of assistance Independent Grooming Grooming: Where assessed Standing at sink Grooming: Level of assistance Stand by Grooming: Assistance with Wash/dry hands LE Dressing LE Dressing: Level of assistance Supervision LE Dressing: Assistance with Don/doff L sock (dependent for R sock due to immobilizer) Toileting Toileting: Where assessed Toilet Toileting: Level of assistance Stand by Toileting: Assistance with Clothing management up;Clothing management down;Perineal hygiene Pain Assessment Pain Assessment 0-10 Pain Score 3 Patient's Stated Pain Goal No pain Pain Location Knee Pain Orientation (Right ) Activity Tolerance Endurance Endurance does not limit participation in activity Cognition Overall Cognitive Status WFL Orientation Oriented X4 (person, place, time, situation) Hand Preference Hand Preference Right Hand Function Coordination Functional Bed Mobility Bed Mobility Yes Bed Mobility 1 Bed Mobility From 1 Supine Bed Mobility Type 1 To Bed Mobility to 1 Edge of bed Level of Assistance 1 Independent Transfers Transfer Yes Transfer 1 Transfer From 1 Bed Transfer Type 1 To Transfer to 1 Stand;Chair with arms Technique 1 Sit to stand;Stand to sit Transfer Device 1 Wheeled walker Transfer Level of Assistance 1 Close supervision Transfers 2 Transfer From 2 Stand Transfer Type 2 To and from Transfer to 2 Toilet Technique 2 Sit to stand;Stand to sit Transfer Device 2 Wheeled walker Transfer Level of Assistance 2 Close supervision RUE Assessment RUE Assessment WFL LUE Assessment LUE Assessment WFL Assessment Prognosis Good Problem List Decreased ADLs;Decreased functional mobility Barriers to Discharge None Plan Plan Continue with current plan Recommendation/Plan OT Recommendation Home with family OT Frequency 3-5x/wk Treatment/Interventions ADLs/ADL retraining;Functional transfer training OT Equipment Recommended Shower chair OT Evaluation Complete Yes ANTY CLERK * Faye Levi OT - 11/14/2018 1:40 PM CST Occupational Therapy 11/14/18 1410 General Chart Reviewed Yes OT Missed Visit Reason MD/RN Hold (pt. needs LE dopplers, hold. Per nursing pt. Indep ) ANTY CLERK documented in this encounter H&P Notes * Ever Nino PA - 11/14/2018 2:41 PM CST Images from the original note were not included. CHIEF COMPLAINT She had concerns including Post-op of the Right Knee. ?? HISTORY OF PRESENT ILLNESS 3 days s/p TKA here today with increase swelling in the right leg and uncontrolled pain. She has also broken out in a rash and has stopped celebrex and percocet because of this. ?? Pain Assessment Pain Assessment: 0-10 Pain Score: 10 - Worst possible pain ?? MEDICATIONS She has a current medication list which includes the following prescription(s): albuterol hfa, aspirin, atorvastatin, cetirizine, cyanocobalamin, ergocalciferol, folic acid, levothyroxine, ondansetron odt, oxycodone- acetaminophen, pantoprazole , xarelto, ascorbic acid, celecoxib, and ferrous sulfate, and the following Facility-Administered Medications: acetaminophen, albuterol, atorvastatin, bisacodyl ec, cetirizine, folic acid, levothyroxine, magnesium hydroxide, mineral oil, ondansetron odtOR ondansetron, ondansetron odt, oxycodone er, pantoprazole , polyethylene glycol, rivaroxaban, senna- docusate, sodium chloride 0.9%, sodium chloride 0.9%, and tramadol. ?? REVIEW OF SYSTEMS Review of Systems Constitutional: Negative for chills, fatigue and fever. HENT: Negative for sore throat. Respiratory: Negative for cough and shortness of breath. Cardiovascular: Positive for leg swelling. Negative for chest pain. Gastrointestinal: Positive for nausea. Negative for constipation and vomiting. Musculoskeletal: Positive for arthralgias and joint swelling. Skin: Positive for rash. Neurological: Negative for dizziness, light-headedness and headaches. ? Objective PHYSICAL EXAM Ht 160 cm (5' 3 ) Wt 86.2 kg (190 lb) BMI 33.66 kg/m?? Right knee ?? Inspection Swelling: present Surgical scar/wound: present. The surgical scar/wound is no evidence of infection. Skin temperature: normal Gait: antalgic ?? Palpation Tenderness: present. Neurovascular Dorsalis pedis pulse: 1+ Posterior tibial pulse: 1+ The patient has normal sensation on the right side of their body. ?? Comments: + homans signs with edema noted in the RLE ? REVIEW OF X-RAYS/STUDIES/LABS ? Assessment ?? Assessment/Plan Gege was seen today for post-op. ?? Diagnoses and all orders for this visit: ?? S/P total knee arthroplasty, right ?? Suspected DVT (deep vein thrombosis) ?? Rash and other nonspecific skin eruption ?? Uncontrolled pain ?? PLAN She will be direct admitted to pain control and US. On q block ordered and we will try oral tramadol with tylenol and gabapentin. We will work to get her pain undercontroll and plan to d/c her home when this occurs. ? Cosigned by Kemal Wright MD at 11/16/2018 10:23 AM WARRANTY CLERK ANTY CLERK ANTY CLERK documented in this encounter Miscellaneous Notes * Plan of Care - Nithya Castro RN - 11/15/2018 3:08 PM CST Goals: Clinical Goals for the Shift: pain control, no nausea, stable vitals, steady gait Summary: patients pain well control, no nausea or vomiting since mid am. Vitals stable. Immobilizerin place and patient aware of use. ANTY CLERK * Plan of Care - Tawana Polo OT - 11/15/2018 9:19 AM CST Problem: Dressings Lower Extremities Goal: LTG - Patient will dress lower body Modified independence Outcome: Progressing Problem: Toileting Goal: LTG - Patient will complete toileting tasks With modified independence Outcome: Progressing Problem: Transfers Goal: LTG - Patient will demonstrate safe transfer techniques Modified independence Outcome: Progressing ANTY CLERK * Plan of Care - Jaz Renner RN - 11/14/2018 7:37 PM WARRANTY CLERK Health Behavior: ??? Understanding of discharge needs will improve Progressing Lack of Knowledge: ??? Ability to state ways to decrease the risk of falls will improve Progressing Medication: ??? Satisfaction with pain management regimen will improve Progressing Safety: ??? Will remain free from falls Progressing ??? Will remain free from injury from falls Progressing ??? Will remain free from falls and injury in home environment Progressing Sensory: ??? Ability to identify factors that increase the pain will improve Progressing ??? Pain level will decrease Progressing Goals: Clinical Goals for the Shift: VSS, good intake and output, Pain control, ambualte safely with imbolizer Summary: VSS, pain is becoming more controled with OnQ ball, ambulates well with walker and imbolizer, has good intake and output, no complaints of nausea ANTY CLERK documented in this encounter Plan of Treatment Not on file documented as of this encounter Procedures Procedure Name Priority Date/Time Associated Diagnosis Comments CBC WITHOUT DIFFERENTIAL Routine 11/15/2018 3:14 AM WARRANTY CLERK NEUROLYSIS PERIPHERAL NERVE 11/14/2018 3:00 PM WARRANTY CLERK PAIN US VEIN DUPLEX LOWER EXTREMITY RIGHT LIMITED ED Urgent/IP Urgent 11/14/2018 2:43 PM WARRANTY CLERK documented in this encounter Results * (ABNORMAL) CBC without differential (11/15/2018 3:14 AM WARRANTY CLERK) WBC 6.9 3.8 - 9.9 K/cumm [facility] Hgb 10.0(L) 11.9 - 15.5 g/dL [facility] Hct 30.1(L) 35.6 - 45.5 % [facility] Plt 200 150 - 400 K/cumm [facility] MPV 10.4 9.1 - 12.3 fL [facility] RBC 3.50(L) 3.90 - 5.20 M/cumm [facility] MCV 86.0 81.3 - 96.4 fL [facility] MCH 28.6 27.1 - 33.3 pg [facility] MCHC 33.2 32.3 - 35.7 g/dL [facility] RDW CV 13.4 11.1 - 14.9 % [facility] RDW SD 42.1 35.7 - 48.1 fL [facility] NRBC abs 0.00 0.00 - 0.01 K/cumm [facility] Blood specimen (specimen) 11/15/2018 3:14 AM WARRANTY CLERK 11/15/2018 3:32 AM WARRANTY CLERK Narrative [facility] - 11/15/2018 3:34 AM WARRANTY CLERK us Ever [facility] BLOOD ORDERABLES Final Result [facility] Department of Laboratories [place], [place] [id number] * US Vein Duplex Lower Extremity Right Limited (11/14/2018 2:43 PM WARRANTY CLERK) Anatomical Region Laterality Modality Vascular Right Ultrasound 11/14/2018 2:44 PM WARRANTY CLERK Impressions 11/14/2018 2:45 PM WARRANTY CLERK NO DEEP VEIN THROMBOSIS IDENTIFIED. Electronically signed by: Damian Carrillo M.D. Narrative 11/14/2018 2:45 PM WARRANTY CLERK US VEIN DUPLEX LOWER EXTREMITY RIGHT LIMITED HISTORY: Swelling, Lower Extremity, Right. ??Thrombophlebitis. ??Knee arthroplasty 11/11/2018 TECHNIQUE: Grayscale and color Doppler imaging. COMPARISON: None available. FINDINGS: The right common and superficial femoral, popliteal, posterior tibial, peroneal and greater saphenous veins are patent. Procedure Note Damian Carrillo MD - 11/14/2018 US VEIN DUPLEX LOWER EXTREMITY RIGHT LIMITED HISTORY: Swelling, Lower Extremity, Right. Thrombophlebitis. Knee arthroplasty 11/11/2018 TECHNIQUE: Grayscale and color Doppler imaging. COMPARISON: None available. FINDINGS: The right common and superficial femoral, popliteal, posterior tibial, peroneal and greater saphenous veins are patent. IMPRESSION: NO DEEP VEIN THROMBOSIS IDENTIFIED. Electronically signed by: Damian Carrillo M.D. Kemal Wright MD [facility] PROCEDURES Final Resu lt documented in this encounter Visit Diagnoses Not on filedocumented in this encounter Administered Medications Inactive Administered Medications - up to 3 most recent administrations Medication Order MAR Action Action Date Dose Rate Site acetaminophen (TYLENOL) tablet 1,000 mg 1,000 mg, oral, Every 6 hours scheduled, First dose on Sat11/14/18 at 1800, Indications: Fever, PainIndications:Fever,Pain Given 11/15/2018 1:11 PM WARRANTY CLERK 1,000 mg Given 11/15/2018 5:27 AM WARRANTY CLERK 1,000 mg Given 11/14/2018 11:33 PM WARRANTY CLERK 1,000 mg albuterol (PROVENTIL,VENTOLIN) 2.5 mg /3 mL (0.083 %) nebulizer solution 2.5 mg 2.5 mg, nebulization, 2 times daily PRN (respiratory therapy instructor), wheezing, shortness of breath, Starting on Sat11/14/18 at 1335, This therapy was substituted for albuterol HFA 2 puffs BID PRN per protocol. atorvastatin (LIPITOR) tablet 40 mg 40 mg, oral, Daily, First dose on Sat11/14/18 at 1500 Given 11/15/2018 8:56 AM WARRANTY CLERK 40 mg bupivacaine preservative free 0.125 % in On-Q reservoir 640 ML 6 mL/hr, perineural, Continuous, Starting on Sat11/14/18 at 1545, For 3 days, Pre-Op, Do NOT squeeze the On-Q pump. Make sure tubing clamp is open. If the tubing appears kinked/crimped, massage area of tubing to facilitate flow. Make sure the dressing over the catheter site remains clean and dry. Do NOT remove remove dressing as this may dislodge the catheter. If wound drainage is present and/or dressing is not secure, reinforce and call MD. Do NOT tape over the in-line filter. This can affect flow rate. Do NOT use cold therapy or ice around the infuser. To be started during procedure., Catheter Site: Femoral, Catheter Side: Right, Indications: Postoperative PainIndications:Postoperative Pain New Bag 11/14/2018 3:55 PM WARRANTY CLERK 6 mL/hr 6 mL/hr Right Groin cetirizine (ZyrTEC) tablet 10 mg 10 mg, oral, Daily, First dose on Sat11/14/18 at 1500 Given 11/15/2018 8:56 AM WARRANTY CLERK 10 mg folic acid (FOLVITE) tablet 1 mg 1 mg, oral, Daily, First dose on Sat11/14/18 at 1500 Given 11/15/2018 8:56 AM WARRANTY CLERK 1 mg gabapentin (NEURONTIN) capsule 300 mg 300 mg, oral, 3 times daily, First dose on Sat11/14/18 at 1600 Given 11/15/2018 8:56 AM WARRANTY CLERK 300 mg Given 11/14/2018 8:22 PM WARRANTY CLERK 300 mg HYDROmorphone (DILAUDID) injection 1 mg 1 mg, intramuscular, Administer over 2 Minutes, Once, On Sat11/14/18 at 1445, For 1 dose Given 11/14/2018 2:13 PM WARRANTY CLERK 1 mg Left Anterior Thigh Lactated Ringer's (LR) infusion 30 mL/hr, intravenous, Continuous, Starting on Sat11/14/18 at 1615, Pre-Op New Bag 11/14/2018 2:50 PM WARRANTY CLERK 30 mL/hr 30 mL/hr levothyroxine (SYNTHROID, LEVOTHROID) tablet 112 mcg 112 mcg, oral, Daily (early AM), First dose on Sat11/15/18 at 0600, Administer on an empty stomach, preferably 30 minutes before breakfast. Take 4 hours apart from antacids, iron and calcium products. Given 11/15/2018 5:27 AM WARRANTY CLERK 112 mcg ondansetron (ZOFRAN) injection 4 mg 4 mg, intravenous, Administer over 2 Minutes, Every 4 hours PRN, nausea, vomiting, Starting on Sat11/14/18 at 1358 ondansetron ODT (ZOFRAN-ODT) disintegrating tablet 4 mg 4 mg, oral, Every 4 hours PRN, nausea, vomiting, Starting on Sat11/14/18 at 1320 Given 11/15/2018 10:31 AM WARRANTY CLERK [address] (PROTONIX) extended release tablet 40 mg 40 mg, oral, Daily, First dose on Sat11/14/18 at 1500, This therapy was substituted for pantoprazole 40 mg per protocol due to formulary availability. Do not crush, chew, cut, dissolve, open or otherwise manipulate tablet/capsule., Indications: Treatment of Non-Bleeding Gastric DisorderIndications:Treat ment of Non-Bleeding Gastric Disorder Given 11/15/2018 8:56 AM WARRANTY CLERK 40 mg polyethylene glycol (MIRALAX) packet 17 g 17 g, oral, Daily, First dose on Sat11/15/18 at 0900, Hold for diarrhea., Indications: constipationIndications:c onstipation Given 11/15/2018 8:55 AM WARRANTY CLERK 17 g senna-docusate (PERICOLACE) 8.6-50 mg per tablet 2 tablet 2 tablet, oral, 2 times daily, First dose on Sat11/14/18 at 2100, Hold for diarrhea., Indications: constipationIndications:c onstipation Given 11/15/2018 8:56 AM WARRANTY CLERK 2 tablets Given 11/14/2018 8:22 PM WARRANTY CLERK 2 tablets traMADol (ULTRAM) tablet 100 mg 100 mg, oral, Every 6 hours scheduled, First dose on Sat11/14/18 at 1800, Indications: PainIndications:Pain Given 11/15/2018 1:11 PM WARRANTY CLERK 100 mg Given 11/15/2018 5:28 AM WARRANTY CLERK 100 mg Given 11/14/2018 11:33 PM WARRANTY CLERK 100 mg documented in this encounter Discontinued Medications Medication Sig Discontinue Reason Start Date End Da te aspirin 81 mg tablet Take 81 mg by mouth daily. Stop Taking at Discharge 06/09/2018 11/15/2018 oxyCODONE-acetaminophe n (PERCOCET) 5-325 mg per tabletIndications:Pain Take 1-2 tablets by mouth every 4 (four) hours as needed for pain. Stop Taking at Discharge 11/12/2018 11/15/2018 documented as of this encounter Active and Recently Administered Medications Times are shown in WARRANTY CLERK. Scheduled Medication Order 11/13/2018 11/14/2018 11/15/2018 acetaminophen (TYLENOL) tablet 1,000 mg 1,000 mg, oral, Every 6 hours scheduled, First dose on Sat11/14/18 at 1800, Indications: Fever, Pain 1512 (NOV Hold - Provider: Automatic Transfer Provider - Reason: Patient not available)1624 (NOV Unhold - Provider: Automatic Transfer Provider)1751 (Given - Provider: Jaz Renner, MIKHAIL)2333 (Given - Provider: Madison Fung RN) 0527 (Given - Provider: Ioana Wall RN)1311 (Given - Provider: Nithya Castro, MIKHAIL) atorvastatin (LIPITOR) tablet 40 mg 40 mg, oral, Daily, First dose on Sat11/14/18 at 1500 1512 (NOV Hold - Provider: Automatic Transfer Provider - Reason: Patient not available)1624 ([facility] Unhold - Provider: Automatic Transfer Provider)1735 (Not Given - Provider: Jaz Renner RN - Reason: Contraindicated) 0856 (Given - Provider: Nithya Castro RN) cetirizine (ZyrTEC) tablet 10 mg 10 mg, oral, Daily, First dose on Sat11/14/18 at 1500 1512 ([facility] Hold - Provider: Automatic Transfer Provider - Reason: Patient not available)1624 ([facility] Unhold - Provider: Automatic Transfer Provider)1736 (Not Given - Provider: Jaz Renner RN - Reason: Contraindicated) 0856 (Given - Provider: Nithya Castro, MIKHAIL) folic acid (FOLVITE) tablet 1 mg 1 mg, oral, Daily, First dose on Sat11/14/18 at 1500 1512 ([facility] Hold - Provider: Automatic Transfer Provider - Reason: Patient not available)1624 ([facility] Unhold - Provider: Automatic Transfer Provider)1736 (Not Given - Provider: Jaz Renner RN - Reason: Contraindicated) 0856 (Given - Provider: Nithya Castro RN) gabapentin (NEURONTIN) capsule 300 mg 300 mg, oral, 3 times daily, First dose on Sat11/14/18 at 1600 1512 (NOV Hold - Provider: Automatic Transfer Provider - Reason: Patient not available)1600 (Dose Auto Held - Provider: Automatic Transfer Provider)1624 (MAR Unhold - Provider: Automatic Transfer Provider)202 (Given - Provider: Madison Fung RN) 0856 (Given - Provider: Nithya Castro RN) HYDROmorphone (DILAUDID) injection 0.5 mg 0.5 mg, intravenous, Administer over 2 Minutes, Once, On Sat11/14/18 at 1430, For 1 dose 1512 (MAR Hold - Provider: Automatic Transfer Provider - Reason: Patient not available)1624 (NOV Unhold - Provider: Automatic Transfer Provider)1738 (Not Given - Provider: Jaz Renner RN - Reason: Loss of IV access - Comment: given IM, RN pulled medication under the IV route)173 (Not Given - Provider: Jaz Renner RN - Reason: Loss of IV access - Comment: Givne IM, RN pulled under IV route) HYDROmorphone (DILAUDID) injection 1 mg (COMPLETED) 1 mg, intramuscular, Administer over 2 Minutes, Once, On Sat11/14/18 at 1445, For 1 dose 1413 (Given - Provider: Dede Davis RN) levothyroxine (SYNTHROID, LEVOTHROID) tablet 112 mcg 112 mcg, oral, Daily (early AM), First dose on Sat11/15/18 at 0600, Administer on an empty stomach, preferably 30 minutes before breakfast. Take 4 hours apart from antacids, iron and calcium products. 1512 (NOV Hold - Provider: Automatic Transfer Provider - Reason: Patient not available)1624 (MAR Unhold - Provider: Automatic Transfer Provider) 0527 (Given - Provider: Ioana Wall RN) pantoprazole DR (PROTONIX) extended release tablet 40 mg 40 mg, oral, Daily, First dose on Sat11/14/18 at 1500, This therapy was substituted for pantoprazole 40 mg per protocol due to formulary availability. Do not crush, chew, cut, dissolve, open or otherwise manipulate tablet/capsule., Indications: Treatment of Non-Bleeding Gastric Disorder 1512 ([facility] Hold - Provider: Automatic Transfer Provider - Reason: Patient not available)1624 ([facility] Unhold - Provider: Automatic Transfer Provider)173 (Not Given - Provider: Jaz Renner RN - Reason: Contraindicated) 0856 (Given - Provider: Nithya Castro, RN) polyethylene glycol (MIRALAX) packet 17 g 17 g, oral, Daily, First dose on Sat11/15/18 at 0900, Hold for diarrhea., Indications: constipation 1512 ([facility] Hold - Provider: Automatic Transfer Provider - Reason: Patient not available)1624 ([facility] Unhold - Provider: Automatic Transfer Provider) 0855 (Given - Provider: Nithya Castro, MIKHAIL) rivaroxaban (XARELTO) tablet 20 mg 20 mg, oral, Daily, First dose on Sat11/14/18 at 1800, Administer doses greater than or equal to 15 mg/day with food; doses of 10 mg/day may be administered without regard to meals. If on heparin infusion, discontinue heparin infusion upon first administration of rivaroxaban., Indications: VTE Prophylaxis Following Ortho Surgery 1512 ([facility] Hold - Provider: Automatic Transfer Provider - Reason: Patient not available)1624 ([facility] Unhold - Provider: Automatic Transfer Provider)1747 (Not Given - Provider: Jaz Renner RN - Reason: Contraindicated) senna-docusate (PERICOLACE) 8.6-50 mg per tablet 2 tablet 2 tablet, oral, 2 times daily, First dose on Sat11/14/18 at 2100, Hold for diarrhea., Indications: constipation 1512 ([facility] Hold - Provider: Automatic Transfer Provider - Reason: Patient not available)1624 ([facility] Unhold - Provider: Automatic Transfer Provider)202 (Given - Provider: Madison Fung RN) 0856 (Given - Provider: Nithya Castro RN) traMADol (ULTRAM) tablet 100 mg 100 mg, oral, Every 6 hours scheduled, First dose on Sat11/14/18 at 1800, Indications: Pain 1512 ([facility] Hold - Provider: Automatic Transfer Provider - Reason: Patient not available)1624 ([facility] Unhold - Provider: Automatic Transfer Provider)1751 (Given - Provider: Jaz Renner, MIKHAIL)2333 (Given - Provider: Madison Fung, RN) 0528 (Given - Provider: Ioana Wall, MIKHAIL)1311 (Given - Provider: Nithya Castro, RN) Continuous Medication Order 11/13/2018 11/14/2018 11/15/2018 bupivacaine preservative free 0.125 % in On-Q reservoir 640 ML 6 mL/hr, perineural, Continuous, Starting on Sat11/14/18 at 1545, For 3 days, Pre-Op, Do NOT squeeze the On-Q pump. Make sure tubing clamp is open. If the tubing appears kinked/crimped, massage area of tubing to facilitate flow. Make sure the dressing over the catheter site remains clean and dry. Do NOT remove remove dressing as this may dislodge the catheter. If wound drainage is present and/or dressing is not secure, reinforce and call MD. Do NOT tape over the in-line filter. This can affect flow rate. Do NOT use cold therapy or ice around the infuser. To be started during procedure., Catheter Site: Femoral, Catheter Side: Right, Indications: Postoperative Pain 1555 (New Bag - Provider: Gloria Brennan, MIKHAIL) Lactated Ringer's (LR) infusion 30 mL/hr, intravenous, Continuous, Starting on Sat11/14/18 at 1615, Pre-Op 1450 (New Bag - Provider: Gloria Brennan RN) sodium chloride 0.9% infusion 100 mL/hr, intravenous, Continuous, Starting on Sat11/14/18 at 1400, DISCONTINUE WHEN TOLERATING ORAL FLUIDS 1746 (Not Given - Provider: Jaz Renner RN - Reason: Contraindicated) PRN Medication Order 11/13/2018 11/14/2018 11/15/2018 albuterol (PROVENTIL,VENTOLIN) 2.5 mg /3 mL (0.083 %) nebulizer solution 2.5 mg 2.5 mg, nebulization, 2 times daily PRN (respiratory therapy instructor), wheezing, shortness of breath, Starting on Sat11/14/18 at 1335, This therapy was substituted for albuterol HFA 2 puffs BID PRN per protocol. 1512 (MAR Hold - Provider: Automatic Transfer Provider - Reason: Patient not available)1624 (MAR Unhold - Provider: Automatic Transfer Provider) bisacodyl EC (DULCOLAX EC) tablet 10 mg 10 mg, oral, Daily PRN, constipation, If no results 24 hours after milk of magnesia, Starting on Sat11/14/18 at 1321, Do not crush, chew, cut, dissolve, open or otherwise manipulate tablet/capsule. 1512 ([facility] Hold - Provider: Automatic Transfer Provider - Reason: Patient not available)1624 ([facility] Unhold - Provider: Automatic Transfer Provider) magnesium hydroxide (MILK OF MAGNESIA) 80 mg/mL (33.3 mg/mL as elemental magnesium) oral suspension 30 mL 30 mL, oral, Daily PRN, constipation, Starting on Sat11/14/18 at 1321 1512 ([facility] Hold - Provider: Automatic Transfer Provider - Reason: Patient not available)1624 ([facility] Unhold - Provider: Automatic Transfer Provider) mineral oil (FLEET MINERAL OIL) enema 1 enema 1 enema, rectal, Daily PRN, constipation, if no results 24 hours after bisacodyl, Starting on Sat11/14/18 at 1321, Indications: constipation 1512 ([facility] Hold - Provider: Automatic Transfer Provider - Reason: Patient not available)1624 ([facility] Unhold - Provider: Automatic Transfer Provider) ondansetron (ZOFRAN) injection 4 mg 4 mg, intravenous, Administer over 2 Minutes, Every 4 hours PRN, nausea, vomiting, Starting on Sat11/14/18 at 1358 1512 ([facility] Hold - Provider: Automatic Transfer Provider - Reason: Patient not available)1624 ([facility] Unhold - Provider: Automatic Transfer Provider) ondansetron ODT (ZOFRAN-ODT) disintegrating tablet 4 mg 4 mg, oral, Every 4 hours PRN, nausea, vomiting, Starting on Sat11/14/18 at 1320 1512 ([facility] Hold - Provider: Automatic Transfer Provider - Reason: Patient not available)1624 ([facility] Unhold - Provider: Automatic Transfer Provider) 1031 (Given - Provider: Nithya Castro RN) sodium chloride 0.9% flush 0.5-20 mL 0.5-20 mL, intra-catheter, As needed, line care, Starting on Sat11/14/18 at 1321, Flush volume based on line type and size. Flush before and after each use. , Indications: Flushing 1512 ([facility] Hold - Provider: Automatic Transfer Provider - Reason: Patient not available)1624 (NOV Unhold - Provider: Automatic Transfer Provider) documented in this encounter Orders Medications Ordered That Sandor ht Not Have Been Administered Count Last Ordered Date First Ordered Date albuterol (PROVENTIL,VENTOLI N) 2.5 mg /3 mL (0.083 %) nebulizer solution 2.5 mg 1 11/14/2018 albuterol HFA (PROVENTIL HFA ,VENTOLIN HFA,PROAIR HFA) 90 mcg/actuation inhaler 2 puff 1 11/14/2018 bisacodyl EC (DULCOLAX EC) tablet 10 mg 1 0 11/14/2018 HYDROmorphone (DILAUDID) injection 0.5 mg 1 11/14/2018 magnesium hydroxide (MILK OF MAGNESIA) 80 mg/mL (33.3 mg/mL as elemental magnesium) oral suspension 30 mL 1 11/14/2018 mineral oil (FLEET MINERAL O IL) enema 1 enema 1 11/14/2018 ondansetron (ZOFRAN) injection 4 mg 2 11/14 ondansetron ODT (ZOFRAN-ODT) disintegrating tablet 4 mg 1 11/14/2018 oxyCODONE ER (OxyCONTIN) ext ended release tablet 10 mg 1 11/14/[address] (PROTONIX) e xtended release tablet 20 mg 1 11/14/2018 rivaroxaban (XARELTO) tablet 20 mg 1 2018 sodium chloride 0.9% flush 0.5-20 mL 1 09/2018 sodium chloride 0.9% infusion 1 11/14/2018 Nursing Count Last Ordered Date First Orde red Date DISCHARGE ACTIVITY 4 11/15/2018 DISCHARGE CALL PROVIDER 4 11/15/2018 FOLLOW UP WITH PROVIDER 1 11/15/2018 Admission Count Last Ordered Date First Orde red Date ASSIGN PATIENT STATUS 1 11/14/2018 CORE MEASURES Count Last Ordered Date First Ord ered Date REASON FOR NO VTE PROPHYLAXIS AT ADMISSION 1 11/14/2018 documented in this encounter Care Teams Licensing Director Relationship Specialty Start Date End Date Dominic Fernando MD [address] [facility] [address] [place] [id number] PCP - General 08/13/17 documented as of this encounter
--- OUTSIDE RECORDS SUMMARY | 2024-09-04 17:10 | XMS_ITS | Encounter Summary ---
Author Organization [facility] Address [address] [place] [address] Care Team Providers Care Desktop Support Manager Name Role Phone Dominic Fernando MD Primary Care Provider [phone] Reason for Visit * Reason Comments Post-op Encounter Details Date Type Department Care Team (Late st Contact Info) Description 11/14/2018 1:00 PM CONVERSION WORKER Office Visit [facility] Orthopedics and Sports Medicine [address] [facility] [address] [place] [id number] Ever Nino PA [address] [facility] [address] [place] [address] S/P total knee arthroplasty, right (Primary Dx); Suspected DVT (deep vein thrombosis); Rash and other nonspecific skin eruption; Uncontrolled pain Social History Tobacco Use Types Packs/Day Years Used Date Smoking Tobacco: Every Day Cigarettes Smokeless Tobacco: Current Comments:quitting now, 1 pac k last 2-3 days Alcohol Use Standard Drinks/Week Comments No 0 (1 standard drink = 0.6 oz pur e alcohol) Comments No Sex and Gender Information Value Date Recorded Sex Assigned at Not on file Legal Sex Female 11:26 PM CONVERSION WORKER Gender Identity Not on file Sexual Orientation Not on file documented as of this encounter Last Filed Vital Signs Vital Sign Reading Time Taken Comments Blood Pressure - - Pulse - - Temperature - - Respiratory Rate - - Oxygen Saturation - - Inhaled Oxygen Concentration - - Weight 86.2 kg (190 lb) 11/14/2018 12:41 PM CONVERSION WORKER Height 160 cm (5' 3 ) 11/14/2018 12:41 PM CONVERSION WORKER Body Mass Index 33.66 11/14/2018 12:41 PM CONVERSION WORKER documented in this encounter Progress Notes * Ever Nino PA - 11/14/2018 1:00 PM CST Images from the original note were not included. FOLLOW UP VISIT Subjective CHIEF COMPLAINT She had concerns including Post-op of the Right Knee. HISTORY OF PRESENT ILLNESS 3 days s/p TKA here today with increase swelling in the right leg and uncontrolled pain. She has also broken out in a rash and has stopped celebrex and percocet because of this. Pain Assessment Pain Assessment: 0-10 Pain Score: 10 - Worst possible pain MEDICATIONS She has a current medication list which includes the following prescription(s): albuterol hfa, aspirin, atorvastatin, cetirizine, cyanocobalamin, ergocalciferol, folic acid, levothyroxine, ondansetron odt, oxycodone- acetaminophen, pantoprazole dr, xarelto, ascorbic acid, celecoxib, and ferrous sulfate, and the following Facility-Administered Medications: acetaminophen, albuterol, atorvastatin, bisacodyl ec, cetirizine, folic acid, levothyroxine, magnesium hydroxide, mineral oil, ondansetron odtOR ondansetron, ondansetron odt, oxycodone er, pantoprazole dr, polyethylene glycol, rivaroxaban, senna- docusate, sodium chloride 0.9%, sodium chloride 0.9%, and tramadol. REVIEW OF SYSTEMS Review of Systems Constitutional: Negative for chills, fatigue and fever. HENT: Negative for sore throat. Respiratory: Negative for cough and shortness of breath. Cardiovascular: Positive for leg swelling. Negative for chest pain. Gastrointestinal: Positive for nausea. Negative for constipation and vomiting. Musculoskeletal: Positive for arthralgias and joint swelling. Skin: Positive for rash. Neurological: Negative for dizziness, light-headedness and headaches. Objective PHYSICAL EXAM Ht 160 cm (5' 3 ) Wt 86.2 kg (190 lb) BMI 33.66 kg/m?? Right knee Inspection Swelling: present Surgical scar/wound: present. The surgical scar/wound is no evidence of infection. Skin temperature: normal Gait: antalgic Palpation Tenderness: present. Neurovascular Dorsalis pedis pulse: 1+ Posterior tibial pulse: 1+ The patient has normal sensation on the right side of their body. Comments: + homans signs with edema noted in the RLE REVIEW OF X-RAYS/STUDIES/LABS Assessment/Plan Gege was seen today for post-op. Diagnoses and all orders for this visit: S/P total knee arthroplasty, right - Cancel: US Vein Duplex Lower Extremity Right Limited; Future - Cancel: US Vein Duplex Lower Extremity Right Limited; Future Suspected DVT (deep vein thrombosis) - Cancel: US Vein Duplex Lower Extremity Right Limited; Future - Cancel: US Vein Duplex Lower Extremity Right Limited; Future Rash and other nonspecific skin eruption Uncontrolled pain PLAN She will be direct admitted to pain control and US. On q block ordered and we will try oral tramadol with tylenol and gabapentin. ELIZABETH Ontiveros ERSION WORKER documented in this encounter Plan of Treatment Not on file documented as of this encounter Visit Diagnoses Diagnosis S/P total knee arthroplasty, right- Primary Suspected DVT (deep vein thrombosis) Rash and other nonspecific skin eruption Uncontrolled pain documented in this encounter Care Teams Desktop Support Manager Relationship Specialty Start Date End Date Dominic Fernando MD [address] [facility] [address] [place] [address] PCP - General 08/13/17 documented as of this encounter
--- OUTSIDE RECORDS SUMMARY | 2024-09-04 17:10 | XMS_ITS | Encounter Summary ---
Author Organization [facility] Home Care Servic es Address [address] [place] [address] Phone Care Team Providers Care Biodiesel Process Control Technician Name Role Phone Dominic Fernando MD Primary Care Provider [phone] Reason for Visit * Auth/Cert Specialty Diagnoses / Procedures Referred By Contac t Referred To Contact Referral ID Status Reason Start Date Expiration Date Visits Re quested Visits Authorized [id number] 1 1 Encounter Details Date Type Department Care Team (Late st Contact Info) Description 11/14/2018 10:45 AM CHIROPRACTIC DOCTOR Home Care Visit [facility] [address] [address] [address] [place] [phone] Shagufta Gonzalez RN SN HOME VISIT Social History Tobacco Use Types Packs/Day Years Used Date Smoking Tobacco: Every Day Cigarettes Smokeless Tobacco: Current Comments:quitting now, 1 pac k last 2-3 days Alcohol Use Standard Drinks/Week Comments No 0 (1 standard drink = 0.6 oz pur e alcohol) Comments No Sex and Gender Information Value Date Recorded Sex Assigned at Not on file Legal Sex Female 11:26 PM CHIROPRACTIC DOCTOR Gender Identity Not on file Sexual Orientation Not on file documented as of this encounter Last Filed Vital Signs Vital Sign Reading Time Taken Comments Blood Pressure 100/48 11/14/2018 10:52 AM CHIROPRACTIC DOCTOR Pulse 77 11/14/2018 10:52 AM CHIROPRACTIC DOCTOR Temperature 37.3 ??C (99.2 ??F) 11/14/2018 10:[address] Respiratory Rate 22 11/14/2018 10:52 AM CHIROPRACTIC DOCTOR Oxygen Saturation 91% 11/14/2018 10:52 AM CHIROPRACTIC DOCTOR Inhaled Oxygen Concentration - - Weight - - Height - - Body Mass Index - - documented in this encounter Plan of Treatment Not on file documented as of this encounter Visit Diagnoses Not on filedocumented in this encounter Home Health Visit - Care Plan Visit Details Visit Type -SN Home Visit Discipline -Alf Problems Problem Description Start Date Status Goals Interve ntions Patient/Caregive r Total Joint Education Disciplines: Alf Patient/Carregiver Education re: Total Joint Replacement 11/13/2018 Active - 5 problem interventions scheduled/documented in this visit Physical Discomfort Disciplines: Alf Alteration in comfort 11/13/2018 Active - 1 problem intervention scheduled/documented in this visit Alteration in nutrition Disciplines: Alf Alteration in nutrition 11/13/2018 Active - 1 problem intervention scheduled/documented in this visit Collect Specimen/Lab Draw Disciplines: Alf Management of specimen samples 11/13/2018 Active - 1 problem intervention scheduled/documented in this visit Interventions Intervention Associated Problem/Goal Status Variance Visit Notes Total Joint Education Sheet Description: Instruct patient/caregiver on all aspects of Total Joint Education Sheet 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 May use polar pack up to 60 minutes at a time. Patient to use adequate barrier between ice pack/polar pack pad and monitor skin frequently. 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 Problem:Physical Discomfort Completed patent pain is uncontrolled , patient not receptive to instruction , unable to process information due to pain, call to md Instruct on the prevention of nausea/vomiting Description: Instruct patient/caregiver in methods to prevent and reduce nausea and vomiting . Eating small meals 5-6 times per day and or a [place] diet until nausea resolved. Problem:Alteration in nutrition Completed Lab draw Description: Skilled nurse to obtain CBC per venipuncture on 11/14/18. Fax results to Dr Kemal Wright office Problem:Collect Specimen/Lab Draw Completed skilled nurse used 23 gauge butterfly needle and obtained cbc per venipuncture right AC space on first attempt, pressure applied to area x 2 minutes, no abnormal bleeding or bruising, cbc taken to [facility] documented in this encounter Home Health Visit - Actions and Narratives Actions Call to Dr Wright office an murali spoke with Ever, reported patient pain uncontrolled pain level 7-8/10 at rest and 10/10 with ambulation, increased swelling to right lower leg with pain radiating up thigh, paitent is wearing bilateral maricruz hose, elevating legs and using polar pack with no decrease in swelling. Patient hypotensive, b/p 100/48. Patient has new rash red flat around neck, palms of hands, face, trunk and abdomen , upper back, only took 1 oxycodone/apap last night and 1 this am due to concern allergic reaction. Ever wants to see patient in the office at 1 pm , patient agreed has son to help her in the car , discussed with patient safety climbing the 13 steps to get in to the car . Patient declined assistance or ambulance transport. Skilled nurse dropped of lab at [facility] and then called patient to come back and assist her in the car , patient declined stated she couldnt wait and got in the car with family assist. Patient going to MD appointment for assessment. documented in this encounter Care Teams Biodiesel Process Control Technician Relationship Specialty Start Date End Date Dominic Fernando MD [address] [facility] [address] [place] [address] PCP - General 08/13/17 documented as of this encounter
--- OUTSIDE RECORDS SUMMARY | 2024-09-04 17:10 | XMS_ITS | Encounter Summary ---
Author Organization [facility] Home Care Servic es Address [address] [place] [address] Phone Care Team Providers Care Thermoscrew Operator Name Role Phone Dominic Fernando MD Primary Care Provider [phone] Reason for Visit * Auth/Cert Specialty Diagnoses / Procedures Referred By Contac t Referred To Contact Referral ID Status Reason Start Date Expiration Date Visits Re quested Visits Authorized [id number] 1 1 Encounter Details Date Type Department Care Team (Late st Contact Info) Description 11/18/2018 3:00 PM ADMINISTRATION PHYSICIAN Home Care Visit [facility] Home Health - [address] [address] [address] [place] [address] Shagufta Gonzalez RN SN DISCIPLINE DISCHARGE Social History Tobacco Use Types Packs/Day Years Used Date Smoking Tobacco: Every Day Cigarettes Smokeless Tobacco: Current Comments:quitting now, 1 pac k last 2-3 days Alcohol Use Standard Drinks/Week Comments No 0 (1 standard drink = 0.6 oz pur e alcohol) Comments No Sex and Gender Information Value Date Recorded Sex Assigned at Not on file Legal Sex Female 11:26 PM ADMINISTRATION PHYSICIAN Gender Identity Not on file Sexual Orientation Not on file documented as of this encounter Plan of Treatment Not on file documented as of this encounter Visit Diagnoses Not on filedocumented in this encounter Care Teams Thermoscrew Operator Relationship Specialty Start Date End Date Dominic Fernando MD [address] [place] [place] [address] PCP - General 08/13/17 documented as of this encounter
--- OUTSIDE RECORDS SUMMARY | 2024-09-04 17:10 | XMS_ITS | Encounter Summary ---
Author Organization [facility] Medical [facility] Address [address] [place] [id number] Care Team Providers Care Coordinator Cardiopulmonary Services Name Role Phone Dominic Fernando MD Primary Care Provider [phone] Encounter Details Date Type Department Care Team (Late st Contact Info) Description 11/17/2018 Telephone [facility] Medical [facility] Orthopedics and Sports Medicine [address] [place] [address] Ever Nino PA [address] [place] [address] [facility] [address], [place] [address] Social History Tobacco Use Types Packs/Day Years Used Date Smoking Tobacco: Every Day Cigarettes Smokeless Tobacco: Current Comments:quitting now, 1 pac k last 2-3 days Alcohol Use Standard Drinks/Week Comments No 0 (1 standard drink = 0.6 oz pur e alcohol) Comments No Sex and Gender Information Value Date Recorded Sex Assigned at Not on file Legal Sex Female 11:26 PM TECHNICIAN'S HELPER Gender Identity Not on file Sexual Orientation Not on file documented as of this encounter Miscellaneous Notes * Telephone Encounter - Allison Rodney MA - 11/17/2018 1:46 PM CST Called and spoke with patient, she states she's doing better, states therapist is coming out to start therapy and remove her on q block. Asked her how the tramadol and tylenol was working and she said she's making it work. Told her to call if she had any questions or concerns. NICIAN'S HELPER * Telephone Encounter - Ever Nino PA - 11/17/2018 1:10 PM TECHNICIAN'S HELPER please krish pt and see how she is doing NICIAN'S HELPER documented in this encounter Plan of Treatment Not on file documented as of this encounter Visit Diagnoses Not on filedocumented in this encounter Care Teams Coordinator Cardiopulmonary Services Relationship Specialty Start Date End Date Dominic Fernando MD [address] [facility] [address] [place] [address] [place] [address] PCP - General 08/13/17 documented as of this encounter
--- OUTSIDE RECORDS SUMMARY | 2024-09-04 17:10 | XMS_ITS | Encounter Summary ---
Author Organization [facility] Home Care Servic es Address [address] [place] [address] Phone Care Team Providers Care Silk Worker Name Role Phone Dominic Fernando MD Primary Care Provider [phone] Reason for Visit * Auth/Cert Specialty Diagnoses / Procedures Referred By Contac t Referred To Contact Referral ID Status Reason Start Date Expiration Date Visits Re quested Visits Authorized [id number] 1 1 Encounter Details Date Type Department Care Team (Late st Contact Info) Description 11/21/2018 1:00 PM SETTLEMENT PROCESSOR Home Care Visit [facility] Health [address] [address] [address] [place] [phone] Zakia Fuchs PTA PT HOME VISIT Social History Tobacco Use Types Packs/Day Years Used Date Smoking Tobacco: Every Day Cigarettes Smokeless Tobacco: Current Comments:quitting now, 1 pac k last 2-3 days Alcohol Use Standard Drinks/Week Comments No 0 (1 standard drink = 0.6 oz pur e alcohol) Comments No Sex and Gender Information Value Date Recorded Sex Assigned at Not on file Legal Sex Female 11:26 PM SETTLEMENT PROCESSOR Gender Identity Not on file Sexual Orientation Not on file documented as of this encounter Last Filed Vital Signs Vital Sign Reading Time Taken Comments Blood Pressure 124/68 11/21/2018 12:59 PM SETTLEMENT PROCESSOR Pulse 72 11/21/2018 12:59 PM SETTLEMENT PROCESSOR Temperature 36.7 ??C (98.1 ??F) 11/21/2018 12:[address] Respiratory Rate 16 11/21/2018 12:59 PM SETTLEMENT PROCESSOR Oxygen Saturation 95% 11/21/2018 12:59 PM SETTLEMENT PROCESSOR Inhaled Oxygen Concentration - - Weight - - Height - - Body Mass Index - - documented in this encounter Plan of Treatment Not on file documented as of this encounter Visit Diagnoses Not on filedocumented in this encounter Home Health Visit - Care Plan Visit Details Visit Type -PT Home Visit Discipline -Physical Therapy Problems Problem Description Start Date Status Goals Interve ntions PT Orthopedic-Total Joint Replacement Disciplines: Physical Therapy Total Joint Replacement of R knee 11/17/2018 Active - 5 problem interventions scheduled/documented in this visit Interventions Intervention Associated Problem/Goal Status Variance Visit Notes Home Exercise Program (HEP) Description: Instruct patient/caregiver and perform HEP. Problem:PT Orthopedic-Total Joint Replacement Completed Instr to cont to do ther ex 10-15 reps 2-3x/day using TENS in conjunction w/activity for pn control. Instr to cont to prop ankle to promote exten and dangle EOB for promoting flexion. Gait/Stair Training Description: Instruct patient/caregiver and perform gait/stair training. Problem:PT Orthopedic-Total Joint Replacement Completed Gt w/w 80ft x1 45ft x1 SBA vc's given for improving toe pushoff and heelstrike. Gt improved, increase in knee/hip flexion and increase wb onto R. Instr to amb more during day increasing wt shift onto R. Bed Mobility/Transfer Training Description: Instruct patient/caregiver and perform bed mobility/transfer training. Problem:PT Orthopedic-Total Joint Replacement Completed Instr on using hip flexors to assist w/lifting RLE in/out of bed. Min A required lifting onto bed. Modified indep sit<>stand pushing up w/BUE's. Therapeutic Exercise Description: Perform therapeutic exercise, progressing as tolerated. Problem:PT Orthopedic-Total Joint Replacement Completed Performed sitting knee flex, LAQ w/min A and hip flexion 10 reps.; supine ap, qs, gs, hip abduc, heelslides, SAQ w/min A and SLR w/min A 10 reps. Pt melba ther ex better this date wearing TENS during session. Supine AROM -4 exten, 90 flexion Use TENS therapy Description: 30 min 2 x day PRN Problem:PT Orthopedic-Total Joint Replacement Completed Used TENS unit aditi cross pattern surrounding jt line during ex's. documented in this encounter Home Health Visit - Actions and Narratives Narratives Pt melba session better this d ate, improved pn control using TENS. Increase AROM in supine and sitting, quad contraction improved, able to initate lifting heel off floor w/LAQ, from bed SAQ. Increase knee flex/exten during swing phase of gt. Discussed discharge plans at next visit and cont PT on OP basis after MD appt. Pt agrees to current POC and discharge. documented in this encounter Care Teams Silk Worker Relationship Specialty Start Date End Date Dominic Fernando MD [address] [facility] [address] [facility] [address] [place] [id number] PCP - General 08/13/17 documented as of this encounter
--- OUTSIDE RECORDS SUMMARY | 2024-09-04 17:10 | XMS_ITS | Encounter Summary ---
Author Organization [facility] Home Care Servic es Address [address] [place] [address] Phone Care Team Providers Care Ballistics Laboratory Gunsmith Name Role Phone Dominic Fernando MD Primary Care Provider [phone] Reason for Visit * Auth/Cert Specialty Diagnoses / Procedures Referred By Contac t Referred To Contact Referral ID Status Reason Start Date Expiration Date Visits Re quested Visits Authorized [id number] 1 1 Encounter Details Date Type Department Care Team (Late st Contact Info) Description 11/14/2018 Home Care Visit [facility] [address] [facility] [address] [place] [address] Bekah Carrera, PT CASE COMMUNICATION Social History Tobacco Use Types Packs/Day Years Used Date Smoking Tobacco: Every Day Cigarettes Smokeless Tobacco: Current Comments:quitting now, 1 pac k last 2-3 days Alcohol Use Standard Drinks/Week Comments No 0 (1 standard drink = 0.6 oz pur e alcohol) Comments No Sex and Gender Information Value Date Recorded Sex Assigned at Not on file Legal Sex Female 11:26 PM TARIFF COMPILER Gender Identity Not on file Sexual Orientation Not on file documented as of this encounter Plan of Treatment Not on file documented as of this encounter Visit Diagnoses Not on filedocumented in this encounter Care Teams Ballistics Laboratory Gunsmith Relationship Specialty Start Date End Date Dominic Fernando MD [address] [place] [address] PCP - General 08/13/17 documented as of this encounter
--- OUTSIDE RECORDS SUMMARY | 2024-09-04 17:10 | XMS_ITS | Encounter Summary ---
Author Organization [facility] Home Care Serv[facility] es Address [address] [place] [address] Phone Care Team Providers Care Coding Director Name Role Phone Dominic Fernando MD Primary Care Provider [phone] Reason for Visit * Auth/Cert Specialty Diagnoses / Procedures Referred By Contac t Referred To Contact Referral ID Status Reason Start Date Expiration Date Visits Re quested Visits Authorized [id number] 1 1 Encounter Details Date Type Department Care Team (Late st Contact Info) Description 11/19/2018 12:30 PM TELEPHONE OPERATOR Home Care Visit [facility] Health [address] [address] [address] [place] [phone] Zakia Fuchs PTA PT HOME VISIT Social [...] on file Legal Sex Female 11:26 PM TELEPHONE OPERATOR Gender Identity Not on file Sexual Orientation Not on file documented as of this encounter Last Filed Vital Signs Vital Sign Reading Time Taken Comments Blood Pressure 120/70 11/19/2018 12:18 PM TELEPHONE OPERATOR Pulse 64 11/19/2018 12:18 PM TELEPHONE OPERATOR Temperature 36.6 ??C (97.8 ??F) 11/19/2018 12:[address] Respiratory Rate 16 11/19/2018 12:18 PM TELEPHONE OPERATOR Oxygen Saturation 96% 11/19/2018 12:18 PM TELEPHONE OPERATOR Inhaled Oxygen Concentration - - Weight - [...] HEP. Problem:PT Orthopedic-Total Joint Replacement Completed Instr on purpose, technic, frequency and reps, elevation and use of polar pac after ther ex. Gait/Stair Training Description: Instruct patient/caregiver and perform gait/stair training. Problem:PT Orthopedic-Total Joint Replacement Completed Gt w/2ww, SBA w/moderate vc's on proper heel/toe gt pattern 35ft x2; gt deviations decrease wb RLE, decrease knee flex/exten, decrease stride L using step to gt pattern. Moderate cues needed to decrease step length R and increase L. Pt is placing heel on floor on heelstrike. Bed Mobility/Transfer Training Description: Instruct patient/caregiver and perform bed mobility/transfer training. Problem:PT Orthopedic-Total Joint Replacement Completed Using opposite leg to assist RLE on/off bed. Extends knee w/sit to stand. Declined performing step in shower transfer, states has shower bench and dtr will assist. Therapeutic Exercise Description: Perform therapeutic exercise, progressing as tolerated. Problem:PT Orthopedic-Total Joint Replacement Completed Instr w/verbal and manual cues for proper technic, mod A required for LAQ and SLR. Performed qs, heelslides and hip abduc supine 10 reps.; sitting heelslides and LAQ 10 reps. Pt has poor pn tolerance, declined doing saq. Reinstr on proper elevation for edema and use of polar pac after ther ex. Use TENS therapy Description: 30 min 2 x day PRN Problem:PT Orthopedic-Total Joint Replacement Completed Reeducated on proper use of TENS and EMS. Instr to use EMS during ex's, qs, saq and laq. documented in this encounter Home Health Visit - Actions and Narratives Narratives Pt reports unable to control pn, tramadol is not helping . Pt is sleeping in recliner, elevating w/ft rest up only. Cried several times during session due to pn level. Frequent rest breaks needed between ex's due to pn level. Mod A needed w/SLR and LAQ w/minimal range. Pt has used TENS/EMS unit only 1x since last PT visit. Encouraged to use 2-3x/day, TENS surrounding knee for pn control. Pt agrees to current POC progressing as melba. documented in this encounter Care Teams Coding Director Relationship Specialty Start Date End Date Dominic Fernando MD [address] [place], [place] [id number] PCP - General 08/13/17 documented as of this encounter
--- OUTSIDE RECORDS SUMMARY | 2024-09-04 17:10 | XMS_ITS | Encounter Summary ---
Author Organization [facility] Healthcare Address [address] [place] [address] Care Team Providers Care Travel Agency Manager Name Role Phone Dominic Fernando MD Primary Care Provider [phone] Encounter Details Date Type Department Care Team (Latest Contact Info) Description 11/14/2018 1:20 PM INSTRUCTIONAL COORDINATOR - 11/15/2018 3:10 PM INSTRUCTIONAL COORDINATOR Hospital Encounter [facility] [address] [place] [address] Kemal Wright MD [address] [place] [address] [address] [facility] [address] [place] [address] Discharge Disposition: Discharge to home, home health skilled care Social History Tobacco Use Types Packs/Day Years Used Date Smoking Tobacco: Every Day Cigarettes Smokeless Tobacco: Current Comments:quitting now, 1 pac k last 2-3 days Alcohol Use Standard Drinks/Week Comments No 0 (1 standard drink = 0.6 oz pur e alcohol) Comments No Sex and Gender Information Value Date Recorded Sex Assigned at Not on file Legal Sex Female 11:26 PM INSTRUCTIONAL COORDINATOR Gender Identity Not on file Sexual Orientation Not on file documented as of this encounter Last Filed Vital Signs Vital Sign Reading Time Taken Comments Blood Pressure 110/54 11/15/2018 7:00 AM INSTRUCTIONAL COORDINATOR Pulse 66 11/15/2018 7:00 AM INSTRUCTIONAL COORDINATOR Temperature 36.5 ??C (97.7 ??F) 11/15/2018 7:00 AM CS T Respiratory Rate 18 11/15/2018 7:00 AM INSTRUCTIONAL COORDINATOR Oxygen Saturation 95% 11/15/2018 7:00 AM INSTRUCTIONAL COORDINATOR Inhaled Oxygen Concentration - - Weight - - Height - - Body Mass Index - - documented in this encounter Discharge Summaries * Teodora Prieto PA - 11/15/2018 3:10 PM CST Inpatient Discharge Summary BRIEF OVERVIEW Admitting Provider: Kemal Wright MD Discharge Provider: Kemal Wright MD Primary Care Physician at Discharge: Dominic Fernando MD [phone] Admission Date: 11/14/2018 Discharge Date: 11/15/2018 Admission Location: [facility] Primary Discharge Diagnosis: POD 3 right total [...] SYNTHROID, LEVOTHROID Take 112 mcg by mouth early morning babysitter before breakfast. ondansetron ODT 4 mg disintegrating [...] 11/19/2018 To Be Determined Juan Dorsey PTA [facility] None 11/21/2018 To Be Determined Juan Dorsey PTA [facility] None 11/24/2018 To Be Determined Julee Lundberg, PT [facility] None 11/25/2018 9:30 AM [facility] Contact Information for Follow-ups Follow-up with provider Next Steps: Follow up Comments: 2 weeks Dominic Fernando MD Specialty: Internal Medicine Relationship: PCP - [facility] [address] [place] [address] Next Steps: Follow up Cosigned by Kemal Wright MD at 11/19/2018 9:21 AM INSTRUCTIONAL COORDINATOR RUCTIONAL COORDINATOR RUCTIONAL COORDINATOR documented in this encounter Medications at Time of Discharge atorvastatin (LIPITOR) 40 mg tablet Take 40 mg by mouth daily. 10/09/2018 cyanocobalamin (Vitamin B-12) 1,000 mcg tabletIndications:Pr evention of Vitamin B12 Deficiency Take 1,000 mcg by mouth daily. folic acid (FOLVITE) 1 mg tablet Take 1 mg by mouth daily. levothyroxine (SYNTHROID, LEVOTHROID) 112 mcg tablet Take 112 mcg by mouth early morning babysitter before breakfast. 07/21/[address] (PROTONIX) 20 [...] private vehicle via staff. Immobilizer in place. RUCTIONAL COORDINATOR * Svetlana Chau, PT - 11/15/2018 11:27 AM CST Physical [...] Equipment Wheeled walker Prior Function Level of [place] Independent with ADLs;Independent functional transfers;Independent with ambulation [...] training;Stair Mobility Training PT Evaluation Complete Yes RUCTIONAL COORDINATOR * Teodora Prieto PA - 11/15/2018 9:54 [...] at all times while ambulating with walker. RUCTIONAL COORDINATOR * Tawana Polo OT - 11/15/2018 9:17 [...] Equipment Wheeled walker Prior Function Level of [place] Independent with ADLs;Independent functional transfers;Independent with ambulation [...] Recommended Shower chair OT Evaluation Complete Yes RUCTIONAL COORDINATOR * Faye Levi OT - 11/14/2018 1:40 PM CST Occupational Therapy 11/14/18 7509 General Chart Reviewed Yes OT Missed Visit Reason MD/RN Hold (pt. needs LE dopplers, hold. Per nursing pt. Indep ) RUCTIONAL COORDINATOR documented in this encounter H&P Notes * [...] Kemal Wright MD at 11/16/2018 10:23 AM INSTRUCTIONAL COORDINATOR RUCTIONAL COORDINATOR RUCTIONAL COORDINATOR documented in this encounter Miscellaneous Notes * Plan of Care - Nithya Castro RN - 11/15/2018 3:08 PM CST Goals: Clinical Goals for the Shift: pain control, no nausea, stable vitals, steady gait Summary: patients pain well control, no nausea or vomiting since mid am. Vitals stable. Immobilizerin place and patient aware of use. RUCTIONAL COORDINATOR * Plan of Care - Tawana Polo OT - 11/15/2018 9:19 AM CST Problem: Dressings Lower Extremities Goal: LTG - Patient will dress lower body Modified independence Outcome: Progressing Problem: Toileting Goal: LTG - Patient will complete toileting tasks With modified independence Outcome: Progressing Problem: Transfers Goal: LTG - Patient will demonstrate safe transfer techniques Modified independence Outcome: Progressing RUCTIONAL COORDINATOR * Plan of Care - Jaz Renner RN - 11/14/2018 7:37 PM INSTRUCTIONAL COORDINATOR Health Behavior: ??? Understanding of discharge needs [...] intake and output, no complaints of nausea RUCTIONAL COORDINATOR documented in this encounter Plan of Treatment Not on file documented as of this encounter Procedures Procedure Name Priority Date/Time Associated Diagnosis Comments CBC WITHOUT DIFFERENTIAL Routine 11/15/2018 3:14 AM INSTRUCTIONAL COORDINATOR NEUROLYSIS PERIPHERAL NERVE 11/14/2018 3:00 PM INSTRUCTIONAL COORDINATOR PAIN US VEIN DUPLEX LOWER EXTREMITY RIGHT LIMITED ED Urgent/IP Urgent 11/14/2018 2:43 PM INSTRUCTIONAL COORDINATOR documented in this encounter Results * (ABNORMAL) CBC without differential (11/15/2018 3:14 AM INSTRUCTIONAL COORDINATOR) WBC 6.9 3.8 - 9.9 K/cumm [facility] [...] ([facility]) MCH 28.6 27.1 - 33.3 pg [facility] ([facility]) MCHC 33.2 32.3 - 35.7 g/dL [facility] ([facility] RDW CV 13.4 11.1 - 14.9 % [facility] ([facility] RDW SD 42.1 35.7 - 48.1 fL [facility] ([facility] NRBC abs 0.00 0.00 - 0.01 K/cumm [facility] Blood specimen (specimen) 11/15/2018 3:14 AM INSTRUCTIONAL COORDINATOR 11/15/2018 3:32 AM INSTRUCTIONAL COORDINATOR Narrative [facility] - 11/15/2018 3:34 AM INSTRUCTIONAL COORDINATOR us Ever [facility] BLOOD ORDERABLES Final Result [facility] ([facility]) 1 [facility] Department [place] [address] * US Vein Duplex Lower Extremity Right Limited (11/14/2018 2:43 PM INSTRUCTIONAL COORDINATOR) Anatomical Region Laterality Modality Vascular Right Ultrasound 11/14/2018 2:44 PM INSTRUCTIONAL COORDINATOR Impressions 11/14/2018 2:45 PM INSTRUCTIONAL COORDINATOR NO DEEP VEIN THROMBOSIS IDENTIFIED. Electronically signed by: Damian Carrillo M.D. Narrative 11/14/2018 2:45 PM INSTRUCTIONAL COORDINATOR US VEIN DUPLEX LOWER EXTREMITY RIGHT LIMITED [...] by: Damian Carrillo M.D. Kemal Wright MD IMG US PROCEDURES Final Resu lt documented in this encounter Visit Diagnoses Not on filedocumented in this encounter Administered Medications Inactive Administered Medications - up to 3 most recent administrations Medication Order MAR Action Action Date Dose Rate Site acetaminophen (TYLENOL) tablet 1,000 mg 1,000 mg, oral, Every 6 hours scheduled, First dose on Sat11/14/18 at 1800, Indications: Fever, PainIndications:Fever,Pain Given 11/15/2018 1:11 PM INSTRUCTIONAL COORDINATOR 1,000 mg Given 11/15/2018 5:27 AM INSTRUCTIONAL COORDINATOR 1,000 mg Given 11/14/2018 11:33 PM INSTRUCTIONAL COORDINATOR 1,000 mg albuterol (PROVENTIL,VENTOLIN) 2.5 mg /3 mL (0.083 %) nebulizer solution 2.5 mg 2.5 mg, nebulization, 2 times daily PRN (outpatient physical therapist), wheezing, shortness of breath, Starting on Sat11/14/18 at 1335, This therapy was substituted for albuterol HFA 2 puffs BID PRN per protocol. atorvastatin (LIPITOR) tablet 40 mg 40 mg, oral, Daily, First dose on Sat11/14/18 at 1500 Given 11/15/2018 8:56 AM INSTRUCTIONAL COORDINATOR 40 mg bupivacaine preservative free 0.125 % [...] PainIndications:Postoperative Pain New Bag 11/14/2018 3:55 PM INSTRUCTIONAL COORDINATOR 6 mL/hr 6 mL/hr Right Groin cetirizine (ZyrTEC) tablet 10 mg 10 mg, oral, Daily, First dose on Sat11/14/18 at 1500 Given 11/15/2018 8:56 AM INSTRUCTIONAL COORDINATOR 10 mg folic acid (FOLVITE) tablet 1 mg 1 mg, oral, Daily, First dose on Sat11/14/18 at 1500 Given 11/15/2018 8:56 AM INSTRUCTIONAL COORDINATOR 1 mg gabapentin (NEURONTIN) capsule 300 mg 300 mg, oral, 3 times daily, First dose on Sat11/14/18 at 1600 Given 11/15/2018 8:56 AM INSTRUCTIONAL COORDINATOR 300 mg Given 11/14/2018 8:22 PM INSTRUCTIONAL COORDINATOR 300 mg HYDROmorphone (DILAUDID) injection 1 mg 1 mg, intramuscular, Administer over 2 Minutes, Once, On Sat11/14/18 at 1445, For 1 dose Given 11/14/2018 2:13 PM INSTRUCTIONAL COORDINATOR 1 mg Left Anterior Thigh Lactated Ringer's (LR) infusion 30 mL/hr, intravenous, Continuous, Starting on Sat11/14/18 at 1615, Pre-Op New Bag 11/14/2018 2:50 PM INSTRUCTIONAL COORDINATOR 30 mL/hr 30 mL/hr levothyroxine (SYNTHROID, LEVOTHROID) tablet 112 mcg 112 mcg, oral, Daily (early AM), First dose on Sat11/15/18 at 0600, Administer on an empty stomach, preferably 30 minutes before breakfast. Take 4 hours apart from antacids, iron and calcium products. Given 11/15/2018 5:27 AM INSTRUCTIONAL COORDINATOR 112 mcg ondansetron (ZOFRAN) injection 4 mg 4 mg, intravenous, Administer over 2 Minutes, Every 4 hours PRN, nausea, vomiting, Starting on Sat11/14/18 at 1358 ondansetron ODT (ZOFRAN-ODT) disintegrating tablet 4 mg 4 mg, oral, Every 4 hours PRN, nausea, vomiting, Starting on Sat11/14/18 at 1320 Given 11/15/2018 10:31 AM INSTRUCTIONAL COORDINATOR [address] (PROTONIX) extended release tablet 40 mg 40 mg, oral, Daily, First dose on Sat11/14/18 at 1500, This therapy was substituted for pantoprazole 40 mg per protocol due to formulary availability. Do not crush, chew, cut, dissolve, open or otherwise manipulate tablet/capsule., Indications: Treatment of Non-Bleeding Gastric DisorderIndications:Treat ment of Non-Bleeding Gastric Disorder Given 11/15/2018 8:56 AM INSTRUCTIONAL COORDINATOR 40 mg polyethylene glycol (MIRALAX) packet 17 g 17 g, oral, Daily, First dose on Sat11/15/18 at 0900, Hold for diarrhea., Indications: constipationIndications:c onstipation Given 11/15/2018 8:55 AM INSTRUCTIONAL COORDINATOR 17 g senna-docusate (PERICOLACE) 8.6-50 mg per tablet 2 tablet 2 tablet, oral, 2 times daily, First dose on Sat11/14/18 at 2100, Hold for diarrhea., Indications: constipationIndications:c onstipation Given 11/15/2018 8:56 AM INSTRUCTIONAL COORDINATOR 2 tablets Given 11/14/2018 8:22 PM INSTRUCTIONAL COORDINATOR 2 tablets traMADol (ULTRAM) tablet 100 mg 100 mg, oral, Every 6 hours scheduled, First dose on Sat11/14/18 at 1800, Indications: PainIndications:Pain Given 11/15/2018 1:11 PM INSTRUCTIONAL COORDINATOR 100 mg Given 11/15/2018 5:28 AM INSTRUCTIONAL COORDINATOR 100 mg Given 11/14/2018 11:33 PM INSTRUCTIONAL COORDINATOR 100 mg documented in this encounter Discontinued [...] Recently Administered Medications Times are shown in INSTRUCTIONAL COORDINATOR. Scheduled Medication Order 11/13/2018 11/14/2018 11/15/2018 acetaminophen (TYLENOL) tablet 1,000 mg 1,000 mg, oral, Every 6 hours scheduled, First dose on Sat11/14/18 at 1800, Indications: Fever, Pain 1512 ([facility] Hold - Provider: Automatic Transfer Provider - Reason: Patient not available)1624 ([facility] Unhold - Provider: Automatic Transfer Provider)1751 (Given - Provider: Jaz Renner, MIKHAIL)2333 (Given - Provider: Madison Fung, MIKHAIL) 0527 (Given - Provider: Ioana Wall, MIKHAIL)1311 (Given - Provider: Nithya Castro RN) atorvastatin (LIPITOR) tablet 40 mg 40 mg, oral, Daily, First dose on Sat11/14/18 at 1500 1512 ([facility] Hold - Provider: Automatic Transfer Provider - Reason: Patient not available)1624 ([facility] Unhold - Provider: Automatic Transfer Provider)1735 (Not Given - Provider: Jaz Renner RN - Reason: Contraindicated) 0856 (Given - Provider: Nithya Castro RN) cetirizine (ZyrTEC) tablet 10 mg 10 mg, oral, Daily, First dose on Sat11/14/18 at 1500 1512 ([facility] Hold - Provider: Automatic Transfer Provider - Reason: Patient not available)1624 ([facility] Unhold - Provider: Automatic Transfer Provider)1736 (Not Given - Provider: Jaz Renner RN - Reason: Contraindicated) 0856 (Given - Provider: Nithya Castro RN) folic acid (FOLVITE) tablet 1 mg 1 mg, oral, Daily, First dose on Sat11/14/18 at 1500 1512 ([facility] Hold - Provider: Automatic Transfer Provider - Reason: Patient not available)1624 ([facility] Unhold - Provider: Automatic Transfer Provider)1736 (Not Given - Provider: Jaz Renner, MIKHAIL - Reason: Contraindicated) 0856 (Given - Provider: Nithya Castro RN) gabapentin (NEURONTIN) capsule 300 mg 300 mg, oral, 3 times daily, First dose on Sat11/14/18 at 1600 1512 ([facility] Hold - Provider: Automatic Transfer Provider - Reason: Patient not available)1600 (Dose Auto Held - Provider: Automatic Transfer Provider)1624 ([facility] Unhold - Provider: Automatic Transfer Provider)202 (Given - Provider: Madison Fung, MIKHAIL) 0856 (Given - Provider: Nithya Castro RN) HYDROmorphone (DILAUDID) injection 0.5 mg 0.5 mg, intravenous, Administer over 2 Minutes, Once, On Sat11/14/18 at 1430, For 1 dose 1512 ([facility] Hold - Provider: Automatic Transfer Provider - Reason: Patient not available)1624 ([facility] Unhold - Provider: Automatic Transfer Provider)1738 (Not [...] 1 dose 1413 (Given - Provider: Dede Davis, MIKHAIL) levothyroxine (SYNTHROID, LEVOTHROID) tablet 112 mcg 112 mcg, oral, Daily (early AM), First dose on Sat11/15/18 at 0600, Administer on an empty stomach, preferably 30 minutes before breakfast. Take 4 hours apart from antacids, iron and calcium products. 1512 ([facility] Hold - Provider: Automatic Transfer Provider - Reason: Patient not available)1624 ([facility] Unhold - Provider: Automatic Transfer Provider) 0527 (Given - Provider: Ioana Wall, MIKHAIL) pantoprazole DR (PROTONIX) extended release tablet 40 mg 40 mg, oral, Daily, First dose on Sat11/14/18 at 1500, This therapy was substituted for pantoprazole 40 mg per protocol due to formulary availability. Do not crush, chew, cut, dissolve, open or otherwise manipulate tablet/capsule., Indications: Treatment of Non-Bleeding Gastric Disorder 1512 ([facility] Hold - Provider: Automatic Transfer Provider - Reason: Patient not available)1624 ([facility] Unhold - Provider: Automatic Transfer Provider)1736 (Not Given - Provider: Jaz Renner, MIKHAIL - Reason: Contraindicated) 0856 (Given - Provider: Nithya Castro, RN) polyethylene glycol (MIRALAX) packet 17 g 17 g, oral, Daily, First dose on Sat11/15/18 at 0900, Hold for diarrhea., Indications: constipation 1512 ([facility] Hold - Provider: Automatic Transfer Provider - Reason: Patient not available)1624 ([facility] Unhold - Provider: Automatic Transfer Provider) [...] Indications: VTE Prophylaxis Following Ortho Surgery 1512 ([facility] Hold - Provider: Automatic Transfer Provider - Reason: Patient not available)1624 ([facility] Unhold - Provider: Automatic Transfer Provider)1747 (Not Given - Provider: Jaz Renner, MIKHAIL - Reason: Contraindicated) senna-docusate (PERICOLACE) 8.6-50 mg per tablet 2 tablet 2 tablet, oral, 2 times daily, First dose on Sat11/14/18 at 2100, Hold for diarrhea., Indications: constipation 1512 ([facility] Hold - Provider: Automatic Transfer Provider - Reason: Patient not available)1624 ([facility] Unhold - Provider: Automatic Transfer Provider)202 (Given - Provider: Madison Fung RN) 0856 (Given - Provider: Nithya Castro RN) traMADol (ULTRAM) tablet 100 mg 100 mg, oral, Every 6 hours scheduled, First dose on Sat11/14/18 at 1800, Indications: Pain 1512 ([facility] Hold - Provider: Automatic Transfer Provider - Reason: Patient not available)1624 ([facility] Unhold - Provider: Automatic Transfer Provider)1751 (Given - Provider: Jaz Renner, MIKHAIL)2333 (Given - Provider: Madison Fung RN) 0528 (Given - Provider: Ioana Wall RN)1311 (Given - Provider: Nithya Castro RN) Continuous Medication Order 11/13/2018 11/14/2018 11/15/2018 [...] Pre-Op 1450 (New Bag - Provider: Gloria Brennan, MIKHAIL) sodium chloride 0.9% infusion 100 mL/hr, intravenous, Continuous, Starting on Sat11/14/18 at 1400, DISCONTINUE WHEN TOLERATING ORAL FLUIDS 1746 (Not Given - Provider: Jza Renner RN - Reason: Contraindicated) PRN Medication Order 11/13/2018 11/14/2018 11/15/2018 albuterol (PROVENTIL,VENTOLIN) 2.5 mg /3 mL (0.083 %) nebulizer solution 2.5 mg 2.5 mg, nebulization, 2 times daily PRN (outpatient physical therapist), wheezing, shortness of breath, Starting on Sat11/14/18 at 1335, This therapy was substituted for albuterol HFA 2 puffs BID PRN per protocol. 1512 ([facility] Hold - Provider: Automatic Transfer Provider - Reason: Patient not available)1624 ([facility] Unhold - Provider: Automatic Transfer Provider) bisacodyl EC (DULCOLAX EC) tablet 10 mg 10 mg, oral, Daily PRN, constipation, If no results 24 hours after milk of magnesia, Starting on Sat11/14/18 at 1321, Do not crush, chew, cut, dissolve, open or otherwise manipulate tablet/capsule. 1512 ([facility] Hold - Provider: Automatic Transfer Provider - Reason: Patient not available)1624 ([facility] Unhold - Provider: Automatic Transfer Provider) magnesium hydroxide (MILK OF MAGNESIA) 80 mg/mL (33.3 mg/mL as elemental magnesium) oral suspension 30 mL 30 mL, oral, Daily PRN, constipation, Starting on Sat11/14/18 at 1321 1512 ([facility] Hold - Provider: Automatic Transfer Provider - Reason: Patient not available)1624 ([facility] Unhold - Provider: Automatic Transfer Provider) mineral oil (FLEET MINERAL OIL) enema 1 enema 1 enema, rectal, Daily PRN, constipation, if no results 24 hours after bisacodyl, Starting on Sat11/14/18 at 1321, Indications: constipation 1512 ([facility] Hold - Provider: Automatic Transfer Provider - Reason: Patient not available)1624 ([facility] Unhold - Provider: Automatic Transfer Provider) ondansetron (ZOFRAN) injection 4 mg 4 mg, intravenous, Administer over 2 Minutes, Every 4 hours PRN, nausea, vomiting, Starting on Sat11/14/18 at 1358 1512 ([facility] Hold - Provider: Automatic Transfer Provider - Reason: Patient not available)1624 ([facility] Unhold - Provider: Automatic Transfer Provider) ondansetron ODT (ZOFRAN-ODT) disintegrating tablet 4 mg 4 mg, oral, Every 4 hours PRN, nausea, vomiting, Starting on Sat11/14/18 at 1320 1512 ([facility] Hold - Provider: Automatic Transfer Provider - Reason: Patient not available)1624 ([facility] Unhold - Provider: Automatic Transfer Provider) 1031 (Given - Provider: Nithya Castro RN) sodium chloride 0.9% flush 0.5-20 mL 0.5-20 mL, intra-catheter, As needed, line care, Starting on Sat11/14/18 at 1321, Flush volume based on line type and size. Flush before and after each use. , Indications: Flushing 1512 ([facility] Hold - Provider: Automatic Transfer Provider - Reason: Patient not available)1624 ([facility] Unhold - Provider: Automatic Transfer Provider) documented [...] 11/14/2018 documented in this encounter Care Teams Travel Agency Manager Relationship Specialty Start Date End Date Dominic Fernando MD [address] [place] [address] PCP - General 08/13/17 documented as of this encounter
--- OUTSIDE RECORDS SUMMARY | 2024-09-04 17:10 | XMS_ITS | Encounter Summary ---
Author Organization [facility] Medical Group Address [address] [place] [address] Care Team Providers Care Tree Farmer Name Role Phone Dominic Fernando MD Primary Care Provider [phone] Reason for Visit * Reason Onset Date Comments home health ? 11/13/2018 Encounter Details Date Type Department Care Team (Late st Contact Info) Description 11/13/2018 Telephone [facility] Orthopedics and Sports Medicine [address] [place] [address] Kemal Wright MD [address] [place] [address] [address] [place] [address] home health ? Social History Tobacco Use Types Packs/Day Years Used Date Smoking Tobacco: Every Day Cigarettes Smokeless Tobacco: Current Comments:quitting now, 1 pac k last 2-3 days Alcohol Use Standard Drinks/Week Comments No 0 (1 standard drink = 0.6 oz pur e alcohol) Comments No Sex and Gender Information Value Date Recorded Sex Assigned at Not on file Legal Sex Female 11:26 PM MEDICAL BILLING CLERK Gender Identity Not on file Sexual Orientation Not on file documented as of this encounter Ordered Prescriptions Prescription Sig Dispense Quantity Refills Last Filled Start Date End Date ondansetron ODT (ZOFRAN-ODT) 4 mg disintegrating tablet Take 1 tablet (4 mg total) by mouth every 4 (four) hours as needed for nausea or vomiting. 20 tablet 1 11/13/2018 0 documented in this encounter Miscellaneous Notes * Telephone Encounter - Alexis Mckay PA - 11/13/2018 12:50 PM MEDICAL BILLING CLERK I discussed with patient and nurse present. Pt declined going to ED Negative for productive cough, fever, chest pain, shortness of breath, abdominal pain, hematemesis,hematochezia Advised her to d/c celebrex, ferrous sulfate and vitamin C Advised incentive spirometry and monitoring of lungs-pt is smoker Rx for zofran sent for nausea to pharmacy; advised clear liquid diet and progressive bland diet when tolerating fluids. Pt advised to go to ED if any worsening symptoms/not continued poor tolerance for PO intake, or if any of above symptoms occurred. She voiced understanding. Home health nurse was going to follow up on pt tomorrow. CAL BILLING CLERK * Telephone Encounter - Shruti Mooney MA - 11/13/2018 11:12 AM CST Called and spoke to Tiffanie and then alexis spoke to Home Care. Thank you CAL BILLING CLERK * Telephone Encounter - Peggy Smith - 11/13/2018 10:12 AM CST Tiffanie from [facility] Home Care is calling and states that she is with pt now. States that pt advised her that upon getting home last evening. (pt was dc from hospital yesterday has had 2-3 episodes of vomiting.No fever bp is 108/62 sitting 102/54 standing. Lungs sounds all diminished crackles in left and right lower lobes. Also has several questions about her medicatons. States pts pain is at 7 out of 10. She is using ice. States she does not have any medications for nausea. She can be reached at [phone] . States pt was able to take a pain pill this am. CAL BILLING CLERK * Telephone Encounter - Sadia Rodríguez - 11/13/2018 9:59 AM CST Tiffanie with [facility] Home Health left a vm stating she is needing a call at [phone]. CAL BILLING CLERK documented in this encounter Plan of Treatment Not on file documented as of this encounter Visit Diagnoses Not on filedocumented in this encounter Care Teams Tree Farmer Relationship Specialty Start Date End Date Dominic Fernando MD [address] [facility] [address] [place] [id number] PCP - General 08/13/17 documented as of this encounter
--- OUTSIDE RECORDS SUMMARY | 2024-09-04 17:10 | XMS_ITS | Encounter Summary ---
Author Organization [facility] Home Care [facility]ic es Address [address] [place] [address] Phone Care Team Providers Care Gis Scientist Name Role Phone Dominic Fernando MD Primary Care Provider [phone] Reason for Visit * Auth/Cert Specialty Diagnoses / Procedures Referred By Contac t Referred To Contact Referral ID Status Reason Start Date Expiration Date Visits Re quested Visits Authorized [id number] 1 1 Encounter Details Date Type Department Care Team (Late st Contact Info) Description 11/24/2018 Home Care Visit [facility] [address] [place] [address] Julee Lundberg, PT PT SUPERVISORY VISIT Social History Tobacco Use Types Packs/Day Years Used Date Smoking Tobacco: Every Day Cigarettes Smokeless Tobacco: Current Comments:quitting now, 1 pac k last 2-3 days Alcohol Use Standard Drinks/Week Comments No 0 (1 standard drink = 0.6 oz pur e alcohol) Comments No Sex and Gender Information Value Date Recorded Sex Assigned at Not on file Legal Sex Female 11:26 PM YARN SPINNER Gender Identity Not on file Sexual Orientation Not on file documented as of this encounter Plan of Treatment Not on file documented as of this encounter Visit Diagnoses Not on filedocumented in this encounter Care Teams Gis Scientist Relationship Specialty Start Date End Date Dominic Fernando MD [address] [place] [address] PCP - General 08/13/17 documented as of this encounter
--- OUTSIDE RECORDS SUMMARY | 2024-09-04 17:10 | XMS_ITS | Encounter Summary ---
Author Organization [facility] Home Care [facility] Address [address] [place] [address] Phone Care Team Providers Care Container Finishing Inspector Name Role Phone Dominic Fernando MD Primary Care Provider [phone] Reason for Visit * Auth/Cert Specialty Diagnoses / Procedures Referred By Contac t Referred To Contact Referral ID Status Reason Start Date Expiration Date Visits Re quested Visits Authorized [id number] 1 1 Encounter Details Date Type Department Care Team (Latest Contact Info) Description 11/17/2018 3:30 PM KNITTING MACHINE MECHANIC Home Care Visit [facility] [address] [address] [address] [place], [place] [id number] Julee Lundberg, PT PT INITIAL EVALUATION Social History Tobacco Use Types Packs/Day Years Used Date Smoking Tobacco: Every Day Cigarettes Smokeless Tobacco: Current Comments:quitting now, 1 pac k last 2-3 days Alcohol Use Standard Drinks/Week Comments No 0 (1 standard drink = 0.6 oz pur e alcohol) Comments No Sex and Gender Information Value Date Recorded Sex Assigned at Not on file Legal Sex Female 11:26 PM KNITTING MACHINE MECHANIC Gender Identity Not on file Sexual Orientation Not on file documented as of this encounter Last Filed Vital Signs Vital Sign Reading Time Taken Comments Blood Pressure 124/70 11/17/2018 3:06 PM KNITTING MACHINE MECHANIC Pulse 68 11/17/2018 3:06 PM KNITTING MACHINE MECHANIC Temperature 36.4 ??C (97.5 ??F) 11/17/2018 3:06 PM CS T Respiratory Rate 16 11/17/2018 3:06 PM KNITTING MACHINE MECHANIC Oxygen Saturation 98% 11/17/2018 3:06 PM KNITTING MACHINE MECHANIC Inhaled Oxygen Concentration - - Weight - - Height - - Body Mass Index - - documented in this encounter Plan of Treatment Not on file documented as of this encounter Visit Diagnoses Not on filedocumented in this encounter Home Health Visit - Care Plan Visit Details Visit Type -PT Initial Evalu ation Discipline -Physical Therapy Problems Problem Description Start Date Status Goals Interve ntions PT Orthopedic-Total Joint Replacement Disciplines: Physical Therapy Total Joint Replacement of R knee 11/17/2018 Active - 5 problem interventions scheduled/documented in this visit Interventions Intervention Associated Problem/Goal Status Variance Visit Notes Home Exercise Program (HEP) Description: Instruct patient/caregiver and perform HEP. Problem:PT Orthopedic-Total Joint Replacement Completed Gait/Stair Training Description: Instruct patient/caregiver and perform gait/stair training. Problem:PT Orthopedic-Total Joint Replacement Completed Bed Mobility/Transfer Training Description: Instruct patient/caregiver and perform bed mobility/transfer training. Problem:PT Orthopedic-Total Joint Replacement Completed Assistive Devices/DME Description: Recommend and assist with obtaining assistive devices/DME. Problem:PT Orthopedic-Total Joint Replacement Completed Therapeutic Exercise Description: Perform therapeutic exercise, progressing as tolerated. Problem:PT Orthopedic-Total Joint Replacement Completed documented in this encounter Home Health Visit - Actions and Narratives Actions S/P R TKR PFL: amb ind without device Treatment gait training with wheeled walker. Instructed to place wt on R LE with walker. Instructed in proper position for elevation. Issued jt instruction sheet. Dtr in room for part of the treatment. Instructed dtr in need to help with some of the exercises Patient returned to hospital due to pain and had a peripheral pain pump installed. Pain pump now finished. Had been wearing a knee immobilzer due to the pump. She had not been doing any exercises. Instructed not to use immobilzer now that the pump is finished. Instructed in supine ankle pumps, quad sets, heel prop. SAQ, hip abd, SLR and heel slides. Need physical assist with SAQ and SLR 10 reps. INstructed to perfomr exercises 2 x day. Issued written HEP Instructed to ice after exercises. Has TENS unit and instructed to use 2 x day Plam of care discussed with patient and in agreement documented in this encounter Care Teams Container Finishing Inspector Relationship Specialty Start Date End Date Dominic Fernando MD [address] [facility] [address] [place] [id number] PCP - General 08/13/17 documented as of this encounter
--- OUTSIDE RECORDS SUMMARY | 2024-09-04 17:10 | XMS_ITS | Encounter Summary ---
Author Organization [facility] Address [address] [facility] [facility] [address] [place] [address] Care Team Providers Care Filler Shredder Helper Name Role Phone Dominic Fernando MD Primary Care Provider [phone] Reason for Visit * Reason Onset Date Comments FMLA papers for son 11/17/2018 Encounter Details Date Type Department Care Team (Late st Contact Info) Description 11/17/2018 Telephone [facility] Orthopedics and Sports Medicine [address] [place] [address] Kemal Wright MD [address] [place] [address] [address] [place] [address] FMLA papers for son Social History Tobacco Use Types Packs/Day Years Used Date Smoking Tobacco: Every Day Cigarettes Smokeless Tobacco: Current Comments:quitting now, 1 pac k last 2-3 days Alcohol Use Standard Drinks/Week Comments No 0 (1 standard drink = 0.6 oz pur e alcohol) Comments No Sex and Gender Information Value Date Recorded Sex Assigned at Not on file Legal Sex Female 11:26 PM COMPRESSOR MECHANIC BUS Gender Identity Not on file Sexual Orientation Not on file documented as of this encounter Miscellaneous Notes * Telephone Encounter - Rola Hernandez RT - 11/17/2018 11:40 AM COMPRESSOR MECHANIC BUS Spoke with patients son. Disability paperwork is ready for pick remover. RESSOR MECHANIC BUS * Telephone Encounter - Sadia Rodríguez - 11/17/2018 10:11 AM CST Pt is calling because she was seen on Saturday and her son dropped off some FMLA papers for him. She is wanting to know if they are ready for pick remover and would like a call at [phone]. RESSOR MECHANIC BUS documented in this encounter Plan of Treatment Not on file documented as of this encounter Visit Diagnoses Not on filedocumented in this encounter Care Teams Filler Shredder Helper Relationship Specialty Start Date End Date Dominic Fernando MD [address] [facility] [address] [place] [id number] PCP - General 08/13/17 documented as of this encounter
--- OUTSIDE RECORDS SUMMARY | 2024-09-04 17:10 | XMS_ITS | Encounter Summary ---
Author Organization [facility] Address [address] [place] [address] Care Team Providers Care Plumber Assistant Name Role Phone Dominic Fernando MD Primary Care Provider Encounter Details Date Type Department Care Team (Late st Contact Info) Description 11/14/2018 3:00 PM SECURITY SOFTWARE ENGINEER Anesthesia Event [facility] Operating Room [address] [place] [address] Jose Alfredo Rodríguez MD PhD [address] [place] [address] Anesthesia Record Procedure Summary Procedure Name Responsible Anesthesiologist Anesthesia Start Time Anesthesia Stop Time PERIPHERAL NERVE BLOCK Jose Alfredo Rodríguez MD PhD 11/14/18 1500 11/14/18 1513 Events Date Time Event Comment 11/14/2018 1500 An Start 1509 1513 An Stop Meds Name Total fentaNYL 100 mcg epinePHRINE 1:200,000-bupivacaine 0.25 % 30 mL * Agents No agents on file. * Blood No blood administrations on file. Lines, Drains, and Airways Type Details Placement Removal Peripheral IV Placement Date: 11/14/18; Placement Time: 1450; Catheter Size: 22 G; Orientation: Left; Location: Forearm; Insertion Attempts: 1; Patient Tolerance: Tolerated well 11/14/18 1450 by Gloria Brennan RN PNB catheter Placement Date: 11/14/18; Placement Time: 1500 (created via procedure documentation); Inserted by: Jose Alfredo Rodríguez MD PhD; Removal Date: Injectable, Topical, None; Removal Time: Tolerated well 11/14/18 1500 by Jose Alfredo Rodríguez MD PhD RETIRED Surgical Site 11/11/18; 1523; Right; Knee; 08/18/24 (Retired LDA, Removed/Completed by Sportlyzer with LDA Utility); 1213 (Retired LDA, Removed/Completed by Sportlyzer with LDA Utility) 11/11/18 1523 by Purnima Garcia RN 08/18/24 1213 by Discharge Provider, Automatic documented in this encounter Social History Tobacco [...] on file Legal Sex Female 11:26 PM SECURITY SOFTWARE ENGINEER Gender Identity Not on file Sexual Orientation Not on file documented as of this encounter OR Notes * Anesthesia Postprocedure Evaluation - Jose Alfredo Rodríguez MD PhD - 11/14/2018 3:11 PM CST Patient: Gege Vidal Procedure Summary Date: 11/14/18 Room / Location: [facility] OPERATING ROOM Anesthesia Start: Anesthesia Stop: Procedure: PERIPHERAL NERVE BLOCK (N/A ) Diagnosis: (PAIN) Provider: Jose Alfredo Rodríguez MD PhD Responsible Provider: Anesthesia Type: PNB - continuous catheter ASA Status: 3 Anesthesia Type: PNB - continuous catheter Last vitals BP 118/54 (BP Location: Right arm, Patient Position: Lying) Pulse 75 Resp 18 SpO2 94% Anesthesia Post Evaluation Patient location during evaluation: PACU Patient participation: complete - patient participated Level of consciousness: fully awake Pain score: 0 Pain management: adequate Airway patency: adequate Anesthetic complications: no Cardiovascular status: acceptable Respiratory status: acceptable Hydration status: acceptable Pt is: normothermic Nausea/Vomiting status: none RITY SOFTWARE ENGINEER * Anesthesia Procedure Notes - Jose Alfredo Rodríguez MD PhD - 11/14/2018 3:10 PM CSTAssociated Order(s): ANESTHESIA PERIPHERAL BLOCK Peripheral Block Patient location during procedure: block room Start time: 11/14/2018 3:00 PM End time: 11/14/2018 3:10 PM Reason for block: post-op pain management per surgeon request Ultrasound image in chart or stored: yes Block type: catheter continuous infusion Laterality: right Block type: femoral nerve block Staff: Placed by: Anesthesiologist: JOSE ALFREDO RODRÍGUEZ Procedure prep: Preprocedure checklist: patient identified, procedure contraindications assessed, site marked, procedure consent, surgical consent, IV checked, risks, benefits and alternatives discussed, monitors and equipment checked and timeout performed Patient position: supine Procedure performed while patient: sedate with meaningful contact Monitoring: ECG, oximetry and blood pressure Supplemental O2: nasal cannula Prep solution: chlorhexidine/alcohol PPE: provider hat/mask, sterile gloves and sterile drape Skin infiltrated with lidocaine 1%: yes Peripheral nerve block: Technique: ultrasound guided Needle type: insulated Needle length: 100 mm Injection assessment: injection made incrementally with constant monitoring, local visualized surrounding nerve on ultrasound, negative aspiration for heme, no paresthesias noted, normal resistance to injection and see flowsheet for medication details Catheter: Catheter type: 20g stimulating catheter Catheter over needle length: 100 Needle depth at target: 7 cm Catheter depth at skin: 7 cm Catheter placement details: catheter position confirmed by ultrasound, occlusive dressing applied, steri-strips and dermal adhesive Assessment: Block success: complete Events: patient tolerated procedure well with no complications RITY SOFTWARE ENGINEER * Anesthesia Preprocedure Evaluation - Jose Alfredo Rodríguez MD PhD - 11/14/2018 3:08 PM CST Anesthesia Evaluation Gege Vidal is a 58 y.o. female Procedure(s): PERIPHERAL NERVE BLOCK HISTORY Past Medical History Information obtained from: patient and chart. Neurological + CVA/Stroke Number of CVA episodes: 1. Date of last CVA: 01/2018. Cardiovascular + Hyperlipidemia + DVT/PE Respiratory + COPD - emphysema. Dyspnea frequency: never. Rescue inhaler use: never. + Current smoker Patient smoked on day of surgery. Hepatic / Heme Hepatic/Heme system: negative Gastrointestinal + GERD - on daily therapy. Asymptomatic. Renal / Renal/ system: negative Musculoskeletal/Pain + Osteoarthritis Endocrine / Other + Thyroid disease - hypothyroidism + Obesity (BMI >30) + Cancer history Cancer type: cervical. Functional Capacity Functional capacity: 4-6 METs Patient Active Problem List Diagnosis ??? Primary osteoarthritis of right knee ??? Aftercare following right knee joint replacement surgery Past Medical History: Diagnosis Date ??? Cervical cancer (CMS/HCC) cervical ??? Emphysema of lung (CMS/HCC) ??? GERD (gastroesophageal reflux disease) ??? H/O: hysterectomy ??? Hiatal hernia ??? History of blood clots ??? Hyperlipidemia ??? Hypothyroidism ??? Poor circulation ??? Stroke (CMS/HCC) ??? Thyroid disease Past Surgical History: Procedure Laterality Date ??? BREAST SURGERY biopsy ??? CAROTID ENDARTERECTOMY ??? CHOLECYSTECTOMY ??? EYE SURGERY tumors removed ??? HYSTERECTOMY partial ??? KNEE ARTHROSCOPY ??? NECK SURGERY ??? ROTATOR CUFF REPAIR ??? TUBAL LIGATION OB History No data available Allergies Allergen Reactions ??? Codeine Shortness of breath ??? Morphine Hypotension ??? Penicillins Shortness of breath ??? Latex Rash ??? Vancomycin Other (See comments) and Headache Headache, flushed face, redmans. HOME MEDICATIONS : albuterol HFA (VENTOLIN HFA) 90 mcg/actuation inhaler ascorbic acid (VITAMIN C) 500 mg tablet,chewable aspirin 81 mg tablet atorvastatin (LIPITOR) 40 mg tablet celecoxib (CeleBREX) 200 mg capsule cetirizine 10 mg capsule cyanocobalamin (Vitamin B-12) 1,000 mcg tablet ergocalciferol (VITAMIN D) 50,000 unit capsule ferrous sulfate 325 mg (65 mg of elemental iron) tablet folic acid (FOLVITE) 1 mg tablet levothyroxine (SYNTHROID, LEVOTHROID) 112 mcg tablet ondansetron ODT (ZOFRAN-ODT) 4 mg disintegrating tablet oxyCODONE-acetaminophen (PERCOCET) 5-325 mg per tablet pantoprazole DR (PROTONIX) 20 mg EC tablet XARELTO 20 mg tablet No current facility-administered medications for this visit. No current outpatient prescriptions on file. Facility-Administered Medications Ordered in Other Visits: ??? acetaminophen (TYLENOL) tablet 1,000 mg, 1,000 mg, oral, Q6H RAFIQ ??? albuterol (PROVENTIL,VENTOLIN) 2.5 mg /3 mL (0.083 %) nebulizer solution 2.5 mg, 2.5 mg, nebulization, BID PRN (RT) ??? atorvastatin (LIPITOR) tablet 40 mg, 40 mg, oral, Daily ??? bisacodyl EC (DULCOLAX EC) tablet 10 mg, 10 mg, oral, Daily PRN ??? cetirizine (ZyrTEC) tablet 10 mg, 10 mg, oral, Daily ??? folic acid (FOLVITE) tablet 1 mg, 1 mg, oral, Daily ??? gabapentin (NEURONTIN) capsule 300 mg, 300 mg, oral, TID ??? HYDROmorphone (DILAUDID) injection 0.5 mg, 0.5 mg, intravenous, Once ??? [START ON 11/15/2018] levothyroxine (SYNTHROID, LEVOTHROID) tablet 112 mcg, 112 mcg, oral, Daily - 0600 ??? magnesium hydroxide (MILK OF MAGNESIA) 80 mg/mL (33.3 mg/mL as elemental magnesium) oral suspension 30 mL, 30 mL, oral, Daily PRN ??? mineral oil (FLEET MINERAL OIL) enema 1 enema, 1 enema, rectal, Daily PRN ??? ondansetron (ZOFRAN) injection 4 mg, 4 mg, intravenous, Q4H PRN ??? ondansetron ODT (ZOFRAN-ODT) disintegrating tablet 4 mg, 4 mg, oral, Q4H PRN ??? pantoprazole DR (PROTONIX) extended release tablet 40 mg, 40 mg, oral, Daily ??? [START ON 11/15/2018] polyethylene glycol (MIRALAX) packet 17 g, 17 g, oral, Daily ??? rivaroxaban (XARELTO) tablet 20 mg, 20 mg, oral, Daily ??? senna-docusate (PERICOLACE) 8.6-50 mg per tablet 2 tablet, 2 tablet, oral, BID ??? sodium chloride 0.9% flush 0.5-20 mL, 0.5-20 mL, intra-catheter, PRN ??? sodium chloride 0.9% infusion, 100 mL/hr, intravenous, Continuous ??? traMADol (ULTRAM) tablet 100 mg, 100 mg, oral, Q6H RAFIQ Social History Smoking Status ??? Current Every Day Smoker ??? Packs/day: 1.00 Smokeless Tobacco ??? Current User Comment: quitting now, 1 pack last 2-3 days Alcohol Use No Drug Use No Family History Problem Relation Age of Onset ??? Hypertension Mother ??? Cancer Mother ??? Arthritis Mother ??? Diabetes Mother ??? Heart disease Father ??? Diabetes Father ??? Clotting disorder Sister ??? Diabetes Sister ??? Stroke Son ??? Diabetes Son PAT Physical Exam There were no vitals filed for this visit. PT: 11/11/2018: 11.3 sec INR: 11/11/2018: 1.00 APTT: 11/11/2018: 26.6 sec Hgb A1C: No results found for requested labs within last 720 hours. CBC RBC: 11/14/2018: 3.64 M/cumm* RDW: No results found for requested labs within last 720 hours. MCHC: 11/14/2018: 32.7 g/dL MCH: 11/14/2018: 28.3 pg MCV: 11/14/2018: 86.5 fL Hct: 11/14/2018: 31.5 %* Hgb: 11/14/2018: 10.3 g/dL* WBC: 11/14/2018: 7.8 K/cumm MPV: 11/14/2018: 10.5 fL Platelets: 11/14/2018: 206 K/cumm RDW CV: 11/14/2018: 13.6 % RDW Sd: 11/03/2018: 42.1 fL BMP Glucose: 11/03/2018: 102 mg/dL Calcium: 11/03/2018: 9.5 mg/dL Sodium: 11/03/2018: 141 mmol/L Potassium: 11/03/2018: 3.3 mmol/L CO2: 11/03/2018: 23 mmol/L Chloride: 11/03/2018: 105 mmol/L BUN: 11/03/2018: 6 mg/dL* Creatinine: 11/03/2018: 0.93 mg/dL EKG 11/04/17: SINUS RHYTHM LOW QRS VOLTAGE IN PRECORDIAL LEADS ??[QRS DEFLECTION < 1.0 mV IN CHEST LEADS] NONSPECIFIC T-WAVE ABNORMALITY BORDERLINE ECG DOS Physical Exam Medical history, medications, and allergies reviewed. Attestation: I endorse the findings of the anesthesia pre-evaluation assessment dated: 11/14/2018. Airway Exam: Mallampati: II Cervical ROM: FROM TM distance: normal Jaw ROM: full Cardiovascular Exam: Rate: regular Rhythm: regular Pulmonary Exam: LCTA, bilat Dental Exam: Edentulous, upper dentures and lower dentures Skin Exam: Skin is warm. Current state: Patient's current state is cooperative and interactive. Anesthesia Plan ASA 3 Planned anesthesia: PNB - continuous catheter Lower extremity: femoral nerve block (distal mid thigh) Postoperative Plan: No postoperative mechanical ventilation intended. Patient's planned disposition post procedure is Floor. Informed Consent: Discussed plan with AUTOMATIC SPINNING LATHE SETTER. Anesthesia plan and risks discussed with patient. Consent and Attending signature: I and/or my designee have discussed the anesthesia plan, benefits, possible alternatives, parental presence at time of induction (if indicated), and clinically relevant risks that may include dental injury, unintentional awareness, and/or other complications. The patient and/or parent/legal guardian understand, and agree to proceed. All questions answered. RITY SOFTWARE ENGINEER documented in this encounter Plan of Treatment Not on file documented as of this encounter Procedures Procedure Name Priority Date/Time Associated Diagnosis Comments ANESTHESIA PERIPHERAL BLOCK Routine 11/14/2018 3:10 PM SECURITY SOFTWARE ENGINEER Procedure Note - Jose Alfredo Rodríguez MD PhD - 11/14/2018 3:10 PM CSTThis note is in progress. Peripheral Block Patient location during procedure: block room Start time: 11/14/2018 3:00 PM End time: 11/14/2018 3:10 PM Reason for block: post-op pain management per surgeon request Ultrasound image in chart or stored: yes Block type: catheter continuous infusion Laterality: right Block type: femoral nerve block Staff: Placed by: Anesthesiologist: JOSE ALFREDO RODRÍGUEZ Procedure prep: Preprocedure checklist: patient identified, procedure contraindicationsassessed, site marked, procedure consent, surgical consent, IV checked,risks, benefits and alternatives discussed, monitors and equipment checkedand timeout performed Patient position: supine Procedure performed while patient: sedate with meaningful contact Monitoring: ECG, oximetry and blood pressure Supplemental O2: nasal cannula Prep solution: chlorhexidine/alcohol PPE: provider hat/mask, sterile gloves and sterile drape Skin infiltrated with lidocaine 1%: yes Peripheral nerve block: Technique: ultrasound guided Needle type: insulated Needle length: 100 mm Injection assessment: injection made incrementally with constantmonitoring, local visualized surrounding nerve on ultrasound, negativeaspiration for heme, no paresthesias noted, normal resistance to injectionand see flowsheet for medication details Catheter: Catheter type: 20g stimulating catheter Catheter over needle length: 100 Needle depth at target: 7 cm Catheter depth at skin: 7 cm Catheter placement details: catheter position confirmed by ultrasound,occlusive dressing applied, steri-strips and dermal adhesive Assessment: Block success: complete Events: patient tolerated procedure well with no complications documented in this encounter Visit Diagnoses Not on filedocumented in this encounter Administered Medications Inactive Administered Medications - up to 3 most recent administrations Medication Order MAR Action Action Date Dose Rate Site bupivacaine-EPINEPHrine (MARCAINE with EPI) 0.25 %-1:200,000 preservative free injection As needed, Starting on Sat11/14/18 at 1503, Anesthesia Intra-op Given 11/14/2018 3:03 PM SECURITY SOFTWARE ENGINEER 30 mL fentaNYL (SUBLIMAZE) preservative free injection As needed, Starting on Sat11/14/18 at 1503, Anesthesia Intra-op Given 11/14/2018 3:03 PM SECURITY SOFTWARE ENGINEER 100 mcg documented in this encounter Orders Procedures Count Last Ordered Date First Orde red Date ANESTHESIA PERIPHERAL BLOCK 1 11/14/2018 documented in this encounter Care Teams Plumber Assistant Relationship Specialty Start Date End Date Dominic Fernando MD [address] [facility] [address] [place] [address] PCP - General 08/13/17 documented as of this encounter
--- OUTSIDE RECORDS SUMMARY | 2024-09-04 17:10 | XMS_ITS | Encounter Summary ---
Author Organization [facility] Care Serv[facility] es Address [address] [place] [address] Phone Care Team Providers Care Silk Washing Machine Operator Name Role Phone Dominic Fernando MD Primary Care Provider [phone] Encounter Details Date Type Department Care Team (Late st Contact Info) Description 11/13/2018 Plan of Care Documentation [facility] [place] [address] [address] [place] [address] Social History Tobacco Use Types Packs/Day Years Used Date Smoking Tobacco: Every Day Cigarettes Smokeless Tobacco: Current Comments:quitting now, 1 pac k last 2-3 days Alcohol Use Standard Drinks/Week Comments No 0 (1 standard drink = 0.6 oz pur e alcohol) Comments No Sex and Gender Information Value Date Recorded Sex Assigned at Not on file Legal Sex Female 11:26 PM TRANSIT MIX OPERATOR Gender Identity Not on file Sexual Orientation Not on file documented as of this encounter Plan of Treatment Not on file documented as of this encounter Visit Diagnoses Not on filedocumented in this encounter Care Teams Silk Washing Machine Operator Relationship Specialty Start Date End Date Dominic Fernando MD [address] [place] [address] PCP - General 08/13/17 documented as of this encounter
--- OUTSIDE RECORDS SUMMARY | 2024-09-04 17:10 | XMS_ITS | Encounter Summary ---
Author Organization [facility] Healthcare Address [address] [place] [address] Care Team Providers Care Retail Manager In Training Name Role Phone Dominic Fernando MD Primary Care Provider [phone] Reason for Referral * (Routine) - Closed Specialty Diagnoses / Procedures Referred By Contac t Referred To Contact Diagnoses Preoperative testing Procedures ECG 12 lead Kemal Wright MD Phone: tel: fax: [address] [phone] Referral ID Status Reason Start Date Expiration Date Visits Re quested Visits Authorized [id number] Closed 10/28/2018 05/08/2020 1 1 ITE MIXER Encounter Details Date Type Department Care Team (Latest Contact Info) Description 11/11/2018 10:37 AM FOAMITE MIXER - 11/12/2018 3:10 PM FOAMITE MIXER Hospital Encounter [facility] [address] [place] [address] Kemal Wright MD [address] [place] [address] [address] [facility] [address] [place] [address] Preoperative testing (Primary Dx); Primary osteoarthritis of right knee Discharge Disposition: Discharge to home, home health [...] on file Legal Sex Female 11:26 PM FOAMITE MIXER Gender Identity Not on file Sexual Orientation Not on file documented as of this encounter Last Filed Vital Signs Vital Sign Reading Time Taken Comments Blood Pressure 113/70 11/12/2018 11:05 AM FOAMITE MIXER Pulse 69 11/12/2018 11:05 AM FOAMITE MIXER Temperature 35.6 ??C (96 ??F) 11/12/2018 11:05 AM FOAMITE MIXER Respiratory Rate 20 11/12/2018 11:05 AM FOAMITE MIXER Oxygen Saturation 95% 11/12/2018 11:05 AM FOAMITE MIXER Inhaled Oxygen Concentration - - Weight 86.8 kg (191 lb 5.8 oz) 11/11/2018 11:01 AM FOAMITE MIXER Height 160 cm (5' 3 ) 11/11/2018 11:01 AM FOAMITE MIXER Body Mass Index 33.9 11/11/2018 11:01 AM FOAMITE MIXER documented in this encounter Discharge Summaries * Ever Nino PA - 11/12/2018 3:28 PM CST Inpatient Discharge Summary BRIEF OVERVIEW Admitting Provider: Kemal Wright MD Discharge Provider: Kemal Wright MD Primary Care Physician at Discharge: Dominic Fernando MD [phone] Admission Date: 11/11/2018 Discharge Date: 11/12/2018 Admission Location: [facility] Primary Discharge Diagnosis: Aftercare following right knee joint replacement surgery Secondary Discharge Diagnosis: Aftercare following right knee joint replacement surgery Primary osteoarthritis of right knee * No resolved hospital problems. * DETAILS OF HOSPITAL STAY Presenting Problem/History of Present Illness: Primary osteoarthritis of right knee Hospital Course: Patient was admitted 1 days ago for elective TKA on the right side. They have done well with physical therapy and pain control and now deemed a safe candidate to return to home with home health and PT. Active Issues Requiring Follow-up: S/p TKA Test Results Pending at Discharge: Order Current Status Surgical pathology In process Operative Procedures Performed: Procedure(s): Right total knee arthroplasty Other Procedures: none Pertinent Test Results: XR KNEE RIGHT 1 OR 2 VIEWS ?? HISTORY: post op. Primary osteoarthritis of right knee. ?? COMPARISON: None available. ?? VIEWS: Portable AP and 2 crosstable lateral views ?? FINDINGS: Total knee prosthesis is in place. Femoral and tibial components articulate satisfactorily in these projections. Small amount of opaque cement is present at interface between each component and underlying bone. A patellar prosthetic component is not present. Small amount of air is present in the joint space and in overlying soft tissues. ?? IMPRESSION: 1. Status post right total knee arthroplasty; femoral and tibial components only. ?? Electronically signed by: Yann Trinidad Jr., M.D. Discharge Details Physical Exam at Discharge: Discharge Condition: good Pulse: 69 Resp: 20 BP: 113/70 Temp: (!) 35.6 ??C (96 ??F) Weight: 86.8 kg (191 lb 5.8 oz) Pertinent Exam Findings at Discharge: A&Ox3, NAD, VSS, incision site is clean/dry/intact with no signs of infection. SLR with lag. Negative homans sign bilateral, intact pedal pulses and no signson DVT. 5/5 dorsi and plantar flexion on the operative side. Discharge Disposition: Discharge to home or self care Code Status at Discharge: full Continue current pain control and PT Plan to d/c the pt to home on POD 1 IS instructed and encouraged. Discharge Instructions: Activity Instructions Discharge Activity: Driving restrictions -Do not drive for 2 weeks or while taking pain medications. Discharge Activity: Walking -You may walk as tolerated. Discharge activity: Resume normal activity Weight bear as tolerated with walker at all times. Keep current dressing intact for 7 days, remove on day 7 with daily changes there after. May begin to gently clean the incision with soap and water on post op day 7. Discharge activity: Shower -You may shower. No soaking. Diet Instructions Adult Discharge Diet Diet Type: Return to previous diet Other Instructions Ambulatory referral to Home Health Service Line: Home Health Primary disciplines requested: Physical Therapy Fdc Secondary disciplines requested: Occupational Therapy Home Health Services: Wound/ Ostomy Care Physician to follow patient's care (the person listed here will be responsible for signing ongoing orders): Referring Provider Requested Start of Care Date: Within 2 - 3 Days I attest that I or another qualified licensed provider saw the patient 90 days prior to or 30 days post admission and this face to face encounter meets the necessary Home Health requirements. The face to face encounter occurred on (date): 11/11/2018 The encounter with the patient was in whole, or in part, for the following medical condition, whichis the primary reason for home health care. (List medical condition): s/p TKA I certify that, based on my findings, the following services are medically necessary skilled home health services: Wound/ Ostomy Care Strengthening Exercises Therapy to Eval/ Treat Clinical findings that support the need for home care: Medical condition requiring skilled assessment/education Wound requiring care, assessment, and instruction I certify that my clinical findings support patient's homebound status. Homebound criteria met because: Requires assistance of another to leave home safely Call provider for: Temperature -Temperature greater than 101 degrees F Call provider for: persistent nausea or vomiting Call provider for: redness, tenderness, or signs of infection (pain, swelling, redness, odor or green/yellow discharge around incision site) Call provider for: severe uncontrolled pain Walker The [id number] evaluation was performed on: 11/11/2018 THANK YOU for choosing us to provide your health care. Your HEALTH AND SAFETY are important to us. We hope you feel your care on SCU was ALWAYS EXCELLENT! Please call SCU at [phone] if you have any questions regarding your care. Wishing you continued improvement during your recovery. The Staff of The Surgical Care Unit . Flakita Starks Crystal, Sharon, Sarah, Randy, Peggy, Hannah, Megan, Dana, Nancy, Cee, Suzan, Lu,Carmen, Ute and aSlud. Discharge Medications: Current Medications TAKE these medications ascorbic acid 500 mg tablet,chewable Commonly known as: VITAMIN C Take 1 tablet/chew tab (500 mg total) by mouth 2 (two) times a day. Notes to patient: FOR WOUND HEALING aspirin 81 mg tablet Take 81 mg by mouth daily. atorvastatin 40 mg tablet Commonly known as: LIPITOR Take 40 mg by mouth daily. celecoxib 200 mg capsule Commonly known as: CeleBREX Take 1 capsule (200 mg total) by mouth 2 (two) times a day for 14 days. Notes to patient: FOR PAIN AND SWELLING cetirizine 10 mg capsule Take 10 mg [...] mg total) by mouth daily with breakfast. Start taking on: 11/13/2018 Notes to patient: FOR PREVENTION OF ANEMIA folic acid 1 mg tablet Commonly known as: FOLVITE Take 1 mg by mouth daily. levothyroxine 112 mcg tablet Commonly known as: SYNTHROID, LEVOTHROID Take 112 mcg by mouth reverberatory skimmer before breakfast. oxyCODONE-acetaminophen 5-325 mg per tablet Commonly known as: PERCOCET Take 1-2 tablets by mouth every 4 (four) hours as needed for pain. Notes to patient: FOR PAIN pantoprazole DR 20 mg EC tablet Commonly known as: PROTONIX Take 20 mg by mouth daily. VENTOLIN HFA 90 mcg/actuation inhaler Generic drug: albuterol HFA Inhale 2 puffs 2 (two) times a day as needed. XARELTO 20 mg tablet Generic drug: rivaroxaban Take 20 mg by mouth daily. Outpatient Follow-Up: Future Appointments Date Time Provider Department Center 11/13/2018 To Be Determined Shagufta Gonzalez RN [facility] None 11/13/2018 To Be Determined RESOURCE PT [place] MONTERO [facility] None 11/17/2018 To Be Determined Miracle Pitt OT [facility] None 11/25/2018 9:30 AM ELIZABETH Ray [facility] Contact Information for Follow-ups [facility] Home Care Services Specialty: Home Health and Hospice [address] [place], [place] [id number] Next Steps: Follow up Questions: Service Line: Home Health Primary disciplines requested: Physical Therapy Fdc Secondary disciplines requested: Occupational Therapy Home Health Services: Wound/ Ostomy Care Physician to follow patient's care (the person listed here will be responsible for signing ongoing orders): Referring Provider Requested Start of Care Date: Within 2 - 3 Days I attest that I or another qualified licensed provider saw the patient 90 days prior to or 30 days post admission and this face to face encounter meets the necessary Home Health requirements. The face to face encounter occurred on (date): 11/11/2018 The encounter with the patient was in whole, or in part, for the following medical condition, whichis the primary reason for home health care. (List medical condition): s/p TKA I certify that, based on my findings, the following services are medically necessary skilled home health services: Wound/ Ostomy Care Strengthening Exercises Therapy to Eval/ Treat Clinical findings that support the need for home care: Medical condition requiring skilled assessment/education Wound requiring care, assessment, and instruction I certify that my clinical findings support patient's homebound status. Homebound criteria met because: Requires assistance of another to leave home safely Referral Status: Pending Authorization ELIZABETH Ray Specialty: Orthopedic Surgery, Physician Vessel Liner [address] [place] [id number] Next Steps: Go on 11/25/2018 Cosigned by Kemal Wright MD at 11/13/2018 10:23 AM FOAMITE MIXER ITE MIXER ITE MIXER documented in this encounter Discharge Instructions * Discharge Instr - Other Orders* Katlin Valencia RN - 11/12/2018 11:48 AM FOAMITE MIXER THANK YOU for choosing us to provide your health care. Your HEALTH AND SAFETY are important to us. We hope you feel your care on SCU was ALWAYS EXCELLENT! Please call SCU at [phone] if you have any questions regarding your care. Wishing you continued improvement during your recovery. The Staff of The Surgical Care Unit . Flakita Starks Crystal, Sharon, Sarah, Scott, Katlin Owen, Jaz, Nithya, Madison, Cee, Suzan, Lu,Carmen, Ute and Salud. ITE MIXER * Attachments The following attachments cannot be sent through Care Everywhere. * Joint Replacement Surgery (Discharge Care) (Iraqi) * How to Use an Incentive Spirometer (Discharge Care) (Iraqi) * DONA Hose (Discharge Care) (Iraqi) * Ascorbic Acid (Vitamin C) (By mouth) (Iraqi) * Celecoxib (By mouth) (Iraqi) * Iron Supplements (By mouth) (Iraqi) * Oxycodone/Acetaminophen (By mouth) (Iraqi) documented in this encounter Medications at Time of Discharge atorvastatin (LIPITOR) 40 mg tablet Take 40 mg by mouth daily. 10/09/2018 cyanocobalamin (Vitamin B-12) 1,000 mcg tabletIndications :Prevention of Vitamin B12 Deficiency Take 1,000 mcg by mouth daily. folic acid (FOLVITE) 1 mg tablet Take 1 mg by mouth daily. levothyroxine (SYNTHROID, LEVOTHROID) 112 mcg tablet Take 112 mcg by mouth reverberatory skimmer before breakfast. 07/21/[address] (PROTONIX) 20 mg EC tablet Take 20 mg by mouth daily. 10/09/2018 XARELTO 20 mg tablet Take 20 mg by mouth daily. 06/09/2018 ascorbic acid (VITAMIN C) 500 mg tablet,chewableIn dications:Vitamin deficiency prevention Take 1 tablet/chew tab (500 mg total) by mouth 2 (two) times a day. 60 tablet/chew tab 11/12/2018 12/12/2018 ergocalciferol (VITAMIN D) 50,000 unit capsuleIndication s:Vitamin D Deficiency Take 1 capsule (50,000 Units total) by mouth once a week. 4 capsule 11/07/2018 11/07/2019 ferrous sulfate 325 mg (65 mg of elemental iron) tabletIndications :Iron Deficiency Anemia,Anemia prevention Take 1 tablet (325 mg total) by mouth daily with breakfast. 30 tablet 11/13/2018 12/13/2018 albuterol HFA (VENTOLIN HFA) 90 mcg/actuation inhaler Inhale 2 puffs 2 (two) times a day as needed. 09/30/2018 10/02/2019 aspirin 81 mg tablet Take 81 mg by mouth daily. 06/09/2018 11/15/2018 celecoxib (CeleBREX) 200 mg capsuleIndication s:Postoperative Acute Pain,Pain Take 1 capsule (200 mg total) by mouth 2 (two) times a day for 14 days. 28 capsule 11/12/2018 10/02/2019 cetirizine 10 mg capsule Take 10 mg by mouth daily as needed. 10/02/2019 oxyCODONE-acetami nophen (PERCOCET) 5-325 mg per tabletIndications :Pain Take 1-2 tablets by mouth every 4 (four) hours as needed for pain. 63 tablet 11/12/2018 11/15/2018 documented as of this encounter Ordered Prescriptions Prescription Sig Dispense Quantity Refills Last Filled Start Date End Date oxyCODONE-acetamin ophen (PERCOCET) 5-325 mg per tabletIndications: Pain Take 1-2 tablets by mouth every 4 (four) hours as needed for pain. 63 tablet 11/12/2018 9 ferrous sulfate 325 mg (65 mg of elemental iron) tabletIndications: Iron Deficiency Anemia,Anemia prevention Take 1 tablet (325 mg total) by mouth daily with breakfast. 30 tablet 11/13/2018 9 celecoxib (CeleBREX) 200 mg capsuleIndications :Postoperative Acute Pain,Pain Take 1 capsule (200 mg total) by mouth 2 (two) times a day for 14 days. 28 capsule 11/12/2018 0 ascorbic acid (VITAMIN C) 500 mg tablet,chewableInd ications:Vitamin deficiency prevention Take 1 tablet/chew tab (500 mg total) by mouth 2 (two) times a day. 60 tablet/chew tab 11/12/2018 9 documented in this encounter Discharge Disposition Disposition Code Departure Means Destination Discharge to home, home health skilled care documented in this encounter Progress Notes * Emily Gurrola [facility] - 11/12/2018 2:38 PM CST Patient has been on 20 mg rivaroxaban for years (hx recurrent VTEs, stroke). She is restarting her 20 mg dose post-op. Student discussed s/sx of a clot, s/sx of a bleed, and drug interactions. She didn't have any questions and was provided a handout on Xarelto for reference. ITE MIXER * Marilee Powell, OT - 11/12/2018 11:57 AM CST Occupational Therapy Evaluation 11/12/18 0823 General Session Type Evaluation OT Received On 11/12/18 Subjective Agreeable to Therapy Family/Caregiver Present No Precautions Fall risk Precautions Precautions Knee Weight Bearing Restrictions Yes RLE Weight Bearing WBAT Home Living Type of Home House Home Layout One level;Basement (Pt lives in basement; 14 steps with rail) Home Access Stairs to enter without rails Entrance Stairs-Rails None Entrance Stairs-Number of Steps 2 Bathroom Shower/Tub Walk-in shower with threshold Bathroom Toilet Standard Bathroom Equipment Shower chair;Commode Bathroom Accessibility Accessible via walker Home Mobility Equipment Wheeled walker Prior Function Level of [place] Independent with ADLs;Independent with homemaking with ambulation (disability due to shdr/neck/back limitations work/accident) Lives With Son;Other (Comment) (DIL) Receives Help From Family Driving Yes Current License Yes UE Dressing UE Dressing: Level of assistance Set up UE Dressing: Assistance with Thread RUE;Thread LUE;government program manager head;Pull down in back LE Dressing LE Dressing: Level of assistance Stand by LE Dressing: Assistance with Thread RLE into pants;Thread LLE into pants;Pull up over hips Toileting Toileting: Where assessed Bedside Commode Toileting: Level of assistance Stand by Toileting: Assistance with Clothing management up;Clothing management down;Perineal hygiene Toilet Transfers Toilet Transfer From Bed Toilet Transfer Type To and from Toilet Transfer to Standard bedside commode Toilet Transfer Technique Stand pivot Toilet Transfer: Equipment No device Toilet Transfers Contact guard;Supervision Pain Assessment Pain Assessment 0-10 Pain Score 4 Pain Type Surgical pain Pain Descriptors Sore Pain Frequency Constant/continuous Pain Onset Ongoing Clinical Progression Gradually improving (due to meds) Pain Interventions Repositioned Transfer 1 Transfer From 1 Sit Transfer Type 1 To and from Transfer to 1 Stand Technique 1 Sit to stand;Stand to sit;Stand pivot Transfer Device 1 Wheeled walker Transfer Level of Assistance 1 Contact guard;Close supervision Assessment Prognosis Excellent Problem List Decreased functional mobility;Decreased ADL independence Recommendation/Plan OT Recommendation Home with family OT Frequency Daily (M-S) Treatment/Interventions ADLs/ADL retraining;Functional transfer training OT Equipment Recommended (Pt states that she has a w/w ) Progress Improving as expected OT - OK to Discharge No OT Evaluation Complete Yes ITE MIXER * James Aviles, PT - 11/12/2018 9:34 AM CST Physical Therapy 11/12/18 0802 General Chart Reviewed Yes Session Type Evaluation PT Received On 11/12/18 Subjective Agreeable to Therapy Subjective Comment pt reports itchy sensation in RLE Family/Caregiver Present No Physical Therapy-Patient Goal return home Precautions Precautions Knee Weight Bearing Restrictions Yes RLE Weight Bearing WBAT Home Living Type of Home House Home Layout Two level (pt lives in basement, will use butt scoot method for descent) Home Access Stairs to enter without rails Entrance Stairs-Rails None Entrance Stairs-Number of Steps 2 Home Mobility Equipment Wheeled walker;Wheelchair-manual;Scooter (does not use at PLOF) Prior Function Level of [place] Independent with ADLs;Independent functional transfers;Independent with ambulation Lives With Son;Other (Comment) (son and daughter in law) Receives Help From Family Driving Yes Pain Assessment Pain Assessment 0-10 Pain Score 5 - Moderate pain Pain Type Surgical pain Pain Location Knee Pain Orientation Right Cognition Overall Cognitive Status WFL Orientation Oriented X4 (person, place, time, situation) Balance Balance Yes Static Sitting Balance Static Sitting-Balance Support Bilateral upper extremity supported;Feet supported Static Sitting-Level of Assistance Independent Static Standing Balance Static Standing-Balance Support Bilateral upper extremity supported Static Standing-Level of Assistance Close supervision Bed Mobility Bed Mobility Yes Bed Mobility 1 Bed Mobility From 1 Supine Bed Mobility Type 1 To Bed Mobility to 1 Edge of bed Level of Assistance 1 Independent Transfer 1 Transfer From 1 Bed Transfer Type 1 To Transfer to 1 Stand Technique 1 Sit to stand;Stand to sit Transfer Device 1 Wheeled walker Transfer Level of Assistance 1 Contact guard Ambulation 1 Distance (ft) 1 140 Surface 1 Level tile Device 1 Wheeled walker Assistance 1 Contact guard Gait: Requires verbal cues to 1 Use assistive device safely;Improve upright posture Quality of Gait 1 step to pattern, dec WB on RLE, dec flat foot on RLE, forward lean RLE Assessment RLE Assessment (AROM in sitting 5-70, gross strength 3/5) LLE Assessment LLE Assessment WFL Assessment Potential/Prognosis Good Problem List Decreased strength;Decreased range of motion;Decreased mobility;Decreased endurance;Pain Plan Plan If this is the last note, consider this the discharge summary Recommendation/Plan PT Recommendation/Plan Home with family;Home Health PT PT Frequency Daily;Twice a day;Other (comment) (OD sat-sun) Treatment/Interventions Functional transfer training;LE Strengthening/ROM;Bed mobility;Gait training;Stair Mobility Training PT Equipment Recommended None (pt owns FWW) PT Evaluation Complete Yes Sedation Scales Pasero Opioid-Induced Sedation Scale (POSS) 1 ITE MIXER * Theodore Raya, [facility] - 11/11/2018 7:52 PM CST Xarelto dose changed to 10mg po qd for 12 days post knee op for vte prophylaxis ITE MIXER * Robel Gurrola, [facility] - 11/11/2018 11:18 AM CST Dose adjusted per surgical prophylaxis protocol, for weight less than 80 kg give 1000 mg, for weight 80 kg or greater give 1500 mg beginning 1-2 hours prior to incision. ITE MIXER documented in this encounter H&P Notes * Kemal Wright MD - 11/11/2018 12:27 PM CST I have reviewed the H&P, examined the patient, and endorse the findings as written. Plan of Care : Based on the above findings, I consider Janine Vidal to be an acceptable risk for : Procedure(s): Right total knee arthroplasty [employer], TENS, CPM in hospital, cooling unit, 1liter beta rinse, and Depuy cement and quick set cement ITE MIXER Source Note - Ever Nino PA - 11/06/2018 4:19 PM FOAMITE MIXER [facility] Orthopedics and Sports Medicine Janine Vidal Chief Complaint. Right knee OA HPI. Patient is a 58 y.o. female patient of Dr. Wright. She has failed conservative treatment and is now a candidate for right Total knee arthroplasty Past Medical History: Diagnosis Date ??? Cervical [...] ??? ROTATOR CUFF REPAIR ??? TUBAL LIGATION HOME MEDICATIONS : albuterol HFA (VENTOLIN HFA) 90 mcg/actuation inhaler aspirin 81 mg tablet atorvastatin (LIPITOR) 40 mg tablet cetirizine 10 mg capsule cyanocobalamin (Vitamin B-12) 1,000 mcg tablet levothyroxine (SYNTHROID, LEVOTHROID) [address] (PROTONIX) 20 mg EC tablet XARELTO 20 mg tablet Allergies Allergen Reactions ??? Codeine Shortness of breath ??? Morphine Hypotension ??? Penicillins Shortness of breath ??? Latex Rash ??? Vancomycin Headache and Other (See comments) Headache, flushed face, redmans Social History Substance Use Topics ??? Smoking status: Current Every Day Smoker Packs/day: 1.00 ??? Smokeless tobacco: Current User Comment: quitting now, 1 pack last 2-3 days ??? Alcohol use No Family History Problem Relation Age of Onset ??? Hypertension Mother ??? Cancer Mother ??? Arthritis Mother ??? Diabetes Mother ??? Heart disease Father ??? Diabetes Father ??? Clotting disorder Sister ??? Diabetes Sister ??? Stroke Son ??? Diabetes Son Review of Systems: Constitutional: Negative for activity change, appetite change, [...] is not nervous/anxious and is not hyperactive. ?? Physical Exam. BP 136/78 Pulse 57 Ht 162.6 cm (5' 4 ) Wt 83.9 kg (185 lb) BMI 31.76 kg/m?? Right knee ?? Inspection The patient has normal inspection of the right knee. Swelling: mild Surgical scar/wound: absent. Skin temperature: normal Alignment: varus Gait: antalgic ?? Palpation Tenderness: present. The tenderness is located in the medial joint line, lateral joint line and patella. Patellar tracking: normal Crepitus: positive Patella grind: positive ?? Range of motion The patient has reduced range of motion of the right knee. The patient has pain with range of motion of the right knee. Flexion contracture: yes. Degrees: 11-20 Extensor lag: no. Stability The patient has normal AP and ML stability of the right knee. AP stability: stable ML stability: stable ?? Strength The patient has 5/5 strength thoughout right knee. Th patient has 5/5 strength throughout with exceptions as noted below . Knee extension: 4/5 and pain limits strength Knee flexion: 4/5 and pain limits strength ? Neurovascular The patient has normal vascular on the right side of their body. The patient has normal sensation on the right side of their body. ?? Special tests Gilberto: medial postive lateral positive ?? Comments: No pain with internal x-rays taken of hips Left knee ?? Inspection The patient has normal inspection of the left knee. Swelling: mild Effusion: 1+ Surgical scar/wound: absent. Skin temperature: normal Alignment: neutral Gait: normal ?? Palpation Tenderness: present. The tenderness is located in the patella and medial joint line. Patellar tracking: normal Crepitus: positive Patella grind: positive ?? Range of motion The patient has normal range of motion of the left knee. The patient has pain with range of motion of the left knee. ?? Stability The patient has normal AP and ML stabiltiy of the left knee. ?? Strength The patient has 5/5 strength throughout. The patient has 5/5 strength throughout with exceptions as noted below. ?? Neurovascular The patient has normal vascular on the left side of their body. ?? Estimated body mass index is 32.27 kg/m?? as calculated from the following: Height as of 11/03/18: 162.6 cm (5' 4 ). Weight as of 11/03/18: 85.3 kg (188 lb). Radiology: ?? Severe osteoarthrosis right knee tricompartmental arthrosis no fractures subluxation or dislocationflexion contracture noted Laboratory. Lab on 11/03/2018 Component Date Value Ref Range Status ??? WBC 11/03/2018 7.6 3.8 - 9.9 K/cumm Final ??? Hgb 11/03/2018 13.9 11.9 - 15.5 g/dL Final ??? Hct 11/03/2018 41.8 35.6 - 45.5 % Final ??? Plt 11/03/2018 295 150 - 400 K/cumm Final ??? MPV 11/03/2018 10.1 9.1 - 12.3 fL Final ??? RBC 11/03/2018 4.94 3.90 - 5.20 M/cumm Final ??? MCV 11/03/2018 84.6 81.3 - 96.4 fL Final ??? MCH 11/03/2018 28.1 27.1 - 33.3 pg Final ??? MCHC 11/03/2018 33.3 32.3 - 35.7 g/dL Final ??? RDW CV 11/03/2018 13.5 11.1 - 14.9 % Final ??? RDW SD 11/03/2018 42.1 35.7 - 48.1 fL Final ??? NRBC Abs 11/03/2018 0.00 0.00 - 0.01 K/cumm Final ??? Sodium 11/03/2018 141 135 - 145 mmol/L Final ??? Potassium, pl 11/03/2018 3.3 3.3 - 4.9 mmol/L Final ??? Chloride 11/03/2018 105 97 - 110 mmol/L Final ??? CO2 11/03/2018 23 22 - 32 mmol/L Final ??? Anion Gap 11/03/2018 13 2 - 15 mmol/L Final ??? BUN 11/03/2018 6* 8 - 25 mg/dL Final ??? Creatinine 11/03/2018 0.93 0.60 - 1.10 mg/dL Final ??? Glucose 11/03/2018 102 70 - 199 mg/dL Final ??? Calcium 11/03/2018 9.5 8.5 - 10.3 mg/dL Final ??? Bilirubin, total 11/03/2018 0.5 0.1 - 1.2 mg/dL Final ??? Protein, pl 11/03/2018 7.8 6.5 - 8.5 g/dL Final ??? Albumin 11/03/2018 4.5 3.5 - 5.0 g/dL Final ??? Alk phos 11/03/2018 117 40 - 130 Units/L Final ??? ALT 11/03/2018 18 7 - 45 Units/L Final ??? AST 11/03/2018 17 10 - 45 Units/L Final ??? PT 11/03/2018 17.3* 9.5 - 13.0 sec Final ??? INR 11/03/2018 1.52* 0.90 - 1.20 Final ??? aPTT 11/03/2018 42.4* 25.0 - 37.0 sec Final ??? Color, ur 11/03/2018 Yellow Yellow Final ??? Clarity, ur 11/03/2018 Clear Clear Final ??? Specific gravity, ur 11/03/2018 1.003* 1.010 - 1.025 Final ??? pH, urine 11/03/2018 6.5 Final ??? Protein, ur ql 11/03/2018 Negative Negative Final ??? Glucose, ur ql 11/03/2018 Negative Negative Final ??? Ketones, ur 11/03/2018 Negative Negative Final ??? Bilirubin, ur 11/03/2018 Negative Negative Final ??? Blood, ur 11/03/2018 Negative Negative Final ??? Urobilinogen, ur 11/03/2018 0.2 mg/dL Final ??? Nitrite, ur 11/03/2018 Negative Negative Final ??? Leukocyte esterase, ur 11/03/2018 Negative Negative Final ??? Vitamin D, 25-hydroxy 11/03/2018 12* 30 - 80 ng/mL Final ??? Neutrophil absolute 11/03/2018 4.8 1.7 - 6.5 K/cumm Final ??? Immature granulocyte absolute 11/03/2018 0.0 0.0 - 0.1 K/cumm Final ??? Lymphocytes absolute 11/03/2018 2.1 0.8 - 3.3 K/cumm Final ??? Monocyte absolute 11/03/2018 0.4 0.2 - 0.8 K/cumm Final ??? Eosinophils absolute 11/03/2018 0.2 0.0 - 0.5 K/cumm Final ??? Basophils, abs 11/03/2018 0.0 0.0 - 0.1 K/cumm Final ??? Neutrophils 11/03/2018 63.0 % Final ??? Immature granulocytes 11/03/2018 0.3 % Final ??? Lymphocytes 11/03/2018 27.3 % Final ??? Monocytes 11/03/2018 5.9 % Final ??? Eosinophils 11/03/2018 3.0 % Final ??? Basophils 11/03/2018 0.5 % Final ??? GFR 11/03/2018 68 mL/min/1.73 m2 Final Impression and Recommendations. Patient will proceed with right [facility] It is estimated they will have a 1-2 night stay following the procedure. The risk and the benefits were discussed in detail and they verbalized an understanding and signs an informed consent. Pre-op antibiotic will be Vancomycin per weight. DVT prophylaxis will be Xarelton. Celebrex post op:Yes. Post op labs needed: No Ever Nino PA-C, ATC Cosigned by Kemal Wright MD at 11/09/2018 10:20 AM FOAMITE MIXER ITE MIXER ITE MIXER * Ever Nino PA - 11/06/2018 4:19 PM CST [facility] [place] Sports Medicine Janine Vidal Chief Complaint. Right knee OA HPI. Patient is a 58 y.o. female patient of Dr. Wright. She has failed conservative treatment and is now a candidate for right Total knee arthroplasty Past Medical History: Diagnosis Date ??? Cervical [...] ??? ROTATOR CUFF REPAIR ??? TUBAL LIGATION HOME MEDICATIONS : albuterol HFA (VENTOLIN HFA) 90 mcg/actuation inhaler aspirin 81 mg tablet atorvastatin (LIPITOR) 40 mg tablet cetirizine 10 mg capsule cyanocobalamin (Vitamin B-12) 1,000 mcg tablet levothyroxine (SYNTHROID, LEVOTHROID) [address] (PROTONIX) 20 mg EC tablet XARELTO 20 mg tablet Allergies Allergen Reactions ??? Codeine Shortness of breath ??? Morphine Hypotension ??? Penicillins Shortness of breath ??? Latex Rash ??? Vancomycin Headache and Other (See comments) Headache, flushed face, redmans Social History Substance Use Topics ??? Smoking status: Current Every Day Smoker Packs/day: 1.00 ??? Smokeless tobacco: Current User Comment: quitting now, 1 pack last 2-3 days ??? Alcohol use No Family History Problem Relation Age of Onset ??? Hypertension Mother ??? Cancer Mother ??? Arthritis Mother ??? Diabetes Mother ??? Heart disease Father ??? Diabetes Father ??? Clotting disorder Sister ??? Diabetes Sister ??? Stroke Son ??? Diabetes Son Review of Systems: Constitutional: Negative for activity change, appetite change, [...] is not nervous/anxious and is not hyperactive. ?? Physical Exam. BP 136/78 Pulse 57 Ht 162.6 cm (5' 4 ) Wt 83.9 kg (185 lb) BMI 31.76 kg/m?? Right knee ?? Inspection The patient has normal inspection of the right knee. Swelling: mild Surgical scar/wound: absent. Skin temperature: normal Alignment: varus Gait: antalgic ?? Palpation Tenderness: present. The tenderness is located in the medial joint line, lateral joint line and patella. Patellar tracking: normal Crepitus: positive Patella grind: positive ?? Range of motion The patient has reduced range of motion of the right knee. The patient has pain with range of motion of the right knee. Flexion contracture: yes. Degrees: 11-20 Extensor lag: no. Stability The patient has normal AP and ML stability of the right knee. AP stability: stable ML stability: stable ?? Strength The patient has 5/5 strength thoughout right knee. Th patient has 5/5 strength throughout with exceptions as noted below . Knee extension: 4/5 and pain limits strength Knee flexion: 4/5 and pain limits strength ? Neurovascular The patient has normal vascular on the right side of their body. The patient has normal sensation on the right side of their body. ?? Special tests Gilberto: medial postive lateral positive ?? Comments: No pain with internal x-rays taken of hips Left knee ?? Inspection The patient has normal inspection of the left knee. Swelling: mild Effusion: 1+ Surgical scar/wound: absent. Skin temperature: normal Alignment: neutral Gait: normal ?? Palpation Tenderness: present. The tenderness is located in the patella and medial joint line. Patellar tracking: normal Crepitus: positive Patella grind: positive ?? Range of motion The patient has normal range of motion of the left knee. The patient has pain with range of motion of the left knee. ?? Stability The patient has normal AP and ML stabiltiy of the left knee. ?? Strength The patient has 5/5 strength throughout. The patient has 5/5 strength throughout with exceptions as noted below. ?? Neurovascular The patient has normal vascular on the left side of their body. ?? Estimated body mass index is 32.27 kg/m?? as calculated from the following: Height as of 11/03/18: 162.6 cm (5' 4 ). Weight as of 11/03/18: 85.3 kg (188 lb). Radiology: ?? Severe osteoarthrosis right knee tricompartmental arthrosis no fractures subluxation or dislocationflexion contracture noted Laboratory. Lab on 11/03/2018 Component Date Value Ref Range Status ??? WBC 11/03/2018 7.6 3.8 - 9.9 K/cumm Final ??? Hgb 11/03/2018 13.9 11.9 - 15.5 g/dL Final ??? Hct 11/03/2018 41.8 35.6 - 45.5 % Final ??? Plt 11/03/2018 295 150 - 400 K/cumm Final ??? MPV 11/03/2018 10.1 9.1 - 12.3 fL Final ??? RBC 11/03/2018 4.94 3.90 - 5.20 M/cumm Final ??? MCV 11/03/2018 84.6 81.3 - 96.4 fL Final ??? MCH 11/03/2018 28.1 27.1 - 33.3 pg Final ??? MCHC 11/03/2018 33.3 32.3 - 35.7 g/dL Final ??? RDW CV 11/03/2018 13.5 11.1 - 14.9 % Final ??? RDW SD 11/03/2018 42.1 35.7 - 48.1 fL Final ??? NRBC Abs 11/03/2018 0.00 0.00 - 0.01 K/cumm Final ??? Sodium 11/03/2018 141 135 - 145 mmol/L Final ??? Potassium, pl 11/03/2018 3.3 3.3 - 4.9 mmol/L Final ??? Chloride 11/03/2018 105 97 - 110 mmol/L Final ??? CO2 11/03/2018 23 22 - 32 mmol/L Final ??? Anion Gap 11/03/2018 13 2 - 15 mmol/L Final ??? BUN 11/03/2018 6* 8 - 25 mg/dL Final ??? Creatinine 11/03/2018 0.93 0.60 - 1.10 mg/dL Final ??? Glucose 11/03/2018 102 70 - 199 mg/dL Final ??? Calcium 11/03/2018 9.5 8.5 - 10.3 mg/dL Final ??? Bilirubin, total 11/03/2018 0.5 0.1 - 1.2 mg/dL Final ??? Protein, pl 11/03/2018 7.8 6.5 - 8.5 g/dL Final ??? Albumin 11/03/2018 4.5 3.5 - 5.0 g/dL Final ??? Alk phos 11/03/2018 117 40 - 130 Units/L Final ??? ALT 11/03/2018 18 7 - 45 Units/L Final ??? AST 11/03/2018 17 10 - 45 Units/L Final ??? PT 11/03/2018 17.3* 9.5 - 13.0 sec Final ??? INR 11/03/2018 1.52* 0.90 - 1.20 Final ??? aPTT 11/03/2018 42.4* 25.0 - 37.0 sec Final ??? Color, ur 11/03/2018 Yellow Yellow Final ??? Clarity, ur 11/03/2018 Clear Clear Final ??? Specific gravity, ur 11/03/2018 1.003* 1.010 - 1.025 Final ??? pH, urine 11/03/2018 6.5 Final ??? Protein, ur ql 11/03/2018 Negative Negative Final ??? Glucose, ur ql 11/03/2018 Negative Negative Final ??? Ketones, ur 11/03/2018 Negative Negative Final ??? Bilirubin, ur 11/03/2018 Negative Negative Final ??? Blood, ur 11/03/2018 Negative Negative Final ??? Urobilinogen, ur 11/03/2018 0.2 mg/dL Final ??? Nitrite, ur 11/03/2018 Negative Negative Final ??? Leukocyte esterase, ur 11/03/2018 Negative Negative Final ??? Vitamin D, 25-hydroxy 11/03/2018 12* 30 - 80 ng/mL Final ??? Neutrophil absolute 11/03/2018 4.8 1.7 - 6.5 K/cumm Final ??? Immature granulocyte absolute 11/03/2018 0.0 0.0 - 0.1 K/cumm Final ??? Lymphocytes absolute 11/03/2018 2.1 0.8 - 3.3 K/cumm Final ??? Monocyte absolute 11/03/2018 0.4 0.2 - 0.8 K/cumm Final ??? Eosinophils absolute 11/03/2018 0.2 0.0 - 0.5 K/cumm Final ??? Basophils, abs 11/03/2018 0.0 0.0 - 0.1 K/cumm Final ??? Neutrophils 11/03/2018 63.0 % Final ??? Immature granulocytes 11/03/2018 0.3 % Final ??? Lymphocytes 11/03/2018 27.3 % Final ??? Monocytes 11/03/2018 5.9 % Final ??? Eosinophils 11/03/2018 3.0 % Final ??? Basophils 11/03/2018 0.5 % Final ??? GFR 11/03/2018 68 mL/min/1.73 m2 Final Impression and Recommendations. Patient will proceed with right [facility] It is estimated they will have a 1-2 night stay following the procedure. The risk and the benefits were discussed in detail and they verbalized an understanding and signs an informed consent. Pre-op antibiotic will be Vancomycin per weight. DVT prophylaxis will be Xarelton. Celebrex post op:Yes. Post op labs needed: No Ever Nino PA-C, ATC Cosigned by Kemal Wright MD at 11/09/2018 10:20 AM FOAMITE MIXER ITE MIXER ITE MIXER documented in this encounter Nursing Notes * Lexie Kurtz RN - 11/12/2018 4:19 PM CST 1510 Discharged to home in stable condition. Escorted to car per wheelchair. ITE MIXER * Lexie Kurtz RN - 11/12/2018 1:56 PM CST Discharge instructions given with home pharmacy delivery at bedside. No new equipment issued. All belongings packed. IV removed. Son here to take home. ITE MIXER documented in this encounter Miscellaneous Notes * Plan of Care - Zaynab Luevano PTA - 11/12/2018 2:34 PM CST Problem: PT Misc Goal: STG - Misc 3 Pt to ambulate 300' indep with fww consistently, to increase functional independence. Outcome: Progressing ITE MIXER * Plan of Care - Lexie Kurtz RN - 11/12/2018 1:55 PM CST Goals: Clinical Goals for the Shift: pt safety, comfort, mobility, VSS, oral intake and UOP qs Summary: all goals met for stable discharge to home ITE MIXER * Plan of Care - Mariela Yang RN - 11/12/2018 11:04 AM CST I spoke with pt and she lives with son and [id number] in [place]. She lives in the basement. Its a 2 level home and 2 stairs to enter and then steps to basement...approximately 10. She was indep with adls and ambulation. She has a wheeled walker and owns a wc, scooter, cane and BSC also and wants [facility], i sent referral to Heather for home care. I had explained pt choice list and she was fine with [facility]...she did NOT want [facility]. Goal is to return home with help of her family. ITE MIXER * Plan of Care - Heather Lombardi RN - 11/12/2018 11:00 AM CST PT SET UP FOR HOME CARE WITH [facility] [phone] ITE MIXER * Plan of Care - Berto Jacobsen RN - 11/12/2018 3:47 AM CST Goals: Clinical Goals for the Shift: Pt will be hemodynamically stable, pain control. Summary: VSS. Pt reports pain controlled with prescribed PO pain medication. Activity: ??? Ability to avoid complications of mobility impairment will improve Progressing ??? Range of joint motion will improve Progressing Health Behavior: ??? Understanding of discharge needs will improve Progressing Lack of Knowledge: ??? Ability to state ways to decrease the risk of falls will improve Progressing Physical Regulation: ??? Ability to maintain clinical measurements within normal limits will improve Progressing ??? Postoperative complications will be avoided or minimized Progressing Safety: ??? Will remain free from falls Progressing ??? Will remain free from injury from falls Progressing ??? Will remain free from falls and injury in home environment Progressing Self-Care: ??? Ability to meet self-care needs will improve Progressing Sensory: ??? Pain level will decrease Progressing ITE MIXER * Perioperative Nursing Note - Tracy Austin RN - 11/11/2018 5:04 PM CST 1645 radiology staff performed x ray at bedside. r knee flexed to 90 degrees with pillows. ITE MIXER * Op Note - Kemal Wright MD - 11/11/2018 2:48 PM CST Operative Report SURGEON: Kemal Wright MD SURGICAL TEAM: Surgeon(s) and Role: * Kemal Wright MD - Primary DATE OF SURGERY : 11/11/2018 PREOPERATIVE DIAGNOSIS: See preoperative H and P POSTOPERATIVE DIAGNOSIS: Post-op Diagnosis * Primary osteoarthritis of right knee [M17.11] PROCEDURE: Right total knee arthroplasty (R) ANESTHESIA: Choice PA-C: [employer] IMPLANTS: Implant Name Type Inv. Item Serial No. Windmill Mechanic Lot No. [id number] No. Used [employer]LAS [employer] NEPHEW/RICH[employer]/ORTHO [id number] LEGION 9MM DISHED KNEE 3-4 INSERT TIBIAL XLPE - [id number] & NEPHEW/RICHCO/ORTHO [id number] LEGION 9MM DISHED KNEE 3-4 INSERT TIBIAL XLPE [employer]hew/[employer]Ortho [id number] Right 1 [employer]PHEW/RICH[employer]/ORTHO [id number] LEGION CEMENTED MALE TAPER KNEE RIGHT 4 BASEPLATE TIBIAL TITANIUM - [id number] IS[employer] NEPHEW/RICHCO/ORTHO [id number] LEGION CEMENTED MALE TAPER KNEE RIGHT 4 BASEPLATE TIBIAL TITANIUM [employer]hew/Rich[employer]/Ortho [id number] Right 1 [id number] size 4 right cruciate retaining legion oxinium femoral componenet [employer]las [employer] Nephew [id number] Right 1 [employer] [id number] PALACOS R+G HIGH VISCOSITY CEMENT BONE GENTAMICIN ARTHROPLASTY - [id number] [employer] [id number] PALACOS R+G HIGH VISCOSITY CEMENT BONE GENTAMICIN ARTHROPLASTY [employer] [id number] Right 1 OPERATIVE DETAILS Estimated Blood Loss: No blood loss documented. Operation in detail: OPERATIVE INDICATION Patient failed conservative management of knee osteoarthrosis and elected to have the above-named procedure. Informed consent was obtained from the patient. Patient understood the risks and benefits of the procedure including but not limited to , stroke, bleeding, infection, damage to nerves, arteries, veins, loss of limb, loss of life, DVT, need for additional procedures. Informed consent was obtained. Consent form was signed. OPERATION IN DETAIL Patient was taken to the OR. anesthesia was performed. The lower extremity was cleaned with alcohol and prepped and draped in standard sterile technique with ChloraPrep. Standard time-out was performed. Operative extremity was identified and also marked preoperatively. Marked out a standard arthrotomy. Sealed the incision with Ioban. Gloves were changed and changed every 30 minutes throughout the procedure. Skin incision made. Further dissection with the Bovie. Quad, VMO, patella tendon marked with a fresh marking pen. Standard arthrotomy was performed. Medial release was performed. osteophytes were noted and removed. Fat pad was removed anteriorly. The soft tissue of the distal femur was removed . The patella was denervated. Whitesides line was marked and theintramedullary canal was reamed and a 9mm distal femoral cut was made. The femur sized. Anterior cut, posterior cut, and chamfer cuts were made. Grand piano sign was noted. Appropriate resection was obtained. Resected the ACL,and medial and lateral menisci. Subluxed the tibia anteriorly with extramedullary guide, made an appropriate tibial cut. Checked our flexion-extension gaps, they were well balanced. . Trialed were placed and good balanceof flexion and extension was noted The Patella tracked well. Exsanguinated the lower extremity. Inflated the tourniquet, removed the trial components. Bone graft to the distal femur. Injected periosteum around the femur, posterior capsule and medial and lateral gutters with cocktail solution, carefully aspirating as it was injected. Removed any bloody and bony debris with Pulsavac. Dried the bony surfaces. Used antibiotic-impregnated cement to cement the tibial component, femoral component, poly. During cement hardening, all additional cement was removed. The knee was placed in full extension. During this portion of the portion of the procedure, an additional liter of iced tea, additional liter of warm saline was used to irrigate out the knee. Once the cement hardened, the tourniquet was released. Knee was taken through a range of motion. Good balance in flexion and extension was noted the patella tracked well. Placed one gram of vancomycin in the knee and then closed the knee in standard fashion. Needle counts, sponge counts, instruments counts were correct at the end of the case. POSTOPERATIVE PLAN Patient will follow standard total knee arthroplasty protocol. Thank you for allowing me to participate in the patient's care. Complications: None Condition on Discharge from the operating room was stable Kemal Wright MD Date: 11/11/2018 Time: 8:47 PM ITE MIXER * Pre-Procedure Instructions - Brigette Sanchez RN - 10/28/2018 10:38 AM FOAMITE MIXER We are pleased that you and your doctor have chosen [facility] for your surgery. We hope that the following information will help make your visit a pleasant one. Surgery Date: 11/11/2018 Before your surgery: ?? Notify your doctor of ANY change in your health such as a cold, sore throat, fever, any infection or a change in the problem for which you are having your surgery. ?? Follow any instructions given to you by your doctor or surgeon. Check with your doctor if you need to STOP taking: ?? Aspirin (ordered by your doctor) ?? Plavix ?? Coumadin One week before surgery STOP taking: ?? All herbal supplements ?? Aspirin (not ordered by your doctor) ?? Aleve, Advil, Motrin, Ibuprofen, or other similar medications (Tylenol is okay). 24 hours before your surgery: ?? No smoking or alcoholic drinks. ?? Stop taking your: Metformin/Glucophage. Night before your surgery: ?? Do not eat or drink anything after midnight. ?? Take only half of your normal PM Insulin dose. ?? Follow surgeon's instructions for anti-bacterial shower night before and morning of surgery. Day of surgery: ?? Do not swallow any water when you brush your teeth. ?? Do not take your AM insulin dose or any diabetic medicines ?? ONLY take these pills with a tiny sip of water. Pre-Surgery Instructions: Medication Instructions ??? levothyroxine (SYNTHROID, LEVOTHROID) 112 mcg tablet ?? Use no make-up, nail guatemalan, lotions, oils or powders on your skin. ?? Wear comfortable clothes that will not be tight in the area of your surgery. ?? Leave all valuables and jewelry (including all body piercing jewelry) at home. ?? If you use a CPAP machine, please bring it with you to wear after your surgery. ?? Please bring your a photo ID and insurance cards with you. ?? Check in at the Registration Desk. ?? If you are 17 years old or younger, a parent or guardian must come with you. After your Outpatient Surgery: ?? You must have a responsible adult to drive you home, you will not be allowed to drive or take a cab home. ?? We recommend you have someone stay with you for 24 hours after your surgery. What to bring if you are spending the night with us: ?? Bring toiletry items such as: robe, slippers, toothbrush, toothpaste, brush or comb. ?? Bring contact lens, hearing aids, glass cases and denture container if you use any of these items. ?? The hospital will provide you with a gown. Questions or concerns: ?? If you have any questions or concerns regarding your procedure, contact your surgeon as soon as possible. ?? If you have questions regarding your Pre-Admission Testing, please call us. We can be reached atthe number posted at the top of the page. ITE MIXER documented in this encounter Plan of Treatment Not on file documented as of this encounter Procedures Procedure Name Priority Date/Time Associated Diagnosis Comments XR KNEE RIGHT 1 OR 2 VIEWS STAT 11/11/2018 4:44 PM FOAMITE MIXER ARTHROPLASTY TOTAL KNEE 11/11/2018 1:52 PM FOAMITE MIXER Primary osteoarthritis of right knee Special Needs [employer], TENS, CPM in hospital, cooling unit, 1 liter beta rinse, and Depuy cement and quick set cement APTT STAT 11/11/2018 11:54 AM FOAMITE MIXER PROTIME-INR STAT 11/11/2018 11:54 AM FOAMITE MIXER SURGICAL PATHOLOGY Routine 11/11/2018 9: 58 AM FOAMITE MIXER Primary osteoarthritis of right knee documented in this encounter Results * XR Knee Right 1 or 2 View (11/11/2018 4:44 PM FOAMITE MIXER) Anatomical Region Laterality Modality Lower Extremities, Knee Right Computed Radiography 11/11/2018 4:47 PM FOAMITE MIXER Impressions 11/11/2018 4:48 PM FOAMITE MIXER 1. ??Status post right total knee arthroplasty; femoral and tibial components only. Electronically signed by: Yann Trinidad Jr., M.D. Narrative 11/11/2018 4:48 PM FOAMITE MIXER XR KNEE RIGHT 1 OR 2 VIEWS HISTORY: post op. ??Primary osteoarthritis of right knee. COMPARISON: None available. VIEWS: Portable AP and 2 crosstable lateral views FINDINGS: Total knee prosthesis is in place. ??Femoral and tibial components articulate satisfactorily in these projections. ??Small amount of opaque cement is present at interface between each component and underlying bone. ??A patellar prosthetic component is not present. ??Small amount of air is present in the joint space and in overlying soft tissues. Procedure Note Yann Trinidad Jr., MD - 11/11/2018 XR KNEE RIGHT 1 OR 2 VIEWS HISTORY: post op. Primary osteoarthritis of right knee. COMPARISON: None available. VIEWS: Portable AP and 2 crosstable lateral views FINDINGS: Total knee prosthesis is in place. Femoral and tibial components articulate satisfactorily in these projections. Small amount of opaque cement is present at interface between each component and underlying bone. A patellar prosthetic component is not present. Small amount of air is present in the joint space and in overlying soft tissues. IMPRESSION: 1. Status post right total knee arthroplasty; femoral and tibial components only. Electronically signed by: Yann Trinidad Jr., M.D. Ever JOHNSON IMG XR PROCEDURES Final Res ult * aPTT (11/11/2018 11:54 AM FOAMITE MIXER) aPTT 26.6 25.0 - 37.0 sec JOSE J JEFFERSON ([place]) Blood specimen (specimen) 11/11/2018 11:54 AM FOAMITE MIXER 11/11/2018 12:07 PM FOAMITE MIXER Narrative JOSE J JEFF[facility] ([place]) - 11/11/2018 12:25 PM FOAMITE MIXER Iglesia Sherman MD LAB BLOOD ORDERABLES F inal Result JOSE J JEFF[facility] ([place]) 1 [facility] Department [place] [address] * Protime-INR (11/11/2018 11:54 AM FOAMITE MIXER) PT 11.3 9.5 - 13.0 sec JOSE J [facility] ([place]) INR 1.00 0.90 - 1.20 JOSE J [facility] ([place]) Comment: Interpretive Data Recommended ranges for Protime INR: 2.0 - 3.0 Most indications for Warfarin therapy (e.g. Treatment of DVT, PE, bioprosthetic valve replacement, prophylaxis venous thrombosis, atrial fibrillation). 2.5 - 3.5 Mechanical mitral valve or dual mechanical mitral and Aortic valve replacement. Current Interpretive Data was last revised on 2015. Blood specimen (specimen) 11/11/2018 11:54 AM FOAMITE MIXER 11/11/2018 12:07 PM FOAMITE MIXER Narrative [facility] [place] - 11/11/2018 12:22 PM FOAMITE MIXER us Iglesia Sherman MD LAB BLOOD ORDERABLES F inal Result [facility] [address] [place] [address] [place] [address] * Surgical pathology (11/11/2018 9:58 AM FOAMITE MIXER) Tissue (Bone Fragment(s),) 11/11/2018 2:57 PM FOAMITE MIXER Narrative [facility] ([place]) - 11/17/2018 2:42 PM FOAMITE MIXER EPIC results best viewed via link to PDF [facility] Department of Pathology [address] [place] [id number] Final Report Patient Name: ??JANINE VIDALTevin Address: ??[address] [place] [address], ??[place], [place] ??[address] Gender: ??F : ??1960 (Age: 58) Service: ??Surgery Location: ??[facility] Hospital #: ??[id number] Patient Type: ??[facility] Accession # ?[id number] Taken: ??11/11/2018 Received: ??11/12/2018 Accessioned: ??11/12/2018 Reported: ??11/17/2018 Physician(s):Dr. Kemal Wright M.D. Diagnosis: Bone and tissue, right knee, total knee arthroplasty: ? -Degenerative joint disease. Osvaldo Kessler M.D. Report Electronically Reviewed and Signed Out By ??Osvaldo Alvarez M.D. ??11/17/2018 14:42:07 Specimen(s) Received: A: Joint Resection Microscopic Description: Microscopic examination of bone and soft tissue from the right knee, including the decalcified sections show changes consistent with degenerative joint disease. ??The articular cartilage shows fibrillation and clustering of chondrocytes, while the underlying marrow space is replaced by mature adipose tissue. ??Sections of the soft tissue are unremarkable. Clinical History: Osteoarthritis of right knee. ??Bone and tissue right knee. ??Right total knee arthroplasty. Gross Description: The container is labeled Janine Vidal and right knee . ??It is a(n) 6.5 x 5 x 4 cm in aggregate of irregularly-shaped fragments of bone and an approximate 10 cc aggregate of soft tissue consisting of adipose tissue, portions of menisci and some synovium. ??Recognizable pieces of bone include the tibial plateau and portions of femoral condyles. ??Some of the bone fragments are covered by articular cartilage showing varying degrees of degenerative changes that include pitting and roughened granularity. ??Decalcified and represented in two cassettes. ??Man Scott M.D., Ph.D./Kimberly Simmons P.A. REPORT IMAGES AND SCANNED DOCUMENTS, IF INCLUDED, ONLY VIEWABLE IN PDF VERSION OF REPORT The performance characteristics of some immunohistochemical stains, fluorescence in-situ hybridization tests and immunophenotyping by flow cytometry cited in this report (if any) were determined by the Surgical Pathology Department at [facility] as part of an ongoing quality assurance coach program and in compliance with federally mandated regulations drawn from the Clinical Laboratory Improvement Act of 1988 (CLIA '88). ??Some of these tests rely on the use of analyte specific reagents and are subject to specific labeling requirements by the US Food and Drug Administration. ??Such diagnostic tests may only be performed in a facility that is certified by the Department of Health and Human Services as a high complexity laboratory under CLIA '88. The FDA has determined that such clearance or approval is not necessary. ??This test is used for clinical purposes. ??It should not be regarded as investigational or for research. ??Nevertheless, federal rules concerning the medical use of analyte specific reagents require that the following disclaimer be attached to the report: This test was developed and its performance characteristics determined by the Surgical Pathology Department [facility]. ??It has not been cleared or approved by the U. S. Food and Drug Administration. Kemal Wright MD LAB PATHOLOGY ORDERABLES Fin al Result Performing Organization Address [facility] Co de Phone Number PATHOLOGY [facility] ([place]) 1 [place] [address] * ECG 12 lead (11/04/2018 6:42 AM FOAMITE MIXER) 11/03/2018 12:4 6 PM FOAMITE MIXER Narrative [facility] - 11/03/2018 9:39 PM FOAMITE MIXER Vent Rate: 77 bpm RR Interval: 778 msec IA Interval: 194 msec QRS Duration: 86 msec QT Interval: 365 msec QTC Interval: 396 msec P-R-T [place]: 67 - 6 - 74 degrees SINUS RHYTHM LOW QRS VOLTAGE IN PRECORDIAL LEADS ??[QRS DEFLECTION < 1.0 mV IN CHEST LEADS] NONSPECIFIC T-WAVE ABNORMALITY BORDERLINE ECG Electronically Signed By: Darion Lang MD Kemal Wright MD ECG ORDERABLES Final Result Performing Organization Address [facility] de Phone Number [facility] * (ABNORMAL) Vitamin D 25 hydroxy (11/03/2018 1:00 PM FOAMITE MIXER) Vitamin D 25-OH 12(L) 30 - 80 ng/mL [facility] ([place]) Blood specimen (specimen) 11/03/2018 1:00 PM FOAMITE MIXER 11/03/2018 1:14 PM FOAMITE MIXER Narrative [facility] ([place]) - 11/03/2018 2:20 PM FOAMITE MIXER Kemal Wright MD LAB BLOOD ORDERABLES Final R esult Performing Organization Address [facility] Co de Phone Number [facility] ([place]) 1 [facility] Department [place] [address] * (ABNORMAL) Urinalysis reflex to microscopic and culture Urine, clean voided (11/03/2018 1:00 PM FOAMITE MIXER) Color, ur Yellow Yellow [facility] ([place]) Clarity, ur Clear Clear [facility] ([place]) Specific gravity, ur 1.003(L) 1.010 - 1.025 [facility] ([place]) pH, urine 6.5 [facility] ([place]) Protein, ur ql Negative Negative [facility] ([place]) Glucose, ur ql Negative Negative [facility] ([place]) Ketones, ur Negative Negative [facility] ([place]) Bilirubin, ur Negative Negative [facility] ([place]) Blood, ur Negative Negative [facility] ([place]) Urobilinogen, ur 0.2 mg/dL [facility] ([place]) Nitrite, ur Negative Negative [facility] ([place]) Leukocyte esterase, ur Negative Negative [facility] ([place]) Urine, clean voided 11/03/2018 1:00 PM FOAMITE MIXER 11/03/2018 1:14 PM FOAMITE MIXER Narrative [facility] ([place]) - 11/03/2018 1:22 PM FOAMITE MIXER ?? Urine pH is affected by diet, medications, systemic acid-base disturbances, and renal tubular function. ??pH may affect urinary stone formation. ??For example, urine pH below 6.0 may help reduce the tendency for calcium phosphate stones and pH greater than 6.0 may reduce the tendency for uric acid stone formation. Source: [facility] [employer]. Last revised 09-26-2017 us Kemal Wright MD LAB MICROBIOLOGY - GENERAL O RDERABLES Final Result Performing Organization Address [facility] Co de Phone Number JOSE J ALVARE[place]) 1 [facility] Department [place] [address] * (ABNORMAL) aPTT (11/03/2018 1:00 PM FOAMITE MIXER) aPTT 42.4(H) 25.0 - 37.0 sec [facility]SE J [facility] ([place]) Blood specimen (specimen) 11/03/2018 1:00 PM FOAMITE MIXER 11/03/2018 1:14 PM FOAMITE MIXER Narrative [facility] ([place]) - 11/03/2018 2:09 PM FOAMITE MIXER Kemal Wright MD LAB BLOOD ORDERABLES Final R esult JOSE J JEFFERSON ([place]) 1 [facility] Department [place] [address] * (ABNORMAL) Protime-INR (11/03/2018 1:00 PM FOAMITE MIXER) Pathologist [facility] PT 17.3(H) 9.5 - 13.0 sec [facility] ([place]) INR 1.52(H) 0.90 - 1.20 [facility] ([place]) Comment: Interpretive Data Recommended ranges for Protime INR: 2.0 - 3.0 Most indications for Warfarin therapy (e.g. Treatment of DVT, PE, bioprosthetic valve replacement, prophylaxis venous thrombosis, atrial fibrillation). 2.5 - 3.5 Mechanical mitral valve or dual mechanical mitral and Aortic valve replacement. Current Interpretive Data was last revised on 2015. Blood specimen (specimen) 11/03/2018 1:00 PM FOAMITE MIXER 11/03/2018 1:14 PM FOAMITE MIXER Narrative [facility] ([place]) - 11/03/2018 2:06 PM FOAMITE MIXER us Kemal Wright MD LAB BLOOD ORDERABLES Final R esult [facility] ([place] 1 [facility] Department [place] [address] * (ABNORMAL) Comprehensive metabolic panel (11/03/2018 1:00 PM FOAMITE MIXER) [facility] Sodium 141 135 - 145 mmol/L [facility] ([place]) Potassium, pl 3.3 3.3 - 4.9 mmol/L [facility] ([place]) Chloride 105 97 - 110 mmol/L [facility] ([place]) CO2 23 22 - 32 mmol/L [facility] ([place]) Anion gap 13 2 - 15 mmol/L [facility] ([place]) BUN 6(L) 8 - 25 mg/dL [facility] ([place]) Creatinine 0.93 0.60 - 1.10 mg/dL [facility] ([place]) Glucose 102 70 - 199 mg/dL [facility] ([place]) Comment: Interpretive Data Fasting glucose >/= 126 mg/dl is diagnostic for diabetes. ?? Fasting is defined as no caloric intake for at least 8 hours. Fasting glucose between 100 mg/dl to 125 mg/dl is diagnostic of prediabetes. In a patient with classic symptoms of hyperglycemia or hyperglycemic crisis, a random glucose >/= 200 mg/dl is diagnostic for diabetes. In the absence of unequivocal hyperglycemia, results should be confirmed by repeat testing. The classification and Diagnosis of Diabetes Diabetes Care 2017;40 (Suppl. 1):S11. Current interpretive data was last revised 2017. Calcium 9.5 8.5 - 10.3 mg/dL [facility] ([place]) Bilirubin, total 0.5 0.1 - 1.2 mg/dL [facility] ([place]) Protein, pl 7.8 6.5 - 8.5 g/dL [facility] ([place]) Albumin 4.5 3.5 - 5.0 g/dL [facility] ([place]) Alk phos 117 40 - 130 Units/L [facility] ([place]) ALT 18 7 - 45 Units/L [facility] ([place]) AST 17 10 - 45 Units/L [facility] ([place]) Blood specimen (specimen) 11/03/2018 1:00 PM FOAMITE MIXER 11/03/2018 1:14 PM FOAMITE MIXER Narrative [facility] ([place]) - 11/03/2018 2:04 PM FOAMITE MIXER us Kemal Wright MD LAB BLOOD ORDERABLES Final R esult [facility] ([place]) 1 [facility] Department [place] [address] * CBC with auto differential (11/03/2018 1:00 PM FOAMITE MIXER) WBC 7.6 3.8 - 9.9 K/cumm [facility] ([place]) Hgb 13.9 11.9 - 15.5 g/dL [facility] ([place]) Hct 41.8 35.6 - 45.5 % [facility] ([place]) Plt 295 150 - 400 K/cumm [facility] ([place]) MPV 10.1 9.1 - 12.3 fL [facility] ([place]) RBC 4.94 3.90 - 5.20 M/cumm [facility] ([place]) MCV 84.6 81.3 - 96.4 fL [facility] ([place]) MCH 28.1 27.1 - 33.3 pg [facility] ([place]) MCHC 33.3 32.3 - 35.7 g/dL [facility] ([place]) RDW CV 13.5 11.1 - 14.9 % [facility] ([place]) RDW SD 42.1 35.7 - 48.1 fL [facility] ([place]) NRBC abs 0.00 0.00 - 0.01 K/cumm [facility] Blood specimen (specimen) 11/03/2018 1:00 PM FOAMITE MIXER 11/03/2018 1:14 PM FOAMITE MIXER Narrative [facility] ([place]) - 11/03/2018 1:19 PM FOAMITE MIXER Kemal Wright MD LAB BLOOD ORDERABLES Final R esult [facility] ([place]) 1 [facility] Department [place] [address] documented in this encounter Visit Diagnoses Diagnosis Preoperative testing Unspecified pre-operative examination Primary osteoarthritis of right knee Primary osteoarthritis of right knee Preoperative testing Unspecified pre-operative examination Preoperative testing Unspecified pre-operative examination Primary osteoarthritis of right knee documented in this encounter Admitting Diagnoses Diagnosis Primary osteoarthritis of right knee documented in this encounter Administered Medications Inactive Administered Medications - up to 3 most recent administrations Medication Order MAR Action Action Date Dose Rate Site albuterol (PROVENTIL,VENTOLIN) 2.5 mg /3 mL (0.083 %) nebulizer solution 2.5 mg 2.5 mg, nebulization, 2 times daily PRN (respiratory care assistant), wheezing, Starting on Sat11/11/18 at 1945 ascorbic acid (VITAMIN C) tablet/chewable tablet 500 mg 500 mg, oral, 2 times daily, First dose on Sat11/11/18 at 2100, Indications: Vitamin deficiency preventionIndications:Vitamin deficiency prevention Given 11/12/2018 9:27 AM FOAMITE MIXER 500 mg Given 11/11/2018 8:38 PM FOAMITE MIXER 500 mg atorvastatin (LIPITOR) tablet 40 mg 40 mg, oral, Daily, First dose on Sat11/11/18 at 2100 Given 11/11/2018 9:26 PM FOAMITE MIXER 40 mg celecoxib (CeleBREX) capsule 200 mg 200 mg, oral, 2 times daily, First dose on Sat11/11/18 at 2100, Indications: Postoperative Acute Pain, PainIndications:Postoperative Acute Pain,Pain Given 11/12/2018 9:2 7 AM FOAMITE MIXER 200 mg Given 11/11/2018 8:38 PM FOAMITE MIXER 200 mg celecoxib (CeleBREX) capsule 400 mg 400 mg, oral, Once, On Sat11/11/18 at 1145, For 1 dose, Pre-Op, Hold if elevated creatine, Indications: PainIndications:Pain Given 11/11/2018 1:48 PM FOAMITE MIXER 400 mg cetirizine (ZyrTEC) tablet 10 mg 10 mg, oral, Daily, First dose on Sat11/11/18 at 2014 Given 11/12/2018 9:27 AM FOAMITE MIXER 10 mg cyanocobalamin (Vitamin B-12) tablet 1,000 mcg 1,000 mcg, oral, Daily, First dose on Sat11/11/18 at 2014, Indications: Prevention of Vitamin B12 DeficiencyIndications:Prevention of Vitamin B12 Deficiency Given 11/12/2018 9:28 AM FOAMITE MIXER 1,000 mcg Given 11/11/2018 9:26 PM FOAMITE MIXER 1,000 mcg diphenhydrAMINE (BENADRYL) injection 12.5 mg 12.5 mg, intravenous, Every 15 min PRN, itching, Starting on Sat11/11/18 at 1624, For 2 doses, Phase I, Max cumulative dose 50 mg., Indications: ItchingIndications:Itching Given 11/11/2018 6:29 PM FOAMITE MIXER 12.5 mg Right Hand diphenhydrAMINE (BENADRYL) injection 25 mg 25 mg, intravenous, Administer over 2 Minutes, Every 10 min PRN, other, reman's, Starting on Sat11/11/18 at 1127, For 2 doses, Pre-Op Given 11/11/2018 12:03 PM FOAMITE MIXER 25 mg diphenhydrAMINE (BENADRYL) injection 25 mg 25 mg, intravenous, Administer over 2 Minutes, Once, On Sat11/11/18 at 2300, For 1 dose, Indications: Hx daryl syndromeIndications:Hx daryl syndrome Given 11/11/2018 11:30 PM FOAMITE MIXER 25 mg ferrous sulfate tablet 325 mg 325 mg (65 mg of elemental iron), oral, Daily with breakfast, First dose on Sat11/12/18 at 0800, Indications: Iron Deficiency Anemia, Anemia preventionIndications:Iron Deficiency Anemia,Anemia prevention Given 11/12/2018 9:28 AM FOAMITE MIXER 325 mg HYDROcodone-acetaminophen (NORCO) 5-325 mg per tablet 1-2 tablet 1-2 tablet, oral, Every 4 hours PRN, 1st line for pain, Starting on Sat11/11/18 at 1935, Indications: PainIndications:Pain Given 11/12/2018 1:05 AM FOAMITE MIXER 1 tablet Lactated Ringer's (LR) infusion 30 mL/hr, intravenous, Continuous, Starting on Sat11/11/18 at 1145, Pre-Op New Bag 11/11/2018 2:52 PM FOAMITE MIXER New Bag 11/11/2018 12:07 PM FOAMITE MIXER 30 mL/hr 30 mL/hr levothyroxine (SYNTHROID, LEVOTHROID) tablet 112 mcg 112 mcg, oral, Daily (early AM), First dose on Sat11/12/18 at 0600, Administer on an empty stomach, preferably 30 minutes before breakfast. Take 4 hours apart from antacids, iron and calcium products. Given 11/12/2018 5:34 AM FOAMITE MIXER 112 mcg ondansetron (ZOFRAN) injection 4 mg 4 mg, intravenous, Administer over 2 Minutes, Every 6 hours PRN, nausea, vomiting, if not tolerating PO, Starting on Sat11/11/18 at 1935, Indications: Prevention of Post-Operative Nausea and Vomiting, nausea and vomitingIndications:Prevention of Post-Operative Nausea and Vomiting,nausea and vomiting ondansetron ODT (ZOFRAN-ODT) disintegrating tablet 4 mg 4 mg, oral, Every 6 hours PRN, nausea, vomiting, Starting on Sat11/11/18 at 1935, Indications: Prevention of Post-Operative Nausea and Vomiting, nausea and vomitingIndications:Prevention of Post-Operative Nausea and Vomiting,nausea and vomiting Given 11/12/2018 10:54 AM FOAMITE MIXER 4 mg Given 11/11/2018 9:29 PM FOAMITE MIXER 4 mg oxyCODONE ER (OxyCONTIN) extended release tablet 20 mg 20 mg, oral, Once, On Sat11/11/18 at 1145, For 1 dose, Pre-Op, Do not crush, chew, cut, dissolve, open or otherwise manipulate tablet/capsule., Indications: PainIndications:Pain Given 11/11/2018 1:48 PM FOAMITE MIXER 20 mg oxyCODONE-acetaminophen (PERCOCET) 5-325 mg per tablet 1-2 tablet 1-2 tablet, oral, Every 4 hours PRN, 2nd line for pain, Starting on Sat11/11/18 at 1935, Indications: PainIndications:Pain Given 11/12/2018 6:33 AM FOAMITE MIXER 1 ta blet Given 11/12/2018 2:19 AM FOAMITE MIXER [address] (PROTONIX) extended release tablet 40 mg 40 mg, oral, Daily, First dose on Sat11/11/18 at 2030, Do not crush, chew, cut, dissolve, open or otherwise manipulate tablet/capsule., Indications: Treatment of Non-Bleeding Gastric DisorderIndications:Treatment of Non-Bleeding Gastric Disorder Given 11/12/2018 9:28 AM FOAMITE MIXER 40 mg Given 11/11/2018 8:38 PM FOAMITE MIXER 40 mg rivaroxaban (XARELTO) tablet 20 mg 20 mg, oral, Daily with dinner, First dose (after last modification) on Sat11/12/18 at 1800, Administer doses greater than or equal to 15 mg/day with food; doses of 10 mg/day may be administered without regard to meals. If on heparin infusion, discontinue heparin infusion upon first administration of rivaroxaban., Indications: Other (complete free text reason below), VTE Prophylaxis Following Ortho Surgery, hypercoagulable state with recurrent DVTIndications:Other (complete free text reason below),VTE Prophylaxis Following Ortho Surgery,hypercoagulable state with recurrent DVT senna-docusate (PERICOLACE) 8.6-50 mg per tablet 2 tablet 2 tablet, oral, 2 times daily, First dose on Sat11/11/18 at 2100, Hold for diarrhea., Indications: constipationIndications:constipation Given 11/12/2018 9:29 AM FOAMITE MIXER 2 table ts Given 11/11/2018 8:38 PM FOAMITE MIXER 2 tablets sodium chloride 0.9% infusion 100 mL/hr, intravenous, Continuous, Starting on Sat11/11/18 at 2015, DISCONTINUE WHEN TOLERATING ORAL FLUIDS New Bag 11/12/2018 5:34 AM FOAMITE MIXER 100 mL/hr 100 mL/hr New Bag 11/11/2018 8:40 PM FOAMITE MIXER 100 mL/hr 100 mL/hr vancomycin 1500 mg/250 mL in sodium chloride 0.9% (premix) 1,500 mg 1,500 mg, intravenous, Administer over 90 Minutes, Once, On Sat11/12/18 at 0000, For 1 dose, Administer 12 hours after pre-procedure dose., Indications: Prophylaxis, SurgicalIndications:Prophylaxis, Surgical New Bag 11/12/2018 12:40 AM FOAMITE MIXER 1,500 mg vancomycin 1500 mg/250 mL in sodium chloride 0.9% (premix) 1,500 mg 1,500 mg, intravenous, Administer over 90 Minutes, Once, On Sat11/11/18 at 1200, For 1 dose, Pre-Op, Dose adjusted per surgical prophylaxis protocol, for weight less than 80 kg give 1000 mg, for weight 80 kg or greater give 1500 mg beginning 1-2 hours prior to incision., Indications: Prophylaxis, SurgicalIndications:Prophylaxis, Surgical New Bag 11/11/2018 12:04 PM FOAMITE MIXER 1,500 mg documented in this encounter Discontinued Medications Medication Sig Discontinue Reason Start Date End Da te atorvastatin (LIPITOR) 20 mg tablet Therapy completed 02/01/2018 11/03/2018 VENTOLIN HFA 90 mcg/actuation inhaler Therapy completed 09/30/2018 11/03/19 19 aspirin 81 mg tablet Take 81 mg by mouth. Therapy completed 11/03/2018 varenicline (CHANTIX STARTING MONTH BOX) 0.5 mg (11)- 1 mg (42) tablet Therapy completed 04/14/201810/17 levothyroxine (SYNTHROID, LEVOTHROID) 137 mcg tablet Take 137 mcg by mouth. Therapy completed 11/03/2018 documented as of this encounter Historical Medications * This list may reflect changes made after this encounter. folic acid (FOLVITE) 1 mg tablet Take 1 mg by mouth daily. added in this encounter Active and Recently Administered Medications Times are shown in FOAMITE MIXER. Scheduled Medication Order 11/10/2018 11/11/2018 11/12/2018 ascorbic acid (VITAMIN C) tablet/chewable tablet 500 mg 500 mg, oral, 2 times daily, First dose on Sat11/11/18 at 2100, Indications: Vitamin deficiency prevention 2037 (Given - Provider: Berto Jacobsen RN) 926 (Given - Provider: Lexie Kurtz, MIKHAIL) atorvastatin (LIPITOR) tablet 40 mg 40 mg, oral, Daily, First dose on Sat11/11/18 at 2099 2125 (Given - Provider: Berto Jacobsen RN) celecoxib (CeleBREX) capsule 200 mg 200 mg, oral, 2 times daily, First dose on Sat11/11/18 at 2099, Indications: Postoperative Acute Pain, Pain 2037 (Given - Provider: Berto Jacobsen RN) 926 (Given - Provider: Lexie Kurtz, MIKHAIL) celecoxib (CeleBREX) capsule 400 mg (COMPLETED) 400 mg, oral, Once, On Sat11/11/18 at 1145, For 1 dose, Pre-Op, Hold if elevated creatine, Indications: Pain 1348 (Given - Provider: Ester Pryor RN) cetirizine (ZyrTEC) tablet 10 mg 10 mg, oral, Daily, First dose on Sat11/11/18 at 2014 2035 (Not Given - Provider: Berto Jacobsen RN - Reason: Patient/family refused) 926 (Given - Provider: Lexie Kurtz RN) cyanocobalamin (Vitamin B-12) tablet 1,000 mcg 1,000 mcg, oral, Daily, First dose on Sat11/11/18 at 2014, Indications: Prevention of Vitamin B12 Deficiency 2125 (Given - Provider: Berto Jacobsen RN) 927 (Given - Provider: Lexie Kurtz RN) diphenhydrAMINE (BENADRYL) injection 25 mg (COMPLETED) 25 mg, intravenous, Administer over 2 Minutes, Once, On Sat11/11/18 at 2300, For 1 dose, Indications: Hx daryl syndrome 2329 (Given - Provider: Berto Jaocbsen RN) ferrous sulfate tablet 325 mg 325 mg (65 mg of elemental iron), oral, Daily with breakfast, First dose on Sat11/12/18 at 0800, Indications: Iron Deficiency Anemia, Anemia prevention 0928 (Given - Provid er: Lexie Kurtz RN) levothyroxine (SYNTHROID, LEVOTHROID) tablet 112 mcg 112 mcg, oral, Daily (early AM), First dose on Sat11/12/18 at 0600, Administer on an empty stomach, preferably 30 minutes before breakfast. Take 4 hours apart from antacids, iron and calcium products. 0534 (Given - Provid er: Berto Jacobsen RN) oxyCODONE ER (OxyCONTIN) extended release tablet 20 mg (COMPLETED) 20 mg, oral, Once, On Sat11/11/18 at 1145, For 1 dose, Pre-Op, Do not crush, chew, cut, dissolve, open or otherwise manipulate tablet/capsule., Indications: Pain 1348 (Given - Provider: Ester Pryor RN) pantoprazole DR (PROTONIX) extended release tablet 40 mg 40 mg, oral, Daily, First dose on Sat11/11/18 at 2030, Do not crush, chew, cut, dissolve, open or otherwise manipulate tablet/capsule., Indications: Treatment of Non-Bleeding Gastric Disorder 2037 (Given - Provider: Berto Jacobsen RN) 927 (Given - Provider: Lexie Kurtz RN) polyethylene glycol (MIRALAX) packet 17 g 17 g, oral, Daily, First dose on Sat11/12/18 at 0900, Hold for diarrhea., Indications: constipation 927 (Not Given - Provider: Lexie Kurtz RN - Reason: Patient/family refused) rivaroxaban (XARELTO) tablet 20 mg 20 mg, oral, Daily with dinner, First dose (after last modification) on Sat11/12/18 at 1800, Administer doses greater than or equal to 15 mg/day with food; doses of 10 mg/day may be administered without regard to meals. If on heparin infusion, discontinue heparin infusion upon first administration of rivaroxaban., Indications: Other (complete free text reason below), VTE Prophylaxis Following Ortho Surgery, hypercoagulable state with recurrent DVT senna-docusate (PERICOLACE) 8.6-50 mg per tablet 2 tablet 2 tablet, oral, 2 times daily, First dose on Sat11/11/18 at 2100, Hold for diarrhea., Indications: constipation 2037 (Given - Provider: Berto Jacobsen RN) 928 (Given - Provider: Lexie A. Assmann, RN) vancomycin 1500 mg/250 mL in sodium chloride 0.9% (premix) 1,500 mg (COMPLETED) 1,500 mg, intravenous, Administer over 90 Minutes, Once, On Sat11/12/18 at 0000, For 1 dose, Administer 12 hours after pre-procedure dose., Indications: Prophylaxis, Surgical 0040 (New Bag - Provider: Berto Jacobsen RN) vancomycin 1500 mg/250 mL in sodium chloride 0.9% (premix) 1,500 mg (COMPLETED) 1,500 mg, intravenous, Administer over 90 Minutes, Once, On Sat11/11/18 at 1200, For 1 dose, Pre-Op, Dose adjusted per surgical prophylaxis protocol, for weight less than 80 kg give 1000 mg, for weight 80 kg or greater give 1500 mg beginning 1-2 hours prior to incision., Indications: Prophylaxis, Surgical 1204 (New Bag - Provider: Ester Pryor RN) Continuous Medication Order 11/10/2018 11/11/2018 11/12/2018 Lactated Ringer's (LR) infusion 30 mL/hr, intravenous, Continuous, Starting on Sat11/11/18 at 1145, Pre-Op 1207 (New Bag - Provider: Ester Pryor RN)1452 (New Bag - Provider: Halley Hill CRNA)1632 (Anesthesia Volume Adjustment - Provider: Halley Hill CRNA) Lactated Ringer's (LR) infusion 125 mL/hr, intravenous, Continuous, Starting on Sat11/11/18 at 1700, Phase I 1943 (Not Given - Provider: Berto Jacobsen RN - Reason: Other - Comment: Started in other unit) sodium chloride 0.9% infusion 100 mL/hr, intravenous, Continuous, Starting on Sat11/11/18 at 2015, DISCONTINUE WHEN TOLERATING ORAL FLUIDS 2039 (New Bag - Provider: Berto Jacobsen RN) 0534 (New Bag - Provider: Berto Jacobsen RN) PRN Medication Order 11/10/2018 11/11/2018 11/12/2018 acetaminophen (TYLENOL) tablet 1,000 mg 1,000 mg, oral, Every 6 hours PRN, fever, Starting on Sat11/11/18 at 1935, Indications: Fever, Pain albuterol (PROVENTIL,VENTOLIN) 2.5 mg /3 mL (0.083 %) nebulizer solution 2.5 mg 2.5 mg, nebulization, 2 times daily PRN (respiratory care assistant), wheezing, Starting on Sat11/11/18 at 1945 bacitracin 100,000 Units, polymyxin B 1,000,000 Units in sodium chloride 0.9% 1,000 mL irrigation solution (CANCELED) As needed, Starting on Sat11/11/18 at 1454, Intra-Op 1454 (Given - Provider: Kemal Wright MD) bacitracin 100,000 Units, polymyxin B 1,000,000 Units in sodium chloride 0.9% 1,000 mL irrigation solution (CANCELED) As needed, Starting on Sat11/11/18 at 1455, Intra-Op 1455 (Given - Provider: Kemal Wright MD) bisacodyl EC (DULCOLAX EC) tablet 10 mg 10 mg, oral, Daily PRN, constipation, If no results 24 hours after milk of magnesia, Starting on Sat11/11/18 at 1935, Do not crush, chew, cut, dissolve, open or otherwise manipulate tablet/capsule. diphenhydrAMINE (BENADRYL) injection 12.5 mg (CANCELED) 12.5 mg, intravenous, Every 15 min PRN, itching, Starting on Sat11/11/18 at 1624, For 2 doses, Phase I, Max cumulative dose 50 mg., Indications: Itching 1829 (Given - Provider: Tracy Austin RN) diphenhydrAMINE (BENADRYL) injection 25 mg (CANCELED) 25 mg, intravenous, Administer over 2 Minutes, Every 10 min PRN, other, reman's, Starting on Sat11/11/18 at 1127, For 2 doses, Pre-Op 1203 (Given - Provider: Ester Pryor RN) HYDROcodone-acetaminophen (NORCO) 5-325 mg per tablet 1-2 tablet 1-2 tablet, oral, Every 4 hours PRN, 1st line for pain, Starting on Sat11/11/18 at 1935, Indications: Pain 0105 (Given - Provid er: Berto Jacobsen RN) magnesium hydroxide (MILK OF MAGNESIA) 80 mg/mL (33.3 mg/mL as elemental magnesium) oral suspension 30 mL 30 mL, oral, Daily PRN, constipation, Starting on Sat11/11/18 at 1934 mineral oil (FLEET MINERAL OIL) enema 1 enema 1 enema, rectal, Daily PRN, constipation, if no results 24 hours after bisacodyl, Starting on Sat11/11/18 at 1934, Indications: constipation ondansetron (ZOFRAN) injection 4 mg(Linked Group 1) 4 mg, intravenous, Administer over 2 Minutes, Every 6 hours PRN, nausea, vomiting, if not tolerating PO, Starting on Sat11/11/18 at 1934, Indications: Prevention of Post-Operative Nausea and Vomiting, nausea and vomiting 2128 (See Alternative - Provider: Berto Jacobsen RN) 1054 (See Alternative - Provider: Lexie Kurtz, MIKHAIL) ondansetron ODT (ZOFRAN-ODT) disintegrating tablet 4 mg(Linked Group 1) 4 mg, oral, Every 6 hours PRN, nausea, vomiting, Starting on Sat11/11/18 at 1934, Indications: Prevention of Post-Operative Nausea and Vomiting, nausea and vomiting 2128 (Given - Provider: Berto Jacobsen RN) 1054 (Given - Provider: Lexie Kurtz, MIKHAIL) oxyCODONE-acetaminophen (PERCOCET) 5-325 mg per tablet 1-2 tablet 1-2 tablet, oral, Every 4 hours PRN, 2nd line for pain, Starting on Sat11/11/18 at 193, Indications: Pain 0219 (Given - Provid er: Berto Jacobsen RN)0633 (Given - Provider: Berto Jacobsen RN) povidone-iodine (BETADINE) 120 mL in sodium chloride 0.9 % 1,000 mL solution (CANCELED) As needed, Starting on Sat11/11/18 at 1455, Intra-Op 1455 (Given - Provider: Kemal Wright MD) sodium chloride 0.9 % irrigation (CANCELED) As needed, Starting on Sat11/11/18 at 1456, Intra-Op 1456 (Given - Provider: Kemal Wright MD) sodium chloride 0.9% flush 0.5-20 mL 0.5-20 mL, intra-catheter, As needed, line care, Starting on Sat11/11/18 at 1935, Flush volume based on line type and size. Flush before and after each use. , Indications: Flushing tranexamic acid (CYKLOKAPRON) 1,000 mg/10 mL (100 mg/mL) solution (CANCELED) As needed, Starting on Sat11/11/18 at 1457, Intra-Op 1457 (Given - Provider: Kemal Wright MD) vancomycin (VANCOCIN) solution (CANCELED) As needed, Starting on Sat11/11/18 at 1456, Intra-Op 1456 (Given - Provider: Kemal Wright MD - Comment: one gram of powder vancomycin sprinkled into surgical incision on sterile field) Linked Groups Order Group 1: ondansetron ODT (ZOFRAN-ODT) disintegrating tablet 4 mgJump to med 4 mg, oral, Every 6 hours PRN, nausea, vomiting, Starting on Sat11/11/18 at 1935, Indications: Prevention of Post-Operative Nausea and Vomiting, nausea and vomiting Or ondansetron (ZOFRAN) injection 4 mgJump to med 4 mg, intravenous, Administer over 2 Minutes, Every 6 hours PRN, nausea, vomiting, if not tolerating PO, Starting on Sat11/11/18 at 193, Indications: Prevention of Post-Operative Nausea and Vomiting, nausea and vomiting documented in this encounter Orders Medications Ordered That Sandor ht Not Have Been Administered Count Last Ordered Date First Ordered Date rivaroxaban (XARELTO) tablet 20 mg 2 201811/11/2018 acetaminophen (TYLENOL) tablet 1,000 mg 1 0 11/11/2018 albuterol (PROVENTIL,VENTOLI N) 2.5 mg /3 mL (0.083 %) nebulizer solution 2.5 mg 1 11/11/2018 albuterol HFA (PROVENTIL HFA ,VENTOLIN HFA,PROAIR HFA) 90 mcg/actuation inhaler 2 puff 1 11/11/2018 bacitracin 100,000 Units, po lymyxin B 1,000,000 Units in sodium chloride 0.9% 1,000 mL irrigation solution 4 11/11/2018 bisacodyl EC (DULCOLAX EC) tablet 10 mg 1 0 11/11/2018 bupivacaine (MARCAINE) 50 mg , EPINEPHrine 0.3 mg, ketorolac (TORADOL) 30 mg in sodium chloride 0.9% 20 mL topical solution 1 11/11/2018 bupivacaine-epinephrine (MAR EUGENIA w/EPI) 0.25 %-1:200,000 injection - ADS Override Pull 1 11/11/2018 ceFAZolin (ANCEF) 1 gram/10 mL in sterile water (premix) 2,000 mg 1 11/11/2018 fentaNYL (SUBLIMAZE) 50 mcg/ mL preservative free injection - ADS Override Pull 1 11/11/2018 fentaNYL (SUBLIMAZE) preserv ative free injection 25 mcg 1 11/11/2018 fentaNYL (SUBLIMAZE) preserv ative free injection 50 mcg 1 11/11/2018 Lactated Ringer's (LR) infusion 1 9 magnesium hydroxide (MILK OF MAGNESIA) 80 mg/mL (33.3 mg/mL as elemental magnesium) oral suspension 30 mL 1 11/11/2018 meperidine (DEMEROL) preserv ative free injection 15 mg 1 11/11/2018 midazolam (VERSED) 1 mg/mL p reservative free injection - ADS Override Pull 1 11/11/2018 mineral oil (FLEET MINERAL O IL) enema 1 enema 1 11/11/2018 naloxone (NARCAN) 0.4 mg/mL injection 0.04-0.4 mg 11/11/2018 ondansetron (ZOFRAN) injection 4 mg 1 11/[address] (PROTONIX) e xtended release tablet 20 mg 1 11/11/2018 polyethylene glycol (MIRALAX) packet 17 g 1 11/11/2018 povidone-iodine (BETADINE) 1 20 mL in sodium chloride 0.9 % 1,000 mL solution 1 11/11/2018 rivaroxaban (XARELTO) tablet 10 mg 1 2018 sodium chloride 0.9 % irrigation 1 11/11/19 19 sodium chloride 0.9% flush 0.5-20 mL 2 10/18 tobramycin (NEBCIN) 152 mg i n sodium chloride 0.9% 100 mL IVPB 1 11/11/2018 tranexamic acid (CYKLOKAPRON ) 1,000 mg/10 mL (100 mg/mL) solution 1 11/11/2018 tranexamic acid (CYKLOKAPRON ) 3,000 mg in sodium chloride 0.9% 100 mL irrigation solution 1 11/11/2018 vancomycin (VANCOCIN) 1,250 mg in sodium chloride 0.9% 250 mL IVPB 1 11/11/2018 vancomycin (VANCOCIN) solution 1 11/11/2018 General Supply Count Last Ordered Date First Or dered Date WALKER 1 11/11/2018 Diet Count Last Ordered Date First Orde red Date ADULT DISCHARGE DIET 1 11/12/2018 Nursing Count Last Ordered Date First Orde red Date DISCHARGE ACTIVITY 4 11/12/2018 DISCHARGE CALL PROVIDER 4 11/12/2018 FOLLOW UP WITH PROVIDER 1 11/12/2018 Admission Count Last Ordered Date First Orde red Date ASSIGN PATIENT STATUS 1 11/11/2018 CORE MEASURES Count Last Ordered Date First Ord ered Date REASON FOR NO VTE PROPHYLAXIS AT ADMISSION 1 11/11/2018 documented in this encounter Care Teams Retail Manager In Training Relationship Specialty Start Date End Date Dominic Fernando MD [address] [place] [address] PCP - General 08/13/17 documented as of this encounter
--- OUTSIDE RECORDS SUMMARY | 2024-09-04 17:10 | XMS_ITS | Encounter Summary ---
Author Organization [facility] Address [address] [place] [address] Phone Care Team Providers Care Flat Breakdown Processor Name Role Phone Dominic Fernando MD Primary Care Provider [phone] Reason for Visit * Reason Comments Weakness - Generalized * Auth/Cert Specialty Diagnoses / Procedures Referred By Contac t Referred To Contact Referral ID Status Reason Start Date Expiration Date Visits Re quested Visits Authorized [id number] 1 1 Encounter Details Date Type Department Care Team (Late st Contact Info) Description 11/24/2018 12:00 PM CDT Home Care Visit [facility] [address] [address] [address] [place] [address] Julee Lundberg, PT PT OASIS DISCHARGE Social History Tobacco Use Types Packs/Day Years Used Date Smoking Tobacco: Every Day Cigarettes Smokeless Tobacco: Current Comments:quitting now, 1 pac k last 2-3 days Alcohol Use Standard Drinks/Week Comments No 0 (1 standard drink = 0.6 oz pur e alcohol) Comments No Sex and Gender Information Value Date Recorded Sex Assigned at Not on file 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 Gender Identity Not on file Sexual Orientation Not on file documented as of this encounter Last Filed Vital Signs Vital Sign Reading Time Taken Comments Blood Pressure 120/70 11/24/2018 12:06 PM CDT Pulse 72 11/24/2018 12:06 PM CDT Temperature 37.1 ??C (98.8 ??F) 11/24/2018 12:06 PM C DT Respiratory Rate 16 11/24/2018 12:06 PM CDT Oxygen Saturation 98% 11/24/2018 12:06 PM CDT Inhaled Oxygen Concentration - - Weight - - Height - - Body Mass Index - - documented in this encounter Plan of Treatment Not on file documented as of this encounter Visit Diagnoses Not on filedocumented in this encounter Home Health Visit - Care Plan Visit Details Visit Type -PT OASIS Dischar ge Discipline -Physical Therapy Problems Problem Description Start Date Status Goals Interve ntions PT Orthopedic-Tot al Joint Replacement Disciplines: Physical Therapy Total Joint Replacement of R knee 11/17/2018 Active 4 goals linked to scheduled/documente d interventions Goals Goal Associated Problem Outcome Goal Met? Visit Notes Improvement in ROM and/or strength measures Description: Increase AAROM of R knee to 5-100 degrees by 2 weeks Patient will demonstrate improvement in active R knee extension ROM with short arc through full ROM by 2 weeks. PT Orthopedic-Total Joint Replacement Adequate for Discharge No Improvement with performance with gait/stairs Description: Patient able to independently ambulate functional distances in home with wheeled walker and improved gait pattern by 2 weeks. Patient able to ascend/descend stairs in/out of home with rail and no assist by 2 weeks. Patient able to ambulate outside of home using wheeled walker and no assist to access transportation by 2 week. Amb with equal step length and heel strike R LE PT Orthopedic-Total Joint Replacement Adequate for Discharge No Improvement in Performance with Bed Mobility/Transfers Description: Patient able to independently perform all necessary transfers in and out of the home safely by 2 weeks PT Orthopedic-Total Joint Replacement Adequate for Discharge No Performance with HEP Description: Patient/caregiver to be independent with progressed HEP by therapy discharge. PT Orthopedic-Total Joint Replacement Completed Yes documented in this encounter Home Health Visit - Actions and Narratives Actions Patient returned demonstrati on on supine and sitting exercises. Has been doing exercises 1-2 x day. Still c/o pain limiting her. Instructed to cont to use TENS unti and turn the intensity on high enough that she feels a strong current. Gait training level surfaces and steps. Fatigued cameron coming down steps at the end of treatment and felt like her knee was going to give away. Instructed to use immobilzer on the steps if she needed extra security Car transfers Sees for follow up tomorrow and then will be progressing to out patient therapy [facility] home care documented in this encounter Care Teams Flat Breakdown Processor Relationship Specialty Start Date End Date Dominic Fernando MD [address] [place] [address] [place] [address] PCP - General 08/13/17 documented as of this encounter
--- OUTSIDE RECORDS SUMMARY | 2024-09-04 17:10 | XMS_ITS | Encounter Summary ---
Author Organization [facility] Home Care Servic es Address [address] [place] [address] Phone Care Team Providers Care Shipping Technician Name Role Phone Dominic Fernando MD Primary Care Provider [phone] Reason for Visit * Auth/Cert Specialty Diagnoses / Procedures Referred By Contac t Referred To Contact Referral ID Status Reason Start Date Expiration Date Visits Re quested Visits Authorized [id number] 1 1 Encounter Details Date Type Department Care Team (Late st Contact Info) Description 11/13/2018 9:45 AM EYEGLASS LENS GENERATOR Home Care Visit [facility] [place] [address] [address] [place] [id number] Shagufta Gonzalez RN SN OASIS START OF CARE Social History Tobacco Use Types Packs/Day Years Used Date Smoking Tobacco: Every Day Cigarettes Smokeless Tobacco: Current Comments:quitting now, 1 pac k last 2-3 days Alcohol Use Standard Drinks/Week Comments No 0 (1 standard drink = 0.6 oz pur e alcohol) Comments No Sex and Gender Information Value Date Recorded Sex Assigned at Not on file Legal Sex Female 11:26 PM EYEGLASS LENS GENERATOR Gender Identity Not on file Sexual Orientation Not on file documented as of this encounter Last Filed Vital Signs Vital Sign Reading Time Taken Comments Blood Pressure 108/62 11/13/2018 9:37 AM EYEGLASS LENS GENERATOR Pulse 78 11/13/2018 9:37 AM EYEGLASS LENS GENERATOR Temperature 36.8 ??C (98.3 ??F) 11/13/2018 9:37 AM CS T Respiratory Rate 20 11/13/2018 9:37 AM EYEGLASS LENS GENERATOR Oxygen Saturation 93% 11/13/2018 9:37 AM EYEGLASS LENS GENERATOR Inhaled Oxygen Concentration - - Weight 86.2 kg (190 lb) 11/13/2018 9:37 AM EYEGLASS LENS GENERATOR Height 160 cm (5' 3 ) 11/13/2018 9:37 AM EYEGLASS LENS GENERATOR Body Mass Index 33.66 11/13/2018 9:37 AM EYEGLASS LENS GENERATOR documented in this encounter Plan of Treatment Not on file documented as of this encounter Visit Diagnoses Not on filedocumented in this encounter Home Health Visit - Care Plan Visit Details Visit Type -SN OASIS Start o f Care Discipline -Residential Problems Problem Description Start Date Status Goals Interve ntions DVT Prevention and Management Disciplines: Residential Home management of anticoagulation therapy 11/13/2018 Active - 1 problem intervention scheduled/documente d in this visit Incision Care Disciplines: Residential Infection prevention and promotion of right knee incision healing 11/13/2018 Active - 2 problem interventions scheduled/documente d in this visit Medications Disciplines: Residential Management of home medications 11/13/2018 Active - 5 problem interventions scheduled/documente d in this visit Patient/Caregiver Total Joint Education Disciplines: Residential Patient/Carregiver Education re: Total Joint Replacement 11/13/2018 Active - 7 problem interventions scheduled/documente d in this visit Physical Discomfort Disciplines: Residential Alteration in comfort 11/13/2018 Active - 1 problem intervention scheduled/documente d in this visit Alteration in nutrition Disciplines: Residential Alteration in nutrition 11/13/2018 Active - 1 problem intervention scheduled/documente d in this visit Need to mobilize secretions Disciplines: Residential Alteration in ability to mobilize secretions 11/13/2018 Active - 2 problem interventions scheduled/documente d in this visit Interventions Intervention Associated Problem/Goal Status Variance Visit Notes Monitor anticoagulation therapy Description: SN to monitor patient's response to anticoagulation therapy and teach patient/caregiver re: purpose of medication, dosing, scheduling, and bleeding precautions. Instruct patient on s/s DVT and prevention with use of anticoagulant medication, lower extremity DONA hose, ankle pumps, adequate po fluid intake Problem:DVT Prevention and Management Completed no s/s abnormal bleeding. Instructed patient on use of xarelto, bleeding precautions, s/s to report gums bleeding, nosebleed, tea color to urine, jaundice, purplish discoloration fingers/toes, blood stool or urine, spontaneous bruising, instructed patient on s/s dvt : pain back of calf, redness, swelling calf, sudden onset increased shortness of breath if a PE, seek immediate attention Infection Prevention Description: Instruct patient/caregiver in infection prevention including hand hygiene, personal hygiene/shower protocol per physician and environment of care that minimizes risk of infection. Problem:Incision Care Completed instructed patient on good handwashing technique to prevent infection Instruct/perform wound care Description: Nonremovable hydrocolloid dressing , dressing to right knee to remain intact until Saturday11/17/18. Patient/caregiver and or therapist to remove hydrocolloid dressing 11/17, apply island border gauze dressing. Patient may shower, let soap and water run over incision, pat dry and apply island border dressing daily and prn if dislodged or soiled. D/C right knee incision site care and supplies when healed Problem:Incision Care patient already removed franco wrap to right knee before nurse visit, instructed do not remove hydrocolloid dressing , dressing to be removed by agency staff on 11/17, report any soiling, dislodgement, drainage under dressing Instruct on medication delivery system Description: Instruct patient/caregiver on medication delivery system. Problem:Medications Completed Instruct on Medication Management Description: Instruct patient/caregiver in medication administration, purpose, dosages, preparation, scheduling, side effects, food/drug interactions, storage, drug allergies, and potential complications. Problem:Medications Completed reviewed medication list with patient and reconciled medications with alexis perez in dr darling office Monitor effectiveness of drug therapy Description: Monitor effectiveness of patient's drug therapy. Problem:Medications Completed Instruct on medication side effects Description: Instruct patient/caregiver to monitor for side effects and adverse reactions. Problem:Medications Completed Instruct on High Risk Medications Description: Instruct patient/caregiver on high-risk medications including oral hypoglycemics, insulins, blood thinners, and narcotics. Problem:Medications Completed Total Joint Education Sheet Description: Instruct patient/caregiver on all aspects of Total Joint Education Sheet Problem:Patient/geophysical data technician Total Joint Education Completed Elimination Description: Assess elimination and instruct patient/caregiver on bowel regimen related to taking pain medication. Problem:Patient/geophysical data technician Total Joint Education Completed Edema control and correct elevation/positioning Description: Assess edema and instruct patient/caregiver on edema control and correct elevation/positioning. Problem:Patient/geophysical data technician Total Joint Education Completed use total joint handout instructed on proper positioning, patient did not have dona hose on to right leg when nurse arrived, skilled nurse put on dona hose to right lower leg to reduce swelling and prevent DVT, patient sits in recliner and elevates legs , only dependent when ambulating Post-op nutritional needs Description: Assess nutritional status and instruct patient/caregiver on high protein diet to promote incisional healing and increase po fluid intake 8 glasses per day , need to drink water/gatorade due to episodes of nausea/vomiting Problem:Patient/geophysical data technician Total Joint Education Completed Fall Prevention/Safety concerns Description: Instruct in fall prevention strategies and safety during the post-operative recovery period in the home. Problem:Patient/geophysical data technician Total Joint Education Completed Cryotherapy Description: Instruct patient/caregiver on ice treatment to right knee x 15-20 minutes after HEP and as needed for pain and edema control. May use polar pack up to 60 minutes at a time. Patient to use adequate barrier between ice pack/polar pack pad and monitor skin frequently. Problem:Patient/geophysical data technician Total Joint Education Completed patient polar pack was warm, instructed on correct use of polar pack , put in freezer block and polar pack cold , instructed paitent on use of ice to reduce swelling and edema. patient is putting thin towel between knee and polar pack, no redness to skin from use of pack Other patient/caregiver instructions Description: Instruct patient/caregiver on postoperative restrictions, no driving, no heavy lifiting 20 lbs x 12 weeks, no tub bath Problem:Patient/geophysical data technician Total Joint Education Completed Instruct on pain management techniques Description: Instruct in pharmacologic and nonpharmacologic pain management techniques. Problem:Physical Discomfort Completed skilled nurse used information from start of care folder, and instructed patient on pain management, patient instructed how to control nausea so can take pain medication , correct use of polar pack, positioning, elevation, taking pain medication at onset of pain, patient keeps stating she doesnt take pain pills, instructed patient importance of controlling pain to promote rest, healing , so she can participate with home exercise program. patient needs further instruction Instruct on the prevention of nausea/vomiting Description: Instruct patient/caregiver in methods to prevent and reduce nausea and vomiting . Eating small meals 5-6 times per day and or a [place] diet until nausea resolved. Problem:Alteration in nutrition Completed Instructed patient on bland diet, foods to eat on bland diet. Eating small frequent meals 5-6 x per day, have son flower picker prescription for medication to control nausea, take as prescribed , take before vomiting do not wait until nausea is severe and vomiting occurs. Increase po fluid intake if possible to prevent dehydration which can cause nausea Instruct breathing techniques Description: Instruct patient/caregiver in deep-breathing and coughing exercises. Problem:Need to mobilize secretions Completed instructed patient on coughing and deep breathing exercises Instruct on Incentive Spirometer Description: Instruct patient/caregiver in use of incentive spirometer. Should attempt to perform 10 deep breaths 4-6 x per day Problem:Need to mobilize secretions Completed instructed patient on use of incetive spirometer, patient smokes instructed on risk of postoperative pneumonia and prevention with using spirometer 10 deep breaths up to 4-6 x per day. patient demonstrated use of incentive spirometer , using correctly and understands importance of using it 4-6 x per day documented in this encounter Home Health Visit - Actions and Narratives Actions Called Dr Kemal blair , spoke with Alexis JOHNSON,. Reported patient hypotensive, reported documented blood pressure readings, patient temperature, pulse rate. Lungs with bilateral diminished breath sounds all lobes, with crackles right and left lower lobe of lungs. Patient pain to right knee 7/10 , did not take any pain medication last night due to nausea with vomiting 3-4 x , 2 episodes of diarrhea. Patient has been taking a relatives prescription for ondansetron (zofran), did not receive a prescription for medication to control nausea at discharge to home. Alexis spoke with patient directly over the phone and patient verbalized she did not want to go to the hospital wanted to try to take zofran and stay at home. Alexis to have prescription for zofran (ondansetron) sent to pharmacy , advised patient drink water, gatorade, and eat a bland diet, stop celecoxib, ferrous sulfate, and ascorbic acid. . Instructed patient to use incentive spirometer. Nurse received orders to obtain CBC 11/14. Patient advised if symptoms do not improve , pain worsens go to emergency room. Patient verbalized understanding Narratives M0104 - Date of Referral Documented Answer:11/13/2018 Recommendation:11/12/2018 M2200 - Number of therapy visits indicated (total of physical, occupational and speech-language pathology combined). Documented Answer: 006 Recommendation: 005 Clinical documentation reflects that the patient has orders for less therapy visits than documented in this item. CH4698 - Mobility: Code the patient? s usual performance at SOC/GARRY for each activity using the 6-point scale. If activity was not attempted at SOC/GARRY, code the reason. Code the patient? s discharge goal(s) using the 6-point scale. Use of codes 07, 09, 10 or 88 is permissible to code discharge goal(s). Based on the documentation, human assistance prior to and/or following was required to complete this activity. LP1341 DW7194.A.2 - Roll left and right: The ability to roll from lying on back to left and right side, and return to lying on back on the bed. Documented Answer: 09. Not applicable ? Not attempted and the patient did not perform this activity prior to the current illness, exacerbation or injury. Recommendation: 05. Setup or clean-up assistance ? [place] sets up or cleans up; patient completes activity. [place] assists only prior to or following the activity. JQ7171 EL8640.B.2 - Sit to lying: The ability to move from sitting on side of bed to lying flat on the bed Documented Answer: 09. Not applicable ? Not attempted and the patient did not perform this activity prior to the current illness, exacerbation or injury. Recommendation: 05. Setup or clean-up assistance ? [place] sets up or cleans up; patient completes activity. [place] assists only prior to or following the activity. BH5647 QT1866.C.2 - Lying to sitting on side of bed: The ability to move from lying on the back to sitting on the side of the bed with feet flat on the floor, and with no back support. Documented Answer: 09. Not applicable ? Not attempted and the patient did not perform this activity prior to the current illness, exacerbation or injury. Recommendation: 05. Setup or clean-up assistance ? [place] sets up or cleans up; patient completes activity. [place] assists only prior to or following the activity. YD0331 OE6613.E.2 - Chair/rro-ge-[id number] transfer: The ability to transfer to and from a bed to a chair (or wheelchair). Documented Answer: 09. Not applicable ? Not attempted and the patient did not perform this activity prior to the current illness, exacerbation or injury. Recommendation: 05. Setup or clean-up assistance ? [place] sets up or cleans up; patient completes activity. [place] assists only prior to or following the activity. ZQ2678 MW5493.I.2 - Walk 10 feet: Once standing, the ability to walk at least 10 feet in a room, corridor, or similar space. If SOC/GARRY performance is coded 07, 09, 10 or 88, skip to [id number], 1 step (curb) Documented Answer: 06. Independent ? Patient completes the activity by him/herself with no assistance from a helper. Recommendation: 05. Setup or clean-up assistance ? [place] sets up or cleans up; patient completes activity. [place] assists only prior to or following the activity. UY9028 BR3306.J.2 - Walk 50 feet with two turns: Once standing, the ability to walk 50 feet and make two turns. Documented Answer: 06. Independent ? Patient completes the activity by him/herself with no assistance from a helper. Recommendation: 05. Setup or clean-up assistance ? [place] sets up or cleans up; patient completes activity. [place] assists only prior to or following the activity. EF5605 ON2958.K.2 - Walk 150 feet: Once standing, the ability to walk at least 150 feet in a corridor or similar space. Documented Answer: 06. Independent ? Patient completes the activity by him/herself with no assistance from a helper. Recommendation: 05. Setup or clean-up assistance ? [place] sets up or cleans up; patient completes activity. [place] assists only prior to or following the activity. CS5057 TS3735.L.2 - Walking 10 feet on uneven surfaces: The ability to walk 10 feet on uneven or sloping surfaces (indoor or outdoor), such as turf or gravel. Documented Answer: 06. Independent ? Patient completes the activity by him/herself with no assistance from a helper. Recommendation: 05. Setup or clean-up assistance ? [place] sets up or cleans up; patient completes activity. [place] assists only prior to or following the activity. TB4276 QT2044.M.2 - 1 step (curb): The ability to go up and down a curb and/or up and down one step. If SOC/GARRY performance is coded 07, 09, 10 or 88, skip to [id number], Picking up object. Documented Answer: 06. Independent ? Patient completes the activity by him/herself with no assistance from a helper. Recommendation: 05. Setup or clean-up assistance ? [place] sets up or cleans up; patient completes activity. [place] assists only prior to or following the activity. DE5571 RY4703.N.2 - 4 steps: The ability to go up and down four steps with or without a rail. IF SOC/GARRY performance is coded 07, 09, 10 or 88, skip to [id number], Picking up object. Documented Answer: 06. Independent ? Patient completes the activity by him/herself with no assistance from a helper. Recommendation: 05. Setup or clean-up assistance ? [place] sets up or cleans up; patient completes activity. [place] assists only prior to or following the activity. EP9505 BC0706.O.2 - 12 steps: The ability to go up and down 12 steps with or without a rail. Documented Answer: 06. Independent ? Patient completes the activity by him/herself with no assistance from a helper. Recommendation: 05. Setup or clean-up assistance ? [place] sets up or cleans up; patient completes activity. [place] assists only prior to or following the activity. M1028 - Comorbidities and Co-existing Conditions Recommendation: 3 - None of the above 11/18/2018 Daniela GOLDMAN documented in this encounter Care Teams Shipping Technician Relationship Specialty Start Date End Date Dominic Fernando MD [address] [address] [place] [address] INTERNAL MEDICINE [place], [place] [id number] PCP - General 08/13/17 documented as of this encounter
--- OUTSIDE RECORDS SUMMARY | 2024-09-04 17:10 | XMS_ITS | Encounter Summary ---
Author Organization [facility] Home Care Servic es Address [address] [place] [address] Phone Care Team Providers Care Supervisor Coffee Name Role Phone Dominic Fernando MD Primary Care Provider [phone] Encounter Details Date Type Department Care Team (Late st Contact Info) Description 11/13/2018 Orders Only [facility] Home Health - [address] [place] [address] Kemal Wright MD [address] [place] [address] [address] FRYE [address] [facility] [address] [place] [address] Social History Tobacco Use Types Packs/Day Years Used Date Smoking Tobacco: Every Day Cigarettes Smokeless Tobacco: Current Comments:quitting now, 1 pac k last 2-3 days Alcohol Use Standard Drinks/Week Comments No 0 (1 standard drink = 0.6 oz pur e alcohol) Comments No Sex and Gender Information Value Date Recorded Sex Assigned at Not on file Legal Sex Female 11:26 PM DISTRIBUTION SYSTEM OPERATOR Gender Identity Not on file Sexual Orientation Not on file documented as of this encounter Plan of Treatment Not on file documented as of this encounter Visit Diagnoses Not on filedocumented in this encounter Care Teams Supervisor Coffee Relationship Specialty Start Date End Date Dominic Fernando MD [address] INTERNAL MEDICINE [place], [place] [id number] PCP - General 08/13/17 documented as of this encounter
--- OUTSIDE RECORDS SUMMARY | 2024-09-04 17:10 | XMS_ITS | Encounter Summary ---
Author Organization [facility] Healthcare Address [address] [place] [address] Care Team Providers Care Academic Intern Name Role Phone Dominic Fernando MD Primary Care Provider [phone] Encounter Details Date Type Department Care Team (Late st Contact Info) Description 11/14/2018 1:35 PM RECYCLABLE MATERIALS DISTRIBUTOR Lab [address] [id number] Social History Tobacco Use Types Packs/Day Years Used Date Smoking Tobacco: Every Day Cigarettes Smokeless Tobacco: Current Comments:quitting now, 1 pac k last 2-3 days Alcohol Use Standard Drinks/Week Comments No 0 (1 standard drink = 0.6 oz pur e alcohol) Comments No Sex and Gender Information Value Date Recorded Sex Assigned at Not on file Legal Sex Female 11:26 PM RECYCLABLE MATERIALS DISTRIBUTOR Gender Identity Not on file Sexual Orientation Not on file documented as of this encounter Plan of Treatment Not on file documented as of this encounter Procedures Procedure Name Priority Date/Time Associated Diagnosis Comments CBC WITHOUT DIFFERENTIAL STAT 11/14/2018 11:06 AM RECYCLABLE MATERIALS DISTRIBUTOR documented in this encounter Results * (ABNORMAL) CBC without differential (11/14/2018 11:06 AM RECYCLABLE MATERIALS DISTRIBUTOR) WBC 7.8 3.8 - 9.9 K/cumm [facility] Hgb 10.3(L) 11.9 - 15.5 g/dL [facility] Hct 31.5(L) 35.6 - 45.5 % [facility] Plt 206 150 - 400 K/cumm [facility] MPV 10.5 9.1 - 12.3 fL [facility] RBC 3.64(L) 3.90 - 5.20 M/cumm [facility] MCV 86.5 81.3 - 96.4 fL [facility] MCH 28.3 27.1 - 33.3 pg [facility] MCHC 32.7 32.3 - 35.7 g/dL [facility] RDW CV 13.6 11.1 - 14.9 % [facility] NRBC abs 0.00 0.00 - 0.01 K/cumm [facility]) Blood specimen (specimen) 11/14/2018 11:06 AM RECYCLABLE MATERIALS DISTRIBUTOR 11/14/2018 1:31 PM RECYCLABLE MATERIALS DISTRIBUTOR Narrative [facility] ([facility] - 11/14/2018 1:34 PM RECYCLABLE MATERIALS DISTRIBUTOR us Kemal Wright MD LAB BLOOD ORDERABLES Final R esult [facility] ([facility]) [facility] Department [place] [address] documented in this encounter Visit Diagnoses Not on filedocumented in this encounter Care Teams Academic Intern Relationship Specialty Start Date End Date Dominic Fernando MD [address] [place] [address] PCP - General 08/13/17 documented as of this encounter
--- OUTSIDE RECORDS SUMMARY | 2024-09-04 17:10 | XMS_ITS | Encounter Summary ---
Author Organization [facility] Healthcare Address [address] [place] [address] Care Team Providers Care Rubbish Collection Supervisor Name Role Phone Dominic Fernando MD Primary Care Provider [phone] Encounter Details Date Type Department Care Team (Late st Contact Info) Description 11/11/2018 2:02 PM DECORATOR INSPECTOR Anesthesia Event [facility] Operating Room [address] [place] [address] [place] [id number] [facility] [place] [address] Halley Lind CRNA 1 [facility] [place] [address] Anesthesia Record Procedure Summary Procedure Name Responsible Anesthesiologist Anesthesia Start Time Anesthesia Stop Time Right total knee arthroplasty (Right: Knee) Calvin Brantley MD 11/11/18 1402 11/11/18 1632 Events Date Time Event Comment 11/11/2018 1136 1402 In Room 1402 An Start 1402 An Start Data 1412 Spinal Placed 1412 Anesthesia Ready 1448 Incision Start 1448 Proc Start 1624 Proc Fin 1625 an stop data 1627 Out of Room 1632 Handoff to RN I completed my handoff to the receiving nurse during which we: 1. Patient identified 2. Responsible provider identified 3. Pertinent medical history reviewed 4. Procedure type and surgical course discussed 5. Intraoperative anesthetic management and any significant issues discussed 6. Expectations and concerns for postop period discussed 7. Questions solicited from receiving nurse 8. Patient disposition at the time of handoff: PACU 1632 An Stop 1634 Release from care Meds Name Total bupivacaine 0.5 % PF intrathecal 3 mL propofol 710.46 mg fentaNYL 100 mcg midazolam 4 mg ePHEDrine 30 mg ondansetron 4 mg epinePHRINE 1:200,000-bupivacaine 0.25 % 30 mL dexamethasone 10 mg/mL 5 mg Lactated Ringer's (LR) infusion 1,700 mL * Agents Name O2 Sevoflurane Inspired Sevoflurane * Blood No blood administrations on file. Lines, Drains, and Airways Type Details Placement Removal Peripheral IV Placement Date: 11/11/18; Placement Time: 1150; Catheter Size: 20 G; Orientation: Right; Location: Hand; Inserted by: Ester Pryor; Insertion Attempts: 2; Patient Tolerance: Tolerated well; Removal Date: 11/12/18; Removal Time: 1353 11/11/18 1150 by Ester Marte RN 11/12/18 1353 by Lexie Kurtz RN RETIRED Surgical Site 11/11/18; 1523; Right; Knee; 08/18/24 (Retired LDA, Removed/Completed by Catacel with LDA Utility); 1213 (Retired LDA, Removed/Completed by Catacel with LDA Utility) 11/11/18 1523 by Purnima [...] on file Legal Sex Female 11:26 PM DECORATOR INSPECTOR Gender Identity Not on file Sexual Orientation Not on file documented as of this encounter OR Notes * Anesthesia Postprocedure Evaluation - Halley Lind CRNA - 11/11/2018 4:33 PM CST Patient: Gege Vidal Procedure Summary Date: 11/11/18 Room / Location: [facility] OR [address] [place] [address] OPERATING ROOM Anesthesia Start: 1402 Anesthesia Stop: 1632 Procedure: Right total knee arthroplasty (Right Knee) Diagnosis: Primary osteoarthritis of right knee (Primary osteoarthritis of right knee [M17.11]) Provider: Kemal Wright MD Responsible Provider: Calvin Brantley MD Anesthesia Type: spinal, PNB - single shot ASA Status: 3 Anesthesia Type: spinal, PNB - single shot Last vitals BP 124/56 Pulse 66 Temp 37 ??C (98.6 ??F) (Tympanic) Resp 22 SpO2 100% Anesthesia Post Evaluation Patient location during evaluation: PACU Patient participation: complete - patient participated Level of consciousness: fully awake Pain score: 0 Pain management: adequate Airway patency: adequate Evidence of recall: no Anesthetic complications: no Cardiovascular status: acceptable Respiratory status: acceptable Hydration status: acceptable Pt is: normothermic Nausea/Vomiting status: none RATOR INSPECTOR * Anesthesia Procedure Notes - Halley Lind CRNA - 11/11/2018 2:26 PM CSTAssociated Order(s): ANESTHESIA SPINAL BLOCK Spinal Block Start time: 11/11/2018 2:08 PM End time: 11/11/2018 2:13 PM Reason for block: primary anesthetic Staff: Placed by: LABOR TRAINER:HALLEY LIND Procedure prep: Preprocedure checklist: patient identified, procedure contraindications assessed, site marked, procedure consent, surgical consent, IV checked, risks, benefits and alternatives discussed, monitors and equipment checked and timeout performed Patient position: sitting Procedure performed while patient: sedate with meaningful contact Monitoring: oximetry and blood pressure Prep solution: chlorhexadine/alcohol and povidone-iodine Spinal: Approach: midline Introducer used: yes Location: L3-4 Spinal injection: CSF demonstrated, no aspiration of heme and no paresthesias noted Number of attempts: 1 Spinal Needle: Needle type: Jayjay Needle gauge: 25 G Needle length: 9 cm Assessment: Sensory deficit - left: T8 RATOR INSPECTOR * Anesthesia Procedure Notes - Calvin Brantley MD - 11/11/2018 12:46 PM DECORATOR INSPECTOR Associated Order(s): ANESTHESIA PERIPHERAL BLOCK Peripheral Block Start time: 11/11/2018 12:30 PM End time: 11/11/2018 12:35 PM Reason for block: post-op pain management per surgeon request Ultrasound image in chart or stored: yes Block type: single shot Laterality: right Block type: femoral nerve block (distal mid thigh ) Staff: Placed by: Anesthesiologist: CALVIN BRANTLEY Procedure prep: Preprocedure checklist: patient identified, procedure contraindications assessed, site marked, procedure consent, surgical consent, IV checked, risks, benefits and alternatives discussed, monitors and equipment checked and timeout performed Patient position: supine Procedure performed while patient: sedate with meaningful contact Monitoring: oximetry, blood pressure and ECG Supplemental O2: nasal cannula Prep solution: chlorhexidine/alcohol PPE: provider hat/mask and sterile gloves Skin infiltrated with lidocaine 1%: yes Peripheral nerve block: Technique: ultrasound guided Needle type: insulated Needle gauge: 21 G Needle length: 100 mm Injection assessment: injection made incrementally with constant monitoring, local visualized surrounding nerve on ultrasound, negative aspiration for heme, no paresthesias noted, see flowsheet for medication details and normal resistance to injection Assessment: Block success: complete Events: patient tolerated procedure well with no complications RATOR INSPECTOR * Anesthesia Preprocedure Evaluation - Calvin Brantley MD - 11/11/2018 11:09 AM CST Anesthesia Evaluation Gege Vidal is a 58 y.o. female Procedure(s): Right total knee arthroplasty [employer], TENS, CPM in hospital, cooling unit, 1liter beta rinse, and Depuy cement and quick set cement HISTORY Past Medical History Neurological + CVA/Stroke Number of CVA episodes: [...] Diagnosis ??? Primary osteoarthritis of right knee Past Medical History: Diagnosis Date ??? Cervical [...] tablet ergocalciferol (VITAMIN D) 50,000 unit capsule levothyroxine (SYNTHROID, LEVOTHROID) [address] (PROTONIX) 20 mg EC tablet XARELTO 20 mg tablet Current Facility-Administered Medications: ??? bacitracin 100,000 Units, polymyxin B 1,000,000 Units in sodium chloride 0.9% 1,000 mL irrigation solution, , irrigation, Once ??? bacitracin 100,000 Units, polymyxin B 1,000,000 Units in sodium chloride 0.9% 1,000 mL irrigation solution, , irrigation, Once ??? bupivacaine (MARCAINE) 50 mg, EPINEPHrine 0.3 mg, ketorolac (TORADOL) 30 mg in sodium chloride 0.9% 20 mL topical solution, , topical, Once ??? ceFAZolin (ANCEF) 1 gram/10 mL in sterile water (premix) 2,000 mg, 2,000 mg, intravenous, Once ??? celecoxib (CeleBREX) capsule 400 mg, 400 mg, oral, Once ??? Lactated Ringer's (LR) infusion, 30 mL/hr, intravenous, Continuous ??? oxyCODONE ER (OxyCONTIN) extended release tablet 20 mg, 20 mg, oral, Once ??? sodium chloride 0.9% flush 0.5-20 mL, 0.5-20 mL, intra-catheter, PRN ??? tobramycin (NEBCIN) 152 mg in sodium chloride 0.9% 100 mL IVPB, 152 mg, intravenous, Once ??? tranexamic acid (CYKLOKAPRON) 3,000 mg in sodium chloride 0.9% 100 mL irrigation solution, 3,000 mg, irrigation, Once Social History Smoking Status ??? Current Every [...] Son ??? Diabetes Son PAT Physical Exam Vitals: 11/11/18 1101 BP: 119/78 Pulse: 78 Resp: 18 Temp: 37 ??C (98.6 ??F) SpO2: 97% PT: 11/03/2018: 17.3 sec* INR: 11/03/2018: 1.52* APTT: 11/03/2018: 42.4 sec* Hgb A1C: No results found for requested labs within last 720 hours. CBC RBC: 11/03/2018: 4.94 M/cumm RDW: No results found for requested labs within last 720 hours. MCHC: 11/03/2018: 33.3 g/dL MCH: 11/03/2018: 28.1 pg MCV: 11/03/2018: 84.6 fL Hct: 11/03/2018: 41.8 % Hgb: 11/03/2018: 13.9 g/dL WBC: 11/03/2018: 7.6 K/cumm MPV: 11/03/2018: 10.1 fL Platelets: 11/03/2018: 295 K/cumm RDW CV: 11/03/2018: 13.5 % RDW Sd: 11/03/2018: 42.1 fL BMP [...] findings of the anesthesia pre-evaluation assessment dated: 11/11/2018. Airway Exam: Mallampati: II Cervical ROM: FROM TM distance: normal Jaw ROM: full Cardiovascular Exam: Rate: regular Rhythm: regular Pulmonary Exam: LCTA, bilat Dental Exam: Edentulous, upper dentures and lower dentures Skin Exam: Skin is warm. Current state: Patient's current state is cooperative and interactive. Anesthesia Plan ASA 3 Planned anesthesia: Spinal and PNB - single shot Lower extremity: femoral nerve block (distal mid thigh) Induction: Induction: intravenous. Postoperative Plan: Postoperative administration opioids intended. No postoperative mechanical ventilation intended. Patient's planned disposition post procedure is Floor. Informed Consent: Discussed plan with LABOR TRAINER. Anesthesia plan and risks discussed with patient. Consent and Attending signature: I and/or my designee have discussed the anesthesia plan, benefits, possible alternatives, parental presence at time of induction (if indicated), and clinically relevant risks that may include dental injury, unintentional awareness, and/or other complications. The patient and/or parent/legal guardian understand, and agree to proceed. All questions answered. RATOR INSPECTOR RATOR INSPECTOR documented in this encounter Plan of Treatment Not on file documented as of this encounter Procedures Procedure Name Priority Date/Time Associated Diagnosis Comments ANESTHESIA SPINAL BLOCK Routine 11/11/2018 2:26 PM DECORATOR INSPECTOR Procedure Note - Halley Lind CRNA - 11/11/2018 2:26 PM CSTThis note is in progress. Spinal Block Start time: 11/11/2018 2:08 PM End time: 11/11/2018 2:13 PM Reason for block: primary anesthetic Staff: Placed by: LABOR TRAINER:HALLEY LIND Procedure prep: Preprocedure checklist: patient identified, procedure contraindicationsassessed, site marked, procedure consent, surgical consent, IV checked,risks, benefits and alternatives discussed, monitors and equipment checkedand timeout performed Patient position: sitting Procedure performed while patient: sedate with meaningful contact Monitoring: oximetry and blood pressure Prep solution: chlorhexadine/alcohol and povidone-iodine Spinal: Approach: midline Introducer used: yes Location: L3-4 Spinal injection: CSF demonstrated, no aspiration of heme and noparesthesias noted Number of attempts: 1 Spinal Needle: Needle type: Jayjay Needle gauge: 25 G Needle length: 9 cm Assessment: Sensory deficit - left: T8 ANESTHESIA PERIPHERAL BLOCK Routine 11/11/2018 12:46 PM DECORATOR INSPECTOR Procedure Note - Calvin Brantley MD - 11/11/2018 12:46 PM CSTThis note is in progress. Peripheral Block Start time: 11/11/2018 12:30 PM End time: 11/11/2018 12:35 PM Reason for block: post-op pain management per surgeon request Ultrasound image in chart or stored: yes Block type: single shot Laterality: right Block type: femoral nerve block (distal mid thigh ) Staff: Placed by: Anesthesiologist: CALVIN BRANTLEY Procedure prep: Preprocedure checklist: patient identified, procedure contraindicationsassessed, site marked, procedure consent, surgical consent, IV checked,risks, benefits and alternatives discussed, monitors and equipment checkedand timeout performed Patient position: supine Procedure performed while patient: sedate with meaningful contact Monitoring: oximetry, blood pressure and ECG Supplemental O2: nasal cannula Prep solution: chlorhexidine/alcohol PPE: provider hat/mask and sterile gloves Skin infiltrated with lidocaine 1%: yes Peripheral nerve block: Technique: ultrasound guided Needle type: insulated Needle gauge: 21 G Needle length: 100 mm Injection assessment: injection made incrementally with constantmonitoring, local visualized surrounding nerve on ultrasound, negativeaspiration for heme, no paresthesias noted, see flowsheet for medicationdetails and normal resistance to injection Assessment: Block success: complete Events: patient tolerated procedure well with no complications documented in this encounter Visit Diagnoses Not on filedocumented in this encounter Administered Medications Inactive Administered Medications - up to 3 most recent administrations Medication Order MAR Action Action Date Dose Rate Site bupivacaine (MARCAINE) 0.5 % (5 mg/mL) preservative free injection other, As needed, Starting on Sat11/11/18 at 1410, Anesthesia Intra-op Given 11/11/2018 2:10 PM DECORATOR INSPECTOR 3 mL bupivacaine-EPINEPHrine (MARCAINE with EPI) 0.25 %-1:200,000 preservative free injection As needed, Starting on Sat11/11/18 at 1235, Anesthesia Intra-op Given 11/11/2018 12:35 PM DECORATOR INSPECTOR 30 mL dexamethasone (DECADRON) injection solution Administer over 2 Minutes, As needed, Starting on Sat11/11/18 at 1457, Anesthesia Intra-op Given 11/11/2018 2:57 PM DECORATOR INSPECTOR 5 mg ePHEDrine injection intravenous, Administer over 5 Minutes, As needed, Starting on Sat11/11/18 at 1430, Anesthesia Intra-op Given 11/11/2018 4:15 PM DECORATOR INSPECTOR 10 mg Given 11/11/2018 3:00 PM DECORATOR INSPECTOR 10 mg Given 11/11/2018 2:30 PM DECORATOR INSPECTOR 10 mg fentaNYL (SUBLIMAZE) preservative free injection intravenous, As needed, Starting on Sat11/11/18 at 1230, Anesthesia Intra-op Given 11/11/2018 12:30 PM DECORATOR INSPECTOR 100 mc g Lactated Ringer's (LR) infusion 30 mL/hr, intravenous, Continuous, Starting on Sat11/11/18 at 1145, Pre-Op New Bag 11/11/2018 2:52 PM DECORATOR INSPECTOR New Bag 11/11/2018 12:07 PM DECORATOR INSPECTOR 30 mL/hr 30 mL/hr midazolam (VERSED) preservative free injection intravenous, Administer over 2 Minutes, As needed, Starting on Sat11/11/18 at 1230, Anesthesia Intra-op Given 11/11/2018 2:05 PM DECORATOR INSPECTOR 2 mg Given 11/11/2018 12:30 PM DECORATOR INSPECTOR 2 mg ondansetron (ZOFRAN) injection intravenous, Administer over 2 Minutes, As needed, nausea, vomiting, Starting on Sat11/11/18 at 1457, Anesthesia Intra-op Given 11/11/2018 2:57 PM DECORATOR INSPECTOR 4 mg propofol (DIPRIVAN) IV intravenous, Continuous PRN, Starting on Sat11/11/18 at 1420, Anesthesia Intra-op Rate/Dose Change 11/11/2018 3:45 PM DECORATOR INSPECTOR 65 mcg/kg/min 33.85 mL/hr Rate/Dose Change 11/11/2018 3:00 PM DECORATOR INSPECTOR 75 mcg/kg/min 39.0 6 mL/hr Rate/Dose Change 11/11/2018 2:53 PM DECORATOR INSPECTOR 80 mcg/kg/min 41.6 6 mL/hr documented in this encounter Orders Procedures Count Last Ordered Date First Orde red Date ANESTHESIA PERIPHERAL BLOCK 1 11/11/2018 ANESTHESIA SPINAL BLOCK 1 11/11/2018 documented in this encounter Care Teams Rubbish Collection Supervisor Relationship Specialty Start Date End Date Dominic Fernando MD [address] [place] [address] PCP - General 08/13/17 documented as of this encounter
--- OUTSIDE RECORDS SUMMARY | 2024-09-04 17:11 | XMS_ITS | Encounter Summary ---
Author Organization [facility] Medical [facility] Address [address] [place] [address] Care Team Providers Care Au Pair Name Role Phone Dominic Fernando MD Primary Care Provider [phone] Reason for Visit * Reason Onset Date Comments surgery clearance 08/18/2018 Encounter Details Date Type Department Care Team (Late st Contact Info) Description 08/18/[address] [facility] [address] [place] [phone] Kemal Wright MD [address] [place] [address] [address] [place], [place] [id number] surgery clearance Social History Tobacco Use Types Packs/Day Years Used Date Smoking Tobacco: Every Day Smokeless Tobacco: Never Comments Unknown Sex and Gender Information Value Date Recorded Sex Assigned at Not on file Legal Sex Female 11:26 PM ACID CHANGER Gender Identity Not on file Sexual Orientation Not on file documented as of this encounter Miscellaneous Notes * Telephone Encounter - Tawana Wood MA - 08/19/2018 8:24 AM ACID CHANGER Patient contacting PCP for clearance letter CHANGER * Telephone Encounter - Ciara Belcher - 08/18/2018 4:34 PM CST Patient called, left message about a surgery clearance that was to be faxed to us today. Please call pateint. CHANGER documented in this encounter Plan of Treatment Not on file documented as of this encounter Visit Diagnoses Not on filedocumented in this encounter Care Teams Au Pair Relationship Specialty Start Date End Date Dominic Fernando MD [address] [place] [address] PCP - General 08/13/17 documented as of this encounter
--- OUTSIDE RECORDS SUMMARY | 2024-09-04 17:11 | XMS_ITS | Encounter Summary ---
Author Organization [facility] Address [address] [place] [address] Care Team Providers Care Fisher Lobster Name Role Phone Dominic Fernando MD Primary Care Provider [phone] Reason for Referral * Diagnostic Imaging (Routine) - Closed Specialty Diagnoses / Procedures Referred By Contac t Referred To Contact Diagnoses Right arm pain Procedures XR Elbow Right 3 or More Views Juanita Mckay PA Phone: tel: fax: Referral ID Status Reason Start Date Expiration Date Visits Re quested Visits Authorized [id number] Closed 10/01/2018 04/11/2020 1 1 NT TODDLER LEAD TEACHER * Diagnostic Imaging (Routine) - Closed Specialty Diagnoses / Procedures Referred By Contac t Referred To Contact Diagnoses Right arm pain Procedures XR Shoulder Right 2 or More Views Juanita Mckay PA Phone: tel: fax: Referral ID Status Reason Start Date Expiration Date Visits Re quested Visits Authorized [id number] Closed 10/01/2018 04/11/2020 1 1 NT TODDLER LEAD TEACHER Reason for Visit * Reason Comments Pain Encounter Details Date Type Department Care Team (Late st Contact Info) Description 10/01/2018 8:15 AM INFANT TODDLER LEAD TEACHER Office Visit [facility] Orthopedics and Sports Medicine [address] [address] Juanita Mckay PA [address] [place] [address] [address] [place] [address] Closed nondisplaced fracture of right acromial process, initial encounter (Primary Dx); Contusion of right elbow, initial encounter; Right arm pain; Primary osteoarthritis of right knee; Fall, initial encounter Social History Tobacco Use Types Packs/Day Years Used Date Smoking Tobacco: Every Day Smokeless Tobacco: Never Comments Unknown Sex and Gender Information Value Date Recorded Sex Assigned at Not on file Legal Sex Female 11:26 PM INFANT TODDLER LEAD TEACHER Gender Identity Not on file Sexual Orientation Not on file documented as of this encounter Last Filed Vital Signs Vital Sign Reading Time Taken Comments Blood Pressure 116/73 10/01/2018 8:21 AM INFANT TODDLER LEAD TEACHER Pulse 86 10/01/2018 8:21 AM INFANT TODDLER LEAD TEACHER Temperature - - Respiratory Rate - - Oxygen Saturation - - Inhaled Oxygen Concentration - - Weight 85.3 kg (188 lb) 10/01/2018 8:21 AM INFANT TODDLER LEAD TEACHER Height 162.6 cm (5' 4 ) 10/01/2018 8:21 AM INFANT TODDLER LEAD TEACHER Body Mass Index 32.27 10/01/2018 8:21 AM INFANT TODDLER LEAD TEACHER documented in this encounter Progress Notes * Juanita Mckay PA - 10/01/2018 8:15 AM CST Images from the original note were not included. NEW PATIENT VISIT Subjective CHIEF COMPLAINT She had concerns including Pain of the Right Shoulder. HISTORY OF PRESENT ILLINESS Pt here with complaints of right shoulder pain. She states that 09/17/18 she was playing on a hoverboard and fell backward, landing on her right side. She called her PCP 2 days later and they directed her to the ED as she had hit her head. Imaging was done at [facility]. She has XR here with her today. She states that her right elbow is what hurts the worst, but she does have some right shoulder soreness. She did go see Dr. Sheppard, as the ED at [place] had arranged that appt. She states he instructed her to come see us. He did advise her that she could d/c her sling. She is scheduled to undergo right TKA with Dr. Adriana auguste 10/14/18. Pain Assessment Pain Assessment: 0-10 Pain Score: 3 PAST MEDICAL HISTORY She has a past medical history of Cervical cancer ([facility]); H/O: hysterectomy; Hiatal hernia; History of blood clots; Poor circulation; Stroke (CMS/HCC); and Thyroid disease. PAST SURGICAL HISTORY She has a past surgical history that includes Cholecystectomy; Hysterectomy; Neck surgery; Knee arthroscopy; and Rotator cuff repair. MEDICATIONS She has a current medication list which includes the following prescription(s): aspirin, atorvastatin, cetirizine, cyanocobalamin, levothyroxine, levothyroxine, varenicline, ventolin hfa, xarelto, and aspirin. ALLERGIES She is allergic to codeine; latex; morphine; penicillins; and vancomycin. SOCIAL HISTORY She reports that she has been smoking. She has never used smokeless tobacco. FAMILY HISTORY Family History Problem Relation Age of Onset ??? Hypertension Mother ??? Cancer Mother ??? Arthritis Mother ??? Diabetes Mother ??? Heart disease Father ??? Diabetes Father ??? Clotting disorder Sister ??? Diabetes Sister ??? Stroke Son ??? Diabetes Son REVIEW OF SYSTEMS Review of Systems Constitutional: Negative for chills, fatigue and fever. Eyes: Negative for pain and visual disturbance. Respiratory: Negative for chest tightness and shortness of breath. Cardiovascular: Negative for chest pain and leg swelling. Gastrointestinal: Negative for abdominal pain, constipation, diarrhea and vomiting. Genitourinary: Negative for dysuria, frequency and urgency. Musculoskeletal: Negative for myalgias. Skin: Negative for rash and wound. Neurological: Negative for dizziness, weakness and light-headedness. Hematological: Does not bruise/bleed easily. Psychiatric/Behavioral: Negative for confusion and hallucinations. Objective PHYSICAL EXAM BP 116/73 Pulse 86 Ht 162.6 cm (5' 4 ) Wt 85.3 kg (188 lb) BMI 32.27 kg/m?? Right shoulder Inspection The patient has normal inspection of the right shoulder. Palpation Tenderness is present. The patient has tenderness in the acromion, lateral shoulder and greater tuberosity area(s). Range of motion The patient has reduced range of motion of the right shoulder. The patient has pain with range of motion of the right shoulder. Active forward flexion: 90 degrees. The patient has pain with active forward flexion of the right shoulder. Active abduction: 90 degrees. The patient has pain with active abduction of the right shoulder. Passive forward flexion: 160 degrees. The patient does not pain with passive forward flexion of the right shoulder. Passive internal rotation at 0 degrees 90 degrees. Passive external rotation at 0 degrees: 80 degrees. The patient does not have pain passive external rotation 0 degrees. Passive abduction: 150 degrees. The patient does not have pain with passvie abduction of the right shoulder. Right elbow Inspection Erythema: absent Swelling: milld Surgical scar/wound: absent. Palpation Tenderness: present. The patient has tenderness in the medial epicondyle area(s). Range of motion The patient has normal range of motion of the right elbow. The patient has pain with range of motion of the right elbow. Neurovascular The patient has normal vascular on the right side of their body. The patient has normal sensation. Tests Tinel's sign: negative Right hip The patient has nomal inspection, palpation, range of motion, strength, and stability of the right hip. Right knee Inspection The patient has normal inspection of the right knee. Swelling: mild Surgical scar/wound: absent. Skin temperature: normal Alignment: varus Gait: antalgic Palpation Tenderness: present. The tenderness is located in the medial joint line, lateral joint line and patella. Patellar tracking: normal Crepitus: positive Patella grind: positive Range of motion The patient has reduced range of motion of the right knee. The patient has pain with range of motion of the right knee. Flexion contracture: yes. Degrees: 11-20 Extensor lag: no. Stability The patient has normal AP and ML stability of the right knee. AP stability: stable ML stability: stable Strength The patient has 5/5 strength thoughout right knee. Th patient has 5/5 strength throughout with exceptions as noted below . Knee extension: 4/5 and pain limits strength Knee flexion: 4/5 and pain limits strength Neurovascular The patient has normal vascular on the right side of their body. The patient has normal sensation on the right side of their body. Special tests Gilberto: medial postive lateral positive REVIEW OF X-RAYS/STUDIES/LABS XR Shoulder Right 2 or More Views X-rays of the right shoulder are viewed and interpreted in clinic today. These demonstrate an acute, nondisplaced fracture of the acromion. XR Elbow Right 3 or More Views X-ray of the right elbow viewed and interpreted. There is no evidence of fracture, subluxation, or bony abnormality. XR and CT reviewed from [facility]; Assessment/Plan Gege was seen today for pain. Diagnoses and all orders for this visit: Closed nondisplaced fracture of right acromial process, initial encounter Contusion of right elbow, initial encounter Right arm pain - XR Shoulder Right 2 or More Views - XR Elbow Right 3 or More Views Primary osteoarthritis of right knee Fall, initial encounter Other orders - Cancel: Large Joint Arthrocentesis Procedures Plan Discussed and reviewed images of her XR with her. Discussed with Dr. Adriana Erazo for comfort Advised we postpone TKA until 11/11/18 She will f/u with me the week prior with repeat XR of right shoulder Conservative tx advised for her right elbow contusion; Further conservative measures including ice/heat, avoidance of aggravating activities, OTC NSAIDs/analgesics p.r.n. (if able to take), OTC analgesic creams reviewed with her today. All questions were answered. Patient expressed full understanding and agreement of plan. ELIZABETH Ray Cosigned by Kemal Wright MD at 10/07/2018 7:44 AM INFANT TODDLER LEAD TEACHER NT TODDLER LEAD TEACHER NT TODDLER LEAD TEACHER documented in this encounter Plan of Treatment Not on file documented as of this encounter Procedures Procedure Name Priority Date/Time Associated Diagnosis Comments XR SHOULDER RIGHT 2 OR MORE VIEWS Schedule Routine, Read Routine (OP Routine) 10/01/2018 9:15 AM INFANT TODDLER LEAD TEACHER Right arm pain XR ELBOW RIGHT 3 OR MORE VIEWS Schedule Routine, Read Routine (OP Routine) 10/01/2018 9:15 AM INFANT TODDLER LEAD TEACHER Right arm pain documented in this encounter Results * XR Shoulder Right 2 or More Views (10/01/2018 9:15 AM INFANT TODDLER LEAD TEACHER) Anatomical Region Laterality Modality Upper Extremities, Shoulder Right Digi laurie Radiography Narrative 10/06/2018 4:46 PM INFANT TODDLER LEAD TEACHER X-rays of the right shoulder are viewed and interpreted in clinic today. ?? These demonstrate an acute, nondisplaced fracture of the acromion. ?? Rosa Stuart PA IMG XR PROCEDURES Final Result * XR Elbow Right 3 or More Views (10/01/2018 9:15 AM INFANT TODDLER LEAD TEACHER) Anatomical Region Laterality Modality Upper Extremities, Elbow Right Digital Radiography Narrative 10/06/2018 4:47 PM INFANT TODDLER LEAD TEACHER X-ray of the right elbow viewed and interpreted. ??There is no evidence of fracture, subluxation, or bony abnormality. Rosa Stuart PA IMG XR PROCEDURES Final Result documented in this encounter Visit Diagnoses Diagnosis Closed nondisplaced fracture of right acromial process, initial encounter- Primary Contusion of right elbow, initial encounter Right arm pain Pain in soft tissues of limb Primary osteoarthritis of right knee Fall, initial encounter documented in this encounter Discontinued Medications Medication Sig Discontinue Reason Start Date End Da te traMADol (ULTRAM) 50 mg tablet 09/19/2018 0 10/01/2018 documented as of this encounter Historical Medications * This list may reflect changes made after this encounter. Medication Sig Dispense Quantity Refills Last Filled Start D ate End Date traMADol (ULTRAM) 50 mg tablet 0 09/19/2018 10/01/2018 VENTOLIN HFA 90 mcg/actuation inhaler 09/30/2018 added in this encounter Care Teams Fisher Lobster Relationship Specialty Start Date End Date Dominic Fernando MD [address] [facility] [address] [place] [address] PCP - General 08/13/17 documented as of this encounter
--- OUTSIDE RECORDS SUMMARY | 2024-09-04 17:11 | XMS_ITS | Encounter Summary ---
Author Organization [facility] Healthcare Address [address] [place] [address] Care Team Providers Care Cotton Roll Packer Name Role Phone Miscellaneous, Not In File Primary Care Provider Unavailable Encounter Details Date Type Department Care Team (Latest Contact Info) Description 06/09/2017 3:55 PM CDT - 06/09/2017 11:59 PM CDT Hospital Encounter [facility] Discharge Disposition: Discharge to home or self care Social History Tobacco Use Types Packs/Day Years Used Date Smoking Tobacco: Never Assessed Comments Unknown Sex and Gender Information Value Date Recorded Sex Assigned at Not on file Legal Sex Female 11:26 PM 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
--- OUTSIDE RECORDS SUMMARY | 2024-09-04 17:11 | XMS_ITS | Encounter Summary ---
Author Organization [facility] Address [address] [place] [address] Care Team Providers Care Director Of Food And Beverage Services Name Role Phone Dominic Fernando MD Primary Care Provider [phone] Reason for Visit * Reason Onset Date Comments Surgical Clearance 08/27/2018 new clearance with no lovenox bridging Encounter Details Date Type Department Care Team (Late st Contact Info) Description 08/27/2018 Documentation [facility] Orthopedics and Sports Medicine [address] [place] [phone] Tawana Wood MA Surgical Clearance (new clearance with no lovenox bridging) Social History Tobacco Use Types Packs/Day Years Used Date Smoking Tobacco: Every Day Smokeless Tobacco: Never Comments Unknown Sex and Gender Information Value Date Recorded Sex Assigned at Not on file Legal Sex Female 11:26 PM GLASS FINISHER Gender Identity Not on file Sexual Orientation Not on file documented as of this encounter Progress Notes * Tawana Wood MA - 08/27/2018 1:33 PM CST New clearance letter with New instructions scanned into media, patient does not need lovenox bridging see clearance letter S FINISHER documented in this encounter Plan of Treatment Not on file documented as of this encounter Visit Diagnoses Not on filedocumented in this encounter Care Teams Director Of Food And Beverage Services Relationship Specialty Start Date End Date Dominic Fernando MD [address] [facility] [address] [place] [address] PCP - General 08/13/17 documented as of this encounter
--- OUTSIDE RECORDS SUMMARY | 2024-09-04 17:11 | XMS_ITS | Encounter Summary ---
Author Organization [facility] Medical [facility] Address [address] [place] [address] Care Team Providers Care Automatic Car Wash Attendant Name Role Phone Dominic Fernando MD Primary Care Provider [phone] Encounter Details Date Type Department Care Team (Late st Contact Info) Description 09/24/2018 Orders Only [facility] Orthopedics and Sports Medicine [address] [place] [address] Kemal Wright MD [address] [place] [address] [address] [place] [address] Primary osteoarthritis of right knee (Primary Dx) Social History Tobacco Use Types Packs/Day Years Used Date Smoking Tobacco: Every Day Smokeless Tobacco: Never Comments Unknown Sex and Gender Information Value Date Recorded Sex Assigned at Not on file Legal Sex Female 11:26 PM CONTRACT LEAD Gender Identity Not on file Sexual Orientation Not on file documented as of this encounter Plan of Treatment Not on file documented as of this encounter Visit Diagnoses Diagnosis Primary osteoarthritis of right knee- Primary documented in this encounter Orders General Supply Count Last Ordered Date First Or dered Date NEUROMUSCULAR ELECTRICAL STI MULATION (NMES) 1 09/24/2018 documented in this encounter Care Teams Automatic Car Wash Attendant Relationship Specialty Start Date End Date Dominic Fernando MD [address] [place], [place] [id number] PCP - General 08/13/17 documented as of this encounter
--- OUTSIDE RECORDS SUMMARY | 2024-09-04 17:11 | XMS_ITS | Encounter Summary ---
Author Organization [facility] Medical [facility] Address [address] [place] [address] Care Team Providers Care Spiritual Advisor Name Role Phone Dominic Fernando MD Primary Care Provider [phone] Reason for Visit * Reason Onset Date Comments called PCP 11/05/2018 Encounter Details Date Type Department Care Team (Late st Contact Info) Description 11/05/2018 Telephone [facility] Orthopedics and Sports Medicine [address] [place] [address] Shruti Mooney MA called PCP Social History Tobacco Use Types Packs/Day Years Used Date Smoking Tobacco: Every Day Cigarettes Smokeless Tobacco: Current Comments:quitting now, 1 pac k last 2-3 days Alcohol Use Standard Drinks/Week Comments No 0 (1 standard drink = 0.6 oz pur e alcohol) Comments Unknown Sex and Gender Information Value Date Recorded Sex Assigned at Not on file Legal Sex Female 11:26 PM ASSISTANT FRONT END MANAGER Gender Identity Not on file Sexual Orientation Not on file documented as of this encounter Miscellaneous Notes * Telephone Encounter - Shruti Mooney MA - 11/05/2018 1:27 PM CST Called PCP to check on clearance for her upcoming surgery next week. Dr. Fernando is supped to be reviewing reports and giving clearance STANT FRONT END MANAGER documented in this encounter Plan of Treatment Not on file documented as of this encounter Visit Diagnoses Not on filedocumented in this encounter Care Teams Spiritual Advisor Relationship Specialty Start Date End Date Dominic Fernando MD [address] [facility] [address] [place] [address] PCP - General 08/13/17 documented as of this encounter
--- OUTSIDE RECORDS SUMMARY | 2024-09-04 17:11 | XMS_ITS | Encounter Summary ---
Author Organization [facility] Healthcare Address [address] [place] [address] Care Team Providers Care Enologist Name Role Phone Miscellaneous, Not In File Primary Care Provider Unavailable Encounter Details Date Type Department Care Team (Latest Contact Info) Description 06/12/2017 4:57 AM CDT - 06/12/2017 6:28 AM CDT Hospital Encounter [facility] José Miguel Staley MD [address] [facility] [place], [place] [id number] Superficial foreign body of right little finger; Other foreign body or object entering through skin, initial encounter; Hyperlipidemia; Other retirement (current) drug therapy Social History Tobacco Use Types Packs/Day Years Used Date Smoking Tobacco: Never Assessed Comments Unknown Sex and Gender Information Value Date Recorded Sex Assigned at Not on file Legal Sex Female 11:26 PM CYCLE MANAGER Gender Identity Not on file Sexual Orientation Not on file documented as of this encounter Last Filed Vital Signs Vital Sign Reading Time Taken Comments Blood Pressure 120/67 06/12/2017 4:57 AM CDT Pulse 78 06/12/2017 4:57 AM CDT Temperature 36.2 ??C (97.2 ??F) 06/12/2017 4:57 AM CD T Respiratory Rate - - Oxygen Saturation 99% 06/12/2017 4:57 AM CDT Inhaled Oxygen Concentration - - Weight 86.2 kg (190 lb) 06/12/2017 4:57 AM CDT Height 162.6 cm (5' 4 ) 06/12/2017 4:57 AM CDT Body Mass Index 32.61 06/12/2017 4:57 AM CDT documented in this encounter Plan of Treatment Not on file documented as of this encounter Procedures Procedure Name Priority Date/Time Associated Diagnosis Comments XR FINGER 5TH PINKY RIGHT Routine 06/12/2017 12:00 AM CDT documented in this encounter Results * XR Finger 5th Pinky Right (06/12/2017 12:00 AM CDT) Anatomical Region Laterality Modality Upper Extremities, Hand, Fingers Right Radiographic Imaging 06/12/2017 Impressions 06/12/2017 5:56 AM CDT ??No acute bony abnormality. 1.4 mm linear density in the soft tissues projecting lateral to the head of the fifth middle phalanx may represent the splinter foreign body THIS IS AN ELECTRONICALLY VERIFIED REPORT 06/12/2017 5:52 AM: ??Bryce Epperson M.D. ?? Bryce Epperson M.D. MA:cecilia 05:52 AM 05:52 AM APO [EOD] Narrative 06/12/2017 5:56 AM CDT EXAMINATION: ??Right fifth finger 3 views HISTORY: ??Splinter at the right fifth finger lateral to the DIP joint occurred in the last 7-hours. COMPARISON: ??None FINDINGS: AP, oblique, and lateral views of the right fifth finger were obtained. No acute fracture or dislocation. There is a 1.4 mm linear density projecting over the soft tissues lateral to the head of the fifth middle phalanx as seen on the PA view. Procedure Note Provider, MD Adam - 01/31/2021 EXAMINATION: Right fifth finger 3 views HISTORY: Splinter at the right fifth finger lateral to the DIP jointoccurred in the last 7-hours. COMPARISON: None FINDINGS: AP, oblique, and lateral views of the right fifth finger were obtained. No acute fracture or dislocation. There is a 1.4 mm lineardensity projecting over the soft tissues lateral to the head of the fifth middle phalanx as seen on the PA view. IMPRESSION: No acute bony abnormality. 1.4 mm linear density in the soft tissues projecting lateral to the head of the fifth middle phalanx may represent the splinter foreign body THIS IS AN ELECTRONICALLY VERIFIED REPORT 06/12/2017 5:52 AM: Bryce Epperson M.D. Bryce Epperson M.D. MA:cecilia 05:52 AM 05:52 AM APO [EOD] Keshawn Claire DO IMG XR PROCEDURES Final Res ult documented in this encounter Visit Diagnoses Diagnosis Superficial foreign body of right little finger Other foreign body or object entering through skin, initial encounter Hyperlipidemia Other and unspecified hyperlipidemia Other retirement (current) drug therapy documented in this encounter Care Teams Enologist Relationship Specialty Start Date End Date Miscellaneous, Not In File PCP - General 01/23/1708/12 documented as of this encounter
--- OUTSIDE RECORDS SUMMARY | 2024-09-04 17:11 | XMS_ITS | Encounter Summary ---
Author Organization [facility] Address [address] [facility] [address] [place] [address] Care Team Providers Care Department Coordinator Name Role Phone Dominic Fernando MD Primary Care Provider [phone] Reason for Visit * Diagnostic Imaging (Routine) - Closed Specialty Diagnoses / Procedures Referred By Contac t Referred To Contact Diagnoses Pain in both knees, unspecified chronicity Procedures XR Knee Left 4+ View Kemal Wright MD Phone: tel: fax: Referral ID Status Reason Start Date Expiration Date Visits Re quested Visits Authorized [id number] Closed 07/23/2018 02/01/2020 1 1 Encounter Details Date Type Department Care Team (Latest Contact Info) Description 07/23/2018 11:16 AM MOLDING MACHINE TENDER - 07/23/2018 11:59 PM MOLDING MACHINE TENDER Hospital Encounter [facility] Orthopedics and Sports Medicine [address] [place] [phone] Discharge Disposition: Discharge to home or self care Social History Tobacco Use Types Packs/Day Years Used Date Smoking Tobacco: Every Day Smokeless Tobacco: Never Comments Unknown Sex and Gender Information Value Date Recorded Sex Assigned at Not on file Legal Sex Female 11:26 PM MOLDING MACHINE TENDER Gender Identity Not on file Sexual Orientation Not on file documented as of this encounter Medications at Time of Discharge cyanocobalamin (Vitamin B-12) 1,000 mcg tabletIndications :Prevention of Vitamin B12 Deficiency Take 1,000 mcg by mouth daily. levothyroxine (SYNTHROID, LEVOTHROID) 112 mcg tablet Take 112 mcg by mouth professor of early childhood education before breakfast. 07/21/2018 XARELTO 20 mg tablet Take 20 mg by mouth daily. 06/09/2018 aspirin 81 mg tablet Take 81 mg by mouth daily. 06/09/2018 11/15/2018 aspirin 81 mg tablet Take 81 mg by mouth. 11/03/2018 atorvastatin (LIPITOR) 20 mg tablet 02/01/2018 11/03/2018 cetirizine 10 mg capsule Take 10 mg by mouth daily as needed. 10/02/2019 levothyroxine (SYNTHROID, LEVOTHROID) 137 mcg tablet Take 137 mcg by mouth. 11/03/2018 varenicline (CHANTIX STARTING MONTH BOX) 0.5 mg (11)- 1 mg (42) tablet 04/14/2018 11/03/2018 documented as of this encounter Discharge Disposition Disposition Code Departure Means Destination Discharge to home or self care documented in this encounter Plan of Treatment Not on file documented as of this encounter Procedures Procedure Name Priority Date/Time Associated Diagnosis Comments XR KNEE LEFT 4 OR MORE VIEWS Schedule Routine, Read Routine (OP Routine) 07/23/2018 11:28 AM MOLDING MACHINE TENDER Pain in both knees, unspecified chronicity documented in this encounter Results * XR Knee Left 4+ View (07/23/2018 11:28 AM MOLDING MACHINE TENDER) Anatomical Region Laterality Modality Lower Extremities, Knee Left [facility] Imaging Narrative 07/23/2018 1:28 PM MOLDING MACHINE TENDER Mild degenerative changes left knee no fracture subluxation or dislocation us Kemal Wright MD IMG XR PROCEDURES Final Resu lt documented in this encounter Visit Diagnoses Not on filedocumented in this encounter Care Teams Department Coordinator Relationship Specialty Start Date End Date Dominic Fernando MD [address] [place] [id number] PCP - General 08/13/17 documented as of this encounter
--- OUTSIDE RECORDS SUMMARY | 2024-09-04 17:11 | XMS_ITS | Encounter Summary ---
Author Organization [facility] Address [address] [facility] [address] [place] [address] Care Team Providers Care Depot Agent Name Role Phone Dominic Fernando MD Primary Care Provider [phone] Reason for Visit * Diagnostic Imaging (Routine) - Closed Specialty Diagnoses / Procedures Referred By Contac t Referred To Contact Diagnoses Pain in both knees, unspecified chronicity Procedures XR Knee Right 4+ View Kemal Wright MD Phone: tel: fax: Referral ID Status Reason Start Date Expiration Date Visits Re quested Visits Authorized [id number] Closed 07/23/2018 02/01/2020 1 1 Encounter Details Date Type Department Care Team (Latest Contact Info) Description 07/23/2018 11:16 AM RISK MANAGEMENT INTERNSHIP - 07/23/2018 11:59 PM RISK MANAGEMENT INTERNSHIP Hospital Encounter [facility] Orthopedics and Sports Medicine [address] [place] [address] [phone] Discharge Disposition: Discharge to home or self care Social History Tobacco Use Types Packs/Day Years Used Date Smoking Tobacco: Every Day Smokeless Tobacco: Never Comments Unknown Sex and Gender Information Value Date Recorded Sex Assigned at Not on file Legal Sex Female 11:26 PM RISK MANAGEMENT INTERNSHIP Gender Identity Not on file Sexual Orientation Not on file documented as of this encounter Medications at Time of Discharge cyanocobalamin (Vitamin B-12) 1,000 mcg tabletIndications :Prevention of Vitamin B12 Deficiency Take 1,000 mcg by mouth daily. levothyroxine (SYNTHROID, LEVOTHROID) 112 mcg tablet Take 112 mcg by mouth dampener operator before breakfast. 07/21/2018 XARELTO 20 mg tablet [...] Date/Time Associated Diagnosis Comments XR KNEE RIGHT 4 OR MORE VIEWS Schedule Routine, Read Routine (OP Routine) 07/23/2018 11:27 AM RISK MANAGEMENT INTERNSHIP Pain in both knees, unspecified chronicity documented in this encounter Results * XR Knee Right 4+ View (07/23/2018 11:27 AM RISK MANAGEMENT INTERNSHIP) Anatomical Region Laterality Modality Lower Extremities, Knee Right [facility] Imaging Narrative 07/23/2018 1:28 PM RISK MANAGEMENT INTERNSHIP Severe osteoarthrosis right knee tricompartmental arthrosis no fractures subluxation or dislocation flexion contracture noted us Kemal Wright MD IMG XR PROCEDURES Final Resu lt documented in this encounter Visit Diagnoses Not on filedocumented in this encounter Care Teams Depot Agent Relationship Specialty Start Date End Date Dominic Fernando MD [address] [facility] [address] [place] [address] PCP - General 08/13/17 documented as of this encounter
--- OUTSIDE RECORDS SUMMARY | 2024-09-04 17:11 | XMS_ITS | Encounter Summary ---
Author Organization [facility] Address [address] [facility] [address] [place] [address] Care Team Providers Care Driver/Sales Workers Name Role Phone Dominic Fernando MD Primary Care Provider Reason for Visit * Reason Onset Date Comments xr disc 10/06/2018 Encounter Details Date Type Department Care Team (Late st Contact Info) Description 10/06/2018 Telephone [facility] Orthopedics and Sports Medicine [address] [facility] [address] [address] Max Galloway RT xr disc Social History Tobacco Use Types Packs/Day Years Used Date Smoking Tobacco: Every Day Smokeless Tobacco: Never Comments Unknown Sex and Gender Information Value Date Recorded Sex Assigned at Not on file Legal Sex Female 11:26 PM MANAGER OF HUMAN RESOURCES Gender Identity Not on file Sexual Orientation Not on file documented as of this encounter Miscellaneous Notes * Telephone Encounter - Max Galloway R-RT - 10/06/2018 7:45 AM MANAGER OF HUMAN RESOURCES Xr/ct disc r arm csp lidia GER OF HUMAN RESOURCES GER OF HUMAN RESOURCES documented in this encounter Plan of Treatment Not on file documented as of this encounter Visit Diagnoses Not on filedocumented in this encounter Care Teams Driver/Sales Workers Relationship Specialty Start Date End Date Dominic Fernando MD [address] [facility] 209 [place] [address] PCP - General 08/13/17 documented as of this encounter
--- OUTSIDE RECORDS SUMMARY | 2024-09-04 17:11 | XMS_ITS | Encounter Summary ---
Author Organization [facility] Address [address] [facility] [address] [place] [address] Care Team Providers Care Well Logging Captain Name Role Phone Dominic Fernando MD Primary Care Provider [phone] Reason for Referral * Diagnostic Imaging (Routine) - Closed Specialty Diagnoses / Procedures Referred By Contac t Referred To Contact Diagnoses Orthopedic aftercare Procedures XR Shoulder Right 2 or More Views Juanita Mckay PA Phone: tel: fax: [facility] Referral ID Status Reason Start Date Expiration Date Visits Re quested Visits Authorized [id number] Closed 11/03/2018 05/14/2020 1 1 HT DISPATCHER Reason for Visit * Reason Comments Follow-up Encounter Details Date Type Department Care Team (Late st Contact Info) Description 11/03/2018 10:00 AM FLIGHT DISPATCHER Office Visit [facility] Orthopedics and Sports Medicine [address] [facility] [address] [place] [address] Juanita Mckay PA [address] [place] [address] [address] [place] [address] Closed nondisplaced fracture of right acromial process with routine healing, subsequent encounter (Primary Dx) Social History Tobacco Use Types Packs/Day Years Used Date Smoking Tobacco: Every Day Cigarettes Smokeless Tobacco: Current Comments:quitting now, 1 pac k last 2-3 days Alcohol Use Standard Drinks/Week Comments No 0 (1 standard drink = 0.6 oz pur e alcohol) Comments Unknown Sex and Gender Information Value Date Recorded Sex Assigned at Not on file Legal Sex Female 11:26 PM FLIGHT DISPATCHER Gender Identity Not on file Sexual Orientation Not on file documented as of this encounter Last Filed Vital Signs Vital Sign Reading Time Taken Comments Blood Pressure 119/75 11/03/2018 9:31 AM FLIGHT DISPATCHER Pulse 78 11/03/2018 9:31 AM FLIGHT DISPATCHER Temperature - - Respiratory Rate - - Oxygen Saturation - - Inhaled Oxygen Concentration - - Weight 85.3 kg (188 lb) 11/03/2018 9:31 AM FLIGHT DISPATCHER Height 162.6 cm (5' 4 ) 11/03/2018 9:31 AM FLIGHT DISPATCHER Body Mass Index 32.27 11/03/2018 9:31 AM FLIGHT DISPATCHER documented in this encounter Progress Notes * Juanita Mckay PA - 11/03/2018 10:00 AM CST Images from the original note were not included. FOLLOW UP VISIT Subjective CHIEF COMPLAINT She had concerns including Follow-up of the Right Shoulder. HISTORY OF PRESENT ILLNESS Pt here for follow up of her right shoulder nondisplaced acromial fracture. She notes that shoulderpain is improving. She still has referred pain along her medial elbow, but notes that it does not hurt to move her shoulder as much and her ROM/function/use of the shoulder is improving. She was scheduled to undergo TKA at the end of Sep, but this was postponed due to her acromion fracture. She notes that at the end of Sep, she was hospitalized with tightness in her chest and facial drooping. She states that they told her this was a TIA. She is currently undergoing further w/u by her PCP and had a recent Sharmaine Scan. She also had duplex US done and had f/u with [facility] vascular, who monitors her carotid flow. Their note is reviewed in the EMR. Pain Assessment Pain Assessment: 0-10 Pain Score: 2 MEDICATIONS She has a current medication list which includes the following prescription(s): albuterol hfa, aspirin, cetirizine, cyanocobalamin, levothyroxine, pantoprazole dr, xarelto, and atorvastatin. REVIEW OF SYSTEMS Review of Systems Constitutional: Negative for chills, fatigue and fever. Musculoskeletal: Negative for arthralgias, gait problem, joint swelling and myalgias. Skin: Negative for rash and wound. Objective PHYSICAL EXAM BP 119/75 Pulse 78 Ht 162.6 cm (5' 4 ) Wt 85.3 kg (188 lb) BMI 32.27 kg/m?? Right shoulder Inspection The patient has normal inspection of the right shoulder. Palpation Tenderness is present. The patient has tenderness in the acromion, greater tuberosity and lateral shoulder area(s). Range of motion The patient has reduced range of motion of the right shoulder. The patient has pain with range of motion of the right shoulder. Active forward flexion: 150 degrees. The patient has pain with active forward flexion of the right shoulder. Active abduction: 150 degrees. The patient has pain with active abduction of the right shoulder. Passive forward flexion: 150 degrees. The patient does not pain with passive forward flexion of the right shoulder. Passive internal rotation at 0 degrees 90 degrees. Passive external rotation at 0 degrees: 80 degrees. The patient does not have pain passive external rotation 0 degrees. Passive abduction: 150 degrees. The patient does not have pain with passvie abduction of the right shoulder. Neurovascular The patient has normal vascular on the right side of her body. She has normal sensation on the right side of her body. Right elbow Inspection Erythema: absent Swelling: milld [...] XR Shoulder Right 2 or More Views XR reviewed, interpreted, and compared with prior views. There is evidence of a nondisplaced distalacromion fracture with healing noted, as demonstrated by callus formation and increased opacity. Fracture alignment remains acceptable without further displacement. No further acute changes noted. Assessment/Plan Gege was seen today for follow-up. Diagnoses and all orders for this visit: Closed nondisplaced fracture of right acromial process with routine healing, subsequent encounter - XR Shoulder Right 2 or More Views PLAN Reports of studies she had done at [facility] were scanned into EMR. She was notified that we need updated clearance from PCP to proceed with planned TKA of next , 11/11/18. If cleared, she will d/c her anticoagulants as planned. She will proceed with Joint Wellness class today; Brigette Sanchez and our MA, Montserrat Wood was notified that updated clearances must be received. We will request these from vascular surgery as well as PCP. If cleared, she may follow up with surgery as planned. Continue consdervative treatment for her acromion fracture; will Xr this in another 4-6 weeks. All questions were answered. Patient expressed full understanding and agreement of plan. ELIZABETH Ray Cosigned by Kemal Wright MD at 11/04/2018 7:29 AM FLIGHT DISPATCHER HT DISPATCHER HT DISPATCHER documented in this encounter Plan of Treatment Not on file documented as of this encounter Procedures Procedure Name Priority Date/Time Associated Diagnosis Comments XR SHOULDER RIGHT 2 OR MORE VIEWS Schedule Routine, Read Routine (OP Routine) 11/03/2018 1:12 PM FLIGHT DISPATCHER Closed nondisplaced fracture of right acromial process with routine healing, subsequent encounter documented in this encounter Results * XR Shoulder Right 2 or More Views (11/03/2018 1:12 PM FLIGHT DISPATCHER) Anatomical Region Laterality Modality Upper Extremities, Shoulder Right Digi laurie Radiography Narrative 11/03/2018 1:54 PM FLIGHT DISPATCHER XR reviewed, interpreted, and compared with prior views. ??There is evidence of a nondisplaced distal acromion fracture with healing noted, as demonstrated by callus formation and increased opacity. ??Fracture alignment remains acceptable without further displacement. ??No further acute changes noted. ?? Juanita JOHNSON IMG XR PROCEDURES Final Result documented in this encounter Visit Diagnoses Diagnosis Closed nondisplaced fracture of right acromial process with routine healing, subsequent encounter- Primary documented in this encounter Historical Medications * This list may reflect changes made after this encounter. pantoprazole DR (PROTONIX) 20 mg EC tablet Take 20 mg by mouth daily. 10/09/2018 atorvastatin (LIPITOR) 40 mg tablet Take 40 mg by mouth daily. 10/09/2018 albuterol HFA (VENTOLIN HFA) 90 mcg/actuation inhaler Inhale 2 puffs 2 (two) times a day as needed. 09/30/2018 10/02/2019 added in this encounter Care Teams Well Logging Captain Relationship Specialty Start Date End Date Dominic Fernando MD [address] [facility] [address] [facility] [address] [place] [address] PCP - General 08/13/17 documented as of this encounter
--- OUTSIDE RECORDS SUMMARY | 2024-09-04 17:11 | XMS_ITS | Encounter Summary ---
Author Organization [facility] Address [address] [facility] [address] [place] [address] Care Team Providers Care Corporate Manager Name Role Phone Dominic Fernando MD Primary Care Provider [phone] Encounter Details Date Type Department Care Team (Late st Contact Info) Description 11/03/2018 Telephone [facility] Orthopedics and Sports Medicine [address] [place] [address] Juanita Mckay PA [address] [place] [address] [address] Social History Tobacco Use Types Packs/Day Years Used Date Smoking Tobacco: Every Day Cigarettes Smokeless Tobacco: Current Comments:quitting now, 1 pac k last 2-3 days Alcohol Use Standard Drinks/Week Comments No 0 (1 standard drink = 0.6 oz pur e alcohol) Comments Unknown Sex and Gender Information Value Date Recorded Sex Assigned at Not on file Legal Sex Female 11:26 PM NEAR EAST ARCHEOLOGY PROFESSOR Gender Identity Not on file Sexual Orientation Not on file documented as of this encounter Miscellaneous Notes * Telephone Encounter - Tawana Wood MA - 11/05/2018 7:32 AM NEAR EAST ARCHEOLOGY PROFESSOR Noted, is patient still having surgery? EAST ARCHEOLOGY PROFESSOR * Telephone Encounter - Juanita Mckay PA - 11/04/2018 4:18 PM NEAR EAST ARCHEOLOGY PROFESSOR No, if proceeding with surgery, patient should stop anticoagulant 5 days prior to surgery. EAST ARCHEOLOGY PROFESSOR * Telephone Encounter - Tawana Wood MA - 11/03/2018 1:51 PM NEAR EAST ARCHEOLOGY PROFESSOR Per Juanita patient is working on these clearances, we should have an answer at the latest Saturday but patient must not stop anticoagulant EAST ARCHEOLOGY PROFESSOR * Telephone Encounter - Juanita Mckay PA - 11/03/2018 1:46 PM NEAR EAST ARCHEOLOGY PROFESSOR Montserrat, we are not cancelling yet, but she needs update on these clearances due to new event she had at the end of Sep. Her PCP has been working this up for her. She needs updated/new clearance EAST ARCHEOLOGY PROFESSOR * Telephone Encounter - Tawana Wood MA - 11/03/2018 11:22 AM NEAR EAST ARCHEOLOGY PROFESSOR Juanita I have clearances from PCP and oncology, are we cancelling surgery on 11/11/18? Clearances should be scanned under media EAST ARCHEOLOGY PROFESSOR documented in this encounter Plan of Treatment Not on file documented as of this encounter Visit Diagnoses Not on filedocumented in this encounter Care Teams Corporate Manager Relationship Specialty Start Date End Date Dominic Fernando MD [address] [facility] [address] [place] [address] PCP - General 08/13/17 documented as of this encounter
--- OUTSIDE RECORDS SUMMARY | 2024-09-04 17:11 | XMS_ITS | Encounter Summary ---
Author Organization [facility] Address [address] [facility] [address] [place] [address] Care Team Providers Care Body Stylist Name Role Phone Dominic Fernando MD Primary Care Provider [phone] Reason for Visit * Reason Onset Date Comments clearance received 11/06/2018 Encounter Details Date Type Department Care Team (Late st Contact Info) Description 11/06/2018 Telephone [facility] Orthopedics and Sports Medicine [address] [place] [address] Juanita Mckay PA [address] [place] [address] [address]IN [address] [place] [address] clearance received Social History Tobacco Use Types Packs/Day Years Used Date Smoking Tobacco: Every Day Cigarettes Smokeless Tobacco: Current Comments:quitting now, 1 pac k last 2-3 days Alcohol Use Standard Drinks/Week Comments No 0 (1 standard drink = 0.6 oz pur e alcohol) Comments Unknown Sex and Gender Information Value Date Recorded Sex Assigned at Not on file Legal Sex Female 11:26 PM ELECTROMECHANICAL ENGINEER Gender Identity Not on file Sexual Orientation Not on file documented as of this encounter Miscellaneous Notes * Telephone Encounter - Ever Nino PA - 11/07/2018 12:10 PM ELECTROMECHANICAL ENGINEER That's great thank you TROMECHANICAL ENGINEER * Telephone Encounter - Tawana Wood MA - 11/07/2018 7:31 AM ELECTROMECHANICAL ENGINEER I have a new clearance from PCP And a clearance from hematology dated in July, do I need any others? TROMECHANICAL ENGINEER * Telephone Encounter - Ever Nino PA - 11/06/2018 3:35 PM ELECTROMECHANICAL ENGINEER So she has all the clearances she needed? TROMECHANICAL ENGINEER * Telephone Encounter - Tawana Wood MA - 11/06/2018 2:42 PM ELECTROMECHANICAL ENGINEER Patient stopped ASA on and will stop xarelto on Saturday per hematology, patient notified clearance has been received TROMECHANICAL ENGINEER documented in this encounter Plan of Treatment Not on file documented as of this encounter Visit Diagnoses Not on filedocumented in this encounter Care Teams Body Stylist Relationship Specialty Start Date End Date Dominic Fernando MD [address] [facility] [address] [place] [address] PCP - General 08/13/17 documented as of this encounter
--- OUTSIDE RECORDS SUMMARY | 2024-09-04 17:11 | XMS_ITS | Encounter Summary ---
Author Organization [facility] Medical [facility] Address [address] [facility] [address] [place] [address] Care Team Providers Care Union Laborer Name Role Phone Dominic Fernando MD Primary Care Provider [phone] Encounter Details Date Type Department Care Team (Late st Contact Info) Description 08/19/2018 Telephone [facility] Orthopedics and Sports Medicine [address] [place] [address] Kemal Wright MD [address] [place] [address] [address] [address] Social History Tobacco Use Types Packs/Day Years Used Date Smoking Tobacco: Every Day Smokeless Tobacco: Never Comments Unknown Sex and Gender Information Value Date Recorded Sex Assigned at Not on file Legal Sex Female 11:26 PM GENERAL DENTIST/OWNER Gender Identity Not on file Sexual Orientation Not on file documented as of this encounter Miscellaneous Notes * Telephone Encounter - Vibha Yang - 08/20/2018 1:53 PM CST Spoke with patient and surgery will be 10/14 RAL DENTIST/OWNER * Telephone Encounter - Tawana Wood MA - 08/19/2018 4:24 PM GENERAL DENTIST/OWNER onocology and PCP clearance received, please call pt with surgery date RAL DENTIST/OWNER documented in this encounter Plan of Treatment Not on file documented as of this encounter Visit Diagnoses Not on filedocumented in this encounter Care Teams Union Laborer Relationship Specialty Start Date End Date Dominic Fernando MD [address] [facility] [address] [facility] [address] [place] [address] PCP - General 08/13/17 documented as of this encounter
--- OUTSIDE RECORDS SUMMARY | 2024-09-04 17:11 | XMS_ITS | Encounter Summary ---
Author Organization [facility] Address [address] [facility] [address] [place] [address] Care Team Providers Care Unit Technician Name Role Phone Dominic Fernando MD Primary Care Provider [phone] Reason for Visit * Reason Onset Date Comments Surgical Clearance 11/06/2018 second pcp cl earance faxed to hospital Encounter Details Date Type Department Care Team (Late st Contact Info) Description 11/06/2018 Documentation [facility] Orthopedics and Sports Medicine [address] [place] [phone] Tawana Wood MA Surgical Clearance (second pcp clearance faxed to hospital) Social History Tobacco Use Types Packs/Day Years Used Date Smoking Tobacco: Every Day Cigarettes Smokeless Tobacco: Current Comments:quitting now, 1 pac k last 2-3 days Alcohol Use Standard Drinks/Week Comments No 0 (1 standard drink = 0.6 oz pur e alcohol) Comments Unknown Sex and Gender Information Value Date Recorded Sex Assigned at Not on file Legal Sex Female 11:26 PM HAND HIDE STRETCHER Gender Identity Not on file Sexual Orientation Not on file documented as of this encounter Progress Notes * Tawana Wood MA - 11/06/2018 2:38 PM CST Clearance faxed to hospital HIDE STRETCHER documented in this encounter Plan of Treatment Not on file documented as of this encounter Visit Diagnoses Not on filedocumented in this encounter Care Teams Unit Technician Relationship Specialty Start Date End Date Dominic Fernando MD [address] [facility] [address] [place] [address] PCP - General 08/13/17 documented as of this encounter
--- OUTSIDE RECORDS SUMMARY | 2024-09-04 17:11 | XMS_ITS | Encounter Summary ---
Author Organization [facility] Medical [facility] Address [address] [facility] [address] [place] [address] Care Team Providers Care Assistant Inventory Manager Name Role Phone Dominic Fernando MD Primary Care Provider Reason for Visit * Diagnostic Imaging (Routine) - Closed Specialty Diagnoses / Procedures Referred By Evan t Referred To Contact Diagnoses Right arm pain Procedures XR Shoulder Right 2 or More Views Juanita Mckay PA Phone: tel: fax: Referral ID Status Reason Start Date Expiration Date Visits Re quested Visits Authorized [id number] Closed 10/01/2018 04/11/2020 1 1 Encounter Details Date Type Department Care Team (Latest Contact Info) Description 10/01/2018 9:10 AM HOT KNIFE FOXING CUTTER - 10/01/2018 9:14 AM [facility] Hospital Encounter [facility] Orthopedics and Sports Medicine [address] [place] [address] [place] [phone] Discharge Disposition: Discharge to home or self care Social History Tobacco Use Types Packs/Day Years Used Date Smoking Tobacco: Every Day Smokeless Tobacco: Never Comments Unknown Sex and Gender Information Value Date Recorded Sex Assigned at Not on file Legal Sex Female 11:26 PM HOT KNIFE FOXING CUTTER Gender Identity Not on file Sexual Orientation Not on file documented as of this encounter Medications at Time of Discharge cyanocobalamin (Vitamin B-12) 1,000 mcg tabletIndications :Prevention of Vitamin B12 Deficiency Take 1,000 mcg by mouth daily. folic acid (FOLVITE) 1 mg tablet Take 1 mg by mouth daily. levothyroxine (SYNTHROID, LEVOTHROID) 112 mcg tablet Take 112 mcg by mouth volunteer services director before breakfast. 07/21/2018 XARELTO 20 mg tablet Take 20 mg by mouth daily. 06/09/2018 ascorbic acid (VITAMIN C) 500 mg tablet,chewableIn dications:Vitamin deficiency prevention Take 1 tablet/chew tab (500 mg total) by mouth 2 (two) times a day. 60 tablet/chew tab 11/12/2018 12/12/2018 ferrous sulfate 325 mg (65 mg of [...] atorvastatin (LIPITOR) 20 mg tablet 02/01/2018 11/03/2018 celecoxib (CeleBREX) 200 mg capsuleIndication s:Postoperative Acute Pain,Pain Take 1 capsule (200 mg total) by mouth 2 (two) times a day for 14 days. 28 capsule 11/12/2018 10/02/2019 cetirizine 10 mg capsule Take 10 mg by mouth daily as needed. 10/02/2019 levothyroxine (SYNTHROID, LEVOTHROID) 137 mcg tablet Take 137 mcg by mouth. 11/03/2018 oxyCODONE-acetami nophen (PERCOCET) 5-325 mg per tabletIndications :Pain Take 1-2 tablets by mouth every 4 (four) hours as needed for pain. 63 tablet 11/12/2018 11/15/2018 varenicline (CHANTIX STARTING MONTH BOX) 0.5 mg (11)- 1 mg (42) tablet 04/14/2018 11/03/2018 VENTOLIN HFA 90 mcg/actuation inhaler 09/30/2018 11/03/2018 documented as of this encounter Discharge Disposition Disposition Code Departure Means Destination Discharge to home or self care documented in this encounter Plan of Treatment Not on file documented as of this encounter Procedures Procedure Name Priority Date/Time Associated Diagnosis Comments XR SHOULDER RIGHT 2 OR MORE VIEWS Schedule Routine, Read Routine (OP Routine) 10/01/2018 9:15 AM HOT KNIFE FOXING CUTTER Right arm pain documented in this encounter Results * XR Shoulder Right 2 or More Views (10/01/2018 9:15 AM HOT KNIFE FOXING CUTTER) Anatomical Region Laterality Modality Upper Extremities, Shoulder Right Digi laurie Radiography Narrative 10/06/2018 4:46 PM HOT KNIFE FOXING CUTTER X-rays of the right shoulder are viewed and interpreted in clinic today. ?? These demonstrate an acute, nondisplaced fracture of the acromion. ?? Juanita JOHNSON IMG XR PROCEDURES Final Result documented in this encounter Visit Diagnoses Not on filedocumented in this encounter Care Teams Assistant Inventory Manager Relationship Specialty Start Date End Date Dominic Fernando MD [address] [facility] [address] [place] [address] PCP - General 08/13/17 documented as of this encounter
--- OUTSIDE RECORDS SUMMARY | 2024-09-04 17:11 | XMS_ITS | Encounter Summary ---
Author Organization [facility] Medical Group Address [address] [facility] [address] [place] [address] Care Team Providers Care Phone Circuit Operator Name Role Phone Dominic Fernando MD Primary Care Provider [phone] Encounter Details Date Type Department Care Team (Late st Contact Info) Description 11/07/2018 Orders Only [facility] Medical [facility] Orthopedics and Sports Medicine [address] [place] [phone] Ever Nino PA [address] [place] [address] [address] Social History Tobacco Use Types Packs/Day Years Used Date Smoking Tobacco: Every Day Cigarettes Smokeless Tobacco: Current Comments:quitting now, 1 pac k last 2-3 days Alcohol Use Standard Drinks/Week Comments No 0 (1 standard drink = 0.6 oz pur e alcohol) Comments Unknown Sex and Gender Information Value Date Recorded Sex Assigned at Not on file Legal Sex Female 11:26 PM WIRE COATING OPERATOR METAL Gender Identity Not on file Sexual Orientation Not on file documented as of this encounter Ordered Prescriptions Prescription Sig Dispense Quantity Refills Last Filled Start Date End Date ergocalciferol (VITAMIN D) 50,000 unit capsuleIndications :Vitamin D Deficiency Take 1 capsule (50,000 Units total) by mouth once a week. 4 capsule 11/07/2018 0 documented in this encounter Progress Notes * Tawana Wood MA - 11/07/2018 9:06 AM CST PCP and patient notified COATING OPERATOR METAL documented in this encounter Plan of Treatment Not on file documented as of this encounter Visit Diagnoses Not on filedocumented in this encounter Care Teams Phone Circuit Operator Relationship Specialty Start Date End Date Dominic Fernando MD [address] [facility] [address] [place] [phone] PCP - General 08/13/17 documented as of this encounter
--- OUTSIDE RECORDS SUMMARY | 2024-09-04 17:11 | XMS_ITS | Encounter Summary ---
Author Organization [facility] Medical Group Address [address] [facility] [address] [place] [address] Care Team Providers Care Truck Hopper Name Role Phone Dominic Fernando MD Primary Care Provider [phone] Reason for Visit * Reason Onset Date Comments clearance ck for surgery 11/06/2018 Encounter Details Date Type Department Care Team (Late st Contact Info) Description 11/06/2018 Telephone [facility] Orthopedics and Sports Medicine [address] [place] [phone] Kemal Wright MD [address] [place] [address] [address] [address] clearance ck for surgery Social History Tobacco Use Types Packs/Day Years Used Date Smoking Tobacco: Every Day Cigarettes Smokeless Tobacco: Current Comments:quitting now, 1 pac k last 2-3 days Alcohol Use Standard Drinks/Week Comments No 0 (1 standard drink = 0.6 oz pur e alcohol) Comments Unknown Sex and Gender Information Value Date Recorded Sex Assigned at Not on file Legal Sex Female 11:26 PM SENIOR DATA DEVELOPER Gender Identity Not on file Sexual Orientation Not on file documented as of this encounter Miscellaneous Notes * Telephone Encounter - Tawana Wood MA - 11/06/2018 11:20 AM SENIOR DATA DEVELOPER Checking on clearance for patient OR DATA DEVELOPER documented in this encounter Plan of Treatment Not on file documented as of this encounter Visit Diagnoses Not on filedocumented in this encounter Care Teams Truck Hopper Relationship Specialty Start Date End Date Dominic Fernando MD [address] [facility] [address] [facility] [address] [place] [address] PCP - General 08/13/17 documented as of this encounter
--- OUTSIDE RECORDS SUMMARY | 2024-09-04 17:11 | XMS_ITS | Encounter Summary ---
Author Organization [facility] Medical Group Address [address] [facility] [address] [place] [address] Care Team Providers Care Company Marker Name Role Phone Dominic Fernando MD Primary Care Provider [phone] Reason for Referral * Diagnostic Imaging (Routine) - Closed Specialty Diagnoses / Procedures Referred By Contac t Referred To Contact Diagnoses Pain in both knees, unspecified chronicity Procedures XR Pelvis 1 or 2 Views Kemal Wright MD Phone: tel: fax: Referral ID Status Reason Start Date Expiration Date Visits Re quested Visits Authorized [id number] Closed 07/23/2018 02/01/2020 1 1 BAG CLIPPER * Diagnostic Imaging (Routine) - Closed Specialty Diagnoses / Procedures Referred By Contac t Referred To Contact Diagnoses Pain in both knees, unspecified chronicity Procedures XR Knee Left 4+ View Kemal Wright MD Phone: tel: fax: Referral ID Status Reason Start Date Expiration Date Visits Re quested Visits Authorized [id number] Closed 07/23/2018 02/01/2020 1 1 BAG CLIPPER * Diagnostic Imaging (Routine) - Closed Specialty Diagnoses / Procedures Referred By Contac t Referred To Contact Diagnoses Pain in both knees, unspecified chronicity Procedures XR Knee Right 4+ View Kemal Wright MD Phone: tel: fax: Referral ID Status Reason Start Date Expiration Date Visits Re quested Visits Authorized [id number] Closed 07/23/2018 02/01/2020 1 1 BAG CLIPPER Reason for Visit * Reason Comments Pain Pain Encounter Details Date Type Department Care Team (Latest Contact Info) Description 07/23/2018 11:15 AM JUTE BAG CLIPPER Office Visit [facility] Orthopedics and Sports Medicine [address] [place] [phone] Kemal Wright MD [address] [place] [address] [address] [address] Primary osteoarthritis of right knee (Primary Dx); Pain in both knees, unspecified chronicity; Other tear of medial meniscus of left knee as current injury, initial encounter Social History Tobacco Use Types Packs/Day Years Used Date Smoking Tobacco: Every Day Smokeless Tobacco: Never Comments Unknown Sex and Gender Information Value Date Recorded Sex Assigned at Not on file Legal Sex Female 11:26 PM JUTE BAG CLIPPER Gender Identity Not on file Sexual Orientation Not on file documented as of this encounter Last Filed Vital Signs Vital Sign Reading Time Taken Comments Blood Pressure 136/78 07/23/2018 11:36 AM JUTE BAG CLIPPER Pulse 57 07/23/2018 11:36 AM JUTE BAG CLIPPER Temperature - - Respiratory Rate - - Oxygen Saturation - - Inhaled Oxygen Concentration - - Weight 83.9 kg (185 lb) 07/23/2018 11:36 AM JUTE BAG CLIPPER Height 162.6 cm (5' 4 ) 07/23/2018 11:36 AM JUTE BAG CLIPPER Body Mass Index 31.76 07/23/2018 11:36 AM JUTE BAG CLIPPER documented in this encounter Progress Notes * Kemal Wright MD - 07/23/2018 11:15 AM CST NEW PATIENT VISIT Subjective CHIEF COMPLAINT She had concerns including Pain of the Left Knee and Pain of the Right Knee. HISTORY OF PRESENT ILLNESS Severe right knee pain for the past 5 years. She has had her right knee scope 3 times in the last 10 years and was recently told year ago that she needed a right knee replacement. She also complains of mild left knee pain which is bearable she reports her problem is recently gotten worse her accidentally ran into her with a long more which increased her left and right knee pain she reports her pain is sharp burning dull and achy. Her right knee pain is severe left knee pain is mild. Nothing makes her pain better everything makes it worse. Her cane is continuous. She has had steroid injections in the past and arthroscopic surgery. Pain Assessment Pain Assessment: 0-10 Pain Score: 8 Pain Location: Knee Pain Orientation: Right, Left Pain Descriptors: Aching, Burning, Dull, Sharp Pain Frequency: Constant/continuous Pain Onset: Ongoing Clinical Progression: Gradually worsening Aggravating Factors: Walking, Standing, Stairs, Squatting, Kneeling, Bending Result of Injury: No Work-Related Injury: No Patient's Stated Pain Goal: No pain Pain Interventions: Medication (See MAR) PAST MEDCIAL HISTORY She has a past medical history of Cervical cancer ([facility]); H/O: hysterectomy; Hiatal hernia; History of blood clots; Poor circulation; Stroke ([facility]); and Thyroid disease. PAST SURGICAL HISTORY She has a past surgical history that includes Cholecystectomy; Hysterectomy; Neck surgery; Knee arthroscopy; and Rotator cuff repair. MEDICATIONS She has a current medication list which includes the following prescription(s): aspirin, aspirin, atorvastatin, cetirizine, cyanocobalamin, levothyroxine, levothyroxine, xarelto, and varenicline. ALLERGIES She is allergic to codeine; latex; morphine; penicillins; and vancomycin. SOCIAL HISTORY She reports that she has been smoking. She has never used smokeless tobacco. FAMILY HISTORY Her family history includes Arthritis [...] is not hyperactive. Objective PHYSICAL EXAM BP 136/78 Pulse 57 Ht 162.6 cm (5' 4 ) Wt 83.9 kg (185 lb) BMI 31.76 kg/m?? Right knee Inspection The patient has normal [...] Special tests Gilberto: medial postive lateral positive Comments: No pain with internal x-rays taken of hips Left knee Inspection The patient has normal inspection of the left knee. Swelling: mild Effusion: 1+ Surgical scar/wound: absent. Skin temperature: normal Alignment: neutral Gait: normal Palpation Tenderness: present. The tenderness is located in the patella and medial joint line. Patellar tracking: normal Crepitus: positive Patella grind: positive Range of motion The patient has normal range of motion of the left knee. The patient has pain with range of motion of the left knee. Stability The patient has normal AP and ML stabiltiy of the left knee. Strength The patient has 5/5 strength throughout. The patient has 5/5 strength throughout with exceptions as noted below. Neurovascular The patient has normal vascular on the left side of their body. REVIEW OF X-RAYS/STUDIES/LABS XR Knee Right 4+ View Severe osteoarthrosis right knee tricompartmental arthrosis no fractures subluxation or dislocationflexion contracture noted XR Knee Left 4+ View Mild degenerative changes left knee no fracture subluxation or dislocation XR Pelvis 1 or 2 Views AP pelvis shows mild degenerative changes bilateral hips no fracture subluxation or dislocation Assessment/Plan Gege was seen today for pain and pain. Diagnoses and all orders for this visit: Primary osteoarthritis of right knee Pain in both knees, unspecified chronicity - XR Knee Right 4+ View - XR Knee Left 4+ View - XR Pelvis 1 or 2 Views - Ambulatory referral order to Physical Therapy -; Future Other tear of medial meniscus of left knee as current injury, initial encounter Procedures PLAN Risks and benefits of total knee arthroplasty were discussed with the patient. These include but are not limited to bleeding infection damage to surrounding structures including, fracture, Damage to nerves, arteries, veins, DVT, PE, stroke, heart attack, and . Patient understands these risks and agreed to proceed with the surgery as described above. All questions and concerns were addressed with the patient prior to surgical consent being established in the office today. The patient will follow up for surgery. Islas and Nephew Black beauty right knee patient has extensive allergy history. Observe left knee. Physical therapy once a week for the next 8 weeks prior to surgery to improve strength and range of motion. She has a history of DVT will need clearance her root tear on her left knee I recommend observation and physical therapy. CHARLENE Baxter MD BAG CLIPPER documented in this encounter Plan of Treatment Not on file documented as of this encounter Procedures Procedure Name Priority Date/Time Associated Diagnosis Comments XR KNEE LEFT 4 OR MORE VIEWS Schedule Routine, Read Routine (OP Routine) 07/23/2018 11:28 AM JUTE BAG CLIPPER Pain in both knees, unspecified chronicity XR KNEE RIGHT 4 OR MORE VIEWS Schedule Routine, Read Routine (OP Routine) 07/23/2018 11:27 AM JUTE BAG CLIPPER Pain in both knees, unspecified chronicity XR PELVIS 1 OR 2 VIEWS Schedule Routine, Read Routine (OP Routine) 07/23/2018 11:27 AM JUTE BAG CLIPPER Pain in both knees, unspecified chronicity documented in this encounter Results * XR Knee Left 4+ View (07/23/2018 11:28 AM JUTE BAG CLIPPER) Anatomical Region Laterality Modality Lower Extremities, Knee Left Radiogra phic Imaging Narrative 07/23/2018 1:28 PM JUTE BAG CLIPPER Mild degenerative changes left knee no fracture subluxation or dislocation Kemal Wright MD IMG XR PROCEDURES Final Resu lt * XR Knee Right 4+ View (07/23/2018 11:27 AM JUTE BAG CLIPPER) Anatomical Region Laterality Modality Lower Extremities, Knee Right Radiogra phic Imaging Narrative 07/23/2018 1:28 PM JUTE BAG CLIPPER Severe osteoarthrosis right knee tricompartmental arthrosis no fractures subluxation or dislocation flexion contracture noted Kemal Wright MD IMG XR PROCEDURES Final Resu lt * XR Pelvis 1 or 2 Views (07/23/2018 11:27 AM JUTE BAG CLIPPER) Anatomical Region Laterality Modality Body, Pelvis N/A Radiographic Yulisa ging Narrative 07/23/2018 1:28 PM JUTE BAG CLIPPER AP pelvis shows mild degenerative changes bilateral hips no fracture subluxation or dislocation Kemal Wright MD IMG XR PROCEDURES Final Resu lt documented in this encounter Visit Diagnoses Diagnosis Primary osteoarthritis of right knee- Primary Pain in both knees, unspecified chronicity Other tear of medial meniscus of left knee as current injury, initial encounter documented in this encounter Historical Medications * This list may reflect changes made after this encounter. XARELTO 20 mg tablet Take 20 mg by mouth daily. 06/09/2018 levothyroxine (SYNTHROID, LEVOTHROID) 112 mcg tablet Take 112 mcg by mouth coding technician before breakfast. 07/21/2018 cyanocobalamin (Vitamin B-12) 1,000 mcg tabletIndications :Prevention of Vitamin B12 Deficiency Take 1,000 mcg by mouth daily. levothyroxine (SYNTHROID, LEVOTHROID) 137 mcg tablet Take 137 mcg by mouth. 11/03/2018 varenicline (CHANTIX STARTING MONTH BOX) 0.5 mg (11)- 1 mg (42) tablet 04/14/2018 11/03/2018 cetirizine 10 mg capsule Take 10 mg by mouth daily as needed. 10/02/2019 atorvastatin (LIPITOR) 20 mg tablet 02/01/2018 11/03/2018 aspirin 81 mg tablet Take 81 mg by mouth. 11/03/2018 aspirin 81 mg tablet Take 81 mg by mouth daily. 06/09/2018 11/15/2018 added in this encounter Care Teams Company Marker Relationship Specialty Start Date End Date Dominic Fernando MD [address] [facility] [address] [place] [address] PCP - General 08/13/17 documented as of this encounter
--- OUTSIDE RECORDS SUMMARY | 2024-09-04 17:11 | XMS_ITS | Encounter Summary ---
Author Organization [facility] Medical Group Address [address] [facility] [address] [place] [address] Care Team Providers Care Utility Worker Forge Name Role Phone Dominic Fernando MD Primary Care Provider [phone] Encounter Details Date Type Department Care Team (Late st Contact Info) Description 10/01/2018 Telephone [facility] Orthopedics and Sports Medicine [address] [facility] [address] [place] [phone] Kemal Wright MD [address] [place] [address] [address] [facility] [address] [place] [address] Social History Tobacco Use Types Packs/Day Years Used Date Smoking Tobacco: Every Day Smokeless Tobacco: Never Comments Unknown Sex and Gender Information Value Date Recorded Sex Assigned at Not on file Legal Sex Female 11:26 PM JOURNEYMAN PRESS OPERATOR Gender Identity Not on file Sexual Orientation Not on file documented as of this encounter Miscellaneous Notes * Telephone Encounter - Vibha Yang - 10/01/2018 10:39 AM CST Per Juanita postpone patient's surgery. It is now Nov 11 notified Hayley NEYMAN PRESS OPERATOR documented in this encounter Plan of Treatment Not on file documented as of this encounter Visit Diagnoses Not on filedocumented in this encounter Care Teams Utility Worker Forge Relationship Specialty Start Date End Date Dominic Fernando MD [address] [facility] [address] INTER[address] MED[address]INE [place], [place] [phone] PCP - General 08/13/17 documented as of this encounter
--- OUTSIDE RECORDS SUMMARY | 2024-09-04 17:11 | XMS_ITS | Encounter Summary ---
Author Organization [facility] Healthcare Address [address] [place] [address] Care Team Providers Care Taper And Floater Name Role Phone Dominic Fernando MD Primary Care Provider Encounter Details Date Type Department Care Team (Late st Contact Info) Description 08/13/2017 9:46 PM BOTTLER HELPER - 08/13/2017 11:31 PM BOTTLER HELPER Emergency [facility] Emergency Department 1 [place] [address] Garfield Krause MD [address] [place] [address] 1 [place] [address] Discharge Disposition: Discharge to home or self care Social History Tobacco Use Types Packs/Day Years Used Date Smoking Tobacco: Never Assessed Comments Unknown Sex and Gender Information Value Date Recorded Sex Assigned at Not on file Legal Sex Female 11:26 PM BOTTLER HELPER Gender Identity Not on file Sexual Orientation Not on file documented as of this encounter Discharge Disposition Disposition Code Departure Means Destination Discharge to home or self care documented in this encounter Plan of Treatment Not on file documented as of this encounter Procedures Procedure Name Priority Date/Time Associated Diagnosis Comments XR SHOULDER 2+ VW Routine 08/14/2017 5:0 1 AM BOTTLER HELPER documented in this encounter Results * XR Shoulder 2+ Vw (08/14/2017 5:01 AM BOTTLER HELPER) Anatomical Region Laterality Modality Shoulder N/A Radiographic Yulisa ging 08/14/2017 5:01 AM BOTTLER HELPER Narrative 08/14/2017 5:12 AM BOTTLER HELPER XR Shoulder Min 2 Views L ??[id number] ??Acc#: ??[id number] DATE OF EXAM: ??Aug 13 2017 ?? XR Shoulder Min 2 Views L ??[id number] HISTORY: Fall. ??Left shoulder pain. COMPARISON: None available. FINDINGS: No acute fracture or subluxation identified. ??Soft tissues and joints are unremarkable. ??Postsurgical changes lower cervical spine. IMPRESSION: NO ACUTE FRACTURE IDENTIFIED. Electronically signed by: Lamin Stevens M.D Interpreting Physician: ??LAMIN STEVENS M.D. ??Read on: ??Aug 13 2017 11:12P Transcribed by: ??PSC ??On: Aug 13 2017 11:10P Approved Electronically by: ??LAMIN STEVENS M.D. ??on: ??Aug 13 2017 11:10P Ordering DR: ALLEY FLOWER Attending DR: DR BESSY HUSSEIN Attending: ??DR BESSY HUSSEIN Requesting: ??ALLEY FLOWER Requesting Fax: ??-- Attending Fax: ??-- Attending ID: ??[id number] Requesting ID: ??[id number] Report To 1 ID: ??[id number] Report To 1 Name: ??DR BESSY HUSSEIN Report To 1 FAX: ??-- NextGen Order #: ?? Procedure Note Miscellaneous, Not In File - 08/13/2017 XR Shoulder Min 2 Views L [id number] Acc#: [id number] DATE OF EXAM: Aug 13 2017 XR Shoulder Min 2 Views L [id number] HISTORY: Fall. Left shoulder pain. COMPARISON: None available. FINDINGS: No acute fracture or subluxation identified. Soft tissues and joints are unremarkable. Postsurgical changes lower cervical spine. IMPRESSION: NO ACUTE FRACTURE IDENTIFIED. Electronically signed by: Lamin Stevens M.D Interpreting Physician: LAMIN STEVENS M.D. Read on: Aug 13 2017 11:12P Transcribed by: PSC On: Aug 13 2017 11:10P Approved Electronically by: LAMIN STEVENS M.D. on: Aug 13 2017 11:10P Ordering DR: ALLEY FLOWER Attending DR: DR BESSY HUSSEIN Attending: DR BESSY HUSSEIN Requesting: ALLEY FLOWER Requesting Fax: -- Attending Fax: -- Attending ID: [id number] Requesting ID: [id number] Report To 1 ID: [id number] Report To 1 Name: DR BESSY HUSSEIN Report To 1 FAX: -- NextGen Order #: Alley Flower COMMUNITY ENGAGEMENT LEADER IMG XR PROCEDURES Final Res ult documented in this encounter Visit Diagnoses Not on filedocumented in this encounter Care Teams Taper And Floater Relationship Specialty Start Date End Date Dominic Fernando MD [address] [facility] [address] [place] [address] PCP - General 08/13/17 documented as of this encounter
--- OUTSIDE RECORDS SUMMARY | 2024-09-04 17:11 | XMS_ITS | Encounter Summary ---
Author Organization [facility] Medical Group Address [address] [facility] [address] [place] [address] Care Team Providers Care .Net Developer Name Role Phone Dominic Fernando MD Primary Care Provider [phone] Reason for Visit * Reason Onset Date Comments Surgical Clearance 08/13/2018 hemo clearanc e faxed to hospital Encounter Details Date Type Department Care Team (Late st Contact Info) Description 08/13/2018 Documentation [facility] Orthopedics and Sports Medicine [address] [place] [phone] Tawana Wood MA Surgical Clearance (hemo clearance faxed to hospital) Social History Tobacco Use Types Packs/Day Years Used Date Smoking Tobacco: Every Day Smokeless Tobacco: Never Comments Unknown Sex and Gender Information Value Date Recorded Sex Assigned at Not on file Legal Sex Female 11:26 PM CLERK OF 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 Please call patient. K OF WORKS documented in this encounter Plan of Treatment Not on file documented as of this encounter Visit Diagnoses Not on filedocumented in this encounter Care Teams .Net Developer Relationship Specialty Start Date End Date Dominic Fernando MD [address] [place] [address] PCP - General 08/13/17 documented as of this encounter
--- OUTSIDE RECORDS SUMMARY | 2024-09-04 17:11 | XMS_ITS | Encounter Summary ---
Author Organization [facility] Medical [facility] Address [address] [facility] [address] [place] [address] Care Team Providers Care Drug Safety Associate Name Role Phone Dominic Fernando MD Primary Care Provider [phone] Reason for Visit * Reason Onset Date Comments disability paperwork 09/24/2018 Encounter Details Date Type Department Care Team (Late st Contact Info) Description 09/24/2018 Documentation [facility] Orthopedics and Sports Medicine [address] [facility] [address] [place] [phone] Rola Hernandez RT disability paperwork Social History Tobacco Use Types Packs/Day Years Used Date Smoking Tobacco: Every Day Smokeless Tobacco: Never Comments Unknown Sex and Gender Information Value Date Recorded Sex Assigned at Not on file Legal Sex Female 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 Pt notified. E PAINTING INSTRUCTOR documented in this encounter Plan of Treatment Not on file documented as of this encounter Visit Diagnoses Not on filedocumented in this encounter Care Teams Drug Safety Associate Relationship Specialty Start Date End Date Dominic Fernando MD [address] [place] [address] PCP - General 08/13/17 documented as of this encounter
--- OUTSIDE RECORDS SUMMARY | 2024-09-04 17:11 | XMS_ITS | Encounter Summary ---
Author Organization [facility] Medical Group Address [address] [facility] [address] [place] [address] Care Team Providers Care Destination Sign Repairer Name Role Phone Dominic Fernando MD Primary Care Provider [phone] Reason for Visit * Reason Onset Date Comments disability paperwork 11/03/2018 Encounter Details Date Type Department Care Team (Late st Contact Info) Description 11/03/2018 Documentation [facility] Orthopedics and Sports Medicine [address] [facility] [address] [place] [address] Rola Hernandez RT disability paperwork Social History [...] on file Legal Sex Female 11:26 PM OXYGEN TANK FILLER Gender Identity Not on file Sexual Orientation Not on file documented as of this encounter Progress Notes * Rola Hernandez RT - 11/03/2018 3:06 PM CST Patients sons disability paperwork is complete. Pt notified. EN TANK FILLER documented in this encounter Plan of Treatment Not on file documented as of this encounter Visit Diagnoses Not on filedocumented in this encounter Care Teams Destination Sign Repairer Relationship Specialty Start Date End Date Dominic Fernando MD [address] [facility] [address] [facility] [address] [place] [address] PCP - General 08/13/17 documented as of this encounter
--- OUTSIDE RECORDS SUMMARY | 2024-09-04 17:11 | XMS_ITS | Encounter Summary ---
Author Organization [facility] Medical Group Address [address] [facility] [address] [place] [address] Care Team Providers Care Supervisor Cooler Service Name Role Phone Dominic Fernando MD Primary Care Provider [phone] Reason for Visit * Diagnostic Imaging (Routine) - Closed Specialty Diagnoses / Procedures Referred By Evan bo Referred To Contact Diagnoses Right arm pain Procedures XR Elbow Right 3 or More Views Juanita Mckay PA Phone: tel: fax: Referral ID Status Reason Start Date Expiration Date Visits Re quested Visits Authorized [id number] Closed 10/01/2018 04/11/2020 1 1 Encounter Details Date Type Department Care Team (Latest Contact Info) Description 10/01/2018 9:15 AM SECTION FOREST FIRE WARDEN - 10/01/2018 11:59 PM SECTION FOREST FIRE WARDEN Hospital Encounter [facility] Orthopedics and Sports Medicine [address] [place] [address] [place] [phone] Discharge Disposition: Discharge to home or self care Social History Tobacco Use Types Packs/Day Years Used Date Smoking Tobacco: Every Day Smokeless Tobacco: Never Comments Unknown Sex and Gender Information Value Date Recorded Sex Assigned at Not on file Legal Sex Female 11:26 PM SECTION FOREST FIRE WARDEN Gender Identity Not on file Sexual Orientation Not on file documented as of this encounter Medications at Time of Discharge cyanocobalamin (Vitamin B-12) 1,000 mcg tabletIndications :Prevention of Vitamin B12 Deficiency Take 1,000 mcg by mouth daily. folic acid (FOLVITE) 1 mg tablet Take 1 mg by mouth daily. levothyroxine (SYNTHROID, LEVOTHROID) 112 mcg tablet Take 112 mcg by mouth fire fighting equipment specialist before breakfast. 07/21/2018 XARELTO 20 mg tablet [...] Name Priority Date/Time Associated Diagnosis Comments XR ELBOW RIGHT 3 OR MORE VIEWS Schedule Routine, Read Routine (OP Routine) 10/01/2018 9:15 AM SECTION FOREST FIRE WARDEN Right arm pain documented in this encounter Results * XR Elbow Right 3 or More Views (10/01/2018 9:15 AM SECTION FOREST FIRE WARDEN) Anatomical Region Laterality Modality Upper Extremities, Elbow Right Digital Radiography Narrative 10/06/2018 4:47 PM SECTION FOREST FIRE WARDEN X-ray of the right elbow viewed and interpreted. ??There is no evidence of fracture, subluxation, or bony abnormality. Juanita JOHNSON IMG XR PROCEDURES Final Result documented in this encounter Visit Diagnoses Not on filedocumented in this encounter Care Teams Supervisor Cooler Service Relationship Specialty Start Date End Date Dominic Fernando MD [address] [facility] [address] [place], [place] [id number] PCP - General 08/13/17 documented as of this encounter
--- OUTSIDE RECORDS SUMMARY | 2024-09-04 17:11 | XMS_ITS | Encounter Summary ---
Author Organization [facility] Medical Group Address [address] [facility] [address] [place] [address] Care Team Providers Care Scrap Metal Processing Worker Name Role Phone Dominic Fernando MD Primary Care Provider [phone] Reason for Visit * Reason Onset Date Comments Surgical Clearance 08/19/2018 pcp and oncol ogy clearance faxed to hospital, bridging instructions Encounter Details Date Type Department Care Team (Late st Contact Info) Description 08/19/2018 Documentation [facility] Orthopedics and Sports Medicine [address] [place] [phone] Tawana Wood MA Surgical Clearance (pcp and oncology clearance faxed to hospital, bridging instructions) Social History Tobacco Use Types Packs/Day Years Used Date Smoking Tobacco: Every Day Smokeless Tobacco: Never Comments Unknown Sex and Gender Information Value Date Recorded Sex Assigned at Not on file Legal Sex Female 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 Gender Identity Not on file Sexual Orientation Not on file documented as of this encounter Progress Notes * Tawana Wood MA - 08/19/2018 4:20 PM CST instructions for [employer] bridging on clearance letter EMS TESTING LABORATORY TECHNICIAN documented in this encounter Plan of Treatment Not on file documented as of this encounter Visit Diagnoses Not on filedocumented in this encounter Care Teams Scrap Metal Processing Worker Relationship Specialty Start Date End Date Dominic Fernando MD [address] [facility] [address] [place] [address] [place] [address] PCP - General 08/13/17 documented as of this encounter
--- OUTSIDE RECORDS SUMMARY | 2024-09-04 17:11 | XMS_ITS | Encounter Summary ---
Author Organization [facility] Medical [facility] Address [address] [facility] [address] [place] [address] Care Team Providers Care Sound Effects Technician Name Role Phone Dominic Fernando MD Primary Care Provider [phone] Reason for Visit * Reason Onset Date Comments surgery clearance 08/15/2018 Encounter Details Date Type Department Care Team (Late st Contact Info) Description 08/15/2018 Telephone [facility] Orthopedics and Sports Medicine [address] [facility] [address], [place] [address] Felipa Amador RMA surgery clearance Social History Tobacco Use Types Packs/Day Years Used Date Smoking Tobacco: Every Day Smokeless Tobacco: Never Comments Unknown Sex and Gender Information Value Date Recorded Sex Assigned at Not on file Legal Sex Female 11:26 PM ENGINEERING MATHEMATICIAN Gender Identity Not on file Sexual Orientation Not on file documented as of this encounter Miscellaneous Notes * Telephone Encounter - Tawana Wood MA - 08/15/2018 11:45 AM ENGINEERING MATHEMATICIAN Patient calling PCP for clearance NEERING MATHEMATICIAN * Telephone Encounter - Felipa Amador MA - 08/15/2018 9:53 AM CST Patient called in asking if PCP has sent in medical clearance yet? I don't see anything in the computer. Please call the patient. NEERING MATHEMATICIAN documented in this encounter Plan of Treatment Not on file documented as of this encounter Visit Diagnoses Not on filedocumented in this encounter Care Teams Sound Effects Technician Relationship Specialty Start Date End Date Dominic Fernando MD [address] [facility] [address] [facility] [address] MED[address]INE [place], [place] [phone] PCP - General 08/13/17 documented as of this encounter
--- OUTSIDE RECORDS SUMMARY | 2024-09-04 17:11 | XMS_ITS | Encounter Summary ---
Author Organization [facility] Healthcare Address [address] [place] [address] Care Team Providers Care Split Leather Mosser Name Role Phone Dominic Fernando MD Primary Care Provider [phone] Reason for Referral * (Routine) - Closed Specialty Diagnoses / Procedures Referred By Contac t Referred To Contact Diagnoses Preoperative testing Procedures ECG 12 lead Kemal Wright MD Phone: tel: fax: [address] [phone] Referral ID Status Reason Start Date Expiration Date Visits Re quested Visits Authorized Closed 10/28/2018 05/08/2020 1 1 ERCIAL LINES ACCOUNT ASSISTANT Reason for Visit * (Routine) - Closed Specialty Diagnoses / Procedures Referred By Contac t Referred To Contact Diagnoses Preoperative testing Procedures ECG 12 lead Kemal Wright MD Phone: tel: fax: [address] [phone] Referral ID Status Reason Start Date Expiration Date Visits Re quested Visits Authorized Closed 10/28/2018 05/08/2020 1 1 Encounter Details Date Type Department Care Team (Latest Contact Info) Description 11/03/2018 12:27 PM COMMERCIAL LINES ACCOUNT ASSISTANT - 11/03/2018 11:59 PM COMMERCIAL LINES ACCOUNT ASSISTANT Hospital Encounter [facility] Cardiology [address] [place] [address] Kemal Wright MD [address] [place] [address] DR UDAY García [facility] [address] [place] [address] Preoperative testing Discharge Disposition: Discharge to home or self [...] on file Legal Sex Female 11:26 PM COMMERCIAL LINES ACCOUNT ASSISTANT Gender Identity Not on file Sexual Orientation [...] mcg tablet Take 112 mcg by mouth dinkey engine firer before breakfast. 07/21/[address] (PROTONIX) 20 [...] 11/12/2018 11/15/2018 documented as of this encounter Discharge Disposition Disposition Code Departure Means Destination Discharge to home or self care documented in this encounter Plan of Treatment Not on file documented as of this encounter Procedures Procedure Name Priority Date/Time Associated Diagnosis Comments ECG 12-LEAD Routine 11/04/2018 6:42 AM COMMERCIAL LINES ACCOUNT ASSISTANT Preoperative testing documented in this encounter Results * ECG 12 lead (11/04/2018 6:42 AM COMMERCIAL LINES ACCOUNT ASSISTANT) 11/03/2018 12:4 6 PM COMMERCIAL LINES ACCOUNT ASSISTANT Narrative [facility] - 11/03/2018 9:39 PM COMMERCIAL LINES ACCOUNT ASSISTANT Vent Rate: 77 bpm RR Interval: 778 msec PA Interval: 194 msec QRS Duration: 86 msec QT Interval: 365 msec QTC Interval: 396 msec P-R-T Williams: 67 - 6 - 74 degrees SINUS RHYTHM LOW QRS VOLTAGE IN PRECORDIAL LEADS ??[QRS DEFLECTION < 1.0 mV IN CHEST LEADS] NONSPECIFIC T-WAVE ABNORMALITY BORDERLINE ECG Electronically Signed By: Darion Lang MD us Kemal Wright MD ECG ORDERABLES Final Result [facility] documented in this encounter Visit Diagnoses Diagnosis Preoperative testing Unspecified pre-operative examination documented in this encounter Care Teams Split Leather Mosser Relationship Specialty Start Date End Date Dominic Fernando MD [address] [facility] [address] [place] [address] PCP - General 08/13/17 documented as of this encounter
--- OUTSIDE RECORDS SUMMARY | 2024-09-04 17:11 | XMS_ITS | Encounter Summary ---
Author Organization [facility] Healthcare Address [address] [place] [address] Care Team Providers Care Rehabilitation Assistant Name Role Phone Dominic Fernando MD Primary Care Provider [phone] Encounter Details Date Type Department Care Team (Late st Contact Info) Description 11/11/2018 1:15 PM LAUNDRY ROUTE DRIVER - 11/11/2018 3:30 PM LAUNDRY ROUTE DRIVER Surgery [facility] Operating Room [address] [place] [address] Kemal Wright MD [address] [place] [address] DR FRYE [address] [address] Right total knee arthroplasty Surgery Details Date/Time Status Location OR Service Patient Class Case Class Case Type Trauma Case? 11/11/2018 1:15 PM Posted [facility] OPERATING ROOM OR Orthopaedics Outpatient in Bed Elective Panel 1 Procedure LRB Anes Op Region Wound Class Comments Right total knee arthroplasty Right Choice Knee Class I - Clean Surgeon Surgeon Role Service Panel Kemal Wright MD Primary Orthopaedics 1 Special Needs Islas [employer]hew Black Beauty, TENS, CPM in hospital, cooling unit, 1 liter beta rinse, and Depuy cement and quick set cement documented in this encounter Social History Tobacco [...] on file Legal Sex Female 11:26 PM LAUNDRY ROUTE DRIVER Gender Identity Not on file Sexual Orientation Not on file documented as of this encounter Last Filed Vital Signs Vital Sign Reading Time Taken Comments Blood Pressure 124/56 11/11/2018 12:35 PM LAUNDRY ROUTE DRIVER Pulse 66 11/11/2018 12:35 PM LAUNDRY ROUTE DRIVER Temperature 37 ??C (98.6 ??F) 11/11/2018 11:01 AM LAUNDRY ROUTE DRIVER Respiratory Rate 22 11/11/2018 12:35 PM LAUNDRY ROUTE DRIVER Oxygen Saturation 100% 11/11/2018 12:35 PM LAUNDRY ROUTE DRIVER Inhaled Oxygen Concentration - - Weight 86.8 kg (191 lb 5.8 oz) 11/11/2018 11:01 AM LAUNDRY ROUTE DRIVER Height 160 cm (5' 3 ) 11/11/2018 11:01 AM LAUNDRY ROUTE DRIVER Body Mass Index 33.9 11/11/2018 11:01 AM LAUNDRY ROUTE DRIVER documented in this encounter Discharge Summaries * Ever Nino PA - 11/12/2018 3:28 PM CST Inpatient Discharge Summary BRIEF OVERVIEW Admitting Provider: Kemal Wright MD Discharge Provider: Kemal Wright MD Primary Care Physician at Discharge: Dominic Fernando MD [phone] Admission Date: 11/11/2018 Discharge Date: 11/12/2018 Admission Location: [facility] Primary Discharge Diagnosis: Aftercare following right [...] Home Health Primary disciplines requested: Physical Therapy Senior Care Secondary disciplines requested: Occupational Therapy Home Health [...] provider for: severe uncontrolled pain Walker The dcad-xx-nahb evaluation was performed on: 11/11/2018 THANK YOU for choosing us to provide your health care. Your HEALTH AND SAFETY are important to us. We hope you feel your care on SCU was ALWAYS EXCELLENT! Please call SCU at [phone] if you have any questions regarding your care. Wishing you continued improvement during your recovery. The Staff of The Surgical Care Unit . Flakita Starks Crystal, Sharon, Sarah, Randy, Peggy, Hannah, Megan, Dana, Nancy, Cee, Suzan, Lu,Carmen, Ute and Salud. Discharge Medications: Current Medications TAKE these medications [...] SYNTHROID, LEVOTHROID Take 112 mcg by mouth freight receiver before breakfast. oxyCODONE-acetaminophen 5-325 mg per tablet [...] 11/13/2018 To Be Determined Shagufta Gonzalez RN Nima None 11/13/2018 To Be Determined HH RESOURCE PT NIMA MONTERO Nima None 11/17/2018 To Be Determined SEDRICK Brown None 11/25/2018 9:30 AM ELIZABETH Ray OSM [facility] Decent Contact Information for Follow-ups [facility] Home Care Services Specialty: Home Health and Hospice [address] [place] [id number] Next Steps: Follow up Questions: Service Line: Home Health Primary disciplines requested: Physical Therapy Senior Care Secondary disciplines requested: Occupational Therapy Home Health [...] Authorization ELIZABETH Ray Specialty: Orthopedic Surgery, Physician Surgical Scheduler [address] [place] [id number] Next Steps: Go on 11/25/2018 Cosigned by Kemal Wright MD at 11/13/2018 10:23 AM LAUNDRY ROUTE DRIVER DRY ROUTE DRIVER DRY ROUTE DRIVER documented in this encounter Discharge Instructions * Discharge Instr - Other Orders* Katlin Valencia RN - 11/12/2018 11:48 AM LAUNDRY ROUTE DRIVER THANK YOU for choosing us to provide your health care. Your HEALTH AND SAFETY are important to us. We hope you feel your care on SCU was ALWAYS EXCELLENT! Please call SCU at [phone] if you have any questions regarding your care. Wishing you continued improvement during your recovery. The Staff of The Surgical Care Unit . Flakita Starks, Dede Almaraz Sarah, Scott, Lexie, Katlin, Jaz, Nithya, Madison, Cee, Suzan, Lu,Carmen, Ute and Salud. DRY ROUTE DRIVER * Attachments The following attachments cannot be sent through Care Everywhere. * Joint Replacement Surgery (Discharge Care) (Montenegrin) * How to Use an Incentive Spirometer (Discharge Care) (Montenegrin) * DONA Hose (Discharge Care) (Montenegrin) * Ascorbic Acid (Vitamin C) (By mouth) (Montenegrin) * Celecoxib (By mouth) (Montenegrin) * Iron Supplements (By mouth) (Montenegrin) * Oxycodone/Acetaminophen (By mouth) (Montenegrin) documented in this encounter Medications at Time of Discharge atorvastatin (LIPITOR) 40 mg tablet Take 40 mg by mouth daily. 10/09/2018 cyanocobalamin (Vitamin B-12) 1,000 mcg tabletIndications :Prevention of Vitamin B12 Deficiency Take 1,000 mcg by mouth daily. folic acid (FOLVITE) 1 mg tablet Take 1 mg by mouth daily. levothyroxine (SYNTHROID, LEVOTHROID) 112 mcg tablet Take 112 mcg by mouth freight receiver before breakfast. 07/21/[address] (PROTONIX) 20 [...] in this encounter Progress Notes * Emily Gurrola, [facility] - 11/12/2018 2:38 PM CST Patient has been on 20 mg rivaroxaban for years (hx recurrent VTEs, stroke). She is restarting her 20 mg dose post-op. Student discussed s/sx of a clot, s/sx of a bleed, and drug interactions. She didn't have any questions and was provided a handout on Xarelto for reference. DRY ROUTE DRIVER * Marilee Powell, OT - 11/12/2018 11:57 [...] Equipment Wheeled walker Prior Function Level of [place] Independent with ADLs;Independent with homemaking with ambulation (disability due to shdr/neck/back limitations work/accident) Lives With Son;Other (Comment) (DIL) Receives Help From Family Driving Yes Current License Yes UE Dressing UE Dressing: Level of assistance Set up UE Dressing: Assistance with Thread RUE;Thread LUE;recovery analyst head;Pull down in back LE Dressing LE [...] to Discharge No OT Evaluation Complete Yes DRY ROUTE DRIVER * James Aviles, PT - 11/12/2018 9:34 [...] use at PLOF) Prior Function Level of [place] Independent with ADLs;Independent functional transfers;Independent with ambulation [...] Scales Pasero Opioid-Induced Sedation Scale (POSS) 1 DRY ROUTE DRIVER * Theodore Raya, [facility] - 11/11/2018 7:52 PM CST Xarelto dose changed to 10mg po qd for 12 days post knee op for vte prophylaxis DRY ROUTE DRIVER * Robel Gurrola, [facility] - 11/11/2018 11:18 AM CST Dose adjusted per surgical prophylaxis protocol, for weight less than 80 kg give 1000 mg, for weight 80 kg or greater give 1500 mg beginning 1-2 hours prior to incision. DRY ROUTE DRIVER documented in this encounter H&P Notes * Kemal Wright MD - 11/11/2018 12:27 PM CST I have reviewed the H&P, examined the patient, and endorse the findings as written. Plan of Care : Based on the above findings, I consider Janine Vidal to be an acceptable risk for : Procedure(s): Right total knee arthroplasty Roshan and Nephgilma Castillo Bemarioy, TENS, CPM in hospital, cooling unit, 1liter beta rinse, and Depuy cement and quick set cement DRY ROUTE DRIVER Source Note - Ever Nino PA - 11/06/2018 4:19 PM LAUNDRY ROUTE DRIVER [facility] Orthopedics and Sports Medicine Janine Vidal Chief [...] right Total knee arthroplasty on 11/11/18 at [facility]. It is estimated they will have [...] Kemal Wright MD at 11/09/2018 10:20 AM LAUNDRY ROUTE DRIVER DRY ROUTE DRIVER DRY ROUTE DRIVER * Ever Nino PA - 11/06/2018 4:19 PM CST [facility] Orthopedics and Sports Medicine Janine Vidal Chief [...] right Total knee arthroplasty on 11/11/18 at [facility]. It is estimated they will have [...] Kemal Wright MD at 11/09/2018 10:20 AM LAUNDRY ROUTE DRIVER DRY ROUTE DRIVER DRY ROUTE DRIVER documented in this encounter Nursing Notes * Lexie Kurtz RN - 11/12/2018 4:19 PM CST 1510 Discharged to home in stable condition. Escorted to car per wheelchair. DRY ROUTE DRIVER * Lexie Kurtz RN - 11/12/2018 1:56 PM CST Discharge instructions given with home pharmacy delivery at bedside. No new equipment issued. All belongings packed. IV removed. Son here to take home. DRY ROUTE DRIVER documented in this encounter Miscellaneous Notes * Plan of Care - Zaynab Luevano PTA - 11/12/2018 2:34 PM CST Problem: PT Misc Goal: [facility] - [facility] Pt to ambulate 300' indep with fww consistently, to increase functional independence. Outcome: Progressing DRY ROUTE DRIVER * Plan of Care - Lexie Kurtz RN - 11/12/2018 1:55 PM CST Goals: Clinical Goals for the Shift: pt safety, comfort, mobility, VSS, oral intake and UOP qs Summary: all goals met for stable discharge to home DRY ROUTE DRIVER * Plan of Care - Mariela Yang RN - 11/12/2018 11:04 AM CST I spoke with pt and she lives with son and dxdcmqqv-on-ofm in [place]. She lives in the basement. Its a 2 level home and 2 stairs to enter and then steps to basement...approximately 10. She was indep with adls and ambulation. She has a wheeled walker and owns a wc, scooter, cane and BSC also and wants [facility], i sent referral to Heather for home care. I had explained pt choice list and she was fine with [facility]...she did NOT want [facility]. Goal is to return home with help of her family. DRY ROUTE DRIVER * Plan of Care - Heather Lombardi RN - 11/12/2018 11:00 AM CST PT SET UP FOR HOME CARE WITH [facility] [phone] DRY ROUTE DRIVER * Plan of Care - Berto Jacobsen [...] Sensory: ??? Pain level will decrease Progressing DRY ROUTE DRIVER * Perioperative Nursing Note - Tracy Austin RN - 11/11/2018 5:04 PM CST 1645 radiology staff performed x ray at bedside. r knee flexed to 90 degrees with pillows. DRY ROUTE DRIVER * Op Note - Kemal Wright MD [...] Implant Name Type Inv. Item Serial No. Sport Shoe Spike Assembler Lot No. LRB No. Used ISLAS [employer] NEPHEW/RICHCO/ORTHO [id number] LEGION 9MM DISHED KNEE 3-4 INSERT TIBIAL XLPE - [id number] & NEPHEW/RICHCO/ORTHO [id number] LEGION 9MM DISHED KNEE 3-4 INSERT TIBIAL XLPE [employer]las [employer] Nephew/Richco/Ortho [id number] Right 1 [employer] NEPHEW/RICHCO/ORTHO [id number] LEGION CEMENTED MALE TAPER KNEE RIGHT 4 BASEPLATE TIBIAL TITANIUM - [id number] IS[employer] NEPHEW/RICHCO/ORTHO [id number] LEGION CEMENTED MALE TAPER KNEE RIGHT 4 BASEPLATE TIBIAL TITANIUM Islas [employer] Nephew/Richco/Ortho [id number] Right 1 [id number] size 4 right cruciate retaining legion oxinium femoral componenet Islas [employer] Nephew [id number] Right 1 [employer] [id number] PALACOS R+G HIGH VISCOSITY CEMENT BONE GENTAMICIN ARTHROPLASTY - [id number] [employer] [id number] PALACOS R+G HIGH VISCOSITY CEMENT BONE GENTAMICIN ARTHROPLASTY [employer] [id number] Right 1 OPERATIVE DETAILS Estimated Blood Loss: [...] Wright MD Date: 11/11/2018 Time: 8:47 PM DRY ROUTE DRIVER * Pre-Procedure Instructions - Brigette Sanchez RN - 10/28/2018 10:38 AM LAUNDRY ROUTE DRIVER We are pleased that you and your doctor have chosen [facility] for your surgery. We hope that the [...] mcg tablet ?? Use no make-up, nail emirati, lotions, oils or powders on your skin. [...] posted at the top of the page. DRY ROUTE DRIVER documented in this encounter Plan of Treatment Not on file documented as of this encounter Procedures Procedure Name Priority Date/Time Associated Diagnosis Comments XR KNEE RIGHT 1 OR 2 VIEWS STAT 11/11/2018 4:44 PM LAUNDRY ROUTE DRIVER ARTHROPLASTY TOTAL KNEE 11/11/2018 1:52 PM LAUNDRY ROUTE DRIVER Primary osteoarthritis of right knee Special Needs Islas and Nephew Black Beauty, TENS, CPM in hospital, cooling unit, 1 liter beta rinse, and Depuy cement and quick set cement APTT STAT 11/11/2018 11:54 AM LAUNDRY ROUTE DRIVER PROTIME-INR STAT 11/11/2018 11:54 AM LAUNDRY ROUTE DRIVER SURGICAL PATHOLOGY Routine 11/11/2018 9: 58 AM LAUNDRY ROUTE DRIVER Primary osteoarthritis of right knee documented in this encounter Results * XR Knee Right 1 or 2 View (11/11/2018 4:44 PM LAUNDRY ROUTE DRIVER) Anatomical Region Laterality Modality Lower Extremities, Knee Right Computed Radiography 11/11/2018 4:47 PM LAUNDRY ROUTE DRIVER Impressions 11/11/2018 4:48 PM LAUNDRY ROUTE DRIVER 1. ??Status post right total knee arthroplasty; femoral and tibial components only. Electronically signed by: Yann Trinidad Jr., M.D. Narrative 11/11/2018 4:48 PM LAUNDRY ROUTE DRIVER XR KNEE RIGHT 1 OR 2 VIEWS [...] Electronically signed by: Yann Trinidad Jr., M.D. us Ever JOHNSON IMG XR PROCEDURES Final Res ult * aPTT (11/11/2018 11:54 AM LAUNDRY ROUTE DRIVER) aPTT 26.6 25.0 - 37.0 sec [facility] ([place]) Blood specimen (specimen) 11/11/2018 11:54 AM LAUNDRY ROUTE DRIVER 11/11/2018 12:07 PM LAUNDRY ROUTE DRIVER Narrative [facility] ([place]) - 11/11/2018 12:25 PM LAUNDRY ROUTE DRIVER Iglesia Sherman MD LAB BLOOD ORDERABLES F inal Result [facility] ([place]) 1 [facility] Department [place] [address] * Protime-INR (11/11/2018 11:54 AM LAUNDRY ROUTE DRIVER) PT 11.3 9.5 - 13.0 sec JOSE [...] 2015. Blood specimen (specimen) 11/11/2018 11:54 AM LAUNDRY ROUTE DRIVER 11/11/2018 12:07 PM LAUNDRY ROUTE DRIVER Narrative [facility] ([place]) - 11/11/2018 12:22 PM LAUNDRY ROUTE DRIVER us Iglesia Sherman MD LAB BLOOD ORDERABLES F inal Result JOSE J [facility] 1 [facility] Department [place] [address] * Surgical pathology (11/11/2018 9:58 AM LAUNDRY ROUTE DRIVER) Tissue (Bone Fragment(s),) 11/11/2018 2:57 PM LAUNDRY ROUTE DRIVER Narrative PATHOLOGY [facility] ([place]) - 11/17/2018 2:42 PM LAUNDRY ROUTE DRIVER EPIC results best viewed via link to PDF [facility] Department of Pathology [address] [place] [id number] Final Report Patient Name: ??JANINE VIDAL Address: ??[address] [place] [address], ??[place], [place] ??[address] Gender: ??F : ??1960 (Age: 58) Service: ??Surgery Location: ??[facility] Hospital #: ??[id number] Patient Type: ??[facility] Accession # [id number] Taken: ??11/11/2018 Received: ??11/12/2018 Accessioned: ??11/12/2018 Reported: [...] determined by the Surgical Pathology Department at [facility] as part of an ongoing senior quality control technician program and in compliance with federally mandated [...] characteristics determined by the Surgical Pathology Department [facility]. ??It has not been cleared or approved by the U. S. Food and Drug Administration. Kemal Wright MD LAB PATHOLOGY ORDERABLES Fin al Result PATHOLOGY [facility] [place]) 1 [place] [address] * ECG 12 lead (11/04/2018 6:42 AM LAUNDRY ROUTE DRIVER) 11/03/2018 12:4 6 PM LAUNDRY ROUTE DRIVER Narrative [facility] - 11/03/2018 9:39 PM LAUNDRY ROUTE DRIVER Vent Rate: 77 bpm RR Interval: 778 msec [place] Interval: 194 msec QRS Duration: 86 msec QT Interval: 365 msec QTC Interval: 396 msec P-R-T Chappell: 67 - 6 - 74 degrees SINUS RHYTHM LOW QRS VOLTAGE IN PRECORDIAL LEADS ??[QRS DEFLECTION < 1.0 mV IN CHEST LEADS] NONSPECIFIC T-WAVE ABNORMALITY BORDERLINE ECG Electronically Signed By: Darion Lang MD Kemal Wright MD ECG ORDERABLES Final Result [facility] * (ABNORMAL) Vitamin D 25 hydroxy (11/03/2018 1:00 PM LAUNDRY ROUTE DRIVER) Vitamin D 25-OH 12(L) 30 - 80 ng/mL [facility] ([place]) Blood specimen (specimen) 11/03/2018 1:00 PM LAUNDRY ROUTE DRIVER 11/03/2018 1:14 PM LAUNDRY ROUTE DRIVER Narrative [facility] ([place]) - 11/03/2018 2:20 PM LAUNDRY ROUTE DRIVER Kemal Wright MD LAB BLOOD ORDERABLES Final R esult [facility] ([place]) 1 [facility] Department [place] [address] * (ABNORMAL) Urinalysis reflex to microscopic and culture Urine, clean voided (11/03/2018 1:00 PM LAUNDRY ROUTE DRIVER) Color, ur Yellow Yellow [facility] ([place]) Clarity, ur Clear Clear [facility] ([place]) Specific gravity, ur 1.003(L) 1.010 - 1.025 [facility] ([place]) pH, urine 6.5 [facility] ([place]) Protein, ur ql Negative Negative [facility] ([place]) Glucose, ur ql Negative Negative [facility] ([place]) Ketones, ur Negative Negative [facility] ([place]) Bilirubin, ur Negative Negative [facility] ([place]) Blood, ur Negative Negative [facility] ([place]) Urobilinogen, ur 0.2 mg/dL [facility] ([place]) Nitrite, ur Negative Negative [facility] ([place]) Leukocyte esterase, ur Negative Negative [facility] ([place]) Urine, clean voided 11/03/2018 1:00 PM LAUNDRY ROUTE DRIVER 11/03/2018 1:14 PM LAUNDRY ROUTE DRIVER Narrative [facility] ([place]) - 11/03/2018 1:22 PM LAUNDRY ROUTE DRIVER ?? Urine pH is affected by diet, medications, systemic acid-base disturbances, and renal tubular function. ??pH may affect urinary stone formation. ??For example, urine pH below 6.0 may help reduce the tendency for calcium phosphate stones and pH greater than 6.0 may reduce the tendency for uric acid stone formation. Source: [facility] [employer]. Last revised 09-26-2017 Kemal Wright MD LAB MICROBIOLOGY - GENERAL O RDERABLES Final Result Performing Organization Address [facility] Co de Phone Number [facility] J [facility] ([place]) 1 [facility] [place] [address] * (ABNORMAL) aPTT (11/03/2018 1:00 PM LAUNDRY ROUTE DRIVER) aPTT 42.4(H) 25.0 - 37.0 sec [facility] ([place]) Blood specimen (specimen) 11/03/2018 1:00 PM LAUNDRY ROUTE DRIVER 11/03/2018 1:14 PM LAUNDRY ROUTE DRIVER Narrative [facility] ([place]) - 11/03/2018 2:09 PM LAUNDRY ROUTE DRIVER Kemal Wright MD LAB BLOOD ORDERABLES Final R esult Performing Organization Address City/[facility]/ZIP Co de Phone Number [facility] ([place]) 1 [facility] [place] [address] * (ABNORMAL) Protime-INR (11/03/2018 1:00 PM LAUNDRY ROUTE DRIVER) PT 17.3(H) 9.5 - 13.0 sec [facility] ([place]) INR 1.52(H) 0.90 - 1.20 [facility] ([place]) Comment: Interpretive Data Recommended ranges for Protime INR: 2.0 - 3.0 Most indications for Warfarin therapy (e.g. Treatment of DVT, PE, bioprosthetic valve replacement, prophylaxis venous thrombosis, atrial fibrillation). 2.5 - 3.5 Mechanical mitral valve or dual mechanical mitral and Aortic valve replacement. Current Interpretive Data was last revised on 2015. Blood specimen (specimen) 11/03/2018 1:00 PM LAUNDRY ROUTE DRIVER 11/03/2018 1:14 PM LAUNDRY ROUTE DRIVER Narrative [facility] ([place]) - 11/03/2018 2:06 PM LAUNDRY ROUTE DRIVER Kemal Wright MD LAB BLOOD ORDERABLES Final R esult [facility] ([place]) 1 [facility] Department [place] [address] * (ABNORMAL) Comprehensive metabolic panel (11/03/2018 1:00 PM LAUNDRY ROUTE DRIVER) Pathologist [facility] Sodium 141 135 - 145 mmol/L [facility] ([place]) Potassium, pl 3.3 3.3 - 4.9 mmol/L [facility] ([place]) Chloride 105 97 - 110 mmol/L [facility] ([place]) CO2 23 22 - 32 mmol/L [facility] ([place]) Anion gap 13 2 - 15 mmol/L [facility] ([place]) BUN 6(L) 8 - 25 mg/dL [facility] ([place]) Creatinine 0.93 0.60 - 1.10 mg/dL [facility] ([place]) Glucose 102 70 - 199 mg/dL [facility] ([place]) Comment: Interpretive Data Fasting glucose >/= [...] ([place]) Blood specimen (specimen) 11/03/2018 1:00 PM LAUNDRY ROUTE DRIVER 11/03/2018 1:14 PM LAUNDRY ROUTE DRIVER Narrative [facility] ([place]) - 11/03/2018 2:04 PM LAUNDRY ROUTE DRIVER us Kemal Wright MD LAB BLOOD ORDERABLES Final R esult [facility] ([place]) 1 [facility] Department [place] [address] * CBC with auto differential (11/03/2018 1:00 PM LAUNDRY ROUTE DRIVER) WBC 7.6 3.8 - 9.9 K/cumm [facility] ([place]) Hgb 13.9 11.9 - 15.5 g/dL [facility] ([place]) Hct 41.8 35.6 - 45.5 % [facility] ([place]) Plt 295 150 - 400 K/cumm [facility] ([place]) MPV 10.1 9.1 - 12.3 fL [facility] ([place]) RBC 4.94 3.90 - 5.20 M/cumm [facility] ([place]) MCV 84.6 81.3 - 96.4 fL [facility] ([place]) MCH 28.1 27.1 - 33.3 pg [facility] ([place]) MCHC 33.3 32.3 - 35.7 g/dL [facility] ([place]) RDW CV 13.5 11.1 - 14.9 % [facility] ([place]) RDW SD 42.1 35.7 - 48.1 fL [facility] ([place]) NRBC abs 0.00 0.00 - 0.01 K/cumm [facility] ([place]) Blood specimen (specimen) 11/03/2018 1:00 PM LAUNDRY ROUTE DRIVER 11/03/2018 1:14 PM LAUNDRY ROUTE DRIVER Narrative [facility] ([place]) - 11/03/2018 1:19 PM LAUNDRY ROUTE DRIVER us Kemla Wright MD LAB BLOOD ORDERABLES Final R esult [facility] ([place]) 1 [facility] Department [place] [address] documented in this encounter Visit Diagnoses Diagnosis Preoperative testing Unspecified pre-operative examination Primary osteoarthritis of right knee Primary osteoarthritis of right knee Preoperative testing Unspecified pre-operative examination Preoperative testing Unspecified pre-operative examination Primary osteoarthritis of right knee Primary osteoarthritis of right knee documented in this encounter Admitting Diagnoses Diagnosis Primary osteoarthritis of right knee documented in this encounter Administered Medications Inactive Administered Medications - up to 3 most recent administrations Medication Order MAR Action Action Date Dose Rate Site albuterol (PROVENTIL,VENTOLIN) 2.5 mg /3 mL (0.083 %) nebulizer solution 2.5 mg 2.5 mg, nebulization, 2 times daily PRN (corporate responsibility officer), wheezing, Starting on Sat11/11/18 at 1945 ascorbic acid (VITAMIN C) tablet/chewable tablet 500 mg 500 mg, oral, 2 times daily, First dose on Sat11/11/18 at 2100, Indications: Vitamin deficiency preventionIndications:Vitamin deficiency prevention Given 11/12/2018 9:27 AM LAUNDRY ROUTE DRIVER 500 mg Given 11/11/2018 8:38 PM LAUNDRY ROUTE DRIVER 500 mg atorvastatin (LIPITOR) tablet 40 mg 40 mg, oral, Daily, First dose on Sat11/11/18 at 2100 Given 11/11/2018 9:26 PM LAUNDRY ROUTE DRIVER 40 mg bacitracin 100,000 Units, polymyxin B 1,000,000 Units in sodium chloride 0.9% 1,000 mL irrigation solution As needed, Starting on Sat11/11/18 at 1454, Intra-Op Given 11/11/2018 2:54 PM LAUNDRY ROUTE DRIVER 1,000 mL Surgical Site bacitracin 100,000 Units, polymyxin B 1,000,000 Units in sodium chloride 0.9% 1,000 mL irrigation solution As needed, Starting on Sat11/11/18 at 1455, Intra-Op Given 11/11/2018 2:55 PM LAUNDRY ROUTE DRIVER Surgical Site celecoxib (CeleBREX) capsule 200 mg 200 mg, oral, 2 times daily, First dose on Sat11/11/18 at 2100, Indications: Postoperative Acute Pain, PainIndications:Postoperative Acute Pain,Pain Given 11/12/2018 9:27 AM LAUNDRY ROUTE DRIVER 200 mg Given 11/11/2018 8:38 PM LAUNDRY ROUTE DRIVER 200 mg celecoxib (CeleBREX) capsule 400 mg 400 mg, oral, Once, On Sat11/11/18 at 1145, For 1 dose, Pre-Op, Hold if elevated creatine, Indications: PainIndications:Pain Given 11/11/2018 1:48 PM LAUNDRY ROUTE DRIVER 400 mg cetirizine (ZyrTEC) tablet 10 mg 10 mg, oral, Daily, First dose on Sat11/11/18 at 2014 Given 11/12/2018 9:27 AM LAUNDRY ROUTE DRIVER 10 mg cyanocobalamin (Vitamin B-12) tablet 1,000 mcg 1,000 mcg, oral, Daily, First dose on Sat11/11/18 at 2015, Indications: Prevention of Vitamin B12 DeficiencyIndications:Prevention of Vitamin B12 Deficiency Given 11/12/2018 9:28 AM LAUNDRY ROUTE DRIVER 1,000 mcg Given 11/11/2018 9:26 PM LAUNDRY ROUTE DRIVER 1,000 mcg diphenhydrAMINE (BENADRYL) injection 12.5 mg 12.5 mg, intravenous, Every 15 min PRN, itching, Starting on Sat11/11/18 at 1624, For 2 doses, Phase I, Max cumulative dose 50 mg., Indications: ItchingIndications:Itching Given 11/11/2018 6:29 PM LAUNDRY ROUTE DRIVER 12.5 mg Right Hand diphenhydrAMINE (BENADRYL) injection 25 mg 25 mg, intravenous, Administer over 2 Minutes, Every 10 min PRN, other, reman's, Starting on Sat11/11/18 at 1127, For 2 doses, Pre-Op Given 11/11/2018 12:03 PM LAUNDRY ROUTE DRIVER 25 mg diphenhydrAMINE (BENADRYL) injection 25 mg 25 mg, intravenous, Administer over 2 Minutes, Once, On Sat11/11/18 at 2300, For 1 dose, Indications: Hx daryl syndromeIndications:Hx daryl syndrome Given 11/11/2018 11:30 PM LAUNDRY ROUTE DRIVER 25 mg ferrous sulfate tablet 325 mg 325 mg (65 mg of elemental iron), oral, Daily with breakfast, First dose on Sat11/12/18 at 0800, Indications: Iron Deficiency Anemia, Anemia preventionIndications:Iron Deficiency Anemia,Anemia prevention Given 11/12/2018 9:28 AM LAUNDRY ROUTE DRIVER 325 mg HYDROcodone-acetaminophen (NORCO) 5-325 mg per tablet 1-2 tablet 1-2 tablet, oral, Every 4 hours PRN, 1st line for pain, Starting on Sat11/11/18 at 1935, Indications: PainIndications:Pain Given 11/12/2018 1:05 AM LAUNDRY ROUTE DRIVER 1 tablet Lactated Ringer's (LR) infusion 30 mL/hr, intravenous, Continuous, Starting on Sat11/11/18 at 1145, Pre-Op New Bag 11/11/2018 2:52 PM LAUNDRY ROUTE DRIVER New Bag 11/11/2018 12:07 PM LAUNDRY ROUTE DRIVER 30 mL/hr 30 mL/hr levothyroxine (SYNTHROID, LEVOTHROID) tablet 112 mcg 112 mcg, oral, Daily (early AM), First dose on Sat11/12/18 at 0600, Administer on an empty stomach, preferably 30 minutes before breakfast. Take 4 hours apart from antacids, iron and calcium products. Given 11/12/2018 5:34 AM LAUNDRY ROUTE DRIVER 112 mcg ondansetron (ZOFRAN) injection 4 mg [...] Vomiting,nausea and vomiting Given 11/12/2018 10:54 AM LAUNDRY ROUTE DRIVER 4 mg Given 11/11/2018 9:29 PM LAUNDRY ROUTE DRIVER 4 mg oxyCODONE ER (OxyCONTIN) extended release tablet 20 mg 20 mg, oral, Once, On Sat11/11/18 at 1145, For 1 dose, Pre-Op, Do not crush, chew, cut, dissolve, open or otherwise manipulate tablet/capsule., Indications: PainIndications:Pain Given 11/11/2018 1:48 PM LAUNDRY ROUTE DRIVER 20 mg oxyCODONE-acetaminophen (PERCOCET) 5-325 mg per tablet 1-2 tablet 1-2 tablet, oral, Every 4 hours PRN, 2nd line for pain, Starting on Sat11/11/18 at 1935, Indications: PainIndications:Pain Given 11/12/2018 6:33 AM LAUNDRY ROUTE DRIVER 1 ta blet Given 11/12/2018 2:19 AM LAUNDRY ROUTE DRIVER [address] (PROTONIX) extended release tablet 40 mg 40 mg, oral, Daily, First dose on Sat11/11/18 at 2030, Do not crush, chew, cut, dissolve, open or otherwise manipulate tablet/capsule., Indications: Treatment of Non-Bleeding Gastric DisorderIndications:Treatment of Non-Bleeding Gastric Disorder Given 11/12/2018 9:28 AM LAUNDRY ROUTE DRIVER 40 mg Given 11/11/2018 8:38 PM LAUNDRY ROUTE DRIVER 40 mg povidone-iodine (BETADINE) 120 mL in sodium chloride 0.9 % 1,000 mL solution As needed, Starting on Sat11/11/18 at 1455, Intra-Op Given 11/11/2018 2:55 PM LAUNDRY ROUTE DRIVER 1,120 mL Surgical Site rivaroxaban (XARELTO) tablet 20 mg 20 mg, [...] Sat11/11/18 at 2100, Hold for diarrhea., Indications: constipationIndications:constipat ion Given 11/12/2018 9:29 AM LAUNDRY ROUTE DRIVER 2 tablets Given 11/11/2018 8:38 PM LAUNDRY ROUTE DRIVER 2 tablets sodium chloride 0.9 % irrigation As needed, Starting on Sat11/11/18 at 1456, Intra-Op Given 11/11/2018 2:56 PM LAUNDRY ROUTE DRIVER 3,000 mL Surgical Site sodium chloride 0.9% infusion 100 mL/hr, intravenous, Continuous, Starting on Sat11/11/18 at 2015, DISCONTINUE WHEN TOLERATING ORAL FLUIDS New Bag 11/12/2018 5:34 AM LAUNDRY ROUTE DRIVER 100 mL/hr 100 mL/hr New Bag 11/11/2018 8:40 PM LAUNDRY ROUTE DRIVER 100 mL/hr 100 mL/hr tranexamic acid (CYKLOKAPRON) 1,000 mg/10 mL (100 mg/mL) solution As needed, Starting on Sat11/11/18 at 1457, Intra-Op Given 11/11/2018 2:57 PM LAUNDRY ROUTE DRIVER 3,000 mg Surgical Site vancomycin (VANCOCIN) solution As needed, Starting on Sat11/11/18 at 1456, Intra-Op Given 11/11/2018 2:56 PM LAUNDRY ROUTE DRIVER 1,000 mg Surgical Site vancomycin 1500 mg/250 mL in sodium chloride 0.9% (premix) 1,500 mg 1,500 mg, intravenous, Administer over 90 Minutes, Once, On Sat11/12/18 at 0000, For 1 dose, Administer 12 hours after pre-procedure dose., Indications: Prophylaxis, SurgicalIndications:Prophylaxi s, Surgical New Bag 11/12/2018 12:40 AM LAUNDRY ROUTE DRIVER 1,500 mg vancomycin 1500 mg/250 mL in sodium chloride 0.9% (premix) 1,500 mg 1,500 mg, intravenous, Administer over 90 Minutes, Once, On Sat11/11/18 at 1200, For 1 dose, Pre-Op, Dose adjusted per surgical prophylaxis protocol, for weight less than 80 kg give 1000 mg, for weight 80 kg or greater give 1500 mg beginning 1-2 hours prior to incision., Indications: Prophylaxis, SurgicalIndications:Prophylaxi s, Surgical New Bag 11/11/2018 12:04 PM LAUNDRY ROUTE DRIVER 1,500 mg documented in this encounter Discontinued Medications Medication Sig Discontinue Reason Start Date End Da te atorvastatin (LIPITOR) 20 mg tablet Therapy completed 02/01/2018 11/03/2018 VENTOLIN HFA 90 mcg/actuation inhaler Therapy completed 09/30/2018 11/03/19 aspirin 81 mg tablet Take 81 mg [...] Recently Administered Medications Times are shown in LAUNDRY ROUTE DRIVER. Scheduled Medication Order 11/10/2018 11/11/2018 11/12/2018 ascorbic acid (VITAMIN C) tablet/chewable tablet 500 mg 500 mg, oral, 2 times daily, First dose on Sat11/11/18 at 2100, Indications: Vitamin deficiency prevention 2037 (Given - Provider: Berto Jacobsen RN) 0927 (Given - Provider: Lexie Kurtz, MIKHAIL) atorvastatin (LIPITOR) tablet 40 mg 40 mg, oral, Daily, First dose on Sat11/11/18 at 2100 2126 (Given - Provider: Berto Jacobsen RN) celecoxib (CeleBREX) capsule 200 mg 200 mg, oral, 2 times daily, First dose on Sat11/11/18 at 2100, Indications: Postoperative Acute Pain, Pain 2037 (Given - Provider: Berto Jacobsen RN) 0927 (Given - Provider: Lexie Kurtz, MIKHAIL) celecoxib (CeleBREX) capsule 400 mg (COMPLETED) 400 mg, oral, Once, On Sat11/11/18 at 1145, For 1 dose, Pre-Op, Hold if elevated creatine, Indications: Pain 1348 (Given - Provider: Ester Pryor, MIKHAIL) cetirizine (ZyrTEC) tablet 10 mg 10 mg, oral, Daily, First dose on Sat11/11/18 at 2014 2035 (Not Given - Provider: Berto Jacobsen RN - Reason: Patient/family refused) 926 (Given - Provider: Lexie Kurtz, MIKHAIL) cyanocobalamin (Vitamin B-12) tablet 1,000 mcg 1,000 mcg, oral, Daily, First dose on Sat11/11/18 at 2014, Indications: Prevention of Vitamin B12 Deficiency 2125 (Given - Provider: Berto Jacobsen RN) 927 (Given - Provider: Lexie Kurtz, MIKHAIL) diphenhydrAMINE (BENADRYL) injection 25 mg (COMPLETED) 25 mg, intravenous, Administer over 2 Minutes, Once, On Sat11/11/18 at 2300, For 1 dose, Indications: Hx daryl syndrome 0 (Given - Provider: Berto Jacobsen RN) ferrous sulfate tablet 325 mg 325 mg (65 mg of elemental iron), oral, Daily with breakfast, First dose on Sat11/12/18 at 0800, Indications: Iron Deficiency Anemia, Anemia prevention 927 (Given - Provid er: Lexie Kurtz RN) [...] Indications: Pain 1348 (Given - Provider: Ester Pryor, MIKHAIL) pantoprazole DR (PROTONIX) extended release tablet 40 mg 40 mg, oral, Daily, First dose on Sat11/11/18 at 2030, Do not crush, chew, cut, dissolve, open or otherwise manipulate tablet/capsule., Indications: Treatment of Non-Bleeding Gastric Disorder 2037 (Given - Provider: Berto Jacobsen RN) 927 (Given - Provider: Lexie Kurtz, MIKHAIL) polyethylene glycol (MIRALAX) packet 17 g 17 g, oral, Daily, First dose on Sat11/12/18 at 0900, Hold for diarrhea., Indications: constipation 927 (Not Given - Provider: Lexie Kurtz, RN - Reason: Patient/family refused) rivaroxaban (XARELTO) [...] Jacobsen RN) 928 (Given - Provider: Lexie Kurtz, MIKHAIL) vancomycin 1500 mg/250 mL in sodium chloride 0.9% (premix) 1,500 mg (COMPLETED) 1,500 mg, intravenous, Administer over 90 Minutes, Once, On Sat11/12/18 at 0000, For 1 dose, Administer 12 hours after pre-procedure dose., Indications: Prophylaxis, Surgical 39 (New Bag - Provider: Berto Jacobsen RN) [...] 2.5 mg, nebulization, 2 times daily PRN (corporate responsibility officer), wheezing, Starting on Sat11/11/18 at 1945 bacitracin [...] milk of magnesia, Starting on Sat11/11/18 at 1934, Do not crush, chew, cut, dissolve, open or otherwise manipulate tablet/capsule. diphenhydrAMINE (BENADRYL) injection 12.5 mg (CANCELED) 12.5 mg, intravenous, Every 15 min PRN, itching, Starting on Sat11/11/18 at 1624, For 2 doses, Phase I, Max cumulative dose 50 mg., Indications: Itching 1828 (Given - Provider: Tracy Austin, MIKHAIL) diphenhydrAMINE (BENADRYL) injection 25 mg (CANCELED) 25 mg, intravenous, Administer over 2 Minutes, Every 10 min PRN, other, reman's, Starting on Sat11/11/18 at 1127, For 2 doses, Pre-Op 1203 (Given - Provider: Ester Pryor RN) HYDROcodone-acetaminophen (NORCO) 5-325 mg per tablet 1-2 tablet 1-2 tablet, oral, Every 4 hours PRN, 1st line for pain, Starting on Sat11/11/18 at 1934, Indications: Pain 0105 (Given - Provid er: [...] (See Alternative - Provider: Berto Jacobsen RN) 105 (See Alternative - Provider: Lexie Kurtz RN) ondansetron ODT (ZOFRAN-ODT) disintegrating tablet 4 mg(Linked Group 1) 4 mg, oral, Every 6 hours PRN, nausea, vomiting, Starting on Sat11/11/18 at 1935, Indications: Prevention of Post-Operative Nausea and Vomiting, nausea and vomiting 2128 (Given - Provider: Berto Jacobsen RN) 1054 (Given - Provider: Lexie Kurtz RN) oxyCODONE-acetaminophen (PERCOCET) 5-325 mg per tablet 1-2 tablet 1-2 tablet, oral, Every 4 hours PRN, 2nd line for pain, Starting on Sat11/11/18 at 1935, Indications: Pain 0219 (Given - Provid er: [...] sodium chloride 0.9% 1,000 mL irrigation solution 2 11/11/2018 bisacodyl EC (DULCOLAX EC) tablet 10 [...] naloxone (NARCAN) 0.4 mg/mL injection 0.04-0.4 mg 1 11/11/2018 ondansetron (ZOFRAN) injection 4 mg 1 11/[address] (PROTONIX) e xtended release tablet 20 mg 1 11/11/2018 polyethylene glycol (MIRALAX) packet 17 g 1 11/11/2018 rivaroxaban (XARELTO) tablet 10 mg 1 2018 sodium chloride 0.9% flush 0.5-20 mL 2 10/18 tobramycin (NEBCIN) 152 mg i n sodium chloride 0.9% 100 mL IVPB 1 11/11/2018 tranexamic acid (CYKLOKAPRON ) 3,000 mg in sodium chloride 0.9% 100 mL irrigation solution 1 11/11/2018 vancomycin (VANCOCIN) 1,250 mg in sodium chloride 0.9% 250 mL IVPB 1 11/11/2018 General Supply Count Last Ordered [...] First Orde red Date ASSIGN PATIENT STATUS 11/11/2018 CORE MEASURES Count Last Ordered Date First Ord ered Date REASON FOR NO VTE PROPHYLAXIS AT ADMISSION 1 11/11/2018 documented in this encounter Care Teams Rehabilitation Assistant Relationship Specialty Start Date End Date Dominic Fernando MD [address] [facility] [address] [place] [address] PCP - General 11/28/17 documented as of this encounter
--- OUTSIDE RECORDS SUMMARY | 2024-09-04 17:11 | XMS_ITS | Encounter Summary ---
Author Organization [facility] Healthcare Address [address] [place] [address] Care Team Providers Care Personal Consultant Name Role Phone Dominic Fernando MD Primary Care Provider [phone] Encounter Details Date Type Department Care Team (Late st Contact Info) Description 11/03/2018 1:15 PM STACKER [address] [address] Preoperative testing; Primary osteoarthritis of right knee Social History Tobacco Use [...] on file Legal Sex Female 11:26 PM STACKER Gender Identity Not on file Sexual Orientation Not on file documented as of this encounter Plan of Treatment Not on file documented as of this encounter Procedures Procedure Name Priority Date/Time Associated Diagnosis Comments EGFR Routine 11/03/2018 1:00 PM STACKER Preoperative testing DIFFERENTIAL AUTO Routine 11/03/2018 1:0 0 PM STACKER Preoperative testing URINALYSIS AND REFLEX TO MICROSCOPIC AND CULTURE Routine 11/03/2018 1:00 PM STACKER Preoperative testing CBC WITH AUTO DIFFERENTIAL Routine 11/03/2018 1:00 PM STACKER Preoperative testing VITAMIN D 25 HYDROXY Routine 11/03/2018 1:00 PM STACKER Primary osteoarthritis of right knee APTT Routine 11/03/2018 1:00 PM STACKER Preoperative testing PROTIME-INR Routine 11/03/2018 1:00 PM STACKER Preoperative testing COMPREHENSIVE METABOLIC PANEL Routine 11/03/2018 1:00 PM STACKER Preoperative testing documented in this encounter Results * eGFR (11/03/2018 1:00 PM STACKER) eGFR 68 mL/min/1.7 3 m2 JOSE J JEFFERSON (NIMA) Comment: Interpretive Data Reference Interval Normal ?>/= 90 mL/min/1.73m2 Mildly decreased* ? 60 - 89 mL/min/1.73m2 Mildly to moderately decreased ?45 - 59 mL/min/1.73m2 Moderately to severely decreased ??30 - 44 mL/min/1.73m2 Severely decreased ?15 - 29 mL/min/1.73m2 Kidney Failure ?< 15 ??mL/min/1.73m2 *Relative to young adult level If -Kyr[place] multiply value by 1.16. Estimated glomerular filtration rate is determined by the CKD-EPI equation recommended by the National Kidney Foundation (KDIGO 2012 Clinical Practice Guideline for the Evaluation and Management of Chronic Kidney Disease. Kidney Intnl Suppl Sep 2012;3:1). The CKD-EPI equation should not be used for patients with unstable renal function and has not been validated in children and those over 70. Current interpretive data was last reviewed 2016. Blood specimen (specimen) 11/03/2018 1:00 PM STACKER 11/03/2018 1:14 PM STACKER Narrative [facility] J JEFFERSON (NIMA) - 11/03/2018 2:04 PM STACKER us Kemal Wright MD LAB BLOOD ORDERABLES Final R esult JOSE J JEFFERSON (BATCHELOR) [address] [facility] Department [place] [address] * Differential, auto (11/03/2018 1:00 PM STACKER) Neutrophil abs 4.8 1.7 - 6.5 K/cumm [facility] ([place]IM[place]) Imm gran abs 0.0 0.0 - 0.1 K/cumm [facility] ([place]) Lymphocyte abs 2.1 0.8 - 3.3 K/cumm [facility] ([place]) Monocyte abs 0.4 0.2 - 0.8 K/cumm [facility] ([place]) Eosinophil abs 0.2 0.0 - 0.5 K/cumm [facility] ([place]) Basophil abs 0.0 0.0 - 0.1 K/cumm [facility] ([place]) Neutrophil pct 63.0 % [facility] ([place]) Comment: Interpretive Data Percent cell count reference ranges are not reported, since discordance with absolute values may lead to misinterpretation of CBC data. Current Interpretive Data was last revised on 2017. Imm gran pct 0.3 % [facility] ([place]) Comment: Interpretive Data Percent cell count reference ranges are not reported, since discordance with absolute values may lead to misinterpretation of CBC data. Current Interpretive Data was last revised on 2017. Lymphocyte pct 27.3 % [facility] ([place]) Comment: Interpretive Data Percent cell count reference ranges are not reported, since discordance with absolute values may lead to misinterpretation of CBC data. Current Interpretive Data was last revised on 2017. Monocyte pct 5.9 % [facility] ([place]) Comment: Interpretive Data Percent cell count reference ranges are not reported, since discordance with absolute values may lead to misinterpretation of CBC data. Current Interpretive Data was last revised on 2017. Eosinophil pct 3.0 % [facility] ([place]) Comment: Interpretive Data Percent cell count reference ranges are not reported, since discordance with absolute values may lead to misinterpretation of CBC data. Current Interpretive Data was last revised on 2017. Basophil pct 0.5 % [facility] ([place]) Comment: Interpretive Data Percent cell count reference ranges are not reported, since discordance with absolute values may lead to misinterpretation of CBC data. Current Interpretive Data was last revised on 2017. Blood specimen (specimen) 11/03/2018 1:00 PM STACKER 11/03/2018 1:14 PM STACKER Narrative [facility] ([place]) - 11/03/2018 1:19 PM STACKER Kemal Wright MD LAB BLOOD ORDERABLES Final R esult JOSE J JEFFERSON (NIMA) [address] [facility] [place] [address] * (ABNORMAL) Vitamin D 25 hydroxy (11/03/2018 1:00 PM STACKER) Vitamin D 25-OH 12(L) 30 - 80 ng/mL [facility] JEFF[facility] (NIMA) Blood specimen (specimen) 11/03/2018 1:00 PM STACKER 11/03/2018 1:14 PM STACKER Narrative [facility] ([place]) - 11/03/2018 2:20 PM STACKER us Kemal Wright MD LAB BLOOD ORDERABLES Final R esult JOSE J JEFFERSON (NIMA) [address] [facility] [place] [address] * (ABNORMAL) Urinalysis reflex to microscopic and culture Urine, clean voided (11/03/2018 1:00 PM STACKER) Color, ur Yellow Yellow [facility] ([place]IM[place]) [...] (NIMA) Urine, clean voided 11/03/2018 1:00 PM STACKER 11/03/2018 1:14 PM STACKER Narrative [facility] ([place]) - 11/03/2018 1:22 PM STACKER ?? Urine pH is affected by diet, medications, systemic acid-base disturbances, and renal tubular function. ??pH may affect urinary stone formation. ??For example, urine pH below 6.0 may help reduce the tendency for calcium phosphate stones and pH greater than 6.0 may reduce the tendency for uric acid stone formation. Source: [facility] [place]. Last revised 09-26-2017 Kemal Wright MD LAB MICROBIOLOGY - GENERAL O RDERABLES Final Result Performing Organization Address [facility] Co de Phone Number JOSE J JEFFERSON (BATCHELOR) [address] [facility] [place] [address] * (ABNORMAL) aPTT (11/03/2018 1:00 PM STACKER) aPTT 42.4(H) 25.0 - 37.0 sec [facility]SE J [facility] (NIMA) Blood specimen (specimen) 11/03/2018 1:00 PM STACKER 11/03/2018 1:14 PM STACKER Narrative [facility] ([place]) - 11/03/2018 2:09 PM STACKER Kemal Wright MD LAB BLOOD ORDERABLES Final R esult Performing Organization Address City/[facility]/ZIP Co de Phone Number JOSE J JEFFERSON (NIMA) [address] [facility] [place] [address] * (ABNORMAL) Protime-INR (11/03/2018 1:00 PM STACKER) PT 17.3(H) 9.5 - 13.0 sec [facility] (NIMA) INR 1.52(H) 0.90 - 1.20 [facility] (NIMA) Comment: Interpretive Data Recommended ranges for Protime INR: 2.0 - 3.0 Most indications for Warfarin therapy (e.g. Treatment of DVT, PE, bioprosthetic valve replacement, prophylaxis venous thrombosis, atrial fibrillation). 2.5 - 3.5 Mechanical mitral valve or dual mechanical mitral and Aortic valve replacement. Current Interpretive Data was last revised on 2015. Blood specimen (specimen) 11/03/2018 1:00 PM STACKER 11/03/2018 1:14 PM STACKER Narrative [facility] ([place]IMA) - 11/03/2018 2:06 PM STACKER Kemal Wright MD LAB BLOOD ORDERABLES Final R esult [facility] (BATCHELOR) [address] [facility] Department [place] [address] * (ABNORMAL) Comprehensive metabolic panel (11/03/2018 1:00 PM STACKER) Pathologist [facility] Sodium 141 135 - 145 mmol/L [facility] (NIMA) Potassium, pl 3.3 3.3 - 4.9 mmol/L [facility] ([place]IM[place]) Chloride 105 97 - 110 mmol/L [facility] (NIMA) CO2 23 22 - 32 mmol/L [facility] ([place]IMA) Anion gap 13 2 - 15 mmol/L [facility] ([place]IM[place]) BUN 6(L) 8 - 25 mg/dL [facility] ([place]IMA) Creatinine 0.93 0.60 - 1.10 mg/dL [facility] ([place]IMA) Glucose 102 70 - 199 mg/dL [facility] ([place]IMA) Comment: Interpretive Data Fasting glucose >/= [...] (NIMA) Blood specimen (specimen) 11/03/2018 1:00 PM STACKER 11/03/2018 1:14 PM STACKER Narrative [facility] ([place]) - 11/03/2018 2:04 PM STACKER us Kemal Wright MD LAB BLOOD ORDERABLES Final R esult [facility] ([place]) [address] [facility] [place] [address] * CBC with auto differential (11/03/2018 1:00 PM STACKER) WBC 7.6 3.8 - 9.9 K/cumm C[facility]ER [...] (NIMA) MCH 28.1 27.1 - 33.3 pg [facility] ([place]) MCHC 33.3 32.3 - 35.7 g/dL [facility] ([place]) RDW CV 13.5 11.1 - 14.9 % [facility] ([place]) RDW SD 42.1 35.7 - 48.1 fL [facility] ([place]) NRBC abs 0.00 0.00 - 0.01 K/cumm [facility] ([place]) Blood specimen (specimen) 11/03/2018 1:00 PM STACKER 11/03/2018 1:14 PM STACKER Narrative [facility] ([place]) - 11/03/2018 1:19 PM STACKER us Kemal Wright MD LAB BLOOD ORDERABLES Final R esult [facility] ([place]IMA) [address] [facility] [place] [address] documented in this encounter Visit Diagnoses Diagnosis Preoperative testing Unspecified pre-operative examination Primary osteoarthritis of right knee documented in this encounter Care Teams Personal Consultant Relationship Specialty Start Date End Date Dominic Fernando MD [address] [facility] [address] [place], [place] [id number] PCP - General 08/13/17 documented as of this encounter
--- OUTSIDE RECORDS SUMMARY | 2024-09-04 17:11 | XMS_ITS | Encounter Summary ---
Author Organization [facility] Address [address] [place] [address] Care Team Providers Care Hired Hand Name Role Phone Dominic Fernando MD Primary Care Provider [phone] Reason for Visit * Diagnostic Imaging (Routine) - Closed Specialty Diagnoses / Procedures Referred By Evan t Referred To Contact Diagnoses Orthopedic aftercare Procedures XR Shoulder Right 2 or More Views Juanita Mckay PA Phone: tel: fax: [facility] Referral ID Status Reason Start Date Expiration Date Visits Re quested Visits Authorized [id number] Closed 11/03/2018 05/14/2020 1 1 Encounter Details Date Type Department Care Team (Latest Contact Info) Description 11/03/2018 7:35 AM BILINGUAL CALL CENTER REPRESENTATIVE - 11/03/2018 12:30 PM BILINGUAL CALL CENTER REPRESENTATIVE Hospital Encounter [facility] [address] [phone] Discharge Disposition: Discharge to home or self [...] on file Legal Sex Female 11:26 PM BILINGUAL CALL CENTER REPRESENTATIVE Gender Identity Not on file Sexual [...] mcg tablet Take 112 mcg by mouth application spec before breakfast. 07/21/[address] (PROTONIX) 20 [...] Read Routine (OP Routine) 11/03/2018 1:12 PM BILINGUAL CALL CENTER REPRESENTATIVE Closed nondisplaced fracture of right acromial process with routine healing, subsequent encounter documented in this encounter Results * XR Shoulder Right 2 or More Views (11/03/2018 1:12 PM BILINGUAL CALL CENTER REPRESENTATIVE) Anatomical Region Laterality Modality Upper Extremities, Shoulder Right Digi laurie Radiography Narrative 11/03/2018 1:54 PM BILINGUAL CALL CENTER REPRESENTATIVE XR reviewed, interpreted, and compared with prior views. ??There is evidence of a nondisplaced distal acromion fracture with healing noted, as demonstrated by callus formation and increased opacity. ??Fracture alignment remains acceptable without further displacement. ??No further acute changes noted. ?? Juanita JOHNSON IMG XR PROCEDURES Final Result documented in this encounter Visit Diagnoses Not on filedocumented in this encounter Care Teams Hired Hand Relationship Specialty Start Date End Date Dominic Fernando MD [address] [facility] [address] [place], [place] [id number] PCP - General 08/13/17 documented as of this encounter
--- OUTSIDE RECORDS SUMMARY | 2024-09-04 17:11 | XMS_ITS | Encounter Summary ---
Author Organization [facility] Address [address] [place] [address] Care Team Providers Care Washroom Attendant Name Role Phone Dominic Fernando MD Primary Care Provider [phone] Reason for Referral * (Routine) - Closed Specialty Diagnoses / Procedures Referred By Contac t Referred To Contact Procedures 48 HR Holter Monitor [facility] [address] [facility] [address] [place] [address] Phone: tel: fax: [facility] Referral ID Status Reason Start Date Expiration Date Visits Re quested Visits Authorized [id number] Closed 11/06/2018 05/17/2020 1 1 ING EQUIPMENT INSTALLER Encounter Details Date Type Department Care Team (Late st Contact Info) Description 11/06/2018 Orders Only [facility] [address] [facility] [address] [place] [address] Adam Laboy MD [address] [place] [address] Social History Tobacco Use Types Packs/Day Years Used Date Smoking Tobacco: Every Day Cigarettes Smokeless Tobacco: Current Comments:quitting now, 1 pac k last 2-3 days Alcohol Use Standard Drinks/Week Comments No 0 (1 standard drink = 0.6 oz pur e alcohol) Comments Unknown Sex and Gender Information Value Date Recorded Sex Assigned at Not on file Legal Sex Female 11:26 PM HEATING EQUIPMENT INSTALLER Gender Identity Not on file Sexual Orientation Not on file documented as of this encounter Plan of Treatment Not on file documented as of this encounter Procedures Procedure Name Priority Date/Time Associated Diagnosis Comments HOLTER MONITOR 48 HR Routine 11/03/2018 documented in this encounter Results * 48 HR Holter Monitor (11/03/2018) Anatomical Region Laterality Modality Other us Historical Provider [facility] PHYLLIS ROWE Final Result documented in this encounter Visit Diagnoses Not on filedocumented in this encounter Care Teams Washroom Attendant Relationship Specialty Start Date End Date Dominic Fernando MD [address] [place] [address] PCP - General 08/13/17 documented as of this encounter
--- OUTSIDE RECORDS SUMMARY | 2024-09-04 17:11 | XMS_ITS | Encounter Summary ---
Author Organization [facility] Healthcare Address [address] [place] [address] Care Team Providers Care Vice President Integrated Name Role Phone Dominic Fernando MD Primary Care Provider [phone] Encounter Details Date Type Department Care Team (Late st Contact Info) Description 11/03/2018 Documentation [facility] Physical Therapy [address] [place] [address] Chanel Longoria, BISQUE FINISHER Social History Tobacco Use Types Packs/Day Years Used Date Smoking Tobacco: Every Day Cigarettes Smokeless Tobacco: Current Comments:quitting now, 1 pac k last 2-3 days Alcohol Use Standard Drinks/Week Comments No 0 (1 standard drink = 0.6 oz pur e alcohol) Comments Unknown Sex and Gender Information Value Date Recorded Sex Assigned at Not on file Legal Sex Female 11:26 PM DEAN Gender Identity Not on file Sexual Orientation Not on file documented as of this encounter Progress Notes * Chanel Longoria BISQUE FINISHER - 11/03/2018 1:02 PM CST Gege Vidal 1960 Patient is having a R TKA with Patient lives with SON AND DIL Patient lives in a HOUSE With 2 level(s) Stairs to enter home: 2 Handrails: NONE Other steps: BEDROOM IN BASEMENT 10+2 WITH HANDRAIL ON R SIDE Present function: IND WITH ADLS Pt currently working: NO Equipment: Pt owns W/W, WHEELCHAIR, SCOOTER, CANE,BSC Equipment needed for discharge: NONE Bathroom: ____ tub/shower ___X__ walk in shower grab bars Toilet: ____ higher ____standard _X___lower no difficulty Community access: PT DOES DRIVE Care path and Discharge discussion:: Pt plans on returning home with help of family. Home health care list given and reviewed with patient. _X___yes ____no Home health care agency preference: ANYONE BUT NOT [facility] Out patient therapy choice: PT WOULD LIKE TO RETURN TO PLACE IN [place] Joint replacement education booklet is given. Chanel Longoria PTA documented in this encounter Plan of Treatment Not on file documented as of this encounter Visit Diagnoses Not on filedocumented in this encounter Care Teams Vice President Integrated Relationship Specialty Start Date End Date Dominic Fernando MD [address] [facility] [address] [place] [address] PCP - General 08/13/17 documented as of this encounter
--- OUTSIDE RECORDS SUMMARY | 2024-09-04 17:11 | XMS_ITS | Encounter Summary ---
Author Organization [facility] Address [address] [place] [address] Care Team Providers Care Network Associate Name Role Phone Dominic Fernando MD Primary Care Provider [phone] Reason for Visit * Diagnostic Imaging (Routine) - Closed Specialty Diagnoses / Procedures Referred By Contac t Referred To Contact Diagnoses Pain in both knees, unspecified chronicity Procedures XR Pelvis 1 or 2 Views Kemal Wright MD Phone: tel: fax: Referral ID Status Reason Start Date Expiration Date Visits Re quested Visits Authorized [id number] Closed 07/23/2018 02/01/2020 1 1 Encounter Details Date Type Department Care Team (Latest Contact Info) Description 07/23/2018 11:16 AM PINION SORTER - 07/23/2018 11:59 PM PINION SORTER Hospital Encounter [facility] Medical [facility] Orthopedics and Sports Medicine [address] [place] [phone] Discharge Disposition: Discharge to home or self care Social History Tobacco Use Types Packs/Day Years Used Date Smoking Tobacco: Every Day Smokeless Tobacco: Never Comments Unknown Sex and Gender Information Value Date Recorded Sex Assigned at Not on file Legal Sex Female 11:26 PM PINION SORTER Gender Identity Not on file Sexual Orientation Not on file documented as of this encounter Medications at Time of Discharge cyanocobalamin (Vitamin B-12) 1,000 mcg tabletIndications :Prevention of Vitamin B12 Deficiency Take 1,000 mcg by mouth daily. levothyroxine (SYNTHROID, LEVOTHROID) 112 mcg tablet Take 112 mcg by mouth concrete mixer loader truck mounted before breakfast. 07/21/2018 XARELTO 20 mg tablet [...] Name Priority Date/Time Associated Diagnosis Comments XR PELVIS 1 OR 2 VIEWS Schedule Routine, Read Routine (OP Routine) 07/23/2018 11:27 AM PINION SORTER Pain in both knees, unspecified chronicity documented in this encounter Results * XR Pelvis 1 or 2 Views (07/23/2018 11:27 AM PINION SORTER) Anatomical Region Laterality Modality Body, Pelvis N/A Radiographic Yulisa ging Narrative 07/23/2018 1:28 PM PINION SORTER AP pelvis shows mild degenerative changes bilateral hips no fracture subluxation or dislocation us Kemal Wright MD IMG XR PROCEDURES Final Resu lt documented in this encounter Visit Diagnoses Not on filedocumented in this encounter Care Teams Network Associate Relationship Specialty Start Date End Date Dominic Fernando MD [address] [facility] [address] [place] [address] PCP - General 08/13/17 documented as of this encounter
--- OUTSIDE RECORDS SUMMARY | 2024-09-04 17:12 | XMS_ITS | Encounter Summary ---
Author Organization [facility] Care Team Providers Care Overhead Crane Truck Loader Name Role Phone Unavailable Primary Care Provider Unavailabl e Encounter Details Date Type Department Care Team (Late st Contact Info) Description 03/15/2012 7:36 AM CDT - 03/15/2012 3:40 PM T Hospital Encounter [facility] Daren Garcia MD [address] [facility] [address] [place] [address] Backache Social History Tobacco Use Types Packs/Day Years Used Date Smoking Tobacco: Never Assessed Comments Unknown Sex and Gender Information Value Date Recorded Sex Assigned at Not on file Legal Sex Female 11:26 PM HAND TUFTER Gender Identity Not on file Sexual Orientation Not on file documented as of this encounter Plan of Treatment Not on file documented as of this encounter Visit Diagnoses Diagnosis Backache Unspecified backache documented in this encounter
--- OUTSIDE RECORDS SUMMARY | 2024-09-04 17:12 | XMS_ITS | Encounter Summary ---
Author Organization [facility] Facility Care Team Providers Care Academic Associate Name Role Phone Unavailable Primary Care Provider Unavailabl e Encounter Details Date Type Department Care Team (Late st Contact Info) Description 03/13/2010 9:31 PM CDT - 03/13/2010 10:03 PM T Hospital Encounter [facility] Social History Tobacco Use Types Packs/Day Years Used Date Smoking Tobacco: Never Assessed Comments Unknown Sex and Gender Information Value Date Recorded Sex Assigned at Not on file Legal Sex Female 11:26 PM MOTOR VEHICLE ASSEMBLER Gender Identity Not on file Sexual Orientation Not on file documented as of this encounter Plan of Treatment Not on file documented as of this encounter Visit Diagnoses Not on filedocumented in this encounter
--- OUTSIDE RECORDS SUMMARY | 2024-09-04 17:12 | XMS_ITS | Encounter Summary ---
Author Organization [facility] Healthcare Address [address] [place] [address] Care Team Providers Care Manager Hotel Name Role Phone Miscellaneous, Not In File Primary Care Provider Unavailable Encounter Details Date Type Department Care Team (Late st Contact Info) Description 01/23/2017 8:01 AM CDT - 01/23/2017 10:29 AM CDT Emergency [facility] Emergency Department [address] [place] [address] Jennie Vazquez MD [address] [place] [address] Discharge Disposition: Discharge to home or self care Social History Tobacco Use Types Packs/Day Years Used Date Smoking Tobacco: Never Assessed Comments Unknown Sex and Gender Information Value Date Recorded Sex Assigned at Not on file Legal Sex Female 11:26 PM WEB SUPPORT ENGINEER Gender Identity Not on file Sexual Orientation Not on file documented as of this encounter Discharge Disposition Disposition Code Departure Means Destination Discharge to home or self care documented in this encounter Plan of Treatment Not on file documented as of this encounter Procedures Procedure Name Priority Date/Time Associated Diagnosis Comments XR FOOT 3+ VW Routine 01/23/2017 1:51 PM CDT documented in this encounter Results * XR Foot 3+ Vw (01/23/2017 1:51 PM CDT) Anatomical Region Laterality Modality N/A Radiographic Yulisa ging 01/23/2017 1:51 PM CDT Narrative 01/23/2017 1:51 PM CDT XR Foot Min 3 Views L ??[id number] ??Acc#: ??[id number] DATE OF EXAM: ??Jan 23 2017 ?? EXAM: XR Foot Min 3 Views L ??[id number] ; oblique and lateral views of the left foot and 2 views of the left 4th toe HISTORY: 4th digit pain after fall. FINDINGS: And acute fracture of the 4th middle phalanx is seen. ??The fracture extends into the IP joint.. ??The remaining osseous structures are intact IMPRESSION: 1. ??Acute 4th middle phalanx fracture. Electronically signed by: Jack Rouse M.D. Interpreting Physician: ??JACK ROUSE M.D. ??Read on: ??Jan 23 2017 ?? 8:58A Transcribed by: ??PSC ??On: Jan 23 2017 ??8:56A Approved Electronically by: ??JACK ROUSE M.D. ??on: ??Jan 23 2017 ?? 8:56A Ordering DR: DR JENNIE VAZQUEZ Attending DR: EVA ALEGRIA Attending: ??EVA ALEGRIA Requesting: ??DR JENNIE VAZQUEZ Requesting Fax: ??-- Attending Fax: ??-- Attending ID: ??[id number] Requesting ID: ??[id number] NextGen Order #: ?? Procedure Note Miscellaneous, Not In File / Provider, MD Adam - 02/09/2017 XR Foot Min 3 Views L [id number] Acc#: [id number] DATE OF EXAM: Jan 23 2017 EXAM: XR Foot Min 3 Views L [id number] ; oblique and lateral views of the left foot and 2 views of the left 4th toe HISTORY: 4th digit pain after fall. FINDINGS: And acute fracture of the 4th middle phalanx is seen. The fracture extends into the IP joint.. The remaining osseous structures are intact IMPRESSION: 1. Acute 4th middle phalanx fracture. Electronically signed by: Jack Rouse M.D. Interpreting Physician: JACK ROUSE M.D. Read on: Jan 23 2017 8:58A Transcribed by: PSC On: Jan 23 2017 8:56A Approved Electronically by: JACK ROUSE M.D. on: Jan 23 2017 8:56A Ordering DR: DR JENNIE VAZQUEZ Attending DR: NOTINFILE MISCELLANEOUS Attending: EVA ALEGRIA Requesting: DR JENNIE VAZQUEZ Requesting Fax: -- Attending Fax: -- Attending ID: [id number] Requesting ID: [id number] NextGen Order #: us Not In File Miscellaneous IMG XR PROCEDURES Jennifer l Result documented in this encounter Visit Diagnoses Not on filedocumented in this encounter Care Teams Manager Hotel Relationship Specialty Start Date End Date Miscellaneous, Not In File PCP - General 01/23/1708/12 documented as of this encounter
--- OUTSIDE RECORDS SUMMARY | 2024-09-04 17:12 | XMS_ITS | Encounter Summary ---
Author Organization [facility] Healthcare Address [address] [place] [address] Care Team Providers Care Expeditionary Fighting Vehicle Crewman Name Role Phone Unavailable Primary Care Provider Unavailabl e Encounter Details Date Type Department Care Team (Latest Contact Info) Description 08/08/2014 8:34 AM SUPPLY COORDINATOR - 08/08/2014 12:32 PM SUPPLY COORDINATOR Hospital Encounter [facility] Mily Escobar MD [address] [facility] [place] [address] Sprain of ankle; Sprain and strain of knee and leg; Other and unspecified hyperlipidemia; Tobacco use disorder; Personal history of allergy to penicillin; Personal history of allergy to narcotic agent; Fall Social History Tobacco Use Types Packs/Day Years Used Date Smoking Tobacco: Never Assessed Comments Unknown Sex and Gender Information Value Date Recorded Sex Assigned at Not on file Legal Sex Female 11:26 PM SUPPLY COORDINATOR Gender Identity Not on file Sexual Orientation Not on file documented as of this encounter Last Filed Vital Signs Vital Sign Reading Time Taken Comments Blood Pressure 130/69 08/08/2014 8:48 AM SUPPLY COORDINATOR Pulse 84 08/08/2014 8:48 AM SUPPLY COORDINATOR Temperature 36.4 ??C (97.5 ??F) 08/08/2014 8:48 AM CS T Respiratory Rate - - Oxygen Saturation 94% 08/08/2014 8:48 AM SUPPLY COORDINATOR Inhaled Oxygen Concentration - - Weight 86.2 kg (190 lb) 08/08/2014 8:48 AM SUPPLY COORDINATOR Height 162.6 cm (5' 4 ) 08/08/2014 8:48 AM SUPPLY COORDINATOR Body Mass Index 32.61 08/08/2014 8:48 AM SUPPLY COORDINATOR documented in this encounter Plan of Treatment Not on file documented as of this encounter Procedures Procedure Name Priority Date/Time Associated Diagnosis Comments XR FOOT RIGHT 3 OR MORE VIEWS Routine 08/08/2014 12:00 AM SUPPLY COORDINATOR XR ANKLE RIGHT 3 OR MORE VIEWS Routine 08/08/2014 12:00 AM SUPPLY COORDINATOR XR KNEE RIGHT 1 OR 2 VIEWS Routine 08/08/2014 12:00 AM SUPPLY COORDINATOR documented in this encounter Results * XR Knee Right 1 or 2 Views (08/08/2014 12:00 AM SUPPLY COORDINATOR) Anatomical Region Laterality Modality Lower Extremities, Knee Right [facility] 08/08/2014 Impressions 08/08/2014 11:27 AM SUPPLY COORDINATOR ?? 1. ??No acute fracture or malalignment. THIS IS AN ELECTRONICALLY VERIFIED REPORT 08/08/2014 11:24 AM: ??Kemal Otoole D.O. Kemla Otoole D.O. :as 11:24 AM 11:24 AM [facility] [EOD] Narrative 08/08/2014 11:27 AM SUPPLY COORDINATOR EXAMINATION: ??AP and lateral Right knee. HISTORY: ??Injury. TECHNIQUE: ??N/A COMPARISON: ??None. FINDINGS: ??There is no fracture or dislocation. ??No joint effusion or soft tissue abnormality is observed. Procedure Note Provider, MD Adam - 01/31/2021 EXAMINATION: AP and lateral Right knee. HISTORY: Injury. TECHNIQUE: N/A COMPARISON: None. FINDINGS: There is no fracture or dislocation. No joint effusion or soft tissue abnormality is observed. IMPRESSION: 1. No acute fracture or malalignment. THIS IS AN ELECTRONICALLY VERIFIED REPORT 08/08/2014 11:24 AM: Kemal Otoole D.O. Kemal Otoole D.O. :as 11:24 AM 11:24 AM [facility] [EOD] us Janeen Kendall LIMNOLOGIST IMG XR PROCEDURES Final Resul t * XR Ankle Right 3 or More Views (08/08/2014 12:00 AM SUPPLY COORDINATOR) Anatomical Region Laterality Modality Lower Extremities, Ankle Right Radiogr [facility] Imaging 08/08/2014 Impressions 08/08/2014 11:28 AM SUPPLY COORDINATOR ?? 1. ??No acute fracture or malalignment. THIS IS AN ELECTRONICALLY VERIFIED REPORT 08/08/2014 11:24 AM: ??Kemal Otoole D.O. Kemal Otoole D.O. :as 11:24 AM 11:24 AM [facility] [EOD] Narrative 08/08/2014 11:28 AM SUPPLY COORDINATOR EXAMINATION: ??Three views ??Rightankle. HISTORY: ??Injury. TECHNIQUE: ??N/A COMPARISON: ??None. FINDINGS: ??There is no fracture or dislocation. ??The ankle mortise is well seated without widening of the medial or lateral clear spaces. ??Soft tissues are without focal abnormality. Procedure Note Provider, MD Adam - 01/31/2021 EXAMINATION: Three views Rightankle. HISTORY: Injury. TECHNIQUE: N/A COMPARISON: None. FINDINGS: There is no fracture or dislocation. The ankle mortise is well seated without widening of the medial or lateral clear spaces. Softtissues are without focal abnormality. IMPRESSION: 1. No acute fracture or malalignment. THIS IS AN ELECTRONICALLY VERIFIED REPORT 08/08/2014 11:24 AM: Kemal Otoole D.O. Kemal Otoole D.O. :as 11:24 AM 11:24 AM [facility] [EOD] us Janeen Kendall LIMNOLOGIST IMG XR PROCEDURES Final Resul t * XR Foot Right 3 or More Views (08/08/2014 12:00 AM SUPPLY COORDINATOR) Anatomical Region Laterality Modality Lower Extremities, Foot Right [facility] 08/08/2014 Impressions 08/08/2014 11:28 AM SUPPLY COORDINATOR ?? 1. No acute fracture or malalignment. THIS IS AN ELECTRONICALLY VERIFIED REPORT 08/08/2014 11:25 AM: ??Kemal Otoole D.O. Kemal Otoole D.O. :as 11:25 AM 11:25 AM [facility] [EOD] Narrative 08/08/2014 11:28 AM SUPPLY COORDINATOR EXAMINATION: ??Three views of the Right foot. HISTORY: ??Injury. TECHNIQUE: ??N/A COMPARISON: ??None. FINDINGS: ??Midfoot alignment is normal. ??There is no fracture or dislocation. ?? Joint spaces and soft tissues are unremarkable. Procedure Note Provider, MD Adam - 01/31/2021 EXAMINATION: Three views of the Right foot. HISTORY: Injury. TECHNIQUE: N/A COMPARISON: None. FINDINGS: Midfoot alignment is normal. There is no fracture ordislocation. Joint spaces and soft tissues are unremarkable. IMPRESSION: 1. No acute fracture or malalignment. THIS IS AN ELECTRONICALLY VERIFIED REPORT 08/08/2014 11:25 AM: Kemal Otoole D.O. Kemal Otoole D.O. :as 11:25 AM 11:25 AM [facility] [EOD] us Janeen Kendall NP IMG XR PROCEDURES Final Resul t documented in this encounter Visit Diagnoses Diagnosis Sprain of ankle Unspecified site of ankle sprain and strain Sprain and strain of knee and leg Other and unspecified hyperlipidemia Tobacco use disorder Personal history of allergy to penicillin Personal history of allergy to narcotic agent Fall Unspecified fall documented in this encounter
--- OUTSIDE RECORDS SUMMARY | 2024-09-04 17:12 | XMS_ITS | Encounter Summary ---
Author Organization [facility] Facility Care Team Providers Care Wellness Ambassador Name Role Phone Unavailable Primary Care Provider Unavailabl e Encounter Details Date Type Department Care Team (Late st Contact Info) Description 05/06/2007 - 05/06/2007 11:59 PM CDT Hospital Encounter [facility] Dominic Marcial MD [address] [facility] [address] [place] [address] Social History Tobacco Use Types Packs/Day Years Used Date Smoking Tobacco: Never Assessed Comments Unknown Sex and Gender Information Value Date Recorded Sex Assigned at Not on file Legal Sex Female 11:26 PM CORONARY CLINICAL SPECIALIST Gender Identity Not on file Sexual Orientation Not on file documented as of this encounter Plan of Treatment Not on file documented as of this encounter Visit Diagnoses Not on filedocumented in this encounter
--- OUTSIDE RECORDS SUMMARY | 2024-09-04 17:14 | XMS_ITS | Encounter Summary ---
Author Organization [facility] Address [address] [place] [address] Care Team Providers Care Nib Adjuster Name Role Phone Eris Vu MD Primary Care Provider [phone] Encounter Details Date Type Department Care Team (Late st Contact Info) Description 05/06/2024 External Device Data [place] ABSTRACTION Provider, Abstract NO ADDRESS ON FILE Social History Tobacco Use Types Packs/Day Years Used Date Smoking Tobacco: Every Day Cigarettes 1 38 Smokeless Tobacco: Never Alcohol Use Standard Drinks/Week Comments No 0 (1 standard drink = 0.6 oz pur e alcohol) Sex and Gender Information Value Date Recorded Sex Assigned at Not on file Gender Identity Not on file Sexual Orientation Not on file documented as of this encounter Plan of Treatment Upcoming Encounters Date Type Department Care Team (Late st Contact Info) Description 12/04/2024 11:30 AM CDT Office Visit [facility] Oncology and Hematology - [place] [address] [place] [address] [facility] [address] [place] [address] Chris Owens MD [address] [place] [address] documented as of this encounter Visit Diagnoses Not on filedocumented in this encounter Care Teams Nib Adjuster Relationship Specialty Start Date End Date Eris Vu MD PCP - General Family Practice 02/21/23 documented as of this encounter
--- OUTSIDE RECORDS SUMMARY | 2024-09-04 17:14 | XMS_ITS | Encounter Summary ---
Author Organization [facility] Address [address] [place] [address] Care Team Providers Care Dairy Bar Manager Name Role Phone Eris Vu MD Primary Care Provider [phone] Encounter Details Date Type Department Care Team [...] Description 12/04/2024 11:30 AM CDT Office Visit [facility] Oncology and Hematology - [place] [address] [place] [address] [facility] [address] [place] [address] Chris Owens MD [address] [place] [address] documented as of this encounter Visit Diagnoses Not on filedocumented in this encounter Care Teams Dairy Bar Manager Relationship Specialty Start Date End Date Eris Vu MD PCP - General Family Practice 02/21/23 documented as of this encounter
--- OUTSIDE RECORDS SUMMARY | 2024-09-04 17:14 | XMS_ITS | Encounter Summary ---
Author Organization [facility] [employer] Address [address] [place] [address] Care Team Providers Care Plumber Gasfitter Name Role Phone Eris Vu MD Primary Care Provider +1 [phone] Encounter Details Date Type Department Care Team (Late Contact Info) Description 08/25/2024 Orders Only [facility] Oncology [facility] [address] [place] [address] Chris Owens MD [address] [place], [place] [address] [address] [place] [address] Social History Tobacco Use Types Packs/Day Years Used Date Smoking Tobacco: Former Cigarettes 1 38 Q uit: 03/16/2024 Smokeless Tobacco: Never Alcohol Use Standard Drinks/Week [...] Description 12/04/2024 11:30 AM CDT Office Visit [facility] Oncology and Hematology [facility] [address] [place] [address] Chris Owens MD [address] [place] [address] [employer] [address] [place] [address] documented as of this encounter Procedures Procedure Name Priority Date/Time Associated Diagnosis Comments CT CHEST WO CONTRAST Routine 08/25/2024 12:41 PM MANUFACTURING MECHANIC documented in this encounter Results * CT CHEST WO CONTRAST (08/25/2024 12:41 PM MANUFACTURING MECHANIC) Anatomical Region Laterality Modality Chest Other Chris Owens MD CT ORDERABLES documented in this encounter Visit Diagnoses Not on filedocumented in this encounter Care Teams Plumber Gasfitter Relationship Specialty Start Date End Date Eris Vu MD PCP - General Family Practice 02/21/23 documented as of this encounter
--- OUTSIDE RECORDS SUMMARY | 2024-09-04 17:14 | XMS_ITS | Encounter Summary ---
Author Organization [facility] Address [address] [place] [address] Care Team Providers Care Scheduling Specialist Name Role Phone Eris Vu MD Primary Care Provider +1 [phone] Encounter Details Date Type Department Care Team (Late st Contact Info) Description 07/20/2024 External Device Data STL ABSTRACTION Provider, Abstract [...] Description 12/04/2024 11:30 AM CDT Office Visit [facility] Oncology and Hematology - [place] [address] [place] [address] [address] [place] [address] [place] [address] [place] [address] [address] [place] [address] documented as of this encounter Visit Diagnoses Not on filedocumented in this encounter Care Teams Scheduling Specialist Relationship Specialty Start Date End Date Eris Vu MD PCP - General Family Practice 02/21/23 documented as of this encounter
--- OUTSIDE RECORDS SUMMARY | 2024-09-04 17:14 | XMS_ITS | Clinical Summary ---
Author Organization [facility] Address [address] [place] [address] Care Team Providers Care Application Support Analyst Name Role Phone Eris Vu MD Primary Care Provider [phone] [phone] Allergies Active Allergy Reactions Criticality Noted Date Comments Adhesive Tape-Silicones Other (See Comments) Medium 08/19/2014 Blisters Codeine Shortness of Breath/Wheezing High 08/19/2014 Mxbzisotg-F-Wzzvtmv-Se jun-Brom Other (See Comments) Low 08/19/2014 Alcohol- makes her break out in blisters Latex Rash,Swelling,Hives High 08/19/2014 Morphine Hypotension Medium 11/15/2017 Penicillins Shortness of Breath/Wheezing High 08/19/2014 Vancomycin Other (See Comments) High 08/19/2014 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 Active promethazine (PHENERGAN) 25 mg tablet Take 25 mg by mouth every 6 hours as needed . 03/06/2018 Active ondansetron (ZOFRAN) 4 mg Tablet Take 4 mg by mouth every 8 hours as needed for Nausea/Emesis . Active Cetirizine (ZyrTEC) 10 mg Capsule Take 10 mg by mouth 1 time daily as needed . Active aspirin (ECOTRIN EC) 81 mg Tablet, Delayed Release (E.C.) Take 1 Tablet (81 mg) by mouth daily. 90 Tablet 3 06/09/2018 Active cholecalciferol 50,000 unit CapsuleIndication s:pt taking once a month Take by mouth. Active pantoprazole (PROTONIX) 20 mg Tablet, Delayed Release (E.C.) Take 20 mg by mouth daily. Active cyclobenzaprine (FLEXERIL) 5 mg Tablet TAKE 1 TABLET BY MOUTH TWICE DAILY NEEDED FOR MUSCLE SPASM 07/21/2020 Active Bystolic 5 mg Tablet 07/24/2020 Active atorvastatin (LIPITOR) 40 mg tablet TAKE 1 TABLET BY MOUTH ONCE DAILY 06/09/2020 Active Euthyrox 75 mcg tablet TAKE 1 TABLET BY MOUTH ONCE DAILY 06/15/2020 Active folic acid (FOLVITE) 1 mg tablet Take 1 tablet by mouth once daily 90 Tablet 1 05/12/2024 Active Xarelto 20 mg Tablet Take 1 tablet by mouth once daily 90 Tablet 08/20/2024 Active Xarelto 20 mg Tablet Take 1 tablet by mouth once daily 90 Tablet 05/25/2024 08/20/2024 Discontinued Active Problems Problem Noted Date Diagnosed Date 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 01/06/2020 Diverticulitis 03/24/2018 Secondary hypercoagulable state 11/15/2017 Tobacco use 11/15/2017 Encounters Date Type Department Care Team Description 08/25/2024 Orders Only [facility] Oncology and Hematology - [place] [address] [place] [address] Chris Owens MD 08/20/2024 Refill [facility] Oncology and Hematology - [place] [address] [place] [address] Chris Owens MD 07/20/2024 External Device Data STL ABSTRACTION Provider, Abstract 06/16/2024 External Device Data STL ABSTRACTION Provider, Abstract from Last 3 Months Family History Medical History Relation Name Comments Unknown Brother Diabetes Father Heart Disease Father Diabetes Mother Diabetes Sister 1 Liver Disease Sister 1 Diabetes Sister 2 Other Sister 2 Heart Disease Sister 3 No Known Problems Sister 4 Relation Name Status Comments Brother Alive Father Mother Alive Sister 1 Sister 2 Sister 3 Alive Sister 4 Alive Social History Tobacco Use Types Packs/Day Years Used Date Smoking Tobacco: Former Cigarettes 1 38 Q uit: 03/16/2024 Smokeless Tobacco: Never Tobacco Cessation:Counseling Given: Not Answered Alcohol Use Standard Drinks/Week Comments No 0 (1 standard drink = 0.6 oz pur e alcohol) Sex and Gender Information Value Date Recorded Sex Assigned at Not on file Gender Identity Not on file Sexual Orientation Not on file Last Filed Vital Signs Vital Sign Reading Time Taken Comments Blood Pressure 137/78 06/04/2024 2:13 PM CDT Pulse 99 06/04/2024 2:13 PM CDT Temperature 36.7 ??C (98 ??F) 06/04/2024 2:13 PM CDT Respiratory Rate 18 06/04/2024 2:13 PM CDT Oxygen Saturation 94% 06/04/2024 2:13 PM CDT Inhaled Oxygen Concentration - - Weight 83.9 kg (185 lb) 06/04/2024 2:13 PM CDT Height 162.6 cm (5' 4 ) 02/23/2022 11:52 AM CDT Body Mass Index 31.76 02/23/2022 11:52 AM CDT Plan of Treatment Upcoming Encounters Date Type Department Care Team (Late st Contact Info) Description 12/04/2024 11:30 AM CDT Office Visit [facility] Oncology and Hematology [facility] [address] [facility] [address] [place] [address] Chris Owens MD [address] [facility] [address] [place] [address] Health Maintenance Due Date Last Done Comments Pre-Diabetes and Diabetes Screening 1960 DTAP/TDAP/TD VACCINES (1 - Tdap) 1980 FIT-DNA Q 3 years 2006 FIT/FOBT Q 1 year 2006 Flex Sig/CT Colonography Q 5 years 2006 ZOSTER VACCINE (1 of 2) 2011 INFLUENZA VACCINE (#1) 2024 CERVICAL CANCER SCREENING 12/14/2024 12/14/2021, BREAST CANCER SCREENING 02/16/2025 02/17/20 24, 09/03/2023, 08/07/2023, Additional history exists COLORECTAL SCREENING 10/28/2030 10/28/2020, 05/31/20 20 Colorectal Cancer Screening 10/28/2030 RSV VACCINE (60+ or ) (1 - 1-dose 75+ series) 2036 Lung Cancer Screening Discontinued 07/15/2019 PNEUMOCOCCAL VACCINE 0-64 YEARS Aged Out No longer eligible based on patient's age to complete this topic Procedures Procedure Name Priority Date/Time Associated Diagnosis Comments CT CHEST WO CONTRAST Routine 08/25/2024 12:41 PM SURVEY QUESTIONNAIRE DESIGNER MAMMO BILAT DIAGNOSTIC Routine 02/17/2024 1:[address] LUNG SCREENING (LDCT BASELINE OR ANNUAL) Routine 07/15/2019 Encounter for screening for lung cancer from Last 3 Months or Most Recently Relevant to Health Maintenance Results * CT CHEST WO CONTRAST (08/25/2024 12:41 PM SURVEY QUESTIONNAIRE DESIGNER) Anatomical Region Laterality Modality Chest Other Chris Owens MD CT ORDERABLES * MAMMO BILAT DIAGNOSTIC (02/17/2024 1:15 PM CDT) Anatomical Region Laterality Modality Breast Bilateral Other Chris Owens MD MAMMO ORDERABLES * CT LUNG SCREENING (07/15/2019) Anatomical Region Laterality Modality Chest Other Chris Owens MD CT ORDERABLES from Last 3 Months or Most Recently Relevant to Health Maintenance Care Teams Application Support Analyst Relationship Specialty Start Date End Date Eris Vu MD PCP - General Family Practice 02/21/23
--- OUTSIDE RECORDS SUMMARY | 2024-09-04 17:14 | XMS_ITS | Encounter Summary ---
Author Organization [facility] [employer] [facility] Address [address] [place] [address] Care Team Providers Care District Plant Engineer Name Role Phone Eris Vu MD Primary Care Provider [phone] [phone] Reason for Referral * CT Scan (Routine) - Closed Specialty Diagnoses / Procedures Referred By Evan t Referred To Contact Diagnoses Encounter for screening for lung cancer Personal history of nicotine dependence Procedures CT LUNG SCREENING (F/U DIAGNOSTIC) W CONTRAST Chris Owens MD [address] [place] [address] [place] [address] Referral ID Status Reason Start Date Expiration Date V isits Requested Visits Authorized [id number] Closed [facility] CTS 06/04/2024 07/05/2025 1 1 Reason for Visit * Reason Comments Follow Up Encounter Details Date Type Department Care Team (Late st Contact Info) Description 06/04/2024 2:45 PM CDT Office Visit [facility] Oncology and Hematology [address] [place] [address] Chris Owens MD [address] [place] [address] Chronic anemia (Primary Dx); Encounter for screening for lung cancer Social History Tobacco Use Types Packs/Day Years [...] (185 lb) 06/04/2024 2:13 PM CDT Height - - Body Mass Index 31.76 02/23/2022 11:52 AM CDT documented in this encounter Progress Notes * Chris Owens MD - 06/04/2024 2:50 PM CDT HEMATOLOGY / ONCOLOGY PROGRESS NOTE Patient Identification: Name: Gege Vidal Age: 64 y.o. 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 In late 20s DVT involving left arm status post fall. DVT involving right lower extremity 10 years later. History of stroke in February 01, 2018. History of TIA September 2018) CURRENT TREATMENT Xarelto 20 mg daily TREATMENT HISTORY Xarelto since February 01, 2018 when diagnosed with a stroke SUBJECTIVE Patient came to the office for follow-up visit. She denies any excessive tiredness and fatigue. Denies any chest pain and shortness of breath. No bleeding and bruising. No other new complaints. Review of system Constitutional: denies fevers, sweats, denies any excessive tiredness and fatigue, weight and appetite stable HEENT: denies sinus congestion, hearing or vision problems Respiratory: denies cough, dyspnea, wheeze Cardiovascular: denies chest pain, exertional chest pressure/discomfort, nausea, syncope, shortnessof breath GI: denies constipation, diarrhea, dsyphagia, reflux symptoms, vomiting, melena : denies dysuria, frequency, incontinence, urgency Integumentary system: no lymphadenopathy, sweats, flushing Musculoskeletal: denies: myalgia, arthralgia Neurological: denies blurry or disturbed vision, numbness/weakness, dizziness Skin: No lumps, denies any rash 12 point review of system was reviewed Objective: Vital signs in last 24 hours: As per nursing note Exam: General appearance: alert, cooperative, no distress, appears stated age Head: normocephalic, without obvious abnormality, atraumatic Eyes: conjunctivae/corneas clear, EOM's intact Ears: normal external ear canals AU Nose: Nares normal. Septum midline. Mucosa normal. No drainage or sinus tenderness Throat: Lips, mucosa, and tongue normal. Teeth and gums normal Neck: supple, symmetrical, trachea midline. Lungs: clear to auscultation bilaterally Heart: regular rate and rhythm, S1, S2 normal, no murmur, click, rub or gallop Abdomen: soft, non-tender. Bowel sounds normal. No masses, No organomegaly Extremities: extremities normal, atraumatic, no cyanosis or edema Skin: Skin color, texture, turgor normal. Lymph nodes: No lymphadenopathy Neuro: No obvious focal deficit Exam as above PATH LABS Labs from June 2019 showed WBC 6.1 hemoglobin 13.4 platelet 266,000 creatinine 1.0. Labs from January 05 showed WBC 6.3 hemoglobin 14 platelet 298,000. Labs from August 01 showed creatinine 1.1 WBC 6.9 hemoglobin 13 platelet 258,000 Labs from January 30 showed WBC 11.8 hemoglobin 14.4 platelet 349,000 creatinine 1.0 Labs from February 23 showed WBC 6.8 hemoglobin 13.4 platelet 249,000 creatinine 1.0 Labs from February 21 showed WBC 6.9 hemoglobin 13.4 platelet 302,000 creatinine 1.1 Labs from February 23 showed WBC 6.5 hemoglobin 11.7 platelet 365,000 creatinine 1.1 Labs from June 03 showed iron 54 saturation 14 ferritin 15 B12 319 hemoglobin 13.5 Assessment: Plan: Patient Active Problem List Diagnosis Date Noted Chronic embolism and thrombosis of unspecified deep veins of right lower extremity 01/06/2020 Diverticulitis 03/24/2018 Secondary hypercoagulable state 11/15/2017 Tobacco use 11/15/2017 Hypercoagulable state with recurrent DVT, stroke and TIA. Previous work-up showed elevated homocystine level and positive lupus anticoagulant. Left lower extremity Doppler study done on July 26, 2020 showed no evidence of DVT. There is a hypoechoic subcutaneous fat in the left inguinal region consistent with inflammation. There is no evidence of DVT on my examination. She will continue prophylactic doses of Xarelto. Anemia. Hemoglobin has improved. Iron and B12 remains slightly low. We will increase iron to twice a day and B12 to 1 mg twice a day. Lung cancer screening. Patient has quit smoking. Will repeat CT chest for lung cancer screening in 3 months. Breast cancer screening. Mammogram done in February 2024 showed no evidence of malignancy. Repeat mammogram will be done in February 2025. 06/04/2024 Chris Owens MD documented in this encounter Plan of Treatment Upcoming Encounters Date Type Department Care Team (Late st Contact Info) Description 12/04/2024 11:30 AM CDT Office Visit [facility] Oncology and Hematology [facility] [address] [facility] [address] [place] [address] Chris Owens MD [address] [facility] [address] [place] [address] Scheduled Orders Name Type Priority Associated Diagnoses Orde r Schedule CT LUNG SCREENING (F/U DIAGNOSTIC) W CONTRAST Imaging Routine Encounter for screening for lung cancer Expected: 09/03/2024, Expires: 06/04/2025 CBC WITHOUT DIFFERENTIAL Lab Stat Chronic anemia Expected: 08/27/2024, Expires: 06/04/2025 FERRITIN Lab Routine Chronic anemia Expected: 08/27/2024, Expires: 06/04/2025 IRON, TIBC, AND PERCENT SATURATION Lab Routine Chronic anemia Expected: 08/27/2024, Expires: 06/04/2025 VITAMIN B12 AND FOLATE Lab Routine Chronic anemia Expected: 08/27/2024, Expires: 06/04/2025 documented as of this encounter Visit Diagnoses Diagnosis Chronic anemia- Primary Anemia, unspecified Encounter for screening for lung cancer documented in this encounter Care Teams District Plant Engineer Relationship Specialty Start Date End Date Eris Vu MD PCP - General Family Practice 02/21/23 documented as of this encounter
--- OUTSIDE RECORDS SUMMARY | 2024-09-04 17:14 | XMS_ITS | Encounter Summary ---
Author Organization [facility] Address [address] [place] [address] Care Team Providers Care Pump And Still Operator Name Role Phone Eris Vu MD Primary Care Provider [phone] [phone] Encounter Details Date Type Department Care Team (Late st Contact Info) Description 06/16/2024 External Device Data STL ABSTRACTION Provider, [...] 12/04/2024 11:30 AM CDT Office Visit [facility] Oncology and Hematology - [place] [address] [place] [address] [address] [place] [address] [place] [address] [place] [address] [address] [place] [address] documented as of this encounter Visit Diagnoses Not on filedocumented in this encounter Care Teams Pump And Still Operator Relationship Specialty Start Date End Date Eris Vu MD PCP - General Family Practice 02/21/23 documented as of this encounter
--- OUTSIDE RECORDS SUMMARY | 2024-09-04 17:14 | XMS_ITS | Encounter Summary ---
Author Organization [facility] [employer] [facility] Address [address] [place] [address] Care Team Providers Care Epic Application Coordinator Name Role Phone Eris Vu MD Primary Care Provider [phone] [phone] Reason for Visit * Reason Comments Med Refill Encounter Details Date Type Department Care Team ([facility] Contact Info) Description 05/23/2024 Refill [facility] Oncology and Hematology - [place] [address] [place] [address] Chris Owens MD [facility] [address] [place] [address] Social History Tobacco Use Types Packs/Day [...] Upcoming Encounters Date Type Department Care Team ([facility] Contact Info) Description 12/04/2024 11:30 AM CDT Office Visit [facility] Oncology and Hematology - [place] [address] [place] [address] Chris Owens MD [facility] [address] [place] [address] documented as of this encounter Visit Diagnoses Not on filedocumented in this encounter Care Teams Epic Application Coordinator Relationship Specialty Start Date End Date Eris Vu MD PCP - General Family Practice 02/21/23 documented as of this encounter
--- OUTSIDE RECORDS SUMMARY | 2024-09-04 17:14 | XMS_ITS | Encounter Summary ---
Author Organization [facility] Address [address] [place] [address] Care Team Providers Care Compounding And Finishing Supervisor Name Role Phone Eris Vu MD Primary Care Provider [phone] [phone] Encounter Details Date Type Department Care Team (Late st Contact Info) Description 03/31/2024 External Device Data STL ABSTRACTION Provider, Abstract [...] Description 12/04/2024 11:30 AM CDT Office Visit [facility] Oncology and Hematology - [place] [address] [place] [address] [facility] [address] [place] [address] Chris Owens MD [address] [facility] [address] [place] [address] documented as of this encounter Visit Diagnoses Not on filedocumented in this encounter Care Teams Compounding And Finishing Supervisor Relationship Specialty Start Date End Date Eris Vu MD PCP - General Family Practice 02/21/23 documented as of this encounter
--- OUTSIDE RECORDS SUMMARY | 2024-09-04 17:14 | XMS_ITS | Encounter Summary ---
Author Organization [facility] [employer] [facility] Address [address] [place] [address] Care Team Providers Care Machine Made Shoe Unit Worker Name Role Phone Eris Vu MD Primary Care Provider [phone] [phone] Reason for Visit * Reason Comments Med Refill Encounter Details Date Type Department Care Team ([facility] Contact Info) Description 08/20/2024 Refill [facility] Oncology and Hematology [place] [address] [place] [address] Chris Owens MD [facility] [employer] [address] [place] [address] Social History Tobacco Use Types Packs/Day [...] Encounters Date Type Department Care Team (Late Contact Info) Description 12/04/2024 11:30 AM CDT Office Visit [facility] [address] [place] [address] Chris Owens MD [facility] [employer] [address] [place] [address] documented as of this encounter Visit Diagnoses Not on filedocumented in this encounter Care Teams Machine Made Shoe Unit Worker Relationship Specialty Start Date End Date Eris Vu MD PCP - General Family Practice 02/21/23 documented as of this encounter
--- OUTSIDE RECORDS SUMMARY | 2024-09-04 17:14 | XMS_ITS | Encounter Summary ---
Author Organization [facility] Address [address] [place] [address] Care Team Providers Care Luggage Repairer Name Role Phone Eris Vu MD Primary Care Provider [phone] [phone] Encounter Details Date Type Department Care Team (Late st Contact Info) Description 03/17/2024 External Device Data STL ABSTRACTION Provider, Abstract [...] [facility] - [place] [address] [place] [address] [facility] [address] [place] [address] Chris Owens MD [address] [facility] [address] [place] [address] documented as of this encounter Visit Diagnoses Not on filedocumented in this encounter Care Teams Luggage Repairer Relationship Specialty Start Date End Date Eris Vu MD PCP - General Family Practice 02/21/23 documented as of this encounter
--- OUTSIDE RECORDS SUMMARY | 2024-09-04 17:14 | XMS_ITS | Encounter Summary ---
Author Organization [facility] Address [address] [place] [address] Care Team Providers Care Bark Scaler Name Role Phone Eris Vu MD Primary Care Provider [phone] [phone] Encounter Details Date Type Department Care Team [...] Description 12/04/2024 11:30 AM CDT Office Visit [facility] Oncology and Hematology - [place] [address] [place] [address] [facility] [address] [place] [address] Chris Owens MD [address] [facility] [address] [place] [address] documented as of this encounter Visit Diagnoses Not on filedocumented in this encounter Care Teams Bark Scaler Relationship Specialty Start Date End Date Eris Vu MD PCP - General Family Practice 02/21/23 documented as of this encounter
--- OUTSIDE RECORDS SUMMARY | 2024-09-04 17:14 | XMS_ITS | Encounter Summary ---
Author Organization [facility] [employer] [facility] Address [address] [place] [address] Care Team Providers Care Structural Biologist Name Role Phone Eris Vu MD Primary Care Provider [phone] [phone] Reason for Visit * Reason Comments Med Refill Encounter Details Date Type Department Care Team ([facility] Contact Info) Description 05/12/2024 Refill [facility] Oncology and Hematology - [place] [address] [place] [address] Chris Owens MD [facility] [employer] [address] [place] [address] Social History Tobacco Use Types Packs/Day [...] Upcoming Encounters Date Type Department Care Team ([facility] Contact Info) Description 12/04/2024 11:30 AM CDT Office Visit [facility] Oncology and Hematology - [place] [address] [place] [address] Chris Owens MD [facility] [employer] [address] [place] [address] documented as of this encounter Visit Diagnoses Not on filedocumented in this encounter Care Teams Structural Biologist Relationship Specialty Start Date End Date Eris Vu MD PCP - General Family Practice 02/21/23 documented as of this encounter
--- OUTSIDE RECORDS SUMMARY | 2024-09-04 17:14 | XMS_ITS | Encounter Summary ---
Author Organization [facility] [employer] [facility] Address [address] [place] [address] Care Team Providers Care Data Management Associate Name Role Phone Eris Vu MD Primary Care Provider [phone] Encounter Details Date Type Department Care Team (Late Contact Info) Description 06/03/2024 Orders Only [facility] Oncology and Hematology [facility] [address] [place] [address] Chris Owens MD [address] [place] [address] [employer] [address] [address] Social History Tobacco Use Types Packs/Day [...] Description 12/04/2024 11:30 AM CDT Office Visit [facility] Oncology and Hematology [facility] [address] [place] [address] Chris Owens MD [address] [place] [address] [employer] [address] [address] documented as of this encounter Procedures Procedure Name Priority Date/Time Associated Diagnosis Comments CBC WITH DIFFERENTIAL Routine 06/03/2024 4:14 PM CDT documented in this encounter Results * CBC WITH DIFFERENTIAL (06/03/2024 4:14 PM CDT) Blood Chris Owens MD HEMATOLOGY ORDERABLE S documented in this encounter Visit Diagnoses Not on filedocumented in this encounter Care Teams Data Management Associate Relationship Specialty Start Date End Date Eris Vu MD PCP - General Family Practice 02/21/23 documented as of this encounter
--- OUTSIDE RECORDS SUMMARY | 2024-09-04 17:14 | XMS_ITS | Encounter Summary ---
Author Organization [facility] Address [address] [place] [address] Care Team Providers Care Ncr Operator Name Role Phone Eris Vu MD Primary Care Provider [phone] Encounter Details Date Type Department Care Team (Late st Contact Info) Description 04/21/2024 External Device Data STL ABSTRACTION Provider, Abstract [...] Description 12/04/2024 11:30 AM CDT Office Visit [facility] Oncology and Hematology - [place] [address] [place] [address] [facility] [address] [place] [address] Chris Owens MD [address] [facility] [address] [place] [address] documented as of this encounter Visit Diagnoses Not on filedocumented in this encounter Care Teams Ncr Operator Relationship Specialty Start Date End Date Eris Vu MD PCP - General Family Practice 02/21/23 documented as of this encounter
--- OUTSIDE RECORDS SUMMARY | 2024-09-04 17:15 | XMS_ITS | Encounter Summary ---
Author Organization [facility] [employer] [facility] Address [address] [place] [address] Care Team Providers Care Forest Fire Management Officer Name Role Phone Boris Mcnair DO Primary Care Provider [phone] Reason for Visit * Reason Comments Medication Refill Encounter Details Date Type Department Care Team ([facility] Contact Info) Description 03/15/2021 Refill [facility] Oncology and Hematology - [place] [address] [place] [address] Chris Owens MD [facility] [employer] [address] [place] [address] Social History Tobacco Use Types Packs/Day [...] Encounters Date Type Department Care Team ([facility] Contact Info) Description 12/04/2024 11:30 AM CDT Office Visit [facility] Oncology and Hematology - [place] [address] [place] [address] Chris Owens MD [facility] [employer] [address] [place] [address] documented as of this encounter Visit Diagnoses Not on filedocumented in this encounter Care Teams Forest Fire Management Officer Relationship Specialty Start Date End Date Boris Mcnair DO [address] [facility] 162 [facility] [address] [place] [address] PCP - General Internal Medicine 01/06/20 02/20/23 documented as of this encounter
--- OUTSIDE RECORDS SUMMARY | 2024-09-04 17:15 | XMS_ITS | Encounter Summary ---
Author Organization [facility] [employer] [facility] Address [address] [place] [address] Care Team Providers Care Acetylene Burner Name Role Phone Boris Mcnair DO Primary Care Provider [phone] Reason for Visit * Reason Comments Follow Up Positive Colon Cance r Screening Encounter Details Date Type Department Care Team (Late st Contact Info) Description 08/25/2020 3:00 PM VENDING MACHINE HOST/HOSTESS Office Visit [facility] Oncology and Hematology - [place] [address] [facility] [address] [place] [address] Chris Owens MD [address] [facility] [address] [place] [address] Chronic embolism and thrombosis of unspecified deep veins of right lower extremity (Primary Dx) Social History Tobacco Use Types Packs/Day Years Used Date Smoking Tobacco: Every Day Cigarettes 1 38 Smokeless Tobacco: Never Alcohol Use Standard Drinks/Week Comments No 0 (1 standard drink = 0.6 oz pur e alcohol) Sex and Gender Information Value Date Recorded Sex Assigned at Not on file Gender Identity Not on file Sexual Orientation Not on file COVID-19 Exposure Response Date Recorded In the last month, have you been in contact with someone who was confirmed or suspected to have Coronavirus / COVID-19? No / Unsure 08/25/2020 2:09 PM VENDING MACHINE HOST/HOSTESS documented as of this encounter Last Filed Vital Signs Vital Sign Reading Time Taken Comments Blood Pressure 120/76 08/25/2020 3:03 PM VENDING MACHINE HOST/HOSTESS Pulse 77 08/25/2020 3:03 PM VENDING MACHINE HOST/HOSTESS Temperature 36.6 ??C (97.9 ??F) 08/25/2020 3:03 PM CS T Respiratory Rate - - Oxygen Saturation 98% 08/25/2020 3:03 PM VENDING MACHINE HOST/HOSTESS Inhaled Oxygen Concentration - - Weight 86.2 kg (190 lb) 08/25/2020 3:03 PM VENDING MACHINE HOST/HOSTESS Height 162.6 cm (5' 4 ) 08/25/2020 3:03 PM VENDING MACHINE HOST/HOSTESS Body Mass Index 32.61 08/25/2020 3:03 PM VENDING MACHINE HOST/HOSTESS documented in this encounter Progress Notes * Chris Owens MD - 08/25/2020 4:20 PM CST HEMATOLOGY / ONCOLOGY PROGRESS NOTE Patient Identification: Name: Gege Vidal Age: 60 y.o. Sex: female : 1960 DIAGNOSIS Hypercoagulable [...] 2018 when diagnosed with a stroke SUBJECTIVE Interim to the office for follow-up visit after the Cologuard test was done and came back positive.She denies any melena hematochezia. Denies any diarrhea and constipation. No weight loss. No other new complaints. Review of system Constitutional: denies fevers, sweats, fatigue, malaise, weight loss HEENT: denies sinus congestion, hearing or vision problems Respiratory: denies cough, dyspnea, wheeze Cardiovascular: denies chest pain, exertional chest pressure/discomfort, nausea, syncope, shortnessof breath GI: denies constipation, diarrhea, dsyphagia, reflux symptoms, vomiting, melena : denies dysuria, frequency, incontinence, urgency Integumentary system: no lymphadenopathy, sweats, flushing Musculoskeletal: denies: myalgia, arthralgia Neurological: denies blurry or disturbed vision, numbness/weakness, dizziness Skin: No lumps, folliculitis in the left groin region resolved 12 point review system was reviewed and as above Objective: Vital signs in last 24 hours: [...] No lymphadenopathy Neuro: No obvious focal deficit Examination as above PATH LABS Labs from June 2019 showed WBC 6.1 hemoglobin 13.4 platelet 266,000 creatinine 1.0. Labs from January 05 showed WBC 6.3 hemoglobin 14 platelet 298,000. Labs from August 01 showed creatinine 1.1 WBC 6.9 hemoglobin 13 platelet 258,000 Assessment: Plan: Patient Active Problem List Diagnosis Date Noted ??? Chronic embolism and thrombosis of unspecified deep veins of right lower extremity 01/06/2020 ??? Diverticulitis 03/24/2018 ??? Secondary hypercoagulable state 11/15/2017 ??? Tobacco use 11/15/2017 Hypercoagulable state with recurrent DVT, stroke and TIA. Previous work-up showed elevated homocystine level and positive lupus anticoagulant. Left lower extremity Doppler study done on July 26, 2020 showed no evidence of DVT. There is a hypoechoic subcutaneous fat in the left inguinal region consistent with inflammation. Patient is asymptomatic and will continue Xarelto 20 mg daily for lifelong duration. She will also continue folic acid daily. Follow-up with me in in 6 months. Positive Cologuard testing. Patient is going to see Dr. Mackey on October 13 for repeat colonoscopy. Breast cancer screening. Repeat mammogram will be done in July 2021. Lung cancer screening. Screening CT chest will be done in July 2021. TOBACCO COUNSELING She was counseled to discontinue tobacco use. 08/25/2020 Chris Owens MD ING MACHINE HOST/HOSTESS documented in this encounter Plan of Treatment Upcoming Encounters Date Type Department Care Team (Late st Contact Info) Description 12/04/2024 11:30 AM CDT Office Visit [facility] Oncology and Hematology - [place] [address] [facility] [address] [place] [address] Chris Owens MD [address] [facility] [address] [place] [address] documented as of this encounter Visit Diagnoses Diagnosis Chronic embolism and thrombosis of unspecified deep veins of right lower extremity- Primary documented in this encounter Care Teams Acetylene Burner Relationship Specialty Start Date End Date Boris Mcnair DO [address] [facility] [address] [place] [address] PCP - General Internal Medicine 01/06/20 02/20/23 documented as of this encounter
--- OUTSIDE RECORDS SUMMARY | 2024-09-04 17:15 | XMS_ITS | Encounter Summary ---
Author Organization [facility] [employer] [facility] Address [address] [place] [address] Care Team Providers Care Apartment Manager Name Role Phone Eris Vu MD Primary Care Provider [phone] Reason for Visit * Reason Comments Med Refill Encounter Details Date Type Department Care Team ([facility] Contact Info) Description 02/15/2024 Refill [facility] Oncology and Hematology - [place] [address] [place] [address] Chris Owens MD [facility] [employer] [address] [place] [address] Social History Tobacco Use Types Packs/Day [...] Upcoming Encounters Date Type Department Care Team ([facility] Contact Info) Description 12/04/2024 11:30 AM CDT Office Visit [facility] Oncology and Hematology - [place] [address] [place] [address] Chris Owens MD [facility] [facility] [address] [place] [address] documented as of this encounter Visit Diagnoses Not on filedocumented in this encounter Care Teams Apartment Manager Relationship Specialty Start Date End Date Eris Vu MD PCP - General Family Practice 02/21/23 documented as of this encounter
--- OUTSIDE RECORDS SUMMARY | 2024-09-04 17:15 | XMS_ITS | Encounter Summary ---
Author Organization [facility] Address [address] [place] [address] Care Team Providers Care Plumbing Mechanic Name Role Phone Eris Vu MD Primary Care Provider [phone] Encounter Details Date Type Department Care Team (Late st Contact Info) Description 11/01/2023 External Device Data STL ABSTRACTION Provider, Abstract [...] [facility] Oncology [facility] Hematology - [place] [address] [place] [address] [facility] [address] [place] [address] Chris Owens MD [address] [facility] [address] [place] [address] documented as of this encounter Visit Diagnoses Not on filedocumented in this encounter Care Teams Plumbing Mechanic Relationship Specialty Start Date End Date Eris Vu MD PCP - General Family Practice 02/21/23 documented as of this encounter
--- OUTSIDE RECORDS SUMMARY | 2024-09-04 17:15 | XMS_ITS | Encounter Summary ---
Author Organization [facility] [employer] [facility] Address [address] [place] [address] Care Team Providers Care Telephone Maintenance Mechanic Name Role Phone Boris Mcnair DO Primary Care Provider [phone] Encounter Details Date Type Department Care Team (Late st Contact Info) Description 07/20/2021 Orders Only [facility] Oncology and Hematology [facility] [address] [place] [address] Judy Varghese Visit for screening mammogram; Encounter for screening for lung cancer Social [...] Description 12/04/2024 11:30 AM CDT Office Visit [facility] Oncology and Hematology [facility] [address] [place] [address] Chris Owens MD [address] [facility] [address] [place] [address] documented as of this encounter Visit Diagnoses Diagnosis Visit for screening mammogram Other screening mammogram Encounter for screening for lung cancer documented in this encounter Care Teams Telephone Maintenance Mechanic Relationship Specialty Start Date End Date Boris Mcnair DO [address] [facility] [address] [place] [address] PCP - General Internal Medicine 01/06/20 02/20/23 documented as of this encounter
--- OUTSIDE RECORDS SUMMARY | 2024-09-04 17:15 | XMS_ITS | Encounter Summary ---
Author Organization [facility] [employer] [facility] Address [address] [place] [address] Care Team Providers Care Geothermal Field Technician Name Role Phone Boris Mcnair DO Primary Care Provider [phone] Reason for Visit * Reason Onset Date Comments Labs Only 02/23/2022 Labs Encounter Details Date Type Department Care Team (Late Contact Info) Description 02/23/2022 Telephone [facility] Oncology and Hematology - [place] [address] [facility] [address] [place] [address] Chris Owens MD [address] [facility] [address] [place] [address] Labs Only (Labs/) Social History Tobacco Use Types Packs/Day Years [...] Exposure Response Date Recorded In the last 10 days, have yo u been in contact with someone who was confirmed or suspected to have Coronavirus/COVID-19? No / Unsure 02/23/2022 11:41 AM CDT documented as of this encounter Miscellaneous Notes * Telephone Encounter - Esme Quintana - 02/23/2022 11:29 AM CDT s documented in this encounter Plan of Treatment Upcoming Encounters Date Type Department Care Team (Late Contact Info) Description 12/04/2024 11:30 AM CDT Office Visit [facility] Oncology and Hematology - [place] [address] [facility] [address] [place] [address] Chris Owens MD [address] [facility] [address] [place] [address] Scheduled Orders Name Type Priority Associated Diagnoses Orde r Schedule CBC WITH DIFFERENTIAL Lab Routine Hypercoagulable state Expected: 02/23/2022, Expires: 02/23/2023 COMPREHENSIVE METABOLIC PANEL Lab Routine Hypercoagulable state Expected: 02/23/2022, Expires: 02/23/2023 documented as of this encounter Visit Diagnoses Diagnosis Hypercoagulable state- Primary Primary hypercoagulable state documented in this encounter Care Teams Geothermal Field Technician Relationship Specialty Start Date End Date Boris Mcnair DO [address] [place] [address] PCP - General Internal Medicine 01/06/20 02/20/23 documented as of this encounter
--- OUTSIDE RECORDS SUMMARY | 2024-09-04 17:15 | XMS_ITS | Encounter Summary ---
Author Organization [facility] Address [address] [facility] Attn: Epic Prelude ADT LILY BAUMANN [address] Care Team Providers Care Accountant Controller Name Role Phone Boris Mcnair DO Primary Care Provider [phone] Encounter Details Date Type Department Care Team (Latest Contact Info) Description 01/30/2021 Travel Social History Tobacco Use Types Packs/Day [...] have Coronavirus / COVID-19? No / Unsure 01/30/2021 11:00 AM CDT documented as of this encounter Plan of Treatment Upcoming Encounters Date Type Department Care Team (Late st Contact Info) Description 12/04/2024 11:30 AM CDT Office Visit [facility] Oncology and Hematology - [place] [address] [place] [address] [place] [address] Chris Owens MD [address] [facility] [address] [place] [address] documented as of this encounter Visit Diagnoses Not on filedocumented in this encounter Care Teams Accountant Controller Relationship Specialty Start Date End Date Boris Mcnair DO [address] [place] [id number] PCP - General Internal Medicine 01/06/20 02/20/23 documented as of this encounter
--- OUTSIDE RECORDS SUMMARY | 2024-09-04 17:15 | XMS_ITS | Encounter Summary ---
Author Organization [facility] [employer] Address [address] [place] [address] Care Team Providers Care Chief Operator Lock Tender Name Role Phone Boris Mcnair DO Primary Care Provider [phone] Reason for Visit * Reason Onset Date Comments Needs Orders Written 08/01/2020 Encounter Details Date Type Department Care Team ([facility] Contact Info) Description 08/01/2020 Telephone [facility] [address] [place] [address] Chris Owens MD [address] [employer] [address] [place] [address] Needs Orders Written Social History Tobacco Use Types Packs/Day Years [...] have Coronavirus / COVID-19? No / Unsure 07/26/2020 8:03 AM POWERHOUSE MECHANIC documented as of this encounter Plan of Treatment Upcoming Encounters Date Type Department Care Team ([facility] Contact Info) Description 12/04/2024 11:30 AM CDT Office Visit [facility] Oncology [facility] [address] [place] [address] Chris Owens MD [address] [employer] [address] [place] [address] documented as of this encounter Visit Diagnoses Diagnosis Chronic embolism and thrombosis of unspecified deep veins of right lower extremity- Primary Secondary hypercoagulable state documented in this encounter Care Teams Chief Operator Lock Tender Relationship Specialty Start Date End Date Boris Mcnair DO [address] [facility] [address] [place] [address] PCP - General Internal Medicine 01/06/20 02/20/23 documented as of this encounter
--- OUTSIDE RECORDS SUMMARY | 2024-09-04 17:15 | XMS_ITS | Encounter Summary ---
Author Organization [facility] [employer] [facility] Address [address] [place] [address] Care Team Providers Care Service Or Work Dispatcher Chief Name Role Phone Boris Mcnair DO Primary Care Provider [phone] Reason for Visit * Reason Comments Med Refill Encounter Details Date Type Department Care Team ([facility] Contact Info) Description 09/03/[address] [facility] Oncology and Hematology - [place] [address] [place] [address] Chris Owens MD [facility] [employer] [address] [place] [address] Social History Tobacco Use Types Packs/Day [...] Upcoming Encounters Date Type Department Care Team ([facility] Contact Info) Description 12/04/2024 11:30 AM CDT Office Visit [facility] Oncology and Hematology - [place] [address] [place] [address] Chris Owens MD [facility] [employer] [address] [place] [address] documented as of this encounter Visit Diagnoses Not on filedocumented in this encounter Care Teams Service Or Work Dispatcher Chief Relationship Specialty Start Date End Date Boris Mcnair DO [address] [facility] 162 [email or web address] [address] [place] [address] PCP - General Internal Medicine 01/06/20 02/20/23 documented as of this encounter
--- OUTSIDE RECORDS SUMMARY | 2024-09-04 17:15 | XMS_ITS | Encounter Summary ---
Author Organization [facility] [employer] Address [address] [place] [address] Care Team Providers Care News Gathering Technician Name Role Phone Eris Vu MD Primary Care Provider [phone] Encounter Details Date Type Department Care Team (Late Contact Info) Description 02/21/2023 Orders Only [facility] Oncology and Hematology [place] [address] [place] [address] Chris Owens MD [facility] [employer] [address] [place] [address] Hypercoagulable state Social History Tobacco Use Types Packs/Day Years [...] Description 12/04/2024 11:30 AM CDT Office Visit [facility] Oncology and Hematology - [place] [place] [address] Chris Owens MD [address] [facility] [employer] [address] [place] [address] documented as of this encounter Visit Diagnoses Diagnosis Hypercoagulable state Primary hypercoagulable state documented in this encounter Care Teams News Gathering Technician Relationship Specialty Start Date End Date Eris Vu MD PCP - General Family Practice 02/21/23 documented as of this encounter
--- OUTSIDE RECORDS SUMMARY | 2024-09-04 17:15 | XMS_ITS | Encounter Summary ---
Author Organization [facility] [employer] [facility] Address [address] [place] [address] Care Team Providers Care Filenet P8 Developer Name Role Phone Boris Mcnair DO Primary Care Provider Reason for Visit * Reason Comments Med Refill Encounter Details Date Type Department Care Team ([facility] Contact Info) Description 05/22/2022 Refill [facility] Oncology and Hematology - [place] [address] [place] [address] Chris Owens MD [facility] [employer] [address] [place] [address] Social History Tobacco Use Types Packs/Day [...] Upcoming Encounters Date Type Department Care Team ([facility] Contact Info) Description 12/04/2024 11:30 AM CDT Office Visit [facility] Oncology and Hematology - [place] [address] [place] [address] Chris Owens MD [facility] [employer] [address] [place] [address] documented as of this encounter Visit Diagnoses Not on filedocumented in this encounter Care Teams [employer] P8 Developer Relationship Specialty Start Date End Date Boris Mcnair DO [address] [facility] 162 [facility] [address] [place] [address] PCP - General Internal Medicine 01/06/20 02/20/23 documented as of this encounter
--- OUTSIDE RECORDS SUMMARY | 2024-09-04 17:15 | XMS_ITS | Encounter Summary ---
Author Organization [facility] [employer] [facility] Address [address] [place] [address] Care Team Providers Care Director New Product Name Role Phone Eris Vu MD Primary Care Provider [phone] Reason for Referral * Radiology Services (Routine) - Closed Specialty Diagnoses / Procedures Referred By Evan bo Referred To Contact Diagnoses Abnormal mammogram of left breast Procedures MAMMO BREAST US LEFT LTD Chris Owens MD [address] [place] [address] [place] [address] Referral ID Status Reason Start Date Expiration Date V isits Requested Visits Authorized [id number] Closed STL CTS 08/12/2023 09/11/2024 1 1 CORE FISHING BOAT CREWMAN Encounter Details Date Type Department Care Team (Late st Contact Info) Description 08/12/2023 Orders Only [facility] Oncology and Hematology [facility] [address] [place] [address] [address] [place] [address] Chris Owens MD [address] [place] [address] Abnormal mammogram of left breast (Primary Dx) Social History Tobacco Use Types [...] Description 12/04/2024 11:30 AM CDT Office Visit [facility] Oncology and Hematology - [place] [address] [facility] [address] [place] [address] Chris Owens MD [address] [facility] [address] [place] [address] Scheduled Orders Name Type Priority Associated Diagnoses Orde r Schedule MAMMO BREAST US LEFT LTD Imaging Routine Abnormal mammogram of left breast 1 Occurrences starting 08/12/2023 until 02/09/2025 documented as of this encounter Visit Diagnoses Diagnosis Abnormal mammogram of left breast- Primary documented in this encounter Care Teams Director New Product Relationship Specialty Start Date End Date Eris Vu MD PCP - General Family Practice 02/21/23 documented as of this encounter
--- OUTSIDE RECORDS SUMMARY | 2024-09-04 17:15 | XMS_ITS | Encounter Summary ---
Author Organization [facility] [employer] [facility] Address [address] [place] [address] Care Team Providers Care Oracle Data Warehouse Developer Name Role Phone Eris Vu MD Primary Care Provider [phone] Reason for Visit * Reason Comments Med Refill Encounter Details Date Type Department Care Team ([facility] Contact Info) Description 05/26/2023 Refill [facility] Oncology and Hematology - [place] [address] [place] [address] Chris Owens MD [facility] [employer] [address] [place] [address] Social History Tobacco Use Types Packs/Day [...] Upcoming Encounters Date Type Department Care Team ([facility] Contact Info) Description 12/04/2024 11:30 AM CDT Office Visit [facility] Oncology and Hematology - [place] [address] [place] [address] Chris Owens MD [facility] [employer] [address] [place] [address] documented as of this encounter Visit Diagnoses Not on filedocumented in this encounter Care Teams Oracle Data Warehouse Developer Relationship Specialty Start Date End Date Eris Vu MD PCP - General Family Practice 02/21/23 documented as of this encounter
--- OUTSIDE RECORDS SUMMARY | 2024-09-04 17:15 | XMS_ITS | Encounter Summary ---
Author Organization [facility] Address [address] [place] [address] Care Team Providers Care Planting Material Carrier Name Role Phone Eris Vu MD Primary Care Provider [phone] Encounter Details Date Type Department Care Team (Late st Contact Info) Description 07/31/2023 External Device Data STL ABSTRACTION Provider, Abstract [...] Description 12/04/2024 11:30 AM CDT Office Visit [facility] Oncology and Hematology - [place] [address] [place] [address] [facility] [address] [place] [address] Chris Owens MD [address] [facility] [address] [place] [address] documented as of this encounter Visit Diagnoses Not on filedocumented in this encounter Care Teams Planting Material Carrier Relationship Specialty Start Date End Date Eris Vu MD PCP - General Family Practice 02/21/23 documented as of this encounter
--- OUTSIDE RECORDS SUMMARY | 2024-09-04 17:15 | XMS_ITS | Encounter Summary ---
Author Organization [facility] [employer] Address [address] [place] [address] Care Team Providers Care Coffee Shop Manager Name Role Phone Eris Vu MD Primary Care Provider [phone] Encounter Details Date Type Department Care Team (Late Contact Info) Description 11/11/2023 Abstract [facility] Oncology and Hematology [place] [address] [place] [address] Chris Owens MD [address] [place], [place] [address] [facility] [address] [address] Social History Tobacco Use Types [...] [place] On[facility] and Hematology - [place] [address] [place] [address] Chris Owens MD [facility] BRAZILil [address] [place] [address] documented as of this encounter Visit Diagnoses Not on filedocumented in this encounter Care Teams Coffee Shop Manager Relationship Specialty Start Date End Date Eris Vu MD PCP - General Family Practice 02/21/23 documented as of this encounter
--- OUTSIDE RECORDS SUMMARY | 2024-09-04 17:15 | XMS_ITS | Encounter Summary ---
Author Organization [facility] Address [address] [facility] Attn: Epic Prelude ADT [place] [address] Care Team Providers Care Dragger Out Name Role Phone Boris Mcnair DO Primary Care Provider [phone] Encounter Details Date Type Department Care Team (Latest Contact Info) Description 08/25/2020 Travel Social History Tobacco Use Types Packs/Day [...] COVID-19? No / Unsure 08/25/2020 2:09 PM SPRAY TECHNICIAN documented as of this encounter Plan of Treatment Upcoming Encounters Date Type Department Care Team (Late st Contact Info) Description 12/04/2024 11:30 AM CDT Office Visit [facility] Oncology and Hematology - [place] [address] [facility] [address] [place] [address] Chris Owens MD [address] [facility] [address] [place] [address] documented as of this encounter Visit Diagnoses Not on filedocumented in this encounter Care Teams Dragger Out Relationship Specialty Start Date End Date Boris Mcnair DO [address] [place] [address] PCP - General Internal Medicine 01/06/20 02/20/23 documented as of this encounter
--- OUTSIDE RECORDS SUMMARY | 2024-09-04 17:15 | XMS_ITS | Encounter Summary ---
Author Organization [facility] [employer] Address [address] [place] [address] Care Team Providers Care Pressurization Mechanic Name Role Phone Boris Mcnair DO Primary Care Provider [phone] Encounter Details Date Type Department Care Team (Late st Contact Info) Description 08/17/2022 Abstract [facility] Oncology and Hematology - [place] [address] [place] [address] Siobhan Bernal Social History Tobacco Use Types Packs/Day Years [...] Visit [facility] Oncology and Hematology [facility] [address] [place] [address] Chris Owens MD [address] [facility] [address] [place] [address] documented as of this encounter Visit Diagnoses Not on filedocumented in this encounter Care Teams Pressurization Mechanic Relationship Specialty Start Date End Date Boris Mcnair DO [address] [place] [id number] PCP - General Internal Medicine 01/06/20 02/20/23 documented as of this encounter
--- OUTSIDE RECORDS SUMMARY | 2024-09-04 17:15 | XMS_ITS | Encounter Summary ---
Author Organization [facility] [employer] [facility] Address [address] [place] [address] Care Team Providers Care English Horn Player Name Role Phone Eris Vu MD Primary Care Provider [phone] Encounter Details Date Type Department Care Team (Late Contact Info) Description 03/02/2024 3:45 PM CDT Telephone Check Up [facility] Oncology and Hematology - [place] [address] [facility] [address] [place] [address] Chris Owens MD [address] [facility] [address] [place] [address] Chronic anemia (Primary Dx) Social History Tobacco Use Types [...] as of this encounter Progress Notes * Chris Owens MD - 03/02/2024 4:33 PM CDT HEMATOLOGY / ONCOLOGY PROGRESS NOTE Patient Identification: Name: Gege Vidal Age: 63 y.o. Sex: female : 1960 DIAGNOSIS Hypercoagulable [...] 2018 when diagnosed with a stroke SUBJECTIVE This is a phone visit with patient to discuss the labs. He has mild tiredness and fatigue no bleeding and bruising. No diarrhea and constipation. Weight and appetite stable. No other new complaints. Review of system Constitutional: denies fevers, sweats, weight and appetite stable, complain of mild tiredness and fatigue HEENT: denies sinus congestion, hearing or vision [...] left groin region resolved 12 point review of system was reviewed Objective: Vital signs in last 24 hours: As per nursing note Exam: This is a phone visit [facility] Labs from June 2019 showed [...] 11.7 platelet 365,000 creatinine 1.1 Labs from February 23 showed WBC 6.5 hemoglobin 11.7 platelet 3 65,000 creatinine 1.1 iron 42 saturation 11% ferritin 15.4 vitamin B12 306 TSH 15.1 Assessment: Plan: Patient Active Problem List Diagnosis [...] inguinal region consistent with inflammation. There is evidence of blood clot on my examination. Will continue prophylactic dose of Xarelto that she has been tolerating well without any signs of bleeding. Anemia. Further blood test was done due to patient anemia and tiredness and fatigue. Iron and B12 came back on the low side. She will increase vitamin B12 to 1 mg daily and add iron 65 mg once a day.Repeat labs in 3 months. Hypothyroidism. TSH came back elevated. She is going to see her doctor this this week and will discuss dose adjustment of thyroid replacement. Breast cancer screening. She will have bilateral screening mammogram in February 2025. Lung cancer screening. She has quit smoking we will have her repeat CT scan in August 2024. Follow-up in 3 months with labs. TOBACCO COUNSELING She is not a tobacco/nicotine user. 03/02/2024 This encounter was completed via audio-only two way synchronous communication. Patient's identity confirmed yes Patient gave verbal consent to have these services billed to their insurance and expressed understanding that co-insurance and deductible may apply: yes Time spent by the provider delivering the care documented in this encounter 25 minutes. Chris Owens MD documented in this encounter Plan of Treatment Upcoming Encounters Date Type Department Care Team (Late st Contact Info) Description 12/04/2024 11:30 AM CDT Office Visit [facility] Oncology and Hematology - [place] [address] [facility] [address] [place] [address] Chris Owens MD [address] [facility] [address] [place] [address] Scheduled Orders Name Type Priority Associated Diagnoses Orde r Schedule CBC WITHOUT DIFFERENTIAL Lab Stat Chronic anemia Expected: 05/25/2024, Expires: 03/02/2025 FERRITIN Lab Routine Chronic anemia Expected: 05/25/2024, Expires: 03/02/2025 IRON, TIBC, AND PERCENT SATURATION Lab Routine Chronic anemia Expected: 05/25/2024, Expires: 03/02/2025 VITAMIN B12 AND FOLATE Lab Routine Chronic anemia Expected: 05/25/2024, Expires: 03/02/2025 documented as of this encounter Visit Diagnoses Diagnosis Chronic anemia- Primary Anemia, unspecified documented in this encounter Care Teams English Horn Player Relationship Specialty Start Date End Date Eris Vu MD PCP - General Family Practice 02/21/23 documented as of this encounter
--- OUTSIDE RECORDS SUMMARY | 2024-09-04 17:15 | XMS_ITS | Encounter Summary ---
Author Organization [facility] [email or web address] [facility] Address [address] [place] [address] Care Team Providers Care Warehouse Driver Name Role Phone Eris Vu MD Primary Care Provider [phone] Reason for Visit * Reason Onset Date Comments lab order 02/21/2023 Cmp cbc Encounter Details Date Type Department Care Team (Late Contact Info) Description 02/21/2023 Telephone [facility] Oncology and Hematology [facility] [address] [place] [address] Chris Owens MD [address] [facility] [address] [place] [address] lab order (Cmp cbc /) Social History Tobacco Use Types Packs/Day Years [...] encounter Miscellaneous Notes * Telephone Encounter - Niya Cardoso - 02/21/2023 10:33 AM CDT CBC / CMP lab order- hand delivered to [facility] documented in this encounter Plan of Treatment Upcoming Encounters Date Type Department Care Team (Late Contact Info) Description 12/04/2024 11:30 AM CDT Office Visit [facility] Oncology and Hematology [facility] [address] [place] [address] Chris Owens MD [facility] [address] [place] [address] Scheduled Orders Name Type Priority Associated Diagnoses Orde r Schedule COMPREHENSIVE METABOLIC PANEL Lab Stat Hypercoagulable state Expected: 02/21/2023, Expires: 02/22/2024 documented as of this encounter Visit Diagnoses Diagnosis Hypercoagulable state- Primary Primary hypercoagulable state documented in this encounter Care Teams Warehouse Driver Relationship Specialty Start Date End Date Eris Vu MD PCP - General Family Practice 02/21/23 documented as of this encounter
--- OUTSIDE RECORDS SUMMARY | 2024-09-04 17:15 | XMS_ITS | Encounter Summary ---
Author Organization [facility] [employer] [facility] Address [address] [place] [address] Care Team Providers Care Sales Associate Name Role Phone Eris Vu MD Primary Care Provider [phone] Reason for Visit * Reason Comments Med Refill Encounter Details Date Type Department Care Team ([facility] Contact Info) Description 03/09/2023 Refill [facility] Oncology and Hematology - [place] [address] [place] [address] Chris Owens MD [facility] [employer] [address] [place] [address] Social History Tobacco Use Types Packs/Day [...] Upcoming Encounters Date Type Department Care Team ([facility] Contact Info) Description 12/04/2024 11:30 AM CDT Office Visit [facility] Oncology and Hematology - [place] [address] [place] [address] Chris Owens MD [facility] [employer] [address] [place] [address] documented as of this encounter Visit Diagnoses Not on filedocumented in this encounter Care Teams Sales Associate Relationship Specialty Start Date End Date Eris Vu MD PCP - General Family Practice 02/21/23 documented as of this encounter
--- OUTSIDE RECORDS SUMMARY | 2024-09-04 17:15 | XMS_ITS | Encounter Summary ---
Author Organization [facility] [employer] [facility] Address [address] [place] [address] Care Team Providers Care Reading Efficiency Course Director Name Role Phone Eris Vu MD Primary Care Provider [phone] Reason for Visit * Reason Comments Med Refill Encounter Details Date Type Department Care Team ([facility] Contact Info) Description 08/26/2023 Refill [facility] Oncology and Hematology - [place] [address] [place] [address] Chris Owens MD [facility] [address] [place] [address] Social History Tobacco Use Types Packs/Day [...] Upcoming Encounters Date Type Department Care Team ([facility] Contact Info) Description 12/04/2024 11:30 AM CDT Office Visit [facility] Oncology and Hematology - [place] [address] [place] [address] Chris Owens MD [facility] [employer] [place] [address] documented as of this encounter Visit Diagnoses Not on filedocumented in this encounter Care Teams Reading Efficiency Course Director Relationship Specialty Start Date End Date Eris Vu MD PCP - General Family Practice 02/21/23 documented as of this encounter
--- OUTSIDE RECORDS SUMMARY | 2024-09-04 17:15 | XMS_ITS | Encounter Summary ---
Author Organization [facility] [employer] [facility] Address [address] [place] [address] Care Team Providers Care Music Engraver Name Role Phone Eris Vu MD Primary Care Provider [phone] Encounter Details Date Type Department Care Team (Late Contact Info) Description 08/23/2023 Orders Only [facility] Oncology and Hematology [facility] [address] [place] [address] Chris Owens MD [address] [place] [address] [employer] [address] [address] Social History Tobacco Use Types [...] Description 12/04/2024 11:30 AM CDT Office Visit [facility] Oncology and Hematology [place] [address] [place] [address] Chris Owens MD [address] [place] [address] [employer] [address] [place] [address] documented as of this encounter Procedures Procedure Name Priority Date/Time Associated Diagnosis Comments CT LUNG SCREENING (FOLLOW UP DIAGNOSTIC) WO CONTRAST Routine 08/22/2023 10:15 AM RECORDIST CHIEF documented in this encounter Results * CT LUNG SCREENING (FOLLOW UP DIAGNOSTIC) WO CONTRAST (08/22/2023 10:15 AM RECORDIST CHIEF) Anatomical Region Laterality Modality Chest Other Chris Owens MD CT ORDERABLES documented in this encounter Visit Diagnoses Not on filedocumented in this encounter Care Teams Music Engraver Relationship Specialty Start Date End Date Eris Vu MD PCP - General Family Practice 02/21/23 documented as of this encounter
--- OUTSIDE RECORDS SUMMARY | 2024-09-04 17:15 | XMS_ITS | Encounter Summary ---
Author Organization [facility] Address [address] [place] [address] Care Team Providers Care Industrial Truck Operator Name Role Phone Eris Vu MD Primary Care Provider [phone] Encounter Details Date Type Department Care Team (Late st Contact Info) Description 02/04/2024 External Device Data STL ABSTRACTION Provider, Abstract [...] Description 12/04/2024 11:30 AM CDT Office Visit [facility] Oncology and Hematology - [place] [address] [place] [address] [facility] [address] [place] [address] Chris Owens MD [address] [facility] [address] [place] [address] documented as of this encounter Visit Diagnoses Not on filedocumented in this encounter Care Teams Industrial Truck Operator Relationship Specialty Start Date End Date Eris Vu MD PCP - General Family Practice 02/21/23 documented as of this encounter
--- OUTSIDE RECORDS SUMMARY | 2024-09-04 17:15 | XMS_ITS | Encounter Summary ---
Author Organization [facility] [employer] Address [address] [place] [address] Care Team Providers Care Industrial Workers Name Role Phone Boris Mcnair DO Primary Care Provider [phone] Encounter Details Date Type Department Care Team (Late st Contact Info) Description 07/20/2021 Orders Only [facility] Oncology and Hematology [facility] [address] [place] [address] Provider, Abstract NO ADDRESS ON FILE Social [...] Description 12/04/2024 11:30 AM CDT Office Visit [facility] Oncology [facility] [address] [place] [address] Chris Owens MD [address] [facility] [address] [place] [address] documented as of this encounter Procedures Procedure Name Priority Date/Time Associated Diagnosis Comments COMPREHENSIVE METABOLIC PANEL Routine 07/20/2021 documented in this encounter Results * COMPREHENSIVE METABOLIC PANEL (07/20/2021) Blood Abstract Provider CHEMISTRY ORDERABLES documented in this encounter Visit Diagnoses Not on filedocumented in this encounter Care Teams Industrial Workers Relationship Specialty Start Date End Date Boris Mcnair DO [address] [facility] 162 [facility] 204 [place] [address] PCP - General Internal Medicine 01/06/20 02/20/23 documented as of this encounter
--- OUTSIDE RECORDS SUMMARY | 2024-09-04 17:15 | XMS_ITS | Encounter Summary ---
Author Organization [facility] Address [address] [place] [address] Care Team Providers Care Salvationist Name Role Phone Eris Vu MD Primary Care Provider [phone] Encounter Details Date Type Department Care Team (Late st Contact Info) Description 09/17/2023 External Device Data STL ABSTRACTION Provider, Abstract [...] Description 12/04/2024 11:30 AM CDT Office Visit [facility] Oncology and Hematology - [place] [address] [place] [address] [facility] [address] [place] [address] Chris Owens MD [address] [facility] [address] [place] [address] documented as of this encounter Visit Diagnoses Not on filedocumented in this encounter Care Teams Salvationist Relationship Specialty Start Date End Date Eris Vu MD PCP - General Family Practice 02/21/23 documented as of this encounter
--- OUTSIDE RECORDS SUMMARY | 2024-09-04 17:15 | XMS_ITS | Encounter Summary ---
Author Organization [facility] [employer] [address] [place] [address] Care Team Providers Care Public Health Sanitarian Technician Name Role Phone Boris Mcnair DO Primary Care Provider [phone] Reason for Visit * Reason Comments Medication Refill Encounter Details Date Type Department Care Team ([facility] Contact Info) Description 04/27/2021 Refill [facility] Oncology and Hematology [place] [address] [place] [address] Chris Owens MD [address] [employer] [address] [place] [address] Social History Tobacco Use Types Packs/Day [...] Upcoming Encounters Date Type Department Care Team ([facility] Contact Info) Description 12/04/2024 11:30 AM CDT Office Visit [facility] Oncology [facility] Hematology [facility] [address] [place] [address] Chris Owens MD [address] [employer] [address] [place] [address] documented as of this encounter Visit Diagnoses Not on filedocumented in this encounter Care Teams Public Health Sanitarian Technician Relationship Specialty Start Date End Date Boris Mcnair DO [address] [facility] 162 [facility] [address] [place] [address] PCP - General Internal Medicine 01/06/20 02/20/23 documented as of this encounter
--- OUTSIDE RECORDS SUMMARY | 2024-09-04 17:15 | XMS_ITS | Encounter Summary ---
Author Organization [facility] [employer] Address [address] [place] [address] Care Team Providers Care Cell Pourer Name Role Phone Boris Mcnair DO Primary Care Provider [phone] Encounter Details Date Type Department Care Team (Late st Contact Info) Description 07/21/2021 Orders Only [facility] Oncology and Hematology [facility] [address] [place] [address] Provider, Abstract NO ADDRESS ON [...] Visit [facility] Oncology [facility] [address] [place] [address] Chris Owens MD [address] [facility] [address] [place] [address] documented as of this encounter Procedures Procedure Name Priority Date/Time Associated Diagnosis Comments TSH Routine 07/20/2021 COMPREHENSIVE METABOLIC PANEL Routine 07/20/2021 documented in this encounter Results * TSH (07/20/2021) Blood Abstract Provider CHEMISTRY ORDERABLES * COMPREHENSIVE METABOLIC PANEL (07/20/2021) Blood Abstract Provider CHEMISTRY ORDERABLES documented in this encounter Visit Diagnoses Not on filedocumented in this encounter Care Teams Cell Pourer Relationship Specialty Start Date End Date Boris Mcnair DO 68[address] [facility] 162 [facility] 204 [place] [id number] PCP - General Internal Medicine 01/06/20 02/20/23 documented as of this encounter
--- OUTSIDE RECORDS SUMMARY | 2024-09-04 17:15 | XMS_ITS | Encounter Summary ---
Author Organization [facility] [email or web address] [facility] Address [address] [place] [address] Care Team Providers Care International First Officer Name Role Phone Eris Vu MD Primary Care Provider [phone] Reason for Referral * Radiology Services (Routine) - Closed Specialty Diagnoses / Procedures Referred By Contburt t Referred To Contact Diagnoses Abnormal mammogram of left breast Procedures MAMMO DIAG UNI LEFT 3D HUMBERTO W OR WO CAD CHG DIAGNOSTIC MAMMOGRAPHY COMPUTER-AIDED DETCJ UNI CHG DIGITAL BREAST TOMOSYNTHESIS UNILATERAL Chris Owens MD [address] [place] [address] [place] [address] Referral ID Status Reason Start Date Expiration Date V isits Requested Visits Authorized [id number] Closed STL CTS 08/12/2023 09/11/2024 1 1 JOCKEY Encounter Details Date Type Department Care Team (Late st Contact Info) Description 08/12/2023 Orders Only [facility] Oncology and Hematology [place] [address] [employer] [address] [place] [address] Chris Owens MD [address] [place] [address] Abnormal mammogram of left breast [...] Description 12/04/2024 11:30 AM CDT Office Visit [facility] Oncology and Hematology - [place] [address] [place] [address] Chris Owens MD [address] [facility] [address] [place] [address] Scheduled Orders Name Type Priority Associated Diagnoses Orde r Schedule MAMMO DIAG UNI LEFT 3D HUMBERTO W OR WO CAD Imaging Routine Abnormal mammogram of left breast 1 Occurrences starting 08/12/2023 until 02/09/2025 documented as of this encounter Procedures Procedure Name Priority Date/Time Associated Diagnosis Comments MAMMO SCREENING BILAT Routine 08/07/2023 11:16 AM GAS JOCKEY documented in this encounter Results * MAMMO SCREENING BILAT (08/07/2023 11:16 AM GAS JOCKEY) Anatomical Region Laterality Modality Breast Bilateral Other Chris Owens MD MAMMO ORDERABLES documented in this encounter Visit Diagnoses Diagnosis Abnormal mammogram of left breast- Primary documented in this encounter Care Teams International First Officer Relationship Specialty Start Date End Date Eris Vu MD PCP - General Family Practice 02/21/23 documented as of this encounter
--- OUTSIDE RECORDS SUMMARY | 2024-09-04 17:15 | XMS_ITS | Encounter Summary ---
Author Organization [facility] [employer] Address [address] [place] [address] Care Team Providers Care Notched Blade Loader Name Role Phone Boris Mcnair DO Primary Care Provider [phone] Encounter Details Date Type Department Care Team ([facility] Contact Info) Description 08/04/2020 Orders Only [facility]3] Oncology and [facility] [address] [facility] [address] [place] [address] Provider, Abstract NO ADDRESS ON [...] have Coronavirus / COVID-19? No / Unsure 08/01/2020 1:52 PM BRAND LEADER documented as of this encounter Plan of Treatment Upcoming Encounters Date Type Department Care Team (Late Contact Info) Description 12/04/2024 11:30 AM CDT Office Visit [facility]3] Oncology and Hematology [facility] [address] [place] [address] Chris Owens MD [address] [facility] [address] [place] [address] documented as of this encounter Procedures Procedure Name Priority Date/Time Associated Diagnosis Comments BASIC METABOLIC PANEL Routine 08/01/2020 documented in this encounter Results * BASIC METABOLIC PANEL (08/01/2020) Blood Abstract Provider CHEMISTRY ORDERABLES NON [facility] documented in this encounter Visit Diagnoses Not on filedocumented in this encounter Care Teams Notched Blade Loader Relationship Specialty Start Date End Date Boris Mcnair DO [address] [facility] [address] [place] [address] PCP - General Internal Medicine 01/06/20 02/20/23 documented as of this encounter
--- OUTSIDE RECORDS SUMMARY | 2024-09-04 17:15 | XMS_ITS | Encounter Summary ---
Author Organization [facility] [employer] Address [address] [place] [address] Care Team Providers Care Stone Cleaner Name Role Phone Eris Vu MD Primary Care Provider [phone] Reason for Visit * Reason Onset Date Comments Clearance 11/11/2023 Encounter Details Date Type Department Care Team (Late st Contact Info) Description 11/11/2023 Telephone [facility] Oncology and Hematology - [place] [address] [facility] [address] [place] [address] Chris Owens MD [address] [facility] [address] [place] [address] Clearance Social History Tobacco Use Types Packs/Day Years [...] encounter Miscellaneous Notes * Telephone Encounter - Siobhan Bernal - 11/11/2023 7:47 AM CST Clearance faxed back over to office. Scanned into [employer] I SHARE PROGRAM COORDINATOR * Telephone Encounter - Siobhan Bernal - 11/11/2023 7:47 AM CST ----- Message from Chris Owens MD sent at 11/08/2023 3:59 PM MULTI SHARE PROGRAM COORDINATOR ----- Regarding: RE: Clearance That should be fine. ----- Message ----- From: Siobhan Bernal Sent: 11/07/2023 11:10 AM MULTI SHARE PROGRAM COORDINATOR To: Chris Owens MD Subject: [facility] is wanting to know if it is ok for patient to stop Xarelto 2 days prior to havingcolonoscopy? Please advise. I SHARE PROGRAM COORDINATOR documented in this encounter Plan of Treatment Upcoming Encounters Date Type Department Care Team (Late st Contact Info) Description 12/04/2024 11:30 AM CDT Office Visit [facility] Oncology and Hematology [facility] 2[address] [facility] [address] [place] [address] Chris Owens MD [address] [facility] [address] [place] [address] documented as of this encounter Visit Diagnoses Not on filedocumented in this encounter Care Teams Stone Cleaner Relationship Specialty Start Date End Date Eris Vu MD PCP - General Family Practice 02/21/23 documented as of this encounter
--- OUTSIDE RECORDS SUMMARY | 2024-09-04 17:15 | XMS_ITS | Encounter Summary ---
Author Organization [facility] [employer] [facility] Address [address] [place] [address] Care Team Providers Care Animal Biologist Name Role Phone Boris Mcnair DO Primary Care Provider [phone] Reason for Visit * Reason Onset Date Comments Concerned she may have had another stroke 2022 Encounter Details Date Type Department Care Team (Late st Contact Info) Description 12/21/2022 Telephone [facility] Oncology and Hematology - [place] [address] [facility] [address] [place] [address] Chris Owens MD [address] [facility] [address] [place] [address] Concerned she may have had another stroke Social History Tobacco Use Types Packs/Day Years [...] encounter Miscellaneous Notes * Telephone Encounter - Amelia Gilman RN - 12/21/2022 9:11 AM CDT Patient called and said she had an episode last evening at her [employer] game. She was dizzy, lightheaded, nauseaus, unsteady, felt like she couldn't control her feet, words were hard and she just wanted to sleep. She has a past history of a stroke and she said she felt similar. She is on Xarelto and aspirin. Her son wanted to take to the ER last evening but she refused. She laid down in the car and does not remember much after and still feels groggy and weak this morning. Instructedpatient to go to the Emergency room for evaluation. documented in this encounter Plan of Treatment Upcoming Encounters Date Type Department Care Team (Late st Contact Info) Description 12/04/2024 11:30 AM CDT Office Visit [facility] Oncology and Hematology - [place] [address] [facility] [address] [place] [address] Chris Owens MD [address] [facility] [address] [place] [address] documented as of this encounter Visit Diagnoses Not on filedocumented in this encounter Care Teams Animal Biologist Relationship Specialty Start Date End Date Boris Mcnair DO 68[address] [facility] [address] [place] [address] PCP - General Internal Medicine 01/06/20 02/20/23 documented as of this encounter
--- OUTSIDE RECORDS SUMMARY | 2024-09-04 17:15 | XMS_ITS | Encounter Summary ---
Author Organization [facility] Address [address] [place] [address] Care Team Providers Care Monologist Name Role Phone Boris Mcnair Primary Care Provider [phone] Reason for Referral * CT Scan (Routine) - Closed Specialty Diagnoses / Procedures Referred By Evan bo Referred To Contact Diagnoses Encounter for screening for lung cancer Procedures CT LUNG SCREENING (F/U DIAGNOSTIC) W CONTRAST Chris Owens MD [address] [facility] [employer] [address] [place], [place] [address] [place] [address] Referral ID Status Reason Start Date Expiration Date V isits Requested Visits Authorized [id number] Closed STL CTS 01/30/2021 03/02/2022 1 1 * Radiology Services (Routine) - Closed Specialty Diagnoses / Procedures Referred By Evan bo Referred To Contact Diagnoses Visit for screening mammogram Procedures MAMMO SCREEN BILAT W OR WO CAD Chris Owens MD [address] [place] [address] [place] [address] Referral ID Status Reason Start Date Expiration Date V isits Requested Visits Authorized [id number] Closed STL CTS 01/30/2021 03/02/2022 1 1 Reason for Visit * Reason Comments Follow Up 6 month F/U Encounter Details Date Type Department Care Team (Late st Contact Info) Description 01/30/2021 11:45 AM CDT Office Visit [facility] Oncology and Hematology - [place] 2[address] [facility] [address] [place] [address] Chris Owens MD [address] [facility] [address] [place] [address] Visit for screening mammogram (Primary Dx); Encounter for screening for lung cancer; Chronic embolism and thrombosis of unspecified deep veins of right lower extremity Social History Tobacco Use Types Packs/Day Years [...] AM CDT documented as of this encounter Last Filed Vital Signs Vital Sign Reading Time Taken Comments Blood Pressure 108/60 01/30/2021 11:47 AM CDT Pulse 64 01/30/2021 11:47 AM CDT Temperature 36.4 ??C (97.6 ??F) 01/30/2021 11:47 AM C DT Respiratory Rate - - Oxygen Saturation 96% 01/30/2021 11:47 AM CDT Inhaled Oxygen Concentration - - Weight 84.1 kg (185 lb 4.8 oz) 01/30/2021 11:47 AM CDT Height 162.6 cm (5' 4 ) 01/30/2021 11:47 AM CDT Body Mass Index 31.81 01/30/2021 11:47 AM CDT documented in this encounter Progress Notes * Chris Owens MD - 01/30/2021 4:32 PM CDT HEMATOLOGY / ONCOLOGY PROGRESS NOTE [...] diagnosed with a stroke SUBJECTIVE Patient came into the office for follow-up visit. She denies any bleeding and bruising. Denies any chest pain or shortness of breath. She has been taking Xarelto regularly without any problem. No other new complaints. Review of system [...] 11.8 hemoglobin 14.4 platelet 349,000 creatinine 1.0 labs Assessment: Plan: Patient Active Problem List Diagnosis [...] the left inguinal region consistent with inflammation. Clinically patient is stable and tolerating Xarelto well. I will see her back on a yearly basis. Anemia. Hemoglobin is stable. Breast cancer screening. Patient will have mammogram done in July 2021. Lung cancer screening. I will order repeat CT chest in July 2021. Follow-up in 1 year. TOBACCO COUNSELING She is not a tobacco user. 01/30/2021 Chris Owens MD documented in this encounter Plan of Treatment Upcoming Encounters Date Type Department Care Team (Late st Contact Info) Description 12/04/2024 11:30 AM CDT Office Visit [facility] Oncology and Hematology - [place] [address] [place] [address] [address] [place] [address] Chris Owens MD [address] [facility] [address] [place] [address] Scheduled Orders Name Type Priority Associated Diagnoses Orde r Schedule MAMMO SCREEN BILAT W OR WO CAD Imaging Routine Visit for screening mammogram Expected: 08/02/2021, Expires: 01/30/2022 CT LUNG SCREENING (F/U DIAGNOSTIC) W CONTRAST Imaging Routine Encounter for screening for lung cancer Expected: 08/02/2021, Expires: 01/30/2022 documented as of this encounter Visit Diagnoses Diagnosis Visit for screening mammogram- Primary Other screening mammogram Encounter for screening for lung cancer Chronic embolism and thrombosis of unspecified deep veins of right lower extremity documented in this encounter Care Teams Monologist Relationship Specialty Start Date End Date Boris Mcnair DO 6812 [facility] 162 [facility] 204 [place] [address] PCP - General Internal Medicine 01/06/20 02/20/23 documented as of this encounter
--- OUTSIDE RECORDS SUMMARY | 2024-09-04 17:15 | XMS_ITS | Encounter Summary ---
Author Organization [facility] [employer] [facility] Address [address] [place] [address] Care Team Providers Care Home Health Provider Name Role Phone Boris Mcnair DO Primary Care Provider [phone] Reason for Visit * Reason Onset Date Comments hold xeralto 2 days before procedure 06/15/2021 Encounter Details Date Type Department Care Team (Late Contact Info) Description 06/15/2021 Telephone [facility] Oncology and Hematology - [place] 2[address] [facility] [address] [place] [address] Chris Owens MD [address] [facility] [address] [place] [address] hold xeralto 2 days before procedure Social History Tobacco Use Types Packs/Day Years [...] encounter Miscellaneous Notes * Telephone Encounter - Samantha Garcia RN - 06/15/2021 10:37 AM CDT Faxed response to anesthesia department that patient should hold xeralto for 2 days before EGD on 06/14/21. Patient called today to inquire about instructions. documented in this encounter Plan of Treatment Upcoming Encounters Date Type Department Care Team (Late Contact Info) Description 12/04/2024 11:30 AM CDT Office Visit [facility] Oncology and Hematology - [place] 2[address] [facility] [address] [place] [address] Chris Owens MD [address] [facility] [address] [place] [address] documented as of this encounter Visit Diagnoses Not on filedocumented in this encounter Care Teams Home Health Provider Relationship Specialty Start Date End Date Boris Mcnair DO [address] [facility] [address] [place] [address] PCP - General Internal Medicine 01/06/20 02/20/23 documented as of this encounter
--- OUTSIDE RECORDS SUMMARY | 2024-09-04 17:15 | XMS_ITS | Encounter Summary ---
Author Organization [facility] Address [address] [place] [address] Care Team Providers Care Digital Tech Name Role Phone Eris Vu MD Primary Care Provider [phone] Encounter Details Date Type Department Care Team (Late st Contact Info) Description 11/21/2023 External Device Data STL ABSTRACTION Provider, Abstract [...] Description 12/04/2024 11:30 AM CDT Office Visit [facility] Oncology and Hematology - [place] [address] [place] [address] [facility] 200 [place] [address] Chris Owens MD [address] [facility] [address] [place] [address] documented as of this encounter Visit Diagnoses Not on filedocumented in this encounter Care Teams Digital Tech Relationship Specialty Start Date End Date Eris Vu MD PCP - General Family Practice 02/21/23 documented as of this encounter
--- OUTSIDE RECORDS SUMMARY | 2024-09-04 17:15 | XMS_ITS | Encounter Summary ---
Author Organization [facility] [employer] [facility] Address [address] [place] [address] Care Team Providers Care Human Factors Advisor Lead Name Role Phone Eris Vu MD Primary Care Provider [phone] Reason for Visit * Reason Comments Follow Up Encounter Details Date Type Department Care Team (Late st Contact Info) Description 02/21/2023 11:30 AM CDT Office Visit [facility] Oncology and Hematology - [place] [address] [place] [address] [address] [place] [address] Chris Owens MD [address] [facility] [address] [place] [address] Hypercoagulable state (Primary Dx); Visit for screening mammogram; Encounter for screening [...] Sign Reading Time Taken Comments Blood Pressure 118/64 02/21/2023 11:20 AM CDT Pulse 70 02/21/2023 11:20 AM CDT Temperature 36 ??C (96.8 ??F) 02/21/2023 11:20 AM CDT Respiratory Rate 10 02/21/2023 11:20 AM CDT Oxygen Saturation 99% 02/21/2023 11:20 AM CDT Inhaled Oxygen Concentration - - Weight 84.8 kg (187 lb) 02/21/2023 11:20 AM CDT Height - - Body Mass Index 32.1 02/23/2022 11:52 AM CDT documented in this encounter Progress Notes * Chris Owens MD - 02/21/2023 12:27 PM CDT HEMATOLOGY / ONCOLOGY PROGRESS NOTE Patient Identification: Name: Gege Vidal Age: 62 y.o. Sex: female : 1960 DIAGNOSIS Hypercoagulable [...] to the office for follow-up visit. She has gained 5 pound weight since she has quit smoking. No chest pain or shortness of breath. No bleeding and bruising. No other new complaints. Review of system Constitutional: denies fevers, sweats, fatigue, malaise, 5 pound weight gain HEENT: denies sinus congestion, hearing or vision [...] 6.9 hemoglobin 13.4 platelet 302,000 creatinine 1.1 Assessment: Plan: Patient Active Problem List Diagnosis [...] with inflammation. There is no evidence of blood clot clinically. She will continue Xarelto 20 mg daily which she has been tolerating well. Anemia. Hemoglobin stable. Breast cancer screening. She will have repeat mammogram in 6 months. Lung cancer screening. She has quit smoking. We will repeat lung cancer screening CT scan in 6 months. Follow-up in 1 year. 02/21/2023 Chris Owens MD documented in this encounter Plan of Treatment Upcoming Encounters Date Type Department Care Team (Late st Contact Info) Description 12/04/2024 11:30 AM CDT Office Visit [facility] Oncology and Hematology - [place] [facility] [address] [place] [address] Chris Owens MD [facility] [facility] [address] [place] [address] documented as of this encounter Visit Diagnoses Diagnosis Hypercoagulable state- Primary Primary hypercoagulable state Visit for screening mammogram Other screening mammogram Encounter for screening for lung cancer documented in this encounter Care Teams Human Factors Advisor Lead Relationship Specialty Start Date End Date Eris Vu MD PCP - General Family Practice 02/21/23 documented as of this encounter
--- OUTSIDE RECORDS SUMMARY | 2024-09-04 17:15 | XMS_ITS | Encounter Summary ---
Author Organization [facility] [employer] [facility] Address [address] [place] [address] Care Team Providers Care Research Physicist Name Role Phone Eris Vu MD Primary Care Provider [phone] Reason for Visit * Reason Comments Med Refill Encounter Details Date Type Department Care Team ([facility] Contact Info) Description 05/08/2023 Refill [facility] Oncology and Hematology - [place] [address] [place] [address] Chris Owens MD [facility] [employer] [address] [place] [address] Social History Tobacco Use Types Packs/Day [...] Upcoming Encounters Date Type Department Care Team ([facility] Contact Info) Description 12/04/2024 11:30 AM CDT Office Visit [facility] Oncology and Hematology - [place] [address] [place] [address] Chris Owens MD [facility] [employer] [address] [place] [address] documented as of this encounter Visit Diagnoses Not on filedocumented in this encounter Care Teams Research Physicist Relationship Specialty Start Date End Date Eris Vu MD PCP - General Family Practice 02/21/23 documented as of this encounter
--- OUTSIDE RECORDS SUMMARY | 2024-09-04 17:15 | XMS_ITS | Encounter Summary ---
Author Organization [facility] [employer] [facility] Address [address] [place] [address] Care Team Providers Care Ticket Taker Name Role Phone Boris Mcnair DO Primary Care Provider [phone] Encounter Details Date Type Department Care Team (Late st Contact Info) Description 08/08/2022 Orders Only [facility] Oncology and Hematology [place] [address] [place] [address] Amelia Gilman RN Visit for screening mammogram Social History Tobacco Use Types Packs/Day Years [...] Visit [facility] Oncology and Hematology [facility] [address] [place] [address] Chris Owens MD [address] [facility] [address] [place] [address] documented as of this encounter Visit Diagnoses Diagnosis Visit for screening mammogram Other screening mammogram documented in this encounter Care Teams Ticket Taker Relationship Specialty Start Date End Date Boris Mcnair DO [address] [facility] [address] [place] [address] PCP - General Internal Medicine 01/06/20 02/20/23 documented as of this encounter
--- OUTSIDE RECORDS SUMMARY | 2024-09-04 17:15 | XMS_ITS | Encounter Summary ---
Author Organization [facility] Address [address] [facility] Attn: Epic Prelude ADT LILY BAUMANN [address] Care Team Providers Care Bottom Man Name Role Phone Boris Mcnair DO Primary Care Provider [phone] Encounter Details Date Type Department Care Team (Latest Contact Info) Description 02/23/2022 Travel Social History Tobacco Use Types Packs/Day [...] 12/04/2024 11:30 AM CDT Office Visit [facility] Oncology and Hematology - [place] [address] [place] [address] Chris Owens MD [address] [facility] [address] [place] [address] documented as of this encounter Visit Diagnoses Not on filedocumented in this encounter Care Teams Bottom Man Relationship Specialty Start Date End Date Boris Mcnair DO [address] [place] [phone] PCP - General Internal Medicine 01/06/20 02/20/23 documented as of this encounter
--- OUTSIDE RECORDS SUMMARY | 2024-09-04 17:15 | XMS_ITS | Encounter Summary ---
Author Organization [facility] [address] Address [address] [place] [address] Care Team Providers Care Warehouse Order Selector Name Role Phone Boris Mcnair DO Primary Care Provider [phone] Encounter Details Date Type Department Care Team (Late Contact Info) Description 03/18/2022 Orders Only [facility] Oncology [facility] Hematology [facility] [address] [place] [address] Chris Owens MD [facility] [address] [place] [address] Hypercoagulable state Social History Tobacco Use [...] 12/04/2024 11:30 AM CDT Office Visit [facility] Oncology and Hematology [facility] [address] [place] [address] Chris Owens MD [address] [place] [address] documented as of this encounter Visit Diagnoses Diagnosis Hypercoagulable state Primary hypercoagulable state documented in this encounter Care Teams Warehouse Order Selector Relationship Specialty Start Date End Date Boris Mcnair DO [address] [facility] [address] [place] [address] PCP - General Internal Medicine 01/06/20 02/20/23 documented as of this encounter
--- OUTSIDE RECORDS SUMMARY | 2024-09-04 17:15 | XMS_ITS | Encounter Summary ---
Author Organization [facility] [employer] [facility] Address [address] [place] [address] Care Team Providers Care Border Machine Operator Name Role Phone Boris Mcnair DO Primary Care Provider [phone] Encounter Details Date Type Department Care Team (Late Contact Info) Description 08/29/2022 Orders Only [facility] Oncology and Hematology [facility] [address] [place] [address] Siobhan Bernal Encounter for screening for lung cancer Social [...] [facility] Oncology and [facility] [address] [place] [address] Chris Owens MD [address] [facility] [address] [place] [address] documented as of this encounter Visit Diagnoses Diagnosis Encounter for screening for lung cancer documented in this encounter Care Teams Border Machine Operator Relationship Specialty Start Date End Date Boris Mcnair DO [address] [place] [phone] PCP - General Internal Medicine 01/06/20 02/20/23 documented as of this encounter
--- OUTSIDE RECORDS SUMMARY | 2024-09-04 17:15 | XMS_ITS | Encounter Summary ---
Author Organization [facility] Address [address] [place] [address] Care Team Providers Care Senior It Architect Name Role Phone Boris Mcnair Primary Care Provider [phone] Reason for Referral * Radiology Services (Routine) - Closed Specialty Diagnoses / Procedures Referred By Evan bo Referred To Contact Diagnoses Visit for screening mammogram Procedures MAMMO SCREEN BILAT W OR WO CAD Chris Owens MD [address] [place] [address] [place] [address] Referral ID Status Reason Start Date Expiration Date V isits Requested Visits Authorized [id number] Closed STL CTS 02/23/2022 03/26/2023 1 1 * CT Scan (Routine) - Closed Specialty Diagnoses / Procedures Referred By Evan bo Referred To Contact Diagnoses Encounter for screening for lung cancer Procedures CT LUNG SCREENING (F/U DIAGNOSTIC) W CONTRAST Chris Owens MD [address] [place] [address] [place] [address] Referral ID Status Reason Start Date Expiration Date V isits Requested Visits Authorized [id number] Closed STL CTS 05/04/2022 09/15/2022 1 1 Reason for Visit * Reason Comments Follow Up F/U with labs Encounter Details Date Type Department Care Team (Late st Contact Info) Description 02/23/2022 12:00 PM CDT Office Visit [facility] Oncology and Hematology - [place] [address] [facility] [address] [place] [address] Chris Owens MD [address] [facility] [address] [place] [address] Visit for screening mammogram (Primary Dx); Encounter for screening for lung cancer; Hypercoagulable state Social History Tobacco Use Types [...] Sign Reading Time Taken Comments Blood Pressure 124/77 02/23/2022 11:52 AM CDT Pulse 71 02/23/2022 11:52 AM CDT Temperature 36.5 ??C (97.7 ??F) 02/23/2022 11:52 AM C DT Respiratory Rate - - Oxygen Saturation 98% 02/23/2022 11:52 AM CDT Inhaled Oxygen Concentration - - Weight 82.6 kg (182 lb) 02/23/2022 11:52 AM CDT Height 162.6 cm (5' 4 ) 02/23/2022 11:52 AM CDT Body Mass Index 31.24 02/23/2022 11:52 AM CDT documented in this encounter Progress Notes * Chris Owens MD - 02/23/2022 1:23 PM CDT HEMATOLOGY / ONCOLOGY PROGRESS NOTE Patient Identification: Name: Gege Vidal Age: 61 y.o. Sex: female : 1960 DIAGNOSIS Hypercoagulable [...] any chest pain or shortness of breath. Weight and appetite stable. No other new [...] 6.8 hemoglobin 13.4 platelet 249,000 creatinine 1.0 Assessment: Plan: Patient Active Problem List Diagnosis [...] left inguinal region consistent with inflammation. Clinically she remained stable and tolerating Xarelto well. She will receive refill on Xarelto today. Anemia. Hemoglobin stable. Breast cancer screening. Patient had a mammogram done on July 2021 came back negative for malignancy. We will repeat mammogram in 5 months. Lung cancer screening. She continues to smoke. Last screening CT chest was in July that came back with benign findings. We will repeat CT chest for screening in 5 months. Follow-up in 1 year. TOBACCO COUNSELING She was counseled to discontinue tobacco use. 02/23/2022 Chris Owens MD documented in this encounter Plan of Treatment Upcoming Encounters Date Type Department Care Team (Late st Contact Info) Description 12/04/2024 11:30 AM CDT Office Visit [facility] Oncology and Hematology - [place] [address] [facility] [address] [place] [address] Chris Owens MD [address] [facility] [address] [place] [address] Scheduled Orders Name Type Priority Associated Diagnoses Orde r Schedule CT LUNG SCREENING (F/U DIAGNOSTIC) W CONTRAST Imaging Routine Encounter for screening for lung cancer Expected: 07/26/2022, Expires: 02/23/2023 MAMMO SCREEN BILAT W OR WO CAD Imaging Routine Visit for screening mammogram Expected: 07/26/2022, Expires: 02/23/2023 documented as of this encounter Visit Diagnoses Diagnosis Visit for screening mammogram- Primary Other screening mammogram Encounter for screening for lung cancer Hypercoagulable state Primary hypercoagulable state documented in this encounter Care Teams Senior It Architect Relationship Specialty Start Date End Date Boris Mcnair DO [address] [place] [address] PCP - General Internal Medicine 01/06/20 02/20/23 documented as of this encounter
--- OUTSIDE RECORDS SUMMARY | 2024-09-04 17:15 | XMS_ITS | Encounter Summary ---
Author Organization [facility] [employer] [facility] Address [address] [place] [address] Care Team Providers Care Trapeze Artist Name Role Phone Eris Vu MD Primary Care Provider [phone] Reason for Referral * CT Scan (Routine) - Closed Specialty Diagnoses / Procedures Referred By Evan t Referred To Contact Diagnoses Encounter for screening for lung cancer Procedures CT LUNG SCREENING (F/U DIAGNOSTIC) W CONTRAST Chris Owens MD [address] [place] [address] [place] [address] Referral ID Status Reason Start Date Expiration Date V isits Requested Visits Authorized [id number] Closed STL CTS 02/24/2024 03/26/2025 1 1 Reason for Visit * Reason Comments Follow Up Encounter Details Date Type Department Care Team (Late st Contact Info) Description 02/24/2024 11:00 AM CDT Office Visit [facility] Oncology and Hematology [place] [address] [address] [facility] [address] [place] [address] Chris Owens MD [address] [place] [address] Chronic anemia (Primary Dx); Encounter for screening for lung cancer Social History Tobacco Use Types Packs/Day Years Used Date Smoking Tobacco: Every Day Cigarettes 1 38 Smokeless Tobacco: Never Tobacco Cessation:Ready to Q [...] Sign Reading Time Taken Comments Blood Pressure 118/70 02/24/2024 11:17 AM CDT Pulse 89 02/24/2024 11:17 AM CDT Temperature 36 ??C (96.8 ??F) 02/24/2024 11:17 AM CDT Respiratory Rate 14 02/24/2024 11:17 AM CDT Oxygen Saturation 95% 02/24/2024 11:17 AM CDT Inhaled Oxygen Concentration - - Weight - - Height - - Body Mass Index - - documented in this encounter Progress Notes * Chris Owens MD - 02/24/2024 12:05 PM CDT HEMATOLOGY / ONCOLOGY PROGRESS NOTE [...] into the office for follow-up visit. She went to the ER on January 01 with abdominal pain and CT scan was performed that showed diverticulitis. She is feeling much better without any diarrhea and abdominal discomfort. No bleeding and bruising. No other new complaints. Review of system Constitutional: denies fevers, sweats, weight and appetite stable, complain of tiredness and fatigue HEENT: denies sinus congestion, [...] No lymphadenopathy Neuro: No obvious focal deficit exam as above PATH LABS Labs from June [...] 6.5 hemoglobin 11.7 platelet 365,000 creatinine 1.1 Assessment: Plan: Patient Active Problem [...] well without any signs of bleeding. Anemia. Hemoglobin has dropped. Will check additional iron studies and vitamin B12 level with TSH today as she has been complaining of tiredness and fatigue. Phone visit in 1 week to discuss labs. Breast cancer screening. Patient had left breast diagnostic mammogram and ultrasound done on Februaryhowed no evidence of malignancy. Will perform bilateral screening mammogram in February 2025. Lung cancer screening. Patient has quit smoking. Will repeat CT scan in [address] scan was done in August 2023. TOBACCO COUNSELING She is not a tobacco/nicotine user. 02/24/2024 Chris Owens MD documented in this encounter Plan of Treatment Upcoming Encounters Date Type Department Care Team (Late st Contact Info) Description 12/04/2024 11:30 AM CDT Office Visit [facility] Oncology and Hematology [facility] [address] [facility] [address] [place] [address] Chris Owens MD [address] [facility] [address] [place] [address] Scheduled Orders Name Type Priority Associated Diagnoses Orde r Schedule FERRITIN Lab Routine Chronic anemia Expected: 02/24/2024, Expires: 02/23/2025 IRON, TIBC, AND PERCENT SATURATION Lab Routine Chronic anemia Expected: 02/24/2024, Expires: 02/23/2025 VITAMIN B12 AND FOLATE Lab Routine Chronic anemia Expected: 02/24/2024, Expires: 02/23/2025 TSH Lab Routine Chronic anemia Expected: 02/24/2024, Expires: 02/23/2025 CBC WITH DIFFERENTIAL Lab Stat Chronic anemia Expected: 08/25/2024, Expires: 02/23/2025 BASIC METABOLIC PANEL Lab Stat Chronic anemia Expected: 08/25/2024, Expires: 02/23/2025 CT LUNG SCREENING (F/U DIAGNOSTIC) W CONTRAST Imaging Routine Encounter for screening for lung cancer Expected: 08/25/2024, Expires: 02/23/2025 documented as of this encounter Visit Diagnoses Diagnosis Chronic anemia- Primary Anemia, unspecified Encounter for screening for lung cancer documented in this encounter Care Teams Trapeze Artist Relationship Specialty Start Date End Date Eris Vu MD PCP - General Family Practice 02/21/23 documented as of this encounter
--- OUTSIDE RECORDS SUMMARY | 2024-09-04 17:15 | XMS_ITS | Encounter Summary ---
Author Organization [facility] [employer] [facility] Address [address] [place] [address] Care Team Providers Care Contract Designer Name Role Phone Boris Mcnair DO Primary Care Provider [phone] Reason for Visit * Reason Comments Follow Up MMG f/u with labs an d Lung CT - New concerns- lump on groin Encounter Details Date Type Department Care Team (Late st Contact Info) Description 08/01/2020 2:00 PM GOVERNMENT GAUGER Office Visit [facility] Oncology and Hematology - [place] [address] [place] [address] [facility] [address] [place] [address] Chris Owens MD [address] [facility] [address] [place] [address] Hypercoagulable state (Primary Dx) Social History Tobacco Use Types [...] COVID-19? No / Unsure 08/01/2020 1:52 PM GOVERNMENT GAUGER documented as of this encounter Last Filed Vital Signs Vital Sign Reading Time Taken Comments Blood Pressure 134/64 08/01/2020 2:12 PM GOVERNMENT GAUGER Pulse 73 08/01/2020 2:12 PM GOVERNMENT GAUGER Temperature 36.7 ??C (98 ??F) 08/01/2020 2:12 PM GOVERNMENT GAUGER Respiratory Rate - - Oxygen Saturation 96% 08/01/2020 2:12 PM GOVERNMENT GAUGER Inhaled Oxygen Concentration - - Weight 86.8 kg (191 lb 4.8 oz) 08/01/2020 2:12 P M GOVERNMENT GAUGER Height 162.6 cm (5' 4 ) 08/01/2020 2:12 PM GOVERNMENT GAUGER Body Mass Index 32.84 08/01/2020 2:12 PM GOVERNMENT GAUGER documented in this encounter Progress Notes * Chris Owens MD - 08/01/2020 3:03 PM CST HEMATOLOGY / ONCOLOGY PROGRESS NOTE [...] into the office for follow-up visit. She developed a small lump in the left pubic and groin region with discomfort about a week ago. Patient had ultrasound of the left limb was done thatshowed no evidence of DVT on July 26, 2020. Denies any fevers and chills. Review of system Constitutional: denies fevers, sweats, [...] disturbed vision, numbness/weakness, dizziness Skin: No lumps, area of folliculitis/boil in the left pubic/groin area. 12 point review system was reviewed and [...] edema Skin: Skin color, texture, turgor normal. area of folliculitis/boil in the left pubic/groin area. Lymph nodes: No lymphadenopathy Neuro: No obvious [...] the left inguinal region consistent with inflammation. She will continue Xarelto 20 mg daily for lifelong duration. He is also taking folic acid. I will see her back in 6 months. Left groin folliculitis. I will start her on Keflex. Breast cancer screening. Mammogram was done July 18, 2020 showed no evidence of disease. Repeat mammogram will be done in 1 year. Lung cancer screening. Screening CT chest done in July 18 showed 4 mm right lower lobe nodule. We will repeat screening CT again in 12 months. TOBACCO COUNSELING She was counseled to discontinue tobacco use. 08/01/2020 Chris Owens MD RNMENT GAUGER documented in this encounter Plan of Treatment Upcoming Encounters Date Type Department Care Team (Late st Contact Info) Description 12/04/2024 11:30 AM CDT Office Visit [facility] Oncology and Hematology - [place] [address] [facility] [address] [place] [address] Chris Owens MD [address] [facility] [address] [place] [address] Scheduled Orders Name Type Priority Associated Diagnoses Orde r Schedule CBC WITH DIFFERENTIAL Lab Routine Hypercoagulable state Expected: 01/30/2021, Expires: 08/01/2021 COMPREHENSIVE METABOLIC PANEL Lab Routine Hypercoagulable state Expected: 01/30/2021, Expires: 08/01/2021 documented as of this encounter Visit Diagnoses Diagnosis Hypercoagulable state- Primary Primary hypercoagulable state documented in this encounter Care Teams Contract Designer Relationship Specialty Start Date End Date Boris Mcnair DO [address] [place] [address] PCP - General Internal Medicine 01/06/20 02/20/23 documented as of this encounter
--- OUTSIDE RECORDS SUMMARY | 2024-09-04 17:15 | XMS_ITS | Encounter Summary ---
Author Organization [facility] [email or web address] Address [address] [place] [address] Care Team Providers Care Sales And Service Advisor Name Role Phone Boris Mcnair DO Primary Care Provider [phone] Encounter Details Date Type Department Care Team (Late Contact Info) Description 03/11/2022 Orders Only [facility] Oncology [facility] Hematology [facility] [address] [place] [address] Chris Owens MD [facility] [address] [place] [address] Hypercoagulable state Social History Tobacco Use [...] [facility] Oncology [facility] H[facility]ology [facility] [address] [place] [address] Chris Owens MD [address] [place] [address] documented as of this encounter Visit Diagnoses Diagnosis Hypercoagulable state Primary hypercoagulable state documented in this encounter Care Teams Sales And Service Advisor Relationship Specialty Start Date End Date Boris Mcnair DO [address] [facility] [address] [place] [address] PCP - General Internal Medicine 01/06/20 02/20/23 documented as of this encounter
--- OUTSIDE RECORDS SUMMARY | 2024-09-04 17:15 | XMS_ITS | Encounter Summary ---
Author Organization [facility] [employer] Address [address] [place] [address] Care Team Providers Care Rehabilitation Services Manager Name Role Phone Boris Mcnair DO Primary Care Provider [phone] Encounter Details Date Type Department Care Team (Late Contact Info) Description 03/19/2022 Orders Only [facility] Oncology [facility] Hematology [facility] [address] [place] [address] Chris Owens MD [facility] [employer] [address] [place] [address] Hypercoagulable state Social History Tobacco Use [...] 11:30 AM CDT Office Visit [facility] Oncology and Hematology [facility] [address] [place] [address] Chris Owens MD [address] [employer] [address] [place] [address] documented as of this encounter Visit Diagnoses Diagnosis Hypercoagulable state Primary hypercoagulable state documented in this encounter Care Teams Rehabilitation Services Manager Relationship Specialty Start Date End Date Boris Mcnair DO [address] [facility] [address] [place] [address] PCP - General Internal Medicine 01/06/20 02/20/23 documented as of this encounter
--- OUTSIDE RECORDS SUMMARY | 2024-09-04 17:15 | XMS_ITS | Encounter Summary ---
Author Organization [facility] [employer] [facility] Address [address] [place] [address] Care Team Providers Care Field Crop Harvest Worker Name Role Phone Eris Vu MD Primary Care Provider [phone] Encounter Details Date Type Department Care Team (Late Contact Info) Description 02/22/2023 Orders Only [facility] Oncology and Hematology [facility] [address] [place] [address] Chris Owens MD [address] [place] [address] [employer] [address] [address] Social History Tobacco Use Types [...] CDT Office Visit [facility] Oncology and Hematology - [place] [address] [place] [address] Chris Owens MD [address] [place] [address] [employer] [address] [place] [address] documented as of this encounter Procedures Procedure Name Priority Date/Time Associated Diagnosis Comments BASIC METABOLIC PANEL Routine 02/21/2023 9:34 AM CDT COMPREHENSIVE METABOLIC PANEL Routine 02/21/2023 9:08 AM CDT documented in this encounter Results * BASIC METABOLIC PANEL (02/21/2023 9:34 AM CDT) Blood Chris Owens MD CHEMISTRY ORDERABLES * COMPREHENSIVE METABOLIC PANEL (02/21/2023 9:08 AM CDT) Blood Chris Owens MD CHEMISTRY ORDERABLES documented in this encounter Visit Diagnoses Not on filedocumented in this encounter Care Teams Field Crop Harvest Worker Relationship Specialty Start Date End Date Eris Vu MD PCP - General Family Practice 02/21/23 documented as of this encounter
--- OUTSIDE RECORDS SUMMARY | 2024-09-04 17:15 | XMS_ITS | Encounter Summary ---
Author Organization [facility] [employer] [facility] Address [address] [place] [address] Care Team Providers Care Certified Travel Counselor Name Role Phone Eris Vu MD Primary Care Provider [phone] Encounter Details Date Type Department Care Team (Late Contact Info) Description 02/17/2024 Orders Only [facility] Oncology and Hematology [facility] [address] [place] [address] Chris Owens MD [address] [place] [address] [employer] [address] [address] Social History Tobacco Use Types [...] Oncology and Hematology [place] [address] [place] [address] Chris Owens MD [address] [place] [address] [employer] [address] [place] [address] documented as of this encounter Procedures Procedure Name Priority Date/Time Associated Diagnosis Comments MAMMO BILAT DIAGNOSTIC Routine 02/17/2024 1:15 PM CDT documented in this encounter Results * MAMMO BILAT DIAGNOSTIC (02/17/2024 1:15 PM CDT) Anatomical Region Laterality Modality Breast Bilateral Other Chris Owens MD MAMMO ORDERABLES documented in this encounter Visit Diagnoses Not on filedocumented in this encounter Care Teams Certified Travel Counselor Relationship Specialty Start Date End Date Eris Vu MD PCP - General Family Practice 02/21/23 documented as of this encounter
--- OUTSIDE RECORDS SUMMARY | 2024-09-04 17:15 | XMS_ITS | Encounter Summary ---
Author Organization [facility] [employer] [facility] Address [address] [place] [address] Care Team Providers Care Automobile Repossessor Name Role Phone Eris Vu MD Primary Care Provider [phone] Reason for Visit * Reason Comments Med Refill Encounter Details Date Type Department Care Team ([facility] Contact Info) Description 11/20/2023 Refill [facility] ([facility]3] Oncology and Hematology - [place] [address] [place] [address] Chris Owens MD [facility] [employer] [address] [place] [address] Social History Tobacco Use Types Packs/Day [...] Upcoming Encounters Date Type Department Care Team ([facility] Contact Info) Description 12/04/2024 11:30 AM CDT Office Visit [facility] ([facility]3] Oncology and Hematology - [place] [address] [place] [address] Chris Owens MD [facility] [employer] [address] [place] [address] documented as of this encounter Visit Diagnoses Not on filedocumented in this encounter Care Teams Automobile Repossessor Relationship Specialty Start Date End Date Eris Vu MD PCP - General Family Practice 02/21/23 documented as of this encounter
--- OUTSIDE RECORDS SUMMARY | 2024-09-04 17:15 | XMS_ITS | Encounter Summary ---
Author Organization [facility] Address [address] [place] [address] Care Team Providers Care Medical Housekeeper Name Role Phone Eris Vu MD Primary Care Provider [phone] Encounter Details Date Type Department Care Team (Late st Contact Info) Description 11/04/2023 External Device Data STL ABSTRACTION Provider, Abstract [...] [facility] - [place] [address] [place] [address] [facility] [address] [place] [address] Chris Owens MD [address] [employer] [place] [address] [place] [address] documented as of this encounter Visit Diagnoses Not on filedocumented in this encounter Care Teams Medical Housekeeper Relationship Specialty Start Date End Date Eris Vu MD PCP - General Family Practice 02/21/23 documented as of this encounter
--- OUTSIDE RECORDS SUMMARY | 2024-09-04 17:15 | XMS_ITS | Encounter Summary ---
Author Organization [facility] [employer] [facility] Address [address] [place] [address] Care Team Providers Care Toaster Element Repairer Name Role Phone Eris Vu MD Primary Care Provider [phone] Encounter Details Date Type Department Care Team (Late Contact Info) Description 02/24/2024 Orders Only [facility] Oncology and Hematology [facility] [address] [place] [address] Chris Owens MD [facility]ologic [address] [place] [address] Hypercoagulable state (Primary Dx) Social History [...] 12/04/2024 11:30 AM CDT Office Visit [facility] Oncology and Hematology - [place] [address] [place] [address] Chris Owens MD [address] [place], [place] [address]M[place] [address] [place] [address] Scheduled Orders Name Type Priority Associated Diagnoses Orde r Schedule CBC WITH DIFFERENTIAL Lab Routine Hypercoagulable state Expected: 02/24/2024, Expires: 02/23/2025 documented as of this encounter Visit Diagnoses Diagnosis Hypercoagulable state- Primary Primary hypercoagulable state documented in this encounter Care Teams Toaster Element Repairer Relationship Specialty Start Date End Date Eris Vu MD PCP - General Family Practice 02/21/23 documented as of this encounter
--- OUTSIDE RECORDS SUMMARY | 2024-09-04 17:15 | XMS_ITS | Encounter Summary ---
Author Organization [facility] [employer] [facility] Address [address] [place] [address] Care Team Providers Care Machinist Tool And Die Name Role Phone Eris Vu MD Primary Care Provider [phone] Reason for Visit * Reason Comments Med Refill Encounter Details Date Type Department Care Team ([facility] Contact Info) Description 02/20/2024 [address] [facility] Oncology and Hematology - [place] [address] [place] [address] Chris Owens MD [facility] [employer] [address] [place] [address] Social History Tobacco Use Types Packs/Day [...] Upcoming Encounters Date Type Department Care Team ([facility] Contact Info) Description 12/04/2024 11:30 AM CDT Office Visit [facility] Oncology and Hematology - [place] [address] [place] [address] Chris Owens MD [facility] [employer] [address] [place] [address] documented as of this encounter Visit Diagnoses Not on filedocumented in this encounter Care Teams Machinist Tool And Die Relationship Specialty Start Date End Date Eris Vu MD PCP - General Family Practice 02/21/23 documented as of this encounter
--- OUTSIDE RECORDS SUMMARY | 2024-09-04 17:15 | XMS_ITS | Encounter Summary ---
Author Organization [facility] [email or web address] [facility] Address [address] [place] [address] Care Team Providers Care Coding Spec Name Role Phone Boris Mcnair DO Primary Care Provider [phone] Encounter Details Date Type Department Care Team ([facility] Contact Info) Description 02/07/2021 Orders Only [facility] Oncology and Hematology [place] [address] [place] [address] Provider, Abstract NO ADDRESS ON [...] Description 12/04/2024 11:30 AM CDT Office Visit [facility] Oncology and Hematology - [place] [address] [place] [address] Chris Owens MD [address] [facility] [address] [place] [address] documented as of this encounter Procedures Procedure Name Priority Date/Time Associated Diagnosis Comments BASIC METABOLIC PANEL Routine 01/30/2021 documented in this encounter Results * BASIC METABOLIC PANEL (01/30/2021) Blood Abstract Provider CHEMISTRY ORDERABLES documented in this encounter Visit Diagnoses Not on filedocumented in this encounter Care Teams Coding Spec Relationship Specialty Start Date End Date Boris Mcnair DO [address] [facility] [address] [place] [phone] PCP - General Internal Medicine 01/06/20 02/20/23 documented as of this encounter
--- OUTSIDE RECORDS SUMMARY | 2024-09-04 17:15 | XMS_ITS | Encounter Summary ---
Author Organization [facility] [employer] [facility] Address [address] [place] [address] Care Team Providers Care Care Coordinator Name Role Phone Boris Mcnair DO Primary Care Provider [phone] Encounter Details Date Type Department Care Team (Late Contact Info) Description 02/07/2021 Orders Only [facility] Oncology [facility] Hematology [facility] [address] [place] [address] Chris Owens MD [address] [place] [address] Hypercoagulable state Social History Tobacco Use [...] Office Visit [facility] Oncology and Hematology [facility] [address] [place] [address] Chris Owens MD [address] [place] [address] documented as of this encounter Visit Diagnoses Diagnosis Hypercoagulable state Primary hypercoagulable state documented in this encounter Care Teams Care Coordinator Relationship Specialty Start Date End Date Boris Mcnair DO [address] [facility] [address] [place] [address] PCP - General Internal Medicine 01/06/20 02/20/23 documented as of this encounter
--- OUTSIDE RECORDS SUMMARY | 2024-09-04 17:15 | XMS_ITS | Encounter Summary ---
Author Organization [facility] [employer] [facility] Address [address] [place] [address] Care Team Providers Care Production Cost Estimator Name Role Phone Eris Vu MD Primary Care Provider [phone] Encounter Details Date Type Department Care Team (Late Contact Info) Description 09/04/2023 Orders Only [facility] Oncology and Hematology [facility] [address] [place] [address] Chris Owens MD [address] [place] [address] [employer] [address] [address] Social History Tobacco Use Types [...] 12/04/2024 11:30 AM CDT Office Visit [facility] Oncology and Hematology [facility] [address] [place] [address] Chris Owens MD [address] [place] [address] [employer] [address] [place] [address] documented as of this encounter Procedures Procedure Name Priority Date/Time Associated Diagnosis Comments MAMMO DIAGNOSTIC UNI LEFT W OR WO CAD Routine 09/03/2023 1:34 PM CONTENT DEVELOPER documented in this encounter Results * MAMMO DIAGNOSTIC UNI LEFT W OR WO CAD (09/03/2023 1:34 PM CONTENT DEVELOPER) Anatomical Region Laterality Modality Breast Left Other Chris Owens MD MAMMO ORDERABLES documented in this encounter Visit Diagnoses Not on filedocumented in this encounter Care Teams Production Cost Estimator Relationship Specialty Start Date End Date Eris Vu MD PCP - General Family Practice 02/21/23 documented as of this encounter
--- OUTSIDE RECORDS SUMMARY | 2024-09-04 17:15 | XMS_ITS | Encounter Summary ---
Author Organization [facility] [employer] [facility] Address [address] [place] [address] Care Team Providers Care Escapement Maker Name Role Phone Boris Mcnair DO Primary Care Provider [phone] Reason for Visit * Reason Onset Date Comments lab orders 02/26/2022 Encounter Details Date Type Department Care Team ([facility] Contact Info) Description 02/26/2022 Telephone [facility] Oncology [facility] [address] [place] [address] Chris Owens MD [address] [place] [address] lab orders Social History Tobacco Use Types Packs/Day Years [...] Description 12/04/2024 11:30 AM CDT Office Visit [facility] Oncology [facility] Hematology [facility] [address] [place] [address] Chris Owens MD [address] [place] [address] Scheduled Orders Name Type Priority Associated Diagnoses Orde r Schedule CBC WITH DIFFERENTIAL Lab Routine Hypercoagulable state Expected: 02/26/2022, Expires: 02/26/2023 COMPREHENSIVE METABOLIC PANEL Lab Routine Hypercoagulable state Expected: 02/26/2022, Expires: 02/26/2023 documented as of this encounter Visit Diagnoses Diagnosis Hypercoagulable state- Primary Primary hypercoagulable state documented in this encounter Care Teams Escapement Maker Relationship Specialty Start Date End Date Boris Mcnair DO [address] [place] [address] PCP - General Internal Medicine 01/06/20 02/20/23 documented as of this encounter
--- OUTSIDE RECORDS SUMMARY | 2024-09-04 17:15 | XMS_ITS | Encounter Summary ---
Author Organization [facility] [employer] [facility] Address [address] [place] [address] Care Team Providers Care Lvn Name Role Phone Eris Vu MD Primary Care Provider [phone] Reason for Referral * Radiology Services (Routine) - Closed Specialty Diagnoses / Procedures Referred By Evan bo Referred To Contact Diagnoses Abnormal mammogram of left breast Procedures US BREAST UNI LEFT COMPLETE Chris Owens MD [address] [email or web address] [address] [address] [place] [address] Referral ID Status Reason Start Date Expiration Date V isits Requested Visits Authorized [id number] Closed [facility] CTS 09/12/2023 10/12/2024 1 1 OR PROPERTY ACCOUNTANT * Radiology Services (Routine) - Closed Specialty Diagnoses / Procedures Referred By Evan bo Referred To Contact Diagnoses Abnormal mammogram of left breast Procedures MAMMO DIAGNOSTIC UNI LEFT W OR WO CAD Chris Owens MD [facility] [email or web address] [address] [address] [place] [address] Referral ID Status Reason Start Date Expiration Date V isits Requested Visits Authorized [id number] Closed [facility] CTS 09/12/2023 10/12/2024 1 1 OR PROPERTY ACCOUNTANT Encounter Details Date Type Department Care Team (Late st Contact Info) Description 09/12/2023 Orders Only [facility] Oncology and Hematology - [address] [address] Chris Owens MD [address] [facility] [address] [place] [phone] Abnormal mammogram of left breast (Primary Dx) [...] [facility] Oncology and Hematology [facility] [address] [facility] [address] [place] [address] [place] [address] [place] [phone] Scheduled Orders Name Type Priority Associated Diagnoses Orde r Schedule MAMMO DIAGNOSTIC UNI LEFT W OR WO CAD Imaging Routine Abnormal mammogram of left breast Expected: 09/12/2023, Expires: 03/13/2025 US BREAST UNI LEFT COMPLETE Imaging Routine Abnormal mammogram of left breast Expected: 09/12/2023, Expires: 09/12/2024 documented as of this encounter Visit Diagnoses Diagnosis Abnormal mammogram of left breast- Primary documented in this encounter Care Teams Lvn Relationship Specialty Start Date End Date Eris Vu MD PCP - General Family Practice 02/21/23 documented as of this encounter
--- OUTSIDE RECORDS SUMMARY | 2024-09-04 17:15 | XMS_ITS | Encounter Summary ---
Author Organization [facility] Address [address] [facility] Attn: Epic Prelude ADT [place] [address] Care Team Providers Care Library Cataloging Technician Name Role Phone Boris Mcnair DO Primary Care Provider [phone] Encounter Details Date Type Department Care Team (Latest Contact Info) Description 07/26/2020 Travel Social History Tobacco Use Types Packs/Day [...] COVID-19? No / Unsure 07/26/2020 8:03 AM SENIOR CHEMICAL ENGINEER documented as of this encounter Plan of Treatment Upcoming Encounters Date Type Department Care Team (Late st Contact Info) Description 12/04/2024 11:30 AM CDT Office Visit [facility] Oncology and Hematology - [place] [address] [facility] [address] [place] [address] Chris Owens MD [address] [facility] [place] [address] [place] [address] documented as of this encounter Visit Diagnoses Not on filedocumented in this encounter Care Teams Library Cataloging Technician Relationship Specialty Start Date End Date Boris Mcnair DO [address] [place] [address] PCP - General Internal Medicine 01/06/20 02/20/23 documented as of this encounter
--- OUTSIDE RECORDS SUMMARY | 2024-09-04 17:15 | XMS_ITS | Encounter Summary ---
Author Organization [facility] Address [address] [facility] Attn: Epic Prelude ADT [place] [address] Care Team Providers Care Protection Analyst Name Role Phone Boris Mcnair DO Primary Care Provider [phone] Encounter Details Date Type Department Care Team (Latest Contact Info) Description 08/01/2020 Travel Social History Tobacco Use Types Packs/Day [...] COVID-19? No / Unsure 08/01/2020 1:52 PM LEAD WEB APPLICATION DEVELOPER documented as of this encounter Plan of Treatment Upcoming Encounters Date Type Department Care Team (Late st Contact Info) Description 12/04/2024 11:30 AM CDT Office Visit [facility] Oncology and Hematology - Aroldo [address] [facility] [address] [place] [address] Chris Owens MD [address] [facility] [address] [place] [address] documented as of this encounter Visit Diagnoses Not on filedocumented in this encounter Care Teams Protection Analyst Relationship Specialty Start Date End Date Boris Mcnair DO [address] [place] [address] PCP - General Internal Medicine 01/06/20 02/20/23 documented as of this encounter
--- OUTSIDE RECORDS SUMMARY | 2024-09-04 17:15 | XMS_ITS | Encounter Summary ---
Author Organization [facility] Address [address] [place] [address] Care Team Providers Care Wired Sweatband Cutter Name Role Phone Eris Vu MD Primary Care Provider [phone] Encounter Details Date Type Department Care Team (Late st Contact Info) Description 10/09/2023 External Device Data STL ABSTRACTION Provider, Abstract [...] 12/04/2024 11:30 AM CDT Office Visit [facility] Oncology and Hematology - [place] [address] [place] [address] [facility] [address] [place] [address] Chris Owens MD [address] [facility] [address] [place] [address] documented as of this encounter Visit Diagnoses Not on filedocumented in this encounter Care Teams Wired Sweatband Cutter Relationship Specialty Start Date End Date Eris Vu MD PCP - General Family Practice 02/21/23 documented as of this encounter
--- OUTSIDE RECORDS SUMMARY | 2024-09-04 17:15 | XMS_ITS | Encounter Summary ---
Author Organization [facility] Address [address] [place] [address] Care Team Providers Care Wire Sawyer Name Role Phone Eris Vu MD Primary Care Provider [phone] Encounter Details Date Type Department Care Team (Late Contact Info) Description 02/25/2024 Orders Only [facility] Oncology and Hematology [place] [address] [place] [address] Chris Owens MD [address] [place] [address] [employer] [address] [address] Social History Tobacco Use Types [...] [facility] Oncology and Hematology - [place] [address] [place] [address] Chris Owens MD [address] [place] [address] [employer] [address] [address] documented as of this encounter Procedures Procedure Name Priority Date/Time Associated Diagnosis Comments IRON, TIBC, AND PERCENT SATURATION Routine 02/24/2024 2:06 PM CDT documented in this encounter Results * IRON, TIBC, AND PERCENT SATURATION (02/24/2024 2:06 PM CDT) Blood Chris Owens MD CHEMISTRY ORDERABLES documented in this encounter Visit Diagnoses Not on filedocumented in this encounter Care Teams Wire Sawyer Relationship Specialty Start Date End Date Eris Vu MD PCP - General Family Practice 02/21/23 documented as of this encounter
--- OUTSIDE RECORDS SUMMARY | 2024-09-04 17:15 | XMS_ITS | Encounter Summary ---
Author Organization [facility] Address [address] [place] [address] Care Team Providers Care Bridge Mechanic Name Role Phone Eris Vu MD Primary Care Provider [phone] Encounter Details Date Type Department Care Team (Late st Contact Info) Description 11/29/2023 External Device Data STL ABSTRACTION Provider, Abstract [...] Description 12/04/2024 11:30 AM CDT Office Visit [facility] Oncology and Hematology - [place] [address] [place] [address] [facility] [address] [place] [address] Chris Owens MD [address] [facility] [address] [place] [address] documented as of this encounter Visit Diagnoses Not on filedocumented in this encounter Care Teams Bridge Mechanic Relationship Specialty Start Date End Date Eris Vu MD PCP - General Family Practice 02/21/23 documented as of this encounter
--- OUTSIDE RECORDS SUMMARY | 2024-09-04 17:15 | XMS_ITS | Encounter Summary ---
Author Organization [facility] [employer] [facility] Address [address] [place] [address] Care Team Providers Care Twister In Name Role Phone Eris Vu MD Primary Care Provider [phone] Reason for Visit * Reason Onset Date Comments Results 08/28/2023 Encounter Details Date Type Department Care Team (Late st Contact Info) Description 08/28/2023 Telephone [facility] Oncology and Hematology - [place]ldo [address] [facility] [address] [place] [address] Chris Owens MD [address] [facility] [address] [place] [address] Results Social History Tobacco Use Types Packs/Day Years [...] * Telephone Encounter - Siobhan Bernal - 08/28/2023 8:43 AM CST Patient aware of results. ----- Message from Chris Owens MD sent at 08/27/2023 4:54 PM ROUTE INSPECTOR ----- Regarding: RE: Lung Screening CT lung cancer screening normal. Repeat screening will be done in 1 year. ----- Message ----- From: Siobhan Bernal Sent: 08/27/2023 3:07 PM ROUTE INSPECTOR To: Chris Owens MD Subject: Lung Screening Could you please look over lung screening? Patient is calling and wanting to know what her results are. She does not follow up until February of 2024. E INSPECTOR documented in this encounter Plan of Treatment Upcoming Encounters Date Type Department Care Team (Late st Contact Info) Description 12/04/2024 11:30 AM CDT Office Visit [facility] Oncology and Hematology - [place] [address] [facility] [address] [place] [address] Chris Owens MD [address] [facility] [address] [place] [address] documented as of this encounter Visit Diagnoses Not on filedocumented in this encounter Care Teams Twister In Relationship Specialty Start Date End Date Eris Vu MD PCP - General Family Practice 02/21/23 documented as of this encounter
--- OUTSIDE RECORDS SUMMARY | 2024-09-04 17:16 | XMS_ITS | Encounter Summary ---
Author Organization [facility] Address [address] [place] [address] Care Team Providers Care Counselor Education Professor Name Role Phone Boris Mcnair Primary Care Provider [phone] Reason for Referral * CT Scan (Routine) - Closed Specialty Diagnoses / Procedures Referred By Evan bo Referred To Contact Diagnoses Nicotine dependence, cigarettes, uncomplicated Procedures CT LUNG SCREENING (FOLLOW UP LOW DOSE) Chris Owens MD [address] [id number] [address] Referral ID Status Reason Start Date Expiration Date Visits Requested Visits Authorized [id number] Closed Ordering Department To Schedule 01/06/2020 02/05/2021 1 1 * Outpatient Services (Routine) - Closed Specialty Diagnoses / Procedures Referred By Evan t Referred To Contact Diagnoses Visit for screening mammogram Procedures MAMMO SCREEN BILAT W OR WO CAD Chris Owens MD [address] [employer] [place] [phone] [address] Referral ID Status Reason Start Date Expiration Date Visits Requested Visits Authorized [id number] Closed Ordering Department To Schedule 01/06/2020 02/05/2021 1 1 Reason for Visit * Reason Comments Follow Up [address]/mmg Encounter Details Date Type Department Care Team (Late st Contact Info) Description 01/06/2020 8:30 AM CDT Office Visit [facility] Oncology and Hematology - [place] [address] [facility] [address] [place] [address] Chris Owens MD [address] [facility] [address] [place] [address] Visit for screening mammogram (Primary Dx); Nicotine dependence, cigarettes, uncomplicated; Encounter for screening for lung cancer; Chronic embolism and thrombosis of unspecified deep veins of right lower extremity; Other primary thrombophilia Social History Tobacco Use Types Packs/Day Years [...] have Coronavirus / COVID-19? No / Unsure 01/06/2020 8:04 AM CDT documented as of this encounter Last Filed Vital Signs Vital Sign Reading Time Taken Comments Blood Pressure 132/62 01/06/2020 8:29 AM CDT Pulse 68 01/06/2020 8:29 AM CDT Temperature 36.2 ??C (97.2 ??F) 01/06/2020 8:29 AM CD T Respiratory Rate - - Oxygen Saturation 95% 01/06/2020 8:29 AM CDT Inhaled Oxygen Concentration - - Weight 80.4 kg (177 lb 4.8 oz) 01/06/2020 8:29 A M CDT Height 162.6 cm (5' 4 ) 01/06/2020 8:29 AM CDT Body Mass Index 30.43 01/06/2020 8:29 AM CDT documented in this encounter Progress Notes * Chris Owens MD - 01/06/2020 9:06 AM CDT HEMATOLOGY / ONCOLOGY PROGRESS NOTE Patient Identification: Name: Gege Vidal Age: 59 y.o. Sex: female : 1960 DIAGNOSIS Hypercoagulable [...] office for follow-up visit. She denies any chest pain and shortness of breath. Denies any abdominal pain. Denies any bleeding and bruising. No leg swelling. No new lumps bumps or lymphadenopathy. No other new complaints. Review of system [...] disturbed vision, numbness/weakness, dizziness Skin: No lumps, bumps or rashes. 12 point review system was reviewed and [...] edema Skin: Skin color, texture, turgor normal. No rashes or lesions Lymph nodes: No lymphadenopathy Neuro: No obvious focal deficit Examination as above [facility] Labs from June 2019 showed WBC 6.1 hemoglobin 13.4 platelet 266,000 creatinine 1.0. Labs from January 05 showed WBC 6.3 hemoglobin 14 platelet 298,000. Assessment: Plan: Patient Active Problem List Diagnosis Date Noted ??? Chronic embolism and thrombosis of unspecified deep veins of right lower extremity 01/06/2020 ??? Diverticulitis 03/24/2018 ??? Secondary hypercoagulable state 11/15/2017 ??? Tobacco use 11/15/2017 Hypercoagulable state with recurrent DVT, stroke and TIA. Previous work-up showed elevated homocystine level and positive lupus anticoagulant. There is no evidence of thromboembolic event at this time. Patient will continue Xarelto 20 mg daily along with folic acid. She will receive a refill on her Xarelto and folic acid. She will continue long-term anticoagulation therapy. I will see her back in 6 months. Breast cancer screening. She will have repeated screening mammogram done in 6 months. It is ordered. Lung cancer screening. She has not been a smoking hardly when under stress. I will repeat the CT chest for screening in 6 months. Follow-up in 6 months. TOBACCO COUNSELING She was counseled to discontinue tobacco use. 01/06/2020 Chris Owens MD documented in this encounter Plan of Treatment Upcoming Encounters Date Type Department Care Team (Late st Contact Info) Description 12/04/2024 11:30 AM CDT Office Visit [facility] Oncology and Hematology - [place] [address] [facility] [address] [place] [address] Chris Owens MD [address] [facility] [address] [place] [address] documented as of this encounter Results * COMPREHENSIVE METABOLIC PANEL (08/01/2020) Blood Chris Owens MD CHEMISTRY ORDERABLES NON [facility] * CBC WITH DIFFERENTIAL (08/01/2020) Blood Chris Owens MD HEMATOLOGY ORDERABLE S [facility] * CT LUNG SCREENING (FOLLOW UP LOW DOSE) (07/18/2020) Anatomical Region Laterality Modality Chest Other Chris Owens MD CT ORDERABLES * MAMMO SCREEN BILAT W OR WO CAD (07/18/2020) Anatomical Region Laterality Modality Breast Bilateral Other Chris Owens MD MAMMO ORDERABLES documented in this encounter Visit Diagnoses Diagnosis Visit for screening mammogram- Primary Other screening mammogram Nicotine dependence, cigarettes, uncomplicated Encounter for screening for lung cancer Chronic embolism and 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
--- OUTSIDE RECORDS SUMMARY | 2024-09-04 17:16 | XMS_ITS | Encounter Summary ---
Author Organization [facility] Address [address] [place] [address] Care Team Providers Care Studio Artist Name Role Phone Dominic Fernando MD Primary Care Provider + Reason for Visit * Reason Comments Follow Up Encounter Details Date Type Department Care Team (Late st Contact Info) Description 09/05/2018 10:15 AM SIDER MECHANIC Office Visit [facility] Oncology and Hematology - [place] [address] [facility] [address] [place] [address] Chris Owens MD [address] [facility] [address] [place] [address] Hypercoagulable state (Primary Dx) Social History Tobacco Use Types Packs/Day Years Used Date Smoking Tobacco: Every Day Cigarettes 0.3 30 Smokeless Tobacco: Never Alcohol Use Standard Drinks/Week Comments No 0 (1 standard drink = 0.6 oz pur e alcohol) Sex and Gender Information Value Date Recorded Sex Assigned at Not on file Gender Identity Not on file Sexual Orientation Not on file documented as of this encounter Last Filed Vital Signs Vital Sign Reading Time Taken Comments Blood Pressure 118/66 09/05/2018 10:54 AM SIDER MECHANIC Pulse 80 09/05/2018 10:54 AM SIDER MECHANIC Temperature 36.4 ??C (97.5 ??F) 09/05/2018 10:[address] Respiratory Rate 18 09/05/2018 10:54 AM SIDER MECHANIC Oxygen Saturation 96% 09/05/2018 10:54 AM SIDER MECHANIC Inhaled Oxygen Concentration - - Weight 84.8 kg (187 lb) 09/05/2018 10:54 AM SIDER MECHANIC Height 162.6 cm (5' 4 ) 09/05/2018 10:54 AM SIDER MECHANIC Body Mass Index 32.1 09/05/2018 10:54 AM SIDER MECHANIC documented in this encounter Progress Notes * Chris Owens MD - 09/05/2018 12:55 PM CST HEMATOLOGY / ONCOLOGY PROGRESS NOTE Patient Identification: Name: Gege Vidal Age: 58 y.o. Sex: female : 1960 Subjective: HPI This is a pleasant 57-year-old slightly obese female with history of smoking along with history of recurrent DVTs referred to me for genetic testing for any future blood clots. According tothe patient he was diagnosed to have right lower extremity DVT at age of 20 when she fell and was started on Coumadin. Her next blood clot was in late 20s when she had left arm DVT status post fall again and was treated with Coumadin. She then had DVT involving the right lower extremity more than 10 years ago and was again treated with Coumadin. She denies any chest pain and shortness of breath. She had bilateral chronic lower extremity swelling along with bilateral knee pain. She had Doppler studies performed on October 09, 2017 that showed no evidence of DVT involving either of the limbs. She is concerned about her future risk of blood clot given the history of personal DVT and family history of blood clotting disorder. She is not very active in her life is style. She is also not takingany female hormone replacement therapy. Interval History: Patient was admitted to the hospital on February 01, 2018 with stroke. She was discharged home on Xarelto. Review of system Constitutional: No fever; no night sweats; no anorexia; no weight loss; Respiratory: No shortness of breath; no pleuritic chest pain; no cough; no hemoptysis Cardiac: No cardiac-like chest pain; no palpitations; no orthopnea; no PND; no LEVIN GI: No abdominal pain; no nausea; no vomiting; no diarrhea; no hematochezia; no melena Musculosketetal: no bone pain; no arthralgia; no joint swelling; no myalgia; Neuro: No headache; no change in vision; no sensory changes; no muscle weakness; no confusion; no seizures Ext no edema Objective: Vital signs in last 24 hours: As per nursing note Exam: Gen: NAD Lungs: Clear Cardiac: S1 and S2 without murmurs or gallops Abd: Soft, tender, no hepatomegally, no masses Extr: No LE edema Scheduled Meds:@[email or web address]@ Continuous Infusions:@MEDSINFUSIONS@ Data Review: [facility] labs from November 15 showed antithrombin III normal at 117, protein C 147, protein S 92, lupus anticoagulant PTT 42, beta-2 glycoprotein negative, anticardiolipin antibody negative, homocystine elevated at 14.3. Assessment: Plan: Patient Active Problem List Diagnosis Date Noted ??? Diverticulitis 03/24/2018 ??? Secondary hypercoagulable state 11/15/2017 ??? Tobacco use 11/15/2017 Hypercoagulable state with personal history of recurrent DVT and family history of blood clotting disorder. According to the patient she was originally diagnosed to have DVT involving right lower extremity at age of 20 and status post fall. Her next DVT was in her late 20s when she had a fall and had DVT involving the left upper extremity. Her most recent DVT was more than 10 years ago involving the right lower extremity. She also has a family history of blood clotting disorder with pulmonary embolism in one of the sister. Her father of heart attack. One brother also has blood clots. Shehad Doppler studies done on October 09 due to chronic swelling of the bilateral lower extremity that showed no evidence of DVT. I have performed the hypercoagulable workup that only showed elevated homocysteine level. Patient was recently admitted to the hospital on February 01 with dizziness and found to have an embolicstroke. MRI showed several scattered tiny foci of acute cortical infarct in the left frontal and parietal lobes. CT angiogram showed 70% stenosis of the left common carotid artery. Patient was started on Xarelto and baby aspirin was started as well. Lupus anticoagulant testing came back positive.Repeat lupus anticoagulant testing done on July 25, 2015 came back negative. Homocystine level came down to normal. Patient will continue folic acid 1 mg daily. I will continue Xarelto and baby aspirin.Doppler studies done on July 21, 2018 showed no evidence of DVT. She will continue aspirin and Xarelto due to her previous history of thromboembolic events. Right knee arthritis. She will hold Xarelto 2 days prior and aspirin 7 days prior to the knee replacement. History of hematuria. Patient has been followed by in urology. CT chest abdomen and pelvis done on July 08 showed no evidence of pulmonary embolism. There were some diverticulitis. ? 09/05/2018 Chris Owens MD R MECHANIC documented in this encounter Plan of Treatment Upcoming Encounters Date Type Department Care Team (Late st Contact Info) Description 12/04/2024 11:30 AM CDT Office Visit [facility] Oncology and Hematology [facility] [address] [place] [address] Chris Owens MD [address] [facility] [address] [place] [address] documented as of this encounter Results * BASIC METABOLIC PANEL (01/05/2019) Blood Chris Owens MD CHEMISTRY ORDERABLES Performing Organization Address City/[facility]/ZIP Co de Phone Number EXTERNAL LAB * CBC WITH DIFFERENTIAL (01/05/2019) Blood Chris Owens MD HEMATOLOGY ORDERABLE S EXTERNAL LAB documented in this encounter Visit Diagnoses Diagnosis Hypercoagulable state- Primary Primary hypercoagulable state documented in this encounter Care Teams Studio Artist Relationship Specialty Start Date End Date Dominic Fernando MD [address] [place] [address] PCP - General Internal Medicine 11/15/17 01/05/20 documented as of this encounter
--- OUTSIDE RECORDS SUMMARY | 2024-09-04 17:16 | XMS_ITS | Continuity of Care Document ---
Author Organization [facility] Address [address] [facility] [address] [place] [address] Phone Care Team Providers Care Facility Coordinator Name Role Phone Unavailable Unavailable Unavailable Advance Directives Directive Yes / No Effective Date File Name No Information Encounters Encounter Description Practice Location Reason(s) For Visit Diagnoses Date Provider Providers Copied on Encounter [facility], [address], [place], [place], [id number], [place] tel:[phone] QIK [facility][note 3] No Information Mar-1 6-200 0 No Information Family History Family Member Type Diagnosis Age At Onset No Information Payers Payer name Insurance type Covered democrat ID Authoriza tion(s) No Information Social History [...]
--- OUTSIDE RECORDS SUMMARY | 2024-09-04 17:16 | XMS_ITS | Encounter Summary ---
Author Organization [facility] Address [address] [place] [address] Care Team Providers Care Fitness Plan Coordinator Name Role Phone Dominic Fernando MD Primary Care Provider + Encounter Details Date Type Department Care Team (Late Contact Info) Description 11/29/2017 Orders Only [facility] Oncology and Hematology [facility] [address] [place] [address] Chris Owens MD [facility] [employer] [address] [place] [address] Secondary hypercoagulable state; Primary hypercoagulable state Social History Tobacco Use Types Packs/Day [...] Visit [facility] Oncology and Hematology [address] [place] [address] Chris Owens MD [address] [employer] [address] [place] [address] documented as of this encounter Visit Diagnoses Diagnosis Secondary hypercoagulable state Primary hypercoagulable state documented in this encounter Care Teams Fitness Plan Coordinator Relationship Specialty Start Date End Date Dominic Fernando MD [address] [place] [address] PCP - General Internal Medicine 11/15/17 01/05/20 documented as of this encounter
--- OUTSIDE RECORDS SUMMARY | 2024-09-04 17:16 | XMS_ITS | Encounter Summary ---
Author Organization [facility] Address [address] [place] [address] Care Team Providers Care Ssrs Report Developer Name Role Phone Dominic Fernando MD Primary Care Provider + Reason for Referral * CT Scan (Routine) - Closed Specialty Diagnoses / Procedures Referred By Evan bo Referred To Contact Diagnoses Encounter for screening for lung cancer Procedures CT LUNG SCREENING CT CHEST F/U LDCT LUNG SCREEN W CONTRAST Chris Owens MD [address] [address] [address] Referral ID Status Reason Start Date Expiration Date Visits Requested Visits Authorized [id number] Closed Ordering Department To Schedule 07/07/2019 08/06/2020 1 1 * Outpatient Services (Routine) - Closed Specialty Diagnoses / Procedures Referred By Evan bo Referred To Contact Diagnoses Visit for screening mammogram Procedures MAMMO SCREEN BILAT W OR WO CAD Chris Owens MD [address] [address] [address] Referral ID Status Reason Start Date Expiration Date Visits Requested Visits Authorized [id number] Closed Ordering Department To Schedule 07/07/2019 08/06/2020 1 1 Reason for Visit * Reason Comments Follow Up 6MTH W/LABS Encounter Details Date Type Department Care Team (Late st Contact Info) Description 07/07/2019 9:45 AM CDT Office Visit [facility] Oncology and Hematology - [place] [address] [facility] [address] [place] [address] Chris Owens MD [address] [facility] [address] [place] [address] Visit for screening mammogram (Primary Dx); Chronic embolism and thrombosis of unspecified deep veins of right lower extremity; Encounter for screening for lung cancer Social [...] Sign Reading Time Taken Comments Blood Pressure 100/75 07/07/2019 9:02 AM CDT Pulse 70 07/07/2019 9:02 AM CDT Temperature 36.9 ??C (98.4 ??F) 07/07/2019 9:02 AM CD T Respiratory Rate - - Oxygen Saturation 97% 07/07/2019 9:02 AM CDT Inhaled Oxygen Concentration - - Weight 79.4 kg (175 lb) 07/07/2019 9:02 AM CDT Height 162.6 cm (5' 4 ) 07/07/2019 9:02 AM CDT Body Mass Index 30.04 07/07/2019 9:02 AM CDT documented in this encounter Progress Notes * Chris Owens MD - 07/07/2019 9:28 AM CDT HEMATOLOGY / ONCOLOGY PROGRESS NOTE [...] when diagnosed with a stroke SUBJECTIVE Patient was admitted to the hospital in April 2019 with rapid heart rate and diagnosed to have multiple PVCs. She denies any chest pain shortness of breath. She lost 15 pound weight intentionally. She quit smoking 2 weeks ago. There is no other new complaints. Review of system Constitutional: [...] dizziness Skin: No lumps, bumps or rashes. Objective: Vital signs in last 24 hours: [...] No lymphadenopathy Neuro: No obvious focal deficit [facility] Labs from June 2019 showed WBC 6.1 hemoglobin 13.4 platelet 266,000 creatinine 1.0. @IMAGEIMP@ Assessment: Plan: Patient Active Problem List Diagnosis Date Noted ??? Diverticulitis 03/24/2018 ??? Secondary hypercoagulable state 11/15/2017 ??? Tobacco use 11/15/2017 Hypercoagulable state with recurrent DVT, stroke and TIA. Previous work-up showed elevated homocystine level and positive lupus anticoagulant. Patient will continue Xarelto 20 mg daily with baby aspirin and folic acid. She need to stay on long-term anti-correlation therapy. Breast cancer screening. I will order bilateral screening mammogram. Last mammogram was more than 2years ago. Lung cancer screening. Patient is a 59-year-old woman with history of smoking 1 pack/day for more than 30 years duration. I will order lung cancer screening low-dose CT chest. Follow-up in 6 months. ? TOBACCO COUNSELING She is not a tobacco user. 07/07/2019 Chris Owens MD documented in this encounter Plan of Treatment Upcoming Encounters Date Type Department Care Team (Late st Contact Info) Description 12/04/2024 11:30 AM CDT Office Visit [facility] On[facility] and H[facility]ology [facility] [address] [facility] [address] [place] [address] Chris Owens MD [address] [facility] [address] [place] [address] documented as of this encounter Results * CBC WITH DIFFERENTIAL (01/06/2020) Blood Chris Owens MD HEMATOLOGY ORDERABLE S Performing Organization Address City/[facility] Co de Phone Number NON [facility] * COMPREHENSIVE METABOLIC PANEL (07/15/2019) Blood Chris Owens MD CHEMISTRY ORDERABLES Performing Organization Address City/[facility]/ZIP Co de Phone Number EXTERNAL LAB * CT LUNG SCREENING (07/15/2019) Anatomical Region Laterality Modality Chest Other Chris Owens MD CT ORDERABLES * MAMMO SCREEN BILAT W OR WO CAD (07/15/2019) Anatomical Region Laterality Modality Breast Bilateral Other Chris Owens MD MAMMO ORDERABLES documented in this encounter Visit Diagnoses Diagnosis Visit for screening mammogram- Primary Other screening mammogram Chronic embolism and 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
--- OUTSIDE RECORDS SUMMARY | 2024-09-04 17:16 | XMS_ITS | Encounter Summary ---
Author Organization [facility] Address [address] [facility] Attn: Epic Prelude ADT LILY BAUMANN [address] Care Team Providers Care Drill Press Operator For Metal Name Role Phone Boris Mcnair DO Primary Care Provider [phone] Encounter Details Date Type Department Care Team (Latest Contact Info) Description 01/06/2020 Travel Social History Tobacco Use Types Packs/Day [...] [facility] Oncology and Hematology - [place] [address] [facility] [address] [place] [address] Chris Owens MD [address] [facility] [address] [place] [address] documented as of this encounter Visit Diagnoses Not on filedocumented in this encounter Care Teams Drill Press Operator For Metal Relationship Specialty Start Date End Date Boris Mcnair DO [address] [facility] [address] [place] [phone] PCP - General Internal Medicine 01/06/20 02/20/23 documented as of this encounter
--- OUTSIDE RECORDS SUMMARY | 2024-09-04 17:16 | XMS_ITS | Encounter Summary ---
Author Organization [facility] Address [address] [place] [address] Care Team Providers Care Outsole Beveler Name Role Phone Dominic Fernando MD Primary Care Provider + Reason for Visit * Reason Onset Date Comments Medication Review 08/14/2018 Encounter Details Date Type Department Care Team (Late Contact Info) Description 08/14/2018 Telephone [facility] Oncology and Hematology [facility] [address] [place] [address] [place] [address] [place] [address] [address] [place] [address] Medication Review Social History Tobacco Use Types Packs/Day Years [...] encounter Miscellaneous Notes * Telephone Encounter - Tiffany Gonzales RN - 08/14/2018 8:40 AM CST Reviewed with Dr. Owens and pt to stop Aspirin 1 week prior and Xarelto 2 days prior to knee surgery. Tiffany Gonzales RN OOD AND SERVICE MEAT MANAGER documented in this encounter Plan of Treatment Upcoming Encounters Date Type Department Care Team (Late Contact Info) Description 12/04/2024 11:30 AM CDT Office Visit [facility] Oncology and Hematology [facility] [address] [place] [address] Chris Owens MD [address] [facility] [address] [place] [address] documented as of this encounter Visit Diagnoses Not on filedocumented in this encounter Care Teams Outsole Beveler Relationship Specialty Start Date End Date Dominic Fernando MD [address] [place] [address] PCP - General Internal Medicine 11/15/17 01/05/20 documented as of this encounter
--- OUTSIDE RECORDS SUMMARY | 2024-09-04 17:16 | XMS_ITS | Encounter Summary ---
Author Organization [facility] Address [address] [place] [address] Care Team Providers Care Aerospace Technician Name Role Phone Dominic Fernando MD Primary Care Provider + Reason for Visit * Reason Comments Follow Up Encounter Details Date Type Department Care Team (Late st Contact Info) Description 11/25/2017 9:15 AM CDT Office Visit [facility] Oncology and Hematology - [place] [address] [facility] [address] [place] [address] Chris Owens MD [address] [facility] [address] [place] [address] Secondary hypercoagulable state (Primary Dx); Atherosclerosis ; Primary hypercoagulable state Social History Tobacco Use [...] Sign Reading Time Taken Comments Blood Pressure 126/61 11/25/2017 9:26 AM CDT Pulse 72 11/25/2017 9:26 AM CDT Temperature 36.7 ??C (98 ??F) 11/25/2017 9:26 AM CDT Respiratory Rate - - Oxygen Saturation 96% 11/25/2017 9:26 AM CDT Inhaled Oxygen Concentration - - Weight 86.9 kg (191 lb 9.6 oz) 11/25/2017 9:26 A M CDT Height 162.6 cm (5' 4 ) 11/25/2017 9:26 AM CDT Body Mass Index 32.89 11/25/2017 9:26 AM CDT documented in this encounter Progress Notes * Chris Owens MD - 11/25/2017 10:03 AM CDT HEMATOLOGY / ONCOLOGY PROGRESS NOTE Patient Identification: Name: Gege Vidal Age: 57 y.o. Sex: female : 1960 Subjective: HPI [...] takingany female hormone replacement therapy. Interval History: No change in interval history. Review of system Constitutional: No fever; no night sweats; no anorexia; no weight loss; complain of tiredness and fatigue Respiratory: No shortness of breath; no pleuritic [...] Active Problem List Diagnosis Date Noted ??? Secondary hypercoagulable state 11/15/2017 ??? Tobacco [...] attack. One brother also has blood clots. Sandrita Doppler studies done on October 09 due to chronic swelling of the bilateral lower extremity that showed no evidence of DVT. I have performed the hypercoagulable workup that only showed elevated homocysteine level. I will repeat lupus anticoagulant and homocystine level in 6 months. I have instructed her to continue aspirin and start taking folic acid 1 mg by mouth daily. We have also discussed the risk management for hypercoagulable state. ? 11/25/2017 Chris Owens MD documented in this encounter Plan of Treatment Upcoming Encounters Date Type Department Care Team (Late st Contact Info) Description 12/04/2024 11:30 AM CDT Office Visit [facility] Oncology and Hematology - [place] [address] [facility] [address] [place] [address] Chris Owens MD [address] [facility] [address] [place] [address] Scheduled Orders Name Type Priority Associated Diagnoses Orde r Schedule LUPUS ANTICOAGULANT W/REFLEX CONFIRMATION Lab Routine Secondary hypercoagulable state Primary hypercoagulable state Expected: 05/28/2018 (Approximate), Expires: 11/25/2018 documented as of this encounter Results * HOMOCYSTEINE (06/02/2018) Blood Chris Owens MD CHEMISTRY ORDERABLES EXTERNAL LAB documented in this encounter Visit Diagnoses Diagnosis Secondary hypercoagulable state- Primary Atherosclerosis Generalized and unspecified atherosclerosis Primary hypercoagulable state documented in this encounter Care Teams Aerospace Technician Relationship Specialty Start Date End Date Dominic Fernando MD [address] [place] [address] PCP - General Internal Medicine 11/15/17 01/05/20 documented as of this encounter
--- OUTSIDE RECORDS SUMMARY | 2024-09-04 17:16 | XMS_ITS | Encounter Summary ---
Author Organization [facility] Address [address] [place] [address] Care Team Providers Care Server Developer Name Role Phone Dominic Fernando MD Primary Care Provider + Reason for Visit * Reason Comments Follow Up Post CVA Encounter Details Date Type Department Care Team (Late st Contact Info) Description 03/24/2018 11:45 AM CDT Office Visit [facility] Oncology and Hematology [place] [address] [place] [address] [address] [place] [address] Chris Owens MD [address] [facility] [address] [place] [address] Secondary hypercoagulable state (Primary Dx); Diverticulitis Social History Tobacco Use Types Packs/Day Years [...] Sign Reading Time Taken Comments Blood Pressure 117/76 03/24/2018 11:45 AM CDT Pulse 93 03/24/2018 11:45 AM CDT Temperature 36.7 ??C (98 ??F) 03/24/2018 11:45 AM CDT Respiratory Rate 18 03/24/2018 11:45 AM CDT Oxygen Saturation 95% 03/24/2018 11:45 AM CDT Inhaled Oxygen Concentration - - Weight 81.3 kg (179 lb 4.8 oz) 03/24/2018 11:45 AM CDT Height 162.6 cm (5' 4 ) 03/24/2018 11:45 AM CDT Body Mass Index 30.78 03/24/2018 11:45 AM CDT documented in this encounter Progress Notes * Chris Owens MD - 03/24/2018 12:46 PM CDT HEMATOLOGY / ONCOLOGY PROGRESS NOTE [...] and baby aspirin was started as well. For dose of aspirin was discontinued. She was referred to vascular surgeon for repeat ultrasound. I will continue Xarelto and baby aspirin. I will again asked her to start taking folic acid 1 mg by mouth daily. I will see her back in 2 months. Patient also needs to have colonoscopy done due to diverticulitis symptoms. We will perform colonoscopy once she is off the Xarelto. ? 03/24/2018 Chris Owens MD documented in this encounter Plan of Treatment Upcoming Encounters Date Type Department Care Team (Late st Contact Info) Description 12/04/2024 11:30 AM CDT Office Visit [facility] Oncology and Hematology - [place] [address] [facility] [address] [place] [address] Chris Owens MD [address] [facility] [address] [place] [address] documented as of this encounter Visit Diagnoses Diagnosis Secondary hypercoagulable state- Primary Diverticulitis Diverticulitis of colon (without mention of hemorrhage) documented in this encounter Care Teams Server Developer Relationship Specialty Start Date End Date Dominic Fernando MD [address] [place] [address] PCP - General Internal Medicine 11/15/17 01/05/20 documented as of this encounter
--- OUTSIDE RECORDS SUMMARY | 2024-09-04 17:16 | XMS_ITS | Encounter Summary ---
Author Organization [facility] Address [address] [place] [address] Care Team Providers Care Estimator Printing Plate Making Name Role Phone Dominic Fernando MD Primary Care Provider + Encounter Details Date Type Department Care Team (Late Contact Info) Description 07/23/2018 Orders Only [facility] Oncology and Hematology [facility] [address] [place] [address] Chris Owens MD [facility] [employer] [address] [place] [address] Right leg swelling; Personal history of DVT (deep vein thrombosis) Social History Tobacco Use Types Packs/Day Years [...] Description 12/04/2024 11:30 AM CDT Office Visit [facility] Oncology and Hematology [facility] [address] [place] [address] Chris Owens MD [address] [facility] [address] [place] [address] documented as of this encounter Procedures Procedure Name Priority Date/Time Associated Diagnosis Comments US VENOUS DOPPLER LEG RIGHT Routine 07/21/2018 Right leg swelling Personal history of DVT (deep vein thrombosis) documented in this encounter Results * US VENOUS DOPPLER LEG RIGHT (07/21/2018) Anatomical Region Laterality Modality Lower Extremity Other Chris Owens MD US ORDERABLES documented in this encounter Visit Diagnoses Diagnosis Right leg swelling Personal history of DVT (deep vein thrombosis) Personal history of venous thrombosis and embolism documented in this encounter Care Teams Estimator Printing Plate Making Relationship Specialty Start Date End Date Dominic Fernando MD [address] [place] [address] PCP - General Internal Medicine 11/15/17 01/05/20 documented as of this encounter
--- OUTSIDE RECORDS SUMMARY | 2024-09-04 17:16 | XMS_ITS | Encounter Summary ---
Author Organization [facility] Address [address] [place] [address] Care Team Providers Care Cutting And Splicing Supervisor Name Role Phone Dominic Fernando MD Primary Care Provider + Encounter Details Date Type Department Care Team (Late Contact Info) Description 05/27/2018 Orders Only [facility] Oncology and [facility] [address] [facility] [address] [place] [address] Tiffany Gonzales RN Atherosclerosis ; Secondary hypercoagulable state Social History Tobacco Use Types [...] Visit [facility] Oncology and [facility] [address] [place] [address] Chris Owens MD [address] [facility] [address] [place] [address] documented as of this encounter Procedures Procedure Name Priority Date/Time Associated Diagnosis Comments HOMOCYSTEINE Routine 06/02/2018 Atherosclerosis Secondary hypercoagulable state documented in this encounter Results * HOMOCYSTEINE (06/02/2018) Blood Chris Owens MD CHEMISTRY ORDERABLES EXTERNAL LAB documented in this encounter Visit Diagnoses Diagnosis Atherosclerosis Generalized and unspecified atherosclerosis Secondary hypercoagulable state documented in this encounter Care Teams Cutting And Splicing Supervisor Relationship Specialty Start Date End Date Dominic Fernando MD [address] [place] [address] PCP - General Internal Medicine 11/15/17 01/05/20 documented as of this encounter
--- OUTSIDE RECORDS SUMMARY | 2024-09-04 17:16 | XMS_ITS | Encounter Summary ---
Author Organization [facility] Address [address] [place] [address] Care Team Providers Care Inventory Accountant Name Role Phone Dominic Fernando MD Primary Care Provider + Encounter Details Date Type Department Care Team (Late st Contact Info) Description 12/29/2018 Orders Only [facility] Oncology and Hematology [facility] [address] [place] [address] Tiffany Gonzales RN Hypercoagulable state Social History Tobacco Use Types [...] [facility] Oncology and [facility] [address] [place] [address] Chris Owens MD [address] [facility] [address] [place] [address] documented as of this encounter Procedures Procedure Name Priority Date/Time Associated Diagnosis Comments CBC WITH DIFFERENTIAL Routine 01/05/2019 Hypercoagulable state BASIC METABOLIC PANEL Routine 01/05/2019 Hypercoagulable state documented in this encounter Results * CBC WITH DIFFERENTIAL (01/05/2019) Blood Chris Owens MD HEMATOLOGY ORDERABLE S EXTERNAL LAB * BASIC METABOLIC PANEL (01/05/2019) Blood Chris Oewns MD CHEMISTRY ORDERABLES EXTERNAL LAB documented in this encounter Visit Diagnoses Diagnosis Hypercoagulable state Primary hypercoagulable state documented in this encounter Care Teams Inventory Accountant Relationship Specialty Start Date End Date Dominic Fernando MD [address] [place] [address] PCP - General Internal Medicine 11/15/17 01/05/20 documented as of this encounter
--- OUTSIDE RECORDS SUMMARY | 2024-09-04 17:16 | XMS_ITS | Encounter Summary ---
Author Organization [facility] [employer] Address [address] [place] [address] Care Team Providers Care Biscuit Factory Worker Name Role Phone Boris Mcnair DO Primary Care Provider [phone] Encounter Details Date Type Department Care Team (Late st Contact Info) Description 07/11/2020 Orders Only [facility] Oncology and Hematology [facility] [address] [place] [address] Lisa Ma RN Visit for screening mammogram Social History [...] Description 12/04/2024 11:30 AM CDT Office Visit [facility] Oncology [facility] [address] [place] [address] Chris Owens MD [address] [facility] [address] [place] [address] documented as of this encounter Procedures Procedure Name Priority Date/Time Associated Diagnosis Comments CBC WITH DIFFERENTIAL Routine 08/01/2020 Visit for screening mammogram COMPREHENSIVE METABOLIC PANEL Routine 08/01/2020 Visit for screening mammogram documented in this encounter Results * CBC WITH DIFFERENTIAL (08/01/2020) Blood Chris Owens MD HEMATOLOGY ORDERABLE S NON [facility] * COMPREHENSIVE METABOLIC PANEL (08/01/2020) Blood Chris Owens MD CHEMISTRY ORDERABLES Performing Organization Address City/[facility] Co de Phone Number NON [facility] documented in this encounter Visit Diagnoses Diagnosis Visit for screening mammogram Other screening mammogram documented in this encounter Care Teams Biscuit Factory Worker Relationship Specialty Start Date End Date Boris Mcnair DO [address] [facility] [address] [place] [address] PCP - General Internal Medicine 01/06/20 02/20/23 documented as of this encounter
--- OUTSIDE RECORDS SUMMARY | 2024-09-04 17:16 | XMS_ITS | Encounter Summary ---
Author Organization [facility] Address [address] [place] [address] Care Team Providers Care Line Supervisor Name Role Phone Dominic Fernando MD Primary Care Provider + Encounter Details Date Type Department Care Team ([facility] Contact Info) Description 07/29/2018 Orders Only [facility] Oncology and Hematology [place] [address] [address] [place] [address] Chris Owens MD [address] [place] [address] [employer] [address] [place] [address] Hypercoagulable state Social History Tobacco Use [...] Upcoming Encounters Date Type Department Care Team ([facility] Contact Info) Description 12/04/2024 11:30 AM CDT Office Visit [facility] Oncology and Hematology [facility] [address] [place] [address] [place] [address] [place] [address] [employer] [address] [place] [address] documented as of this encounter Procedures Procedure Name Priority Date/Time Associated Diagnosis Comments LUPUS ANTICOAGULANT W/REFLEX CONFIRMATION Routine 07/25/2018 Hypercoagulable state documented in this encounter Results * LUPUS ANTICOAGULANT W/REFLEX CONFIRMATION (07/25/2018) Blood Chris Owens MD HEMATOLOGY ORDERABLE S EXTERNAL LAB documented in this encounter Visit Diagnoses Diagnosis Hypercoagulable state Primary hypercoagulable state documented in this encounter Care Teams Line Supervisor Relationship Specialty Start Date End Date Dominic Fernando MD [address] [place] [address] PCP - General Internal Medicine 11/15/17 01/05/20 documented as of this encounter
--- OUTSIDE RECORDS SUMMARY | 2024-09-04 17:16 | XMS_ITS | Encounter Summary ---
Author Organization [facility] Address [address] [place] [address] Care Team Providers Care Ramp Lead Name Role Phone Dominic Fernando MD Primary Care Provider + Encounter Details Date Type Department Care Team ([facility] Contact Info) Description 07/01/2019 Orders Only [facility] Oncology and Hematology [facility] [address] [place] [address] Chris Owens MD [address] [place] [address] [employer] [address] [place] [address] Hypercoagulable state Social History Tobacco Use [...] 12/04/2024 11:30 AM CDT Office Visit [facility] Oncology and Hematology [facility] [address] [place] [address] [place] [address] [place] [address] [employer] [address] [place] [address] documented as of this encounter Procedures Procedure Name Priority Date/Time Associated Diagnosis Comments CBC WITH DIFFERENTIAL Routine 07/07/2019 Hypercoagulable state COMPREHENSIVE METABOLIC PANEL Routine 07/07/2019 Hypercoagulable state documented in this encounter Results * CBC WITH DIFFERENTIAL (07/07/2019) Blood Chris Owens MD HEMATOLOGY ORDERABLE S EXTERNAL LAB * (ABNORMAL) COMPREHENSIVE METABOLIC PANEL (07/07/2019) Blood Chris Owens MD CHEMISTRY ORDERABLES Performing Organization Address City/[facility]/ZIP Co de Phone Number EXTERNAL LAB documented in this encounter Visit Diagnoses Diagnosis Hypercoagulable state Primary hypercoagulable state documented in this encounter Care Teams Ramp Lead Relationship Specialty Start Date End Date Dominic Fernando MD [address] [place] [address] PCP - General Internal Medicine 11/15/17 01/05/20 documented as of this encounter
--- OUTSIDE RECORDS SUMMARY | 2024-09-04 17:16 | XMS_ITS | Encounter Summary ---
Author Organization [facility] Address [address] [place] [address] Care Team Providers Care Biomedical Electronics Technician Name Role Phone Dominic Fernando MD Primary Care Provider + Reason for Visit * Reason Onset Date Comments recent CVA 03/13/2018 Encounter Details Date Type Department Care Team (Late Contact Info) Description 03/13/2018 Telephone [facility] Oncology and Hematology - [place] [address] [facility] [address] [place] [address] Chris Owens MD [address] [facility] [address] [place] [address] recent CVA Social History Tobacco Use Types Packs/Day Years [...] Telephone Encounter - Tiffany Gonzales RN - 03/13/2018 4:24 PM CDT Pt reports that she recently had CVA whild being on Aspirin 325 mg po daily. Now she is on Xarelto and Aspirin 81 mg, reviewed with Dr. Owens. Pt made appt for 03-24-18. Tiffany Gonzales RN documented in this encounter Plan of Treatment Upcoming Encounters Date Type Department Care Team (Late st Contact Info) Description 12/04/2024 11:30 AM CDT Office Visit [facility] Oncology and Hematology - [place] [address] [facility] [address] [place] [address] Chris Owens MD [address] [facility] [address] [place] [address] documented as of this encounter Visit Diagnoses Not on filedocumented in this encounter Care Teams Biomedical Electronics Technician Relationship Specialty Start Date End Date Dominic Fernando MD [address] [place] [address] PCP - General Internal Medicine 11/15/17 01/05/20 documented as of this encounter
--- OUTSIDE RECORDS SUMMARY | 2024-09-04 17:16 | XMS_ITS | Encounter Summary ---
Author Organization [facility] Address [address] [place] [address] Care Team Providers Care Pewter Caster Name Role Phone Dominic Fernando MD Primary Care Provider + Reason for Visit * Reason Comments Medication Refill Encounter Details Date Type Department Care Team ([facility] Contact Info) Description 03/07/2019 Refill [facility] Oncology and Hematology [place] [address] [place] [address] Chris Owens MD [address] [employer] [address] [place] [address] Social History Tobacco Use Types Packs/Day [...] Type Department Care Team ([facility] Contact Info) Description 12/04/2024 11:30 AM CDT Office Visit [facility] Oncology and Hematology - [place] [address] [place] [address] Chris Owens MD [address] [employer] [address] [place] [address] documented as of this encounter Visit Diagnoses Not on filedocumented in this encounter Care Teams Pewter Caster Relationship Specialty Start Date End Date Dominic Fernando MD [address] [place] [phone] PCP - General Internal Medicine 11/15/17 01/05/20 documented as of this encounter
--- OUTSIDE RECORDS SUMMARY | 2024-09-04 17:16 | XMS_ITS | Encounter Summary ---
Author Organization [facility] Address [address] [place] [address] Care Team Providers Care Building Wrecker Name Role Phone Dominic Fernando MD Primary Care Provider + Encounter Details Date Type Department Care Team (Late Contact Info) Description 05/28/2018 Orders Only [facility] Oncology and Hematology [facility] [address] [place] [address] Chris Owens MD [address] [place], [place] [address]Done In :[employer] [address] [place] [address] Hypercoagulable state (Primary Dx) Social History [...] Description 12/04/2024 11:30 AM CDT Office Visit [facility] Oncology and Hematology [facility] [address] [place] [address] Chris Owens MD [facility] [address] [place] [address] documented as of this encounter Results * LUPUS ANTICOAGULANT W/REFLEX CONFIRMATION (06/02/2018) Blood Chris Owens MD HEMATOLOGY ORDERABLE S EXTERNAL LAB documented in this encounter Visit Diagnoses Diagnosis Hypercoagulable state- Primary Primary hypercoagulable state documented in this encounter Care Teams Building Wrecker Relationship Specialty Start Date End Date Dominic Fernando MD [address] [place] [address] PCP - General Internal Medicine 11/15/17 01/05/20 documented as of this encounter
--- OUTSIDE RECORDS SUMMARY | 2024-09-04 17:16 | XMS_ITS | Encounter Summary ---
Author Organization [facility] Address [address] [place] [address] Care Team Providers Care Science Intern Name Role Phone Dominic Fernando MD Primary Care Provider + Reason for Visit * Reason Comments Establish Care Encounter Details Date Type Department Care Team (Late st Contact Info) Description 11/15/2017 9:30 AM NASCAR RACER Office Visit [facility] Oncology and Hematology - [place] [address] [facility] [address] [place] [address] Chris Owens MD [address] [facility] [address] [place] [address] Primary hypercoagulable state (Primary Dx); Secondary hypercoagulable state; Tobacco use; Atherosclerosis Social History Tobacco Use Types Packs/Day Years Used Date Smoking Tobacco: Every Day Cigarettes 0.5 30 Alcohol Use Standard Drinks/Week Comments No 0 (1 standard drink = 0.6 oz pur e alcohol) Sex and Gender Information Value Date Recorded Sex Assigned at Not on file Gender Identity Not on file Sexual Orientation Not on file documented as of this encounter Last Filed Vital Signs Vital Sign Reading Time Taken Comments Blood Pressure 154/79 11/15/2017 9:36 AM NASCAR RACER Pulse 77 11/15/2017 9:36 AM NASCAR RACER Temperature 37 ??C (98.6 ??F) 11/15/2017 9:36 AM NASCAR RACER Respiratory Rate 18 11/15/2017 9:36 AM NASCAR RACER Oxygen Saturation 97% 11/15/2017 9:36 AM NASCAR RACER Inhaled Oxygen Concentration - - Weight 86.4 kg (190 lb 6.4 oz) 11/15/2017 9:36 A M NASCAR RACER Height 162.6 cm (5' 4 ) 11/15/2017 9:36 AM NASCAR RACER Body Mass Index 32.68 11/15/2017 9:36 AM NASCAR RACER documented in this encounter Progress Notes * Chris Owens MD - 11/15/2017 12:32 PM CST Hematology-oncology consult Note Requesting Physician Davie Puri M.D.? Primary Care Physician Dominic Fernando MD Problem list Patient Active Problem List Diagnosis Code ??? Secondary hypercoagulable state D68.69 ??? Tobacco use Z72.0 Previous TREATMENT ? Measurable Disease ? Reason for Visit Gege Vidal is a 57 y.o. female who was referred for consultation for Hypercoagulable state. History of present illness This is a pleasant 57-year-old slightly obese [...] also not takingany female hormone replacement therapy. Past Medical History Past Medical History: Diagnosis Date ??? Cancer 1986 cervical cancer ??? Diverticulitis ??? Hypothyroidism ??? Thromboembolism Miscarriages time 5 Surgical History Past Surgical History: Procedure Laterality Date ??? HX CERVICAL FUSION 2005 ??? HX CHOLECYSTECTOMY 2016 ??? HX HYSTERECTOMY 1989 ??? HX KNEE SURGERY 2000, 2016 ??? HX SHOULDER SURGERY Right Medications Current Outpatient Prescriptions Medication Sig Dispense Refill ??? 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 ??? naproxen (NAPROSYN) 500 mg tablet Take 500 mg by mouth 2 times daily with meals. No current facility-administered medications for this visit. Allergies Allergies Allergen Reactions ??? Codeine Shortness of Breath/Wheezing ??? Latex Rash ??? Morphine Hypotension ??? Penicillins Shortness of Breath/Wheezing ??? Vancomycin Other (See Comments) red man Immunizations: There is no immunization history on file for this patient. Family History Family History Problem Relation Age of Onset ??? Heart Disease Father ??? Diabetes Father ??? Diabetes Mother ??? Diabetes Sister ??? Liver Disease Sister ??? Unknown Brother ??? Diabetes Sister ??? Other Sister ??? Heart Disease Sister ??? No Known Problems Sister Social History Social History Substance Use Topics ??? Smoking status: Current Every Day Smoker Packs/day: 0.50 Years: 30.00 Types: Cigarettes ??? Smokeless tobacco: Not on file ??? Alcohol use No Review of Systems Constitutional: No fever; no night sweats; no anorexia; no weight loss; no fatique NEENT: No headache; no change in vision; no change in hearing; no sore throat; no dysphagia Respiratory: No shortness of breath; no pleuritic chest pain; no cough; no hemoptysis Cardiac: No cardiac-like chest pain; no palpitations; no orthopnea; no PND; no LEVIN Breasts: No tenderness; no masses GI: No abdominal pain; no nausea; no vomiting; no diarrhea; no hematochezia; no melena : No dysuria; no frequency; no hesitancy; no hematuria EQUAL EMPLOYMENT OPPORTUNITY OFFICER: Musculosketetal: no bone pain; no arthralgia; no joint swelling; no myalgia; Skin: no pruritis; no rash; no petechiae; no ecchymoses Endocrine: no polydipsia; no polyuria; no unusual weight gain Neuro: No headache; no change in vision; no sensory changes; no muscle weakness; no confusion; no seizures Psych: no anxiety; no depression; Physical Exam Vitals: As per nursing note Constitutional: Well developed, well nourished, no acute distress, non-toxic appearance Teeth and gum. No signs of infection or swelling. Eyes: PERRL, conjunctiva normal HEENT: Atraumatic, external ears normal, nose normal, oropharynx moist, no pharyngeal exudates. no sinus tenderness Neck- normal range of motion, no tenderness, supple Respiratory: No respiratory distress, normal breath sounds, no rales, no wheezing . Cardiovascular: Normal rate, normal rhythm, no murmurs, no gallops, no rubs GI: Soft, nondistended, normal bowel sounds, nontender, no splenomegaly, no hepatomegaly, no mass, no rebound, no guarding : No costovertebral angle tenderness Musculoskeletal: No edema, no tenderness, no deformities. Back- no tenderness Integument: Well hydrated, no rash, Digits and nails inspection normal Lymphatic: No lymphadenopathy noted Neurologic: Alert & oriented x 3, CN 2-12 normal, normal motor function, normal sensory function, no focal deficits noted Psychiatric: Speech and behavior appropriate ? labs No results found for this or any previous visit (from the past 24 hour(s)). Pathology ? Imaging & Other Studies Performance Status? Assessment / Plan: Hypercoagulable state with personal history of recurrent [...] with pulmonary embolism in one of the Sr. who actually of female cancer. Her father of heart attack. One brother also has blood clots. She had Doppler studies done on generally 24 due to chronic swelling of the bilateral lower extremity that showed no evidence of DVT. I have discussed in detail the risk factor for thromboembolic event that includes immobility, hormone replacement therapy, smoking and trauma and prolonged travel. We discussed the genetic risk factors as well. Given her personal historyof blood clotting disorder with multiple miscarriages and family history I will order a reticulocyte workup that would include factor V Leiden mutation, prothrombin gene mutation, homocystine level, protein C and S activity, lupus anticoagulant, and the cardiolipin antibody and glycoprotein be level. I have recommended to take aspirin 325 5 mg daily for prevention. I have answered all the questions to patient's satisfaction.? Thank you very much for allowing me to participate in Gege Vidal's evaluation and management. Please feel free to contact if I can be of any further assistance in your patient???s care requiring hematology or oncology evaluation. Sincerely, ? ? Chris Owens M.D. cell ? Chris Owens MD ,11/15/2017 12:32 PM ? Total time spent 80 minutes, two third of the total time spent counseling patient [id number]. CC:Dominic Fernando MD Paul Scherer M.D.? AR RACER documented in this encounter Plan of Treatment Upcoming Encounters Date Type Department Care Team (Late st Contact Info) Description 12/04/2024 11:30 AM CDT Office Visit [facility] Oncology and Hematology - [place] [address] [facility] [address] [place] [address] Chris Owens MD [address] [facility] [address] [place] [address] documented as of this encounter Procedures Procedure Name Priority Date/Time Associated Diagnosis Comments PROTHROMBIN FACTOR II MUTATION ANALYSIS Routine 11/21/2017 Secondary hypercoagulable state FACTOR V LEIDEN MUTATION Routine 11/21/2017 Secondary hypercoagulable state ANTITHROMBIN III ACTIVITY Routine 11/21/2017 Secondary hypercoagulable state CARDIOLIPIN IGG/IGM Routine 11/19/2017 Secondary hypercoagulable state LUPUS ANTICOAGULANT W/REFLEX CONFIRMATION Routine 11/19/2017 Secondary hypercoagulable state Primary hypercoagulable state PROTEIN C & S ACTIVITY Routine 11/18/2017 Secondary hypercoagulable state BETA 2 GLYCOPROTEIN I ANTIBODIES Routine 11/18/2017 Secondary hypercoagulable state HOMOCYSTEINE Routine 11/18/2017 Atherosclerosis Secondary hypercoagulable state documented in this encounter Results * PROTHROMBIN FACTOR II MUTATION ANALYSIS (11/21/2017) Blood Chris Owens MD CHEMISTRY ORDERABLES EXTERNAL LAB * FACTOR V LEIDEN MUTATION (11/21/2017) Blood Chris Owens MD HEMATOLOGY ORDERABLE S Performing Organization Address [facility] Co de Phone Number EXTERNAL LAB * ANTITHROMBIN III ACTIVITY (11/21/2017) Blood Chris Owens MD HEMATOLOGY ORDERABLE S Performing Organization Address [facility] Co de Phone Number EXTERNAL LAB * (ABNORMAL) LUPUS ANTICOAGULANT W/REFLEX CONFIRMATION (11/19/2017) Blood Chris Owens MD HEMATOLOGY ORDERABLE S Performing Organization Address [facility] Co de Phone Number EXTERNAL LAB * CARDIOLIPIN IGG/IGM (11/19/2017) Blood Chris Owens MD CHEMISTRY ORDERABLES Performing Organization Address [facility] Co de Phone Number EXTERNAL LAB * (ABNORMAL) HOMOCYSTEINE (11/18/2017) Blood Chris Owens MD CHEMISTRY ORDERABLES Performing Organization Address [facility] Co de Phone Number EXTERNAL LAB * PROTEIN C & S ACTIVITY (11/18/2017) Blood Chris Owens MD CHEMISTRY ORDERABLES Performing Organization Address [facility] Co de Phone Number EXTERNAL LAB * BETA 2 GLYCOPROTEIN I ANTIBODIES (11/18/2017) Blood Chris Owens MD CHEMISTRY ORDERABLES Performing Organization Address [facility] Co de Phone Number EXTERNAL LAB documented in this encounter Visit Diagnoses Diagnosis Primary hypercoagulable state- Primary Secondary hypercoagulable state Tobacco use Tobacco use disorder Atherosclerosis Generalized and unspecified atherosclerosis documented in this encounter Care Teams Science Intern Relationship Specialty Start Date End Date Dominic Fernando MD [address] [place] [address] PCP - General Internal Medicine 11/15/17 01/05/20 documented as of this encounter
--- OUTSIDE RECORDS SUMMARY | 2024-09-04 17:16 | XMS_ITS | Encounter Summary ---
Author Organization [facility] Address [address] [place] [address] Care Team Providers Care Rn Labor Delivery Name Role Phone Dominic Fernando MD Primary Care Provider + Reason for Visit * Reason Onset Date Comments Knee Swelling 06/25/2018 Encounter Details Date Type Department Care Team (Late st Contact Info) Description 06/25/2018 Telephone [facility] Oncology and Hematology - [place] [address] [facility] [address] [place] [address] Chris Owens MD [address] [facility] [address] [place] [address] Knee Swelling Social History Tobacco Use Types Packs/Day Years [...] Telephone Encounter - Tiffany Gonzales RN - 06/25/2018 2:42 PM CDT Pt called to report that she has right knee swelling and pain laterally and front of knee. Pt denies any warmth, redness or tenderness. Pt is concerned about possible dvt due to + lupus anticoagulant. Pt states she has history of knee arthritis and advised to contact PCP. Pt also advised to contactus if she develops any warmth, redness or tenderness. Tiffany Gonzales RN documented in this encounter Plan of Treatment Upcoming Encounters Date Type Department Care Team (Late st Contact Info) Description 12/04/2024 11:30 AM CDT Office Visit [facility] Oncology and Hematology - [place] [address] [facility] [address] [place] [address] Chris Owens MD [address] [facility] [address] [place] [address] documented as of this encounter Visit Diagnoses Not on filedocumented in this encounter Care Teams Rn Labor Delivery Relationship Specialty Start Date End Date Dominic Fernando MD [address] [place] [phone] PCP - General Internal Medicine 11/15/17 01/05/20 documented as of this encounter
--- OUTSIDE RECORDS SUMMARY | 2024-09-04 17:16 | XMS_ITS | Encounter Summary ---
Author Organization [facility] Address [address] [place] [address] Care Team Providers Care Antique Furniture Repairer Name Role Phone Dominic Fernando MD Primary Care Provider + Encounter Details Date Type Department Care Team (Late Contact Info) Description 06/02/2018 Orders Only [facility] Oncology and Hematology [facility] [address] [place] [address] Tiffany Gonzales RN Hypercoagulable state [...] [facility] On[facility] [address] [place] [address] Chris Owens MD [address] [facility] [address] [place] [address] documented as of this encounter Procedures Procedure Name Priority Date/Time Associated Diagnosis Comments LUPUS ANTICOAGULANT W/REFLEX CONFIRMATION Routine 06/02/2018 Hypercoagulable state documented in this encounter Results * LUPUS ANTICOAGULANT W/REFLEX CONFIRMATION (06/02/2018) Blood Chris Owens MD HEMATOLOGY ORDERABLE S EXTERNAL LAB documented in this encounter Visit Diagnoses Diagnosis Hypercoagulable state Primary hypercoagulable state documented in this encounter Care Teams Antique Furniture Repairer Relationship Specialty Start Date End Date Dominic Fernando MD [address] [place] [address] PCP - General Internal Medicine 11/15/17 01/05/20 documented as of this encounter
--- OUTSIDE RECORDS SUMMARY | 2024-09-04 17:16 | XMS_ITS | Encounter Summary ---
Author Organization [facility] Address [address] [place] [address] Care Team Providers Care Career Developer Name Role Phone Dominic Fernando MD Primary Care Provider + Encounter Details Date Type Department Care Team (Late st Contact Info) Description 06/09/2018 Orders Only [facility] Oncology and Hematology [facility] [address] [place] [address] Tiffany Gonzales RN Social History Tobacco Use Types Packs/Day Years [...] Description 12/04/2024 11:30 AM CDT Office Visit [facility] Oncology and [facility] [address] [place] [address] Chris Owens MD [address] [facility] [address] [place] [address] documented as of this encounter Visit Diagnoses Not on filedocumented in this encounter Care Teams Career Developer Relationship Specialty Start Date End Date Dominic Fernando MD [address] [place] [address] PCP - General Internal Medicine 11/15/17 01/05/20 documented as of this encounter
--- OUTSIDE RECORDS SUMMARY | 2024-09-04 17:16 | XMS_ITS | Encounter Summary ---
Author Organization [facility] Address [address] [place] [address] Care Team Providers Care Precinct Police Captain Name Role Phone Dominic Fernando MD Primary Care Provider + Reason for Referral * Radiology Services (Routine) - Closed Specialty Diagnoses / Procedures Referred By Evan bo Referred To Contact Diagnoses Right leg swelling Personal history of DVT (deep vein thrombosis) Procedures US VENOUS DOPPLER LEG RIGHT Chris Owens MD [address] [employer] [address] [place] [phone] [address] Referral ID Status Reason Start Date Expiration Date Visits Requested Visits Authorized [id number] Closed Ordering Department To Schedule 07/21/2018 08/21/2019 1 1 W HAT WASHER OPERATOR Reason for Visit * Reason Onset Date Comments Leg Swelling 07/21/2018 Encounter Details Date Type Department Care Team (Late st Contact Info) Description 07/21/2018 Telephone [facility] Oncology and Hematology - [place] [address] [facility] [address] [place] [address] Chris Oewns MD [address] [place] [address] Leg Swelling Social History Tobacco Use Types Packs/Day [...] Telephone Encounter - Tiffany Gonzales RN - 07/21/2018 1:50 PM CST Pt called in to report that she has right leg pain, warmth and swelling, continues on Xarelto. Pt has appt with knee Dr Morales. Per Dr. Owens, US ordered, left message for pt to call and schedule, order faxed to [facility]. Tiffany Gonzales RN W HAT WASHER OPERATOR documented in this encounter Plan of Treatment Upcoming Encounters Date Type Department Care Team (Late st Contact Info) Description 12/04/2024 11:30 AM CDT Office Visit [facility] Oncology and Hematology [facility] [address] [facility] [address] [place] [address] Chris Owens MD [address] [facility] [address] [place] [address] documented as of this encounter Results * US VENOUS DOPPLER LEG RIGHT (07/21/2018) Anatomical Region Laterality Modality Lower Extremity Other Chris Owens MD ORDERABLES documented in this encounter Visit Diagnoses Diagnosis Right leg swelling- Primary Personal history of DVT (deep vein thrombosis) Personal history of venous thrombosis and embolism documented in this encounter Care Teams Precinct Police Captain Relationship Specialty Start Date End Date Dominic Fernando MD [address] [place] [address] PCP - General Internal Medicine 11/15/17 01/05/20 documented as of this encounter
--- OUTSIDE RECORDS SUMMARY | 2024-09-04 17:16 | XMS_ITS | Encounter Summary ---
Author Organization [facility] [employer] Address [address] [place] [address] Care Team Providers Care Business Banking Representative Name Role Phone Boris Mcnair DO Primary Care Provider Encounter Details Date Type Department Care Team (Late Contact Info) Description 07/18/2020 Orders Only [facility] Oncology and [facility] [address] [place] [address] Lisa Ma, RN Visit for screening mammogram; Nicotine dependence, cigarettes, uncomplicated Social History Tobacco Use Types Packs/Day Years [...] Description 12/04/2024 11:30 AM CDT Office Visit [facility] Oncology [facility] [address] [place] [address] Chris Owens MD [address] [facility] [address] [place] [address] documented as of this encounter Procedures Procedure Name Priority Date/Time Associated Diagnosis Comments CT LUNG SCREENING (FOLLOW UP LOW DOSE) Routine 07/18/2020 Nicotine dependence, cigarettes, uncomplicated MAMMO SCREEN BILAT W OR WO CAD Routine 07/18/2020 Visit for screening mammogram documented in this encounter Results * CT LUNG SCREENING (FOLLOW UP LOW DOSE) (07/18/2020) Anatomical Region Laterality Modality Chest Other Chris Owens MD CT ORDERABLES * MAMMO SCREEN BILAT W OR WO CAD (07/18/2020) Anatomical Region Laterality Modality Breast Bilateral Other Chris Owens MD MAMMO ORDERABLES documented in this encounter Visit Diagnoses Diagnosis Visit for screening mammogram Other screening mammogram Nicotine dependence, cigarettes, uncomplicated documented in this encounter Care Teams Business Banking Representative Relationship Specialty Start Date End Date Boris Mcnair DO [address] [facility] [address] [place] [phone] PCP - General Internal Medicine 01/06/20 02/20/23 documented as of this encounter
--- OUTSIDE RECORDS SUMMARY | 2024-09-04 17:16 | XMS_ITS | Encounter Summary ---
Author Organization [facility] Address [address] [place] [address] Care Team Providers Care Bricklayer Sewer Name Role Phone Dominic Fernando MD Primary Care Provider + Reason for Visit * Reason Comments Medication Refill Encounter Details Date Type Department Care Team ([facility] Contact Info) Description 04/11/[address] [facility] Oncology and Hematology [place] [address] [place] [address] Chris Owens MD [address] [employer] [place] [address] Social History Tobacco Use Types Packs/Day [...] Upcoming Encounters Date Type Department Care Team ([facility] Contact Info) Description 12/04/2024 11:30 AM CDT Office Visit [facility] Oncology and Hematology - [place] [address] [place] [address] Chris Owens MD [address] [place] [address] documented as of this encounter Visit Diagnoses Not on filedocumented in this encounter Care Teams Bricklayer Sewer Relationship Specialty Start Date End Date Dominic Fernando MD [address] [place] [phone] PCP - General Internal Medicine 11/15/17 01/05/20 documented as of this encounter
--- OUTSIDE RECORDS SUMMARY | 2024-09-04 17:16 | XMS_ITS | Encounter Summary ---
Author Organization [facility] [employer] Address [address] [place] [address] Care Team Providers Care Portfolio Analyst Name Role Phone Dominic Fernando MD Primary Care Provider + Encounter Details Date Type Department Care Team (Late Contact Info) Description 07/15/2019 Orders Only [facility] [address] [place] [address] Chris Owens MD [address] [place], [place] [address] [address] [place] [address] Encounter for screening for lung cancer; Chronic embolism and thrombosis of unspecified deep veins of right lower extremity; Visit for screening mammogram Social History Tobacco [...] AM CDT Office Visit [facility] [address] [place] [address] Chris Owens MD [facility] [employer] [address] [place] [address] documented as of this encounter Procedures Procedure Name Priority Date/Time Associated Diagnosis Comments CT LUNG SCREENING (LDCT BASELINE OR ANNUAL) Routine 07/15/2019 Encounter for screening for lung cancer VITAMIN B12 AND FOLATE Routine 07/15/2019 MAMMO SCREEN BILAT W OR WO CAD Routine 07/15/2019 Visit for screening mammogram VITAMIN D 25 HYDROXY Routine 07/15/2019 COMPREHENSIVE METABOLIC PANEL Routine 07/15/2019 Chronic embolism and thrombosis of unspecified deep veins of right lower extremity documented in this encounter Results * VITAMIN B12 AND FOLATE (07/15/2019) Blood Abstract Provider CHEMISTRY ORDERABLES * VITAMIN D 25 HYDROXY (07/15/2019) Blood Abstract Provider CHEMISTRY ORDERABLES * COMPREHENSIVE METABOLIC PANEL (07/15/2019) Blood Chris Owens MD CHEMISTRY ORDERABLES Performing Organization Address City/State/[facility] Co de Phone Number EXTERNAL LAB * MAMMO SCREEN BILAT W OR WO CAD (07/15/2019) Anatomical Region Laterality Modality Breast Bilateral Other Chris Owens MD MAMMO ORDERABLES * CT LUNG SCREENING (07/15/2019) Anatomical Region Laterality Modality Chest Other Chris Owens MD CT ORDERABLES documented in this encounter Visit Diagnoses Diagnosis Encounter for screening for lung cancer Chronic embolism and thrombosis of unspecified deep veins of right lower extremity Visit for screening mammogram Other screening mammogram documented in this encounter Care Teams Portfolio Analyst Relationship Specialty Start Date End Date Dominic Fernando MD [address] [place] [address] PCP - General Internal Medicine 11/15/17 01/05/20 documented as of this encounter
--- OUTSIDE RECORDS SUMMARY | 2024-09-04 17:16 | XMS_ITS | Encounter Summary ---
Author Organization [facility] Address [address] [place] [address] Care Team Providers Care Slag Expander Name Role Phone Dominic Fernando MD Primary Care Provider + Reason for Visit * Reason Comments Follow Up Results Encounter Details Date Type Department Care Team (Late st Contact Info) Description 01/05/2019 11:45 AM CDT Office Visit [facility] Oncology and Hematology - [place] [address] [facility] [address] [place] [address] Chris Owens MD [address] [facility] [address] [place] [address] Hypercoagulable state (Primary Dx); Right leg swelling Social History Tobacco Use Types Packs/Day Years [...] Sign Reading Time Taken Comments Blood Pressure 134/74 01/05/2019 11:38 AM CDT Pulse 79 01/05/2019 11:38 AM CDT Temperature 36.6 ??C (97.8 ??F) 01/05/2019 11:38 AM C DT Respiratory Rate - - Oxygen Saturation 96% 01/05/2019 11:38 AM CDT Inhaled Oxygen Concentration - - Weight 86.2 kg (190 lb) 01/05/2019 11:38 AM CDT Height 162.6 cm (5' 4 ) 01/05/2019 11:38 AM CDT Body Mass Index 32.61 01/05/2019 11:38 AM CDT documented in this encounter Progress Notes * Chris Owens MD - 01/05/2019 12:32 PM CDT HEMATOLOGY / ONCOLOGY PROGRESS NOTE Patient Identification: Name: Gege Vidal Age: 58 y.o. Sex: female : 1960 Subjective: HPI This is a pleasant 58-year-old slightly obese female with history of smoking [...] and was again treated with Coumadin. She had bilateral chronic lower extremity swelling along with bilateral knee pain. She had Doppler studies performed on October 09, 2017 that showed noevidence of DVT involving either of the limbs. She is in the office for follow-up visit. She was recently admitted to the hospital in September due to TIA. She prior to that fell with injury to the right shoulder. In October 2018 patient had right knee surgery done complicated with the swelling and pain which is still experiencing. She denies any other new complaints today. Interval History: Patient was admitted to the hospital on February 01, 2018 with stroke. She was discharged home on Xarelto. Patient was taken to the hospital on September 2018 with TIA. MRI of the brain showed no acute intracranial abnormalities. Her right-sided facial droop and weakness resolved. Review of system Constitutional: No fever; no [...] muscle weakness; no confusion; no seizures Ext right knee swelling and pain 12 point review of system was reviewed. Objective: Vital signs in last 24 hours: As per nursing note Exam: Gen: NAD Lungs: Clear Cardiac: S1 and S2 without murmurs or gallops Abd: Soft, tender, no hepatomegally, no masses Extr: Right knee swelling and pain Examination as above Scheduled Meds:@[email or web address]@ Continuous Infusions:@[email or web address]@ Data Review: [facility] labs from November 15 showed antithrombin III normal at 117, protein C 147, protein S 92, lupus anticoagulant PTT 42, beta-2 glycoprotein negative, anticardiolipin antibody negative, homocystine elevated at 14.3. Labs from January 05 showed WBC 6.9 hemoglobin 12.6 platelets 320,000 creatinine 1.0. Assessment: Plan: Patient Active Problem List Diagnosis Date Noted ??? Diverticulitis 03/24/2018 ??? Secondary hypercoagulable state 11/15/2017 ??? Tobacco use 11/15/2017 Hypercoagulable state with personal history of recurrent DVT and family history of blood clotting disorder. Hypercoagulable work-up showed elevated homocystine level and positive lupus anticoagulant in the past. Patient will continue Xarelto 20 mg daily along with baby aspirin and folic acid due to her previous recurrent thromboembolic events including DVT and stroke. Right knee arthritis. Patient is status post right knee surgery done in October 2018. History of hematuria. Resolved. TOBACCO COUNSELING She was counseled to discontinue tobacco use. ? 01/05/2019 Chris Owens MD documented in this encounter Plan of Treatment Upcoming Encounters Date Type Department Care Team (Late st Contact Info) Description 12/04/2024 11:30 AM CDT Office Visit [facility] Oncology and Hematology - [place] [address] [facility] [address] [place] [address] Chris Owens MD [address] [facility] [address] [place] [address] documented as of this encounter Results * (ABNORMAL) COMPREHENSIVE METABOLIC PANEL (07/07/2019) Blood Chris Owens MD CHEMISTRY ORDERABLES EXTERNAL LAB * CBC WITH DIFFERENTIAL (07/07/2019) Blood Chris Owens MD HEMATOLOGY ORDERABLE S Performing Organization Address City/[facility] [address]/[facility] Co de Phone Number EXTERNAL LAB documented in this encounter Visit Diagnoses Diagnosis Hypercoagulable state- Primary Primary hypercoagulable state Right leg swelling documented in this encounter Care Teams Slag Expander Relationship Specialty Start Date End Date Dominic Fernando MD [address] [place] [address] PCP - General Internal Medicine 11/15/17 01/05/20 documented as of this encounter
--- OUTSIDE RECORDS SUMMARY | 2024-09-04 17:16 | XMS_ITS | Encounter Summary ---
Author Organization [facility] Address [address] [place] [address] Care Team Providers Care Manager Of Housekeeping Name Role Phone Dominic Fernando MD Primary Care Provider + Encounter Details Date Type Department Care Team (Late st Contact Info) Description 03/25/2018 Orders Only [facility] Oncology and Hematology [facility] [address] [place] [address] Tiffany Gonzales RN Social History [...] Visit [facility] Oncology and [facility] [address] [place] [address] Chris Owens MD [address] [facility] [address] [place] [address] documented as of this encounter Visit Diagnoses Not on filedocumented in this encounter Care Teams Manager Of Housekeeping Relationship Specialty Start Date End Date Dominic Fernando MD [address] [address] PCP - General Internal Medicine 11/15/17 01/05/20 documented as of this encounter
--- OUTSIDE RECORDS SUMMARY | 2024-09-04 17:16 | XMS_ITS | Encounter Summary ---
Author Organization [facility] Address [address] [place] [address] Care Team Providers Care Dispatcher Ship Pilot Name Role Phone Dominic Fernando MD Primary Care Provider + Reason for Visit * Reason Comments Follow Up Encounter Details Date Type Department Care Team (Late st Contact Info) Description 06/09/2018 11:30 AM CDT Office Visit [facility] Oncology and Hematology - [place] [address] [facility] [address] [place] [address] Chris Owens MD [address] [facility] [address] [place] [address] Hypercoagulable state (Primary Dx) Social [...] Sign Reading Time Taken Comments Blood Pressure 122/70 06/09/2018 11:37 AM CDT Pulse 79 06/09/2018 11:37 AM CDT Temperature 36.6 ??C (97.9 ??F) 06/09/2018 11:37 AM C DT Respiratory Rate - - Oxygen Saturation 97% 06/09/2018 11:37 AM CDT Inhaled Oxygen Concentration - - Weight 82.7 kg (182 lb 6.4 oz) 06/09/2018 11:37 AM CDT Height 162.6 cm (5' 4 ) 06/09/2018 11:37 AM CDT Body Mass Index 31.31 06/09/2018 11:37 AM CDT documented in this encounter Progress Notes * Chris Owens MD - 06/09/2018 1:13 PM CDT HEMATOLOGY / ONCOLOGY PROGRESS NOTE [...] as well. Lupus anticoagulant testing came back positive. Homocystine level came down to normal. Patient will continue folic acid 1 mg daily. I will continue Xarelto and baby aspirin. I will see her back in 3 months with repeat lupus anticoagulant testing. History of hematuria. Patient had abdominal and pelvic CT done on April 03 that showed mild ureteralwall prominence. She had repeat CT scan done today. Patient will follow with urologist. ? 06/09/2018 Chris Owens MD documented in this encounter Plan of Treatment Upcoming Encounters Date Type Department Care Team (Late Contact Info) Description 12/04/2024 11:30 AM CDT Office Visit [facility] Oncology and Hematology - [place] [address] [facility] [address] [place] [address] Chris Owens MD [address] [facility] [address] [place] [address] documented as of this encounter Results * LUPUS ANTICOAGULANT W/REFLEX CONFIRMATION (07/25/2018) Blood Chris Owens MD HEMATOLOGY ORDERABLE S EXTERNAL LAB documented in this encounter Visit Diagnoses Diagnosis Hypercoagulable state- Primary Primary hypercoagulable state documented in this encounter Care Teams Dispatcher Ship Pilot Relationship Specialty Start Date End Date Dominic Feranndo MD [address] [place] [address] PCP - General Internal Medicine 11/15/17 01/05/20 documented as of this encounter
--- OUTSIDE RECORDS SUMMARY | 2024-09-04 17:16 | XMS_ITS | Encounter Summary ---
Author Organization [facility] [employer] Address [address] [place] [address] Care Team Providers Care Natural Resource Specialist Name Role Phone Dominic Fernando MD Primary Care Provider + Encounter Details Date Type Department Care Team (Late st Contact Info) Description 12/29/2019 Orders Only [facility] Oncology and Hematology [facility] [address] [place] [address] Lisa Ma RN Chronic embolism and thrombosis of unspecified deep [...] Description 12/04/2024 11:30 AM CDT Office Visit [facility] Oncology and Hematology [facility] [address] [place] [address] Chris Owens MD [address] [facility] [address] [place] [address] documented as of this encounter Procedures Procedure Name Priority Date/Time Associated Diagnosis Comments CBC WITH DIFFERENTIAL Routine 01/06/2020 Chronic embolism and thrombosis of unspecified deep veins of right lower extremity documented in this encounter Results * CBC WITH DIFFERENTIAL (01/06/2020) Blood Chris Owens MD HEMATOLOGY ORDERABLE S NON [facility] documented in this encounter Visit Diagnoses Diagnosis Chronic embolism and thrombosis of unspecified deep veins of right lower extremity documented in this encounter Care Teams Natural Resource Specialist Relationship Specialty Start Date End Date Dominic Fernando MD [address] [place] [address] PCP - General Internal Medicine 11/15/17 01/05/20 documented as of this encounter
--- OUTSIDE RECORDS SUMMARY | 2024-09-04 18:08 | XMS_ITS | Clinical Summary ---
Author Organization [facility] [employer] Address [address] [facility] [place] [address] Care Team Providers Care Photonics Engineering Technologist Name Role Phone Boris Mcnair Primary Care Provider [phone] Source Comments [facility],non-owned Affiliates and Associated Physician Practices is amultiple site organization consisting of ambulatory clinics and hospital sitesin [place], [place], [place] and [place]. This disclosure is being madepursuant to the Care Everywhere program and may not contain all information available regarding this patient. Last updated 18.[facility] Allergies Active Allergy Reactions Criticality Noted Date [...] MG tablet 10/09/2018 Active Cholecalciferol (VITAMIN D3) 95546 units capsule Active Active Problems Problem Noted [...] - 26 mg/dL 02/07/2018 1:22 PM CDT [facility] Creatinine 1.0 0.6 - 1.2 mg/dL 02/07/2018 1:22 PM CDT [facility] Sodium 136 136 - 145 mmol/L 02/07/2018 1:22 PM CDT [facility] Potassium 3.6 3.5 - 4.5 mmol/L [facility]/07[facility]2018 [facility] Chloride 101 98 - 107 mmol/L [...] 02/07/2018 12:50 PM CDT 02/07/2018 12:55 PM [facility] Ester Barajas DO LAB - CHEMISTRY ORD ERABLES [facility] [address] [phone] from Last 3 Months or Most Recently Relevant to Health Maintenance Advance Directives * Full Code (Latest Code Status on File) Date Activated Date Inactivated Comments 02/15/2018 8:10 AM 02/15/2018 12:04 PM * Full Code Date Activated Date Inactivated Comments 02/14/2018 7:57 AM 02/14/2018 6:16 PM Care Teams Photonics Engineering Technologist Relationship Specialty Start Date End Date Boris Mcnair DO [address] [place] [address] PCP - General 04/07/19
--- OUTSIDE RECORDS SUMMARY | 2024-09-04 18:08 | XMS_ITS | Encounter Summary ---
Author Organization [facility] Address [address] [place] [address] Care Team Providers Care Septic Technician Name Role Phone Dominic Fernando MD Primary Care Provider [phone] Reason for Referral * Radiology Services (Routine) - Closed Specialty Diagnoses / Procedures Referred By Evan t Referred To Contact Vascular Lab Diagnoses Claudication of both lower extremities (HCC) Procedures VAS ARTERIAL ANKLE ARM INDEX Heather James, [facility] [address] [facility] [address] [place] [address] [facility] [address] [place] [address] Referral ID Status Reason Start Date Expiration Date Visits Re quested Visits Authorized [id number] Closed 10/23/2018 04/21/2019 1 1 ER REPAIRER Reason for Visit * Reason Comments Establish Care Encounter Details Date Type Department Care Team (Late st Contact Info) Description 10/23/2018 2:45 PM ZIPPER REPAIRER Office Visit [facility] [address] [place] [address] Jacob Heather M, [facility] [address] [facility] [address] [place] [address] Claudication of both lower extremities [...] Comments Blood Pressure 137/75 10/23/2018 2:37 PM ZIPPER REPAIRER Pulse 92 10/23/2018 2:37 PM ZIPPER REPAIRER Temperature - - Respiratory Rate - - Oxygen Saturation 96% 10/23/2018 2:37 PM ZIPPER REPAIRER Inhaled Oxygen Concentration - - Weight 87.5 kg (193 lb) 10/23/2018 2:37 PM ZIPPER REPAIRER Height 160 cm (5' 3 ) 10/23/2018 2:37 PM ZIPPER REPAIRER Body Mass Index 34.19 10/23/2018 2:37 PM ZIPPER REPAIRER documented in this encounter Functional Status Functional [...] Manda Pereira, MIKHAIL - 10/23/2018 2:59 PM ZIPPER REPAIRER Today we discussed: Smoking cessation was strongly [...] of these symptom seek urgent medical attention. ER REPAIRER documented in this encounter Progress Notes * Heather James, BAR PORTER-EVENT PLANNING INTERN - 10/23/2018 3:43 PM CST 10/23/2018 Name: Gege Vidal Date of : 1960 Referred By: Too Lara MD [facility] [place] [address] Subjective: Chief Complaint: Chief Complaint Patient presents [...] breath on 10/08/18. [facility] was taken to [facility]. CT brain did not reveal any evidence of stroke. Carotid duplex scan demonstrated <50% carotid stenosis bilaterally. All symptoms have resolved and she is at baseline neurologically. She has hx of DVT, on Xarelto managed by grape cutter, and continues to smoke. Reports she is [...] appointments for stress test and Holter monitor. ER REPAIRER documented in this encounter Plan of Treatment [...] (HCC) documented in this encounter Care Teams Septic Technician Relationship Specialty Start Date End Date Dominic Fernando MD [address] [place] [address] PCP - General 02/06/18 04/06/19 documented as of this encounter
--- OUTSIDE RECORDS SUMMARY | 2024-09-04 18:08 | XMS_ITS | Encounter Summary ---
Author Organization [facility] Address [address] [facility] [place] [address] Care Team Providers Care Dinkey Operator Name Role Phone Dominic Fernando MD Primary Care Provider [phone] Reason for Referral * Radiology Services (Routine) - Closed Specialty Diagnoses / Procedures Referred By Evan bo Referred To Contact Vascular Lab Diagnoses Carotid artery embolus, left Procedures VAS CAROTID DUPLEX BILATERAL Too Lara MD [address] [address] [address] Referral ID Status Reason Start Date Expiration Date Visits Re quested Visits Authorized [id number] Closed 03/04/2018 08/31/2018 1 1 Reason for Visit * Radiology Services (Routine) - Closed Specialty Diagnoses / Procedures Referred By Evan t Referred To Contact Vascular Lab Diagnoses Carotid artery embolus, left Procedures VAS CAROTID DUPLEX BILATERAL Too Lara MD [address] [facility] [address] [place] [address] [facility] [address] [place] [address] Referral ID Status Reason Start Date Expiration Date Visits Re quested Visits Authorized [id number] Closed 03/04/2018 08/31/2018 1 1 Encounter Details Date Type Department Care Team (Latest Contact Info) Description 04/10/2018 9:01 AM CDT - 04/10/2018 11:59 PM CDT Hospital Encounter [facility] [address] [place] [address] Too Lara MD [address] [facility] [address] [place] [address] Discharge Disposition: Home or Self [...] left documented in this encounter Care Teams Dinkey Operator Relationship Specialty Start Date End Date Dominic Fernando MD [address] [place] [address] PCP - General 02/06/18 04/06/19 documented as of this encounter
--- OUTSIDE RECORDS SUMMARY | 2024-09-04 18:08 | XMS_ITS | Patient Health Summary ---
Author Organization [facility] Address [address] [place] [address] Care Team Providers Care Sterile Supervisor Name Role Phone Boris Mcnair Primary Care Provider Note from [facility],non-owned Affiliates and Associated Physician Practices is amultiple site organization consisting of ambulatory clinics and hospital sitesin [place], [place] and [place]. This disclosure is being madepursuant to the Care Everywhere program and may not contain all information available regarding this patient. Last updated 18.[facility] Allergies * Adhesive Sensitivity(Other) -Medium Criticality * [...] MG tablet(Started 10/09/2018) * Cholecalciferol (VITAMIN D3) 35120 units capsule Active Problems Problem Noted Date [...] Deshaun Boland MD - 04/02/2019 Heather James AUTOMOTIVE DISMANTLER-GUEST ROOM INSPECTOR VASCULAR LAB OR DERABLES * VAS CAROTID DUPLEX BILATERAL (04/02/2019 9:18 AM CDT) Only the most recent of2 resultswithin the time period is included. Anatomical Region Laterality Modality Intravascular Ul trasound 04/02/2019 8:18 AM CDT Narrative Procedure Note Deshaun Boland MD - 04/02/2019 Too Lara MD VASCULAR LAB ORDERAB LES * CARDIAC EKG ORDER (08/04/2018 12:01 PM GEM EXPERT) Only the most recent of2 resultswithin the time period is included. Narrative 08/04/2018 12:01 PM GEM EXPERT Ordered by an unspecified provider. Scanned Document CARDIAC SERVICES ORD ERABLES * ACT - POCT (IP) [facility] (02/14/2018 12:55 PM CDT) Only the most recent of2 resultswithin the time period is included. Activated Clotting Time 255 sec [facility] POCT TESTING Blood BLOOD SPECIMEN / Unknown 02/14/2018 12:55 PM CDT Kevin Bower MD LAB - POINT OF CARE ORDERABLES [facility] POCT TESTING [address] [phone] * PREPARE (CROSSMATCH) RBC UNIT(S), 2 Units (02/14/2018 9:11 AM CDT) Unit Description LR Red Cells [facility] BLOOD BANK LAB Unit ABO O [facility] BLOOD [facility]ANK LAB Unit Rh POS [facility] BLOOD BANK LAB Product Code RL1 [facility] BLO OD BANK LAB Unit Donor # [id number] [facility] BLOOD BANK LAB Unit Status released [facility] BLOO D BANK LAB Product Number [id number] [facility] B LOOD BANK LAB Blood Type Barcode 5100 [facility] BLOOD BANK LAB Unit Description LR Red Cells [facility] BLOOD BANK LAB Unit ABO O [facility] BLOOD BANK LAB Unit Rh POS [facility] BLOOD BANK LAB Product Code RL3 [facility] BLO OD BANK LAB Unit Donor # [id number] [facility] BLOOD BANK LAB Unit Status released [facility] BLOO D BANK LAB Product Number [id number] [facility] B LOOD BANK LAB Blood Type Barcode 5100 [facility] BLOOD BANK LAB Blood Bank BLOOD SPECIMEN / Unknown 02/14/2018 9:11 AM CDT 02/14/2018 9:11 AM CDT Ester Barajas DO LAB - BLOOD BANK OR DERABLES Performing Organization Address [facility]/ZIP Co de Phone Number [facility] BLOOD BANK LAB [address] [place] [address] * TYPE + SCREEN PANEL (02/14/2018 9:05 AM CDT) Antibody Screen NEG 8 9:58 AM CDT [facility] BLOOD BANK LAB ABO Rh O POS 02/14/2018 9:58 AM CDT [facility] BLOOD BANK LAB Blood Bank BLOOD SPECIMEN / Unknown Venipuncture / Unknown 02/14/2018 9:05 AM CDT 02/14/2018 9:10 AM CDT Paulina Andujar AUTOMOTIVE DISMANTLER-WOUND NURSE LAB - BLOOD BA NK ORDERABLES Performing Organization Address [facility] Co de Phone Number [facility] BLOOD BANK LAB [address] [place] [address] * (ABNORMAL) PTT [facility] (02/07/2018 12:50 PM CDT) APTT 42.0(H) 23.0 - 38.4 Seconds 02/07/2018 1:16 PM CDT [facility] Comment: Suggested therapeutic range for full dose I.V. heparin therapy for venous thromboembolism is 66.0-91.0 seconds. Blood BLOOD SPECIMEN / Unknown Lab Venipuncture / Unknown 02/07/2018 12:50 PM CDT 02/07/2018 12:55 PM CDT Ester Barajas DO LAB - COAGULATION O RDERABLES Performing Organization Address [facility]/ZIP Co de Phone Number [facility] [address] [place] [address] * (ABNORMAL) PT-INR [facility] (02/07/2018 12:50 PM CDT) PT 19.0(H) 12.1 - 14.8 Seconds 02/07/2018 1:15 PM CDT [facility] INR 1.6 See Comment 02/07/2018 1:15 PM [facility] Comment: Suggested therapeutic range for low-intensity [...] Barajas DO LAB - COAGULATION O RDERABLES [facility] [address] [phone] * CBC W AUTO DIFFERENTIAL (02/07/2018 12:50 PM CDT) WBC 8.0 3.5 - 10.5 10? 3 /uL 02/07/2018 1:01 PM [facility] RBC 4.82 3.90 - 5.00 10? 6 /uL 02/07/2018 1:01 PM [facility] Hemoglobin 13.6 12.0 - 15.5 g/dL 02/07/2018 1:01 PM [facility] Hematocrit 40.6 35.0 - 45.0 % 02/07/2018 1:01 PM [facility] MCV 84.2 81.0 - 97.0 fL 02/07/2018 1:01 PM [facility] MCH 28.2 28.0 - 34.0 pg 02/07/2018 1:01 PM [facility] MCHC 33.5 32.0 - 36.0 g/dL 02/07/2018 1:01 PM [facility] Platelet Count 292 150 - 400 10? 3 /uL 02/07/2018 1:01 PM [facility] RDW-SD 39.7 36.0 - 50.0 fL 02/07/2018 1:01 PM [facility] RDW-CV 12.9 11.2 - 14.8 % 02/07/2018 1:01 PM [facility] MPV 10.3 9.3 - 12.8 fL 02/07/2018 1:01 PM [facility] Neutrophils % 64.9 35.0 - 70.0 % 02/07/2018 1:01 PM [facility] Lymphocytes % 25.9 19.7 - 55.1 % 02/07/2018 1:01 PM [facility] Monocytes % 6.3 3.0 - 15.0 % 02/07/2018 1:01 PM [facility] Eosinophils % 2.6 0.0 - 6.0 % 02/07/2018 1:01 PM [facility] Basophil % 0.3 0.0 - 1.5 % 02/07/2018 1:01 PM [facility] Neutrophils Absolute 5.2 1.6 - 7.0 10? 3 /uL 02/07/2018 1:01 PM [facility] Lymphocyte Absolute 2.1 0.8 - 2.9 10? 3 /uL 02/07/2018 1:01 PM [facility] Monocytes Absolute 0.50 0.14 - 0.66 10? 3 /uL 02/07/2018 1:01 PM [facility] Eosinophils Absolute 0.21 0.00 - 0.22 10? 3 /uL 02/07/2018 1:01 PM [facility] Basophils Absolute 0.02 0.00 - 0.06 10? 3 /uL 02/07/2018 1:01 PM [facility] Immature Granulocytes % 0.3 0.0 - 1.0 % 02/07/2018 1:01 PM [facility] Blood BLOOD SPECIMEN / Unknown Lab Venipuncture / Unknown 02/07/2018 12:50 PM CDT 02/07/2018 12:55 PM CDT Ester Barajas DO LAB - HEMATOLOGY OR DERABLES [facility] [address] [phone] * (ABNORMAL) COMPREHENSIVE METABOLIC PANEL (02/07/2018 12:50 PM CDT) BUN 8 7 - 26 mg/dL 02/07/2018 1:22 PM [facility] Creatinine 1.0 0.6 - 1.2 mg/dL 02/07/2018 1:22 PM [facility] Sodium 136 136 - 145 mmol/L 02/07/2018 1:22 PM [facility] Potassium 3.6 3.5 - 4.5 mmol/L 02/07/2018 1:22 PM [facility] Chloride 101 98 - 107 mmol/L 02/07/2018 1:22 PM [facility] CO2 25 22 - 29 mmol/L 02/07/2018 1:22 PM [facility] Glucose 93 70 - 115 mg/dL 02/07/2018 1:22 PM [facility] Calcium 9.9 8.4 - 10.2 mg/dL 02/07/2018 1:22 PM [facility] Protein Total 7.6 6.0 - 8.3 g/dL 02/07/2018 1:22 PM [facility] Albumin 3.5 3.4 - 5.0 g/dL 02/07/2018 1:22 PM [facility] Bilirubin Total 0.7 0.2 - 1.2 mg/dL 02/07/2018 1:22 PM [facility] Alkaline Phosphatase 109 40 - 150 Units/L 02/07/2018 1:22 PM [facility] ALT 22 0 - 55 Units/L 02/07/2018 1:22 PM [facility] AST 23 5 - 34 Units/L 02/07/2018 1:22 PM [facility] Anion Gap 14 8 - 18 02/07/2018 1:22 PM [facility] BUN/Creatinine Ratio 8 7 - 23 02/07/2018 1:22 PM [facility] Osmolality Calculated 280 270 - 300 mOsm/kg 02/07/2018 1:22 PM [facility] Albumin/Globulin Ratio 0.9(L) 1.1 - 2.3 02/07/2018 1:22 PM [facility] eGFR 57(L) >60 mL/min/1.7 3 m2 02/07/2018 1:22 PM [facility] Blood BLOOD SPECIMEN / Unknown Lab Venipuncture / Unknown 02/07/2018 12:50 PM CDT 02/07/2018 12:55 PM CDT Ester Barajas DO LAB - CHEMISTRY ORD ERABLES Performing Organization Address City/[facility]/ZIP Co de Phone Number [facility]ORY [place] [id number] [phone] * EKG 12-LEAD (02/07/2018 10:08 AM CDT) Ventricular Rate 57 BPM [facility] MUSE Atrial Rate 57 BPM [facility] MUSE P-R Interval 206 ms [facility] MUSE QRS Duration ms 84 ms [facility] Q-T Interval ms 428 ms [facility] MUSE QTC Calculation (Bezet) 416 ms [facility] MUSE Calculated P [place] 70 degrees [facility]USE Calculated R [place] 23 degrees [facility] Calculated T [place] 60 degrees [facility] Interpretation EKG Sinus bradycardia~Po or R wave progression in precordial leads~Otherwis e normal ECG~No previous ECGs available~Conf irmed by Ancelmo KISER, JEVON ([id number]), slot editor AMOS MCCLENDON ([id number]) on 02/13/2018 1:47:34 PM [facility] MUSE 02/07/2018 10:0 8 AM CDT 02/13/2018 1:47 PM CDT Ester Barajas DO ECG ORDERABLES Performing Organization Address [facility] Co de Phone Number [facility] MUSE * XR LUMBAR SPINE 4+ VW (08/19/2014 3:54 AM GEM EXPERT) Anatomical Region Laterality Modality Spine Radiographic Yulisa ging 08/19/2014 7:39 AM GEM EXPERT Impressions 08/19/2014 8:06 AM GEM EXPERT Mild degenerative changes. Edited by Juanita Odonnell on 08/19/2014 7:51 AM Narrative 08/19/2014 8:06 AM GEM EXPERT LUMBAR SPINE 5 VIEWS INDICATION: Low back [...] SHOULDER 2+ VW RIGHT (08/19/2014 3:54 AM GEM EXPERT) Anatomical Region Laterality Modality Upper Extremity Radiographic Yulisa ging 08/19/2014 8:04 AM GEM EXPERT Impressions 08/19/2014 8:04 AM GEM EXPERT No fracture. Narrative 08/19/2014 8:04 AM GEM EXPERT Right shoulder 2 views unilateral Indication: Right [...] MD DIAGNOSTIC IMAGING O RDERABLES Care Teams Sterile Supervisor Relationship Specialty Start Date End Date Boris Mcnair DO [address] [place] [address] PCP - General 04/07/19
--- OUTSIDE RECORDS SUMMARY | 2024-09-04 18:08 | XMS_ITS | Encounter Summary ---
Author Organization [facility] Address [address] [place] [address] Care Team Providers Care Armature Straightener Name Role Phone Dominic Fernando MD Primary Care Provider [phone] Encounter Details Date Type Department Care Team (Latest Contact Info) Description 02/07/2018 11:15 AM CDT - 02/07/2018 11:19 AM CDT Hospital Encounter [facility] EKG/[facility] [address] [place] [id number] Discharge Disposition: Home or Self Care Social [...] on filedocumented in this encounter Care Teams Armature Straightener Relationship Specialty [place] [address] [place] [phone] PCP - General 02/06/18 04/06/19 documented as of this encounter
--- OUTSIDE RECORDS SUMMARY | 2024-09-04 18:08 | XMS_ITS | Encounter Summary ---
Author Organization [facility] Address [address] [place] [address] Care Team Providers Care Occupational Therapy Program Director Name Role Phone Dominic Fernando MD Primary Care Provider [phone] Reason for Referral * Radiology Services (Routine) - Closed Specialty Diagnoses / Procedures Referred By Evan bo Referred To Contact Vascular Lab Diagnoses Carotid artery embolus, left Procedures VAS CAROTID DUPLEX BILATERAL Too Lara MD [address] [phone] [address] Referral ID Status Reason Start Date Expiration Date Visits Re quested Visits Authorized [id number] Closed 03/25/2019 04/24/2019 1 1 Reason for Visit * Radiology Services (Routine) - Closed Specialty Diagnoses / Procedures Referred By Contac t Referred To Contact Vascular Lab Diagnoses Carotid artery embolus, left Procedures VAS CAROTID DUPLEX BILATERAL Too Lara MD [address] [place] [address] [facility] Vascular Us [address] [place] [address] Referral ID Status Reason Start Date Expiration Date Visits Re quested Visits Authorized [id number] Closed 03/25/2019 04/24/2019 1 1 Encounter Details Date Type Department Care Team (Latest Contact Info) Description 04/02/2019 8:07 AM CDT - 04/02/2019 11:59 PM CDT Hospital Encounter [facility] VASCULAR US [address] [place] [address] Too Lara MD [address] [facility] [address] [place] [address] Radiology Diagnostic Discharge Disposition: Home [...] 20 MG tablet 02/01/2018 Cholecalciferol (VITAMIN D3) 61796 units capsule cyanocobalamin (VITAMIN B-12) 1000 MCG [...] left documented in this encounter Care Teams Occupational Therapy Program Director Relationship Specialty Start Date End [place] [address] PCP - General 02/06/18 04/06/19 documented as of this encounter
--- OUTSIDE RECORDS SUMMARY | 2024-09-04 18:08 | XMS_ITS | Referral Summary ---
Author Organization [facility] Address [address] [facility] [place] [address] Care Team Providers Care Children'S Tutor Name Role Phone Boris Mcnair Primary Care Provider [phone] Source Comments [facility],non-owned Affiliates and Associated Physician Practices is amultiple site organization consisting of ambulatory clinics and hospital sitesin [place], [place], [place] and [place]. This disclosure is being madepursuant to the Care Everywhere program and may not contain all information available regarding this patient. Last updated 18.[facility] Allergies Active Allergy Reactions [...] MG tablet 10/09/2018 Active Cholecalciferol (VITAMIN D3) 49744 units capsule Active Active Problems Problem Noted [...] 7 - 26 mg/dL 02/07/2018 1:22 PM [facility] Creatinine 1.0 0.6 - 1.2 mg/dL 02/07/2018 1:22 PM [facility] Sodium 136 136 - 145 mmol/L 02/07/2018 1:22 PM [facility] Potassium 3.6 3.5 - 4.5 mmol/L 02/07/2018 1:22 PM [facility] Chloride 101 98 - 107 mmol/L 02/07/2018 1:22 PM [facility] CO2 25 22 - 29 mmol/L 02/07/2018 1:22 PM [facility] Glucose 93 70 - 115 mg/dL 02/07/2018 1:22 PM [facility] Calcium 9.9 8.4 - 10.2 mg/dL 02/07/2018 1:22 PM [facility] Protein Total 7.6 6.0 - 8.3 g/dL 02/07/2018 1:22 PM [facility] Albumin 3.5 3.4 - 5.0 g/dL 02/07/2018 1:22 PM [facility] Bilirubin Total 0.7 0.2 - 1.2 mg/dL 02/07/2018 1:22 PM [facility] Alkaline Phosphatase 109 40 - 150 Units/L 02/07/2018 1:22 PM [facility] ALT 22 0 - 55 Units/L 02/07/2018 1:22 PM [facility] AST 23 5 - 34 Units/L 02/07/2018 1:22 PM [facility] Anion Gap 14 8 - 18 02/07/2018 1:22 PM CDT [facility] BUN/Creatinine Ratio 8 7 - 23 02/07/2018 1:22 PM CDT [facility] Osmolality Calculated 280 270 - 300 mOsm/kg 02/07/2018 1:22 PM T [facility] Albumin/Globulin Ratio 0.9(L) 1.1 - 2.3 02/07/2018 1:22 PM T [facility] eGFR 57(L) >60 mL/min/1.7 3 m2 02/07/2018 1:22 PM T [facility] Blood BLOOD SPECIMEN / Unknown Lab Venipuncture / Unknown 02/07/2018 12:50 PM CDT 02/07/2018 12:55 PM CDT Ester Barajas DO LAB - CHEMISTRY ORD ERABLES Performing Organization Address City/State/[facility] Co de Phone Number [facility] [address] [phone] from Last 3 Months or Most Recently Relevant to Health Maintenance Insurance Payer Benefit Plan / Group Subscriber ID Effective Dates Phone Address Type [facility] MANAGED MEDICARE ADV [facility] MEDICARE ADV [id number] Effective for all dates [phone] [address] [place] [address] Medicare-[place] naged Care MEDICAID [facility] MEDICAID [facility] Effective for all dates [address] [place] [id number] Medicaid [facility] MANAGED MEDICARE ADV [facility] MEDICARE ADV [id number] Effective for all dates [phone] [address] [place] [address] Medicare-[place] naged Care MEDICAID [facility] MEDICAID [facility] Effective for all dates [address] [place] [address] Medicaid C MANAGED MEDICARE ADV [facility] MEDICARE ADV [id number] Effective for all dates [address] [address] [place] [address] Medicare-[place] naged Care MEDICAID [facility] MEDICAID [facility] Effective for all dates [address] [place] [address] Medicaid [facility] MANAGED MEDICARE ADV [facility] MEDICARE ADV [id number] Effective for all dates [address] [address] [place] [address] Medicare-[facility] MEDICARE S MEDICARE PART B [id number] 04/16/2013-Pres ent [address] [address] [place] [address] Medicare MEDICAID - OUT OF [facility] MEDICAID - [place] PUBLIC AID [id number] 03/24/2022-Pres ent [address] [address] [place] [address] Medicaid MEDICARE MEDICARE PART A AND B [id number] 04/16/2013-Pres ent [address] [place] [address] Medicare Advance Directives * Full Code (Latest Code Status on File) Date Activated Date Inactivated Comments 02/15/2018 8:10 AM 02/15/2018 12:04 PM * Full Code Date Activated Date Inactivated Comments 02/14/2018 7:57 AM 02/14/2018 6:16 PM Care Teams Children'S Tutor Relationship Specialty Start Date End Date Boris Mcnair DO [address] [place] [address] PCP - General 04/07/19
--- OUTSIDE RECORDS SUMMARY | 2024-09-04 18:08 | XMS_ITS | Encounter Summary ---
Author Organization [facility] Address [address] [facility] [place] [address] Care Team Providers Care Recreation Establishment Manager Name Role Phone Dominic Fernando MD Primary Care Provider [phone] Reason for Visit * Reason Onset Date Comments General 03/27/2018 Hit Head/Headach e Bloodthinner Concern Encounter Details Date Type Department Care Team (Late st Contact Info) Description 03/27/2018 Telephone [facility] [address] [place] [address] Too Lara MD [address] [address] General (Hit Head/Headache Bloodthinner Concern) [...] is appropriate, no need to come to [facility] er. States she hit the back of [...] to speak to someone about this. CB# [phone] documented in this encounter Plan of Treatment Not on file documented as of this encounter Visit Diagnoses Not on filedocumented in this encounter Care Teams Recreation Establishment Manager Relationship Specialty Start Date End Date Dominic Fernando MD [address] [place] [address] PCP - General 02/06/18 04/06/19 documented as of this encounter
--- OUTSIDE RECORDS SUMMARY | 2024-09-04 18:08 | XMS_ITS | Encounter Summary ---
Author Organization [facility] Address [address] [facility] [place] [address] Care Team Providers Care Firearms Inspector Name Role Phone Dominic Fernando MD Primary Care Provider [phone] Reason for Visit * Reason Comments Establish Care Encounter Details Date Type Department Care Team (Late st Contact Info) Description 04/02/2019 11:00 AM CDT Office Visit [facility] Vascular Surgery [address] [place] [address] Too Lara MD [address] [phone] Carotid stenosis, left (Primary Dx) Social History [...] Barrera MD - 04/02/2019 11:23 AM CDT [facility] Vascular Surgery History and Physical Gege [...] breath on 10/08/18. [facility] was taken to [facility]. CT brain did not reveal any [...] (LIPITOR) 20 MG tablet Cholecalciferol (VITAMIN D3) 58949 units capsule cyanocobalamin (VITAMIN B-12) 1000 MCG [...] infarction documented in this encounter Care Teams Firearms Inspector Relationship Specialty Start Date End Date Dominic Fernando MD [address] [facility] [address] PCP - General 02/06/18 04/06/19 documented as of this encounter
--- OUTSIDE RECORDS SUMMARY | 2024-09-04 18:08 | XMS_ITS | Encounter Summary ---
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 02/14/2018 9:20 AM Posted [facility] OR OR 08 Vascular Feed In Worker Admit Surgical Panel 1 Procedure LRB Anes Op Region Wound Class Comments LEFT CAROTID EXPLORATION, LEFT CAROTID ANGIOGRAM Left General Neck Clean [address] [place] Medicare Part B Surgeon Surgeon Role [...] Physician Discharge Summary Patient ID: Gege Vidal [id number] y.o. 1960 Admit date: 02/14/2018 Discharge [...] the date of your surgery. Contact information: [address] [facility] [address] Signed: Roni Newell MD 02/15/2018 [...] Date 02/14/18 0700 - 02/15/18 0659 Shift [phone] 24 Hour Total I N T A [...] this encounter H&P Notes * Paulina Andujar, EDUCATION SUPERVISOR-ANIMATOR - 02/14/2018 8:32 AM CDT [facility] Vascular Surgery History and Physical Gege [...] informed consent, site carlota Gallardo Nina Andujar, JESSIE-ANIMATOR 02/14/2018 8:32 AM documented in this encounter [...] Name Type Priority Associated Diagnoses Date /Time CO KIRILL William ANGIO TEAM Imaging Routine Hypercholesteremia 02/14/2018 12:30 PM CDT Scheduled Orders Name Type Priority Associated Diagnoses Orde r Schedule CO KIRILL William ANGIO TEAM Imaging Routine Hypercholesteremia For radiant use only for 1 Occurrences starting 02/14/2018 until 02/14/2018 ACT - POCT (IP) [facility] Point of Care Testing Routine ONCE for 1 Occurrences starting 02/14/2018 until 02/14/2018 ACT - POCT (IP) [facility] Point of Care Testing Routine Hypercholesteremia Carotid artery embolus, left ONCE for 1 Occurrences starting 02/14/2018 until 02/14/2018 documented as of this encounter Procedures Procedure Name Priority Date/Time Associated Diagnosis Comments CARDIAC EKG ORDER 02/18/2018 9:0 4 PM CDT ACT - POCT (IP) [facility] Routine 02/14/2018 1 2:55 PM CDT ENDARTERECTOMY CAROTID (CEA) 02/14/2018 11:30 AM CDT Symptomatic carotid artery narrowing without infarction, left Case Notes MEDICARE PART B, I65.22 Special Needs SUPINE ACT - POCT (IP) [facility] Routine 02/14/2018 1 1:25 AM CDT Hypercholesteremi [...] ORD ERABLES * ACT - POCT (IP) [facility] (02/14/2018 12:55 PM CDT) Activated Clotting Time 255 sec [facility] POCT TESTING Blood BLOOD SPECIMEN / Unknown 02/14/2018 12:55 PM CDT Kevin Bower MD LAB - POINT OF CARE ORDERABLES Performing Organization Address [facility]/ZIP Co de Phone Number [facility] POCT TESTING [address] [place] [address] * ACT - POCT (IP) [facility] (02/14/2018 11:25 AM CDT) Activated Clotting Time 138 sec [facility] POCT TESTING Blood BLOOD SPECIMEN / Unknown 02/14/2018 11:25 AM CDT Kevin Bower MD LAB - POINT OF CARE ORDERABLES Performing Organization Address [facility]/ZIP Co de Phone Number [facility] POCT TESTING [address] [place] [address] * PREPARE (CROSSMATCH) RBC UNIT(S), 2 Units (02/14/2018 9:11 AM CDT) Unit Description LR Red Cells [facility] BLOOD BANK LAB Unit ABO O [facility] BLOOD BANK LAB Unit Rh POS [facility] BLOOD BANK LAB Product Code RL1 [facility] BLO OD BANK LAB Unit Donor # [id number] [facility] BLOOD BANK LAB Unit Status released [facility] BLOO D BANK LAB Product Number [id number] [facility] B LOOD BANK LAB Blood Type Barcode 5100 [facility] BLOOD BANK LAB Unit Description LR Red Cells [facility] BLOOD BANK LAB Unit ABO O [facility] BLOOD BANK LAB Unit Rh POS [facility] BLOOD BANK LAB Product Code RL3 [facility] BLO OD BANK LAB Unit Donor # [id number] [facility] BLOOD BANK LAB Unit Status released [facility] BLOO D BANK LAB Product Number [id number] [facility] B LOOD BANK LAB Blood Type Barcode 5100 [facility] BLOOD BANK LAB Blood Bank BLOOD SPECIMEN / Unknown 02/14/2018 9:11 AM CDT 02/14/2018 9:11 AM CDT Ester Barajas DO LAB - BLOOD BANK OR DERABLES Performing Organization Address [facility]/ZIP Co de Phone Number [facility] BLOOD BANK LAB [address] * TYPE + SCREEN PANEL (02/14/2018 9:05 AM CDT) Antibody Screen NEG 8 9:58 AM CDT [facility] BLOOD BANK LAB ABO Rh O POS 02/14/2018 9:58 AM CDT [facility] BLOOD BANK LAB Blood Bank BLOOD SPECIMEN / Unknown Venipuncture / Unknown 02/14/2018 9:05 AM CDT 02/14/2018 9:10 AM CDT Paulina Andujar EDUCATION SUPERVISOR-ANIMATOR LAB - BLOOD BA NK ORDERABLES Performing Organization Address [facility] Co de Phone Number [facility] BLOOD BANK LAB [address] [place] [address] documented in this encounter Visit Diagnoses Diagnosis [...] RN) documented in this encounter Care Teams [employer] Relationship Specialty Start Date End Date Dominic Fernando MD [address] [place] [address] PCP - General 02/06/18 04/06/19 documented as of this encounter
--- OUTSIDE RECORDS SUMMARY | 2024-09-04 18:08 | XMS_ITS | Encounter Summary ---
Author Organization [facility] Address [address] [facility] [place] [address] Care Team Providers Care Chair Name Role Phone Dominic Fernando MD Primary Care Provider [phone] Reason for Referral * Radiology Services (Routine) - Closed Specialty Diagnoses / Procedures Referred By Evan bo Referred To Contact Vascular Lab Diagnoses Claudication of both lower extremities (HCC) Procedures VAS ARTERIAL ANKLE ARM INDEX Heather James, SOFTWARE [facility] [address] [address] [facility] [address] Vascular [address] [place] [address] Referral ID Status Reason Start Date Expiration Date Visits Re quested Visits Authorized [id number] Closed 10/23/2018 04/21/2019 1 1 Electronically signed by Heather James [facility] at 04/02/2019 8:07 AM CDT Reason for Visit * Radiology Services (Routine) - Closed Specialty Diagnoses / Procedures Referred By Contburt bo Referred To Contact Vascular Lab Diagnoses Claudication of both lower extremities (HCC) Procedures VAS ARTERIAL ANKLE ARM INDEX Heather James, SOFTWARE WRITER-[facility] [address] [facility] [address] [place] [address] [facility] [address] Vascular Us [address] [place] [address] Referral ID Status Reason Start Date Expiration Date Visits Re quested Visits Authorized [id number] Closed 10/23/2018 04/21/2019 1 1 Encounter Details Date Type Department Care Team (Late st Contact Info) Description 04/02/2019 8:07 AM CDT - 04/02/2019 11:59 PM CDT Hospital Encounter [facility] VASCULAR US [address] [place] [address] Heather James, [facility] [address] [address] Discharge Disposition: Home or Self [...] 20 MG tablet 02/01/2018 Cholecalciferol (VITAMIN D3) 36586 units capsule cyanocobalamin (VITAMIN B-12) 1000 MCG [...] Deshaun Boland MD - 04/02/2019 Heather James SOFTWARE WRITER-DATA CONSULTANT VASCULAR LAB OR DERABLES documented in this encounter Visit Diagnoses Diagnosis Claudication of both lower extremities (HCC) documented in this encounter Care Teams Chair Relationship Specialty Start Date End Date Dominic Fernando MD [address] [place] [address] PCP - General 02/06/18 04/06/19 documented as of this encounter
--- OUTSIDE RECORDS SUMMARY | 2024-09-04 18:08 | XMS_ITS | Encounter Summary ---
Author Organization [facility] [employer] Address [address] [place] [address] Care Team Providers Care Metal Sprayer Production Name Role Phone Dominic Fernando MD Primary Care Provider [phone] Reason for Referral * Radiology Services (Routine) - Closed Specialty Diagnoses / Procedures Referred By Evan t Referred To Contact Vascular Lab Diagnoses Carotid artery embolus, left Procedures VAS CAROTID DUPLEX BILATERAL Too Lara MD [address] [address] [facility] Vascular [address] [place] [address] Referral ID Status Reason Start Date Expiration Date Visits Re quested Visits Authorized [id number] Closed 03/25/2019 04/24/2019 1 1 Reason for Visit * Reason Comments Results vascular lab results and hx left carotid exp. 02/14/18 Encounter Details Date Type Department Care Team (Late st Contact Info) Description 04/10/2018 12:00 PM CDT Office Visit [facility] Vascular Surgery [address] [place] [address] Too Lara MD [address] [facility] [address] [place] [address] Carotid artery embolus, left (Primary [...] questions or concerns contact our office at [phone]. documented in this encounter Progress Notes * [...] Lara MD 04/10/2018 12:30 PM * Shazia aJckson MD - 04/10/2018 11:56 AM CDT Vascular [...] left documented in this encounter Care Teams Metal Sprayer Production Relationship Specialty Start Date End Date Dominic Fernando MD [address] [place] [address] PCP - General 02/06/18 04/06/19 documented as of this encounter
--- OUTSIDE RECORDS SUMMARY | 2024-09-04 18:08 | XMS_ITS | Encounter Summary ---
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 Procedure: arterial line (34134). Procedure Section Indications: hypotension, continuous blood pressure [...] Event Date/Time: 02/14/2018 10:51 AM Procedure: intubation (56362). Procedure Section: Sedation: under general anesthesia. Indications [...] Event Date/Time: 02/14/2018 10:51 AM Procedure: intubation (78550). Procedure Section: Sedation: under general anesthesia. Indications [...] dicussed the anesthesia plan w/ the Resident, ART EDUCATOR or AA and The pateint agrees with the plan and accpets the risks and benefits I attest to documenting, updating or reviewing a patient's current medications using all immediate resources available on the date of the encounter. This list must include ALL known prescriptions, htzn-gya-pvgfrmmm, herbals, and vitamin/mineral/dietary (nutritional) supplements AND must contain the medications' name, dosages, frequency and route of administration. Attending's additional comments: Discussed the risks of anesthesia with the pt and family, they understand the risks of anesthesia include NE, CVA, hypotension, hypertension, as well as post [...] PLATELET, INR, APT, PTT in the last 00890 hours. No results for input(s): NA, SODIUM, POTASSIUM, CHLORIDE, CO2, BUN, CREATININE, GFR in the last 32521 hours. No results for input(s): GLUCOSE, CALCIUM, MAGNESIUM, ALT, AST in the last 07760 hours. No results for input(s): HCG in the last 22819 hours. Perioperative Cardiac Risk Stratification based on [...] 2 mg/dl? no RCRI correlation with MACE (www.GrownOutalc.com/uynadbc-koovspw-inrv-gepgc-joo-xsnmrielv-risk, originally validated by Jacob Grossman Circulation. 1999;100:6606-9510) 0 Points - 0.4% risk 1 Point [...] LEFT CAROTID EXPLORATION, LEFT CAROTID ANGIOGRAM - [address] [facility] Medicare Part B Surgeon(s): Primary: Too Lara [...] Note Patient Location: OR. Procedure: arterial line (52186). Procedure Section Indications: hypotension, continuous blood pressure [...] Event Date/Time: 02/14/2018 10:51 AM Procedure: intubation (59938). Procedure Section: Sedation: under general anesthesia. Indications [...] Event Date/Time: 02/14/2018 10:51 AM Procedure: intubation (59418). Procedure Section: Sedation: under general anesthesia. Indications [...] mg documented in this encounter Care Teams Tube Trailer Filler Relationship Specialty Start Date [place] [address] PCP - General 02/06/18 04/06/19 documented as of this encounter
--- OUTSIDE RECORDS SUMMARY | 2024-09-04 18:08 | XMS_ITS | CONTINUITY OF CARE DOCUMENT ---
Author Name keke davies Address Unknown Organization [facility] Address [address] [facility] [address] [place] [address] Phone [phone] Care Team Providers Care Plywood Patcher Name Role Phone Vin Tay MD Unavailable INSURANCE PROVIDERS Payer name Policy type / Coverage type [place] red republican ID [id number] PAY [id number]
--- OUTSIDE RECORDS SUMMARY | 2024-09-04 18:08 | XMS_ITS | Encounter Summary ---
Author Organization [facility] Address [address] [facility] [place] [address] Care Team Providers Care Cattyman Name Role Phone Dominic Fernando MD Primary Care Provider [phone] Encounter Details Date Type Department Care Team (Late st Contact Info) Description 02/07/2018 11:20 AM CDT - 02/07/2018 11:59 PM T Hospital Encounter [facility] LAB OP DRAW STATION [address] [place] [address] Dominic Fernando MD [address] [place] [address] Discharge Disposition: Home or Self Care Social [...] on filedocumented in this encounter Care Teams Cattyman Relationship Specialty Start Date End Date Dominic Fernando MD [address] [place] [address] PCP - General 02/06/18 04/06/19 documented as of this encounter
--- OUTSIDE RECORDS SUMMARY | 2024-09-04 18:08 | XMS_ITS | Encounter Summary ---
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 1960 Admit date: 02/14/2018 Discharge [...] the date of your surgery. Contact information: [address] [facility] [address] Signed: Roni Newell MD 02/15/2018 documented [...] Date 02/14/18 0700 - 02/15/18 0659 Shift [phone] 24 Hour Total I N T A [...] - 02/14/2018 6:22 PM CDT Received pt [facility] pacu. Admission completedc documented in this encounter H&P Notes * Paulina Andujar APRN-GOLD CUTTER - 02/14/2018 8:32 AM CDT [facility] Vascular Surgery History and Physical Gege Vidal [...] on angiogram. The angiogram was completed in SWEDISH and JULIO CESAR views and no lesion [...] 02/14/2018 until 02/14/2018 ACT - POCT (IP) [facility] Point of Care Testing Routine ONCE for 1 Occurrences starting 02/14/2018 until 02/14/2018 ACT - POCT (IP) [facility] Point of Care Testing Routine Hypercholesteremia Carotid artery embolus, left ONCE for 1 Occurrences starting 02/14/2018 until 02/14/2018 documented as of this encounter Procedures Procedure Name Priority Date/Time Associated Diagnosis Comments CARDIAC EKG ORDER 02/18/2018 9:0 4 PM CDT ACT - POCT (IP) [facility] Routine 02/14/2018 1 2:55 PM CDT ENDARTERECTOMY CAROTID (CEA) 02/14/2018 11:30 AM CDT Symptomatic carotid artery narrowing without infarction, left Case Notes MEDICARE PART B, I65.22 Special Needs SUPINE ACT - POCT (IP) [facility] Routine 02/14/2018 1 1:25 AM CDT Hypercholesteremi [...] ORD ERABLES * ACT - POCT (IP) [facility] (02/14/2018 12:55 PM CDT) Activated Clotting Time 255 sec [facility] POCT TESTING Blood BLOOD SPECIMEN / Unknown 02/14/2018 12:55 PM CDT Kevin Bower MD LAB - POINT OF CARE ORDERABLES Performing Organization Address [facility] Co de Phone Number [facility] POCT TESTING [address] [place] [address] * ACT - POCT (IP) [facility] (02/14/2018 11:25 AM CDT) Activated Clotting Time 138 sec [facility] POCT TESTING Blood BLOOD SPECIMEN / Unknown 02/14/2018 11:25 AM CDT Kevin Bower MD LAB - POINT OF CARE ORDERABLES Performing Organization Address [facility] de Phone Number [facility] POCT TESTING [address] [place] [address] * PREPARE (CROSSMATCH) RBC UNIT(S), 2 Units (02/14/2018 9:11 AM CDT) Unit Description LR Red Cells [facility] BLOOD BANK LAB Unit ABO O [facility] BLOOD BANK LAB Unit Rh POS [facility] BLOOD BANK LAB Product Code RL1 [facility] BLO OD BANK LAB Unit Donor # [id number] [facility] BLOOD BANK LAB Unit Status released [facility] BLOO D BANK LAB Product Number [id number] [facility] B LOOD BANK LAB Blood Type Barcode 5100 [facility] BLOOD BANK LAB Unit Description LR Red Cells [facility] BLOOD BANK LAB Unit ABO O [facility] BLOOD BANK LAB Unit Rh POS [facility] BLOOD BANK LAB Product Code RL3 [facility] BLO OD BANK LAB Unit Donor # [id number] [facility] BLOOD BANK LAB Unit Status released [facility] BLOO D BANK LAB Product Number [id number] [facility] B LOOD BANK LAB Blood Type Barcode 5100 [facility] BLOOD BANK LAB Blood Bank BLOOD SPECIMEN / Unknown 02/14/2018 9:11 AM CDT 02/14/2018 9:11 AM CDT Ester Barajas DO LAB - BLOOD BANK OR DERABLES [facility] BLOOD BANK LAB [address] * TYPE + SCREEN PANEL (02/14/2018 9:05 AM CDT) Antibody Screen NEG 8 9:58 AM CDT [facility] BLOOD BANK LAB ABO Rh O POS 02/14/2018 9:58 AM CDT [facility] BLOOD BANK LAB Blood Bank BLOOD SPECIMEN / Unknown Venipuncture / Unknown 02/14/2018 9:05 AM CDT 02/14/2018 9:10 AM CDT Paulina Andujar LEGAL RESEARCHER-GOLD CUTTER LAB - BLOOD BA NK ORDERABLES Performing Organization Address City/[facility]/ZIP Co de Phone Number [facility] BLOOD BANK LAB [address] documented in this encounter Visit Diagnoses [...] tissue, Wound 1119 ($ Given - Provider: oDminic Perea DO) levothyroxine (SYNTHROID) tablet 137 mcg [...] RN) documented in this encounter Care Teams Lighting Adviser Relationship Specialty Start Date End Date Dominic Fernando MD [address] [place] [address] PCP - General 02/06/18 04/06/19 documented as of this encounter
--- OUTSIDE RECORDS SUMMARY | 2024-09-04 18:08 | XMS_ITS | Encounter Summary ---
Author Organization [facility] Health Address [address] [place] [address] Care Team Providers Care Parts Fabricator Name Role Phone Dominic Fernando MD Primary Care Provider [phone] Reason for Referral * Radiology Services (Routine) - Closed Specialty Diagnoses / Procedures Referred By Evan t Referred To Contact Vascular Lab Diagnoses Carotid artery embolus, left Procedures VAS CAROTID DUPLEX BILATERAL Too Lara MD [address] [address] [facility] Vascular [address] [place] [address] Referral ID Status Reason Start Date Expiration Date Visits Re quested Visits Authorized [id number] Closed 03/04/2018 08/31/2018 1 1 Reason for Visit * Reason Comments Post-Op LEFT CAROTID EXP 6.1 .18 Encounter Details Date Type Department Care Team (Late st Contact Info) Description 02/27/2018 3:45 PM CDT Office Visit [facility] Vascular Surgery [address] [place] [address] Too Lara MD [address] [facility] [address] [place] [address] Carotid artery embolus, left (Primary [...] left documented in this encounter Care Teams Parts Fabricator Relationship Specialty Start Date End Date Dominic Fernando MD [address] [place] [address] PCP - General 02/06/18 04/06/19 documented as of this encounter
--- OUTSIDE RECORDS SUMMARY | 2024-09-04 18:09 | XMS_ITS | Encounter Summary ---
Author Organization [facility] [employer] [facility] Address [address] [place] [address] Care Team Providers Care Medical Sociologist Name Role Phone Eris Vu MD Primary Care Provider [phone] Reason for Visit * Reason Comments Med Refill Encounter Details Date Type Department Care Team ([facility] Contact Info) Description 08/20/[address] [facility] Oncology and Hematology Aroldo Betzaida [address] [place] [address] Chris Owens MD [facility] [employer] [address] [place] [address] Social History Tobacco Use Types Packs/Day [...] 12/04/2024 11:30 AM CDT Office Visit [facility] Oncology [facility] Hematology [facility] Azra [address] [place] [address] Chris Owens MD [facility] [employer] [address] [place] [address] documented as of this encounter Visit Diagnoses Not on filedocumented in this encounter Care Teams Medical Sociologist Relationship Specialty Start Date End Date Eris Vu MD PCP - General Family Practice 02/21/23 documented as of this encounter
--- OUTSIDE RECORDS SUMMARY | 2024-09-04 18:09 | XMS_ITS | Encounter Summary ---
Author Organization [facility] Address [address] [place] [address] Care Team Providers Care Mobile Nurse Name Role Phone Eris Vu MD Primary Care Provider [phone] Encounter Details Date Type Department Care Team [...] Description 12/04/2024 11:30 AM CDT Office Visit [facility] Oncology and Hematology - [place] [address] [place] [address] [facility] [address] [place] [address] Chris Owens MD [address] [facility] [address] [place] [address] documented as of this encounter Visit Diagnoses Not on filedocumented in this encounter Care Teams Mobile Nurse Relationship Specialty Start Date End Date Eris Vu MD PCP - General Family Practice 02/21/23 documented as of this encounter
--- OUTSIDE RECORDS SUMMARY | 2024-09-04 18:09 | XMS_ITS | Encounter Summary ---
Author Organization [facility] Address [address] [place] [address] Care Team Providers Care Medical Transcriptionist Name Role Phone Dominic Fernando MD Primary Care Provider [phone] Reason for Visit * Reason Comments Establish Care possible stenting L/ com carotid artery Encounter Details Date Type Department Care Team (Late st Contact Info) Description 02/06/2018 1:15 PM CDT Office Visit [facility] Vascular Surgery [address] [facility] [place] [address] Too Lara MD [address] [facility] [address] [place] [address] Symptomatic stenosis of left carotid [...] Primary documented in this encounter Care Teams Medical Transcriptionist Relationship Specialty Start Date End Date Dominic Fernando MD [address] [place] [address] PCP - General 02/06/18 04/06/19 documented as of this encounter
--- OUTSIDE RECORDS SUMMARY | 2024-09-04 18:09 | XMS_ITS | Encounter Summary ---
Author Organization [facility] [employer] [facility] Address [address] [place] [address] Care Team Providers Care Arson And Bomb Investigator Name Role Phone Eris Vu MD Primary Care Provider [phone] Reason for Visit * Reason Comments Med Refill Encounter Details Date Type Department Care Team ([facility] Contact Info) Description 05/23/2024 Refill [facility] Oncology and Hematology - [place]ldo [address] [place] [address] Chris Owens MD [facility] [employer] [address] [place] [address] Social History Tobacco Use Types Packs/Day [...] Upcoming Encounters Date Type Department Care Team ([facility] Contact Info) Description 12/04/2024 11:30 AM CDT Office Visit [facility] Oncology and Hematology - [place] [address] [place] [address] Chris Owens MD [facility] [employer] [address] [place] [address] documented as of this encounter Visit Diagnoses Not on filedocumented in this encounter Care Teams Arson And Bomb Investigator Relationship Specialty Start Date End Date Eris Vu MD PCP - General Family Practice 02/21/23 documented as of this encounter
--- OUTSIDE RECORDS SUMMARY | 2024-09-04 18:09 | XMS_ITS | Encounter Summary ---
Author Organization [facility] Address [address] [place] [address]. [place], [place] [address] [place] [address] Care Team Providers Care Pressed Or Blown Glass Worker Name Role Phone Eris Vu MD Primary Care Provider [phone] Encounter Details Date Type Department Care Team [...] on filedocumented in this encounter Care Teams Pressed Or Blown Glass Worker Relationship Specialty Start Date End Date Eris Vu MD [address] [place] [address] PCP - General FAMILY PRACTICE 06/05/24 documented as of this encounter
--- OUTSIDE RECORDS SUMMARY | 2024-09-04 18:09 | XMS_ITS | Encounter Summary ---
Author Organization [facility] Address [address] [facility] [place] [address] Care Team Providers Care Closet Builder Name Role Phone Unavailable Primary Care Provider Unavailabl e Reason for Visit * Reason Comments Fall Pt states she was he re yesterday. Tripped on the WR rug and landed on a wheelchair. Encounter Details Date Type Department Care Team (Late st Contact Info) Description 08/19/2014 2:25 AM MONOTYPE MACHINIST - 08/19/2014 4:44 AM MONOTYPE MACHINIST Emergency ER at [address] [address] Dom Grimaldo MD [address] [place] [address] EMERGENCY DEPT [place], [place] [id number] Fall, initial encounter; Back pain; Musculoskeletal pain [...] Comments Blood Pressure 117/65 08/19/2014 4:36 AM MONOTYPE MACHINIST Pulse 89 08/19/2014 4:36 AM MONOTYPE MACHINIST Temperature 36.5 ??C (97.7 ??F) 08/19/2014 12:[address] Respiratory Rate 18 08/19/2014 4:36 AM MONOTYPE MACHINIST Oxygen Saturation 100% 08/19/2014 4:36 AM MONOTYPE MACHINIST Inhaled Oxygen Concentration - - Weight 86.2 kg (190 lb) 08/19/2014 12:02 AM MONOTYPE MACHINIST Height 162.6 cm (5' 4 ) 08/19/2014 12:02 AM MONOTYPE MACHINIST Body Mass Index 32.61 08/19/2014 12:02 AM MONOTYPE MACHINIST documented in this encounter Discharge Instructions * Discharge Instructions* Dom Grimaldo MD - 08/19/2014 4:29 AM MONOTYPE MACHINIST Images from the original note were not [...] day. ?? Do not sit, drive, or street cleaning equipment operator one place for more than 30 minutes. [...] Document Reviewed: 01/21/2012 ExitCare?? Patient Information ??2014 Software 2000. Musculoskeletal Pain Musculoskeletal pain is muscle and [...] get your test results. ?? Only take nopw-gcf-xuipkgp or prescription medicines for pain, discomfort, or [...] Document Reviewed: 04/22/2009 ExitCare?? Patient Information ??2014 Software 2000. Low Cost Clinics (You may qualify for free service) If you are NOT a legal resident, citizen or refugee and don???t have health insurance you can go tothe following clinics: [facility] [address] [place] [address] Appointments: [phone] [facility], [facility] [address] [place] [address] [facility] [address] [address] Appointments: [phone] [facility], [facility] [address] [place] [address] [facility] [address] [place] [address] [facility], [facility] [address] [place] [address] [facility] [address] [place] [address] [facility] [address] [place] [address] [facility] [address] [place] [address] Appointments: [phone] [facility] - [facility] [address] [place] [address] without health insurance and you are not [...] For information about low cost medicines, call: TYPE MACHINIST documented in this encounter Medications at Time [...] with the patient: 08/19/2014 02:49 Gege Vidal [id number] [facility] History Chief Complaint Patient [...] patient to follow-[place]: [place] [address] [address] Follow up with your doctor or the referred doctor for further evaluation. Disposition: Discharged I have reviewed the information recorded by the scribe and agree with its accuracy and contents--Dr. Grimaldo 08/19/2014 4:38 AM Transcribed by Catherine Tay acting scribe on behalf of Dr. Grimaldo 08/19/2014 3:35 AM TYPE MACHINIST * Risa Marroquin - 08/19/2014 2:37 AM CST Pt presents to ED with c/o R shoulder, lower back, and R thumb pain. Pt states she was here visiting in ED on 08/17 when she tripped over WR rug and landed on a wheelchair. Pt rates pain 8/10 with movement. Pt updated to plan of care. Will continue to monitor. TYPE MACHINIST documented in this encounter Plan of Treatment Not on file documented as of this encounter Procedures Procedure Name Priority Date/Time Associated Diagnosis Comments XR LUMBAR SPINE 4VW OR MORE STAT 08/19/2014 3:54 AM MONOTYPE MACHINIST Fall, initial encounter XR SHOULDER RIGHT 2VW OR MORE STAT 08/19/2014 3:54 AM MONOTYPE MACHINIST Fall, initial encounter documented in this encounter Results * XR LUMBAR SPINE 4+ VW (08/19/2014 3:54 AM MONOTYPE MACHINIST) Anatomical Region Laterality Modality Spine Radiographic Yulisa ging 08/19/2014 7:39 AM MONOTYPE MACHINIST Impressions 08/19/2014 8:06 AM MONOTYPE MACHINIST Mild degenerative changes. Edited by Juanita Odonnell on 08/19/2014 7:51 AM Narrative 08/19/2014 8:06 AM MONOTYPE MACHINIST LUMBAR SPINE 5 VIEWS INDICATION: Low back [...] SHOULDER 2+ VW RIGHT (08/19/2014 3:54 AM MONOTYPE MACHINIST) Anatomical Region Laterality Modality Upper Extremity Radiographic Yulisa ging 08/19/2014 8:04 AM MONOTYPE MACHINIST Impressions 08/19/2014 8:04 AM MONOTYPE MACHINIST No fracture. Narrative 08/19/2014 8:04 AM MONOTYPE MACHINIST Right shoulder 2 views unilateral Indication: Right [...] at 0330 $ Given 08/19/2014 3:09 AM MONOTYPE MACHINIST 0.5 mg Ri ght Deltoid documented in this encounter Active and Recently Administered Medications Times are shown in MONOTYPE MACHINIST. Scheduled Medication Order 08/17/2014 08/18/2014 08/19/2014 HYDROmorphone PF (DILAUDID) injection 0.5 mg (COMPLETED) 0.5 mg, Intramuscular, ONCE, 1 dose, On Melissa 08/19/14 at 0330 0309 ($ Given - Prov ider: Risa Marroquin) documented in this encounter
--- OUTSIDE RECORDS SUMMARY | 2024-09-04 18:09 | XMS_ITS | Encounter Summary ---
Author Organization [facility] Address [address] [place] [address] Care Team Providers Care Tv Production Assistant Name Role Phone Eris Vu MD Primary Care Provider [phone] Encounter Details Date Type Department Care Team [...] [facility] Oncology and Hematology - [place] [address] [place] [address] [facility] [address] [place] [address] Chris Owens MD [address] [facility] [address] [place] [address] documented as of this encounter Visit Diagnoses Not on filedocumented in this encounter Care Teams Tv Production Assistant Relationship Specialty Start Date End Date Eris Vu MD PCP - General Family Practice 02/21/23 documented as of this encounter
--- OUTSIDE RECORDS SUMMARY | 2024-09-04 18:09 | XMS_ITS | Encounter Summary ---
Author Organization [facility] Address [address] [place] [address] Care Team Providers Care Rolls Mill Operator Name Role Phone Eris Vu MD Primary Care Provider [phone] Encounter Details Date Type Department Care Team (Late st Contact Info) Description 05/19/2024 External Device Data STL ABSTRACTION Provider, Abstract [...] CDT Office Visit [facility] Oncology and Hematology - [place] [address] [place] [address] [facility] [address] [place] [address] Chris Owens MD [address] [facility] [address] [place] [address] documented as of this encounter Visit Diagnoses Not on filedocumented in this encounter Care Teams Rolls Mill Operator Relationship Specialty Start Date End Date Eris Vu MD PCP - General Family Practice 02/21/23 documented as of this encounter
--- OUTSIDE RECORDS SUMMARY | 2024-09-04 18:09 | XMS_ITS | Encounter Summary ---
Author Organization [facility] [employer] [facility] Address [address] [place] [address] Care Team Providers Care Microsoft Exchange Administrator Name Role Phone Eris Vu MD Primary Care Provider [phone] Reason for Referral * CT Scan (Routine) - Closed Specialty Diagnoses / Procedures Referred By Evan t Referred To Contact Diagnoses Encounter for screening for lung cancer Personal history of nicotine dependence Procedures CT LUNG SCREENING (F/U DIAGNOSTIC) W CONTRAST Chris Owens MD [address] [employer] [address] [place] [address] [place] [address] Referral ID Status Reason Start Date Expiration Date V isits Requested Visits Authorized [id number] Closed [facility] CTS 06/04/2024 07/05/2025 1 1 Reason for Visit * Reason Comments Follow Up Encounter Details Date Type Department Care Team (Late st Contact Info) Description 06/04/2024 2:45 PM CDT Office Visit [facility] Oncology and Hematology [address] [place] [address] Chris Owens MD [address] [employer] [address] [place] [address] Chronic anemia (Primary Dx); Encounter [...] [facility] ([facility] Oncology and Hematology [facility] [address] [facility] [address] [place] [address] Chris Owens MD [address] [facility] [address] [place] [address] Scheduled Orders Name Type Priority [...] cancer documented in this encounter Care Teams Microsoft Exchange Administrator Relationship Specialty Start Date End Date Eris Vu MD PCP - General Family Practice 02/21/23 documented as of this encounter
--- OUTSIDE RECORDS SUMMARY | 2024-09-04 18:09 | XMS_ITS | Encounter Summary ---
Author Organization [facility] Address [address] [place] [address]. [place], [place] [address] [place] [address] Care Team Providers Care Plastics Supervisor Name Role Phone Eris Vu MD Primary Care Provider [phone] Reason for Visit * Auth/Cert (Routine) Specialty Diagnoses / Procedures Referred By Evan bo Referred To Contact Diagnoses H25.12 Procedures REMV CATARACT EXTRACAP,INSERT LENS LEFT CATARACT REMOVAL WITH IOL IMPLANT Referral ID Status Reason Start Date Expiration Date Visits Re quested Visits Authorized [id number] 1 1 Encounter Details Date Type Department Care Team (Late st Contact Info) Description 06/08/2024 10:50 AM CDT Anesthesia Event [facility] [address] [place] [address] Chanel Schuler CRNA [address] [facility] [address] [place] [address] Anesthesia Record Procedure Summary Procedure Name Responsible Anesthesiologist Anesthesia Start Time Anesthesia Stop Time LEFT CATARACT REMOVAL WITH IOL IMPLANT (Left: Eye) Chanel Schuler CRNA 06/08/24 1050 06/08/24 1109 Events Date Time Event Comment 06/08/2024 1046 1046 AN 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 * Anesthesia Preprocedure Evaluation - Chanle Schuler CRNA - 05/28/2024 7:32 AM CDT [...] mg documented in this encounter Care Teams Plastics Supervisor Relationship Specialty Start Date End Date Eris Vu MD [address] [place] [address] PCP - General FAMILY PRACTICE 06/05/24 documented as of this encounter
--- OUTSIDE RECORDS SUMMARY | 2024-09-04 18:09 | XMS_ITS | Encounter Summary ---
Author Organization [facility] Address [address] [place] [address] Care Team Providers Care Geochemistry Teacher Name Role Phone Eris Vu MD Primary Care Provider [phone] Reason for Visit * Reason Comments Med Refill Encounter Details Date Type Department Care Team ([facility] Contact Info) Description 05/12/2024 Refill [facility] Oncology and Hematology - Aroldo [address] [place] [address] Chris Owens MD [facility] [employer] [address] [place] [address] Social History Tobacco Use Types Packs/Day [...] Upcoming Encounters Date Type Department Care Team ([facility] Contact Info) Description 12/04/2024 11:30 AM CDT Office Visit [facility] Oncology and Hematology - [place]roldo [address] [place] [address] Chris Owens MD [facility] [employer] [address] [place] [address] documented as of this encounter Visit Diagnoses Not on filedocumented in this encounter Care Teams Geochemistry Teacher Relationship Specialty Start Date End Date Eris Vu MD PCP - General Family Practice 02/21/23 documented as of this encounter
--- OUTSIDE RECORDS SUMMARY | 2024-09-04 18:09 | XMS_ITS | Encounter Summary ---
Author Organization [facility] Address [address] [place] [address]. [place], [place] [address] [place] [address] Care Team Providers Care Dowel Setting Machine Operator Name Role Phone Eris Denson MD Primary Care Provider [phone] Reason for Visit * Auth/Cert (Routine) Specialty Diagnoses / Procedures Referred By Evan t Referred To Contact Diagnoses H25.12 Procedures REMV CATARACT EXTRACAP,INSERT LENS LEFT CATARACT REMOVAL WITH IOL IMPLANT Referral ID Status Reason Start Date Expiration Date Visits Re quested Visits Authorized [id number] 1 1 Encounter Details Date Type Department Care Team (Late st Contact Info) Description 06/08/2024 12:35 PM CDT - 06/08/2024 1:11 PM CDT [facility] [address] [place] [address] Tracee Denson MD [address] [facility] [address] [place] [address] LEFT CATARACT REMOVAL WITH IOL IMPLANT Surgery Details Date/Time Status Location OR Service Patient Class Case Class Case Type Trauma Case? 06/08/2024 12:35 PM Posted [facility] OR OR 1 Ophthalmology Short Stay/Outpat ient [...] Ask you doctor. You must have a lumber stacker driver for the day of surgery and your 1st post op exam. 11. ALWAYS WERE SUNGLASSES WHEN YOU GO OUTSIDE. These are found in your surgery kit. Dr. Denson OFFICE [phone] AFTER HOURS EMERGENCY [phone] * Attachments The following attachments cannot be sent through Care Everywhere. * Cataract Removal Discharge Instructions (Welsh) documented in this encounter Medications at Time [...] were discussed with the patient and/or family/personal promotions representative. Questions were answered and the patient/family/personal promotions representative verbalized understanding and desires to proceed. TRACEE DENSON MD documented in this encounter OR Notes * Op Note - Tracee Denson MD - 06/08/2024 11:26 AM CDT [place] OPERATIVE REPORT Date: 06/08/2024 Patient Name: [...] Given 06/08/2024 11:10 AM CDT 1 drop agkbykxq-buroukmlz-oxolctagtkjq e (MAXITROL) ophthalmic ointment As needed, Starting [...] Denson MD - Comment: verified with surgeon) bycgerde-verncnfjd-rycfzkadfwgui (MAXITROL) ophthalmic ointment (CANCELED) As needed, Starting on Sat06/08/24 at 1101, Until Sat06/08/24 at 1111, Intra-Op 1101 (Given - Provid er: Tracee Denson MD) povidone-iodine (BETADINE) 5 % ophthalmic solution (CANCELED) As needed, Starting on Sat06/08/24 at 1100, Until Sat06/08/24 at 1111, Intra-Op 1100 (Given - Provid er: Ivanna Watkins RN) documented in this encounter Care Teams Dowel Setting Machine Operator Relationship Specialty Start Date End Date Eris Denson MD [address] [place] [address] PCP - General FAMILY PRACTICE 06/05/24 documented as of this encounter
--- OUTSIDE RECORDS SUMMARY | 2024-09-04 18:09 | XMS_ITS | Clinical Summary ---
Author Organization [facility] Address [address] [place] [address] Care Team Providers Care Electronic Page Makeup System Operator Name Role Phone Eris Vu MD Primary Care Provider [phone] Allergies Active Allergy Reactions Criticality Noted Date Comments Adhesive Tape-Silicones Other (See Comments) Medium 08/19/2014 Blisters Codeine Shortness of Breath/Wheezing High 08/19/2014 Xgojumbpv-A-Tkggzyt-Se jun-Brom Other (See Comments) Low 08/19/2014 Alcohol- [...] Care Team Description 08/25/2024 Orders Only [facility] Oncology and Hematology - Aroldo [address] [place] [address] Chris Owens MD 08/20/2024 Refill [facility] Oncology and Hematology - Aroldo [address] [place] [address] Chris Owens MD 07/20/2024 External Device Data [...] Visit [facility] Oncology and Hematology [facility] [address] [facility] [address] [place] [address] Chris Owens MD [address] [facility] [address] [place] [address] Health Maintenance Due Date Last [...] CHEST WO CONTRAST Routine 08/25/2024 12:41 PM TEAROOM HOST MAMMO BILAT DIAGNOSTIC Routine 02/17/2024 1:[address] LUNG SCREENING (LDCT BASELINE OR ANNUAL) Routine 07/15/2019 Encounter for screening for lung cancer from Last 3 Months or Most Recently Relevant to Health Maintenance Results * CT CHEST WO CONTRAST (08/25/2024 12:41 PM TEAROOM HOST) Anatomical Region Laterality Modality Chest Other Chris Owens MD CT ORDERABLES * MAMMO BILAT DIAGNOSTIC (02/17/2024 1:15 PM CDT) Anatomical Region Laterality Modality Breast Bilateral Other Chris Owens MD MAMMO ORDERABLES * CT LUNG SCREENING (07/15/2019) Anatomical Region Laterality Modality Chest Other Chris Owens MD CT ORDERABLES from Last 3 Months or Most Recently Relevant to Health Maintenance Care Teams Electronic Page Makeup System Operator Relationship Specialty Start Date End Date Eris Vu MD PCP - General Family Practice 02/21/23
--- OUTSIDE RECORDS SUMMARY | 2024-09-04 18:09 | XMS_ITS | Encounter Summary ---
Author Organization [facility] Address [address] [place] [address] Care Team Providers Care Drapery Cutter Name Role Phone Dominic Fernando MD Primary Care Provider [phone] Encounter Details Date Type Department Care Team (Latest Contact Info) Description 02/07/2018 10:00 AM CDT Clinical Support [facility] [address] [place] [address] Too Lara MD [address] [address] Hypercholesteremia Anesthesia Record Procedure Summary [...] CARDIAC EKG ORDER 08/04/2018 12: 01 PM ACQUISITION PROFESSIONAL PTT [facility] AM Draw 02/07/2018 12:50 PM CDT Hypercholesteremia PT-INR [facility] AM Draw 02/07/2018 12:50 PM CDT Hypercholesteremia CBC W AUTO DIFFERENTIAL AM Draw 02/07/2018 12:50 PM CDT Hypercholesteremia COMPREHENSIVE METABOLIC PANEL AM Draw 02/07/2018 12:50 PM CDT Hypercholesteremia EKG 12-LEAD Routine 02/07/2018 10:08 AM CDT Hypercholesteremia documented in this encounter Results * CARDIAC EKG ORDER (08/04/2018 12:01 PM ACQUISITION PROFESSIONAL) Narrative 08/04/2018 12:01 PM ACQUISITION PROFESSIONAL Ordered by an unspecified provider. Scanned Document CARDIAC SERVICES ORD ERABLES * (ABNORMAL) PTT [facility] (02/07/2018 12:50 PM CDT) APTT 42.0(H) 23.0 - 38.4 Seconds 02/07/2018 1:16 PM CDT [facility] LABORATORY [facility] Comment: Suggested therapeutic range for full dose I.V. heparin therapy for venous thromboembolism is 66.0-91.0 seconds. Blood BLOOD SPECIMEN / Unknown Lab Venipuncture / Unknown 02/07/2018 12:50 PM CDT 02/07/2018 12:55 PM CDT Ester Barajas DO LAB - COAGULATION O RDERABLES [address] [phone] * (ABNORMAL) PT-INR [facility] (02/07/2018 12:50 PM CDT) PT 19.0(H) 12.1 - 14.8 Seconds 02/07/2018 1:15 PM CDT [facility] LABORATORY HOSPITAL INR 1.6 See Comment 02/07/2018 1:15 PM CDT [facility] Comment: Suggested therapeutic range for low-intensity coumadin therapy for venous thromboembolism prophylaxis is an INR of 2.0-3.0. ??For high risk patients (Mitral Valve Prosthesis, Atrial Fibrillation, history of TIA/stroke), suggested prophylactic therapeutic range is an INR of 2.5-3.5. Blood BLOOD SPECIMEN / Unknown Lab Venipuncture / Unknown 02/07/2018 12:50 PM CDT 02/07/2018 12:55 PM CDT Estre K Karl DO LAB - COAGULATION O RDERABLES [facility] [address] [place] [address] * (ABNORMAL) COMPREHENSIVE METABOLIC PANEL (02/07/2018 12:50 [...] - CHEMISTRY ORD ERABLES Performing Organization Address City/State/[facility] Co de Phone Number [address] [phone] * CBC W AUTO DIFFERENTIAL (02/07/2018 12:50 [...] Barajas DO LAB - HEMATOLOGY OR DERABLES [facility] [address] [phone] * EKG 12-LEAD (02/07/2018 10:08 AM CDT) Ventricular Rate 57 BPM [facility] Atrial Rate 57 BPM [facility] P-R Interval 206 ms [facility] QRS Duration ms 84 ms [facility] Q-T Interval ms 428 ms H MUSE QTC Calculation (Bezet) 416 ms [facility] Calculated P [place] 70 degrees [facility] Calculated R [place] 23 degrees [facility] Calculated T [place] 60 degrees [facility] Interpretation EKG Sinus bradycardia~Po or R wave progression in precordial leads~Otherwis e normal ECG~No previous ECGs available~Conf irmed by Ancelmo KISER, JEVON ([id number]), purchase request editor AMOS MCCLENDON ([id number]) on 02/13/2018 1:47:34 PM [facility] MUSE 02/07/2018 10:0 8 AM CDT 02/13/2018 1:47 PM CDT Ester Barajas DO ECG ORDERABLES Performing Organization Address City/[facility] Co de Phone Number [facility] documented in this encounter Visit Diagnoses Diagnosis Hypercholesteremia- Primary Pure hypercholesterolemia documented in this encounter Care Teams Drapery Cutter Relationship Specialty Start Date End Date Dominic Fernando MD [address] [place] [address] PCP - General 02/06/18 04/06/19 documented as of this encounter
--- OUTSIDE RECORDS SUMMARY | 2024-09-04 18:09 | XMS_ITS | Encounter Summary ---
Author Organization [facility] Address [address] [place] [address]. [place], [place] [address] [place] [address] Care Team Providers Care Caption Writer Name Role Phone Eris Denson MD Primary Care Provider [phone] Reason for Visit * Auth/Cert (Routine) Specialty Diagnoses / Procedures Referred By Evan bo Referred To Contact Diagnoses H25.12 Procedures REMV CATARACT EXTRACAP,INSERT LENS LEFT CATARACT REMOVAL WITH IOL IMPLANT Referral ID Status Reason Start Date Expiration Date Visits Re quested Visits Authorized [id number] 1 1 Encounter Details Date Type Department Care Team (Latest Contact Info) Description 06/08/2024 9:35 AM CDT - 06/08/2024 11:26 AM CDT Hospital Encounter [facility] [address] [place] [address] Tracee Denson MD [address] [facility] [address] [place] [address] Discharge Disposition: Home or Self Care (Routine [...] Granado RN - 06/08/2024 9:41 AM CDT [facility] POST-OP INSTRUCTIONS FOLLOWING CATARACT [...] Ask you doctor. You must have a sweeper driver for the day of surgery and your 1st post op exam. 11. ALWAYS WERE SUNGLASSES WHEN YOU GO OUTSIDE. These are found in your surgery kit. Dr. Denson OFFICE [phone] AFTER HOURS EMERGENCY [phone] * Attachments The following attachments cannot be sent through Care Everywhere. * Cataract Removal Discharge Instructions (Thai) documented in this encounter Medications at Time [...] were discussed with the patient and/or family/personal shipping services sales representative. Questions were answered and the patient/family/personal shipping services sales representative verbalized understanding and desires to proceed. TRACEE DENSON MD documented in this encounter OR Notes * Op Note - Tracee Denson MD - 06/08/2024 11:26 AM CDT [place] OPERATIVE REPORT Date: 06/08/2024 Patient Name: [...] Denson MD - Comment: verified with surgeon) lqdgizud-actbriwzd-ambhruurnpwyb (MAXITROL) ophthalmic ointment (CANCELED) As needed, Starting on Sat06/08/24 at 1101, Until Sat06/08/24 at 1111, Intra-Op 1101 (Given - Provid er: Tracee Denson MD) povidone-iodine (BETADINE) 5 % ophthalmic solution (CANCELED) As needed, Starting on Sat06/08/24 at 1100, Until Sat06/08/24 at 1111, Intra-Op 1100 (Given - Provid er: Ivanna Watkins RN) documented in this encounter Care Teams Caption Writer Relationship Specialty Start Date End Date Eris Denson MD [address] [place] [address] PCP - General FAMILY PRACTICE 06/05/24 documented as of this encounter
--- OUTSIDE RECORDS SUMMARY | 2024-09-04 18:09 | XMS_ITS | Encounter Summary ---
Author Organization [facility] Address [address] [place] [address] Care Team Providers Care Repairer Typewriter Name Role Phone Eris Vu MD Primary Care Provider [phone] Encounter Details Date Type Department Care Team [...] [facility] Oncology and Hematology - [place] [address] [place] [address] [address] [place] [address] [place] [address] [place] [address] [address] [place] [address] documented as of this encounter Visit Diagnoses Not on filedocumented in this encounter Care Teams Repairer Typewriter Relationship Specialty Start Date End Date Eris Vu MD PCP - General Family Practice 02/21/23 documented as of this encounter
--- OUTSIDE RECORDS SUMMARY | 2024-09-04 18:09 | XMS_ITS | Encounter Summary ---
Author Organization [facility] Address [address] [facility] [place] [address] Care Team Providers Care Director Voice Name Role Phone Unavailable Primary Care Provider Unavailabl e Reason for Visit * Reason Onset Date Comments Referral 02/03/2018 Encounter Details Date Type Department Care Team (Late st Contact Info) Description 02/03/2018 Telephone [facility] General Internal Medicine [address] [address] Dominic Fernando MD [address] [place] [address] Referral Social History Tobacco Use [...] from Dr Edward Grossman's office called CB# [phone] FAX# [phone] Called in error documented in this encounter Plan of Treatment Not on file documented as of this encounter Visit Diagnoses Not on filedocumented in this encounter
--- OUTSIDE RECORDS SUMMARY | 2024-09-04 18:09 | XMS_ITS | Encounter Summary ---
Author Organization [facility] [employer] [facility] Address [address] [place] [address] Care Team Providers Care Burglar Alarm Operator Name Role Phone Eris Vu MD Primary Care Provider [phone] Encounter Details Date Type Department Care Team (Late Contact Info) Description 06/03/2024 Orders Only [facility] Oncology and Hematology [facility] [address] [place] [address] Chris Owens MD [address] [place] [address] [employer] [address] [address] Social History Tobacco Use Types [...] [facility] Oncology and Hematology [place] [address] [place] [address] Chris Owens MD [address] [place] [address] [employer] [address] [address] documented as of this encounter Procedures Procedure Name Priority Date/Time Associated Diagnosis Comments CBC WITH DIFFERENTIAL Routine 06/03/2024 4:14 PM CDT documented in this encounter Results * CBC WITH DIFFERENTIAL (06/03/2024 4:14 PM CDT) Blood Chris Owens MD HEMATOLOGY ORDERABLE S documented in this encounter Visit Diagnoses Not on filedocumented in this encounter Care Teams Burglar Alarm Operator Relationship Specialty Start Date End Date Eris Vu MD PCP - General Family Practice 02/21/23 documented as of this encounter
--- OUTSIDE RECORDS SUMMARY | 2024-09-04 18:09 | XMS_ITS | Encounter Summary ---
Author Organization [facility] [employer] Address [address] [place] [address] Care Team Providers Care Psychometrician Name Role Phone Eris Vu MD Primary Care Provider [phone] Encounter Details Date Type Department Care Team (Late Contact Info) Description 08/25/2024 Orders Only [facility] Oncology [facility] [address] [place] [address] Chris Owens MD [address] [place], [place] [address] [address] [place] [address] Social History Tobacco Use Types Packs/Day [...] Visit [facility] Oncology and Hematology [facility] [address] [place] [address] Chris Owens MD [address] [place] [address] [employer] [address] [place] [address] documented as of this encounter Procedures Procedure Name Priority Date/Time Associated Diagnosis Comments CT CHEST WO CONTRAST Routine 08/25/2024 12:41 PM PATIENT SERVICE SPECIALIST documented in this encounter Results * CT CHEST WO CONTRAST (08/25/2024 12:41 PM PATIENT SERVICE SPECIALIST) Anatomical Region Laterality Modality Chest Other Chris Owens MD CT ORDERABLES documented in this encounter Visit Diagnoses Not on filedocumented in this encounter Care Teams Psychometrician Relationship Specialty Start Date End Date Eris Vu MD PCP - General Family Practice 02/21/23 documented as of this encounter
--- OUTSIDE RECORDS SUMMARY | 2024-09-04 18:09 | XMS_ITS | Encounter Summary ---
Author Organization [facility] Address [address] [place] [address] Care Team Providers Care Veterans Rehabilitation Counselor Name Role Phone Eris Vu MD Primary Care Provider [phone] Encounter Details Date Type Department Care Team [...] Office Visit [facility] Oncology and Hematology - [place] [address] [place] [address] [address] [place] [address] [place] [address] [place] [address] [address] [place] [address] documented as of this encounter Visit Diagnoses Not on filedocumented in this encounter Care Teams Veterans Rehabilitation Counselor Relationship Specialty Start Date End Date Eris Vu MD PCP - General Family Practice 02/21/23 documented as of this encounter
--- OUTSIDE RECORDS SUMMARY | 2024-09-04 18:09 | XMS_ITS | Clinical Summary ---
Author Organization [facility] Address [address] [place] [address]. [place] [address] [place] [address] Care Team Providers Care Loading Inspector Name Role Phone Eris Vu MD Primary Care Provider [phone] Allergies Active Allergy Reactions Criticality Noted Date [...] CDT - 06/08/2024 1:11 PM CDT [facility] [address] [place] [address] Jadon Vu MD LEFT CATARACT REMOVAL WITH IOL IMPLANT 06/08/2024 10:50 AM CDT Anesthesia Event [facility] [address] [place] [address] Chanel Schuler CRNA 06/08/2024 9:35 AM CDT - 06/08/2024 11:26 AM CDT Hospital Encounter [facility] [address] [place] [address] Jadon Vu MD Discharge Disposition: Home or [...] 1991 Zoster Vaccines (1 of 2) 2011 Mammogram Screening 07/18/2022 07/18/2020, 07/15/2019 COVID-19 Vaccine ( - 2023-2 5 season) 2024 Influenza Adult (#1) 2024 RSV Immunization or 60+ Years (1 - 1-dose 75+ series) 2036 Meningococcal Vaccine Aged Out No daniela brook eligible based on patient's age to complete this topic RSV Immunizations Under 20 Months Aged Out No longer eligible b ased on patient's age to complete this topic Medical Devices Implanted Type Area Director [employer] Device Identifier Shelf Expiration Date Model / Serial / Lot Tecnis 1-Piece Iol Implanted:Qty: 1 on 06/08/2024 by Jadon Vu MD at [facility] Left: Eye [employer] 10/27/2026 / [id number] / Procedures Procedure Name Priority Date/Time Associated Diagnosis Comments REMV CATARACT EXTRACAP,INSERT LENS 06/08/2024 10:49 AM CDT H25.12 Special Needs C from Last 3 Months Insurance [place] [address] MEDICAID Care Teams Loading Inspector Relationship Specialty Start Date End Date Eris Vu MD [address] [place] [address] PCP - General FAMILY PRACTICE 06/05/24
--- OUTSIDE RECORDS SUMMARY | 2024-09-04 18:10 | XMS_ITS | Encounter Summary ---
Author Organization [facility] Address [address] [place] [address] Care Team Providers Care Senior Application Software Engineer Name Role Phone Eris Vu MD Primary Care Provider [phone] Encounter Details Date Type Department Care Team (Late Contact Info) Description 02/22/2023 Orders Only [facility] Oncology and Hematology [facility] [address] [place] [address] Chris Owens MD [address] [place] [address] [employer] [address] [address] [address] Social History Tobacco Use Types [...] Description 12/04/2024 11:30 AM CDT Office Visit [facility] Oncology and Hematology - [place] [address] [place] [address] Chris Owens MD [address] [place] [address] [employer] [address] [place] [address] documented as of this encounter Procedures [...] on filedocumented in this encounter Care Teams Senior Application Software Engineer Relationship Specialty Start Date End Date Eris Vu MD PCP - General Family Practice 02/21/23 documented as of this encounter
--- OUTSIDE RECORDS SUMMARY | 2024-09-04 18:10 | XMS_ITS | Encounter Summary ---
Author Organization [facility] [employer] [facility] Address [address] [place] [address] Care Team Providers Care Truer Pinion And Wheel Name Role Phone Eris Vu MD Primary Care Provider [phone] Reason for Referral * Radiology Services (Routine) - Closed Specialty Diagnoses / Procedures Referred By Contburt t Referred To Contact Diagnoses Abnormal mammogram of left breast Procedures MAMMO DIAG UNI LEFT 3D HUMBERTO W OR WO CAD CHG DIAGNOSTIC MAMMOGRAPHY COMPUTER-AIDED DETCJ UNI CHG DIGITAL BREAST TOMOSYNTHESIS UNILATERAL Chris Owens MD [address] [place] [address] [place] [address] Referral ID Status Reason Start Date Expiration Date V isits Requested Visits Authorized [id number] Closed [facility] CTS 08/12/2023 09/11/2024 1 1 TWISTER Encounter Details Date Type Department Care Team (Late st Contact Info) Description 08/12/2023 Orders Only [facility] Oncology and Hematology [place] [address] [facility] [address] [place] [address] Chris Owens MD [address] [place] [address] Abnormal mammogram of left breast [...] 11:30 AM CDT Office Visit [facility] Oncology and Hematology - [place] [address] [facility] [address] [place] [address] Chris Owens MD [address] [facility] [address] [place] [address] Scheduled Orders Name Type Priority Associated Diagnoses Orde r Schedule MAMMO DIAG UNI LEFT 3D HUMBERTO W OR WO CAD Imaging Routine Abnormal mammogram of left breast 1 Occurrences starting 08/12/2023 until 02/09/2025 documented as of this encounter Procedures Procedure Name Priority Date/Time Associated Diagnosis Comments MAMMO SCREENING BILAT Routine 08/07/2023 11:16 AM SLAT TWISTER documented in this encounter Results * MAMMO SCREENING BILAT (08/07/2023 11:16 AM SLAT TWISTER) Anatomical Region Laterality Modality Breast Bilateral Other Chris Owens MD MAMMO ORDERABLES documented in this encounter Visit Diagnoses Diagnosis Abnormal mammogram of left breast- Primary documented in this encounter Care Teams Truer Pinion And Wheel Relationship Specialty Start Date End Date Eris Vu MD PCP - General Family Practice 02/21/23 documented as of this encounter
--- OUTSIDE RECORDS SUMMARY | 2024-09-04 18:10 | XMS_ITS | Encounter Summary ---
Author Organization [facility] [employer] Address [address] [place] [address] Care Team Providers Care Criminal Analyst Name Role Phone Eris Vu MD Primary Care Provider [phone] Encounter Details Date Type Department Care Team (Late Contact Info) Description 02/21/2023 Orders Only [facility] Oncology and Hematology [place] [address] [place] [address] Chris Owens MD 222[facility] [employer] [address] [place] [address] Hypercoagulable state Social History Tobacco Use [...] 12/04/2024 11:30 AM CDT Office Visit [facility] Oncology and Hematology - [place] [address] [place] [address] Chris Owens MD [address] [facility] [employer] [address] [place] [address] documented as of this encounter Visit Diagnoses Diagnosis Hypercoagulable state Primary hypercoagulable state documented in this encounter Care Teams Criminal Analyst Relationship Specialty Start Date End Date Eris Vu MD PCP - General Family Practice 02/21/23 documented as of this encounter
--- OUTSIDE RECORDS SUMMARY | 2024-09-04 18:10 | XMS_ITS | Encounter Summary ---
Author Organization [facility] [email or web address] [facility] Address [address] [place] [address] Care Team Providers Care Supervisor Wash House Name Role Phone Eris Vu MD Primary Care Provider [phone] Reason for Visit * Reason Comments Med Refill Encounter Details Date Type Department Care Team ([facility] Contact Info) Description 02/15/2024 Refill [facility] Oncology and Hematology - [place] [address] [place] [address] Chris Owens MD [facility] [employer] [address] [place] [address] Social History Tobacco Use Types Packs/Day [...] Upcoming Encounters Date Type Department Care Team ([facility] Contact Info) Description 12/04/2024 11:30 AM CDT Office Visit [facility] Oncology and Hematology - [place] [address] [place] [address] Chris Owens MD [facility] [employer] [address] [place] [address] documented as of this encounter Visit Diagnoses Not on filedocumented in this encounter Care Teams Supervisor Wash House Relationship Specialty Start Date End Date Eris Vu MD PCP - General Family Practice 02/21/23 documented as of this encounter
--- OUTSIDE RECORDS SUMMARY | 2024-09-04 18:10 | XMS_ITS | Encounter Summary ---
Author Organization [facility] Address [address] [place] [address] Care Team Providers Care Supervisor Ornamental Ironworking Name Role Phone Eris Vu MD Primary Care Provider [phone] Encounter Details Date Type Department Care Team [...] [facility] Oncology and Hematology - [place] [address] [place] [address] [facility] [address] [place] [address] Chris Owens MD [address] [facility] [address] [place] [address] documented as of this encounter Visit Diagnoses Not on filedocumented in this encounter Care Teams Supervisor Ornamental Ironworking Relationship Specialty Start Date End Date Eris Vu MD PCP - General Family Practice 02/21/23 documented as of this encounter
--- OUTSIDE RECORDS SUMMARY | 2024-09-04 18:10 | XMS_ITS | Encounter Summary ---
Author Organization [facility] [employer] [facility] Address [address] [place] [address] Care Team Providers Care Plastics Supervisor Name Role Phone Eris Vu MD Primary Care Provider [phone] Reason for Visit * Reason Comments Med Refill Encounter Details Date Type Department Care Team ([facility] Contact Info) Description 02/20/2024 Refill [facility] Oncology and Hematology - [place] [address] [place] [address] Chris Owens MD [facility] [employer] [address] [place] [address] Social History Tobacco Use Types Packs/Day [...] Description 12/04/2024 11:30 AM CDT Office Visit [facility] Oncology and Hematology - [place] [address] [place] [address] Chris Owens MD [facility] [employer] [address] [place] [address] documented as of this encounter Visit Diagnoses Not on filedocumented in this encounter Care Teams Plastics Supervisor Relationship Specialty Start Date End Date Eris Vu MD PCP - General Family Practice 02/21/23 documented as of this encounter
--- OUTSIDE RECORDS SUMMARY | 2024-09-04 18:10 | XMS_ITS | Encounter Summary ---
Author Organization [facility] Address [address] [place] [address] Care Team Providers Care Restaurant Recruiter Name Role Phone Eris Vu MD Primary Care Provider [phone] Encounter Details Date Type Department Care Team [...] [facility] Oncology and Hematology - [place] [address] [place] [address] [facility] [address] [place] [address] Chris Owens MD [address] [facility] [address] [place] [address] documented as of this encounter Visit Diagnoses Not on filedocumented in this encounter Care Teams Restaurant Recruiter Relationship Specialty Start Date End Date Eris Vu MD PCP - General Family Practice 02/21/23 documented as of this encounter
--- OUTSIDE RECORDS SUMMARY | 2024-09-04 18:10 | XMS_ITS | Encounter Summary ---
Author Organization [facility] [employer] [facility] Address [address] [place] [address] Care Team Providers Care Banquet Supervisor Name Role Phone Eris Vu MD Primary Care Provider [phone] [phone] Reason for Visit * Reason Comments Med Refill Encounter Details Date Type Department Care Team ([facility] Contact Info) Description 03/09/2023 Refill [facility] Oncology and Hematology - Aroldo [address] [place] [address] Chris Owens MD [facility] [address] [place] [address] Social History Tobacco Use Types Packs/Day [...] Upcoming Encounters Date Type Department Care Team ([facility] Contact Info) Description 12/04/2024 11:30 AM CDT Office Visit [facility] Oncology and Hematology - Aroldo [address] [place] [address] Chris Owens MD [facility] [address] [place] [address] documented as of this encounter Visit Diagnoses Not on filedocumented in this encounter Care Teams Banquet Supervisor Relationship Specialty Start Date End Date Eris Vu MD PCP - General Family Practice 02/21/23 documented as of this encounter
--- OUTSIDE RECORDS SUMMARY | 2024-09-04 18:10 | XMS_ITS | Encounter Summary ---
Author Organization [facility] [employer] [facility] Address [address] [place] [address] Care Team Providers Care District Home Economics Agent Name Role Phone Eris Vu MD Primary Care Provider [phone] [phone] Reason for Visit * Reason Onset Date Comments Results 08/28/2023 Encounter Details Date Type Department Care Team (Late st Contact Info) Description 08/28/2023 Telephone [facility] Oncology and Hematology - Aroldo [address] [facility] 200 [place] [address] Chris Owens MD [address] [facility] [address] [place] [address] Results Social History Tobacco Use [...] Owens MD sent at 08/27/2023 4:54 PM PHYTOPATHOLOGY TEACHER ----- Regarding: RE: Lung Screening CT lung cancer screening normal. Repeat screening will be done in 1 year. ----- Message ----- From: Siobhan Bernal Sent: 08/27/2023 3:07 PM PHYTOPATHOLOGY TEACHER To: Chris Owens MD Subject: Lung Screening Could you please look over lung screening? Patient is calling and wanting to know what her results are. She does not follow up until February of 2024. OPATHOLOGY TEACHER documented in this encounter Plan of Treatment Upcoming Encounters Date Type Department Care Team (Late st Contact Info) Description 12/04/2024 11:30 AM CDT Office Visit [facility] Oncology and Hematology - Aroldo [address] [facility] [address] [place] [address] Chris Owens MD [address] [facility] [address] [place] [address] documented as of this encounter Visit Diagnoses Not on filedocumented in this encounter Care Teams District Home Economics Agent Relationship Specialty Start Date End Date Eris Vu MD PCP - General Family Practice 02/21/23 documented as of this encounter
--- OUTSIDE RECORDS SUMMARY | 2024-09-04 18:10 | XMS_ITS | Encounter Summary ---
Author Organization [facility] Address [address] [place] [address] Care Team Providers Care Choreography Director Name Role Phone Eris Vu MD Primary Care Provider +1 [phone] Encounter Details Date Type Department Care Team [...] [facility] Oncology and Hematology - [place] [address] [place] [address] [facility] 200 [place] [address] Chris Owens MD [address] [facility] [address] [place] [address] documented as of this encounter Visit Diagnoses Not on filedocumented in this encounter Care Teams Choreography Director Relationship Specialty Start Date End Date Eris Vu MD PCP - General Family Practice 02/21/23 documented as of this encounter
--- OUTSIDE RECORDS SUMMARY | 2024-09-04 18:10 | XMS_ITS | Encounter Summary ---
Author Organization [facility] [employer] [facility] Address [address] [address] Care Team Providers Care Shrimper Name Role Phone Eris Vu MD Primary Care Provider [phone] [phone] Reason for Visit * Reason Comments Med Refill Encounter Details Date Type Department Care Team ([facility] Contact Info) Description 05/08/2023 Refill [facility] Oncology and Hematology - Aroldo [address] [place] [address] Chris Owens MD [facility] [employer] [address] [place] [address] Social History Tobacco Use Types Packs/Day [...] Upcoming Encounters Date Type Department Care Team ([facility] Contact Info) Description 12/04/2024 11:30 AM CDT Office Visit [facility] Oncology and Hematology - Aroldo [address] [place] [address] Chris Owens MD [facility] [employer] [address] [place] [address] documented as of this encounter Visit Diagnoses Not on filedocumented in this encounter Care Teams Shrimper Relationship Specialty Start Date End Date Eris Vu MD PCP - General Family Practice 02/21/23 documented as of this encounter
--- OUTSIDE RECORDS SUMMARY | 2024-09-04 18:10 | XMS_ITS | Encounter Summary ---
Author Organization [facility] [employer] [facility] Address [address] [place] [address] Care Team Providers Care Exercise Physiologist Name Role Phone Eris Vu MD Primary Care Provider [phone] [phone] Reason for Referral * CT Scan (Routine) - Closed Specialty Diagnoses / Procedures Referred By Evan t Referred To Contact Diagnoses Encounter for screening for lung cancer Procedures CT LUNG SCREENING (F/U DIAGNOSTIC) W CONTRAST Chris Owens MD [address] [place] [address] [place] [address] Referral ID Status Reason Start Date Expiration Date V isits Requested Visits Authorized [id number] Closed STL CTS 02/24/2024 03/26/2025 1 1 Reason for Visit * Reason Comments Follow Up Encounter Details Date Type Department Care Team (Late st Contact Info) Description 02/24/2024 11:00 AM CDT Office Visit [facility] Oncology and Hematology [place] [address] [address] [facility] 200 [place] [address] Chris Owens MD [address] [place] [address] Chronic anemia (Primary Dx); Encounter [...] Visit [facility] Oncology and Hematology [facility] [address] [facility] [address] [place] [address] Chris Owens MD [address] [facility] [address] [place] [address] Scheduled Orders Name Type Priority [...] cancer documented in this encounter Care Teams Exercise Physiologist Relationship Specialty Start Date End Date Eris Vu MD PCP - General Family Practice 02/21/23 documented as of this encounter
--- OUTSIDE RECORDS SUMMARY | 2024-09-04 18:10 | XMS_ITS | Encounter Summary ---
Author Organization [facility] [employer] [facility] Address [address] [place] [address] Care Team Providers Care Recycling Collections Driver Name Role Phone Eris Vu MD Primary Care Provider [phone] [phone] Reason for Visit * Reason Comments Follow Up Encounter Details Date Type Department Care Team (Late st Contact Info) Description 02/21/2023 11:30 AM CDT Office Visit [facility] Oncology and Hematology - [place] [address] [place] [address] 200 [place] [address] Chris Owens MD [address] [facility] [address] [place] [address] Hypercoagulable state (Primary Dx); Visit [...] [facility] On[facility]ematology - [place]o [facility] [address] [place] [address] Chris Oewns MD [facility] [address] [place] [address] documented as of this encounter Visit Diagnoses Diagnosis Hypercoagulable state- Primary Primary hypercoagulable state Visit for screening mammogram Other screening mammogram Encounter for screening for lung cancer documented in this encounter Care Teams Recycling Collections Driver Relationship Specialty Start Date End Date Eris Vu MD PCP - General Family Practice 02/21/23 documented as of this encounter
--- OUTSIDE RECORDS SUMMARY | 2024-09-04 18:10 | XMS_ITS | Encounter Summary ---
Author Organization [facility] Address [address] [place] [address] Care Team Providers Care Curator Of Photography And Prints Name Role Phone Eris Vu MD Primary Care Provider [phone] [phone] Encounter Details Date Type Department Care Team (Late st Contact Info) Description 05/05/2024 External Device Data STL ABSTRACTION Provider, Abstract [...] [facility] Oncology and Hematology - [place] [address] [address] [facility] 200 [place] [address] Chris Owens MD [address] [facility] [address] [place] [address] documented as of this encounter Visit Diagnoses Not on filedocumented in this encounter Care Teams Curator Of Photography And Prints Relationship Specialty Start Date End Date Eris Vu MD PCP - General Family Practice 02/21/23 documented as of this encounter
--- OUTSIDE RECORDS SUMMARY | 2024-09-04 18:10 | XMS_ITS | Encounter Summary ---
Author Organization [facility] [employer] [facility] Address [address] [place] [address] Care Team Providers Care Outside Sales Engineer Name Role Phone Eris Vu MD Primary Care Provider [phone] [phone] Reason for Referral * Radiology Services (Routine) - Closed Specialty Diagnoses / Procedures Referred By Evan bo Referred To Contact Diagnoses Abnormal mammogram of left breast Procedures MAMMO BREAST US LEFT LTD Chris Owens MD [address] [place] [address] [place] [address] Referral ID Status Reason Start Date Expiration Date V isits Requested Visits Authorized [id number] Closed STL CTS 08/12/2023 09/11/2024 1 1 RUCTIONAL TECHNOLOGY COORDINATOR Encounter Details Date Type Department Care Team (Late st Contact Info) Description 08/12/2023 Orders Only [facility] Oncology and Hematology [facility] [address] [place] [address] [address] [place] [address] Chris Owens MD [address] [place] [address] Abnormal mammogram of left breast [...] Health) Oncology and Hematology - Aroldo [address] [facility] [address] [place] [address] Chris Owens MD [address] [facility] [address] [place] [address] Scheduled Orders Name Type Priority Associated Diagnoses Orde r Schedule MAMMO BREAST US LEFT LTD Imaging Routine Abnormal mammogram of left breast 1 Occurrences starting 08/12/2023 until 02/09/2025 documented as of this encounter Visit Diagnoses Diagnosis Abnormal mammogram of left breast- Primary documented in this encounter Care Teams Outside Sales Engineer Relationship Specialty Start Date End Date Eris Vu MD PCP - General Family Practice 02/21/23 documented as of this encounter
--- OUTSIDE RECORDS SUMMARY | 2024-09-04 18:10 | XMS_ITS | Encounter Summary ---
Author Organization [facility] [employer] [facility] Address [address] [place] [address] Care Team Providers Care Robotics Specialist Name Role Phone Boris Mcnair DO Primary Care Provider [phone] Reason for Visit * Reason Comments Med Refill Encounter Details Date Type Department Care Team ([facility] Contact Info) Description 09/03/2022 Refill [facility] Oncology and Hematology - Aroldo [address] [place] [address] Chris Owens MD [facility] [employer] [address] [place] [address] Social History Tobacco Use Types Packs/Day [...] Upcoming Encounters Date Type Department Care Team ([facility] Contact Info) Description 12/04/2024 11:30 AM CDT Office Visit [facility] Oncology and Hematology - Aroldo [address] [place] [address] Chris Owens MD [facility] [employer] [address] [place] [address] documented as of this encounter Visit Diagnoses Not on filedocumented in this encounter Care Teams Robotics Specialist Relationship Specialty Start Date End Date Boris Mcnair DO [address] [facility] 162 [facility] 204 [place] [address] PCP - General Internal Medicine 01/06/20 02/20/23 documented as of this encounter
--- OUTSIDE RECORDS SUMMARY | 2024-09-04 18:10 | XMS_ITS | Encounter Summary ---
Author Organization [facility] [employer] [facility] Address [address] [place] [address] Care Team Providers Care Returner Name Role Phone Eris Vu MD Primary Care Provider [phone] [phone] Encounter Details Date Type Department Care Team (Late Contact Info) Description 02/25/2024 Orders Only [facility] Oncology and Hematology [place] [address] [place] [address] Chris Owens MD [address] [place] [address] [employer] [address] [address] Social History Tobacco Use Types [...] and Hematology - Aroldo [address] [place] [address] Chris Owens MD [address] [place] [address] [employer] [address] [address] documented as of this encounter Procedures Procedure Name Priority Date/Time Associated Diagnosis Comments IRON, TIBC, AND PERCENT SATURATION Routine 02/24/2024 2:06 PM CDT documented in this encounter Results * IRON, TIBC, AND PERCENT SATURATION (02/24/2024 2:06 PM CDT) Blood Chris Owens MD CHEMISTRY ORDERABLES documented in this encounter Visit Diagnoses Not on filedocumented in this encounter Care Teams Returner Relationship Specialty Start Date End Date Eris Vu MD PCP - General Family Practice 02/21/23 documented as of this encounter
--- OUTSIDE RECORDS SUMMARY | 2024-09-04 18:10 | XMS_ITS | Encounter Summary ---
Author Organization [facility] [employer] Address [address] [place] [address] Care Team Providers Care Corporate Vp Advertising & Online Name Role Phone Boris Mcnair DO Primary Care Provider [phone] Encounter Details Date Type Department Care Team (Late st Contact Info) Description 08/17/2022 Abstract [facility] Oncology and Hematology - Aroldo [address] [place] [address] Siobhan Bernal Social History Tobacco [...] [facility] Oncology and Hematology [facility] [place] [facility] [address] [place] [address] Chris Owens MD [address] [facility] [address] [place] [address] documented as of this encounter Visit Diagnoses Not on filedocumented in this encounter Care Teams Corporate Vp Advertising & Online Relationship Specialty Start Date End Date Boris Mcnair DO [address] [place] [address] PCP - General Internal Medicine 01/06/20 02/20/23 documented as of this encounter
--- OUTSIDE RECORDS SUMMARY | 2024-09-04 18:10 | XMS_ITS | Encounter Summary ---
Author Organization [facility] Address [address] [place] [address] Care Team Providers Care Field Nurse Name Role Phone Eris Vu MD Primary Care Provider [phone] Encounter Details Date Type Department Care Team (Late Contact Info) Description 09/04/2023 Orders Only [facility] Oncology and Hematology [facility] [address] [place] [address] Chris Owens MD [address] [place] [address] [employer] [address] [address] Social History Tobacco Use Types [...] Description 12/04/2024 11:30 AM CDT Office Visit [facility] Oncology and Hematology [facility] [address] [place] [address] Chris Owens MD [address] [place] [address] [employer] [address] [place] [address] documented as of this encounter Procedures Procedure Name Priority Date/Time Associated Diagnosis Comments MAMMO DIAGNOSTIC UNI LEFT W OR WO CAD Routine 09/03/2023 1:34 PM HOT TAR ROOFER documented in this encounter Results * MAMMO DIAGNOSTIC UNI LEFT W OR WO CAD (09/03/2023 1:34 PM HOT TAR ROOFER) Anatomical Region Laterality Modality Breast Left Other Chris Owens MD MAMMO ORDERABLES documented in this encounter Visit Diagnoses Not on filedocumented in this encounter Care Teams Field Nurse Relationship Specialty Start Date End Date Eris Vu MD PCP - General Family Practice 02/21/23 documented as of this encounter
--- OUTSIDE RECORDS SUMMARY | 2024-09-04 18:10 | XMS_ITS | Encounter Summary ---
Author Organization [facility] [employer] [facility] Address [address] [place] [address] Care Team Providers Care Assistant Store Director Name Role Phone Eris Vu MD Primary Care Provider [phone] Encounter Details Date Type Department Care Team (Late Contact Info) Description 08/23/2023 Orders Only [facility] Oncology and Hematology [facility] [address] [place] [address] Chris Owens MD [address] [place] [address] [employer] [address] [address] Social History Tobacco Use Types [...] Description 12/04/2024 11:30 AM CDT Office Visit [facility] Oncology and Hematology [address] [place] [address] Chris Owens MD [address] [place] [address] [employer] [address] [place] [address] documented as of this encounter Procedures Procedure Name Priority Date/Time Associated Diagnosis Comments CT LUNG SCREENING (FOLLOW UP DIAGNOSTIC) WO CONTRAST Routine 08/22/2023 10:15 AM FUNCTIONAL MANAGER documented in this encounter Results * CT LUNG SCREENING (FOLLOW UP DIAGNOSTIC) WO CONTRAST (08/22/2023 10:15 AM FUNCTIONAL MANAGER) Anatomical Region Laterality Modality Chest Other Chris Owens MD CT ORDERABLES documented in this encounter Visit Diagnoses Not on filedocumented in this encounter Care Teams Assistant Store Director Relationship Specialty Start Date End Date Eris Vu MD PCP - General Family Practice 02/21/23 documented as of this encounter
--- OUTSIDE RECORDS SUMMARY | 2024-09-04 18:10 | XMS_ITS | Encounter Summary ---
Author Organization [facility] [employer] [facility] Address [address] [place] [address] Care Team Providers Care Mail Censor Name Role Phone Boris Mcnair DO Primary Care Provider [phone] Encounter Details Date Type Department Care Team (Late st Contact Info) Description 08/08/2022 Orders Only [facility] Oncology and Hematology [place] [address] [place] [address] Amelia Gilman RN Visit for [...] Office Visit [facility] Oncology and Hematology [facility] [address] [place] [address] Chris Owens MD [address] [facility] [address] [place] [address] documented as of this encounter Visit Diagnoses Diagnosis Visit for screening mammogram Other screening mammogram documented in this encounter Care Teams Mail Censor Relationship Specialty Start Date End Date Boris Mcnair DO [address] [facility] [address] [place] [address] PCP - General Internal Medicine 01/06/20 02/20/23 documented as of this encounter
--- OUTSIDE RECORDS SUMMARY | 2024-09-04 18:10 | XMS_ITS | Encounter Summary ---
Author Organization [facility] [employer] [facility] Address [address] [place] [address] Care Team Providers Care Solidworks Designer Name Role Phone Boris Mcnair DO Primary Care Provider [phone] Reason for Visit * Reason Comments Med Refill Encounter Details Date Type Department Care Team ([facility] Contact Info) Description 01/02/2023 Refill [facility] Oncology and Hematology - Aroldo [address] [place] [address] Chris Owens MD [facility] [employer] [address] [place] [address] Social History Tobacco Use Types Packs/Day [...] 12/04/2024 11:30 AM CDT Office Visit [facility] Oncology and Hematology - Aroldo [address] [place] [address] Chris Owens MD [facility] [employer] [address] [place] [address] documented as of this encounter Visit Diagnoses Not on filedocumented in this encounter Care Teams Solidworks Designer Relationship Specialty Start Date End Date Boris Mcnair DO 68[address] [facility] 162 [facility] 204 [place] [address] PCP - General Internal Medicine 01/06/20 02/20/23 documented as of this encounter
--- OUTSIDE RECORDS SUMMARY | 2024-09-04 18:10 | XMS_ITS | Encounter Summary ---
Author Organization [facility] [employer] [facility] Address [address] [place] [address] Care Team Providers Care Game Moderator Name Role Phone Eris Vu MD Primary Care Provider [phone] Reason for Visit * Reason Comments Med Refill Encounter Details Date Type Department Care Team ([facility] Contact Info) Description 05/26/2023 Refill [facility] Oncology and Hematology - Aroldo [address] [place] [address] Chris Owens MD [facility] [employer] [address] [place] [address] Social History Tobacco Use Types Packs/Day [...] Upcoming Encounters Date Type Department Care Team ([facility] Contact Info) Description 12/04/2024 11:30 AM CDT Office Visit [facility] Oncology and Hematology - Aroldo [address] [place] [address] Chris Owens MD [facility] [employer] [address] [place] [address] documented as of this encounter Visit Diagnoses Not on filedocumented in this encounter Care Teams Game Moderator Relationship Specialty Start Date End Date Eris Vu MD PCP - General Family Practice 02/21/23 documented as of this encounter
--- OUTSIDE RECORDS SUMMARY | 2024-09-04 18:10 | XMS_ITS | Encounter Summary ---
Author Organization [facility] Address [address] [place] [address] Care Team Providers Care Service Provider Name Role Phone Eris Vu MD Primary Care Provider [phone] [phone] Encounter Details Date Type Department Care Team [...] 12/04/2024 11:30 AM CDT Office Visit [facility] Oncology and Hematology - [place] [address] [place] [address] [facility] [address] [place] [address] Chris Owens MD [address] [facility] [address] [place] [address] documented as of this encounter Visit Diagnoses Not on filedocumented in this encounter Care Teams Service Provider Relationship Specialty Start Date End Date Eris Vu MD PCP - General Family Practice 02/21/23 documented as of this encounter
--- OUTSIDE RECORDS SUMMARY | 2024-09-04 18:10 | XMS_ITS | Encounter Summary ---
Author Organization [facility] [employer] [facility] Address [address] [place] [address] Care Team Providers Care Terminal Operator Name Role Phone Eris Vu MD Primary Care Provider +1 -[phone] Encounter Details Date Type Department Care Team (Late Contact Info) Description 02/24/2024 Orders Only [facility] Oncology and Hematology [facility] [address] [place] [address] Chris Owens MD [facility] [employer] [address] [place] [address] Hypercoagulable state (Primary Dx) Social History [...] Visit [facility] Oncology and Hematology - [place] [address] [place] [address] Chris Owens MD [address] [place], [place] [address] [address] [place] [address] Scheduled Orders Name Type Priority Associated Diagnoses Orde r Schedule CBC WITH DIFFERENTIAL Lab Routine Hypercoagulable state Expected: 02/24/2024, Expires: 02/23/2025 documented as of this encounter Visit Diagnoses Diagnosis Hypercoagulable state- Primary Primary hypercoagulable state documented in this encounter Care Teams Terminal Operator Relationship Specialty Start Date End Date Eris Vu MD PCP - General Family Practice 02/21/23 documented as of this encounter
--- OUTSIDE RECORDS SUMMARY | 2024-09-04 18:10 | XMS_ITS | Encounter Summary ---
Author Organization [facility] [employer] [facility] Address [address] [place] [address] Care Team Providers Care Pharmacist Apprentice Name Role Phone Eris Vu MD Primary Care Provider +1 [phone] Encounter Details Date Type Department Care Team (Late Contact Info) Description 02/17/[address] [facility] Oncology and Hematology [facility] [address] [place] [address] Chris Owens MD [address] [place] [address] [address] Social History Tobacco Use Types [...] [facility] Oncology and Hematology [place] [address] [place] [address] Chris Owens MD [address] [place] [address] [address] [place] [address] documented as of this encounter Procedures Procedure Name Priority Date/Time Associated Diagnosis Comments MAMMO BILAT DIAGNOSTIC Routine 02/17/2024 1:15 PM CDT documented in this encounter Results * MAMMO BILAT DIAGNOSTIC (02/17/2024 1:15 PM CDT) Anatomical Region Laterality Modality Breast Bilateral Other Chris Owens MD MAMMO ORDERABLES documented in this encounter Visit Diagnoses Not on filedocumented in this encounter Care Teams Pharmacist Apprentice Relationship Specialty Start Date End Date Eris Vu MD PCP - General Family Practice 02/21/23 documented as of this encounter
--- OUTSIDE RECORDS SUMMARY | 2024-09-04 18:10 | XMS_ITS | Encounter Summary ---
Author Organization [facility] Address [address] [place] [address] Care Team Providers Care Sap Fico Business Analyst Name Role Phone Eris Vu MD Primary Care Provider +1 -[phone] Encounter Details Date Type Department Care Team [...] - [facility] Oncology and Hematology - [place] [address] [place] [address] [facility] 200 [place] [address] Chris Owens MD [address] [facility] [address] [place] [address] documented as of this encounter Visit Diagnoses Not on filedocumented in this encounter Care Teams Sap Fico Business Analyst Relationship Specialty Start Date End Date Eris Vu MD PCP - General Family Practice 02/21/23 documented as of this encounter
--- OUTSIDE RECORDS SUMMARY | 2024-09-04 18:10 | XMS_ITS | Encounter Summary ---
Author Organization [facility] Address [address] [place] [address] Care Team Providers Care Endocrinology Physician Name Role Phone Eris Vu MD Primary Care Provider +1 [phone] Encounter Details Date Type Department Care Team [...] [facility] Oncology and Hematology - [place] [address] [place] [address] [facility] 200 [place] [address] Chris Owens MD 2227 [facility] [address] [place] [address] documented as of this encounter Visit Diagnoses Not on filedocumented in this encounter Care Teams Endocrinology Physician Relationship Specialty Start Date End Date Eris Vu MD PCP - General Family Practice 02/21/23 documented as of this encounter
--- OUTSIDE RECORDS SUMMARY | 2024-09-04 18:10 | XMS_ITS | Encounter Summary ---
Author Organization [facility] [employer] [facility] Address [address] [place] [address] Care Team Providers Care Firmware Manager Name Role Phone Eris Vu MD Primary Care Provider +1 [phone] Reason for Visit * Reason Comments Med Refill Encounter Details Date Type Department Care Team ([facility] Contact Info) Description 08/26/2023 Refill [facility] Oncology and Hematology - [place] [address] [place] [address] Chris Owens MD [facility] [address] [place] [address] Social History Tobacco Use Types Packs/Day [...] Date Type Department Care Team ([facility] Contact Info) Description 12/04/2024 11:30 AM CDT Office Visit [facility] Oncology and Hematology - [place] [address] [place] [address] Chris Owens MD [facility] [address] [place] [address] documented as of this encounter Visit Diagnoses Not on filedocumented in this encounter Care Teams Firmware Manager Relationship Specialty Start Date End Date Eris Vu MD PCP - General Family Practice 02/21/23 documented as of this encounter
--- OUTSIDE RECORDS SUMMARY | 2024-09-04 18:10 | XMS_ITS | Encounter Summary ---
Author Organization [facility] [employer] [facility] Address [address] [place] [address] Care Team Providers Care Screener And Blender Name Role Phone Eris Vu MD Primary Care Provider [phone] [phone] Reason for Visit * Reason Onset Date Comments lab order 02/21/2023 Cmp cbc Encounter Details Date Type Department Care Team (Late Contact Info) Description 02/21/2023 Telephone [facility] Oncology and Hematology [facility] [address] [place] [address] Chris [facility] MD [facility] [facility] [employer] [address] [place] [address] lab order (Cmp cbc /) [...] / CMP lab order- hand delivered [facility] documented in this encounter Plan of Treatment Upcoming Encounters Date Type Department Care Team (Late Contact Info) Description 12/04/2024 11:30 AM CDT Office Visit [facility] Oncology and Hematology [facility] [address] [place] [address] Chris Owens MD [facility] [address] [place] [address] Scheduled Orders Name Type Priority Associated Diagnoses Orde r Schedule COMPREHENSIVE METABOLIC PANEL Lab Stat Hypercoagulable state Expected: 02/21/2023, Expires: 02/22/2024 documented as of this encounter Visit Diagnoses Diagnosis Hypercoagulable state- Primary Primary hypercoagulable state documented in this encounter Care Teams Screener And Blender Relationship Specialty Start Date End Date Eris Vu MD PCP - General Family Practice 02/21/23 documented as of this encounter
--- OUTSIDE RECORDS SUMMARY | 2024-09-04 18:10 | XMS_ITS | Encounter Summary ---
Author Organization [facility] [employer] [facility] Address [address] [place] [address] Care Team Providers Care Leather Lacer Name Role Phone Eris Vu MD Primary Care Provider +1 [phone] Encounter Details Date Type Department Care Team (Late Contact Info) Description 03/02/2024 3:45 PM CDT Telephone Check Up [facility] Oncology and Hematology - [place] 2227 [facility] 200 [place] [address] Chris Owens MD 2227 [facility] [address] [place] [address] Chronic anemia (Primary Dx) Social [...] [facility] On[facility] and Hematology - [place] 2227 [facility] 200 [place] [address] Chris Owens MD [address] [facility] [address] [place] [address] Scheduled Orders Name Type Priority [...] unspecified documented in this encounter Care Teams Leather Lacer Relationship Specialty Start Date End Date Eris Vu MD PCP - General Family Practice 02/21/23 documented as of this encounter
--- OUTSIDE RECORDS SUMMARY | 2024-09-04 18:10 | XMS_ITS | Encounter Summary ---
Author Organization [facility] [employer] [facility] Address [address] [place] [address] Care Team Providers Care Underwriter Solicitation Director Name Role Phone Boris Mcnair DO Primary Care Provider [phone] Reason for Visit * Reason Onset Date Comments Concerned she may have had another stroke 2022 Encounter Details Date Type Department Care Team (Late st Contact Info) Description 12/21/2022 Telephone [facility] Oncology and Hematology - [place] 2227 [facility] 200 [place] [address] Chris Owens MD 2227 [facility] [address] [place] [address] Concerned she may have had [...] had an episode last evening at her [employer] game. She was dizzy, lightheaded, nauseaus, unsteady, [...] [facility] Oncology and Hematology - [place] 2[address] [facility] 200 [place] [address] Chris Owens MD 2[address] [facility] [address] [place] [address] documented as of this encounter Visit Diagnoses Not on filedocumented in this encounter Care Teams Underwriter Solicitation Director Relationship Specialty Start Date End Date Boris Mcnair DO 6812 [facility] [address] [place] [address] PCP - General Internal Medicine 01/06/20 02/20/23 documented as of this encounter
--- OUTSIDE RECORDS SUMMARY | 2024-09-04 18:10 | XMS_ITS | Encounter Summary ---
Author Organization [facility] Address [address] [place] [address] Care Team Providers Care Waiter/Waitress Cabin Class Name Role Phone Eris Vu MD Primary Care Provider [phone] [phone] Encounter Details Date Type Department Care Team [...] Description 12/04/2024 11:30 AM CDT [facility] On[facility] and Hematology - [place] [address] [place] [address] [facility] 200 [place] [address] Chris Owens MD [address] [facility] [address] [place] [address] documented as of this encounter Visit Diagnoses Not on filedocumented in this encounter Care Teams Waiter/Waitress Cabin Class Relationship Specialty Start Date End Date Eris Vu MD PCP - General Family Practice 02/21/23 documented as of this encounter
--- OUTSIDE RECORDS SUMMARY | 2024-09-04 18:10 | XMS_ITS | Encounter Summary ---
Author Organization [facility] Address [address] [place] [address] Care Team Providers Care Internet And E Business Project Manager Name Role Phone Eris Vu MD Primary Care Provider [phone] [phone] Encounter Details Date Type Department Care Team [...] [facility] - [place] [address] [place] [address] [facility] 200 [place] [address] Chris Owens MD 2227 [facility] [address] [place] [address] documented as of this encounter Visit Diagnoses Not on filedocumented in this encounter Care Teams Internet And E Business Project Manager Relationship Specialty Start Date End Date Eris Vu MD PCP - General Family Practice 02/21/23 documented as of this encounter
--- OUTSIDE RECORDS SUMMARY | 2024-09-04 18:10 | XMS_ITS | Encounter Summary ---
Author Organization [facility] [employer] [facility] Address [address] [place] [address] Care Team Providers Care Mill Order Scheduler Name Role Phone Eris Vu MD Primary Care Provider [phone] [phone] Reason for Visit * Reason Comments Med Refill Encounter Details Date Type Department Care Team ([facility] Contact Info) Description 11/20/2023 Refill [facility] Oncology and Hematology - [place] [address] [place] [address] Chris Owens MD [facility] [employer] [address] [place] [address] Social History Tobacco Use Types Packs/Day [...] Upcoming Encounters Date Type Department Care Team ([facility] Contact Info) Description 12/04/2024 11:30 AM CDT Office Visit [facility] Oncology and Hematology - [place] [address] [place] [address] Chris Owens MD [facility] [employer] [address] [place] [address] documented as of this encounter Visit Diagnoses Not on filedocumented in this encounter Care Teams Mill Order Scheduler Relationship Specialty Start Date End Date Eris Vu MD PCP - General Family Practice 02/21/23 documented as of this encounter
--- OUTSIDE RECORDS SUMMARY | 2024-09-04 18:10 | XMS_ITS | Encounter Summary ---
Author Organization [facility] [employer] Address [address] [place] [address] Care Team Providers Care Retail Salesperson Name Role Phone Eris Vu MD Primary Care Provider [phone] [phone] Reason for Visit * Reason Onset Date Comments Clearance 11/11/2023 Encounter Details Date Type Department Care Team (Late st Contact Info) Description 11/11/2023 Telephone [facility] Oncology and Hematology - [place] 2227 [facility] 200 [place] [address] Chris Owens MD 2[address] [facility] [address] [place] [address] Clearance Social History Tobacco Use [...] faxed back over to office. Scanned into [employer]. AGE SOLUTIONS ARCHITECT * Telephone Encounter - Siobhan Bernal - 11/11/2023 7:47 AM CST ----- Message from Chris Owens MD sent at 11/08/2023 3:59 PM STORAGE SOLUTIONS ARCHITECT ----- Regarding: RE: Clearance That should be fine. ----- Message ----- From: Siobhan Bernal Sent: 11/07/2023 11:10 AM STORAGE SOLUTIONS ARCHITECT To: Chris Owens MD Subject: [facility] is wanting to know if it is ok for patient to stop Xarelto 2 days prior to havingcolonoscopy? Please advise. AGE SOLUTIONS ARCHITECT documented in this encounter Plan of Treatment Upcoming Encounters Date Type Department Care Team (Late st Contact Info) Description 12/04/2024 11:30 AM CDT Office Visit [facility] Oncology and Hematology [facility] [address] [facility] [address] [place] [address] Chris Owens MD 2227 [facility] [address] [place] [address] documented as of this encounter Visit Diagnoses Not on filedocumented in this encounter Care Teams Retail Salesperson Relationship Specialty Start Date End Date Eris Vu MD PCP - General Family Practice 02/21/23 documented as of this encounter
--- OUTSIDE RECORDS SUMMARY | 2024-09-04 18:10 | XMS_ITS | Encounter Summary ---
Author Organization [facility] [employer] [facility] Address [address] [place] [address] Care Team Providers Care Studio Producer Name Role Phone Boris Mcnair DO Primary Care Provider [phone] Encounter Details Date Type Department Care Team (Late Contact Info) Description 08/29/2022 Orders Only [facility] Oncology and Hematology [facility] [address] [place] [address] Siobhan Bernal Encounter for screening [...] CDT Office Visit [facility] Oncology and [facility] [address] [place] [address] Chris Owens MD 2227 [facility] [address] [place] [address] documented as of this encounter Visit Diagnoses Diagnosis Encounter for screening for lung cancer documented in this encounter Care Teams Studio Producer Relationship Specialty Start Date End Date Boris Mcnair DO [address] [place] [address] PCP - General Internal Medicine 01/06/20 02/20/23 documented as of this encounter
--- OUTSIDE RECORDS SUMMARY | 2024-09-04 18:10 | XMS_ITS | Encounter Summary ---
Author Organization [facility] [employer] [facility] Address [address] [place] [address] Care Team Providers Care Manager Call Center Name Role Phone Eris Vu MD Primary Care Provider [phone] [phone] Reason for Referral * Radiology Services (Routine) - Closed Specialty Diagnoses / Procedures Referred By Evan bo Referred To Contact Diagnoses Abnormal mammogram of left breast Procedures US BREAST UNI LEFT COMPLETE Chris Owens MD [address] [address] [place] [address] Referral ID Status Reason Start Date Expiration Date V isits Requested Visits Authorized [id number] Closed [facility] CTS 09/12/2023 10/12/2024 1 1 ARCH AND INSIGHTS EXECUTIVE * Radiology Services (Routine) - Closed Specialty Diagnoses / Procedures Referred By Evan bo Referred To Contact Diagnoses Abnormal mammogram of left breast Procedures MAMMO DIAGNOSTIC UNI LEFT W OR WO CAD Chris Owens MD [facility] [employer] [address] [address] [place] [address] Referral ID Status Reason Start Date Expiration Date V isits Requested Visits Authorized [id number] Closed [facility] CTS 09/12/2023 10/12/2024 1 1 ARCH AND INSIGHTS EXECUTIVE Encounter Details Date Type Department Care Team (Late st Contact Info) Description 09/12/2023 Orders Only [facility] Oncology and Hematology - [address] [address] Chris Owens MD 2220 [facility] [address] [place] [phone] Abnormal mammogram of left breast (Primary Dx) [...] Visit [facility] Oncology and Hematology [facility] 2226 [facility] [address] [place] [address] [place] [address] [place] [address] Scheduled Orders Name Type Priority Associated Diagnoses [...] Primary documented in this encounter Care Teams Manager Call Center Relationship Specialty Start Date End Date Eris Vu MD PCP - General Family Practice 02/21/23 documented as of this encounter
--- OUTSIDE RECORDS SUMMARY | 2024-09-04 18:10 | XMS_ITS | Encounter Summary ---
Author Organization [facility] Address [address] [place] [address] Care Team Providers Care Assembly Line Machine Operator Name Role Phone Eris Vu MD Primary Care Provider [phone] [phone] Encounter Details Date Type Department Care Team [...] [facility] Oncology and Hematology - [place] [address] [place] [address] [facility] 200 [place] [address] Chris Owens MD 2227 [facility] [address] [place] [address] documented as of this encounter Visit Diagnoses Not on filedocumented in this encounter Care Teams Assembly Line Machine Operator Relationship Specialty Start Date End Date Eris Vu MD PCP - General Family Practice 02/21/23 documented as of this encounter
--- OUTSIDE RECORDS SUMMARY | 2024-09-04 18:10 | XMS_ITS | Encounter Summary ---
Author Organization [facility] Address [address] [place] [address] Care Team Providers Care Door Manager Name Role Phone Eris Vu MD Primary Care Provider +1 -[phone] Encounter Details Date Type Department Care Team [...] [facility] Oncology and Hematology - [place] [address] [place] [address] [address] [place] [address] Chris Oewns MD 2[address] [facility] [address] [place] [address] documented as of this encounter Visit Diagnoses Not on filedocumented in this encounter Care Teams Door Manager Relationship Specialty Start Date End Date Eris Vu MD PCP - General Family Practice 02/21/23 documented as of this encounter
--- OUTSIDE RECORDS SUMMARY | 2024-09-04 18:10 | XMS_ITS | Encounter Summary ---
Author Organization [facility] Address [address] [place] [address] Care Team Providers Care Warp Starter Name Role Phone Eris Vu MD Primary Care Provider [phone] [phone] Encounter Details Date Type Department Care Team [...] [facility] On[facility] Hematology - [place] [address] [place] [address] [facility] 200 [place] [address] Chris Owens MD [address] [facility] [address] [place] [address] documented as of this encounter Visit Diagnoses Not on filedocumented in this encounter Care Teams Warp Starter Relationship Specialty Start Date End Date Eris Vu MD PCP - General Family Practice 02/21/23 documented as of this encounter
--- OUTSIDE RECORDS SUMMARY | 2024-09-04 18:10 | XMS_ITS | Encounter Summary ---
Author Organization [facility] [employer] [facility] Address [address] [place] [address] Care Team Providers Care Security Systems Installer Name Role Phone Eris Vu MD Primary Care Provider [phone] [phone] Reason for Referral * Radiology Services (Routine) - Closed Specialty Diagnoses / Procedures Referred By Evan t Referred To Contact Diagnoses Visit for screening mammogram Procedures MAMMO SCRN UNI RT 3D HUMBERTO W OR WO CAD CHG SCREENING MAMMOGRAPHY BI 2-VIEW BREAST INC CAD CHG SCREENING DIGITAL BREAST TOMOSYNTHESIS BI Chris Owens MD [address] [employer] [address] [place] [address] [place] [address] Referral ID Status Reason Start Date Expiration Date V isits Requested Visits Authorized [id number] Closed [facility] CTS 08/12/2023 09/11/2024 1 1 TY AGENT Encounter Details Date Type Department Care Team (Late st Contact Info) Description 08/12/2023 Orders Only [facility] Oncology and Hematology [address] [place] [address] Chris Owens MD [address] [employer] [address] [place] [address] Visit for screening mammogram (Primary Dx); Abnormal mammogram of left breast Social History Tobacco Use Types Packs/Day Years [...] [facility] Oncology and Hematology - [place] [address] [facility] [address] [place] [address] Chris Owens MD [address] [facility] [address] [place] [address] Scheduled Orders Name Type Priority Associated Diagnoses Orde r Schedule MAMMO SCRN UNI RT 3D HUMBERTO W OR WO CAD Imaging Routine Visit for screening mammogram 1 Occurrences starting 08/12/2023 until 02/09/2025 documented as of this encounter Visit Diagnoses Diagnosis Visit for screening mammogram- Primary Other screening mammogram Abnormal mammogram of left breast documented in this encounter Care Teams Security Systems Installer Relationship Specialty Start Date End Date Eris Vu MD PCP - General Family Practice 02/21/23 documented as of this encounter
--- OUTSIDE RECORDS SUMMARY | 2024-09-04 18:10 | XMS_ITS | Encounter Summary ---
Author Organization [facility] Address [address] [place] [address] Care Team Providers Care Maths Tutor Name Role Phone Eris Vu MD Primary Care Provider [phone] Encounter Details Date Type Department Care Team [...] [facility] Oncology and Hematology - [place] [address] [place] [address] [facility] 200 [place] [address] Chris Owens MD 2[address] [facility] [address] [place] [address] documented as of this encounter Visit Diagnoses Not on filedocumented in this encounter Care Teams Maths Tutor Relationship Specialty Start Date End Date Eris Vu MD PCP - General Family Practice 02/21/23 documented as of this encounter
--- OUTSIDE RECORDS SUMMARY | 2024-09-04 18:10 | XMS_ITS | Encounter Summary ---
Author Organization [facility] [employer] Address [address] [place] [address] Care Team Providers Care Bump Grader Operator Name Role Phone Eris Vu MD Primary Care Provider [phone] Encounter Details Date Type Department Care Team (Late Contact Info) Description 11/11/2023 Abstract [facility] Oncology and Hematology [place] [address] [place] [address] Chris Owens MD [address] [place], [place] [address] [employer] [address] [address] Social History Tobacco Use Types [...] 11:30 AM CDT Office Visit [facility] Oncology and Hematology - [place] [address] [place] [address] Chris Owens MD [facility] [employer] [address] [place] [address] documented as of this encounter Visit Diagnoses Not on filedocumented in this encounter Care Teams Bump Grader Operator Relationship Specialty Start Date End Date Eris Vu MD PCP - General Family Practice 02/21/23 documented as of this encounter
--- OUTSIDE RECORDS SUMMARY | 2024-09-04 18:11 | XMS_ITS | Encounter Summary ---
Author Organization [facility] [employer] [facility] Address [address] [place] [address] Care Team Providers Care Passenger Car Upholsterer Apprentice Name Role Phone Boris Mcnair DO Primary Care Provider [phone] Encounter Details Date Type Department Care Team (Late Contact Info) Description 02/07/[address] [facility]cology [facility] Hematology [facility] [address] [place] [address] Chris Owens MD [address] [place] [address] Hypercoagulable state Social History Tobacco Use [...] [facility] Oncology and Hematology [facility] [address] [place] [address] Chris Owens MD [address] [place] [address] documented as of this encounter Visit Diagnoses Diagnosis Hypercoagulable state Primary hypercoagulable state documented in this encounter Care Teams Passenger Car Upholsterer Apprentice Relationship Specialty Start Date End Date Boris Mcnair DO [address] [facility] [address] [place] [address] PCP - General Internal Medicine 01/06/20 02/20/23 documented as of this encounter
--- OUTSIDE RECORDS SUMMARY | 2024-09-04 18:11 | XMS_ITS | Encounter Summary ---
Author Organization [facility] [employer] [facility] Address [address] [place] [address] Care Team Providers Care Patternator Name Role Phone Boris Mcnair DO Primary Care Provider Encounter Details Date Type Department Care Team ([facility] Contact Info) Description 02/07/2021 Orders Only [facility] Oncology and Hematology [place] [address] [place] [address] Provider, Abstract NO ADDRESS ON [...] Medical Center)[3] Oncology and Hematology - [place] [address] [place] [address] Chris Owens MD [address] [facility] [address] [place] [address] documented as of this encounter Procedures Procedure Name Priority Date/Time Associated Diagnosis Comments BASIC METABOLIC PANEL Routine 01/30/2021 documented in this encounter Results * BASIC METABOLIC PANEL (01/30/2021) Blood Abstract Provider CHEMISTRY ORDERABLES documented in this encounter Visit Diagnoses Not on filedocumented in this encounter Care Teams Patternator Relationship Specialty Start Date End Date Boris Mcnair DO [address] [facility] 162 [facility] 204 [place] [address] PCP - General Internal Medicine 01/06/20 02/20/23 documented as of this encounter
--- OUTSIDE RECORDS SUMMARY | 2024-09-04 18:11 | XMS_ITS | Encounter Summary ---
Author Organization [facility] [employer] [facility] Address [address] [place] [address] Care Team Providers Care Rn Ante Partum Name Role Phone Boris Mcnair DO Primary Care Provider [phone] Reason for Visit * Reason Onset Date Comments lab orders 02/26/2022 Encounter Details Date Type Department Care Team ([facility] Contact Info) Description 02/26/2022 Telephone [facility] Oncology [facility] [address] [place] [address] Chris Owens MD [address] [facility] [address] [place] [address] lab orders Social History Tobacco Use [...] Office Visit [facility] Oncology [facility] Hematology [facility] [address] [place] [address] Chris Oewns MD [address] [facility] [address] [place] [address] Scheduled Orders Name Type Priority Associated Diagnoses Orde r Schedule CBC WITH DIFFERENTIAL Lab Routine Hypercoagulable state Expected: 02/26/2022, Expires: 02/26/2023 COMPREHENSIVE METABOLIC PANEL Lab Routine Hypercoagulable state Expected: 02/26/2022, Expires: 02/26/2023 documented as of this encounter Visit Diagnoses Diagnosis Hypercoagulable state- Primary Primary hypercoagulable state documented in this encounter Care Teams Rn Ante Partum Relationship Specialty Start Date End Date Boris Mcnair DO [address] [place] [address] PCP - General Internal Medicine 01/06/20 02/20/23 documented as of this encounter
--- OUTSIDE RECORDS SUMMARY | 2024-09-04 18:11 | XMS_ITS | Encounter Summary ---
Author Organization [facility] [employer] [facility] Address [address] [place] [address] Care Team Providers Care Composing Machine Operator Name Role Phone Boris Mcnair DO Primary Care Provider [phone] Reason for Visit * Reason Comments Medication Refill Encounter Details Date Type Department Care Team ([facility] Contact Info) Description 03/15/2021 Refill [facility] Oncology and Hematology - [place] [address] [place] [address] Chris Owens MD [facility] [employer] [address] [place] [address] Social History Tobacco Use Types Packs/Day [...] Description 12/04/2024 11:30 AM CDT Office Visit [facility] Oncology and Hematology - [place] [address] [place] [address] Chris Owens MD [facility] [employer] [address] [place] [address] documented as of this encounter Visit Diagnoses Not on filedocumented in this encounter Care Teams Composing Machine Operator Relationship Specialty Start Date End Date Boris Mcnair DO 6812 [facility] 162 [facility] 204 [place] [address] PCP - General Internal Medicine 01/06/20 02/20/23 documented as of this encounter
--- OUTSIDE RECORDS SUMMARY | 2024-09-04 18:11 | XMS_ITS | Encounter Summary ---
Author Organization [facility] [employer] Address [address] [place] [address] Care Team Providers Care Bookie Name Role Phone Boris Mcnair DO Primary Care Provider [phone] Encounter Details Date Type Department Care Team ([facility] Contact Info) Description 08/04/2020 Orders Only [facility] Oncology and [facility] [address] [facility] [address] [place] [address] Provider, Abstract NO ADDRESS ON [...] COVID-19? 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 documented as of this encounter Plan of Treatment Upcoming Encounters Date Type Department Care Team (Late Contact Info) Description 12/04/2024 11:30 AM CDT Office Visit [facility] Oncology and Hematology [facility] [address] [place] [address] Chris Owens MD [address] [facility] [address] [place] [address] documented as of this encounter Procedures Procedure Name Priority Date/Time Associated Diagnosis Comments BASIC METABOLIC PANEL Routine 08/01/2020 documented in this encounter Results * BASIC METABOLIC PANEL (08/01/2020) Blood Abstract Provider CHEMISTRY ORDERABLES NON [facility] documented in this encounter Visit Diagnoses Not on filedocumented in this encounter Care Teams Bookie Relationship Specialty Start Date End Date Boris Mcnair DO [address] [facility] [address] [place] [address] PCP - General Internal Medicine 01/06/20 02/20/23 documented as of this encounter
--- OUTSIDE RECORDS SUMMARY | 2024-09-04 18:11 | XMS_ITS | Encounter Summary ---
Author Organization [facility] [employer] Address [address] [place] [address] Care Team Providers Care Elementary Summer School Teacher Name Role Phone Boris Mcnair DO Primary Care Provider [phone] Reason for Visit * Reason Comments Medication Refill Encounter Details Date Type Department Care Team ([facility] Contact Info) Description 04/27/2021 Refill [facility] Oncology and Hematology [place] [address] [place] [address] Chris Owens MD [address] [place] [address] Social History Tobacco Use Types Packs/Day [...] Encounters Date Type Department Care Team ([facility] Contact Info) Description 12/04/2024 11:30 AM CDT Office Visit [facility] [address] [place] [address] Chris Owens MD [address] [place] [address] documented as of this encounter Visit Diagnoses Not on filedocumented in this encounter Care Teams Elementary Summer School Teacher Relationship Specialty Start Date End Date Boris Mcnair DO 6812 [facility] [address] [facility] 204 [place] [address] PCP - General Internal Medicine 01/06/20 02/20/23 documented as of this encounter
--- OUTSIDE RECORDS SUMMARY | 2024-09-04 18:11 | XMS_ITS | Encounter Summary ---
Author Organization [facility] [employer] Address [address] [place] [address] Care Team Providers Care Creasing And Cutting Press Feeder Name Role Phone Boris Mcnair DO Primary Care Provider [phone] Encounter Details Date Type Department Care Team (Late Contact Info) Description 03/19/2022 Orders Only [facility] Oncology [facility] Hematology [facility] [address] [place] [address] Chris Owens MD [facility] [email or web address] [address] [place] [address] Hypercoagulable state Social History Tobacco Use [...] Description 12/04/2024 11:30 AM CDT Office Visit [facility] Oncology and Hematology [facility] [address] [place] [address] Chris Owens MD [address] [email or web address] [address] [place] [address] documented as of this encounter Visit Diagnoses Diagnosis Hypercoagulable state Primary hypercoagulable state documented in this encounter Care Teams Creasing And Cutting Press Feeder Relationship Specialty Start Date End Date Boris Mcnair DO [address] [facility] [address] [place] [address] PCP - General Internal Medicine 01/06/20 02/20/23 documented as of this encounter
--- OUTSIDE RECORDS SUMMARY | 2024-09-04 18:11 | XMS_ITS | Encounter Summary ---
Author Organization [facility] Address [address] [place] [address] Care Team Providers Care Research Assistant Name Role Phone Boris Mcnair Primary Care Provider [phone] Reason for Referral * CT Scan (Routine) - Closed Specialty Diagnoses / Procedures Referred By Evan bo Referred To Contact Diagnoses Encounter for screening for lung cancer Procedures CT LUNG SCREENING (F/U DIAGNOSTIC) W CONTRAST Chris Owens MD [address] [facility] [address] [place], [place] [address] [place] [address] Referral ID Status Reason Start Date Expiration Date V isits Requested Visits Authorized [id number] Closed STL CTS 01/30/2021 03/02/2022 1 1 * Radiology Services (Routine) - Closed Specialty Diagnoses / Procedures Referred By Evan bo Referred To Contact Diagnoses Visit for screening mammogram Procedures MAMMO SCREEN BILAT W OR WO CAD Chris Owens MD [address] [place] [address] [place] [address] Referral ID Status Reason Start Date Expiration Date V isits Requested Visits Authorized [id number] Closed STL CTS 01/30/2021 03/02/2022 1 1 Reason for Visit * Reason Comments Follow Up 6 month F/U Encounter Details Date Type Department Care Team (Late st Contact Info) Description 01/30/2021 11:45 AM CDT Office Visit [facility] Oncology and Hematology - [place] 2[address] [facility] [address] [place] [address] Chris Owens MD 2[address] [facility] [address] [place] [address] Visit for screening mammogram (Primary [...] [facility] Oncology and Hematology [place] [address] [place] [address] 200 [place] [address] Chris Owens MD [address] [facility] [address] [place] [address] Scheduled Orders Name Type Priority Associated Diagnoses [...] extremity documented in this encounter Care Teams Research Assistant Relationship Specialty Start Date End Date Boris Mcnair DO 6812 [facility] 162 [facility] 204 [place] [address] PCP - General Internal Medicine 01/06/20 02/20/23 documented as of this encounter
--- OUTSIDE RECORDS SUMMARY | 2024-09-04 18:11 | XMS_ITS | Encounter Summary ---
Author Organization [facility] [employer] [facility] Address [address] [place] [address] Care Team Providers Care Gasket Former Name Role Phone Boris Mcnair DO Primary Care Provider [phone] Encounter Details Date Type Department Care Team (Late st Contact Info) Description 07/20/2021 Orders Only [facility] Oncology and Hematology [facility] [address] [place] [address] Judy Varghese Visit for screening [...] Description 12/04/2024 11:30 AM CDT Office Visit [facility] Oncology and Hematology [facility] [address] [place] [address] Chris Owens MD [address] [facility] [address] [place] [address] documented as of this encounter Visit Diagnoses Diagnosis Visit for screening mammogram Other screening mammogram Encounter for screening for lung cancer documented in this encounter Care Teams Gasket Former Relationship Specialty Start Date End Date Boris Mcnair DO [address] [facility] [address] [place] [address] PCP - General Internal Medicine 01/06/20 02/20/23 documented as of this encounter
--- OUTSIDE RECORDS SUMMARY | 2024-09-04 18:11 | XMS_ITS | Encounter Summary ---
Author Organization [facility] [employer] [facility] Address [address] [place] [address] Care Team Providers Care Clinical Rn Manager Name Role Phone Boris Mcnair Primary Care Provider [phone] Reason for Referral * Radiology Services (Routine) - Closed Specialty Diagnoses / Procedures Referred By Evan bo Referred To Contact Diagnoses Visit for screening mammogram Procedures MAMMO SCREEN BILAT W OR WO CAD Chris Owens MD [address] [place] [address] [place] [address] Referral ID Status Reason Start Date Expiration Date V isits Requested Visits Authorized [id number] Closed STL CTS 02/23/2022 03/26/2023 1 1 * CT Scan (Routine) - Closed Specialty Diagnoses / Procedures Referred By Evan bo Referred To Contact Diagnoses Encounter for screening for lung cancer Procedures CT LUNG SCREENING (F/U DIAGNOSTIC) W CONTRAST Chris Owens MD [address] [place] [address] [place] [address] Referral ID Status Reason Start Date Expiration Date V isits Requested Visits Authorized [id number] Closed STL CTS 05/04/2022 09/15/2022 1 1 Reason for Visit * Reason Comments Follow Up F/U with labs Encounter Details Date Type Department Care Team (Late st Contact Info) Description 02/23/2022 12:00 PM CDT Office Visit [facility] Oncology and Hematology - [place] [address] [facility] 200 [place] [address] Chris Owens MD [address] [facility] [address] [place] [address] Visit for screening mammogram (Primary [...] CDT Office Visit [facility] Oncology and Hematology - [place] [address] [facility] [address] [place] [address] Chris Owens MD [address] [facility] [address] [place] [address] Scheduled Orders Name Type Priority [...] state documented in this encounter Care Teams Clinical Rn Manager Relationship Specialty Start Date End Date Boris Mcnair DO [address] [place] [address] PCP - General Internal Medicine 01/06/20 02/20/23 documented as of this encounter
--- OUTSIDE RECORDS SUMMARY | 2024-09-04 18:11 | XMS_ITS | Encounter Summary ---
Author Organization [facility] [employer] Address [address] [place] [address] Care Team Providers Care Ground Transportation Operator Name Role Phone Boris Mcnair DO Primary Care Provider [phone] Encounter Details Date Type Department Care Team (Late st Contact Info) Description 07/21/2021 Orders Only [facility] Oncology and Hematology [facility] [address] [place] [address] Provider, Abstract NO ADDRESS ON [...] Description 12/04/2024 11:30 AM CDT Office Visit [facility] Oncology [facility] [address] [place] [address] Chris Owens MD [address] [facility] [address] [place] [address] documented as of this encounter Procedures Procedure Name Priority Date/Time Associated Diagnosis Comments TSH Routine 07/20/2021 COMPREHENSIVE METABOLIC PANEL Routine 07/20/2021 documented in this encounter Results * TSH (07/20/2021) Blood Abstract Provider CHEMISTRY ORDERABLES * COMPREHENSIVE METABOLIC PANEL (07/20/2021) Blood Abstract Provider CHEMISTRY ORDERABLES documented in this encounter Visit Diagnoses Not on filedocumented in this encounter Care Teams Ground Transportation Operator Relationship Specialty Start Date End Date Boris Mcnair DO 6812 [facility] 162 [facility] 204 [place] [address] PCP - General Internal Medicine 01/06/20 02/20/23 documented as of this encounter
--- OUTSIDE RECORDS SUMMARY | 2024-09-04 18:11 | XMS_ITS | Encounter Summary ---
Author Organization [facility] Address [address] [facility] Attn: Epic Prelude ADT LILY BAUMANN [address] Care Team Providers Care Rn Documentation Name Role Phone Boris Mcnair DO Primary Care Provider [phone] Encounter Details Date Type Department Care Team [...] [facility] [place] Oncology and Hematology - [place] [address] [facility] [address] [place] [address] Chris Owens MD 2[address] [facility] [address] [place] [address] documented as of this encounter Visit Diagnoses Not on filedocumented in this encounter Care Teams Rn Documentation Relationship Specialty Start Date End Date Boris Mcnair DO [address] [place] [address] PCP - General Internal Medicine 01/06/20 02/20/23 documented as of this encounter
--- OUTSIDE RECORDS SUMMARY | 2024-09-04 18:11 | XMS_ITS | Encounter Summary ---
Author Organization [facility] [employer] [facility] Address [address] [place] [address] Care Team Providers Care Boiler Out Name Role Phone Boris Mcnair DO Primary Care Provider [phone] Reason for Visit * Reason Onset Date Comments hold xeralto 2 days before procedure 06/15/2021 Encounter Details Date Type Department Care Team (Late Contact Info) Description 06/15/2021 Telephone [facility] Oncology and Hematology - [place] [address] [facility] 200 [place] [address] Chris Owens MD [address] [facility] [address] [place] [address] hold xeralto 2 days before [...] [facility] Oncology and Hematology - [place] [address] [facility] [address] [place] [address] Chris Owens MD [address] [facility] [address] [place] [address] documented as of this encounter Visit Diagnoses Not on filedocumented in this encounter Care Teams Boiler Out Relationship Specialty Start Date End Date Boris Mcnair DO 6812 [facility] [address] [place] [address] PCP - General Internal Medicine 01/06/20 02/20/23 documented as of this encounter
--- OUTSIDE RECORDS SUMMARY | 2024-09-04 18:11 | XMS_ITS | Encounter Summary ---
Author Organization [facility] [employer] Address [address] [place] [address] Care Team Providers Care Level Vial Inside Grinder Name Role Phone Boris Mcnair DO Primary Care Provider [phone] Encounter Details Date Type Department Care Team (Late Contact Info) Description 03/11/2022 Orders Only [facility] Oncology [facility] Hematology [facility] [address] [place] [address] Chris Owens MD [facility] [employer] [address] [place] [address] Hypercoagulable state Social History Tobacco Use [...] [facility] Oncology and Hematology [facility] [address] [place] [address] Chris Owens MD [address] [employer] [address] [place] [address] documented as of this encounter Visit Diagnoses Diagnosis Hypercoagulable state Primary hypercoagulable state documented in this encounter Care Teams Level Vial Inside Grinder Relationship Specialty Start Date End Date Boris Mcnair DO [address] [facility] [address] [place] [address] PCP - General Internal Medicine 01/06/20 02/20/23 documented as of this encounter
--- OUTSIDE RECORDS SUMMARY | 2024-09-04 18:11 | XMS_ITS | Encounter Summary ---
Author Organization [facility] [employer] [facility] Address [address] [place] [address] Care Team Providers Care Eeo Officer Name Role Phone Boris Mcnair DO Primary Care Provider [phone] Reason for Visit * Reason Onset Date Comments Labs Only 02/23/2022 Labs Encounter Details Date Type Department Care Team (Late Contact Info) Description 02/23/2022 Telephone [facility] Oncology and Hematology - [place] [address] [facility] [address] [place] [address] Chris Owens MD [address] [facility] [address] [place] [address] Labs Only (Labs/) Social History [...] Center Oncology and Hematology - [place] [address] [facility] [address] [place] [address] Chris Owens MD [address] [facility] [address] [place] [address] Scheduled Orders Name Type Priority Associated Diagnoses Orde r Schedule CBC WITH DIFFERENTIAL Lab Routine Hypercoagulable state Expected: 02/23/2022, Expires: 02/23/2023 COMPREHENSIVE METABOLIC PANEL Lab Routine Hypercoagulable state Expected: 02/23/2022, Expires: 02/23/2023 documented as of this encounter Visit Diagnoses Diagnosis Hypercoagulable state- Primary Primary hypercoagulable state documented in this encounter Care Teams Eeo Officer Relationship Specialty Start Date End Date Boris Mcnair DO [address] [place] [address] PCP - General Internal Medicine 01/06/20 02/20/23 documented as of this encounter
--- OUTSIDE RECORDS SUMMARY | 2024-09-04 18:11 | XMS_ITS | Encounter Summary ---
Author Organization [facility] [employer] Address [address] [place] [address] Care Team Providers Care Manager Biologics Name Role Phone Boris Mcnair DO Primary Care Provider [phone] Encounter Details Date Type Department Care Team (Late st Contact Info) Description 07/20/2021 Orders Only [facility] Oncology and Hematology [facility] [address] [place] [address] Provider, Abstract NO ADDRESS ON [...] Office Visit [facility] Oncology [facility] [address] [place] [address] Chris Owens MD [address] [facility] [address] [place] [address] documented as of this encounter Procedures Procedure Name Priority Date/Time Associated Diagnosis Comments COMPREHENSIVE METABOLIC PANEL Routine 07/20/2021 documented in this encounter Results * COMPREHENSIVE METABOLIC PANEL (07/20/2021) Blood Abstract Provider CHEMISTRY ORDERABLES documented in this encounter Visit Diagnoses Not on filedocumented in this encounter Care Teams Manager Biologics Relationship Specialty Start Date End Date Boris Mcnair DO [address] [facility] [address] [facility] [address] [place] [address] PCP - General Internal Medicine 01/06/20 02/20/23 documented as of this encounter
--- OUTSIDE RECORDS SUMMARY | 2024-09-04 18:11 | XMS_ITS | Encounter Summary ---
Author Organization [facility] [employer] Address [address] [place] [address] Care Team Providers Care Coal Hauler Operator Name Role Phone Boris Mcnair DO Primary Care Provider [phone] Encounter Details Date Type Department Care Team (Late Contact Info) Description 03/18/2022 Orders Only [facility] Oncology [facility] Hematology [facility] [address] [place] [address] Chris Owens MD [facility] [employer] [address] [place] [address] Hypercoagulable state Social History Tobacco Use [...] Description 12/04/2024 11:30 AM CDT Office Visit [facility] Oncology and Hematology [facility] [address] [place] [address] Chris Owens MD [address] [employer] [address] [place] [address] documented as of this encounter Visit Diagnoses Diagnosis Hypercoagulable state Primary hypercoagulable state documented in this encounter Care Teams Coal Hauler Operator Relationship Specialty Start Date End Date Boris Mcnair DO [address] [facility] [address] [place] [address] PCP - General Internal Medicine 01/06/20 02/20/23 documented as of this encounter
--- OUTSIDE RECORDS SUMMARY | 2024-09-04 18:11 | XMS_ITS | Encounter Summary ---
Author Organization [facility] [employer] [facility] Address [address] [place] [address] Care Team Providers Care Lithostripper Name Role Phone Boris Mcnair DO Primary Care Provider [phone] Reason for Visit * Reason Comments Med Refill Encounter Details Date Type Department Care Team ([facility] Contact Info) Description 05/22/2022 Refill [facility] Oncology and Hematology - [place] [address] [place] [address] Chris Owens MD [facility] [employer] [address] [place] [address] Social History Tobacco Use Types Packs/Day [...] Hematology - [place] [address] [place] [address] Chris Owens MD [facility] [employer] [address] [place] [address] documented as of this encounter Visit Diagnoses Not on filedocumented in this encounter Care Teams Lithostripper Relationship Specialty Start Date End Date Boris Mcnair DO [address] [facility] [address] [facility] [address] [place] [address] PCP - General Internal Medicine 01/06/20 02/20/23 documented as of this encounter
--- OUTSIDE RECORDS SUMMARY | 2024-09-04 18:11 | XMS_ITS | Encounter Summary ---
Author Organization [facility] Address [address] [facility] Attn: Epic Prelude ADT LILY BAUMANN [address] Care Team Providers Care Telephone Operators Supervisor Name Role Phone Boris Mcnair DO Primary Care Provider [phone] Encounter Details Date Type Department Care Team [...] Hospital Oncology and Hematology - [place] [address] [facility] [address] [place] [address] Chris Owens MD [address] [facility] [address] [place] [address] documented as of this encounter Visit Diagnoses Not on filedocumented in this encounter Care Teams Telephone Operators Supervisor Relationship Specialty Start Date End Date Boris Mcnair DO [address] [facility] [address] [place] [address] PCP - General Internal Medicine 01/06/20 02/20/23 documented as of this encounter
--- OUTSIDE RECORDS SUMMARY | 2024-09-04 18:11 | XMS_ITS | Encounter Summary ---
Author Organization [facility] [employer] [facility] Address [address] [place] [address] Care Team Providers Care Mechanical Equipment Sales Engineer Name Role Phone Boris Mcnair DO Primary Care Provider [phone] Reason for Visit * Reason Comments Follow Up Positive Colon Cance r Screening Encounter Details Date Type Department Care Team (Late st Contact Info) Description 08/25/2020 3:00 PM PSYCHIATRIC NURSING AIDE Office Visit [facility] Oncology and Hematology - [place] [address] [facility] [address] [place] [address] Chris Owens MD [address] [facility] [address] [place] [address] Chronic embolism and thrombosis of [...] COVID-19? No / Unsure 08/25/2020 2:09 PM PSYCHIATRIC NURSING AIDE documented as of this encounter Last Filed Vital Signs Vital Sign Reading Time Taken Comments Blood Pressure 120/76 08/25/2020 3:03 PM PSYCHIATRIC NURSING AIDE Pulse 77 08/25/2020 3:03 PM PSYCHIATRIC NURSING AIDE Temperature 36.6 ??C (97.9 ??F) 08/25/2020 3:03 PM CS T Respiratory Rate - - Oxygen Saturation 98% 08/25/2020 3:03 PM PSYCHIATRIC NURSING AIDE Inhaled Oxygen Concentration - - Weight 86.2 kg (190 lb) 08/25/2020 3:03 PM PSYCHIATRIC NURSING AIDE Height 162.6 cm (5' 4 ) 08/25/2020 3:03 PM PSYCHIATRIC NURSING AIDE Body Mass Index 32.61 08/25/2020 3:03 PM PSYCHIATRIC NURSING AIDE documented in this encounter Progress Notes * [...] discontinue tobacco use. 08/25/2020 Chris Owens MD HIATRIC NURSING AIDE documented in this encounter Plan of Treatment Upcoming Encounters Date Type Department Care Team (Late st Contact Info) Description 12/04/2024 11:30 AM CDT Office Visit [facility] Oncology and Hematology - [place] [address] [facility] [address] [place] [address] Chris Owens MD [address] [facility] [address] [place] [address] documented as of this encounter Visit Diagnoses Diagnosis Chronic embolism and thrombosis of unspecified deep veins of right lower extremity- Primary documented in this encounter Care Teams Mechanical Equipment Sales Engineer Relationship Specialty Start Date End Date Boris Mcnair DO [address] [facility] [address] [place] [address] PCP - General Internal Medicine 01/06/20 02/20/23 documented as of this encounter
--- OUTSIDE RECORDS SUMMARY | 2024-09-04 18:11 | XMS_ITS | Encounter Summary ---
Author Organization [facility] Address [address] [facility] Attn: Epic Prelude ADT LILY BAUMANN [address] Care Team Providers Care Cigarette Tipper Name Role Phone Boris Mcnair DO Primary Care Provider [phone] Encounter Details Date Type Department Care Team [...] COVID-19? No / Unsure 08/25/2020 2:09 PM OPTICAL TECHNICIAN documented as of this encounter Plan of Treatment Upcoming Encounters Date Type Department Care Team (Late st Contact Info) Description 12/04/2024 11:30 AM CDT Office Visit [facility] Oncology and Hematology - [place] [address] [facility] [address] [place] [address] Chris Owens MD [address] [facility] [address] [place] [address] documented as of this encounter Visit Diagnoses Not on filedocumented in this encounter Care Teams Cigarette Tipper Relationship Specialty Start Date End Date Boris Mcnair DO [address] [place] [address] PCP - General Internal Medicine 01/06/20 02/20/23 documented as of this encounter
--- OUTSIDE RECORDS SUMMARY | 2024-09-04 18:12 | XMS_ITS | Encounter Summary ---
Author Organization [facility] [employer] Address [address] [place] [address] Care Team Providers Care Barrel Cooper Name Role Phone Boris Mcnair DO Primary Care Provider [phone] Encounter Details Date Type Department Care Team (Late st Contact Info) Description 07/11/2020 Orders Only [facility] Oncology and Hematology [facility] [address] [place] [address] Lisa Ma RN Visit for [...] Description 12/04/2024 11:30 AM CDT Office Visit [facility] Oncology [facility] [address] [place] [address] Chris Owens MD [address] [facility] [address] [place] [address] documented as of this encounter Procedures Procedure Name Priority Date/Time Associated Diagnosis Comments CBC WITH DIFFERENTIAL Routine 08/01/2020 Visit for screening mammogram COMPREHENSIVE METABOLIC PANEL Routine 08/01/2020 Visit for screening mammogram documented in this encounter Results * CBC WITH DIFFERENTIAL (08/01/2020) Blood Chris Owens MD HEMATOLOGY ORDERABLE S NON [facility] * COMPREHENSIVE METABOLIC PANEL (08/01/2020) Blood Chris Owens MD CHEMISTRY ORDERABLES Performing Organization Address City/[facility] Co de Phone Number NON [facility] documented in this encounter Visit Diagnoses Diagnosis Visit for screening mammogram Other screening mammogram documented in this encounter Care Teams Barrel Cooper Relationship Specialty Start Date End Date Boris Mcnair DO [address] [facility] [address] [place] [address] PCP - General Internal Medicine 01/06/20 02/20/23 documented as of this encounter
--- OUTSIDE RECORDS SUMMARY | 2024-09-04 18:12 | XMS_ITS | Encounter Summary ---
Author Organization [facility] [employer] Address [address] [place] [address] Care Team Providers Care Warehouse Consultant Name Role Phone Boris Mcnair DO Primary Care Provider [phone] Reason for Visit * Reason Onset Date Comments Needs Orders Written 08/01/2020 Encounter Details Date Type Department Care Team ([facility] Contact Info) Description 08/01/2020 Telephone [facility] [address] [place] [address] Chris Owens MD [address] [place] [address] Needs Orders Written Social History Tobacco [...] COVID-19? No / Unsure 07/26/2020 8:03 AM PRECISION DEVICES INSPECTOR/TESTER documented as of this encounter Plan of Treatment Upcoming Encounters Date Type Department Care Team ([facility] Contact Info) Description 12/04/2024 11:30 AM CDT Office Visit [facility] Oncology [facility] [address] [place] [address] Chris Owens MD [address] [place] [address] documented as of this encounter Visit Diagnoses Diagnosis Chronic embolism and thrombosis of unspecified deep veins of right lower extremity- Primary Secondary hypercoagulable state documented in this encounter Care Teams Warehouse Consultant Relationship Specialty Start Date End Date Boris Mcnair DO [address] [facility] [address] [place] [address] PCP - General Internal Medicine 01/06/20 02/20/23 documented as of this encounter
--- OUTSIDE RECORDS SUMMARY | 2024-09-04 18:12 | XMS_ITS | Encounter Summary ---
Author Organization [facility] [employer] [facility] Address [address] [place] [address] Care Team Providers Care Staffing Program Manager Name Role Phone Boris Mcnair DO Primary Care Provider [phone] Reason for Visit * Reason Comments Follow Up MMG f/u with labs an d Lung CT - New concerns- lump on groin Encounter Details Date Type Department Care Team (Late st Contact Info) Description 08/01/2020 2:00 PM DIRECTOR SEARCH MARKETING STRATEGIES Office Visit [facility] Oncology and Hematology - [place] [address] [place] [address] [facility] 200 [place] [address] Chris Owens MD [address] [facility] [address] [place] [address] Hypercoagulable state (Primary Dx) Social [...] COVID-19? No / Unsure 08/01/2020 1:52 PM DIRECTOR SEARCH MARKETING STRATEGIES documented as of this encounter Last Filed Vital Signs Vital Sign Reading Time Taken Comments Blood Pressure 134/64 08/01/2020 2:12 PM DIRECTOR SEARCH MARKETING STRATEGIES Pulse 73 08/01/2020 2:12 PM DIRECTOR SEARCH MARKETING STRATEGIES Temperature 36.7 ??C (98 ??F) 08/01/2020 2:12 PM DIRECTOR SEARCH MARKETING STRATEGIES Respiratory Rate - - Oxygen Saturation 96% 08/01/2020 2:12 PM DIRECTOR SEARCH MARKETING STRATEGIES Inhaled Oxygen Concentration - - Weight 86.8 kg (191 lb 4.8 oz) 08/01/2020 2:12 P M DIRECTOR SEARCH MARKETING STRATEGIES Height 162.6 cm (5' 4 ) 08/01/2020 2:12 PM DIRECTOR SEARCH MARKETING STRATEGIES Body Mass Index 32.84 08/01/2020 2:12 PM DIRECTOR SEARCH MARKETING STRATEGIES documented in this encounter Progress Notes * [...] discontinue tobacco use. 08/01/2020 Chris Owens MD CTOR SEARCH MARKETING STRATEGIES documented in this encounter Plan of Treatment Upcoming Encounters Date Type Department Care Team (Late st Contact Info) Description 12/04/2024 11:30 AM CDT Office Visit [facility] Oncology and Hematology - [place] [address] [facility] [address] [place] [address] Chris Owens MD [address] [facility] [address] [place] [address] Scheduled Orders Name Type Priority Associated Diagnoses Orde r Schedule CBC WITH DIFFERENTIAL Lab Routine Hypercoagulable state Expected: 01/30/2021, Expires: 08/01/2021 COMPREHENSIVE METABOLIC PANEL Lab Routine Hypercoagulable state Expected: 01/30/2021, Expires: 08/01/2021 documented as of this encounter Visit Diagnoses Diagnosis Hypercoagulable state- Primary Primary hypercoagulable state documented in this encounter Care Teams Staffing Program Manager Relationship Specialty Start Date End Date Boris Mcnair DO [address] [place] [address] PCP - General Internal Medicine 01/06/20 02/20/23 documented as of this encounter
--- OUTSIDE RECORDS SUMMARY | 2024-09-04 18:12 | XMS_ITS | Encounter Summary ---
Author Organization [facility] Address [address] [place] [address] Care Team Providers Care Sole Stapler Welt Name Role Phone Dominic Fernando MD Primary Care Provider + Reason for Visit * Reason Comments Medication Refill Encounter Details Date Type Department Care Team ([facility] Contact Info) Description 04/11/2019 Refill [facility] Oncology and Hematology [place] [address] [place] [address] Chris Owens MD [address] [employer] [address] [place] [address] Social History Tobacco Use Types Packs/Day [...] Upcoming Encounters Date Type Department Care Team ([facility] Contact Info) Description 12/04/2024 11:30 AM CDT Office Visit [facility] Oncology and Hematology - [place] [address] [place] [address] Chris Owens MD [address] [employer] [address] [place] [address] documented as of this encounter Visit Diagnoses Not on filedocumented in this encounter Care Teams Sole Stapler Welt Relationship Specialty Start Date End Date Dominic Fernando MD [address] [place] [address] PCP - General Internal Medicine 11/15/17 01/05/20 documented as of this encounter
--- OUTSIDE RECORDS SUMMARY | 2024-09-04 18:12 | XMS_ITS | Encounter Summary ---
Author Organization [facility] Address [address] [facility] Attn: Epic Prelude ADT LILY BAUMANN [address] Care Team Providers Care Wafer Abrading Machine Tender Name Role Phone Boris Mcnair DO Primary Care Provider [phone] Encounter Details Date Type Department Care Team [...] [facility] Oncology and Hematology - [place] [address] [facility] [address] [place] [address] Chris Owens MD [address] [facility] [address] [place] [address] documented as of this encounter Visit Diagnoses Not on filedocumented in this encounter Care Teams Wafer Abrading Machine Tender Relationship Specialty Start Date End Date Boris Mcnair DO [address] [facility] [address] [place] [address] PCP - General Internal Medicine 01/06/20 02/20/23 documented as of this encounter
--- OUTSIDE RECORDS SUMMARY | 2024-09-04 18:12 | XMS_ITS | Encounter Summary ---
Author Organization [facility] Address [address] [place] [address] Care Team Providers Care Airport Engineer Name Role Phone Dominic Fernando MD Primary Care Provider + Reason for Referral * CT Scan (Routine) - Closed Specialty Diagnoses / Procedures Referred By Evan bo Referred To Contact Diagnoses Encounter for screening for lung cancer Procedures CT LUNG SCREENING CT CHEST F/U LDCT LUNG SCREEN W CONTRAST Chris Owens MD [address] [address] [address] Referral ID Status Reason Start Date Expiration Date Visits Requested Visits Authorized [id number] Closed Ordering Department To Schedule 07/07/2019 08/06/2020 1 1 * Outpatient Services (Routine) - Closed Specialty Diagnoses / Procedures Referred By Evan bo Referred To Contact Diagnoses Visit for screening mammogram Procedures MAMMO SCREEN BILAT W OR WO CAD Chris Owens MD [address] [address] [address] Referral ID Status Reason Start Date Expiration Date Visits Requested Visits Authorized [id number] Closed Ordering Department To Schedule 07/07/2019 08/06/2020 1 1 Reason for Visit * Reason Comments Follow Up 6MTH W/LABS Encounter Details Date Type Department Care Team (Late st Contact Info) Description 07/07/2019 9:45 AM CDT Office Visit [facility] Oncology and Hematology - [place] [address] [facility] [address] [place] [address] Chris Owens MD [address] [facility] [address] [place] [address] Visit for screening mammogram (Primary [...] CDT Office Visit [facility] Oncology and Hematology [facility] [address] [facility] [address] [place] [address] Chris Owens MD [address] [facility] [address] [place] [address] documented as of this encounter Results * CBC WITH DIFFERENTIAL (01/06/2020) Blood Chris Owens MD HEMATOLOGY ORDERABLE S Performing Organization Address City/[facility] Co de Phone Number NON [facility] * COMPREHENSIVE METABOLIC PANEL (07/15/2019) Blood Chris Owens MD CHEMISTRY ORDERABLES Performing Organization Address City/[facility]/ZIP Co de Phone Number EXTERNAL LAB * [...] cancer documented in this encounter Care Teams Airport Engineer Relationship Specialty Start Date End Date Dominic Fernando MD [address] [place] [address] PCP - General Internal Medicine 11/15/17 01/05/20 documented as of this encounter
--- OUTSIDE RECORDS SUMMARY | 2024-09-04 18:12 | XMS_ITS | Encounter Summary ---
Author Organization [facility] Address [address] [facility] Attn: Epic Prelude ADT LILY BAUMANN [address] Care Team Providers Care Java Integration Developer Name Role Phone Boris Mcnair DO Primary Care Provider [phone] Encounter Details Date Type Department Care Team [...] COVID-19? No / Unsure 07/26/2020 8:03 AM DIRECTORY OPERATOR documented as of this encounter Plan of Treatment Upcoming Encounters Date Type Department Care Team (Late st Contact Info) Description 12/04/2024 11:30 AM CDT Office Visit [facility] Oncology and Hematology - [place] [address] [facility] [address] [place] [address] Chris Owens MD [address] [facility] [address] [place] [address] documented as of this encounter Visit Diagnoses Not on filedocumented in this encounter Care Teams Java Integration Developer Relationship Specialty Start Date End Date Boris Mcnair DO [address] [place] [address] PCP - General Internal Medicine 01/06/20 02/20/23 documented as of this encounter
--- OUTSIDE RECORDS SUMMARY | 2024-09-04 18:12 | XMS_ITS | Encounter Summary ---
Author Organization [facility] [employer] Address [address] [place] [address] Care Team Providers Care Film Editor Supervisor Name Role Phone Boris Mcnair DO Primary Care Provider [phone] Encounter Details Date Type Department Care Team (Late Contact Info) Description 07/18/2020 Orders Only [facility] Oncology and [facility] [address] [place] [address] Lisa Ma, RN Visit for [...] CDT Office Visit [facility] Oncology [facility] [address] [place] [address] Chris Owens MD [address] [facility] [address] [place] [address] documented as of this encounter [...] uncomplicated documented in this encounter Care Teams Film Editor Supervisor Relationship Specialty Start Date End Date Boris Mcnair DO [address] [facility] [address] [place] [address] PCP - General Internal Medicine 01/06/20 02/20/23 documented as of this encounter
--- OUTSIDE RECORDS SUMMARY | 2024-09-04 18:12 | XMS_ITS | Encounter Summary ---
Author Organization [facility] Address [address] [place] [address] Care Team Providers Care Pharmacy Intake Coordinator Name Role Phone Dominic Fernando MD Primary Care Provider + Reason for Visit * Reason Comments Follow Up Results Encounter Details Date Type Department Care Team (Late st Contact Info) Description 01/05/2019 11:45 AM CDT Office Visit [facility] Oncology and Hematology - [place] [address] [facility] [address] [place] [address] Chris Owens MD [address] [facility] [address] [place] [address] Hypercoagulable state (Primary Dx); Right [...] / ONCOLOGY PROGRESS NOTE Patient Identification: Name: Ggee Vidal Age: 58 y.o. Sex: female : [...] [facility] [place] [facility] - [place] 2[address] [facility] [address] [place] [address] Chris Owens MD [address] [facility] [address] [place] [address] documented as of this encounter Results * (ABNORMAL) COMPREHENSIVE METABOLIC PANEL (07/07/2019) Blood Chris Owens MD CHEMISTRY ORDERABLES EXTERNAL LAB * CBC WITH DIFFERENTIAL (07/07/2019) Blood Chris Owens MD HEMATOLOGY ORDERABLE S Performing Organization Address City/[facility] Co de Phone Number EXTERNAL LAB documented in this encounter Visit Diagnoses Diagnosis Hypercoagulable state- Primary Primary hypercoagulable state Right leg swelling documented in this encounter Care Teams Pharmacy Intake Coordinator Relationship Specialty Start Date End Date Dominic Fernando MD [address] [place] [address] PCP - General Internal Medicine 11/15/17 01/05/20 documented as of this encounter
--- OUTSIDE RECORDS SUMMARY | 2024-09-04 18:12 | XMS_ITS | Encounter Summary ---
Author Organization [facility] Address [address] [place] [address] Care Team Providers Care Senior Associate Name Role Phone Boris Mcnair Primary Care Provider [phone] Reason for Referral * CT Scan (Routine) - Closed Specialty Diagnoses / Procedures Referred By Evan bo Referred To Contact Diagnoses Nicotine dependence, cigarettes, uncomplicated Procedures CT LUNG SCREENING (FOLLOW UP LOW DOSE) Chris Owens MD [address] [phone] [address] Referral ID Status Reason Start Date Expiration Date Visits Requested Visits Authorized [id number] Closed Ordering Department To Schedule 01/06/2020 02/05/2021 1 1 * Outpatient Services (Routine) - Closed Specialty Diagnoses / Procedures Referred By Evan t Referred To Contact Diagnoses Visit for screening mammogram Procedures MAMMO SCREEN BILAT W OR WO CAD Chris Owens MD [address] [employer] [place] [phone] [address] Referral ID Status Reason Start Date Expiration Date Visits Requested Visits Authorized [id number] Closed Ordering Department To Schedule 01/06/2020 02/05/2021 1 1 Reason for Visit * Reason Comments Follow Up [address]/mmg Encounter Details Date Type Department Care Team (Late st Contact Info) Description 01/06/2020 8:30 AM CDT Office Visit [facility] Oncology and Hematology - [place] [address] [facility] [address] [place] [address] Chris Owens MD [address] [facility] [address] [place] [address] Visit for screening mammogram (Primary [...] Visit [facility] Oncology and Hematology - [place] [address] [facility] [address] [place] [address] Chris Owens MD [address] [facility] [address] [place] [address] documented as of this encounter Results * COMPREHENSIVE METABOLIC PANEL (08/01/2020) Blood Chris Owens MD CHEMISTRY ORDERABLES NON [facility] * CBC WITH DIFFERENTIAL (08/01/2020) Blood Chris Owens MD HEMATOLOGY ORDERABLE S NON [facility] * CT LUNG SCREENING (FOLLOW UP [...] thrombophilia documented in this encounter Care Teams Senior Associate Relationship Specialty Start Date End Date Boris Mcnair DO [address] [facility] [address] [place] [address] PCP - General Internal Medicine 01/06/20 02/20/23 documented as of this encounter
--- OUTSIDE RECORDS SUMMARY | 2024-09-04 18:12 | XMS_ITS | Encounter Summary ---
Author Organization [facility] [employer] Address [address] [place] [address] Care Team Providers Care Rural Health Consultant Name Role Phone Dominic Fernando MD Primary Care Provider + Encounter Details Date Type Department Care Team (Late Contact Info) Description 07/15/2019 Orders Only [facility] [address] [place] [address] Chris Owens MD [address] [place], [place] [address] [address] [place] [address] Encounter for screening for lung cancer; [...] AM CDT Office Visit [facility] [address] [place] [address] Chris Owens MD [facility] [employer] [address] [place] [address] documented as of this encounter Procedures [...] Owens MD CHEMISTRY ORDERABLES Performing Organization Address City/State/[facility] Co de Phone Number EXTERNAL LAB [...] mammogram documented in this encounter Care Teams Rural Health Consultant Relationship Specialty Start Date End Date Dominic Fernando MD [address] [place] [address] PCP - General Internal Medicine 11/15/17 01/05/20 documented as of this encounter
--- OUTSIDE RECORDS SUMMARY | 2024-09-04 18:12 | XMS_ITS | Encounter Summary ---
Author Organization [facility] [employer] Address [address] [place] [address] Care Team Providers Care Publication Specialist Name Role Phone Dominic Fernando MD Primary Care Provider + Encounter Details Date Type Department Care Team (Late st Contact Info) Description 12/29/2019 Orders Only [facility] Oncology and Hematology [facility] [address] [place] [address] Lisa Ma RN Chronic embolism [...] Office Visit [facility] Oncology and Hematology [facility] [address] [place] [address] Chris Owens MD [address] [facility] [address] [place] [address] documented as of this encounter Procedures Procedure Name Priority Date/Time Associated Diagnosis Comments CBC WITH DIFFERENTIAL Routine 01/06/2020 Chronic embolism and thrombosis of unspecified deep veins of right lower extremity documented in this encounter Results * CBC WITH DIFFERENTIAL (01/06/2020) Blood Chris Owens MD HEMATOLOGY ORDERABLE S [facility] documented in this encounter Visit Diagnoses Diagnosis Chronic embolism and thrombosis of unspecified deep veins of right lower extremity documented in this encounter Care Teams Publication Specialist Relationship Specialty Start Date End Date Dominic Fernando MD [address] [place] [phone] PCP - General Internal Medicine 11/15/17 01/05/20 documented as of this encounter
--- OUTSIDE RECORDS SUMMARY | 2024-09-04 18:12 | XMS_ITS | Encounter Summary ---
Author Organization [facility] Address [address] [place] [address] Care Team Providers Care Metal Fitters And Machinists Name Role Phone Dominic Fernando MD Primary Care Provider + Reason for Visit * Reason Comments Medication Refill Encounter Details Date Type Department Care Team ([facility] Contact Info) Description 03/07/[address] [facility] Oncology and Hematology [place] [address] [place] [address] Chris Owens MD [address] [employer] [address] [place] [address] Social History Tobacco Use Types Packs/Day [...] Upcoming Encounters Date Type Department Care Team ([facility] Contact Info) Description 12/04/2024 11:30 AM CDT Office Visit [facility] Oncology and Hematology - [place] [address] [place] [address] Chris Owens MD [address] [facility] [address] [place] [address] documented as of this encounter Visit Diagnoses Not on filedocumented in this encounter Care Teams Metal Fitters And Machinists Relationship Specialty Start Date End Date Dominic Fernando MD [address] [place] [address] PCP - General Internal Medicine 11/15/17 01/05/20 documented as of this encounter
--- OUTSIDE RECORDS SUMMARY | 2024-09-04 18:12 | XMS_ITS | Encounter Summary ---
Author Organization [facility] Address [address] [place] [address] Care Team Providers Care Director Of Integrated Marketing Name Role Phone Dominic Fernando MD Primary Care Provider + Encounter Details Date Type Department Care Team ([facility] Contact Info) Description 07/01/2019 Orders Only [facility] Oncology and Hematology [facility] [address] [place] [address] Chris Owens MD [address] [place] [address] [facility] [address] [place] [address] Hypercoagulable state Social History Tobacco [...] [facility] Oncology and Hematology [facility] [address] [place] [address] [place] [address] [place] [address] [employer] [facility] [employer] [address] [place] [address] documented as of this encounter [...] MD CHEMISTRY ORDERABLES Performing Organization Address City/[facility]/ZIP Co de Phone Number EXTERNAL LAB documented in this encounter Visit Diagnoses Diagnosis Hypercoagulable state Primary hypercoagulable state documented in this encounter Care Teams Director Of Integrated Marketing Relationship Specialty Start Date End Date Dominic Fernando MD [address] [place] [address] PCP - General Internal Medicine 11/15/17 01/05/20 documented as of this encounter
--- OUTSIDE RECORDS SUMMARY | 2024-09-04 18:12 | XMS_ITS | Encounter Summary ---
Author Organization [facility] Address [address] [facility] Attn: Epic Prelude ADT LILY BAUMANN [address] Care Team Providers Care Associate Attorney Name Role Phone Boris Mcnair DO Primary Care Provider [phone] Encounter Details Date Type Department Care Team [...] COVID-19? No / Unsure 08/01/2020 1:52 PM BEREAVEMENT PROGRAM COORDINATOR documented as of this encounter Plan of Treatment Upcoming Encounters Date Type Department Care Team (Late st Contact Info) Description 12/04/2024 11:30 AM CDT Office Visit [facility] Oncology and Hematology - [place] [address] [facility] [address] [place] [address] Chris Owens MD [address] [facility] [address] [place] [address] documented as of this encounter Visit Diagnoses Not on filedocumented in this encounter Care Teams Associate Attorney Relationship Specialty Start Date End Date Boris Mcnair DO [address] [place] [address] PCP - General Internal Medicine 01/06/20 02/20/23 documented as of this encounter
--- OUTSIDE RECORDS SUMMARY | 2024-09-04 18:13 | XMS_ITS | Encounter Summary ---
Author Organization [facility] Address [address] [place] [address] Care Team Providers Care Police Superintendent Name Role Phone Dominic Fernando MD Primary Care Provider + Reason for Visit * Reason Comments Follow Up Encounter Details Date Type Department Care Team (Late st Contact Info) Description 09/05/2018 10:15 AM FLANGE TURNER Office Visit [facility] Oncology and Hematology - [place] 2[address] [facility] [address] [place] [address] Chris Owens MD [address] [facility] [address] [place] [address] Hypercoagulable state (Primary Dx) Social [...] Comments Blood Pressure 118/66 09/05/2018 10:54 AM FLANGE TURNER Pulse 80 09/05/2018 10:54 AM FLANGE TURNER Temperature 36.4 ??C (97.5 ??F) 09/05/2018 10:[address] Respiratory Rate 18 09/05/2018 10:54 AM FLANGE TURNER Oxygen Saturation 96% 09/05/2018 10:54 AM FLANGE TURNER Inhaled Oxygen Concentration - - Weight 84.8 kg (187 lb) 09/05/2018 10:54 AM FLANGE TURNER Height 162.6 cm (5' 4 ) 09/05/2018 10:54 AM FLANGE TURNER Body Mass Index 32.1 09/05/2018 10:54 AM FLANGE TURNER documented in this encounter Progress Notes * [...] some diverticulitis. ? 09/05/2018 Chris Owens MD GE TURNER documented in this encounter Plan of Treatment Upcoming Encounters Date Type Department Care Team (Late st Contact Info) Description 12/04/2024 11:30 AM CDT Office Visit [facility] Oncology and Hematology [facility] [address] [facility] [address] [place] [address] Chris Owens MD [address] [facility] [address] [place] [address] documented as of this encounter Results * BASIC METABOLIC PANEL (01/05/2019) Blood Chris Owens MD CHEMISTRY ORDERABLES Performing Organization Address City/[facility]/ZIP Co de Phone Number EXTERNAL LAB * CBC WITH DIFFERENTIAL (01/05/2019) Blood Chris Owens MD HEMATOLOGY ORDERABLE S EXTERNAL LAB documented in this encounter Visit Diagnoses Diagnosis Hypercoagulable state- Primary Primary hypercoagulable state documented in this encounter Care Teams Police Superintendent Relationship Specialty Start Date End Date Dominic Fernando MD [address] [place] [address] PCP - General Internal Medicine 11/15/17 01/05/20 documented as of this encounter
--- OUTSIDE RECORDS SUMMARY | 2024-09-04 18:13 | XMS_ITS | Encounter Summary ---
Author Organization [facility] Address [address] [place] [address] Care Team Providers Care Magento Web Developer Name Role Phone Dominic Fernando MD Primary Care Provider + Encounter Details Date Type Department Care Team (Late st Contact Info) Description 12/29/2018 Orders Only [facility] Oncology and Hematology [facility] [address] [place] [address] Tiffany Gonzales RN Hypercoagulable state [...] Office Visit [facility] Oncology and [facility] [address] [place] [address] Chris Owens MD [address] [facility] [address] [place] [address] documented as of this encounter Procedures Procedure Name Priority Date/Time Associated Diagnosis Comments CBC WITH DIFFERENTIAL Routine 01/05/2019 Hypercoagulable state BASIC METABOLIC PANEL Routine 01/05/2019 Hypercoagulable state documented in this encounter Results * CBC WITH DIFFERENTIAL (01/05/2019) Blood Chris Owens MD HEMATOLOGY ORDERABLE S EXTERNAL LAB * BASIC METABOLIC PANEL (01/05/2019) Blood Chris Owens MD CHEMISTRY ORDERABLES EXTERNAL LAB documented in this encounter Visit Diagnoses Diagnosis Hypercoagulable state Primary hypercoagulable state documented in this encounter Care Teams Magento Web Developer Relationship Specialty Start Date End Date Dominic Fernando MD [address] [place] [address] PCP - General Internal Medicine 11/15/17 01/05/20 documented as of this encounter
--- OUTSIDE RECORDS SUMMARY | 2024-09-04 18:13 | XMS_ITS | Encounter Summary ---
Author Organization [facility] Address [address] [place] [address] Care Team Providers Care Machine Design Checker Name Role Phone Dominic Fernando MD Primary Care Provider + Reason for Referral * Radiology Services (Routine) - Closed Specialty Diagnoses / Procedures Referred By Evan bo Referred To Contact Diagnoses Right leg swelling Personal history of DVT (deep vein thrombosis) Procedures US VENOUS DOPPLER LEG RIGHT Chris Owens MD [address] [employer] [address] [place] [address] [address] Referral ID Status Reason Start Date Expiration Date Visits Requested Visits Authorized [id number] Closed Ordering Department To Schedule 07/21/2018 08/21/2019 1 1 BURN OFF OPERATOR Reason for Visit * Reason Onset Date Comments Leg Swelling 07/21/2018 Encounter Details Date Type Department Care Team (Late st Contact Info) Description 07/21/2018 Telephone [facility] Oncology and Hematology - [place]roldo [address] [facility] [address] [place] [address] Chris Owens MD [address] [place] [address] Leg Swelling Social History Tobacco [...] order faxed to [place]. Tiffany Gonzales RN BURN OFF OPERATOR documented in this encounter Plan of Treatment Upcoming Encounters Date Type Department Care Team (Late st Contact Info) Description 12/04/2024 11:30 AM CDT Office Visit [facility] Oncology and Hematology [facility] [address] [facility] [address] [place] [address] Chris Owens MD [address] [facility] [address] [place] [address] documented as of this encounter Results * US VENOUS DOPPLER LEG RIGHT (07/21/2018) Anatomical Region Laterality Modality Lower Extremity Other Chirs Owens MD ORDERABLES documented in this encounter Visit Diagnoses Diagnosis Right leg swelling- Primary Personal history of DVT (deep vein thrombosis) Personal history of venous thrombosis and embolism documented in this encounter Care Teams Machine Design Checker Relationship Specialty Start Date End Date Dominic Fernando MD [address] [place] [address] PCP - General Internal Medicine 11/15/17 01/05/20 documented as of this encounter
--- OUTSIDE RECORDS SUMMARY | 2024-09-04 18:13 | XMS_ITS | Encounter Summary ---
Author Organization [facility] Address [address] [place] [address] Care Team Providers Care Journey Lineman Name Role Phone Dominic Fernando MD Primary Care Provider + Encounter Details Date Type Department Care Team ([facility] Contact Info) Description 07/29/2018 Orders Only [facility] Oncology and Hematology [place] [address] [place] [address] Chris Owens MD [address] [place] [address] [employer] [address] [place] [address] Hypercoagulable state Social History Tobacco Use [...] Upcoming Encounters Date Type Department Care Team ([facility] Contact Info) Description 12/04/2024 11:30 AM CDT Office Visit [facility] Oncology and Hematology [facility] [address] [place] [address] [place] [address] [place] [address] [employer] [address] [place] [address] documented as [...] state documented in this encounter Care Teams Journey Lineman Relationship Specialty Start Date End Date Dominic Fernando MD [address] [place] [address] PCP - General Internal Medicine 11/15/17 01/05/20 documented as of this encounter
--- OUTSIDE RECORDS SUMMARY | 2024-09-04 18:13 | XMS_ITS | Encounter Summary ---
Author Organization [facility] Address [address] [place] [address] Care Team Providers Care Beading Sawyer Name Role Phone Dominic Fernando MD Primary Care Provider + Encounter Details Date Type Department Care Team (Late Contact Info) Description 07/23/2018 Orders Only [facility] Oncology and Hematology [facility] [address] [place] [address] Chris Owens MD [facility] [employer] [address] [place] [address] Right leg swelling; Personal history of [...] [facility] Oncology and Hematology [facility] [address] [place] [address] Chris Owens MD [address] [employer] [facility] [employer] [address] [place] [address] documented as of this encounter Procedures [...] embolism documented in this encounter Care Teams Beading Sawyer Relationship Specialty Start Date End Date Dominic Fernando MD [address] [place] [address] PCP - General Internal Medicine 11/15/17 01/05/20 documented as of this encounter
--- OUTSIDE RECORDS SUMMARY | 2024-09-04 18:13 | XMS_ITS | Encounter Summary ---
Author Organization [facility] Address [address] [place] [address] Care Team Providers Care Strategy Associate Name Role Phone Dominic Fernando MD Primary Care Provider + Reason for Visit * Reason Onset Date Comments Medication Review 08/14/2018 Encounter Details Date Type Department Care Team (Late Contact Info) Description 08/14/2018 Telephone [facility] Oncology and Hematology [facility] [address] [place] [address] [place] [address] [place] [address] [address] [place] [address] Medication Review Social History Tobacco [...] prior to knee surgery. Tiffany Gonzales RN T SET UP SPECIALIST documented in this encounter Plan of Treatment Upcoming Encounters Date Type Department Care Team (Late Contact Info) Description 12/04/2024 11:30 AM CDT Office Visit [facility] Oncology and Hematology [facility] [address] [place] [address] Chris Owens MD [address] [facility] [address] [place] [address] documented as of this encounter Visit Diagnoses Not on filedocumented in this encounter Care Teams Strategy Associate Relationship Specialty Start Date End Date Dominic Fernando MD [address] [place] [address] PCP - General Internal Medicine 11/15/17 01/05/20 documented as of this encounter
--- OUTSIDE RECORDS SUMMARY | 2024-09-04 18:14 | XMS_ITS | Encounter Summary ---
Author Organization [facility] Address [address] [place] [address] Care Team Providers Care Pharmacy Operations Manager Name Role Phone Dominic Fernando MD Primary Care Provider + Reason for Visit * Reason Comments Follow Up Post CVA Encounter Details Date Type Department Care Team (Late st Contact Info) Description 03/24/2018 11:45 AM CDT Office Visit [facility] Oncology and Hematology - [place] [address] [place] [address] [address] [place] [address] Chris Owens MD [address] [facility] [address] [place] [address] Secondary hypercoagulable state (Primary Dx); [...] Office Visit [facility] Oncology and Hematology - [place] [address] [facility] [address] [place] [address] Chris Owens MD [address] [facility] [address] [place] [address] documented as of this encounter Visit Diagnoses Diagnosis Secondary hypercoagulable state- Primary Diverticulitis Diverticulitis of colon (without mention of hemorrhage) documented in this encounter Care Teams Pharmacy Operations Manager Relationship Specialty Start Date End Date Dominic Fernando MD [address] [place] [address] PCP - General Internal Medicine 11/15/17 01/05/20 documented as of this encounter
--- OUTSIDE RECORDS SUMMARY | 2024-09-04 18:14 | XMS_ITS | Encounter Summary ---
Author Organization [facility] Address [address] [place] [address] Care Team Providers Care Net Fisher Name Role Phone Dominic Fernando MD Primary Care Provider + Reason for Visit * Reason Comments Follow Up Encounter Details Date Type Department Care Team (Late st Contact Info) Description 06/09/2018 11:30 AM CDT Office Visit [facility] Oncology and Hematology - [place] [address] [facility] [address] [place] [address] Chris Owens MD [address] [facility] [address] [place] [address] Hypercoagulable state (Primary Dx) Social [...] Description 12/04/2024 11:30 AM CDT Office Visit [facility] Oncology and Hematology - [place] [address] [facility] [address] [place] [address] Chris Owens MD [address] [facility] [address] [place] [address] documented as of this encounter Results * LUPUS ANTICOAGULANT W/REFLEX CONFIRMATION (07/25/2018) Blood Chris Owens MD HEMATOLOGY ORDERABLE S EXTERNAL LAB documented in this encounter Visit Diagnoses Diagnosis Hypercoagulable state- Primary Primary hypercoagulable state documented in this encounter Care Teams Net Fisher Relationship Specialty Start Date End Date Dominic Fernando MD [address] [place] [address] PCP - General Internal Medicine 11/15/17 01/05/20 documented as of this encounter
--- OUTSIDE RECORDS SUMMARY | 2024-09-04 18:14 | XMS_ITS | Encounter Summary ---
Author Organization [facility] Address [address] [place] [address] Care Team Providers Care Medical Scheduler Name Role Phone Dominic Fernando MD Primary Care Provider + Encounter Details Date Type Department Care Team (Late st Contact Info) Description 03/25/[address] [facility] Oncology and Hematology [facility] [address] [place] [address] Tiffany Gonzales RN Social History [...] Visit [facility] Oncology and [facility] [address] [place] [address] Chris Owens MD [address] [facility] [address] [place] [address] documented as of this encounter Visit Diagnoses Not on filedocumented in this encounter Care Teams Medical Scheduler Relationship Specialty Start Date End Date Dominic Fernando MD [address] [place] [address] PCP - General Internal Medicine 11/15/17 01/05/20 documented as of this encounter
--- OUTSIDE RECORDS SUMMARY | 2024-09-04 18:14 | XMS_ITS | Encounter Summary ---
Author Organization [facility] Address [address] [place] [address] Care Team Providers Care Risk Management Professional Name Role Phone Dominic Fernando MD Primary Care Provider + Encounter Details Date Type Department Care Team (Late Contact Info) Description 06/02/2018 Orders Only [facility] Oncology and Hematology [facility] [address] [place] [address] Tiffany Gonzales RN Hypercoagulable state [...] Office Visit [facility] Oncology [facility] [address] [place] [address] Chris Owens MD [address] [facility] [address] [place] [address] documented as of this encounter Procedures Procedure Name Priority Date/Time Associated Diagnosis Comments LUPUS ANTICOAGULANT W/REFLEX CONFIRMATION Routine 06/02/2018 Hypercoagulable state documented in this encounter Results * LUPUS ANTICOAGULANT W/REFLEX CONFIRMATION (06/02/2018) Blood Chris Owens MD HEMATOLOGY ORDERABLE S EXTERNAL LAB documented in this encounter Visit Diagnoses Diagnosis Hypercoagulable state Primary hypercoagulable state documented in this encounter Care Teams Risk Management Professional Relationship Specialty Start Date End Date Dominic Fernando MD [address] [place] [address] PCP - General Internal Medicine 11/15/17 01/05/20 documented as of this encounter
--- OUTSIDE RECORDS SUMMARY | 2024-09-04 18:14 | XMS_ITS | Encounter Summary ---
Author Organization [facility] Address [address] [place] [address] Care Team Providers Care Traverse Rod Assembler Name Role Phone Dominic Fernando MD Primary Care Provider + Encounter Details Date Type Department Care Team (Late Contact Info) Description 05/28/2018 Orders Only [facility] Oncology and Hematology [facility] [address] [place] [address] Chris Owens MD [address] [place], [place] [address] [address] [place] [address] Hypercoagulable state (Primary Dx) Social History [...] Visit [facility] Oncology and Hematology [facility] [address] [place] [address] Chris Owens MD [facility] [address] [place] [address] documented as of this encounter Results * LUPUS ANTICOAGULANT W/REFLEX CONFIRMATION (06/02/2018) Blood Chris Owens MD HEMATOLOGY ORDERABLE S EXTERNAL LAB documented in this encounter Visit Diagnoses Diagnosis Hypercoagulable state- Primary Primary hypercoagulable state documented in this encounter Care Teams Traverse Rod Assembler Relationship Specialty Start Date End Date Dominic Fernando MD [address] [place] [address] PCP - General Internal Medicine 11/15/17 01/05/20 documented as of this encounter"
--- OUTSIDE RECORDS SUMMARY | 2024-09-04 18:14 | XMS_ITS | Encounter Summary ---
Author Organization [facility] Address [address] [place] [address] Care Team Providers Care Nursing Program Director Name Role Phone Dominic Fernando MD Primary Care Provider + Encounter Details Date Type Department Care Team (Late Contact Info) Description 05/27/2018 Orders Only [facility] Oncology and [facility] [address] [facility] [address] [place] [address] Tiffany Gonzales RN Atherosclerosis ; [...] Office Visit [facility] Oncology and [facility] [address] [place] [address] Chris Owens MD [address] [facility] [address] [place] [address] documented as of this encounter Procedures Procedure Name Priority Date/Time Associated Diagnosis Comments HOMOCYSTEINE Routine 06/02/2018 Atherosclerosis Secondary hypercoagulable state documented in this encounter Results * HOMOCYSTEINE (06/02/2018) Blood Chris Owens MD CHEMISTRY ORDERABLES EXTERNAL LAB documented in this encounter Visit Diagnoses Diagnosis Atherosclerosis Generalized and unspecified atherosclerosis Secondary hypercoagulable state documented in this encounter Care Teams Nursing Program Director Relationship Specialty Start Date End Date Dominic Fernando MD [address] [place] [address] PCP - General Internal Medicine 11/15/17 01/05/20 documented as of this encounter
--- OUTSIDE RECORDS SUMMARY | 2024-09-04 18:14 | XMS_ITS | Encounter Summary ---
Author Organization [facility] Address [address] [place] [address] Care Team Providers Care Fleet Manager/Dispatch Name Role Phone Dominic Fernando MD Primary Care Provider + Reason for Visit * Reason Onset Date Comments Knee Swelling 06/25/2018 Encounter Details Date Type Department Care Team (Late st Contact Info) Description 06/25/2018 Telephone [facility] Oncology and Hematology - [place] [address] [facility] [address] [place] [address] Chris Owens MD [address] [facility] [address] [place] [address] Knee Swelling Social History Tobacco [...] [facility] Oncology and Hematology - [place] [address] [facility] [address] [place] [address] Chris Owens MD [address] [facility] [address] [place] [address] documented as of this encounter Visit Diagnoses Not on filedocumented in this encounter Care Teams Fleet Manager/Dispatch Relationship Specialty Start Date End Date Dominic Fernando MD [address] [place] [address] PCP - General Internal Medicine 11/15/17 01/05/20 documented as of this encounter
--- OUTSIDE RECORDS SUMMARY | 2024-09-04 18:14 | XMS_ITS | Encounter Summary ---
Author Organization [facility] Address [address] [place] [address] Care Team Providers Care Material Handling Warehouse Supervisor Name Role Phone Dominic Fernando MD Primary Care Provider + Encounter Details Date Type Department Care Team (Late st Contact Info) Description 06/09/2018 Orders Only [facility] Oncology and Hematology [facility] [address] [place] [address] Tiffany Gonzales RN Social History [...] Description 12/04/2024 11:30 AM CDT Office Visit [facility] Oncology and [facility] [address] [place] [address] Chris Owens MD [address] [facility] [address] [place] [address] documented as of this encounter Visit Diagnoses Not on filedocumented in this encounter Care Teams Material Handling Warehouse Supervisor Relationship Specialty Start Date End Date Dominic Fernando MD [address] [place] [address] PCP - General Internal Medicine 11/15/17 01/05/20 documented as of this encounter
--- OUTSIDE RECORDS SUMMARY | 2024-09-04 18:15 | XMS_ITS | Encounter Summary ---
Author Organization [facility] Address [address] [place] [address] Care Team Providers Care Nursery Laborer Name Role Phone Dominic Fernando MD Primary Care Provider + Reason for Visit * Reason Comments Follow Up Encounter Details Date Type Department Care Team (Late st Contact Info) Description 11/25/2017 9:15 AM CDT Office Visit [facility] Oncology and Hematology - [place] [address] [facility] [address] [place] [address] Chris Owens MD [address] [facility] [address] [place] [address] Secondary hypercoagulable state (Primary Dx); [...] Health) Oncology and Hematology - [place] [address] [facility] [address] [place] [address] Chris Owens MD [address] [facility] [address] [place] [address] Scheduled Orders Name Type Priority [...] state documented in this encounter Care Teams Nursery Laborer Relationship Specialty Start Date End Date Dominic Fernando MD [address] [place] [address] PCP - General Internal Medicine 11/15/17 01/05/20 documented as of this encounter
--- OUTSIDE RECORDS SUMMARY | 2024-09-04 18:15 | XMS_ITS | Clinical Summary ---
Author Organization [facility] Address [address] [place] [address] Care Team Providers Care Woods Overseer Name Role Phone Dominic Fernando MD Primary Care Provider [phone] Allergies Active Allergy Reactions Criticality Noted Date [...] mcg tablet Take 112 mcg by mouth before and after school daycare worker before breakfast. 07/21/2018 Active XARELTO 20 mg [...] (09/24/2018): Added automatically from request for surgery [id number] Surgical History Surgery Date Site/Laterality Comments CHOLECYSTECTOMY [...] on file Legal Sex Female 11:26 PM VAT OPERATOR Gender Identity Not on file Sexual Orientation Not on file Obstetrics History Last Filed Vital Signs Vital Sign Reading Time Taken Comments Blood Pressure 98/64 10/02/2019 8:21 AM VAT OPERATOR Pulse 55 10/02/2019 8:21 AM VAT OPERATOR Temperature 37.1 ??C (98.8 ??F) 11/24/2018 12:06 PM C DT Respiratory Rate 16 11/24/2018 12:06 PM CDT Oxygen Saturation 98% 11/24/2018 12:06 PM CDT Inhaled Oxygen Concentration - - Weight 80.4 kg (177 lb 3.2 oz) 10/02/2019 8:21 A M VAT OPERATOR Height 165.1 cm (5' 5 ) 10/02/2019 8:21 AM VAT OPERATOR Body Mass Index 29.49 10/02/2019 8:21 AM VAT OPERATOR Plan of Treatment Not on file Medical Devices Implanted Type Area Type Photography Supervisor Device Identifier Shelf Expiration Date Model / Serial / Lot [employer]hew[employer]/Or tho [id number] Legion 9mm Dished Knee 3-4 Insert Tibial Xlpe - [id number] Implanted:Qty: 1 on 11/11/2018 by Kemal Wright MD at [facility] Right: Knee [employer]Or [employer] 08/11/2028 [id number] / / [id number] [employer]Or tho [id number] 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 Taper Knee Right 4 Baseplate Tibial Titanium - [id number] Implanted:Qty: 1 on 11/11/2018 by Kemal Wright MD at [facility] Right: Knee [employer]Or tho 07/18/2028 [id number] / / [id number] Size 4 Right Cruciate Retaining Legion Oxinium Femoral Componenet Implanted:Qty: 1 on 11/11/2018 by Kemal Wright MD at [facility] Right: Knee [employer]hew [id number] 01/06/2028 [id number] / / [id number] [employer] [id number] Palacos R+G High Viscosity Cement Bone Gentamicin Arthroplasty - [id number] Implanted:Qty: 1 on 11/11/2018 by Kemal Wright MD at [facility] Right: Knee [employer] 04/15/2021 [id number] / / [id number] Insurance MEDICARE [facility] MEDICARE [facility] Address: [address] [address] [facility] Advance Directives For more information, please contact: [phone] * Full Code (Latest Code Status on File) Date Activated Date Inactivated Comments 11/14/2018 1:26 PM 11/15/2018 7:15 PM * Full Code Date Activated Date Inactivated Comments 11/13/2018 10:00 AM 11/14/2018 1:16 PM per patient request * Full Code Date Activated Date Inactivated Comments 11/11/2018 7:40 PM 11/12/2018 8:26 PM Care Teams Woods Overseer Relationship Specialty Start Date End Date Dominic Fernando MD [address] [facility] [address] [facility] [address] [place] [address] PCP - General 08/13/17
--- OUTSIDE RECORDS SUMMARY | 2024-09-04 18:15 | XMS_ITS | Encounter Summary ---
Author Organization [facility] Address [address] [place] [address] Care Team Providers Care Porcelain Enamel Laborer Name Role Phone Dominic Fernando MD Primary Care Provider + Reason for Visit * Reason Onset Date Comments recent CVA 03/13/2018 Encounter Details Date Type Department Care Team (Late Contact Info) Description 03/13/2018 Telephone [facility] Oncology and Hematology - [place] [address] [facility] [address] [place] [address] Chris Owens MD [address] [facility] [address] [place] [address] recent CVA Social History Tobacco [...] [facility] Oncology and Hematology - [place] [address] [facility] [address] [place] [address] Chris Owens MD [address] [facility] [address] [place] [address] documented as of this encounter Visit Diagnoses Not on filedocumented in this encounter Care Teams Porcelain Enamel Laborer Relationship Specialty Start Date End Date Dominic Fernando MD [address] [place] [address] PCP - General Internal Medicine 11/15/17 01/05/20 documented as of this encounter
--- OUTSIDE RECORDS SUMMARY | 2024-09-04 18:15 | XMS_ITS | Encounter Summary ---
Author Organization [facility] Care Team Providers Care Retail Sales Advisor Name Role Phone Dominic Fernando MD Primary Care Provider [phone] Encounter Details Date Type Department Care Team [...] on file Legal Sex Female 11:26 PM DISPATCHER CLERK Gender Identity Not on file Sexual Orientation Not on file documented as of this encounter Plan of Treatment Not on file documented as of this encounter Visit Diagnoses Not on filedocumented in this encounter Care Teams Retail Sales Advisor Relationship Specialty Start Date End Date Dominic Fernando MD [address] [facility] [address] [place] [address] PCP - General 08/13/17 documented as of this encounter
--- OUTSIDE RECORDS SUMMARY | 2024-09-04 18:15 | XMS_ITS | Encounter Summary ---
Author Organization [facility] Address [address] [facility] [address] [place] [address] Care Team Providers Care Billboard Erector Helper Name Role Phone Dominic Fernando MD Primary Care Provider Reason for Referral * Diagnostic Imaging (Routine) - Closed Specialty Diagnoses / Procedures Referred By Contac t Referred To Contact Diagnoses History of total knee arthroplasty, right Procedures XR Knee Right 3 Views Juanita Mckay PA Phone: tel: fax: Referral ID Status Reason Start Date Expiration Date Visits Re quested Visits Authorized [id number] Closed 10/02/2019 04/12/2021 1 1 UTATIONAL SCIENCES PROFESSOR Reason for Visit * Reason Comments Follow-up Encounter Details Date Type Department Care Team (Late st Contact Info) Description 10/02/2019 8:30 AM COMPUTATIONAL SCIENCES PROFESSOR Office Visit [facility] Orthopedics and Sports Medicine [address] [facility] [address] [place] [address] Juanita Mckay PA [address] [place] [address] [address] [place] [address] Other specified aftercare following surgery (Primary Dx); [...] on file Legal Sex Female 11:26 PM COMPUTATIONAL SCIENCES PROFESSOR Gender Identity Not on file Sexual Orientation Not on file documented as of this encounter Last Filed Vital Signs Vital Sign Reading Time Taken Comments Blood Pressure 98/64 10/02/2019 8:21 AM COMPUTATIONAL SCIENCES PROFESSOR Pulse 55 10/02/2019 8:21 AM COMPUTATIONAL SCIENCES PROFESSOR Temperature - - Respiratory Rate - - Oxygen Saturation - - Inhaled Oxygen Concentration - - Weight 80.4 kg (177 lb 3.2 oz) 10/02/2019 8:21 A M COMPUTATIONAL SCIENCES PROFESSOR Height 165.1 cm (5' 5 ) 10/02/2019 8:21 AM COMPUTATIONAL SCIENCES PROFESSOR Body Mass Index 29.49 10/02/2019 8:21 AM COMPUTATIONAL SCIENCES PROFESSOR documented in this encounter Progress Notes * [...] patient expressed understanding of plan. ELIZABETH Ray UTATIONAL SCIENCES PROFESSOR documented in this encounter Plan of Treatment Not on file documented as of this encounter Procedures Procedure Name Priority Date/Time Associated Diagnosis Comments XR KNEE RIGHT 3 VIEWS Schedule Routine, Read Routine (OP Routine) 10/02/2019 9:06 AM COMPUTATIONAL SCIENCES PROFESSOR History of total knee arthroplasty, right documented in this encounter Results * XR Knee Right 3 Views (10/02/2019 9:06 AM COMPUTATIONAL SCIENCES PROFESSOR) Anatomical Region Laterality Modality Lower Extremities, Knee Right Digital Radiography Narrative 10/02/2019 9:06 AM COMPUTATIONAL SCIENCES PROFESSOR X-rays of the right knee are reviewed [...] 09/22/2019 added in this encounter Care Teams Billboard Erector Helper Relationship Specialty Start Date End Date Dominic Fernando MD [address] [place] [address] [place] [address] PCP - General 08/13/17 documented as of this encounter
--- OUTSIDE RECORDS SUMMARY | 2024-09-04 18:15 | XMS_ITS | Continuity of Care Document ---
Author Organization [facility] Address [address] [facility] [address] [place] [address] Phone Care Team Providers Care Supervisor Natural Gas Plant Name Role Phone Unavailable Unavailable Unavailable Advance Directives Directive Yes / No Effective Date File Name No Information Encounters Encounter Description Practice Location Reason(s) For Visit Diagnoses Date Provider Providers Copied on Encounter Located within [facility], [address], [place], [place], [id number], [place] tel:[phone] [facility] No Information Mar-1 6-200 0 No Information [...]
--- OUTSIDE RECORDS SUMMARY | 2024-09-04 18:15 | XMS_ITS | Referral Summary ---
Author Organization [facility] Address [address] [place] [address] Care Team Providers Care Coremaking Machine Operator Name Role Phone Dominic Fernando MD Primary Care Provider [phone] Allergies Active Allergy Reactions Criticality Noted Date [...] Take 112 mcg by mouth early childhood teacher assistant before breakfast. 07/21/2018 Active XARELTO 20 mg [...] (09/24/2018): Added automatically from request for surgery [id number] Social History Tobacco Use Types Packs/Day Years Used Date Smoking Tobacco: Every Day Cigarettes Smokeless Tobacco: Current Comments:quitting now, 1 pac k last 2-3 days Alcohol Use Standard Drinks/Week Comments No 0 (1 standard drink = 0.6 oz pur e alcohol) Comments No Sex and Gender Information Value Date Recorded Sex Assigned at Not on file Legal Sex Female 11:26 PM MANAGER POWER Gender Identity Not on file Sexual Orientation Not on file Last Filed Vital Signs Vital Sign Reading Time Taken Comments Blood Pressure 98/64 10/02/2019 8:21 AM MANAGER POWER Pulse 55 10/02/2019 8:21 AM MANAGER POWER Temperature 37.1 ??C (98.8 ??F) 11/24/2018 12:06 PM C DT Respiratory Rate 16 11/24/2018 12:06 PM CDT Oxygen Saturation 98% 11/24/2018 12:06 PM CDT Inhaled Oxygen Concentration - - Weight 80.4 kg (177 lb 3.2 oz) 10/02/2019 8:21 A M MANAGER POWER Height 165.1 cm (5' 5 ) 10/02/2019 8:21 AM MANAGER POWER Body Mass Index 29.49 10/02/2019 8:21 AM MANAGER POWER Plan of Treatment Not on file Medical Devices Implanted Type Area Executive Talent Acquisition Consultant Device Identifier Shelf Expiration Date Model / Serial / Lot [employer]Or tho [id number] Legion 9mm Dished Knee 3-4 Insert Tibial Xlpe - [id number] Implanted:Qty: 1 on 11/11/2018 by Kemal Wright MD at [facility] Right: Knee [employer]Or tho 08/11/2028 [id number] / / [id number] [employer]Or tho [id number] 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 Taper Knee Right 4 Baseplate Tibial Titanium - [id number] Implanted:Qty: 1 on 11/11/2018 by Kemal Wright MD at [facility] Right: Knee [employer]Or tho 07/18/2028 [id number] / / [id number] Size 4 Right Cruciate Retaining Legion Oxinium Femoral Componenet Implanted:Qty: 1 on 11/11/2018 by Kemal Wright MD at [facility] Right: Knee [employer]hew [id number] 01/06/2028 [id number] / / [id number] [employer] [id number] Palacos R+G High Viscosity Cement Bone Gentamicin Arthroplasty - [id number] Implanted:Qty: 1 on 11/11/2018 by Kemal Wright MD at [facility] Right: Knee [employer] 04/15/2021 [id number] / / [id number] Insurance MEDICARE [place] MEDICARE [facility] Address: [address] [address] [place] [address] [place] Advance Directives For more information, please contact: [phone] * Full Code (Latest Code Status on File) Date Activated Date Inactivated Comments 11/14/2018 1:26 PM 11/15/2018 7:15 PM * Full Code Date Activated Date Inactivated Comments 11/13/2018 10:00 AM 11/14/2018 1:16 PM per patient request * Full Code Date Activated Date Inactivated Comments 11/11/2018 7:40 PM 11/12/2018 8:26 PM Care Teams Coremaking Machine Operator Relationship Specialty Start Date End Date Dominic Fernando MD [address] [place] [address] [place] [address] PCP - General 08/13/17
--- OUTSIDE RECORDS SUMMARY | 2024-09-04 18:15 | XMS_ITS | Encounter Summary ---
Author Organization [facility] Address [address] [place] [address] Care Team Providers Care Court Administrator Name Role Phone Dominic Fernando MD Primary Care Provider + Reason for Visit * Reason Comments Establish Care Encounter Details Date Type Department Care Team (Late st Contact Info) Description 11/15/2017 9:30 AM SOCIAL SERVICE TECHNICIAN Office Visit [facility] Oncology and Hematology - Aroldo [address] [facility] [address] [place] [address] Chris Owens MD [address] [facility] [address] [place] [address] Primary hypercoagulable state (Primary Dx); [...] Comments Blood Pressure 154/79 11/15/2017 9:36 AM SOCIAL SERVICE TECHNICIAN Pulse 77 11/15/2017 9:36 AM SOCIAL SERVICE TECHNICIAN Temperature 37 ??C (98.6 ??F) 11/15/2017 9:36 AM SOCIAL SERVICE TECHNICIAN Respiratory Rate 18 11/15/2017 9:36 AM SOCIAL SERVICE TECHNICIAN Oxygen Saturation 97% 11/15/2017 9:36 AM SOCIAL SERVICE TECHNICIAN Inhaled Oxygen Concentration - - Weight 86.4 kg (190 lb 6.4 oz) 11/15/2017 9:36 A M SOCIAL SERVICE TECHNICIAN Height 162.6 cm (5' 4 ) 11/15/2017 9:36 AM SOCIAL SERVICE TECHNICIAN Body Mass Index 32.68 11/15/2017 9:36 AM SOCIAL SERVICE TECHNICIAN documented in this encounter Progress Notes * [...] tablet Take 125 mcg by mouth daily director of early childhood education. ??? naproxen (NAPROSYN) 500 mg tablet Take [...] dysuria; no frequency; no hesitancy; no hematuria OCEAN FREIGHT FORWARDER: Musculosketetal: no bone pain; no arthralgia; no [...] of the total time spent counseling patient [id number]. CC:Dominic Fernando MD Paul Scherer M.D.? AL SERVICE TECHNICIAN documented in this encounter Plan of Treatment Upcoming Encounters Date Type Department Care Team (Late st Contact Info) Description 12/04/2024 11:30 AM CDT Office Visit [facility] Oncology and Hematology - Aroldo [address] [facility] [address] [place] [address] Chris Owens MD [address] [facility] [address] [place] [address] documented as of this encounter [...] MD HEMATOLOGY ORDERABLE S Performing Organization Address [facility] Co de Phone Number EXTERNAL LAB * ANTITHROMBIN III ACTIVITY (11/21/2017) Blood Chris Owens MD HEMATOLOGY ORDERABLE S Performing Organization Address [facility] Co de Phone Number EXTERNAL LAB * (ABNORMAL) LUPUS ANTICOAGULANT W/REFLEX CONFIRMATION (11/19/2017) Blood Chris Owens MD HEMATOLOGY ORDERABLE S Performing Organization Address [facility] Co de Phone Number EXTERNAL LAB * CARDIOLIPIN IGG/IGM (11/19/2017) Blood Chris Owens MD CHEMISTRY ORDERABLES Performing Organization Address [facility] Co de Phone Number EXTERNAL LAB * (ABNORMAL) HOMOCYSTEINE (11/18/2017) Blood Chris Ownes MD CHEMISTRY ORDERABLES Performing Organization Address [facility] Co de Phone Number EXTERNAL LAB * PROTEIN C & S ACTIVITY (11/18/2017) Blood Chris Owens MD CHEMISTRY ORDERABLES Performing Organization Address [facility] Co de Phone Number EXTERNAL LAB * BETA 2 GLYCOPROTEIN I ANTIBODIES (11/18/2017) Blood Chris Owens MD CHEMISTRY ORDERABLES Performing Organization Address [facility] Co de Phone Number EXTERNAL LAB documented in this encounter Visit Diagnoses Diagnosis Primary hypercoagulable state- Primary Secondary hypercoagulable state Tobacco use Tobacco use disorder Atherosclerosis Generalized and unspecified atherosclerosis documented in this encounter Care Teams Court Administrator Relationship Specialty Start Date End Date Dominic Fernando MD [address] [place] [address] PCP - General Internal Medicine 11/15/17 01/05/20 documented as of this encounter
--- OUTSIDE RECORDS SUMMARY | 2024-09-04 18:15 | XMS_ITS | Encounter Summary ---
Author Organization [facility] Address [address] [place] [address] Care Team Providers Care Truck Washer Name Role Phone Dominic Fernnado MD Primary Care Provider + Encounter Details Date Type Department Care Team (Late Contact Info) Description 11/29/2017 Orders Only [facility] Oncology and Hematology [facility] [address] [place] [address] Chris Owens MD [facility] [address] [place] [address] Secondary hypercoagulable state; Primary hypercoagulable state [...] [facility] Oncology and Hematology [address] [place] [address] Chris Owens MD [address] [place] [address] documented as of this encounter Visit Diagnoses Diagnosis Secondary hypercoagulable state Primary hypercoagulable state documented in this encounter Care Teams Truck Washer Relationship Specialty Start Date End Date Dominic Fernando MD [address] [place] [address] PCP - General Internal Medicine 11/15/17 01/05/20 documented as of this encounter
--- OUTSIDE RECORDS SUMMARY | 2024-09-04 18:16 | XMS_ITS | Encounter Summary ---
Author Organization [facility] Address [address] [facility] [address] [place] [address] Care Team Providers Care End User Support Specialist Name Role Phone Dominic Fernando MD Primary Care Provider [phone] Encounter Details Date Type Department Care Team (Late st Contact Info) Description 02/06/2019 Orders Only [facility] Orthopedics and Sports Medicine 4 [facility] [address] [place] [phone] Juanita Mckay PA 4 [facility] [address] [place] [address] Aftercare following right knee joint replacement surgery [...] on file Legal Sex Female 11:26 PM TAMALE MACHINE FEEDER Gender Identity Not on file Sexual Orientation Not on file documented as of this encounter Plan of Treatment Not on file documented as of this encounter Visit Diagnoses Diagnosis Aftercare following right knee joint replacement surgery- Primary documented in this encounter Care Teams End User Support Specialist Relationship Specialty Start Date End Date Dominic Fernando MD [address] [facility] [address] [place], [place] [id number] PCP - General 08/13/17 documented as of this encounter
--- OUTSIDE RECORDS SUMMARY | 2024-09-04 18:16 | XMS_ITS | Encounter Summary ---
Author Organization [facility] Address [address] [facility] [address] [place] [address] Care Team Providers Care Porcelain Turner Name Role Phone Dominic Fernando MD Primary Care Provider [phone] Reason for Visit * Diagnostic Imaging (Routine) - Closed Specialty Diagnoses / Procedures Referred By Contac t Referred To Contact Diagnoses Aftercare following right knee joint replacement surgery Procedures XR Knee Right 1 or 2 Views Kemal Wright MD Phone: tel: fax: Referral ID Status Reason Start Date Expiration Date Visits Re quested Visits Authorized [id number] Closed 04/01/2019 10/10/2020 1 1 Encounter Details Date Type Department Care Team (Latest Contact Info) Description 04/01/2019 10:42 AM CDT - 04/01/2019 11:59 PM CDT Hospital Encounter [facility] Orthopedics and Sports Medicine [address] [place] [phone] Discharge Disposition: Discharge to home or self [...] on file Legal Sex Female 11:26 PM COFFEE SOMMELIER Gender Identity Not on file Sexual Orientation [...] mcg tablet Take 112 mcg by mouth hardwood finisher before breakfast. [address] (PROTONIX) 20 [...] filedocumented in this encounter Care Teams Porcelain Turner Relationship Specialty Start Date End Date Dominic Fernando MD [address] [facility] [address] [place] [id number] PCP - General 08/13/17 documented as of this encounter
--- OUTSIDE RECORDS SUMMARY | 2024-09-04 18:16 | XMS_ITS | Encounter Summary ---
Author Organization [facility] Medical [facility] Address [address] [facility] [address] [place] [address] Care Team Providers Care Medical Registrar Name Role Phone Dominic Fernando MD Primary Care Provider [phone] Reason for Visit * Reason Onset Date Comments PT ? 02/06/2019 Encounter Details Date Type Department Care Team (Late st Contact Info) Description 02/06/2019 Telephone [facility] Orthopedics and Sports Medicine [address] [facility] [address] [place] [address] Kemal Wright MD [address] [place] [address] [address] [place] [address] PT ? Social History Tobacco [...] on file Legal Sex Female 11:26 PM PARKING LOT LABORER Gender Identity Not on file Sexual Orientation [...] filedocumented in this encounter Care Teams Medical Registrar Relationship Specialty Start Date End Date Dominic Fernando MD [address] [facility] [address] [place] [address] PCP - General 08/13/17 documented as of this encounter
--- OUTSIDE RECORDS SUMMARY | 2024-09-04 18:16 | XMS_ITS | Encounter Summary ---
Author Organization [facility] Facility Care Team Providers Care Motor Vehicle Technician Name Role Phone Dominic Fernando MD Primary Care Provider [phone] Encounter Details Date Type Department Care Team [...] on file Legal Sex Female 11:26 PM INSPECTING AND TESTING LEAD HAND Gender Identity Not on file Sexual Orientation Not on file documented as of this encounter Plan of Treatment Not on file documented as of this encounter Visit Diagnoses Not on filedocumented in this encounter Care Teams Motor Vehicle Technician Relationship Specialty Start Date End Date Dominic Fernando MD [address] [facility] [address] [place] [address] PCP - General 08/13/17 documented as of this encounter
--- OUTSIDE RECORDS SUMMARY | 2024-09-04 18:16 | XMS_ITS | Encounter Summary ---
Author Organization [facility] Address [address] [facility] [address] [place] [address] Care Team Providers Care Router Operator Radial Name Role Phone Dominic Fernando MD Primary Care Provider [phone] Reason for Referral * Diagnostic Imaging (Routine) - Closed Specialty Diagnoses / Procedures Referred By Contac t Referred To Contact Diagnoses Aftercare following right knee joint replacement surgery Procedures XR Knee Right 1 or 2 Views Kemal Wright MD Phone: tel: fax: Referral ID Status Reason Start Date Expiration Date Visits Re quested Visits Authorized [id number] Closed 04/01/2019 10/10/2020 1 1 Reason for Visit * Reason Comments Follow-up Encounter Details Date Type Department Care Team (Late st Contact Info) Description 04/01/2019 11:00 AM CDT Office Visit [facility] Orthopedics and Sports Medicine [address] [place] [phone] Kemal Wright MD [address] [place] [address] [address] [address] Weakness of right lower extremity (Primary Dx); [...] on file Legal Sex Female 11:26 PM HIM ASSISTANT Gender Identity Not on file Sexual [...] November 11, 2018 right total knee arthroplasty. Colorectal Surgeon completed by using M*Modal Fluency Direct speaking software, therefore, transcriptionvariances may occur. Pain Assessment Pain Assessment: 0-10 Pain Score: 5 - Moderate pain PAST MEDCIAL HISTORY She has a past medical history of Cervical cancer ([facility]), Emphysema of lung ([facility]), GERD (gastroesophageal reflux disease), H/O: hysterectomy, Hiatal hernia, History of blood clots, Hyperlipidemia, Hypothyroidism, Poor circulation, Stroke ([facility]), and Thyroid disease. She also has no [...] surgery documented in this encounter Care Teams Router Operator Radial Relationship Specialty Start Date End Date Dominic Fernando MD [address] [facility] [address] [place] [address] PCP - General 08/13/17 documented as of this encounter
--- OUTSIDE RECORDS SUMMARY | 2024-09-04 18:16 | XMS_ITS | Encounter Summary ---
Author Organization [facility] Facility Care Team Providers Care Laser Beam Machine Operator Name Role Phone Dominic Fernando MD Primary Care Provider [phone] Encounter Details Date Type Department Care Team [...] on file Legal Sex Female 11:26 PM SHIRRING TENDER Gender Identity Not on file Sexual Orientation Not on file documented as of this encounter Plan of Treatment Not on file documented as of this encounter Visit Diagnoses Not on filedocumented in this encounter Care Teams Laser Beam Machine Operator Relationship Specialty Start Date End Date Dominic Fernando MD [address] [facility] [address] [place] [address] PCP - General 08/13/17 documented as of this encounter
--- OUTSIDE RECORDS SUMMARY | 2024-09-04 18:17 | XMS_ITS | Encounter Summary ---
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
--- OUTSIDE RECORDS SUMMARY | 2024-09-04 18:17 | XMS_ITS | Encounter Summary ---
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
--- OUTSIDE RECORDS SUMMARY | 2024-09-04 18:17 | XMS_ITS | Encounter Summary ---
Author Organization [facility] Medical [facility] Address [address] [facility] [address] [place] [address] Care Team Providers Care Php Programmer Name Role Phone Dominic Fernando MD Primary Care Provider [phone] Reason for Visit * Diagnostic Imaging (Routine) - Closed Specialty Diagnoses / Procedures Referred By Evan t Referred To Contact Diagnoses Unspecified orthopedic aftercare Procedures XR Knee Right 1 or 2 Views Juanita Mckay PA Phone: tel: fax: Referral ID Status Reason Start Date Expiration Date Visits Re quested Visits Authorized [id number] Closed 02/04/2019 08/15/2020 1 1 Encounter Details Date Type Department Care Team (Latest Contact Info) Description 02/04/2019 8:00 AM CDT - 02/04/2019 11:59 PM CDT Hospital Encounter [facility] Orthopedics and Sports Medicine [address] [facility] [address] [place] [phone] Discharge Disposition: Discharge to home or self [...] on file Legal Sex Female 11:26 PM MANAGEMENT LIAISON Gender Identity Not on file Sexual Orientation [...] mcg tablet Take 112 mcg by mouth gauge maker before breakfast. [address] (PROTONIX) 20 [...] on filedocumented in this encounter Care Teams Php Programmer Relationship Specialty Start Date End Date Dominic Fernando MD [address] [facility] [address] [place] [address] PCP - General 08/13/17 documented as of this encounter
--- OUTSIDE RECORDS SUMMARY | 2024-09-04 18:17 | XMS_ITS | Encounter Summary ---
Author Organization [facility] Address [address] [facility] [address] [place] [address] Care Team Providers Care Infant Caregiver Name Role Phone Dominic Fernando MD Primary Care Provider [phone] Reason for Referral * Diagnostic Imaging (Routine) - Closed Specialty Diagnoses / Procedures Referred By Evan t Referred To Contact Diagnoses Unspecified orthopedic aftercare Procedures XR Knee Right 1 or 2 Views Juanita Mckay PA Phone: tel: fax: Referral ID Status Reason Start Date Expiration Date Visits Re quested Visits Authorized [id number] Closed 02/04/2019 08/15/2020 1 1 Reason for Visit * Reason Comments Post-op s/p RTKA DOS 11/11/18 Post-op Encounter Details Date Type Department Care Team (Late st Contact Info) Description 02/04/2019 10:00 AM CDT Office Visit [facility] Orthopedics and Sports Medicine 4 [facility] [address] [place] [phone] Juanita Mckay PA [address] [place] [address] [address] [place] [address] Aftercare following right knee joint replacement surgery [...] on file 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 She notes that the knee gives out [...] mouth added in this encounter Care Teams Infant Caregiver Relationship Specialty Start Date End Date Dominic Fernando MD [address] [facility] [address] [place] [address] PCP - General 08/13/17 documented as of this encounter
--- OUTSIDE RECORDS SUMMARY | 2024-09-04 18:17 | XMS_ITS | Encounter Summary ---
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 She is wanting a call at [phone]. * Telephone Encounter - Shruti Mooney MA [...] filedocumented in this encounter Care Teams It Field Technician Relationship Specialty Start Date End Date Dominic Fernando MD [address] [place] [address] [place] [address] PCP - General 08/13/17 documented as of this encounter
--- OUTSIDE RECORDS SUMMARY | 2024-09-04 18:17 | XMS_ITS | Encounter Summary ---
Author Organization [facility] Address [address] [facility] [address] [place] [address] Care Team Providers Care Manufacturing Recruiter Name Role Phone Dominic Fernando MD Primary Care Provider Reason for Visit * Reason Onset Date Comments medical ? 12/25/2018 Encounter Details Date Type Department Care Team (Late st Contact Info) Description 12/25/2018 Telephone [facility] Orthopedics and Sports Medicine [address] [facility] [address] [place] [address] Kemal Wright MD [address] [place] [address] [address] [place] [address] medical ? Social History Tobacco [...] would like a call from Juanita at [phone]. documented in this encounter Plan of Treatment Not on file documented as of this encounter Visit Diagnoses Not on filedocumented in this encounter Care Teams Manufacturing Recruiter Relationship Specialty Start Date End Date Dominic Fernando MD [address] [facility] [address] [place] [address] PCP - General 08/13/17 documented as of this encounter
--- OUTSIDE RECORDS SUMMARY | 2024-09-04 18:18 | XMS_ITS | Encounter Summary ---
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
--- OUTSIDE RECORDS SUMMARY | 2024-09-04 18:18 | XMS_ITS | Encounter Summary ---
Author Organization [facility] Address [address] [facility] [address] [place] [address] Care Team Providers Care Learning Designer Name Role Phone Dominic Fernando MD Primary Care Provider [phone] Reason for Referral * Diagnostic Imaging (Routine) - Canceled Specialty Diagnoses / Procedures Referred By Evan t Referred To Contact Diagnoses Aftercare following right knee joint replacement surgery Procedures XR Knee Right 1 or 2 Views XR Knee Left 1 or 2 Views Juanita Mckay PA Phone: tel: fax: Referral ID Status Reason Start Date Expiration Date V isits Requested Visits Authorized [id number] Canceled 12/24/2018 07/04/2020 1 1 Reason for Visit * Reason Comments Post-op Encounter Details Date Type Department Care Team (Late st Contact Info) Description 12/24/2018 10:30 AM CDT Office Visit 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
--- OUTSIDE RECORDS SUMMARY | 2024-09-04 18:18 | XMS_ITS | Encounter Summary ---
Author Organization [facility] Healthcare Address [address] [place] [address] Care Team Providers Care Pocket Secretary Assembler Name Role Phone Dominic Fernando MD Primary Care Provider [phone] Encounter Details Date Type Department Care Team (Late st Contact Info) Description 12/09/2018 Telephone [facility] 2 [facility] Geoffrey Charles [address] [place] [address] Mahesh Riggs MD [address] [place] [address] [address] [place] [address] Social History Tobacco Use Types Packs/Day Years Used Date Smoking Tobacco: Every Day Cigarettes Smokeless Tobacco: Current Comments:quitting now, 1 pac k last 2-3 days Alcohol Use Standard Drinks/Week Comments No 0 (1 standard drink = 0.6 oz pur e alcohol) Comments No Sex and Gender Information Value Date Recorded Sex Assigned at Not on file 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 [address] [facility] [address]INE [place], [place] [id number] PCP - General 08/13/17 documented as of this encounter
--- OUTSIDE RECORDS SUMMARY | 2024-09-04 18:19 | XMS_ITS | Encounter Summary ---
Author Organization [facility] Medical [facility] Address [address] [facility] [address] [place] [address] Care Team Providers Care Bookstore Manager Name Role Phone Dominic Fernando MD Primary Care Provider Reason for Visit * Reason Comments Post-op Encounter Details Date Type Department Care Team (Late st Contact Info) Description 12/09/2018 10:15 AM CDT Office Visit [facility] Orthopedics and Sports Medicine [address] [facility] [address] [place] [address] Juanita Mckay PA [address] 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
--- OUTSIDE RECORDS SUMMARY | 2024-09-04 18:19 | XMS_ITS | Encounter Summary ---
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
--- OUTSIDE RECORDS SUMMARY | 2024-09-04 18:19 | XMS_ITS | Encounter Summary ---
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
--- OUTSIDE RECORDS SUMMARY | 2024-09-04 18:19 | XMS_ITS | Encounter Summary ---
Author Organization [facility] Address [address] [place] [address] Care Team Providers Care Quality Project Manager Name Role Phone Dominic Fernadno MD Primary Care Provider Reason for Referral * Diagnostic Imaging (Routine) - Closed Specialty Diagnoses / Procedures Referred By Contac t Referred To Contact Diagnoses Suspected DVT (deep vein thrombosis) Procedures US Vein Duplex Lower Extremity Right Limited Teodora Prieto PA Phone: tel: fax: [facility] Referral ID Status Reason Start Date Expiration Date Visits Re quested Visits Authorized [id number] Closed 12/01/2018 06/11/2020 1 1 Reason for Visit * Diagnostic Imaging (Routine) - Closed Specialty Diagnoses / Procedures Referred By Contac t Referred To Contact Diagnoses Suspected DVT (deep vein thrombosis) Procedures US Vein Duplex Lower Extremity Right Limited Teodora Prieto PA Phone: tel: fax: [facility] Medical [facility] Referral ID Status Reason Start Date Expiration Date Visits Re quested Visits Authorized [id number] Closed 12/01/2018 06/11/2020 1 1 Encounter Details Date Type Department Care Team (Late st Contact Info) Description 12/01/2018 2:35 PM CDT - 12/01/2018 11:59 PM CDT Hospital Encounter [facility] [address] [place] [address] Teodora Prieto PA [address] [place] [address] [address] [place] [address] Kemal Wright MD [address] [facility] [address] [place] [address] Suspected DVT (deep vein thrombosis) Discharge Disposition: [...] on file 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 [address] (PROTONIX) 20 [...] thrombosis) documented in this encounter Care Teams Quality Project Manager Relationship Specialty Start Date End Date Dominic Fernando MD [address] [facility] [address]INE [place] [phone] PCP - General 08/13/17 documented as of this encounter
--- OUTSIDE RECORDS SUMMARY | 2024-09-04 18:20 | XMS_ITS | Encounter Summary ---
Author Organization [facility] Address [address] [facility] [address] [place] [address] Care Team Providers Care Phonograph Mechanic Name Role Phone Dominic Fernando MD Primary Care Provider [phone] Reason for Visit * Reason Onset Date Comments Medical question 11/27/2018 Encounter Details Date Type Department Care Team (Late st Contact Info) Description 11/27/2018 Telephone [facility] Orthopedics and Sports Medicine [address] [facility] [address] [place] [address] Kemal Wright MD [address] [place] [address] [address] [place] [address] Medical question Social History Tobacco [...] on file 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 She would like a call at [phone].Thank you. documented in this encounter Plan of Treatment Not on file documented as of this encounter Visit Diagnoses Not on filedocumented in this encounter Care Teams Phonograph Mechanic Relationship Specialty Start Date End Date Dominic Fernando MD [address] [facility] [address] [place] [address] PCP - General 08/13/17 documented as of this encounter
--- OUTSIDE RECORDS SUMMARY | 2024-09-04 18:20 | XMS_ITS | Encounter Summary ---
Author Organization [facility] Medical Group Address [address] [facility] [address] [place] [address] Care Team Providers Care Sales Representative Printing Supplies Name Role Phone Dominic Fernando MD Primary Care Provider [phone] Encounter Details Date Type Department Care Team (Late st Contact Info) Description 11/28/2018 Orders Only [facility] Orthopedics and Sports Medicine [address] [facility] [address] [place] [address] Juanita Mckay PA [address] [place] [address] [address] [place] [address] Status post total knee replacement, unspecified laterality [...] on file Legal Sex Female 11:26 PM 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 [address] [facility] [address] [place] [address] PCP - General 08/13/17 documented as of this encounter
--- OUTSIDE RECORDS SUMMARY | 2024-09-04 18:20 | XMS_ITS | Encounter Summary ---
Author Organization [facility] Medical [facility] Address [address] [facility] [address] [place] [address] Care Team Providers Care Improvement Spec Name Role Phone Dominic Fernando MD Primary Care Provider [phone] Reason for Referral * Diagnostic Imaging (Routine) - Closed Specialty Diagnoses / Procedures Referred By Contac t Referred To Contact Diagnoses Suspected DVT (deep vein thrombosis) Procedures US Vein Duplex Lower Extremity Right Limited Teodora Prieto PA Phone: tel: fax: [facility] Medical [facility] Referral ID Status Reason Start Date Expiration Date Visits Re quested Visits Authorized [id number] Closed 12/01/2018 06/11/2020 1 1 Reason for Visit * Reason Comments Post-op Encounter Details Date Type Department Care Team (Late st Contact Info) Description 12/01/2018 1:45 PM CDT Office Visit [facility] Orthopedics and Sports Medicine [address] [facility] [address] [place] [address] Teodora Prieto PA [address] [place] [address] [address] [place] [address] Suspected DVT (deep vein thrombosis) (Primary Dx) [...] on file 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
--- OUTSIDE RECORDS SUMMARY | 2024-09-04 18:20 | XMS_ITS | Encounter Summary ---
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
--- OUTSIDE RECORDS SUMMARY | 2024-09-04 18:21 | XMS_ITS | Encounter Summary ---
Author Organization [facility] Address [address] [place] [address] Phone Care Team Providers Care Filler Sifter Machine Name Role Phone Dominic Fernando MD Primary Care Provider [phone] Reason for Visit * Reason Comments Weakness - Generalized * Auth/Cert Specialty Diagnoses / Procedures Referred By Contac t Referred To Contact Referral ID Status Reason Start Date Expiration Date Visits Re quested Visits Authorized [id number] 1 1 Encounter Details Date Type Department Care Team (Late st Contact Info) Description 11/24/2018 12:00 PM CDT Home Care Visit [facility] Health [place] [address] [address] [place] [address] Julee Lundberg, PT PT OASIS DISCHARGE Social [...] on file 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
--- OUTSIDE RECORDS SUMMARY | 2024-09-04 18:21 | XMS_ITS | Encounter Summary ---
Author Organization [facility] Medical Group Address [address] [facility] [address] [place] [address] Care Team Providers Care Transplant Surgeon Name Role Phone Dominic Fernando MD Primary Care Provider [phone] Reason for Referral * Diagnostic Imaging (Routine) - Closed Specialty Diagnoses / Procedures Referred By Evan t Referred To Contact Diagnoses Aftercare following right knee joint replacement surgery Procedures XR Knee Right 3 Views Nghia Mckay PA Phone: tel: fax: Referral ID Status Reason Start Date Expiration Date Visits Re quested Visits Authorized [id number] Closed 11/25/2018 06/05/2020 1 1 Reason for Visit * Reason Comments Post-op Encounter Details Date Type Department Care Team (Late st Contact Info) Description 11/25/2018 9:30 AM CDT Office Visit [facility] Orthopedics and Sports Medicine [address] [facility] [address] [place] [address] Nghia Mckay PA [address] [place] [address] [address] [place] [address] Aftercare following right knee joint replacement surgery [...] on file 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
--- OUTSIDE RECORDS SUMMARY | 2024-09-04 18:21 | XMS_ITS | Encounter Summary ---
Author Organization [facility] Address [address] [place] [address] Phone Care Team Providers Care Security Supervisor Name Role Phone Dominic Fernando MD Primary Care Provider [phone] Reason for Visit * Auth/Cert Specialty Diagnoses / Procedures Referred By Contac t Referred To Contact Referral ID Status Reason Start Date Expiration Date Visits Re quested Visits Authorized [id number] 1 1 Encounter Details Date Type Department Care Team (Late st Contact Info) Description 11/24/2018 Home Care Visit [facility] Health [address] [place] [address] Julee Lundberg, PT PT SUPERVISORY VISIT Social [...] on file Legal 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
--- OUTSIDE RECORDS SUMMARY | 2024-09-04 18:22 | XMS_ITS | Encounter Summary ---
Author Organization [facility] Address [address] [place] [address] Phone Care Team Providers Care Solution Architect Name Role Phone Dominic Fernando MD Primary Care Provider [phone] Reason for Visit * Auth/Cert Specialty Diagnoses / Procedures Referred By Contac t Referred To Contact Referral ID Status Reason Start Date Expiration Date Visits Re quested Visits Authorized [id number] 1 1 Encounter Details Date Type Department Care Team (Late st Contact Info) Description 11/21/2018 1:00 PM TILE LAYER DRAINAGE Home Care Visit [facility] [address] [place] [address] [address] [place] [phone] Zakia Fuchs PTA PT HOME VISIT Social [...] on file Legal Sex Female 11:26 PM TILE LAYER DRAINAGE Gender Identity Not on file Sexual Orientation Not on file documented as of this encounter Last Filed Vital Signs Vital Sign Reading Time Taken Comments Blood Pressure 124/68 11/21/2018 12:59 PM TILE LAYER DRAINAGE Pulse 72 11/21/2018 12:59 PM TILE LAYER DRAINAGE Temperature 36.7 ??C (98.1 ??F) 11/21/2018 12:[address] Respiratory Rate 16 11/21/2018 12:59 PM TILE LAYER DRAINAGE Oxygen Saturation 95% 11/21/2018 12:59 PM TILE LAYER DRAINAGE Inhaled Oxygen Concentration - - Weight - [...] discharge. documented in this encounter Care Teams Solution Architect Relationship Specialty Start Date End Date Dominic Fernando MD [address] [facility] [address] [facility] [address] [place] [id number] PCP - General 08/13/17 documented as of this encounter
--- OUTSIDE RECORDS SUMMARY | 2024-09-04 18:23 | XMS_ITS | Encounter Summary ---
Author Organization [facility] Address [address] [place] [address] Phone Care Team Providers Care Book Publisher Name Role Phone Dominic Fernando MD Primary Care Provider [phone] Reason for Visit * Auth/Cert Specialty Diagnoses / Procedures Referred By Contac t Referred To Contact Referral ID Status Reason Start Date Expiration Date Visits Re quested Visits Authorized [id number] 1 1 Encounter Details Date Type Department Care Team (Late st Contact Info) Description 11/19/2018 12:30 PM HOT IRON WORKER Home Care Visit [facility] Health [place] [address] [address] [place] [phone] Zakia Fuchs PTA PT HOME VISIT Social [...] file Legal Sex Female 11:26 PM HOT IRON WORKER Gender Identity Not on file Sexual Orientation Not on file documented as of this encounter Last Filed Vital Signs Vital Sign Reading Time Taken Comments Blood Pressure 120/70 11/19/2018 12:18 PM HOT IRON WORKER Pulse 64 11/19/2018 12:18 PM HOT IRON WORKER Temperature 36.6 ??C (97.8 ??F) 11/19/2018 12:[address] Respiratory Rate 16 11/19/2018 12:18 PM HOT IRON WORKER Oxygen Saturation 96% 11/19/2018 12:18 PM HOT IRON WORKER Inhaled Oxygen Concentration - - Weight - [...] melba. documented in this encounter Care Teams Book Publisher Relationship Specialty Start Date End Date Dominic Fernando MD [address] [place], [place] [phone] PCP - General 08/13/17 documented as of this encounter
--- OUTSIDE RECORDS SUMMARY | 2024-09-04 18:24 | XMS_ITS | Encounter Summary ---
Author Organization [facility] Address [address] [place] [address] Phone Care Team Providers Care Private Client Advisor Name Role Phone Dominic Fernando MD Primary Care Provider [phone] Reason for Visit * Auth/Cert Specialty Diagnoses / Procedures Referred By Contac t Referred To Contact Referral ID Status Reason Start Date Expiration Date Visits Re quested Visits Authorized [id number] 1 1 Encounter Details Date Type Department Care Team (Late st Contact Info) Description 11/18/2018 3:00 PM WOOD TILE INSTALLER Home Care Visit [facility] - [place] [address] [address] [place] [address] Shagufta Gonzalez RN SN DISCIPLINE DISCHARGE Social [...] on file Legal Sex Female 11:26 PM WOOD TILE INSTALLER Gender Identity Not on file Sexual Orientation Not on file documented as of this encounter Plan of Treatment Not on file documented as of this encounter Visit Diagnoses Not on filedocumented in this encounter Care Teams Private Client Advisor Relationship Specialty Start Date End Date Dominic Fernando MD [address] [place] [address] PCP - General 08/13/17 documented as of this encounter
--- OUTSIDE RECORDS SUMMARY | 2024-09-04 18:25 | XMS_ITS | Encounter Summary ---
Author Organization [facility] Medical Group Address [address] [facility] [address] [place] [address] Care Team Providers Care Qm Consultant Name Role Phone Dominic Fernando MD Primary Care Provider [phone] Reason for Visit * Reason Onset Date Comments FMLA papers for son 11/17/2018 Encounter Details Date Type Department Care Team (Late st Contact Info) Description 11/17/2018 Telephone [facility] Orthopedics and Sports Medicine [address] [facility] [address] [place] [address] Kemal Wright MD [address] [place] [address] [address] [place] [address] FMLA papers for son Social [...] on file Legal Sex Female 11:26 PM CONTAINER REPAIRER Gender Identity Not on file Sexual Orientation Not on file documented as of this encounter Miscellaneous Notes * Telephone Encounter - Rola Hernandez RT - 11/17/2018 11:40 AM CONTAINER REPAIRER Spoke with patients son. Disability paperwork is ready for picking belt operator. AINER REPAIRER * Telephone Encounter - Sadia Rodríguez - 11/17/2018 10:11 AM CST Pt is calling because she was seen on Saturday and her son dropped off some FMLA papers for him. She is wanting to know if they are ready for picking belt operator and would like a call at [phone]. AINER REPAIRER documented in this encounter Plan of Treatment Not on file documented as of this encounter Visit Diagnoses Not on filedocumented in this encounter Care Teams Qm Consultant Relationship Specialty Start Date End Date Dominic Fernando MD [address] [facility] [address] [place] [phone] PCP - General 08/13/17 documented as of this encounter
--- OUTSIDE RECORDS SUMMARY | 2024-09-04 18:25 | XMS_ITS | Encounter Summary ---
Author Organization [facility] Address [address] [facility] [address] [place] [address] Care Team Providers Care Residential Direct Support Professional Name Role Phone Dominic Fernando MD Primary Care Provider [phone] Encounter Details Date Type Department Care Team (Late st Contact Info) Description 11/17/2018 Telephone [facility] Medical [facility] Orthopedics and Sports Medicine [address] [place] [address] Ever Nino PA [address] [place] [address] [facility] [address] [address] Social History Tobacco Use Types Packs/Day Years Used Date Smoking Tobacco: Every Day Cigarettes Smokeless Tobacco: Current Comments:quitting now, 1 pac k last 2-3 days Alcohol Use Standard Drinks/Week Comments No 0 (1 standard drink = 0.6 oz pur e alcohol) Comments No Sex and Gender Information Value Date Recorded Sex Assigned at Not on file Legal Sex Female 11:26 PM NAIL TECHNICIAN TEACHER Gender Identity Not on file Sexual [...] if she had any questions or concerns. TECHNICIAN TEACHER * Telephone Encounter - Ever Nino PA - 11/17/2018 1:10 PM NAIL TECHNICIAN TEACHER please krish pt and see how she is doing TECHNICIAN TEACHER documented in this encounter Plan of Treatment Not on file documented as of this encounter Visit Diagnoses Not on filedocumented in this encounter Care Teams Residential Direct Support Professional Relationship Specialty Start Date End Date Dominic Fernando MD [address] [facility] [address] [place] [address] PCP - General 08/13/17 documented as of this encounter
--- OUTSIDE RECORDS SUMMARY | 2024-09-04 18:26 | XMS_ITS | Encounter Summary ---
Author Organization [facility] Home Care Servic es Address [address] [place] [address] Phone Care Team Providers Care Deck Lid Fitter Name Role Phone Dominic Fernando MD Primary Care Provider [phone] Reason for Visit * Auth/Cert Specialty Diagnoses / Procedures Referred By Contac t Referred To Contact Referral ID Status Reason Start Date Expiration Date Visits Re quested Visits Authorized [id number] 1 1 Encounter Details Date Type Department Care Team (Late st Contact Info) Description 11/14/2018 Home Care Visit [facility] [address] [place] [address] Bekah Carrera, PT CASE COMMUNICATION Social History [...] on file Legal Sex Female 11:26 PM PLATINUMSMITH Gender Identity Not on file Sexual Orientation Not on file documented as of this encounter Plan of Treatment Not on file documented as of this encounter Visit Diagnoses Not on filedocumented in this encounter Care Teams Deck Lid Fitter Relationship Specialty Start Date End Date Dominic Fernando MD [address] [place] [address] PCP - General 08/13/17 documented as of this encounter
--- OUTSIDE RECORDS SUMMARY | 2024-09-04 18:26 | XMS_ITS | Encounter Summary ---
Author Organization [facility] Healthcare Address [address] [place] [address] Care Team Providers Care Shoe Shanker Name Role Phone Dominic Fernando MD Primary Care Provider [phone] Encounter Details Date Type Department Care Team (Latest Contact Info) Description 11/14/2018 1:20 PM BODY MECHANIC - 11/15/2018 3:10 PM BODY MECHANIC Hospital Encounter [facility] [address] [place] [address] Kemal Wright MD [address] [place] [address] [address] FRYE [address] [facility] [address] [place] [address] Discharge Disposition: Discharge to home, home health [...] on file Legal Sex Female 11:26 PM BODY MECHANIC Gender Identity Not on file Sexual Orientation Not on file documented as of this encounter Last Filed Vital Signs Vital Sign Reading Time Taken Comments Blood Pressure 110/54 11/15/2018 7:00 AM BODY MECHANIC Pulse 66 11/15/2018 7:00 AM BODY MECHANIC Temperature 36.5 ??C (97.7 ??F) 11/15/2018 7:00 AM CS T Respiratory Rate 18 11/15/2018 7:00 AM BODY MECHANIC Oxygen Saturation 95% 11/15/2018 7:00 AM BODY MECHANIC Inhaled Oxygen Concentration - - Weight - - Height - - Body Mass Index - - documented in this encounter Discharge Summaries * Teodora Prieto PA - 11/15/2018 3:10 PM CST Inpatient Discharge Summary BRIEF OVERVIEW Admitting Provider: Kemal Wright MD Discharge Provider: Kemal Wright MD Primary Care Physician at Discharge: Dominic Fernando MD [phone] Admission Date: 11/14/2018 Discharge Date: 11/15/2018 Admission Location: [facility] Primary Discharge Diagnosis: POD 3 right [...] SYNTHROID, LEVOTHROID Take 112 mcg by mouth ticker wirer before breakfast. ondansetron ODT 4 mg disintegrating [...] 11/19/2018 To Be Determined Juan Dorsey PTA [facility] None 11/21/2018 To Be Determined Juan Dosrey PTA [facility] None 11/24/2018 To Be Determined Julee Lundberg, PT [facility] None 11/25/2018 9:30 AM [facility]IZABETH Ray [facility] Contact Information for Follow-ups Follow-up with provider Next Steps: Follow up Comments: 2 weeks Dominic Fernando MD Specialty: Internal Medicine Relationship: PCP - General [facility] [address] [place] [address] Next Steps: Follow up Cosigned by Kemal Wright MD at 11/19/2018 9:21 AM BODY MECHANIC MECHANIC MECHANIC documented in this encounter Medications at Time of Discharge atorvastatin (LIPITOR) 40 mg tablet Take 40 mg by mouth daily. 10/09/2018 cyanocobalamin (Vitamin B-12) 1,000 mcg tabletIndications:Pr evention of Vitamin B12 Deficiency Take 1,000 mcg by mouth daily. folic acid (FOLVITE) 1 mg tablet Take 1 mg by mouth daily. levothyroxine (SYNTHROID, LEVOTHROID) 112 mcg tablet Take 112 mcg by mouth ticker wirer before breakfast. 07/21/[address] (PROTONIX) 20 [...] private vehicle via staff. Immobilizer in place. MECHANIC * Svetlana Chua, PT - 11/15/2018 11:27 [...] Equipment Wheeled walker Prior Function Level of [place] Independent with ADLs;Independent functional transfers;Independent with ambulation [...] training;Stair Mobility Training PT Evaluation Complete Yes MECHANIC * Teodora Prieto PA - 11/15/2018 9:54 [...] at all times while ambulating with walker. MECHANIC * Tawana Polo OT - 11/15/2018 9:17 [...] Equipment Wheeled walker Prior Function Level of [place] Independent with ADLs;Independent functional transfers;Independent with ambulation [...] Recommended Shower chair OT Evaluation Complete Yes MECHANIC * Faye Levi OT - 11/14/2018 1:40 PM CST Occupational Therapy 11/14/18 9404 General Chart Reviewed Yes OT Missed Visit Reason MD/RN Hold (pt. needs LE dopplers, hold. Per nursing pt. Indep ) MECHANIC documented in this encounter H&P Notes * [...] Kemal Wright MD at 11/16/2018 10:23 AM BODY MECHANIC MECHANIC MECHANIC documented in this encounter Miscellaneous Notes * Plan of Care - Nithya Castro RN - 11/15/2018 3:08 PM CST Goals: Clinical Goals for the Shift: pain control, no nausea, stable vitals, steady gait Summary: patients pain well control, no nausea or vomiting since mid am. Vitals stable. Immobilizerin place and patient aware of use. MECHANIC * Plan of Care - Tawana Polo OT - 11/15/2018 9:19 AM CST Problem: Dressings Lower Extremities Goal: LTG - Patient will dress lower body Modified independence Outcome: Progressing Problem: Toileting Goal: LTG - Patient will complete toileting tasks With modified independence Outcome: Progressing Problem: Transfers Goal: LTG - Patient will demonstrate safe transfer techniques Modified independence Outcome: Progressing MECHANIC * Plan of Care - Jaz Renner RN - 11/14/2018 7:37 PM BODY MECHANIC Health Behavior: ??? Understanding of discharge needs [...] intake and output, no complaints of nausea MECHANIC documented in this encounter Plan of Treatment Not on file documented as of this encounter Procedures Procedure Name Priority Date/Time Associated Diagnosis Comments CBC WITHOUT DIFFERENTIAL Routine 11/15/2018 3:14 AM BODY MECHANIC NEUROLYSIS PERIPHERAL NERVE 11/14/2018 3:00 PM BODY MECHANIC PAIN US VEIN DUPLEX LOWER EXTREMITY RIGHT LIMITED ED Urgent/IP Urgent 11/14/2018 2:43 PM BODY MECHANIC documented in this encounter Results * (ABNORMAL) CBC without differential (11/15/2018 3:14 AM BODY MECHANIC) WBC 6.9 3.8 - 9.9 K/cumm [facility] [...] NRBC abs 0.00 0.00 - 0.01 K[facility] Blood specimen (specimen) 11/15/2018 3:14 AM BODY MECHANIC 11/15/2018 3:32 AM BODY MECHANIC Narrative [facility] ([facility]) - 11/15/2018 3:34 AM BODY MECHANIC us Ever [facility] Final Result [facility] ([facility]) [address] [facility] [place] [address] * US Vein Duplex Lower Extremity Right Limited (11/14/2018 2:43 PM BODY MECHANIC) Anatomical Region Laterality Modality Vascular Right Ultrasound 11/14/2018 2:44 PM BODY MECHANIC Impressions 11/14/2018 2:45 PM BODY MECHANIC NO DEEP VEIN THROMBOSIS IDENTIFIED. Electronically signed by: Damian Carrillo M.D. Narrative 11/14/2018 2:45 PM BODY MECHANIC US VEIN DUPLEX LOWER EXTREMITY RIGHT LIMITED [...] Indications: Fever, PainIndications:Fever,Pain Given 11/15/2018 1:11 PM BODY MECHANIC 1,000 mg Given 11/15/2018 5:27 AM BODY MECHANIC 1,000 mg Given 11/14/2018 11:33 PM BODY MECHANIC 1,000 mg albuterol (PROVENTIL,VENTOLIN) 2.5 mg /3 mL (0.083 %) nebulizer solution 2.5 mg 2.5 mg, nebulization, 2 times daily PRN (respiratory technician), wheezing, shortness of breath, Starting on Sat11/14/18 at 1335, This therapy was substituted for albuterol HFA 2 puffs BID PRN per protocol. atorvastatin (LIPITOR) tablet 40 mg 40 mg, oral, Daily, First dose on Sat11/14/18 at 1500 Given 11/15/2018 8:56 AM BODY MECHANIC 40 mg bupivacaine preservative free 0.125 % [...] PainIndications:Postoperative Pain New Bag 11/14/2018 3:55 PM BODY MECHANIC 6 mL/hr 6 mL/hr Right Groin cetirizine (ZyrTEC) tablet 10 mg 10 mg, oral, Daily, First dose on Sat11/14/18 at 1500 Given 11/15/2018 8:56 AM BODY MECHANIC 10 mg folic acid (FOLVITE) tablet 1 mg 1 mg, oral, Daily, First dose on Sat11/14/18 at 1500 Given 11/15/2018 8:56 AM BODY MECHANIC 1 mg gabapentin (NEURONTIN) capsule 300 mg 300 mg, oral, 3 times daily, First dose on Sat11/14/18 at 1600 Given 11/15/2018 8:56 AM BODY MECHANIC 300 mg Given 11/14/2018 8:22 PM BODY MECHANIC 300 mg HYDROmorphone (DILAUDID) injection 1 mg 1 mg, intramuscular, Administer over 2 Minutes, Once, On Sat11/14/18 at 1445, For 1 dose Given 11/14/2018 2:13 PM BODY MECHANIC 1 mg Left Anterior Thigh Lactated Ringer's (LR) infusion 30 mL/hr, intravenous, Continuous, Starting on Sat11/14/18 at 1615, Pre-Op New Bag 11/14/2018 2:50 PM BODY MECHANIC 30 mL/hr 30 mL/hr levothyroxine (SYNTHROID, LEVOTHROID) tablet 112 mcg 112 mcg, oral, Daily (early AM), First dose on Sat11/15/18 at 0600, Administer on an empty stomach, preferably 30 minutes before breakfast. Take 4 hours apart from antacids, iron and calcium products. Given 11/15/2018 5:27 AM BODY MECHANIC 112 mcg ondansetron (ZOFRAN) injection 4 mg 4 mg, intravenous, Administer over 2 Minutes, Every 4 hours PRN, nausea, vomiting, Starting on Sat11/14/18 at 1358 ondansetron ODT (ZOFRAN-ODT) disintegrating tablet 4 mg 4 mg, oral, Every 4 hours PRN, nausea, vomiting, Starting on Sat11/14/18 at 1320 Given 11/15/2018 10:31 AM BODY MECHANIC [address] (PROTONIX) extended release tablet 40 mg 40 mg, oral, Daily, First dose on Sat11/14/18 at 1500, This therapy was substituted for pantoprazole 40 mg per protocol due to formulary availability. Do not crush, chew, cut, dissolve, open or otherwise manipulate tablet/capsule., Indications: Treatment of Non-Bleeding Gastric DisorderIndications:Treat ment of Non-Bleeding Gastric Disorder Given 11/15/2018 8:56 AM BODY MECHANIC 40 mg polyethylene glycol (MIRALAX) packet 17 g 17 g, oral, Daily, First dose on Sat11/15/18 at 0900, Hold for diarrhea., Indications: constipationIndications:c onstipation Given 11/15/2018 8:55 AM BODY MECHANIC 17 g senna-docusate (PERICOLACE) 8.6-50 mg per tablet 2 tablet 2 tablet, oral, 2 times daily, First dose on Sat11/14/18 at 2100, Hold for diarrhea., Indications: constipationIndications:c onstipation Given 11/15/2018 8:56 AM BODY MECHANIC 2 tablets Given 11/14/2018 8:22 PM BODY MECHANIC 2 tablets traMADol (ULTRAM) tablet 100 mg 100 mg, oral, Every 6 hours scheduled, First dose on Sat11/14/18 at 1800, Indications: PainIndications:Pain Given 11/15/2018 1:11 PM BODY MECHANIC 100 mg Given 11/15/2018 5:28 AM BODY MECHANIC 100 mg Given 11/14/2018 11:33 PM BODY MECHANIC 100 mg documented in this encounter Discontinued [...] Recently Administered Medications Times are shown in BODY MECHANIC. Scheduled Medication Order 11/13/2018 11/14/2018 11/15/2018 acetaminophen (TYLENOL) tablet 1,000 mg 1,000 mg, oral, Every 6 hours scheduled, First dose on Sat11/14/18 at 1800, Indications: Fever, Pain 1512 ([facility] Hold - Provider: Automatic Transfer Provider - Reason: Patient not available)1624 ([facility] Unhold - Provider: Automatic Transfer Provider)1751 (Given - Provider: Jaz Renner, MIKHAIL)2333 (Given - Provider: Madison Fung, MIKHAIL) 0527 (Given - Provider: Ioana Wall, MIKHAIL)1311 (Given - Provider: Nithya Castro RN) atorvastatin (LIPITOR) tablet 40 mg 40 mg, oral, Daily, First dose on Sat11/14/18 at 1500 1512 ([facility] Hold - Provider: Automatic Transfer Provider - Reason: Patient not available)1624 ([facility] Unhold - Provider: Automatic Transfer Provider)1735 (Not Given - Provider: Jaz Renner RN - Reason: Contraindicated) 0856 (Given - Provider: Nithya Castro RN) cetirizine (ZyrTEC) tablet 10 mg 10 mg, oral, Daily, First dose on Sat11/14/18 at 1500 1512 ([facility] Hold - Provider: Automatic Transfer Provider - Reason: Patient not available)1624 ([facility] Unhold - Provider: Automatic Transfer Provider)1736 (Not Given - Provider: Jaz Renner RN - Reason: Contraindicated) 0856 (Given - Provider: Nithya Castro RN) folic acid (FOLVITE) tablet 1 mg 1 mg, oral, Daily, First dose on Sat11/14/18 at 1500 1512 ([facility] Hold - Provider: Automatic Transfer Provider - Reason: Patient not available)1624 ([facility] Unhold - Provider: Automatic Transfer Provider)1736 (Not Given - Provider: Jaz Renner, MIKHAIL - Reason: Contraindicated) 0856 (Given - Provider: Nithya Castro RN) gabapentin (NEURONTIN) capsule 300 mg 300 mg, oral, 3 times daily, First dose on Sat11/14/18 at 1600 1512 ([facility] Hold - Provider: Automatic Transfer Provider - [...] Transfer Provider - Reason: Patient not available)1624 ([facility] Unhold - Provider: Automatic Transfer Provider)1738 (Not [...] from antacids, iron and calcium products. 1512 ([facility] Hold - Provider: Automatic Transfer Provider - Reason: Patient not available)1624 ([facility] Unhold - Provider: Automatic Transfer Provider) 0527 (Given - Provider: Ioana Wall, MIKHAIL) pantoprazole DR (PROTONIX) extended release tablet 40 mg 40 mg, oral, Daily, First dose on Sat11/14/18 at 1500, This therapy was substituted for pantoprazole 40 mg per protocol due to formulary availability. Do not crush, chew, cut, dissolve, open or otherwise manipulate tablet/capsule., Indications: Treatment of Non-Bleeding Gastric Disorder 1512 ([facility] Hold - Provider: Automatic Transfer Provider - Reason: Patient not available)1624 ([facility] Unhold - Provider: Automatic Transfer Provider)1736 (Not Given - Provider: Jaz Renner, MIKHAIL - Reason: Contraindicated) 0856 (Given - Provider: Nithya Castro, RN) polyethylene glycol (MIRALAX) packet 17 g 17 g, oral, Daily, First dose on Sat11/15/18 at 0900, Hold for diarrhea., Indications: constipation 1512 ([facility] Hold - Provider: Automatic Transfer Provider - Reason: Patient not available)1624 ([facility] Unhold - Provider: Automatic Transfer Provider) 0855 [...] Indications: VTE Prophylaxis Following Ortho Surgery 1512 ([facility] Hold - Provider: Automatic Transfer Provider - Reason: Patient not available)1624 ([facility] Unhold - Provider: Automatic Transfer Provider)1747 (Not Given - Provider: Jaz Renner, MIKHAIL - Reason: Contraindicated) senna-docusate (PERICOLACE) 8.6-50 mg per tablet 2 tablet 2 tablet, oral, 2 times daily, First dose on Sat11/14/18 at 2100, Hold for diarrhea., Indications: constipation 1512 ([facility] Hold - Provider: Automatic Transfer Provider - Reason: Patient not available)1624 ([facility] Unhold - Provider: Automatic Transfer Provider)202 (Given - Provider: Madison Fung RN) 0856 (Given - Provider: Nithya Castro RN) traMADol (ULTRAM) tablet 100 mg 100 mg, oral, Every 6 hours scheduled, First dose on Sat11/14/18 at 1800, Indications: Pain 1512 ([facility] Hold - Provider: Automatic Transfer Provider - Reason: Patient not available)1624 ([facility] Unhold - Provider: Automatic Transfer Provider)1751 (Given [...] mg, nebulization, 2 times daily PRN (respiratory technician), wheezing, shortness of breath, Starting on Sat11/14/18 [...] dissolve, open or otherwise manipulate tablet/capsule. 1512 ([facility] Hold - Provider: Automatic Transfer Provider - Reason: Patient not available)1624 ([facility] Unhold - Provider: Automatic Transfer Provider) magnesium hydroxide (MILK OF MAGNESIA) 80 mg/mL (33.3 mg/mL as elemental magnesium) oral suspension 30 mL 30 mL, oral, Daily PRN, constipation, Starting on Sat11/14/18 at 1321 1512 ([facility] Hold - Provider: Automatic Transfer Provider - Reason: Patient not available)1624 ([facility] Unhold - Provider: Automatic Transfer Provider) mineral oil (FLEET MINERAL OIL) enema 1 enema 1 enema, rectal, Daily PRN, constipation, if no results 24 hours after bisacodyl, Starting on Sat11/14/18 at 1321, Indications: constipation 1512 ([facility] Hold - Provider: Automatic Transfer Provider - Reason: Patient not available)1624 ([facility] Unhold - Provider: Automatic Transfer Provider) ondansetron (ZOFRAN) injection 4 mg 4 mg, intravenous, Administer over 2 Minutes, Every 4 hours PRN, nausea, vomiting, Starting on Sat11/14/18 at 1358 1512 ([facility] Hold - Provider: Automatic Transfer Provider - Reason: Patient not available)1624 ([facility] Unhold - Provider: Automatic Transfer Provider) ondansetron ODT (ZOFRAN-ODT) disintegrating tablet 4 mg 4 mg, oral, Every 4 hours PRN, nausea, vomiting, Starting on Sat11/14/18 at 1320 1512 ([facility] Hold - Provider: Automatic Transfer Provider - Reason: Patient not available)1624 ([facility] Unhold - Provider: Automatic Transfer Provider) 1031 (Given - Provider: Nithya Castro RN) sodium chloride 0.9% flush 0.5-20 mL 0.5-20 mL, intra-catheter, As needed, line care, Starting on Sat11/14/18 at 1321, Flush volume based on line type and size. Flush before and after each use. , Indications: Flushing 1512 ([facility] Hold - Provider: Automatic Transfer Provider - Reason: Patient not available)1624 ([facility] Unhold - Provider: Automatic Transfer Provider) documented [...] 11/14/2018 documented in this encounter Care Teams Shoe Shanker Relationship Specialty Start Date End Date Dominic Fernando MD [address] [place] [address] PCP - General 08/13/17 documented as of this encounter
--- OUTSIDE RECORDS SUMMARY | 2024-09-04 18:26 | XMS_ITS | Encounter Summary ---
Author Organization [facility] Home Care Servic es Address [address] [place] [address] Phone Care Team Providers Care Publishing Manager Name Role Phone Dominic Fernando MD Primary Care Provider [phone] Reason for Visit * Auth/Cert Specialty Diagnoses / Procedures Referred By Contac t Referred To Contact Referral ID Status Reason Start Date Expiration Date Visits Re quested Visits Authorized [id number] 1 1 Encounter Details Date Type Department Care Team (Latest Contact Info) Description 11/17/2018 3:30 PM COUNTER SALES PERSON Home Care Visit [facility] [address] [place] [address] [address] [place], [place] [id number] Julee Lundberg, PT PT INITIAL EVALUATION Social [...] on file Legal Sex Female 11:26 PM COUNTER SALES PERSON Gender Identity Not on file Sexual Orientation Not on file documented as of this encounter Last Filed Vital Signs Vital Sign Reading Time Taken Comments Blood Pressure 124/70 11/17/2018 3:06 PM COUNTER SALES PERSON Pulse 68 11/17/2018 3:06 PM COUNTER SALES PERSON Temperature 36.4 ??C (97.5 ??F) 11/17/2018 3:06 PM CS T Respiratory Rate 16 11/17/2018 3:06 PM COUNTER SALES PERSON Oxygen Saturation 98% 11/17/2018 3:06 PM COUNTER SALES PERSON Inhaled Oxygen Concentration - - Weight - [...] agreement documented in this encounter Care Teams Publishing Manager Relationship Specialty Start Date End Date Dominic Fernando MD [address] [facility] [address] INTER[address] MEDIC[facility] [place] [id number] PCP - General 08/13/17 documented as of this encounter
--- OUTSIDE RECORDS SUMMARY | 2024-09-04 18:27 | XMS_ITS | Encounter Summary ---
Author Organization [facility] Healthcare Address [address] [place] [address] Care Team Providers Care Stock Saw Operator Name Role Phone Dominic Fernando MD Primary Care Provider [phone] Encounter Details Date Type Department Care Team (Late st Contact Info) Description 11/14/2018 3:00 PM ECOTHERAPIST - 11/14/2018 4:40 PM ECOTHERAPIST Surgery [facility] Operating Room [address] [place] [address] Jose Alfredo Rodríguez MD PhD [address] [place] [id number] PERIPHERAL NERVE BLOCK Surgery Details Date/Time Status [...] on file Legal Sex Female 11:26 PM ECOTHERAPIST Gender Identity Not on file Sexual Orientation Not on file documented as of this encounter Last Filed Vital Signs Vital Sign Reading Time Taken Comments Blood Pressure 105/53 11/14/2018 3:40 PM ECOTHERAPIST Pulse 70 11/14/2018 3:40 PM ECOTHERAPIST Temperature - - Respiratory Rate 20 11/14/2018 3:05 PM ECOTHERAPIST Oxygen Saturation 95% 11/14/2018 3:40 PM ECOTHERAPIST Inhaled Oxygen Concentration - - Weight - - Height - - Body Mass Index - - documented in this encounter Discharge Summaries * Teodora Prieto PA - 11/15/2018 3:10 PM CST Inpatient Discharge Summary BRIEF OVERVIEW Admitting Provider: Kemal Wright MD Discharge Provider: Kemal Wright MD Primary Care Physician at Discharge: Dominic Fernando MD [phone] Admission Date: 11/14/2018 Discharge Date: 11/15/2018 Admission Location: [facility] Primary Discharge Diagnosis: POD 3 right [...] SYNTHROID, LEVOTHROID Take 112 mcg by mouth rail assembler before breakfast. ondansetron ODT 4 mg disintegrating [...] 11/19/2018 To Be Determined Juan Dorsey PTA [facility] None 11/21/2018 To Be Determined Juan Dorsey PTA [facility] None 11/24/2018 To Be Determined Julee Lundberg, PT [facility] None 11/25/2018 9:30 AM ELIZABETH Ray [facility] Contact Information for Follow-ups Follow-up with provider Next Steps: Follow up Comments: 2 weeks Dominic Fernando MD Specialty: Internal Medicine Relationship: PCP - General [facility] [address] [facility] [address] Next Steps: Follow up Cosigned by Kemal Wright MD at 11/19/2018 9:21 AM ECOTHERAPIST HERAPIST HERAPIST documented in this encounter Medications at Time of Discharge atorvastatin (LIPITOR) 40 mg tablet Take 40 mg by mouth daily. 10/09/2018 cyanocobalamin (Vitamin B-12) 1,000 mcg tabletIndications:Pr evention of Vitamin B12 Deficiency Take 1,000 mcg by mouth daily. folic acid (FOLVITE) 1 mg tablet Take 1 mg by mouth daily. levothyroxine (SYNTHROID, LEVOTHROID) 112 mcg tablet Take 112 mcg by mouth rail assembler before breakfast. 07/21/[address] (PROTONIX) 20 [...] private vehicle via staff. Immobilizer in place. HERAPIST * Svetlana Chua, PT - 11/15/2018 11:27 [...] Equipment Wheeled walker Prior Function Level of [place] Independent with ADLs;Independent functional transfers;Independent with ambulation [...] training;Stair Mobility Training PT Evaluation Complete Yes HERAPIST * Teodora Prieto PA - 11/15/2018 9:54 [...] at all times while ambulating with walker. HERAPIST * Tawana Polo OT - 11/15/2018 9:17 [...] Equipment Wheeled walker Prior Function Level of [place] Independent with ADLs;Independent functional transfers;Independent with ambulation [...] Recommended Shower chair OT Evaluation Complete Yes HERAPIST * Faye Levi OT - 11/14/2018 1:40 PM CST Occupational Therapy 11/14/18 9014 General Chart Reviewed Yes OT Missed Visit Reason MD/RN Hold (pt. needs LE dopplers, hold. Per nursing pt. Indep ) HERAPIST documented in this encounter H&P Notes * [...] Kemal Wright MD at 11/16/2018 10:23 AM ECOTHERAPIST HERAPIST HERAPIST documented in this encounter Miscellaneous Notes * Plan of Care - Nithya Castro RN - 11/15/2018 3:08 PM CST Goals: Clinical Goals for the Shift: pain control, no nausea, stable vitals, steady gait Summary: patients pain well control, no nausea or vomiting since mid am. Vitals stable. Immobilizerin place and patient aware of use. HERAPIST * Plan of Care - Tawana Polo OT - 11/15/2018 9:19 AM CST Problem: Dressings Lower Extremities Goal: LTG - Patient will dress lower body Modified independence Outcome: Progressing Problem: Toileting Goal: LTG - Patient will complete toileting tasks With modified independence Outcome: Progressing Problem: Transfers Goal: LTG - Patient will demonstrate safe transfer techniques Modified independence Outcome: Progressing HERAPIST * Plan of Care - Jaz Renner RN - 11/14/2018 7:37 PM ECOTHERAPIST Health Behavior: ??? Understanding of discharge needs [...] intake and output, no complaints of nausea HERAPIST documented in this encounter Plan of Treatment Not on file documented as of this encounter Procedures Procedure Name Priority Date/Time Associated Diagnosis Comments CBC WITHOUT DIFFERENTIAL Routine 11/15/2018 3:14 AM ECOTHERAPIST NEUROLYSIS PERIPHERAL NERVE 11/14/2018 3:00 PM ECOTHERAPIST PAIN US VEIN DUPLEX LOWER EXTREMITY RIGHT LIMITED ED Urgent/IP Urgent 11/14/2018 2:43 PM ECOTHERAPIST documented in this encounter Results * (ABNORMAL) CBC without differential (11/15/2018 3:14 AM ECOTHERAPIST) WBC 6.9 3.8 - 9.9 K/cumm CERNER [...] (NIMA) Blood specimen (specimen) 11/15/2018 3:14 AM ECOTHERAPIST 11/15/2018 3:32 AM ECOTHERAPIST Narrative [facility] (NIMA) - 11/15/2018 3:34 AM ECOTHERAPIST us Ever [facility] LAB BLOOD ORDERABLES Final Result [facility] (NIMA) 1 [facility] Department of Laboratories [place], [place] [id number] * US Vein Duplex Lower Extremity Right Limited (11/14/2018 2:43 PM ECOTHERAPIST) Anatomical Region Laterality Modality Vascular Right Ultrasound 11/14/2018 2:44 PM ECOTHERAPIST Impressions 11/14/2018 2:45 PM ECOTHERAPIST NO DEEP VEIN THROMBOSIS IDENTIFIED. Electronically signed by: Damian Carrillo M.D. Narrative 11/14/2018 2:45 PM ECOTHERAPIST US VEIN DUPLEX LOWER EXTREMITY RIGHT LIMITED [...] by: Damian Carrillo M.D. Kemal Wright MD [facility] PROCEDURES Final Resu lt documented in this encounter Visit Diagnoses Not on filedocumented in this encounter Administered Medications Inactive Administered Medications - up to 3 most recent administrations Medication Order MAR Action Action Date Dose Rate Site acetaminophen (TYLENOL) tablet 1,000 mg 1,000 mg, oral, Every 6 hours scheduled, First dose on Sat11/14/18 at 1800, Indications: Fever, PainIndications:Fever,Pain Given 11/15/2018 1:11 PM ECOTHERAPIST 1,000 mg Given 11/15/2018 5:27 AM ECOTHERAPIST 1,000 mg Given 11/14/2018 11:33 PM ECOTHERAPIST 1,000 mg albuterol (PROVENTIL,VENTOLIN) 2.5 mg /3 mL (0.083 %) nebulizer solution 2.5 mg 2.5 mg, nebulization, 2 times daily PRN (speech/language therapist), wheezing, shortness of breath, Starting on Sat11/14/18 at 1335, This therapy was substituted for albuterol HFA 2 puffs BID PRN per protocol. atorvastatin (LIPITOR) tablet 40 mg 40 mg, oral, Daily, First dose on Sat11/14/18 at 1500 Given 11/15/2018 8:56 AM ECOTHERAPIST 40 mg bupivacaine preservative free 0.125 % [...] PainIndications:Postoperative Pain New Bag 11/14/2018 3:55 PM ECOTHERAPIST 6 mL/hr 6 mL/hr Right Groin cetirizine (ZyrTEC) tablet 10 mg 10 mg, oral, Daily, First dose on Sat11/14/18 at 1500 Given 11/15/2018 8:56 AM ECOTHERAPIST 10 mg folic acid (FOLVITE) tablet 1 mg 1 mg, oral, Daily, First dose on Sat11/14/18 at 1500 Given 11/15/2018 8:56 AM ECOTHERAPIST 1 mg gabapentin (NEURONTIN) capsule 300 mg 300 mg, oral, 3 times daily, First dose on Sat11/14/18 at 1600 Given 11/15/2018 8:56 AM ECOTHERAPIST 300 mg Given 11/14/2018 8:22 PM ECOTHERAPIST 300 mg HYDROmorphone (DILAUDID) injection 1 mg 1 mg, intramuscular, Administer over 2 Minutes, Once, On Sat11/14/18 at 1445, For 1 dose Given 11/14/2018 2:13 PM ECOTHERAPIST 1 mg Left Anterior Thigh Lactated Ringer's (LR) infusion 30 mL/hr, intravenous, Continuous, Starting on Sat11/14/18 at 1615, Pre-Op New Bag 11/14/2018 2:50 PM ECOTHERAPIST 30 mL/hr 30 mL/hr levothyroxine (SYNTHROID, LEVOTHROID) tablet 112 mcg 112 mcg, oral, Daily (early AM), First dose on Sat11/15/18 at 0600, Administer on an empty stomach, preferably 30 minutes before breakfast. Take 4 hours apart from antacids, iron and calcium products. Given 11/15/2018 5:27 AM ECOTHERAPIST 112 mcg ondansetron (ZOFRAN) injection 4 mg 4 mg, intravenous, Administer over 2 Minutes, Every 4 hours PRN, nausea, vomiting, Starting on Sat11/14/18 at 1358 ondansetron ODT (ZOFRAN-ODT) disintegrating tablet 4 mg 4 mg, oral, Every 4 hours PRN, nausea, vomiting, Starting on Sat11/14/18 at 1320 Given 11/15/2018 10:31 AM ECOTHERAPIST [address] (PROTONIX) extended release tablet 40 mg 40 mg, oral, Daily, First dose on Sat11/14/18 at 1500, This therapy was substituted for pantoprazole 40 mg per protocol due to formulary availability. Do not crush, chew, cut, dissolve, open or otherwise manipulate tablet/capsule., Indications: Treatment of Non-Bleeding Gastric DisorderIndications:Treat ment of Non-Bleeding Gastric Disorder Given 11/15/2018 8:56 AM ECOTHERAPIST 40 mg polyethylene glycol (MIRALAX) packet 17 g 17 g, oral, Daily, First dose on Sat11/15/18 at 0900, Hold for diarrhea., Indications: constipationIndications:c onstipation Given 11/15/2018 8:55 AM ECOTHERAPIST 17 g senna-docusate (PERICOLACE) 8.6-50 mg per tablet 2 tablet 2 tablet, oral, 2 times daily, First dose on Sat11/14/18 at 2100, Hold for diarrhea., Indications: constipationIndications:c onstipation Given 11/15/2018 8:56 AM ECOTHERAPIST 2 tablets Given 11/14/2018 8:22 PM ECOTHERAPIST 2 tablets traMADol (ULTRAM) tablet 100 mg 100 mg, oral, Every 6 hours scheduled, First dose on Sat11/14/18 at 1800, Indications: PainIndications:Pain Given 11/15/2018 1:11 PM ECOTHERAPIST 100 mg Given 11/15/2018 5:28 AM ECOTHERAPIST 100 mg Given 11/14/2018 11:33 PM ECOTHERAPIST 100 mg documented in this encounter Discontinued [...] Recently Administered Medications Times are shown in ECOTHERAPIST. Scheduled Medication Order 11/13/2018 11/14/2018 11/15/2018 acetaminophen [...] Transfer Provider - Reason: Patient not available)1624 ([facility] Unhold - Provider: Automatic Transfer Provider)1735 (Not Given - Provider: Jaz Renner RN - Reason: Contraindicated) 0856 (Given - Provider: Nithya Castro RN) cetirizine (ZyrTEC) tablet 10 mg 10 mg, oral, Daily, First dose on Sat11/14/18 at 1500 1512 ([facility] Hold - Provider: Automatic Transfer Provider - Reason: Patient not available)1624 ([facility] Unhold - Provider: Automatic Transfer Provider)1736 (Not Given - Provider: Jaz Renner RN - Reason: Contraindicated) 0856 (Given - Provider: Nithya Castro, MIKHAIL) folic acid (FOLVITE) tablet 1 mg 1 mg, oral, Daily, First dose on Sat11/14/18 at 1500 1512 ([facility] Hold - Provider: Automatic Transfer Provider - Reason: Patient not available)1624 ([facility] Unhold - Provider: Automatic Transfer [...] Indications: Treatment of Non-Bleeding Gastric Disorder 1512 ([facility] Hold - Provider: Automatic Transfer Provider - Reason: Patient not available)1624 ([facility] Unhold - Provider: Automatic Transfer Provider)173 (Not Given - Provider: Jaz Renner RN - Reason: Contraindicated) 0856 (Given - Provider: Nithya Castro, RN) polyethylene glycol (MIRALAX) packet 17 g 17 g, oral, Daily, First dose on Sat11/15/18 at 0900, Hold for diarrhea., Indications: constipation 1512 ([facility] Hold - Provider: Automatic Transfer Provider - Reason: Patient not available)1624 ([facility] Unhold - Provider: Automatic Transfer [...] Indications: VTE Prophylaxis Following Ortho Surgery 1512 ([facility] Hold - Provider: Automatic Transfer Provider - Reason: Patient not available)1624 ([facility] Unhold - Provider: Automatic Transfer Provider)1747 (Not Given - Provider: Jaz Renner RN - Reason: Contraindicated) senna-docusate (PERICOLACE) 8.6-50 mg per tablet 2 tablet 2 tablet, oral, 2 times daily, First dose on Sat11/14/18 at 2100, Hold for diarrhea., Indications: constipation 1512 ([facility] Hold - Provider: Automatic Transfer Provider - Reason: Patient not available)1624 ([facility] Unhold - Provider: Automatic Transfer Provider)202 (Given - Provider: Madison Fung RN) 0856 (Given - Provider: Nithya Castro RN) traMADol (ULTRAM) tablet 100 mg 100 mg, oral, Every 6 hours scheduled, First dose on Sat11/14/18 at 1800, Indications: Pain 1512 ([facility] Hold - Provider: Automatic Transfer Provider - Reason: Patient not available)1624 ([facility] Unhold - Provider: Automatic Transfer [...] 2.5 mg, nebulization, 2 times daily PRN (speech/language therapist), wheezing, shortness of breath, Starting on [...] dissolve, open or otherwise manipulate tablet/capsule. 1512 ([facility] Hold - Provider: Automatic Transfer Provider - Reason: Patient not available)1624 ([facility] Unhold - Provider: Automatic Transfer Provider) magnesium hydroxide (MILK OF MAGNESIA) 80 mg/mL (33.3 mg/mL as elemental magnesium) oral suspension 30 mL 30 mL, oral, Daily PRN, constipation, Starting on Sat11/14/18 at 1321 1512 ([facility] Hold - Provider: Automatic Transfer Provider - Reason: Patient not available)1624 ([facility] Unhold - Provider: Automatic Transfer Provider) mineral oil (FLEET MINERAL OIL) enema 1 enema 1 enema, rectal, Daily PRN, constipation, if no results 24 hours after bisacodyl, Starting on Sat11/14/18 at 1321, Indications: constipation 1512 ([facility] Hold - Provider: Automatic Transfer Provider - Reason: Patient not available)1624 ([facility] Unhold - Provider: Automatic Transfer Provider) ondansetron (ZOFRAN) injection 4 mg 4 mg, intravenous, Administer over 2 Minutes, Every 4 hours PRN, nausea, vomiting, Starting on Sat11/14/18 at 1358 1512 ([facility] Hold - Provider: Automatic Transfer Provider - Reason: Patient not available)1624 ([facility] Unhold - Provider: Automatic Transfer Provider) ondansetron ODT (ZOFRAN-ODT) disintegrating tablet 4 mg 4 mg, oral, Every 4 hours PRN, nausea, vomiting, Starting on Sat11/14/18 at 1320 1512 ([facility] Hold - Provider: Automatic Transfer Provider - Reason: Patient not available)1624 ([facility] Unhold - Provider: Automatic Transfer Provider) 1031 (Given - Provider: Nithya Castro RN) sodium chloride 0.9% flush 0.5-20 mL 0.5-20 mL, intra-catheter, As needed, line care, Starting on Sat11/14/18 at 1321, Flush volume based on line type and size. Flush before and after each use. , Indications: Flushing 1512 ([facility] Hold - Provider: Automatic Transfer [...] 11/14/2018 documented in this encounter Care Teams Stock Saw Operator Relationship Specialty Start Date End Date Dominic Fernando MD [address] [facility] [address] [place] [id number] PCP - General 08/13/17 documented as of this encounter
--- OUTSIDE RECORDS SUMMARY | 2024-09-04 18:27 | XMS_ITS | Encounter Summary ---
Author Organization [facility] Address [address] [place] [address] Care Team Providers Care Online Content Editor Name Role Phone Dominic Fernando MD Primary Care Provider [phone] Encounter Details Date Type Department Care Team (Late st Contact Info) Description 11/14/2018 3:00 PM FIRE CAPTAIN Anesthesia Event [facility] Operating Room [address] [place] [address] Jose Alfredo Rodríguez MD PhD [address] [place] [address] Anesthesia Record Procedure Summary Procedure Name Responsible [...] Tolerance: Tolerated well 11/14/18 1450 by Gloria Brnenan RN PNB catheter Placement Date: 11/14/18; Placement Time: 1500 (created via procedure documentation); Inserted by: Jose Alfredo Rodríguez MD PhD; Removal Date: Injectable, Topical, None; Removal Time: Tolerated well 11/14/18 1500 by Jose Alfredo Rodríguez MD PhD RETIRED Surgical Site 11/11/18; 1523; Right; Knee; 08/18/24 (Retired LDA, Removed/Completed by [employer] with LDA Utility); 1213 (Retired LDA, Removed/Completed by [employer] with LDA Utility) 11/11/18 1523 by Purnima [...] on file Legal Sex Female 11:26 PM FIRE CAPTAIN Gender Identity Not on file Sexual Orientation Not on file documented as of this encounter OR Notes * Anesthesia Postprocedure Evaluation - Jose Alfredo Rodríguez MD PhD - 11/14/2018 3:11 PM CST Patient: Gege Vidal Procedure Summary Date: 11/14/18 Room / Location: [facility] OPERATING ROOM Anesthesia Start: Anesthesia Stop: Procedure: [...] acceptable Pt is: normothermic Nausea/Vomiting status: none CAPTAIN * Anesthesia Procedure Notes - Jose Alfredo [...] patient tolerated procedure well with no complications CAPTAIN * Anesthesia Preprocedure Evaluation - Jose Alfredo [...] is Floor. Informed Consent: Discussed plan with OPTICAL LATHE OPERATOR. Anesthesia plan and risks discussed with patient. Consent and Attending signature: I and/or my designee have discussed the anesthesia plan, benefits, possible alternatives, parental presence at time of induction (if indicated), and clinically relevant risks that may include dental injury, unintentional awareness, and/or other complications. The patient and/or parent/legal guardian understand, and agree to proceed. All questions answered. CAPTAIN documented in this encounter Plan of Treatment Not on file documented as of this encounter Procedures Procedure Name Priority Date/Time Associated Diagnosis Comments ANESTHESIA PERIPHERAL BLOCK Routine 11/14/2018 3:10 PM FIRE CAPTAIN Procedure Note - Jose Alfredo Rodríguez MD [...] 1503, Anesthesia Intra-op Given 11/14/2018 3:03 PM FIRE CAPTAIN 30 mL fentaNYL (SUBLIMAZE) preservative free injection As needed, Starting on Sat11/14/18 at 1503, Anesthesia Intra-op Given 11/14/2018 3:03 PM FIRE CAPTAIN 100 mcg documented in this encounter Orders Procedures Count Last Ordered Date First Orde red Date ANESTHESIA PERIPHERAL BLOCK 1 11/14/2018 documented in this encounter Care Teams Online Content Editor Relationship Specialty Start Date End Date Dominic Fernando MD [address] [facility] [address] [place] [address] PCP - General 08/13/17 documented as of this encounter
--- OUTSIDE RECORDS SUMMARY | 2024-09-04 18:27 | XMS_ITS | Encounter Summary ---
Author Organization [facility] Healthcare Address [address] [place] [address] Care Team Providers Care Manager Medical Name Role Phone Dominic Fernando MD Primary Care Provider [phone] Encounter Details Date Type Department Care Team (Late st Contact Info) Description 11/14/2018 1:35 PM BUMPER MACHINE OPERATOR Lab [address] [phone] Social History Tobacco Use Types Packs/Day Years Used Date Smoking Tobacco: Every Day Cigarettes Smokeless Tobacco: Current Comments:quitting now, 1 pac k last 2-3 days Alcohol Use Standard Drinks/Week Comments No 0 (1 standard drink = 0.6 oz pur e alcohol) Comments No Sex and Gender Information Value Date Recorded Sex Assigned at Not on file Legal Sex Female 11:26 PM BUMPER MACHINE OPERATOR Gender Identity Not on file Sexual Orientation Not on file documented as of this encounter Plan of Treatment Not on file documented as of this encounter Procedures Procedure Name Priority Date/Time Associated Diagnosis Comments CBC WITHOUT DIFFERENTIAL STAT 11/14/2018 11:06 AM BUMPER MACHINE OPERATOR documented in this encounter Results * (ABNORMAL) CBC without differential (11/14/2018 11:06 AM BUMPER MACHINE OPERATOR) WBC 7.8 3.8 - 9.9 K/cumm CERNER [...] (NIMA) Blood specimen (specimen) 11/14/2018 11:06 AM BUMPER MACHINE OPERATOR 11/14/2018 1:31 PM BUMPER MACHINE OPERATOR Narrative [facility] ([facility] - 11/14/2018 1:34 PM BUMPER MACHINE OPERATOR us Kemal Wright MD LAB BLOOD ORDERABLES Final R esult [facility] ([facility]) 1 [facility] Department [place] [address] documented in this encounter Visit Diagnoses Not on filedocumented in this encounter Care Teams Manager Medical Relationship Specialty Start Date End Date Dominic Fernando MD [address] [place] [address] [place] [address] PCP - General 08/13/17 documented as of this encounter
--- OUTSIDE RECORDS SUMMARY | 2024-09-04 18:28 | XMS_ITS | Encounter Summary ---
Author Organization [facility] Medical [facility] Address [address] [place] [address] Care Team Providers Care Assignment Officer Name Role Phone Dominic Fernando MD Primary Care Provider [phone] Reason for Visit * Reason Comments Post-op Encounter Details Date Type Department Care Team (Late st Contact Info) Description 11/14/2018 1:00 PM INSURANCE VERIFICATION REPRESENTATIVE Office Visit [facility] Sports Medicine [address] [place] [phone] Ever Nino PA [address] [facility] [address] [place] [address] S/P total knee arthroplasty, right (Primary Dx); [...] on file Legal Sex Female 11:26 PM INSURANCE VERIFICATION REPRESENTATIVE Gender Identity Not on file Sexual Orientation Not on file documented as of this encounter Last Filed Vital Signs Vital Sign Reading Time Taken Comments Blood Pressure - - Pulse - - Temperature - - Respiratory Rate - - Oxygen Saturation - - Inhaled Oxygen Concentration - - Weight 86.2 kg (190 lb) 11/14/2018 12:41 PM INSURANCE VERIFICATION REPRESENTATIVE Height 160 cm (5' 3 ) 11/14/2018 12:41 PM INSURANCE VERIFICATION REPRESENTATIVE Body Mass Index 33.66 11/14/2018 12:41 PM INSURANCE VERIFICATION REPRESENTATIVE documented in this encounter Progress Notes * [...] tramadol with tylenol and gabapentin. ELIZABETH Ontiveros RANCE VERIFICATION REPRESENTATIVE documented in this encounter Plan of Treatment Not on file documented as of this encounter Visit Diagnoses Diagnosis S/P total knee arthroplasty, right- Primary Suspected DVT (deep vein thrombosis) Rash and other nonspecific skin eruption Uncontrolled pain documented in this encounter Care Teams Assignment Officer Relationship Specialty Start Date End Date Dominic Fernando MD [address] [facility] [address] [place] [address] PCP - General 08/13/17 documented as of this encounter
--- OUTSIDE RECORDS SUMMARY | 2024-09-04 18:29 | XMS_ITS | Encounter Summary ---
Author Organization [facility] Address [address] [place] [address] Phone Care Team Providers Care Leisure Studies Professor Name Role Phone Dominic Fernando MD Primary Care Provider [phone] Encounter Details Date Type Department Care Team (Late st Contact Info) Description 11/13/2018 Plan of Care Documentation [facility] [address] [address] [address] [place] [address] Social History Tobacco Use Types Packs/Day Years Used Date Smoking Tobacco: Every Day Cigarettes Smokeless Tobacco: Current Comments:quitting now, 1 pac k last 2-3 days Alcohol Use Standard Drinks/Week Comments No 0 (1 standard drink = 0.6 oz pur e alcohol) Comments No Sex and Gender Information Value Date Recorded Sex Assigned at Not on file Legal Sex Female 11:26 PM [employer] Gender Identity Not on file Sexual Orientation Not on file documented as of this encounter Plan of Treatment Not on file documented as of this encounter Visit Diagnoses Not on filedocumented in this encounter Care Teams Leisure Studies Professor Relationship Specialty Start Date End Date Dominic Fernando MD [address] [facility] [place] [address] PCP - General 08/13/17 documented as of this encounter
--- OUTSIDE RECORDS SUMMARY | 2024-09-04 18:30 | XMS_ITS | Encounter Summary ---
Author Organization [facility] Healthcare Address [address] [place] [address] Care Team Providers Care Java Lead Engineer Name Role Phone Dominic Fernando MD Primary Care Provider [phone] Reason for Referral * (Routine) - Closed Specialty Diagnoses / Procedures Referred By Contac t Referred To Contact Diagnoses Preoperative testing Procedures ECG 12 lead Kemal Wright MD Phone: tel: fax: [address] [phone] Referral ID Status Reason Start Date Expiration Date Visits Re quested Visits Authorized [id number] Closed 10/28/2018 05/08/2020 1 1 MACHINIST Encounter Details Date Type Department Care Team (Latest Contact Info) Description 11/11/2018 10:37 AM HEAD MACHINIST - 11/12/2018 3:10 PM HEAD MACHINIST Hospital Encounter [facility] Surgery Care [address] [place] [address] Kemal Wright MD [address] [place] [address] DR FRYE B [facility] [address] [place] [address] Preoperative testing (Primary Dx); Primary osteoarthritis of [...] file Legal Sex Female 11:26 PM HEAD MACHINIST Gender Identity Not on file Sexual Orientation Not on file documented as of this encounter Last Filed Vital Signs Vital Sign Reading Time Taken Comments Blood Pressure 113/70 11/12/2018 11:05 AM HEAD MACHINIST Pulse 69 11/12/2018 11:05 AM HEAD MACHINIST Temperature 35.6 ??C (96 ??F) 11/12/2018 11:05 AM HEAD MACHINIST Respiratory Rate 20 11/12/2018 11:05 AM HEAD MACHINIST Oxygen Saturation 95% 11/12/2018 11:05 AM HEAD MACHINIST Inhaled Oxygen Concentration - - Weight 86.8 kg (191 lb 5.8 oz) 11/11/2018 11:01 AM HEAD MACHINIST Height 160 cm (5' 3 ) 11/11/2018 11:01 AM HEAD MACHINIST Body Mass Index 33.9 11/11/2018 11:01 AM HEAD MACHINIST documented in this encounter Discharge Summaries * Ever Nino PA - 11/12/2018 3:28 PM CST Inpatient Discharge Summary BRIEF OVERVIEW Admitting Provider: Kemal Wright MD Discharge Provider: Kemal Wright MD Primary Care Physician at Discharge: Dominic Fernando MD [phone] Admission Date: 11/11/2018 Discharge Date: 11/12/2018 Admission Location: [facility] Primary Discharge Diagnosis: Aftercare following right [...] Home Health Primary disciplines requested: Physical Therapy Snf Secondary disciplines requested: Occupational Therapy Home Health [...] provider for: severe uncontrolled pain Walker The [id number] evaluation was performed on: 11/11/2018 THANK YOU for choosing us to provide your health care. Your HEALTH AND SAFETY are important to us. We hope you feel your care on SCU was ALWAYS EXCELLENT! Please call SCU at [phone] if you have any questions regarding your [...] SYNTHROID, LEVOTHROID Take 112 mcg by mouth cupola tapper helper before breakfast. oxyCODONE-acetaminophen 5-325 mg per tablet [...] 11/13/2018 To Be Determined Shagufta Gonzalez RN [facility] None 11/13/2018 To Be Determined RESOURCE PT [place] MONTEOR [facility] None 11/17/2018 To Be Determined Miracle Pitt OT [facility] None 11/25/2018 9:30 AM ELIZABETH Ray [facility] Decent Contact Information for Follow-ups [facility] Home Care Services Specialty: Home Health and Hospice [address] [place], [place] [id number] Next Steps: Follow up Questions: Service Line: Home Health Primary disciplines requested: Physical Therapy Snf Secondary disciplines requested: Occupational Therapy Home Health [...] Authorization ELIZABETH Ray Specialty: Orthopedic Surgery, Physician [facility] [address] [facility] [place] [address] Next Steps: Go on 11/25/2018 Cosigned by Kemal Wright MD at 11/13/2018 10:23 AM HEAD MACHINIST MACHINIST MACHINIST documented in this encounter Discharge Instructions * Discharge Instr - Other Orders* Katlin Valencia RN - 11/12/2018 11:48 AM HEAD MACHINIST THANK YOU for choosing us to provide your health care. Your HEALTH AND SAFETY are important to us. We hope you feel your care on SCU was ALWAYS EXCELLENT! Please call SCU at [phone] if you have any questions regarding your care. Wishing you continued improvement during your recovery. The Staff of The Surgical Care Unit . Flakita Starks Crystal, Sharon, Sarah, Scott, Katlin Owen, Jaz, Nithya, Madison, Cee, Suzan, Lu,Carmen, Ute and Salud. MACHINIST * Attachments The following attachments cannot be sent through Care Everywhere. * Joint Replacement Surgery (Discharge Care) (Canadian) * How to Use an Incentive Spirometer (Discharge Care) (Canadian) * DONA Hose (Discharge Care) (Canadian) * Ascorbic Acid (Vitamin C) (By mouth) (Canadian) * Celecoxib (By mouth) (Canadian) * Iron Supplements (By mouth) (Canadian) * Oxycodone/Acetaminophen (By mouth) (Canadian) documented in this encounter Medications at Time of Discharge atorvastatin (LIPITOR) 40 mg tablet Take 40 mg by mouth daily. 10/09/2018 cyanocobalamin (Vitamin B-12) 1,000 mcg tabletIndications :Prevention of Vitamin B12 Deficiency Take 1,000 mcg by mouth daily. folic acid (FOLVITE) 1 mg tablet Take 1 mg by mouth daily. levothyroxine (SYNTHROID, LEVOTHROID) 112 mcg tablet Take 112 mcg by mouth cupola tapper helper before breakfast. 07/21/[address] (PROTONIX) 20 [...] this encounter Progress Notes * Emily Gurrola [facility] - 11/12/2018 2:38 PM CST Patient has been on 20 mg rivaroxaban for years (hx recurrent VTEs, stroke). She is restarting her 20 mg dose post-op. Student discussed s/sx of a clot, s/sx of a bleed, and drug interactions. She didn't have any questions and was provided a handout on Xarelto for reference. MACHINIST * Marilee Powell, OT - 11/12/2018 11:57 [...] Equipment Wheeled walker Prior Function Level of [place] Independent with ADLs;Independent with homemaking with ambulation (disability due to shdr/neck/back limitations work/accident) Lives With Son;Other (Comment) (DIL) Receives Help From Family Driving Yes Current License Yes UE Dressing UE Dressing: Level of assistance Set up UE Dressing: Assistance with Thread RUE;Thread LUE;side piece coverer head;Pull down in back LE Dressing LE [...] to Discharge No OT Evaluation Complete Yes MACHINIST * James Aviles, PT - 11/12/2018 9:34 [...] use at PLOF) Prior Function Level of [place] Independent with ADLs;Independent functional transfers;Independent with ambulation [...] Scales Pasero Opioid-Induced Sedation Scale (POSS) 1 MACHINIST * Theodore Raya, [facility] - 11/11/2018 7:52 PM CST Xarelto dose changed to 10mg po qd for 12 days post knee op for vte prophylaxis MACHINIST * Robel Gurrola, [facility] - 11/11/2018 11:18 AM CST Dose adjusted per surgical prophylaxis protocol, for weight less than 80 kg give 1000 mg, for weight 80 kg or greater give 1500 mg beginning 1-2 hours prior to incision. MACHINIST documented in this encounter H&P Notes * [...] and Depuy cement and quick set cement MACHINIST Source Note - Ever Nino PA - 11/06/2018 4:19 PM HEAD MACHINIST [facility] Janine Vidal Chief [...] right Total knee arthroplasty on 11/11/18 at [facility]. It is estimated they will have a [...] Kemal Wright MD at 11/09/2018 10:20 AM HEAD MACHINIST MACHINIST MACHINIST * Ever Nino PA - 11/06/2018 4:19 PM CST [facility] Janine Vidal Chief [...] right Total knee arthroplasty on 11/11/18 at [facility]. It is estimated they will have a [...] Kemal Wright MD at 11/09/2018 10:20 AM HEAD MACHINIST MACHINIST MACHINIST documented in this encounter Nursing Notes * Lexie Kurtz RN - 11/12/2018 4:19 PM CST 1510 Discharged to home in stable condition. Escorted to car per wheelchair. MACHINIST * Lexie Kurtz RN - 11/12/2018 1:56 PM CST Discharge instructions given with home pharmacy delivery at bedside. No new equipment issued. All belongings packed. IV removed. Son here to take home. MACHINIST documented in this encounter Miscellaneous Notes * Plan of Care - Zaynab Luevano PTA - 11/12/2018 2:34 PM CST Problem: PT Misc Goal: STG - Misc 3 Pt to ambulate 300' indep with fww consistently, to increase functional independence. Outcome: Progressing MACHINIST * Plan of Care - Lexie Kurtz RN - 11/12/2018 1:55 PM CST Goals: Clinical Goals for the Shift: pt safety, comfort, mobility, VSS, oral intake and UOP qs Summary: all goals met for stable discharge to home MACHINIST * Plan of Care - Mariela Yang RN - 11/12/2018 11:04 AM CST I spoke with pt and she lives with son and [id number] in [place]. She lives in the basement. Its a 2 level home and 2 stairs to enter and then steps to basement...approximately 10. She was indep with adls and ambulation. She has a wheeled walker and owns a wc, scooter, cane and BSC also and wants [facility], i sent referral to Heather for home care. I had explained pt choice list and she was fine with [facility]...she did NOT want [facility]. Goal is to return home with help of her family. MACHINIST * Plan of Care - Heather Lombardi RN - 11/12/2018 11:00 AM CST PT SET UP FOR HOME CARE WITH [facility] [phone] MACHINIST * Plan of Care - Berto Jacobsen [...] Sensory: ??? Pain level will decrease Progressing MACHINIST * Perioperative Nursing Note - Tracy Austin RN - 11/11/2018 5:04 PM CST 1645 radiology staff performed x ray at bedside. r knee flexed to 90 degrees with pillows. MACHINIST * Op Note - Kemal Wright MD [...] Implant Name Type Inv. Item Serial No. Dog License Officer Supervisor Lot No. LRB No. Used [employer]PHEW/RICH[employer]/ORTHO [id number] LEGION 9MM DISHED KNEE 3-4 INSERT TIBIAL XLPE - [id number] & NEPHEW/RICHCO/ORTHO [id number] LEGION 9MM DISHED KNEE 3-4 INSERT TIBIAL XLPE [employer]Ortho [id number] Right 1 [employer]PHEW[employer]RICH[employer]ORTHO [id number] LEGION CEMENTED MALE TAPER KNEE RIGHT 4 BASEPLATE TIBIAL TITANIUM - [id number] [employer]PHEW/RICHCO/ORTHO [id number] LEGION CEMENTED MALE TAPER KNEE RIGHT 4 BASEPLATE TIBIAL TITANIUM [employer]Rich[employer]Ortho [id number] Right 1 [id number] size 4 right cruciate retaining legion oxinium femoral componenet [employer]hew [id number] Right 1 [employer] [id number] PALACOS R+G HIGH VISCOSITY CEMENT BONE GENTAMICIN ARTHROPLASTY - [id number] [employer] [id number] PALACOS R+G HIGH VISCOSITY CEMENT BONE GENTAMICIN ARTHROPLASTY [employer] [id number] Right 1 OPERATIVE DETAILS Estimated Blood Loss: [...] Wright MD Date: 11/11/2018 Time: 8:47 PM MACHINIST * Pre-Procedure Instructions - Brigette Sanchez RN - 10/28/2018 10:38 AM HEAD MACHINIST We are pleased that you and your doctor have chosen [facility] for your surgery. We hope [...] mcg tablet ?? Use no make-up, nail portuguese, lotions, oils or powders on your skin. [...] posted at the top of the page. MACHINIST documented in this encounter Plan of Treatment Not on file documented as of this encounter Procedures Procedure Name Priority Date/Time Associated Diagnosis Comments XR KNEE RIGHT 1 OR 2 VIEWS STAT 11/11/2018 4:44 PM HEAD MACHINIST ARTHROPLASTY TOTAL KNEE 11/11/2018 1:52 PM HEAD MACHINIST Primary osteoarthritis of right knee Special Needs [employer] Black Beauty, TENS, CPM in hospital, cooling unit, 1 liter beta rinse, and Depuy cement and quick set cement APTT STAT 11/11/2018 11:54 AM HEAD MACHINIST PROTIME-INR STAT 11/11/2018 11:54 AM HEAD MACHINIST SURGICAL PATHOLOGY Routine 11/11/2018 9: 58 AM HEAD MACHINIST Primary osteoarthritis of right knee documented in this encounter Results * XR Knee Right 1 or 2 View (11/11/2018 4:44 PM HEAD MACHINIST) Anatomical Region Laterality Modality Lower Extremities, Knee Right Computed Radiography 11/11/2018 4:47 PM HEAD MACHINIST Impressions 11/11/2018 4:48 PM HEAD MACHINIST 1. ??Status post right total knee arthroplasty; femoral and tibial components only. Electronically signed by: Yann Trinidad Jr., M.D. Narrative 11/11/2018 4:48 PM HEAD MACHINIST XR KNEE RIGHT 1 OR 2 VIEWS [...] Res ult * aPTT (11/11/2018 11:54 AM HEAD MACHINIST) aPTT 26.6 25.0 - 37.0 sec [facility] ([place]) Blood specimen (specimen) 11/11/2018 11:54 AM HEAD MACHINIST 11/11/2018 12:07 PM HEAD MACHINIST Narrative [facility] ([place]) - 11/11/2018 12:25 PM HEAD MACHINIST Iglesia Sherman MD LAB BLOOD ORDERABLES F inal Result [facility] ([place]) 1 [facility] Department [place] [address] * Protime-INR (11/11/2018 11:54 AM HEAD MACHINIST) PT 11.3 9.5 - 13.0 sec JOSE [...] 2015. Blood specimen (specimen) 11/11/2018 11:54 AM HEAD MACHINIST 11/11/2018 12:07 PM HEAD MACHINIST Narrative JOSE J [facility] VíctorS[place]) - 11/11/2018 12:22 PM HEAD MACHINIST us Iglesia Shermna MD LAB BLOOD ORDERABLES F inal Result JOSE J [facility]) [address] [place] [address] Department [place] [address] * Surgical pathology (11/11/2018 9:58 AM HEAD MACHINIST) Tissue (Bone Fragment(s),) 11/11/2018 2:57 PM HEAD MACHINIST Narrative PATHOLOGY [facility] ([place]) - 11/17/2018 2:42 PM HEAD MACHINIST EPIC results best viewed via link to PDF [facility] Department of Pathology [address] [place] [id number] Final Report Patient Name: ??JANINE VIDALTevin Address: ??[address] [place] [address], ??[place], [place] ??[address] Gender: ??F : ??1960 (Age: 58) Service: ??Surgery Location: ??[facility] Hospital #: ??[id number] Patient Type: [facility] Accession # ?[id number] Taken: ??11/11/2018 Received: ??11/12/2018 Accessioned: ??11/12/2018 Reported: [...] determined by the Surgical Pathology Department at [facility] as part of an ongoing quality control inspector heading program and in compliance with federally mandated [...] characteristics determined by the Surgical Pathology Department [facility]. ??It has not been cleared or approved by the [place]. S. Food and Drug Administration. Kemal Wright MD LAB PATHOLOGY ORDERABLES Fin al Result Performing Organization Address [facility] Co de Phone Number PATHOLOGY [facility] ([place]) [address] [place] [address] * ECG 12 lead (11/04/2018 6:42 AM HEAD MACHINIST) 11/03/2018 12:4 6 PM HEAD MACHINIST Narrative [facility] - 11/03/2018 9:39 PM HEAD MACHINIST Vent Rate: 77 bpm RR Interval: 778 msec [place] Interval: 194 msec QRS Duration: 86 msec QT Interval: 365 msec QTC Interval: 396 msec P-R-T Blanchard: 67 - 6 - 74 degrees SINUS RHYTHM LOW QRS VOLTAGE IN PRECORDIAL LEADS ??[QRS DEFLECTION < 1.0 mV IN CHEST LEADS] NONSPECIFIC T-WAVE ABNORMALITY BORDERLINE ECG Electronically Signed By: Darion Lang MD Kemal Wright MD ECG ORDERABLES Final Result Performing Organization Address [facility] de Phone Number [facility] * (ABNORMAL) Vitamin D 25 hydroxy (11/03/2018 1:00 PM HEAD MACHINIST) Vitamin D 25-OH 12(L) 30 - 80 ng/mL [facility] ([place]) Blood specimen (specimen) 11/03/2018 1:00 PM HEAD MACHINIST 11/03/2018 1:14 PM HEAD MACHINIST Narrative [facility] ([place]) - 11/03/2018 2:20 PM HEAD MACHINIST Kemal Wright MD LAB BLOOD ORDERABLES Final R esult Performing Organization Address [facility] Co de Phone Number [facility] ([place]) 1 [facility] Department [place] [address] * (ABNORMAL) Urinalysis reflex to microscopic and culture Urine, clean voided (11/03/2018 1:00 PM HEAD MACHINIST) Color, ur Yellow Yellow [facility] ([place]) [...] ([place]) Urine, clean voided 11/03/2018 1:00 PM HEAD MACHINIST 11/03/2018 1:14 PM HEAD MACHINIST Narrative [facility] ([place]) - 11/03/2018 1:22 PM HEAD MACHINIST ?? Urine pH is affected by diet, medications, systemic acid-base disturbances, and renal tubular function. ??pH may affect urinary stone formation. ??For example, urine pH below 6.0 may help reduce the tendency for calcium phosphate stones and pH greater than 6.0 may reduce the tendency for uric acid stone formation. Source: [facility] [address] [facility]. Last revised 09-26-2017 us Kemal Wright MD LAB MICROBIOLOGY - GENERAL O RDERABLES Final Result Performing Organization Address [facility] Co de Phone Number JOSE J ALVARE[facility]) 1 [facility] Department [place] [address] * (ABNORMAL) aPTT (11/03/2018 1:00 PM HEAD MACHINIST) aPTT 42.4(H) 25.0 - 37.0 sec JOSE [facility] ([place]) Blood specimen (specimen) 11/03/2018 1:00 PM HEAD MACHINIST 11/03/2018 1:14 PM HEAD MACHINIST Narrative JOSE [facility] ([place]) - 11/03/2018 2:09 PM HEAD MACHINIST Kemal Wright MD LAB BLOOD ORDERABLES Final R esult [facility] ([place]) 1 [facility] Department [place] [address] * (ABNORMAL) Protime-INR (11/03/2018 1:00 PM HEAD MACHINIST) Pathologist [facility] PT 17.3(H) 9.5 - 13.0 sec [facility] ([place]) INR 1.52(H) 0.90 - 1.20 [facility] ([place]) Comment: Interpretive Data Recommended ranges for Protime INR: 2.0 - 3.0 Most indications for Warfarin therapy (e.g. Treatment of DVT, PE, bioprosthetic valve replacement, prophylaxis venous thrombosis, atrial fibrillation). 2.5 - 3.5 Mechanical mitral valve or dual mechanical mitral and Aortic valve replacement. Current Interpretive Data was last revised on 2015. Blood specimen (specimen) 11/03/2018 1:00 PM HEAD MACHINIST 11/03/2018 1:14 PM HEAD MACHINIST Narrative [facility] ([place]) - 11/03/2018 2:06 PM HEAD MACHINIST us Kemal Wright MD LAB BLOOD ORDERABLES Final [facility] ([place]) 1 [facility] Department [place] [address] * (ABNORMAL) Comprehensive metabolic panel (11/03/2018 1:00 PM HEAD MACHINIST) [facility] Sodium 141 135 - 145 mmol/L [facility] ([place]) Potassium, pl 3.3 3.3 - 4.9 mmol/L [facility] ([place]) Chloride 105 97 - 110 mmol/L [facility] ([place]) CO2 23 22 - 32 mmol/L [facility] ([place]) Anion gap 13 2 - 15 mmol/L [facility] ([place]) BUN 6(L) 8 - 25 mg/dL [facility] ([place]) Creatinine 0.93 0.60 - 1.10 mg/dL [facility] ([place]) Glucose 102 70 - 199 mg/dL [facility] ([place]) Comment: Interpretive Data Fasting glucose [...] ([place]) Blood specimen (specimen) 11/03/2018 1:00 PM HEAD MACHINIST 11/03/2018 1:14 PM HEAD MACHINIST Narrative [facility] ([place]) - 11/03/2018 2:04 PM HEAD MACHINIST us Kemal Wright MD LAB BLOOD ORDERABLES Final R esult JOSE J [facility] ([place]) 1 [facility] Department [place] [address] * CBC with auto differential (11/03/2018 1:00 PM HEAD MACHINIST) WBC 7.6 3.8 - 9.9 K/cumm [facility] [...] NRBC abs 0.00 0.00 - 0.01 K/cumm [facility] ([place] Blood specimen (specimen) 11/03/2018 1:00 PM HEAD MACHINIST 11/03/2018 1:14 PM HEAD MACHINIST Narrative [facility] ([place]) - 11/03/2018 1:19 PM HEAD MACHINIST Kemal Wright MD LAB BLOOD ORDERABLES Final R esult [facility] J [facility] ([place]) 1 [facility] Department [place] [address] documented in this encounter Visit Diagnoses Diagnosis [...] nebulization, 2 times daily PRN (respiratory therapy director), wheezing, Starting on Sat11/11/18 at 1945 ascorbic acid (VITAMIN C) tablet/chewable tablet 500 mg 500 mg, oral, 2 times daily, First dose on Sat11/11/18 at 2100, Indications: Vitamin deficiency preventionIndications:Vitamin deficiency prevention Given 11/12/2018 9:27 AM HEAD MACHINIST 500 mg Given 11/11/2018 8:38 PM HEAD MACHINIST 500 mg atorvastatin (LIPITOR) tablet 40 mg 40 mg, oral, Daily, First dose on Sat11/11/18 at 2100 Given 11/11/2018 9:26 PM HEAD MACHINIST 40 mg celecoxib (CeleBREX) capsule 200 mg 200 mg, oral, 2 times daily, First dose on Sat11/11/18 at 2100, Indications: Postoperative Acute Pain, PainIndications:Postoperative Acute Pain,Pain Given 11/12/2018 9:2 7 AM HEAD MACHINIST 200 mg Given 11/11/2018 8:38 PM HEAD MACHINIST 200 mg celecoxib (CeleBREX) capsule 400 mg 400 mg, oral, Once, On Sat11/11/18 at 1145, For 1 dose, Pre-Op, Hold if elevated creatine, Indications: PainIndications:Pain Given 11/11/2018 1:48 PM HEAD MACHINIST 400 mg cetirizine (ZyrTEC) tablet 10 mg 10 mg, oral, Daily, First dose on Sat11/11/18 at 2014 Given 11/12/2018 9:27 AM HEAD MACHINIST 10 mg cyanocobalamin (Vitamin B-12) tablet 1,000 mcg 1,000 mcg, oral, Daily, First dose on Sat11/11/18 at 2014, Indications: Prevention of Vitamin B12 DeficiencyIndications:Prevention of Vitamin B12 Deficiency Given 11/12/2018 9:28 AM HEAD MACHINIST 1,000 mcg Given 11/11/2018 9:26 PM HEAD MACHINIST 1,000 mcg diphenhydrAMINE (BENADRYL) injection 12.5 mg 12.5 mg, intravenous, Every 15 min PRN, itching, Starting on Sat11/11/18 at 1624, For 2 doses, Phase I, Max cumulative dose 50 mg., Indications: ItchingIndications:Itching Given 11/11/2018 6:29 PM HEAD MACHINIST 12.5 mg Right Hand diphenhydrAMINE (BENADRYL) injection 25 mg 25 mg, intravenous, Administer over 2 Minutes, Every 10 min PRN, other, reman's, Starting on Sat11/11/18 at 1127, For 2 doses, Pre-Op Given 11/11/2018 12:03 PM HEAD MACHINIST 25 mg diphenhydrAMINE (BENADRYL) injection 25 mg 25 mg, intravenous, Administer over 2 Minutes, Once, On Sat11/11/18 at 2300, For 1 dose, Indications: Hx drayl syndromeIndications:Hx daryl syndrome Given 11/11/2018 11:30 PM HEAD MACHINIST 25 mg ferrous sulfate tablet 325 mg 325 mg (65 mg of elemental iron), oral, Daily with breakfast, First dose on Sat11/12/18 at 0800, Indications: Iron Deficiency Anemia, Anemia preventionIndications:Iron Deficiency Anemia,Anemia prevention Given 11/12/2018 9:28 AM HEAD MACHINIST 325 mg HYDROcodone-acetaminophen (NORCO) 5-325 mg per tablet 1-2 tablet 1-2 tablet, oral, Every 4 hours PRN, 1st line for pain, Starting on Sat11/11/18 at 1935, Indications: PainIndications:Pain Given 11/12/2018 1:05 AM HEAD MACHINIST 1 tablet Lactated Ringer's (LR) infusion 30 mL/hr, intravenous, Continuous, Starting on Sat11/11/18 at 1145, Pre-Op New Bag 11/11/2018 2:52 PM HEAD MACHINIST New Bag 11/11/2018 12:07 PM HEAD MACHINIST 30 mL/hr 30 mL/hr levothyroxine (SYNTHROID, LEVOTHROID) tablet 112 mcg 112 mcg, oral, Daily (early AM), First dose on Sat11/12/18 at 0600, Administer on an empty stomach, preferably 30 minutes before breakfast. Take 4 hours apart from antacids, iron and calcium products. Given 11/12/2018 5:34 AM HEAD MACHINIST 112 mcg ondansetron (ZOFRAN) injection 4 mg [...] Vomiting,nausea and vomiting Given 11/12/2018 10:54 AM HEAD MACHINIST 4 mg Given 11/11/2018 9:29 PM HEAD MACHINIST 4 mg oxyCODONE ER (OxyCONTIN) extended release tablet 20 mg 20 mg, oral, Once, On Sat11/11/18 at 1145, For 1 dose, Pre-Op, Do not crush, chew, cut, dissolve, open or otherwise manipulate tablet/capsule., Indications: PainIndications:Pain Given 11/11/2018 1:48 PM HEAD MACHINIST 20 mg oxyCODONE-acetaminophen (PERCOCET) 5-325 mg per tablet 1-2 tablet 1-2 tablet, oral, Every 4 hours PRN, 2nd line for pain, Starting on Sat11/11/18 at 1935, Indications: PainIndications:Pain Given 11/12/2018 6:33 AM HEAD MACHINIST 1 ta blet Given 11/12/2018 2:19 AM HEAD MACHINIST [address] (PROTONIX) extended release tablet 40 mg 40 mg, oral, Daily, First dose on Sat11/11/18 at 2030, Do not crush, chew, cut, dissolve, open or otherwise manipulate tablet/capsule., Indications: Treatment of Non-Bleeding Gastric DisorderIndications:Treatment of Non-Bleeding Gastric Disorder Given 11/12/2018 9:28 AM HEAD MACHINIST 40 mg Given 11/11/2018 8:38 PM HEAD MACHINIST 40 mg rivaroxaban (XARELTO) tablet 20 mg [...] diarrhea., Indications: constipationIndications:constipation Given 11/12/2018 9:29 AM HEAD MACHINIST 2 table ts Given 11/11/2018 8:38 PM HEAD MACHINIST 2 tablets sodium chloride 0.9% infusion 100 mL/hr, intravenous, Continuous, Starting on Sat11/11/18 at 2015, DISCONTINUE WHEN TOLERATING ORAL FLUIDS New Bag 11/12/2018 5:34 AM HEAD MACHINIST 100 mL/hr 100 mL/hr New Bag 11/11/2018 8:40 PM HEAD MACHINIST 100 mL/hr 100 mL/hr vancomycin 1500 mg/250 mL in sodium chloride 0.9% (premix) 1,500 mg 1,500 mg, intravenous, Administer over 90 Minutes, Once, On Sat11/12/18 at 0000, For 1 dose, Administer 12 hours after pre-procedure dose., Indications: Prophylaxis, SurgicalIndications:Prophylaxis, Surgical New Bag 11/12/2018 12:40 AM HEAD MACHINIST 1,500 mg vancomycin 1500 mg/250 mL in [...] SurgicalIndications:Prophylaxis, Surgical New Bag 11/11/2018 12:04 PM HEAD MACHINIST 1,500 mg documented in this encounter Discontinued [...] Recently Administered Medications Times are shown in HEAD MACHINIST. Scheduled Medication Order 11/10/2018 11/11/2018 11/12/2018 ascorbic [...] daryl syndrome 2329 (Given - Provider: Berto Jacobsen RN) ferrous [...] Non-Bleeding Gastric Disorder 2037 (Given - Provider: eBrto Jacobsen RN) 927 (Given - Provider: Lexie [...] nebulization, 2 times daily PRN (respiratory therapy director), wheezing, Starting on Sat11/11/18 at 1945 bacitracin [...] 11/11/2018 documented in this encounter Care Teams Java Lead Engineer Relationship Specialty Start Date End Date Dominic Fernando MD [address] [place] [address] PCP - General 08/13/17 documented as of this encounter
--- OUTSIDE RECORDS SUMMARY | 2024-09-04 18:30 | XMS_ITS | Encounter Summary ---
Author Organization [facility] Address [address] [place] [address] Care Team Providers Care Professor Of Voice Name Role Phone Dominic Fernando MD Primary Care Provider [phone] Reason for Visit * Reason Onset Date Comments home health ? 11/13/2018 Encounter Details Date Type Department Care Team (Late st Contact Info) Description 11/13/2018 Telephone [facility] Orthopedics and Sports Medicine [address] [facility] [address] [place] [address] Kemal Wright MD [address] [place] [address] [address] [place] [address] home health ? Social History [...] on file Legal Sex Female 11:26 PM CASING SOAKER Gender Identity Not on file Sexual Orientation [...] Alexis Mckay PA - 11/13/2018 12:50 PM CASING SOAKER I discussed with patient and nurse present. [...] going to follow up on pt tomorrow. NG SOAKER * Telephone Encounter - Shruti Mooney MA - 11/13/2018 11:12 AM CST Called and spoke to Tiffanie and then alexis spoke to Home Care. Thank you NG SOAKER * Telephone Encounter - Peggy Smith - 11/13/2018 10:12 AM CST Tiffanie from [facility] Home Care is calling and states [...] for nausea. She can be reached at [phone] . States pt was able to take a pain pill this am. NG SOAKER * Telephone Encounter - Sadia Rodríguez - 11/13/2018 9:59 AM CST Tiffanie with [facility] Home Health left a vm stating she is needing a call at [phone]. NG SOAKER documented in this encounter Plan of Treatment Not on file documented as of this encounter Visit Diagnoses Not on filedocumented in this encounter Care Teams Professor Of Voice Relationship Specialty Start Date End Date Dominic Fernando MD [address] [email or web address] [address] [place] [id number] PCP - General 08/13/17 documented as of this encounter
--- OUTSIDE RECORDS SUMMARY | 2024-09-04 18:30 | XMS_ITS | Encounter Summary ---
Author Organization [facility] Home Care Servic es Address [address] [place] [address] Phone Care Team Providers Care Contract Preparer Name Role Phone Dominic Fernando MD Primary Care Provider [phone] Reason for Visit * Auth/Cert Specialty Diagnoses / Procedures Referred By Contac t Referred To Contact Referral ID Status Reason Start Date Expiration Date Visits Re quested Visits Authorized [id number] 1 1 Encounter Details Date Type Department Care Team (Late st Contact Info) Description 11/13/2018 9:45 AM BILLING SUPERVISOR Home Care Visit [facility] [place] [address] [address] [place] [id number] Shagufta Gonzalez RN SN OASIS START OF [...] on file Legal Sex Female 11:26 PM BILLING SUPERVISOR Gender Identity Not on file Sexual Orientation Not on file documented as of this encounter Last Filed Vital Signs Vital Sign Reading Time Taken Comments Blood Pressure 108/62 11/13/2018 9:37 AM BILLING SUPERVISOR Pulse 78 11/13/2018 9:37 AM BILLING SUPERVISOR Temperature 36.8 ??C (98.3 ??F) 11/13/2018 9:37 AM CS T Respiratory Rate 20 11/13/2018 9:37 AM BILLING SUPERVISOR Oxygen Saturation 93% 11/13/2018 9:37 AM BILLING SUPERVISOR Inhaled Oxygen Concentration - - Weight 86.2 kg (190 lb) 11/13/2018 9:37 AM BILLING SUPERVISOR Height 160 cm (5' 3 ) 11/13/2018 9:37 AM BILLING SUPERVISOR Body Mass Index 33.66 11/13/2018 9:37 AM BILLING SUPERVISOR documented in this encounter Plan of Treatment Not on file documented as of this encounter Visit Diagnoses Not on filedocumented in this encounter Home Health Visit - Care Plan Visit Details Visit Type -SN OASIS Start o f Care Discipline -Mcc Problems Problem Description Start Date Status Goals Interve ntions DVT Prevention and Management Disciplines: Mcc Home management of anticoagulation therapy 11/13/2018 Active - 1 problem intervention scheduled/documente d in this visit Incision Care Disciplines: Mcc Infection prevention and promotion of right knee incision healing 11/13/2018 Active - 2 problem interventions scheduled/documente d in this visit Medications Disciplines: Mcc Management of home medications 11/13/2018 Active - 5 problem interventions scheduled/documente d in this visit Patient/Caregiver Total Joint Education Disciplines: Mcc Patient/Carregiver Education re: Total Joint Replacement 11/13/2018 Active - 7 problem interventions scheduled/documente d in this visit Physical Discomfort Disciplines: Mcc Alteration in comfort 11/13/2018 Active - 1 problem intervention scheduled/documente d in this visit Alteration in nutrition Disciplines: Mcc Alteration in nutrition 11/13/2018 Active - 1 problem intervention scheduled/documente d in this visit Need to mobilize secretions Disciplines: Mcc Alteration in ability to mobilize secretions 11/13/2018 [...] all aspects of Total Joint Education Sheet Problem:Patient/proof technician helper Total Joint Education Completed Elimination Description: Assess elimination and instruct patient/caregiver on bowel regimen related to taking pain medication. Problem:Patient/proof technician helper Total Joint Education Completed Edema control and correct elevation/positioning Description: Assess edema and instruct patient/caregiver on edema control and correct elevation/positioning. Problem:Patient/proof technician helper Total Joint Education Completed use total joint [...] drink water/gatorade due to episodes of nausea/vomiting Problem:Patient/proof technician helper Total Joint Education Completed Fall Prevention/Safety concerns Description: Instruct in fall prevention strategies and safety during the post-operative recovery period in the home. Problem:Patient/proof technician helper Total Joint Education Completed Cryotherapy Description: Instruct patient/caregiver on ice treatment to right knee x 15-20 minutes after HEP and as needed for pain and edema control. May use polar pack up to 60 minutes at a time. Patient to use adequate barrier between ice pack/polar pack pad and monitor skin frequently. Problem:Patient/proof technician helper Total Joint Education Completed patient polar pack [...] lbs x 12 weeks, no tub bath Problem:Patient/proof technician helper Total Joint Education Completed Instruct on pain [...] 5-6 times per day and or a Coats diet until nausea resolved. Problem:Alteration in nutrition Completed Instructed patient on bland diet, foods to eat on bland diet. Eating small frequent meals 5-6 x per day, have son olive picker prescription for medication to control nausea, [...] therapy visits than documented in this item. [id number] - Mobility: Code the patient? s usual [...] following was required to complete this activity. TT0154 HZ5018.A.2 - Roll left and right: The ability to roll from lying on back to left and right side, and return to lying on back on the bed. Documented Answer: 09. Not applicable ? Not attempted and the patient did not perform this activity prior to the current illness, exacerbation or injury. Recommendation: 05. Setup or clean-up assistance ? Emelle sets up or cleans up; patient completes activity. Emelle assists only prior to or following the activity. EP0505 NG0276.B.2 - Sit to lying: The ability to move from sitting on side of bed to lying flat on the bed Documented Answer: 09. Not applicable ? Not attempted and the patient did not perform this activity prior to the current illness, exacerbation or injury. Recommendation: 05. Setup or clean-up assistance ? Emelle sets up or cleans up; patient completes activity. Emelle assists only prior to or following the activity. ZJ0495 NO9524.C.2 - Lying to sitting on side of [...] Recommendation: 05. Setup or clean-up assistance ? Emelle sets up or cleans up; patient completes activity. Emelle assists only prior to or following the activity. OZ4720 GF4631.E.2 - Chair/cbo-uw-ivrnw transfer: The ability to transfer to and from a bed to a chair (or wheelchair). Documented Answer: 09. Not applicable ? Not attempted and the patient did not perform this activity prior to the current illness, exacerbation or injury. Recommendation: 05. Setup or clean-up assistance ? Emelle sets up or cleans up; patient completes activity. Emelle assists only prior to or following the activity. CG0775 YY1871.I.2 - Walk 10 feet: Once standing, the ability to walk at least 10 feet in a room, corridor, or similar space. If SOC/GARRY performance is coded 07, 09, 10 or 88, skip to [id number], 1 step (curb) Documented Answer: 06. Independent ? Patient completes the activity by him/herself with no assistance from a helper. Recommendation: 05. Setup or clean-up assistance ? Emelle sets up or cleans up; patient completes activity. Emelle assists only prior to or following the activity. WE2541 HG4747.J.2 - Walk 50 feet with two turns: Once standing, the ability to walk 50 feet and make two turns. Documented Answer: 06. Independent ? Patient completes the activity by him/herself with no assistance from a helper. Recommendation: 05. Setup or clean-up assistance ? Emelle sets up or cleans up; patient completes activity. Emelle assists only prior to or following the activity. CL7330 VR1720.K.2 - Walk 150 feet: Once standing, the ability to walk at least 150 feet in a corridor or similar space. Documented Answer: 06. Independent ? Patient completes the activity by him/herself with no assistance from a helper. Recommendation: 05. Setup or clean-up assistance ? Emelle sets up or cleans up; patient completes activity. Emelle assists only prior to or following the activity. IB8323 ZK8191.L.2 - Walking 10 feet on uneven surfaces: The ability to walk 10 feet on uneven or sloping surfaces (indoor or outdoor), such as turf or gravel. Documented Answer: 06. Independent ? Patient completes the activity by him/herself with no assistance from a helper. Recommendation: 05. Setup or clean-up assistance ? Emelle sets up or cleans up; patient completes activity. Emelle assists only prior to or following the activity. SE4003 SS7084.M.2 - 1 step (curb): The ability to go up and down a curb and/or up and down one step. If SOC/GARRY performance is coded 07, 09, 10 or 88, skip to IS2300Q, Picking up object. Documented Answer: 06. Independent ? Patient completes the activity by him/herself with no assistance from a helper. Recommendation: 05. Setup or clean-up assistance ? Emelle sets up or cleans up; patient completes activity. Emelle assists only prior to or following the activity. YK9934 KB2598.N.2 - 4 steps: The ability to go up and down four steps with or without a rail. IF SOC/GARRY performance is coded 07, 09, 10 or 88, skip to GE3587Z, Picking up object. Documented Answer: 06. Independent ? Patient completes the activity by him/herself with no assistance from a helper. Recommendation: 05. Setup or clean-up assistance ? Emelle sets up or cleans up; patient completes activity. Emelle assists only prior to or following the activity. ZS8764 CX7820.O.2 - 12 steps: The ability to go up and down 12 steps with or without a rail. Documented Answer: 06. Independent ? Patient completes the activity by him/herself with no assistance from a helper. Recommendation: 05. Setup or clean-up assistance ? Emelle sets up or cleans up; patient completes activity. Emelle assists only prior to or following the activity. M1028 - Comorbidities and Co-existing Conditions Recommendation: 3 - None of the above 11/18/2018 Daniela GOLDMAN documented in this encounter Care Teams Contract Preparer Relationship Specialty Start Date End Date Dominic Fernando MD [address] [place] [address] INTERNAL MEDICINE [place], [place] [id number] PCP - General 08/13/17 documented as of this encounter
--- OUTSIDE RECORDS SUMMARY | 2024-09-04 18:30 | XMS_ITS | Encounter Summary ---
Author Organization [facility] Home Care Servic es Address [address] [place] [address] Phone Care Team Providers Care Fence Post Driver Name Role Phone Dominic Fernando MD Primary Care Provider [phone] Encounter Details Date Type Department Care Team (Late st Contact Info) Description 11/13/2018 Orders Only [facility] Home Health - [address] [place] [address] Kemal Wright MD [address] [place] [address] [address] [facility] [address] [place] [address] Social History Tobacco Use Types Packs/Day Years Used Date Smoking Tobacco: Every Day Cigarettes Smokeless Tobacco: Current Comments:quitting now, 1 pac k last 2-3 days Alcohol Use Standard Drinks/Week Comments No 0 (1 standard drink = 0.6 oz pur e alcohol) Comments No Sex and Gender Information Value Date Recorded Sex Assigned at Not on file Legal Sex Female 11:26 PM PSYCHOMETRIC EXAMINER Gender Identity Not on file Sexual Orientation Not on file documented as of this encounter Plan of Treatment Not on file documented as of this encounter Visit Diagnoses Not on filedocumented in this encounter Care Teams Fence Post Driver Relationship Specialty Start Date End Date Dominic Fernando MD [address] [place], [place] [phone] PCP - General 08/13/17 documented as of this encounter
--- OUTSIDE RECORDS SUMMARY | 2024-09-04 18:31 | XMS_ITS | Encounter Summary ---
Author Organization [facility] Healthcare Address [address] [place] [address] Care Team Providers Care Economic Analysis Director Name Role Phone Dominic Fernando MD Primary Care Provider [phone] Encounter Details Date Type Department Care Team (Late st Contact Info) Description 11/11/2018 2:02 PM CUSTOMER SERVICE DISPATCHER Anesthesia Event [facility] Operating Room [address] [place] [address] [place] [address] [facility] [place] [address] Halley Lind CRNA [address] [facility] [place] [address] Anesthesia Record Procedure Summary Procedure Name Responsible [...] Right; Knee; 08/18/24 (Retired LDA, Removed/Completed by [employer] with LDA Utility); 1213 (Retired LDA, Removed/Completed by [employer] with LDA Utility) 11/11/18 1523 by Purnima [...] on file Legal Sex Female 11:26 PM CUSTOMER SERVICE DISPATCHER Gender Identity Not on file Sexual Orientation Not on file documented as of this encounter OR Notes * Anesthesia Postprocedure Evaluation - Halley Lind CRNA - 11/11/2018 4:33 PM CST Patient: Gege Vidal Procedure Summary Date: 11/11/18 Room / Location: [facility] OR [address] [place] [address] OPERATING ROOM Anesthesia Start: 1402 Anesthesia Stop: [...] acceptable Pt is: normothermic Nausea/Vomiting status: none OMER SERVICE DISPATCHER * Anesthesia Procedure Notes - Halley Lind CRNA - 11/11/2018 2:26 PM CSTAssociated Order(s): ANESTHESIA SPINAL BLOCK Spinal Block Start time: 11/11/2018 2:08 PM End time: 11/11/2018 2:13 PM Reason for block: primary anesthetic Staff: Placed by: FITTER HAND:HALLEY LIND Procedure prep: Preprocedure checklist: patient identified, [...] cm Assessment: Sensory deficit - left: T8 OMER SERVICE DISPATCHER * Anesthesia Procedure Notes - Calvin Brantley MD - 11/11/2018 12:46 PM CUSTOMER SERVICE DISPATCHER Associated Order(s): ANESTHESIA PERIPHERAL BLOCK Peripheral Block [...] patient tolerated procedure well with no complications OMER SERVICE DISPATCHER * Anesthesia Preprocedure Evaluation - Calvin Brantley [...] is Floor. Informed Consent: Discussed plan with FITTER HAND. Anesthesia plan and risks discussed with patient. Consent and Attending signature: I and/or my designee have discussed the anesthesia plan, benefits, possible alternatives, parental presence at time of induction (if indicated), and clinically relevant risks that may include dental injury, unintentional awareness, and/or other complications. The patient and/or parent/legal guardian understand, and agree to proceed. All questions answered. OMER SERVICE DISPATCHER OMER SERVICE DISPATCHER documented in this encounter Plan of Treatment Not on file documented as of this encounter Procedures Procedure Name Priority Date/Time Associated Diagnosis Comments ANESTHESIA SPINAL BLOCK Routine 11/11/2018 2:26 PM CUSTOMER SERVICE DISPATCHER Procedure Note - Halley Lind CRNA - 11/11/2018 2:26 PM CSTThis note is in progress. Spinal Block Start time: 11/11/2018 2:08 PM End time: 11/11/2018 2:13 PM Reason for block: primary anesthetic Staff: Placed by: FITTER HAND:HALLEY LIND Procedure prep: Preprocedure checklist: patient identified, [...] ANESTHESIA PERIPHERAL BLOCK Routine 11/11/2018 12:46 PM CUSTOMER SERVICE DISPATCHER Procedure Note - Calvin Brantley MD - [...] 1410, Anesthesia Intra-op Given 11/11/2018 2:10 PM CUSTOMER SERVICE DISPATCHER 3 mL bupivacaine-EPINEPHrine (MARCAINE with EPI) 0.25 %-1:200,000 preservative free injection As needed, Starting on Sat11/11/18 at 1235, Anesthesia Intra-op Given 11/11/2018 12:35 PM CUSTOMER SERVICE DISPATCHER 30 mL dexamethasone (DECADRON) injection solution Administer over 2 Minutes, As needed, Starting on Sat11/11/18 at 1457, Anesthesia Intra-op Given 11/11/2018 2:57 PM CUSTOMER SERVICE DISPATCHER 5 mg ePHEDrine injection intravenous, Administer over 5 Minutes, As needed, Starting on Sat11/11/18 at 1430, Anesthesia Intra-op Given 11/11/2018 4:15 PM CUSTOMER SERVICE DISPATCHER 10 mg Given 11/11/2018 3:00 PM CUSTOMER SERVICE DISPATCHER 10 mg Given 11/11/2018 2:30 PM CUSTOMER SERVICE DISPATCHER 10 mg fentaNYL (SUBLIMAZE) preservative free injection intravenous, As needed, Starting on Sat11/11/18 at 1230, Anesthesia Intra-op Given 11/11/2018 12:30 PM CUSTOMER SERVICE DISPATCHER 100 mc g Lactated Ringer's (LR) infusion 30 mL/hr, intravenous, Continuous, Starting on Sat11/11/18 at 1145, Pre-Op New Bag 11/11/2018 2:52 PM CUSTOMER SERVICE DISPATCHER New Bag 11/11/2018 12:07 PM CUSTOMER SERVICE DISPATCHER 30 mL/hr 30 mL/hr midazolam (VERSED) preservative free injection intravenous, Administer over 2 Minutes, As needed, Starting on Sat11/11/18 at 1230, Anesthesia Intra-op Given 11/11/2018 2:05 PM CUSTOMER SERVICE DISPATCHER 2 mg Given 11/11/2018 12:30 PM CUSTOMER SERVICE DISPATCHER 2 mg ondansetron (ZOFRAN) injection intravenous, Administer over 2 Minutes, As needed, nausea, vomiting, Starting on Sat11/11/18 at 1457, Anesthesia Intra-op Given 11/11/2018 2:57 PM CUSTOMER SERVICE DISPATCHER 4 mg propofol (DIPRIVAN) IV intravenous, Continuous PRN, Starting on Sat11/11/18 at 1420, Anesthesia Intra-op Rate/Dose Change 11/11/2018 3:45 PM CUSTOMER SERVICE DISPATCHER 65 mcg/kg/min 33.85 mL/hr Rate/Dose Change 11/11/2018 3:00 PM CUSTOMER SERVICE DISPATCHER 75 mcg/kg/min 39.0 6 mL/hr Rate/Dose Change 11/11/2018 2:53 PM CUSTOMER SERVICE DISPATCHER 80 mcg/kg/min 41.6 6 mL/hr documented in this encounter Orders Procedures Count Last Ordered Date First Orde red Date ANESTHESIA PERIPHERAL BLOCK 1 11/11/2018 ANESTHESIA SPINAL BLOCK 1 11/11/2018 documented in this encounter Care Teams Economic Analysis Director Relationship Specialty Start Date End Date Dominic Fernando MD [address] [place] [address] PCP - General 08/13/17 documented as of this encounter
--- OUTSIDE RECORDS SUMMARY | 2024-09-04 18:32 | XMS_ITS | Encounter Summary ---
Author Organization [facility] Address [address] [place] [address] Care Team Providers Care Instructor Knitting Name Role Phone Dominic Fernando MD Primary Care Provider [phone] Reason for Visit * Reason Onset Date Comments clearance received 11/06/2018 Encounter Details Date Type Department Care Team (Late st Contact Info) Description 11/06/[address] [facility] Orthopedics and Sports Medicine [address] [place] [address] Juanita Mckay PA [address] [place] [address] [address] [place] [address] clearance received Social History Tobacco Use Types Packs/Day Years Used Date Smoking Tobacco: Every Day Cigarettes Smokeless Tobacco: Current Comments:quitting now, 1 pac k last 2-3 days Alcohol Use Standard Drinks/Week Comments No 0 (1 standard drink = 0.6 oz pur e alcohol) Comments Unknown Sex and Gender Information Value Date Recorded Sex Assigned at Not on file Legal Sex Female 11:26 PM RESERVATIONS SPECIALIST Gender Identity Not on file Sexual Orientation Not on file documented as of this encounter Miscellaneous Notes * Telephone Encounter - Ever Nino PA - 11/07/2018 12:10 PM RESERVATIONS SPECIALIST That's great thank you RVATIONS SPECIALIST * Telephone Encounter - Tawana Wood MA - 11/07/2018 7:31 AM RESERVATIONS SPECIALIST I have a new clearance from PCP And a clearance from hematology dated in July, do I need any others? RVATIONS SPECIALIST * Telephone Encounter - Ever Nino PA - 11/06/2018 3:35 PM RESERVATIONS SPECIALIST So she has all the clearances she needed? RVATIONS SPECIALIST * Telephone Encounter - Tawana Wood MA - 11/06/2018 2:42 PM RESERVATIONS SPECIALIST Patient stopped ASA on and will stop xarelto on Saturday per hematology, patient notified clearance has been received RVATIONS SPECIALIST documented in this encounter Plan of Treatment Not on file documented as of this encounter Visit Diagnoses Not on filedocumented in this encounter Care Teams Instructor Knitting Relationship Specialty Start Date End Date Dominic Fernando MD [address] [facility] [address] [place] [address] PCP - General 08/13/17 documented as of this encounter
--- OUTSIDE RECORDS SUMMARY | 2024-09-04 18:32 | XMS_ITS | Encounter Summary ---
Author Organization [facility] Address [address] [facility] [address] [place] [address] Care Team Providers Care Medical Receptionist Biller Name Role Phone Dominic Fernando MD Primary Care Provider [phone] Encounter Details Date Type Department Care Team (Late st Contact Info) Description 11/07/[address] [facility] Medical [facility] Orthopedics and Sports Medicine [address] [place] [phone] Ever Nino PA [address] [place] [address] [address] Social History Tobacco Use Types Packs/Day Years Used Date Smoking Tobacco: Every Day Cigarettes Smokeless Tobacco: Current Comments:quitting now, 1 pac k last 2-3 days Alcohol Use Standard Drinks/Week Comments No 0 (1 standard drink = 0.6 oz pur e alcohol) Comments Unknown Sex and Gender Information Value Date Recorded Sex Assigned at Not on file Legal Sex Female 11:26 PM LIMOUSINE AND HEARSE UPHOLSTERER Gender Identity Not on file Sexual Orientation [...] 9:06 AM CST PCP and patient notified USINE AND HEARSE UPHOLSTERER documented in this encounter Plan of Treatment Not on file documented as of this encounter Visit Diagnoses Not on filedocumented in this encounter Care Teams Medical Receptionist Biller Relationship Specialty Start Date End Date Dominic Fernando MD [address] [facility] [facility] [place] [id number] PCP - General 08/13/17 documented as of this encounter
--- OUTSIDE RECORDS SUMMARY | 2024-09-04 18:32 | XMS_ITS | Encounter Summary ---
Author Organization [facility] Address [address] [facility] [address] [place] [address] Care Team Providers Care Box Toe Flanger Stitchdowns Name Role Phone Dominic Fernando MD Primary Care Provider [phone] Reason for Visit * Reason Onset Date Comments clearance ck for surgery 11/06/2018 Encounter Details Date Type Department Care Team (Late st Contact Info) Description 11/06/2018 Telephone [facility] Orthopedics and Sports Medicine [address] [place] [phone] Kemal Wright MD [address] [place] [address] [address] [address] clearance ck for surgery Social [...] on file Legal Sex Female 11:26 PM TOMB MAKER HELPER Gender Identity Not on file Sexual Orientation Not on file documented as of this encounter Miscellaneous Notes * Telephone Encounter - Tawana Wodo MA - 11/06/2018 11:20 AM TOMB MAKER HELPER Checking on clearance for patient MAKER HELPER documented in this encounter Plan of Treatment Not on file documented as of this encounter Visit Diagnoses Not on filedocumented in this encounter Care Teams Box Toe Flanger Stitchdowns Relationship Specialty Start Date End Date Dominic Fernando MD [address] [facility] [address] [facility] [address] [place] [address] PCP - General 08/13/17 documented as of this encounter
--- OUTSIDE RECORDS SUMMARY | 2024-09-04 18:32 | XMS_ITS | Encounter Summary ---
Author Organization [facility] Address [address] [facility] [address] [place] [address] Care Team Providers Care Shell Maker Lockstitch Name Role Phone Dominic Fernando MD Primary Care Provider [phone] Reason for Referral * (Routine) - Closed Specialty Diagnoses / Procedures Referred By Contac t Referred To Contact Procedures 48 HR Holter Monitor [facility] [address] [facility] [address] [place] [address] Phone: tel: fax: [facility] Referral ID Status Reason Start Date Expiration Date Visits Re quested Visits Authorized [id number] Closed 11/06/2018 05/17/[address] SYSTEMS ANALYST Encounter Details Date Type Department Care Team (Late st Contact Info) Description 11/06/2018 Orders Only [facility] [address] [facility] [address] [place] [address] Adam Laboy MD [address] [place] [address] Social History Tobacco Use Types Packs/Day Years Used Date Smoking Tobacco: Every Day Cigarettes Smokeless Tobacco: Current Comments:quitting now, 1 pac k last 2-3 days Alcohol Use Standard Drinks/Week Comments No 0 (1 standard drink = 0.6 oz pur e alcohol) Comments Unknown Sex and Gender Information Value Date Recorded Sex Assigned at Not on file Legal Sex Female 11:26 PM 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
--- OUTSIDE RECORDS SUMMARY | 2024-09-04 18:32 | XMS_ITS | Encounter Summary ---
Author Organization [facility] Healthcare Address [address] [place] [address] Care Team Providers Care Contract Administration Coordinator Name Role Phone Dominic Fernando MD Primary Care Provider [phone] Encounter Details Date Type Department Care Team (Late st Contact Info) Description 11/11/2018 1:15 PM HAIRCUTTER - 11/11/2018 3:30 PM HAIRCUTTER Surgery [facility] Operating Room [address] [place] [address] Kemal Wright MD [address] [place] [address] [address] FRYE [address] [address] Right total knee arthroplasty Surgery Details Date/Time [...] on file Legal Sex Female 11:26 PM HAIRCUTTER Gender Identity Not on file Sexual Orientation Not on file documented as of this encounter Last Filed Vital Signs Vital Sign Reading Time Taken Comments Blood Pressure 124/56 11/11/2018 12:35 PM HAIRCUTTER Pulse 66 11/11/2018 12:35 PM HAIRCUTTER Temperature 37 ??C (98.6 ??F) 11/11/2018 11:01 AM HAIRCUTTER Respiratory Rate 22 11/11/2018 12:35 PM HAIRCUTTER Oxygen Saturation 100% 11/11/2018 12:35 PM HAIRCUTTER Inhaled Oxygen Concentration - - Weight 86.8 kg (191 lb 5.8 oz) 11/11/2018 11:01 AM HAIRCUTTER Height 160 cm (5' 3 ) 11/11/2018 11:01 AM HAIRCUTTER Body Mass Index 33.9 11/11/2018 11:01 AM HAIRCUTTER documented in this encounter Discharge Summaries * Ever Nino PA - 11/12/2018 3:28 PM CST Inpatient Discharge Summary BRIEF OVERVIEW Admitting Provider: Kemal Wright MD Discharge Provider: Kemal Wright MD Primary Care Physician at Discharge: Dominic Fernando MD [phone] Admission Date: 11/11/2018 Discharge Date: 11/12/2018 Admission Location: [facility] Primary Discharge Diagnosis: Aftercare following right [...] Home Health Primary disciplines requested: Physical Therapy Prison Secondary disciplines requested: Occupational Therapy Home Health [...] provider for: severe uncontrolled pain Walker The vwvb-lf-ddbv evaluation was performed on: 11/11/2018 THANK YOU for choosing us to provide your health care. Your HEALTH AND SAFETY are important to us. We hope you feel your care on SCU was ALWAYS EXCELLENT! Please call SCU at [phone] if you have any questions regarding your [...] LEVOTHROID Take 112 mcg by mouth early childhood coordinator before breakfast. oxyCODONE-acetaminophen 5-325 mg per tablet [...] [facility] Decent Contact Information for Follow-ups [facility] Services Specialty: Home Health and Hospice [address] [place] [id number] Next Steps: Follow up Questions: Service Line: Home Health Primary disciplines requested: Physical Therapy Prison Secondary disciplines requested: Occupational Therapy Home Health [...] Authorization ELIZABETH Ray Specialty: Orthopedic Surgery, Physician Assembler [employer] [address] [place] [address] Next Steps: Go on 11/25/2018 Cosigned by Kemal Wright MD at 11/13/2018 10:23 AM HAIRCUTTER CUTTER CUTTER documented in this encounter Discharge Instructions * Discharge Instr - Other Orders* Katlin Valencia RN - 11/12/2018 11:48 AM HAIRCUTTER THANK YOU for choosing us to provide your health care. Your HEALTH AND SAFETY are important to us. We hope you feel your care on SCU was ALWAYS EXCELLENT! Please call SCU at [phone] if you have any questions regarding your care. Wishing you continued improvement during your recovery. The Staff of The Surgical Care Unit . Flakita Starks, Dede Almaraz Sarah, Scott, Lexie, Katlin, Jaz, Nithya, Madison, Cee, Suzan, uL,Carmen, Ute and Salud. CUTTER * Attachments The following attachments cannot be sent through Care Everywhere. * Joint Replacement Surgery (Discharge Care) (Burkinan) * How to Use an Incentive Spirometer (Discharge Care) (Burkinan) * DONA Hose (Discharge Care) (Burkinan) * Ascorbic Acid (Vitamin C) (By mouth) (Burkinan) * Celecoxib (By mouth) (Burkinan) * Iron Supplements (By mouth) (Burkinan) * Oxycodone/Acetaminophen (By mouth) (Burkinan) documented in this encounter Medications at Time of Discharge atorvastatin (LIPITOR) 40 mg tablet Take 40 mg by mouth daily. 10/09/2018 cyanocobalamin (Vitamin B-12) 1,000 mcg tabletIndications :Prevention of Vitamin B12 Deficiency Take 1,000 mcg by mouth daily. folic acid (FOLVITE) 1 mg tablet Take 1 mg by mouth daily. levothyroxine (SYNTHROID, LEVOTHROID) 112 mcg tablet Take 112 mcg by mouth early childhood coordinator before breakfast. 07/21/[address] (PROTONIX) 20 [...] this encounter Progress Notes * Emily Gurrola, [facility] - 11/12/2018 2:38 PM CST Patient has been on 20 mg rivaroxaban for years (hx recurrent VTEs, stroke). She is restarting her 20 mg dose post-op. Student discussed s/sx of a clot, s/sx of a bleed, and drug interactions. She didn't have any questions and was provided a handout on Xarelto for reference. CUTTER * Marilee Powell, OT - 11/12/2018 11:57 [...] Equipment Wheeled walker Prior Function Level of Assumption Independent with ADLs;Independent with homemaking with ambulation (disability due to shdr/neck/back limitations work/accident) Lives With Son;Other (Comment) (DIL) Receives Help From Family Driving Yes Current License Yes UE Dressing UE Dressing: Level of assistance Set up UE Dressing: Assistance with Thread RUE;Thread LUE;asset recovery specialist head;Pull down in back LE Dressing LE [...] to Discharge No OT Evaluation Complete Yes CUTTER * James Aviles, PT - 11/12/2018 9:34 [...] use at PLOF) Prior Function Level of Assumption Independent with ADLs;Independent functional transfers;Independent with ambulation [...] Scales Pasero Opioid-Induced Sedation Scale (POSS) 1 CUTTER * Theodore Raya, [facility] - 11/11/2018 7:52 PM CST Xarelto dose changed to 10mg po qd for 12 days post knee op for vte prophylaxis CUTTER * Robel Gurrola, Self [facility] - 11/11/2018 11:18 AM CST Dose adjusted per surgical prophylaxis protocol, for weight less than 80 kg give 1000 mg, for weight 80 kg or greater give 1500 mg beginning 1-2 hours prior to incision. CUTTER documented in this encounter H&P Notes * [...] and Depuy cement and quick set cement CUTTER Source Note - Ever Nino PA - 11/06/2018 4:19 PM HAIRCUTTER [facility] Orthopedics and Sports Medicine Janine Vidal Chief [...] right Total knee arthroplasty on 11/11/18 at [facility]. It is estimated they will have a [...] Kemal Wright MD at 11/09/2018 10:20 AM HAIRCUTTER CUTTER CUTTER * Ever Nino PA - 11/06/2018 4:19 PM CST [facility] Orthopedics and Sports Medicine Janine Vidal Chief [...] right Total knee arthroplasty on 11/11/18 at [facility]. It is estimated they will have a [...] Kemal Wright MD at 11/09/2018 10:20 AM HAIRCUTTER CUTTER CUTTER documented in this encounter Nursing Notes * Lexie Kurtz RN - 11/12/2018 4:19 PM CST 1510 Discharged to home in stable condition. Escorted to car per wheelchair. CUTTER * Lexie Kurtz RN - 11/12/2018 1:56 PM CST Discharge instructions given with home pharmacy delivery at bedside. No new equipment issued. All belongings packed. IV removed. Son here to take home. CUTTER documented in this encounter Miscellaneous Notes * Plan of Care - Zaynab Luevano PTA - 11/12/2018 2:34 PM CST Problem: PT Misc Goal[place] [facility] Pt to ambulate 300' indep with fww consistently, to increase functional independence. Outcome: Progressing CUTTER * Plan of Care - Lexie Kurtz RN - 11/12/2018 1:55 PM CST Goals: Clinical Goals for the Shift: pt safety, comfort, mobility, VSS, oral intake and UOP qs Summary: all goals met for stable discharge to home CUTTER * Plan of Care - Mariela Yang RN - 11/12/2018 11:04 AM CST I spoke with pt and she lives with son and [id number] in [place]. She lives in the basement. Its a 2 level home and 2 stairs to enter and then steps to basement...approximately 10. She was indep with adls and ambulation. She has a wheeled walker and owns a wc, scooter, cane and BSC also and wants [facility], i sent referral to Heather for home care. I had explained pt choice list and she was fine with [facility]...she did NOT want [facility]. Goal is to return home with help of her family. CUTTER * Plan of Care - Heather Lombardi RN - 11/12/2018 11:00 AM CST PT SET UP FOR HOME CARE WITH [facility] [phone] CUTTER * Plan of Care - Berto Jacobsen [...] Sensory: ??? Pain level will decrease Progressing CUTTER * Perioperative Nursing Note - Tracy Austin RN - 11/11/2018 5:04 PM CST 1645 radiology staff performed x ray at bedside. r knee flexed to 90 degrees with pillows. CUTTER * Op Note - Kemal Wright MD [...] Implant Name Type Inv. Item Serial No. Melter Assistant Lot No. LRB No. Used ISLAS [employer] NEPHEW/RICHCO/ORTHO [id number] LEGION 9MM DISHED KNEE 3-4 INSERT TIBIAL XLPE - [id number] & NEPHEW/RICHCO/ORTHO [id number] LEGION 9MM DISHED KNEE 3-4 INSERT TIBIAL XLPE [employer]las [employer] Nephew/Richco/Ortho [id number] Right 1 [employer]PHEW/RICHCO/ORTHO [id number] LEGION CEMENTED MALE TAPER KNEE RIGHT 4 BASEPLATE TIBIAL TITANIUM - [id number] ISLAS [employer] NEPHEW/RICHCO/ORTHO [id number] LEGION CEMENTED MALE TAPER KNEE RIGHT 4 BASEPLATE TIBIAL TITANIUM Islas [employer] Nephew/Richco/Ortho [id number] Right 1 [id number] size 4 right cruciate retaining legion oxinium femoral componenet Islas [employer] Nephew [id number] Right 1 [employer] [id number] PALACOS R+G HIGH VISCOSITY CEMENT BONE GENTAMICIN ARTHROPLASTY - [id number] [employer] [id number] PALACOS R+G HIGH VISCOSITY CEMENT BONE GENTAMICIN ARTHROPLASTY [employer]See[employer] [id number] Right 1 OPERATIVE DETAILS Estimated Blood Loss: [...] Wright MD Date: 11/11/2018 Time: 8:47 PM CUTTER * Pre-Procedure Instructions - Brigette Sanchez RN - 10/28/2018 10:38 AM HAIRCUTTER We are pleased that you and your doctor have chosen [facility] for your surgery. We hope that the [...] mcg tablet ?? Use no make-up, nail [place] citizen, lotions, oils or powders on your skin. [...] posted at the top of the page. CUTTER documented in this encounter Plan of Treatment Not on file documented as of this encounter Procedures Procedure Name Priority Date/Time Associated Diagnosis Comments XR KNEE RIGHT 1 OR 2 VIEWS STAT 11/11/2018 4:44 PM HAIRCUTTER ARTHROPLASTY TOTAL KNEE 11/11/2018 1:52 PM HAIRCUTTER Primary osteoarthritis of right knee Special Needs Islas [employer]hew Black Beauty, TENS, CPM in hospital, cooling unit, 1 liter beta rinse, and Depuy cement and quick set cement APTT STAT 11/11/2018 11:54 AM HAIRCUTTER PROTIME-INR STAT 11/11/2018 11:54 AM HAIRCUTTER SURGICAL PATHOLOGY Routine 11/11/2018 9: 58 AM HAIRCUTTER Primary osteoarthritis of right knee documented in this encounter Results * XR Knee Right 1 or 2 View (11/11/2018 4:44 PM HAIRCUTTER) Anatomical Region Laterality Modality Lower Extremities, Knee Right Computed Radiography 11/11/2018 4:47 PM HAIRCUTTER Impressions 11/11/2018 4:48 PM HAIRCUTTER 1. ??Status post right total knee arthroplasty; femoral and tibial components only. Electronically signed by: Yann Trinidad Jr., M.D. Narrative 11/11/2018 4:48 PM HAIRCUTTER XR KNEE RIGHT 1 OR 2 VIEWS [...] Res ult * aPTT (11/11/2018 11:54 AM HAIRCUTTER) aPTT 26.6 25.0 - 37.0 sec [facility] ([place]) Blood specimen (specimen) 11/11/2018 11:54 AM HAIRCUTTER 11/11/2018 12:07 PM HAIRCUTTER Narrative [facility] ([place]) - 11/11/2018 12:25 PM HAIRCUTTER Iglesia Sherman MD LAB BLOOD ORDERABLES F inal Result [facility] J [facility] ([place]) 1 [facility] Department [place] [address] * Protime-INR (11/11/2018 11:54 AM HAIRCUTTER) PT 11.3 9.5 - 13.0 sec JOSE [...] 2015. Blood specimen (specimen) 11/11/2018 11:54 AM HAIRCUTTER 11/11/2018 12:07 PM HAIRCUTTER Narrative [facility] ([place]) - 11/11/2018 12:22 PM HAIRCUTTER us Iglesia Sherman MD LAB BLOOD ORDERABLES F inal Result JOSE J [facility] 1 [facility] Department [place] [address] * Surgical pathology (11/11/2018 9:58 AM HAIRCUTTER) Tissue (Bone Fragment(s),) 11/11/2018 2:57 PM HAIRCUTTER Narrative PATHOLOGY [facility] ([place]) - 11/17/2018 2:42 PM HAIRCUTTER EPIC results best viewed via link to PDF [facility] Department of Pathology [address] [place] [address] Final Report Patient Name: ??JANINE VIDAL Address: ??[address] [place] [address], ??[place], [place] ??[address] Gender: ??F : ??1960 (Age: 58) Service: ??Surgery Location: ??[facility] Hospital #: ??[id number] Patient Type: ??[facility] Accession # ?[id number] Taken: ??11/11/2018 Received: ??11/12/2018 Accessioned: ??11/12/2018 Reported: ??11/17/2018 Physician(s):Dr. Kemal Wright M.D. Diagnosis: Bone and tissue, right knee, total knee arthroplasty: ? -Degenerative joint disease. Osvaldo eKssler M.D. Report Electronically Reviewed and Signed Out [...] determined by the Surgical Pathology Department at [facility] as part of an ongoing quality specialist program and in compliance with federally mandated [...] characteristics determined by the Surgical Pathology Department [facility]. ??It has not been cleared or approved by the U. S. Food and Drug Administration. Kemal Wright MD LAB PATHOLOGY ORDERABLES Fin al Result PATHOLOGY [facility] [place]) [address] [place] [address] * ECG 12 lead (11/04/2018 6:42 AM HAIRCUTTER) 11/03/2018 12:4 6 PM HAIRCUTTER Narrative [facility] - 11/03/2018 9:39 PM HAIRCUTTER Vent Rate: 77 bpm RR Interval: 778 msec IA Interval: 194 msec QRS Duration: 86 msec QT Interval: 365 msec QTC Interval: 396 msec P-R-T [place]: 67 - 6 - 74 degrees SINUS RHYTHM LOW QRS VOLTAGE IN PRECORDIAL LEADS ??[QRS DEFLECTION < 1.0 mV IN CHEST LEADS] NONSPECIFIC T-WAVE ABNORMALITY BORDERLINE ECG Electronically Signed By: Darion Lang MD Kemal Wright MD ECG ORDERABLES Final Result [facility] * (ABNORMAL) Vitamin D 25 hydroxy (11/03/2018 1:00 PM HAIRCUTTER) Vitamin D 25-OH 12(L) 30 - 80 ng/mL [facility] ([place]) Blood specimen (specimen) 11/03/2018 1:00 PM HAIRCUTTER 11/03/2018 1:14 PM HAIRCUTTER Narrative [facility] ([place]) - 11/03/2018 2:20 PM HAIRCUTTER Kemal Wright MD LAB BLOOD ORDERABLES Final R esult [facility] ([place]) 1 [facility] Department [place] [address] * (ABNORMAL) Urinalysis reflex to microscopic and culture Urine, clean voided (11/03/2018 1:00 PM HAIRCUTTER) Color, ur Yellow Yellow [facility] ([place]) [...] ([place]) Urine, clean voided 11/03/2018 1:00 PM HAIRCUTTER 11/03/2018 1:14 PM HAIRCUTTER Narrative [facility] ([place]) - 11/03/2018 1:22 PM HAIRCUTTER ?? Urine pH is affected by diet, medications, systemic acid-base disturbances, and renal tubular function. ??pH may affect urinary stone formation. ??For example, urine pH below 6.0 may help reduce the tendency for calcium phosphate stones and pH greater than 6.0 may reduce the tendency for uric acid stone formation. Source: [facility] [employer]. Last revised 09-26-2017 Kemal Wright MD LAB MICROBIOLOGY - GENERAL O RDERABLES Final Result Performing Organization Address [facility] Co de Phone Number JOSE J [facility]FF[facility] ([place]) 1 [facility] [place] [address] * (ABNORMAL) aPTT (11/03/2018 1:00 PM HAIRCUTTER) aPTT 42.4(H) 25.0 - 37.0 sec [facility]SE J [facility] ([place]) Blood specimen (specimen) 11/03/2018 1:00 PM HAIRCUTTER 11/03/2018 1:14 PM HAIRCUTTER Narrative [facility] ([place]) - 11/03/2018 2:09 PM HAIRCUTTER Kemal Wright MD LAB BLOOD ORDERABLES Final R esult Performing Organization Address City/[facility]/ZIP Co de Phone Number JOSE J [facility]FF[facility] ([place]) 1 [facility] [place] [address] * (ABNORMAL) Protime-INR (11/03/2018 1:00 PM HAIRCUTTER) PT 17.3(H) 9.5 - 13.0 sec [facility] ([place]) INR 1.52(H) 0.90 - 1.20 [facility] ([place]) Comment: Interpretive Data Recommended ranges for Protime INR: 2.0 - 3.0 Most indications for Warfarin therapy (e.g. Treatment of DVT, PE, bioprosthetic valve replacement, prophylaxis venous thrombosis, atrial fibrillation). 2.5 - 3.5 Mechanical mitral valve or dual mechanical mitral and Aortic valve replacement. Current Interpretive Data was last revised on 2015. Blood specimen (specimen) 11/03/2018 1:00 PM HAIRCUTTER 11/03/2018 1:14 PM HAIRCUTTER Narrative [facility] ([place]) - 11/03/2018 2:06 PM HAIRCUTTER Kemal Wright MD LAB BLOOD ORDERABLES Final R esult [facility] ([place]) 1 [facility] Department [place] [address] * (ABNORMAL) Comprehensive metabolic panel (11/03/2018 1:00 PM HAIRCUTTER) Pathologist [facility] Sodium 141 135 - 145 mmol/L [facility] ([place]) Potassium, pl 3.3 3.3 - 4.9 mmol/L [facility] ([place]) Chloride 105 97 - 110 mmol/L [facility] ([place]) CO2 23 22 - 32 mmol/L [facility] ([place]) Anion gap 13 2 - 15 mmol/L [facility] ([place]) BUN 6(L) 8 - 25 mg/dL [facility] ([place]) Creatinine 0.93 0.60 - 1.10 mg/dL [facility] ([place]) Glucose 102 70 - 199 mg/dL [facility] ([place]) Comment: Interpretive Data Fasting [...] ([place]) Blood specimen (specimen) 11/03/2018 1:00 PM HAIRCUTTER 11/03/2018 1:14 PM HAIRCUTTER Narrative [facility] ([place]) - 11/03/2018 2:04 PM HAIRCUTTER us Kemal Wright MD LAB BLOOD ORDERABLES Final R esult [facility] ([place]) 1 [facility] Department [place] [address] * CBC with auto differential (11/03/2018 1:00 PM HAIRCUTTER) WBC 7.6 3.8 - 9.9 K/cumm [facility] [...] ([place]) Blood specimen (specimen) 11/03/2018 1:00 PM HAIRCUTTER 11/03/2018 1:14 PM HAIRCUTTER Narrative [facility] ([place]) - 11/03/2018 1:19 PM HAIRCUTTER us Kemal Wright MD LAB BLOOD ORDERABLES Final R esult [facility] ([place]) 1 [facility] Department [place] [address] documented in this encounter Visit Diagnoses Diagnosis [...] 2.5 mg, nebulization, 2 times daily PRN (director of corporate responsibility), wheezing, Starting on Sat11/11/18 at 1945 ascorbic acid (VITAMIN C) tablet/chewable tablet 500 mg 500 mg, oral, 2 times daily, First dose on Sat11/11/18 at 2100, Indications: Vitamin deficiency preventionIndications:Vitamin deficiency prevention Given 11/12/2018 9:27 AM HAIRCUTTER 500 mg Given 11/11/2018 8:38 PM HAIRCUTTER 500 mg atorvastatin (LIPITOR) tablet 40 mg 40 mg, oral, Daily, First dose on Sat11/11/18 at 2100 Given 11/11/2018 9:26 PM HAIRCUTTER 40 mg bacitracin 100,000 Units, polymyxin B 1,000,000 Units in sodium chloride 0.9% 1,000 mL irrigation solution As needed, Starting on Sat11/11/18 at 1454, Intra-Op Given 11/11/2018 2:54 PM HAIRCUTTER 1,000 mL Surgical Site bacitracin 100,000 Units, polymyxin B 1,000,000 Units in sodium chloride 0.9% 1,000 mL irrigation solution As needed, Starting on Sat11/11/18 at 1455, Intra-Op Given 11/11/2018 2:55 PM HAIRCUTTER Surgical Site celecoxib (CeleBREX) capsule 200 mg 200 mg, oral, 2 times daily, First dose on Sat11/11/18 at 2100, Indications: Postoperative Acute Pain, PainIndications:Postoperative Acute Pain,Pain Given 11/12/2018 9:27 AM HAIRCUTTER 200 mg Given 11/11/2018 8:38 PM HAIRCUTTER 200 mg celecoxib (CeleBREX) capsule 400 mg 400 mg, oral, Once, On Sat11/11/18 at 1145, For 1 dose, Pre-Op, Hold if elevated creatine, Indications: PainIndications:Pain Given 11/11/2018 1:48 PM HAIRCUTTER 400 mg cetirizine (ZyrTEC) tablet 10 mg 10 mg, oral, Daily, First dose on Sat11/11/18 at 2014 Given 11/12/2018 9:27 AM HAIRCUTTER 10 mg cyanocobalamin (Vitamin B-12) tablet 1,000 mcg 1,000 mcg, oral, Daily, First dose on Sat11/11/18 at 2015, Indications: Prevention of Vitamin B12 DeficiencyIndications:Prevention of Vitamin B12 Deficiency Given 11/12/2018 9:28 AM HAIRCUTTER 1,000 mcg Given 11/11/2018 9:26 PM HAIRCUTTER 1,000 mcg diphenhydrAMINE (BENADRYL) injection 12.5 mg 12.5 mg, intravenous, Every 15 min PRN, itching, Starting on Sat11/11/18 at 1624, For 2 doses, Phase I, Max cumulative dose 50 mg., Indications: ItchingIndications:Itching Given 11/11/2018 6:29 PM HAIRCUTTER 12.5 mg Right Hand diphenhydrAMINE (BENADRYL) injection 25 mg 25 mg, intravenous, Administer over 2 Minutes, Every 10 min PRN, other, reman's, Starting on Sat11/11/18 at 1127, For 2 doses, Pre-Op Given 11/11/2018 12:03 PM HAIRCUTTER 25 mg diphenhydrAMINE (BENADRYL) injection 25 mg 25 mg, intravenous, Administer over 2 Minutes, Once, On Sat11/11/18 at 2300, For 1 dose, Indications: Hx daryl syndromeIndications:Hx daryl syndrome Given 11/11/2018 11:30 PM HAIRCUTTER 25 mg ferrous sulfate tablet 325 mg 325 mg (65 mg of elemental iron), oral, Daily with breakfast, First dose on Sat11/12/18 at 0800, Indications: Iron Deficiency Anemia, Anemia preventionIndications:Iron Deficiency Anemia,Anemia prevention Given 11/12/2018 9:28 AM HAIRCUTTER 325 mg HYDROcodone-acetaminophen (NORCO) 5-325 mg per tablet 1-2 tablet 1-2 tablet, oral, Every 4 hours PRN, 1st line for pain, Starting on Sat11/11/18 at 1935, Indications: PainIndications:Pain Given 11/12/2018 1:05 AM HAIRCUTTER 1 tablet Lactated Ringer's (LR) infusion 30 mL/hr, intravenous, Continuous, Starting on Sat11/11/18 at 1145, Pre-Op New Bag 11/11/2018 2:52 PM HAIRCUTTER New Bag 11/11/2018 12:07 PM HAIRCUTTER 30 mL/hr 30 mL/hr levothyroxine (SYNTHROID, LEVOTHROID) tablet 112 mcg 112 mcg, oral, Daily (early AM), First dose on Sat11/12/18 at 0600, Administer on an empty stomach, preferably 30 minutes before breakfast. Take 4 hours apart from antacids, iron and calcium products. Given 11/12/2018 5:34 AM HAIRCUTTER 112 mcg ondansetron (ZOFRAN) injection 4 mg [...] Vomiting,nausea and vomiting Given 11/12/2018 10:54 AM HAIRCUTTER 4 mg Given 11/11/2018 9:29 PM HAIRCUTTER 4 mg oxyCODONE ER (OxyCONTIN) extended release tablet 20 mg 20 mg, oral, Once, On Sat11/11/18 at 1145, For 1 dose, Pre-Op, Do not crush, chew, cut, dissolve, open or otherwise manipulate tablet/capsule., Indications: PainIndications:Pain Given 11/11/2018 1:48 PM HAIRCUTTER 20 mg oxyCODONE-acetaminophen (PERCOCET) 5-325 mg per tablet 1-2 tablet 1-2 tablet, oral, Every 4 hours PRN, 2nd line for pain, Starting on Sat11/11/18 at 1935, Indications: PainIndications:Pain Given 11/12/2018 6:33 AM HAIRCUTTER 1 ta blet Given 11/12/2018 2:19 AM HAIRCUTTER [address] (PROTONIX) extended release tablet 40 mg 40 mg, oral, Daily, First dose on Sat11/11/18 at 2030, Do not crush, chew, cut, dissolve, open or otherwise manipulate tablet/capsule., Indications: Treatment of Non-Bleeding Gastric DisorderIndications:Treatment of Non-Bleeding Gastric Disorder Given 11/12/2018 9:28 AM HAIRCUTTER 40 mg Given 11/11/2018 8:38 PM HAIRCUTTER 40 mg povidone-iodine (BETADINE) 120 mL in sodium chloride 0.9 % 1,000 mL solution As needed, Starting on Sat11/11/18 at 1455, Intra-Op Given 11/11/2018 2:55 PM HAIRCUTTER 1,120 mL Surgical Site rivaroxaban (XARELTO) tablet [...] Indications: constipationIndications:constipat ion Given 11/12/2018 9:29 AM HAIRCUTTER 2 tablets Given 11/11/2018 8:38 PM HAIRCUTTER 2 tablets sodium chloride 0.9 % irrigation As needed, Starting on Sat11/11/18 at 1456, Intra-Op Given 11/11/2018 2:56 PM HAIRCUTTER 3,000 mL Surgical Site sodium chloride 0.9% infusion 100 mL/hr, intravenous, Continuous, Starting on Sat11/11/18 at 2015, DISCONTINUE WHEN TOLERATING ORAL FLUIDS New Bag 11/12/2018 5:34 AM HAIRCUTTER 100 mL/hr 100 mL/hr New Bag 11/11/2018 8:40 PM HAIRCUTTER 100 mL/hr 100 mL/hr tranexamic acid (CYKLOKAPRON) 1,000 mg/10 mL (100 mg/mL) solution As needed, Starting on Sat11/11/18 at 1457, Intra-Op Given 11/11/2018 2:57 PM HAIRCUTTER 3,000 mg Surgical Site vancomycin (VANCOCIN) solution As needed, Starting on Sat11/11/18 at 1456, Intra-Op Given 11/11/2018 2:56 PM HAIRCUTTER 1,000 mg Surgical Site vancomycin 1500 mg/250 mL in sodium chloride 0.9% (premix) 1,500 mg 1,500 mg, intravenous, Administer over 90 Minutes, Once, On Sat11/12/18 at 0000, For 1 dose, Administer 12 hours after pre-procedure dose., Indications: Prophylaxis, SurgicalIndications:Prophylaxi s, Surgical New Bag 11/12/2018 12:40 AM HAIRCUTTER 1,500 mg vancomycin 1500 mg/250 mL in [...] s, Surgical New Bag 11/11/2018 12:04 PM HAIRCUTTER 1,500 mg documented in this encounter Discontinued [...] Recently Administered Medications Times are shown in HAIRCUTTER. Scheduled Medication Order 11/10/2018 11/11/2018 11/12/2018 ascorbic [...] 2.5 mg, nebulization, 2 times daily PRN (director of corporate responsibility), wheezing, Starting on Sat11/11/18 at 1945 bacitracin [...] 11/11/2018 documented in this encounter Care Teams Contract Administration Coordinator Relationship Specialty Start Date End Date Dominic Fernando MD [address] [facility] [address] [place] [address] PCP - General 11/28/17 documented as of this encounter
--- OUTSIDE RECORDS SUMMARY | 2024-09-04 18:32 | XMS_ITS | Encounter Summary ---
Author Organization [facility] Medical Group Address [address] [facility] [address] [place] [address] Care Team Providers Care Journeyman Wireman Name Role Phone Dominic Fernando MD Primary Care Provider [phone] Reason for Visit * Reason Onset Date Comments called PCP 11/05/2018 Encounter Details Date Type Department Care Team (Late st Contact Info) Description 11/05/2018 Telephone [facility] Orthopedics and Sports Medicine [address] [facility] [address] [place] [address] Shruti Mooney MA called PCP [...] on file Legal Sex Female 11:26 PM MOVERS Gender Identity Not on file Sexual Orientation Not on file documented as of this encounter Miscellaneous Notes * Telephone Encounter - Shruti Mooney MA - 11/05/2018 1:27 PM CST Called PCP to check on clearance for her upcoming surgery next week. Dr. Fernando is supped to be reviewing reports and giving clearance RS documented in this encounter Plan of Treatment Not on file documented as of this encounter Visit Diagnoses Not on filedocumented in this encounter Care Teams Journeyman Wireman Relationship Specialty Start Date End Date Dominic Fernando MD [address] [email or web address] [address] [place] [address] PCP - General 08/13/17 documented as of this encounter
--- OUTSIDE RECORDS SUMMARY | 2024-09-04 18:32 | XMS_ITS | Encounter Summary ---
Author Organization [facility] Medical Group Address [address] [facility] [address] [place] [address] Care Team Providers Care Chicken Hanger Name Role Phone Dominic Fernando MD Primary Care Provider [phone] Reason for Visit * Reason Onset Date Comments Surgical Clearance 11/06/2018 second pcp cl earance faxed to hospital Encounter Details Date Type Department Care Team (Late st Contact Info) Description 11/06/2018 Documentation [facility] Orthopedics and Sports Medicine [address] [place] [address] Tawana Wood MA Surgical Clearance (second pcp [...] on file Legal Sex Female 11:26 PM ELEMENTARY PRINCIPAL Gender Identity Not on file Sexual Orientation Not on file documented as of this encounter Progress Notes * Tawana Wood MA - 11/06/2018 2:38 PM CST Clearance faxed to hospital ENTARY PRINCIPAL documented in this encounter Plan of Treatment Not on file documented as of this encounter Visit Diagnoses Not on filedocumented in this encounter Care Teams Chicken Hanger Relationship Specialty Start Date End Date Dominic Fernando MD [address] [facility] [address] [place] [address] PCP - General 08/13/17 documented as of this encounter
--- OUTSIDE RECORDS SUMMARY | 2024-09-04 18:33 | XMS_ITS | Encounter Summary ---
Author Organization [facility] Healthcare Address [address] [place] [address] Care Team Providers Care Sow Farm Technician Name Role Phone Dominic Fernando MD Primary Care Provider [phone] Encounter Details Date Type Department Care Team (Late st Contact Info) Description 11/03/2018 Documentation [facility] Physical Therapy [address] [place] [address] Chanel Longoria, ELECTRONIC GLUING MACHINE OPERATOR Social History Tobacco Use Types Packs/Day Years Used Date Smoking Tobacco: Every Day Cigarettes Smokeless Tobacco: Current Comments:quitting now, 1 pac k last 2-3 days Alcohol Use Standard Drinks/Week Comments No 0 (1 standard drink = 0.6 oz pur e alcohol) Comments Unknown Sex and Gender Information Value Date Recorded Sex Assigned at Not on file Legal Sex Female 11:26 PM HEADMASTER/MISTRESS Gender Identity Not on file Sexual Orientation Not on file documented as of this encounter Progress Notes * Chanel Longoria ELECTRONIC GLUING MACHINE OPERATOR - 11/03/2018 1:02 PM CST Gege Vidal [...] WOULD LIKE TO RETURN TO PLACE IN [place] Joint replacement education booklet is given. Chanel Longoria PTA MASTER/MISTRESS documented in this encounter Plan of Treatment Not on file documented as of this encounter Visit Diagnoses Not on filedocumented in this encounter Care Teams Sow Farm Technician Relationship Specialty Start Date End Date Dominic Fernando MD [address] [facility] [address] [place] [address] PCP - General 08/13/17 documented as of this encounter
--- OUTSIDE RECORDS SUMMARY | 2024-09-04 18:33 | XMS_ITS | Encounter Summary ---
Author Organization [facility] Healthcare Address [address] [place] [address] Care Team Providers Care Senior Trainer Name Role Phone Dominic Fernando MD Primary Care Provider [phone] Encounter Details Date Type Department Care Team (Late st Contact Info) Description 11/03/2018 1:15 PM COMPUTER TECHNOLOGY TEACHER [address] [address] Preoperative testing; Primary osteoarthritis of right knee [...] on file Legal Sex Female 11:26 PM COMPUTER TECHNOLOGY TEACHER Gender Identity Not on file Sexual Orientation Not on file documented as of this encounter Plan of Treatment Not on file documented as of this encounter Procedures Procedure Name Priority Date/Time Associated Diagnosis Comments EGFR Routine 11/03/2018 1:00 PM COMPUTER TECHNOLOGY TEACHER Preoperative testing DIFFERENTIAL AUTO Routine 11/03/2018 1:0 0 PM COMPUTER TECHNOLOGY TEACHER Preoperative testing URINALYSIS AND REFLEX TO MICROSCOPIC AND CULTURE Routine 11/03/2018 1:00 PM COMPUTER TECHNOLOGY TEACHER Preoperative testing CBC WITH AUTO DIFFERENTIAL Routine 11/03/2018 1:00 PM COMPUTER TECHNOLOGY TEACHER Preoperative testing VITAMIN D 25 HYDROXY Routine 11/03/2018 1:00 PM COMPUTER TECHNOLOGY TEACHER Primary osteoarthritis of right knee APTT Routine 11/03/2018 1:00 PM COMPUTER TECHNOLOGY TEACHER Preoperative testing PROTIME-INR Routine 11/03/2018 1:00 PM COMPUTER TECHNOLOGY TEACHER Preoperative testing COMPREHENSIVE METABOLIC PANEL Routine 11/03/2018 1:00 PM COMPUTER TECHNOLOGY TEACHER Preoperative testing documented in this encounter Results * eGFR (11/03/2018 1:00 PM COMPUTER TECHNOLOGY TEACHER) eGFR 68 mL/min/1.7 3 m2 [facility] ([facility]) Comment: Interpretive Data Reference Interval Normal ?>/= 90 mL/min/1.73m2 Mildly decreased* ? 60 - 89 mL/min/1.73m2 Mildly to moderately decreased ?45 - 59 mL/min/1.73m2 Moderately to severely decreased ??30 - 44 mL/min/1.73m2 Severely decreased ?15 - 29 mL/min/1.73m2 Kidney Failure ?< 15 ??mL/min/1.73m2 *Relative to young adult level If -Taiwanese multiply value by 1.16. Estimated glomerular filtration [...] 2016. Blood specimen (specimen) 11/03/2018 1:00 PM COMPUTER TECHNOLOGY TEACHER 11/03/2018 1:14 PM COMPUTER TECHNOLOGY TEACHER Narrative [facility] ([facility]) - 11/03/2018 2:04 PM COMPUTER TECHNOLOGY TEACHER us Kemal Wright MD LAB BLOOD ORDERABLES Final R esult [facility] ([facility]) 1 [facility] [place] [address] * Differential, auto (11/03/2018 1:00 PM COMPUTER TECHNOLOGY TEACHER) Neutrophil abs 4.8 1.7 - 6.5 K/cumm [...] 2017. Blood specimen (specimen) 11/03/2018 1:00 PM COMPUTER TECHNOLOGY TEACHER 11/03/2018 1:14 PM COMPUTER TECHNOLOGY TEACHER Narrative [facility] ([facility]) - 11/03/2018 1:19 PM COMPUTER TECHNOLOGY TEACHER Kemal Wright MD LAB BLOOD ORDERABLES Final R esult [facility] ([facility]) 1 [facility] [place] [address] * (ABNORMAL) Vitamin D 25 hydroxy (11/03/2018 1:00 PM COMPUTER TECHNOLOGY TEACHER) Vitamin D 25-OH 12(L) 30 - 80 ng/mL [facility] ([facility]) Blood specimen (specimen) 11/03/2018 1:00 PM COMPUTER TECHNOLOGY TEACHER 11/03/2018 1:14 PM COMPUTER TECHNOLOGY TEACHER Narrative [facility] ([place]) - 11/03/2018 2:20 PM COMPUTER TECHNOLOGY TEACHER us Kemal Wright MD LAB BLOOD ORDERABLES Final R esult [facility] ([facility]) 1 [facility] [place] [address] * (ABNORMAL) Urinalysis reflex to microscopic and culture Urine, clean voided (11/03/2018 1:00 PM COMPUTER TECHNOLOGY TEACHER) Color, ur Yellow Yellow [facility] ([facility]) [...] ([facility]) Urine, clean voided 11/03/2018 1:00 PM COMPUTER TECHNOLOGY TEACHER 11/03/2018 1:14 PM COMPUTER TECHNOLOGY TEACHER Narrative [facility] ([facility]) - 11/03/2018 1:22 PM COMPUTER TECHNOLOGY TEACHER ?? Urine pH is affected by diet, medications, systemic acid-base disturbances, and renal tubular function. ??pH may affect urinary stone formation. ??For example, urine pH below 6.0 may help reduce the tendency for calcium phosphate stones and pH greater than 6.0 may reduce the tendency for uric acid stone formation. Source: [facility] [employer]. Last revised 09-26-2017 Kemal Wright MD LAB MICROBIOLOGY - GENERAL O RDERABLES Final Result Performing Organization Address [facility] Co de Phone Number [facility] ([facility]) 1 [facility] [place] [address] * (ABNORMAL) aPTT (11/03/2018 1:00 PM COMPUTER TECHNOLOGY TEACHER) aPTT 42.4(H) 25.0 - 37.0 sec [facility] ([facility]) Blood specimen (specimen) 11/03/2018 1:00 PM COMPUTER TECHNOLOGY TEACHER 11/03/2018 1:14 PM COMPUTER TECHNOLOGY TEACHER Narrative [facility] ([facility]) - 11/03/2018 2:09 PM COMPUTER TECHNOLOGY TEACHER Kemal Wright MD LAB BLOOD ORDERABLES Final R esult Performing Organization Address City/[facility]/ZIP Co de Phone Number [facility] ([place]) 1 [facility] [place] [address] * (ABNORMAL) Protime-INR (11/03/2018 1:00 PM COMPUTER TECHNOLOGY TEACHER) PT 17.3(H) 9.5 - 13.0 sec [facility] ([facility]) INR 1.52(H) 0.90 - 1.20 [facility] ([facility]) Comment: Interpretive Data Recommended ranges for Protime INR: 2.0 - 3.0 Most indications for Warfarin therapy (e.g. Treatment of DVT, PE, bioprosthetic valve replacement, prophylaxis venous thrombosis, atrial fibrillation). 2.5 - 3.5 Mechanical mitral valve or dual mechanical mitral and Aortic valve replacement. Current Interpretive Data was last revised on 2015. Blood specimen (specimen) 11/03/2018 1:00 PM COMPUTER TECHNOLOGY TEACHER 11/03/2018 1:14 PM COMPUTER TECHNOLOGY TEACHER Narrative [facility] ([facility]) - 11/03/2018 2:06 PM COMPUTER TECHNOLOGY TEACHER Kemal Wright MD LAB BLOOD ORDERABLES Final R esult [facility] ([place]) 1 [facility] [place] [address] * (ABNORMAL) Comprehensive metabolic panel (11/03/2018 1:00 PM COMPUTER TECHNOLOGY TEACHER) Pathologist [facility] Sodium 141 135 - 145 mmol/L [facility] ([facility]) Potassium, pl 3.3 3.3 - 4.9 mmol/L [facility] ([facility]) Chloride 105 97 - 110 mmol/L [facility] ([facility]) CO2 23 22 - 32 mmol/L [facility] ([facility]) Anion gap 13 2 - 15 mmol/L [facility] ([facility]) BUN 6(L) 8 - 25 mg/dL [facility] ([facility]) Creatinine 0.93 0.60 - 1.10 mg/dL [facility] ([facility]) Glucose 102 70 - 199 mg/dL [facility] ([facility]) Comment: Interpretive Data Fasting glucose [...] ([facility]) Blood specimen (specimen) 11/03/2018 1:00 PM COMPUTER TECHNOLOGY TEACHER 11/03/2018 1:14 PM COMPUTER TECHNOLOGY TEACHER Narrative [facility] ([facility]) - 11/03/2018 2:04 PM COMPUTER TECHNOLOGY TEACHER us Kemal Wright MD LAB BLOOD ORDERABLES Final R esult [facility] ([place]) 1 [facility] [place] [address] * CBC with auto differential (11/03/2018 1:00 PM COMPUTER TECHNOLOGY TEACHER) WBC 7.6 3.8 - 9.9 K/cumm [facility]ER [...] ([facility]) Blood specimen (specimen) 11/03/2018 1:00 PM COMPUTER TECHNOLOGY TEACHER 11/03/2018 1:14 PM COMPUTER TECHNOLOGY TEACHER Narrative [facility] ([facility]) - 11/03/2018 1:19 PM COMPUTER TECHNOLOGY TEACHER us Kemal Wright MD LAB BLOOD ORDERABLES Final R esult [facility] ([place]) 1 [facility] [place] [address] documented in this encounter Visit Diagnoses Diagnosis Preoperative testing Unspecified pre-operative examination Primary osteoarthritis of right knee documented in this encounter Care Teams Senior Trainer Relationship Specialty Start Date End Date Dominic Fernando MD [address] [facility] [address] [place], [place] [address] PCP - General 08/13/17 documented as of this encounter
--- OUTSIDE RECORDS SUMMARY | 2024-09-04 18:33 | XMS_ITS | Encounter Summary ---
Author Organization [facility] Medical Group Address [address] [place] [address] Care Team Providers Care Store Operations Specialist Name Role Phone Dominic Fernando MD Primary Care Provider [phone] Reason for Visit * Reason Onset Date Comments disability paperwork 11/03/2018 Encounter Details Date Type Department Care Team (Late st Contact Info) Description 11/03/2018 Documentation [facility] Orthopedics and Sports Medicine [address] [facility] [address] [place] [address] Rola Hernandez RT disability paperwork [...] on file Legal Sex Female 11:26 PM PRINTING ASSISTANT Gender Identity Not on file Sexual Orientation Not on file documented as of this encounter Progress Notes * Rola Hernandez RT - 11/03/2018 3:06 PM CST Patients sons disability paperwork is complete. Pt notified. TING ASSISTANT documented in this encounter Plan of Treatment Not on file documented as of this encounter Visit Diagnoses Not on filedocumented in this encounter Care Teams Store Operations Specialist Relationship Specialty Start Date End Date Dominic Fernando MD [address] [facility] [address] [facility] [address] [place] [address] PCP - General 08/13/17 documented as of this encounter
--- OUTSIDE RECORDS SUMMARY | 2024-09-04 18:34 | XMS_ITS | Encounter Summary ---
Author Organization [facility] Healthcare Address [address] [place] [address] Care Team Providers Care Lock Master Name Role Phone Dominic Fernando MD Primary Care Provider [phone] Reason for Referral * (Routine) - Closed Specialty Diagnoses / Procedures Referred By Contac t Referred To Contact Diagnoses Preoperative testing Procedures ECG 12 lead Kemal Wright MD Phone: tel: fax: [address] [address] Referral ID Status Reason Start Date Expiration Date Visits Re quested Visits Authorized Closed 10/28/2018 05/08/2020 1 1 TRUCK DRIVER Reason for Visit * (Routine) - Closed Specialty Diagnoses / Procedures Referred By Contac t Referred To Contact Diagnoses Preoperative testing Procedures ECG 12 lead Kemal Wright MD Phone: tel: fax: [address] [address] Referral ID Status Reason Start Date Expiration Date Visits Re quested Visits Authorized Closed 10/28/2018 05/08/2020 1 1 Encounter Details Date Type Department Care Team (Latest Contact Info) Description 11/03/2018 12:27 PM CDL TRUCK DRIVER - 11/03/2018 11:59 PM CDL TRUCK DRIVER Hospital Encounter [facility] Cardiology [address] [place] [address] Kemal Wright MD [address] [place] [address] DR UDAY García [facility] [address] [place] [address] Preoperative testing Discharge Disposition: Discharge to home [...] on file Legal Sex Female 11:26 PM CDL TRUCK DRIVER Gender Identity Not on file Sexual [...] mcg tablet Take 112 mcg by mouth recruiting team lead before breakfast. 07/21/[address] (PROTONIX) 20 [...] Comments ECG 12-LEAD Routine 11/04/2018 6:42 AM CDL TRUCK DRIVER Preoperative testing documented in this encounter Results * ECG 12 lead (11/04/2018 6:42 AM CDL TRUCK DRIVER) 11/03/2018 12:4 6 PM CDL TRUCK DRIVER Narrative [facility] - 11/03/2018 9:39 PM CDL TRUCK DRIVER Vent Rate: 77 bpm RR Interval: 778 msec HI Interval: 194 msec QRS Duration: 86 msec QT Interval: 365 msec QTC Interval: 396 msec P-R-T [place]: 67 - 6 - 74 degrees SINUS RHYTHM LOW QRS VOLTAGE IN PRECORDIAL LEADS ??[QRS DEFLECTION < 1.0 mV IN CHEST LEADS] NONSPECIFIC T-WAVE ABNORMALITY BORDERLINE ECG Electronically Signed By: Darion Lang MD us Kemal Wright MD ECG ORDERABLES Final Result [facility] documented in this encounter Visit Diagnoses Diagnosis Preoperative testing Unspecified pre-operative examination documented in this encounter Care Teams Lock Master Relationship Specialty Start Date End Date Dominic Fernando MD [address] [facility] [address] [place] [address] PCP - General 08/13/17 documented as of this encounter
--- OUTSIDE RECORDS SUMMARY | 2024-09-04 18:34 | XMS_ITS | Encounter Summary ---
Author Organization [facility] Medical Group Address [address] [facility] [address] [place] [address] Care Team Providers Care Plant Maintenance Worker Name Role Phone Dominic Fernando MD Primary Care Provider [phone] Encounter Details Date Type Department Care Team (Late st Contact Info) Description 11/03/2018 Telephone [facility] Orthopedics and Sports Medicine [address] [place] [address] Juanita Mckay PA [address] [place] [address] [address] Social History Tobacco Use Types Packs/Day Years Used Date Smoking Tobacco: Every Day Cigarettes Smokeless Tobacco: Current Comments:quitting now, 1 pac k last 2-3 days Alcohol Use Standard Drinks/Week Comments No 0 (1 standard drink = 0.6 oz pur e alcohol) Comments Unknown Sex and Gender Information Value Date Recorded Sex Assigned at Not on file Legal Sex Female 11:26 PM CLOTH WORKER Gender Identity Not on file Sexual Orientation Not on file documented as of this encounter Miscellaneous Notes * Telephone Encounter - Tawana Wood MA - 11/05/2018 7:32 AM CLOTH WORKER Noted, is patient still having surgery? H WORKER * Telephone Encounter - Juanita Mckay PA - 11/04/2018 4:18 PM CLOTH WORKER No, if proceeding with surgery, patient should stop anticoagulant 5 days prior to surgery. H WORKER * Telephone Encounter - Tawana Wood MA - 11/03/2018 1:51 PM CLOTH WORKER Per Juanita patient is working on these clearances, we should have an answer at the latest Saturday but patient must not stop anticoagulant H WORKER * Telephone Encounter - Juanita Mckay PA - 11/03/2018 1:46 PM CLOTH WORKER [place], we are not cancelling yet, but she needs update on these clearances due to new event she had at the end of Sep. Her PCP has been working this up for her. She needs updated/new clearance H WORKER * Telephone Encounter - Tawana Wood MA - 11/03/2018 11:22 AM CLOTH WORKER Juanita I have clearances from PCP and oncology, are we cancelling surgery on 11/11/18? Clearances should be scanned under media H WORKER documented in this encounter Plan of Treatment Not on file documented as of this encounter Visit Diagnoses Not on filedocumented in this encounter Care Teams Plant Maintenance Worker Relationship Specialty Start Date End Date Dominic Fernando MD [address] [facility] [address] [place] [address] PCP - General 08/13/17 documented as of this encounter
--- OUTSIDE RECORDS SUMMARY | 2024-09-04 18:34 | XMS_ITS | Encounter Summary ---
Author Organization [facility] Medical Group Address [address] [facility] [address] [place] [address] Care Team Providers Care Engineer Station Mainline Name Role Phone Dominic Fernando MD Primary Care Provider [phone] Reason for Visit * Reason Onset Date Comments xr disc 10/06/2018 Encounter Details Date Type Department Care Team (Late st Contact Info) Description 10/06/2018 Telephone [facility] Orthopedics and Sports Medicine [address] [facility] [address] [address] Max Galloway RT xr disc Social History Tobacco Use Types Packs/Day Years Used Date Smoking Tobacco: Every Day Smokeless Tobacco: Never Comments Unknown Sex and Gender Information Value Date Recorded Sex Assigned at Not on file Legal Sex Female 11:26 PM PROFESSOR OF BIOLOGICAL SCIENCES Gender Identity Not on file Sexual Orientation Not on file documented as of this encounter Miscellaneous Notes * Telephone Encounter - Max Galloway R-RT - 10/06/2018 7:45 AM PROFESSOR OF BIOLOGICAL SCIENCES Xr/ct disc r arm csp lidia ESSOR OF BIOLOGICAL SCIENCES ESSOR OF BIOLOGICAL SCIENCES documented in this encounter Plan of Treatment Not on file documented as of this encounter Visit Diagnoses Not on filedocumented in this encounter Care Teams Engineer Station Mainline Relationship Specialty Start Date End Date Dominic Fernando MD [address] [facility] [address] [place] [address] PCP - General 08/13/17 documented as of this encounter
--- OUTSIDE RECORDS SUMMARY | 2024-09-04 18:34 | XMS_ITS | Encounter Summary ---
Author Organization [facility] Address [address] [facility] [address] [place] [address] Care Team Providers Care Digester Capper Name Role Phone Dominic Fernando MD Primary Care Provider [phone] Reason for Visit * Diagnostic Imaging (Routine) - Closed Specialty Diagnoses / Procedures Referred By Evan t Referred To Contact Diagnoses Orthopedic aftercare Procedures XR Shoulder Right 2 or More Views Juanita Mckay PA Phone: tel: fax: [facility] Medical [facility] Referral ID Status Reason Start Date Expiration Date Visits Re quested Visits Authorized [id number] Closed 11/03/2018 05/14/2020 1 1 Encounter Details Date Type Department Care Team (Latest Contact Info) Description 11/03/2018 7:35 AM RICE DRIER OPERATOR - 11/03/2018 12:30 PM RICE DRIER OPERATOR Hospital Encounter [facility] Orthopedics and Sports Medicine [address] [facility] [address], [place] [phone] Discharge Disposition: Discharge to home or self [...] on file Legal Sex Female 11:26 PM RICE DRIER OPERATOR Gender Identity Not on file Sexual [...] mcg tablet Take 112 mcg by mouth forklift mechanic before breakfast. 07/21/[address] (PROTONIX) 20 [...] Read Routine (OP Routine) 11/03/2018 1:12 PM RICE DRIER OPERATOR Closed nondisplaced fracture of right acromial process with routine healing, subsequent encounter documented in this encounter Results * XR Shoulder Right 2 or More Views (11/03/2018 1:12 PM RICE DRIER OPERATOR) Anatomical Region Laterality Modality Upper Extremities, Shoulder Right Digi laurie Radiography Narrative 11/03/2018 1:54 PM RICE DRIER OPERATOR XR reviewed, interpreted, and compared with prior views. ??There is evidence of a nondisplaced distal acromion fracture with healing noted, as demonstrated by callus formation and increased opacity. ??Fracture alignment remains acceptable without further displacement. ??No further acute changes noted. ?? Juanita JOHNSON IMG XR PROCEDURES Final Result documented in this encounter Visit Diagnoses Not on filedocumented in this encounter Care Teams Digester Capper Relationship Specialty Start Date End Date Dominic Fenrando MD [address] [facility] [address] [place], [place] [id number] PCP - General 08/13/17 documented as of this encounter
--- OUTSIDE RECORDS SUMMARY | 2024-09-04 18:34 | XMS_ITS | Encounter Summary ---
Author Organization [facility] Medical [facility] Address [address] [facility] [address] [place] [address] Care Team Providers Care Equine Dentist Name Role Phone Dominic Fernando MD Primary Care Provider [phone] Reason for Referral * Diagnostic Imaging (Routine) - Closed Specialty Diagnoses / Procedures Referred By Contac t Referred To Contact Diagnoses Orthopedic aftercare Procedures XR Shoulder Right 2 or More Views Juanita Mckay PA Phone: tel: fax: [facility] Medical Group Referral ID Status Reason Start Date Expiration Date Visits Re quested Visits Authorized [id number] Closed 11/03/2018 05/14/2020 1 1 AGE MECHANIC Reason for Visit * Reason Comments Follow-up Encounter Details Date Type Department Care Team (Late st Contact Info) Description 11/03/2018 10:00 AM SALVAGE MECHANIC Office Visit [facility] Orthopedics and Sports Medicine [address] [facility] [address] [place] [address] Juanita Mckay PA [address] [place] [address] [address] [place] [address] Closed nondisplaced fracture of right acromial process [...] on file Legal Sex Female 11:26 PM SALVAGE MECHANIC Gender Identity Not on file Sexual Orientation Not on file documented as of this encounter Last Filed Vital Signs Vital Sign Reading Time Taken Comments Blood Pressure 119/75 11/03/2018 9:31 AM SALVAGE MECHANIC Pulse 78 11/03/2018 9:31 AM SALVAGE MECHANIC Temperature - - Respiratory Rate - - Oxygen Saturation - - Inhaled Oxygen Concentration - - Weight 85.3 kg (188 lb) 11/03/2018 9:31 AM SALVAGE MECHANIC Height 162.6 cm (5' 4 ) 11/03/2018 9:31 AM SALVAGE MECHANIC Body Mass Index 32.27 11/03/2018 9:31 AM SALVAGE MECHANIC documented in this encounter Progress Notes [...] duplex US done and had f/u with [facility] vascular, who monitors her carotid [...] Reports of studies she had done at [place] were scanned into EMR. She was notified [...] Kemal Wright MD at 11/04/2018 7:29 AM SALVAGE MECHANIC AGE MECHANIC AGE MECHANIC documented in this encounter Plan of Treatment Not on file documented as of this encounter Procedures Procedure Name Priority Date/Time Associated Diagnosis Comments XR SHOULDER RIGHT 2 OR MORE VIEWS Schedule Routine, Read Routine (OP Routine) 11/03/2018 1:12 PM SALVAGE MECHANIC Closed nondisplaced fracture of right acromial process with routine healing, subsequent encounter documented in this encounter Results * XR Shoulder Right 2 or More Views (11/03/2018 1:12 PM SALVAGE MECHANIC) Anatomical Region Laterality Modality Upper Extremities, Shoulder Right Digi laurie Radiography Narrative 11/03/2018 1:54 PM SALVAGE MECHANIC XR reviewed, interpreted, and compared with prior [...] 10/02/2019 added in this encounter Care Teams Equine Dentist Relationship Specialty Start Date End Date Dominic Fernando MD [address] [facility] [address] [facility] [address] [place] [address] PCP - General 08/13/17 documented as of this encounter
--- OUTSIDE RECORDS SUMMARY | 2024-09-04 18:35 | XMS_ITS | Encounter Summary ---
Author Organization [facility] Medical [facility] Address [address] [facility] [address] [place] [address] Care Team Providers Care Gear Keeper Name Role Phone Dominic Fernando MD Primary Care Provider [phone] Reason for Visit * Diagnostic Imaging (Routine) - Closed Specialty Diagnoses / Procedures Referred By Evan bo Referred To Contact Diagnoses Right arm pain Procedures XR Elbow Right 3 or More Views Juanita Mckay PA Phone: tel: fax: Referral ID Status Reason Start Date Expiration Date Visits Re quested Visits Authorized [id number] Closed 10/01/2018 04/11/2020 1 1 Encounter Details Date Type Department Care Team (Latest Contact Info) Description 10/01/2018 9:15 AM TRACK LAYING MACHINE OPERATOR - 10/01/2018 11:59 PM TRACK LAYING MACHINE OPERATOR Hospital Encounter [facility] Orthopedics and Sports Medicine [address] [place] [address] [place] [phone] Discharge Disposition: Discharge to home or self care Social History Tobacco Use Types Packs/Day Years Used Date Smoking Tobacco: Every Day Smokeless Tobacco: Never Comments Unknown Sex and Gender Information Value Date Recorded Sex Assigned at Not on file Legal Sex Female 11:26 PM TRACK LAYING MACHINE OPERATOR Gender Identity Not on file Sexual Orientation Not on file documented as of this encounter Medications at Time of Discharge cyanocobalamin (Vitamin B-12) 1,000 mcg tabletIndications :Prevention of Vitamin B12 Deficiency Take 1,000 mcg by mouth daily. folic acid (FOLVITE) 1 mg tablet Take 1 mg by mouth daily. levothyroxine (SYNTHROID, LEVOTHROID) 112 mcg tablet Take 112 mcg by mouth safety inspector before breakfast. 07/21/2018 XARELTO 20 mg tablet [...] Read Routine (OP Routine) 10/01/2018 9:15 AM TRACK LAYING MACHINE OPERATOR Right arm pain documented in this encounter Results * XR Elbow Right 3 or More Views (10/01/2018 9:15 AM TRACK LAYING MACHINE OPERATOR) Anatomical Region Laterality Modality Upper Extremities, Elbow Right Digital Radiography Narrative 10/06/2018 4:47 PM TRACK LAYING MACHINE OPERATOR X-ray of the right elbow viewed and interpreted. ??There is no evidence of fracture, subluxation, or bony abnormality. Juanita JOHNSON IMG XR PROCEDURES Final Result documented in this encounter Visit Diagnoses Not on filedocumented in this encounter Care Teams Gear Keeper Relationship Specialty Start Date End Date Dominic Fernando MD [address] [facility] [address] [place], [place] [id number] PCP - General 08/13/17 documented as of this encounter
--- OUTSIDE RECORDS SUMMARY | 2024-09-04 18:36 | XMS_ITS | Encounter Summary ---
Author Organization [facility] Address [address] [facility] [address] [place] [address] Care Team Providers Care Diesel Engine Operator Name Role Phone Dominic Fernando MD Primary Care Provider Reason for Visit * Diagnostic Imaging (Routine) - Closed Specialty Diagnoses / Procedures Referred By Evan t Referred To Contact Diagnoses Right arm pain Procedures XR Shoulder Right 2 or More Views Juanita Mckay PA Phone: tel: fax: Referral ID Status Reason Start Date Expiration Date Visits Re quested Visits Authorized [id number] Closed 10/01/2018 04/11/2020 1 1 Encounter Details Date Type Department Care Team (Latest Contact Info) Description 10/01/2018 9:10 AM DOOR ASSEMBLER - 10/01/2018 9:14 AM [facility] Hospital Encounter [facility] Orthopedics and Sports Medicine [address] [place] [address] [place] [phone] Discharge Disposition: Discharge to home or self care Social History Tobacco Use Types Packs/Day Years Used Date Smoking Tobacco: Every Day Smokeless Tobacco: Never Comments Unknown Sex and Gender Information Value Date Recorded Sex Assigned at Not on file Legal Sex Female 11:26 PM DOOR ASSEMBLER Gender Identity Not on file Sexual Orientation Not on file documented as of this encounter Medications at Time of Discharge cyanocobalamin (Vitamin B-12) 1,000 mcg tabletIndications :Prevention of Vitamin B12 Deficiency Take 1,000 mcg by mouth daily. folic acid (FOLVITE) 1 mg tablet Take 1 mg by mouth daily. levothyroxine (SYNTHROID, LEVOTHROID) 112 mcg tablet Take 112 mcg by mouth driller helper before breakfast. 07/21/2018 XARELTO 20 mg tablet [...] Read Routine (OP Routine) 10/01/2018 9:15 AM DOOR ASSEMBLER Right arm pain documented in this encounter Results * XR Shoulder Right 2 or More Views (10/01/2018 9:15 AM DOOR ASSEMBLER) Anatomical Region Laterality Modality Upper Extremities, Shoulder Right Digi laurie Radiography Narrative 10/06/2018 4:46 PM DOOR ASSEMBLER X-rays of the right shoulder are viewed and interpreted in clinic today. ?? These demonstrate an acute, nondisplaced fracture of the acromion. ?? Juanita JOHNSON IMG XR PROCEDURES Final Result documented in this encounter Visit Diagnoses Not on filedocumented in this encounter Care Teams Diesel Engine Operator Relationship Specialty Start Date End Date Dominic Fernando MD [address] [facility] [address] [place] [address] PCP - General 08/13/17 documented as of this encounter
--- OUTSIDE RECORDS SUMMARY | 2024-09-04 18:36 | XMS_ITS | Encounter Summary ---
Author Organization [facility] Address [address] [facility] [address] [place] [address] Care Team Providers Care Decommissioning Well Site Manager Name Role Phone Dominic Fernando MD Primary Care Provider [phone] Reason for Referral * Diagnostic Imaging (Routine) - Closed Specialty Diagnoses / Procedures Referred By Contac t Referred To Contact Diagnoses Right arm pain Procedures XR Elbow Right 3 or More Views Juanita Mckay PA Phone: tel: fax: Referral ID Status Reason Start Date Expiration Date Visits Re quested Visits Authorized [id number] Closed 10/01/2018 04/11/2020 1 1 H ELECTRICIAN * Diagnostic Imaging (Routine) - Closed Specialty Diagnoses / Procedures Referred By Contac t Referred To Contact Diagnoses Right arm pain Procedures XR Shoulder Right 2 or More Views Juanita Mckay PA Phone: tel: fax: Referral ID Status Reason Start Date Expiration Date Visits Re quested Visits Authorized [id number] Closed 10/01/2018 04/11/2020 1 1 H ELECTRICIAN Reason for Visit * Reason Comments Pain Encounter Details Date Type Department Care Team (Late st Contact Info) Description 10/01/2018 8:15 AM WATCH ELECTRICIAN Office Visit [facility] Orthopedics and Sports Medicine [address] [facility] [address], [place] [address] Juanita Mckay PA [address] [place] [address] [address] [place] [address] Closed nondisplaced fracture of right acromial process, [...] on file Legal Sex Female 11:26 PM WATCH ELECTRICIAN Gender Identity Not on file Sexual Orientation Not on file documented as of this encounter Last Filed Vital Signs Vital Sign Reading Time Taken Comments Blood Pressure 116/73 10/01/2018 8:21 AM WATCH ELECTRICIAN Pulse 86 10/01/2018 8:21 AM WATCH ELECTRICIAN Temperature - - Respiratory Rate - - Oxygen Saturation - - Inhaled Oxygen Concentration - - Weight 85.3 kg (188 lb) 10/01/2018 8:21 AM WATCH ELECTRICIAN Height 162.6 cm (5' 4 ) 10/01/2018 8:21 AM WATCH ELECTRICIAN Body Mass Index 32.27 10/01/2018 8:21 AM WATCH ELECTRICIAN documented in this encounter Progress Notes * [...] hit her head. Imaging was done at [facility]. She has XR here with her today. She states that her right elbow is what hurts the worst, but she does have some right shoulder soreness. She did go see Dr. Sheppard, as the ED at [facility] had arranged that appt. She states he instructed her to come see us. He did advise her that she could d/c her sling. She is scheduled to undergo right TKA with Dr. Adriana auguste 10/14/18. Pain Assessment Pain Assessment: 0-10 Pain Score: 3 PAST MEDICAL HISTORY She has a past medical history of Cervical cancer ([facility]); H/O: hysterectomy; Hiatal hernia; History of blood [...] bony abnormality. XR and CT reviewed from [facility]; Assessment/Plan Gege was seen today for pain. [...] Kemal Wright MD at 10/07/2018 7:44 AM WATCH ELECTRICIAN H ELECTRICIAN H ELECTRICIAN documented in this encounter Plan of Treatment Not on file documented as of this encounter Procedures Procedure Name Priority Date/Time Associated Diagnosis Comments XR SHOULDER RIGHT 2 OR MORE VIEWS Schedule Routine, Read Routine (OP Routine) 10/01/2018 9:15 AM WATCH ELECTRICIAN Right arm pain XR ELBOW RIGHT 3 OR MORE VIEWS Schedule Routine, Read Routine (OP Routine) 10/01/2018 9:15 AM WATCH ELECTRICIAN Right arm pain documented in this encounter Results * XR Shoulder Right 2 or More Views (10/01/2018 9:15 AM WATCH ELECTRICIAN) Anatomical Region Laterality Modality Upper Extremities, Shoulder Right Digi laurie Radiography Narrative 10/06/2018 4:46 PM WATCH ELECTRICIAN X-rays of the right shoulder are viewed and interpreted in clinic today. ?? These demonstrate an acute, nondisplaced fracture of the acromion. ?? Rosa Stuart PA IMG XR PROCEDURES Final Result * XR Elbow Right 3 or More Views (10/01/2018 9:15 AM WATCH ELECTRICIAN) Anatomical Region Laterality Modality Upper Extremities, Elbow Right Digital Radiography Narrative 10/06/2018 4:47 PM WATCH ELECTRICIAN X-ray of the right elbow viewed and [...] 09/30/2018 added in this encounter Care Teams Decommissioning Well Site Manager Relationship Specialty Start Date End Date Dominic Fernando MD [address] [facility] [address] [place] [address] PCP - General 08/13/17 documented as of this encounter
--- OUTSIDE RECORDS SUMMARY | 2024-09-04 18:37 | XMS_ITS | Encounter Summary ---
Author Organization [facility] Address [address] [facility] [address] [place] [address] Care Team Providers Care Dairy Nutrition Consultant Name Role Phone Dominic Fernando MD Primary Care Provider [phone] Reason for Visit * Reason Onset Date Comments Surgical Clearance 08/27/2018 new clearance with no lovenox bridging Encounter Details Date Type Department Care Team (Late st Contact Info) Description 08/27/2018 Documentation [facility] Orthopedics and Sports Medicine [address] [place] [phone] Tawana Wood MA Surgical Clearance (new clearance with no lovenox bridging) Social History Tobacco Use Types Packs/Day Years Used Date Smoking Tobacco: Every Day Smokeless Tobacco: Never Comments Unknown Sex and Gender Information Value Date Recorded Sex Assigned at Not on file Legal Sex Female 11:26 PM FRONT END TECHNICIAN Gender Identity Not on file Sexual Orientation Not on file documented as of this encounter Progress Notes * Tawana Wood MA - 08/27/2018 1:33 PM CST New clearance letter with New instructions scanned into media, patient does not need lovenox bridging see clearance letter T END TECHNICIAN documented in this encounter Plan of Treatment Not on file documented as of this encounter Visit Diagnoses Not on filedocumented in this encounter Care Teams Dairy Nutrition Consultant Relationship Specialty Start Date End Date Dominic Fernando MD [address] [facility] [address] [place] [address] PCP - General 08/13/17 documented as of this encounter
--- OUTSIDE RECORDS SUMMARY | 2024-09-04 18:37 | XMS_ITS | Encounter Summary ---
Author Organization [facility] Address [address] [facility] [address] [place] [address] Care Team Providers Care Equipment Processor Name Role Phone Dominic Fernando MD Primary Care Provider [phone] Reason for Visit * Reason Onset Date Comments Surgical Clearance 08/19/2018 pcp and oncol ogy clearance faxed to hospital, bridging instructions Encounter Details Date Type Department Care Team (Late st Contact Info) Description 08/19/2018 Documentation [facility] Orthopedics and Sports Medicine [address] [place] [phone] Tawana Wood MA Surgical Clearance (pcp and oncology clearance faxed to hospital, bridging instructions) Social History Tobacco Use Types Packs/Day Years Used Date Smoking Tobacco: Every Day Smokeless Tobacco: Never Comments Unknown Sex and Gender Information Value Date Recorded Sex Assigned at Not on file Legal Sex Female 11:26 PM RECREATIONAL SPORTS DIRECTOR Gender Identity Not on file Sexual Orientation Not on file documented as of this encounter Progress Notes * Tawana Wood MA - 08/19/2018 4:20 PM CST instructions for lovenox bridging on clearance letter EATIONAL SPORTS DIRECTOR documented in this encounter Plan of Treatment Not on file documented as of this encounter Visit Diagnoses Not on filedocumented in this encounter Care Teams Equipment Processor Relationship Specialty Start Date End Date Dominic Fernando MD [address] [facility] [address] [place] [address] [place] [address] PCP - General 08/13/17 documented as of this encounter
--- OUTSIDE RECORDS SUMMARY | 2024-09-04 18:37 | XMS_ITS | Encounter Summary ---
Author Organization [facility] Medical [facility] Address [address] [facility] [address] [place] [address] Care Team Providers Care Wood And Hardware Outfitter Name Role Phone Dominic Fernando MD Primary Care Provider [phone] Reason for Visit * Reason Onset Date Comments disability paperwork 09/24/2018 Encounter Details Date Type Department Care Team (Late st Contact Info) Description 09/24/2018 Documentation [facility] Orthopedics and Sports Medicine [address] [facility] [address] [place] [phone] Rola Hernandez RT disability paperwork Social History Tobacco Use Types Packs/Day Years Used Date Smoking Tobacco: Every Day Smokeless Tobacco: Never Comments Unknown Sex and Gender Information Value Date Recorded Sex Assigned at Not on file Legal Sex Female 11:26 PM PET ADOPTION COUNSELOR Gender Identity Not on file Sexual Orientation Not on file documented as of this encounter Progress Notes * Rola Hernandez RT - 09/24/2018 10:44 AM CST Disability paperwork is ready for picker and packer. Pt notified. ADOPTION COUNSELOR documented in this encounter Plan of Treatment Not on file documented as of this encounter Visit Diagnoses Not on filedocumented in this encounter Care Teams Wood And Hardware Outfitter Relationship Specialty Start Date End Date Dominic Fernando MD [address] [place] [address] PCP - General 08/13/17 documented as of this encounter
--- OUTSIDE RECORDS SUMMARY | 2024-09-04 18:37 | XMS_ITS | Encounter Summary ---
Author Organization [facility] Medical [facility] Address [address] [facility] [address] [place] [address] Care Team Providers Care Supervisor Steel Division Name Role Phone Dominic Fernando MD Primary Care Provider [phone] Encounter Details Date Type Department Care Team (Late st Contact Info) Description 08/19/2018 Telephone [facility] Orthopedics and Sports Medicine [address] [place] [phone] Kemal Wright MD [address] [place] [address] [address] [address] Social History Tobacco Use Types Packs/Day Years Used Date Smoking Tobacco: Every Day Smokeless Tobacco: Never Comments Unknown Sex and Gender Information Value Date Recorded Sex Assigned at Not on file Legal Sex Female 11:26 PM REGISTERED NURSE HH CASE MANAGER Gender Identity Not on file Sexual Orientation Not on file documented as of this encounter Miscellaneous Notes * Telephone Encounter - Vibha Yang - 08/20/2018 1:53 PM CST Spoke with patient and surgery will be 10/14 STERED NURSE HH CASE MANAGER * Telephone Encounter - Tawana Wood MA - 08/19/2018 4:24 PM REGISTERED NURSE HH CASE MANAGER onocology and PCP clearance received, please call pt with surgery date STERED NURSE HH CASE MANAGER documented in this encounter Plan of Treatment Not on file documented as of this encounter Visit Diagnoses Not on filedocumented in this encounter Care Teams Supervisor Steel Division Relationship Specialty Start Date End Date Dominic Fernando MD [address] [facility] [address] [facility] [address] [place] [address] PCP - General 08/13/17 documented as of this encounter
--- OUTSIDE RECORDS SUMMARY | 2024-09-04 18:37 | XMS_ITS | Encounter Summary ---
Author Organization [facility] Medical [facility] Address [address] [facility] [address] [place] [address] Care Team Providers Care Ostrich Farm Worker Name Role Phone Dominic Fernando MD Primary Care Provider [phone] Encounter Details Date Type Department Care Team (Late st Contact Info) Description 09/24/2018 Orders Only [facility] Orthopedics and Sports Medicine [address] [facility] [address] [place] [phone] Kemal Wright MD [address] [place] [address] [address] [place] [address] Primary osteoarthritis of right knee (Primary Dx) Social History Tobacco Use Types Packs/Day Years Used Date Smoking Tobacco: Every Day Smokeless Tobacco: Never Comments Unknown Sex and Gender Information Value Date Recorded Sex Assigned at Not on file Legal Sex Female 11:26 PM SLAG PRODUCTION WORKER Gender Identity Not on file [...] 09/24/2018 documented in this encounter Care Teams Ostrich Farm Worker Relationship Specialty Start Date End Date Dominic Fernando MD [address] MED[address] [place], [place] [id number] PCP - General 08/13/17 documented as of this encounter
--- OUTSIDE RECORDS SUMMARY | 2024-09-04 18:38 | XMS_ITS | Encounter Summary ---
Author Organization [facility] Medical [facility] Address [address] [facility] [address] [place] [address] Care Team Providers Care Product Mgr Name Role Phone Dominic Fernando MD Primary Care Provider [phone] Reason for Visit * Reason Onset Date Comments surgery clearance 08/18/2018 Encounter Details Date Type Department Care Team (Late st Contact Info) Description 08/18/2018 Telephone [facility] Orthopedics and Sports Medicine [address] [facility] [address] [place] [phone] Kemal Wright MD [address] [place] [address] [address] [place], [place] [id number] surgery clearance Social History Tobacco Use Types Packs/Day Years Used Date Smoking Tobacco: Every Day Smokeless Tobacco: Never Comments Unknown Sex and Gender Information Value Date Recorded Sex Assigned at Not on file Legal Sex Female 11:26 PM RADIO DIRECTOR Gender Identity Not on file Sexual Orientation Not on file documented as of this encounter Miscellaneous Notes * Telephone Encounter - Tawana Wood MA - 08/19/2018 8:24 AM RADIO DIRECTOR Patient contacting PCP for clearance letter O DIRECTOR * Telephone Encounter - Ciara Belcher - 08/18/2018 4:34 PM CST Patient called, left message about a surgery clearance that was to be faxed to us today. Please call pateint. O DIRECTOR documented in this encounter Plan of Treatment Not on file documented as of this encounter Visit Diagnoses Not on filedocumented in this encounter Care Teams Product Mgr Relationship Specialty Start Date End Date Dominic Fernando MD [address] [place] [address] PCP - General 08/13/17 documented as of this encounter
--- OUTSIDE RECORDS SUMMARY | 2024-09-04 18:38 | XMS_ITS | Encounter Summary ---
Author Organization [facility] Medical Group Address [address] [facility] [address] [place] [address] Care Team Providers Care Video Production Engineer Name Role Phone Dominic Fernando MD Primary Care Provider [phone] Reason for Visit * Reason Onset Date Comments Surgical Clearance 08/13/2018 hemo clearanc e faxed to hospital Encounter Details Date Type Department Care Team (Late st Contact Info) Description 08/13/2018 Documentation [facility] Orthopedics and Sports Medicine [address] [place] [phone] Tawana Wood MA Surgical Clearance (hemo clearance faxed to hospital) Social History Tobacco Use Types Packs/Day Years Used Date Smoking Tobacco: Every Day Smokeless Tobacco: Never Comments Unknown Sex and Gender Information Value Date Recorded Sex Assigned at Not on file Legal Sex Female 11:26 PM SPEECH PATHOLOGY TEACHER Gender Identity Not on file Sexual Orientation Not on file documented as of this encounter Progress Notes * Tawana Wood MA - 08/13/2018 8:39 AM CST Medically cleared for TKA, patient is to stop Xarelto 2 days prior to surgery and stop taking aspirin 1 week prior to surgery per dr noyola, labwork faxed also CH PATHOLOGY TEACHER * Ciara Belcher - 08/13/2018 8:39 AM CST Patient calling Regarding medical clearance that was suppose to be faxed today. Please call patient. CH PATHOLOGY TEACHER documented in this encounter Plan of Treatment Not on file documented as of this encounter Visit Diagnoses Not on filedocumented in this encounter Care Teams Video Production Engineer Relationship Specialty Start Date End Date Dominic Fernando MD [address] [place] [address] PCP - General 08/13/17 documented as of this encounter
--- OUTSIDE RECORDS SUMMARY | 2024-09-04 18:38 | XMS_ITS | Encounter Summary ---
Author Organization [facility] Medical [facility] Address [address] [facility] [address] [place] [address] Care Team Providers Care Driver Wheelchair Name Role Phone Dominic Fernando MD Primary Care Provider [phone] Reason for Visit * Reason Onset Date Comments surgery clearance 08/15/2018 Encounter Details Date Type Department Care Team (Late st Contact Info) Description 08/15/2018 Telephone [facility] Orthopedics and Sports Medicine 4 [facility] [address] [address] Felipa Amador RMA surgery clearance Social History Tobacco Use Types Packs/Day Years Used Date Smoking Tobacco: Every Day Smokeless Tobacco: Never Comments Unknown Sex and Gender Information Value Date Recorded Sex Assigned at Not on file Legal Sex Female 11:26 PM OFFICE MESSENGER Gender Identity Not on file Sexual Orientation Not on file documented as of this encounter Miscellaneous Notes * Telephone Encounter - Tawana Wood MA - 08/15/2018 11:45 AM OFFICE MESSENGER Patient calling PCP for clearance CE MESSENGER * Telephone Encounter - Felipa Amador MA - 08/15/2018 9:53 AM CST Patient called in asking if PCP has sent in medical clearance yet? I don't see anything in the computer. Please call the patient. CE MESSENGER documented in this encounter Plan of Treatment Not on file documented as of this encounter Visit Diagnoses Not on filedocumented in this encounter Care Teams Driver Wheelchair Relationship Specialty Start Date End Date Dominic Fernando MD [address] [facility] [address] [facility] [address] MED[address]INE [place], [place] [id number] PCP - General 08/13/17 documented as of this encounter
--- OUTSIDE RECORDS SUMMARY | 2024-09-04 18:38 | XMS_ITS | Encounter Summary ---
Author Organization [facility] Medical Group Address [address] [facility] [address] [place] [address] Care Team Providers Care Drum Tester Name Role Phone Dominic Fernando MD Primary Care Provider [phone] Reason for Visit * Diagnostic Imaging (Routine) - Closed Specialty Diagnoses / Procedures Referred By Contac t Referred To Contact Diagnoses Pain in both knees, unspecified chronicity Procedures XR Pelvis 1 or 2 Views Kemal Wright MD Phone: tel: fax: Referral ID Status Reason Start Date Expiration Date Visits Re quested Visits Authorized [id number] Closed 07/23/2018 02/01/2020 1 1 Encounter Details Date Type Department Care Team (Latest Contact Info) Description 07/23/2018 11:16 AM GARDEN CENTER MANAGER - 07/23/2018 11:59 PM GARDEN CENTER MANAGER Hospital Encounter [facility] Medical [facility] Orthopedics and Sports Medicine [address] [place] [phone] Discharge Disposition: Discharge to home or self care Social History Tobacco Use Types Packs/Day Years Used Date Smoking Tobacco: Every Day Smokeless Tobacco: Never Comments Unknown Sex and Gender Information Value Date Recorded Sex Assigned at Not on file Legal Sex Female 11:26 PM GARDEN CENTER MANAGER Gender Identity Not on file Sexual Orientation Not on file documented as of this encounter Medications at Time of Discharge cyanocobalamin (Vitamin B-12) 1,000 mcg tabletIndications :Prevention of Vitamin B12 Deficiency Take 1,000 mcg by mouth daily. levothyroxine (SYNTHROID, LEVOTHROID) 112 mcg tablet Take 112 mcg by mouth early childhood associate before breakfast. 07/21/2018 XARELTO 20 mg tablet [...] Read Routine (OP Routine) 07/23/2018 11:27 AM GARDEN CENTER MANAGER Pain in both knees, unspecified chronicity documented in this encounter Results * XR Pelvis 1 or 2 Views (07/23/2018 11:27 AM GARDEN CENTER MANAGER) Anatomical Region Laterality Modality Body, Pelvis N/A Radiographic Yulisa ging Narrative 07/23/2018 1:28 PM GARDEN CENTER MANAGER AP pelvis shows mild degenerative changes bilateral hips no fracture subluxation or dislocation us Kemal Wright MD IMG XR PROCEDURES Final Resu lt documented in this encounter Visit Diagnoses Not on filedocumented in this encounter Care Teams Drum Tester Relationship Specialty Start Date End Date Dominic Fernando MD [address] [facility] [address] [place] [address] PCP - General 08/13/17 documented as of this encounter
--- OUTSIDE RECORDS SUMMARY | 2024-09-04 18:39 | XMS_ITS | Encounter Summary ---
Author Organization [facility] Medical Group Address [address] [facility] [address] [place] [address] Care Team Providers Care Flowers Salesperson Name Role Phone Dominic Fernando MD Primary Care Provider Reason for Visit * Diagnostic Imaging (Routine) - Closed Specialty Diagnoses / Procedures Referred By Contac t Referred To Contact Diagnoses Pain in both knees, unspecified chronicity Procedures XR Knee Right 4+ View Kemal Wright MD Phone: tel: fax: Referral ID Status Reason Start Date Expiration Date Visits Re quested Visits Authorized [id number] Closed 07/23/2018 02/01/2020 1 1 Encounter Details Date Type Department Care Team (Latest Contact Info) Description 07/23/2018 11:16 AM MANAGER EQUIPMENT - 07/23/2018 11:59 PM MANAGER EQUIPMENT Hospital Encounter [facility] Medical [facility] Orthopedics and Sports Medicine [address] [place] [phone] Discharge Disposition: Discharge to home or self care Social History Tobacco Use Types Packs/Day Years Used Date Smoking Tobacco: Every Day Smokeless Tobacco: Never Comments Unknown Sex and Gender Information Value Date Recorded Sex Assigned at Not on file Legal Sex Female 11:26 PM MANAGER EQUIPMENT Gender Identity Not on file Sexual Orientation Not on file documented as of this encounter Medications at Time of Discharge cyanocobalamin (Vitamin B-12) 1,000 mcg tabletIndications :Prevention of Vitamin B12 Deficiency Take 1,000 mcg by mouth daily. levothyroxine (SYNTHROID, LEVOTHROID) 112 mcg tablet Take 112 mcg by mouth wheel truer before breakfast. 07/21/2018 XARELTO 20 mg tablet [...] Read Routine (OP Routine) 07/23/2018 11:27 AM MANAGER EQUIPMENT Pain in both knees, unspecified chronicity documented in this encounter Results * XR Knee Right 4+ View (07/23/2018 11:27 AM MANAGER EQUIPMENT) Anatomical Region Laterality Modality Lower Extremities, Knee Right [facility] Narrative 07/23/2018 1:28 PM MANAGER EQUIPMENT Severe osteoarthrosis right knee tricompartmental arthrosis no fractures subluxation or dislocation flexion contracture noted us Kemal Wright MD IMG XR PROCEDURES Final Resu lt documented in this encounter Visit Diagnoses Not on filedocumented in this encounter Care Teams Flowers Salesperson Relationship Specialty Start Date End Date Dominic Fernando MD [address] [facility] [address] [place] [address] PCP - General 08/13/17 documented as of this encounter
--- OUTSIDE RECORDS SUMMARY | 2024-09-04 18:39 | XMS_ITS | Encounter Summary ---
Author Organization [facility] Medical Group Address [address] [facility] [address] [place] [address] Care Team Providers Care Sheet Metal Fabricator Name Role Phone Dominic Fernando MD Primary Care Provider Reason for Referral * Diagnostic Imaging (Routine) - Closed Specialty Diagnoses / Procedures Referred By Contac t Referred To Contact Diagnoses Pain in both knees, unspecified chronicity Procedures XR Pelvis 1 or 2 Views Kemal Wright MD Phone: tel: fax: Referral ID Status Reason Start Date Expiration Date Visits Re quested Visits Authorized [id number] Closed 07/23/2018 02/01/2020 1 1 ER SECURITY ADMINISTRATOR * Diagnostic Imaging (Routine) - Closed Specialty Diagnoses / Procedures Referred By Contac t Referred To Contact Diagnoses Pain in both knees, unspecified chronicity Procedures XR Knee Left 4+ View Kemal Wright MD Phone: tel: fax: Referral ID Status Reason Start Date Expiration Date Visits Re quested Visits Authorized [id number] Closed 07/23/2018 02/01/2020 1 1 ER SECURITY ADMINISTRATOR * Diagnostic Imaging (Routine) - Closed Specialty Diagnoses / Procedures Referred By Contac t Referred To Contact Diagnoses Pain in both knees, unspecified chronicity Procedures XR Knee Right 4+ View Kemal Wright MD Phone: tel: fax: Referral ID Status Reason Start Date Expiration Date Visits Re quested Visits Authorized [id number] Closed 07/23/2018 02/01/2020 1 1 ER SECURITY ADMINISTRATOR Reason for Visit * Reason Comments Pain Pain Encounter Details Date Type Department Care Team (Latest Contact Info) Description 07/23/2018 11:15 AM SERVER SECURITY ADMINISTRATOR Office Visit [facility] Medical Group Orthopedics and Sports Medicine [address] [place] [phone] Kemal Wright MD [address] [place] [address] [address] [address] Primary osteoarthritis of right knee (Primary Dx); Pain in both knees, unspecified chronicity; Other tear of medial meniscus of left knee as current injury, initial encounter Social History Tobacco Use Types Packs/Day Years Used Date Smoking Tobacco: Every Day Smokeless Tobacco: Never Comments Unknown Sex and Gender Information Value Date Recorded Sex Assigned at Not on file Legal Sex Female 11:26 PM SERVER SECURITY ADMINISTRATOR Gender Identity Not on file Sexual Orientation Not on file documented as of this encounter Last Filed Vital Signs Vital Sign Reading Time Taken Comments Blood Pressure 136/78 07/23/2018 11:36 AM SERVER SECURITY ADMINISTRATOR Pulse 57 07/23/2018 11:36 AM SERVER SECURITY ADMINISTRATOR Temperature - - Respiratory Rate - - Oxygen Saturation - - Inhaled Oxygen Concentration - - Weight 83.9 kg (185 lb) 07/23/2018 11:36 AM SERVER SECURITY ADMINISTRATOR Height 162.6 cm (5' 4 ) 07/23/2018 11:36 AM SERVER SECURITY ADMINISTRATOR Body Mass Index 31.76 07/23/2018 11:36 AM SERVER SECURITY ADMINISTRATOR documented in this encounter Progress Notes * [...] a past medical history of Cervical cancer ([facility]); H/O: hysterectomy; Hiatal hernia; History of blood clots; Poor circulation; Stroke ([facility]); and Thyroid disease. PAST SURGICAL HISTORY [...] observation and physical therapy. CHARLENE Baxter MD ER SECURITY ADMINISTRATOR documented in this encounter Plan of Treatment Not on file documented as of this encounter Procedures Procedure Name Priority Date/Time Associated Diagnosis Comments XR KNEE LEFT 4 OR MORE VIEWS Schedule Routine, Read Routine (OP Routine) 07/23/2018 11:28 AM SERVER SECURITY ADMINISTRATOR Pain in both knees, unspecified chronicity XR KNEE RIGHT 4 OR MORE VIEWS Schedule Routine, Read Routine (OP Routine) 07/23/2018 11:27 AM SERVER SECURITY ADMINISTRATOR Pain in both knees, unspecified chronicity XR PELVIS 1 OR 2 VIEWS Schedule Routine, Read Routine (OP Routine) 07/23/2018 11:27 AM SERVER SECURITY ADMINISTRATOR Pain in both knees, unspecified chronicity documented in this encounter Results * XR Knee Left 4+ View (07/23/2018 11:28 AM SERVER SECURITY ADMINISTRATOR) Anatomical Region Laterality Modality Lower Extremities, Knee Left Radiogra phic Imaging Narrative 07/23/2018 1:28 PM SERVER SECURITY ADMINISTRATOR Mild degenerative changes left knee no fracture subluxation or dislocation Kemal Wright MD IMG XR PROCEDURES Final Resu lt * XR Knee Right 4+ View (07/23/2018 11:27 AM SERVER SECURITY ADMINISTRATOR) Anatomical Region Laterality Modality Lower Extremities, Knee Right Radiogra phic Imaging Narrative 07/23/2018 1:28 PM SERVER SECURITY ADMINISTRATOR Severe osteoarthrosis right knee tricompartmental arthrosis no fractures subluxation or dislocation flexion contracture noted Kemal Wright MD IMG XR PROCEDURES Final Resu lt * XR Pelvis 1 or 2 Views (07/23/2018 11:27 AM SERVER SECURITY ADMINISTRATOR) Anatomical Region Laterality Modality Body, Pelvis N/A Radiographic Yulisa ging Narrative 07/23/2018 1:28 PM SERVER SECURITY ADMINISTRATOR AP pelvis shows mild degenerative changes bilateral [...] mcg tablet Take 112 mcg by mouth harness rigger before breakfast. 07/21/2018 cyanocobalamin (Vitamin B-12) 1,000 [...] 11/15/2018 added in this encounter Care Teams Sheet Metal Fabricator Relationship Specialty Start Date End Date Dominic Fernando MD [address] [facility] [address] [place] [address] PCP - General 08/13/17 documented as of this encounter
--- OUTSIDE RECORDS SUMMARY | 2024-09-04 18:39 | XMS_ITS | Encounter Summary ---
Author Organization [facility] Healthcare Address [address] [place] [address] Care Team Providers Care Precision Machine Operator Name Role Phone Dominic Fernando MD Primary Care Provider [phone] Encounter Details Date Type Department Care Team (Late st Contact Info) Description 08/13/2017 9:46 PM EMERGENCY ROOM TECH - 08/13/2017 11:31 PM EMERGENCY ROOM TECH Emergency [facility] Emergency Department 1 [place] [address] Garfield Krause MD [address] [place] [address] 1 [place] [address] Discharge Disposition: Discharge to home or self care Social History Tobacco Use Types Packs/Day Years Used Date Smoking Tobacco: Never Assessed Comments Unknown Sex and Gender Information Value Date Recorded Sex Assigned at Not on file Legal Sex Female 11:26 PM EMERGENCY ROOM TECH Gender Identity Not on file Sexual Orientation Not on file documented as of this encounter Discharge Disposition Disposition Code Departure Means Destination Discharge to home or self care documented in this encounter Plan of Treatment Not on file documented as of this encounter Procedures Procedure Name Priority Date/Time Associated Diagnosis Comments XR SHOULDER 2+ VW Routine 08/14/2017 5:0 1 AM EMERGENCY ROOM TECH documented in this encounter Results * XR Shoulder 2+ Vw (08/14/2017 5:01 AM EMERGENCY ROOM TECH) Anatomical Region Laterality Modality Shoulder N/A Radiographic Yulisa ging 08/14/2017 5:01 AM EMERGENCY ROOM TECH Narrative 08/14/2017 5:12 AM EMERGENCY ROOM TECH XR Shoulder Min 2 Views L ??[id number] ??Acc#: ??[id number] DATE OF EXAM: ??Aug 13 2017 ?? XR Shoulder Min 2 Views L ??[id number] HISTORY: Fall. ??Left shoulder pain. COMPARISON: None [...] Fax: ??-- Attending Fax: ??-- Attending ID: ??[id number] Requesting ID: ??[id number] Report To 1 ID: ??[id number] Report To 1 Name: ??DR BESSY HUSSEIN Report To 1 FAX: ??-- NextGen Order #: ?? Procedure Note Miscellaneous, Not In File - 08/13/2017 XR Shoulder Min 2 Views L [id number] Acc#: [id number] DATE OF EXAM: Aug 13 2017 XR Shoulder Min 2 Views L [id number] HISTORY: Fall. Left shoulder pain. COMPARISON: None [...] Fax: -- Attending Fax: -- Attending ID: [id number] Requesting ID: [id number] Report To 1 ID: [id number] Report To 1 Name: DR BESSY HUSSEIN Report To 1 FAX: -- NextGen Order #: Alley Flower ENGINEER CHIEF IMG XR PROCEDURES Final Res ult documented in this encounter Visit Diagnoses Not on filedocumented in this encounter Care Teams Precision Machine Operator Relationship Specialty Start Date End Date Dominic Fernando MD [address] [facility] [address] [place] [address] PCP - General 08/13/17 documented as of this encounter
--- OUTSIDE RECORDS SUMMARY | 2024-09-04 18:39 | XMS_ITS | Encounter Summary ---
Author Organization [facility] Healthcare Address [address] [place] [address] Care Team Providers Care Forensic Social Worker Name Role Phone Miscellaneous, Not In File [...] file Legal Sex Female 11:26 PM ASSISTANT PROFESSOR OF MATHEMATICS Gender Identity Not on file Sexual Orientation Not on file documented as of this encounter Discharge Disposition Disposition Code Departure Means Destination Discharge to home or self care documented in this encounter Plan of Treatment Not on file documented as of this encounter Visit Diagnoses Not on filedocumented in this encounter Care Teams Forensic Social Worker Relationship Specialty Start Date End Date Miscellaneous, Not In File PCP - General 01/23/1708/12 documented as of this encounter
--- OUTSIDE RECORDS SUMMARY | 2024-09-04 18:39 | XMS_ITS | Encounter Summary ---
Author Organization [facility] Healthcare Address [address] [place] [address] Care Team Providers Care Head Animal Trainer Name Role Phone Miscellaneous, Not In File Primary Care Provider Unavailable Encounter Details Date Type Department Care Team (Latest Contact Info) Description 06/12/2017 4:57 AM CDT - 06/12/2017 6:28 AM CDT Hospital Encounter [facility] José Miguel Staley MD [address] [facility] [place] [place] [phone] Superficial foreign body of right little finger; Other foreign body or object entering through skin, initial encounter; Hyperlipidemia; Other shelter (current) drug therapy Social History Tobacco Use Types Packs/Day Years Used Date Smoking Tobacco: Never Assessed Comments Unknown Sex and Gender Information Value Date Recorded Sex Assigned at Not on file Legal Sex Female 11:26 PM GASFITTER Gender Identity Not on file Sexual Orientation [...] encounter Hyperlipidemia Other and unspecified hyperlipidemia Other shelter (current) drug therapy documented in this encounter Care Teams Head Animal Trainer Relationship Specialty Start Date End Date Miscellaneous, Not In File PCP - General 01/23/1708/12 documented as of this encounter
--- OUTSIDE RECORDS SUMMARY | 2024-09-04 18:39 | XMS_ITS | Encounter Summary ---
Author Organization [facility] Medical Group Address [address] [facility] [address] [place] [address] Care Team Providers Care Infectious Disease Physician Name Role Phone Dominic Fernando MD Primary Care Provider [phone] Reason for Visit * Diagnostic Imaging (Routine) - Closed Specialty Diagnoses / Procedures Referred By Contac t Referred To Contact Diagnoses Pain in both knees, unspecified chronicity Procedures XR Knee Left 4+ View Kemal Wright MD Phone: tel: fax: Referral ID Status Reason Start Date Expiration Date Visits Re quested Visits Authorized [id number] Closed 07/23/2018 02/01/2020 1 1 Encounter Details Date Type Department Care Team (Latest Contact Info) Description 07/23/2018 11:16 AM DISPUTE COORDINATOR - 07/23/2018 11:59 PM DISPUTE COORDINATOR Hospital Encounter [facility] Medical [facility] Orthopedics and Sports Medicine [address] [place] [phone] Discharge Disposition: Discharge to home or self care Social History Tobacco Use Types Packs/Day Years Used Date Smoking Tobacco: Every Day Smokeless Tobacco: Never Comments Unknown Sex and Gender Information Value Date Recorded Sex Assigned at Not on file Legal Sex Female 11:26 PM DISPUTE COORDINATOR Gender Identity Not on file Sexual Orientation Not on file documented as of this encounter Medications at Time of Discharge cyanocobalamin (Vitamin B-12) 1,000 mcg tabletIndications :Prevention of Vitamin B12 Deficiency Take 1,000 mcg by mouth daily. levothyroxine (SYNTHROID, LEVOTHROID) 112 mcg tablet Take 112 mcg by mouth reverse engineer before breakfast. 07/21/2018 XARELTO 20 mg tablet [...] Read Routine (OP Routine) 07/23/2018 11:28 AM DISPUTE COORDINATOR Pain in both knees, unspecified chronicity documented in this encounter Results * XR Knee Left 4+ View (07/23/2018 11:28 AM DISPUTE COORDINATOR) Anatomical Region Laterality Modality Lower Extremities, Knee Left [facility] Narrative 07/23/2018 1:28 PM DISPUTE COORDINATOR Mild degenerative changes left knee no fracture subluxation or dislocation us Kemal Wright MD IMG XR PROCEDURES Final Resu lt documented in this encounter Visit Diagnoses Not on filedocumented in this encounter Care Teams Infectious Disease Physician Relationship Specialty Start Date End Date Dominic Fernando MD [address] [facility] 209 INTERNAL MEDICINE [place] [id number] PCP - General 08/13/17 documented as of this encounter
--- OUTSIDE RECORDS SUMMARY | 2024-09-04 18:40 | XMS_ITS | Encounter Summary ---
Author Organization [facility] Healthcare Address [address] [place] [id number] Care Team Providers Care Engineer Conductor Name Role Phone Miscellaneous, Not In File Primary Care Provider Unavailable Encounter Details Date Type Department Care Team (Late st Contact Info) Description 01/23/2017 8:01 AM CDT - 01/23/2017 10:29 AM CDT Emergency [facility] Emergency Department [address] [place] [address] Jennie Vazquez MD [address] [place] [address] Discharge Disposition: Discharge to home or self care Social History Tobacco Use Types Packs/Day Years Used Date Smoking Tobacco: Never Assessed Comments Unknown Sex and Gender Information Value Date Recorded Sex Assigned at Not on file Legal Sex Female 11:26 PM ENVIRONMENTAL HEALTH AND SAFETY LEADER Gender Identity Not on file Sexual Orientation [...] CDT XR Foot Min 3 Views L ??[id number] ??Acc#: ??[id number] DATE OF EXAM: ??Jan 23 2017 ?? EXAM: XR Foot Min 3 Views L ??[id number] ; oblique and lateral views of the [...] Fax: ??-- Attending Fax: ??-- Attending ID: ??[id number] Requesting ID: ??[id number] NextGen Order #: ?? Procedure Note Miscellaneous, Not In File / Provider, MD Adam - 02/09/2017 XR Foot Min 3 Views L [id number] Acc#: [id number] DATE OF EXAM: Jan 23 2017 EXAM: XR Foot Min 3 Views L [id number] ; oblique and lateral views of the [...] Fax: -- Attending Fax: -- Attending ID: [id number] Requesting ID: [id number] NextGen Order #: us Not In File Miscellaneous IMG XR PROCEDURES Jennifer l Result documented in this encounter Visit Diagnoses Not on filedocumented in this encounter Care Teams Engineer Conductor Relationship Specialty Start Date End Date Miscellaneous, Not In File PCP - General 01/23/1708/12 documented as of this encounter
--- OUTSIDE RECORDS SUMMARY | 2024-09-04 18:40 | XMS_ITS | Encounter Summary ---
Author Organization [facility] Facility Care Team Providers Care Manager Medical Affairs Name Role Phone Unavailable Primary Care Provider Unavailabl e Encounter Details Date Type Department Care Team (Late st Contact Info) Description 05/06/2007 - 05/06/2007 11:59 PM CDT Hospital Encounter [facility] Dominic Marcial MD [address] [facility] [address] [facility] [address] [place] [address] Social History Tobacco Use Types Packs/Day Years Used Date Smoking Tobacco: Never Assessed Comments Unknown Sex and Gender Information Value Date Recorded Sex Assigned at Not on file Legal Sex Female 11:26 PM BONDING EQUIPMENT OPERATOR Gender Identity Not on file Sexual Orientation Not on file documented as of this encounter Plan of Treatment Not on file documented as of this encounter Visit Diagnoses Not on filedocumented in this encounter
--- OUTSIDE RECORDS SUMMARY | 2024-09-04 18:40 | XMS_ITS | Encounter Summary ---
Author Organization [facility] Healthcare Address [address] [place] [address] Care Team Providers Care Web Press Operator Helper Offset Name Role Phone Unavailable Primary Care Provider Unavailabl e Encounter Details Date Type Department Care Team (Latest Contact Info) Description 08/08/2014 8:34 AM MACHINE PACKAGING TECHNICIAN - 08/08/2014 12:32 PM MACHINE PACKAGING TECHNICIAN Hospital Encounter [facility] Mily Escobar MD [address] [facility] [place] [address] Sprain of ankle; Sprain and strain of [...] on file Legal Sex Female 11:26 PM MACHINE PACKAGING TECHNICIAN Gender Identity Not on file Sexual Orientation Not on file documented as of this encounter Last Filed Vital Signs Vital Sign Reading Time Taken Comments Blood Pressure 130/69 08/08/2014 8:48 AM MACHINE PACKAGING TECHNICIAN Pulse 84 08/08/2014 8:48 AM MACHINE PACKAGING TECHNICIAN Temperature 36.4 ??C (97.5 ??F) 08/08/2014 8:48 AM CS T Respiratory Rate - - Oxygen Saturation 94% 08/08/2014 8:48 AM MACHINE PACKAGING TECHNICIAN Inhaled Oxygen Concentration - - Weight 86.2 kg (190 lb) 08/08/2014 8:48 AM MACHINE PACKAGING TECHNICIAN Height 162.6 cm (5' 4 ) 08/08/2014 8:48 AM MACHINE PACKAGING TECHNICIAN Body Mass Index 32.61 08/08/2014 8:48 AM MACHINE PACKAGING TECHNICIAN documented in this encounter Plan of Treatment Not on file documented as of this encounter Procedures Procedure Name Priority Date/Time Associated Diagnosis Comments XR FOOT RIGHT 3 OR MORE VIEWS Routine 08/08/2014 12:00 AM MACHINE PACKAGING TECHNICIAN XR ANKLE RIGHT 3 OR MORE VIEWS Routine 08/08/2014 12:00 AM MACHINE PACKAGING TECHNICIAN XR KNEE RIGHT 1 OR 2 VIEWS Routine 08/08/2014 12:00 AM MACHINE PACKAGING TECHNICIAN documented in this encounter Results * XR Knee Right 1 or 2 Views (08/08/2014 12:00 AM MACHINE PACKAGING TECHNICIAN) Anatomical Region Laterality Modality Lower Extremities, Knee Right [facility] 08/08/2014 Impressions 08/08/2014 11:27 AM MACHINE PACKAGING TECHNICIAN ?? 1. ??No acute fracture or malalignment. THIS IS AN ELECTRONICALLY VERIFIED REPORT 08/08/2014 11:24 AM: ??Kemal Otoole D.O. Kemal Otoole D.O. :as 11:24 AM 11:24 AM [facility] [EOD] Narrative 08/08/2014 11:27 AM MACHINE PACKAGING TECHNICIAN EXAMINATION: ??AP and lateral Right knee. HISTORY: [...] Otoole D.O. :as 11:24 AM 11:24 AM [facility] [EOD] us Janeen Kendall ASSURANCE ASSISTANT IMG XR PROCEDURES Final Resul t * XR Ankle Right 3 or More Views (08/08/2014 12:00 AM MACHINE PACKAGING TECHNICIAN) Anatomical Region Laterality Modality Lower Extremities, Ankle Right Radiogr aphic Imaging 08/08/2014 Impressions 08/08/2014 11:28 AM MACHINE PACKAGING TECHNICIAN ?? 1. ??No acute fracture or malalignment. THIS IS AN ELECTRONICALLY VERIFIED REPORT 08/08/2014 11:24 AM: ??Kemal Otoole D.O. Kemal Otoole D.O. :as 11:24 AM 11:24 AM [facility] [EOD] Narrative 08/08/2014 11:28 AM MACHINE PACKAGING TECHNICIAN EXAMINATION: ??Three views ??Rightankle. HISTORY: ??Injury. TECHNIQUE: [...] Otoole D.O. :as 11:24 AM 11:24 AM [facility] [EOD] us Janeen Kendall ASSURANCE ASSISTANT IMG XR PROCEDURES Final Resul t * XR Foot Right 3 or More Views (08/08/2014 12:00 AM MACHINE PACKAGING TECHNICIAN) Anatomical Region Laterality Modality Lower Extremities, Foot Right [facility] 08/08/2014 Impressions 08/08/2014 11:28 AM MACHINE PACKAGING TECHNICIAN ?? 1. No acute fracture or malalignment. THIS IS AN ELECTRONICALLY VERIFIED REPORT 08/08/2014 11:25 AM: ??Kemal Otoole D.O. Kemal Otoole D.O. :as 11:25 AM 11:25 AM [facility] [EOD] Narrative 08/08/2014 11:28 AM MACHINE PACKAGING TECHNICIAN EXAMINATION: ??Three views of the Right foot. [...] Otoole D.O. :as 11:25 AM 11:25 AM [facility] [EOD] us Janeen Kendall NP IMG XR [...]
--- OUTSIDE RECORDS SUMMARY | 2024-09-04 18:40 | XMS_ITS | Encounter Summary ---
Author Organization [facility] Facility Care Team Providers Care Ground Equipment Mechanic Name Role Phone Unavailable Primary Care Provider Unavailabl e Encounter Details Date Type Department Care Team (Late st Contact Info) Description 03/15/2012 7:36 AM CDT - 03/15/2012 3:40 PM T Hospital Encounter [facility] Daren Garcia MD [address] [facility] [address] [place] [address] Backache Social History Tobacco Use Types Packs/Day Years Used Date Smoking Tobacco: Never Assessed Comments Unknown Sex and Gender Information Value Date Recorded Sex Assigned at Not on file Legal Sex Female 11:26 PM LOAN ASSISTANT Gender Identity Not on file Sexual Orientation Not on file documented as of this encounter Plan of Treatment Not on file documented as of this encounter Visit Diagnoses Diagnosis Backache Unspecified backache documented in this encounter
--- OUTSIDE RECORDS SUMMARY | 2024-09-04 18:40 | XMS_ITS | Encounter Summary ---
Author Organization [facility] Facility Care Team Providers Care Band Master Name Role Phone Unavailable Primary Care Provider Unavailabl e Encounter Details Date Type Department Care Team (Late st Contact Info) Description 03/13/2010 9:31 PM CDT - 03/13/2010 10:03 PM T Hospital Encounter [facility] Social History Tobacco Use Types Packs/Day Years Used Date Smoking Tobacco: Never Assessed Comments Unknown Sex and Gender Information Value Date Recorded Sex Assigned at Not on file Legal Sex Female 11:26 PM CERTIFIED CODER Gender Identity Not on file Sexual Orientation Not on file documented as of this encounter Plan of Treatment Not on file documented as of this encounter Visit Diagnoses Not on filedocumented in this encounter
== END 2024-08-30 19:46 | disposition home or self-care (01) ==
PROVIDERS: Emergency Provider Emergency Medicine; PCP Family Medicine
DX: M23.92 Unspecified internal derangement of left knee (principal); S89.92XA Unspecified injury of left lower leg, initial encounter; J44.9 Chronic obstructive pulmonary disease, unspecified; I25.10 Atherosclerotic heart disease of native coronary artery without angina pectoris; E66.9 Obesity, unspecified; Z68.32 Body mass index [BMI] 32.0-32.9, adult; E78.5 Hyperlipidemia, unspecified; E03.9 Hypothyroidism, unspecified; E53.8 Deficiency of other specified B group vitamins; E55.9 Vitamin D deficiency, unspecified; M19.90 Unspecified osteoarthritis, unspecified site; M79.7 Fibromyalgia; K21.9 Gastro-esophageal reflux disease without esophagitis; F17.210 Nicotine dependence, cigarettes, uncomplicated; Z98.1 Arthrodesis status; Z96.651 Presence of right artificial knee joint; Z86.718 Personal history of other venous thrombosis and embolism; Z86.0101 Personal history of adenomatous and serrated colon polyps; Z85.41 Personal history of malignant neoplasm of cervix uteri; Z90.711 Acquired absence of uterus with remaining cervical stump; Z90.49 Acquired absence of other specified parts of digestive tract; Z86.16 Personal history of COVID-19; Z79.82 Long term (current) use of aspirin; Z79.01 Long term (current) use of anticoagulants; Z79.899 Other long term (current) drug therapy; W54.1XXA Struck by dog, initial encounter
CPT/HCPCS: 73562; 99283; A9270

== ENCOUNTER 2024-09-07 09:11 | Outpatient (CLI) | payer MEDICARE, MEDICAID, SELFPAY ==
[2024-09-11 18:33] LABS: Calprotectin, Stool 233 mcg/g
== END 2024-09-07 09:12 | disposition home or self-care (01) ==
LOC: ANHLAB 09:12
PROVIDERS: PCP Family Medicine; Visit Provider Internal Medicine Gastroenterology
DX: R10.30 Lower abdominal pain, unspecified (principal); K52.9 Noninfective gastroenteritis and colitis, unspecified
CPT/HCPCS: 83993; 87045; 87177; 87209; 87427; 87449

== ENCOUNTER 2024-09-07 19:44 | Emergency (ER) | payer MEDICARE, MEDICAID, SELFPAY ==
--- NOTE | ~2024-09-07 | CT_ITS ---
EXAMINATION: CT abdomen pelvis w con DATE: 09/08/2024 00:13 INDICATION: Low abdominal pain. TECHNIQUE: Computed tomography (CT) of the abdomen and pelvis was performed with 100 mL Omnipaque 350 intravenous contrast. Automated exposure control and iterative reconstruction technique were employe d. The dose-length product was 722.60 mGy-cm. COMPARISON: CT abdomen and pelvis 08/13/2024, 04/09/24 FINDINGS: The visualized portions of lung bases demonstrate mild emphysema. No pleural effusion. The heart size is normal. No pericardial effusion. There is a small sliding hiatal hernia. The liver and spleen are normal. There are changes of cholecystectomy. The pancreas and adrenal glands are normal. There are cysts in the kidneys measuring up to 8 mm on the right. There is a diverticulum of the seco nd portion of the duodenum. There are no dilated loops of bowel. The appendix is normal. There is wal l thickening of the sigmoid colon with adjacent mild fat stranding. There are no pathologically enlar ged lymph nodes. There is no free intraperitoneal fluid. There is mild thoracic and lumbar spondylosi s. IMPRESSION: 1. Chronic sigmoid diverticulitis. No perforation or abscess. Reviewed, dictated and finalized at location A. [facility]
[2024-09-07 19:50] VITALS: BP 131/66; PULSE 103; RESP 14; TEMP 36.4; O2SAT 98
[2024-09-07 20:21] LABS: Basophils Percent Auto 0.5 % (0.2-1.2); Eosinophils Absolute Auto 0.3 K/mm3 (0-0.3); Eosinophils Percent Auto 3.6 % (0-4.4); Hematocrit 40.8 % (37.0-47.0); Hemoglobin 13.1 g/dL (12.0-15.0); Immature Granulocyte Absolute 0.03 K/mm3 (0.00-0.031); Immature Granulocyte Percent A 0.4 % (0-0.5); Lymphocytes Absolute Auto 1.85 K/mm3 (0.9-3.2); Mean Corpuscular HGB Conc 32.1 g/dl (32-36); Mean Corpuscular Volume 87.2 fl (80-100); Mean Platelet Volume 9.4 fl (7.4-10.4); Monocytes Absolute Auto 0.5 K/mm3 (0.1-0.6); Monocytes Percent Auto 5.7 % (2.6-8.5); Neutrophils Absolute Auto 5.4 K/mm3 (1.3-6.7); Neutrophils Percent Auto 66.8 % (45.5-73.1); Platelet Count Result 398 k/mm3 (150-375); Red Blood Count 4.68 M/mm3 (4.2-5.4); Red Cell Distribution Width 14.2 % (11.5-14.5); White Blood Count 8.1 K/mm3 (4.5-10.0)
[2024-09-07 20:33] LABS: Alanine Aminotransferase 29 U/L (6-35); Albumin Level 4.1 g/dL (3.5-5.1); Alkaline Phosphatase 86 U/L (38-126); Anion Gap 4 mmol/L (4-12); Aspartate Amino Transferase 29 U/L (14-36); Bilirubin,Total 0.5 mg/dL (0.2-1.3); Blood Urea Nitrogen 10 mg/dL (7-17); Calcium 9.2 mg/dL (8.4-10.2); Carbon Dioxide 25 mmol/L (22-30); Chloride 108 mmol/L (98-107); Estimated CRCL calculation 59 ml/min; Estimated Glomerular Filt Rate > 60; Glucose 114 mg/dL (65-110); Lipase 85 U/L (23-300); Potassium 3.7 mmol/L (3.4-5.0); Sodium 137 mmol/L (137-145)
--- NOTE | 2024-09-07 23:21 | ED_ITS ---
HPI - Abdominal Pain General Chief Complaint: Abdominal Pain <Eusebia Yen PA-C - Last Filed: 09/08/24 03:27> Stated Complaint: abd and back pain <Eusebia Yen PA-C - Last Filed: 09/08/24 03:27> Time Seen by Provider: 09/07/24 22:56 <Eusebia Yen PA-C - Last Filed: 09/08/24 03:27> History of Present Illness HPI narrative: 64-year-old female with a history of CVA, hypothyroidism, CAD, hyperlipidemia, GERD, fibromyalgia, COPD, CKD presents to the ED for abdominal pain and concerns for colitis. Patient states she has been having pain over the past couple of days, progressing with time. She states the pain is lower in her abdomen. Describes it as a cramp and now radiates into her back. She states this is now her colitis has presented in the past and is concerned she has colitis. She reports nausea but denies vomiting or diarrhea. Last bowel movement was this morning. Denies dysuria or hematuria, fever. Endorses a history of appendectomy, cholecystectomy, tubal ligation. Patient's last colonoscopy was 11/26/2023 which showed diverticulosis without perforation or abscess, no bleeding and internal hemorrhoids. <Eusebia Yen PA-C - Last Filed: 09/08/24 03:27> Related Data Home Medications: Home Medications ?Medication ?Instructions ?Recorded ?Confirmed ?Last Taken ?Type rivaroxaban 20 mg tablet (Xarelto) 20 mg PO DAILY 07/29/19 09/07/24 11/23/23 History folic acid 1 mg tablet 1 mg PO DAILY 08/04/19 09/07/24 09/22/21 History aspirin 81 mg chewable tablet 81 mg PO DAILY 10/06/22 09/07/24 Unknown History ergocalciferol (vitamin D2) 1,250 1,250 mcg PO DAILY 03/24/24 09/07/24 Unknown History mcg (50,000 unit) capsule ferrous sulfate 325 mg (65 mg 325 mg PO DAILY 03/24/24 09/07/24 Unknown History iron) tablet (Feosol) lactobacillus combination no.9 4 4,000 mmu cells PO DAILY 03/24/24 09/07/24 Unknown History billion cell capsule (Adult 50 Plus Probiotic) <Eusebia Yen PA-C - Last Filed: 09/08/24 03:27> Allergies/Adverse Reactions: Allergies Allergy/AdvReac Type Severity Reaction Status Date / Time codeine Allergy Severe Anaphylaxis Verified 09/07/24 09:36 hydromorphone Allergy Severe Blister Verified 09/07/24 09:36 latex Allergy Severe Blister Verified 09/07/24 09:36 levofloxacin Allergy Severe BLISTERS Verified 09/07/24 09:36 ON BODY morphine Allergy Severe Hypotension Verified 09/07/24 09:36 oxycodone Allergy Severe Blister Verified 09/07/24 09:36 penicillin G Allergy Severe ANAPHYLACTI Verified 09/07/24 09:36 C Penicillins Allergy Severe Anaphylaxis Verified 09/07/24 09:36 shellfish derived Allergy Severe Swelling Verified 09/07/24 09:36 of Lip/Tongue/Throat vancomycin Allergy Severe Red [place], Verified 09/07/24 09:36 Patient unsure of reaction hydrocodone Allergy Intermediate Itching Verified 09/07/24 09:36 dexamethasone (From Maxitrol) Allergy Swelling Verified 09/07/24 09:36 of the Eye neomycin (From Maxitrol) Allergy Swelling Verified 09/07/24 09:36 of the Eye polymyxin B (From Maxitrol) Allergy Swelling Verified 09/07/24 09:36 of the Eye <Eusebia Yen PA-C - Last Filed: 09/08/24 03:27> Review of Systems 2 Review of Systems: All systems reviewed & are unremarkable except as noted in HPI and below <Eusebia Yen PA-C - Last Filed: 09/08/24 03:27> [facility] Past Medical History Medical History: Medical History History of diverticulitis of colon Lower abdominal pain Diarrhea Abdominal pain BMI 34.0-34.9,adult COVID-19 (01/2022) Adenomatous colon polyp Tobacco abuse Colon, diverticulosis COPD (chronic obstructive pulmonary disease) Obesity Positive colorectal cancer screening using Cologuard test On salvage determiner drug therapy Recurrent falls Colon cancer screening History of colon polyps Otitis media Palpitations Hypersomnia Low hemoglobin Current use of salvage determiner anticoagulation Tobacco dependence Bradycardia Vertigo History of cervical cancer Fibromyalgia Osteoarthritis Diverticulosis With history of diverticulitis. GERD (gastroesophageal reflux disease) History of colon polyps Hyperlipidemia Carotid artery disease Status post left carotid endarterectomy. Hypothyroidism Dizziness CVA (cerebral vascular accident) With short-term memory loss. Mouth pain Dysphagia Adult hypothyroidism Hx of deep venous thrombosis Hyperglycemia Other and unspecified hyperlipidemia Nicotine abuse Personal history of nicotine dependence Symptomatic PVCs On metoprolol 50 milligrams daily. Vitamin B12 deficiency Vitamin D deficiency <Eusebia Yen PA-C - Last Filed: 09/08/24 03:27> Surgical History Surgical History: Surgical History S/P medial meniscectomy of left knee (09/2021) Hx of tonsillectomy History of shoulder surgery History of neck surgery Hx of total knee arthroplasty Right History of arthroplasty of right knee History of left-sided carotid endarterectomy Status post cervical spinal fusion Status post right rotator cuff repair Status post tubal ligation Status post left breast biopsy Status post tonsillectomy Status post cholecystectomy Status post partial hysterectomy For cervical cancer. S/P cholecystectomy <Eusebia Yen PA-C - Last Filed: 09/08/24 03:27> Family History Family History: Family History Mother Depression Family history of diabetes mellitus in first degree relative Diabetes mellitus Father Family history of diabetes mellitus in first degree relative Acute myocardial infarction Diabetes mellitus Sibling Hepatitis Pulmonary embolism Sibling No problems noted. Other Family history of allergic disorder Family history of cardiovascular disease Family history of malignant neoplasm Hypertension <Eusebia Yen PA-C - Last Filed: 09/08/24 03:27> Social History Social History: Social History Social History: The patient is . She lives with her son in [place]. She designates her sons, Laith Howard and Kemal Islas, as her surrogate decision makers and she wishes to be a full code. She has smoked at least 1 pack of cigarettes per day for almost 40 years. She denies alcohol and drug abuse. Smoking packs per day: 1 Smoking cigarettes per day: 20.0 Years smoked: 40 Smoking pack-years: 40.00 Smoking status: Former smoker Tobacco type: cigarettes Second hand tobacco smoke exposure: Yes Smoking end date: 07/17/23 Additional smoking assessment comments: CUTTING DOWN TRYING TO QUIT MOST DAYS LESS THAN 0.5PK, Alcohol intake: current Substance use: never Substance use type: does not use Do You Feel Safe in your Home?: Yes Lack of Transportation: No Lack of Food: Never True Current Housing: I Have Housing Concerned About Future Housing: No Difficulty Paying Gas/Electric Bills: Decline to Answer Difficulty Paying for Meds: No Currently Unemployed: No Education: Decline to Answer Difficulty w/ Childcare or Family Care: No Living arrangements: with family Occupation/Education: retired Additional occupation/education comments: [employer] Gender identity (if verbalized by the patient): Female Sexual Orientation (if Verbalized by the Patient): Straight or Heterosexual Spiritual care concerns: No Agree to blood products: Yes <Eusebia Yne PA-C - Last Filed: 09/08/24 03:27> Exam 2 Narrative: GENERAL: Well-appearing, well-nourished, and in no acute distress. HEAD: Normocephalic, atraumatic. EYES: EOMI. ENT: Nares clear, no rhinorrhea or epistaxis. Mucous membranes moist. NECK: Supple. CHEST: Clear to auscultation. No respiratory distress. HEART: Regular rate and rhythm. No murmur heard. Normal peripheral pulses. ABDOMEN: Normoactive bowel sounds. Abdomen soft with tenderness in the suprapubic region 4 quadrant. No rebound or rigidity. EXTREMITIES: Normal range of motion. No edema. SKIN: Warm, dry, no rash. NEURO: No focal deficits. Alert and oriented x3 <Eusebia Yen PA-C - Last Filed: 09/08/24 03:27> Course Vital Signs Vital signs: Vital Signs Temperature 97.6 F 09/07/24 19:50 Pulse Rate 103 H 09/07/24 19:50 Respiratory Rate 14 09/07/24 19:50 Blood Pressure 131/66 09/07/24 19:50 Pulse Oximetry 98 09/07/24 19:50 Temperature 97.6 F 09/07/24 19:50 Pulse Rate 82 09/08/24 03:17 Respiratory Rate 14 09/08/24 03:17 Blood Pressure 103/63 09/08/24 03:17 Pulse Oximetry 97 09/08/24 03:17 <Eusebia Yen PA-C - Last Filed: 09/08/24 03:27> Vital Signs Temperature 97.6 F 09/07/24 19:50 Pulse Rate 103 H 09/07/24 19:50 Respiratory Rate 14 09/07/24 19:50 Blood Pressure 131/66 09/07/24 19:50 Pulse Oximetry 98 09/07/24 19:50 Temperature 97.6 F 09/07/24 19:50 Pulse Rate 82 09/08/24 03:17 Respiratory Rate 14 09/08/24 03:17 Blood Pressure 103/63 09/08/24 03:17 Pulse Oximetry 97 09/08/24 03:17 <Evi Street MD - Last Filed: 09/08/24 04:19> MDM - Abdominal Pain MDM Narrative Medical decision making narrative: 64-year-old female presents to the emergency department for lower abdominal pain for the past couple of days with associated nausea. Vitals are stable. Patient is afebrile nontoxic appearing. Exam is significant for the above. CBC shows no leukocytosis or anemia. Chemistries are unremarkable. Urinalysis without UTI. Lipase is normal. Patient received Bentyl, Zofran and Tylenol. After patient received medications and IV contrast, she began developing a rash inferior to her eyelids. She has no lip or tongue swelling, no difficulty breathing, no wheezing. She was given IV Benadryl. Pending CT abdomen pelvis results at time of sign-out to Dr. Street. Vitals remained stable. <Eusebia Yen PA-C - Last Filed: 09/08/24 03:27> 64-year-old female presents to the emergency department for lower abdominal pain for the past couple of days with associated nausea. Vitals are stable. Patient is afebrile nontoxic appearing. Exam is significant for the above. CBC shows no leukocytosis or anemia. Chemistries are unremarkable. Urinalysis without UTI. Lipase is normal. Patient received Bentyl, Zofran and Tylenol. After patient received medications and IV contrast, she began developing a rash inferior to her eyelids. She has no lip or tongue swelling, no difficulty breathing, no wheezing. She was given IV Benadryl. Pending CT abdomen pelvis results at time of sign-out to Dr. Street. Vitals remained stable. Yenifer: Patient was signed out to me pending CT abdomen pelvis with IV contrast. CT was obtained and independently interpreted by me and revealing colitis. On repeat assessment of the patient, patient is resting comfortably asleep. Patient was informed of her blood work and CT results. She is currently denying any pain. Abdomen is soft, nontender non peritoneal. Patient was instructed that she will need to follow-up with her primary care physician within the next 3-5 days and return to the ED if any new or worsening symptoms develop. She was discharged in stable condition. <Evi Street MD - Last Filed: 09/08/24 04:19> Differential Diagnosis Differential diagnosis: Likely acute appendicitis, constipation, diverticulitis, gastroenteritis, pancreatitis and small bowel obstruction <Evi Street MD - Last Filed: 09/08/24 04:19> Lab Data Result diagrams: 09/07/24 20:11 09/07/24 20:11 <Eusebia Yen PA-C - Last Filed: 09/08/24 03:27> Labs: Lab Results 09/07/24 09/08/24 Range/Units 20:11 01:25 WBC 8.1 (4.5-10.0) K/mm3 RBC 4.68 (4.2-5.4) M/mm3 Hgb 13.1 (12.0-15.0) g/dL Hct 40.8 (37.0-47.0) % MCV 87.2 (80-100) fl MCH 28.0 (26-34) pg MCHC 32.1 (32-36) g/dl RDW 14.2 (11.5-14.5) % Plt Count 398 H (150-375) k/mm3 MPV 9.4 (7.4-10.4) fl Immature Gran % (Auto) 0.4 (0-0.5) % Neut % (Auto) 66.8 (45.5-73.1) % Lymph % (Auto) 23.0 (18.3-44.2) % [place] % (Auto) 5.7 (2.6-8.5) % Eos % (Auto) 3.6 (0-4.4) % Baso % (Auto) 0.5 (0.2-1.2) % Lymph # (Auto) 1.85 (0.9-3.2) K/mm3 [place] # (Auto) 0.5 (0.1-0.6) K/mm3 Eos # (Auto) 0.3 (0-0.3) K/mm3 Baso # (Auto) 0.0 (0.0-0.1) K/mm3 Abs Immat Gran (auto) 0.03 (0.00-0.031) K/mm3 Absolute Neuts (auto) 5.4 (1.3-6.7) K/mm3 Absolute Nucleated RBC 0.000 (0.0-0.012) K/mm3 Nucleated RBC % 0.0 (0.0-0.2) % Sodium 137 (137-145) mmol/L Potassium 3.7 (3.4-5.0) mmol/L Chloride 108 H (98-107) mmol/L Carbon Dioxide 25 (22-30) mmol/L Anion Gap 4 (4-12) mmol/L BUN 10 (7-17) mg/dL Creatinine 0.90 (0.7-1.0) mg/dL Estim Creat Clear Calc 59 ml/min Estimated GFR > 60 (59 - ) Glucose 114 H (65-110) mg/dL Calcium 9.2 (8.4-10.2) mg/dL Total Bilirubin 0.5 (0.2-1.3) mg/dL AST 29 (14-36) U/L ALT 29 (6-35) U/L Alkaline Phosphatase 86 (38-126) U/L Total Protein 7.0 (6.3-8.2) g/dL Albumin 4.1 (3.5-5.1) g/dL Lipase 85 (23-300) U/L Urine Color Yellow (Yellow) Urine Appearance Clear (Clear) Urine pH 5.0 (5.0-9.0) Ur Specific [place] > 1.045 H (1.001-1.035) Urine Protein Trace (Negative) mg/dL Urine Glucose (UA) Negative (Negative) mg/dL Urine Ketones Negative (Negative) mg/dL Ur Blood (Man) Negative (Negative) Urine Nitrate Negative (Negative) Urine Bilirubin Negative (Negative) Urine Urobilinogen 0.2 (<2.0) mg/dL Leukocyte Esterase Rfl Negative (Negative) DIMITRIOS/UL Urine RBC 0-2 (0-2) /hpf Urine WBC 0-5 (0-3) /hpf Ur Squamous Epith Cells Occasional (Few) /hpf Urine Bacteria None seen /hpf Urine Casts 0-2 <Eusebia Yen PA-C - Last Filed: 09/08/24 03:27> Lab Results 09/07/24 09/08/24 Range/Units 20:11 01:25 WBC 8.1 (4.5-10.0) K/mm3 RBC 4.68 (4.2-5.4) M/mm3 Hgb 13.1 (12.0-15.0) g/dL Hct 40.8 (37.0-47.0) % MCV 87.2 (80-100) fl MCH 28.0 (26-34) pg MCHC 32.1 (32-36) g/dl RDW 14.2 (11.5-14.5) % Plt Count 398 H (150-375) k/mm3 MPV 9.4 (7.4-10.4) fl Immature Gran % (Auto) 0.4 (0-0.5) % Neut % (Auto) 66.8 (45.5-73.1) % Lymph % (Auto) 23.0 (18.3-44.2) % [place] % (Auto) 5.7 (2.6-8.5) % Eos % (Auto) 3.6 (0-4.4) % Baso % (Auto) 0.5 (0.2-1.2) % Lymph # (Auto) 1.85 (0.9-3.2) K/mm3 [place] # (Auto) 0.5 (0.1-0.6) K/mm3 Eos # (Auto) 0.3 (0-0.3) K/mm3 Baso # (Auto) 0.0 (0.0-0.1) K/mm3 Abs Immat Gran (auto) 0.03 (0.00-0.031) K/mm3 Absolute Neuts (auto) 5.4 (1.3-6.7) K/mm3 Absolute Nucleated RBC 0.000 (0.0-0.012) K/mm3 Nucleated RBC % 0.0 (0.0-0.2) % Sodium 137 (137-145) mmol/L Potassium 3.7 (3.4-5.0) mmol/L Chloride 108 H (98-107) mmol/L Carbon Dioxide 25 (22-30) mmol/L Anion Gap 4 (4-12) mmol/L BUN 10 (7-17) mg/dL Creatinine 0.90 (0.7-1.0) mg/dL Estim Creat Clear Calc 59 ml/min Estimated GFR > 60 (59 - ) Glucose 114 H (65-110) mg/dL Calcium 9.2 (8.4-10.2) mg/dL Total Bilirubin 0.5 (0.2-1.3) mg/dL AST 29 (14-36) U/L ALT 29 (6-35) U/L Alkaline Phosphatase 86 (38-126) U/L Total Protein 7.0 (6.3-8.2) g/dL Albumin 4.1 (3.5-5.1) g/dL Lipase 85 (23-300) U/L Urine Color Yellow (Yellow) Urine Appearance Clear (Clear) Urine pH 5.0 (5.0-9.0) Ur Specific [place] > 1.045 H (1.001-1.035) Urine Protein Trace (Negative) mg/dL Urine Glucose (UA) Negative (Negative) mg/dL Urine Ketones Negative (Negative) mg/dL Ur Blood (Man) Negative (Negative) Urine Nitrate Negative (Negative) Urine Bilirubin Negative (Negative) Urine Urobilinogen 0.2 (<2.0) mg/dL Leukocyte Esterase Rfl Negative (Negative) DIMITRIOS/UL Urine RBC 0-2 (0-2) /hpf Urine WBC 0-5 (0-3) /hpf Ur Squamous Epith Cells Occasional (Few) /hpf Urine Bacteria None seen /hpf Urine Casts 0-[address] <[address] MD - Last Filed: 09/08/24 04:19> Discharge Plan Discharge Clinical Impression: Colitis, Abdominal pain <Eusebia Yen PA-C - Last Filed: 09/08/24 03:27> Patient Disposition: Home, Self-Care <Eusebia Yen PA-C - Last Filed: 09/08/24 03:27> Condition: Improved <TAMMIE Noguera Last Filed: 09/08/24 03:27> Instructions: Antibiotic Form, Abdominal Pain (ED), Colitis (ED) <Eusebia Yen PA-C - Last Filed: 09/08/24 03:27> Additional Instructions: Please follow-up with your family doctor within the next 3-5 days. Return to the emergency department if any new or worsening symptoms develop. <Eusebia Yen PA-C - Last Filed: 09/08/24 03:27> Patient Language: Latvian <Eusebia Yen PA-C - Last Filed: 09/08/24 03:27> Prescriptions: No Action aspirin [Baby Aspirin] 81 mg Tablet,Chewable 81 mg PO DAILY pantoprazole 20 mg tablet,delayed release (DR/EC) 20 mg PO DAILY Qty: 90 1RF Rx Instructions: TAKE 1 TABLET BY MOUTH ONCE DAILY IN THE MORNING fluticasone propionate [Flonase Allergy Relief] 50 mcg/actuation spray,suspension 2 spray intranasal DAILY Qty: 18 3RF Rx Instructions: administer into each nostril fluticasone propion-salmeterol [Advair HFA] 230-21 mcg/actuation HFA aerosol inhaler 2 puff inhalation BID Qty: 12 0RF Rx Instructions: administer with spacer oxycodone-acetaminophen [Percocet] 5-325 mg tablet 1 tablet PO Q8H PRN (Reason: pain) Qty: 10 0RF Xarelto 20 mg tablet 20 mg PO DAILY folic acid 1 mg tablet 1 mg PO DAILY albuterol sulfate [ProAir HFA] 90 mcg/actuation HFA aerosol inhaler 2 puff INHALATION Q6H PRN (Reason: Shortness Of Breath) Qty: 8.5 5RF ergocalciferol (vitamin D2) 1,250 mcg (50,000 unit) capsule 1,250 mcg PO DAILY Rx Instructions: TAKE 1 CAPSULE BY MOUTH ONCE EVERY MONTH 15 th of the month Adult 50 Plus Probiotic 4 billion cell capsule 4,000 mmu cells PO DAILY Rx Instructions: administer with a meal ferrous sulfate [Feosol] 325 mg (65 mg iron) tablet 325 mg PO DAILY cyclobenzaprine 10 mg tablet See Rx Instructions .ROUTE .COMPLEX Qty: 90 0RF Dose Instruction: Take 1 tablet by mouth three times daily as needed for muscle spasm Rx Instructions: Take 1 tablet by mouth three times daily as needed for muscle spasm ondansetron 4 mg tablet,disintegrating 4 mg PO Q8H PRN (Reason: nausea and vomiting) Qty: 90 0RF meloxicam 7.5 mg tablet 7.5 mg PO DAILY Qty: 5 0RF metronidazole 500 mg tablet 500 mg PO Q8H 10 Days Qty: 30 0RF albuterol sulfate 2.5 mg /3 mL (0.083 %) solution for nebulization 2.5 mg inhalation Q4-6H PRN (Reason: shortness of breath or wheezing) Qty: 90 1RF Rx Instructions: Please dispense 3 ml vials. nebivolol 5 mg tablet See Rx Instructions .ROUTE .COMPLEX Qty: 90 2RF Dose Instruction: TAKE 1 TABLET BY MOUTH ONCE DAILY AT BEDTIME Rx Instructions: TAKE 1 TABLET BY MOUTH ONCE DAILY AT BEDTIME levothyroxine [Synthroid] 88 mcg tablet 88 mcg PO DAILY Qty: 90 1RF nystatin 100,000 unit/gram cream 1 applic topical BID PRN (Reason: rash) Qty: 15 0RF atorvastatin 40 mg tablet 40 mg PO DAILY Qty: 90 1RF Rx Instructions: Take 1 tablet by mouth once daily alprazolam [Xanax] 0.5 mg tablet 0.5 mg PO BID PRN (Reason: anxiety) Qty: 60 0RF <Eusebia Yen PA-C - Last Filed: 09/08/24 03:27> Follow-up/Referrals: Eris Vu MD [Primary Care Provider] - 3 Days <Eusebia Yen PA-C - Last Filed: 09/08/24 03:27> Time of Disposition: 04:17 <Eusebia Yen PA-C - Last Filed: 09/08/24 03:27> 04:17 <Evi [address] MD - Last Filed: 09/08/24 04:19>
[2024-09-07] MEDS: DICYCLOMINE HCL INJ 20 MG/2 ML VIAL IM (23:51)
[2024-09-07] MEDS: ONDANSETRON INJ 4 MG/2 ML VIAL IV PUSH (23:51)
[2024-09-07 23:59] VITALS: BP 120/64; PULSE 81; RESP 14; O2SAT 96
[2024-09-08 00:47] VITALS: O2SAT 97
[2024-09-08 01:00] VITALS: O2SAT 96
[2024-09-08 01:16] VITALS: BP 107/60; PULSE 89; RESP 14; O2SAT 97
[2024-09-08] MEDS: ACETAMINOPHEN 500 MG TABLET 1000 MG PO (01:16)
[2024-09-08 01:38] LABS: Add Urine Microscopic? YES; Appearance Urine Clear (Clear); Bacteria Urine None Seen /hpf; Bilirubin Urine Negative (Negative); Blood Urine Negative (Negative); Color Urine Yellow (Yellow); Glucose Urine UA Negative (Negative); Ketones Urine Negative (Negative); Leukocyte Esterase Ur Negative LEU/UL (Negative); Nitrate Urine Negative (Negative); Non Pathogenic Casts 0-2; Protein Urine Trace mg/dL (Negative); RBC Urine 0-2 /hpf (0-2); Specific Grav Ur > 1.045 (1.001-1.035); Squamous Epithelial Cell Urine Occasional /hpf (Few); Urobilinogen Urine 0.2 mg/dL (<2.0); WBC Urine 0-5 /hpf (0-3)
[2024-09-08] MEDS: diphenhydrAMINE HCl INJ 50 MG/ML VIAL IV PUSH (02:29)
[2024-09-08 03:17] VITALS: BP 103/63; PULSE 82; RESP 14; O2SAT 97
== END 2024-09-08 04:44 | disposition home or self-care (01) ==
PROVIDERS: Emergency Provider Emergency Medicine; PCP Family Medicine
DX: K52.9 Noninfective gastroenteritis and colitis, unspecified (principal); E03.9 Hypothyroidism, unspecified; K21.9 Gastro-esophageal reflux disease without esophagitis; N18.9 Chronic kidney disease, unspecified; J44.9 Chronic obstructive pulmonary disease, unspecified; Z79.01 Long term (current) use of anticoagulants; Z79.82 Long term (current) use of aspirin; Z85.41 Personal history of malignant neoplasm of cervix uteri; E78.5 Hyperlipidemia, unspecified; Z86.718 Personal history of other venous thrombosis and embolism; E53.8 Deficiency of other specified B group vitamins; E55.9 Vitamin D deficiency, unspecified; Z96.651 Presence of right artificial knee joint; Z87.891 Personal history of nicotine dependence
CPT/HCPCS: 36415; 74177; 80053; 81001; 83690; 85025; 96372; 96374; 96375; 99284; A9270; J0500; J1200; J2405; Q9967

== ENCOUNTER 2024-09-18 12:29 | Outpatient (CLI) | payer MEDICARE, SELFPAY | END 2024-09-18 12:30 | disposition home or self-care (01) | PROVIDERS: PCP Internal Medicine | DX: L50.8 Other urticaria (principal) | CPT/HCPCS: 36415 ==

== ENCOUNTER 2024-10-12 13:15 | Outpatient (CLI) | payer MEDICARE, SELFPAY ==
--- OUTSIDE RECORDS SUMMARY | 2024-10-12 14:09 | XMS_ITS | CONTINUITY OF CARE DOCUMENT ---
Author Name keke davies Address Unknown Organization [facility] Address [address] [place] [address] Phone [phone] Care Team Providers Care Ski Lift Attendant Name Role Phone Vin Tay MD Unavailable INSURANCE PROVIDERS Payer name Policy type / Coverage type [employer] party ID [id number] PAY [id number]
--- OUTSIDE RECORDS SUMMARY | 2024-10-12 14:09 | XMS_ITS | Referral Summary ---
Author Organization [facility] Address [address] [place] [address] Care Team Providers Care Camera Prototyping Engineer Name Role Phone Boris Mcnair Primary Care Provider [phone] Source Comments [facility],non-owned Affiliates and Associated Physician Practices is amultiple site organization consisting of ambulatory clinics and hospital sitesin [place], [place], [place] and [place]. This disclosure is being madepursuant to the Care Everywhere program and may not contain all information available regarding this patient. Last updated 18.[facility] Allergies Active Allergy Reactions [...] MG tablet 10/09/2018 Active Cholecalciferol (VITAMIN D3) 39845 units capsule Active Active Problems Problem Noted [...] 7 - 26 mg/dL 02/07/2018 1:22 PM [facility] Creatinine 1.0 0.6 - 1.2 mg/dL 02/07/2018 1:22 PM [facility] Sodium 136 136 - 145 mmol/L 02/07/2018 1:22 PM [facility] Potassium 3.6 3.5 - 4.5 mmol/L 02/07/2018 1:22 PM [facility] Chloride 101 98 - 107 mmol/L 02/07/2018 1:22 PM [facility] CO2 25 22 - 29 mmol/L 02/07/2018 1:22 PM [facility] Glucose 93 70 - 115 mg/dL 02/07/2018 1:22 PM [facility] Calcium 9.9 8.4 - 10.2 mg/dL 02/07/2018 1:22 PM [facility] Protein Total 7.6 6.0 - 8.3 g/dL 02/07/2018 1:22 PM [facility] Albumin 3.5 3.4 - 5.0 g/dL 02/07/2018 1:22 PM [facility] Bilirubin Total 0.7 0.2 - 1.2 mg/dL 02/07/2018 1:22 PM [facility] Alkaline Phosphatase 109 40 - 150 Units/L 02/07/2018 1:22 PM [facility] ALT 22 0 - 55 Units/L 02/07/2018 1:22 PM [facility] AST 23 5 - 34 Units/L 02/07/2018 1:22 PM [facility] Anion Gap 14 8 - 18 02/07/2018 1:22 PM CDT [facility] BUN/Creatinine Ratio 8 7 - 23 02/07/2018 1:22 PM CDT [facility] Osmolality Calculated 280 270 - 300 mOsm/kg 02/07/2018 1:22 PM T [facility] Albumin/Globulin Ratio 0.9(L) 1.1 - 2.3 02/07/2018 1:22 PM T [facility] eGFR 57(L) >60 mL/min/1.7 3 m2 02/07/2018 1:22 PM T [facility] Blood BLOOD SPECIMEN / Unknown Lab Venipuncture / Unknown 02/07/2018 12:50 PM CDT 02/07/2018 12:55 PM CDT Ester Barajas DO LAB - CHEMISTRY ORD ERABLES Performing Organization Address City/State/[facility] Co de Phone Number [facility] [address] [phone] from Last 3 Months or Most Recently Relevant to Health Maintenance Insurance Payer Benefit Plan / Group Subscriber ID Effective Dates Phone Address Type [facility] MANAGED MEDICARE ADV [facility] MEDICARE ADV [id number] Effective for all dates [phone] [address] [place] [address] Medicare-Ma naged Care [facility]ICA[facility] Effective for all dates [address] [place] [id number] Medicaid [facility] MANAGED MEDICARE ADV [facility] MEDICARE ADV [id number] Effective for all dates [phone] [address] [place] [address] Medicare-Ma naged Care MEDICAID [facility]DOWN [facility] MEDICAID SP[facility]DOWN [facility] Effective for all dates [address] [place] [address] Medicaid C MANAGED MEDICARE ADV [facility] MEDICARE ADV [id number] Effective for all dates [address] [address] [place] [address] Medicare-Ma naged Care MEDICAID [facility]DOWN [facility] MEDICAID SP[employer]DOWN [facility] Effective for all dates [address] [place] [address] Medicaid [facility] MANAGED MEDICARE ADV [facility] MEDICARE ADV [id number] Effective for all dates [address] [address] [place] [address] Medicare-[facility] MEDICARE S MEDICARE PART B [id number] 04/16/2013-Pres ent [address] [address] [place] [address] Medicare MEDICAID - OUT OF [facility] [place]ID [place] PUBLIC AID [id number] 03/24/2022-Pres ent [address] [address] [place] [address] Medicaid MEDICARE MEDICARE PART A AND B [id number] 04/16/2013-Pres ent [address] [place] [address] Medicare Advance Directives * Full Code (Latest Code Status on File) Date Activated Date Inactivated Comments 02/15/2018 8:10 AM 02/15/2018 12:04 PM * Full Code Date Activated Date Inactivated Comments 02/14/2018 7:57 AM 02/14/2018 6:16 PM Care Teams Camera Prototyping Engineer Relationship Specialty Start Date End Date Boris Mcnair DO [address] [place] [id number] PCP - General 04/07/19
--- OUTSIDE RECORDS SUMMARY | 2024-10-12 14:09 | XMS_ITS ---
Author Organization [facility] Address [address] [place] [address] Care Team Providers Care Laser Cutter Name Role Phone Horace Eris Primary Care Provider Breann Zuniga Unavailable [phone] Allergies Allergen (clinical drug ingredient) Drug/Non Drug Allergy documented on EMR Reaction Allergy Type Onset Date Status codeine Codeine anaphylaxis Drug Allergy Activ e hydromorphone HYDROmorphone rash Drug Allergy Active Latex Latex rash Allergy Active levofloxacin levoFLOXacin rash Drug Allergy A ctive REASON FOR VISIT Ocular swelling, erythema and watering with various ocular drops following cataract surgery. C4 normal., Chronic upper airway symptoms concerning for uncontrolled atopic disease, has trialed Zyrtec in the past without benefit. ImmunoCaps negative, total IgE 28., Swelling and syncope reported after a bee sting > 20 years ago. Now carrying AIE at all times., Hives and syncope reported with penicillin at [...] Duration) Notes Start Date End Date Status Nebivolol HCl 5 MG 1 tablet Orally Once a day Active Fluticasone Propionate 50 MCG/ACT 1 spray in each nostril Nasally Twice a day Active Ferrous Sulfate 325 (65 Fe) MG 1 tablet Orally Three times a Week Active Levothyroxine Sodium 88 MCG 1 tablet in the morning on an empty stomach Orally Once a day Active Folic Acid 1 MG 1 tablet Orally Once a day Active Nystatin 778975 UNIT/GM 1 application Externally Twice a day Active Ondansetron 4 MG 1 tablet on the tong ue and allow to dissolve Orally Once a day Active Advair HFA 230-21 MCG/ACT 2 puffs Inhala tion Twice a day Active Albuterol Sulfate HFA 108 (90 Base) MCG/ACT 2 puffs as needed Inhalation every 4 hrs for 30 days Active AeroChamber MV - as directed for 30 days Any adult spacer Active EPINEPHrine 0.3 MG/0.3ML as directed Inj ection as directed for 30 days Not-Taki ng Pantoprazole Sodium 20 MG 1 tablet 1/2 t o 1 hour before morning meal Orally Once a day Active Lactobacillus - as directed Orally Not-Taking EPINEPHrine 0.3 MG/0.3ML as directed Inj ection as needed for 30 days Active Rivaroxaban 20 MG 1 tablet with food Orally Once a day Active Social History Tobacco Use: Social History Observation Description Date Details (start date - stop date) Current Smoker NA - NA Tobacco Control (Standard) Question Answer Notes Tobacco use: Current smoker Vital Signs Blood pressure systolic 133 mm Hg 10/06/19 25 Blood pressure diastolic 80 mm Hg 025 Oximetry 98 % 10/06/2024 Height 64 in 10/06/2024 Weight 181.6 lbs 10/06/2024 BMI 31.17 kg/m2 10/06/2024 Encounters Encounter Location Date Provider Diagnosis [facility] [address] [place] [address] 10/06/2024 Breann Chavira Localized swelling, mass and lump, head R22.0 ; Allergy status to unspecified drugs, medicaments and biological substances Z88.9 ; Other urticaria L50.8 ; Hypertrophy of nasal turbinates J34.3 ; Chronic rhinitis J31.0 ; Shortness of breath R06.02 ; Toxic effect of venom of bees, accidental (unintentional), subsequent encounter T63.441D ; Rash and other nonspecific skin eruption R21 ; Allergy status to penicillin Z88.0 ; Other heart disorders in diseases classified elsewhere I52 and Elevated blood-pressure reading, without diagnosis of hypertension R03.0 Assessments Encounter Date Diagnosis (ICD Code) Assessment Notes Treatment Notes Treatment Clinical Notes Section Notes 10/06/2024 Localized swelling, mass and lump, head (ICD-10 - R22.0) Gege presented to her initial visit with concerns for various medication allergies. Most [...] ocular drops and Refresh Optive lubricant. - Last visit discussed that, unfortunately, we do not have standardized [...] surgery vs idiopathic cause vs other. - Obtained C4, which returned within normal range. Tryptase level return at 8. Due to history of symptoms, will repeat tryptase. Gege is also interested in urine studies due to additional history of hives and swelling, orders printed as she would like to go to [facility]. - Will request records from [facility], as well as from her table attendant. Still awaiting. - Follow-up in 4 weeks for laboratory review 10/06/2024 Allergy status to unspecified drugs, medicaments and biological substances (ICD-10 - Z88.9) See plan above 10/06/2024 Other urticaria (ICD-10 - L50.8) Also with reports of urticaria with other medications, last visit obtained tryptase that returned at an 8. As above, will repeat tryptase. Gege is also interested in urine studies due to additional history of hives and swelling, orders printed as she would like to go to [facility] 10/06/2024 Hypertrophy of nasal turbinates (ICD-10 - J34.3) Gege presents with upper airway symptoms concerning for uncontrolled atopic disease. She has two dogs in her home. She has trialed Zyrtec in the past without benefit. - Obtained ImmunoCaps that returned negative, total IgE 28. Gege is considering additional testing, plan to discuss further after most recent lab values return 10/06/2024 Chronic rhinitis (ICD-10 - J31.0) See plan above 10/06/2024 Shortness of breath (ICD-10 - R06.02) Gege [...] up-to-date on CT scans. - Spirometry obtained last visit that showed moderately severe obstruction suggested by reduced FEV%, normal FVC and borderline FEV1. Deferred BD challenge due to time constraints last visit. - Due to Gege's history of COPD, discussed evaluation by pulmonology. Gege voiced agreement last visit, however has not pursued further. Wrote down information of Dr. Joshua's office as Gege prefers to go to [facility]. Will obtain full PFT with [employer] device in the meantime, TE created. - Continue Advair as prescribed by her PCP. She is aware to rinse her mouth after use. - Gege is to use her rescue inhaler as-needed. Needs AAP next visit. - Follow-up in 4 weeks for further evaluation 10/06/2024 Toxic effect of venom of bees, accidental (unintentional), subsequent encounter (ICD-10 - T63.441D) Gege reports being stung by a bee when she was in her twenties. Reports being stung, recalls significant swelling, then she passed out. States she awoke surrounded by medical personnel, other details are not clear. - Plan to return for venom testing. - Gege is to carry an AIE at all times. Indications and proper use discussed at length last visit. - Follow-up as above 10/06/2024 Rash and other nonspecific skin eruption (ICD-10 - R21) Gege reports erythematous and dry rashes that occurs with various topical products and fragrances. - Consider patch testing, discuss further next visit 10/06/2024 Allergy status to penicillin (ICD-10 - Z88.0) Gege reports passing out while taking penicillin in the past, further details are not clear. - Consider returning for penicillin testing, Gege is considering at this time 10/06/2024 Other heart disorders in diseases classified elsewhere (ICD-10 - I52) Gege reports history of PVCs, currently prescribed a beta-jerry. If Gege pursues immunotherapy, discuss this further 10/06/2024 Elevated blood-pressure reading, without diagnosis of hypertension (ICD-10 - R03.0) BP elevated today without symptoms of urgency or emergency. Continue serial checks and follow-up with PCP 10/06/2024 Other Plan Of Treatment Medication Medication Name Sig Start Date Stop Date Notes Advair HFA 230-21 MCG/ACT 2 puffs Inhala tion Twice a day Albuterol Sulfate HFA 108 (9 0 Base) MCG/ACT 2 puffs as needed Inhalation every 4 hrs for 30 days AeroChamber MV - as directed for 30 days EPINEPHrine 0.3 MG/0.3ML as directed Inj ection as needed for 30 days Treatment Notes Assessment Notes Localized swelling, mass and lump, head Gege presented to her initial visit with concerns for various medication allergies. Most [...] ocular drops and Refresh Optive lubricant. - Last visit discussed that, unfortunately, we do not have standardized [...] surgery vs idiopathic cause vs other. - Obtained C4, which returned within normal range. Tryptase level return at 8. Due to history of symptoms, will repeat tryptase. Gege is also interested in urine studies due to additional history of hives and swelling, orders printed as she would like to go to [facility]. - Will request records from [facility], as well as from her table attendant. Still awaiting. - Follow-up in 4 weeks for laboratory review Allergy status to unspecifie d drugs, medicaments and biological substances See plan above Other urticaria Also with reports of urticaria with other medications, last visit obtained tryptase that returned at an 8. As above, will repeat tryptase. Gege is also interested in urine studies due to additional history of hives and swelling, orders printed as she would like to go to [facility] Hypertrophy of nasal turbinates Gege presents with upper airway symptoms concerning for uncontrolled atopic disease. She has two dogs in her home. She has trialed Zyrtec in the past without benefit. - Obtained ImmunoCaps that returned negative, total IgE 28. Gege is considering additional testing, plan to discuss further after most recent lab values return Chronic rhinitis See plan above Shortness of [...] up-to-date on CT scans. - Spirometry obtained last visit that showed moderately severe obstruction suggested by reduced FEV%, normal FVC and borderline FEV1. Deferred BD challenge due to time constraints last visit. - Due to Gege's history of COPD, discussed evaluation by pulmonology. Gege voiced agreement last visit, however has not pursued further. Wrote down information of Dr. Joshua's office as Gege prefers to go to [facility]. Will obtain full PFT with [employer] device in the meantime, TE created. - Continue Advair as prescribed by her PCP. She is aware to rinse her mouth after use. - Gege is to use her rescue inhaler as-needed. Needs AAP next visit. - Follow-up in 4 weeks for further evaluation Toxic effect of venom of bee s, accidental (unintentional), subsequent encounter Gege reports being stung by a bee when she was in her twenties. Reports being stung, recalls significant swelling, then she passed out. States she awoke surrounded by medical personnel, other details are not clear. - Plan to return for venom testing. - Gege is to carry an AIE at all times. Indications and proper use discussed at length last visit. - Follow-up as above Rash and other [...] If Gege pursues immunotherapy, discuss this further Elevated blood-pressure read ing, without diagnosis of hypertension BP elevated today without symptoms of urgency or emergency. Continue serial checks and follow-up with PCP Pending Test Test Name Order Date METANEPHRINES, FRACT. LC/MS/MS, 24 HR UR INE 10/06/2024 METANEPHRINES, FRACT, FREE, LC/MS/MS, PL ASMA 10/06/2024 TRYPTASE 10/06/2024 VMA, 24-HOUR URINE 10/06/2024 HOMOVANILLIC ACID, 24-HR URINE 5 5-HIAA, 24-HOUR URINE 10/06/2024 HISTAMINE, 24 HOUR URINE 10/06/2024 LEUKOTRIENE E4, URINE 10/06/2024 N METHYLHISTAMINE, 24 HOUR, URINE 2024 Next Appt Details Follow Up: 4 Weeks, Reason: Laboratory Review Procedure Notes * Category Sub-Category Detail Notes Time (Provider Encounter) Time Attestation This follow-up encounter took more than:: more than 30 minutes ([id number]) Tasks performed during this encounter include:: taking a history, reviewing the patient's review of systems, reviewing laboratory results, counseling the patient on their diagnoses and chronic management, discussed risks, benefits and alternatives to care, documenting in the EHR Progress Notes * Gege VIDALDOB:1960 (64 yo F)Acc No.[id number]:10/06/2024 Progress Notes Patient:?Gege VIDAL Provider:?VALERIE BlackPCaden :1960???Age:64 Y???Sex:Female D ate:10/06/2024 Address: [address], [place], [id number] Pcp:Eris Vu Subjective: * Chief Complaints: * ???Ocular swelling, erythema and watering with various ocular drops following cataract surgery. C4 normal.Chronic upper airway symptoms concerning for uncontrolled atopic disease, has trialed Zyrtec in the past without benefit. ImmunoCaps negative, total IgE 28.Swelling and syncope reported after a bee sting > 20 years ago. Now carrying AIE at all times.Hives and syncope reported with penicillin at age [...] knee replacement, diverticulitis,COPD, hyperlipidemia and GERD, who returns for laboratory review. She is alonefor today's visit. Gege presented to her initial visit due to concerns for multiple medicationallergies. Gege reports that she recently underwent cataract surgeryin her left eye. Following this procedure she was prescribed Maxitrol oculardrops. After a couple of days she began experiencing swelling, watering anderythema surround her left eye. She was seen by her table attendant, whorecommended stopping Maxitrol and started her on a prednisolone eye drop, shewas also using Refresh ocular lubricant. She was, once again, seen by her table attendant who started a different prednisoloneeye drop. Symptoms persisted and she reports the swelling worsened, due to thisshe was seen at [facility] where she was given steroids andantihistamines, also sent home on prednisone and Benadryl. She reports shecontinued to use the second prednisolone drop she was prescribed. Several dayslater she was seen once again by her table attendant, who stopped theprednisolone ocular drop and recommended Refresh preservative-free drops. Afterfinishing her 7-day course of oral prednisone prescribed at the ER her symptomsresolved. She feels her left eye is still mildly swollen. Last visit we ordered C4, that returned within normal range. Gege reports a history of various medication allergies. Atage 18 she was prescribed penicillin and codeine due to a presumed infection,for which she passed out and developed swelling, other details are not clear.She has been avoidant of both since. Gege reports generalized erythema and itchingwith vancomycin. She is avoidant of morphine because it dropped my blood pressure, again additional details are not clear. Tryptase level was ordered at returned 8. Gege endorses upper airway symptoms concerning foruncontrolled atopic disease. She has taken Zyrtec previously without benefit. [facility]. She has never undergone allergy testing or received allergenimmunotherapy. ImmunoCaps obtained that returned negative, total IgE 28. Gege endorses occasional shortness of breath. Reportshistory of COPD, currently smokes approximately 5 cigarettes daily. She hasbeen smoking for over 40 years. She was recently prescribed Advair by her PCP, which she has started without benefit. Also carrying a rescue inhaler. Nohistory of hospitalizations due to lower airway symptoms. She has annual CT scansof her lungs completed by oncology due to her history of cervical and skincancer. No prior pulmonary evaluation despite our recommendation last visit. She also reports history of swelling and syncope following abee sting, this was over twenty years ago. She does not recall details, is onlyaware of being stung and waking up surrounded by medical personnel. She has notbeen stung since. She is now carrying an AIE at all times. Additionally, Gege reports long history of sensitive skin.She is cautious with various fragrances that she uses. In the past has experiencederythematous, scaly rashes. Gege is avoidant of all shellfish as she passedout after eating lobster. She eats finned fish without issue. Gege is seen bycardiology due to a history of PVCs, currently on nebivolol. She lives with tanya and [id number]. Today, she reports no fevers, chills, night sweats or other constitutional symptoms.? * ROS:?ALLERGY:?Positive?per the HPI and history, otherwise [...] pets??Yes ?What kind(s)? (click all that apply)?dog ?How many dogs??2 ?Where do your pets sleep??anywhere in the house ?Fabric softeners used??No ?Plants in the home??No ?Is there carpeting in your bedroom??Yes ?Do you have [id number] carpeting??Yes ?What is the age of your mattress (years)??4 ?What material(s) are used to manufacture your bedding and pillow??feather,natural fiber (e.g. cotton) ?What is the age of your pillow (years)??3 ?What material are your bedding items made of??natural fiber (e.g. cotton) ?Do you sleep with quilts or blankets or a duvet??Yes ?What material??natural fiber (e.g. cotton) ???Tobacco Control (Standard)?Tobacco use:?Current smoker * Medications:?TakingRivaroxab an 20 MG Tablet 1 tablet with food Orally Once a day Pantoprazole Sodium 20 MG Tablet Delayed Release 1 tablet 1/2 to 1 hour before morning meal Orally Once a day Ondansetron 4 MG Tablet Disintegrating 1 tablet on the tongue and allow to dissolve Orally Once a day Nystatin 646397 UNIT/GM Cream 1 application Externally Twice a day Nebivolol HCl 5 MG Tablet 1 tablet Orally Once a day Levothyroxine Sodium 88 MCG Tablet 1 tablet in the morning on an empty stomach Orally Once a day Folic Acid 1 MG Tablet 1 tablet Orally Once a day Fluticasone Propionate 50 MCG/ACT Suspension 1 spray in each nostril Nasally Twice a day Ferrous Sulfate 325 (65 Fe) MG Tablet 1 tablet Orally Three times a Week EPINEPHrine 0.3 MG/0.3ML Solution Auto-injector as directed Injection as needed Advair HFA 230- 21 MCG/ACT Aerosol 2 puffs Inhalation Twice a day Albuterol Sulfate HFA 108 (90 Base) MCG/ACT Aerosol Solution 2 puffs as needed Inhalation every 4 hrs AeroChamber MV - Miscellaneous as directed Any adult spacerTaking Rivaroxaban 20 MG Tablet 1 tablet with food Orally Once a day Taking Pantoprazole Sodium 20 MG Tablet Delayed Release 1 tablet 1/2 to 1 hour before morning meal Orally Once a day Taking Ondansetron 4 MG Tablet Disintegrating 1 tablet on the tongue and allow to dissolve Orally Once a day Taking Nystatin 830013 UNIT/GM Cream 1 application Externally Twice a day Taking Nebivolol HCl 5 MG Tablet 1 tablet Orally Once a day Taking Levothyroxine Sodium 88 MCG Tablet 1 tablet in the morning on an empty stomach Orally Once a day Taking Folic Acid 1 MG Tablet 1 tablet Orally Once a day Taking Fluticasone Propionate 50 MCG/ACT Suspension 1 spray in each nostril Nasally Twice a day Taking Ferrous Sulfate 325 (65 Fe) MG Tablet 1 tablet Orally Three times a Week Taking EPINEPHrine 0.3 MG/0.3ML Solution Auto-injector as directed Injection as needed Taking Advair HFA 230-21 MCG/ACT Aerosol 2 puffs Inhalation Twice a day Taking Albuterol Sulfate HFA 108 (90 Base) MCG/ACT Aerosol Solution 2 puffs as needed Inhalation every 4 hrs Taking AeroChamber MV - Miscellaneous as directed Any adult spacerNot-Taking/PRNLactobacillus - Capsule as directed Orally EPINEPHrine 0.3 MG/0.3ML Solution Auto-injector as directed Injection as directed Medication List reviewed and reconciled with the patientNot-Taking/PRN Lactobacillus - Capsule as directed Orally Not-Taking/PRN EPINEPHrine 0.3 MG/0.3ML Solution Auto-injector as directed Injection as directed Medication List reviewed and reconciled with the patient * Allergies:?Codeine: anaphyla xisHYDROmorphone: rashLatex: rashlevoFLOXacin: rashno[Allergies Verified] Objective: * Vitals:?BP:133/80mm Hg, HR:1 00/min, Pulse Oximetry:98%, ACT:10, Ht: 64 in, Wt: 181.6 lbs, BMI:31.17Index. * Examination: ???General examination: ?General appearance:?pleasant, well-developed, well-nourished, female,?in no apparent distress, speaking in full sentences.?HEENT:?conjunctiva are normal bilaterally.?Oral cavity:?normal, no lesions.?Breasts :?not performed.?Neurologic exam:?unremarkable.?Skin:?normal, no visible rash, dermatographism, urticaria, angioedema.?Back:?normal.?Extremities:?normal ROM, no clubbing, no cyanosis, no edema.?Genitalia:?not performed.? Assessment: * Assessment: 1.?Localized swelling, mass and lump, head - R22.0 (Primary)???2.?Allergy status to unspecified drugs, medicaments and biological substances - Z88.9???3.?Other urticaria - L50.8???4.?Hypertrophy of nasal turbinates - J34.3?? 5.?Chronic rhinitis - J31.0???6.?Shortness of breath - R06.02???7.?Toxic effect of venom of bees, accidental (unintentional), subsequent encounter - T63.441D???8.?Rash and other nonspecific skin eruption - R21???9. Allergy status to penicillin - Z88.0???10.?Other heart disorders in diseases classified elsewhere - I52???11.?Elevated blood-pressure reading, without diagnosis of hypertension - R03.0??? Plan: * Treatment: 2.?Allergy status to unspeci fied drugs, medicaments and biological substances? Notes: See plan above ?? 3.?Other urticaria?LAB: METANEPHRINES, FRACT. LC/MS/MS, 24 HR URINE ?LAB: METANEPHRINES, FRACT, FREE, LC/MS/MS, PLASMA ?LAB: TRYPTASE ?LAB: VMA, 24-HOUR URINE ?LAB: HOMOVANILLIC ACID, 24-HR URINE ?LAB: 5-HIAA, 24-HOUR URINE ?LAB: HISTAMINE, 24 HOUR URINE ?LAB: LEUKOTRIENE E4, URINE ?LAB: N METHYLHISTAMINE, 24 HOUR, URINE Notes: Also with reports of urticaria with other medications, last visit obtained tryptase that returned at an 8. As above, will repeat tryptase. Gege is also interested in urine studies due to additional history of hives and swelling, orders printed as she would like to go to [facility]?? 4.?Hypertrophy of nasal turb inates? Notes: Gege presents with upper airway symptoms concerning for uncontrolled atopic disease. She has two dogs in her home. She has trialed Zyrtec in the past without benefit. - Obtained ImmunoCaps that returned negative, total IgE 28. Gege is considering additional testing, plan to discuss further after most recent lab values return?? 5.?Chronic rhinitis? Notes: See plan above ?? 6.?Shortness of breath? Continue Advair HFA Aerosol, 230-21 MCG/ACT, 2 puffs, Inhalation, Twice a day;?Continue Albuterol Sulfate HFA Aerosol Solution, 108 (90 Base) MCG/ACT, 2 puffs as needed, Inhalation, every 4 hrs, 30 days, 1, Refills 0;?Start AeroChamber MV Miscellaneous, -, as directed Any adult spacer, 30 days, 1, Refills 11.?? Notes: Gege reports history of COPD. She [...] up-to-date on CT scans. - Spirometry obtained last visit that showed moderately severe obstruction suggested by reduced FEV%, normal FVC and borderline FEV1. Deferred BD challenge due to time constraints last visit. - Due to Gege's history of COPD, discussed evaluation by pulmonology. Gege voiced agreement last visit, however has not pursued further. Wrote down information of Dr. Joshua's office as Gege prefers to go to [facility]. Will obtain full PFT with [employer] device in the meantime, TE created. - Continue Advair as prescribed by her PCP. She is aware to rinse her mouth after use. - Gege is to use her rescue inhaler as-needed. Needs AAP next visit. - Follow-up in 4 weeks for further evaluation?? 7.?Toxic effect of venom of bees, accidental (unintentional), subsequent encounter? Continue EPINEPHrine Solution Auto-injector, 0.3 MG/0.3ML, as directed Injection as needed, 30 days, 1, Refills 0.?? Notes: Gege reports being stung by a bee when she was in her twenties. Reports being stung, recalls significant swelling, then she passed out. States she awoke surrounded by medical personnel, other details are not clear. - Plan to return for venom testing. - Gege is to carry an AIE at all times. Indications and proper use discussed at length last visit. - Follow-up as above?? 8.?Rash and other nonspecifi c skin eruption? Notes: Gege reports erythematous and dry rashes that occurs with various topical products and fragrances. - Consider patch testing, discuss further next visit?? 9.?Allergy status to penicil amie? Notes: Gege reports passing out while taking penicillin in the past, further details are not clear. - Consider returning for penicillin testing, Gege is considering at this time?? 10.?Other heart disorders in diseases classified elsewhere? Notes: Gege reports history of PVCs, currently prescribed a beta-jerry. If Gege pursues immunotherapy, discuss this further?? 11.?Elevated blood-pressure reading, without diagnosis of hypertension? Notes: BP elevated today without symptoms of urgency or emergency. Continue serial checks and follow-up with PCP ?? * Procedures:?Time (Provider Encounter):?Time Attestation ?This follow-up encounter took more than:?more than 30 minutes (92913) ?Tasks performed during this encounter include:?taking a history, reviewing the patient's review of systems, reviewing laboratory results, counseling the patient on their diagnoses and chronic management, discussed risks, benefits and alternatives to care, documenting in the EHR? * Procedure Codes:?47418 PT-FO CUSED HLTH RISK [id number] DOC MEDS VERIFIED W/PT OR RE * Preventive Medicine:? ??Counseling:?Diet?as tolerated.?Exercise?Continue activity as [...] and counseling * Follow Up:?4 Weeks (Reason: Laboratory Review) * Billing Information: * Visit Code:? 95939 Office Visit, Est Pt., Level 4. Modifiers: 25 * Procedure Codes:? 04972 PT-FOCUSED HLTH RISK ASSMT. G8427 DOC MEDS VERIFIED W/PT OR RE. * RAME DESIGN ENGINEER Sign off status: Completed true * Provider:?VALERIE Black-C Suraj e:?10/06/2024 Generated for Neal gonzalez/Randall/eTtamismitting on:?10/12/2024 02:09 PM AIRFRAME DESIGN ENGINEER History and Physical Notes * HPI (History of Present Illness) Category Sub-Category Detail Notes Category Not es *Introduction I had the pleasure o f seeing Gege Vidal, a 64-year-old female with past medical history significant for arthritis s/p knee replacement, diverticulitis, COPD, hyperlipidemia and GERD, who returns for laboratory review. She is alone for today's visit. Gege presented to her initial visit due to concerns for multiple medication allergies. Gege reports that she recently underwent cataract surgery in her left eye. Following this procedure she was prescribed Maxitrol ocular drops. After a couple of days she began experiencing swelling, watering and erythema surround her left eye. She was seen by her table attendant, who recommended stopping Maxitrol and started her on a prednisolone eye drop, she was also using Refresh ocular lubricant. She was, once again, seen by her table attendant who started a different prednisolone eye drop. Symptoms persisted and she reports the swelling worsened, due to this she was seen at [facility] where she was given steroids and antihistamines, also sent home on prednisone and Benadryl. She reports she continued to use the second prednisolone drop she was prescribed. Several days later she was seen once again by her table attendant, who stopped the prednisolone ocular drop and recommended Refresh preservative-free drops. After finishing her 7-day course of oral prednisone prescribed at the ER her symptoms resolved. She feels her left eye is still mildly swollen. Last visit we ordered C4, that returned within normal range. Gege reports a history of various medication [...] pressure, again additional details are not clear. Tryptase level was ordered at returned 8. Gege endorses upper airway symptoms concerning for uncontrolled atopic disease. She has taken Zyrtec previously without benefit. There are two dogs in her home. She has never undergone allergy testing or received allergen immunotherapy. ImmunoCaps obtained that returned negative, total IgE 28. Gege endorses occasional shortness of breath. Reports history of COPD, currently smokes approximately 5 cigarettes daily. She has been smoking for over 40 years. She was recently prescribed Advair by her PCP, which she has started without benefit. Also carrying a rescue inhaler. No history of hospitalizations due to lower airway symptoms. She has annual CT scans of her lungs completed by oncology due to her history of cervical and skin cancer. No prior pulmonary evaluation despite our recommendation last visit. She also reports history of swelling and syncope following a bee sting, this was over twenty years ago. She does not recall details, is only aware of being stung and waking up surrounded by medical personnel. She has not been stung since. She is now carrying an AIE at all times. Additionally, Gege reports long history of sensitive skin. She is cautious with various fragrances that she uses. In the past has experienced erythematous, scaly rashes. Ggee is avoidant of all shellfish as she passed out after eating lobster. She eats finned fish without issue. Gege is seen by cardiology due to a history of PVCs, currently on nebivolol. She lives with her son and cffoxndg-um-srd. Today, she reports no fevers, chills, night sweats or other constitutional symptoms Examination Category Sub-Category Detail Notes Category Not es General examination HEENT: conjunctiva are oli l bilaterally Extremities: normal ROM, no clubb ing, no cyanosis, no edema General appearance: pleasant, well-devel oped, well-nourished, female, in no apparent distress, speaking in full sentences Skin: normal, no visible r sejal, dermatographism, urticaria, angioedema Neurologic exam: unremarkable Oral cavity: normal, no lesions Breasts : not performed Back: normal Genitalia: not performed
--- OUTSIDE RECORDS SUMMARY | 2024-10-12 14:09 | XMS_ITS | Clinical Summary ---
Author Organization [facility] Address [address] [place] [address] Care Team Providers Care Hvac Refrigeration Technician Name Role Phone Eris Vu MD Primary Care Provider [phone] Allergies Active Allergy Reactions Criticality Noted Date Comments Adhesive Tape-Silicones Other (See Comments) Medium 08/19/2014 Blisters Codeine Shortness of Breath/Wheezing High 08/19/2014 Svctdrdky-H-Apyiaqy-Se jun-Brom Other (See Comments) Low 08/19/2014 Alcohol- makes her break out in blisters Latex Rash,Swelling,Hives High 08/19/2014 Morphine Hypotension Medium 11/15/2017 Penicillins Shortness of Breath/Wheezing High 08/19/2014 Vancomycin Other (See Comments) High 08/19/2014 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 Active promethazine (PHENERGAN) 25 mg tablet Take 25 mg by mouth every 6 hours as needed . 03/06/2018 Active ondansetron (ZOFRAN) 4 mg Tablet Take 4 mg by mouth every 8 hours as needed for Nausea/Emes is. Active Cetirizine (ZyrTEC) 10 mg Capsule Take 10 mg by mouth 1 time daily as needed . Active aspirin (ECOTRIN EC) 81 mg Tablet, Delayed Release (E.C.) Take 1 Tablet (81 mg) by mouth daily. 90 Tablet 3 06/09/2018 Active cholecalciferol 50,000 unit CapsuleIndicatio ns:pt taking once a month Take by mouth. 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 01/06/2020 Diverticulitis 03/24/2018 Secondary hypercoagulable state 11/15/2017 Tobacco use 11/15/2017 Encounters Date Type Department Care Team Description 10/09/2024 Abstract [facility] Oncology and Hematology - [place] [address] [place] [address] Chris Owens MD 10/09/2024 Telephone [facility] Oncology and Hematology - [place] [address] [place] [address] Chris Owens MD Surgical Clearance 10/08/2024 External Device Data [facility] ABSTRACTION Provider, Abstract 09/29/2024 External Device Data [facility] ABSTRACTION Provider, Abstract 08/25/2024 Orders Only [facility] Oncology and Hematology - [place] [address] [place] [address] Chris Owens MD 08/20/2024 Refill [facility] Oncology and Hematology - [place] [address] [place] [address] Chris Owens MD 07/20/2024 External Device Data [...] at Not on file Legal Sex Female 12:44 PM REINFORCED 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 Gender Identity Not on file Sexual [...] [facility] - [place] [address] [facility] [address] [place] [address] Chris Owens MD [address] [facility] [address] [place] [address] Health Maintenance Due Date Last Done Comments Pre-Diabetes and Diabetes Screening 1961 DTAP/TDAP/TD VACCINES (1 - Tdap) 1980 FIT-DNA Q 3 years 2006 FIT/FOBT Q 1 year 2006 Flex Sig/CT Colonography Q 5 years 2006 ZOSTER VACCINE (1 of 2) 2011 INFLUENZA VACCINE (#1) 2024 [place] ([place]) Preventative Visit/Annual Wellness Visit 09/16/2024 CERVICAL CANCER SCREENING 12/14/2024 12/14/2021, BREAST CANCER SCREENING 02/16/2025 02/17/20 24, 09/03/2023, 08/07/2023, Additional history exists COLORECTAL SCREENING 10/28/2030 10/28/2020, 05/31/20 20 Colorectal Cancer Screening 10/28/2030 RSV VACCINE (60+ or ) (1 - 1-dose 75+ series) 2036 Lung Cancer Screening Discontinued 07/15/2019 Procedures Procedure Name Priority Date/Time Associated Diagnosis Comments CT CHEST WO CONTRAST Routine 08/25/2024 12:41 PM REINFORCED STEEL 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 MAMMO BILAT DIAGNOSTIC Routine 02/17/2024 1:[address] LUNG SCREENING (LDCT BASELINE OR ANNUAL) Routine 07/15/2019 Encounter for screening for lung cancer from Last 3 Months or Most Recently Relevant to Health Maintenance Results * CT CHEST WO CONTRAST (08/25/2024 12:41 PM REINFORCED STEEL 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) Anatomical Region Laterality Modality Chest Other us Chris Owens MD CT ORDERABLES Final Result * MAMMO BILAT DIAGNOSTIC (02/17/2024 1:15 PM CDT) Anatomical Region Laterality Modality Breast Bilateral Other us Chris Owens MD MAMMO ORDERABLES Final Result * CT LUNG SCREENING (07/15/2019) Anatomical Region Laterality Modality Chest Other us Chris Owens MD CT ORDERABLES Final Result from Last 3 Months or Most Recently Relevant to Health Maintenance Insurance [facility] [id number] Care Teams Hvac Refrigeration Technician Relationship Specialty Start Date End Date Eris Vu MD PCP - General Family Practice 02/21/23
--- OUTSIDE RECORDS SUMMARY | 2024-10-12 14:09 | XMS_ITS | Referral Summary ---
Author Organization [facility] Address [address] [place] [address] Care Team Providers Care Buffing Wheel Former Automatic Name Role Phone Dominic Fernando MD Primary Care Provider [phone] Allergies Active Allergy Reactions Criticality Noted Date [...] mcg tablet Take 112 mcg by mouth carbon brush maker before breakfast. 07/21/2018 Active XARELTO 20 mg [...] (09/24/2018): Added automatically from request for surgery [id number] Social History Tobacco Use Types Packs/Day Years Used Date Smoking Tobacco: Every Day Cigarettes Smokeless Tobacco: Current Comments:quitting now, 1 pac k last 2-3 days Alcohol Use Standard Drinks/Week Comments No 0 (1 standard drink = 0.6 oz pur e alcohol) Comments No Sex and Gender Information Value Date Recorded Sex Assigned at Not on file Legal Sex Female 11:26 PM LINE INSTALLER TROLLEY Gender Identity Not on file Sexual Orientation Not on file Last Filed Vital Signs Vital Sign Reading Time Taken Comments Blood Pressure 98/64 10/02/2019 8:21 AM LINE INSTALLER TROLLEY Pulse 55 10/02/2019 8:21 AM LINE INSTALLER TROLLEY Temperature 37.1 ??C (98.8 ??F) 11/24/2018 12:06 PM C DT Respiratory Rate 16 11/24/2018 12:06 PM CDT Oxygen Saturation 98% 11/24/2018 12:06 PM CDT Inhaled Oxygen Concentration - - Weight 80.4 kg (177 lb 3.2 oz) 10/02/2019 8:21 A M LINE INSTALLER TROLLEY Height 165.1 cm (5' 5 ) 10/02/2019 8:21 AM LINE INSTALLER TROLLEY Body Mass Index 29.49 10/02/2019 8:21 AM LINE INSTALLER TROLLEY Plan of Treatment Not on file Medical Devices Implanted Type Area Wireless Internet Installer Device Identifier Shelf Expiration Date Model / Serial / Lot [employer] Nephew[employer]Richco/Or tho [id number] Legion 9mm Dished Knee 3-4 Insert Tibial Xlpe - [id number] Implanted:Qty: 1 on 11/11/2018 by Kemal Wright MD at [facility] Right: Knee [employer]Richco/Or tho 08/11/2028 [id number] / / [id number] Is[employer]hew[employer]Richco/Or tho [id number] 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 Taper Knee Right 4 Baseplate Tibial Titanium - [id number] Implanted:Qty: 1 on 11/11/2018 by Kemal Wright MD at [facility] Right: Knee [employer]hew[employer]Richco/Or tho 07/18/2028 [id number] / / [id number]- Size 4 Right Cruciate Retaining Legion Oxinium Femoral Componenet Implanted:Qty: 1 on 11/11/2018 by Kemal Wright MD at [facility] Right: Knee Islas [employer] Nephew [id number] 01/06/2028 [id number] / / [id number] [employer] [id number] Palacos R+G High Viscosity Cement Bone Gentamicin Arthroplasty - [id number] Implanted:Qty: 1 on 11/11/2018 by Kemal Wright MD at [facility] Right: Knee [employer] 04/15/2021 [id number] / / [id number] Insurance MEDICARE [employer] MEDICARE [facility] Address: [address] [address] [place] [address] [employer] Advance Directives For more information, please contact: [phone] * Full Code (Latest Code Status on File) Date Activated Date Inactivated Comments 11/14/2018 1:26 PM 11/15/2018 7:15 PM * Full Code Date Activated Date Inactivated Comments 11/13/2018 10:00 AM 11/14/2018 1:16 PM per patient request * Full Code Date Activated Date Inactivated Comments 11/11/2018 7:40 PM 11/12/2018 8:26 PM Care Teams Buffing Wheel Former Automatic Relationship Specialty Start Date End Date Dominic Fernando MD [address] [place] [address] PCP - General 08/13/17
--- OUTSIDE RECORDS SUMMARY | 2024-10-12 14:09 | XMS_ITS | Clinical Summary ---
Author Organization [facility] [place] Address [address] [place] [address] Care Team Providers Care Bench Technician Name Role Phone Boris Mcnair Primary Care Provider [phone] Source Comments [facility],non-owned Affiliates and Associated Physician Practices is amultiple site organization consisting of ambulatory clinics and hospital sitesin [place], [place] and [place]. This disclosure is being madepursuant to the Care Everywhere program and may not contain all information available regarding this patient. Last updated 18.[facility] Allergies Active Allergy Reactions Criticality Noted Date [...] MG tablet 10/09/2018 Active Cholecalciferol (VITAMIN D3) 53258 units capsule Active Active Problems Problem Noted [...] - COLON CA SCREENING 1961 MAMMOGRAM 1961 MEDICARE AWV ? 12 MONTHS 1961 PAP SMEAR 1961 HIV SCREENING 1976 HEPATITIS C SCREENING 05/09/1979 DTAP/TDAP/TD VACCINES (1 - Tdap) 1980 PNEUMOCOCCAL VACCINE 50+ (1 of 2 - PCV) 1980 PNEUMOCOCCAL VACCINE (1 of 2 - PCV) 1980 LUNG CANCER SCREENING 2011 ZOSTER VACCINE (1 of 2) 2011 SCREENING FOR DIABETES 02/07/2021 02/07/2018 COVID-19 VACCINE (1 - 2023-2 5 season) 2024 INFLUENZA VACCINE (#1) 2024 DEPRESSION SCREENING 09/16/2024 MEDICARE AWV ? CALENDAR YEAR 2024 Respiratory Syncytial Virus (RSV) Vaccine Pt: [...] patient's age to complete this topic MENINGOCOCCAL (Group B) VACCINE Aged Out No longer eligible based on [...] - 26 mg/dL 02/07/2018 1:22 PM CDT [facility] Creatinine 1.0 0.6 - 1.2 mg/dL 02/07/2018 1:22 PM [facility] Sodium 136 136 - 145 mmol/L 02/07/2018 1:22 PM [facility] Potassium 3.6 3.5 - 4.5 mmol/L 02/07/2018 1:22 PM [facility] Chloride 101 98 - 107 mmol/L 02/07/2018 1:22 PM [facility] CO2 25 22 - 29 mmol/L 02/07/2018 1:22 PM [facility] Glucose 93 70 - 115 mg/dL 02/07/2018 1:22 PM [facility] Calcium 9.9 8.4 - 10.2 mg/dL 02/07/2018 1:22 PM [facility] Protein Total 7.6 6.0 - 8.3 g/dL 02/07/2018 1:22 PM [facility] Albumin 3.5 3.4 - 5.0 g/dL 02/07/2018 1:22 PM [facility] Bilirubin Total 0.7 0.2 - 1.2 mg/dL 02/07/2018 1:22 PM [facility] Alkaline Phosphatase 109 40 - 150 Units/L 02/07/2018 1:22 PM [facility] ALT 22 0 - 55 Units/L 02/07/2018 1:22 PM [facility] AST 23 5 - 34 Units/L 02/07/2018 1:22 PM [facility] Anion Gap 14 8 - 18 02/07/2018 1:22 PM [facility] BUN/Creatinine Ratio 8 7 - 23 02/07/2018 1:22 PM [facility] Osmolality Calculated 280 270 - 300 mOsm/kg 02/07/2018 1:22 PM [facility] Albumin/Globulin Ratio 0.9(L) 1.1 - 2.3 02/07/2018 1:22 PM [facility] eGFR 57(L) >60 mL/min/1.7 3 m2 02/07/2018 1:22 PM [facility] Blood BLOOD SPECIMEN / Unknown Lab Venipuncture / Unknown 02/07/2018 12:50 PM CDT 02/07/2018 12:55 PM CDT Ester Barajas DO LAB - CHEMISTRY ORD ERABLES [facility] [address] [phone] from Last 3 Months or Most Recently Relevant to Health Maintenance Insurance Payer Benefit Plan / Group Subscriber ID Effective Dates Phone Address Type UHC MANAGED MEDICARE ADV UHC MEDICARE ADV [id number] Effective for all dates [address] [address] [place] [address] Medicare-Ma naged Care MEDICAID [facility] MEDICAID [facility] Effective for all dates [address] [place] [address] Medicaid [facility] MANAGED MEDICARE ADV C MEDICARE ADV [id number] Effective for all dates [address] [address] [place] [address] Medicare-Ma naged Care MEDICAID [facility] MEDICAID [facility] Effective for all dates [address] [place] [address] Medicaid [facility] MANAGED MEDICARE ADV C MEDICARE ADV [id number] Effective for all dates [address] [address] [place] [address] Medicare-Ma naged Care MEDICAID [facility] MEDICAID [place] - [place] Effective for all dates [address] [place] [address] Medicaid [facility] MANAGED MEDICARE ADV [facility] MEDICARE ADV [id number] Effective for all dates [address] [address] [place] [address] Medicare-Ma naged Care MEDICARE WPS MEDICARE PART B [id number] 04/16/2013-Pres ent [address] [address] [place] [address] Medicare MEDICAID - OUT OF STATE [place] [facility] [address] [id number] 03/24/2022-Pres ent [address] [address] [place] [address] Medicaid MEDICARE MEDICARE PART A AND B [id number] 04/16/2013-Pres ent [address] [place] [address] Medicare Advance Directives * Full Code (Latest Code Status on File) Date Activated Date Inactivated Comments 02/15/2018 8:10 AM 02/15/2018 12:04 PM * Full Code Date Activated Date Inactivated Comments 02/14/2018 7:57 AM 02/14/2018 6:16 PM Care Teams Bench Technician Relationship Specialty Start Date End Date Boris cMnair DO [address] [place] [address] PCP - General 04/07/19
--- OUTSIDE RECORDS SUMMARY | 2024-10-12 14:09 | XMS_ITS | Patient Health Record ---
Author Organization [facility] Address [address], [place] [address] Care Team Providers Care Mophead Sewer Name Role Phone Tanner Reid MD Primary Care Provider Tanner Reid Unavailable Unavailable ALLERGIES Allergen (clinical drug ingredient) Drug/Non Drug Allergy documented on EMR Reaction Allergy Type Onset Date Status Latex Gloves Unknown Drug Allergy Acti ve vancomycin Vancomycin HCl Unknown Drug Allergy A ctive penicillin G Penicillin G Sodium Unknown Drug Allergy Active morphine Morphine Sulfate Unknown Drug Allergy Active codeine codeine Unknown Drug Allergy Active REASON FOR REFERRAL [...] finger, initial encounter (S63.631A) 023 Active confirmed [id number] Problem Fall on same level from slipping, tripping and stumbling without subsequent striking against object, initial encounter (W01.0XXA) 023 Active confirmed [id number] Problem Encounter for other specified surgical aftercare (Z48.89) Active confirmed Postoperative c are ([id number]) PLAN OF TREATMENT No Information Insurance Providers Payer Name Payer Address Payer Phone Subscriber Number Group Number Insured Name Patient Relationship to Insured Coverage Start Date Coverage End Date UHC Medicare Advantage PPO [address] [address] [place] [address] [id number] Gege Vidal Self - patient is the insured MEDICAL (GENERAL) HISTORY Medical History History ICD Code Hypothyroidism Surgical History Surgery Date(Month/Year) right knee arthroscopy tubal ligation tonsillectomy hysterectomy neck right knee arthroscopy shoulder arthroscopy, right x2
--- OUTSIDE RECORDS SUMMARY | 2024-10-12 14:09 | XMS_ITS | Clinical Summary ---
Author Organization [facility] Address [address] [place] [address] Care Team Providers Care Feed Mill Manager Name Role Phone Dominic Fernando MD Primary Care Provider [phone] Allergies Active Allergy Reactions Criticality Noted Date [...] mcg tablet Take 112 mcg by mouth slack line yarder before breakfast. 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 Gender Identity Not on file Sexual Orientation Not on file Obstetrics History Last Filed Vital Signs Vital Sign Reading Time Taken Comments Blood Pressure 98/64 10/02/2019 8:21 AM SLIME PLANT OPERATOR HELPER Pulse 55 10/02/2019 8:21 AM SLIME PLANT OPERATOR HELPER Temperature 37.1 ??C (98.8 ??F) 11/24/2018 12:06 PM C DT Respiratory Rate 16 11/24/2018 12:06 PM CDT Oxygen Saturation 98% 11/24/2018 12:06 PM CDT Inhaled Oxygen Concentration - - Weight 80.4 kg (177 lb 3.2 oz) 10/02/2019 8:21 A M SLIME PLANT OPERATOR HELPER Height 165.1 cm (5' 5 ) 10/02/2019 8:21 AM SLIME PLANT OPERATOR HELPER Body Mass Index 29.49 10/02/2019 8:21 AM SLIME PLANT OPERATOR HELPER Plan of Treatment Not on file Medical Devices Implanted Type Area Adz Worker Device Identifier Shelf Expiration Date Model / Serial / Lot [employer] Nephew[employer]Richco/Or tho [id number] Legion 9mm Dished Knee 3-4 Insert Tibial Xlpe - [id number] Implanted:Qty: 1 on 11/11/2018 by Kemal Wright MD at [facility] Right: Knee [employer]Or tho 08/11/2028 [id number] / / [id number] [employer]Or tho [id number] 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 Taper Knee Right 4 Baseplate Tibial Titanium - [id number] Implanted:Qty: 1 on 11/11/2018 by Kemal Wright MD at [facility] Right: Knee [employer]Or tho 07/18/2028 [id number] / / [id number] Size 4 Right Cruciate Retaining Legion Oxinium Femoral Componenet Implanted:Qty: 1 on 11/11/2018 by Kemal Wright MD at [facility] Right: Knee [employer]hew [id number] 01/06/2028 [id number] / / [id number] [employer] [id number] Palacos R+G High Viscosity Cement Bone Gentamicin Arthroplasty - [id number] Implanted:Qty: 1 on 11/11/2018 by Kemal Wright MD at [facility] Right: Knee [employer] 04/15/2021 [id number] / / [id number] Insurance MEDICARE [facility] MEDICARE [facility] Address: [address] [address] [facility] Advance Directives For more information, please contact: [phone] * Full Code (Latest Code Status on File) Date Activated Date Inactivated Comments 11/14/2018 1:26 PM 11/15/2018 7:15 PM * Full Code Date Activated Date Inactivated Comments 11/13/2018 10:00 AM 11/14/2018 1:16 PM per patient request * Full Code Date Activated Date Inactivated Comments 11/11/2018 7:40 PM 11/12/2018 8:26 PM Care Teams Feed Mill Manager Relationship Specialty Start Date End Date Dominic Fernando MD [address] [facility] [address] [email or web address] [address] [place] [address] PCP - General 08/13/17
--- OUTSIDE RECORDS SUMMARY | 2024-10-12 14:09 | XMS_ITS | Patient Health Summary ---
Author Organization [facility] Address [address] [place] [address] Care Team Providers Care Section Chief Name Role Phone Boris Mcnair Primary Care Provider Note from [facility],non-owned Affiliates and Associated Physician Practices is amultiple site organization consisting of ambulatory clinics and hospital sitesin [place], [place], [place] and [place]. This disclosure is being madepursuant to the Care Everywhere program and may not contain all information available regarding this patient. Last updated 18.[facility] Allergies * Adhesive Sensitivity(Other) -Medium Criticality * [...] MG tablet(Started 10/09/2018) * Cholecalciferol (VITAMIN D3) 68373 units capsule Active Problems Problem Noted Date [...] Deshaun Boland MD - 04/02/2019 Heather James DREDGE PIPEMAN-JEWEL STAKER VASCULAR LAB OR DERABLES * VAS CAROTID DUPLEX BILATERAL (04/02/2019 9:18 AM CDT) Only the most recent of2 resultswithin the time period is included. Anatomical Region Laterality Modality Intravascular Ul trasound 04/02/2019 8:18 AM CDT Narrative Procedure Note Deshaun Boland MD - 04/02/2019 Too Lara MD VASCULAR LAB ORDERAB LES * CARDIAC EKG ORDER (08/04/2018 12:01 PM STEREO MAP PLOTTER OPERATOR) Only the most recent of2 resultswithin the time period is included. Narrative 08/04/2018 12:01 PM STEREO MAP PLOTTER OPERATOR Ordered by an unspecified provider. Scanned Document CARDIAC SERVICES ORD ERABLES * ACT - POCT (IP) [facility] (02/14/2018 12:55 PM CDT) Only the most recent of2 resultswithin the time period is included. Activated Clotting Time 255 sec [facility] POCT TESTING Blood BLOOD SPECIMEN / Unknown 02/14/2018 12:55 PM CDT Kevin Bower MD LAB - POINT OF CARE ORDERABLES [facility] POCT TESTING [address] [phone] * PREPARE (CROSSMATCH) RBC UNIT(S), 2 Units (02/14/2018 9:11 AM CDT) Unit Description LR Red Cells [facility] BLOOD BANK LAB Unit ABO O [facility] BLOOD [facility]ANK LAB Unit Rh POS [facility] BLOOD BANK LAB Product Code RL1 [facility] BLO OD BANK LAB Unit Donor # [id number] [facility] BLOOD BANK LAB Unit Status released [facility] BLOO D BANK LAB Product Number [id number] [facility] B LOOD BANK LAB Blood Type Barcode 5100 [facility] BLOOD BANK LAB Unit Description LR Red Cells [facility] BLOOD [facility]ANK LAB Unit ABO O [facility] BLOOD [facility]ANK LAB Unit Rh POS [facility] BLOOD [facility]ANK LAB Product Code RL3 [facility] BLO OD BANK LAB Unit Donor # [id number] [facility] BLOOD [facility]ANK LAB Unit Status released [facility] BLOO D BANK LAB Product Number [id number] [facility] B LOOD BANK LAB Blood Type Barcode 5100 [facility] BLOOD BANK LAB Blood Bank BLOOD SPECIMEN / Unknown 02/14/2018 9:11 AM CDT 02/14/2018 9:11 AM CDT Ester Barajas DO LAB - BLOOD BANK OR DERABLES Performing Organization Address [facility]/ZIP Co de Phone Number [facility] BLOOD BANK LAB [address] [place] [address] * TYPE + SCREEN PANEL (02/14/2018 9:05 AM CDT) Antibody Screen NEG 8 9:58 AM CDT [facility] BLOOD BANK LAB ABO Rh O POS 02/14/2018 9:58 AM CDT [facility] BLOOD BANK LAB Blood Bank BLOOD SPECIMEN / Unknown Venipuncture / Unknown 02/14/2018 9:05 AM CDT 02/14/2018 9:10 AM CDT Paulina Andujar DREDGE PIPEMAN-CUTTING DEPARTMENT SUPERVISOR LAB - BLOOD BA NK ORDERABLES Performing Organization Address [facility] Co de Phone Number [facility] BLOOD BANK LAB [address] [place] [address] * (ABNORMAL) PTT [facility] (02/07/2018 12:50 PM CDT) APTT 42.0(H) 23.0 - 38.4 Seconds 02/07/2018 1:16 PM CDT [facility] Comment: Suggested therapeutic range for full dose I.V. heparin therapy for venous thromboembolism is 66.0-91.0 seconds. Blood BLOOD SPECIMEN / Unknown Lab Venipuncture / Unknown 02/07/2018 12:50 PM CDT 02/07/2018 12:55 PM CDT Ester Barajas DO LAB - COAGULATION O RDERABLES Performing Organization Address [facility]/ZIP Co de Phone Number [facility] [address] [place] [address] * (ABNORMAL) PT-INR [facility] (02/07/2018 12:50 PM CDT) PT 19.0(H) 12.1 - 14.8 Seconds 02/07/2018 1:15 PM CDT [facility] INR 1.6 See Comment 02/07/2018 1:15 PM [facility] Comment: Suggested therapeutic range for low-intensity [...] Barajas DO LAB - COAGULATION O RDERABLES [facility] [address] [phone] * CBC W AUTO DIFFERENTIAL (02/07/2018 12:50 PM CDT) WBC 8.0 3.5 - 10.5 10? 3 /uL 02/07/2018 1:01 PM [facility] RBC 4.82 3.90 - 5.00 10? 6 /uL 02/07/2018 1:01 PM [facility] Hemoglobin 13.6 12.0 - 15.5 g/dL 02/07/2018 1:01 PM [facility] Hematocrit 40.6 35.0 - 45.0 % 02/07/2018 1:01 PM [facility] MCV 84.2 81.0 - 97.0 fL 02/07/2018 1:01 PM [facility] MCH 28.2 28.0 - 34.0 pg 02/07/2018 1:01 PM [facility] MCHC 33.5 32.0 - 36.0 g/dL 02/07/2018 1:01 PM [facility] Platelet Count 292 150 - 400 10? 3 /uL 02/07/2018 1:01 PM [facility] RDW-SD 39.7 36.0 - 50.0 fL 02/07/2018 1:01 PM [facility] RDW-CV 12.9 11.2 - 14.8 % 02/07/2018 1:01 PM [facility] MPV 10.3 9.3 - 12.8 fL 02/07/2018 1:01 PM [facility] Neutrophils % 64.9 35.0 - 70.0 % 02/07/2018 1:01 PM [facility] Lymphocytes % 25.9 19.7 - 55.1 % 02/07/2018 1:01 PM [facility] Monocytes % 6.3 3.0 - 15.0 % 02/07/2018 1:01 PM [facility] Eosinophils % 2.6 0.0 - 6.0 % 02/07/2018 1:01 PM [facility] Basophil % 0.3 0.0 - 1.5 % 02/07/2018 1:01 PM [facility] Neutrophils Absolute 5.2 1.6 - 7.0 10? 3 /uL 02/07/2018 1:01 PM [facility] Lymphocyte Absolute 2.1 0.8 - 2.9 10? 3 /uL 02/07/2018 1:01 PM [facility] Monocytes Absolute 0.50 0.14 - 0.66 10? 3 /uL 02/07/2018 1:01 PM [facility] Eosinophils Absolute 0.21 0.00 - 0.22 10? 3 /uL 02/07/2018 1:01 PM [facility] Basophils Absolute 0.02 0.00 - 0.06 10? 3 /uL 02/07/2018 1:01 PM [facility] Immature Granulocytes % 0.3 0.0 - 1.0 % 02/07/2018 1:01 PM [facility] Blood BLOOD SPECIMEN / Unknown Lab Venipuncture / Unknown 02/07/2018 12:50 PM CDT 02/07/2018 12:55 PM CDT Ester Barajas DO LAB - HEMATOLOGY OR DERABLES [facility] [address] [phone] * (ABNORMAL) COMPREHENSIVE METABOLIC PANEL (02/07/2018 12:50 PM CDT) BUN 8 7 - 26 mg/dL 02/07/2018 1:22 PM [facility] Creatinine 1.0 0.6 - 1.2 mg/dL 02/07/2018 1:22 PM [facility] Sodium 136 136 - 145 mmol/L 02/07/2018 1:22 PM [facility] Potassium 3.6 3.5 - 4.5 mmol/L 02/07/2018 1:22 PM [facility] Chloride 101 98 - 107 mmol/L 02/07/2018 1:22 PM [facility] CO2 25 22 - 29 mmol/L 02/07/2018 1:22 PM [facility] Glucose 93 70 - 115 mg/dL 02/07/2018 1:22 PM [facility] Calcium 9.9 8.4 - 10.2 mg/dL 02/07/2018 1:22 PM [facility] Protein Total 7.6 6.0 - 8.3 g/dL 02/07/2018 1:22 PM [facility] Albumin 3.5 3.4 - 5.0 g/dL 02/07/2018 1:22 PM [facility] Bilirubin Total 0.7 0.2 - 1.2 mg/dL 02/07/2018 1:22 PM [facility] Alkaline Phosphatase 109 40 - 150 Units/L 02/07/2018 1:22 PM [facility] ALT 22 0 - 55 Units/L 02/07/2018 1:22 PM [facility] AST 23 5 - 34 Units/L 02/07/2018 1:22 PM [facility] Anion Gap 14 8 - 18 02/07/2018 1:22 PM [facility] BUN/Creatinine Ratio 8 7 - 23 02/07/2018 1:22 PM [facility] Osmolality Calculated 280 270 - 300 mOsm/kg 02/07/2018 1:22 PM [facility] Albumin/Globulin Ratio 0.9(L) 1.1 - 2.3 02/07/2018 1:22 PM [facility] eGFR 57(L) >60 mL/min/1.7 3 m2 02/07/2018 1:22 PM [facility] Blood BLOOD SPECIMEN / Unknown Lab Venipuncture / Unknown 02/07/2018 12:50 PM CDT 02/07/2018 12:55 PM CDT Ester Barajas DO LAB - CHEMISTRY ORD ERABLES Performing Organization Address City/[facility]/ZIP Co de Phone Number [facility] [place] [id number] [phone] * EKG 12-LEAD (02/07/2018 10:08 AM CDT) Ventricular Rate 57 BPM [facility]USE Atrial Rate 57 BPM [facility] MUSE P-R Interval 206 ms [facility] MUSE QRS Duration ms 84 ms [facility] Q-T Interval ms 428 ms [facility] MUSE QTC Calculation (Bezet) 416 ms [facility]USE Calculated P [place] 70 degrees [facility]USE Calculated R [place] 23 degrees [facility] Calculated T [place] 60 degrees [facility] Interpretation EKG Sinus bradycardia~Po or R wave progression in precordial leads~Otherwis e normal ECG~No previous ECGs available~Conf irmed by Ancelmo KISER, JEVON ([id number]), telegraph editor AMOS MCCLENDON ([id number]) on 02/13/2018 1:47:34 PM [facility] MUSE 02/07/2018 10:0 8 AM CDT 02/13/2018 1:47 PM CDT Ester Barajas DO ECG ORDERABLES Performing Organization Address [facility] Co de Phone Number [facility] MUSE * XR LUMBAR SPINE 4+ VW (08/19/2014 3:54 AM STEREO MAP PLOTTER OPERATOR) Anatomical Region Laterality Modality Spine Radiographic Yulisa ging 08/19/2014 7:39 AM STEREO MAP PLOTTER OPERATOR Impressions 08/19/2014 8:06 AM STEREO MAP PLOTTER OPERATOR Mild degenerative changes. Edited by Juanita Odonnell on 08/19/2014 7:51 AM Narrative 08/19/2014 8:06 AM STEREO MAP PLOTTER OPERATOR LUMBAR SPINE 5 VIEWS INDICATION: Low back [...] SHOULDER 2+ VW RIGHT (08/19/2014 3:54 AM STEREO MAP PLOTTER OPERATOR) Anatomical Region Laterality Modality Upper Extremity Radiographic Yulisa ging 08/19/2014 8:04 AM STEREO MAP PLOTTER OPERATOR Impressions 08/19/2014 8:04 AM STEREO MAP PLOTTER OPERATOR No fracture. Narrative 08/19/2014 8:04 AM STEREO MAP PLOTTER OPERATOR Right shoulder 2 views unilateral Indication: Right [...] MD DIAGNOSTIC IMAGING O RDERABLES Care Teams Section Chief Relationship Specialty Start Date End Date Boris Mcnair DO [address] [place] [address] PCP - General 04/07/19
--- OUTSIDE RECORDS SUMMARY | 2024-10-12 14:09 | XMS_ITS ---
Author Organization [facility] Address [address] [place] [address] Care Team Providers Care Electric Sign Wirer Name Role Phone Eris Vu Primary Care Provider Breann Zuniga [phone] REASON FOR VISIT Message Encounters Encounter Location Date Provider Diagnosis [facility] [address] [place] [address] 09/29/2024 Breann Chavira Plan Of Treatment No Information Progress Notes * Gege VIDALDOB:1960 (64 yo F)Acc No.[id number]:09/29/2024 Patient:?Gege VDIAL :1960???Age:64 Y???Sex:Female Address:[address], [place], [address] * true * Date:? Generated for Neal gonzalez/Randall/eTransmitting on:?10/12/2024 02:08 PM RESEARCH AND DEVELOPMENT DIRECTOR
--- OUTSIDE RECORDS SUMMARY | 2024-10-12 14:09 | XMS_ITS | Continuity of Care Document ---
Author Organization [facility] Address [address] [place] [address] Phone Care Team Providers Care Vocational Rehabilitation Technician Name Role Phone Unavailable Unavailable Unavailable Advance Directives Directive Yes / No Effective Date File Name No Information Encounters Encounter Description Practice Location Reason(s) For Visit Diagnoses Date Provider Providers Copied on Encounter [facility], [address], [place], [place], [id number], [place] tel:[phone] [facility] [place] No Information Mar-1 6-200 0 No Information [...]
--- OUTSIDE RECORDS SUMMARY | 2024-10-12 14:10 | XMS_ITS | Clinical Summary ---
Author Organization [facility] Address [address] [place] [address]. [place] [address] [place] [address] Care Team Providers Care Discharge Planner Name Role Phone Eris Vu MD Primary Care Provider [phone] Allergies Active Allergy Reactions Criticality Noted Date [...] the lungs 2 (two) times daily. Active Social History Tobacco Use Types Packs/Day Years [...] this topic Medical Devices Implanted Type Area Fiber Optic Central Office Installer Device Identifier Shelf Expiration Date Model / Serial / Lot Tecnis 1-Piece Iol Implanted:Qty: 1 on 06/08/2024 by Jadon Vu MD at [facility] Left: Eye [employer] 10/27/2026 / [id number] / Insurance [id number] MEDICA[facility] Care Teams Discharge Planner Relationship Specialty Start Date End Date Eris Vu MD [address] [place] [address] PCP - General FAMILY PRACTICE 06/05/24
--- OUTSIDE RECORDS SUMMARY | 2024-10-12 14:10 | XMS_ITS | Encounter Summary ---
Author Organization [facility] Address [address] [place] [address] Care Team Providers Care Applications Packager Name Role Phone Eris Vu MD Primary Care Provider [phone] Encounter Details Date Type Department Care Team (Late st Contact Info) Description 10/08/2024 External Device Data [facility] ABSTRACTION Provider, [...] on file Legal Sex Female 12:44 PM REWORK OPERATOR Gender Identity Not on file Sexual Orientation Not on file documented as of this encounter Plan of Treatment Upcoming Encounters Date Type Department Care Team (Late st Contact Info) Description 12/04/2024 11:30 AM CDT Office Visit [facility] Oncology and Hematology - [place] [address] [place] [address] [facility] [address] [place] [address] Chris Owens MD [address] [place] [address] documented as of this encounter Visit Diagnoses Not on filedocumented in this encounter Care Teams Applications Packager Relationship Specialty Start Date End Date Eris Vu MD PCP - General Family Practice 02/21/23 documented as of this encounter
--- OUTSIDE RECORDS SUMMARY | 2024-10-12 14:10 | XMS_ITS ---
Author Organization [facility] Address [address] [place] [address] Care Team Providers Care Cold Press Loader Name Role Phone Eris Vu Primary Care Provider Breann Zuniga Unavailable [phone] REASON FOR VISIT Recently with ocular swelling, [...] ection as directed for 30 days Active Ferrous Sulfate 325 (65 Fe) MG 1 tablet Orally Three times a Week Active Folic Acid 1 MG 1 tablet Orally Once a day Active Lactobacillus - as directed Orally Active Nystatin 712294 UNIT/GM 1 application Ex ternally Twice a [...] for 30 days Any adult spacer Active Albuterol Sulfate HFA 108 (90 Base) MCG/ACT 2 puffs as needed Inhalation every 4 hrs for 30 days Active Advair HFA 230-21 MCG/ACT 2 puffs Inhala tion Twice a day Active Encounters Encounter Location Date Provider Diagnosis [facility] [address] [place] [address] 09/07/2024 Breann Chavira Localized swelling, mass and [...] plans below. - Will request records from [facility], as well as from her router operator. - Follow-up in 4 weeks for [...] Inj ection as needed for 30 days AeroChamber MV - as directed for 30 days Albuterol Sulfate HFA 108 (9 0 Base) MCG/ACT 2 puffs as needed Inhalation every 4 hrs for 30 days Advair HFA 230-21 MCG/ACT 2 [...] plans below. - Will request records from [facility], as well as from her router operator. - Follow-up in 4 weeks for [...] reports history of PVCs, currently prescribed a beta-jrery. If Gege pursues immunotherapy, discuss this further Next Appt Details Follow Up: 4 Weeks, Reason: Evaluation and Management, Laboratory Review, Spirometry/Flow Volume Loop Progress Notes * Gege VIDALDOB:1960 (64 yo F)Acc No.[id number]:09/07/2024 Progress Notes Patient:?Gege VIDAL Provider:?Breann Chavira DNP WIRE PHOTO OPERATOR NEWS-C :1960???Age:64 Y???Sex:Female D ate:09/07/2024 Address:[address] [place], [place] [id number] Pcp:Eris Vu Subjective: * Chief Complaints: * ???1. Recently with ocular s welling, erythema and watering with various ocular drops [...] 8. Rashes with various fragrances.. * HPI: ???*Introduction:?I had the pleasure of [...] left eye. She was seen by her router operator, whorecommended stopping Maxitrol and started her on a prednisolone eye drop, shewas also using Refresh ocular lubricant. She was, once again, seen by her router operator who started a different prednisoloneeye drop. Symptoms persistedand she reports the swelling worsened, due to thisshe was seen at [facility] where she was given steroids andantihistamines, also sent home on prednisone and Benadryl. She reports shecontinued to use the second prednisolone drop she was prescribed. Several dayslater she was seen once again by her router operator, who stopped theprednisolone ocular drop and recommended Refresh preservative- free drops. Afterfinishing her 7-day course of oral prednisone prescribed at the ER her symptomsresolved. She feels her left eye is still mildly swollen. ?Gege reports a history of various medication allergies. Atage 18 she was prescribed penicillin and codeine due to a presumed infection,for which she passed out and developed swelling, other details are not clear.She has been avoidant of both since. Gege reports generalized erythema and itchingwith vancomycin. She is avoidant of morphine because it dropped my blood pressure, again additional details are not clear. ?Gege endorses upper airway symptoms concerning foruncontrolled atopic disease. Descriptors of her symptoms are outlined below.She has taken Zyrtec previously without benefit. There [facility] two [facility]. She has never undergone allergy testing or received allergenimmunotherapy. ?Gege endorses occasional shortness of breath. Reportshistory of [...] cervical and skincancer. No prior pulmonary evaluation. ?She also reports history of swelling and syncope following abee sting, this was over twenty years ago. She does not recall details, is onlyaware of being stung and waking up surrounded by medical personnel. She has notbeen stung since. She does not carry an AIE. ?Additionally, Gege reports long history of sensitive skin.She is cautious with various fragrances that she uses. In the past has experiencederythematous, scaly rashes. Gege is avoidant of all shellfish as she passedout after eating lobster. She eats finned fish without issue. Gege is seen bycardiology due to a history of PVCs, currently on nebivolol. She lives with tanya and pbdfwxqr-vb-usl. She denies a history of physician-diagnosed allergic [...] ever had a CT scan or xray??Yes ?Where??[facility] ?When??06/2024 ?Have you ever undergone sinus surgery??Yes ?Where??[facility] ?Cough?Frequency:?daily ?Is phlegm produced??No ???*Asthma:?Cough?Do [...] ?Have you ever had a pneumococcal vaccine (EYK-Zaovfbk-Mbinsfyrz)??No ?Have you ever had a tetanus vaccine (UCxz-Eurk-Vg)??Yes ?Ear Infections?Do you have frequent ear infections??No [...] steroids ?Have you been seen by an marketing traffic manager or wire mesh filter fabricator for recurrent bronchitis??No ?Pneumonia History?Have you ever had pneumonia or recurrent pneumonia??Yes ?How many episodes in your entire life??2 ?How many episodes in the past 12 months??0 ?Have you been treated with antibiotics for pneumonia??Yes ?Have you been hospitalized for treatment??No ?Have you been seen by an marketing traffic manager or wire mesh filter fabricator to evaluate your immune system function for [...] treatment??No ?Have you been seen by an marketing traffic manager or wire mesh filter fabricator to evaluate your immune system function for [...] prior reaction(s)??No ?Have you previously seen an marketing traffic manager for evaluation of possible food allergy??No ???*Eosinophilic [...] ?Have you ever been evaluated by an marketing traffic manager for possible allergies 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??No ???*Stinging Insects:?Insect Reaction(s)?Have you ever experienced a stinging insect reaction??Yes ?What type of stinging insect??unknown ?Was the reaction:?small local - where sting occurred ?What symptoms were experienced??syncope (passing out) ?Were you taken to the ER for evaluation??Yes ?Have you been previously prescribed an epinephrine autoinjector??No ?Have you previously seen an marketing traffic manager for evaluation of possible stinging insect allergy??No [...] type:?opioid ?Have you been evaluated by an marketing traffic manager previously for possible drug allergy??No * ROS:?ALLERGY:?Positive?per [...] history, otherwise unremarkable. * Medical History:? * Medications:?Taking Rivaroxa ban 20 MG Tablet 1 tablet with food Orally Once a day , Taking Pantoprazole Sodium 20 MG Tablet Delayed Release 1 tablet 1/2 to 1 hour before morning meal Orally Once a day , Taking Ondansetron 4 MG Tablet Disintegrating 1 tablet on the tongue and allow to dissolve Orally Once a day , Taking Nystatin 015383 UNIT/GM Cream 1 application Externally Twice a [...] as directed Any adult spacer Objective: * Vitals:? * Examination: ???General examination: ?General appearance:?pleasant, well-developed, [...] substances? Notes: See plan above ?? 3.?Other urticaria? Notes: Also with reports of urticaria with other medications, will order tryptase level to assess for mast cell conditions. Consider urine studies, however will obtain baseline tryptase first?? 4.?Hypertrophy of nasal turb inates? Notes: Gege [...] weeks for spirometry and further evaluation and management?? 7.?Toxic effect of venom of bees, accidental (unintentional), initial encounter? Start EPINEPHrine Solution Auto-injector, 0.3 MG/0.3ML, as directed, Injection, as needed, 30 days, 1, Refills 0.?? [...] use discussed at length. - Follow-up as above?? 8.?Rash and other [...] Gege pursues immunotherapy, discuss this further?? * Procedure Codes:?77687 SELF- MGMT EDUC & TRAIN, 1 PT, [address] PT-FOCUSED HLTH RISK ASSMT, G8427 DOC MEDS VERIFIED W/PT OR RE, A4617 Mouthpiece, 95406 RESPIRATORY FLOW VOLUME LOOP, 09643 Breann Chavira - Incident-to * Preventive Medicine:? [...] Management, Laboratory Review, Spirometry/Flow Volume Loop) * Druing Information: * Visit Code:? 55891 Office Visit, New Pt., Level 5. Modifiers: 25 * Procedure Codes:? 47654 SELF-MGMT EDUC & TRAIN, 1 PT. [address] PT-FOCUSED HLTH RISK ASSMT. G8427 DOC MEDS VERIFIED W/PT OR RE. A4617 Mouthpiece. 89966 RESPIRATORY FLOW VOLUME LOOP. 39285 Breann Chavira - Incident-to. * Electronic signature of Breann Chavira DNP, FNP-C on 10/12/2024 at 02:09 PM BUILDING CONSTRUCTION SUPERVISOR Sign off status: Pending * Provider:?VALERIE Black-C Suraj e:?09/07/2024 Generated for Neal gonzalez/Randall/Eduardo on:?10/12/2024 02:09 PM BUILDING CONSTRUCTION SUPERVISOR History and Physical Notes * HPI (History of Present Illness) Category Sub-Category Detail Notes Category Not es *Introduction I had the pleasure of seeing Gege Vidal, a 64-year-old female with [...] left eye. She was seen by her router operator, who recommended stopping Maxitrol and started her on a prednisolone eye drop, she was also using Refresh ocular lubricant. She was, once again, seen by her router operator who started a different prednisolone eye drop. Symptoms persistedand she reports the swelling worsened, due to this she was seen at [facility] where she was given steroids and antihistamines, also sent home on prednisone and Benadryl. She reports she continued to use the second prednisolone drop she was prescribed. Several days later she was seen once again by her router operator, who stopped the prednisolone ocular drop and [...] nebivolol. She lives with her son and [id number]-[id number]-nzk. She denies a history of physician-diagnosed allergic [...] CT scan or xray?: Ye s ?Where?: [facility] ?When?: 06/2024 Have you ever undergone sinus surgery?: Yes ?Where?: [facility] Allergic rhinitis Do you have [...] Have you ever had a pneumococcal vaccine (JPD-Adxazpo-Jkzteuptf)?: No Have you ever had a tetanus [...] been seen by an al lergist or wire mesh filter fabricator for recurrent bronchitis?: No Pneumonia History Have you ever had pneumonia or recurrent pneumonia?: Yes ?How many episodes in your entire life?: 2 ?How many episodes in the past 12 months ?: 0 ?Have you been treated with antibiotics for pneumonia? : Yes ??Have you been hospitalized for treatme nt?: No ?Have you been seen by an al lergist or wire mesh filter fabricator to evaluate your immune system function for [...] been seen by an al lergist or wire mesh filter fabricator to evaluate your immune system function for [...] Have you been evaluated by a n marketing traffic manager previously for possible drug allergy?: No [...] autoinjector?: No ?Have you previously seen an marketing traffic manager for evaluation of possible stinging insect [...] reaction(s)?: No ?Have you previously seen an marketing traffic manager for evaluation of possible food allergy?: [...] you ever been evaluate d by an marketing traffic manager for possible allergies related to your [...]
[2024-10-17 08:03] LABS: Metanephrine, Free 37 pg/mL (<=57); Normetanephrine, Free 206 pg/mL (<=148); Total, Free (MN + NMN) 243 pg/mL (<=205)
[2024-10-17 14:48] LABS: Metanephrine, Total Urine 276 mcg/24 h (224-832); Metanephrine, Urine 69 mcg/24 h (90-315); Normetanephrine, Urine 207 mcg/24 h (122-676)
[2024-10-17 15:44] LABS: Vanillymandelic Acid 24 Hr Ur 3.1 mg/24 h (< OR = 6.0)
== END 2024-10-12 13:16 | disposition home or self-care (01) ==
LOC: ANHLAB 13:25
PROVIDERS: PCP Internal Medicine
DX: L50.8 Other urticaria (principal)
CPT/HCPCS: 36415; 83150; 83497; 83835; 84585

== ENCOUNTER 2024-10-31 22:21 | Emergency (ER) | payer MEDICARE, MEDICAID, SELFPAY ==
--- OUTSIDE RECORDS SUMMARY | 2024-10-31 22:24 | XMS_ITS | Clinical Summary ---
Author Organization [facility] Address [address] [place] [address] Care Team Providers Care Finisher Brush Name Role Phone Eris Vu MD Primary Care Provider Allergies Active Allergy Reactions Criticality Noted Date [...] 61 06/08/2024 11:15 AM CDT Temperature 36.3 C (97.3 F) 06/08/2024 9:56 AM CDT Respiratory Rate 18 06/08/2024 9:56 AM CDT [...] (1 - 1-dose 75+ series) 2036 Meningococcal B Vaccine Aged Out No l onger eligible based on patient's age to complete this topic Meningococcal Vaccine Aged Out No daniela brook eligible based on patient's age to complete this topic RSV Immunizations Under 20 Months Aged Out No longer eligible b ased on patient's age to complete this topic Medical Devices Implanted Type Area Coroner Technician Device Identifier Shelf Expiration Date Model / Serial / Lot Tecnis 1-Piece Iol Implanted:Qty: 1 on 06/08/2024 by Jadon Vu MD at [facility] Left: Eye [employer] 10/27/2026 / [id number] / Insurance MEDICAID Care Teams Finisher Brush Relationship Specialty Start Date End Date Eris Vu MD [address] [place] [address] PCP - General FAMILY PRACTICE 06/05/24
--- OUTSIDE RECORDS SUMMARY | 2024-10-31 22:24 | XMS_ITS ---
Author Organization [facility] Address [address] [place] [address] Care Team Providers Care Barrel Builder Name Role Phone Eris Vu Primary Care Provider Breann Zuniga Unavailable [phone] REASON FOR VISIT Recently with ocular swelling, [...] Lactobacillus - as directed Orally Active Nystatin 896542 UNIT/GM 1 application Ex ternally Twice a [...] Active Encounters Encounter Location Date Provider Diagnosis [facility] [address] [place] [address] 09/07/2024 Breann Chavira Localized swelling, mass and [...] plans below. - Will request records from [facility], as well as from her aadc plans staff officer. - Follow-up in 4 weeks for laboratory [...] plans below. - Will request records from [facility], as well as from her aadc plans staff officer. - Follow-up in 4 weeks for laboratory [...] Notes * Gege VIDALDOB:1960 (64 yo F)Acc No.[id number]:09/07/2024 Progress Notes Patient: Gege MADERA Provider: Rashel Chavira DNP SHOE PLANNER-C :1960 A ge:64 Y S ex:Female Date:09/07/2024 [address] [place] [facility] Pcp:Eris Vu Subjective: * Chief Complaints: * 1 . [...] with various fragrances.. * HPI: * Introduction: I had the pleasure of seeing Maryse Vidal, a 64-year-old female with pastmedical history [...] left eye. She was seen by her aadc plans staff officer, whorecommended stopping Maxitrol and started her on a prednisolone eye drop, shewas also using Refresh ocular lubricant. She was, once again, seen by her aadc plans staff officer who started a different prednisoloneeye drop. Symptoms persistedand she reports the swelling worsened, due to thisshe was seen at [facility] where she was given steroids andantihistamines, also sent home on prednisone and Benadryl. She reports shecontinued to use the second prednisolone drop she was prescribed. Several dayslater she was seen once again by her aadc plans staff officer, who stopped theprednisolone ocular drop and recommended Refresh preservative-free drops. Afterfinishing her 7-day course of oral prednisone prescribed at the ER her symptomsresolved. She feels her left eye is still mildly swollen. Maryse james reports a history of various medication allergies. Atage 18 she was prescribed penicillin and codeine due to a presumed infection,for which she passed out and developed swelling, other details are not clear.She has been avoidant of both since. Gege reports generalized erythema and itchingwith vancomycin. She is avoidant of morphine because it dropped my blood pressure, again additional details are not clear. Maryse james endorses upper airway symptoms concerning foruncontrolled atopic disease. Descriptors of her symptoms are outlined below.She has taken Zyrtec previously without benefit. There are two dogs in [facility]. She has never undergone allergy testing or received allergenimmunotherapy. Maryse james endorses occasional shortness of breath. Reportshistory [...] on nebivolol. She lives with tanya and vikbvrll-zv-lme. She denies a history of physician-diagnosed allergic [...] O ccurence? i ntermittent H ow frequent? d aily W hen does this mostly occur? a nytime S ymptoms: i tching,watering,redness,sensitive to light,swelling of the lids Nose S pecific area affected: b oth (bilateral) O ccurence? i ntermittent H ow frequent? d aily W hen does this mostly occur? a nytime S ymptoms? i tching,congestion,sneezing jags,postnasal drainage Sinuses D o you have sinus pain? N o H ave you lost sense of taste? N o H ave you been treated with antibiotics for sinusitis? N o H ave you ever had a CT scan or xray? Y es W here? A [facility] W hen? [address] you ever undergone sinus surgery? Y es W here? G [facility] Cough F requency: d aily I s [...] ave you ever had a pneumococcal vaccine (TLQ-Xdizovs-Iwjmbonkg)? N o H ave you ever had a tetanus vaccine (RFpw-Ayjp-Hg)? Y es Ear Infections D o you [...] H ave you been seen by an pedicab driver or loan specialist for recurrent bronchitis? N o Pneumonia History H ave you ever had pneumonia or recurrent pneumonia? Y es H ow many episodes in your entire life? 2 H ow many episodes in the past 12 months? 0 [address] you been treated with antibiotics for pneumonia? Y es H ave you been hospitalized for treatment??No H ave you been seen by an pedicab driver or loan specialist to evaluate your immune system function for [...] H ave you been seen by an pedicab driver or loan specialist to evaluate your immune system function for [...] o H ave you previously seen an pedicab driver for evaluation of possible food allergy? 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 [...] H ave you been evaluated by an pedicab driver previously for possible drug allergy? N o [...] unremarkable. * Medical History: * Medications: T juana Rivaroxaban 20 MG Tablet 1 tablet with food Orally Once a day , Taking Pantoprazole Sodium 20 MG Tablet Delayed Release 1 tablet 1/2 to 1 hour before morning meal Orally Once a day , Taking Ondansetron 4 MG Tablet Disintegrating 1 tablet on the tongue and allow to dissolve Orally Once a day , Taking Nystatin 606381 UNIT/GM Cream 1 application Externally Twice a [...] 8960 SELF-MGMT EDUC & TRAIN, 1 PT, [address] PT-FOCUSED HLTH RISK ASSMT, G8427 DOC MEDS VERIFIED W/PT OR RE, A4617 Mouthpiece, [address]2812 RESPIRATORY FLOW VOLUME LOOP, 36271 Breann Chavira - Incident-to * Preventive Medicine: [...] Loop) * Billing Information: * Visit Code: 27221 Office Visit, New Pt., Level 5. Modifiers: 25 * Procedure Codes: 16282 SELF-MGMT EDUC & TRAIN, 1 [place]. [address] PT-FOCUSED HLTH RISK ASSMT. G8427 DOC MEDS VERIFIED W/PT OR RE. A4617 Mouthpiece. 10275 RESPIRATORY FLOW VOLUME LOOP. 31211 Breann Chavira - Incident-to. * Electronic signature of Breann Chavira DNP, FNP-Dirk on 10/31/2024 at 10:24 PM GENERAL ASSEMBLER Sign off status: Pending * Provider: VALERIE Almonte-C Date: 11/08/2023 Generated for Neal gonzalez/Randall/Eduardo on: 0 10/31/2024 10:24 PM GENERAL ASSEMBLER History and Physical Notes * HPI (History [...] left eye. She was seen by her aadc plans staff officer, who recommended stopping Maxitrol and started her on a prednisolone eye drop, she was also using Refresh ocular lubricant. She was, once again, seen by her aadc plans staff officer who started a different prednisolone eye drop. Symptoms persistedand she reports the swelling worsened, due to this she was seen at [facility] where she was given steroids and antihistamines, also sent home on prednisone and Benadryl. She reports she continued to use the second prednisolone drop she was prescribed. Several days later she was seen once again by her aadc plans staff officer, who stopped the prednisolone ocular drop and [...] nebivolol. She lives with her son and ppvzfvvi-cj-imw. She denies a history of physician-diagnosed allergic [...] CT scan or xray?: Ye s Where?: [facility] When?: 06/2024 Have you ever undergone sinus surgery?: Yes Where?: [facility] Allergic rhinitis Do you have or suspe [...] Have you ever had a pneumococcal vaccine (DPJ-Knhaivr-Blrubjjuu)?: No Have you ever had a tetanus [...] steroids Have you been seen by an pedicab driver or loan specialist for recurrent bronchitis?: No Pneumonia History Have you ever had pneumonia or recurrent pneumonia?: Yes How many episodes in your entire life?: 2 How many episodes in the past 12 months?: 0 Have you been treated with antibiotics for pneumonia? : Yes Have you been hospitalized for treatment?: No Have you been seen by an pedicab driver or loan specialist to evaluate your immune system function for [...] No Have you been seen by an pedicab driver or loan specialist to evaluate your immune system function for [...] Have you been evaluated by a n pedicab driver previously for possible drug allergy?: No *Stinging [...] autoinjector?: No Have you previously seen an pedicab driver for evaluation of possible stinging insect allergy?: [...] reaction(s)?: No Have you previously seen an pedicab driver for evaluation of possible food allergy?: No [...] Have you ever been evaluated by an pedicab driver for 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
--- OUTSIDE RECORDS SUMMARY | 2024-10-31 22:24 | XMS_ITS ---
Author Organization [facility] Address [address] [place] [address] Care Team Providers Care Brusher Machine Name Role Phone Horace Eris Primary Care Provider Breann Zuniga Unavailable [phone] Allergies Allergen (clinical drug ingredient) Drug/Non Drug [...] tablet Orally Once a day Active Nystatin 994319 UNIT/GM 1 application Externally Twice a day [...] Blood pressure diastolic 80 mm Hg 025 Height 64 in 10/06/2024 Weight 181.6 lbs 10/06/2024 BMI 31.17 kg/m2 10/06/2024 Oximetry 98 % 10/06/2024 Encounters Encounter Location Date Provider Diagnosis [facility] [address] [address] [place] [address] 10/06/2024 Breann Chavira Localized swelling, mass and [...] as she would like to go to [facility]. - Will request records from [facility], as well as from her enrober tender. Still awaiting. - Follow-up in 4 weeks [...] as she would like to go to [facility] 10/06/2024 Hypertrophy of nasal turbinates (ICD-10 - [...] office as Gege prefers to go to [facility]. Will obtain full PFT with [facility] device [...] as she would like to go to [facility]. - Will request records from [facility], as well as from her enrober tender. Still awaiting. - Follow-up in 4 weeks [...] as she would like to go to [facility] Hypertrophy of nasal turbinates Gege presents with [...] office as Gege prefers to go to [facility]. Will obtain full PFT with [employer] device [...] took more than:: more than 30 minutes ([id number]) Tasks performed during this encounter include:: taking a history, reviewing the patient's review of systems, reviewing laboratory results, counseling the patient on their diagnoses and chronic management, discussed risks, benefits and alternatives to care, documenting in the EHR Progress Notes * eGge VIDALDOB:1960 (64 yo F)Acc No.[id number]:10/06/2024 Progress Notes Patient: Gege MADERA Provider: VALERIE Almonte :1960 A ge:64 Y S ex:Female Date:10/06/2024 Address:[address], [place], [id number] Pcp:Eris Vu Subjective: * Chief Complaints: * O cular swelling, erythema and watering with various ocular [...] blood pressure.Rashes with various fragrances. * HPI: * Introduction: I had the [...] left eye. She was seen by her enrober tender, whorecommended stopping Maxitrol and started her on a prednisolone eye drop, shewas also using Refresh ocular lubricant. She was, once again, seen by her enrober tender who started a different prednisoloneeye drop. Symptoms persisted and she reports the swelling worsened, due to thisshtrista was seen at [facility] where she was given steroids andantihistamines, also sent home on prednisone and Benadryl. She reports shecontinued to use the second prednisolone drop she was prescribed. Several dayslater she was seen once again by her enrober tender, who stopped theprednisolone ocular drop and recommended [...] without benefit. There are two dogs in [facility]. She has never undergone allergy testing [...] on nebivolol. She lives with tanya and [id number]-lee. Today, she reports no fevers, chills, night sweats or other constitutional symptoms. * ROS: A LLERGY: Positive p er [...] history, otherwise unremarkable. * Medical History: * Surgical History: T OTAL KNEE ARTHROPLASTY RECHANNELING OF ARTERY REMOVAL OF GALLBLADDER KNEE ARTHROSCOPY/SURGERY PARTIAL HYSTERECTOMY LEFT BREAST BIOPSY * Hospitalization/Major Diagno stic Procedure: N o Hospitalization History. * Family History: F ather: , No, diagnosed with Diabetes mellitus type I. M other: Yes, diagnosed with Diabetes mellitus type I. P aternal Grand Father: No. P aternal Grand Mother: No. M aternal Grand Father: No. M aternal Grand Mother: No. S iblings: Yes. C ellenen: Yes.? Mother: Depression Father: Acute Myocardial Infarction. * Social History: M arital Status What is your marital status? w idowed A lcohol Screening Do you ever drink alcoholic beverages? N o S moking Have you ever smoked tobacco: c urrent smoker Additional Findings: Tobacco User L ight cigarette smoker ((1-9 cigs/day) How old were you when you started smoking? 1 8 How often do you smoke cigarettes? e very day How soon after you wake up do you smoke your first cigarette??after 60 minutes How many cigarettes do you smoke per day? 6 to 10 Are you interested in quitting? T hinking about quitting Are you a : l ight tobacco smoker R ecreational drug use Have you ever used recreational drugs? N o D etails on consumption of certain products? Do you regularly consume products with aspartame; Equal or NutraSweet? N o Do you regularly consume products with artificial coloring??No Have you ever noticed worsening of your rash with these food items? N o E xercise What kind(s) of exercise do you perform regularly? w alking How often do you perform this exercise? d aily A re any of the following personal care products containing fragrance, dye or preservatives used regularly? Shampoo: Y es Conditioner: Y es Soap: N o Fabric Softener: N o Deodorant: N o Perfume, cologne, after shave: N o Air freshners or other scented products: N o Hair coloring dyes or rinses: N o Other: N o O ccupation Are you currenly employed? N o Have you ever worked in any of the following: f actory Have you had any job with high exposure to fumes, chemicals, dust or other noxious substances? N o Are you currently a student? N o E nvironmental History Living environment: w ith relatives Where is the home located? [place] How long have you lived there? 5 years or more How many people live in the home? 5 H ome description Basement: Y es Any water damage in basement? N o Smokers in the home? N o Smokers outside the home? Y es Air Conditioning? Y es Central Air? Y es Forced air heating? Y es Gas or electric? g as Fireplace? Y es Used how often? w inter months only Wood burning stove? Y es Used how often? m onthly Do you vacuum the home? Y es Air purification systems? Y es Is it a HEPA (high-efficiency particulate air filter)? Y es Pillow and mattress dust-proof encasings? Y es Do you use a humidifier? N o Do you own any pets? Y es What kind(s)? (click all that apply) d og How many dogs? 2 Where do your pets sleep? a nywhere in the house Fabric softeners used? N o Plants in the home? N o Is there carpeting in your bedroom? Y es Do you have xsls-iq-zgec carpeting? Y es What is the age of your mattress (years)? 4 What material(s) are used to manufacture your bedding and pillow? f eather,natural fiber (e.g. cotton) What is the age of your pillow (years)? 3 What material are your bedding items made of? n atural fiber (e.g. cotton) Do you sleep with quilts or blankets or a duvet? Y es What material? n atural fiber (e.g. cotton) T obacco Control (Standard) Tobacco use: C urrent smoker * Medications: T akingRivaroxaban 20 MG Tablet 1 tablet with food Orally Once a day Pantoprazole Sodium 20 MG Tablet Delayed Release 1 tablet 1/2 to 1 hour before morning meal Orally Once a day Ondansetron 4 MG Tablet Disintegrating 1 tablet on the tongue and allow to dissolve Orally Once a day Nystatin 616180 UNIT/GM Cream 1 application Externally Twice a [...] as directed Injection as needed Advair HFA 230-21 MCG/ACT Aerosol 2 puffs [...] dissolve Orally Once a day Taking Nystatin 676662 UNIT/GM Cream 1 application Externally Twice a [...] reviewed and reconciled with the patient * Allergies: C odeine: anaphylaxisHYDROmorphone: rashLatex: rashlevoFLOXacin: rashno[Allergies Verified] Objective: * Vitals: B P:133/80mm Hg, HR:100/min, Pulse Oximetry:98%, ACT:10, Ht: 64 in, Wt: 181.6 lbs, BMI:31.17Index. * Examination: G eneral examination: General appearance: p yan, well-developed, well-nourished, female, i n no apparent distress, speaking in full sentences. HEENT: c onjunctiva are normal bilaterally. Oral cavity: n ormal, no lesions. Breasts : n ot performed. Neurologic exam: u nremarkable. Skin: n ormal, [...] of bees, accidental (unintentional), subsequent encounter - T63.441D 8 . R sejal and other nonspecific skin eruption - R21 9 . Allergy status to penicillin - Z88.0 1 0. O ther heart disorders in diseases classified elsewhere - I52 1 1. E levated blood-pressure reading, without diagnosis of hypertension - R03.0 Plan: * Treatment: 2. A llergy status to unspecified drugs, medicaments and biological substances Notes: See plan above 3. O ther urticaria L AB: METANEPHRINES, FRACT. LC/MS/MS, 24 HR URINE L AB: METANEPHRINES, FRACT, FREE, LC/MS/MS, PLASMA L AB: TRYPTASE L AB: VMA, 24-HOUR URINE L AB: HOMOVANILLIC ACID, 24-HR URINE L AB: 5-HIAA, 24-HOUR URINE L AB: HISTAMINE, 24 HOUR URINE L AB: LEUKOTRIENE E4, URINE L AB: N METHYLHISTAMINE, 24 HOUR, URINE Notes: Also with reports of urticaria with other medications, last visit obtained tryptase that returned at an 8. As above, will repeat tryptase. Gege is also interested in urine studies due to additional history of hives and swelling, orders printed as she would like to go to [facility]? 4. H ypertrophy of nasal turbinates Notes: Gege presents with upper airway symptoms concerning for uncontrolled atopic disease. She has two dogs in her home. She has trialed Zyrtec in the past without benefit. - Obtained ImmunoCaps that returned negative, total IgE 28. Gege is considering additional testing, plan to discuss further after most recent lab values return 5. C hronic rhinitis Notes: See plan above 6. S hortness of breath Continue Advair HFA Aerosol, 230-21 MCG/ACT, 2 puffs, Inhalation, Twice a day; C ontinue Albuterol Sulfate HFA Aerosol Solution, 108 (90 [...] office as Gege prefers to go to [facility]. Will obtain full PFT with [facility] device in the meantime, TE created. - Continue Advair as prescribed by her PCP. She is aware to rinse her mouth after use. - Gege is to use her rescue inhaler as-needed. Needs AAP next visit. - Follow-up in 4 weeks for further evaluation 7. T oxic effect of venom of bees, accidental (unintentional), subsequent encounter Continue EPINEPHrine Solution Auto-injector, 0.3 MG/0.3ML, as directed Injection as needed, 30 days, 1, Refills 0. [...] length last visit. - Follow-up as above 8. R sejal [...] If Gege pursues immunotherapy, discuss this further 11. E levated blood-pressure reading, without diagnosis of hypertension Notes: BP elevated today without symptoms of urgency or emergency. Continue serial checks and follow-up with PCP * Procedures: T pedro (Provider Encounter): Time Attestation T his follow-up encounter took more than: m ore than 30 minutes (71239) T asks performed during this encounter include: t aking a history, reviewing the patient's review of systems, reviewing laboratory results, counseling the patient on their diagnoses and chronic management, discussed risks, benefits and alternatives to care, documenting in the EHR * Procedure Codes: 9 6160 PT-FOCUSED HLTH RISK [id number] DOC MEDS VERIFIED W/PT OR RE * Preventive Medicine: Counseling: D iet a [...] counseling * Follow Up: 4 Weeks (Reason: Laboratory Review) * Billing Information: * Visit Code: 57956 Office Visit, Est Pt., Level 4. Modifiers: 25 * Procedure Codes: 46732 PT-FOCUSED HLTH RISK ASSMT. G8427 DOC MEDS VERIFIED W/PT OR RE. * L MODEL BUILDER Sign off status: Completed true * Provider: VALERIE Almonte Date: 0 10/06/2024 Generated for Neal gonzalez/Randall/Valitting on: 0 10/31/2024 10:24 PM METAL MODEL BUILDER History and Physical Notes * HPI (History [...] left eye. She was seen by her enrober tender, who recommended stopping Maxitrol and started her on a prednisolone eye drop, she was also using Refresh ocular lubricant. She was, once again, seen by her enrober tender who started a different prednisolone eye drop. Symptoms persisted and she reports the swelling worsened, due to this she was seen at [facility] where she was given steroids and antihistamines, also sent home on prednisone and Benadryl. She reports she continued to use the second prednisolone drop she was prescribed. Several days later she was seen once again by her enrober tender, who stopped the prednisolone ocular drop and [...] nebivolol. She lives with her son and [id number]. Today, she reports no fevers, chills, night [...]
--- OUTSIDE RECORDS SUMMARY | 2024-10-31 22:24 | XMS_ITS | Referral Summary ---
Author Organization [facility] Address [address] [place] [address] Care Team Providers Care Van Owner Operator Name Role Phone Boris Mcnair DO Primary Care Provider [phone] Source Comments [facility],non-owned Affiliates and Associated Physician Practices is amultiple site organization consisting of ambulatory clinics and hospital sitesin [place], [place], [place] and [place]. This disclosure is being madepursuant to the Care Everywhere program and may not contain all information available regarding this patient. Last updated 18.[facility] Allergies Active Allergy Reactions Criticality Noted [...] MG tablet 10/09/2018 Active Cholecalciferol (VITAMIN D3) 30985 units capsule Active Active Problems Problem Noted [...] 85 04/02/2019 10:49 AM CDT Temperature 36.9 C (98.5 F) 04/02/2019 10:49 AM CDT Respiratory Rate 20 04/02/2019 10:49 AM CDT [...] 7 - 26 mg/dL 02/07/2018 1:22 PM [facility] Creatinine 1.0 0.6 - 1.2 mg/dL 02/07/2018 1:22 PM [facility] Sodium 136 136 - 145 mmol/L 02/07/2018 1:22 PM [facility] Potassium 3.6 3.5 - 4.5 mmol/L 02/07/2018 1:22 PM [facility] Chloride 101 98 - 107 mmol/L 02/07/2018 1:22 PM [facility] CO2 25 22 - 29 mmol/L 02/07/2018 1:22 PM [facility] Glucose 93 70 - 115 mg/dL 02/07/2018 1:22 PM [facility] Calcium 9.9 8.4 - 10.2 mg/dL 02/07/2018 1:22 PM [facility] Protein Total 7.6 6.0 - 8.3 g/dL 02/07/2018 1:22 PM [facility] Albumin 3.5 3.4 - 5.0 g/dL 02/07/2018 1:22 PM [facility] Bilirubin Total 0.7 0.2 - 1.2 mg/dL 02/07/2018 1:22 PM [facility] Alkaline Phosphatase 109 40 - 150 Units/L 02/07/2018 1:22 PM [facility] ALT 22 0 - 55 Units/L 02/07/2018 1:22 PM [facility] AST 23 5 - 34 Units/L 02/07/2018 1:22 PM [facility] Anion Gap 14 8 - 18 02/07/2018 1:22 PM CDT [facility] BUN/Creatinine Ratio 8 7 - 23 02/07/2018 1:22 PM CDT [facility] Osmolality Calculated 280 270 - 300 mOsm/kg 02/07/2018 1:22 PM [facility] Albumin/Globulin Ratio 0.9(L) 1.1 - 2.3 02/07/2018 1:22 PM T [facility] eGFR 57(L) >60 mL/min/1.7 3 m2 02/07/2018 1:22 PM T [facility] Blood BLOOD SPECIMEN / Unknown Lab Venipuncture / Unknown 02/07/2018 12:50 PM CDT 02/07/2018 12:55 PM CDT Ester Barajas DO LAB - CHEMISTRY ORD ERABLES Performing Organization Address [facility]/State/[facility] Co de Phone Number [facility] [address] [phone] from Last 3 Months or Most Recently Relevant to Health Maintenance Insurance Payer Benefit Plan / Group Subscriber ID Effective Dates Phone Address Type [facility] MANAGED MEDICARE ADV [facility] MEDICARE ADV [id number] Effective for all dates [address] [address] [place] [address] Medicare-Ma naged Care MEDICA[place] [facility] [facility] [id number] Effective for all dates [address] [facility] [address] [place] [address] Medicaid SELF PAY NO INSURANCE SELF PAY NO INSURANCE Effective for all dates [place], [place] Self Pay [facility] MANAGED MEDICARE ADV [facility] STATE RETIREES MEDICARE ADV [id number] 09/17/2024-Pres ent [address] [address] [place] [address] Medicare-[facility] Effective for all dates [address] [place] [address] Medicaid U[employer] MANAGED MEDICARE ADV [facility] STATE RETIREES MEDICARE ADV [id number] 09/17/2024-Pres ent [address] [address] [place] [address] Medicare-Ma naged Care MEDICAID [facility]END[place] [facility] MEDICAID [place] [facility] Effective for all dates [address] [place] [address] Medicaid UHC MANAGED MEDICARE ADV [facility] STATE RETIREES MEDICARE ADV [id number] 09/17/2024-Pres ent [address] [address] [place] [address] Medicare-Ma naged Care MEDICAID [place] [facility] MEDICAID [place] [facility] Effective for all dates [address] [place] [address] Medicaid UHC MANAGED MEDICARE ADV [facility] STATE RETIREES MEDICARE ADV [id number] 09/17/2024-Pres ent [address] [address] [place] [address] Medicare-Ma naged Care MEDICARE WPS MEDICARE PART B [id number] 04/16/2013-Pres ent [address] [address] [place] [address] Medicare MEDICAID - OUT OF STATE MEDICAID - [facility] [id number] 03/24/2022-Pres ent [address] [address] [place] [address] Medicaid MEDICARE MEDICARE PART A AND B [id number] 04/16/2013-Pres ent [address] [place] [address] Medicare Advance Directives * Full Code (Latest Code Status on File) Date Activated Date Inactivated Comments 02/15/2018 8:10 AM 02/15/2018 12:04 PM * Full Code Date Activated Date Inactivated Comments 02/14/2018 7:57 AM 02/14/2018 6:16 PM Care Teams Van Owner Operator Relationship Specialty Start Date End Date Boris Mcnair DO [address] [place] [address] PCP - General 04/07/19
--- OUTSIDE RECORDS SUMMARY | 2024-10-31 22:24 | XMS_ITS | Patient Health Record ---
Author Organization [facility] Address [address] [place] [address] Care Team Providers Care Gallery Manager Name Role Phone Eris Vu Primary Care Provider Breann Zuniga Unavailable [phone] Franky Gray Unavailable [phone] Allergies Allergen (clinical drug ingredient) Drug/Non Drug [...] ection as needed for 30 days Active Nystatin 253510 UNIT/GM 1 application Externally Twice a day Active EPINEPHrine 0.3 MG/0.3ML as directed Inj ection as directed for 30 days Not-Taki ng Nebivolol HCl 5 MG 1 tablet Orally Once a day Active Pantoprazole Sodium 20 MG 1 tablet 1/2 t o 1 hour before morning meal Orally Once a day Active Ondansetron 4 MG 1 tablet on the tong ue and allow to dissolve Orally Once a day Active Lactobacillus - as directed Orally Not-Taking Rivaroxaban 20 MG 1 tablet with food Orally Once a day Active Advair HFA 230-21 MCG/ACT 2 puffs Inhala tion Twice a day Active Fluticasone Propionate 50 MCG/ACT 1 spray in each nostril Nasally Twice a day Active Albuterol Sulfate HFA 108 (90 Base) MCG/ACT 2 puffs as needed Inhalation every 4 hrs for 30 days Active Ferrous Sulfate 325 (65 Fe) MG 1 tablet Orally Three times a Week Active AeroChamber MV - as directed for 30 days Any adult spacer Active Levothyroxine Sodium 88 MCG 1 tablet in the morning on an empty stomach Orally Once a day Active Folic Acid 1 MG 1 tablet Orally Once a day Active Social History Tobacco Use: Social History Observation Description Date Details (start date - stop date) Current Smoker NA - NA Tobacco Control (Standard) Question Answer Notes Tobacco use: Current smoker Problems Problem Type SNOMED Code ICD Code Onset Dates Problem Status W/U Status Risk Notes Problem Allergy to penicillin (98442754) Allergy status to penicillin (Z88.0) Active confirmed Problem Eruption of skin (029638265) Rash and other nonspecific skin eruption (R21) Active confirmed Problem Carotid artery syndrome hemispheric (738613746) Carotid artery syndrome (hemispheric) (G45.1) Active confirmed Problem Heart disease (72664313) Other heart disorders in diseases classified elsewhere (I52) Active confirmed Problem Chronic rhinitis (48019766) Chronic rhinitis (J31.0) Active confirmed Problem Hypertrophy of nasal turbinates (15452139) Hypertrophy of nasal turbinates (J34.3) Active confirmed Problem Urticaria (795272176) Other urticaria (L50.8) Active confirmed Problem Fibromyalgia (128142984) Fibromyalgia (M79.7) Active confirmed Problem Swelling of head (078245057) Localized swelling, mass and lump, head (R22.0) Active confirmed Problem Toxic effect of venom (56975666) Toxic effect of venom of bees, accidental (unintentional), initial encounter (T63.441A) Active confirmed Problem Shortness of breath (393081891) Shortness of breath (R06.02) Active confirmed Problem Drug allergy (780660614) Allergy status to unspecified drugs, medicaments and biological substances (Z88.9) Active confirmed Vital Signs Blood pressure diastolic 80 mm Hg 10/06/2024 Oximetry 98 % 10/06/2024 Height 64 in 10/06/2024 Blood pressure systolic 133 mm Hg 10/06/2024 Weight 181.6 lbs 10/06/2024 BMI 31.17 kg/m2 10/06/2024 Encounters Encounter Location Date Provider Diagnosis [facility] [address] [place] [address] 08/10/2024 Breann Chavira Localized swelling, mass and [...] heart disorders in diseases classified elsewhere I52 [facility] [address] [place] [address] 10/06/2024 Breann Chavira Localized swelling, mass and [...] blood-pressure reading, without diagnosis of hypertension R03.0 [facility] [address] [place] [address] 09/29/2024 Breann Chavira Assessments Encounter Date Diagnosis (ICD Code) Assessment [...] plans below. - Will request records from [facility], as well as from her first assistant manager. - Follow-up in 4 weeks for laboratory review 08/10/2024 Allergy status to unspecified drugs, medicaments and biological substances (ICD-10 - Z88.9) See plan above 10/06/2024 Localized swelling, mass and lump, head [...] as she would like to go to [facility]. - Will request records from [facility], as well as from her first assistant manager. Still awaiting. - Follow-up in 4 weeks [...] as she would like to go to [facility] 08/10/2024 Other urticaria (ICD-10 - L50.8) Also [...] Consider returning for SPT pending laboratory review 10/06/2024 Hypertrophy of nasal turbinates (ICD-10 - [...] (ICD-10 - J31.0) See plan above 08/10/2024 Chronic rhinitis (ICD-10 - J31.0) See [...] for spirometry and further evaluation and management 10/06/2024 Shortness of breath (ICD-10 - R06.02) [...] office as Gege prefers to go to [facility]. Will obtain full PFT with [facility] [...] length last visit. - Follow-up as above 08/10/2024 Toxic effect of venom of bees, accidental (unintentional), initial encounter (ICD-10 - T63.441A) Gege reports [...] patch testing, discuss further next visit 10/06/2024 Rash and other nonspecific skin eruption [...] Gege is considering at this time 08/10/2024 Allergy status to penicillin (ICD-10 - Z88.0) Gege reports passing out while taking penicillin in the past, further details are not clear. - Consider returning for penicillin testing, Gege is considering at this time 08/10/2024 Other heart disorders in diseases classified elsewhere (ICD-10 - I52) Gege reports history of PVCs, currently prescribed a beta-jerry. If Gege pursues immunotherapy, discuss this further 10/06/2024 Other heart disorders in diseases classified elsewhere (ICD-10 - I52) Gege reports history of PVCs, currently prescribed a beta-jerry. If Gege pursues immunotherapy, discuss this further 10/06/2024 Elevated blood-pressure reading, without diagnosis of hypertension (ICD-10 - R03.0) BP elevated today without symptoms of urgency or emergency. Continue serial checks and follow-up with PCP 09/07/2024 Other 08/10/2024 Other 10/06/2024 Other Plan Of Treatment Pending Test Test Name Order Date RESPIRATORY ALLERGY PROFILE REGION VIII: [place], [place] 08/10/2024 METANEPHRINES, FRACT. LC/MS/MS, 24 HR UR INE 10/06/2024 METANEPHRINES, FRACT, FREE, LC/MS/MS, PL ASMA 10/06/2024 TRYPTASE 08/10/2024 TRYPTASE 10/06/2024 COMPLEMENT COMPONENT C4C 08/10/2024 VMA, 24-HOUR URINE 10/06/2024 HOMOVANILLIC ACID, 24-HR URINE 5-HIAA, 24-HOUR URINE 10/06/2024 HISTAMINE, 24 HOUR URINE 10/06/2024 LEUKOTRIENE E4, URINE 10/06/2024 N METHYLHISTAMINE, 24 HOUR, URINE 2024 Insurance Providers Payer Name Payer Address Payer Phone Subscriber Number Group Number Insured Name Patient Relationship to Insured Coverage Start Date Coverage End Date [employer] [address] [address] [place] [address] [id number] Gege Vidal Self - patient is the insured Medical (General) History Medical History History ICD [...]
--- OUTSIDE RECORDS SUMMARY | 2024-10-31 22:24 | XMS_ITS | Continuity of Care Document ---
Author Organization [facility] Address [address] [place] [address] Phone Care Team Providers Care Supervisor Incising Name Role Phone Unavailable Unavailable Unavailable Advance Directives Directive Yes / No Effective Date File Name No Information Encounters Encounter Description Practice Location Reason(s) For Visit Diagnoses Date Provider Providers Copied on Encounter [facility], [address], [place], [place], [id number], [place] tel:[phone] [facility] No Information Mar-1 6-200 0 No Information [...]
--- OUTSIDE RECORDS SUMMARY | 2024-10-31 22:24 | XMS_ITS | Clinical Summary ---
Author Organization [facility] [employer] Address [address] [place] [address] Care Team Providers Care Brass Molder Helper Name Role Phone Boris Mcnair DO Primary Care Provider [phone] Source Comments [facility],non-owned Affiliates and Associated Physician Practices is amultiple site organization consisting of ambulatory clinics and hospital sitesin [place], [place], [place] and [place]. This disclosure is being madepursuant to the Care Everywhere program and may not contain all information available regarding this patient. Last updated 18.[facility] Allergies Active Allergy Reactions Criticality [...] MG tablet 10/09/2018 Active Cholecalciferol (VITAMIN D3) 73261 units capsule Active Active Problems Problem Noted [...] CA SCREENING 1960 MAMMOGRAM 1960 MEDICARE AWV 12 MONTHS 1960 PAP SMEAR 1960 HIV [...] (#1) 2024 DEPRESSION SCREENING 09/16/2024 MEDICARE AWV CALENDAR YEAR 2024 Respiratory Syncytial Virus (RSV) [...] - 26 mg/dL 02/07/2018 1:22 PM CDT [facility] Creatinine 1.0 0.6 - 1.2 mg/dL 02/07/2018 1:22 PM [facility] Sodium 136 136 - 145 mmol/L 02/07/2018 1:22 PM [facility] Potassium 3.6 3.5 - 4.5 mmol/L 02/07/2018 1:22 PM [facility] Chloride 101 98 - 107 [...] 02/07/2018 12:50 PM CDT 02/07/2018 12:55 PM T Ester Barajas DO LAB - CHEMISTRY ORD ERABLES [facility] [address] [phone] from Last 3 Months or Most Recently Relevant to Health Maintenance Insurance Payer Benefit Plan / Group Subscriber ID Effective Dates Phone Address Type UHC MANAGED MEDICARE ADV C MEDICARE ADV [id number] Effective for all dates [address] [address] [place] [address] Medicare-Ma naged Care MEDICAID [facility] MEDICAID [facility] [id number] Effective for all dates [address] [place] [address] Medicaid SELF PAY NO INSURANCE SELF PAY NO INSURANCE Effective for all dates [place], [place] Self Pay [facility] MANAGED MEDICARE ADV [facility] STATE RETIREES MEDICARE ADV [id number] 09/17/2024-Pres ent [address] [address] [place] [address] Medicare-Ma naged Care MEDICAID [facility] MEDICAID [facility] Effective for all dates [address] [place] [address] Medicaid UHC MANAGED MEDICARE ADV [facility] STATE RETIREES MEDICARE ADV [id number] 09/17/2024-Pres ent [address] [address] [place] [address] Medicare-Ma naged Care MEDICAID [facility] MEDICAID [facility] Effective for all dates [address] [place] [address] Medicaid UHC MANAGED MEDICARE ADV [facility] STATE RETIREES MEDICARE ADV [id number] 09/17/2024-Pres ent [address] [address] [place] [address] Medicare-Ma naged Care MEDICAID [facility] MEDICAID [facility] Effective for all dates [address] [place] [address] Medicaid UHC MANAGED MEDICARE ADV [facility] STATE RETIREES MEDICARE ADV [id number] 09/17/2024-Pres ent [address] [address] [place] [address] Medicare-Ma naged Care MEDICARE WPS MEDICARE PART B [id number] 04/16/2013-Pres ent [address] [address] [place] [address] Medicare MEDICAID - OUT OF [facility] [id number] 03/24/2022-Pres ent [address] [address] [place] [address] Medicaid MEDICARE MEDICARE PART A AND B [id number] 04/16/2013-Pres ent [address] [place] [address] Medicare Advance Directives * Full Code (Latest Code Status on File) Date Activated Date Inactivated Comments 02/15/2018 8:10 AM 02/15/2018 12:04 PM * Full Code Date Activated Date Inactivated Comments 02/14/2018 7:57 AM 02/14/2018 6:16 PM Care Teams Brass Molder Helper Relationship Specialty Start Date End Date Boris Mcnair DO [address] [place], [place] [id number] PCP - General 04/07/19
--- OUTSIDE RECORDS SUMMARY | 2024-10-31 22:24 | XMS_ITS | Referral Summary ---
Author Organization [facility] Address [address] [place] [address] Care Team Providers Care Associate Professor Of Biology Name Role Phone Dominic Fernando MD Primary Care Provider [phone] Allergies Active Allergy Reactions Criticality Noted Date [...] mcg tablet Take 112 mcg by mouth baby stroller rental clerk before breakfast. 07/21/2018 Active XARELTO 20 mg [...] (09/24/2018): Added automatically from request for surgery [id number] Social History Tobacco Use Types Packs/Day Years Used Date Smoking Tobacco: Every Day Cigarettes Smokeless Tobacco: Current Comments:quitting now, 1 pac k last 2-3 days Alcohol Use Standard Drinks/Week Comments No 0 (1 standard drink = 0.6 oz pur e alcohol) Comments No Sex and Gender Information Value Date Recorded Sex Assigned at Not on file Legal Sex Female 11:26 PM PATROL SUPERVISOR Gender Identity Not on file Sexual Orientation Not on file Last Filed Vital Signs Vital Sign Reading Time Taken Comments Blood Pressure 98/64 10/02/2019 8:21 AM PATROL SUPERVISOR Pulse 55 10/02/2019 8:21 AM PATROL SUPERVISOR Temperature 37.1 C (98.8 F) 11/24/2018 12:06 PM CDT Respiratory Rate 16 11/24/2018 12:06 PM CDT Oxygen Saturation 98% 11/24/2018 12:06 PM CDT Inhaled Oxygen Concentration - - Weight 80.4 kg (177 lb 3.2 oz) 10/02/2019 8:21 A M PATROL SUPERVISOR Height 165.1 cm (5' 5 ) 10/02/2019 8:21 AM PATROL SUPERVISOR Body Mass Index 29.49 10/02/2019 8:21 AM PATROL SUPERVISOR Plan of Treatment Not on file Medical Devices Implanted Type Area Loan Servicing Officer Device Identifier Shelf Expiration Date Model / Serial / Lot [employer]hew[employer]Or tho [id number] Legion 9mm Dished Knee 3-4 Insert Tibial Xlpe - [id number] Implanted:Qty: 1 on 11/11/2018 by Kemal Wright MD at [facility] Right: Knee [employer]Or [employer] 08/11/2028 [id number] / / [id number] [employer]Or tho [id number] 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 Taper Knee Right 4 Baseplate Tibial Titanium - [id number] Implanted:Qty: 1 on 11/11/2018 by Kemal Wright MD at [facility] Right: Knee [employer]Or tho 07/18/2028 [id number] / / [id number] Size 4 Right Cruciate Retaining Legion Oxinium Femoral Componenet Implanted:Qty: 1 on 11/11/2018 by Kemal Wright MD at [facility] Right: Knee [employer] [id number] 01/06/2028 [id number] / / [id number] [employer] [id number] Palacos R+G High Viscosity Cement Bone Gentamicin Arthroplasty - [id number] Implanted:Qty: 1 on 11/11/2018 by Kemal Wright MD at [facility] Right: Knee [employer] 04/15/2021 [id number] / / [id number] Insurance MEDICARE ID[place] MEDICARE [place] Advance Directives For more information, please contact: [phone] * Full Code (Latest Code Status on File) Date Activated Date Inactivated Comments 11/14/2018 1:26 PM 11/15/2018 7:15 PM * Full Code Date Activated Date Inactivated Comments 11/13/2018 10:00 AM 11/14/2018 1:16 PM per patient request * Full Code Date Activated Date Inactivated Comments 11/11/2018 7:40 PM 11/12/2018 8:26 PM Care Teams Associate Professor Of Biology Relationship Specialty Start Date End Date Dominic Fernando MD [address] [facility] [address] [place] [address] PCP - General 08/13/17
--- OUTSIDE RECORDS SUMMARY | 2024-10-31 22:24 | XMS_ITS | Patient Health Record ---
Author Organization [employer] [facility] Address [address], [place] [address] Care Team Providers Care Customer Services Supervisor Name Role Phone Tanner Reid MD Primary Care Provider [phone] Tanner Reid Unavailable Unavailable ALLERGIES Allergen (clinical [...] finger, initial encounter (S63.631A) 023 Active confirmed [id number] Problem Fall on same level from slipping, tripping and stumbling without subsequent striking against object, initial encounter (W01.0XXA) 023 Active confirmed [id number] Problem Encounter for other specified surgical aftercare (Z48.89) Active confirmed Postoperative c are ([id number]) PLAN OF TREATMENT No Information Insurance Providers Payer Name Payer Address Payer Phone Subscriber Number Group Number Insured Name Patient Relationship to Insured Coverage Start Date Coverage End Date UHC Medicare Advantage PPO [address] [address] [place] [address] [id number] Gege Vidal Self - patient is the insured MEDICAL (GENERAL) HISTORY Medical History History ICD Code Hypothyroidism Surgical History Surgery Date(Month/Year) right knee arthroscopy tubal ligation tonsillectomy hysterectomy neck right knee arthroscopy shoulder arthroscopy, right x2
--- OUTSIDE RECORDS SUMMARY | 2024-10-31 22:24 | XMS_ITS | Clinical Summary ---
Author Organization [facility] Address [address] [place] [address] Care Team Providers Care Cascade Operator Name Role Phone Eris Vu MD Primary Care Provider [phone] Allergies Active Allergy Reactions Criticality Noted Date Comments Adhesive Tape-Silicones Other (See Comments) Medium 08/19/2014 Blisters Codeine Shortness of Breath/Wheezing High 08/19/2014 Hujtdpyer-M-Tgymctq-Se jun-Brom Other (See Comments) Low 08/19/2014 Alcohol- [...] Type Department Care Team Description 10/09/2024 Abstract [facility] [place] [address] [place] [address] Chris Owens MD 10/09/2024 Telephone [facility] [place] [address] [place] [address] Chris Owens MD Surgical Clearance 10/08/2024 External Device Data STL ABSTRACTION Provider, Abstract 09/29/2024 External Device Data STL ABSTRACTION Provider, Abstract 08/25/2024 Orders Only [facility] [place] [address] [place] [address] Chris Owens MD 08/20/2024 Refill [facility] [place] [address] [place] [address] Chris Owens MD from Last 3 Months Family History Medical [...] on file Legal Sex Female 12:44 PM CAR PILOT Gender Identity Not on file Sexual Orientation Not on file Last Filed Vital Signs Vital Sign Reading Time Taken Comments Blood Pressure 137/78 06/04/2024 2:13 PM CDT Pulse 99 06/04/2024 2:13 PM CDT Temperature 36.7 C (98 F) 06/04/2024 2:13 PM CDT Respiratory Rate 18 [...] AM CDT Office Visit [facility] [place] [address] [facility] [address] [place] [address] Chris Owens MD [address] [facility] [address] [place] [address] Health Maintenance Due Date Last [...] CHEST WO CONTRAST Routine 08/25/2024 12:41 PM CAR PILOT MAMMO BILAT DIAGNOSTIC Routine 02/17/2024 1:[address] LUNG SCREENING (LDCT BASELINE OR ANNUAL) Routine 07/15/2019 Encounter for screening for lung cancer from Last 3 Months or Most Recently Relevant to Health Maintenance Results * CT CHEST WO CONTRAST (08/25/2024 12:41 PM CAR PILOT) Anatomical Region Laterality Modality Chest Other us [...] Most Recently Relevant to Health Maintenance Insurance [facility] [id number] Care Teams Cascade Operator Relationship Specialty Start Date End Date Eris Vu MD PCP - General Family Practice 02/21/23
--- OUTSIDE RECORDS SUMMARY | 2024-10-31 22:24 | XMS_ITS ---
Author Organization [facility] Address [address] [place] [address] Care Team Providers Care Watch Engine Operator Name Role Phone Eris Vu Primary Care Provider Breann Zuniga [phone] REASON FOR VISIT Message Encounters Encounter Location Date Provider Diagnosis [facility] [address] [place] [address] 09/29/2024 Breann Chavira Plan Of Treatment No Information Progress Notes * Gege VIDALDOB:1960 (64 yo F)Acc No.[id number]:09/29/2024 Patient: Gege MADERA :1960 A ge:64 Y S ex:Female Address:[address] [place], [address] * true * Date: Generated for Neal gonzalez/Randall/eTransmitting on: 0 10/31/2024 10:23 PM INDUSTRIAL HIRE SALES ASSISTANT
--- OUTSIDE RECORDS SUMMARY | 2024-10-31 22:24 | XMS_ITS | Clinical Summary ---
Author Organization [facility] Address [address] [place] [address] Care Team Providers Care Lab Aid Name Role Phone Dominic Fernando MD Primary Care Provider [phone] Allergies Active Allergy Reactions Criticality Noted Date [...] mcg tablet Take 112 mcg by mouth rheostat assembler before breakfast. 07/21/2018 Active XARELTO 20 mg [...] (09/24/2018): Added automatically from request for surgery [id number] Surgical History Surgery Date Site/Laterality Comments CHOLECYSTECTOMY [...] on file Legal Sex Female 11:26 PM DIAMOND DIE POLISHER Gender Identity Not on file Sexual Orientation Not on file Obstetrics History Last Filed Vital Signs Vital Sign Reading Time Taken Comments Blood Pressure 98/64 10/02/2019 8:21 AM DIAMOND DIE POLISHER Pulse 55 10/02/2019 8:21 AM DIAMOND DIE POLISHER Temperature 37.1 C (98.8 F) 11/24/2018 12:06 PM CDT Respiratory Rate 16 11/24/2018 12:06 PM CDT Oxygen Saturation 98% 11/24/2018 12:06 PM CDT Inhaled Oxygen Concentration - - Weight 80.4 kg (177 lb 3.2 oz) 10/02/2019 8:21 A M DIAMOND DIE POLISHER Height 165.1 cm (5' 5 ) 10/02/2019 8:21 AM DIAMOND DIE POLISHER Body Mass Index 29.49 10/02/2019 8:21 AM DIAMOND DIE POLISHER Plan of Treatment Not on file Medical Devices Implanted Type Area Childbirth And Infant Care Teacher Device Identifier Shelf Expiration Date Model / Serial / Lot [employer] [id number] Legion 9mm Dished Knee 3-4 Insert Tibial Xlpe - [id number] Implanted:Qty: 1 on 11/11/2018 by Kemal Wright MD at [facility] Right: Knee [employer] 08/11/2028 [id number] / / [id number] [employer] [id number] 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 Taper Knee Right 4 Baseplate Tibial Titanium - [id number] Implanted:Qty: 1 on 11/11/2018 by Kemal Wright MD at [facility] Right: Knee [employer] 07/18/2028 [id number] / / [id number] Size 4 Right Cruciate Retaining Legion Oxinium Femoral Componenet Implanted:Qty: 1 on 11/11/2018 by Kemal Wright MD at [facility] Right: Knee [employer] [id number] 01/06/2028 [id number] / / [id number] [employer] [id number] Palacos R+G High Viscosity Cement Bone Gentamicin Arthroplasty - [id number] Implanted:Qty: 1 on 11/11/2018 by Kemal Wright MD at [facility] Right: Knee [employer] 04/15/2021 [id number] / / [id number] Insurance MEDICARE [facility] MEDICARE [facility] Advance Directives For more information, please contact: [phone] * Full Code (Latest Code Status on File) Date Activated Date Inactivated Comments 11/14/2018 1:26 PM 11/15/2018 7:15 PM * Full Code Date Activated Date Inactivated Comments 11/13/2018 10:00 AM 11/14/2018 1:16 PM per patient request * Full Code Date Activated Date Inactivated Comments 11/11/2018 7:40 PM 11/12/2018 8:26 PM Care Teams Lab Aid Relationship Specialty Start Date End Date Dominic Fernando MD [address] [facility] [address] [facility] [address] [place] [id number] PCP - General 08/13/17
--- OUTSIDE RECORDS SUMMARY | 2024-10-31 22:24 | XMS_ITS | Patient Health Summary ---
Author Organization [facility] Address [address] [place] [address] Care Team Providers Care Grain Elevator Worker Name Role Phone Boris Mcnair Primary Care Provider [phone] Note from [facility],non-owned Affiliates and Associated Physician Practices is amultiple site organization consisting of ambulatory clinics and hospital sitesin [place], [place], [place] and [place]. This disclosure is being madepursuant to the Care Everywhere program and may not contain all information available regarding this patient. Last updated 18.[facility] Allergies * Adhesive Sensitivity(Other) -Medium Criticality [...] MG tablet(Started 10/09/2018) * Cholecalciferol (VITAMIN D3) 30911 units capsule Active Problems Problem Noted Date [...] Deshaun Boland MD - 04/02/2019 Heather James INDUSTRIAL HYGENIST-FIRST GRADE TEACHER VASCULAR LAB OR DERABLES * VAS CAROTID DUPLEX BILATERAL (04/02/2019 9:18 AM CDT) Only the most recent of2 resultswithin the time period is included. Anatomical Region Laterality Modality Intravascular Ul trasound 04/02/2019 8:18 AM CDT Narrative Procedure Note Deshaun Boland MD - 04/02/2019 Too Lara MD VASCULAR LAB ORDERAB LES * CARDIAC EKG ORDER (08/04/2018 12:01 PM FUEL SYSTEM MAINTENANCE WORKER) Only the most recent of2 resultswithin the time period is included. Narrative 08/04/2018 12:01 PM FUEL SYSTEM MAINTENANCE WORKER Ordered by an unspecified provider. Scanned Document CARDIAC SERVICES ORD ERABLES * ACT - POCT (IP) [facility] (02/14/2018 12:55 PM CDT) Only the most recent of2 resultswithin the time period is included. Activated Clotting Time 255 sec [facility] POCT TESTING Blood BLOOD SPECIMEN / Unknown 02/14/2018 12:55 PM CDT Kevin Bower MD LAB - POINT OF CARE ORDERABLES [facility] POCT TESTING [address] [phone] * PREPARE (CROSSMATCH) RBC UNIT(S), 2 Units (02/14/2018 9:11 AM CDT) Unit Description LR Red Cells [facility] BLOOD BANK LAB Unit ABO O [facility] BLOOD BANK LAB Unit Rh POS [facility] BLOOD BANK LAB Product Code RL1 [facility] BLO OD BANK LAB Unit Donor # [id number] [facility] BLOOD BANK LAB Unit Status released [facility] BLOO D BANK LAB Product Number [id number] [facility] B LOOD BANK LAB Blood Type Barcode 5100 [facility] BLOOD BANK LAB Unit Description LR Red Cells [facility] BLOOD [facility]ANK LAB Unit ABO O [facility] BLOOD [facility]ANK LAB Unit Rh POS [facility] BLOOD BANK LAB Product Code RL3 [facility] BLO OD BANK LAB Unit Donor # [id number] [facility] BLOOD BANK LAB Unit Status released [facility] BLOO D BANK LAB Product Number [id number] [facility] B LOOD BANK LAB Blood Type Barcode 5100 [facility] BLOOD BANK LAB Blood Bank BLOOD SPECIMEN / Unknown 02/14/2018 9:11 AM CDT 02/14/2018 9:11 AM CDT Ester Barajas DO LAB - BLOOD BANK OR DERABLES Performing Organization Address [facility]/ZIP Co de Phone Number [facility] BLOOD BANK LAB [address] [place] [address] * TYPE + SCREEN PANEL (02/14/2018 9:05 AM CDT) Antibody Screen NEG 8 9:58 AM CDT [facility] BLOOD BANK LAB ABO Rh O POS 02/14/2018 9:58 AM CDT [facility] BLOOD BANK LAB Blood Bank BLOOD SPECIMEN / Unknown Venipuncture / Unknown 02/14/2018 9:05 AM CDT 02/14/2018 9:10 AM CDT Paulina Andujar INDUSTRIAL HYGENIST-RETAIL LOAN ORIGINATOR LAB - BLOOD BA NK ORDERABLES Performing Organization Address [facility] Co de Phone Number [facility] BLOOD BANK LAB [address] [place] [address] * (ABNORMAL) PTT [facility] (02/07/2018 12:50 PM CDT) APTT 42.0(H) 23.0 - 38.4 Seconds 02/07/2018 1:16 PM CDT [facility] Comment: Suggested therapeutic range for full dose I.V. heparin therapy for venous thromboembolism is 66.0-91.0 seconds. Blood BLOOD SPECIMEN / Unknown Lab Venipuncture / Unknown 02/07/2018 12:50 PM CDT 02/07/2018 12:55 PM CDT Ester Barajas DO LAB - COAGULATION O RDERABLES Performing Organization Address City/[facility]/ZIP Co de Phone Number [facility] LABORATORY [address] [phone] * (ABNORMAL) PT-INR [facility] (02/07/2018 12:50 PM CDT) PT 19.0(H) 12.1 - 14.8 Seconds 02/07/2018 1:15 PM CDT [facility] INR 1.6 See Comment 02/07/2018 1:15 PM CDT [facility] Comment: Suggested therapeutic range for low-intensity coumadin therapy for venous thromboembolism prophylaxis is an INR of 2.0-3.0. For high risk patients (Mitral Valve Prosthesis, Atrial Fibrillation, history of TIA/stroke), suggested prophylactic therapeutic range is an INR of 2.5-3.5. Blood BLOOD SPECIMEN / Unknown Lab Venipuncture / Unknown 02/07/2018 12:50 PM CDT 02/07/2018 12:55 PM CDT Ester Barajas DO LAB - COAGULATION O RDERABLES [facility] [address] [phone] * CBC W AUTO DIFFERENTIAL (02/07/2018 12:50 PM CDT) WBC 8.0 3.5 - 10.5 10 3/uL 02/07/2018 1:[address] [facility] RBC 4.82 3.90 - 5.00 10 6/uL 02/07/2018 1:01 PM [facility] Hemoglobin 13.6 12.0 - 15.5 g/dL 02/07/2018 1:01 PM [facility] Hematocrit 40.6 35.0 - 45.0 % 02/07/2018 1:01 PM [facility] MCV 84.2 81.0 - 97.0 fL 02/07/2018 1:01 PM [facility] MCH 28.2 28.0 - 34.0 pg 02/07/2018 1:01 PM [facility] MCHC 33.5 32.0 - 36.0 g/dL 02/07/2018 1:01 PM [facility] Platelet Count 292 150 - 400 10 3/uL 02/07/2018 1:01 PM [facility] RDW-SD 39.7 36.0 - 50.0 fL 02/07/2018 1:01 PM [facility] RDW-CV 12.9 11.2 - 14.8 % 02/07/2018 1:01 PM [facility] MPV 10.3 9.3 - 12.8 fL 02/07/2018 1:01 PM [facility] Neutrophils % 64.9 35.0 - 70.0 % 02/07/2018 1:01 PM [facility] Lymphocytes % 25.9 19.7 - 55.1 % 02/07/2018 1:01 PM [facility] Monocytes % 6.3 3.0 - 15.0 % 02/07/2018 1:01 PM [facility] Eosinophils % 2.6 0.0 - 6.0 % 02/07/2018 1:01 PM [facility] Basophil % 0.3 0.0 - 1.5 % 02/07/2018 1:01 PM [facility] Neutrophils Absolute 5.2 1.6 - 7.0 10 3/uL 02/07/2018 1:01 PM [facility] Lymphocyte Absolute 2.1 0.8 - 2.9 10 3/uL 02/07/2018 1:01 PM [facility] Monocytes Absolute 0.50 0.14 - 0.66 10 3/uL 02/07/2018 1:01 PM [facility] Eosinophils Absolute 0.21 0.00 - 0.22 10 3/uL 02/07/2018 1:01 PM [facility] Basophils Absolute 0.02 0.00 - 0.06 10 3/uL 02/07/2018 1:01 PM [facility] Immature Granulocytes % 0.3 0.0 - 1.0 % 02/07/2018 1:01 PM [facility] Blood BLOOD SPECIMEN / Unknown Lab Venipuncture / Unknown 02/07/2018 12:50 PM CDT 02/07/2018 12:55 PM CDT Ester Barajas DO LAB - HEMATOLOGY OR DERABLES [place] [address] [phone] * (ABNORMAL) COMPREHENSIVE METABOLIC PANEL (02/07/2018 12:50 PM CDT) BUN 8 7 - 26 mg/dL 02/07/2018 1:22 PM [facility] Creatinine 1.0 0.6 - 1.2 mg/dL 02/07/2018 1:22 PM [facility] Sodium 136 136 - 145 mmol/L 02/07/2018 1:22 PM [facility] Potassium 3.6 3.5 - 4.5 mmol/L 02/07/2018 1:22 PM [facility] Chloride 101 98 - 107 mmol/L 02/07/2018 1:22 PM [facility] CO2 25 22 - 29 mmol/L 02/07/2018 1:22 PM [facility] Glucose 93 70 - 115 mg/dL 02/07/2018 1:22 PM [facility] Calcium 9.9 8.4 - 10.2 mg/dL 02/07/2018 1:22 PM [facility] Protein Total 7.6 6.0 - 8.3 g/dL 02/07/2018 1:22 PM [facility] Albumin 3.5 3.4 - 5.0 g/dL 02/07/2018 1:22 PM [facility] Bilirubin Total 0.7 0.2 - 1.2 mg/dL 02/07/2018 1:22 PM [facility] Alkaline Phosphatase 109 40 - 150 Units/L 02/07/2018 1:22 PM [facility] ALT 22 0 - 55 Units/L 02/07/2018 1:22 PM [facility] AST 23 5 - 34 Units/L 02/07/2018 1:22 PM [facility] Anion Gap 14 8 - 18 02/07/2018 1:22 PM [facility] BUN/Creatinine Ratio 8 7 - 23 02/07/2018 1:22 PM [facility] Osmolality Calculated 280 270 - 300 mOsm/kg 02/07/2018 1:22 PM [facility] Albumin/Globulin Ratio 0.9(L) 1.1 - 2.3 02/07/2018 1:22 PM [facility] eGFR 57(L) >60 mL/min/1.7 3 m2 02/07/2018 1:22 PM [facility] Blood BLOOD SPECIMEN / Unknown Lab Venipuncture / Unknown 02/07/2018 12:50 PM CDT 02/07/2018 12:55 PM CDT Ester K Karl DO LAB - CHEMISTRY ORD ERABLES Performing Organization Address City/[facility]/ZIP Co de Phone Number [facility] LABORATORY [facility] [address] [phone] * EKG 12-LEAD (02/07/2018 10:08 AM CDT) Ventricular Rate 57 BPM [facility] Atrial Rate 57 BPM [facility] MUSE P-R Interval 206 ms H MUSE QRS Duration ms 84 ms [facility] Q-T Interval ms 428 ms [facility] MUSE QTC Calculation (Bezet) 416 ms [facility] Calculated P [facility] 70 degrees [facility] Calculated R [facility] 23 degrees [facility] Calculated T [facility] 60 degrees [facility] Interpretation EKG Sinus bradycardia~Po or R wave progression in precordial leads~Otherwis e normal ECG~No previous ECGs available~Conf irmed by Ancelmo KISER, JEVON ([id number]), video tape editor AMOS MCCLENDON ([id number]) on 02/13/2018 1:47:34 PM [facility] MUSE 02/07/2018 10:0 8 AM CDT 02/13/2018 1:47 PM CDT Ester Haresh Barajas DO ECG ORDERABLES Performing Organization Address [facility] Co de Phone Number [facility] MUSE * XR LUMBAR SPINE 4+ VW (08/19/2014 3:54 AM FUEL SYSTEM MAINTENANCE WORKER) Anatomical Region Laterality Modality Spine Radiographic Yulisa ging 08/19/2014 7:39 AM FUEL SYSTEM MAINTENANCE WORKER Impressions 08/19/2014 8:06 AM FUEL SYSTEM MAINTENANCE WORKER Mild degenerative changes. Edited by Juanita Odonnell on 08/19/2014 7:51 AM Narrative 08/19/2014 8:06 AM FUEL SYSTEM MAINTENANCE WORKER LUMBAR SPINE 5 VIEWS INDICATION: Low back [...] SHOULDER 2+ VW RIGHT (08/19/2014 3:54 AM FUEL SYSTEM MAINTENANCE WORKER) Anatomical Region Laterality Modality Upper Extremity Radiographic Yulisa ging 08/19/2014 8:04 AM FUEL SYSTEM MAINTENANCE WORKER Impressions 08/19/2014 8:04 AM FUEL SYSTEM MAINTENANCE WORKER No fracture. Narrative 08/19/2014 8:04 AM FUEL SYSTEM MAINTENANCE WORKER Right shoulder 2 views unilateral Indication: Right [...] MD DIAGNOSTIC IMAGING O RDERABLES Care Teams Grain Elevator Worker Relationship Specialty Start Date End Date Boris Mcnair DO [address] [place] [address] PCP - General 04/07/19
[2024-10-31 22:30] VITALS: BP 144/78; PULSE 101; RESP 20; TEMP 36.8; O2SAT 97
[2024-10-31] MEDS: dexAMETHasone SOD PHOS INJ 10 MG/ML 1 ML VIAL IV PUSH (22:36)
[2024-10-31] MEDS: diphenhydrAMINE HCl INJ 50 MG/ML VIAL IV PUSH (22:39)
[2024-10-31] MEDS: FAMOTIDINE 20 MG/2 ML VIAL 40 MG IV PUSH (22:41)
[2024-10-31 22:51] VITALS: BP 131/76; PULSE 98; RESP 19; O2SAT 97
[2024-10-31 22:54] VITALS: O2SAT 97
--- OUTSIDE RECORDS SUMMARY | 2024-10-31 22:58 | XMS_ITS | Clinical Summary ---
Author Organization [facility] Address [address] [place] [address] Care Team Providers Care Alpine Guide Name Role Phone Eris Vu MD Primary Care Provider [phone] Allergies Active Allergy Reactions Criticality Noted Date [...] this topic Medical Devices Implanted Type Area Display Coordinator Device Identifier Shelf Expiration Date Model / Serial / Lot Tecnis 1-Piece Iol Implanted:Qty: 1 on 06/08/2024 by Jadon Vu MD at [facility] Left: Eye [employer] 10/27/2026 / [id number] / Insurance MEDICAID Care Teams Alpine Guide Relationship Specialty Start Date End Date Eris Vu MD [address] [place] [address] PCP - General FAMILY PRACTICE 06/05/24
--- OUTSIDE RECORDS SUMMARY | 2024-10-31 22:58 | XMS_ITS | Clinical Summary ---
Author Organization [facility] Address [address] [place] [address] Care Team Providers Care Bone Char Operator Name Role Phone Dominic Fernando MD Primary Care Provider [phone] Allergies Active Allergy Reactions Criticality Noted Date [...] mcg tablet Take 112 mcg by mouth graduate teacher education before breakfast. 07/21/2018 Active XARELTO 20 mg [...] (09/24/2018): Added automatically from request for surgery [id number] Surgical History Surgery Date Site/Laterality Comments CHOLECYSTECTOMY [...] on file Legal Sex Female 11:26 PM FIELD TAX AUDITOR Gender Identity Not on file Sexual Orientation Not on file Obstetrics History Last Filed Vital Signs Vital Sign Reading Time Taken Comments Blood Pressure 98/64 10/02/2019 8:21 AM FIELD TAX AUDITOR Pulse 55 10/02/2019 8:21 AM FIELD TAX AUDITOR Temperature 37.1 C (98.8 F) 11/24/2018 12:06 PM CDT Respiratory Rate 16 11/24/2018 12:06 PM CDT Oxygen Saturation 98% 11/24/2018 12:06 PM CDT Inhaled Oxygen Concentration - - Weight 80.4 kg (177 lb 3.2 oz) 10/02/2019 8:21 A M FIELD TAX AUDITOR Height 165.1 cm (5' 5 ) 10/02/2019 8:21 AM FIELD TAX AUDITOR Body Mass Index 29.49 10/02/2019 8:21 AM FIELD TAX AUDITOR Plan of Treatment Not on file Medical Devices Implanted Type Area Business Employment Specialist Device Identifier Shelf Expiration Date Model / Serial / Lot [employer] [employer] [id number] Legion 9mm Dished Knee 3-4 Insert Tibial Xlpe - [id number] Implanted:Qty: 1 on 11/11/2018 by Kemal Wright MD at [facility] Right: Knee [employer] 08/11/2028 [id number] / / [id number] [employer] [id number] 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 Taper Knee Right 4 Baseplate Tibial Titanium - [id number] Implanted:Qty: 1 on 11/11/2018 by Kemal Wright MD at [facility] Right: Knee [employer] 07/18/2028 [id number] / / [id number]- Size 4 Right Cruciate Retaining Legion Oxinium Femoral Componenet Implanted:Qty: 1 on 11/11/2018 by Kemal Wright MD at [facility] Right: Knee [employer] [id number] 01/06/2028 [id number] / / [id number] [employer] [id number] Palacos R+G High Viscosity Cement Bone Gentamicin Arthroplasty - [id number] Implanted:Qty: 1 on 11/11/2018 by Kemal Wright MD at [facility] Right: Knee [employer] 04/15/2021 [id number] / / [id number] Insurance MEDICARE [facility] MEDICARE [facility] Advance Directives For more information, please contact: [phone] * Full Code (Latest Code Status on File) Date Activated Date Inactivated Comments 11/14/2018 1:26 PM 11/15/2018 7:15 PM * Full Code Date Activated Date Inactivated Comments 11/13/2018 10:00 AM 11/14/2018 1:16 PM per patient request * Full Code Date Activated Date Inactivated Comments 11/11/2018 7:40 PM 11/12/2018 8:26 PM Care Teams Bone Char Operator Relationship Specialty Start Date End Date Dominic Fernando MD [address] [facility] [address] [facility] [address] [facility] [place] [id number] PCP - General 08/13/17
--- OUTSIDE RECORDS SUMMARY | 2024-10-31 22:58 | XMS_ITS | Patient Health Summary ---
Author Organization [facility] Address [address] [place] [address] Care Team Providers Care Evp And Chief Operating Officer Name Role Phone Boris Mcnair Primary Care Provider [phone] Note from [facility],non-owned Affiliates and Associated Physician Practices is amultiple site organization consisting of ambulatory clinics and hospital sitesin [place], [place], [place] and [place]. This disclosure is being madepursuant to the Care Everywhere program and may not contain all information available regarding this patient. Last updated 18.[facility] Allergies * Adhesive Sensitivity(Other) -Medium Criticality [...] MG tablet(Started 10/09/2018) * Cholecalciferol (VITAMIN D3) 26225 units capsule Active Problems Problem Noted Date [...] Deshaun Boland MD - 04/02/2019 Heather James PATIENT PLACEMENT COORDINATOR-PATTERN MOLDER VASCULAR LAB OR DERABLES * VAS CAROTID DUPLEX BILATERAL (04/02/2019 9:18 AM CDT) Only the most recent of2 resultswithin the time period is included. Anatomical Region Laterality Modality Intravascular Ul trasound 04/02/2019 8:18 AM CDT Narrative Procedure Note Deshaun Boland MD - 04/02/2019 Too Lara MD VASCULAR LAB ORDERAB LES * CARDIAC EKG ORDER (08/04/2018 12:01 PM MEDICAID BUSINESS ANALYST) Only the most recent of2 resultswithin the time period is included. Narrative 08/04/2018 12:01 PM MEDICAID BUSINESS ANALYST Ordered by an unspecified provider. Scanned Document CARDIAC SERVICES ORD ERABLES * ACT - POCT (IP) [facility] (02/14/2018 12:55 PM CDT) Only the most recent of2 resultswithin the time period is included. Activated Clotting Time 255 sec [facility] POCT TESTING Blood BLOOD SPECIMEN / Unknown 02/14/2018 12:55 PM CDT Kevin Bower MD LAB - POINT OF CARE ORDERABLES [facility] POCT TESTING [address] [phone] * PREPARE (CROSSMATCH) RBC UNIT(S), 2 Units (02/14/2018 9:11 AM CDT) Unit Description LR Red Cells [facility] BLOOD BANK LAB Unit ABO O [facility] BLOOD BANK LAB Unit Rh POS [facility] BLOOD BANK LAB Product Code [id number] [facility] BLO OD BANK LAB Unit Donor # [id number] [facility] BLOOD BANK LAB Unit Status released [facility] BLOO D BANK LAB Product Number [id number] [facility] B LOOD BANK LAB Blood Type Barcode 5100 [facility] BLOOD BANK LAB Unit Description LR Red Cells [facility] BLOOD BANK LAB Unit ABO O [facility] BLOOD BANK LAB Unit Rh POS [facility] BLOOD BANK LAB Product Code [id number] [facility] BLO OD BANK LAB Unit Donor # [id number] [facility] BLOOD BANK LAB Unit Status released [facility] BLOO D BANK LAB Product Number [id number] [facility] B LOOD BANK LAB Blood Type Barcode 5100 [facility] BLOOD BANK LAB Blood Bank BLOOD SPECIMEN / Unknown 02/14/2018 9:11 AM CDT 02/14/2018 9:11 AM CDT Ester Barajas DO LAB - BLOOD BANK OR DERABLES Performing Organization Address [facility]/ZIP Co de Phone Number [facility] BLOOD BANK LAB [address] [place] [address] * TYPE + SCREEN PANEL (02/14/2018 9:05 AM CDT) Antibody Screen NEG 8 9:58 AM CDT [facility] BLOOD BANK LAB ABO Rh O POS 02/14/2018 9:58 AM CDT [facility] BLOOD BANK LAB Blood Bank BLOOD SPECIMEN / Unknown Venipuncture / Unknown 02/14/2018 9:05 AM CDT 02/14/2018 9:10 AM CDT Paulina Andujar PATIENT PLACEMENT COORDINATOR-E COMMERCE ANALYST LAB - BLOOD BA NK ORDERABLES Performing Organization Address [facility] Co de Phone Number [facility] BLOOD BANK LAB [address] [place] [address] * (ABNORMAL) PTT [facility] (02/07/2018 12:50 PM CDT) APTT 42.0(H) 23.0 - 38.4 Seconds 02/07/2018 1:16 PM CDT [facility] LABORATORY HOSPITAL Comment: Suggested therapeutic range for full dose I.V. heparin therapy for venous thromboembolism is 66.0-91.0 seconds. Blood BLOOD SPECIMEN / Unknown Lab Venipuncture / Unknown 02/07/2018 12:50 PM CDT 02/07/2018 12:55 PM CDT Ester Barajas DO LAB - COAGULATION O RDERABLES Performing Organization Address City/[facility]/ZIP Co de Phone Number [facility] LABORATORY [address] [phone] * (ABNORMAL) PT-INR [facility] (02/07/2018 12:50 PM CDT) PT 19.0(H) 12.1 - 14.8 Seconds 02/07/2018 1:15 PM CDT [facility] LABORATORY HOSPITAL INR 1.6 See Comment [...] LAB - COAGULATION O RDERABLES [facility] [address] [phone] * CBC W AUTO DIFFERENTIAL (02/07/2018 12:50 PM CDT) WBC 8.0 3.5 - 10.5 10 3/uL 02/07/2018 1:01 PM [facility] RBC 4.82 3.90 - 5.00 10 6/uL 02/07/2018 1:01 PM [facility] Hemoglobin 13.6 12.0 - 15.5 g/dL 02/07/2018 1:01 PM [facility] Hematocrit 40.6 35.0 - 45.0 % 02/07/2018 1:01 PM [facility] MCV 84.2 81.0 - 97.0 fL 02/07/2018 1:01 PM [facility] MCH 28.2 28.0 - 34.0 pg 02/07/2018 1:01 PM [facility] MCHC 33.5 32.0 - 36.0 g/dL 02/07/2018 1:01 PM [facility] Platelet Count 292 150 - 400 10 3/uL 02/07/2018 1:01 PM [facility] RDW-SD 39.7 36.0 - 50.0 fL 02/07/2018 1:01 PM [facility] RDW-CV 12.9 11.2 - 14.8 % 02/07/2018 1:01 PM [facility] MPV 10.3 9.3 - 12.8 fL 02/07/2018 1:01 PM [facility] Neutrophils % 64.9 35.0 - 70.0 % 02/07/2018 1:01 PM [facility] Lymphocytes % 25.9 19.7 - 55.1 % 02/07/2018 1:01 PM [facility] Monocytes % 6.3 3.0 - 15.0 % 02/07/2018 1:01 PM [facility] Eosinophils % 2.6 0.0 - 6.0 % 02/07/2018 1:01 PM [facility] Basophil % 0.3 0.0 - 1.5 % 02/07/2018 1:01 PM [facility] Neutrophils Absolute 5.2 1.6 - 7.0 10 3/uL 02/07/2018 1:01 PM [facility] Lymphocyte Absolute 2.1 0.8 - 2.9 10 3/uL 02/07/2018 1:01 PM [facility] Monocytes Absolute 0.50 0.14 - 0.66 10 3/uL 02/07/2018 1:01 PM [facility] Eosinophils Absolute 0.21 0.00 - 0.22 10 3/uL 02/07/2018 1:01 PM [facility] Basophils Absolute 0.02 0.00 - 0.06 10 3/uL 02/07/2018 1:01 PM [facility] Immature Granulocytes % 0.3 0.0 - 1.0 % 02/07/2018 1:01 PM [facility] Blood BLOOD SPECIMEN / Unknown Lab Venipuncture / Unknown 02/07/2018 12:50 PM CDT 02/07/2018 12:55 PM CDT Ester Barajas DO LAB - HEMATOLOGY OR DERABLES [place] [address] [phone] * (ABNORMAL) COMPREHENSIVE METABOLIC PANEL (02/07/2018 12:50 PM CDT) BUN 8 7 - 26 mg/dL 02/07/2018 1:22 PM [facility] Creatinine 1.0 0.6 - 1.2 mg/dL 02/07/2018 1:22 PM [facility] Sodium 136 136 - 145 mmol/L 02/07/2018 1:22 PM [facility] Potassium 3.6 3.5 - 4.5 mmol/L 02/07/2018 1:22 PM [facility] Chloride 101 98 - 107 mmol/L 02/07/2018 1:22 PM [facility] CO2 25 22 - 29 mmol/L 02/07/2018 1:22 PM [facility] Glucose 93 70 - 115 mg/dL 02/07/2018 1:22 PM [facility] Calcium 9.9 8.4 - 10.2 mg/dL 02/07/2018 1:22 PM [facility] Protein Total 7.6 6.0 - 8.3 g/dL 02/07/2018 1:22 PM [facility] Albumin 3.5 3.4 - 5.0 g/dL 02/07/2018 1:22 PM [facility] Bilirubin Total 0.7 0.2 - 1.2 mg/dL 02/07/2018 1:22 PM [facility] Alkaline Phosphatase 109 40 - 150 Units/L 02/07/2018 1:22 PM [facility] ALT 22 0 - 55 Units/L 02/07/2018 1:22 PM [facility] AST 23 5 - 34 Units/L 02/07/2018 1:22 PM [facility] Anion Gap 14 8 - 18 02/07/2018 1:22 PM [facility] BUN/Creatinine Ratio 8 7 - 23 02/07/2018 1:22 PM [facility] Osmolality Calculated 280 270 - 300 mOsm/kg 02/07/2018 1:22 PM [facility] Albumin/Globulin Ratio 0.9(L) 1.1 - 2.3 02/07/2018 1:22 PM [facility] eGFR 57(L) >60 mL/min/1.7 3 m2 02/07/2018 1:22 PM [facility] Blood BLOOD SPECIMEN / Unknown Lab Venipuncture / Unknown 02/07/2018 12:50 PM CDT 02/07/2018 12:55 PM CDT Ester K Karl DO LAB - CHEMISTRY ORD ERABLES Performing Organization Address City/[facility]/ZIP Co de Phone Number [facility] LABORATORY [facility] [address] [phone] * EKG 12-LEAD (02/07/2018 10:08 AM CDT) Ventricular Rate 57 BPM [facility]USE Atrial Rate 57 BPM [facility] MUSE P-R Interval 206 ms H MUSE QRS Duration ms 84 ms H MUSE Q-T Interval ms 428 ms [facility] MUSE QTC Calculation (Bezet) 416 ms [facility] MUSE Calculated P [place] 70 degrees [facility] MUSE Calculated R [place] 23 degrees [facility] MUSE Calculated T [place] 60 degrees [facility] MUSE Interpretation EKG Sinus bradycardia~Po or R wave progression in precordial leads~Otherwis e normal ECG~No previous ECGs available~Conf irmed by Ancelmo KISER, JEVON ([id number]), editor map AMOS MCCLENDON ([id number]) on 02/13/2018 1:47:34 PM [facility] MUSE 02/07/2018 10:0 8 AM CDT 02/13/2018 1:47 PM CDT Ester Haresh Barajas DO ECG ORDERABLES Performing Organization Address [facility] Co de Phone Number [facility] MUSE * XR LUMBAR SPINE 4+ VW (08/19/2014 3:54 AM MEDICAID BUSINESS ANALYST) Anatomical Region Laterality Modality Spine Radiographic Yulisa ging 08/19/2014 7:39 AM MEDICAID BUSINESS ANALYST Impressions 08/19/2014 8:06 AM MEDICAID BUSINESS ANALYST Mild degenerative changes. Edited by Juanita Odonnell on 08/19/2014 7:51 AM Narrative 08/19/2014 8:06 AM MEDICAID BUSINESS ANALYST LUMBAR SPINE 5 VIEWS INDICATION: Low back [...] SHOULDER 2+ VW RIGHT (08/19/2014 3:54 AM MEDICAID BUSINESS ANALYST) Anatomical Region Laterality Modality Upper Extremity Radiographic Yulisa ging 08/19/2014 8:04 AM MEDICAID BUSINESS ANALYST Impressions 08/19/2014 8:04 AM MEDICAID BUSINESS ANALYST No fracture. Narrative 08/19/2014 8:04 AM MEDICAID BUSINESS ANALYST Right shoulder 2 views unilateral Indication: Right [...] MD DIAGNOSTIC IMAGING O RDERABLES Care Teams Evp And Chief Operating Officer Relationship Specialty Start Date End Date Boris Mcnair DO [address] [place] [address] PCP - General 04/07/19
--- OUTSIDE RECORDS SUMMARY | 2024-10-31 22:58 | XMS_ITS | Referral Summary ---
Author Organization [facility] Address [address] [place] [address] Care Team Providers Care Lamp Shade Assembler Name Role Phone Boris Mcnair DO Primary Care Provider Source Comments [facility],non-owned Affiliates and Associated Physician Practices is amultiple site organization consisting of ambulatory clinics and hospital sitesin [place], [place], [place] and [place]. This disclosure is being madepursuant to the Care Everywhere program and may not contain all information available regarding this patient. Last updated 18.[facility] Allergies Active Allergy Reactions Criticality Noted Date [...] MG tablet 10/09/2018 Active Cholecalciferol (VITAMIN D3) 34022 units capsule Active Active Problems Problem Noted [...] 7 - 26 mg/dL 02/07/2018 1:22 PM [facility] LABORATORY [facility] Creatinine 1.0 0.6 - 1.2 mg/dL 02/07/2018 1:22 PM [facility] Sodium 136 136 - 145 mmol/L 02/07/2018 1:22 PM [facility] Potassium 3.6 3.5 - 4.5 mmol/L 02/07/2018 1:22 PM [facility] Chloride 101 98 - 107 mmol/L 02/07/2018 1:22 PM [facility] LABORATORY [facility] CO2 25 22 - 29 mmol/L 02/07/2018 1:22 PM [facility] Glucose 93 70 - 115 mg/dL 02/07/2018 1:22 PM [facility] Calcium 9.9 8.4 - 10.2 mg/dL 02/07/2018 1:22 PM [facility] Protein Total 7.6 6.0 - 8.3 g/dL 02/07/2018 1:22 PM [facility]OR[facility] Albumin 3.5 3.4 - 5.0 g/dL 02/07/2018 1:22 PM [facility] Bilirubin Total 0.7 0.2 - 1.2 mg/dL 02/07/2018 1:22 PM [facility] LABOR[facility] Alkaline Phosphatase 109 40 - 150 Units/L 02/07/2018 1:22 PM [facility] ALT 22 0 - 55 Units/L 02/07/2018 1:22 PM [facility] AST 23 5 - 34 Units/L 02/07/2018 1:22 PM [facility] Anion Gap 14 8 - 18 02/07/2018 1:22 PM CDT [facility] BUN/Creatinine Ratio 8 7 - 23 02/07/2018 1:22 PM CDT [facility] Osmolality Calculated 280 270 - 300 mOsm/kg 02/07/2018 1:22 PM [facility] Albumin/Globulin Ratio 0.9(L) 1.1 - 2.3 02/07/2018 1:22 PM T [facility] LABOR[facility]ORY [facility] eGFR 57(L) >60 mL/min/1.7 3 m2 02/07/2018 1:22 PM T [facility] Blood BLOOD SPECIMEN / Unknown Lab Venipuncture / Unknown 02/07/2018 12:50 PM CDT 02/07/2018 12:55 PM CDT Ester Barajas DO LAB - CHEMISTRY ORD ERABLES Performing Organization Address [facility]/State/[facility] Co de Phone Number [facility] [address] [phone] from Last 3 Months or Most Recently Relevant to Health Maintenance Insurance Payer Benefit Plan / Group Subscriber ID Effective Dates Phone Address Type [facility] MANAGED MEDICARE ADV [facility] MEDICARE ADV [id number] Effective for all dates [address] [address] [place] [address] Medicare-Ma naged Care [place]ICA[place] [facility] [id number] Effective for all dates [address] [facility] [address] [place] [address] Medicaid SELF PAY NO INSURANCE SELF PAY NO INSURANCE Effective for all dates [place], [place] Self Pay [facility] MANAGED MEDICARE ADV [facility] STATE RETIREES MEDICARE ADV [id number] 09/17/2024-Pres ent [address] [address] [place] [address] Medicare-[facility] Care MEDICAID [facility]ICAID [facility] Effective for all dates [address] [place] [address] Medicaid UHC MANAGED MEDICARE ADV [facility] STATE RETIREES MEDICARE ADV [id number] 09/17/2024-Pres ent [address] [address] [place] [address] Medicare-Ma naged Care MEDICAID [facility] MEDICAID [facility] Effective for all dates [address] [place] [address] Medicaid UHC MANAGED MEDICARE ADV [facility] STATE RETIREES MEDICARE ADV [id number] 09/17/2024-Pres ent [address] [address] [place] [address] Medicare-Ma naged Care MEDICAID [facility] MEDICAID [facility] Effective for all dates [address] [place] [address] Medicaid UHC MANAGED MEDICARE ADV [facility] STATE RETIREES MEDICARE ADV [id number] 09/17/2024-Pres ent [address] [address] [place] [address] Medicare-Ma naged Care MEDICARE WPS MEDICARE PART B [id number] 04/16/2013-Pres ent [address] [address] [place] [address] Medicare MEDICAID - OUT OF STATE [facility]ICA[facility] [id number] 03/24/2022-Pres ent [address] [address] [place] [address] Medicaid MEDICARE MEDICARE PART A AND B [id number] 04/16/2013-Pres ent [address] [place] [address] Medicare Advance Directives * Full Code (Latest Code Status on File) Date Activated Date Inactivated Comments 02/15/2018 8:10 AM 02/15/2018 12:04 PM * Full Code Date Activated Date Inactivated Comments 02/14/2018 7:57 AM 02/14/2018 6:16 PM Care Teams Lamp Shade Assembler Relationship Specialty Start Date End Date Boris Mcnair DO [address] [place] [address] PCP - General 04/07/19
--- OUTSIDE RECORDS SUMMARY | 2024-10-31 22:58 | XMS_ITS | Continuity of Care Document ---
Author Organization [facility] Address [address] [place] [address] Phone Care Team Providers Care Shoe Ironer Name Role Phone Unavailable Unavailable Unavailable Advance Directives Directive Yes / No Effective Date File Name No Information Encounters Encounter Description Practice Location Reason(s) For Visit Diagnoses Date Provider Providers Copied on Encounter [facility], [address], [place], [place], [id number], [place] tel:[phone] [facility] No Information Mar-1 6-200 0 No Information Family History Family Member Type Diagnosis Age At Onset No Information Payers Payer name Insurance type Covered alliance party ID Authoriza tion(s) No Information Social [...]
--- OUTSIDE RECORDS SUMMARY | 2024-10-31 22:58 | XMS_ITS | Clinical Summary ---
Author Organization [facility] Address [address] [place] [address] Care Team Providers Care Radiation Technician Name Role Phone Boris Mcnair DO Primary Care Provider [phone] Source Comments [facility],non-owned Affiliates and Associated Physician Practices is amultiple site organization consisting of ambulatory clinics and hospital sitesin [place], [place], [place] and [place]. This disclosure is being madepursuant to the Care Everywhere program and may not contain all information available regarding this patient. Last updated 18.[facility] Allergies Active Allergy Reactions Criticality Noted [...] MG tablet 10/09/2018 Active Cholecalciferol (VITAMIN D3) 21764 units capsule Active Active Problems Problem Noted [...] - 26 mg/dL 02/07/2018 1:22 PM CDT [facility] Creatinine 1.0 0.6 - 1.2 mg/dL 02/07/2018 1:22 PM [facility] Sodium 136 136 - 145 mmol/L 02/07/2018 1:22 PM [facility] Potassium 3.6 3.5 - 4.5 mmol/L 02/07/2018 1:22 PM [facility] Chloride 101 98 - 107 mmol/L 02/07/2018 1:22 PM [facility] CO2 25 22 - 29 mmol/L 02/07/2018 1:22 PM [facility] Glucose 93 70 - 115 mg/dL 02/07/2018 1:22 PM [facility] Calcium 9.9 8.4 - 10.2 mg/dL 02/07/2018 1:22 PM [facility] Protein Total 7.6 6.0 - 8.3 g/dL 02/07/2018 1:22 PM [facility] Albumin 3.5 3.4 - 5.0 g/dL 02/07/2018 1:22 PM [facility] Bilirubin Total 0.7 0.2 - 1.2 mg/dL 02/07/2018 1:22 PM [facility] Alkaline Phosphatase 109 40 - 150 Units/L 02/07/2018 1:22 PM [facility] ALT 22 0 - 55 Units/L 02/07/2018 1:22 PM [facility] AST 23 5 - 34 Units/L 02/07/2018 1:22 PM [facility] Anion Gap 14 8 - 18 02/07/2018 1:22 PM [facility] BUN/Creatinine Ratio 8 7 - 23 02/07/2018 1:22 PM [facility] Osmolality Calculated 280 270 - 300 mOsm/kg 02/07/2018 1:22 PM [facility] Albumin/Globulin Ratio 0.9(L) 1.1 - 2.3 02/07/2018 1:22 PM [facility] eGFR 57(L) >60 mL/min/1.7 3 m2 02/07/2018 1:22 PM [facility] Blood BLOOD SPECIMEN / Unknown Lab Venipuncture / Unknown 02/07/2018 12:50 PM CDT 02/07/2018 12:55 PM T Ester Barajas DO LAB - CHEMISTRY ORD ERABLES [facility] [address] [phone] from Last 3 Months or Most Recently Relevant to Health Maintenance Insurance Payer Benefit Plan / Group Subscriber ID Effective Dates Phone Address Type UHC MANAGED MEDICARE ADV C MEDICARE ADV [id number] Effective for all dates [address] [address] [place] [address] Medicare-Ma naged Care MEDICAID [facility] MEDICAID [facility] [id number] Effective for all dates [address] [place] [address] Medicaid SELF PAY NO INSURANCE SELF PAY NO INSURANCE Effective for all dates [place], [place] Self Pay [facility] MANAGED MEDICARE ADV [facility] STATE RETIREES MEDICARE ADV [id number] 09/17/2024-Pres ent [address] [address] [place] [address] Medicare-Ma naged Care MEDICAID [facility] MEDICAID [facility] Effective for all dates [address] [place] [address] Medicaid UHC MANAGED MEDICARE ADV [facility] STATE RETIREES MEDICARE ADV [id number] 09/17/2024-Pres ent [address] [address] [place] [address] Medicare-Ma naged Care MEDICAID [facility] MEDICAID [facility] Effective for all dates [address] [place] [address] Medicaid UHC MANAGED MEDICARE ADV [facility] STATE RETIREES MEDICARE ADV [id number] 09/17/2024-Pres ent [address] [address] [place] [address] Medicare-Ma naged Care MEDICAID [facility] MEDICAID [facility] Effective for all dates [address] [place] [address] Medicaid UHC MANAGED MEDICARE ADV [facility] STATE RETIREES MEDICARE ADV [id number] 09/17/2024-Pres ent [address] [address] [place] [address] Medicare-Ma naged Care MEDICARE WPS MEDICARE PART B [id number] 04/16/2013-Pres ent [address] [address] [place] [address] Medicare MEDICAID - OUT OF [facility] MEDICAID - [facility] [id number] 03/24/2022-Pres ent [address] [address] [place] [address] Medicaid MEDICARE MEDICARE PART A AND B [id number] 04/16/2013-Pres ent [address] [place] [address] Medicare Advance Directives * Full Code (Latest Code Status on File) Date Activated Date Inactivated Comments 02/15/2018 8:10 AM 02/15/2018 12:04 PM * Full Code Date Activated Date Inactivated Comments 02/14/2018 7:57 AM 02/14/2018 6:16 PM Care Teams Radiation Technician Relationship Specialty Start Date End Date Boris Mcnair DO [address] [place], [place] [id number] PCP - General 04/07/19
--- OUTSIDE RECORDS SUMMARY | 2024-10-31 22:58 | XMS_ITS | Referral Summary ---
Author Organization [facility] Address [address] [place] [address] Care Team Providers Care Duct Maker Name Role Phone Dominic Fernando MD Primary Care Provider Allergies Active Allergy [...] mcg tablet Take 112 mcg by mouth pension examiner before breakfast. 07/21/2018 Active XARELTO 20 mg [...] (09/24/2018): Added automatically from request for surgery [id number] Social History Tobacco Use Types Packs/Day Years Used Date Smoking Tobacco: Every Day Cigarettes Smokeless Tobacco: Current Comments:quitting now, 1 pac k last 2-3 days Alcohol Use Standard Drinks/Week Comments No 0 (1 standard drink = 0.6 oz pur e alcohol) Comments No Sex and Gender Information Value Date Recorded Sex Assigned at Not on file Legal Sex Female 11:26 PM ASH KIER BOILER Gender Identity Not on file Sexual Orientation Not on file Last Filed Vital Signs Vital Sign Reading Time Taken Comments Blood Pressure 98/64 10/02/2019 8:21 AM ASH KIER BOILER Pulse 55 10/02/2019 8:21 AM ASH KIER BOILER Temperature 37.1 C (98.8 F) 11/24/2018 12:06 PM CDT Respiratory Rate 16 11/24/2018 12:06 PM CDT Oxygen Saturation 98% 11/24/2018 12:06 PM CDT Inhaled Oxygen Concentration - - Weight 80.4 kg (177 lb 3.2 oz) 10/02/2019 8:21 A M ASH KIER BOILER Height 165.1 cm (5' 5 ) 10/02/2019 8:21 AM ASH KIER BOILER Body Mass Index 29.49 10/02/2019 8:21 AM ASH KIER BOILER Plan of Treatment Not on file Medical Devices Implanted Type Area Logistics Clerk Device Identifier Shelf Expiration Date Model / Serial / Lot [employer]Or tho [id number] Legion 9mm Dished Knee 3-4 Insert Tibial Xlpe - [id number] Implanted:Qty: 1 on 11/11/2018 by Kemal Wright MD at [facility] Right: Knee [employer]Or tho 08/11/2028 [id number] / / [id number] [employer]Or tho [id number] 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 Taper Knee Right 4 Baseplate Tibial Titanium - [id number] Implanted:Qty: 1 on 11/11/2018 by Kemal Wright MD at [facility] Right: Knee [employer]Or tho 07/18/2028 [id number] / / [id number]- Size 4 Right Cruciate Retaining Legion Oxinium Femoral Componenet Implanted:Qty: 1 on 11/11/2018 by Kemal Wright MD at [facility] Right: Knee [employer] [id number] 01/06/2028 [id number] / / [id number] [employer] [id number] Palacos R+G High Viscosity Cement Bone Gentamicin Arthroplasty - [id number] Implanted:Qty: 1 on 11/11/2018 by Kemal Wright MD at [facility] Right: Knee [employer] 04/15/2021 [id number] / / [id number] Insurance MEDICARE IDWI MEDICARE IDWI Advance Directives For more information, please contact: [phone] * Full Code (Latest Code Status on File) Date Activated Date Inactivated Comments 11/14/2018 1:26 PM 11/15/2018 7:15 PM * Full Code Date Activated Date Inactivated Comments 11/13/2018 10:00 AM 11/14/2018 1:16 PM per patient request * Full Code Date Activated Date Inactivated Comments 11/11/2018 7:40 PM 11/12/2018 8:26 PM Care Teams Duct Maker Relationship Specialty Start Date End Date Domniic Fernando MD [address] [facility] [address] [place] [address] PCP - General 08/13/17
[2024-10-31 23:57] VITALS: BP 111/48; PULSE 77; PULSE 79; RESP 17; O2SAT 95
--- NOTE | 2024-11-01 01:08 | ED_ITS ---
HPI - General Adult General Chief complaint: Allergic Reaction Stated complaint: hard time swallowing, throat feels like closing Time Seen by Provider: 10/31/24 22:25 History of Present Illness HPI narrative: This is a 64-year-old female history of multiple allergies presenting possible allergic reaction. She says that she was drinking rib beer out of a glass when she started developed a globus sensation. She felt like she was having trouble swallowing although she did not have difficulty breathing, wheezing, nausea vomiting diarrhea or hives. She then came to the ED for evaluation Related Data Home Medications ?Medication ?Instructions ?Recorded ?Confirmed ?Last Taken ?Type rivaroxaban 20 mg tablet (Xarelto) 20 mg PO DAILY 07/29/19 10/19/24 10/16/24 History folic acid 1 mg tablet 1 mg PO DAILY 08/04/19 10/19/24 10/18/24 History aspirin 81 mg chewable tablet 81 mg PO DAILY 10/06/22 10/19/24 10/18/24 History ergocalciferol (vitamin D2) 1,250 1,250 mcg PO MONTHLY 03/24/24 10/19/24 10/16/24 History mcg (50,000 unit) capsule ferrous sulfate 325 mg (65 mg 325 mg PO DAILY 03/24/24 10/19/24 10/14/24 History iron) tablet (Feosol) lactobacillus combination no.9 4 4,000 mmu cells PO DAILY 03/24/24 10/19/24 10/16/24 History billion cell capsule (Adult 50 Plus Probiotic) cholecalciferol (vitamin D3) 25 1,000 unit PO 3XW 10/13/24 10/19/24 10/16/24 History mcg (1,000 unit) capsule (Vitamin D3) cyanocobalamin (vitamin B-12) 1,000 mcg PO 3XW 10/13/24 10/19/24 10/16/24 History 1,000 mcg tablet (Vitamin B-12) Allergies Allergy/AdvReac Type Severity Reaction Status Date / Time codeine Allergy Severe Anaphylaxis Verified 10/19/24 09:48 hydromorphone Allergy Severe Blister Verified 10/19/24 09:48 latex Allergy Severe Blister Verified 10/19/24 09:48 levofloxacin Allergy Severe BLISTERS Verified 10/19/24 09:48 ON BODY morphine Allergy Severe Hypotension Verified 10/19/24 09:48 oxycodone Allergy Severe Blister Verified 10/19/24 09:48 penicillin G Allergy Severe ANAPHYLACTI Verified 10/19/24 09:48 C Penicillins Allergy Severe Anaphylaxis Verified 10/19/24 09:48 shellfish derived Allergy Severe Swelling Verified 10/19/24 09:48 of Lip/Tongue/Throat vancomycin Allergy Severe Red Pabl[place], Verified 10/19/24 09:48 Patient unsure of reaction hydrocodone Allergy Intermediate Itching Verified 10/19/24 09:48 dexamethasone (From Maxitrol) Allergy Swelling Verified 10/19/24 09:48 of the Eye neomycin (From Maxitrol) Allergy Swelling Verified 10/19/24 09:48 of the Eye polymyxin B (From Maxitrol) Allergy Swelling Verified 10/19/24 09:48 of the Eye PMFSH Past Medical History Medical History (Updated 11/01/24 @ 01:10 by Idris Barone MD) History of colitis History of diverticulitis of colon Lower abdominal pain Diarrhea Abdominal pain BMI 34.0-34.9,adult COVID-19 (01/2022) Adenomatous colon polyp Tobacco abuse Colon, diverticulosis COPD (chronic obstructive pulmonary disease) Obesity Positive colorectal cancer screening using Cologuard test On care home drug therapy Recurrent falls Colon cancer screening History of colon polyps Otitis media Palpitations Hypersomnia Low hemoglobin 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 GERD (gastroesophageal reflux disease) History of colon polyps Hyperlipidemia Carotid artery disease Status post left carotid endarterectomy. Hypothyroidism Dizziness CVA (cerebral vascular accident) With short-term memory loss. Mouth pain Dysphagia Adult hypothyroidism Hx of deep venous thrombosis Hyperglycemia Other and unspecified hyperlipidemia Nicotine abuse Personal history of nicotine dependence Symptomatic PVCs On metoprolol 50 milligrams daily. Vitamin B12 deficiency Vitamin D deficiency Surgical History Surgical History S/P medial meniscectomy of left knee (09/2021) Hx of tonsillectomy History of shoulder surgery History of neck surgery Hx of total knee arthroplasty Right History of arthroplasty of right knee History of left-sided carotid endarterectomy Status post cervical spinal fusion Status post right rotator cuff repair Status post tubal ligation Status post left breast biopsy Status post tonsillectomy Status post cholecystectomy Status post partial hysterectomy For cervical cancer. S/P cholecystectomy Family History Family History Mother Depression Family history of diabetes mellitus in first degree relative Diabetes mellitus Father Family history of diabetes mellitus in first degree relative Acute myocardial infarction Diabetes mellitus Sibling Hepatitis Pulmonary embolism Sibling No problems noted. Other Family history of allergic disorder Family history of cardiovascular disease Family history of malignant neoplasm Hypertension Social History Social History (Updated 10/07/24 @ 14:34 by Joelle Rivera [facility]) Social History: The patient is . She lives with her son in [place]. She designates her sons, Laith Howard and Kemal Islas, as her surrogate decision makers and she wishes to be a full code. She has smoked at least 1 pack of cigarettes per day for almost 40 years. She denies alcohol and drug abuse. Smoking packs per day: 1 Smoking cigarettes per day: 20.0 Years smoked: 40 Smoking pack-years: 40.00 Smoking status: Current some day smoker Tobacco type: cigarettes Second hand tobacco smoke exposure: Yes Smoking end date: 07/17/23 Additional smoking assessment comments: CUTTING DOWN TRYING TO QUIT MOST DAYS LESS THAN 0.5PK, Alcohol intake: current Substance use: never Substance use type: does not use Do You Feel Safe in your Home?: Yes Lack of Transportation: No Lack of Food: Never True Current Housing: I Have Housing Concerned About Future Housing: No Difficulty Paying Gas/Electric Bills: Decline to Answer Difficulty Paying for Meds: No Currently Unemployed: No Education: Decline to Answer Difficulty w/ Childcare or Family Care: No Living arrangements: with family Occupation/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 In full sentences Head: atraumatic. EYES: EOMI, NOSE: Atraumatic NECK: Trachea midline RESPIRATORY: No increased rate of breathing CTAB, no stridor CARDIOVASCULAR: RRR, ABDOMINAL: Non-distended MUSCULOSKELETAl: No obvious deformities NEURO: Alert. Moving 4/4 extremities SKIN:: Warm, dry. Normal color no hives PSYCHIATRIC: Normal affect Course Vital Signs Vital signs: Vital Signs Temperature 98.2 F 10/31/24 22:30 Pulse Rate 101 H 10/31/24 22:30 Respiratory Rate 20 10/31/24 22:30 Blood Pressure 144/78 H 10/31/24 22:30 Pulse Oximetry 97 10/31/24 22:30 Oxygen Delivery Room Air 10/31/24 22:30 Temperature 98.2 F 10/31/24 22:30 Pulse Rate 79 10/31/24 23:57 Respiratory Rate 17 10/31/24 23:57 Blood Pressure 111/48 L 10/31/24 23:57 Pulse Oximetry 95 10/31/24 23:57 Oxygen Delivery Room Air 10/31/24 22:54 Medical Decision Making MDM Narrative Medical decision making narrative: -Course: 64-year-old female presenting globus sensation drinking right ear. She was treated with steroids Benadryl and Pepcid. She was monitored for 2 hours and her symptoms have completely resolved. Patient has an EpiPen at home. She was discharged with return precautions. -DDX includes but is not limited to: Allergic reaction, anaphylaxis Vital Signs Vital Signs: Vital Signs Temperature 98.2 F 10/31/24 22:30 Pulse Rate 101 H 10/31/24 22:30 Respiratory Rate 20 10/31/24 22:30 Blood Pressure 144/78 H 10/31/24 22:30 Pulse Oximetry 97 10/31/24 22:30 Oxygen Delivery Room Air 10/31/24 22:30 Temperature 98.2 F 10/31/24 22:30 Pulse Rate 79 10/31/24 23:57 Respiratory Rate 17 10/31/24 23:57 Blood Pressure 111/48 L 10/31/24 23:57 Pulse Oximetry 95 10/31/24 23:57 Oxygen Delivery Room Air 10/31/24 22:54 Discharge Plan Discharge Clinical Impression: Allergic reaction Patient Disposition: Home, Self-Care Condition: Stable Instructions: Antibiotic Form, Allergies (ED) Additional Instructions: Please use your EpiPen if you develop shortness of breath, lightheadedness or any other symptoms of a severe allergic reaction. You can return the ED at any time if you would like re-evaluation. Patient Language: Kiswahili Prescriptions: No Action aspirin [Baby Aspirin] 81 mg Tablet,Chewable 81 mg PO DAILY fluticasone propionate [Flonase Allergy Relief] 50 mcg/actuation spray,suspension 2 spray intranasal DAILY Qty: 18 3RF Rx Instructions: administer into each nostril fluticasone propion-salmeterol [Advair HFA] 230-21 mcg/actuation HFA aerosol inhaler 2 puff inhalation BID Qty: 12 0RF Rx Instructions: administer with spacer oxycodone-acetaminophen [Percocet] 5-325 mg tablet 1 tablet PO Q8H PRN (Reason: pain) Qty: 10 0RF Xarelto 20 mg tablet 20 mg PO DAILY folic acid 1 mg tablet 1 mg PO DAILY albuterol sulfate [ProAir HFA] 90 mcg/actuation HFA aerosol inhaler 2 puff INHALATION Q6H PRN (Reason: Shortness Of Breath) Qty: 8.5 5RF ergocalciferol (vitamin D2) 1,250 mcg (50,000 unit) capsule 1,250 mcg PO MONTHLY Rx Instructions: TAKE 1 CAPSULE BY MOUTH ONCE EVERY MONTH 15 th of the month Adult 50 Plus Probiotic 4 billion cell capsule 4,000 mmu cells PO DAILY Patient Comments: CURRENTLY OUT Rx Instructions: administer with a meal ferrous sulfate [Feosol] 325 mg (65 mg iron) tablet 325 mg PO DAILY cyclobenzaprine 10 mg tablet See Rx Instructions .ROUTE .COMPLEX Qty: 90 0RF Dose Instruction: Take 1 tablet by mouth three times daily as needed for muscle spasm Rx Instructions: Take 1 tablet by mouth three times daily as needed for muscle spasm ondansetron 4 mg tablet,disintegrating 4 mg PO Q8H PRN (Reason: nausea and vomiting) Qty: 90 0RF cholecalciferol (vitamin D3) [Vitamin D3] 25 mcg (1,000 unit) capsule 1,000 unit PO 3XW cyanocobalamin (vitamin B-12) [Vitamin B-12] 1,000 mcg tablet 1,000 mcg PO 3XW albuterol sulfate 2.5 mg /3 mL (0.083 %) solution for nebulization 2.5 mg inhalation Q4-6H PRN (Reason: shortness of breath or wheezing) Qty: 90 1RF Rx Instructions: Please dispense 3 ml vials. nebivolol 5 mg tablet See Rx Instructions .ROUTE .COMPLEX Qty: 90 2RF Dose Instruction: TAKE 1 TABLET BY MOUTH ONCE DAILY AT BEDTIME Rx Instructions: TAKE 1 TABLET BY MOUTH ONCE DAILY AT BEDTIME levothyroxine [Synthroid] 88 mcg tablet 88 mcg PO DAILY Qty: 90 1RF nystatin 100,000 unit/gram cream 1 applic topical BID PRN (Reason: rash) Qty: 15 0RF atorvastatin 40 mg tablet 40 mg PO DAILY Qty: 90 1RF Rx Instructions: Take 1 tablet by mouth once daily alprazolam [Xanax] 0.5 mg tablet 0.5 mg PO BID PRN (Reason: anxiety) Qty: 60 0RF mesalamine [Lialda] 1.2 gram tablet,delayed release (DR/EC) 3.6 g PO DAILY 30 Days Qty: 90 2RF pantoprazole 20 mg tablet,delayed release (DR/EC) 20 mg PO DAILY Qty: 90 4RF Rx Instructions: TAKE 1 TABLET BY MOUTH ONCE DAILY IN THE MORNING dicyclomine 10 mg capsule 10 mg PO BID PRN (Reason: abdominal pain) Qty: 60 0RF Follow-up/Referrals: Boris Mcnair DO [Primary Care Provider] -
== END 2024-11-01 01:18 | disposition home or self-care (01) ==
PROVIDERS: Emergency Provider Emergency Medicine; PCP Internal Medicine
DX: T78.49XA Other allergy, initial encounter (principal); I69.911 Memory deficit following unspecified cerebrovascular disease; J44.9 Chronic obstructive pulmonary disease, unspecified; E78.5 Hyperlipidemia, unspecified; E03.9 Hypothyroidism, unspecified; E53.8 Deficiency of other specified B group vitamins; E55.9 Vitamin D deficiency, unspecified; M19.90 Unspecified osteoarthritis, unspecified site; M79.7 Fibromyalgia; K21.9 Gastro-esophageal reflux disease without esophagitis; F17.210 Nicotine dependence, cigarettes, uncomplicated; Z98.1 Arthrodesis status; Z96.651 Presence of right artificial knee joint; Z85.41 Personal history of malignant neoplasm of cervix uteri; Z86.0101 Personal history of adenomatous and serrated colon polyps; Z86.718 Personal history of other venous thrombosis and embolism; Z86.16 Personal history of COVID-19; Z90.711 Acquired absence of uterus with remaining cervical stump; Z90.49 Acquired absence of other specified parts of digestive tract; Z79.01 Long term (current) use of anticoagulants; Z79.82 Long term (current) use of aspirin; X58.XXXA Exposure to other specified factors, initial encounter
CPT/HCPCS: 96374; 96375; 99284; J1100; J1200

== ENCOUNTER 2024-11-11 15:37 | Outpatient (CLI) | payer MEDICARE, MEDICAID, SELFPAY ==
--- NOTE | ~2024-11-11 | XR_ITS ---
EXAMINATION: XR chest 2V Exam Date/Time: 11/11/2024 15:45 DEPARTMENT OF NATURAL RESOURCES OFFICER HISTORY: R05.1 - Acute cough W/NAUSEA WEAKNESS NOTED Comparison: 02/25/2024; CT lung screening 08/25/2024. RESULT: Lines, tubes, and devices: ACDF hardware. Lungs and pleura: Mild increased reticular opacities in the lower lungs with mild cuffing. Cardiomediastinal silhouette: Stable. Other: No acute osseous or upper abdominal finding. IMPRESSION: Pulmonary opacities may represent mild interstitial edema or respiratory bronchiolitis. Reviewed, dictated and finalized at location K. RTMENT OF NATURAL RESOURCES OFFICER IMPRESSION: Pulmonary opacities may represent mild interstitial edema or respiratory bronch iolitis.
--- OUTSIDE RECORDS SUMMARY | 2024-11-11 18:02 | XMS_ITS | Clinical Summary ---
Author Organization [facility] Address [address] [place] [address] Care Team Providers Care Warehouse Shipping Receiving Clerk Name Role Phone Boris Mcnair DO Primary Care Provider [phone] Source Comments [facility],non-owned Affiliates and Associated Physician Practices is amultiple site organization consisting of ambulatory clinics and hospital sitesin [place] and [place]. This disclosure is being madepursuant to the Care Everywhere program and may not contain all information available regarding this patient. Last updated 18.[facility] Allergies Active Allergy Reactions Criticality Noted Date [...] MG tablet 10/09/2018 Active Cholecalciferol (VITAMIN D3) 47021 units capsule Active Active Problems Problem Noted [...] - 26 mg/dL 02/07/2018 1:22 PM CDT [facility] Creatinine 1.0 0.6 - 1.2 mg/dL 02/07/2018 1:22 PM [facility] Sodium 136 136 - 145 mmol/L 02/07/2018 1:22 PM [facility] Potassium 3.6 3.5 - 4.5 mmol/L 02/07/2018 1:22 PM [facility] Chloride 101 98 - 107 mmol/L 02/07/2018 1:22 PM [facility] CO2 25 22 - 29 mmol/L 02/07/2018 1:22 PM [facility] Glucose 93 70 - 115 mg/dL 02/07/2018 1:22 PM [facility] Calcium 9.9 8.4 - 10.2 mg/dL 02/07/2018 1:22 PM [facility] Protein Total 7.6 6.0 - 8.3 g/dL 02/07/2018 1:22 PM [facility] Albumin 3.5 3.4 - 5.0 g/dL 02/07/2018 1:22 PM [facility] Bilirubin Total 0.7 0.2 - 1.2 mg/dL 02/07/2018 1:22 PM [facility] Alkaline Phosphatase 109 40 - 150 Units/L 02/07/2018 1:22 PM [facility] ALT 22 0 - 55 Units/L 02/07/2018 1:22 PM [facility] AST 23 5 - 34 Units/L 02/07/2018 1:22 PM [facility] Anion Gap 14 8 - 18 02/07/2018 1:22 PM [facility] BUN/Creatinine Ratio 8 7 - 23 02/07/2018 1:22 PM [facility] Osmolality Calculated 280 270 - 300 mOsm/kg 02/07/2018 1:22 PM [facility] Albumin/Globulin Ratio 0.9(L) 1.1 - 2.3 02/07/2018 1:22 PM [facility] eGFR 57(L) >60 mL/min/1.7 3 m2 02/07/2018 1:22 PM [facility] Blood BLOOD SPECIMEN / Unknown Lab Venipuncture / Unknown 02/07/2018 12:50 PM CDT 02/07/2018 12:55 PM T Ester Barajas DO LAB - CHEMISTRY ORD ERABLES [facility] [address] [phone] from Last 3 Months or Most Recently Relevant to Health Maintenance Insurance Payer Benefit Plan / Group Subscriber ID Effective Dates Phone Address Type UHC MANAGED MEDICARE ADV C MEDICARE ADV [id number] Effective for all dates [address] [address] [place] [address] Medicare-Ma naged Care MEDICAID [facility] MEDICAID [facility] [id number] Effective for all dates [address] [place] [address] Medicaid SELF PAY NO INSURANCE SELF PAY NO INSURANCE Effective for all dates [place], [place] Self Pay [facility] MANAGED MEDICARE ADV [facility] STATE RETIREES MEDICARE ADV [id number] 09/17/2024-Pres ent [address] [address] [place] [address] Medicare-Ma naged Care MEDICAID [facility] MEDICAID [facility] Effective for all dates [address] [place] [address] Medicaid UHC MANAGED MEDICARE ADV [facility] STATE RETIREES MEDICARE ADV [id number] 09/17/2024-Pres ent [address] [address] [place] [address] Medicare-Ma naged Care MEDICAID [facility] MEDICAID [facility] Effective for all dates [address] [place] [address] Medicaid UHC MANAGED MEDICARE ADV [facility] STATE RETIREES MEDICARE ADV [id number] 09/17/2024-Pres ent [address] [address] [place] [address] Medicare-Ma naged Care MEDICAID [facility] MEDICAID [facility] Effective for all dates [address] [place] [address] Medicaid UHC MANAGED MEDICARE ADV [facility] STATE RETIREES MEDICARE ADV [id number] 09/17/2024-Pres ent [address] [address] [place] [address] Medicare-Ma naged Care MEDICARE WPS MEDICARE PART B [id number] 04/16/2013-Pres ent [address] [address] [place] [address] Medicare MEDICAID - OUT OF [facility] MEDICAID - [facility] [id number] 03/24/2022-Pres ent [address] [address] [place] [address] Medicaid MEDICARE MEDICARE PART A AND B [id number] 04/16/2013-Pres ent [address] [place] [address] Medicare Advance Directives * Full Code (Latest Code Status on File) Date Activated Date Inactivated Comments 02/15/2018 8:10 AM 02/15/2018 12:04 PM * Full Code Date Activated Date Inactivated Comments 02/14/2018 7:57 AM 02/14/2018 6:16 PM Care Teams Warehouse Shipping Receiving Clerk Relationship Specialty Start Date End Date Boris Mcnair DO [address] [place], [place] [id number] PCP - General 04/07/19
--- OUTSIDE RECORDS SUMMARY | 2024-11-11 18:02 | XMS_ITS ---
Author Organization [facility] Address [address] [place] [address] Care Team Providers Care Case Supervisor Name Role Phone Boris Mcnair Primary Care Provider Breann Zuniga Unavailable [phone] Eris Vu Unavailable Unavailable Allergies Allergen (clinical drug ingredient) Drug/Non Drug Allergy documented on EMR Reaction Allergy Type Onset Date Status codeine Codeine anaphylaxis Drug Allergy Activ e hydromorphone HYDROmorphone rash Drug Allergy Active Latex Latex rash Allergy Active levofloxacin levoFLOXacin rash Drug Allergy A ctive REASON FOR VISIT Reports of throat tightness and swelling with root beer consumption., Ocular swelling, erythema andwatering with various ocular drops following cataract surgery. C4 normal., Chronic upper airway symptoms concerning for uncontrolled atopic disease, has trialed Zyrtec in the past without benefit. ImmunoCaps negative, total IgE 28., Swelling and syncope reported after a bee sting > 20 years ago.Carrying AIE at all times., Hives and syncope reported with penicillin at age 18, avoidant since., Chronic lower airways symptoms concerning for possible asthma, occasional shortness of breath. History of COPD. No prior pulmonary evaluation, slated next week for evaluation., Avoidant of shellfish du e to syncope after consuming lobster, additional details unclear. Eats finned fish without issue., Avoidant of codeine and morphine due to syncope and reduced blood pressure., Rashes with various fragrances. Medications Medication SIG (Take, Route, Frequency, Duration) Notes Start Date End Date Status EPINEPHrine 0.3 MG/0.3ML as directed Inj ection as needed for 30 days Active Advair HFA 230-21 MCG/ACT 2 puffs Inhala tion Twice a day Active Albuterol Sulfate HFA 108 (90 Base) MCG/ACT 2 puffs as needed Inhalation every 4 hrs for 30 days Active AeroChamber MV - as directed for 30 days Any adult spacer Active Budesonide Active Ferrous Sulfate 325 (65 Fe) MG 1 tablet Orally Three times a Week Active Atorvastatin Calcium 40 MG TAKE 1 TABLET BY MOUTH ONCE DAILY Oral for 90 Days Active EPINEPHrine 0.3 MG/0.3ML as directed Inj ection as directed for 30 days Not-Taki ng Fluticasone Propionate 50 MCG/ACT 1 spray in each nostril Nasally Twice a day Not-Taking Lactobacillus - as directed Orally Not-Taking Nystatin 429522 UNIT/GM 1 application Externally Twice a day Active Nebivolol HCl 5 MG 1 tablet Orally Once a day Active Levothyroxine Sodium 88 MCG 1 tablet in the morning on an empty stomach Orally Once a day Active Folic Acid 1 MG 1 tablet Orally Once a day Active Montelukast Sodium 10 MG 1 tablet Orally Once a day for 30 days 11/09/2024 Active Ondansetron 4 MG 1 tablet on the tong ue and allow to dissolve Orally Once a day Active Rivaroxaban 20 MG 1 tablet with food Orally Once a day Active Cetirizine HCl 10 MG 1 tablet Orally Twi ce a day for 30 days 11/09/2024 Active Pantoprazole Sodium 20 MG 1 tablet 1/2 t o 1 hour before morning meal Orally Once a day Active Social History Tobacco Use: Social History Observation Description Date Details (start date - stop date) Former Smoker NA - NA Tobacco Control (Standard) Question Answer Notes Tobacco use: Former smoker How long has it been since you last smoked? 1-3 months Vital Signs Blood pressure systolic 113 mm Hg 11/09/19 25 Blood pressure diastolic 74 mm Hg 025 Height 64 in 11/09/2024 Weight 180.2 lbs 11/09/2024 BMI 30.93 kg/m2 11/09/2024 Oximetry 95 % 11/09/2024 Encounters Encounter Location Date Provider Diagnosis [facility] [place] [address] [place] [address] 11/09/2024 Breann Chavira Localized swelling, mass and lump, [...] Treatment Notes Treatment Clinical Notes Section Notes 11/09/2024 Localized swelling, mass and lump, head (ICD-10 [...] at 8. Due to history of symptoms, repeat tryptase obtained that was 7.8. Gege was also interested in urine studies due to additional history of hives and swelling, elevated plasma normetanephrine and 5-IAA level noted. Plan to repeat these urine screenings, as well as obtain a repeat plasma metanephrine level. - Gege presents today with reports of throat tightness and visible swelling that occurred while drinking root beer. She regularly drinks root beer without issue. She was treated at [facility], she did not receive epinephrine or use her AIE. Again discussed indications of use of her AIE. Records of ER visit requested. - Will start Zyrtec 10 mg BID and Singulair 10 mg at night to assess for change in symptoms. BBW discussed. Will hold off on starting Pepcid due to [place] reports of unknown GI issues, recently had an EGD and colonoscopy. Will request records. - Will request records from [facility], as well as from her sawsmith. Still awaiting. - Follow-up in 4 weeks for further evaluation and management 11/09/2024 Allergy status to unspecified drugs, medicaments and biological substances (ICD-10 - Z88.9) See plan above 11/09/2024 Other urticaria (ICD-10 - L50.8) Also with reports of urticaria with other medications, last visit obtained tryptase that returned at an 8. As above, repeat tryptase 7.8. Discussed obtaining STAT tryptase in the setting of symptoms, printed order given to Gege 11/09/2024 Hypertrophy of nasal turbinates (ICD-10 - J34.3) Gege presents with upper airway symptoms concerning for uncontrolled atopic disease. She has two dogs in her home. She has trialed Zyrtec in the past without benefit. - Obtained ImmunoCaps that returned negative, total IgE 28. Gege is considering additional testing, plan to discuss further after most recent lab values return 11/09/2024 Chronic rhinitis (ICD-10 - J31.0) See plan above 11/09/2024 Shortness of breath (ICD-10 - R06.02) Gege [...] office as Gege prefers to go to [facility]. Will obtain full PFT with [facility] device in the meantime, TE created. She is now slated for pulmonary evaluation next week. - Continue Advair as prescribed by her PCP. She is aware to rinse her mouth after use. - Gege is to use her rescue inhaler as-needed. Needs AAP next visit. - Follow-up in 4 weeks for further evaluation 11/09/2024 Toxic effect of venom of bees, accidental [...] length last visit. - Follow-up as above 11/09/2024 Rash and other nonspecific skin eruption (ICD-10 - R21) Gege reports erythematous and dry rashes that occurs with various topical products and fragrances. - Consider patch testing, discuss further next visit 11/09/2024 Allergy status to penicillin (ICD-10 - Z88.0) Gege reports passing out while taking penicillin in the past, further details are not clear. 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 If Gege pursues immunotherapy, discuss this further 11/09/2024 Elevated blood-pressure reading, without diagnosis of hypertension (ICD-10 - R03.0) BP elevated today without symptoms of urgency or emergency. Continue serial checks and follow-up with PCP 11/09/2024 Other Plan Of Treatment Medication Medication Name Sig Start Date Stop Date Notes EPINEPHrine 0.3 MG/0.3ML as directed Inj ection as needed for 30 days Advair HFA 230-21 MCG/ACT 2 puffs Inhala tion Twice a day Albuterol Sulfate HFA 108 (9 0 Base) MCG/ACT 2 puffs as needed Inhalation every 4 hrs for 30 days AeroChamber MV - as directed for 30 days Montelukast Sodium 10 MG 1 tablet Orally Once a day for 30 days 11/09/2024 Cetirizine HCl 10 MG 1 tablet Orally Twi ce a day for 30 days 11/09/2024 Treatment Notes Assessment Notes Localized swelling, mass [...] at 8. Due to history of symptoms, repeat tryptase obtained that was 7.8. Gege was also interested in urine studies due to additional history of hives and swelling, elevated plasma normetanephrine and 5-IAA level noted. Plan to repeat these urine screenings, as well as obtain a repeat plasma metanephrine level. - Gege presents today with reports of throat tightness and visible swelling that occurred while drinking root beer. She regularly drinks root beer without issue. She was treated at [facility], she did not receive epinephrine or use her AIE. Again discussed indications of use of her AIE. Records of ER visit requested. - Will start Zyrtec 10 mg BID and Singulair 10 mg at night to assess for change in symptoms. BBW discussed. Will hold off on starting Pepcid due to [place] reports of unknown GI issues, recently had an EGD and colonoscopy. Will request records. - Will request records from [facility], as well as from her sawsmith. Still awaiting. - Follow-up in 4 weeks for further evaluation and management Allergy status to unspecifie d drugs, medicaments and biological substances See plan above Other urticaria Also with reports of urticaria with other medications, last visit obtained tryptase that returned at an 8. As above, repeat tryptase 7.8. Discussed obtaining STAT tryptase in the setting of symptoms, printed order given to Gege Hypertrophy of nasal turbinates Gege presents with [...] office as Gege prefers to go to [facility]. Will obtain full PFT with [facility] device in the meantime, TE created. She is now slated for pulmonary evaluation next week. - Continue Advair as prescribed by her PCP. She is aware to rinse her mouth after use. - Gege is to use her rescue inhaler as-needed. Needs AAP next visit. - Follow-up in 4 weeks for further evaluation Toxic effect of venom of bee s, accidental (unintentional), subsequent encounter Geeg reports being stung by a bee when [...] Pending Test Test Name Order Date METANEPHRINES, FRACT, FREE, LC/MS/MS, PL ASMA 11/09/2024 TRYPTASE 11/09/2024 Next Appt Details Follow Up: 4 Weeks, Reason: Laboratory Review Progress Notes * Gege VIDALDOB:1960 (64 yo F)Acc No.[id number]:11/09/2024 Progress Notes Patient: Gege MADERA Provider: VALERIE Almonte-C :1960 A ge:64 Y S ex:Female Date:11/09/2024 Address:[address] [place], [place] [id number] Pcp:Boris Mcnair Subjective: * Chief Complaints: * 1 . Reports of throat tightness and swelling with root beer consumption.. 2. Ocular swelling, erythema and watering with various ocular drops following cataract surgery. C4 normal.. 3. Chronic upper airway symptoms concerning for uncontrolled atopic disease, has trialed Zyrtec in the past without benefit. ImmunoCaps negative, total IgE 28.. 4. Swelling and syncope reported after a bee sting > 20 years ago. Carrying AIE at all times.. 5. Hives and syncope reported with penicillin at age 18, avoidant since.. 6. Chronic lower airways symptoms concerning for possible asthma, occasional shortness of breath. History of COPD. No prior pulmonary evaluation, slated next week for evaluation.. 7. Avoidant of shellfish due to syncope after consuming lobster, additional details unclear. Eats finned fish without issue.. 8. Avoidant of codeine and morphine due to syncope and reduced blood pressure.. 9. Rashes with various fragrances.. * HPI: * Introduction: I had the pleasure of seeing Maryse Vidal, a 64-year-old female with pastmedical history significant for arthritis s/p knee replacement, diverticulitis,COPD, hyperlipidemia and GERD, who returns for further evaluation and management. She is alonefor today's visit. Gege presented to her initial visit due to concerns for multiple medicationallergies. Gege reports that she recently underwent cataract surgeryin her left eye. Following this procedure she was prescribed Maxitrol oculardrops. After a couple of days she began experiencing swelling, watering anderythema surround her left eye. She was seen by her sawsmith, whorecommended stopping Maxitrol and started her on a prednisolone eye drop, shewas also using Refresh ocular lubricant. She was, once again, seen by her sawsmith who started a different prednisoloneeye drop. Symptoms persistedand she reports the swelling worsened, due to thisshe was seen at [facility] where she was given steroids andantihistamines, also sent home on prednisone and Benadryl. She reports shecontinued to use the second prednisolone drop she was prescribed. Several dayslater she was seen once again by her sawsmith, who stopped theprednisolone ocular drop and recommended Refresh preservative- free drops. Afterfinishing her 7-day course of oral prednisone prescribed at the ER her symptomsresolved. She feels her left eye is still mildly swollen. We previously ordered C4, that returned within normal range. Maryse james reports a history of various [...] Tryptase level was ordered at returned 8. Repeat of this level was 7.8. Gege presents today reporting that one week ago while drinking root beer she developed throat tightness and visible swelling. She went to [place] ER, unsure of the treatments given. She was not given epinephrine to her knowledge. Gege admits to recovering form an illness at that time, earlier in the day she had eaten biscuits and gravy. She denies NSAID or alcohol use. No records to review. Maryse james endorses upper airway symptoms concerning foruncontrolled atopic disease. She has taken Zyrtec previously without benefit. [facility]. She has never undergone allergy testing or received allergenimmunotherapy. ImmunoCaps obtained that returned negative, total IgE 28. Maryse james endorses occasional shortness of breath. [...] evaluation despite our recommendation last visit. She is now scheduled for an appointment next week. S he also reports history of swelling and syncope following abee sting, this was over twenty years ago. She does not recall details, is onlyaware of being stung and waking up surrounded by medical personnel. She has notbeen stung since. She is now carrying an AIE at all times. A dditionally, Gege reports long history of sensitive skin.She is cautious with various fragrances that she uses. In the past has experiencederythematous, scaly rashes. Gege is avoidant of all shellfish as she passedout after eating lobster. She eats finned fish without issue. Gege is seen bycardiology due to a history of PVCs, currently on nebivolol. She lives with tanya and [id number]. Today, she reports no fevers, chills, night [...] and history, otherwise unremarkable. * Medical History: H ypothyroidism, unspecified, Bradycardia, unspecified, Carotid artery syndrome (hemispheric), Diverticulosis of small intestine without perforation or abscess without bleeding, Chronic obstructive pulmonary disease, unspecified, Other cerebrovascular disease, Dysphagia following unspecified cerebrovascular disease, Fibromyalgia, Gastro-esophageal reflux disease without esophagitis, Malignant neoplasm of cervix uteri, unspecified, Acute embolism and thrombosis of unspecified deep veins of unspecified lower extremity, Hyperlipidemia, unspecified, Hypersomnia, unspecified, Spondylosis, unspecified, Palpitations, Other sequelae following unspecified cerebrovascular disease. * Surgical History: T OTAL KNEE ARTHROPLASTY , RECHANNELING OF ARTERY , REMOVAL OF GALLBLADDER , KNEE ARTHROSCOPY/SURGERY , PARTIAL HYSTERECTOMY , LEFT BREAST BIOPSY . * Hospitalization/Major Diagno stic Procedure: D enies Past Hospitalization. * Family History: F ather: , No, diagnosed with Diabetes mellitus type I. M other: Yes, diagnosed with Diabetes mellitus type I. P aternal Grand Father: No. P aternal Grand Mother: No. M aternal Grand Father: No. M aternal Grand Mother: No. S iblings: Yes. C hildren: Yes.? Mother: Depression Father: Acute Myocardial Infarction. [...] kind(s)? (click all that apply) d og Where do your pets sleep? a nywhere in the house Fabric softeners used? N o Plants in the home? N o Is there carpeting in your bedroom? Y es Do you have [id number] carpeting? Y es What is the age [...] What material? n atural fiber (e.g. cotton) How many dogs? 2 T obacco Control (Standard) Tobacco use: F ormer smoker How long has it been since you last smoked? 1 -3 months * Medications: T aking Budesonide , Taking EPINEPHrine 0.3 MG/0.3ML Solution Auto-injector as directed Injection as needed , Taking Advair HFA 230-21 MCG/ACT Aerosol 2 puffs Inhalation Twice a day , Taking Albuterol Sulfate HFA 108 (90 Base) MCG/ACT Aerosol Solution 2 puffs as needed Inhalation every 4 hrs , Taking AeroChamber MV - Miscellaneous as directed Any adult spacer, Taking Rivaroxaban 20 MG Tablet 1 tablet with food Orally Once a day , Taking Pantoprazole Sodium 20 MG Tablet Delayed Release 1 tablet 1/2 to 1 hour before morning meal Orally Once a day , Taking Ondansetron 4 MG Tablet Disintegrating 1 tablet on the tongue and allow to dissolve Orally Once a day , Taking Nystatin 339693 UNIT/GM Cream 1 application Externally Twice a day , Taking Nebivolol HCl 5 MG Tablet 1 tablet Orally Once a day , Taking Levothyroxine Sodium 88 MCG Tablet 1 tablet in the morning on an empty stomach Orally Once a day , Taking Folic Acid 1 MG Tablet 1 tablet Orally Once a day , Taking Ferrous Sulfate 325 (65 Fe) MG Tablet 1 tablet Orally Three times a Week , Taking Atorvastatin Calcium 40 MG Tablet TAKE 1 TABLET BY MOUTH ONCE DAILY Oral , Not-Taking/PRN Fluticasone Propionate 50 MCG/ACT Suspension 1 spray in each nostril Nasally Twice a day , Not- Taking/PRN Lactobacillus - Capsule as directed Orally , Not-Taking/PRN EPINEPHrine 0.3 MG/0.3ML Solution Auto-injector as directed Injection as directed , Medication List reviewed and reconciled with the patient * Allergies: C odeine: anaphylaxis, HYDROmorphone: rash, Latex: rash, levoFLOXacin: rash. Objective: * Vitals: B P:113/74mm Hg, HR:90/min, Pulse Oximetry:95%, ACT:8, Ht: 64 in, Wt: 180.2 lbs, BMI:30.93Index. * Examination: G eneral examination: General appearance: [...] that returned at an 8. As above, repeat tryptase 7.8. Discussed obtaining STAT tryptase in the setting of symptoms, printed order given to Gege 4. H ypertrophy of nasal turbinates Notes: [...] 4 hrs, 30 days, 1, Refills 0; C ontinue AeroChamber MV Miscellaneous, -, as directed Any [...] office as Gege prefers to go to [facility]. Will obtain full PFT with [facility] device in the meantime, TE created. She is now slated for pulmonary evaluation next week. - Continue Advair as prescribed by her [...] serial checks and follow-up with PCP * Procedure Codes: 9 6160 PT-FOCUSED HLTH RISK ASSMT, G8427 DOC MEDS VERIFIED W/PT OR RE * [...] Review) * Billing Information: * Visit Code: 40483 Office Visit, Est Pt., Level 4. Modifiers: 25 * Procedure Codes: 48139 PT-FOCUSED HLTH RISK ASSMT. G8427 DOC MEDS VERIFIED W/PT OR RE. * Electronic signature of Breann Chavira DNP, DAWNA-Dirk on 11/11/2024 at 06:02 PM [employer] SUPERVISOR Sign off status: Pending * Provider: VALERIE Almonte-C Date: 0 11/09/2024 Generated for Neal Gama/Eduardo on: 0 11/11/2024 06:02 PM [employer] SUPERVISOR History and Physical Notes * HPI (History of Present Illness) Category Sub-Category Detail Notes Category Not es *Introduction I had the pleasure o f seeing Gege Vidal, a 64-year-old female with past medical history significant for arthritis s/p knee replacement, diverticulitis, COPD, hyperlipidemia and GERD, who returns for further evaluation and management. She is alone for today's visit. Gege presented to her initial visit due to concerns for multiple medication allergies. Gege reports that she recently underwent cataract surgery in her left eye. Following this procedure she was prescribed Maxitrol ocular drops. After a couple of days she began experiencing swelling, watering and erythema surround her left eye. She was seen by her sawsmith, who recommended stopping Maxitrol and started her on a prednisolone eye drop, she was also using Refresh ocular lubricant. She was, once again, seen by her sawsmith who started a different prednisolone eye drop. Symptoms persistedand she reports the swelling worsened, due to this she was seen at [facility] where she was given steroids and antihistamines, also sent home on prednisone and Benadryl. She reports she continued to use the second prednisolone drop she was prescribed. Several days later she was seen once again by her sawsmith, who stopped the prednisolone ocular drop and recommended Refresh preservative-free drops. After finishing her 7-day course of oral prednisone prescribed at the ER her symptoms resolved. She feels her left eye is still mildly swollen. We previously ordered C4, that returned within normal range. [...] Tryptase level was ordered at returned 8. Repeat of this level was 7.8. Gege presents today reporting that one week ago while drinking root beer she developed throat tightness and visible swelling. She went to [place] ER, unsure of the treatments given. She was not given epinephrine to her knowledge. Gege admits to recovering form an illness at that time, earlier in the day she had eaten biscuits and gravy. She denies NSAID or alcohol use. No records to review. Gege endorses upper airway symptoms concerning for [...] evaluation despite our recommendation last visit. She is now scheduled for an appointment next week. She also reports history of swelling and [...] nebivolol. She lives with her son and [id number]-von. Today, she reports no fevers, chills, night [...]
--- OUTSIDE RECORDS SUMMARY | 2024-11-11 18:02 | XMS_ITS | Referral Summary ---
Author Organization [facility] Address [address] [place] [address] Care Team Providers Care Toll Test Worker Name Role Phone Boris Mcnair DO Primary Care Provider [phone] Source Comments [facility],non-owned Affiliates and Associated Physician Practices is amultiple site organization consisting of ambulatory clinics and hospital sitesin [place], [place], [place] and [place]. This disclosure is being madepursuant to the Care Everywhere program and may not contain all information available regarding this patient. Last updated 18.[facility] Allergies Active Allergy Reactions Criticality Noted [...] MG tablet 10/09/2018 Active Cholecalciferol (VITAMIN D3) 97704 units capsule Active Active Problems Problem Noted [...] 7 - 26 mg/dL 02/07/2018 1:22 PM [facility] Creatinine 1.0 0.6 - 1.2 mg/dL 02/07/2018 1:22 PM [facility] Sodium 136 136 - 145 mmol/L 02/07/2018 1:22 PM [facility] Potassium 3.6 3.5 - 4.5 mmol/L 02/07/2018 1:22 PM [facility] Chloride 101 98 - 107 mmol/L 02/07/2018 1:22 PM [facility] CO2 25 22 - 29 mmol/L 02/07/2018 1:22 PM [facility] Glucose 93 70 - 115 mg/dL 02/07/2018 1:22 PM [facility] Calcium 9.9 8.4 - 10.2 mg/dL 02/07/2018 1:22 PM [facility] Protein Total 7.6 6.0 - 8.3 g/dL 02/07/2018 1:22 PM [facility] Albumin 3.5 3.4 - 5.0 g/dL 02/07/2018 1:22 PM [facility] Bilirubin Total 0.7 0.2 - 1.2 mg/dL 02/07/2018 1:22 PM [facility] Alkaline Phosphatase 109 40 - 150 Units/L 02/07/2018 1:22 PM [facility] ALT 22 0 - 55 Units/L 02/07/2018 1:22 PM [facility] AST 23 5 - 34 Units/L 02/07/2018 1:22 PM [facility] Anion Gap 14 8 - 18 02/07/2018 1:22 PM CDT [facility] BUN/Creatinine Ratio 8 7 - 23 02/07/2018 1:22 PM CDT [facility] Osmolality Calculated 280 270 - 300 mOsm/kg 02/07/2018 1:22 PM [facility] Albumin/Globulin Ratio 0.9(L) 1.1 - 2.3 02/07/2018 1:22 PM T [facility] eGFR 57(L) >60 mL/min/1.7 3 m2 02/07/2018 1:22 PM T [facility] Blood BLOOD SPECIMEN / Unknown Lab Venipuncture / Unknown 02/07/2018 12:50 PM CDT 02/07/2018 12:55 PM CDT Ester Barajas DO LAB - CHEMISTRY ORD ERABLES Performing Organization Address [facility]/State/[facility] Co de Phone Number [facility] [address] [phone] from Last 3 Months or Most Recently Relevant to Health Maintenance Insurance Payer Benefit Plan / Group Subscriber ID Effective Dates Phone Address Type [facility] MANAGED MEDICARE ADV [facility] MEDICARE ADV [id number] Effective for all dates [address] [address] [place] [address] Medicare-Ma naged Care MEDICA[place] [facility] [place] [id number] Effective for all dates [address] [facility] [address] [place] [address] Medicaid SELF PAY NO INSURANCE SELF PAY NO INSURANCE Effective for all dates [place], [place] Self Pay [facility] MANAGED MEDICARE ADV [facility] STATE RETIREES MEDICARE ADV [id number] 09/17/2024-Pres ent [address] [address] [place] [address] Medicare-[facility] Care MEDICAID [facility] [place] MED[place]ID [facility] [place] Effective for all dates [address] [place] [address] Medicaid U[employer] MANAGED MEDICARE ADV [facility] STATE RETIREES MEDICARE ADV [id number] 09/17/2024-Pres ent [address] [address] [place] [address] Medicare-Ma naged Care MEDICAID SPENDDOWN [facility] MEDICAID [place] [facility] Effective for all dates [address] [place] [address] Medicaid [employer] MANAGED MEDICARE ADV [facility] STATE RETIREES MEDICARE ADV [id number] 09/17/2024-Pres ent [address] [address] [place] [address] Medicare-Ma naged Care MEDICAID [place] [facility] MEDICAID [place] [facility] Effective for all dates [address] [place] [address] Medicaid UHC MANAGED MEDICARE ADV [facility] STATE RETIREES MEDICARE ADV [id number] 09/17/2024-Pres ent [address] [address] [place] [address] Medicare-Ma naged Care MEDICARE WPS MEDICARE PART B [id number] 04/16/2013-Pres ent [address] [address] [place] [address] Medicare MEDICAID - OUT OF STATE MEDICAID - [facility] [id number] 03/24/2022-Pres ent [address] [address] [place] [address] Medicaid MEDICARE MEDICARE PART A AND B [id number] 04/16/2013-Pres ent [address] [place] [address] Medicare Advance Directives * Full Code (Latest Code Status on File) Date Activated Date Inactivated Comments 02/15/2018 8:10 AM 02/15/2018 12:04 PM * Full Code Date Activated Date Inactivated Comments 02/14/2018 7:57 AM 02/14/2018 6:16 PM Care Teams Toll Test Worker Relationship Specialty Start Date End Date Boris Mcnair DO [address] [place] [address] PCP - General 04/07/19
--- OUTSIDE RECORDS SUMMARY | 2024-11-11 18:03 | XMS_ITS | Continuity of Care Document ---
Author Organization [facility] Address [address] [place] [address] Phone Care Team Providers Care Patient Safety Tech Name Role Phone Unavailable Unavailable Unavailable Advance Directives Directive Yes / No Effective Date File Name No Information Encounters Encounter Description Practice Location Reason(s) For Visit Diagnoses Date Provider Providers Copied on Encounter [facility], [address], [place], [place], [id number], [place] tel:[phone] [facility] No Information Mar-1 6-200 0 No Information [...]
--- OUTSIDE RECORDS SUMMARY | 2024-11-11 18:03 | XMS_ITS | Patient Health Summary ---
Author Organization [facility] Address [address] [facility] [place] [address] Care Team Providers Care Pool Nurse Name Role Phone Boris Mcnair Primary Care Provider [phone] Note from [facility],non-owned Affiliates and Associated Physician Practices is amultiple site organization consisting of ambulatory clinics and hospital sitesin [place], [place], [place] and [place]. This disclosure is being madepursuant to the Care Everywhere program and may not contain all information available regarding this patient. Last updated 18.[facility] Allergies * Adhesive Sensitivity(Other) -Medium Criticality * [...] MG tablet(Started 10/09/2018) * Cholecalciferol (VITAMIN D3) 04711 units capsule Active Problems Problem Noted Date [...] Boland MD - 04/02/2019 Heather James SOFTWARE TECHNICIAN-CHAIN OFFBEARER VASCULAR LAB OR DERABLES * VAS CAROTID DUPLEX BILATERAL (04/02/2019 9:18 AM CDT) Only the most recent of2 resultswithin the time period is included. Anatomical Region Laterality Modality Intravascular Ul trasound 04/02/2019 8:18 AM CDT Narrative Procedure Note Deshaun Boland MD - 04/02/2019 Too Lara MD VASCULAR LAB ORDERAB LES * CARDIAC EKG ORDER (08/04/2018 12:01 PM INDEPENDENT CROP CONSULTANT) Only the most recent of2 resultswithin the time period is included. Narrative 08/04/2018 12:01 PM INDEPENDENT CROP CONSULTANT Ordered by an unspecified provider. Scanned Document CARDIAC SERVICES ORD ERABLES * ACT - POCT (IP) [facility] (02/14/2018 12:55 PM CDT) Only the most recent of2 resultswithin the time period is included. Activated Clotting Time 255 sec [facility] POCT TESTING Blood BLOOD SPECIMEN / Unknown 02/14/2018 12:55 PM CDT Kevin Bower MD LAB - POINT OF CARE ORDERABLES [facility] POCT TESTING [address] [phone] * PREPARE (CROSSMATCH) RBC UNIT(S), 2 Units (02/14/2018 9:11 AM CDT) Unit Description LR Red Cells [facility] BLOOD BANK LAB Unit ABO O [facility] BLOOD BANK LAB Unit Rh POS [facility] BLOOD BANK LAB Product Code RL1 [facility] BLO OD BANK LAB Unit Donor # [id number] [facility] BLOOD BANK LAB Unit Status released [facility] BLOO D BANK LAB Product Number [id number] [facility] B LOOD BANK LAB Blood Type Barcode 5100 [facility] BLOOD BANK LAB Unit Description LR Red Cells [facility] BLOOD BANK LAB Unit ABO O [facility] BLOOD [facility]ANK LAB Unit Rh POS [facility] BLOOD BANK LAB Product Code RL3 [facility] BLO OD BANK LAB Unit Donor # [id number] [facility] BLOOD BANK LAB Unit Status released [facility] BLOO D BANK LAB Product Number [id number] [facility] B LOOD BANK LAB Blood Type Barcode 5100 [facility] BLOOD BANK LAB Blood Bank BLOOD SPECIMEN / Unknown 02/14/2018 9:11 AM CDT 02/14/2018 9:11 AM CDT Ester Barajas DO LAB - BLOOD BANK OR DERABLES Performing Organization Address [facility]/ZIP Co de Phone Number [facility] BLOOD BANK LAB [address] [place] [address] * TYPE + SCREEN PANEL (02/14/2018 9:05 AM CDT) Antibody Screen NEG 8 9:58 AM CDT [facility] BLOOD BANK LAB ABO Rh O POS 02/14/2018 9:58 AM CDT [facility] BLOOD BANK LAB Blood Bank BLOOD SPECIMEN / Unknown Venipuncture / Unknown 02/14/2018 9:05 AM CDT 02/14/2018 9:10 AM CDT Paulina Andujar SOFTWARE TECHNICIAN-IC DESIGNER STANDARD CELLS LAB - BLOOD BA NK ORDERABLES Performing Organization Address [facility] Co de Phone Number [facility] BLOOD BANK LAB [address] [place] [address] * (ABNORMAL) PTT [facility] (02/07/2018 12:50 PM CDT) APTT 42.0(H) 23.0 - 38.4 Seconds 02/07/2018 1:16 PM CDT [facility] Comment: Suggested therapeutic range for full dose I.V. heparin therapy for venous thromboembolism is 66.0-91.0 seconds. Blood BLOOD SPECIMEN / Unknown Lab Venipuncture / Unknown 02/07/2018 12:50 PM CDT 02/07/2018 12:55 PM CDT Ester Barajas DO LAB - COAGULATION O RDERABLES Performing Organization Address City/[facility]/ZIP Co de Phone Number [facility]ATORY [address] [phone] * (ABNORMAL) PT-INR [facility] (02/07/2018 12:50 PM CDT) PT 19.0(H) 12.1 - 14.8 Seconds 02/07/2018 1:15 PM CDT [facility] INR 1.6 See Comment 02/07/2018 [...] Barajas DO LAB - COAGULATION O RDERABLES [facility] [address] [phone] * CBC W AUTO DIFFERENTIAL (02/07/2018 12:50 PM CDT) WBC 8.0 3.5 - 10.5 10 3/uL 02/07/2018 1:01 PM [facility] RBC 4.82 3.90 - 5.00 10 6/uL 02/07/2018 1:01 PM [facility] Hemoglobin 13.6 12.0 - 15.5 g/dL 02/07/2018 1:01 PM [facility] Hematocrit 40.6 35.0 - 45.0 % 02/07/2018 1:01 PM [facility] MCV 84.2 81.0 - 97.0 fL 02/07/2018 1:01 PM [facility] MCH 28.2 28.0 - 34.0 pg 02/07/2018 1:01 PM [facility] MCHC 33.5 32.0 - 36.0 g/dL 02/07/2018 1:01 PM [facility] Platelet Count 292 150 - 400 10 3/uL 02/07/2018 1:01 PM [facility] RDW-SD 39.7 36.0 - 50.0 fL 02/07/2018 1:01 PM [facility] RDW-CV 12.9 11.2 - 14.8 % 02/07/2018 1:01 PM [facility] MPV 10.3 9.3 - 12.8 fL 02/07/2018 1:01 PM [facility] Neutrophils % 64.9 35.0 - 70.0 % 02/07/2018 1:01 PM [facility] Lymphocytes % 25.9 19.7 - 55.1 % 02/07/2018 1:01 PM [facility] Monocytes % 6.3 3.0 - 15.0 % 02/07/2018 1:01 PM [facility] Eosinophils % 2.6 0.0 - 6.0 % 02/07/2018 1:01 PM [facility] Basophil % 0.3 0.0 - 1.5 % 02/07/2018 1:01 PM [facility] Neutrophils Absolute 5.2 1.6 - 7.0 10 3/uL 02/07/2018 1:01 PM [facility] Lymphocyte Absolute 2.1 0.8 - 2.9 10 3/uL 02/07/2018 1:01 PM [facility] Monocytes Absolute 0.50 0.14 - 0.66 10 3/uL 02/07/2018 1:01 PM [facility] Eosinophils Absolute 0.21 0.00 - 0.22 10 3/uL 02/07/2018 1:01 PM [facility] Basophils Absolute 0.02 0.00 - 0.06 10 3/uL 02/07/2018 1:01 PM [facility] Immature Granulocytes % 0.3 0.0 - 1.0 % 02/07/2018 1:01 PM [facility] Blood BLOOD SPECIMEN / Unknown Lab Venipuncture / Unknown 02/07/2018 12:50 PM CDT 02/07/2018 12:55 PM CDT Ester Barajas DO LAB - HEMATOLOGY OR DERABLES [place] [id number] [phone] * (ABNORMAL) COMPREHENSIVE METABOLIC PANEL (02/07/2018 12:50 PM CDT) BUN 8 7 - 26 mg/dL 02/07/2018 1:22 PM [facility] Creatinine 1.0 0.6 - 1.2 mg/dL 02/07/2018 1:22 PM [facility] Sodium 136 136 - 145 mmol/L 02/07/2018 1:22 PM [facility] Potassium 3.6 3.5 - 4.5 mmol/L 02/07/2018 1:22 PM [facility] Chloride 101 98 - 107 mmol/L 02/07/2018 1:22 PM [facility] CO2 25 22 - 29 mmol/L 02/07/2018 1:22 PM [facility] Glucose 93 70 - 115 mg/dL 02/07/2018 1:22 PM [facility] Calcium 9.9 8.4 - 10.2 mg/dL 02/07/2018 1:22 PM [facility] Protein Total 7.6 6.0 - 8.3 g/dL 02/07/2018 1:22 PM [facility] Albumin 3.5 3.4 - 5.0 g/dL 02/07/2018 1:22 PM [facility] Bilirubin Total 0.7 0.2 - 1.2 mg/dL 02/07/2018 1:22 PM [facility] Alkaline Phosphatase 109 40 - 150 Units/L 02/07/2018 1:22 PM [facility] ALT 22 0 - 55 Units/L 02/07/2018 1:22 PM [facility] AST 23 5 - 34 Units/L 02/07/2018 1:22 PM [facility] Anion Gap 14 8 - 18 02/07/2018 1:22 PM [facility] BUN/Creatinine Ratio 8 7 - 23 02/07/2018 1:22 PM [facility] Osmolality Calculated 280 270 - 300 mOsm/kg 02/07/2018 1:22 PM [facility] Albumin/Globulin Ratio 0.9(L) 1.1 - 2.3 02/07/2018 1:22 PM [facility] eGFR 57(L) >60 mL/min/1.7 3 m2 02/07/2018 1:22 PM [facility] Blood BLOOD SPECIMEN / Unknown Lab Venipuncture / Unknown 02/07/2018 12:50 PM CDT 02/07/2018 12:55 PM CDT Ester K Karl DO LAB - CHEMISTRY ORD ERABLES Performing Organization Address City/[facility]/ZIP Co de Phone Number [facility] [address] [phone] * EKG 12-LEAD (02/07/2018 10:08 AM CDT) Ventricular Rate 57 BPM [facility] Atrial Rate 57 BPM [facility] MUSE P-R Interval 206 ms H MUSE QRS Duration ms 84 ms H MUSE Q-T Interval ms 428 ms [facility] MUSE QTC Calculation (Bezet) 416 ms [facility] Calculated P [place] 70 degrees [facility] Calculated R [place] 23 degrees [facility] Calculated T [place] 60 degrees [facility] Interpretation EKG Sinus bradycardia~Po or R wave progression in precordial leads~Otherwis e normal ECG~No previous ECGs available~Conf irmed by Ancelmo KISER, JEVON ([id number]), story editor AMOS MCCLENDON ([id number]) on 02/13/2018 1:47:34 PM [facility] MUSE 02/07/2018 10:0 8 AM CDT 02/13/2018 1:47 PM CDT Ester Haresh Barajas DO ECG ORDERABLES Performing Organization Address [facility] Co de Phone Number [facility] MUSE * XR LUMBAR SPINE 4+ VW (08/19/2014 3:54 AM INDEPENDENT CROP CONSULTANT) Anatomical Region Laterality Modality Spine Radiographic Yulisa ging 08/19/2014 7:39 AM INDEPENDENT CROP CONSULTANT Impressions 08/19/2014 8:06 AM INDEPENDENT CROP CONSULTANT Mild degenerative changes. Edited by Juanita Odonnell on 08/19/2014 7:51 AM Narrative 08/19/2014 8:06 AM INDEPENDENT CROP CONSULTANT LUMBAR SPINE 5 VIEWS INDICATION: Low back [...] SHOULDER 2+ VW RIGHT (08/19/2014 3:54 AM INDEPENDENT CROP CONSULTANT) Anatomical Region Laterality Modality Upper Extremity Radiographic Yulisa ging 08/19/2014 8:04 AM INDEPENDENT CROP CONSULTANT Impressions 08/19/2014 8:04 AM INDEPENDENT CROP CONSULTANT No fracture. Narrative 08/19/2014 8:04 AM INDEPENDENT CROP CONSULTANT Right shoulder 2 views unilateral Indication: Right [...] MD DIAGNOSTIC IMAGING O RDERABLES Care Teams Pool Nurse Relationship Specialty Start Date End Date Boris Mcnair DO [address] [place] [address] PCP - General 04/07/19
--- OUTSIDE RECORDS SUMMARY | 2024-11-11 18:03 | XMS_ITS | Clinical Summary ---
Author Organization [facility] Address [address] [place] [address] Care Team Providers Care Pretzel Twisting Machine Operator Name Role Phone Eris Vu MD Primary Care Provider [phone] Allergies Active Allergy Reactions Criticality Noted Date Comments Adhesive Tape-Silicones Other (See Comments) Medium 08/19/2014 Blisters Codeine Shortness of Breath/Wheezing High 08/19/2014 Upfgbxuii-A-Bpaeiop-Se jun-Brom Other (See Comments) Low 08/19/2014 Alcohol- [...] mouth every 6 hours as needed . 8 Active ondansetron (ZOFRAN) 4 mg Tablet Take 4 mg by mouth every 8 hours as needed for Nausea/Belkis sis. Active Cetirizine (ZyrTEC) 10 mg Capsule Take 10 mg by mouth 1 time daily as needed . Active aspirin (ECOTRIN EC) 81 mg Tablet, Delayed Release (E.C.) Take 1 Tablet (81 mg) by mouth daily. 90 Tablet 3 8 Active cholecalciferol 50,000 unit CapsuleIndicati ons:pt taking once a month Take by mouth. Active pantoprazole (PROTONIX) 20 mg Tablet, Delayed Release (E.C.) Take 20 mg by mouth daily. Active cyclobenzaprine (FLEXERIL) 5 mg Tablet TAKE 1 TABLET BY MOUTH TWICE DAILY NEEDED FOR MUSCLE SPASM 0 Active Bystolic 5 mg Tablet 0 Active atorvastatin (LIPITOR) 40 mg tablet TAKE 1 TABLET BY MOUTH ONCE DAILY 0 Active Euthyrox 75 mcg tablet TAKE 1 TABLET BY MOUTH ONCE DAILY 0 Active Xarelto 20 mg Tablet Take 1 tablet by mouth once daily 90 Tablet 4 Active folic acid (FOLVITE) 1 mg tablet Take 1 tablet by mouth once daily 30 Tablet 5 Active folic acid (FOLVITE) 1 mg tablet Take 1 tablet by mouth once daily 90 Tablet 1 4 11/02/19 25 Discontinued Active Problems Problem Noted Date Diagnosed Date 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 01/06/2020 Diverticulitis 03/24/2018 Secondary hypercoagulable state 11/15/2017 Tobacco use 11/15/2017 Encounters Date Type Department Care Team Description 11/04/2024 External Device Data ST[facility] ABSTRACTION Provider, Abstract 11/02/2024 Refill [facility] Oncology and Hematology - [place] [address] [place] [address] Chris Owens MD 10/09/2024 Abstract [facility] Oncology and Hematology - [place] [address] [place] [address] Chris Owens MD 10/09/2024 Telephone [facility] Oncology and Hematology - [place] [address] [place] [address] Chris Owens MD Surgical Clearance 10/08/2024 External Device Data STL ABSTRACTION Provider, Abstract 09/29/2024 External Device Data ST[facility] ABSTRACTION Provider, Abstract 08/25/2024 Orders Only [facility] Oncology and Hematology - [place] [address] [place] [address] Chris Owens MD 08/20/2024 Refill [facility] Oncology and Hematology - [place] [address] [place] [address] Chris Owens MD from Last 3 Months [...] on file Legal Sex Female 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 [address] [place] [address] Chris Owens MD [address] [facility] [address] [place] [id number] Health Maintenance Due Date Last Done Comments [...] CHEST WO CONTRAST Routine 08/25/2024 12:41 PM SLD TEACHER MAMMO BILAT DIAGNOSTIC Routine 02/17/2024 1:[address] LUNG SCREENING (LDCT BASELINE OR ANNUAL) Routine 07/15/2019 Encounter for screening for lung cancer from Last 3 Months or Most Recently Relevant to Health Maintenance Results * CT CHEST WO CONTRAST (08/25/2024 12:41 PM SLD TEACHER) Anatomical Region Laterality Modality Chest Other us [...] Most Recently Relevant to Health Maintenance Insurance [facility] [id number] Care Teams Pretzel Twisting Machine Operator Relationship Specialty Start Date End Date Eris Vu MD PCP - General Family Practice 02/21/23
--- OUTSIDE RECORDS SUMMARY | 2024-11-11 18:03 | XMS_ITS | Patient Health Record ---
Author Organization [facility] Address [address] [place] [address] Care Team Providers Care Slubber Operator Name Role Phone Boris Mcnair Primary Care Provider UnavailBreann Wing Unavailable [phone] Eris Vu Unavailable Unavailable Franky Gray Unavailable [phone] Allergies Allergen (clinical drug ingredient) Drug/Non Drug [...] a day for 30 days 11/09/2024 Active Cetirizine HCl 10 MG 1 tablet Orally Twi ce a day for 30 days 11/09/2024 Active EPINEPHrine 0.3 MG/0.3ML as directed Inj ection as needed for 30 days Active Advair HFA 230-21 MCG/ACT 2 puffs Inhala tion Twice a day Active Albuterol Sulfate HFA 108 (90 Base) MCG/ACT 2 puffs as needed Inhalation every 4 hrs for 30 days Active Ondansetron 4 MG 1 tablet on the tong ue and allow to dissolve Orally Once a day Active AeroChamber MV - as directed for 30 days Any adult spacer Active Nystatin 299449 UNIT/GM 1 application Externally Twice a day Active Ferrous Sulfate 325 (65 Fe) MG 1 tablet Orally Three times a Week Active Atorvastatin Calcium 40 MG TAKE 1 TABLET BY MOUTH ONCE DAILY Oral for 90 Days Active Levothyroxine Sodium 88 MCG 1 tablet in the morning on an empty stomach Orally Once a day Active Budesonide Active Folic Acid 1 MG 1 tablet Orally Once a day Active Rivaroxaban 20 MG 1 tablet with food Orally Once a day Active EPINEPHrine 0.3 MG/0.3ML as directed Inj ection as directed for 30 days Not-Taki ng Pantoprazole Sodium 20 MG 1 tablet 1/2 t o 1 hour before morning meal Orally Once a day Active Fluticasone Propionate 50 MCG/ACT 1 spray in each nostril Nasally Twice a day Not-Taking Lactobacillus - as directed Orally Not-Taking Social History Tobacco Use: Social History Observation Description Date Details (start date - stop date) Former Smoker NA - NA Tobacco Control (Standard) Question Answer Notes Tobacco use: Former smoker How long has it been since you last smoked? 1-3 months Problems Problem Type SNOMED Code ICD Code Onset Dates Problem Status W/U Status Risk Notes Problem Allergy to penicillin (15674487) Allergy status to penicillin (Z88.0) Active confirmed Problem Eruption of skin (577018958) Rash and other nonspecific skin eruption (R21) Active confirmed Problem Carotid artery syndrome hemispheric (786538582) Carotid artery syndrome (hemispheric) (G45.1) Active confirmed Problem Heart disease (33858157) Other heart disorders in diseases classified elsewhere (I52) Active confirmed Problem Chronic rhinitis (64237347) Chronic rhinitis (J31.0) Active confirmed Problem Hypertrophy of nasal turbinates (17622480) Hypertrophy of nasal turbinates (J34.3) Active confirmed Problem Urticaria (020945573) Other urticaria (L50.8) Active confirmed Problem Fibromyalgia (418213003) Fibromyalgia (M79.7) Active confirmed Problem Swelling of head (639232753) Localized swelling, mass and lump, head (R22.0) Active confirmed Problem Toxic effect of venom (67387484) Toxic effect of venom of bees, accidental (unintentional), initial encounter (T63.441A) Active confirmed Problem Shortness of breath (645082261) Shortness of breath (R06.02) Active confirmed Problem Drug allergy (109416378) Allergy status to unspecified drugs, medicaments and biological substances (Z88.9) Active confirmed Vital Signs Oximetry 95 % 11/09/2024 Blood pressure diastolic 74 mm Hg 11/09/2024 Height 64 in 11/09/2024 Blood pressure systolic 113 mm Hg 11/09/2024 Weight 180.2 lbs 11/09/2024 BMI 30.93 kg/m2 11/09/2024 Encounters Encounter Location Date Provider Diagnosis [facility] [address] [place] [address] 11/09/2024 Breann Chavira Localized swelling, mass and [...] blood-pressure reading, without diagnosis of hypertension R03.0 [facility] [address] [place] [address] 08/10/2024 Breann Chavira Localized swelling, mass and [...] heart disorders in diseases classified elsewhere I52 [facility] [address] [place] [address] 10/06/2024 Breann Chavira Localized swelling, mass and [...] blood-pressure reading, without diagnosis of hypertension R03.0 [facility] [address] [place] [address] 09/29/2024 Breann HERNANDEZ [facility] [address] [place] [address] 11/02/2024 Breann HERNANDEZ [facility] [address] [place] [address] 11/09/2024 Breann Chavira Assessments Encounter Date Diagnosis (ICD [...] plans below. 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 - Follow-up in 4 weeks for laboratory review 08/10/2024 Allergy status to unspecified drugs, medicaments and biological substances (ICD-10 - Z88.9) See plan above 10/06/2024 Localized swelling, mass and lump, head (ICD-10 - R22.0) Gege presented to her initial visit with concerns for various medication allergies. Most recently she was prescribed various ocular drops following cataract surgery, please see [facility] for full details. She endorsed ocular swelling [...] as she would like to go to [facility]. 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 Still awaiting. - Follow-up in 4 weeks for laboratory review 10/06/2024 Allergy status to unspecified drugs, medicaments and biological substances (ICD-10 - Z88.9) See plan above 11/09/2024 Localized swelling, mass and lump, head [...] beer without issue. She was treated at [facility], she did not receive epinephrine [...] request records. 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 Still awaiting. - Follow-up in 4 weeks [...] of symptoms, printed order given to Gege 10/06/2024 Other urticaria (ICD-10 - L50.8) Also with reports of urticaria with other medications, last visit obtained tryptase that returned at an 8. As above, will repeat tryptase. Gege is also interested in urine studies due to additional history of hives and swelling, orders printed as she would like to go to [facility] 08/10/2024 Other urticaria (ICD-10 - L50.8) Also [...] after most recent lab values return 11/09/2024 Hypertrophy of nasal turbinates (ICD-10 - [...] (ICD-10 - J31.0) See plan above 10/06/2024 Chronic rhinitis (ICD-10 - J31.0) See [...] office as Gege prefers to go to [facility]. Will obtain full PFT with [employer] device in the meantime, TE created. - Continue Advair as prescribed by her PCP. She is aware to rinse her mouth after use. - Gege is to use her rescue inhaler as-needed. Needs AAP next visit. - Follow-up in 4 weeks for further evaluation 11/09/2024 Shortness of breath (ICD-10 - R06.02) [...] office as Gege prefers to go to [facility]. Will obtain full PFT with [...] last visit. - Follow-up as above 10/06/2024 Toxic effect of venom of bees, [...] patch testing, discuss further next visit 11/09/2024 Rash and other nonspecific skin eruption [...] Gege is considering at this time 11/09/2024 Allergy status to penicillin (ICD-10 - [...] Gege pursues immunotherapy, discuss this further 11/09/2024 Other heart disorders in diseases classified elsewhere (ICD-10 - I52) Gege reports history of PVCs, currently prescribed a beta-jerry. If Gege pursues immunotherapy, discuss this further 11/09/2024 Elevated blood-pressure reading, without diagnosis of hypertension (ICD-10 - R03.0) BP elevated today without symptoms of urgency or emergency. Continue serial checks and follow-up with PCP 10/06/2024 Elevated blood-pressure reading, without diagnosis of hypertension (ICD-10 - R03.0) BP elevated today without symptoms of urgency or emergency. Continue serial checks and follow-up with PCP 09/07/2024 Other 11/09/2024 Other 08/10/2024 Other 10/06/2024 Other Plan Of Treatment Pending Test Test Name Order Date RESPIRATORY ALLERGY PROFILE REGION VIII: [place], [place] 08/10/2024 METANEPHRINES, FRACT. LC/MS/MS, 24 HR UR INE 10/06/2024 METANEPHRINES, FRACT, FREE, LC/MS/MS, PL ASMA 11/09/2024 METANEPHRINES, FRACT, FREE, LC/MS/MS, PL ASMA 10/06/2024 TRYPTASE 11/09/2024 TRYPTASE 10/06/2024 TRYPTASE 08/10/2024 COMPLEMENT COMPONENT C4C 08/10/2024 VMA, 24-HOUR URINE 10/06/2024 HOMOVANILLIC ACID, 24-HR URINE 5-HIAA, 24-HOUR URINE 10/06/2024 HISTAMINE, 24 HOUR URINE 10/06/2024 LEUKOTRIENE E4, URINE 10/06/2024 N METHYLHISTAMINE, 24 HOUR, URINE 2024 Insurance Providers Payer Name Payer Address Payer Phone Subscriber Number Group Number Insured Name Patient Relationship to Insured Coverage Start Date Coverage End Date [employer] [address] [address] [place] [address] [id number] Gege Vidal Self - patient is [...]
--- OUTSIDE RECORDS SUMMARY | 2024-11-11 18:03 | XMS_ITS | Clinical Summary ---
Author Organization [facility] Address [address] [place] [address] Care Team Providers Care Cake Mixer Name Role Phone Eris Vu MD Primary Care Provider [phone] Allergies Active Allergy Reactions Criticality Noted Date [...] this topic Medical Devices Implanted Type Area Legend Maker Device Identifier Shelf Expiration Date Model / Serial / Lot Tecnis 1-Piece Iol Implanted:Qty: 1 on 06/08/2024 by Jadon Vu MD at [facility] Left: Eye [employer] 10/27/2026 / [id number] / Insurance MEDICAID Care Teams Cake Mixer Relationship Specialty Start Date End Date Eris Vu MD [address] [place] [address] PCP - General FAMILY PRACTICE 06/05/24
--- OUTSIDE RECORDS SUMMARY | 2024-11-11 18:03 | XMS_ITS | Clinical Summary ---
Author Organization [facility] Address [address] [place] [address] Care Team Providers Care Portfolio Specialist Name Role Phone Dominic Fernando MD Primary Care Provider [phone] Allergies Active Allergy Reactions Criticality Noted Date [...] mcg tablet Take 112 mcg by mouth team leader before breakfast. 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 Gender Identity Not on file Sexual Orientation Not on file Obstetrics History Last Filed Vital Signs Vital Sign Reading Time Taken Comments Blood Pressure 98/64 10/02/2019 8:21 AM JUNIOR LINUX SYSTEMS ADMINISTRATOR Pulse 55 10/02/2019 8:21 AM JUNIOR LINUX SYSTEMS ADMINISTRATOR Temperature 37.1 C (98.8 F) 11/24/2018 12:06 PM CDT Respiratory Rate 16 11/24/2018 12:06 PM CDT Oxygen Saturation 98% 11/24/2018 12:06 PM CDT Inhaled Oxygen Concentration - - Weight 80.4 kg (177 lb 3.2 oz) 10/02/2019 8:21 A M JUNIOR LINUX SYSTEMS ADMINISTRATOR Height 165.1 cm (5' 5 ) 10/02/2019 8:21 AM JUNIOR LINUX SYSTEMS ADMINISTRATOR Body Mass Index 29.49 10/02/2019 8:21 AM JUNIOR LINUX SYSTEMS ADMINISTRATOR Plan of Treatment Not on file Medical Devices Implanted Type Area Tool Radial Drill Press Set Up Operator Device Identifier Shelf Expiration Date Model / Serial / Lot [employer] Nephew[employer]Rich[employer]/Or tho [id number] Legion 9mm Dished Knee 3-4 Insert Tibial Xlpe - [id number] Implanted:Qty: 1 on 11/11/2018 by Kemal Wright MD at [facility] Right: Knee [employer]Or tho 08/11/2028 [id number] / / [id number] [employer]Or tho [id number] 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 Taper Knee Right 4 Baseplate Tibial Titanium - [id number] Implanted:Qty: 1 on 11/11/2018 by Kemal Wright MD at [facility] Right: Knee [employer]Rich[employer]Or tho 07/18/2028 [id number] / / [id number] Size 4 Right Cruciate Retaining Legion Oxinium Femoral Componenet Implanted:Qty: 1 on 11/11/2018 by Kemal Wright MD at [facility] Right: Knee Islas [employer] Nephew [id number] 01/06/2028 [id number] / / [id number] [employer] [id number] Palacos R+G High Viscosity Cement Bone Gentamicin Arthroplasty - [id number] Implanted:Qty: 1 on 11/11/2018 by Kemal Wright MD at [facility] Right: Knee [employer] 04/15/2021 [id number] / / [id number] Insurance MEDICARE [facility] MEDICARE [facility] Advance Directives For more information, please contact: [phone] * Full Code (Latest Code Status on File) Date Activated Date Inactivated Comments 11/14/2018 1:26 PM 11/15/2018 7:15 PM * Full Code Date Activated Date Inactivated Comments 11/13/2018 10:00 AM 11/14/2018 1:16 PM per patient request * Full Code Date Activated Date Inactivated Comments 11/11/2018 7:40 PM 11/12/2018 8:26 PM Care Teams Portfolio Specialist Relationship Specialty Start Date End Date Dominic Fernando MD [address] [facility] [address] [facility] [address] [place] [id number] PCP - General 08/13/17
--- OUTSIDE RECORDS SUMMARY | 2024-11-11 18:03 | XMS_ITS | Referral Summary ---
Author Organization [facility] Address [address] [place] [address] Care Team Providers Care Replenisher Name Role Phone Dominic Fernando MD Primary Care Provider [phone] Allergies Active Allergy Reactions Criticality Noted Date [...] mcg tablet Take 112 mcg by mouth beam worker before breakfast. 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 Gender Identity Not on file Sexual Orientation Not on file Last Filed Vital Signs Vital Sign Reading Time Taken Comments Blood Pressure 98/64 10/02/2019 8:21 AM DATA CENTER SOLUTIONS ARCHITECT Pulse 55 10/02/2019 8:21 AM DATA CENTER SOLUTIONS ARCHITECT Temperature 37.1 C (98.8 F) 11/24/2018 12:06 PM CDT Respiratory Rate 16 11/24/2018 12:06 PM CDT Oxygen Saturation 98% 11/24/2018 12:06 PM CDT Inhaled Oxygen Concentration - - Weight 80.4 kg (177 lb 3.2 oz) 10/02/2019 8:21 A M DATA CENTER SOLUTIONS ARCHITECT Height 165.1 cm (5' 5 ) 10/02/2019 8:21 AM DATA CENTER SOLUTIONS ARCHITECT Body Mass Index 29.49 10/02/2019 8:21 AM DATA CENTER SOLUTIONS ARCHITECT Plan of Treatment Not on file Medical Devices Implanted Type Area Telecom Coordinator Device Identifier Shelf Expiration Date Model / Serial / Lot Is[employer] Nephew/Richco/Or tho [id number] Legion 9mm Dished Knee 3-4 Insert Tibial Xlpe - [id number] Implanted:Qty: 1 on 11/11/2018 by Kemal Wright MD at [facility] Right: Knee [employer]Or tho 08/11/2028 [id number] / / [id number] [employer]Or tho [id number] 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 Taper Knee Right 4 Baseplate Tibial Titanium - [id number] Implanted:Qty: 1 on 11/11/2018 by Kemal Wright MD at [facility] Right: Knee [employer]Or tho 07/18/2028 [id number] / / [id number]- Size 4 Right Cruciate Retaining Legion Oxinium Femoral Componenet Implanted:Qty: 1 on 11/11/2018 by Kemal Wright MD at [facility] Right: Knee [employer]hew [id number] 01/06/2028 [id number] / / [id number] [employer] [id number] Palacos R+G High Viscosity Cement Bone Gentamicin Arthroplasty - [id number] Implanted:Qty: 1 on 11/11/2018 by Kemal Wright MD at [facility] Right: Knee [employer] 04/15/2021 [id number] / / [id number] Insurance MEDICARE IDND MEDICARE IDND Advance Directives For more information, please contact: [phone] * Full Code (Latest Code Status on File) Date Activated Date Inactivated Comments 11/14/2018 1:26 PM 11/15/2018 7:15 PM * Full Code Date Activated Date Inactivated Comments 11/13/2018 10:00 AM 11/14/2018 1:16 PM per patient request * Full Code Date Activated Date Inactivated Comments 11/11/2018 7:40 PM 11/12/2018 8:26 PM Care Teams Replenisher Relationship Specialty Start Date End Date Dominic Fernando MD [address] [facility] [address] [place] [address] PCP - General 08/13/17
--- OUTSIDE RECORDS SUMMARY | 2024-11-11 18:03 | XMS_ITS ---
Author Organization [facility] Address [address] [place] [address] Care Team Providers Care Scanner Supervisor Name Role Phone Boris Mcnair Primary Care Provider Breann Zuniga [phone] Eris Vu Unavailable Unavailable REASON FOR VISIT Chronic care management Encounters Encounter Location Date Provider Diagnosis [facility] [address] [place] [address] 11/02/2024 Breann Chavira Plan Of Treatment No Information Progress Notes * Gege VIDALDOB:1960 (64 yo F)Acc No.[id number]:11/02/2024 Patient: Gege MADERA :1960 A ge:64 Y S ex:Female Address[address] [place], [address] * true * Date: Generated for Neal gonzalez/Randall/eTransmitting on: 0 11/11/2024 06:02 PM 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
--- OUTSIDE RECORDS SUMMARY | 2024-11-11 18:03 | XMS_ITS ---
Author Organization [facility] Address [address] [place] [address] Care Team Providers Care Senior Sustainability Advisor Name Role Phone Boris Mcnair Primary Care Provider Breann Zuniga [phone] Eris Vu Unavailable Unavailable REASON FOR VISIT Chronic care management Encounters Encounter Location Date Provider Diagnosis [facility] [address] [place] [address] 11/09/2024 Breann Chavira Plan Of Treatment No Information Progress Notes * Gege VIDALDOB:1960 (64 yo F)Acc No.[id number]:11/09/2024 Patient: Gege MADERA :1960 A ge:64 Y S ex:Female Address:[address] [place], [address] * true * Date: Generated for Neal gonzalez/Randall/eTransmitting on: 0 11/11/2024 06:03 PM DIAPER MACHINE TENDER
--- OUTSIDE RECORDS SUMMARY | 2024-11-11 18:03 | XMS_ITS | Patient Health Record ---
Author Organization [email or web address] [facility] Address [address], [place] [address] Care Team Providers Care Slp Name Role Phone Tanner Reid MD Primary [...] finger, initial encounter (S63.631A) 023 Active confirmed [id number] Problem Fall on same level from slipping, tripping and stumbling without subsequent striking against object, initial encounter (W01.0XXA) 023 Active confirmed [id number] Problem Encounter for other specified surgical aftercare (Z48.89) Active confirmed Postoperative c are ([id number]) PLAN OF TREATMENT No Information Insurance Providers Payer Name Payer Address Payer Phone Subscriber Number Group Number Insured Name Patient Relationship to Insured Coverage Start Date Coverage End Date [employer] Medicare Advantage PPO [address] [address] [place] [address] [id number] Gege Vidal Self - patient is the insured MEDICAL (GENERAL) HISTORY Medical History History ICD Code Hypothyroidism Surgical History Surgery Date(Month/Year) right knee arthroscopy tubal ligation tonsillectomy hysterectomy neck right knee arthroscopy shoulder arthroscopy, right x2
--- OUTSIDE RECORDS SUMMARY | 2024-11-11 18:03 | XMS_ITS | CONTINUITY OF CARE DOCUMENT ---
Author Name keke davies Address Unknown Organization [facility] Address [address] [place] [address] Phone [phone] Care Team Providers Care Powerhouse Helper Name Role Phone Vin Tay MD Unavailable [phone] INSURANCE PROVIDERS Payer name Policy type / Coverage type [place] red green party ID [id number] PAY [id number]
== END 2024-11-11 15:38 | disposition home or self-care (01) ==
PROVIDERS: PCP Internal Medicine; Visit Provider Nurse Practitioner
DX: J98.9 Respiratory disorder, unspecified (principal); J44.9 Chronic obstructive pulmonary disease, unspecified
CPT/HCPCS: 71046

== ENCOUNTER 2024-11-12 10:28 | Inpatient (IN) | payer MEDICARE, MEDICAID, SELFPAY ==
[2024-11-12] VITALS (26 sets, daily range): BP systolic 102–120; BP diastolic 34–66; PULSE 63–126; RESP 16–36; TEMP 36.4–37.4; O2SAT 88–100; BMI 29.4
--- NOTE | ~2024-11-12 | XR_ITS ---
EXAMINATION: XR chest 2V DATE: 11/12/2024 11:44 INDICATION: Shortness of breath. TECHNIQUE: Frontal and lateral views of the chest were obtained. COMPARISON: Chest 2 views 11/11/2024 FINDINGS: There is no pneumonia, pleural effusion, or pneumothorax. The heart size is normal. There a re changes of anterior fusion procedure in cervical spine. IMPRESSION: 1. No acute cardiopulmonary disease. Reviewed, dictated and finalized at location A. [employer]
--- NOTE | 2024-11-12 11:17 | ECG_ITS ---
Test Date: 2024-11-12 12:03:06 Measurements Intervals [place] Rate: 102 P: 81 [place]: 171 QRS: 48 QRSD: 85 T: 75 QT: 327 QTc: 427 Interpretive Statements SINUS TACHYCARDIA POSSIBLE RIGHT VENTRICULAR CONDUCTION DELAY DELAYED PRECORDIAL R/S TRANSITION BORDERLINE ECG Compared to ECG 06/30/2024 12:36:47 HEART RATE HAS INCREASED Electronically Signed On 11-12-2024 12:07:40 STATISTICAL ANALYST by Brandon Wolf D.O.
--- OUTSIDE RECORDS SUMMARY | 2024-11-12 11:32 | XMS_ITS ---
Author Organization [facility] Address [address] [place] [address] Care Team Providers Care Antenna Installer Name Role Phone Boris Mcnair Primary Care Provider Breann Zuniga [phone] Eris Vu Unavailable Unavailable REASON FOR VISIT Chronic care management Encounters Encounter Location Date Provider Diagnosis [facility] [address] [place] [address] 11/02/2024 Breann Chavira Plan Of Treatment No Information Progress Notes * Gege VIDALDOB:1960 (64 yo F)Acc No.[id number]:11/02/2024 Patient: Gege MADERA :1960 A ge:64 Y S ex:Female Address:[place], [address] * true * Date: Generated for Neal gonzalez/Randall/eTtamismitting on: 0 11/12/2024 11:32 AM JDE DEVELOPER
--- OUTSIDE RECORDS SUMMARY | 2024-11-12 11:32 | XMS_ITS | Continuity of Care Document ---
Author Organization [facility] Address [address] [place] [address] Phone Care Team Providers Care Learning Specialist Name Role Phone Unavailable Unavailable Unavailable Advance Directives Directive Yes / No Effective Date File Name No Information Encounters Encounter Description Practice Location Reason(s) For Visit Diagnoses Date Provider Providers Copied on Encounter [facility], [address], [place], [place], [id number], [place] tel:[phone] [facility] No Information Mar-1 6-200 0 No Information [...]
--- OUTSIDE RECORDS SUMMARY | 2024-11-12 11:32 | XMS_ITS | Clinical Summary ---
Author Organization [facility] Node Management Address [address] [place] [address] Care Team Providers Care Office 365 Consultant Name Role Phone Boris Mcnair DO Primary Care Provider [phone] Source Comments [facility],non-owned Affiliates and Associated Physician Practices is amultiple site organization consisting of ambulatory clinics and hospital sitesin [place], [place], [place] and [place]. This disclosure is being madepursuant to the Care Everywhere program and may not contain all information available regarding this patient. Last updated 18.[facility] Allergies Active Allergy Reactions Criticality Noted Date [...] MG tablet 10/09/2018 Active Cholecalciferol (VITAMIN D3) 50948 units capsule Active Active Problems Problem Noted [...] 10:49 AM CDT Height 160 cm (5' 3) 04/02/2019 10:49 AM CDT Body Mass Index [...] - 26 mg/dL 02/07/2018 1:22 PM CDT [facility] Creatinine 1.0 0.6 - 1.2 mg/dL 02/07/2018 1:22 PM [facility] Sodium 136 136 - 145 mmol/L 02/07/2018 1:22 PM [facility] Potassium 3.6 3.5 - 4.5 mmol/L 02/07/2018 1:22 PM [facility] Chloride 101 98 - 107 mmol/L 02/07/2018 1:22 PM [facility] CO2 25 22 - 29 mmol/L 02/07/2018 1:22 PM [facility] Glucose 93 70 - 115 mg/dL 02/07/2018 1:22 PM [facility] Calcium 9.9 8.4 - 10.2 mg/dL 02/07/2018 1:22 PM [facility] Protein Total 7.6 6.0 - 8.3 g/dL 02/07/2018 1:22 PM [facility] Albumin 3.5 3.4 - 5.0 g/dL 02/07/2018 1:22 PM [facility] Bilirubin Total 0.7 0.2 - 1.2 mg/dL 02/07/2018 1:22 PM [facility] Alkaline Phosphatase 109 40 - 150 Units/L 02/07/2018 1:22 PM [facility] ALT 22 0 - 55 Units/L 02/07/2018 1:22 PM [facility] AST 23 5 - 34 Units/L 02/07/2018 1:22 PM [facility] Anion Gap 14 8 - 18 02/07/2018 1:22 PM [facility] BUN/Creatinine Ratio 8 7 - 23 02/07/2018 1:22 PM [facility] Osmolality Calculated 280 270 - 300 mOsm/kg 02/07/2018 1:22 PM [facility] Albumin/Globulin Ratio 0.9(L) 1.1 - 2.3 02/07/2018 1:22 PM [facility] eGFR 57(L) >60 mL/min/1.7 3 m2 02/07/2018 1:22 PM [facility] Blood BLOOD SPECIMEN / Unknown Lab Venipuncture / Unknown 02/07/2018 12:50 PM CDT 02/07/2018 12:55 PM T Ester Barajas DO LAB - CHEMISTRY ORD ERABLES [facility] [address] [phone] from Last 3 Months or Most Recently Relevant to Health Maintenance Insurance Payer Benefit Plan / Group Subscriber ID Effective Dates Phone Address Type UHC MANAGED MEDICARE ADV C MEDICARE ADV [id number] Effective for all dates [address] [address] [place] [address] Medicare-[place] naged Care MEDICAID SPEND[facility] MEDICAID SPENDDOWN [facility] [id number] Effective for all dates [address] [place] [address] Medicaid SELF PAY NO INSURANCE SELF PAY NO INSURANCE Effective for all dates [place], [place] Self Pay [facility] MANAGED MEDICARE ADV [facility] STATE RETIREES MEDICARE ADV [id number] 09/17/2024-Pres ent [address] [address] [place] [address] Medicare-[place] naged Care MEDICAID SP[employer] MEDICAID SP[employer]DOWN [facility] Effective for all dates [address] [place] [address] Medicaid UHC MANAGED MEDICARE ADV [facility] STATE RETIREES MEDICARE ADV [id number] 09/17/2024-Pres ent [address] [address] [place] [address] Medicare-[place] naged Care MEDICAID SP[employer]DOWN [facility] MEDICAID SP[employer]DOWN [facility] Effective for all dates [address] [place] [address] Medicaid UHC MANAGED MEDICARE ADV [facility] STATE RETIREES MEDICARE ADV [id number] 09/17/2024-Pres ent [address] [address] [place] [address] Medicare-[place] naged Care MEDICAID [employer] MEDICAID SP[employer] [facility] Effective for all dates [address] [place] [address] Medicaid UHC MANAGED MEDICARE ADV [facility] STATE RETIREES MEDICARE ADV [id number] 09/17/2024-Pres ent [address] [address] [place] [address] Medicare-[place] naged Care MEDICARE WPS MEDICARE PART B [id number] 04/16/2013-Pres ent [address] [address] [place] [address] Medicare MEDICAID - OUT OF [facility] MEDICAID - [facility] [id number] 03/24/2022-Pres ent [address] [address] [place] [address] Medicaid MEDICARE MEDICARE PART A AND B [id number] 04/16/2013-Pres ent [address] [place] [address] Medicare Advance Directives * Full Code (Latest Code Status on File) Date Activated Date Inactivated Comments 02/15/2018 8:10 AM 02/15/2018 12:04 PM * Full Code Date Activated Date Inactivated Comments 02/14/2018 7:57 AM 02/14/2018 6:16 PM Care Teams Office 365 Consultant Relationship Specialty Start Date End Date Boris Mcnair DO [address] [place], [place] [id number] PCP - General 04/07/19
--- OUTSIDE RECORDS SUMMARY | 2024-11-12 11:32 | XMS_ITS | CONTINUITY OF CARE DOCUMENT ---
Author Name keke davies Address Unknown Organization [facility] Address [address] [place] [address] Phone [phone] Care Team Providers Care Sole Stainer Name Role Phone Vin Tay MD Unavailable [phone] INSURANCE PROVIDERS Payer name Policy type / Coverage type [place] red democrat ID [id number] PAY [id number]
--- OUTSIDE RECORDS SUMMARY | 2024-11-12 11:32 | XMS_ITS | Patient Health Summary ---
Author Organization [facility] Address [address] [place] [address] Care Team Providers Care Overage Shortage And Damage Clerk Name Role Phone Boris Mcnair Primary Care Provider [phone] Note from [facility],non-owned Affiliates and Associated Physician Practices is amultiple site organization consisting of ambulatory clinics and hospital sitesin [place], [place], [place] and [place]. This disclosure is being madepursuant to the Care Everywhere program and may not contain all information available regarding this patient. Last updated 18.[facility] Allergies * Adhesive Sensitivity(Other) -Medium Criticality [...] MG tablet(Started 10/09/2018) * Cholecalciferol (VITAMIN D3) 14221 units capsule Active Problems Problem Noted Date [...] Deshaun Boland MD - 04/02/2019 Heather James SENIOR COMMERCIAL LOAN OFFICER-COVERING MACHINE TENDER VASCULAR LAB OR DERABLES * VAS CAROTID DUPLEX BILATERAL (04/02/2019 9:18 AM CDT) Only the most recent of2 resultswithin the time period is included. Anatomical Region Laterality Modality Intravascular Ul trasound 04/02/2019 8:18 AM CDT Narrative Procedure Note Deshaun Boland MD - 04/02/2019 Too Lara MD VASCULAR LAB ORDERAB LES * CARDIAC EKG ORDER (08/04/2018 12:01 PM RAIL ENGINEER) Only the most recent of2 resultswithin the time period is included. Narrative 08/04/2018 12:01 PM RAIL ENGINEER Ordered by an unspecified provider. Scanned Document CARDIAC SERVICES ORD ERABLES * ACT - POCT (IP) [facility] (02/14/2018 12:55 PM CDT) Only the most recent of2 resultswithin the time period is included. Activated Clotting Time 255 sec [facility] POCT TESTING Blood BLOOD SPECIMEN / Unknown 02/14/2018 12:55 PM CDT Kevin Bower MD LAB - POINT OF CARE ORDERABLES [facility] POCT TESTING [address] [phone] * PREPARE (CROSSMATCH) RBC UNIT(S), 2 Units (02/14/2018 9:11 AM CDT) Unit Description LR Red Cells [facility] BLOOD BANK LAB Unit ABO O [facility] BLOOD BANK LAB Unit Rh POS [facility] BLOOD BANK LAB Product Code RL1 [facility] BLO OD BANK LAB Unit Donor # [id number] [facility] BLOOD BANK LAB Unit Status released [facility] BLOO D BANK LAB Product Number [id number] [facility] B LOOD BANK LAB Blood Type Barcode 5100 [facility] BLOOD BANK LAB Unit Description LR Red Cells [facility] BLOOD BANK LAB Unit ABO O [facility] BLOOD BANK LAB Unit Rh POS [facility] BLOOD BANK LAB Product Code RL3 [facility] BLO OD BANK LAB Unit Donor # [id number] [facility] BLOOD BANK LAB Unit Status released [facility] BLOO D BANK LAB Product Number [id number] [facility] B LOOD BANK LAB Blood Type Barcode 5100 [facility] BLOOD BANK LAB Blood Bank BLOOD SPECIMEN / Unknown 02/14/2018 9:11 AM CDT 02/14/2018 9:11 AM CDT Ester Barajas DO LAB - BLOOD BANK OR DERABLES Performing Organization Address [facility]/ZIP Co de Phone Number [facility] BLOOD BANK LAB [address] [place] [address] * TYPE + SCREEN PANEL (02/14/2018 9:05 AM CDT) Antibody Screen NEG 8 9:58 AM CDT [facility] BLOOD BANK LAB ABO Rh O POS 02/14/2018 9:58 AM CDT [facility] BLOOD BANK LAB Blood Bank BLOOD SPECIMEN / Unknown Venipuncture / Unknown 02/14/2018 9:05 AM CDT 02/14/2018 9:10 AM CDT Paulina Andujar SENIOR COMMERCIAL LOAN OFFICER-SERVICE TECH/WELDER LAB - BLOOD BA NK ORDERABLES Performing Organization Address [facility] Co de Phone Number [facility] BLOOD BANK LAB [address] [place] [address] * (ABNORMAL) PTT [facility] (02/07/2018 12:50 PM CDT) APTT 42.0(H) 23.0 - 38.4 Seconds 02/07/2018 1:16 PM CDT [facility] Comment: Suggested therapeutic range for full dose I.V. heparin therapy for venous thromboembolism is 66.0-91.0 seconds. Blood BLOOD SPECIMEN / Unknown Lab Venipuncture / Unknown 02/07/2018 12:50 PM CDT 02/07/2018 12:55 PM CDT Ester Barajas DO LAB - COAGULATION O RDERABLES Performing Organization Address City/[facility]/ZIP Co de Phone Number [facility] LABORATORY [address] [phone] * (ABNORMAL) PT-INR [facility] (02/07/2018 12:50 PM CDT) PT 19.0(H) 12.1 - 14.8 Seconds 02/07/2018 1:15 PM CDT [facility] INR 1.6 See [...] LAB - COAGULATION O RDERABLES [facility] [address] [phone] * CBC W AUTO DIFFERENTIAL (02/07/2018 12:50 PM CDT) WBC 8.0 3.5 - 10.5 10 3/uL 02/07/2018 1:01 PM [facility] RBC 4.82 3.90 - 5.00 10 6/uL 02/07/2018 1:01 PM [facility] Hemoglobin 13.6 12.0 - 15.5 g/dL 02/07/2018 1:01 PM [facility] Hematocrit 40.6 35.0 - 45.0 % 02/07/2018 1:01 PM [facility] MCV 84.2 81.0 - 97.0 fL 02/07/2018 1:01 PM [facility] MCH 28.2 28.0 - 34.0 pg 02/07/2018 1:01 PM [facility] MCHC 33.5 32.0 - 36.0 g/dL 02/07/2018 1:01 PM [facility] Platelet Count 292 150 - 400 10 3/uL 02/07/2018 1:01 PM [facility] RDW-SD 39.7 36.0 - 50.0 fL 02/07/2018 1:01 PM [facility] RDW-CV 12.9 11.2 - 14.8 % 02/07/2018 1:01 PM [facility] MPV 10.3 9.3 - 12.8 fL 02/07/2018 1:01 PM [facility] Neutrophils % 64.9 35.0 - 70.0 % 02/07/2018 1:01 PM [facility] Lymphocytes % 25.9 19.7 - 55.1 % 02/07/2018 1:01 PM [facility] Monocytes % 6.3 3.0 - 15.0 % 02/07/2018 1:01 PM [facility] Eosinophils % 2.6 0.0 - 6.0 % 02/07/2018 1:01 PM [facility] Basophil % 0.3 0.0 - 1.5 % 02/07/2018 1:01 PM [facility] Neutrophils Absolute 5.2 1.6 - 7.0 10 3/uL 02/07/2018 1:01 PM [facility] Lymphocyte Absolute 2.1 0.8 - 2.9 10 3/uL 02/07/2018 1:01 PM [facility] Monocytes Absolute 0.50 0.14 - 0.66 10 3/uL 02/07/2018 1:01 PM [facility] Eosinophils Absolute 0.21 0.00 - 0.22 10 3/uL 02/07/2018 1:01 PM [facility] Basophils Absolute 0.02 0.00 - 0.06 10 3/uL 02/07/2018 1:01 PM [facility] Immature Granulocytes % 0.3 0.0 - 1.0 % 02/07/2018 1:01 PM [facility] Blood BLOOD SPECIMEN / Unknown Lab Venipuncture / Unknown 02/07/2018 12:50 PM CDT 02/07/2018 12:55 PM CDT Ester Barajas DO LAB - HEMATOLOGY OR DERABLES [place] [address] [address] [phone] * (ABNORMAL) COMPREHENSIVE METABOLIC PANEL (02/07/2018 12:50 PM CDT) BUN 8 7 - 26 mg/dL 02/07/2018 1:22 PM [facility] Creatinine 1.0 0.6 - 1.2 mg/dL 02/07/2018 1:22 PM [facility] Sodium 136 136 - 145 mmol/L 02/07/2018 1:22 PM [facility] Potassium 3.6 3.5 - 4.5 mmol/L 02/07/2018 1:22 PM [facility] Chloride 101 98 - 107 mmol/L 02/07/2018 1:22 PM [facility] CO2 25 22 - 29 mmol/L 02/07/2018 1:22 PM [facility] Glucose 93 70 - 115 mg/dL 02/07/2018 1:22 PM [facility] Calcium 9.9 8.4 - 10.2 mg/dL 02/07/2018 1:22 PM [facility] Protein Total 7.6 6.0 - 8.3 g/dL 02/07/2018 1:22 PM [facility] Albumin 3.5 3.4 - 5.0 g/dL 02/07/2018 1:22 PM [facility] Bilirubin Total 0.7 0.2 - 1.2 mg/dL 02/07/2018 1:22 PM [facility] Alkaline Phosphatase 109 40 - 150 Units/L 02/07/2018 1:22 PM [facility] ALT 22 0 - 55 Units/L 02/07/2018 1:22 PM [facility] AST 23 5 - 34 Units/L 02/07/2018 1:22 PM [facility] Anion Gap 14 8 - 18 02/07/2018 1:22 PM [facility] BUN/Creatinine Ratio 8 7 - 23 02/07/2018 1:22 PM [facility] Osmolality Calculated 280 270 - 300 mOsm/kg 02/07/2018 1:22 PM [facility] Albumin/Globulin Ratio 0.9(L) 1.1 - 2.3 02/07/2018 1:22 PM [facility] eGFR 57(L) >60 mL/min/1.7 3 m2 02/07/2018 1:22 PM [facility] Blood BLOOD SPECIMEN / Unknown Lab Venipuncture / Unknown 02/07/2018 12:50 PM CDT 02/07/2018 12:55 PM CDT Ester K Karl DO LAB - CHEMISTRY ORD ERABLES Performing Organization Address City/[facility]/ZIP Co de Phone Number [facility] [address] [phone] * EKG 12-LEAD (02/07/2018 10:08 AM CDT) Ventricular Rate 57 BPM [facility] MUSE Atrial Rate 57 BPM [facility] MUSE P-R Interval 206 ms H MUSE QRS Duration ms 84 ms H MUSE Q-T Interval ms 428 ms [facility] MUSE QTC Calculation (Bezet) 416 ms [facility] MUSE Calculated P Husser 70 degrees [facility] MUSE Calculated R Husser 23 degrees [facility] MUSE Calculated T Husser 60 degrees [facility] MUSE Interpretation EKG Sinus bradycardia~Po or R wave progression in precordial leads~Otherwis e normal ECG~No previous ECGs available~Conf irmed by Ancelmo KISER, JEVON ([id number]), manuscript editor AMOS MCCLENDON ([id number]) on 02/13/2018 1:47:34 PM [facility] MUSE 02/07/2018 10:0 8 AM CDT 02/13/2018 1:47 PM CDT Ester Haresh Barajas DO ECG ORDERABLES Performing Organization Address [facility] Co de Phone Number [facility] MUSE * XR LUMBAR SPINE 4+ VW (08/19/2014 3:54 AM RAIL ENGINEER) Anatomical Region Laterality Modality Spine Radiographic Yulisa ging 08/19/2014 7:39 AM RAIL ENGINEER Impressions 08/19/2014 8:06 AM RAIL ENGINEER Mild degenerative changes. Edited by Juanita Odonnell on 08/19/2014 7:51 AM Narrative 08/19/2014 8:06 AM RAIL ENGINEER LUMBAR SPINE 5 VIEWS INDICATION: Low back [...] SHOULDER 2+ VW RIGHT (08/19/2014 3:54 AM RAIL ENGINEER) Anatomical Region Laterality Modality Upper Extremity Radiographic Yulisa ging 08/19/2014 8:04 AM RAIL ENGINEER Impressions 08/19/2014 8:04 AM RAIL ENGINEER No fracture. Narrative 08/19/2014 8:04 AM RAIL ENGINEER Right shoulder 2 views unilateral Indication: Right [...] MD DIAGNOSTIC IMAGING O RDERABLES Care Teams Overage Shortage And Damage Clerk Relationship Specialty Start Date End Date Boris Mcnair DO [address] [place] [address] PCP - General 04/07/19
--- OUTSIDE RECORDS SUMMARY | 2024-11-12 11:32 | XMS_ITS | Patient Health Record ---
Author Organization [facility] Address [address] [place] [address] Care Team Providers Care Librarian Specialist Name Role Phone Boris Mcnair Primary Care Provider UnavailBreann Wing Unavailable [phone] Eris Vu Unavailable Unavailable Franky Gray Unavailable [phone] Allergies Allergen (clinical drug ingredient) Drug/Non Drug [...] 30 days Any adult spacer Active Nystatin 154054 UNIT/GM 1 application Externally Twice a day [...] Status Risk Notes Problem Allergy to penicillin (99180903) Allergy status to penicillin (Z88.0) Active confirmed Problem Eruption of skin (006002841) Rash and other nonspecific skin eruption (R21) Active confirmed Problem Carotid artery syndrome hemispheric (891672251) Carotid artery syndrome (hemispheric) (G45.1) Active confirmed Problem Heart disease (41867109) Other heart disorders in diseases classified elsewhere (I52) Active confirmed Problem Chronic rhinitis (21407145) Chronic rhinitis (J31.0) Active confirmed Problem Hypertrophy of nasal turbinates (61125358) Hypertrophy of nasal turbinates (J34.3) Active confirmed Problem Urticaria (095614925) Other urticaria (L50.8) Active confirmed Problem Fibromyalgia (491294326) Fibromyalgia (M79.7) Active confirmed Problem Swelling of head (554974635) Localized swelling, mass and lump, head (R22.0) Active confirmed Problem Toxic effect of venom (74797990) Toxic effect of venom of bees, accidental (unintentional), initial encounter (T63.441A) Active confirmed Problem Shortness of breath (370712974) Shortness of breath (R06.02) Active confirmed Problem Drug allergy (487647908) Allergy status to unspecified drugs, medicaments and biological substances (Z88.9) Active confirmed Vital Signs Oximetry 95 % 11/09/2024 Blood pressure diastolic 74 mm Hg 11/09/2024 Height 64 in 11/09/2024 Blood pressure systolic 113 mm Hg 11/09/2024 Weight 180.2 lbs 11/09/2024 BMI 30.93 kg/m2 11/09/2024 Encounters Encounter Location Date Provider Diagnosis [facility] [address] [place] [address] 11/09/2024 Breann Chavira Localized swelling, mass and [...] blood-pressure reading, without diagnosis of hypertension R03.0 [facility] [address] [place] [phone] 08/10/2024 Breann Chavira Localized swelling, mass and [...] heart disorders in diseases classified elsewhere I52 [facility] [address] [place] [phone] 10/06/2024 Breann Chavira Localized swelling, mass and [...] blood-pressure reading, without diagnosis of hypertension R03.0 [facility] [address] [place] [phone] 09/29/2024 Breann HERNANDEZ [facility] [address] [place] [address] 11/02/2024 Breann HERNANDEZ [facility] [address] [place] [address] 11/09/2024 Breann Chavira Assessments Encounter Date Diagnosis [...] plans below. - Will request records from [facility], as well as from her install and repair technician. - Follow-up in 4 weeks for laboratory [...] as she would like to go to [facility]. - Will request records from [facility], as well as from her install and repair technician. Still awaiting. - Follow-up in 4 weeks [...] beer without issue. She was treated at [facility], she did not receive epinephrine or use [...] request records. - Will request records from [facility], as well as from her install and repair technician. Still awaiting. - Follow-up in 4 weeks [...] as she would like to go to [facility] 08/10/2024 Other urticaria (ICD-10 - L50.8) Also [...] down information of Dr. Joshua's office as eGge prefers to go to [facility]. Will obtain full PFT with [employer] device [...] office as Gege prefers to go to [facility]. Will obtain full PFT with [employer] device [...] Date [employer] [address] [address] [place] [address] [id number] [phone] Gege Vidal Self - patient is [...]
--- OUTSIDE RECORDS SUMMARY | 2024-11-12 11:32 | XMS_ITS ---
Author Organization [facility] Address [address] [place] [address] Care Team Providers Care Straight Edger Name Role Phone Boris Mcnair Primary Care Provider Breann Zuniga Unavailable [phone] Eris Vu Unavailable Unavailable Allergies Allergen (clinical [...] Lactobacillus - as directed Orally Not-Taking Nystatin 483676 UNIT/GM 1 application Externally Twice a day [...] 11/09/2024 Encounters Encounter Location Date Provider Diagnosis [facility] [place] [address] [place] [address] 11/09/2024 Breann Chavira Localized swelling, mass and [...] beer without issue. She was treated at [facility], she did not receive epinephrine or use [...] request records. - Will request records from [facility], as well as from her urban designer. Still awaiting. - Follow-up in 4 weeks [...] office as Gege prefers to go to [facility]. Will obtain full PFT with [employer] device [...] beer without issue. She was treated at [facility], she did not receive epinephrine or use [...] request records. - Will request records from [facility], as well as from her urban designer. Still awaiting. - Follow-up in 4 weeks [...] office as Gege prefers to go to [facility]. Will obtain full PFT with [employer] device [...] Notes * Gege VIDALDOB:1960 (64 yo F)Acc No.[id number]:11/09/2024 Progress Notes Patient: Gege MADERA Provider: VALERIE Almonte-C :1960 A ge:64 Y S ex:Female Date:11/09/2024 Address:[address] [place], [place] [id number] Pcp:Boris Mcnair Subjective: * Chief Complaints: * [...] left eye. She was seen by her urban designer, whorecommended stopping Maxitrol and started her on a prednisolone eye drop, shewas also using Refresh ocular lubricant. She was, once again, seen by her urban designer who started a different prednisoloneeye drop. Symptoms persistedand she reports the swelling worsened, due to thisshe was seen at [facility] where she was given steroids andantihistamines, also sent home on prednisone and Benadryl. She reports shecontinued to use the second prednisolone drop she was prescribed. Several dayslater she was seen once again by her urban designer, who stopped theprednisolone ocular drop and recommended [...] blood pressure,again additional details are not clear. Tryptase level was ordered at returned 8. Repeat of this level was 7.8. Gege presents today reporting that one week ago while drinking root beer she developed throat tightness and visible swelling. She went to [facility], unsure of the treatments given. She [...] without benefit. [facility]. She has never undergone allergy testing [...] on nebivolol. She lives with tanya and ptparsqw-ku-byi. Today, she reports no fevers, chills, night [...] your bedroom? Y es Do you have kuvh-cr-ayxx carpeting? Y es What is the age [...] Orally Once a day , Taking Nystatin 320349 UNIT/GM Cream 1 application Externally Twice a [...] office as Gege prefers to go to [facility]. Will obtain full PFT with [employer] device [...] Review) * Billing Information: * Visit Code: 16276 Office Visit, Est Pt., Level 4. Modifiers: 25 * Procedure Codes: 08415 PT-FOCUSED HLTH RISK ASSMT. G8427 DOC MEDS VERIFIED W/PT OR RE. * Electronic signature of Breann Chavira DNP, DAWNA-Dirk on 11/12/2024 at 11:32 AM REGULATORY AFFAIRS INTERN Sign off status: Pending * Provider: VALERIE Almonte-C Date: 0 11/09/2024 Generated for eNal Gama/Eduardo on: 0 11/12/2024 11:32 AM REGULATORY AFFAIRS INTERN History and Physical Notes * HPI (History [...] left eye. She was seen by her urban designer, who recommended stopping Maxitrol and started her on a prednisolone eye drop, she was also using Refresh ocular lubricant. She was, once again, seen by her urban designer who started a different prednisolone eye drop. [...] she was seen once again by her urban designer, who stopped the prednisolone ocular drop and [...] tightness and visible swelling. She went to [facility], unsure of the treatments given. She [...] nebivolol. She lives with her son and [id number]-ay-jvd. Today, she reports no fevers, chills, night sweats or other constitutional symptoms Examination Category Sub-Category Detail Notes Category Not es General examination HEENT: conjunctiva are oil l bilaterally Extremities: normal ROM, no clubb ing, no cyanosis, no edema General appearance: pleasant, well-devel oped, well-nourished, female, in no apparent distress, speaking in full sentences Skin: normal, no visible r sejal, dermatographism, urticaria, angioedema Neurologic exam: unremarkable Oral cavity: normal, no lesions Breasts : not performed Back: normal Genitalia: not performed
--- OUTSIDE RECORDS SUMMARY | 2024-11-12 11:32 | XMS_ITS | Referral Summary ---
Author Organization [facility] Address [address] [place] [place] [address] Care Team Providers Care Internal Medicine Specialist Name Role Phone Boris Mcnair DO Primary Care Provider [phone] Source Comments [facility],non-owned Affiliates and Associated Physician Practices is amultiple site organization consisting of ambulatory clinics and hospital sitesin [place], [place], [place] and [place]. This disclosure is being madepursuant to the Care Everywhere program and may not contain all information available regarding this patient. Last updated 18.[facility] Allergies Active Allergy Reactions Criticality Noted Date Comments Adhesive Sensitivity Other Medium 08/19/2014 Blisters Codeine Shortness of Breath High 08/19/2014 Food Other 08/19/2014 Alcohol- makes her break out in blisters Latex Urticaria,Swelling High 08/19/2014 Morphine Other High 08/19/2014 hypotension Penicillins Shortness of Breath High 08/19/2014 Vancomycin Other High 08/19/2014 Marznea's syndrome Vancomycin Other Medications * Be aware [...] MG tablet 10/09/2018 Active Cholecalciferol (VITAMIN D3) 92175 units capsule Active Active Problems Problem Noted [...] 7 - 26 mg/dL 02/07/2018 1:22 PM [facility] Creatinine 1.0 0.6 - 1.2 mg/dL 02/07/2018 1:22 PM [facility] Sodium 136 136 - 145 mmol/L 02/07/2018 1:22 PM [facility] Potassium 3.6 3.5 - 4.5 mmol/L 02/07/2018 1:22 PM [facility] Chloride 101 98 - 107 mmol/L 02/07/2018 1:22 PM [facility] CO2 25 22 - 29 mmol/L 02/07/2018 1:22 PM [facility] Glucose 93 70 - 115 mg/dL 02/07/2018 1:22 PM [facility] Calcium 9.9 8.4 - 10.2 mg/dL 02/07/2018 1:22 PM [facility] Protein Total 7.6 6.0 - 8.3 g/dL 02/07/2018 1:22 PM [facility] Albumin 3.5 3.4 - 5.0 g/dL 02/07/2018 1:22 PM [facility] Bilirubin Total 0.7 0.2 - 1.2 mg/dL 02/07/2018 1:22 PM [facility] Alkaline Phosphatase 109 40 - 150 Units/L 02/07/2018 1:22 PM [facility] ALT 22 0 - 55 Units/L 02/07/2018 1:22 PM [facility] AST 23 5 - 34 Units/L 02/07/2018 1:22 PM [facility] Anion Gap 14 8 - 18 02/07/2018 1:22 PM CDT [facility] BUN/Creatinine Ratio 8 7 - 23 02/07/2018 1:22 PM CDT [facility] Osmolality Calculated 280 270 - 300 mOsm/kg 02/07/2018 1:22 PM [facility] Albumin/Globulin Ratio 0.9(L) 1.1 - 2.3 02/07/2018 1:22 PM T [facility] eGFR 57(L) >60 mL/min/1.7 3 m2 02/07/2018 1:22 PM T [facility] Blood BLOOD SPECIMEN / Unknown Lab Venipuncture / Unknown 02/07/2018 12:50 PM CDT 02/07/2018 12:55 PM CDT Ester Barajas DO LAB - CHEMISTRY ORD ERABLES Performing Organization Address [facility]/State/[facility] Co de Phone Number [facility] [address] [phone] from Last 3 Months or Most Recently Relevant to Health Maintenance Insurance Payer Benefit Plan / Group Subscriber ID Effective Dates Phone Address Type [facility] MANAGED MEDICARE ADV [facility] MEDICARE ADV [id number] Effective for all dates [address] [address] [place] [address] Medicare-[place] naged Care [place] [facility] [id number] Effective for all dates [address] [facility] [address] [place] [address] Medicaid SELF PAY NO INSURANCE SELF PAY NO INSURANCE Effective for all dates [place], [place] Self Pay [facility] MANAGED MEDICARE ADV [facility] STATE RETIREES MEDICARE ADV [id number] 09/17/2024-Pres ent [address] [address] [place] [address] Medicare-[facility] Care [facility]ICAID [facility] Effective for all dates [address] [place] [address] Medicaid [employer] MANAGED MEDICARE ADV [facility] STATE RETIREES MEDICARE ADV [id number] 09/17/2024-Pres ent [address] [address] [place] [address] Medicare-[place] naged Care MEDICAID SP[facility] MEDICAID [place] [facility] Effective for all dates [address] [place] [address] Medicaid UHC MANAGED MEDICARE ADV [facility] STATE RETIREES MEDICARE ADV [id number] 09/17/2024-Pres ent [address] [address] [place] [address] Medicare-[place] naged Care MEDICAID [place] [facility] MEDICAID [place] [facility] Effective for all dates [address] [place] [address] Medicaid UHC MANAGED MEDICARE ADV [facility] STATE RETIREES MEDICARE ADV [id number] 09/17/2024-Pres ent [address] [address] [place] [address] Medicare-[place] naged Care MEDICARE WPS MEDICARE PART B [id number] 04/16/2013-Pres ent [address] [address] [place] [address] Medicare MEDICAID - OUT OF STATE MEDICAID - [facility] [id number] 03/24/2022-Pres ent [address] [address] [place] [address] Medicaid MEDICARE MEDICARE PART A AND B [id number] 04/16/2013-Pres ent [address] [place] [address] Medicare Advance Directives * Full Code (Latest Code Status on File) Date Activated Date Inactivated Comments 02/15/2018 8:10 AM 02/15/2018 12:04 PM * Full Code Date Activated Date Inactivated Comments 02/14/2018 7:57 AM 02/14/2018 6:16 PM Care Teams Internal Medicine Specialist Relationship Specialty Start Date End Date Boris Mcnair DO [address] [place] [address] PCP - General 04/07/19
--- NOTE | 2024-11-12 11:33 | ED_ITS ---
HPI - SOB/Dyspnea General Chief Complaint: Shortness of Breath/Dyspnea Stated Complaint: SOB, cough Time Seen by Provider: 11/12/24 11:17 Source: patient Mode of arrival: ambulatory Limitations: no limitations History of Present Illness HPI Narrative: This is a 64-year-old female that presents to the emergency department for shortness of breath. Associated with a cough. Reports she has been ill, lethargic, not wanting to eat much. Denies fevers. Related Data Home Medications ?Medication ?Instructions ?Recorded ?Confirmed ?Last Taken ?Type rivaroxaban 20 mg tablet (Xarelto) 20 mg PO DAILY 07/29/19 11/12/24 10/16/24 History folic acid 1 mg tablet 1 mg PO DAILY 08/04/19 11/12/24 10/18/24 History aspirin 81 mg chewable tablet 81 mg PO DAILY 10/06/22 11/12/24 10/18/24 History ergocalciferol (vitamin D2) 1,250 1,250 mcg PO MONTHLY 03/24/24 11/12/24 10/16/24 History mcg (50,000 unit) capsule ferrous sulfate 325 mg (65 mg 325 mg PO DAILY 03/24/24 11/12/24 10/14/24 History iron) tablet (Feosol) lactobacillus combination no.9 4 4,000 mmu cells PO DAILY 03/24/24 11/12/24 10/16/24 History billion cell capsule (Adult 50 Plus Probiotic) cholecalciferol (vitamin D3) 25 1,000 unit PO 3XW 10/13/24 11/12/24 10/16/24 History mcg (1,000 unit) capsule (Vitamin D3) cyanocobalamin (vitamin B-12) 1,000 mcg PO 3XW 10/13/24 11/12/24 10/16/24 History 1,000 mcg tablet (Vitamin B-12) Allergies Allergy/AdvReac Type Severity Reaction Status Date / Time codeine Allergy Severe Anaphylaxis Verified 11/12/24 15:51 hydromorphone Allergy Severe Blister Verified 11/12/24 15:51 latex Allergy Severe Blister Verified 11/12/24 15:51 levofloxacin Allergy Severe BLISTERS Verified 11/12/24 15:51 ON BODY morphine Allergy Severe Hypotension Verified 11/12/24 15:51 oxycodone Allergy Severe Blister Verified 11/12/24 15:51 penicillin G Allergy Severe ANAPHYLACTI Verified 11/12/24 15:51 C Penicillins Allergy Severe Anaphylaxis Verified 11/12/24 15:51 shellfish derived Allergy Severe Swelling Verified 11/12/24 15:51 of Lip/Tongue/Throat vancomycin Allergy Severe Red [place], Verified 11/12/24 15:51 Patient unsure of reaction hydrocodone Allergy Intermediate Itching Verified 11/12/24 15:51 dexamethasone (From Maxitrol) Allergy Swelling Verified 11/12/24 15:51 of the Eye neomycin (From Maxitrol) Allergy Swelling Verified 11/12/24 15:51 of the Eye polymyxin B (From Maxitrol) Allergy Swelling Verified 11/12/24 15:51 of the Eye Review of Systems 2 Review of Systems: CONSTITUTIONAL: Denies fever ENT: Reports congestion CARDIOVASCULAR: Denies chest pain RESPIRATORY: Reports cough and dyspnea. 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 GERD (gastroesophageal reflux disease) History of colon polyps Hyperlipidemia Carotid artery disease Status post left carotid endarterectomy. Hypothyroidism Dizziness CVA (cerebral vascular accident) With short-term memory loss. Mouth pain Dysphagia Adult hypothyroidism Hx of deep venous thrombosis Hyperglycemia Other and unspecified hyperlipidemia Nicotine abuse Personal history of nicotine dependence Symptomatic PVCs On metoprolol 50 milligrams daily. Vitamin B12 deficiency Vitamin D deficiency Surgical History Surgical History S/P medial meniscectomy of left knee (09/2021) Hx of tonsillectomy History of shoulder surgery History of neck surgery Hx of total knee arthroplasty Right History of arthroplasty of right knee History of left-sided carotid endarterectomy Status post cervical spinal fusion Status post right rotator cuff repair Status post tubal ligation Status post left breast biopsy Status post tonsillectomy Status post cholecystectomy Status post partial hysterectomy For cervical cancer. S/P cholecystectomy Family History Family History Mother Depression Family history of diabetes mellitus in first degree relative Diabetes mellitus Father Family history of diabetes mellitus in first degree relative Acute myocardial infarction Diabetes mellitus Sibling Hepatitis Pulmonary embolism Sibling No problems noted. Other Family history of allergic disorder Family history of cardiovascular disease Family history of malignant neoplasm Hypertension Social History Social History (Updated 11/05/24 @ 10:35 by DYLON Hendrickson) Social History: The patient is . She lives with her son in [place]. She designates her sons, Laith Howard and Kemal Islas, as her surrogate decision makers and she wishes to be a full code. She has smoked at least 1 pack of cigarettes per day for almost 40 years. She denies alcohol and drug abuse. Smoking packs per day: 1 Smoking cigarettes per day: 20.0 Years smoked: 40 Smoking pack-years: 40.00 Smoking status: Former smoker Second hand tobacco smoke exposure: Yes Alcohol intake: never Alcohol use details: reaction to ETOH Substance use: never Substance use type: does not use Do You Feel Safe in your Home?: Yes Lack of Transportation: No Lack of Food: Never True Current Housing: I Have Housing Concerned About Future Housing: No Difficulty Paying Gas/Electric Bills: No Difficulty Paying for Meds: No Currently Unemployed: No Education: High School Diploma/GED Difficulty w/ Childcare or Family Care: No Living arrangements: with family Occupation/Education: retired 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 HEAD: Normocephalic, atraumatic. EYES: EOMI. ENT: Nares clear, no rhinorrhea or epistaxis. Mucous membranes moist. Oropharynx without tonsillar hypertrophy exudate or other lesions. Bilateral TMs pearly day non-bulging NECK: Supple. No adenopathy or masses. CHEST: No respiratory distress. Lung sounds are mildly diminished with diffuse expiratory wheezing. No rales or rhonchi HEART: Regular rate and rhythm. No murmur heard. Normal peripheral pulses. EXTREMITIES: Normal range of motion. No edema. SKIN: Warm, dry, no rash. NEURO: No focal deficits. Alert and oriented x3. PSYCH: Normal mood and affect Course Course Emergency Course: Patient updated on her workup and need for admission Consultations Consultation #1: spoke with hospitalist about patient and workup, accepts admission Date: 11/12/24 Vital Signs Vital signs: Vital Signs Temperature 99.3 F 11/12/24 10:34 Pulse Rate 68 11/12/24 10:34 Respiratory Rate 20 11/12/24 10:34 Blood Pressure 115/56 L 11/12/24 10:34 Pulse Oximetry 91 11/12/24 10:34 Oxygen Delivery Room Air 11/12/24 10:34 Temperature 99.3 F 11/12/24 11:14 Pulse Rate 101 H 11/12/24 15:22 Respiratory Rate 30 H 11/12/24 15:22 Blood Pressure 107/34 L 11/12/24 15:22 Pulse Oximetry 94 11/12/24 16:05 Oxygen Delivery Nasal Cannula 11/12/24 16:05 Oxygen Flow Rate 2 11/12/24 16:05 MDM - SOB/Dyspnea MDM Narrative Medical decision making narrative: patient presents to the emergency department for cold symptoms present over the last couple of days. Patient is afebrile. Lung sounds diminished with wheezing upon arrival. Given nebulizer treatment, steroid, magnesium. She did have an oxygen desaturation into the upper 80s. Placed on 2 L nasal cannula. CBC with leukocytosis to 13.1. Metabolic panel some evidence of dehydration. Patient hydrated with a L of IV fluids in the ED. Influenza, RSV and COVID screens are negative. Chest x-ray without acute cardiopulmonary abnormality. Patient started on IV antibiotics for COPD exacerbation. Patient updated on her workup and need for admission. spoke with hospitalist about patient and workup, accepts admission Differential Diagnosis Differential diagnosis: Likely acute exacerbation of chronic obstructive airways disease, community acquired pneumonia and other ( COVID, influenza, RSV) Lab Data Attestation: I reviewed the patient's lab results. 11/12/24 11:58 11/12/24 11:58 Labs: Lab Results 11/12/24 11/12/24 Range/Units 11:30 11:58 WBC 13.1 H (4.5-10.0) K/mm3 RBC 4.82 (4.2-5.4) M/mm3 Hgb 13.2 (12.0-15.0) g/dL Hct 40.5 (37.0-47.0) % MCV 84.0 (80-100) fl MCH 27.4 (26-34) pg MCHC 32.6 (32-36) g/dl RDW 13.4 (11.5-14.5) % Plt Count 271 (150-375) k/mm3 MPV 10.2 (7.4-10.4) fl Immature Gran % (Auto) 0.5 (0-0.5) % Neut % (Auto) 83.0 H (45.5-73.1) % Lymph % (Auto) 9.2 L (18.3-44.2) % Montgomery % (Auto) 7.1 (2.6-8.5) % Eos % (Auto) 0.0 (0-4.4) % Baso % (Auto) 0.2 (0.2-1.2) % Lymph # (Auto) 1.21 (0.9-3.2) K/mm3 Montgomery # (Auto) 0.9 H (0.1-0.6) K/mm3 Eos # (Auto) 0.0 (0-0.3) K/mm3 Baso # (Auto) 0.0 (0.0-0.1) K/mm3 Abs Immat Gran (auto) 0.07 H (0.00-0.031) K/mm3 Absolute Neuts (auto) 10.9 H (1.3-6.7) K/mm3 Absolute Nucleated RBC 0.000 (0.0-0.012) K/mm3 Nucleated RBC % 0.0 (0.0-0.2) % PT 14.5 (11.1-14.7) Seconds INR 1.1 APTT 34.3 (22.3-36.8) Seconds Sodium 136 L (137-145) mmol/L Potassium 3.4 (3.4-5.0) mmol/L Chloride 99 (98-107) mmol/L Carbon Dioxide 22 (22-30) mmol/L Anion Gap 15 H (4-12) mmol/L BUN 13 (7-17) mg/dL Creatinine 1.05 H (0.7-1.0) mg/dL Estim Creat Clear Calc 49 ml/min Estimated GFR 53 L (59 - ) Glucose 111 H (65-110) mg/dL Lactic Acid 2.1 H (0.7-2.0) mmol/L Calcium 8.6 (8.4-10.2) mg/dL Total Bilirubin 1.5 H (0.2-1.3) mg/dL AST 32 (14-36) U/L ALT 26 (6-35) U/L Alkaline Phosphatase 111 (38-126) U/L Total Protein 8.0 (6.3-8.2) g/dL Albumin 3.8 (3.5-5.1) g/dL Influenza A (RT-PCR) Negative (Negative) Influenza B (RT-PCR) Negative (Negative) RSV (RT-PCR) Negative (Negative) SARS-CoV-2 RNA (RT-PCR) Negative (Negative) Imaging Data Radiologist's impression: ITS Impressions Chest X-Ray 11/12/24 11:45 IMPRESSION: 1. No acute cardiopulmonary disease. ECG Data EKG #1: ECG completion date: 11/12/24 EKG Interpretation: tachycardia, sinus rhythm, no ST changes and normal QT Critical Care Time Critical Care Time Critical Care Time: Yes Total Critical Care Time: 35 Discharge Plan Discharge Clinical Impression: Acute hypoxemic respiratory failure, COPD exacerbation Patient Disposition: Still a Patient Condition: Improved
--- OUTSIDE RECORDS SUMMARY | 2024-11-12 11:33 | XMS_ITS | Clinical Summary ---
Author Organization [facility] Address [address] [place] [address] Care Team Providers Care Salesperson Handbags Name Role Phone Eris Vu MD Primary Care Provider [phone] Allergies Active Allergy Reactions Criticality Noted Date Comments Adhesive Tape-Silicones Other (See Comments) Medium 08/19/2014 Blisters Codeine Shortness of Breath/Wheezing High 08/19/2014 Zzsqxycze-Q-Jitqfoe-Se jun-Brom Other (See Comments) Low 08/19/2014 Alcohol- [...] Data STL ABSTRACTION Provider, Abstract 11/02/[address] [facility] [place] [address] [place] [address] Chris Owens MD 10/09/[address] [facility] [place] [address] [place] [address] Chris Owens MD 10/09/[address] [facility] [place] [address] [place] [address] Chris Owens MD Surgical Clearance 10/08/2024 External Device Data STL ABSTRACTION Provider, Abstract 09/29/2024 External Device Data STL ABSTRACTION Provider, Abstract 08/25/[address] [facility] [place] [address] [place] [address] Chris Owens MD 08/20/[address] 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 [place] [address] [facility] [address] [place] [address] Chris Owens MD [address] [facility] [address] [place] [phone] Health Maintenance Due Date Last Done Comments [...] CHEST WO CONTRAST Routine 08/25/2024 12:41 PM SKI BASE TRIMMER MAMMO BILAT DIAGNOSTIC Routine 02/17/2024 1:[address] LUNG SCREENING (LDCT BASELINE OR ANNUAL) Routine 07/15/2019 Encounter for screening for lung cancer from Last 3 Months or Most Recently Relevant to Health Maintenance Results * CT CHEST WO CONTRAST (08/25/2024 12:41 PM SKI BASE TRIMMER) Anatomical Region Laterality Modality Chest Other us [...] Most Recently Relevant to Health Maintenance Insurance [facility] [id number] Care Teams Salesperson Handbags Relationship Specialty Start Date End Date Eris Vu MD PCP - General Family Practice 02/21/23
--- OUTSIDE RECORDS SUMMARY | 2024-11-12 11:33 | XMS_ITS | Clinical Summary ---
Author Organization [facility] Address [address] [place] [address] Care Team Providers Care Adjustment Supervisor Name Role Phone Eris Vu MD Primary Care Provider [phone] Allergies Active Allergy Reactions Criticality Noted Date [...] 12:05 PM CDT Height 162.6 cm (5' 4) 05/25/2024 12:05 PM CDT Body Mass Index [...] this topic Medical Devices Implanted Type Area [employer]enc[employer] Device Identifier Shelf Expiration Date Model / Serial / Lot [employer]ecnis 1-Piece Iol Implanted:Qty: 1 on 06/08/2024 by Jadon Vu MD at [facility] Left: Eye [employer] 10/27/2026 / [id number] / Insurance MEDICAID Care Teams Adjustment Supervisor Relationship Specialty Start Date End Date Eris Vu MD [address] [place] [address] PCP - General FAMILY PRACTICE 06/05/24
--- OUTSIDE RECORDS SUMMARY | 2024-11-12 11:33 | XMS_ITS ---
Author Organization [facility] Address [address] [place] [address] Care Team Providers Care Enterprise Cloud Architect Name Role Phone Boris Mcnair Primary Care Provider Breann Zuniga [phone] Eris Vu Unavailable Unavailable REASON FOR VISIT Chronic care management Encounters Encounter Location Date Provider Diagnosis [facility] [address] [place] [address] 11/09/2024 Breann Chavira Plan Of Treatment No Information Progress Notes * Gege VIDALDOB:1960 (64 yo F)Acc No.[id number]:11/09/2024 Patient: Gege MADERA :1960 A ge:64 Y S ex:Female Address:[place], [address] * true * Date: Generated for Neal gonzalez/Randall/eTtamismitting on: 0 11/12/2024 11:32 AM SPECIAL PROCEDURES NURSE
--- OUTSIDE RECORDS SUMMARY | 2024-11-12 11:33 | XMS_ITS | Patient Health Record ---
Author Organization [facility] Address [address] [facility] [address], [place] [address] Care Team Providers Care District Home Economics Agent Name Role Phone Tanner Reid MD Primary [...] finger, initial encounter (S63.631A) 023 Active confirmed [id number] Problem Fall on same level from slipping, tripping and stumbling without subsequent striking against object, initial encounter (W01.0XXA) 023 Active confirmed [id number] Problem Encounter for other specified surgical aftercare (Z48.89) Active confirmed Postoperative c are ([id number]) PLAN OF TREATMENT No Information Insurance Providers Payer Name Payer Address Payer Phone Subscriber Number Group Number Insured Name Patient Relationship to Insured Coverage Start Date Coverage End Date U[employer] Medicare Advantage PPO [address] [address] [place] [address] [id number] Gege Vidal Self - patient is the insured MEDICAL (GENERAL) HISTORY Medical History History ICD Code Hypothyroidism Surgical History Surgery Date(Month/Year) right knee arthroscopy tubal ligation tonsillectomy hysterectomy neck right knee arthroscopy shoulder arthroscopy, right x2
--- OUTSIDE RECORDS SUMMARY | 2024-11-12 11:33 | XMS_ITS | Clinical Summary ---
Author Organization [facility] Address [address] [place] [address] Care Team Providers Care Rn Ostomy Name Role Phone Dominic Fernando MD Primary Care Provider [phone] Allergies Active Allergy Reactions Criticality Noted Date [...] mcg tablet Take 112 mcg by mouth lead android developer before breakfast. 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 Gender Identity Not on file Sexual Orientation Not on file Obstetrics History Last Filed Vital Signs Vital Sign Reading Time Taken Comments Blood Pressure 98/64 10/02/2019 8:21 AM CHAIR INSTALLER Pulse 55 10/02/2019 8:21 AM CHAIR INSTALLER Temperature 37.1 C (98.8 F) 11/24/2018 12:06 PM CDT Respiratory Rate 16 11/24/2018 12:06 PM CDT Oxygen Saturation 98% 11/24/2018 12:06 PM CDT Inhaled Oxygen Concentration - - Weight 80.4 kg (177 lb 3.2 oz) 10/02/2019 8:21 A M CHAIR INSTALLER Height 165.1 cm (5' 5) 10/02/2019 8:21 AM CHAIR INSTALLER Body Mass Index 29.49 10/02/2019 8:21 AM CHAIR INSTALLER Plan of Treatment Not on file Medical Devices Implanted Type Area Rolling Mill Plugger Device Identifier Shelf Expiration Date Model / Serial / Lot [employer]Or tho [id number] Legion 9mm Dished Knee 3-4 Insert Tibial Xlpe - [id number] Implanted:Qty: 1 on 11/11/2018 by Kemla Wright MD at [facility] Right: Knee [employer]Or [employer] 08/11/2028 [id number] / / [id number] [employer]Or tho [id number] 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 Taper Knee Right 4 Baseplate Tibial Titanium - [id number] Implanted:Qty: 1 on 11/11/2018 by Kemal Wright MD at [facility] Right: Knee [employer]Or tho 07/18/2028 [id number] / / [id number]- Size 4 Right Cruciate Retaining Legion Oxinium Femoral Componenet Implanted:Qty: 1 on 11/11/2018 by Kemal Wright MD at [facility] Right: Knee [employer]hew [id number] 01/06/2028 [id number] / / [id number] [employer] [id number] Palacos R+G High Viscosity Cement Bone Gentamicin Arthroplasty - [id number] Implanted:Qty: 1 on 11/11/2018 by Kemal Wright MD at [facility] Right: Knee [employer] 04/15/2021 [id number] / / [id number] Insurance MEDICARE [facility] MEDICARE [facility] Advance Directives For more information, please contact: [phone] * Full Code (Latest Code Status on File) Date Activated Date Inactivated Comments 11/14/2018 1:26 PM 11/15/2018 7:15 PM * Full Code Date Activated Date Inactivated Comments 11/13/2018 10:00 AM 11/14/2018 1:16 PM per patient request * Full Code Date Activated Date Inactivated Comments 11/11/2018 7:40 PM 11/12/2018 8:26 PM Care Teams Rn Ostomy Relationship Specialty Start Date End Date Dominic Fernando MD [address] [facility] [address] [place] [id number] PCP - General 08/13/17
--- OUTSIDE RECORDS SUMMARY | 2024-11-12 11:33 | XMS_ITS | Referral Summary ---
Author Organization [facility] Address [address] [place] [address] Care Team Providers Care Roustabout Hand Name Role Phone Dominic Fernando MD Primary Care Provider [phone] Allergies Active Allergy Reactions Criticality Noted Date [...] mcg tablet Take 112 mcg by mouth sanitary landfill operator before breakfast. 07/21/2018 Active XARELTO 20 mg [...] (09/24/2018): Added automatically from request for surgery [id number] Social History Tobacco Use Types Packs/Day Years Used Date Smoking Tobacco: Every Day Cigarettes Smokeless Tobacco: Current Comments:quitting now, 1 pac k last 2-3 days Alcohol Use Standard Drinks/Week Comments No 0 (1 standard drink = 0.6 oz pur e alcohol) Comments No Sex and Gender Information Value Date Recorded Sex Assigned at Not on file Legal Sex Female 11:26 PM CISCO CERTIFIED NETWORK ASSOCIATE Gender Identity Not on file Sexual Orientation Not on file Last Filed Vital Signs Vital Sign Reading Time Taken Comments Blood Pressure 98/64 10/02/2019 8:21 AM CISCO CERTIFIED NETWORK ASSOCIATE Pulse 55 10/02/2019 8:21 AM CISCO CERTIFIED NETWORK ASSOCIATE Temperature 37.1 C (98.8 F) 11/24/2018 12:06 PM CDT Respiratory Rate 16 11/24/2018 12:06 PM CDT Oxygen Saturation 98% 11/24/2018 12:06 PM CDT Inhaled Oxygen Concentration - - Weight 80.4 kg (177 lb 3.2 oz) 10/02/2019 8:21 A M CISCO CERTIFIED NETWORK ASSOCIATE Height 165.1 cm (5' 5) 10/02/2019 8:21 AM CISCO CERTIFIED NETWORK ASSOCIATE Body Mass Index 29.49 10/02/2019 8:21 AM CISCO CERTIFIED NETWORK ASSOCIATE Plan of Treatment Not on file Medical Devices Implanted Type Area Residency Coordinator Device Identifier Shelf Expiration Date Model / Serial / Lot [employer]hew[employer]Rich[employer]Or tho [id number] Legion 9mm Dished Knee 3-4 Insert Tibial Xlpe - [id number] Implanted:Qty: 1 on 11/11/2018 by Kemal Wright MD at [facility] Right: Knee [employer]Or [employer] 08/11/2028 [id number] / / [id number] [employer]Or tho [id number] 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 Taper Knee Right 4 Baseplate Tibial Titanium - [id number] Implanted:Qty: 1 on 11/11/2018 by Kemal Wright MD at [facility] Right: Knee [employer] 07/18/2028 [id number] / / [id number]- Size 4 Right Cruciate Retaining Legion Oxinium Femoral Componenet Implanted:Qty: 1 on 11/11/2018 by Kemal Wright MD at [facility] Right: Knee [employer] [id number] 01/06/2028 [id number] / / [id number] [employer] [id number] Palacos R+G High Viscosity Cement Bone Gentamicin Arthroplasty - [id number] Implanted:Qty: 1 on 11/11/2018 by Kemal Wright MD at [facility] Right: Knee [employer] 04/15/2021 [id number] / / [id number] Insurance MEDICARE [employer] MED[employer]ARE [employer] Advance Directives For more information, please contact: [phone] * Full Code (Latest Code Status on File) Date Activated Date Inactivated Comments 11/14/2018 1:26 PM 11/15/2018 7:15 PM * Full Code Date Activated Date Inactivated Comments 11/13/2018 10:00 AM 11/14/2018 1:16 PM per patient request * Full Code Date Activated Date Inactivated Comments 11/11/2018 7:40 PM 11/12/2018 8:26 PM Care Teams Roustabout Hand Relationship Specialty Start Date End Date Dominic Fernando MD [address] [facility] [address] [place] [address] PCP - General 08/13/17
[2024-11-12] MEDS: methylPREDNISolone SOD SUCC 125 MG VIAL IV PUSH (11:59)
[2024-11-12] MEDS: MAGNESIUM SULF 2 GM/WATER 50ML 2 GM/50 ML BAG IVPB (12:02)
[2024-11-12 12:12] LABS: Basophils Percent Auto 0.2 % (0.2-1.2); Hematocrit 40.5 % (37.0-47.0); Hemoglobin 13.2 g/dL (12.0-15.0); Immature Granulocyte Absolute 0.07 K/mm3 (0.00-0.031); Immature Granulocyte Percent A 0.5 % (0-0.5); Lymphocytes Absolute Auto 1.21 K/mm3 (0.9-3.2); Lymphocytes Percent Auto 9.2 % (18.3-44.2); Mean Corpuscular HGB Conc 32.6 g/dl (32-36); Mean Corpuscular Hemoglobin 27.4 pg (26-34); Mean Platelet Volume 10.2 fl (7.4-10.4); Monocytes Absolute Auto 0.9 K/mm3 (0.1-0.6); Monocytes Percent Auto 7.1 % (2.6-8.5); Neutrophils Absolute Auto 10.9 K/mm3 (1.3-6.7); Platelet Count Result 271 k/mm3 (150-375); Red Blood Count 4.82 M/mm3 (4.2-5.4); Red Cell Distribution Width 13.4 % (11.5-14.5); White Blood Count 13.1 K/mm3 (4.5-10.0)
[2024-11-12 12:14] LABS: Influenza A QL RT-PCR Negative (Negative); Influenza B QL RT-PCR Negative (Negative); RSV RNA, RT-PCR Negative (Negative); SARS-CoV-2 RNA PCR Negative (Negative)
[2024-11-12] MEDS: IPRATROPIUM BR 0.02% INH SOLN 0.5 MG/2.5 ML VIAL 1.5 MG INHALATION (12:17)
[2024-11-12] MEDS: ALBUTEROL SULFATE NEB 2.5 MG/3 ML INH 15 MG INHALATION (12:17)
[2024-11-12 12:27] LABS: INR 1.1; Lactic Acid Reflex 2.1 mmol/L (0.7-2.0); Prothrombin Time 14.5 Seconds (11.1-14.7)
[2024-11-12 12:28] LABS: Partial Thromboplastin Time 34.3 Seconds (22.3-36.8)
[2024-11-12 12:31] LABS: Alanine Aminotransferase 26 U/L (6-35); Albumin Level 3.8 g/dL (3.5-5.1); Alkaline Phosphatase 111 U/L (38-126); Anion Gap 15 mmol/L (4-12); Aspartate Amino Transferase 32 U/L (14-36); Bilirubin,Total 1.5 mg/dL (0.2-1.3); Blood Urea Nitrogen 13 mg/dL (7-17); Calcium 8.6 mg/dL (8.4-10.2); Carbon Dioxide 22 mmol/L (22-30); Chloride 99 mmol/L (98-107); Estimated CRCL calculation 49 ml/min; Estimated Glomerular Filt Rate 53; Glucose 111 mg/dL (65-110); Potassium 3.4 mmol/L (3.4-5.0); Sodium 136 mmol/L (137-145)
--- OUTSIDE RECORDS SUMMARY | 2024-11-12 12:42 | XMS_ITS | Continuity of Care Document ---
Author Organization [facility] Address [address] [place] [address] Phone Care Team Providers Care Biometrics Specialist Name Role Phone Unavailable Unavailable Unavailable Advance Directives Directive Yes / No Effective Date File Name No Information Encounters Encounter Description Practice Location Reason(s) For Visit Diagnoses Date Provider Providers Copied on Encounter [facility], [address], [place], [place], [id number], [place] tel:[phone] [facility] No Information Mar-1 6-200 0 No Information [...]
--- OUTSIDE RECORDS SUMMARY | 2024-11-12 12:42 | XMS_ITS | Clinical Summary ---
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 07/21/2018 Active XARELTO 20 mg [...] (09/24/2018): Added automatically from request for surgery [id number] Surgical History Surgery Date Site/Laterality Comments CHOLECYSTECTOMY [...] on file Legal Sex Female 11:26 PM STRAIGHT TOOTH GEAR GENERATOR OPERATOR Gender Identity Not on file Sexual Orientation Not on file Obstetrics History Last Filed Vital Signs Vital Sign Reading Time Taken Comments Blood Pressure 98/64 10/02/2019 8:21 AM STRAIGHT TOOTH GEAR GENERATOR OPERATOR Pulse 55 10/02/2019 8:21 AM STRAIGHT TOOTH GEAR GENERATOR OPERATOR Temperature 37.1 C (98.8 F) 11/24/2018 12:06 PM CDT Respiratory Rate 16 11/24/2018 12:06 PM CDT Oxygen Saturation 98% 11/24/2018 12:06 PM CDT Inhaled Oxygen Concentration - - Weight 80.4 kg (177 lb 3.2 oz) 10/02/2019 8:21 A M STRAIGHT TOOTH GEAR GENERATOR OPERATOR Height 165.1 cm (5' 5) 10/02/2019 8:21 AM STRAIGHT TOOTH GEAR GENERATOR OPERATOR Body Mass Index 29.49 10/02/2019 8:21 AM STRAIGHT TOOTH GEAR GENERATOR OPERATOR Plan of Treatment Not on file Medical Devices Implanted Type Area Shipping Lead Device Identifier Shelf Expiration Date Model / Serial / Lot [employer]Or tho [id number] Legion 9mm Dished Knee 3-4 Insert Tibial Xlpe - [id number] Implanted:Qty: 1 on 11/11/2018 by Kemal Wright MD at [facility] Right: Knee [employer]Or [employer] 08/11/2028 [id number] / / [id number] [employer]Or tho [id number] 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 Taper Knee Right 4 Baseplate Tibial Titanium - [id number] Implanted:Qty: 1 on 11/11/2018 by Kemal Wright MD at [facility] Right: Knee [employer]Or [employer] 07/18/2028 [id number] / / [id number]- Size 4 Right Cruciate Retaining Legion Oxinium Femoral Componenet Implanted:Qty: 1 on 11/11/2018 by Kemal Wright MD at [facility] Right: Knee [employer] [id number] 01/06/2028 [id number] / / [id number] [employer] [id number] Palacos R+G High Viscosity Cement Bone Gentamicin Arthroplasty - [id number] Implanted:Qty: 1 on 11/11/2018 by Kemal Wright MD at [facility] Right: Knee [employer] 04/15/2021 [id number] / / [id number] Insurance MEDICARE [facility] MEDICARE [facility] Advance Directives For more information, please contact: [phone] * Full Code (Latest Code Status on File) Date Activated Date Inactivated Comments 11/14/2018 1:26 PM 11/15/2018 7:15 PM * Full Code Date Activated Date Inactivated Comments 11/13/2018 10:00 AM 11/14/2018 1:16 PM per patient request * Full Code Date Activated Date Inactivated Comments 11/11/2018 7:40 PM 11/12/2018 8:26 PM Care Teams Implant Coordinator Relationship Specialty Start Date End Date Dominic Fernando MD [address] [facility] [address] [place] [id number] PCP - General 08/13/17
--- OUTSIDE RECORDS SUMMARY | 2024-11-12 12:42 | XMS_ITS | Referral Summary ---
Author Organization [facility] [employer] Address [address] [place] [address] Care Team Providers Care Firing Pin Gauger Name Role Phone Boris Mcnair DO Primary Care Provider [phone] Source Comments [facility],non-owned Affiliates and Associated Physician Practices is amultiple site organization consisting of ambulatory clinics and hospital sitesin [place], [place], [place] and [place]. This disclosure is being madepursuant to the Care Everywhere program and may not contain all information available regarding this patient. Last updated 18.[facility] Allergies Active Allergy Reactions [...] MG tablet 10/09/2018 Active Cholecalciferol (VITAMIN D3) 12970 units capsule Active Active Problems Problem Noted [...] 7 - 26 mg/dL 02/07/2018 1:22 PM [facility] Creatinine 1.0 0.6 - 1.2 mg/dL 02/07/2018 1:22 PM [facility] Sodium 136 136 - 145 mmol/L 02/07/2018 1:22 PM [facility] Potassium 3.6 3.5 - 4.5 mmol/L 02/07/2018 1:22 PM [facility] Chloride 101 98 - 107 mmol/L 02/07/2018 1:22 PM [facility] CO2 25 22 - 29 mmol/L 02/07/2018 1:22 PM [facility] Glucose 93 70 - 115 mg/dL 02/07/2018 1:22 PM [facility] Calcium 9.9 8.4 - 10.2 mg/dL 02/07/2018 1:22 PM [facility] Protein Total 7.6 6.0 - 8.3 g/dL 02/07/2018 1:22 PM [facility] Albumin 3.5 3.4 - 5.0 g/dL 02/07/2018 1:22 PM [facility] Bilirubin Total 0.7 0.2 - 1.2 mg/dL 02/07/2018 1:22 PM [facility] Alkaline Phosphatase 109 40 - 150 Units/L 02/07/2018 1:22 PM [facility] ALT 22 0 - 55 Units/L 02/07/2018 1:22 PM [facility] AST 23 5 - 34 Units/L 02/07/2018 1:22 PM [facility] Anion Gap 14 8 - 18 02/07/2018 1:22 PM CDT [facility] BUN/Creatinine Ratio 8 7 - 23 02/07/2018 1:22 PM CDT [facility] Osmolality Calculated 280 270 - 300 mOsm/kg 02/07/2018 1:22 PM [facility] Albumin/Globulin Ratio 0.9(L) 1.1 - 2.3 02/07/2018 1:22 PM T [facility] eGFR 57(L) >60 mL/min/1.7 3 m2 02/07/2018 1:22 PM T [facility] Blood BLOOD SPECIMEN / Unknown Lab Venipuncture / Unknown 02/07/2018 12:50 PM CDT 02/07/2018 12:55 PM CDT Ester Barajas DO LAB - CHEMISTRY ORD ERABLES Performing Organization Address [facility]/State/[facility] Co de Phone Number [facility] [address] [phone] from Last 3 Months or Most Recently Relevant to Health Maintenance Insurance Payer Benefit Plan / Group Subscriber ID Effective Dates Phone Address Type [facility] MANAGED MEDICARE ADV [facility] MEDICARE ADV [id number] Effective for all dates [address] [address] [place] [address] Medicare-Ma naged Care MEDICA[place] [facility] [id number] Effective for all dates [address] [facility] [address] [place] [address] Medicaid SELF PAY NO INSURANCE SELF PAY NO INSURANCE Effective for all dates [place], [place] Self Pay [facility] MANAGED MEDICARE ADV [facility] STATE RETIREES MEDICARE ADV [id number] 09/17/2024-Pres ent [address] [address] [place] [address] Medicare-[facility] Care MEDICAID [facility] MEDICAID [facility] Effective for all dates [address] [place] [address] Medicaid UHC MANAGED MEDICARE ADV [facility] STATE RETIREES MEDICARE ADV [id number] 09/17/2024-Pres ent [address] [address] [place] [address] Medicare-Ma naged Care MEDICAID [facility] MEDICAID [facility]DOWN [facility] Effective for all dates [address] [place] [address] Medicaid UHC MANAGED MEDICARE ADV [facility] STATE RETIREES MEDICARE ADV [id number] 09/17/2024-Pres ent [address] [address] [place] [address] Medicare-Ma naged Care MEDICAID [facility] MEDICAID [facility] Effective for all dates [address] [place] [address] Medicaid UHC MANAGED MEDICARE ADV [facility] STATE RETIREES MEDICARE ADV [id number] 09/17/2024-Pres ent [address] [address] [place] [address] Medicare-Ma naged Care MEDICARE WPS MEDICARE PART B [id number] 04/16/2013-Pres ent [address] [address] [place] [address] Medicare MEDICAID - OUT OF STATE MEDICAID - [facility] [id number] 03/24/2022-Pres ent [address] [address] [place] [address] Medicaid MEDICARE MEDICARE PART A AND B [id number] 04/16/2013-Pres ent [address] [place] [address] Medicare Advance Directives * Full Code (Latest Code Status on File) Date Activated Date Inactivated Comments 02/15/2018 8:10 AM 02/15/2018 12:04 PM * Full Code Date Activated Date Inactivated Comments 02/14/2018 7:57 AM 02/14/2018 6:16 PM Care Teams Firing Pin Gauger Relationship Specialty Start Date End Date Boris Mcnair DO [address] [place] [address] PCP - General 04/07/19
--- OUTSIDE RECORDS SUMMARY | 2024-11-12 12:42 | XMS_ITS | Clinical Summary ---
Author Organization [facility] Address [address] [place] [address] Care Team Providers Care Jukebox Route Driver Name Role Phone Eris Vu MD Primary Care Provider [phone] Allergies Active Allergy Reactions Criticality Noted Date Comments Adhesive Tape-Silicones Other (See Comments) Medium 08/19/2014 Blisters Codeine Shortness of Breath/Wheezing High 08/19/2014 Utxdxbjik-Y-Ktuwhrq-Se jun-Brom Other (See Comments) Low 08/19/2014 Alcohol- [...] Data STL ABSTRACTION Provider, Abstract 11/02/2024 Refill [facility] [place] [address] [place] [address] Chris Owens MD 10/09/2024 Abstract [facility] [place] [address] [place] [address] Chris Owens MD 10/09/2024 Telephone [facility] [place] [address] [place] [address] Chris Owens MD Surgical Clearance 10/08/2024 External Device Data STL ABSTRACTION Provider, Abstract 09/29/2024 External Device Data STL ABSTRACTION Provider, Abstract 08/25/2024 Orders Only [facility] [place] [address] [place] [address] Chris Owens MD 08/20/2024 Refill [facility] [place] [address] [place] [address] Chris Owens MD from Last 3 Months [...] on file Legal Sex Female 12:44 PM MONEY COUNTER Gender Identity Not on file Sexual Orientation [...] Description 12/04/2024 11:30 AM CDT Office Visit [facility] [place] [address] [facility] [address] [place] [address] Chris Owens MD [address] [facility] [address] [place] [id number] Health Maintenance Due Date Last Done Comments [...] CHEST WO CONTRAST Routine 08/25/2024 12:41 PM MONEY COUNTER MAMMO BILAT DIAGNOSTIC Routine 02/17/2024 1:[address] LUNG SCREENING (LDCT BASELINE OR ANNUAL) Routine 07/15/2019 Encounter for screening for lung cancer from Last 3 Months or Most Recently Relevant to Health Maintenance Results * CT CHEST WO CONTRAST (08/25/2024 12:41 PM MONEY COUNTER) Anatomical Region Laterality Modality Chest Other us [...] Most Recently Relevant to Health Maintenance Insurance [facility] [id number] Care Teams Jukebox Route Driver Relationship Specialty Start Date End Date Eris Vu MD PCP - General Family Practice 02/21/23
--- OUTSIDE RECORDS SUMMARY | 2024-11-12 12:42 | XMS_ITS | Referral Summary ---
Author Organization [facility] Address [address] [place] [address] Care Team Providers Care Slice Plug Cutter Operator Helper Name Role Phone Dominic Fernando MD Primary Care Provider [phone] Allergies Active Allergy Reactions Criticality Noted Date [...] mcg tablet Take 112 mcg by mouth pipe coverer before breakfast. 07/21/2018 Active XARELTO 20 mg [...] (09/24/2018): Added automatically from request for surgery [id number] Social History Tobacco Use Types Packs/Day Years Used Date Smoking Tobacco: Every Day Cigarettes Smokeless Tobacco: Current Comments:quitting now, 1 pac k last 2-3 days Alcohol Use Standard Drinks/Week Comments No 0 (1 standard drink = 0.6 oz pur e alcohol) Comments No Sex and Gender Information Value Date Recorded Sex Assigned at Not on file Legal Sex Female 11:26 PM COIN COUNTER AND WRAPPER Gender Identity Not on file Sexual Orientation Not on file Last Filed Vital Signs Vital Sign Reading Time Taken Comments Blood Pressure 98/64 10/02/2019 8:21 AM COIN COUNTER AND WRAPPER Pulse 55 10/02/2019 8:21 AM COIN COUNTER AND WRAPPER Temperature 37.1 C (98.8 F) 11/24/2018 12:06 PM CDT Respiratory Rate 16 11/24/2018 12:06 PM CDT Oxygen Saturation 98% 11/24/2018 12:06 PM CDT Inhaled Oxygen Concentration - - Weight 80.4 kg (177 lb 3.2 oz) 10/02/2019 8:21 A M COIN COUNTER AND WRAPPER Height 165.1 cm (5' 5) 10/02/2019 8:21 AM COIN COUNTER AND WRAPPER Body Mass Index 29.49 10/02/2019 8:21 AM COIN COUNTER AND WRAPPER Plan of Treatment Not on file Medical Devices Implanted Type Area Broadcast Operations Manager Device Identifier Shelf Expiration Date Model / Serial / Lot [employer]/Or tho [id number] Legion 9mm Dished Knee 3-4 Insert Tibial Xlpe - [id number] Implanted:Qty: 1 on 11/11/2018 by Kemal Wright MD at [facility] Right: Knee [employer] 08/11/2028 [id number] / / [id number] [employer]Or tho [id number] 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 Taper Knee Right 4 Baseplate Tibial Titanium - [id number] Implanted:Qty: 1 on 11/11/2018 by Kemal Wright MD at [facility] Right: Knee [employer] 07/18/2028 [id number] / / [id number]- Size 4 Right Cruciate Retaining Legion Oxinium Femoral Componenet Implanted:Qty: 1 on 11/11/2018 by Kemal Wright MD at [facility] Right: Knee [employer] [id number] 01/06/2028 [id number] / / [id number] [employer] [id number] Palacos R+G High Viscosity Cement Bone Gentamicin Arthroplasty - [id number] Implanted:Qty: 1 on 11/11/2018 by Kemal Wright MD at [facility] Right: Knee [employer] 04/15/2021 [id number] / / [id number] Insurance MEDICARE IDPR MEDICARE [facility] Address: [address] [address] [place] [address] IDPR Advance Directives For more information, please contact: [phone] * Full Code (Latest Code Status on File) Date Activated Date Inactivated Comments 11/14/2018 1:26 PM 11/15/2018 7:15 PM * Full Code Date Activated Date Inactivated Comments 11/13/2018 10:00 AM 11/14/2018 1:16 PM per patient request * Full Code Date Activated Date Inactivated Comments 11/11/2018 7:40 PM 11/12/2018 8:26 PM Care Teams Slice Plug Cutter Operator Helper Relationship Specialty Start Date End Date Dominic Fernando MD [address] [place] [address] PCP - General 08/13/17
--- OUTSIDE RECORDS SUMMARY | 2024-11-12 12:42 | XMS_ITS | Clinical Summary ---
Author Organization [facility] [employer] Address [address] [place] [address] Care Team Providers Care Director Of Sales And Marketing Name Role Phone Boris Mcnair DO Primary Care Provider [phone] Source Comments [facility],non-owned Affiliates and Associated Physician Practices is amultiple site organization consisting of ambulatory clinics and hospital sitesin [place], [place], [place] and [place]. This disclosure is being madepursuant to the Care Everywhere program and may not contain all information available regarding this patient. Last updated 18.[facility] Allergies Active Allergy Reactions Criticality Noted Date [...] MG tablet 10/09/2018 Active Cholecalciferol (VITAMIN D3) 21328 units capsule Active Active Problems Problem Noted [...] 0.6 - 1.2 mg/dL 02/07/2018 1:22 PM [facility] Sodium 136 136 - 145 mmol/L 02/07/2018 1:22 PM [facility] Potassium 3.6 3.5 - 4.5 mmol/L 02/07/2018 1:22 PM [facility] Chloride 101 98 - 107 mmol/L 02/07/2018 1:22 PM [facility] CO2 25 22 - 29 mmol/L 02/07/2018 1:22 PM [facility] Glucose 93 70 - 115 mg/dL 02/07/2018 1:22 PM [facility] Calcium 9.9 8.4 - 10.2 mg/dL 02/07/2018 1:22 PM [facility] Protein Total 7.6 6.0 - 8.3 g/dL 02/07/2018 1:22 PM [facility] Albumin 3.5 3.4 - 5.0 g/dL 02/07/2018 1:22 PM [facility] Bilirubin Total 0.7 0.2 - 1.2 mg/dL 02/07/2018 1:22 PM [facility] Alkaline Phosphatase 109 40 - 150 Units/L 02/07/2018 1:22 PM [facility] ALT 22 0 - 55 Units/L 02/07/2018 1:22 PM [facility] AST 23 5 - 34 Units/L 02/07/2018 1:22 PM [facility] Anion Gap 14 8 - 18 02/07/2018 1:22 PM [facility] BUN/Creatinine Ratio 8 7 - 23 02/07/2018 1:22 PM [facility] Osmolality Calculated 280 270 - 300 mOsm/kg 02/07/2018 1:22 PM [facility] Albumin/Globulin Ratio 0.9(L) 1.1 - 2.3 02/07/2018 1:22 PM [facility] eGFR 57(L) >60 mL/min/1.7 3 m2 02/07/2018 1:22 PM [facility] Blood BLOOD SPECIMEN / Unknown Lab Venipuncture / Unknown 02/07/2018 12:50 PM CDT 02/07/2018 12:55 PM T Ester Barajas DO LAB - CHEMISTRY ORD ERABLES [facility] [address] [phone] from Last 3 Months or Most Recently Relevant to Health Maintenance Insurance Payer Benefit Plan / Group Subscriber ID Effective Dates Phone Address Type UHC MANAGED MEDICARE ADV C MEDICARE ADV [id number] Effective for all dates [address] [address] [place] [address] Medicare-Ma naged Care MEDICAID [facility] MEDICAID [facility] [id number] Effective for all dates [address] [place] [address] Medicaid SELF PAY NO INSURANCE SELF PAY NO INSURANCE Effective for all dates [place], [place] Self Pay [facility] MANAGED MEDICARE ADV [facility] [place] RETIREES MEDICARE ADV [id number] 09/17/2024-Pres ent [address] [address] [place] [address] Medicare-Ma naged Care MEDICAID [facility] MEDICAID [facility] Effective for all dates [address] [place] [address] Medicaid UHC MANAGED MEDICARE ADV [facility] [place] RETIREES MEDICARE ADV [id number] 09/17/2024-Pres ent [address] [address] [place] [address] Medicare-Ma naged Care MEDICAID [facility] MEDICAID [facility] Effective for all dates [address] [place] [address] Medicaid UHC MANAGED MEDICARE ADV [facility] [place] RETIREES MEDICARE ADV [id number] 09/17/2024-Pres ent [address] [address] [place] [address] Medicare-Ma naged Care MEDICAID [facility] MEDICAID [facility] Effective for all dates [address] [place] [address] Medicaid UHC MANAGED MEDICARE ADV [facility] [place] RETIRE[place] MEDICARE ADV [id number] 09/17/2024-Pres ent [address] [address] [place] [address] Medicare-Ma naged Care MEDICARE WPS MEDICARE PART B [id number] 04/16/2013-Pres ent [address] [address] [place] [address] Medicare MEDICAID - OUT OF [facility] MEDICAID - [facility] [id number] 03/24/2022-Pres ent [address] [address] [place] [address] Medicaid MEDICARE MEDICARE PART A AND B [id number] 04/16/2013-Pres ent [address] [place] [address] Medicare Advance Directives * Full Code (Latest Code Status on File) Date Activated Date Inactivated Comments 02/15/2018 8:10 AM 02/15/2018 12:04 PM * Full Code Date Activated Date Inactivated Comments 02/14/2018 7:57 AM 02/14/2018 6:16 PM Care Teams Director Of Sales And Marketing Relationship Specialty Start Date End Date Boris Mcnair DO [address] [place], [place] [address] PCP - General 04/07/19
--- OUTSIDE RECORDS SUMMARY | 2024-11-12 12:42 | XMS_ITS | CONTINUITY OF CARE DOCUMENT ---
Author Name keke davies Address Unknown Organization [facility] Address [address] [facility] [address] [place] [address] Phone [phone] Care Team Providers Care Caterpillar Operator Name Role Phone Vin Tay MD Unavailable INSURANCE PROVIDERS Payer name Policy type / Coverage type [place] red republican ID SELF PAY [id number]
--- OUTSIDE RECORDS SUMMARY | 2024-11-12 12:42 | XMS_ITS | Patient Health Summary ---
Author Organization [facility] Address [address] [place] [address] Care Team Providers Care Door And Arrival Attendant Name Role Phone Boris Mcnair Primary Care Provider [phone] Note from [facility],non-owned Affiliates and Associated Physician Practices is amultiple site organization consisting of ambulatory clinics and hospital sitesin [place], [place]. This disclosure is being madepursuant to the Care Everywhere program and may not contain all information available regarding this patient. Last updated 18.[facility] Allergies * Adhesive Sensitivity(Other) -Medium Criticality * [...] MG tablet(Started 10/09/2018) * Cholecalciferol (VITAMIN D3) 48056 units capsule Active Problems Problem Noted Date [...] Deshaun Boland MD - 04/02/2019 Heather James VP HOME HEALTH-CANDLE EXTRUSION MACHINE OPERATOR VASCULAR LAB OR DERABLES * VAS CAROTID DUPLEX BILATERAL (04/02/2019 9:18 AM CDT) Only the most recent of2 resultswithin the time period is included. Anatomical Region Laterality Modality Intravascular Ul trasound 04/02/2019 8:18 AM CDT Narrative Procedure Note Deshaun Boland MD - 04/02/2019 Too Lara MD VASCULAR LAB ORDERAB LES * CARDIAC EKG ORDER (08/04/2018 12:01 PM SCHOOL COUNSELLOR) Only the most recent of2 resultswithin the time period is included. Narrative 08/04/2018 12:01 PM SCHOOL COUNSELLOR Ordered by an unspecified provider. Scanned Document CARDIAC SERVICES ORD ERABLES * ACT - POCT (IP) [facility] (02/14/2018 12:55 PM CDT) Only the most recent of2 resultswithin the time period is included. Activated Clotting Time 255 sec [facility] POCT TESTING Blood BLOOD SPECIMEN / Unknown 02/14/2018 12:55 PM CDT Kevin Bower MD LAB - POINT OF CARE ORDERABLES [facility] POCT TESTING [address] [phone] * PREPARE (CROSSMATCH) RBC UNIT(S), 2 Units (02/14/2018 9:11 AM CDT) Unit Description LR Red Cells [facility] BLOOD BANK LAB Unit ABO O [facility] BLOOD [facility]ANK LAB Unit Rh POS [facility] BLOOD [facility]ANK LAB Product Code RL1 [facility] BLO OD BANK LAB Unit Donor # [id number] [facility] BLOOD BANK LAB Unit Status released [facility] BLOO D BANK LAB Product Number [id number] [facility] B LOOD [facility]ANK LAB Blood Type Barcode 5100 [facility] BLOOD BANK LAB Unit Description LR Red Cells [facility] BLOOD BANK LAB Unit ABO O [facility] BLOOD [facility]ANK LAB Unit Rh POS [facility] BLOOD BANK LAB Product Code RL3 [facility] BLO OD BANK LAB Unit Donor # [id number] [facility] BLOOD BANK LAB Unit Status released [facility] BLOO D BANK LAB Product Number [id number] [facility] B LOOD BANK LAB Blood Type Barcode 5100 [facility] BLOOD BANK LAB Blood Bank BLOOD SPECIMEN / Unknown 02/14/2018 9:11 AM CDT 02/14/2018 9:11 AM CDT Ester Barajas DO LAB - BLOOD BANK OR DERABLES Performing Organization Address [facility]/ZIP Co de Phone Number [facility] BLOOD BANK LAB [address] [place] [address] * TYPE + SCREEN PANEL (02/14/2018 9:05 AM CDT) Antibody Screen NEG 8 9:58 AM CDT [facility] BLOOD BANK LAB ABO Rh O POS 02/14/2018 9:58 AM CDT [facility] BLOOD BANK LAB Blood Bank BLOOD SPECIMEN / Unknown Venipuncture / Unknown 02/14/2018 9:05 AM CDT 02/14/2018 9:10 AM CDT Paulina Andujar VP HOME HEALTH-PIER MASTER LAB - BLOOD BA NK ORDERABLES Performing Organization Address [facility] Co de Phone Number [facility] BLOOD BANK LAB [address] [place] [address] * (ABNORMAL) PTT [facility] (02/07/2018 12:50 PM CDT) APTT 42.0(H) 23.0 - 38.4 Seconds 02/07/2018 1:16 PM CDT [facility] Comment: Suggested therapeutic range for full dose I.V. heparin therapy for venous thromboembolism is 66.0-91.0 seconds. Blood BLOOD SPECIMEN / Unknown Lab Venipuncture / Unknown 02/07/2018 12:50 PM CDT 02/07/2018 12:55 PM CDT Ester Barajas DO LAB - COAGULATION O RDERABLES Performing Organization Address City/[facility]/ZIP Co de Phone Number [facility] LABORATORY [address] [phone] * (ABNORMAL) PT-INR [facility] (02/07/2018 12:50 PM CDT) PT 19.0(H) 12.1 - 14.8 Seconds 02/07/2018 1:15 PM CDT [facility] INR 1.6 See Comment 02/07/2018 [...] Barajas DO LAB - COAGULATION O RDERABLES [facility] [address] [phone] * CBC W AUTO DIFFERENTIAL (02/07/2018 12:50 PM CDT) WBC 8.0 3.5 - 10.5 10 3/uL 02/07/2018 1:01 PM [facility] RBC 4.82 3.90 - 5.00 10 6/uL 02/07/2018 1:01 PM [facility] Hemoglobin 13.6 12.0 - 15.5 g/dL 02/07/2018 1:01 PM [facility] Hematocrit 40.6 35.0 - 45.0 % 02/07/2018 1:01 PM [facility] MCV 84.2 81.0 - 97.0 fL 02/07/2018 1:01 PM [facility] MCH 28.2 28.0 - 34.0 pg 02/07/2018 1:01 PM [facility] MCHC 33.5 32.0 - 36.0 g/dL 02/07/2018 1:01 PM [facility] Platelet Count 292 150 - 400 10 3/uL 02/07/2018 1:01 PM [facility] RDW-SD 39.7 36.0 - 50.0 fL 02/07/2018 1:01 PM [facility] RDW-CV 12.9 11.2 - 14.8 % 02/07/2018 1:01 PM [facility] MPV 10.3 9.3 - 12.8 fL 02/07/2018 1:01 PM [facility] Neutrophils % 64.9 35.0 - 70.0 % 02/07/2018 1:01 PM [facility] Lymphocytes % 25.9 19.7 - 55.1 % 02/07/2018 1:01 PM [facility] Monocytes % 6.3 3.0 - 15.0 % 02/07/2018 1:01 PM [facility] Eosinophils % 2.6 0.0 - 6.0 % 02/07/2018 1:01 PM [facility] Basophil % 0.3 0.0 - 1.5 % 02/07/2018 1:01 PM [facility] Neutrophils Absolute 5.2 1.6 - 7.0 10 3/uL 02/07/2018 1:01 PM [facility] Lymphocyte Absolute 2.1 0.8 - 2.9 10 3/uL 02/07/2018 1:01 PM [facility] Monocytes Absolute 0.50 0.14 - 0.66 10 3/uL 02/07/2018 1:01 PM [facility] Eosinophils Absolute 0.21 0.00 - 0.22 10 3/uL 02/07/2018 1:01 PM [facility] Basophils Absolute 0.02 0.00 - 0.06 10 3/uL 02/07/2018 1:01 PM [facility] Immature Granulocytes % 0.3 0.0 - 1.0 % 02/07/2018 1:01 PM [facility] Blood BLOOD SPECIMEN / Unknown Lab Venipuncture / Unknown 02/07/2018 12:50 PM CDT 02/07/2018 12:55 PM CDT Ester Barajas DO LAB - HEMATOLOGY OR DERABLES [place] [id number] [address] [phone] * (ABNORMAL) COMPREHENSIVE METABOLIC PANEL (02/07/2018 12:50 PM CDT) BUN 8 7 - 26 mg/dL 02/07/2018 1:22 PM [facility] Creatinine 1.0 0.6 - 1.2 mg/dL 02/07/2018 1:22 PM [facility] Sodium 136 136 - 145 mmol/L 02/07/2018 1:22 PM [facility] Potassium 3.6 3.5 - 4.5 mmol/L 02/07/2018 1:22 PM [facility] Chloride 101 98 - 107 mmol/L 02/07/2018 1:22 PM [facility] CO2 25 22 - 29 mmol/L 02/07/2018 1:22 PM [facility] Glucose 93 70 - 115 mg/dL 02/07/2018 1:22 PM [facility] Calcium 9.9 8.4 - 10.2 mg/dL 02/07/2018 1:22 PM [facility] Protein Total 7.6 6.0 - 8.3 g/dL 02/07/2018 1:22 PM [facility] Albumin 3.5 3.4 - 5.0 g/dL 02/07/2018 1:22 PM [facility] Bilirubin Total 0.7 0.2 - 1.2 mg/dL 02/07/2018 1:22 PM [facility] Alkaline Phosphatase 109 40 - 150 Units/L 02/07/2018 1:22 PM [facility] ALT 22 0 - 55 Units/L 02/07/2018 1:22 PM [facility] AST 23 5 - 34 Units/L 02/07/2018 1:22 PM [facility] Anion Gap 14 8 - 18 02/07/2018 1:22 PM [facility] BUN/Creatinine Ratio 8 7 - 23 02/07/2018 1:22 PM [facility] Osmolality Calculated 280 270 - 300 mOsm/kg 02/07/2018 1:22 PM [facility] Albumin/Globulin Ratio 0.9(L) 1.1 - 2.3 02/07/2018 1:22 PM [facility] eGFR 57(L) >60 mL/min/1.7 3 m2 02/07/2018 1:22 PM [facility] Blood BLOOD SPECIMEN / Unknown Lab Venipuncture / Unknown 02/07/2018 12:50 PM CDT 02/07/2018 12:55 PM CDT Ester K Karl DO LAB - CHEMISTRY ORD ERABLES Performing Organization Address City/[facility]/ZIP Co de Phone Number [facility] LABORATORY [facility] [address] [phone] * EKG 12-LEAD (02/07/2018 10:08 AM CDT) Ventricular Rate 57 BPM [facility]USE Atrial Rate 57 BPM [facility] MUSE P-R Interval 206 ms H MUSE QRS Duration ms 84 ms [facility] Q-T Interval ms 428 ms [facility] MUSE QTC Calculation (Bezet) 416 ms [facility] MUSE Calculated P [place] 70 degrees [facility] MUSE Calculated R [place] 23 degrees [facility] Calculated T [place] 60 degrees [facility] Interpretation EKG Sinus bradycardia~Po or R wave progression in precordial leads~Otherwis e normal ECG~No previous ECGs available~Conf irmed by Ancelmo KISER, JEVON ([id number]), newspaper editor AMOS MCCLENDON ([id number]) on 02/13/2018 1:47:34 PM [facility] MUSE 02/07/2018 10:0 8 AM CDT 02/13/2018 1:47 PM CDT Ester Haresh Barajas DO ECG ORDERABLES Performing Organization Address [facility] Co de Phone Number [facility] MUSE * XR LUMBAR SPINE 4+ VW (08/19/2014 3:54 AM SCHOOL COUNSELLOR) Anatomical Region Laterality Modality Spine Radiographic Yulisa ging 08/19/2014 7:39 AM SCHOOL COUNSELLOR Impressions 08/19/2014 8:06 AM SCHOOL COUNSELLOR Mild degenerative changes. Edited by Juanita Odonnell on 08/19/2014 7:51 AM Narrative 08/19/2014 8:06 AM SCHOOL COUNSELLOR LUMBAR SPINE 5 VIEWS INDICATION: Low back [...] SHOULDER 2+ VW RIGHT (08/19/2014 3:54 AM SCHOOL COUNSELLOR) Anatomical Region Laterality Modality Upper Extremity Radiographic Yulisa ging 08/19/2014 8:04 AM SCHOOL COUNSELLOR Impressions 08/19/2014 8:04 AM SCHOOL COUNSELLOR No fracture. Narrative 08/19/2014 8:04 AM SCHOOL COUNSELLOR Right shoulder 2 views unilateral Indication: Right [...] MD DIAGNOSTIC IMAGING O RDERABLES Care Teams Door And Arrival Attendant Relationship Specialty Start Date End Date Boris Mcnair DO [address] [place] [address] PCP - General 04/07/19
--- OUTSIDE RECORDS SUMMARY | 2024-11-12 12:42 | XMS_ITS | Clinical Summary ---
Author Organization [facility] Address [address] [place] [address] Care Team Providers Care Ticker Installer Name Role Phone Eris Vu MD Primary Care Provider [phone] Allergies Active Allergy Reactions Criticality Noted Date [...] this topic Medical Devices Implanted Type Area Trouble Clerk Device Identifier Shelf Expiration Date Model / Serial / Lot Tecnis 1-Piece Iol Implanted:Qty: 1 on 06/08/2024 by Jadon Vu MD at [facility] Left: Eye [employer] 10/27/2026 / [id number] / Insurance MEDICAID Care Teams Ticker Installer Relationship Specialty Start Date End Date Eris Vu MD [address] [place] [address] PCP - General FAMILY PRACTICE 06/05/24
[2024-11-12] MEDS: ONDANSETRON INJ 4 MG/2 ML VIAL IV PUSH (13:11)
[2024-11-12] MEDS: SODIUM CHLORIDE 0.9% IV 1,000 ML 999 ML IV CONT ×2 (13:17→17:26)
[2024-11-12] MEDS: IPRATROPIUM 0.5 MG/ALBUTEROL SULFATE 2.5 MG AMPUL.NEB 3 ML INHALATION ×2 (13:57→20:43)
[2024-11-12] MEDS: AZITHROMYCIN 500 MG/NS 250 ML 500 MG/250 ML BAG 250 MG IVPB (14:47)
[2024-11-12 15:10] LABS: Reflex Lactic Acid Yes or No Add Lactic
--- NOTE | 2024-11-12 15:47 | ADMGEN ---
This patient, Gege Vidal, was admitted to [facility] Surg Room 311-01. Patient/family oriented to hospital policies and general routines including ID bracelet, bed and alarms, visiting hours, pain management, procedures, bathroom and other care routines, personal items, smoking policy, room service/diet, and visiting hours. Information on how to activate the Rapid Response Team has been discussed. Patient/Family are encouraged to report perceived risks to care and to ask questions if they do not understand what they are told or what they should do.
--- NOTE | 2024-11-12 16:04 | P.HP_ITS ---
H&P: HPI History of Present Illness Date/Time: 11/12/24 16:04 Chief Complaint: Shortness of Breath Narrative: 64 y/o F presents here with shortness of breath with PMH of COPD, hypersomnia, fibromyalgia, GERD, CAD, hypothyroidism, CVA with residual short-term memory loss, hypothyroidism, DVT, B12 and vitamin-D deficiency. The patient presents here from home for further evaluation of cold-like symptoms and weakness. Initially started with a cough 1 week ago. Reports she had two family members with a viral illness at the same time. She reports onset of shortness of breath, nonproductive cough, generalized weakness approximately 2-3 days ago. The symptoms are accompanied by a decreased appetite, general malaise, chills, body aches, lethargy, and nausea with dry heaving without emesis. She denies fever, chest pain, dirrhea. Initial VS at presentation: 99.3? F, HR 68, R 20, 115/56, and 91% on room air. Desaturation to 88% on room air, now on supplemental O2. ED workup showed: WBC 13.1, no anemia, creatinine 1.05 and GFR 53 (previously 0.9 and normal GFR 08/2024), lactic 2.1, glucose 111, viral PCR negative. CXR showed no acute cardiopulmonary disease. EKG showed sinus tachycardia. Review of Systems Review of Systems: All systems reviewed & are unremarkable except as noted in HPI and below [facility] Past Medical History Medical History (Updated 11/12/24 @ 16:42 by Sarah Antonio, ENVIRONMENTAL [employer]OTECTION FORESTER) History of colitis Hypothyroidism Hyperlipidemia Carotid artery disease Status post left carotid endarterectomy. Symptomatic PVCs On metoprolol 50 milligrams daily. 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 Positive colorectal cancer screening using Cologuard test History of cervical cancer S/p partial hysterectomy Fibromyalgia COVID-19 (01/2022) Tobacco abuse COPD (chronic obstructive pulmonary disease) On technician terminal and repeater drug therapy Recurrent falls Colon cancer screening History of colon polyps Otitis media Hypersomnia Low hemoglobin Vertigo Osteoarthritis Diverticulosis With history of diverticulitis. Personal history of nicotine dependence Vitamin B12 deficiency Vitamin D deficiency Surgical History Surgical History Status post cholecystectomy Status post tonsillectomy S/P medial meniscectomy of left knee (09/2021) History of shoulder surgery History of neck surgery Hx of total knee arthroplasty Right History of arthroplasty of right knee History of left-sided carotid endarterectomy Status post cervical spinal fusion Status post right rotator cuff repair Status post tubal ligation Status post left breast biopsy Status post partial hysterectomy For cervical cancer. Family History Family History Mother Depression Family history of diabetes mellitus in first degree relative Diabetes mellitus Father Family history of diabetes mellitus in first degree relative Acute myocardial infarction Diabetes mellitus Sibling Hepatitis Pulmonary embolism Sibling No problems noted. Other Family history of allergic disorder Family history of cardiovascular disease Family history of malignant neoplasm Hypertension Social History Social History Social History: The patient is . She lives with her son in [place]. She designates her sons, Laith Howard and Kemal Islas, as her surrogate decision makers and she wishes to be a full code. She has smoked at least 1 pack of cigarettes per day for almost 40 years. She denies alcohol and drug abuse. Smoking packs per day: 1 Smoking cigarettes per day: 20.0 Years smoked: 40 Smoking pack-years: 40.00 Smoking status: Former smoker Second hand tobacco smoke exposure: Yes Alcohol intake: never Alcohol use details: reaction to ETOH Substance use: never Substance use type: does not use Do You Feel Safe in your Home?: Yes Lack of Transportation: No Lack of Food: Never True Current Housing: I Have Housing Concerned About Future Housing: No Difficulty Paying Gas/Electric Bills: No Difficulty Paying for Meds: No Currently Unemployed: No Education: High School Diploma/GED Difficulty w/ Childcare or Family Care: No Living arrangements: with family Occupation/Education: retired 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 Gender identity (if verbalized by the patient): Female Sexual Orientation (if Verbalized by the Patient): Straight or Heterosexual Spiritual care concerns: No Agree to blood products: Yes Meds Home Medications and Allergies Home Medications ?Medication ?Instructions ?Recorded ?Confirmed ?Type rivaroxaban 20 mg tablet (Xarelto) 20 mg PO DAILY 07/29/19 11/12/24 History folic acid 1 mg tablet 1 mg PO DAILY 08/04/19 11/12/24 History albuterol sulfate 2.5 mg/3 mL 2.5 mg (3 mL) inhalation Q4-6H PRN 06/09/21 11/12/24 Rx (0.083 %) solution for nebulization shortness of breath or wheezing #90 mL aspirin 81 mg chewable tablet 81 mg PO DAILY 10/06/22 11/12/24 History ergocalciferol (vitamin D2) 1,250 1,250 mcg PO MONTHLY 03/24/24 11/12/24 History mcg (50,000 unit) capsule ferrous sulfate 325 mg (65 mg 325 mg PO DAILY 03/24/24 11/12/24 History iron) tablet (Feosol) lactobacillus combination no.9 4 4,000 mmu cells PO DAILY 03/24/24 11/12/24 History billion cell capsule (Adult 50 Plus Probiotic) fluticasone propionate 50 2 spray intranasal DAILY #18 mL 05/05/24 11/12/24 Rx mcg/actuation nasal spray,suspension (Flonase Allergy Relief) nebivolol 5 mg tablet See Rx Instructions .Route 05/25/24 11/12/24 Rx .COMPLEX #90 tabs oxycodone-acetaminophen 5 mg-325 1 tablet PO Q8H PRN pain #10 tabs 09/07/24 11/12/24 Rx mg tablet (Percocet) cholecalciferol (vitamin D3) 25 1,000 unit PO 3XW 10/13/24 11/12/24 History mcg (1,000 unit) capsule (Vitamin D3) cyanocobalamin (vitamin B-12) 1,000 mcg PO 3XW 10/13/24 11/12/24 History 1,000 mcg tablet (Vitamin B-12) pantoprazole 20 mg tablet,delayed 20 mg PO DAILY #90 tabs 10/22/24 11/12/24 Rx release dicyclomine 10 mg capsule 10 mg PO BID PRN abdominal pain 10/27/24 11/12/24 Rx #60 caps budesonide 3 mg 3 mg PO DAILY #90 ea 11/04/24 11/12/24 Rx capsule,delayed,extended release ondansetron 4 mg disintegrating 4 mg PO Q8H PRN nausea and 11/04/24 11/12/24 Rx tablet vomiting #90 tabs albuterol sulfate 90 mcg/actuation 2 puff inhalation Q6H PRN 11/05/24 11/12/24 Rx aerosol inhaler (ProAir HFA) Shortness Of Breath #8.5 grams alprazolam 0.5 mg tablet (Xanax) 0.5 mg PO BID PRN anxiety #60 tabs 11/05/24 11/12/24 Rx atorvastatin 40 mg tablet 40 mg PO DAILY #90 tabs 11/05/24 11/12/24 Rx cyclobenzaprine 10 mg tablet See Rx Instructions .Route 11/05/24 11/12/24 Rx .COMPLEX #90 tabs fluticasone propionate 230 2 puff inhalation BID #12 grams 11/05/24 11/12/24 Rx mcg-salmeterol 21 mcg/actuation HFA inhaler (Advair HFA) levothyroxine 88 mcg tablet 88 mcg PO DAILY #90 tabs 11/05/24 11/12/24 Rx (Synthroid) nystatin 100,000 unit/gram topical 1 applic topical BID PRN rash #15 11/05/24 11/12/24 Rx cream grams benzonatate 200 mg capsule 200 mg PO TID PRN cough #30 caps 11/10/24 11/12/24 Rx Allergies Allergy/AdvReac Type Severity Reaction Status Date / Time codeine Allergy Severe Anaphylaxis Verified 11/12/24 15:51 hydromorphone Allergy Severe Blister Verified 11/12/24 15:51 latex Allergy Severe Blister Verified 11/12/24 15:51 levofloxacin Allergy Severe BLISTERS Verified 11/12/24 15:51 ON BODY morphine Allergy Severe Hypotension Verified 11/12/24 15:51 oxycodone Allergy Severe Blister Verified 11/12/24 15:51 penicillin G Allergy Severe ANAPHYLACTI Verified 11/12/24 15:51 C Penicillins Allergy Severe Anaphylaxis Verified 11/12/24 15:51 shellfish derived Allergy Severe Swelling Verified 11/12/24 15:51 of Lip/Tongue/Throat vancomycin Allergy Severe [place], Verified 11/12/24 15:51 Patient unsure of reaction hydrocodone Allergy Intermediate Itching Verified 11/12/24 15:51 dexamethasone (From Maxitrol) Allergy Swelling Verified 11/12/24 15:51 of the Eye neomycin (From Maxitrol) Allergy Swelling Verified 11/12/24 15:51 of the Eye polymyxin B (From Maxitrol) Allergy Swelling Verified 11/12/24 15:51 of the Eye Vital Signs Vital Signs - 24 hr 11/12/24 10:34 11/12/24 11:10 11/12/24 11:14 Temperature 99.3 F 99.3 F Pulse Rate 68 68 Respiratory Rate 20 20 Blood Pressure 115/56 L 115/56 L Pulse Oximetry 91 91 91 Oxygen Delivery Room Air Room Air Oxygen Flow Rate 11/12/24 11:16 11/12/24 12:05 11/12/24 12:44 Temperature Pulse Rate 98 106 H 121 H Respiratory Rate 33 H Blood Pressure 120/58 L Pulse Oximetry 93 98 Oxygen Delivery Oxygen Flow Rate 11/12/24 12:45 11/12/24 12:51 11/12/24 13:00 Temperature Pulse Rate 126 H 125 H 123 H Respiratory Rate 29 H 31 H 36 H Blood Pressure 102/66 Pulse Oximetry 98 98 98 Oxygen Delivery Oxygen Flow Rate 11/12/24 13:01 11/12/24 13:15 11/12/24 13:26 Temperature Pulse Rate 122 H 119 H Respiratory Rate 33 H 30 H Blood Pressure 106/57 L Pulse Oximetry 97 90 92 Oxygen Delivery Room Air Oxygen Flow Rate 11/12/24 13:30 11/12/24 13:38 11/12/24 13:45 Temperature Pulse Rate 110 H 104 H Respiratory Rate 28 H 24 H Blood Pressure Pulse Oximetry 88 L 100 94 Oxygen Delivery Nasal Cannula Oxygen Flow Rate 2 11/12/24 14:00 11/12/24 14:01 11/12/24 14:15 Temperature Pulse Rate 105 H 103 H 104 H Respiratory Rate 23 H 30 H 28 H Blood Pressure 103/56 L Pulse Oximetry 98 99 95 Oxygen Delivery Oxygen Flow Rate 11/12/24 15:22 Temperature Pulse Rate 101 H Respiratory Rate 30 H Blood Pressure 107/34 L Pulse Oximetry 95 Oxygen Delivery Oxygen Flow Rate Exam Const: General: comfortable and no acute distress Other: , female, modestly ill-appearing HENMT: Face/Nose/Sinus: Normal nares present Mouth: Yes moist mucous membranes Other: Nasal cannula in place, tolerating well Eyes: General: appearance normal, both eyes and all related structures Sclera: sclerae normal Pupils: Equal, round and reactive pupils present EOM: EOMs intact bilaterally Resp: Other: Mild tachypnea without accessory muscle use. poor air movement, diffuse. coarse in bilateral bases without crackles. Cardio: Rate: regular rate Rhythm: regular rhythm Other: S1-S2 present without murmur, rub, ectopy GI: Other: Abdomen soft, nondistended, nontender. Skin: General skin exam: normal color and no rashes or lesions noted Wounds: no wounds Neuro: Speech: normal speech Motor exam (neuro): 5/5 motor strength present throughout Sensory Exam: normal sensation Other: A&O x4 Extrem: General: normal to inspection Psych: Mental Status: mental status grossly normal Affect: normal affect Other: Good insight and judgment, pleasant H&P: Results Labs Labs: Short CBC 11/12/24 Range/Units 11:58 WBC 13.1 H (4.5-10.0) K/mm3 Hgb 13.2 (12.0-15.0) g/dL Hct 40.5 (37.0-47.0) % Plt Count 271 (150-375) k/mm3 BMP 11/12/24 11:58 Sodium 136 L Potassium 3.4 Chloride 99 Carbon Dioxide 22 BUN 13 Creatinine 1.05 H Glucose 111 H Calcium 8.6 Liver Function 11/12/24 Range/Units 11:58 Total Bilirubin 1.5 H (0.2-1.3) mg/dL AST 32 (14-36) U/L ALT 26 (6-35) U/L Alkaline Phosphatase 111 (38-126) U/L Albumin 3.8 (3.5-5.1) g/dL Assessment and Plan Assessment and plan (1) Acute hypoxemic respiratory failure: Code(s): J96.01 - Acute respiratory failure with hypoxia Status: Acute Assessment and Plan: - CXR: No acute cardiopulmonary disease. - EKG, initial: Sinus tachycardia, rate 102, possible right ventricular conduction delay, delayed precordial RS transition, borderline EKG. When compared to EKG done in June of 2024, heart rate has increased. - viral PCR negative - Hgb 13.2 Suspect viral illness and COPD exacerbation. Cannot exclude pna, however not seen on CXR. Continue supplemental O2 to maintain O2 saturation greater than 92%, wean as tolerated. (2) Sepsis: Qualifiers: Acute respiratory failure type: with hypoxia Sepsis acute organ dysfunction status: with acute organ dysfunction Sepsis type: sepsis due to unspecified organism Severe sepsis acute organ dysfunction type: acute respiratory failure Severe sepsis shock status: without septic shock Qualified Code(s): A41.9 - Sepsis, unspecified organism; R65.20 - Severe sepsis without septic shock; J96.01 - Acute respiratory failure with hypoxia Code(s): A41.9 - Sepsis, unspecified organism Status: Acute Assessment and Plan: - meets SIRS criteria: HR, RR, WBC. +hypoxia. - lactic acid: 2.1 -> 7.1, trend down - lactic elevated, procalcitonin added - 30 mL/kg = 2.2 L, 1L in ED. 2nd L ordered. - started on ceftriaxone and azithromycin - blood cultures drawn on 11/12, follow - check UA (3) COPD exacerbation: Code(s): J44.1 - Chronic obstructive pulmonary disease with (acute) exacerbation Status: Acute Assessment and Plan: [facility]u-Medrol [facility] IV q.6 - started on ceftriaxone and azithromycin on 11/12 - continue maintenance medications: Entocort PO, Advair BID. - supportive care Plan Diet: Heart healthy GI Prophylaxis: Not currently indicated DVT Prophylaxis: Xarelto Lines: Peripheral Code Status: Full code Quality VTE Prophylaxis VTE prophylaxis: pharmacologic ordered Hospitalist MIPS Advance Care Plan I have confirmed that the patient's Advanced Care Plan is present, code status is documented, or surrogate decision maker is listed in patient medical record.: Yes Medication Reconciliation I have utilized all available resources to obtain, update and review the patients current medications (includes all prescriptions, OTC, herbals, cannabis, and nutritional supplements).: Yes
[2024-11-12 17:01] LABS: Lactic Acid 7.2 mmol/L (0.7-2.0)
[2024-11-12] MEDS: methylPREDNISolone SOD SUCC 125 MG VIAL 60 MG IV PUSH ×2 (17:25→23:30)
[2024-11-12] MEDS: RIVAROXABAN 20 MG TABLET PO (17:26)
[2024-11-12] MEDS: LACTATED RINGERS 1,000 ML 150 ML IV CONT (18:38)
[2024-11-12 18:53] LABS: Procalcitonin 1.2 ng/mL
[2024-11-12] MEDS: NEBIVOLOL HCL 5 MG TABLET PO (21:24)
[2024-11-12 21:49] LABS: Lactic Acid Reflex 4.8 mmol/L (0.7-2.0)
[2024-11-13] VITALS (18 sets, daily range): BP systolic 91–108; BP diastolic 41–54; PULSE 56–96; RESP 16–20; TEMP 36.1–36.7; O2SAT 94–98
[2024-11-13] MEDS: IPRATROPIUM 0.5 MG/ALBUTEROL SULFATE 2.5 MG AMPUL.NEB 3 ML INHALATION ×4 (01:52→21:05)
[2024-11-13 02:08] LABS: Add Urine Microscopic? YES; Appearance Urine Cloudy (Clear); Bacteria Urine None Seen /hpf; Bilirubin Urine Negative (Negative); Blood Urine Negative (Negative); Color Urine Yellow (Yellow); Glucose Urine UA Negative (Negative); Ketones Urine Negative (Negative); Leukocyte Esterase Ur Negative LEU/UL (Negative); Nitrate Urine Negative (Negative); Non Pathogenic Casts 0-2; Protein Urine 1+ mg/dL (Negative); RBC Urine 0-2 /hpf (0-2); Specific Grav Ur 1.013 (1.001-1.035); Squamous Epithelial Cell Urine None Seen /hpf (Few); WBC Urine 0-5 /hpf (0-3); pH Urine 5.5 (5.0-9.0)
[2024-11-13] MEDS: methylPREDNISolone SOD SUCC 125 MG VIAL 60 MG IV PUSH ×4 (05:34→23:00)
[2024-11-13] MEDS: LEVOTHYROXINE SODIUM 88 MCG TABLET PO (05:34)
[2024-11-13 06:56] LABS: Basophils Percent Auto 0.2 % (0.2-1.2); Hematocrit 33.5 % (37.0-47.0); Hemoglobin 10.8 g/dL (12.0-15.0); Immature Granulocyte Absolute 0.08 K/mm3 (0.00-0.031); Immature Granulocyte Percent A 0.6 % (0-0.5); Lymphocytes Percent Auto 7.1 % (18.3-44.2); Mean Corpuscular HGB Conc 32.2 g/dl (32-36); Mean Corpuscular Hemoglobin 27.1 pg (26-34); Mean Platelet Volume 10.5 fl (7.4-10.4); Monocytes Absolute Auto 0.3 K/mm3 (0.1-0.6); Monocytes Percent Auto 2.1 % (2.6-8.5); Neutrophils Absolute Auto 11.4 K/mm3 (1.3-6.7); Platelet Count Result 226 k/mm3 (150-375); Red Blood Count 3.99 M/mm3 (4.2-5.4); Red Cell Distribution Width 13.3 % (11.5-14.5); White Blood Count 12.6 K/mm3 (4.5-10.0)
[2024-11-13 06:59] LABS: Lactic Acid Reflex 1.2 mmol/L (0.7-2.0)
[2024-11-13 07:02] LABS: Alanine Aminotransferase 22 U/L (6-35); Albumin Level 3.3 g/dL (3.5-5.1); Alkaline Phosphatase 88 U/L (38-126); Anion Gap 8 mmol/L (4-12); Aspartate Amino Transferase 23 U/L (14-36); Bilirubin,Total 0.6 mg/dL (0.2-1.3); Blood Urea Nitrogen 12 mg/dL (7-17); Carbon Dioxide 24 mmol/L (22-30); Chloride 105 mmol/L (98-107); Estimated CRCL calculation 73 ml/min; Estimated Glomerular Filt Rate > 60; Glucose 126 mg/dL (65-110); Potassium 3.8 mmol/L (3.4-5.0); Sodium 137 mmol/L (137-145)
--- NOTE | 2024-11-13 07:23 | P.PNIM_ITS ---
Progress Note: A&P Assessment and Plan (1) Acute hypoxemic respiratory failure: Code(s): J96.01 - Acute respiratory failure with hypoxia Status: Acute Assessment and Plan: - CXR: No acute cardiopulmonary disease. - EKG, initial: Sinus tachycardia, rate 102, possible right ventricular conduction delay, delayed precordial RS transition, borderline EKG. When compared to EKG done in June of 2024, heart rate has increased. - viral PCR negative - Hgb 13.2 - Suspect viral illness and COPD exacerbation. Cannot exclude pna, however not seen on CXR. - Continue supplemental O2 to maintain O2 saturation greater than 92%, wean as tolerated. down to 2 liters per nasal canula this am. - repeat CXR in am (2) Sepsis: Qualifiers: Acute respiratory failure type: with hypoxia Sepsis acute organ dysfunction status: with acute organ dysfunction Sepsis type: sepsis due to unspecified organism Severe sepsis acute organ dysfunction type: acute respiratory failure Severe sepsis shock status: without septic shock Qualified Code(s): A41.9 - Sepsis, unspecified organism; R65.20 - Severe sepsis without septic shock; J96.01 - Acute respiratory failure with hypoxia Code(s): A41.9 - Sepsis, unspecified organism Status: Acute Assessment and Plan: - meets SIRS criteria: HR, RR, WBC. +hypoxia. - lactic acid: 4.8 -> 1.2, trend down - lactic elevated, procalcitonin added - 30 mL/kg = 2.2 L, 1L in ED. 2nd L ordered. - started on ceftriaxone and azithromycin - blood cultures drawn on 11/12, follow - check UA (3) COPD exacerbation: Code(s): J44.1 - Chronic obstructive pulmonary disease with (acute) exacerbation Status: Acute Assessment and Plan: - DuoNeb denzel - Solu-Medrol 60 IV q.6 - started on ceftriaxone and azithromycin on 11/12 - continue maintenance medications: Entocort PO, Advair BID. - supportive care Plan Diet: Heart healthy GI Prophylaxis: Not currently indicated DVT Prophylaxis: Xarelto Lines: Peripheral Code Status: Full code Time Spent With Patient Time with patient: Greater than 35 minutes (40 minutes) Subjective Date/time seen: 11/13/24 07:23 Interval history: 64 y/o F presents here with shortness of breath with PMH of COPD, hypersomnia, fibromyalgia, GERD, CAD, hypothyroidism, CVA with residual short-term memory loss, hypothyroidism, DVT, B12 and vitamin-D deficiency. Today patient reports she is feeling much better. She still has a harsh cough that continues until she vomits. She states her shortness of breath is much improved. She remains on 2 L per nasal cannula this a.m.. With hopes to wean her off today. Patient states she gets short of breath when she got up to go the bathroom however she feels if she can talk much better today. Denies any chest pain, sore throat, headache or dizziness, she denies any nausea, vomiting or diarrhea. Review of Systems Review of Systems: All systems reviewed & are unremarkable except as noted in HPI and below Exam Const: General: cooperative, comfortable, no acute distress, alert, awake and ill appearing Other: , female, modestly ill-appearing HENMT: Head: normal to inspection and normocephalic Face/Nose/Sinus: Normal nares present Mouth: Yes moist mucous membranes Other: Nasal cannula in place, tolerating well Eyes: General: appearance normal, both eyes and all related structures Sclera: sclerae normal Pupils: Equal, round and reactive pupils present EOM: EOMs intact bilaterally Neck: Neck: normal visual inspection, full ROM and supple Chest: Chest palpation & inspection: normal inspection of the chest Resp: Effort & Inspection: able to speak in complete sentences and Actively coughing Auscultation: crackles and diminished lung sounds bilateral in the lower lung leiva Other: Mild tachypnea without accessory muscle use. poor air movement, diffuse. coarse in bilateral bases without crackles. Cardio: Rate: regular rate Rhythm: regular rhythm Heart sounds: S1 normal heart sound present and S2 normal heart sound present Peripheral p ulses: Peripheral pulses 2+ throughout Other: S1-S2 present without murmur, rub, ectopy GI: Inspection: normal to inspection GI Palp: Yes Soft to palpation Auscultation: normal bowel sounds Other: Abdomen soft, nondistended, nontender. Skin: General skin exam: normal color and no rashes or lesions noted Wounds: no wounds Neuro: General: oriented to person, oriented to place, oriented to time, gait normal, tone normal and moves all extremities Cranial nerves: Yes Equal, round and reactive pupils present Speech: normal speech Motor exam (neuro): 5/5 motor strength present throughout Sensory Exam: normal sensation Other: A&O x4 Extrem: General: normal to inspection Right upper extremity: normal to inspection Left upper extremity: normal to inspection Right lower extremity: normal to inspection Left lower extremity: normal to inspection Psych: Mental Status: mental status grossly normal Affect: normal affect Other: Good insight and judgment, pleasant Objective Data Vital Signs Vital Signs: Vital Signs - 24 hr 11/12/24 10:34 11/12/24 11:10 11/12/24 11:14 Temperature 99.3 F 99.3 F Pulse Rate 68 68 Respiratory Rate 20 20 Blood Pressure 115/56 L 115/56 L Pulse Oximetry 91 91 91 Oxygen Delivery Room Air Room Air Oxygen Flow Rate 11/12/24 11:16 11/12/24 12:05 11/12/24 12:44 Temperature Pulse Rate 98 106 H 121 H Respiratory Rate 33 H Blood Pressure 120/58 L Pulse Oximetry 93 98 Oxygen Delivery Oxygen Flow Rate 11/12/24 12:45 11/12/24 12:51 11/12/24 13:00 Temperature Pulse Rate 126 H 125 H 123 H Respiratory Rate 29 H 31 H 36 H Blood Pressure 102/66 Pulse Oximetry 98 98 98 Oxygen Delivery Oxygen Flow Rate 11/12/24 13:01 11/12/24 13:15 11/12/24 13:26 Temperature Pulse Rate 122 H 119 H Respiratory Rate 33 H 30 H Blood Pressure 106/57 L Pulse Oximetry 97 90 92 Oxygen Delivery Room Air Oxygen Flow Rate 11/12/24 13:30 11/12/24 13:38 11/12/24 13:45 Temperature Pulse Rate 110 H 104 H Respiratory Rate 28 H 24 H Blood Pressure Pulse Oximetry 88 L 100 94 Oxygen Delivery Nasal Cannula Oxygen Flow Rate 2 11/12/24 14:00 11/12/24 14:01 11/12/24 14:15 Temperature Pulse Rate 105 H 103 H 104 H Respiratory Rate 23 H 30 H 28 H Blood Pressure 103/56 L Pulse Oximetry 98 99 95 Oxygen Delivery Oxygen Flow Rate 11/12/24 15:22 11/12/24 16:00 11/12/24 16:05 Temperature 97.8 F Pulse Rate 101 H 92 Respiratory Rate 30 H 22 H Blood Pressure 107/34 L 106/46 L Pulse Oximetry 95 94 94 Oxygen Delivery Nasal Cannula Oxygen Flow Rate 2 11/12/24 20:00 11/12/24 20:43 11/12/24 20:43 Temperature 97.7 F Pulse Rate 75 63 63 Respiratory Rate 16 17 17 Blood Pressure 111/49 L Pulse Oximetry 94 95 Oxygen Delivery Nasal Cannula Oxygen Flow Rate 2 11/12/24 20:55 11/12/24 21:24 11/12/24 23:38 Temperature 97.6 F Pulse Rate 71 80 77 Respiratory Rate 16 20 Blood Pressure 110/54 L Pulse Oximetry 98 Oxygen Delivery Oxygen Flow Rate 11/13/24 01:52 11/13/24 02:01 11/13/24 03:32 Temperature 97.2 F L Pulse Rate 70 72 96 Respiratory Rate 16 16 20 Blood Pressure 100/45 L Pulse Oximetry 96 Oxygen Delivery Oxygen Flow Rate Intake/Output Intake/Output: Intake & Output 11/10/24 11/11/24 11/12/24 11/13/24 23:59 23:59 23:59 23:59 Intake Total 2890 550 Balance 2890 550 Meds/Results Medications: Active Medications Generic Name Dose Route Start Last Admin Trade Name Freq PRN Reason Stop Dose Admin Acetaminophen 650 mg 11/12/24 16:45 Acetaminophen 325 Mg Tablet PO Q6H PRN Mild Pain (1-3) or Fever Albuterol/Ipratropium 3 ml 11/12/24 20:00 11/13/24 01:52 Ipratropium 0.5 Mg/Albuterol Sulfate 2.5 Mg Ampul.Neb 3 Ml INHALATION 3 ml Q6HRT [facility] Administration Alprazolam 0.5 mg 11/12/24 16:46 Alprazolam (*Crx) 0.5 Mg Tablet PO BID PRN anxiety Aspirin 81 mg 11/13/24 09:00 Aspirin 81 Mg Chewable Tablet PO DAILY [facility] Atorvastatin Calcium 40 mg 11/13/24 09:00 Atorvastatin 40 Mg Tablet PO DAILY [facility] Benzonatate 100 mg 11/12/24 16:45 Benzonatate 100 Mg Capsule PO TID PRN Cough Budesonide 3 mg 11/13/24 09:00 Budesonide 3 Mg Cap.Sr.24h PO DAILY [facility] Cyanocobalamin 1,000 mcg 11/13/24 09:00 Cyanocobalamin 1,000 Mcg Tablet PO MoWeFr@0900 [facility] Cyclobenzaprine HCl 10 mg 11/12/24 16:46 Cyclobenzaprine Hcl 10 Mg Tablet PO TID PRN Muscle Spasm Dicyclomine HCl 10 mg 11/12/24 16:46 Dicyclomine Hcl 10 Mg Capsule PO BID PRN abdominal pain Ergocalciferol 50,000 units 11/28/24 09:00 Ergocalciferol 50,000 Units Capsule PO MONTHLY [facility] Ferrous Sulfate 325 mg 11/13/24 09:00 Ferrous Sulfate [address] BY MOUTH DAILY [facility] Fluticasone Propionate 2 spray 11/13/24 09:00 Fluticasone Propionate 0.05% Na Spr 16 Gm Btl (*Bkc) NASAL DAILY [facility] Folic Acid 1 mg 11/13/24 09:00 Folic Acid 1 Mg Tablet PO DAILY [facility] Guaifenesin 600 mg 11/12/24 16:45 Guaifenesin 12 Hr 600 Mg Tabcr PO Q12HR PRN Congestion Ceftriaxone Sodium 1 gm in 50 mls @ 100 mls/hr 11/13/24 12:00 Rocephin 1 Gm/Ns 50 Ml IVPB Q24H [facility] Azithromycin 500 mg in 250 mls @ 250 mls/hr 11/13/24 12:00 Zithromax IVPB Q24H [facility] Lactobacillus Acidophilus 2 tablet 11/13/24 09:00 Acidophilus/Bulgaricus Chewable Tablet BY MOUTH DAILY [facility] Levothyroxine Sodium 88 mcg 11/13/24 06:30 11/13/24 05:34 Levothyroxine Sodium 88 Mcg Tablet PO 88 mcg DAILY@0630 [facility] Administration Methylprednisolone Sodium Succinate 60 mg 11/12/24 18:00 11/13/24 05:34 Methylprednisolone Sod Succ 125 Mg Vial IV PUSH 11/17/24 17:59 60 mg Q6HR [facility] Administration Miconazole Nitrate 1 applic 11/12/24 16:46 Miconazole Nitrate 2% Cream 30 Gm Tube TOPICAL BID PRN rash Nebivolol 5 mg 11/12/24 21:00 11/12/24 21:24 Nebivolol Hcl 5 Mg Tablet PO 5 mg HS [facility] Administration Ondansetron HCl 4 mg 11/12/24 16:46 Ondansetron Hcl Odt 4 Mg Tablet PO Q8H PRN nausea and vomiting Pantoprazole Sodium 20 mg 11/13/24 09:00 Pantoprazole Sod Sesquihydrate 20 Mg Tab PO DAILY [facility] Rivaroxaban 20 mg 11/12/24 17:05 11/12/24 17:26 Rivaroxaban 20 Mg Tablet PO 20 mg DAILY@1700 [facility] Administration Fluticasone/Salmeterol 2 puff 11/12/24 20:00 11/12/24 22:32 Fluticasone/Salmeterol 230-21 Mcg Inhaler 1 Puff INHALATION Not Given Q12HRT [facility] Vitamin D 1,000 units 11/13/24 09:00 Cholecalciferol 1,000 Units Tablet PO MoWeFr@0900 [facility] Radiology Results: ITS Impressions Chest X-Ray 11/12/24 11:45 IMPRESSION: 1. No acute cardiopulmonary disease. Labs Labs: Laboratory Results - last 24 hr 11/12/24 11/12/24 11/12/24 11:30 11:58 16:30 WBC 13.1 H RBC 4.82 Hgb 13.2 Hct 40.5 MCV 84.0 MCH 27.4 MCHC 32.6 RDW 13.4 Plt Count 271 MPV 10.2 Immature Gran % (Auto) 0.5 Neut % (Auto) 83.0 H Lymph % (Auto) 9.2 L [place] % (Auto) 7.1 Eos % (Auto) 0.0 Baso % (Auto) 0.2 Lymph # (Auto) 1.21 [place] # (Auto) 0.9 H Eos # (Auto) 0.0 Baso # (Auto) 0.0 Abs Immat Gran (auto) 0.07 H Absolute Neuts (auto) 10.9 H Absolute Nucleated RBC 0.000 Nucleated RBC % 0.0 PT 14.5 INR 1.1 APTT 34.3 Sodium 136 L Potassium 3.4 Chloride 99 Carbon Dioxide 22 Anion Gap 15 H BUN 13 Creatinine 1.05 H Estim Creat Clear Calc 49 Estimated GFR 53 L Glucose 111 H Lactic Acid 2.1 H 7.2 H* Calcium 8.6 Total Bilirubin 1.5 H AST 32 ALT 26 Alkaline Phosphatase 111 Total Protein 8.0 Albumin 3.8 Procalcitonin 1.2 Urine Color Urine Appearance Urine pH Ur Specific [place] Urine Protein Urine Glucose (UA) Urine Ketones Ur Blood (Man) Urine Nitrate Urine Bilirubin Urine Urobilinogen Leukocyte Esterase Rfl Urine RBC Urine WBC Ur Squamous Epith Cells Urine Bacteria Urine Casts Influenza A (RT-PCR) Negative Influenza B (RT-PCR) Negative RSV (RT-PCR) Negative SARS-CoV-2 RNA (RT-PCR) Negative 11/12/24 11/13/24 11/13/24 21:05 01:52 06:09 WBC 12.6 H RBC 3.99 L Hgb 10.8 L Hct 33.5 L MCV 84.0 MCH 27.1 MCHC 32.2 RDW 13.3 Plt Count 226 MPV 10.5 H Immature Gran % (Auto) 0.6 H Neut % (Auto) 90.0 H Lymph % (Auto) 7.1 L [place] % (Auto) 2.1 L Eos % (Auto) 0.0 Baso % (Auto) 0.2 Lymph # (Auto) 0.90 [place] # (Auto) 0.3 Eos # (Auto) 0.0 Baso # (Auto) 0.0 Abs Immat Gran (auto) 0.08 H Absolute Neuts (auto) 11.4 H Absolute Nucleated RBC 0.000 Nucleated RBC % 0.0 PT INR APTT Sodium 137 Potassium 3.8 Chloride 105 Carbon Dioxide 24 Anion Gap 8 BUN 12 Creatinine 0.68 L Estim Creat Clear Calc 73 Estimated GFR > 60 Glucose 126 H Lactic Acid 4.8 H* 1.2 Calcium 9.0 Total Bilirubin 0.6 AST 23 ALT 22 Alkaline Phosphatase 88 Total Protein 7.0 Albumin 3.3 L Procalcitonin Urine Color Yellow Urine Appearance Cloudy H Urine pH 5.5 Ur Specific [place] 1.013 Urine Protein 1+ H Urine Glucose (UA) Negative Urine Ketones Negative Ur Blood (Man) Negative Urine Nitrate Negative Urine Bilirubin Negative Urine Urobilinogen 1.0 Leukocyte Esterase Rfl Negative Urine RBC 0-2 Urine WBC 0-5 Ur Squamous Epith Cells None seen Urine Bacteria None seen Urine Casts 0-2 Influenza A (RT-PCR) Influenza B (RT-PCR) RSV (RT-PCR) SARS-CoV-2 RNA (RT-PCR) Quality VTE Prophylaxis VTE prophylaxis: pharmacologic ordered Hospitalist MIPS Advance Care Plan I have confirmed that the patient's Advanced Care Plan is present, code status is documented, or surrogate decision maker is listed in patient medical record.: Yes Medication Reconciliation I have utilized all available resources to obtain, update and review the patients current medications (includes all prescriptions, OTC, herbals, cannabis, and nutritional supplements).: Yes
[2024-11-13] MEDS: FLUTICASONE/SALMETEROL 230-21 MCG INHALER 1 PUFF 2 PUFF INHALATION ×2 (07:32→21:05)
[2024-11-13] MEDS: BUDESONIDE 3 MG CAP.SR.24H PO (09:53)
[2024-11-13] MEDS: ACIDOPHILUS/BULGARICUS CHEWABLE TABLET 2 TABLET BY MOUTH (09:53)
[2024-11-13] MEDS: ASPIRIN 81 MG CHEWABLE TABLET PO (09:53)
[2024-11-13] MEDS: FERROUS SULFATE 325 MG TABLET DR BY MOUTH (09:54)
[2024-11-13] MEDS: PANTOPRAZOLE SOD SESQUIHYDRATE 20 MG TAB PO (09:54)
[2024-11-13] MEDS: FOLIC ACID 1 MG TABLET PO (09:54)
[2024-11-13] MEDS: ATORVASTATIN 40 MG TABLET PO (09:54)
[2024-11-13] MEDS: FLUTICASONE PROPIONATE 0.05% NA SPR 16 GM BTL (*BKC) 2 SPRAY NASAL (09:56)
[2024-11-13] MEDS: MICONAZOLE NITRATE 2% CREAM 30 GM TUBE 1 APPLIC TOPICAL (09:57)
[2024-11-13] MEDS: CHOLECALCIFEROL 1,000 UNITS TABLET 1000 UNITS PO (10:01)
[2024-11-13] MEDS: CYANOCOBALAMIN 1,000 MCG TABLET 1000 MCG PO (10:01)
[2024-11-13] MEDS: BENZONATATE 100 MG CAPSULE PO ×3 (13:11→22:19)
[2024-11-13] MEDS: AZITHROMYCIN 500 MG/NS 250 ML 500 MG/250 ML BAG 250 MG IVPB (13:11)
[2024-11-13] MEDS: guaiFENesin 12 HR 600 MG TABCR 1200 MG PO ×2 (13:12→20:24)
[2024-11-13] MEDS: RIVAROXABAN 20 MG TABLET PO (17:22)
[2024-11-13] MEDS: NEBIVOLOL HCL 5 MG TABLET PO (20:24)
[2024-11-13] MEDS: ALPRAZolam (*CRX) 0.5 MG TABLET PO (22:48)
[2024-11-14] VITALS (12 sets, daily range): BP systolic 91–121; BP diastolic 31–69; PULSE 50–81; RESP 16–20; TEMP 36.4–36.6; O2SAT 90–98
[2024-11-14] MEDS: methylPREDNISolone SOD SUCC 125 MG VIAL 60 MG IV PUSH ×2 (06:08→17:58)
[2024-11-14] MEDS: LEVOTHYROXINE SODIUM 88 MCG TABLET PO (06:08)
[2024-11-14 06:26] LABS: Basophils Percent Auto 0.2 % (0.2-1.2); Eosinophils Absolute Auto 0.1 K/mm3 (0-0.3); Eosinophils Percent Auto 0.5 % (0-4.4); Hematocrit 33.7 % (37.0-47.0); Hemoglobin 10.5 g/dL (12.0-15.0); Immature Granulocyte Absolute 0.47 K/mm3 (0.00-0.031); Immature Granulocyte Percent A 2.4 % (0-0.5); Lymphocytes Absolute Auto 0.76 K/mm3 (0.9-3.2); Lymphocytes Percent Auto 3.9 % (18.3-44.2); Mean Corpuscular HGB Conc 31.2 g/dl (32-36); Mean Corpuscular Hemoglobin 27.1 pg (26-34); Mean Corpuscular Volume 87.1 fl (80-100); Mean Platelet Volume 10.9 fl (7.4-10.4); Monocytes Absolute Auto 0.5 K/mm3 (0.1-0.6); Monocytes Percent Auto 2.3 % (2.6-8.5); Neutrophils Absolute Auto 17.8 K/mm3 (1.3-6.7); Neutrophils Percent Auto 90.7 % (45.5-73.1); Platelet Count Result 257 k/mm3 (150-375); Red Blood Count 3.87 M/mm3 (4.2-5.4); Red Cell Distribution Width 13.9 % (11.5-14.5); White Blood Count 19.6 K/mm3 (4.5-10.0)
[2024-11-14 06:38] LABS: Magnesium 2.5 mg/dL (1.6-2.3)
[2024-11-14] MEDS: IPRATROPIUM 0.5 MG/ALBUTEROL SULFATE 2.5 MG AMPUL.NEB 3 ML INHALATION ×3 (07:22→19:50)
[2024-11-14] MEDS: FLUTICASONE/SALMETEROL 230-21 MCG INHALER 1 PUFF 2 PUFF INHALATION ×2 (07:34→19:51)
[2024-11-14] MEDS: ASPIRIN 81 MG CHEWABLE TABLET PO (08:55)
[2024-11-14] MEDS: ACIDOPHILUS/BULGARICUS CHEWABLE TABLET 2 TABLET BY MOUTH (08:55)
[2024-11-14] MEDS: FERROUS SULFATE 325 MG TABLET DR BY MOUTH (08:55)
[2024-11-14] MEDS: ATORVASTATIN 40 MG TABLET PO (08:55)
[2024-11-14] MEDS: BUDESONIDE 3 MG CAP.SR.24H PO (08:55)
[2024-11-14] MEDS: PANTOPRAZOLE SOD SESQUIHYDRATE 20 MG TAB PO (08:56)
[2024-11-14] MEDS: FOLIC ACID 1 MG TABLET PO (08:56)
[2024-11-14] MEDS: FLUTICASONE PROPIONATE 0.05% NA SPR 16 GM BTL (*BKC) 2 SPRAY NASAL (08:56)
[2024-11-14] MEDS: guaiFENesin 12 HR 600 MG TABCR 1200 MG PO ×2 (08:56→20:49)
[2024-11-14] MEDS: BENZONATATE 100 MG CAPSULE PO ×3 (08:57→17:53)
--- NOTE | 2024-11-14 10:39 | PM.IMPN ---
Progress Note: A&P Assessment and Plan (1) Sepsis: Qualifiers: Acute respiratory failure type: with hypoxia Sepsis acute organ dysfunction status: with acute organ dysfunction Sepsis type: sepsis due to unspecified organism Severe sepsis acute organ dysfunction type: acute respiratory failure Severe sepsis shock status: without septic shock Qualified Code(s): A41.9 - Sepsis, unspecified organism; R65.20 - Severe sepsis without septic shock; J96.01 - Acute respiratory failure with hypoxia Code(s): A41.9 - Sepsis, unspecified organism Status: Acute Assessment and Plan: Initially meeting sepsis criteria with elevated heart rate, tachypnea, elevated white blood cell count, elevated lactate, chest x-ray showing possible pneumonia, and hypoxia Lactic acid 2.1> 7.2> 4.8> 1.2 Procalcitonin 1.2 Patient was given 2 L of IV fluids Continue Rocephin and azithromycin Blood cultures were obtained and showing no growth to date on preliminary read UA showed cloudy urine appearance, 1+ urine protein otherwise negative. (2) Acute hypoxemic respiratory failure: Code(s): J96.01 - Acute respiratory failure with hypoxia Status: Acute Assessment and Plan: Possibly COPD exacerbation versus pneumonia Chest x-ray showed pulmonary opacities representing respiratory bronchiolitis Continue Rocephin and azithromycin Keep O2 saturation greater than 92%, currently on room air Continue incentive spirometry Continue DuoNebs Continue Tessalon Perles Continue guaifenesin Respiratory panel was negative for influenza a and B, RSV, COVID (3) Pneumonia: Code(s): J18.9 - Pneumonia, unspecified organism Status: Acute Assessment and Plan: See above (4) COPD exacerbation: Code(s): J44.1 - Chronic obstructive pulmonary disease with (acute) exacerbation Status: Acute Assessment and Plan: Will decrease Solu-Medrol down to 60 mg IV push q.12 hour Continue Rocephin and azithromycin Continue DuoNeb Time Spent With Patient Time with patient: 25 - 35 minutes Subjective Date/time seen: 11/14/24 10:39 Interval history: Interval history: This is a 64-year-old female with significant past medical history of COPD, hypersomnia, fibromyalgia, GERD, coronary artery disease, hypothyroidism, CVA with residual short-term memory loss, DVT, vitamin-D and B12 deficiency who presented to the hospital with shortness of breath. Workup in the hospital included a chest x-ray which showed pulmonary opacities representing mild interstitial edema or respiratory bronchiolitis. Initial labs shown a white blood cell count of 13.1, sodium 136, anion gap 15, creatinine 1.05, EGFR 53, lactic acid 2.1> 7.2> 4.8> 1.2, total bilirubin 1.5, procalcitonin 1.2. UA showed cloudy urine appearance, 1+ urine protein, otherwise negative. Respiratory panel was negative for influenza a and B, RSV, COVID. Patient was initiated on azithromycin and Rocephin. Subjective: Patient denies any new complaints today. Labs and imaging reviewed. Review of Systems Review of Systems: All systems reviewed & are unremarkable except as noted in HPI and below Exam Narrative: General: In no acute distress, well nourished Head: atraumatic, no encephalopathy Eyes: PERRLA, sclera clear ENT: moist mucous membranes, nasal passages clear Neck: supple, no JVD, no adenopathy, trachea midline Cardiac: Normal S1 and S2. No murmur, gallops or friction rubs, peripheral pulses intact. Respiratory: Lungs anterior expiratory wheezing, no other adventitious lung sounds, currently on room air, productive cough Gastrointestinal: soft, non-distended, non-tender, normoactive bowel sounds. : voiding without difficulty. Extremities: moves all extremities well, no edema Skin: clean, dry, intact. No wounds or lesions. Neuro: Alert and oriented x4, cranial nerves intact, no neuro deficits. Psych: normal mood, normal affect, interactive Objective Data Vital Signs Vital Signs: Vital Signs - 24 hr 11/13/24 12:00 11/13/24 13:53 11/13/24 14:00 Temperature 97.6 F 97.6 F Pulse Rate 63 64 63 Respiratory Rate 18 18 18 Blood Pressure 91/54 L 95/47 L Pulse Oximetry 98 98 Oxygen Delivery Fraction of Inspired Oxygen 11/13/24 14:05 11/13/24 16:00 11/13/24 20:00 Temperature 97.9 F 98.1 F Pulse Rate 72 56 L 65 Respiratory Rate 18 18 16 Blood Pressure 91/41 L 108/50 L Pulse Oximetry 94 96 Oxygen Delivery Fraction of Inspired Oxygen 11/13/24 20:00 11/13/24 20:24 11/13/24 21:06 Temperature Pulse Rate 64 60 Respiratory Rate 18 Blood Pressure Pulse Oximetry Oxygen Delivery Room Air Fraction of Inspired Oxygen 11/13/24 21:08 11/13/24 21:21 11/14/24 00:00 Temperature 97.7 F Pulse Rate 65 74 Respiratory Rate 18 20 Blood Pressure 91/69 L Pulse Oximetry 94 91 Oxygen Delivery Room Air Fraction of Inspired Oxygen 11/14/24 04:00 11/14/24 07:22 11/14/24 07:22 Temperature 97.9 F Pulse Rate 75 52 L Respiratory Rate 16 16 Blood Pressure 100/65 Pulse Oximetry 93 95 Oxygen Delivery Room Air Fraction of Inspired Oxygen 21 11/14/24 07:34 Temperature Pulse Rate 50 L Respiratory Rate 16 Blood Pressure Pulse Oximetry Oxygen Delivery Fraction of Inspired Oxygen Intake/Output Intake/Output: Intake & Output 11/11/24 11/12/24 11/13/24 11/14/24 23:59 23:59 23:59 23:59 Intake Total 2890 1310 515 Balance 2890 1310 515 Meds/Results Medications: Active Medications Generic Name Dose Route Start Last Admin Trade Name Freq PRN Reason Stop Dose Admin Acetaminophen 650 mg 11/12/24 16:45 Acetaminophen 325 Mg Tablet PO Q6H PRN Mild Pain (1-3) or Fever Albuterol/Ipratropium 3 ml 11/12/24 20:00 11/14/24 07:22 Ipratropium 0.5 Mg/Albuterol Sulfate 2.5 Mg Ampul.Neb 3 Ml INHALATION 3 ml Q6HRT [facility] Administration Alprazolam 0.5 mg 11/12/24 16:46 11/13/24 22:48 Alprazolam (*Crx) 0.5 Mg Tablet PO 0.5 mg BID PRN Administration anxiety Aspirin 81 mg 11/13/24 09:00 11/14/24 08:55 Aspirin 81 Mg Chewable Tablet PO 81 mg DAILY [facility] Administration Atorvastatin Calcium 40 mg 11/13/24 09:00 11/14/24 08:55 Atorvastatin 40 Mg Tablet PO 40 mg DAILY [facility] Administration Azithromycin 500 mg 11/15/24 09:00 Azithromycin 250 Mg Tablet PO DAILY [facility] Benzonatate 100 mg 11/13/24 10:40 11/14/24 08:57 Benzonatate 100 Mg Capsule PO 100 mg TID [facility] Administration Budesonide 3 mg 11/13/24 09:00 11/14/24 08:55 Budesonide 3 Mg Cap.Sr.24h PO 3 mg DAILY [facility] Administration Cyanocobalamin 1,000 mcg 11/13/24 09:00 11/13/24 10:01 Cyanocobalamin 1,000 Mcg Tablet PO 1,000 mcg MoWeFr@0900 [facility] Administration Cyclobenzaprine HCl 10 mg 11/12/24 16:46 Cyclobenzaprine Hcl 10 Mg Tablet PO TID PRN Muscle Spasm Dicyclomine HCl 10 mg 11/12/24 16:46 Dicyclomine Hcl 10 Mg Capsule PO BID PRN abdominal pain Ergocalciferol 50,000 units 11/28/24 09:00 Ergocalciferol 50,000 Units Capsule PO [facility] Ferrous Sulfate 325 mg 11/13/24 09:00 11/14/24 08:55 Ferrous Sulfate [address] BY MOUTH 325 mg DAILY [facility] Administration Fluticasone Propionate 2 spray 11/13/24 09:00 11/14/24 08:56 Fluticasone Propionate 0.05% Na Spr 16 Gm Btl (*Bkc) NASAL 2 spray DAILY [facility] Administration Folic Acid 1 mg 11/13/24 09:00 11/14/24 08:56 Folic Acid 1 Mg Tablet PO 1 mg DAILY [facility] Administration Guaifenesin 1,200 mg 11/13/24 10:40 11/14/24 08:56 Guaifenesin 12 Hr 600 Mg Tabcr PO 1,200 mg Q12HR [facility] Administration Ceftriaxone Sodium 1 gm in 50 mls @ 100 mls/hr 11/13/24 12:00 11/13/24 12:33 Rocephin 1 Gm/Ns 50 Ml IVPB 100 mls/hr Q24H [facility] Administration Lactobacillus Acidophilus 2 tablet 11/13/24 09:00 11/14/24 08:55 Acidophilus/Bulgaricus Chewable Tablet BY MOUTH 2 tablet DAILY [facility] Administration Levothyroxine Sodium 88 mcg 11/13/24 06:30 11/14/24 06:08 Levothyroxine Sodium 88 Mcg Tablet PO 88 mcg DAILY@0630 [facility] Administration Methylprednisolone Sodium Succinate 60 mg 11/14/24 17:00 Methylprednisolone Sod Succ 125 Mg Vial IV PUSH 11/17/24 17:59 BID [facility] Miconazole Nitrate 1 applic 11/12/24 16:46 11/13/24 09:57 Miconazole Nitrate 2% Cream 30 Gm Tube TOPICAL 1 applic BID PRN Administration rash Nebivolol 5 mg 11/12/24 21:00 11/13/24 20:24 Nebivolol Hcl 5 Mg Tablet PO 5 mg HS [facility] Administration Ondansetron HCl 4 mg 11/12/24 16:46 Ondansetron Hcl Odt 4 Mg Tablet PO Q8H PRN nausea and vomiting Pantoprazole Sodium 20 mg 11/13/24 09:00 11/14/24 08:56 Pantoprazole Sod Sesquihydrate 20 Mg Tab PO 20 mg DAILY [facility] Administration Rivaroxaban 20 mg 11/12/24 17:05 11/13/24 17:22 Rivaroxaban 20 Mg Tablet PO 20 mg DAILY@1700 [facility] Administration Fluticasone/Salmeterol 2 puff 11/12/24 20:00 11/14/24 07:34 Fluticasone/Salmeterol 230-21 Mcg Inhaler 1 Puff INHALATION 2 puff Q12HRT [facility] Administration Vitamin D 1,000 units 11/13/24 09:00 11/13/24 10:01 Cholecalciferol 1,000 Units Tablet PO 1,000 units MoWeFr@0900 [facility] Administration Radiology Results: ITS Impressions Chest X-Ray 11/12/24 11:45 IMPRESSION: 1. No acute cardiopulmonary disease. Labs Labs: Laboratory Results - last 24 hr 11/14/24 05:48 WBC 19.6 H RBC 3.87 L Hgb 10.5 L Hct 33.7 L MCV 87.1 MCH 27.1 MCHC 31.2 L RDW 13.9 Plt Count 257 MPV 10.9 H Immature Gran % (Auto) 2.4 H Neut % (Auto) 90.7 H Lymph % (Auto) 3.9 L [place] % (Auto) 2.3 L Eos % (Auto) 0.5 Baso % (Auto) 0.2 Lymph # (Auto) 0.76 L [place] # (Auto) 0.5 Eos # (Auto) 0.1 Baso # (Auto) 0.0 Abs Immat Gran (auto) 0.47 H Absolute Neuts (auto) 17.8 H Absolute Nucleated RBC 0.000 Nucleated RBC % 0.0 Magnesium 2.5 H Quality VTE Prophylaxis VTE prophylaxis: pharmacologic ordered
[2024-11-14] MEDS: RIVAROXABAN 20 MG TABLET PO (17:52)
[2024-11-14] MEDS: NEBIVOLOL HCL 5 MG TABLET PO (20:47)
[2024-11-14] MEDS: ALPRAZolam (*CRX) 0.5 MG TABLET PO (20:47)
[2024-11-15 02:17] VITALS: PULSE 81; RESP 20
[2024-11-15 02:28] VITALS: PULSE 81; RESP 20
[2024-11-15] MEDS: IPRATROPIUM 0.5 MG/ALBUTEROL SULFATE 2.5 MG AMPUL.NEB 3 ML INHALATION ×2 (02:37→07:37)
[2024-11-15] MEDS: LEVOTHYROXINE SODIUM 88 MCG TABLET PO (05:17)
[2024-11-15 05:31] VITALS: BP 105/61; PULSE 54; RESP 20; TEMP 36.2; O2SAT 98
[2024-11-15 07:06] LABS: Basophils Percent Auto 0.2 % (0.2-1.2); Hematocrit 31.4 % (37.0-47.0); Immature Granulocyte Absolute 0.15 K/mm3 (0.00-0.031); Immature Granulocyte Percent A 1.3 % (0-0.5); Mean Corpuscular HGB Conc 31.8 g/dl (32-36); Mean Corpuscular Hemoglobin 27.3 pg (26-34); Mean Corpuscular Volume 85.8 fl (80-100); Mean Platelet Volume 11.1 fl (7.4-10.4); Monocytes Absolute Auto 0.4 K/mm3 (0.1-0.6); Monocytes Percent Auto 3.3 % (2.6-8.5); Neutrophils Absolute Auto 10.4 K/mm3 (1.3-6.7); Neutrophils Percent Auto 89.2 % (45.5-73.1); Platelet Count Result 296 k/mm3 (150-375); Red Blood Count 3.66 M/mm3 (4.2-5.4); White Blood Count 11.7 K/mm3 (4.5-10.0)
--- NOTE | 2024-11-15 07:14 | P.DS_ITS ---
DS: Admitting Diagnosis Discharge Date 11/15/24 Admitting Diagnosis Acute hypoxemic respiratory failure Sepsis COPD exacerbation DS: Discharge Diagnosis Discharge Diagnosis (1) Sepsis: Qualifiers: Acute respiratory failure type: with hypoxia Sepsis acute organ dysfunction status: with acute organ dysfunction Sepsis type: sepsis due to unspecified organism Severe sepsis acute organ dysfunction type: acute respiratory failure Severe sepsis shock status: without septic shock Qualified Code(s): A41.9 - Sepsis, unspecified organism; R65.20 - Severe sepsis without septic shock; J96.01 - Acute respiratory failure with hypoxia Code(s): A41.9 - Sepsis, unspecified organism Status: Acute (2) Acute hypoxemic respiratory failure: Code(s): J96.01 - Acute respiratory failure with hypoxia Status: Acute (3) Pneumonia: Code(s): J18.9 - Pneumonia, unspecified organism Status: Acute (4) COPD exacerbation: Code(s): J44.1 - Chronic obstructive pulmonary disease with (acute) exacerbation Status: Acute Assessment and Plan: Acute hypoxic respiratory failure Sepsis COPD exacerbation DS: Summary Hospital Course Reason for hospitalization: Acute hypoxic respiratory failure Sepsis COPD exacerbation Hospital Course: This is a 64-year-old female with significant past medical history of COPD, hypersomnia, fibromyalgia, GERD, coronary artery disease, hypothyroidism, CVA with residual short-term memory loss, DVT, vitamin-D and B12 deficiency who presented to the hospital with shortness of breath. Workup in the hospital included a chest x-ray which showed pulmonary opacities representing mild interstitial edema or respiratory bronchiolitis. Initial labs shown a white blo od cell count of 13.1, sodium 136, anion gap 15, creatinine 1.05, EGFR 53, lactic acid 2.1> 7.2> 4.8> 1.2, total bilirubin 1.5, procalcitonin 1.2. UA showed cloudy urine appearance, 1+ urine protein, otherwise negative. Respiratory panel was negative for influenza a and B, RSV, COVID. Patient was initiated on azithromycin and Rocephin. Her oxygen was weaned to off. Antibiotics switched to oral Cefdinir and Azithromycin considering long list of allergies. She has an appointment set up Saturday with plodding machine operator. VSS, she is afebrile, currently on room air. She stopped smoking 1 month ago and wants to continue cessation. She is stable for discharge at this time. Patient was prescribed a nebulizer with duonebs, prednisone taper, Mucinex, and antibiotics. She will also need to follow up with primary care doctor in 1 week. Final diagnosis: Acute hypoxic respiratory failure, community acquired pneumonia, sepsis, COPD exacerbation Status at Discharge Cognitive/behavioral status at discharge: Alert and oriented x3 Functional status at discharge: independent ambulation Overall status at discharge: patient is progressing back to baseline Time Spent with Patient Time attestation: Total time spent providing and/or coordinating discharge services: Time spent: Greater than 30 minutes Exam Narrative: General: In no acute distress, well nourished Cardiac: Normal S1 and S2. No murmur, gallops or friction rubs, peripheral pulses intact. Respiratory: Lungs anterior expiratory wheezing, no other adventitious lung sounds, currently on room air, productive cough Gastrointestinal: soft, non-distended, non-tender, normoactive bowel sounds. : voiding without difficulty. Neuro: Alert and oriented x4 DS: Data Data Completed and Pending Completed studies during hospitalization: Chest x ray x2 Pending studies at discharge: Blood cultures Labs on day of discharge: Labs from last 24 hours 11/15/24 11/15/24 06:35 06:34 WBC Pending RBC Pending Hgb Pending Hct Pending MCV Pending MCH Pending MCHC Pending RDW Pending Plt Count Pending MPV Pending Immature Gran % (Auto) Pending Neut % (Auto) Pending Lymph % (Auto) Pending Gentry % (Auto) Pending Eos % (Auto) Pending Baso % (Auto) Pending Lymph # (Auto) Pending Gentry # (Auto) Pending Eos # (Auto) Pending Baso # (Auto) Pending Abs Immat Gran (auto) Pending Absolute Neuts (auto) Pending Absolute Nucleated RBC Pending Nucleated RBC % Pending Magnesium Pending Preliminary micro results at discharge 11/12/24 12:31 Blood Culture - Preliminary Blood 11/12/24 12:31 Blood Culture - Preliminary Blood Procedures/Treatments: None Discharge Plan Discharge Attending physician on discharge: AnjumBarrera Discharging Clinician: Marie Weeks Anticipated Discharge Date/Time: 11/15/24 07:14 Patient Disposition: Home, Self-Care Activity: as tolerated Diet: as tolerated and heart healthy Discharge Instructions: * Finish all your antibiotic as directed even if you are feeling better * Follow up with primary care doctor in 1 week * Finish steroid taper, start steroid tomorrow * You can resume your home inhalers. If you are not getting relief with inhaler you have been prescribed breathing treatments as needed for shortness of breath/ wheezing. Do not over use your inhaler or your breathing treatments. Take as directed. * Follow up with plodding machine operator on Saturday. Patient Instructions: Antibiotic Form, Rivaroxaban (By mouth) Patient Language: Khmer Stand Alone Forms: General Discharge Information Follow-up/Referrals: Boris Mcnair DO [Primary Care Provider] - 1 Week Discharge Medications: New (DME) nebulizer and compressor Device See Rx Instructions .Route Qty: 1 0RF Rx Instructions: As directed (DME) nebulizer accessories Kit See Rx Instructions .Route Qty: 1 0RF Rx Instructions: As directed guaifenesin [Mucus Relief ER] 600 mg Tablet Extended Release 12hr 1,200 mg PO Q12HR Qty: 20 0RF cefdinir 300 mg Capsule 300 mg PO Q12HR Qty: 9 0RF prednisone 10 mg tablets,dose pack See Taper PO DAILY 12 Days Qty: 42 0RF Taper: Prednisone Taper from 60 mg;12 days 60 mg DAILY for 2 Days and 0 Hour 50 mg DAILY for 2 Days and 0 Hour 40 mg DAILY for 2 Days and 0 Hour 30 mg DAILY for 2 Days and 0 Hour 20 mg DAILY for 2 Days and 0 Hour 10 mg DAILY for 2 Days and 0 Hour azithromycin [Zithromax] 250 mg Tablet 500 mg PO DAILY Qty: 6 0RF ipratropium-albuterol 0.5 mg-3 mg(2.5 mg base)/3 mL solution for nebulization 3 ml inhalation Q6H Qty: 90 0RF Continued aspirin [Baby Aspirin] 81 mg Tablet,Chewable 81 mg PO DAILY fluticasone propionate [Flonase Allergy Relief] 50 mcg/actuation spray,suspe nsion 2 spray intranasal DAILY Qty: 18 3RF Rx Instructions: administer into each nostril oxycodone-acetaminophen [Percocet] 5-325 mg tablet 1 tablet PO Q8H PRN (Reason: pain) Qty: 10 0RF Xarelto 20 mg tablet 20 mg PO DAILY folic acid 1 mg tablet 1 mg PO DAILY ergocalciferol (vitamin D2) 1,250 mcg (50,000 unit) capsule 1,250 mcg PO MONTHLY Rx Instructions: TAKE 1 CAPSULE BY MOUTH ONCE EVERY MONTH 15 th of the month Adult 50 Plus Probiotic 4 billion cell capsule 4,000 mmu cells PO DAILY Patient Comments: CURRENTLY OUT Rx Instructions: administer with a meal ferrous sulfate [Feosol] 325 mg (65 mg iron) tablet 325 mg PO DAILY budesonide 3 mg capsule,delayed,extend.release 3 mg PO DAILY Qty: 90 0RF Rx Instructions: take 6 mg daily for 4 weeks, then decrease dose to 3 mg daily for 4 weeks, then stop. ondansetron 4 mg tablet,disintegrating 4 mg PO Q8H PRN (Reason: nausea and vomiting) Qty: 90 0RF levothyroxine [Synthroid] 88 mcg tablet 88 mcg PO DAILY Qty: 90 1RF fluticasone propion-salmeterol [Advair HFA] 230-21 mcg/actuation HFA aerosol inhaler 2 puff inhalation BID Qty: 12 0RF Rx Instructions: administer with spacer albuterol sulfate [ProAir HFA] 90 mcg/actuation HFA aerosol inhaler 2 puff INHALATION Q6H PRN (Reason: Shortness Of Breath) Qty: 8.5 5RF cyclobenzaprine 10 mg tablet See Rx Instructions .ROUTE .COMPLEX Qty: 90 0RF Dose Instruction: Take 1 tablet by mouth three times daily as needed for muscle spasm Rx Instructions: Take 1 tablet by mouth three times daily as needed for muscle spasm nystatin 100,000 unit/gram cream 1 applic topical BID PRN (Reason: rash) Qty: 15 0RF atorvastatin 40 mg tablet 40 mg PO DAILY Qty: 90 1RF Rx Instructions: Take 1 tablet by mouth once daily alprazolam [Xanax] 0.5 mg tablet 0.5 mg PO BID PRN (Reason: anxiety) Qty: 60 0RF benzonatate 200 mg capsule 200 mg PO TID PRN (Reason: cough) Qty: 30 1RF cholecalciferol (vitamin D3) [Vitamin D3] 25 mcg (1,000 unit) capsule 1,000 unit PO 3XW cyanocobalamin (vitamin B-12) [Vitamin B-12] 1,000 mcg tablet 1,000 mcg PO 3XW albuterol sulfate 2.5 mg /3 mL (0.083 %) solution for nebulization 2.5 mg inhalation Q4-6H PRN (Reason: shortness of breath or wheezing) Qty: 90 1RF Rx Instructions: Please dispense 3 ml vials. nebivolol 5 mg tablet See Rx Instructions .ROUTE .COMPLEX Qty: 90 2RF Dose Instruction: TAKE 1 TABLET BY MOUTH ONCE DAILY AT BEDTIME Rx Instructions: TAKE 1 TABLET BY MOUTH ONCE DAILY AT BEDTIME pantoprazole 20 mg tablet,delayed release (DR/EC) 20 mg PO DAILY Qty: 90 4RF Rx Instructions: TAKE 1 TABLET BY MOUTH ONCE DAILY IN THE MORNING dicyclomine 10 mg capsule 10 mg PO BID PRN (Reason: abdominal pain) Qty: 60 0RF Date of admission: 11/12/24 17:32 Primary Care Provider: Boris Mcnair Admitting Provider: Erik Tse Attending physician on admission: Marie Weeks Condition: Improved Quality VTE Prophylaxis VTE prophylaxis: pharmacologic ordered Hospitalist MIPS Heart Failure (Exclusion) Patient has history of Heart Transplant or Left Ventricular Assistive Device?: No IF YES, STOP HERE Heart Failure (Qualifier) Patient has current or prior documentation of LVEF less than or equal to 40%, or mod/servere depressed LVSF?: No IF NO, STOP HERE
[2024-11-15 07:15] LABS: Magnesium 2.4 mg/dL (1.6-2.3)
[2024-11-15] MEDS: FLUTICASONE/SALMETEROL 230-21 MCG INHALER 1 PUFF 2 PUFF INHALATION (07:37)
[2024-11-15 07:42] VITALS: PULSE 58; RESP 20; O2SAT 96
[2024-11-15 07:57] VITALS: PULSE 59; RESP 20
[2024-11-15] MEDS: ATORVASTATIN 40 MG TABLET PO (08:57)
[2024-11-15] MEDS: guaiFENesin 12 HR 600 MG TABCR 1200 MG PO (08:57)
[2024-11-15] MEDS: CEFDINIR 300 MG CAPSULE PO (08:57)
[2024-11-15] MEDS: ACIDOPHILUS/BULGARICUS CHEWABLE TABLET 2 TABLET BY MOUTH (08:57)
[2024-11-15] MEDS: AZITHROMYCIN 250 MG TABLET 500 MG PO (08:57)
[2024-11-15] MEDS: BUDESONIDE 3 MG CAP.SR.24H PO (08:57)
[2024-11-15] MEDS: ASPIRIN 81 MG CHEWABLE TABLET PO (08:57)
[2024-11-15] MEDS: BENZONATATE 100 MG CAPSULE PO (08:57)
[2024-11-15] MEDS: FOLIC ACID 1 MG TABLET PO (08:57)
[2024-11-15] MEDS: PANTOPRAZOLE SOD SESQUIHYDRATE 20 MG TAB PO (08:57)
[2024-11-15] MEDS: methylPREDNISolone SOD SUCC 125 MG VIAL 60 MG IV PUSH (08:58)
[2024-11-15] MEDS: FLUTICASONE PROPIONATE 0.05% NA SPR 16 GM BTL (*BKC) 2 SPRAY NASAL (08:59)
== END 2024-11-15 13:10 | disposition home or self-care (01) | DRG 193 ==
LOC: ANHED 11:25 → ANH3MEDSUR 15:07
PROVIDERS: Nurse Practitioner Family; Student in an Organized Health Care Education/Training Program; Admitting Provider General Practice; Emergency Provider Physician Assistant; PCP Internal Medicine; Visit Provider Nurse Practitioner Acute Care
DX: J18.9 Pneumonia, unspecified organism (principal); J96.01 Acute respiratory failure with hypoxia; R65.20 Severe sepsis without septic shock; J44.1 Chronic obstructive pulmonary disease with (acute) exacerbation; J44.0 Chronic obstructive pulmonary disease with (acute) lower respiratory infection; I25.10 Atherosclerotic heart disease of native coronary artery without angina pectoris; E78.5 Hyperlipidemia, unspecified; E03.9 Hypothyroidism, unspecified; E53.8 Deficiency of other specified B group vitamins; E55.9 Vitamin D deficiency, unspecified; K21.9 Gastro-esophageal reflux disease without esophagitis; K57.30 Diverticulosis of large intestine without perforation or abscess without bleeding; M79.7 Fibromyalgia; M19.90 Unspecified osteoarthritis, unspecified site; Z20.822 Contact with and (suspected) exposure to COVID-19; Z96.651 Presence of right artificial knee joint; I69.311 Memory deficit following cerebral infarction; Z79.82 Long term (current) use of aspirin; Z79.01 Long term (current) use of anticoagulants; Z79.899 Other long term (current) drug therapy; Z86.0101 Personal history of adenomatous and serrated colon polyps; Z85.41 Personal history of malignant neoplasm of cervix uteri; Z86.718 Personal history of other venous thrombosis and embolism; Z98.1 Arthrodesis status; Z87.891 Personal history of nicotine dependence
CPT/HCPCS: 36415; 71046; 80053; 81001; 83605; 83735; 84145; 85025; 85610; 85730; 87040; 87637; 93005; 94640; 96361; 96365; 96366; 96367; 96368; 96375; 99285; A9270; G0378; J0456; J0696; J2405; J2919; J3475; J7030; J7120

== ENCOUNTER 2024-12-03 11:00 | Outpatient (CLI) | payer MEDICARE, MEDICAID, SELFPAY ==
[2024-12-03 11:14] LABS: Hematocrit 40.3 % (37.0-47.0); Hemoglobin 12.8 g/dL (12.0-15.0); Mean Corpuscular HGB Conc 31.8 g/dl (32-36); Mean Corpuscular Hemoglobin 27.5 pg (26-34); Mean Corpuscular Volume 86.7 fl (80-100); Mean Platelet Volume 8.7 fl (7.4-10.4); Platelet Count Result 287 k/mm3 (150-375); Red Blood Count 4.65 M/mm3 (4.2-5.4); Red Cell Distribution Width 15.9 % (11.5-14.5); White Blood Count 8.6 K/mm3 (4.5-10.0)
--- OUTSIDE RECORDS SUMMARY | 2024-12-03 11:59 | XMS_ITS ---
Author Organization [facility] Address [address] [place] [address] Care Team Providers Care Cable Tool Operator Name Role Phone Boris Mcnair Primary Care Provider Breann Zuniga Unavailable [phone] Eris Vu Unavailable Unavailable Allergies Allergen (clinical [...] Lactobacillus - as directed Orally Not-Taking Nystatin 773046 UNIT/GM 1 application Externally Twice a day [...] Blood pressure diastolic 74 mm Hg 025 Oximetry 95 % 11/09/2024 Height 64 in 11/09/2024 Weight 180.2 lbs 11/09/2024 BMI 30.93 kg/m2 11/09/2024 Encounters Encounter Location Date Provider Diagnosis [facility] [address] [place] [address] 11/09/2024 Breann Chavira Localized swelling, mass and [...] and 5-IAA level noted. Plan to repeat 24-hour urine screenings, as well as obtain a repeat plasma metanephrine level. - Gege presents today with reports of throat tightness and visible swelling that occurred while drinking root beer. She regularly drinks root beer without issue. She was treated at [facility], she did not receive epinephrine or use [...] records from [facility], as well as from her getter operator. Still awaiting. - Follow-up in 4 weeks [...] go to [facility]. Will obtain full PFT with [employer] device [...] of venom of bees, accidental (unintentional) , subsequent encounter (ICD-10 - T63.441D) Gege reports [...] pursues immunotherapy, discuss this further 11/09/2024 Other Plan Of Treatment Medication Medication [...] and 5-IAA level noted. Plan to repeat 24-hour urine screenings, as well as obtain a repeat plasma metanephrine level. - Gege presents today with reports of throat tightness and visible swelling that occurred while drinking root beer. She regularly drinks root beer without issue. She was treated at [facility], she did not receive epinephrine or use [...] records from [facility], as well as from her getter operator. Still awaiting. - Follow-up in 4 weeks [...] go to [facility]. Will obtain full PFT with [employer] device [...] further Pending Test Test Name Order Date METANEPHRINES, FRACT. LC/MS/MS, 24 HR UR INE 11/09/2024 METANEPHRINES, FRACT, FREE, LC/MS/MS, PL ASMA 11/09/2024 VMA, 24-HOUR URINE 11/09/2024 HOMOVANILLIC ACID, 24-HR URINE 5-HIAA, 24-HOUR URINE 11/09/2024 HISTAMINE, 24 HOUR URINE 11/09/2024 LEUKOTRIENE E4, URINE 11/09/2024 N METHYLHISTAMINE, 24 HOUR, URINE 2024 Next Appt Details Follow Up: 4 Weeks, Reason: Laboratory Review Progress Notes * Gege VIDALDOB:1960 (64 yo F)Acc No.[id number]:11/09/2024 Progress Notes Patient: Gege MADERA Provider: Rashel Chavira DNP GLUING MACHINE ADJUSTER-C :1960 A ge:64 Y S ex:Female Date:11/09/2024 Address:[address] [place] [address] [id number] Pcp:Boris Mcnair Subjective: * Chief Complaints: * R eports of throat tightness and swelling with root beer consumption.Ocular swelling, erythema and watering with various ocular drops following cataract surgery. C4 normal.Chronic upper airway symptoms concerning for uncontrolled atopic disease, has trialed Zyrtec in the past without benefit. ImmunoCaps negative, total IgE 28.Swelling and syncope reported after a bee sting > 20 years ago. Carrying AIE at all times.Hives and syncope reported with penicillin at age 18, avoidant since.Chronic lower airways symptoms concerning for possible asthma, occasional shortness of breath. History of COPD. No prior pulmonary evaluation, slated next week for evaluation.Avoidant of shellfish due to syncope after [...] left eye. She was seen by her getter operator, whorecommended stopping Maxitrol and started her on a prednisolone eye drop, shewas also using Refresh ocular lubricant. She was, once again, seen by her getter operator who started a different prednisoloneeye drop. Symptoms persistedand she reports the swelling worsened, due to thisshe was seen at [facility] where she was given steroids andantihistamines, also sent home on prednisone and Benadryl. She reports shecontinued to use the second prednisolone drop she was prescribed. Several dayslater she was seen once again by her getter operator, who stopped theprednisolone ocular drop and [...] tightness and visible swelling. She went to [facility] [place] [facility], unsure of the treatments given. She was not given epinephrine to her knowledge. Gege admits to recovering form an illness at that time, earlier in the day she had eaten biscuits and gravy. She denies NSAID or alcohol use. No records to review. Gege endorses upper airway symptoms concerning foruncontrolled atopic disease. She has taken Zyrtec previously without benefit. There are two dogs in [facility]. She has never undergone allergy testing [...] on nebivolol. She lives with tanya and [id number]-[id number]-yge. Today, she reports no fevers, chills, night [...] BREAST BIOPSY * Hospitalization/Major Diagno stic Procedure: D enies Past Hospitalization * Family History: F ather: , No, diagnosed with Diabetes mellitus type I. M other: Yes, diagnosed with Diabetes mellitus type I. P aternal Grand Father: No. P aternal Grand Mother: No. M aternal Grand Father: No. M aternal Grand Mother: No. S iblings: Yes. Dirk ceballos: Yes.? Mother: Depression Father: Acute Myocardial Infarction. [...] your bedroom? Y es Do you have ritk-ar-opwp carpeting? Y es What is the age [...] smoked? 1 -3 months * Medications: T akingBudesonide EPINEPHrine 0.3 MG/0.3ML Solution Auto-injector as directed Injection as needed Advair HFA 230-21 MCG/ACT Aerosol 2 puffs Inhalation Twice a day Albuterol Sulfate HFA 108 (90 Base) MCG/ACT Aerosol Solution 2 puffs as needed Inhalation every 4 hrs AeroChamber MV - Miscellaneous as directed Any adult spacerRivaroxaban 20 MG Tablet 1 tablet with food Orally Once a day Pantoprazole Sodium 20 MG Tablet Delayed Release 1 tablet 1/2 to 1 hour before morning meal Orally Once a day Ondansetron 4 MG Tablet Disintegrating 1 tablet on the tongue and allow to dissolve Orally Once a day Nystatin 488373 UNIT/GM Cream 1 application Externally Twice a day Nebivolol HCl 5 MG Tablet 1 tablet Orally Once a day Levothyroxine Sodium 88 MCG Tablet 1 tablet in the morning on an empty stomach Orally Once a day Folic Acid 1 MG Tablet 1 tablet Orally Once a day Ferrous Sulfate 325 (65 Fe) MG Tablet 1 tablet Orally Three times a Week Atorvastatin Calcium 40 MG Tablet TAKE 1 TABLET BY MOUTH ONCE DAILY Oral Taking Budesonide Taking EPINEPHrine 0.3 MG/0.3ML Solution Auto-injector as [...] dissolve Orally Once a day Taking Nystatin 109161 UNIT/GM Cream 1 application Externally Twice a day Taking Nebivolol HCl 5 MG Tablet 1 tablet Orally Once a day Taking Levothyroxine Sodium 88 MCG Tablet 1 tablet in the morning on an empty stomach Orally Once a day Taking Folic Acid 1 MG Tablet 1 tablet Orally Once a day Taking Ferrous Sulfate 325 (65 Fe) MG Tablet 1 tablet Orally Three times a Week Taking Atorvastatin Calcium 40 MG Tablet TAKE 1 TABLET BY MOUTH ONCE DAILY Oral Not- Taking/PRNFluticasone Propionate 50 MCG/ACT Suspension 1 spray in each nostril Nasally Twice a day Lactobacillus - Capsule as directed Orally EPINEPHrine 0.3 MG/0.3ML Solution Auto-injector as directed Injection as directed Medication List reviewed and reconciled with the patientNot-Taking/PRN Fluticasone Propionate 50 MCG/ACT Suspension 1 spray in each nostril Nasally Twice a day Not-Taking/PRN Lactobacillus - Capsule as directed Orally Not-Taking/PRN EPINEPHrine 0.3 MG/0.3ML Solution Auto-injector as directed Injection as directed Medication List reviewed and reconciled with the patient * Allergies: C odeine: anaphylaxisHYDROmorphone: rashLatex: rashlevoFLOXacin: rashno[Allergies Verified] Objective: * Vitals: B P:113/74mm Hg, HR:90/min, [...] go to [facility]. Will obtain full PFT with [employer] device [...] discuss this further * Procedure Codes: 9 6160 PT-FOCUSED HLTH RISK [id number] DOC MEDS VERIFIED W/PT OR RE * [...] Review) * Billing Information: * Visit Code: 47806 Office Visit, Est Pt., Level 4. Modifiers: 25 * Procedure Codes: 13717 PT-FOCUSED HLTH RISK ASSMT. G8427 DOC MEDS VERIFIED W/PT OR RE. * WARE INTEGRATION DEVELOPER Sign off status: Completed true * Provider: VALERIE Almonte-C Date: 0 11/09/2024 Generated for Neal gonzalez/Randall/Valitting on: 0 12/03/2024 11:59 AM CDT History and Physical Notes * HPI [...] left eye. She was seen by her getter operator, who recommended stopping Maxitrol and started her on a prednisolone eye drop, she was also using Refresh ocular lubricant. She was, once again, seen by her getter operator who started a different prednisolone eye drop. Symptoms persistedand she reports the swelling worsened, due to this she was seen at [facility] where she was given steroids and antihistamines, also sent home on prednisone and Benadryl. She reports she continued to use the second prednisolone drop she was prescribed. Several days later she was seen once again by her getter operator, who stopped the prednisolone ocular drop [...] tightness and visible swelling. She went to [place] [facility], unsure of the treatments given. She [...] nebivolol. She lives with her son and [id number]. Today, she reports no fevers, chills, night [...]
--- OUTSIDE RECORDS SUMMARY | 2024-12-03 11:59 | XMS_ITS | CONTINUITY OF CARE DOCUMENT ---
Author Name keke davies Address Unknown Organization [facility] Address [address] [place] [address] Phone [phone] Care Team Providers Care Habilitation Training Specialist Name Role Phone Vin Tay MD Unavailable INSURANCE PROVIDERS Payer name Policy type / Coverage type [place] red libertarian ID [id number] PAY [id number]
--- OUTSIDE RECORDS SUMMARY | 2024-12-03 11:59 | XMS_ITS | Clinical Summary ---
Author Organization [facility] Address [address] [place] [address] Care Team Providers Care Partition Notcher Name Role Phone Boris Mcnair DO Primary Care Provider [phone] Source Comments [facility],non-owned Affiliates and Associated Physician Practices is amultiple site organization consisting of ambulatory clinics and hospital sitesin [place], [place], [place] and [place]. This disclosure is being madepursuant to the Care Everywhere program and may not contain all information available regarding this patient. Last updated 18.[facility] Allergies Active Allergy Reactions Criticality Noted [...] MG tablet 10/09/2018 Active Cholecalciferol (VITAMIN D3) 94039 units capsule Active Active Problems Problem Noted [...] to complete this topic MENINGOCOCCAL (Group B) VACC INE SHARED DECISION-MAKING Aged Out No longer eligibl e based on patient's age to complete this topic MENINGOCOCCAL GROUPS A/C/Y/W VACCINE Aged Out No longer eligible b ased on patient's age to complete this topic Procedures Procedure Name Priority Date/Time Associated Diagnosis Comments COMPREHENSIVE METABOLIC PANEL AM Draw 02/07/2018 12:50 PM CDT Hypercholesteremia from Last 3 Months or Most Recently Relevant to Health Maintenance Results * (ABNORMAL) COMPREHENSIVE METABOLIC PANEL (02/07/2018 12:50 PM CDT) BUN 8 7 - 26 mg/dL 02/07/2018 1:22 PM CDT [facility] Creatinine 1.0 0.6 - [...] Barajas DO LAB - CHEMISTRY [facility] [address] [phone] from Last 3 Months or Most Recently Relevant to Health Maintenance Insurance Payer Benefit Plan / Group Subscriber ID Effective Dates Phone Address Type UHC MANAGED MEDICARE ADV C MEDICARE ADV [id number] Effective for all dates [address] [address] [place] [address] Medicare-Ma naged Care MEDICAID [facility] MEDICAID [facility] [id number] Effective for all dates [address] [place] [id number] Medicaid SELF PAY NO INSURANCE SELF PAY NO INSURANCE Effective for all dates [place], [place] Self Pay [facility] MANAGED MEDICARE ADV [facility] STATE RETIREES MEDICARE ADV [id number] 09/17/2024-Pres ent [address] [address] [place] [address] Medicare-[place] naged Care MEDICAID [facility] MEDICAID [facility] Effective for all dates [address] [place] [phone] Medicaid UHC MANAGED MEDICARE ADV [facility] STATE RETIREES MEDICARE ADV [id number] 09/17/2024-Pres ent [address] [address] [place] [address] Medicare-Ma naged Care MEDICAID [facility] MEDICAID [employer] Effective for all dates [address] [place] [address] Medicaid UHC MANAGED MEDICARE ADV [facility] STATE RETIREES MEDICARE ADV [id number] 09/17/2024-Pres ent [address] [address] [place] [address] Medicare-[place] naged Care MEDICAID [facility] MEDICAID [facility] Effective for all dates [address] [place] [address] Medicaid UHC MANAGED MEDICARE ADV [facility] STATE RETIREES MEDICARE ADV [id number] 09/17/2024-Pres ent [address] [address] [place] [address] Medicare-[facility] MEDICARE WPS MEDICARE PART B [id number] 04/16/2013-Pres ent [address] [address] [place] [address] Medicare MEDICAID - OUT OF [facility] MEDICAID - [facility] AID [id number] 03/24/2022-Pres ent [address] [address] [place] [address] Medicaid MEDICARE MEDICARE PART A AND B [id number] 04/16/2013-Pres ent [address] [place] [address] Medicare Advance Directives * Full Code (Latest Code Status on File) Date Activated Date Inactivated Comments 02/15/2018 8:10 AM 02/15/2018 12:04 PM * Full Code Date Activated Date Inactivated Comments 02/14/2018 7:57 AM 02/14/2018 6:16 PM Care Teams Partition Notcher Relationship Specialty Start Date End Date Boris Mcnair DO [address] [place], [place] [id number] PCP - General 04/07/19
--- OUTSIDE RECORDS SUMMARY | 2024-12-03 12:00 | XMS_ITS | Clinical Summary ---
Author Organization [facility] Address [address] [place] [address] Care Team Providers Care Shipping Packer Name Role Phone Dominic Fernando MD Primary Care Provider [phone] Allergies Active Allergy Reactions Criticality Noted Date [...] mcg tablet Take 112 mcg by mouth garage door hanger before breakfast. 07/21/2018 Active XARELTO 20 mg [...] (09/24/2018): Added automatically from request for surgery [id number] Surgical History Surgery Date Site/Laterality Comments CHOLECYSTECTOMY NECK SURGERY KNEE ARTHROSCOPY ROTATOR CUFF REPAIR CAROTID ENDARTERECTOMY BREAST SURGERY biopsy EYE SURGERY tumors removed TUBAL LIGATION HYSTERECTOMY partial Medical History Medical History Date Comments Stroke (HCC) History of blood clots Poor circulation Thyroid disease Hiatal hernia H/O: hysterectomy Hyperlipidemia Emphysema of lung (HCC) GERD (gastroesophageal reflux disease) Hypothyroidism Cervical cancer (HCC) cervical Family History Medical History Relation [...] on file Legal Sex Female 11:26 PM 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 Gender Identity Not on file Sexual Orientation Not on file Obstetrics History Last Filed Vital Signs Vital Sign Reading Time Taken Comments Blood Pressure 98/64 10/02/2019 8:21 AM AGRICULTURE DEPARTMENT CHAIR Pulse 55 10/02/2019 8:21 AM AGRICULTURE DEPARTMENT CHAIR Temperature 37.1 C (98.8 F) 11/24/2018 12:06 PM CDT Respiratory Rate 16 11/24/2018 12:06 PM CDT Oxygen Saturation 98% 11/24/2018 12:06 PM CDT Inhaled Oxygen Concentration - - Weight 80.4 kg (177 lb 3.2 oz) 10/02/2019 8:21 A M AGRICULTURE DEPARTMENT CHAIR Height 165.1 cm (5' 5 ) 10/02/2019 8:21 AM AGRICULTURE DEPARTMENT CHAIR Body Mass Index 29.49 10/02/2019 8:21 AM AGRICULTURE DEPARTMENT CHAIR Plan of Treatment Not on file Medical Devices Implanted Type Area Traffic Superintendent Device Identifier Shelf Expiration Date Model / Serial / Lot Islas [employer] Nephew/Richco/Or tho [id number] Legion 9mm Dished Knee 3-4 Insert Tibial Xlpe - [id number] Implanted:Qty: 1 on 11/11/2018 by Kemal Wright MD at [facility] Right: Knee [employer] Nephew/Richco/Or tho 08/11/2028 [id number] / / [id number] Islas [employer] Nephew/Richco/Or tho [id number] 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 Taper Knee Right 4 Baseplate Tibial Titanium - [id number] Implanted:Qty: 1 on 11/11/2018 by Kemal Wright MD at [facility] Right: Knee Islas [employer] Nephew/Richco/Or tho 07/18/2028 [id number] / / [id number] Size 4 Right Cruciate Retaining Legion Oxinium Femoral Componenet Implanted:Qty: 1 on 11/11/2018 by Kemal Wright MD at [facility] Right: Knee Islas and Nephew [id number] 01/06/2028 [id number] / / [id number] [employer] [id number] Palacos R+G High Viscosity Cement Bone Gentamicin Arthroplasty - [id number] Implanted:Qty: 1 on 11/11/2018 by Kemal Wright MD at [facility] Right: Knee [employer] 04/15/2021 [id number] / / [id number] Insurance MEDICARE [facility] MEDICARE [facility] Advance Directives For more information, please contact: [phone] * Full Code (Latest Code Status on File) Date Activated Date Inactivated Comments 11/14/2018 1:26 PM 11/15/2018 7:15 PM * Full Code Date Activated Date Inactivated Comments 11/13/2018 10:00 AM 11/14/2018 1:16 PM per patient request * Full Code Date Activated Date Inactivated Comments 11/11/2018 7:40 PM 11/12/2018 8:26 PM Care Teams Shipping Packer Relationship Specialty Start Date End Date Dominic Fernando MD [address] [facility] [address] [place] [address] [place]IC[place] [id number] PCP - General 08/13/17
--- OUTSIDE RECORDS SUMMARY | 2024-12-03 12:00 | XMS_ITS | Patient Health Record ---
Author Organization [facility] Address [address] [place], [place] [address] Care Team Providers Care C++ Quant Developer Name Role Phone Tanner Reid MD Primary Care Provider [phone] Tanner Reid Unavailable Unavailable ALLERGIES Allergen [...] finger, initial encounter (S63.631A) 023 Active confirmed [id number] Problem Fall on same level from slipping, tripping and stumbling without subsequent striking against object, initial encounter (W01.0XXA) 023 Active confirmed [id number] Problem Encounter for other specified surgical aftercare (Z48.89) Active confirmed Postoperative c are ([id number]) PLAN OF TREATMENT No Information Insurance Providers Payer Name Payer Address Payer Phone Subscriber Number Group Number Insured Name Patient Relationship to Insured Coverage Start Date Coverage End Date UHC Medicare Advantage PPO [address] [address] [place] [phone] [id number] Gege Vidal Self - patient is the insured MEDICAL (GENERAL) HISTORY Medical History History ICD Code Hypothyroidism Surgical History Surgery Date(Month/Year) right knee arthroscopy tubal ligation tonsillectomy hysterectomy neck right knee arthroscopy shoulder arthroscopy, right x2
--- OUTSIDE RECORDS SUMMARY | 2024-12-03 12:00 | XMS_ITS ---
Author Organization [facility] Address [address] [place] [address] Care Team Providers Care Appliance Counselor Name Role Phone Boris Mcnair Primary Care Provider Breann Zuniga [phone] Eris Vu Unavailable Unavailable REASON FOR VISIT Chronic care management Encounters Encounter Location Date Provider Diagnosis [facility] [address] [place] [address] 11/09/2024 Breann Chavira Plan Of Treatment No Information Progress Notes * Gege VIDALDOB:1960 (64 yo F)Acc No.[id number]:11/09/2024 Patient: Gege MADERA :1960 A ge:64 Y S ex:Female Address:[address] [place], [address] * true * Date: Generated for Neal gonzalez/Randall/eTransmitting on: 0 12/03/2024 12:00 PM CDT
--- OUTSIDE RECORDS SUMMARY | 2024-12-03 12:00 | XMS_ITS | Continuity of Care Document ---
Author Organization [facility] Address [address] [place] [address] Phone Care Team Providers Care Psych Social Worker Name Role Phone Unavailable Unavailable Unavailable Advance Directives Directive Yes / No Effective Date File Name No Information Encounters Encounter Description Practice Location Reason(s) For Visit Diagnoses Date Provider Providers Copied on Encounter [facility], [address], [place], [place], [id number], [place] tel:[phone] JBF [facility] No Information Mar-1 6-200 0 No Information Family History Family Member Type Diagnosis Age At Onset No Information Payers Payer name Insurance type Covered constitution party ID Authoriza tion(s) No Information Social [...]
--- OUTSIDE RECORDS SUMMARY | 2024-12-03 12:00 | XMS_ITS | Referral Summary ---
Author Organization [facility] Address [address] [place] [address] Care Team Providers Care Second Helper Name Role Phone Dominic Fernando MD Primary Care Provider [phone] Allergies Active Allergy Reactions Criticality Noted Date [...] mcg tablet Take 112 mcg by mouth satellite installation technician before breakfast. 07/21/2018 Active XARELTO 20 mg [...] (09/24/2018): Added automatically from request for surgery [id number] Social History Tobacco Use Types Packs/Day Years Used Date Smoking Tobacco: Every Day Cigarettes Smokeless Tobacco: Current Comments:quitting now, 1 pac k last 2-3 days Alcohol Use Standard Drinks/Week Comments No 0 (1 standard drink = 0.6 oz pur e alcohol) Comments No Sex and Gender Information Value Date Recorded Sex Assigned at Not on file Legal Sex Female 11:26 PM ASSOCIATE CHEMIST Gender Identity Not on file Sexual Orientation Not on file Last Filed Vital Signs Vital Sign Reading Time Taken Comments Blood Pressure 98/64 10/02/2019 8:21 AM ASSOCIATE CHEMIST Pulse 55 10/02/2019 8:21 AM ASSOCIATE CHEMIST Temperature 37.1 C (98.8 F) 11/24/2018 12:06 PM CDT Respiratory Rate 16 11/24/2018 12:06 PM CDT Oxygen Saturation 98% 11/24/2018 12:06 PM CDT Inhaled Oxygen Concentration - - Weight 80.4 kg (177 lb 3.2 oz) 10/02/2019 8:21 A M ASSOCIATE CHEMIST Height 165.1 cm (5' 5 ) 10/02/2019 8:21 AM ASSOCIATE CHEMIST Body Mass Index 29.49 10/02/2019 8:21 AM ASSOCIATE CHEMIST Plan of Treatment Not on file Medical Devices Implanted Type Area Wave Solder Offbearer Device Identifier Shelf Expiration Date Model / Serial / Lot Islas [employer] Nephew/Richco/Or tho [id number] Legion 9mm Dished Knee 3-4 Insert Tibial Xlpe - [id number] Implanted:Qty: 1 on 11/11/2018 by Kemal Wright MD at [facility] Right: Knee [employer]hew[employer]Richco/Or tho 08/11/2028 [id number] / / [id number] Islas [employer] Nephew/Richco/Or tho [id number] 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 Taper Knee Right 4 Baseplate Tibial Titanium - [id number] Implanted:Qty: 1 on 11/11/2018 by Kemal Wright MD at [facility] Right: Knee [employer]hew[employer]Richco/Or tho 07/18/2028 [id number] / / [id number]- Size 4 Right Cruciate Retaining Legion Oxinium Femoral Componenet Implanted:Qty: 1 on 11/11/2018 by Kemal Wright MD at [facility] Right: Knee Islas and Nephew C1776 01/06/2028 [id number] / / [id number] [employer] [id number] Palacos R+G High Viscosity Cement Bone Gentamicin Arthroplasty - [id number] Implanted:Qty: 1 on 11/11/2018 by Kemal Wright MD at [facility] Right: Knee [employer] 04/15/2021 [id number] / / [id number] Insurance [place] Advance Directives For more information, please contact: [phone] * Full Code (Latest Code Status on File) Date Activated Date Inactivated Comments 11/14/2018 1:26 PM 11/15/2018 7:15 PM * Full Code Date Activated Date Inactivated Comments 11/13/2018 10:00 AM 11/14/2018 1:16 PM per patient request * Full Code Date Activated Date Inactivated Comments 11/11/2018 7:40 PM 11/12/2018 8:26 PM Care Teams Second Helper Relationship Specialty Start Date End Date Dominic Fernando MD [address] [facility] [address] [place] [address] PCP - General 08/13/17
--- OUTSIDE RECORDS SUMMARY | 2024-12-03 12:01 | XMS_ITS | Clinical Summary ---
Author Organization [facility] Address [address] [place] [address] Care Team Providers Care Blood And Plasma Laboratory Assistant Name Role Phone Eris Vu MD Primary Care Provider [phone] Allergies Active Allergy Reactions Criticality Noted Date [...] this topic Medical Devices Implanted Type Area Over Hauler Helper Device Identifier Shelf Expiration Date Model / Serial / Lot Tecnis 1-Piece Iol Implanted:Qty: 1 on 06/08/2024 by Jadon Vu MD at [facility] Left: Eye [employer] 10/27/2026 / [id number] / Insurance MEDICAID Care Teams Blood And Plasma Laboratory Assistant Relationship Specialty Start Date End Date Eris Vu MD [address] [place] [address] PCP - General FAMILY PRACTICE 06/05/24
--- OUTSIDE RECORDS SUMMARY | 2024-12-03 12:01 | XMS_ITS ---
Author Organization [facility] Address [address] [place] [address] Care Team Providers Care Woodyard Crane Operator Name Role Phone Boris Mcnair Primary Care Provider Breann Zuniga [phone] Eris Vu Unavailable Unavailable REASON FOR VISIT Chronic care management Encounters Encounter Location Date Provider Diagnosis [facility] [address] [place] [address] 11/18/2024 Breann Chavira Plan Of Treatment No Information Progress Notes * Gege VIDALDOB:1960 (64 yo F)Acc No.[id number]:11/18/2024 Patient: Gege MADERA :1960 A ge:64 Y S ex:Female Address:[address] [place], [address] * * Date:
--- OUTSIDE RECORDS SUMMARY | 2024-12-03 12:01 | XMS_ITS | Clinical Summary ---
Author Organization [facility] Address [address] [place] [address] Care Team Providers Care Glassblower Name Role Phone Eris Vu MD Primary Care Provider [phone] Allergies Active Allergy Reactions Criticality Noted Date Comments Adhesive Tape-Silicones Other (See Comments) Medium 08/19/2014 Blisters Codeine Shortness of Breath/Wheezing High 08/19/2014 Ofgvxjzaj-Q-Rpbafmd-Se jun-Brom Other (See Comments) Low 08/19/2014 Alcohol- [...] mouth once daily 30 Tablet 5 Active Xarelto 20 mg Tablet Take 1 tablet by mouth once daily 90 Tablet 4 11/13/19 25 Discontinued folic acid (FOLVITE) 1 mg tablet Take 1 tablet by mouth once daily 30 Tablet 5 11/26/19 25 Discontinued folic acid (FOLVITE) 1 mg tablet Take 1 tablet by mouth once daily 30 Tablet 5 12/01/19 25 Discontinued Active Problems Problem Noted Date Diagnosed Date 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 01/06/2020 Diverticulitis 03/24/2018 Secondary hypercoagulable state 11/15/2017 Tobacco use 11/15/2017 Encounters Date Type Department Care Team Description 11/29/2024 [facility] Oncology and Hematology - [place] [address] [place] [address] Chris Owens MD 11/25/2024 External Device Data [facility] ABSTRACTION Provider, Abstract 11/25/2024 [facility] Oncology and Hematology - [place] [address] [place] [address] Chris Owens MD 11/24/2024 External Device Data [facility] ABSTRACTION Provider, Abstract 11/23/2024 External Device Data [facility] ABSTRACTION Provider, Abstract 11/21/2024 External Device Data [facility] ABSTRACTION Provider, Abstract 11/20/2024 External Device Data [facility] ABSTRACTION Provider, Abstract 11/18/2024 External Device Data [facility] ABSTRACTION Provider, Abstract 11/13/2024 [facility] Oncology and Hematology - [place] [address] [place] [address] Chris Owens MD 11/04/2024 External Device Data [facility] ABSTRACTION Provider, Abstract 11/02/2024 Refill [facility] Oncology and Hematology [place] [address] [place] [address] Chris Owens MD 10/09/2024 Abstract [facility] Oncology and Hematology [facility] [address] [place] [address] Chris Owens MD 10/09/2024 Telephone [facility] Oncology and Hematology [facility] [address] [place] [address] Chris Owens MD Surgical Clearance 10/08/2024 External [...] on file Legal Sex Female 12:44 PM 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 Gender Identity Not on file Sexual Orientation [...] [facility] Oncology and Hematology - [place] [address] [facility] [address] [place] [address] Chris Owens MD [address] [facility] [address] [place] [address] Health Maintenance Due Date Last Done Comments Pre-Diabetes and Diabetes Screening 1960 DTAP/TDAP/TD VACCINES (1 - Tdap) 1980 FIT-DNA Q 3 years 2006 FIT/FOBT Q 1 year 2006 Flex Sig/CT Colonography Q 5 years 2006 ZOSTER VACCINE (1 of 2) 2011 Lung Cancer Screening 07/15/2020 07/15/2019 INFLUENZA VACCINE (#1) 2024 [place] Preventative Visit/Annual Wellness Visit 09/16/2024 BREAST CANCER SCREENING 02/16/2025 02/17/20 24, 09/03/2023, 08/07/2023, Additional history exists COLORECTAL SCREENING 10/28/2030 10/28/2020, 05/31/20 20 Colorectal Cancer Screening 10/28/2030 RSV VACCINE (60+ or ) (1 - 1-dose 75+ series) 2036 Procedures Procedure Name Priority Date/Time Associated Diagnosis Comments MAMMO BILAT DIAGNOSTIC Routine 02/17/2024 1:[address] LUNG SCREENING (LDCT BASELINE OR ANNUAL) Routine 07/15/2019 Encounter for screening for lung cancer from Last 3 Months or Most Recently Relevant to Health Maintenance Results * MAMMO BILAT DIAGNOSTIC (02/17/2024 1:15 PM CDT) Anatomical Region Laterality Modality Breast Bilateral Mammography Chris Owens MD MAMMO ORDERABLES Final Result * CT LUNG SCREENING (07/15/2019) Anatomical Region Laterality Modality Chest Computed Tomogra phy Chris Owens MD CT ORDERABLES Final Result from Last 3 Months or Most Recently Relevant to Health Maintenance Insurance [facility] [id number] Care Teams Glassblower Relationship Specialty Start Date End Date Eris Vu MD PCP - General Family Practice 02/21/23
[2024-12-03 12:04] LABS: Iron 68 ug/dL (37-170)
[2024-12-03 12:16] LABS: Percent Iron Saturation 15 % (20-50)
[2024-12-03 13:20] LABS: Folic Acid > 20.0 ng/mL (2.76->20)
== END 2024-12-03 11:01 | disposition home or self-care (01) ==
LOC: ANHLAB 11:01
PROVIDERS: PCP Nurse Practitioner; Visit Provider Internal Medicine Hematology & Oncology
DX: D64.9 Anemia, unspecified (principal)
CPT/HCPCS: 36415; 82607; 82728; 82746; 83540; 83550; 85027

== ENCOUNTER 2024-12-17 14:02 | Outpatient (CLI) | payer MEDICARE, MEDICAID, SELFPAY ==
--- NOTE | ~2024-12-17 | MM_ITS ---
EXAMINATION: MM screening meron BI w carolann HISTORY: Screening TECHNIQUE: Craniocaudal and mediolateral oblique 3-D tomosynthesis images were obtained and synthetic 2-D images were generated. CAD analysis was submitted and interpreted. COMPARISON: Comparison to multiple prior studies sequentially, with oldest reviewed study dated 10/2019. BREAST PARENCHYMAL COMPOSITION: Not dense: There are scattered areas of fibroglandular density. FINDINGS: There is no evidence of suspicious mass, calcification, or architectural distortion to sugg est malignancy in either breast. There has been no suspicious interval change. IMPRESSION: 1. No mammographic evidence of malignancy. 2. Recommend routine screening mammography in one year. BI-RADS Category 1: Negative Reviewed, dictated and finalized at location A.
--- OUTSIDE RECORDS SUMMARY | 2024-12-17 14:25 | XMS_ITS | Encounter Summary ---
Author Organization [facility] Address [address] [place] [address] Care Team Providers Care Battery Assembler Plastic Name Role Phone Eris Vu MD Primary Care Provider [phone] Encounter Details Date Type Department Care Team (Late st Contact Info) Description 12/15/2024 External Device Data STL ABSTRACTION Provider, Abstract [...] on file Legal Sex Female 12:44 PM FOOD SERVICE UTILITY WORKER Gender Identity Not on file Sexual Orientation Not on file documented as of this encounter Plan of Treatment Upcoming Encounters Date Type Department Care Team (Late st Contact Info) Description 06/07/2025 1:00 PM CDT Office Visit [facility] Oncology and Hematology - [place] [address] [place] [address] [facility] [address] [place] [address] Chris Owens MD [address] [facility] [address] [place] [address] documented as of this encounter Visit Diagnoses Not on filedocumented in this encounter Care Teams Battery Assembler Plastic Relationship Specialty Start Date End Date Eris Vu MD PCP - General Family Practice 02/21/23 documented as of this encounter
--- OUTSIDE RECORDS SUMMARY | 2024-12-17 14:26 | XMS_ITS | Clinical Summary ---
Author Organization [facility] Address [address] [place] [address] Care Team Providers Care Regional Administrative Assistant Name Role Phone Eris Vu MD Primary Care Provider [phone] Allergies Active Allergy Reactions Criticality Noted Date [...] Vaccine (1 - 2023-2 5 season) 2024 RSV Immunization or 60+ Years (1 [...] this topic Medical Devices Implanted Type Area School Fundraising Director Device Identifier Shelf Expiration Date Model / Serial / Lot Tecnis 1-Piece Iol Implanted:Qty: 1 on 06/08/2024 by Jadon Vu MD at [facility] Left: Eye [employer] 10/27/2026 / [id number] / Insurance [id number] MEDICAID Care Teams Regional Administrative Assistant Relationship Specialty Start Date End Date Eris Vu MD [address] [place] [address] PCP - General FAMILY PRACTICE 06/05/24
--- OUTSIDE RECORDS SUMMARY | 2024-12-17 14:26 | XMS_ITS | Referral Summary ---
Author Organization [facility] Address [address] [place] [address] Care Team Providers Care Legal Transcriber Name Role Phone Dominic Fernando MD Primary Care Provider [phone] Allergies Active Allergy Reactions Criticality Noted Date [...] mcg tablet Take 112 mcg by mouth seismometer operator before breakfast. 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 Gender Identity Not on file Sexual Orientation Not on file Last Filed Vital Signs Vital Sign Reading Time Taken Comments Blood Pressure 98/64 10/02/2019 8:21 AM FAST FOOD TEAM MEMBER Pulse 55 10/02/2019 8:21 AM FAST FOOD TEAM MEMBER Temperature 37.1 C (98.8 F) 11/24/2018 12:06 PM CDT Respiratory Rate 16 11/24/2018 12:06 PM CDT Oxygen Saturation 98% 11/24/2018 12:06 PM CDT Inhaled Oxygen Concentration - - Weight 80.4 kg (177 lb 3.2 oz) 10/02/2019 8:21 A M FAST FOOD TEAM MEMBER Height 165.1 cm (5' 5 ) 10/02/2019 8:21 AM FAST FOOD TEAM MEMBER Body Mass Index 29.49 10/02/2019 8:21 AM FAST FOOD TEAM MEMBER Plan of Treatment Not on file Medical Devices Implanted Type Area Executive Secretary Device Identifier Shelf Expiration Date Model / Serial / Lot Is[employer] Nephew[employer]Richco[employer]Or tho [id number] Legion 9mm Dished Knee 3-4 Insert Tibial Xlpe - [id number] Implanted:Qty: 1 on 11/11/2018 by Kemal Wright MD at [facility] Right: Knee [employer]Or tho 08/11/2028 [id number] / / [id number] Islas [employer] Nephew[employer]co[employer]Or tho [id number] 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 Taper Knee Right 4 Baseplate Tibial Titanium - [id number] Implanted:Qty: 1 on 11/11/2018 by Kemal Wright MD at [facility] Right: Knee Is[employer]hew[employer]Rich[employer]Or tho 07/18/2028 [id number] / / [id number] Size 4 Right Cruciate Retaining Legion Oxinium Femoral Componenet Implanted:Qty: 1 on 11/11/2018 by Kemal Wright MD at [facility] Right: Knee Islas [employer] Nephew [id number] 01/06/2028 [id number] / / [id number] [employer] [id number] Palacos R+G High Viscosity Cement Bone Gentamicin Arthroplasty - [id number] Implanted:Qty: 1 on 11/11/2018 by Kemal Wright MD at [facility] Right: Knee [employer] 04/15/2021 [id number] / / [id number] Insurance MEDICARE [place] MED[place] Advance Directives For more information, please contact: [phone] * Full Code (Latest Code Status on File) Date Activated Date Inactivated Comments 11/14/2018 1:26 PM 11/15/2018 7:15 PM * Full Code Date Activated Date Inactivated Comments 11/13/2018 10:00 AM 11/14/2018 1:16 PM per patient request * Full Code Date Activated Date Inactivated Comments 11/11/2018 7:40 PM 11/12/2018 8:26 PM Care Teams Legal Transcriber Relationship Specialty Start Date End Date Dominic Fernando MD [address] [facility] [address] [place] [address] PCP - General 08/13/17
--- OUTSIDE RECORDS SUMMARY | 2024-12-17 14:26 | XMS_ITS | Clinical Summary ---
Author Organization [facility] Address [address] [place] [address] Care Team Providers Care Airplane Pilot Helper Name Role Phone Eris Vu MD Primary Care Provider [phone] Allergies Active Allergy Reactions Criticality Noted Date Comments Adhesive Tape-Silicones Other (See Comments) Medium 08/19/2014 Blisters Codeine Shortness of Breath/Wheezing High 08/19/2014 Tdmluaugx-M-Dcqvhid-Se jun-Brom Other (See Comments) Low 08/19/2014 Alcohol- [...] TABLET BY MOUTH ONCE DAILY 0 Active folic acid (FOLVITE) 1 mg tablet Take 1 tablet by mouth once daily 30 Tablet 5 Active Xarelto 20 mg Tablet Take 1 tablet by mouth once daily 90 Tablet 3 5 Active folic acid (FOLVITE) 1 mg tablet Take 1 tablet by mouth once daily 30 Tablet 5 11/26/19 25 Discontinued Xarelto 20 mg Tablet Take 1 tablet by mouth once daily 30 Tablet 5 12/11/19 25 Discontinued folic acid (FOLVITE) 1 mg tablet Take 1 tablet by mouth once daily 30 Tablet 5 12/01/19 25 Discontinued Active Problems Problem Noted Date Diagnosed Date 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 01/06/2020 Diverticulitis 03/24/2018 Secondary hypercoagulable state 11/15/2017 Tobacco use 11/15/2017 Encounters Date Type Department Care Team Description 12/15/2024 External Device Data STL ABSTRACTION Provider, Abstract 12/10/2024 Jaime [facility] Oncology and Hematology [address] [place] [address] Chris Owens MD 12/04/2024 11:30 AM CDT Office Visit [facility] Oncology and Hematology - [place] [address] [place] [address] Chris Owens MD Chronic anemia (Primary Dx); Visit for screening mammogram 12/04/2024 Orders Only [facility] Oncology and Hematology [facility] [address] [place] [address] Chris Owens MD 12/02/2024 External Device Data STL ABSTRACTION Provider, Abstract 11/29/2024 Refill [facility] Oncology and Hematology [facility] [address] [place] [address] Chris Owens MD 11/25/2024 External Device Data STL ABSTRACTION Provider, Abstract 11/25/2024 [facility] Oncology and Hematology [facility] [address] [place] [address] Chris Owens MD 11/24/2024 External Device Data STL ABSTRACTION Provider, Abstract 11/23/2024 External Device Data STL ABSTRACTION Provider, Abstract 11/21/2024 External Device Data STL ABSTRACTION Provider, Abstract 11/20/2024 External Device Data STL ABSTRACTION Provider, Abstract 11/18/2024 External Device Data STL ABSTRACTION Provider, Abstract 11/13/2024 [facility] Oncology and Hematology [facility] [address] [place] [address] Chris Owens MD 11/04/2024 External Device Data STL ABSTRACTION Provider, Abstract 11/02/2024 [facility] Oncology and Hematology [facility] [address] [place] [address] Chris Owens MD 10/09/2024 [facility] Oncology and Hematology [facility] [address] [place] [address] Chris Owens MD 10/09/2024 Telephone [facility] Oncology and Hematology [facility] [address] [place] [address] Chris Owens MD Surgical Clearance 10/08/2024 External [...] on file Legal Sex Female 12:44 PM LIVER TRIMMER Gender Identity Not on file Sexual Orientation Not on file Last Filed Vital Signs Vital Sign Reading Time Taken Comments Blood Pressure 115/73 12/04/2024 10:49 AM CDT Pulse 89 12/04/2024 10:49 AM CDT Temperature 36.1 C (96.9 F) 12/04/2024 10:49 AM CDT Respiratory Rate 15 12/04/2024 10:49 AM CDT Oxygen Saturation 97% 12/04/2024 10:49 AM CDT Inhaled Oxygen Concentration - - Weight 81.6 kg (180 lb) 12/04/2024 10:49 AM CDT Height 162.6 cm (5' 4 ) 02/23/2022 11:52 AM CDT Body Mass Index 30.9 02/23/2022 11:52 AM CDT Plan of Treatment Upcoming Encounters Date Type Department Care Team (Late st Contact Info) Description 06/07/2025 1:00 PM CDT Office Visit [facility] Oncology and Hematology - [place] [address] [place] [address] [facility] [address] [place] [address] Chris Owens MD [address] [facility] [address] [place] [address] Health Maintenance Due Date Last Done Comments Pre-Diabetes and Diabetes Screening 1960 DTAP/TDAP/TD VACCINES (1 - Tdap) 1980 FIT-DNA Q 3 years 2006 FIT/FOBT Q 1 year 2006 Flex Sig/CT Colonography Q 5 years 2006 ZOSTER VACCINE (1 of 2) 2011 Lung Cancer Screening 07/15/2020 07/15/2019 INFLUENZA VACCINE (#1) 2024 [place] Preventative Visit/Annual Wellness Visit 09/16/2024 BREAST CANCER SCREENING 02/16/2025 02/17/20 24, 09/03/2023, 08/07/2023, Additional history exists COLORECTAL SCREENING 10/28/2030 10/28/2020, 05/31/20 20 Colorectal Cancer Screening 10/28/2030 RSV VACCINE (60+ or ) (1 - 1-dose 75+ series) 2036 Procedures Procedure Name Priority Date/Time Associated Diagnosis Comments CBC WITH DIFFERENTIAL Routine 12/03/2024 3:18 PM CDT MAMMO BILAT DIAGNOSTIC Routine 4 1:[address] LUNG SCREENING (LDCT BASELINE OR ANNUAL) Routine 07/15/2019 Encounter for screening for lung cancer from Last 3 Months or Most Recently Relevant to Health Maintenance Results * CBC WITH DIFFERENTIAL (12/03/2024 3:18 PM CDT) Blood us Chris Owens MD HEMATOLOGY ORDERABLES Final Res ult * MAMMO BILAT DIAGNOSTIC (02/17/2024 1:15 PM CDT) Anatomical Region Laterality Modality Breast Bilateral Mammography us Chris Owens MD MAMMO ORDERABLES Final Result * CT LUNG SCREENING (07/15/2019) Anatomical Region Laterality Modality Chest Computed Tomogra phy us Chris Owens MD CT ORDERABLES Final Result from Last 3 Months or Most Recently Relevant to Health Maintenance Insurance [facility] [id number] Care Teams Airplane Pilot Helper Relationship Specialty Start Date End Date Eris Vu MD PCP - General Family Practice 02/21/23
--- OUTSIDE RECORDS SUMMARY | 2024-12-17 14:26 | XMS_ITS | Patient Health Record ---
Author Organization [facility] Address [address] [place] [address] Care Team Providers Care Account Support Manager Name Role Phone Boris Mcnair Primary Care Provider UnavailBreann Wing Unavailable [phone] Eris Vu Unavailable Unavailable Franky Gray Unavailable [phone] Allergies Allergen (clinical drug ingredient) Drug/Non Drug Allergy documented on EMR Reaction Allergy Type Onset Date Status codeine Codeine anaphylaxis Drug Allergy Activ e hydromorphone HYDROmorphone rash Drug Allergy Active Latex Latex rash Allergy Active levofloxacin levoFLOXacin rash Drug Allergy A ctive Results Component Value Reference Range Notes -Tryptase (579239) Reviewed date:12/10/2024 07:34:10 AM Interpretation:Normal Performing Lab:[facility] [address] [id number], Phone - [phone], Director - Lyndon Notes/Report: Tryptase 6.0 2.2-13.2 ug/L Spirometry Reviewed date:08/17/2024 01:54:27 PM Interpretation:Abnormal Performing [...] 30 days Any adult spacer Active Nystatin 005987 UNIT/GM 1 application Externally Twice a day [...] Status Risk Notes Problem Allergy to penicillin (12845040) Allergy status to penicillin (Z88.0) Active confirmed Problem Eruption of skin (089713501) Rash and other nonspecific skin eruption (R21) Active confirmed Problem Carotid artery syndrome hemispheric (541318135) Carotid artery syndrome (hemispheric) (G45.1) Active confirmed Problem Heart disease (79706026) Other heart disorders in diseases classified elsewhere (I52) Active confirmed Problem Chronic rhinitis (45398483) Chronic rhinitis (J31.0) Active confirmed Problem Hypertrophy of nasal turbinates (86651881) Hypertrophy of nasal turbinates (J34.3) Active confirmed Problem Urticaria (196741275) Other urticaria (L50.8) Active confirmed Problem Fibromyalgia (766404108) Fibromyalgia (M79.7) Active confirmed Problem Swelling of head (205549201) Localized swelling, mass and lump, head (R22.0) Active confirmed Problem Toxic effect of venom (27191274) Toxic effect of venom of bees, accidental (unintentional), initial encounter (T63.441A) Active confirmed Problem Shortness of breath (441529852) Shortness of breath (R06.02) Active confirmed Problem Drug allergy (127693116) Allergy status to unspecified drugs, medicaments and biological substances (Z88.9) Active confirmed Vital Signs Oximetry 95 % 11/09/2024 Blood pressure diastolic 74 mm Hg 11/09/2024 Height 64 in 11/09/2024 Blood pressure systolic 113 mm Hg 11/09/2024 Weight 180.2 lbs 11/09/2024 BMI 30.93 kg/m2 11/09/2024 Encounters Encounter Location Date Provider Diagnosis [facility] [address] [place] [address] 08/10/2024 Breann Chavira Localized swelling, mass and [...] heart disorders in diseases classified elsewhere I52 [facility] [address] [place] [address] 10/06/2024 Breann Chavira Localized swelling, mass and [...] blood-pressure reading, without diagnosis of hypertension R03.0 [facility] [address] [place] [address] 11/09/2024 Breann Chavira Localized swelling, mass and [...] heart disorders in diseases classified elsewhere I52 [facility] [address] [place] [address] 12/17/2024 Breann Chavira [facility] [address] [place] [address] 09/29/2024 Breann Chavira [facility] [address] [place] [address] 11/02/2024 Breann Chavira [facility] [address] [place] [address] 11/09/2024 Breann Gomezpat [facility] [address] [place] [address] 11/18/2024 Breann Gomezpat Assessments Encounter Date Diagnosis (ICD Code) Assessment [...] plans below. - Will request records from [facility], as well as from her production generalist. - Follow-up in 4 weeks for laboratory [...] as she would like to go to [facility]. - Will request records from [facility], as well as from her production generalist. Still awaiting. - Follow-up in 4 weeks [...] beer without issue. She was treated at [facility], she did not receive epinephrine or use [...] request records. - Will request records from [facility], as well as from her production generalist. Still awaiting. - Follow-up in 4 weeks [...] as she would like to go to [facility] 08/10/2024 Other urticaria (ICD-10 - L50.8) [...] office as Gege prefers to go to [facility]. Will obtain full PFT with [facility] [...] office as Gege prefers to go to [facility]. Will obtain full PFT with [facility] [...] PCP 09/07/2024 Other 08/10/2024 Other 10/06/2024 Other 11/09/2024 Other Plan Of Treatment Pending Test Test Name Order Date RESPIRATORY ALLERGY PROFILE REGION VIII: [place], [place] 08/10/2024 METANEPHRINES, FRACT. LC/MS/MS, 24 HR UR INE 10/06/2024 METANEPHRINES, FRACT. LC/MS/MS, 24 HR UR INE 11/09/2024 METANEPHRINES, FRACT, FREE, LC/MS/MS, PL ASMA 11/09/2024 METANEPHRINES, FRACT, FREE, LC/MS/MS, PL ASMA 10/06/2024 TRYPTASE 10/06/2024 TRYPTASE 08/10/2024 COMPLEMENT COMPONENT C4C 08/10/2024 VMA, 24-HOUR URINE 10/06/2024 VMA, 24-HOUR URINE 11/09/2024 HOMOVANILLIC ACID, 24-HR URINE HOMOVANILLIC ACID, 24-HR URINE 5-HIAA, 24-HOUR URINE 10/06/2024 5-HIAA, 24-HOUR URINE 11/09/2024 HISTAMINE, 24 HOUR URINE 10/06/2024 HISTAMINE, 24 HOUR URINE 11/09/2024 LEUKOTRIENE E4, URINE 11/09/2024 LEUKOTRIENE E4, URINE 10/06/2024 N METHYLHISTAMINE, 24 HOUR, URINE 2024 N METHYLHISTAMINE, 24 HOUR, URINE 2024 Insurance Providers Payer Name Payer Address Payer Phone Subscriber Number Group Number Insured Name Patient Relationship to Insured Coverage Start Date Coverage End Date [facility] [employer] [address] [address] [place] [address] [id number] Gege Vidal Self - patient is [...]
--- OUTSIDE RECORDS SUMMARY | 2024-12-17 14:26 | XMS_ITS ---
Author Organization [facility] Address [address] [place] [address] Care Team Providers Care Notch Machine Operator Name Role Phone Boris Mcnair Primary Care Provider Breann Zuniga [phone] Eris Vu Unavailable Unavailable REASON FOR VISIT Chronic care management Encounters Encounter Location Date Provider Diagnosis [facility] [address] [place] [address] 11/09/2024 Breann Chavira Plan Of Treatment No Information Progress Notes * Gege VIDALDOB:1960 (64 yo F)Acc No.[id number]:11/09/2024 Patient: Gege MADERA :1960 A ge:64 Y S ex:Female Address:[address] [place], [address] * true * Date: Generated for Neal gonzalez/Randall/eTransmitting on: 0 12/17/2024 02:26 PM CDT
--- OUTSIDE RECORDS SUMMARY | 2024-12-17 14:26 | XMS_ITS | Clinical Summary ---
Author Organization [facility] Address [address] [place] [address] Care Team Providers Care Planer Operator Name Role Phone Dominic Fernando MD Primary Care Provider [phone] Allergies Active Allergy Reactions Criticality Noted Date [...] mcg tablet Take 112 mcg by mouth mixing house operator before breakfast. 07/21/2018 Active XARELTO 20 [...] (09/24/2018): Added automatically from request for surgery [id number] Surgical History Surgery Date Site/Laterality Comments CHOLECYSTECTOMY [...] on file Legal Sex Female 11:26 PM POLICY ANALYST Gender Identity Not on file Sexual Orientation Not on file Obstetrics History Last Filed Vital Signs Vital Sign Reading Time Taken Comments Blood Pressure 98/64 10/02/2019 8:21 AM POLICY ANALYST Pulse 55 10/02/2019 8:21 AM POLICY ANALYST Temperature 37.1 C (98.8 F) 11/24/2018 12:06 PM CDT Respiratory Rate 16 11/24/2018 12:06 PM CDT Oxygen Saturation 98% 11/24/2018 12:06 PM CDT Inhaled Oxygen Concentration - - Weight 80.4 kg (177 lb 3.2 oz) 10/02/2019 8:21 A M POLICY ANALYST Height 165.1 cm (5' 5 ) 10/02/2019 8:21 AM POLICY ANALYST Body Mass Index 29.49 10/02/2019 8:21 AM POLICY ANALYST Plan of Treatment Not on file Medical Devices Implanted Type Area Photo Mask Pattern Generator Device Identifier Shelf Expiration Date Model / Serial / Lot [employer]Or tho [id number] Legion 9mm Dished Knee 3-4 Insert Tibial Xlpe - [id number] Implanted:Qty: 1 on 11/11/2018 by Kemal Wright MD at [facility] Right: Knee [employer]Or tho 08/11/2028 [id number] / / [id number] [employer]Or tho [id number] 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 Taper Knee Right 4 Baseplate Tibial Titanium - [id number] Implanted:Qty: 1 on 11/11/2018 by Kemal Wright MD at [facility] Right: Knee [employer]Or tho 07/18/2028 [id number] / / [id number]- Size 4 Right Cruciate Retaining Legion Oxinium Femoral Componenet Implanted:Qty: 1 on 11/11/2018 by Kemal Wright MD at [facility] Right: Knee [employer] C1776 01/06/2028 [id number] / / [id number] [employer] [id number] Palacos R+G High Viscosity Cement Bone Gentamicin Arthroplasty - [id number] Implanted:Qty: 1 on 11/11/2018 by Kemal Wright MD at [facility] Right: Knee [employer] 04/15/2021 [id number] / / [id number] Insurance MEDICARE [facility] Advance Directives For more information, please contact: [phone] * Full Code (Latest Code Status on File) Date Activated Date Inactivated Comments 11/14/2018 1:26 PM 11/15/2018 7:15 PM * Full Code Date Activated Date Inactivated Comments 11/13/2018 10:00 AM 11/14/2018 1:16 PM per patient request * Full Code Date Activated Date Inactivated Comments 11/11/2018 7:40 PM 11/12/2018 8:26 PM Care Teams Planer Operator Relationship Specialty Start Date End Date Dominic Feranndo MD [address] [facility] [address] [place] [address] [facility] [place] [id number] PCP - General 08/13/17
--- OUTSIDE RECORDS SUMMARY | 2024-12-17 14:26 | XMS_ITS | Clinical Summary ---
Author Organization [facility] [address] Address [address] [facility] [place] [address] Care Team Providers Care Avionics Installer Name Role Phone Boris Mcnair DO Primary Care Provider [phone] Source Comments [facility],non-owned Affiliates and Associated Physician Practices is amultiple site organization consisting of ambulatory clinics and hospital sitesin [place], [place], [place] and [place]. This disclosure is being madepursuant to the Care Everywhere program and may not contain all information available regarding this patient. Last updated 18.[facility] Allergies Active Allergy Reactions Criticality Noted [...] MG tablet 10/09/2018 Active Cholecalciferol (VITAMIN D3) 09073 units capsule Active Active Problems Problem Noted [...] VACCINE (1 - 2023-2 5 season) 2024 DEPRESSION SCREENING 09/16/2024 MEDICARE AWV CALENDAR YEAR 2024 INFLUENZA VACCINE (Season Ended) 2025 Respiratory Syncytial Virus (RSV) Vaccine Pt: or [...] - 26 mg/dL 02/07/2018 1:22 PM CDT [facility] Creatinine 1.0 0.6 [...] - CHEMISTRY ORD ERABLES [facility] [address] [phone] from Last 3 Months or Most Recently Relevant to Health Maintenance Insurance Payer Benefit Plan / Group Subscriber ID Effective Dates Phone Address Type UHC MANAGED MEDICARE ADV C MEDICARE ADV [id number] Effective for all dates [address] [address] [place] [address] Medicare-Ma naged Care MEDICAID [facility] MEDICAID [facility] [id number] Effective for all dates [address] [place] [phone] Medicaid SELF PAY NO INSURANCE SELF PAY NO INSURANCE Effective for all dates [place], [place] Self Pay [facility] MANAGED MEDICARE ADV [facility] STATE RETIREES MEDICARE ADV [id number] 09/17/2024-Pres ent [address] [address] [place] [address] Medicare-[place] naged Care MEDICAID [facility] MEDICAID [facility] Effective for all dates [address] [place] [id number] Medicaid UHC MANAGED MEDICARE ADV [facility] STATE RETIREES MEDICARE ADV [id number] 09/17/2024-Pres ent [address] [address] [place] [address] Medicare-[place] naged Care MEDICAID [facility] MEDICAID [facility] Effective for all dates [address] [place] [address] Medicaid UHC MANAGED MEDICARE ADV [facility] STATE RETIREES MEDICARE ADV [id number] 09/17/2024-Pres ent [address] [address] [place] [address] Medicare-[place] naged Care MEDICAID [facility] MEDICAID [facility] Effective for all dates [address] [place] [address] Medicaid UHC MANAGED MEDICARE ADV [facility] STATE RETIREES MEDICARE ADV [id number] 09/17/2024-Pres ent [address] [address] [place] [address] Medicare-[facility] MEDICARE WPS MEDICARE PART B [id number] 04/16/2013-Pres ent [address] [address] [place] [address] Medicare MEDICAID - OUT OF [facility] MEDICAID - [facility] AID [id number] 03/24/2022-Pres ent [address] [address] [place] [address] Medicaid MEDICARE MEDICARE PART A AND B [id number] 04/16/2013-Pres ent [address] [place] [address] Medicare Advance Directives * Full Code (Latest Code Status on File) Date Activated Date Inactivated Comments 02/15/2018 8:10 AM 02/15/2018 12:04 PM * Full Code Date Activated Date Inactivated Comments 02/14/2018 7:57 AM 02/14/2018 6:16 PM Care Teams Avionics Installer Relationship Specialty Start Date End Date Boris Mcnair DO [address] [place], [place] [id number] PCP - General 04/07/19
--- OUTSIDE RECORDS SUMMARY | 2024-12-17 14:26 | XMS_ITS ---
Author Organization [facility] Address [address] [place] [address] Care Team Providers Care Heel Brusher Name Role Phone Boris Mcnair Primary Care Provider Breann Zuniga [phone] Eris Vu Unavailable Unavailable REASON FOR VISIT Laboratory Order Encounters Encounter Location Date Provider Diagnosis [facility] [address] [place] [address] 12/17/2024 Breann Chavira Plan Of Treatment No Information Progress Notes * Gege VIDALDOB:1960 (64 yo F)Acc No.[id number]:12/17/2024 Patient: Gege MADERA :1960 A ge:64 Y S ex:Female Address:[address] [place], [address] * * Date:
--- OUTSIDE RECORDS SUMMARY | 2024-12-17 14:26 | XMS_ITS | Patient Health Record ---
Author Organization [facility] Address [address], [place] [address] Care Team Providers Care Precinct Police Sergeant Name Role Phone Tanner Reid MD Primary [...] finger, initial encounter (S63.631A) 023 Active confirmed [id number] Problem Fall on same level from slipping, tripping and stumbling without subsequent striking against object, initial encounter (W01.0XXA) 023 Active confirmed 334493053 Problem Encounter for other specified surgical aftercare (Z48.89) Active confirmed Postoperative c are ([id number]) PLAN OF TREATMENT No Information Insurance Providers Payer Name Payer Address Payer Phone Subscriber Number Group Number Insured Name Patient Relationship to Insured Coverage Start Date Coverage End Date UHC Medicare Advantage PPO [address] [address] [place] [address] [id number] Gege Vidal Self - patient is the insured MEDICAL (GENERAL) HISTORY Medical History History ICD Code Hypothyroidism Surgical History Surgery Date(Month/Year) right knee arthroscopy tubal ligation tonsillectomy hysterectomy neck right knee arthroscopy shoulder arthroscopy, right x2
--- OUTSIDE RECORDS SUMMARY | 2024-12-17 14:26 | XMS_ITS | CONTINUITY OF CARE DOCUMENT ---
Author Name keke davies Address Unknown Organization [facility] Address [address] [facility] [address] [place] [address] Phone [phone] Care Team Providers Care Paying Teller Name Role Phone Vin aTy MD Unavailable INSURANCE PROVIDERS Payer name Policy type / Coverage type [place] red alliance party ID [id number] PAY [id number]
--- OUTSIDE RECORDS SUMMARY | 2024-12-17 14:27 | XMS_ITS | Continuity of Care Document ---
Author Organization [facility] Address [address] [address] [place] [address] Phone Care Team Providers Care Kitchen Utility Associate Name Role Phone Unavailable Unavailable Unavailable Advance Directives Directive Yes / No Effective Date File Name No Information Encounters Encounter Description Practice Location Reason(s) For Visit Diagnoses Date Provider Providers Copied on Encounter Formerly [facility], [address], [place], [place], [id number], [place] tel:[phone] [facility] No Information Mar-1 6-200 0 [...]
--- OUTSIDE RECORDS SUMMARY | 2024-12-17 14:27 | XMS_ITS ---
Author Organization [facility] Address [address] [place] [address] Care Team Providers Care Security Operations Specialist Name Role Phone Boris Mcnair Primary Care Provider Breann Zuniga [phone] Eris Vu Unavailable Unavailable REASON FOR VISIT Chronic care management Encounters Encounter Location Date Provider Diagnosis [facility] [address] [place] [address] 11/18/2024 Breann Chavira Plan Of Treatment No Information Progress Notes * Gege VIDALDOB:1960 (64 yo F)Acc No.[id number]:11/18/2024 Patient: Gege MADERA :1960 A ge:64 Y S ex:Female Address:[address] [place], [address] * true * Date: Generated for Neal gonzalez/Randall/eTransmitting on: 0 12/17/2024 02:26 PM CDT
== END 2024-12-17 14:03 | disposition home or self-care (01) ==
PROVIDERS: PCP Internal Medicine; Visit Provider Internal Medicine Hematology & Oncology
DX: Z12.31 Encounter for screening mammogram for malignant neoplasm of breast (principal)
CPT/HCPCS: 77063; 77067

== ENCOUNTER 2025-01-15 13:35 | Outpatient (CLI) | payer MEDICARE, MEDICAID, SELFPAY ==
--- NOTE | ~2025-01-15 | US_ITS ---
US soft tissue UE RT 01/15/2025 13:56 Indication: Spontaneous bruising of the right forearm. Patient on blood thinners. Procedure: High-resolution Limited ultrasound of the right forearm Comparison: No prior studies for comparison. Findings: Normal heterogeneous soft tissues without discrete fluid collection. No evidence for hemato ma. Impression: 1: Normal soft tissue ultrasound of the right forearm. Reviewed, dictated and finalized at location A. Impression: 1: Normal soft tissue ultrasound of the right forearm.
--- OUTSIDE RECORDS SUMMARY | 2025-01-16 14:05 | XMS_ITS | CONTINUITY OF CARE DOCUMENT ---
Author Name keke advies Address Unknown Organization [facility] Address [address] [place] [address] Phone [phone] Care Team Providers Care Coastal/Harbor Defense Officer Name Role Phone Vin Tay MD Unavailable INSURANCE PROVIDERS Payer name Policy type / Coverage type [place] red republican ID SELF PAY [id number]
--- OUTSIDE RECORDS SUMMARY | 2025-01-16 14:05 | XMS_ITS | Clinical Summary ---
Author Organization [facility] Address [address] [place] [place] [address] Care Team Providers Care School Bus Aide Name Role Phone Boris Mcnair DO Primary Care Provider [phone] [facility],non-owned Affiliates and Associated Physician Practices is amultiple site organization consisting of ambulatory clinics and hospital sitesin [place], [place], [place] and [place]. This disclosure is being madepursuant to the Care Everywhere program and may not contain all information available regarding this patient. Last updated 18.[facility] Allergies Active Allergy Reactions Criticality Noted Date [...] document. Alwaysverify current medications with the patient. XARELTO 20 MG tablet Take 20 mg by mouth once daily 8 Active atorvastatin (LIPITOR) 20 MG tablet 8 Active aspirin EC (ECOTRIN) 81 MG tablet Take 81 mg by mouth once daily Active levothyroxine (SYNTHROID) 137 MCG tablet Take 137 mcg by mouth daily before breakfast Active cyanocobalamin (VITAMIN B-12) 1000 MCG tablet Take 1,000 mcg by mouth once daily Active folic acid (FOLVITE) 1 MG tablet Take 1 mg by mouth 8 Active VENTOLIN HFA 108 (90 BASE) MCG/ACT inhaler 9 Active pantoprazole EC (PROTONIX) 20 MG tablet 9 Active Cholecalciferol (VITAMIN D3) 20986 units capsule Active Active Problems Problem Noted [...] at Not on file 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 Gender Identity Not on file [...] Health Maintenance Due Date Last Done Comments COLOGUARD (AGES 45-75) - COL ON CA SCREENING 1961 COLON MONITORING 1961 COLONOSCOPY - COLON CA SCREENING 1961 CT COLONOGRAPHY - COLON CA SCREENING 1961 Colorectal Cancer Screening 1961 FIT - COLON CA SCREENING 1961 FLEX SIG - COLON CA SCREENING 1961 MAMMOGRAM 1961 PAP SMEAR 1961 HIV SCREENING 1976 HEPATITIS C SCREENING 05/09/1979 DTAP/TDAP/TD VACCINES (1 - Tdap) 1980 PNEUMOCOCCAL VACCINE 50+ (1 of 2 - PCV) 1980 LUNG [...] - 26 mg/dL 02/07/2018 1:22 PM CDT [facility] Creatinine 1.0 0.6 - 1.2 mg/dL [...] CDT Ester Barajas DO LAB - CHEMISTRY ORDERAB[place] [address], [facility] [phone] from Last 3 Months or Most Recently Relevant to Health Maintenance Insurance MEDICARE [facility] MANAGED MEDICARE ADV [facility] MANAGED MEDICARE ADV MEDICAID [place] SELF PAY NO INSURANCE Member Subscriber Plan / Payer (Ef fective for All Dates) Name:Gege Gutierres Member ID:Not on file Relation to Subscriber:Not on file Name:GEGE GUTIERRES Subscriber ID:Not on file (Home) Address: [address] [place] [address] Payer ID:Not on file Group ID:Not on file Type:Self Pay Address: [place], [place] MEDICARE MEDICAID - OUT OF STATE [facility] MANAGED MEDICARE ADV [facility] MANAGED MEDICARE ADV [place]ID [place] [facility] MANAGED MEDICARE ADV MED[place]ID [place] [address] [place] [address] [facility] MANAGED MEDICARE ADV MEDICAID [place] [facility] MANAGED MEDICARE ADV Advance Directives * Full Code (Latest Code Status on File) Date Activated Date Inactivated Comments 02/15/2018 8:10 AM 02/15/2018 12:04 PM * Full Code Date Activated Date Inactivated Comments 02/14/2018 7:57 AM 02/14/2018 6:16 PM Care Teams School Bus Aide Relationship Specialty Start Date End Date Boris Mcnair DO [address] [place] [address] [facility] - General 04/07/19
--- OUTSIDE RECORDS SUMMARY | 2025-01-16 14:06 | XMS_ITS | Clinical Summary ---
Author Organization [facility] Address [address] [place] [address] Care Team Providers Care Director Chemistry Name Role Phone Dominic Fernando MD Primary [...] Take 112 mcg by mouth early childhood education coordinator before breakfast. 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 Gender Identity Not on file Sexual Orientation Not on file Obstetrics History Last Filed Vital Signs Vital Sign Reading Time Taken Comments Blood Pressure 98/64 10/02/2019 8:21 AM RESIDENTIAL FINISH CARPENTER Pulse 55 10/02/2019 8:21 AM RESIDENTIAL FINISH CARPENTER Temperature 37.1 C (98.8 F) 11/24/2018 12:06 PM CDT Respiratory Rate 16 11/24/2018 12:06 PM CDT Oxygen Saturation 98% 11/24/2018 12:06 PM CDT Inhaled Oxygen Concentration - - Weight 80.4 kg (177 lb 3.2 oz) 10/02/2019 8:21 A M RESIDENTIAL FINISH CARPENTER Height 165.1 cm (5' 5 ) 10/02/2019 8:21 AM RESIDENTIAL FINISH CARPENTER Body Mass Index 29.49 10/02/2019 8:21 AM RESIDENTIAL FINISH CARPENTER Plan of Treatment Not on file Medical Devices Implanted Type Area Bulk Tank Car Unloader Device Identifier Shelf Expiration Date Model / Serial / Lot [employer]hew[employer]Rich[employer]/Or tho [id number] Legion 9mm Dished Knee 3-4 Insert Tibial Xlpe - [id number] Implanted:Qty: 1 on 11/11/2018 by Kemal Wright MD at [facility] Right: Knee [employer]Or tho 08/11/2028 [id number] / / [id number] [employer]hew[employer]Rich[employer]/Or tho [id number] 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 Taper Knee Right 4 Baseplate Tibial Titanium - [id number] Implanted:Qty: 1 on 11/11/2018 by Kemal Wright MD at [facility] Right: Knee [employer]Rich[employer]/Or tho 07/18/2028 [id number] / / [id number] Size 4 Right Cruciate Retaining Legion Oxinium Femoral Componenet Implanted:Qty: 1 on 11/11/2018 by Kemal Wright MD at [facility] Right: Knee [employer]las [employer]hew [id number] 01/06/2028 [id number] / / [id number] [employer] [id number] Palacos R+G High Viscosity Cement Bone Gentamicin Arthroplasty - [id number] Implanted:Qty: 1 on 11/11/2018 by Kemal Wright MD at [facility] Right: Knee [employer] 04/15/2021 [id number] / / [id number] Insurance MEDICARE [facility] MEDICARE [facility] Advance Directives For more information, please contact: [phone] * Full Code (Latest Code Status on File) Date Activated Date Inactivated Comments 11/14/2018 1:26 PM 11/15/2018 7:15 PM * Full Code Date Activated Date Inactivated Comments 11/13/2018 10:00 AM 11/14/2018 1:16 PM per patient request * Full Code Date Activated Date Inactivated Comments 11/11/2018 7:40 PM 11/12/2018 8:26 PM Care Teams Director Chemistry Relationship Specialty Start Date End Date Dominic Fernando MD [address] [place] [address] [facility] [place] [id number] PCP - General 08/13/17
--- OUTSIDE RECORDS SUMMARY | 2025-01-16 14:06 | XMS_ITS | Clinical Summary ---
Author Organization [facility] Address [address] [place] [address] Care Team Providers Care Business Trainer Name Role Phone Eris Vu MD Primary Care Provider [phone] Allergies Active Allergy Reactions Criticality Noted Date Comments Adhesive Tape-Silicones Other (See Comments) Medium 08/19/2014 Blisters Codeine Shortness of Breath/Wheezing High 08/19/2014 Nzjkwveil-L-Gwehhge-Se jun-Brom Other (See Comments) Low 08/19/2014 Alcohol- [...] tablet by mouth once daily 30 Tablet 11/30/2024 Active Xarelto 20 mg Tablet Take 1 tablet by mouth once daily 90 Tablet 3 12/10/2024 Active Active Problems Problem Noted Date Diagnosed Date 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 01/06/2020 Diverticulitis 03/24/2018 Secondary hypercoagulable state 11/15/2017 Tobacco use 11/15/2017 Encounters Date Type Department Care Team Description 01/16/2025 Refill [facility] Oncology and Hematology - [address] [place] [address] Chris Owens MD 12/18/2024 Orders Only [facility] Oncology and Hematology - [address] [place] [address] Chris Owens MD 12/15/2024 External Device Data STL ABSTRACTION Provider, Abstract 12/10/2024 Refill [facility] Oncology and Hematology [address] [place] [address] Chris Owens MD 12/04/2024 11:30 AM CDT Office Visit [facility] Oncology and Hematology - [address] [place] [address] Chris Owens MD Chronic anemia (Primary Dx); Visit for screening mammogram 12/04/2024 Orders Only [facility] Oncology and Hematology [address] [place] [address] Chris Owens MD 12/02/2024 External Device Data STL ABSTRACTION Provider, Abstract 11/29/2024 Refill [facility] Oncology and Hematology [address] [place] [address] Chris Owens MD 11/25/2024 External Device Data STL ABSTRACTION Provider, Abstract 11/25/2024 [facility] Oncology and Hematology [facility] [address] [place] [address] Chris Owens MD 11/24/2024 External Device Data STL ABSTRACTION Provider, Abstract 11/23/2024 External Device Data STL ABSTRACTION Provider, Abstract 11/21/2024 External Device Data STL ABSTRACTION Provider, Abstract 11/20/2024 External Device Data STL ABSTRACTION Provider, Abstract 11/18/2024 External Device Data STL ABSTRACTION Provider, Abstract 11/13/2024 [facility] Oncology and Hematology [facility] [address] [place] [address] Chris Owens MD 11/04/2024 External Device Data STL ABSTRACTION Provider, Abstract 11/02/2024 [facility] Oncology and Hematology [facility] [address] [place] [address] Chris Owens MD from Last 3 Months [...] on file 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 Gender Identity Not on file Sexual [...] Description 06/07/2025 1:00 PM CDT Office Visit [facility] Oncology and Hematology - [place] [address] [facility] [address] [place] [address] Chris Owens MD [address] [place] [address] Health Maintenance Due Date Last Done Comments Pre-Diabetes and Diabetes Screening 1961 DTAP/TDAP/TD VACCINES (1 - Tdap) 1980 FIT-DNA Q 3 years 2006 FIT/FOBT Q 1 year 2006 Flex Sig/CT Colonography Q 5 years 2006 ZOSTER VACCINE (1 of 2) 2011 Lung Cancer Screening 07/15/2020 07/15/2019 INFLUENZA VACCINE (#1) 2024 BREAST CANCER SCREENING 12/17/2025 12/18/19 25, 02/17/2024, 09/03/2023, Additional history exists COLORECTAL SCREENING 10/28/2030 10/28/2020, 05/31/20 20 Colorectal Cancer Screening 10/28/2030 RSV VACCINE (60+ or ) (1 - 1-dose 75+ series) 2036 Procedures Procedure Name Priority Date/Time Associated Diagnosis Comments MAMMO SCREENING BILAT Routine 12/17/2024 10:40 AM CDT CBC WITH DIFFERENTIAL Routine 12/03/2024 3:[address] LUNG SCREENING (LDCT BASELINE OR ANNUAL) Routine 07/15/2019 Encounter for screening for lung cancer from Last 3 Months or Most Recently Relevant to Health Maintenance Results * MAMMO SCREENING BILAT (12/17/2024 10:40 AM CDT) Anatomical Region Laterality Modality Breast Bilateral Mammography us Chris Owens MD MAMMO ORDERABLES Final Result * CBC WITH DIFFERENTIAL (12/03/2024 3:18 PM CDT) Blood us Chris Owens MD HEMATOLOGY ORDERABLES Final Res ult * CT LUNG SCREENING (07/15/2019) Anatomical Region Laterality Modality Chest Computed Tomogra phy us Chris Owens MD CT ORDERABLES Final Result from Last 3 Months or Most Recently Relevant to Health Maintenance [facility] [id number] Care Teams Business Trainer Relationship Specialty Start Date End Date Eris Vu MD PCP - General Family Practice 02/21/23
--- OUTSIDE RECORDS SUMMARY | 2025-01-16 14:06 | XMS_ITS | Continuity of Care Document ---
Author Organization [facility] Address [address] [place] [address] Phone Care Team Providers Care Night Stocker Name Role Phone Unavailable Unavailable Unavailable Advance Directives Directive Yes / No Effective Date File Name No Information Encounters Encounter Description Practice Location Reason(s) For Visit Diagnoses Date Provider Providers Copied on Encounter [facility], [address] [place], [place], [id number], [place] tel:[phone] [facility]J [facility] No Information Mar-1 6-200 0 No [...]
--- OUTSIDE RECORDS SUMMARY | 2025-01-16 14:06 | XMS_ITS | Referral Summary ---
Author Organization [facility] Address [address] [place] [address] Care Team Providers Care Aircraft Fueler Name Role Phone Dominic Fernando MD Primary Care Provider [phone] Allergies Active Allergy Reactions Criticality Noted Date [...] mcg tablet Take 112 mcg by mouth wax room supervisor before breakfast. 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 Gender Identity Not on file Sexual Orientation Not on file Last Filed Vital Signs Vital Sign Reading Time Taken Comments Blood Pressure 98/64 10/02/2019 8:21 AM PIGMENT SUPPLIER Pulse 55 10/02/2019 8:21 AM PIGMENT SUPPLIER Temperature 37.1 C (98.8 F) 11/24/2018 12:06 PM CDT Respiratory Rate 16 11/24/2018 12:06 PM CDT Oxygen Saturation 98% 11/24/2018 12:06 PM CDT Inhaled Oxygen Concentration - - Weight 80.4 kg (177 lb 3.2 oz) 10/02/2019 8:21 A M PIGMENT SUPPLIER Height 165.1 cm (5' 5 ) 10/02/2019 8:21 AM PIGMENT SUPPLIER Body Mass Index 29.49 10/02/2019 8:21 AM PIGMENT SUPPLIER Plan of Treatment Not on file Medical Devices Implanted Type Area Mining Support Worker Device Identifier Shelf Expiration Date Model / Serial / Lot [employer] Nephew[employer]Richco/Or tho [id number] Legion 9mm Dished Knee 3-4 Insert Tibial Xlpe - [id number] Implanted:Qty: 1 on 11/11/2018 by Kemal Wright MD at [facility] Right: Knee [employer]Or tho 08/11/2028 [id number] / / [id number] Is[employer]Or tho [id number] 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 Taper Knee Right 4 Baseplate Tibial Titanium - [id number] Implanted:Qty: 1 on 11/11/2018 by Kemal Wright MD at [facility] Right: Knee [employer]Or tho 07/18/2028 [id number] / / [id number] Size 4 Right Cruciate Retaining Legion Oxinium Femoral Componenet Implanted:Qty: 1 on 11/11/2018 by Kemal Wright MD at [facility] Right: Knee [employer]hew [id number] 01/06/2028 [id number] / / [id number] [employer] [id number] Palacos R+G High Viscosity Cement Bone Gentamicin Arthroplasty - [id number] Implanted:Qty: 1 on 11/11/2018 by Kemal Wright MD at [facility] Right: Knee [employer] 04/15/2021 [id number] / / [id number] Insurance MEDICARE [facility] MED[facility]ARE [facility] Advance Directives For more information, please contact: [phone] * Full Code (Latest Code Status on File) Date Activated Date Inactivated Comments 11/14/2018 1:26 PM 11/15/2018 7:15 PM * Full Code Date Activated Date Inactivated Comments 11/13/2018 10:00 AM 11/14/2018 1:16 PM per patient request * Full Code Date Activated Date Inactivated Comments 11/11/2018 7:40 PM 11/12/2018 8:26 PM Care Teams Aircraft Fueler Relationship Specialty Start Date End Date Dominic Fernando MD [address] [facility] [address] [place] [address] PCP - General 08/13/17
--- OUTSIDE RECORDS SUMMARY | 2025-01-16 14:06 | XMS_ITS | Clinical Summary ---
Author Organization [facility] Address [address] [place] [address] Care Team Providers Care Piano Tuner Name Role Phone Eris Vu MD Primary Care Provider [phone] Allergies Active Allergy Reactions Criticality Noted Date [...] Colonoscopy (10 Years) 1961 Annual Physical 1964 Hepatitis C 1979 DTaP, Tdap and Td Vaccines ( 1 - Tdap) 1980 Pneumococcal Vaccine: 50+ Years (1 of 2 - PCV) 1980 Cervical Cancer Screening Pa p with [...] this topic Medical Devices Implanted Type Area Certified Ophthalmic Surgical Assistant Device Identifier Shelf Expiration Date Model / Serial / Lot Tecnis 1-Piece Iol Implanted:Qty: 1 on 06/08/2024 by Jadon Vu MD at [facility] Left: Eye [employer] 10/27/2026 / [id number] / Insurance [id number] MEDICAID Care Teams Piano Tuner Relationship Specialty Start Date End Date Eris Vu MD [address] [place] [address] PCP - General FAMILY PRACTICE 06/05/24
== END 2025-01-15 13:36 | disposition home or self-care (01) ==
LOC: CHSIMG 13:36
PROVIDERS: PCP Internal Medicine; Visit Provider Internal Medicine
DX: S50.11XA Contusion of right forearm, initial encounter (principal); S59.911A Unspecified injury of right forearm, initial encounter
CPT/HCPCS: 76882

== ENCOUNTER 2025-01-17 19:25 | Emergency (ER) | payer MEDICARE, MEDICAID, SELFPAY ==
--- NOTE | ~2025-01-17 | CT_ITS ---
CT ANGIOGRAM NECK AND HEAD History: Headache. Technique: Axial noncontrast imaging of brain was performed. Serial spiral axial images through the h ead and neck were then obtained during arterial phase IV injection of 100 cc of Omnipaque 350. 3-D po stprocessing and MIP images were then reconstructed on the remote workstation. Dose reduction techniq ue was used on this scan by utilizing automated exposure control and iterative reconstruction techniq ue. The dose-length product (DLP) was 1588.47 mGy-cm. COMPARISON: 04/06/2024 CTA neck findings: Bilateral vertebral arteries are patent. Right vertebral artery is relatively hyp oplastic, and terminates as right PICA, normal variant. Bilateral common carotid, internal carotid, a nd external carotid arteries are patent. No stenosis or large vessel occlusion. No aneurysm. The prox imal right internal carotid artery demonstrates 0% stenosis relative to the normal distal artery lume n diameter. The proximal left internal carotid artery demonstrates 0% stenosis relative to the normal distal artery lumen diameter. CTA head findings: Distal vertebral arteries, basilar artery, and posterior cerebral arteries are pat ent. Distal internal carotid arteries, middle cerebral arteries, and anterior cerebral arteries are p atent. No large vessel occlusion or stenosis. No aneurysm. Axial noncontrast imaging of the brain is unremarkable. No acute infarct, intracranial hemorrhage or mass lesion seen. No mass effect or midline shift. Garcia-white differentiation intact. Ventricles and subarachnoid spaces are unremarkable. Paranasal sinuses and mastoid air cells are clear. Calvarium in tact. Impression: No significant abnormalities. Reviewed, dictated and finalized at location . Impression: No significant abnormalities.
[2025-01-17 19:26] VITALS: BP 142/68; PULSE 100; RESP 16; TEMP 36.9; O2SAT 98
--- OUTSIDE RECORDS SUMMARY | 2025-01-17 19:28 | XMS_ITS | Encounter Summary ---
Author Organization [facility] Address [address] [place] [address] Care Team Providers Care Fire Technician Name Role Phone Eris Vu MD Primary Care Provider [phone] Reason for Visit * Reason Comments Med Refill Encounter Details Date Type Department Care Team ([facility] Contact Info) Description 01/16/[address] 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 Oncology [facility] Hematology [facility] [address] [place] [address] Chris Owens MD [facility] [employer] [address] [place] [address] documented as of this encounter Visit Diagnoses Not on filedocumented in this encounter Care Teams Fire Technician Relationship Specialty Start Date End Date Eris Vu MD PCP - General Family Practice 02/21/23 documented as of this encounter
--- OUTSIDE RECORDS SUMMARY | 2025-01-17 19:28 | XMS_ITS | Clinical Summary ---
Author Organization [facility] Address [address] [place] [address] Care Team Providers Care Hris Administrator Name Role Phone Boris Mcnair DO Primary Care Provider [phone] Source Comments [facility],non-owned Affiliates and Associated Physician Practices is amultiple site organization consisting of ambulatory clinics and hospital sitesin [place], [place], [place] and [place]. This disclosure is being madepursuant to the Care Everywhere program and may not contain all information available regarding this patient. 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 Creatinine 1.0 0.6 - 1.2 mg/dL 02/07/2018 1:22 PM [facility] Sodium 136 136 - 145 mmol/L 02/07/2018 1:22 PM [facility] Potassium 3.6 3.5 - 4.5 mmol/L 02/07/2018 1:22 PM [facility] Chloride 101 98 - 107 mmol/L 02/07/2018 1:22 PM [facility] CO2 25 22 - 29 mmol/L 02/07/2018 1:22 PM [facility] Glucose 93 70 - 115 mg/dL 02/07/2018 1:22 PM [facility] Calcium 9.9 8.4 - 10.2 mg/dL 02/07/2018 1:22 PM [facility] Protein Total 7.6 6.0 - 8.3 g/dL 02/07/2018 1:22 PM [facility] Albumin 3.5 3.4 - 5.0 g/dL 02/07/2018 1:22 PM [facility] Bilirubin Total 0.7 0.2 - 1.2 mg/dL 02/07/2018 1:22 PM [facility] Alkaline Phosphatase 109 40 - 150 Units/L 02/07/2018 1:22 PM [facility] ALT 22 0 - 55 Units/L 02/07/2018 1:22 PM [facility] AST 23 5 - 34 Units/L 02/07/2018 1:22 PM [facility] Anion Gap 14 8 - 18 02/07/2018 1:22 PM [facility] BUN/Creatinine Ratio 8 7 - 23 02/07/2018 1:22 PM [facility] Osmolality Calculated 280 270 - 300 mOsm/kg 02/07/2018 1:22 PM [facility] Albumin/Globulin Ratio 0.9(L) 1.1 - 2.3 02/07/2018 1:22 PM [facility] eGFR 57(L) >60 mL/min/1.7 3 m2 02/07/2018 1:22 PM [facility] Blood BLOOD SPECIMEN / Unknown Lab Venipuncture / Unknown 02/07/2018 12:50 PM CDT 02/07/2018 12:55 PM CDT Ester Barajas DO LAB - CHEMISTRY [place] [address], [facility] [phone] from Last 3 Months or Most Recently Relevant to Health Maintenance Insurance MEDICARE [facility] MANAGED MEDICARE ADV [facility] MANAGED MEDICARE ADV [place] SELF PAY NO INSURANCE Member Subscriber Plan / Payer (Ef fective for All Dates) Name:Gege Gutierres Member ID:Not on file Relation to Subscriber:Not on file Name:GEGE GUTIERRES Subscriber ID:Not on file (Home) Address: [address] [place] [address] Payer ID:Not on file Group ID:Not on file Type:Self Pay Address: [place], [place] MEDICARE MEDICAID - OUT OF STATE [facility] MANAGED MEDICARE ADV [facility] MANAGED MEDICARE ADV [place] [facility] MANAGED MEDICARE ADV MEDICAID [place] [address] [place] [address] [facility] MANAGED MEDICARE ADV [place]ID [place] [facility] MANAGED MEDICARE ADV Advance Directives * Full Code (Latest Code Status on File) Date Activated Date Inactivated Comments 02/15/2018 8:10 AM 02/15/2018 12:04 PM * Full Code Date Activated Date Inactivated Comments 02/14/2018 7:57 AM 02/14/2018 6:16 PM Care Teams Hris Administrator Relationship Specialty Start Date End Date Boris Mcnair DO [address] [place] [address] [facility] - General 04/07/19
--- OUTSIDE RECORDS SUMMARY | 2025-01-17 19:29 | XMS_ITS | Referral Summary ---
Author Organization [facility] Address [address] [place] [address] Care Team Providers Care Maintenance Mechanic 2Nd Shift Name Role Phone Dominic Fernando MD Primary Care Provider [phone] Allergies Active Allergy Reactions Criticality Noted Date [...] mcg tablet Take 112 mcg by mouth pastry finisher before breakfast. 07/21/2018 Active XARELTO 20 mg [...] (09/24/2018): Added automatically from request for surgery [id number] Social History Tobacco Use Types Packs/Day Years Used Date Smoking Tobacco: Every Day Cigarettes Smokeless Tobacco: Current Comments:quitting now, 1 pac k last 2-3 days Alcohol Use Standard Drinks/Week Comments No 0 (1 standard drink = 0.6 oz pur e alcohol) Comments No Sex and Gender Information Value Date Recorded Sex Assigned at Not on file Legal Sex Female 11:26 PM REGULATED PROGRAM MANAGER Gender Identity Not on file Sexual Orientation Not on file Last Filed Vital Signs Vital Sign Reading Time Taken Comments Blood Pressure 98/64 10/02/2019 8:21 AM REGULATED PROGRAM MANAGER Pulse 55 10/02/2019 8:21 AM REGULATED PROGRAM MANAGER Temperature 37.1 C (98.8 F) 11/24/2018 12:06 PM CDT Respiratory Rate 16 11/24/2018 12:06 PM CDT Oxygen Saturation 98% 11/24/2018 12:06 PM CDT Inhaled Oxygen Concentration - - Weight 80.4 kg (177 lb 3.2 oz) 10/02/2019 8:21 A M REGULATED PROGRAM MANAGER Height 165.1 cm (5' 5 ) 10/02/2019 8:21 AM REGULATED PROGRAM MANAGER Body Mass Index 29.49 10/02/2019 8:21 AM REGULATED PROGRAM MANAGER Plan of Treatment Not on file Medical Devices Implanted Type Area Prospect Manager Device Identifier Shelf Expiration Date Model / Serial / Lot [employer] Nephew[employer]Rich[employer]Or tho [id number] Legion 9mm Dished Knee 3-4 Insert Tibial Xlpe - [id number] Implanted:Qty: 1 on 11/11/2018 by Kemal Wright MD at [facility] Right: Knee [employer]Or [employer] 08/11/2028 [id number] / / [id number] [employer]hew[employer]Or tho [id number] 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 Taper Knee Right 4 Baseplate Tibial Titanium - [id number] Implanted:Qty: 1 on 11/11/2018 by Kemal Wright MD at [facility] Right: Knee [employer]Rich[employer]Or tho 07/18/2028 [id number] / / [id number] Size 4 Right Cruciate Retaining Legion Oxinium Femoral Componenet Implanted:Qty: 1 on 11/11/2018 by Kemal Wright MD at [facility] Right: Knee [employer]las [employer] Nephew [id number] 01/06/2028 [id number] / / [id number] [employer] [id number] Palacos R+G High Viscosity Cement Bone Gentamicin Arthroplasty - [id number] Implanted:Qty: 1 on 11/11/2018 by Kemal Wright MD at [facility] Right: Knee [employer] 04/15/2021 [id number] / / [id number] Insurance MEDICARE [place] MEDICARE [facility] Address: [address] [address] [place] [address] [employer] Advance Directives For more information, please contact: [phone] * Full Code (Latest Code Status on File) Date Activated Date Inactivated Comments 11/14/2018 1:26 PM 11/15/2018 7:15 PM * Full Code Date Activated Date Inactivated Comments 11/13/2018 10:00 AM 11/14/2018 1:16 PM per patient request * Full Code Date Activated Date Inactivated Comments 11/11/2018 7:40 PM 11/12/2018 8:26 PM Care Teams Maintenance Mechanic 2Nd Shift Relationship Specialty Start Date End Date Dominic Fernando MD [address] [facility] [address] [place] [address] PCP - General 08/13/17
--- OUTSIDE RECORDS SUMMARY | 2025-01-17 19:29 | XMS_ITS | Clinical Summary ---
Author Organization [facility] Address [address] [place] [address] Care Team Providers Care Special Distribution Clerk Name Role Phone Eris Vu MD Primary Care Provider [phone] Allergies Active Allergy Reactions Criticality Noted Date [...] this topic Medical Devices Implanted Type Area Connie Cleaner Device Identifier Shelf Expiration Date Model / Serial / Lot Tecnis 1-Piece Iol Implanted:Qty: 1 on 06/08/2024 by Jadon Vu MD at [facility] Left: Eye [employer] 10/27/2026 / [id number] / Insurance [id number] MEDICAID Care Teams Special Distribution Clerk Relationship Specialty Start Date End Date Eris Vu MD [address] [place] [address] PCP - General FAMILY PRACTICE 06/05/24
--- OUTSIDE RECORDS SUMMARY | 2025-01-17 19:29 | XMS_ITS | Continuity of Care Document ---
Author Organization [facility] Address [address] [place] [address] Phone Care Team Providers Care Bog Worker Name Role Phone Unavailable Unavailable Unavailable Advance Directives Directive Yes / No Effective Date File Name No Information Encounters Encounter Description Practice Location Reason(s) For Visit Diagnoses Date Provider Providers Copied on Encounter [facility], [address], [place], [place], [id number], [place] tel:[phone] [facility] No Information Mar-1 6-200 0 No Information [...]
--- OUTSIDE RECORDS SUMMARY | 2025-01-17 19:29 | XMS_ITS | Clinical Summary ---
Author Organization [facility] Address [address] [place] [address] Care Team Providers Care Dental Surgery Doctor Name Role Phone Eris Vu MD Primary Care Provider [phone] Allergies Active Allergy Reactions Criticality Noted Date Comments Adhesive Tape-Silicones Other (See Comments) Medium 08/19/2014 Blisters Codeine Shortness of Breath/Wheezing High 08/19/2014 Cqsndyegq-F-Vktuein-Se jun-Brom Other (See Comments) Low 08/19/2014 Alcohol- [...] Type Department Care Team Description 01/16/2025 Refill [facility] - [address] [place] [address] Chris Owens MD 12/18/2024 Orders Only [facility] - [address] [place] [address] Chris Owens MD 12/15/2024 External Device Data STL ABSTRACTION Provider, Abstract 12/10/2024 Refill [facility] [address] [place] [address] Chris Owens MD 12/04/2024 11:30 AM CDT Office Visit [facility] - [address] [place] [address] Chris Owens MD Chronic anemia (Primary Dx); Visit for screening mammogram 12/04/2024 Orders Only [facility] [address] [place] [address] Chris Owens MD 12/02/2024 External Device Data STL ABSTRACTION Provider, Abstract 11/29/2024 Refill [facility] [address] [place] [address] Chris Owens MD 11/25/2024 External Device Data STL ABSTRACTION Provider, Abstract 11/25/2024 [facility] On[facility] H[facility] [address] [place] [address] Chris Owens MD 11/24/2024 External Device Data STL ABSTRACTION Provider, Abstract 11/23/2024 External Device Data STL ABSTRACTION Provider, Abstract 11/21/2024 External Device Data STL ABSTRACTION Provider, Abstract 11/20/2024 External Device Data STL ABSTRACTION Provider, Abstract 11/18/2024 External Device Data STL ABSTRACTION Provider, Abstract 11/13/2024 [facility] [address] [place] [address] Chris Owens MD 11/04/2024 External Device Data STL ABSTRACTION Provider, Abstract 11/02/2024 [facility] [address] [place] [address] Chris Owens MD from Last 3 Months [...] on file 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 Gender Identity Not on file Sexual Orientation [...] Description 06/07/2025 1:00 PM CDT Office Visit [facility] - [place] [address] [facility] [address] [place] [address] Chris Owens MD [address] [facility] [address] [place] [address] Health Maintenance Due Date Last [...] Recently Relevant to Health Maintenance [facility] [id number] Care Teams Dental Surgery Doctor Relationship Specialty Start Date End Date Eris Vu MD PCP - General Family Practice 02/21/23
--- OUTSIDE RECORDS SUMMARY | 2025-01-17 19:29 | XMS_ITS | CONTINUITY OF CARE DOCUMENT ---
Author Name keke davies Address Unknown Organization [facility] Address [address] [place] [address] Phone [phone] Care Team Providers Care Metal Ceiling Builder Name Role Phone Vin Tay MD Unavailable INSURANCE PROVIDERS Payer name Policy type / Coverage type [place] red green party ID [id number] PAY [id number]
--- OUTSIDE RECORDS SUMMARY | 2025-01-17 19:29 | XMS_ITS | Clinical Summary ---
Author Organization [facility] Address [address] [place] [address] Care Team Providers Care Photo Technician Name Role Phone Dominic Fernando MD Primary Care Provider [phone] Allergies Active Allergy Reactions Criticality Noted Date [...] mcg tablet Take 112 mcg by mouth irrigation teacher before breakfast. 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 Gender Identity Not on file Sexual Orientation Not on file Obstetrics History Last Filed Vital Signs Vital Sign Reading Time Taken Comments Blood Pressure 98/64 10/02/2019 8:21 AM WATER PUMPER Pulse 55 10/02/2019 8:21 AM WATER PUMPER Temperature 37.1 C (98.8 F) 11/24/2018 12:06 PM CDT Respiratory Rate 16 11/24/2018 12:06 PM CDT Oxygen Saturation 98% 11/24/2018 12:06 PM CDT Inhaled Oxygen Concentration - - Weight 80.4 kg (177 lb 3.2 oz) 10/02/2019 8:21 A M WATER PUMPER Height 165.1 cm (5' 5 ) 10/02/2019 8:21 AM WATER PUMPER Body Mass Index 29.49 10/02/2019 8:21 AM WATER PUMPER Plan of Treatment Not on file Medical Devices Implanted Type Area Bread Stacker Device Identifier Shelf Expiration Date Model / Serial / Lot [employer] tho [id number] Legion 9mm Dished Knee 3-4 Insert Tibial Xlpe - [id number] Implanted:Qty: 1 on 11/11/2018 by Kemal Wright MD at [facility] Right: Knee [employer] 08/11/2028 [id number] / / [id number] [employer]Or tho [id number] 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 Taper Knee Right 4 Baseplate Tibial Titanium - [id number] Implanted:Qty: 1 on 11/11/2018 by Kemal Wright MD at [facility] Right: Knee [employer]Or tho 07/18/2028 [id number] / / [id number] Size 4 Right Cruciate Retaining Legion Oxinium Femoral Componenet Implanted:Qty: 1 on 11/11/2018 by Kemal Wright MD at [facility] Right: Knee [employer] [id number] 01/06/2028 [id number] / / [id number] [employer] [id number] Palacos R+G High Viscosity Cement Bone Gentamicin Arthroplasty - [id number] Implanted:Qty: 1 on 11/11/2018 by Kemal Wright MD at [facility] Right: Knee [employer] 04/15/2021 [id number] / / [id number] Insurance MEDICARE [facility] MEDICARE [facility] Advance Directives For more information, please contact: [phone] * Full Code (Latest Code Status on File) Date Activated Date Inactivated Comments 11/14/2018 1:26 PM 11/15/2018 7:15 PM * Full Code Date Activated Date Inactivated Comments 11/13/2018 10:00 AM 11/14/2018 1:16 PM per patient request * Full Code Date Activated Date Inactivated Comments 11/11/2018 7:40 PM 11/12/2018 8:26 PM Care Teams Photo Technician Relationship Specialty Start Date End Date Dominic Fernando MD [address] [facility] [facility] [address] [address] [place] [address] [facility] [place] [id number] PCP - General 08/13/17
[2025-01-17 20:38] VITALS: O2SAT 99
[2025-01-17 20:42] VITALS: BP 138/73; PULSE 82; RESP 18; O2SAT 99
--- NOTE | 2025-01-17 21:08 | ED.GENADULT ---
HPI - General Adult General Chief complaint: Recheck/Abnormal Lab/Rx Stated complaint: bruising under left eye Time Seen by Provider: 01/17/25 20:45 History of Present Illness HPI narrative: 64-year-old female present to the emergency department for evaluation for ecchymosis just under her left eye. Patient does have prior history of CVA does take Xarelto and aspirin. Patient states she did have some upset stomach today so she was resting and her family at home he knows she had some bruising under her left eye. Patient denies any falls or injury. Patient does report some mild headache but denies any focal neurologic changes and denies any change in vision of the left eye. Related Data Home Medications ?Medication ?Instructions ?Recorded ?Confirmed ?Last Taken ?Type rivaroxaban 20 mg tablet (Xarelto) 20 mg PO DAILY 07/29/19 01/13/25 10/16/24 History folic acid 1 mg tablet 1 mg PO DAILY 08/04/19 01/13/25 10/18/24 History aspirin 81 mg chewable tablet 81 mg PO DAILY 10/06/22 01/13/25 10/18/24 History ergocalciferol (vitamin D2) 1,250 1,250 mcg PO MONTHLY 03/24/24 01/13/25 10/16/24 History mcg (50,000 unit) capsule ferrous sulfate 325 mg (65 mg 325 mg PO DAILY 03/24/24 01/13/25 10/14/24 History iron) tablet (Feosol) lactobacillus combination no.9 4 4,000 mmu cells PO DAILY 03/24/24 01/13/25 10/16/24 History billion cell capsule (Adult 50 Plus Probiotic) cholecalciferol (vitamin D3) 25 1,000 unit PO 3XW 10/13/24 01/13/25 10/16/24 History mcg (1,000 unit) capsule (Vitamin D3) cyanocobalamin (vitamin B-12) 1,000 mcg PO 3XW 10/13/24 01/13/25 10/16/24 History 1,000 mcg tablet (Vitamin B-12) Allergies Allergy/AdvReac Type Severity Reaction Status Date / Time codeine Allergy Severe Anaphylaxis Verified 01/13/25 10:37 hydromorphone Allergy Severe Blister Verified 01/13/25 10:37 latex Allergy Severe Blister Verified 01/13/25 10:37 levofloxacin Allergy Severe BLISTERS Verified 01/13/25 10:37 ON BODY morphine Allergy Severe Hypotension Verified 01/13/25 10:37 oxycodone Allergy Severe Blister Verified 01/13/25 10:37 penicillin G Allergy Severe ANAPHYLACTI Verified 01/13/25 10:37 C Penicillins Allergy Severe Anaphylaxis Verified 01/13/25 10:37 shellfish derived Allergy Severe Swelling Verified 01/13/25 10:37 of Lip/Tongue/Throat vancomycin Allergy Severe Red [place], Verified 01/13/25 10:37 Patient unsure of reaction hydrocodone Allergy Intermediate Itching Verified 01/13/25 10:37 dexamethasone (From Maxitrol) Allergy Swelling Verified 01/13/25 10:37 of the Eye metoprolol Allergy Other Verified 01/13/25 10:37 neomycin (From Maxitrol) Allergy Swelling Verified 01/13/25 10:37 of the Eye polymyxin B (From Maxitrol) Allergy Swelling Verified 01/13/25 10:37 of the Eye Review of Systems Review of Systems: All systems reviewed & are unremarkable except as noted in HPI and below PMFSH Past Medical History Medical History Non-specific colitis History of colitis Hypothyroidism Hyperlipidemia Carotid artery disease Status post left carotid endarterectomy. Symptomatic PVCs On metoprolol 50 milligrams daily. Hx of deep venous thrombosis Current use of [facility] anticoagulation Dysphagia History of diverticulitis of colon Adenomatous colon polyp Colon, diverticulosis Lymphocytic colitis GERD (gastroesophageal reflux disease) CVA (cerebral vascular accident) With short-term memory loss. Positive colorectal cancer screening using Cologuard test History of cervical cancer S/p partial hysterectomy Fibromyalgia COVID-19 (01/2022) Tobacco abuse COPD (chronic obstructive pulmonary disease) On [facility] drug therapy Recurrent falls Colon cancer screening History of colon polyps Otitis media Hypersomnia Low hemoglobin Vertigo Osteoarthritis Diverticulosis With history of diverticulitis. Personal history of nicotine dependence Vitamin B12 deficiency Vitamin D deficiency Surgical History Surgical History Status post cholecystectomy Status post tonsillectomy S/P medial meniscectomy of left knee (09/2021) History of shoulder surgery History of neck surgery Hx of total knee arthroplasty Right History of arthroplasty of right knee History of left-sided carotid endarterectomy Status post cervical spinal fusion Status post right rotator cuff repair Status post tubal ligation Status post left breast biopsy Status post partial hysterectomy For cervical cancer. Family History Family History Mother Depression Family history of diabetes mellitus in first degree relative Diabetes mellitus Father Family history of diabetes mellitus in first degree relative Acute myocardial infarction Diabetes mellitus Sibling Hepatitis Pulmonary embolism Sibling No problems noted. Other Family history of allergic disorder Family history of cardiovascular disease Family history of malignant neoplasm Hypertension Social History Social History Social History: The patient is . She lives with her son in [place]. She designates her sons, Laith Howard and Kemal Islas, as her surrogate decision makers and she wishes to be a full code. She has smoked at least 1 pack of cigarettes per day for almost 40 years. She denies alcohol and drug abuse. Smoking packs per day: 1 Smoking cigarettes per day: 20.0 Years smoked: 40 Smoking pack-years: 40.00 Smoking status: Former smoker Second hand tobacco smoke exposure: Yes Alcohol intake: never Alcohol use details: reaction to ETOH Substance use: never Substance use type: does not use Do You Feel Safe in your Home?: Yes Lack of Transportation: No Lack of Food: Never True Current Housing: I Have Housing Concerned About Future Housing: No Difficulty Paying Gas/Electric Bills: No Difficulty Paying for Meds: No Currently Unemployed: No Education: High School Diploma/GED Difficulty w/ Childcare or Family Care: No Living arrangements: with family Occupation/Education: retired 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 HEAD: normocephalic, mild area ecchymosis on her left eye. EYES: PERRLA/EOMI, conjunctivae clear. No subconjunctival hemorrhage, retinal hemorrhage. Normal Ocular fundus NOSE: Normal no drainage EARS:TMS clear with good light reflex. THROAT: Pharynx clear, no exudate. NECK: Supple. No adenopathy, no masses. RESPIRATORY: Airway patent, respirations nonlabored. Clear to auscultation bilaterally, no rales, rhonchi, wheezing. CARDIOVASCULAR: Regular rate and rhythm without murmurs rubs or gallops. ABDOMINAL: Soft, nontender, nondistended, normal bowel sounds MUSCULOSKELETAL: Moves all extremities. Strength/ROM intact, No edema, No calf tenderness. NEURO: Alert. Cranial nerves II through XII intact. Grossly intact SKIN: Warm, dry. Normal Color Course Vital Signs Vital signs: Vital Signs Temperature 98.4 F 01/17/25 19: Pulse Rate 100 01/17/25 19: Respiratory Rate 16 01/17/25 19: Blood Pressure 142/68 H 01/17/25 19: Pulse Oximetry 98 01/17/25 19: Oxygen Delivery Room Air 01/17/25 19: Temperature 98.4 F 01/17/25 19: Pulse Rate 97 01/18/25 00:24 Respiratory Rate 18 01/18/25 00:24 Blood Pressure 118/74 01/18/25 00:24 Pulse Oximetry 100 01/18/25 00:24 Oxygen Delivery Room Air 01/17/25 19:26 Medical Decision Making MDM Narrative Medical decision making narrative: 64-year-old female presented emergency department for evaluation for bruising on her left eye. Patient denies any visual changes. Patient denies any pain or injury. Patient does report headache and does take Xarelto and aspirin. Patient is currently afebrile with no leukocytosis hemoglobin 12.6. INR 0.9. Patient has no acute abnormalities on her CMP. Patient was neurologically intact with no visual changes in the left eye, no evidence hemorrhage. Head CT was negative for acute intracranial abnormality. Patient was updated on the results of the imaging and patient was comfortable throughout for discharge and close follow-up with primary care physician. Differential Diagnosis Differential Diagnosis: Subdural hematoma, subarachnoid hemorrhage, CVA, retinal hemorrhage Vital Signs Vital Signs: Vital Signs Temperature 98.4 F 01/17/25 19:26 Pulse Rate 100 01/17/25 19: Respiratory Rate 16 01/17/25 19: Blood Pressure 142/68 H 01/17/25 19: Pulse Oximetry 98 01/17/25 19:26 Oxygen Delivery Room Air 01/17/25 19:26 Temperature 98.4 F 01/17/25 19:26 Pulse Rate 97 01/18/25 00:24 Respiratory Rate 18 01/18/25 00:24 Blood Pressure 118/74 01/18/25 00:24 Pulse Oximetry 100 01/18/25 00:24 Oxygen Delivery Room Air 01/17/25 19:26 Lab Data Lab results reviewed: Yes I reviewed the patient's lab results. 01/17/25 21:50 01/17/25 21:50 Labs: Lab Results 01/17/25 Range/Units 21:50 WBC 8.5 (4.5-10.0) K/mm3 RBC 4.78 (4.2-5.4) M/mm3 Hgb 12.6 (12.0-15.0) g/dL Hct 41.6 (37.0-47.0) % MCV 87.0 (80-100) fl MCH 26.4 (26-34) pg MCHC 30.3 L (32-36) g/dl RDW 14.3 (11.5-14.5) % Plt Count 368 (150-375) k/mm3 MPV 9.4 (7.4-10.4) fl Immature Gran % (Auto) 0.4 (0-0.5) % Neut % (Auto) 61.2 (45.5-73.1) % Lymph % (Auto) 28.9 (18.3-44.2) % [place] % (Auto) 6.0 (2.6-8.5) % Eos % (Auto) 2.9 (0-4.4) % Baso % (Auto) 0.6 (0.2-1.2) % Lymph # (Auto) 2.46 (0.9-3.2) K/mm3 [place] # (Auto) 0.5 (0.1-0.6) K/mm3 Eos # (Auto) 0.3 (0-0.3) K/mm3 Baso # (Auto) 0.1 (0.0-0.1) K/mm3 Abs Immat Gran (auto) 0.03 (0.00-0.031) K/mm3 Absolute Neuts (auto) 5.2 (1.3-6.7) K/mm3 Absolute Nucleated RBC 0.000 (0.0-0.012) K/mm3 Nucleated RBC % 0.0 (0.0-0.2) % PT 12.7 (11.1-14.7) Seconds INR 0.9 APTT 29.3 (22.3-36.8) Seconds Sodium 140 (137-145) mmol/L Potassium 3.6 (3.4-5.0) mmol/L Chloride 103 (98-107) mmol/L Carbon Dioxide 28 (22-30) mmol/L Anion Gap 9 (4-12) mmol/L BUN 9 (7-17) mg/dL Creatinine 0.89 (0.7-1.0) mg/dL Estim Creat Clear Calc 59 ml/min Estimated GFR > 60 (59 - ) Glucose 105 (65-110) mg/dL Calcium 9.3 (8.4-10.2) mg/dL Total Bilirubin 0.5 (0.2-1.3) mg/dL AST 21 (14-36) U/L ALT 21 (6-35) U/L Alkaline Phosphatase 118 (38-126) U/L Total Protein 8.0 (6.3-8.2) g/dL Albumin 4.7 (3.5-5.1) g/dL Imaging Data Radiologist's impression: Overnight read CT head: Brain: No hemorrhage, hydrocephalus, mass effect or herniation. CTA head: No acute occlusion, severe stenosis or aneurysm. CTA neck: No significant stenosis or dissection. Discharge Plan Discharge Clinical Impression: Facial bruising, Headache Patient Disposition: Home Condition: Stable Instructions: Antibiotic Form, Ecchymosis (ED) Additional Instructions: Head CT was negative for acute abnormality. Have close follow-up with your primary care physician. Patient Language: American Prescriptions: No Action aspirin 81 mg Tablet,Chewable 81 mg PO DAILY fluticasone propionate [Flonase Allergy Relief] 50 mcg/actuation spray,suspension 2 spray intranasal DAILY Qty: 18 3RF Rx Instructions: administer into each nostril Xarelto 20 mg tablet 20 mg PO DAILY folic acid 1 mg tablet 1 mg PO DAILY ergocalciferol (vitamin D2) 1,250 mcg (50,000 unit) capsule 1,250 mcg PO MONTHLY Rx Instructions: TAKE 1 CAPSULE BY MOUTH ONCE EVERY MONTH 15 th of the month Adult 50 Plus Probiotic 4 billion cell capsule 4,000 mmu cells PO DAILY Patient Comments: CURRENTLY OUT Rx Instructions: administer with a meal ferrous sulfate [Feosol] 325 mg (65 mg iron) tablet 325 mg PO DAILY ondansetron 4 mg tablet,disintegrating 4 mg PO Q8H PRN (Reason: nausea and vomiting) Qty: 90 0RF fluticasone propion-salmeterol [Advair HFA] 230-21 mcg/actuation HFA aerosol inhaler 2 puff inhalation BID Qty: 12 0RF Rx Instructions: administer with spacer albuterol sulfate [ProAir HFA] 90 mcg/actuation HFA aerosol inhaler 2 puff INHALATION Q6H PRN (Reason: Shortness Of Breath) Qty: 8.5 5RF cyclobenzaprine 10 mg tablet See Rx Instructions .ROUTE .COMPLEX Qty: 90 0RF Dose Instruction: Take 1 tablet by mouth three times daily as needed for muscle spasm Rx Instructions: Take 1 tablet by mouth three times daily as needed for muscle spasm nystatin 100,000 unit/gram cream 1 applic topical BID PRN (Reason: rash) Qty: 15 0RF atorvastatin 40 mg tablet 40 mg PO DAILY Qty: 90 1RF Rx Instructions: Take 1 tablet by mouth once daily benzonatate 200 mg capsule 200 mg PO TID PRN (Reason: cough) Qty: 30 1RF dicyclomine 20 mg tablet 20 mg PO TID PRN (Reason: abdominal pain) Qty: 90 5RF levothyroxine [Synthroid] 88 mcg tablet 88 mcg PO DAILY Qty: 90 1RF (DME) nebulizer and compressor Device See Rx Instructions .Route Qty: 1 0RF Rx Instructions: As directed (DME) nebulizer accessories Kit See Rx Instructions .Route Qty: 1 0RF Rx Instructions: As directed ipratropium-albuterol 0.5 mg-3 mg(2.5 mg base)/3 mL solution for nebulization 3 ml inhalation Q6H Qty: 90 0RF cholecalciferol (vitamin D3) [Vitamin D3] 25 mcg (1,000 unit) capsule 1,000 unit PO 3XW cyanocobalamin (vitamin B-12) [Vitamin B-12] 1,000 mcg tablet 1,000 mcg PO 3XW nebivolol 5 mg tablet See Rx Instructions .ROUTE .COMPLEX Qty: 90 2RF Dose Instruction: TAKE 1 TABLET BY MOUTH ONCE DAILY AT BEDTIME Rx Instructions: TAKE 1 TABLET BY MOUTH ONCE DAILY AT BEDTIME pantoprazole 20 mg tablet,delayed release (DR/EC) 20 mg PO DAILY Qty: 90 4RF Rx Instructions: TAKE 1 TABLET BY MOUTH ONCE DAILY IN THE MORNING albuterol sulfate 2.5 mg /3 mL (0.083 %) solution for nebulization 2.5 mg inhalation Q4-6H PRN (Reason: shortness of breath or wheezing) Qty: 180 1RF Rx Instructions: Please dispense 3 ml vials. alprazolam [Xanax] 0.5 mg tablet 0.5 mg PO BID PRN (Reason: anxiety) Qty: 60 0RF Follow-up/Referrals: Boris Mcnair DO [Primary Care Provider] -
[2025-01-17 21:56] LABS: Basophils Absolute Auto 0.1 K/mm3 (0.0-0.1); Basophils Percent Auto 0.6 % (0.2-1.2); Eosinophils Absolute Auto 0.3 K/mm3 (0-0.3); Eosinophils Percent Auto 2.9 % (0-4.4); Hematocrit 41.6 % (37.0-47.0); Hemoglobin 12.6 g/dL (12.0-15.0); Immature Granulocyte Absolute 0.03 K/mm3 (0.00-0.031); Immature Granulocyte Percent A 0.4 % (0-0.5); Lymphocytes Absolute Auto 2.46 K/mm3 (0.9-3.2); Lymphocytes Percent Auto 28.9 % (18.3-44.2); Mean Corpuscular HGB Conc 30.3 g/dl (32-36); Mean Corpuscular Hemoglobin 26.4 pg (26-34); Mean Platelet Volume 9.4 fl (7.4-10.4); Monocytes Absolute Auto 0.5 K/mm3 (0.1-0.6); Neutrophils Absolute Auto 5.2 K/mm3 (1.3-6.7); Neutrophils Percent Auto 61.2 % (45.5-73.1); Platelet Count Result 368 k/mm3 (150-375); Red Blood Count 4.78 M/mm3 (4.2-5.4); Red Cell Distribution Width 14.3 % (11.5-14.5); White Blood Count 8.5 K/mm3 (4.5-10.0)
[2025-01-17 22:05] LABS: Alanine Aminotransferase 21 U/L (6-35); Albumin Level 4.7 g/dL (3.5-5.1); Alkaline Phosphatase 118 U/L (38-126); Anion Gap 9 mmol/L (4-12); Aspartate Amino Transferase 21 U/L (14-36); Bilirubin,Total 0.5 mg/dL (0.2-1.3); Blood Urea Nitrogen 9 mg/dL (7-17); Calcium 9.3 mg/dL (8.4-10.2); Carbon Dioxide 28 mmol/L (22-30); Chloride 103 mmol/L (98-107); Estimated CRCL calculation 59 ml/min; Estimated Glomerular Filt Rate > 60; Glucose 105 mg/dL (65-110); Potassium 3.6 mmol/L (3.4-5.0); Sodium 140 mmol/L (137-145)
[2025-01-17 22:07] LABS: INR 0.9; Prothrombin Time 12.7 Seconds (11.1-14.7)
[2025-01-17 22:08] LABS: Partial Thromboplastin Time 29.3 Seconds (22.3-36.8)
[2025-01-17 23:15] VITALS: BP 133/79; PULSE 93; RESP 18; O2SAT 99
[2025-01-18 00:24] VITALS: BP 118/74; PULSE 97; RESP 18; O2SAT 100
== END 2025-01-18 00:24 | disposition home or self-care (01) ==
PROVIDERS: Emergency Provider Emergency Medicine; PCP Internal Medicine
DX: S00.83XA Contusion of other part of head, initial encounter (principal); R51.9 Headache, unspecified; E03.9 Hypothyroidism, unspecified; E78.5 Hyperlipidemia, unspecified; I25.10 Atherosclerotic heart disease of native coronary artery without angina pectoris; J44.9 Chronic obstructive pulmonary disease, unspecified; Z87.891 Personal history of nicotine dependence; Z86.73 Personal history of transient ischemic attack (TIA), and cerebral infarction without residual deficits; Z79.01 Long term (current) use of anticoagulants; Z79.82 Long term (current) use of aspirin; X58.XXXA Exposure to other specified factors, initial encounter
CPT/HCPCS: 36415; 70496; 70498; 80053; 85025; 85610; 85730; 99284; Q9967

== ENCOUNTER 2025-01-18 14:24 | Outpatient (CLI) | payer MEDICARE, MEDICAID, SELFPAY ==
[2025-01-18 14:52] LABS: Alanine Aminotransferase 20 U/L (6-35); Albumin Level 4.4 g/dL (3.5-5.1); Alkaline Phosphatase 117 U/L (38-126); Anion Gap 9 mmol/L (4-12); Aspartate Amino Transferase 20 U/L (14-36); Bilirubin,Total 0.4 mg/dL (0.2-1.3); Blood Urea Nitrogen 8 mg/dL (7-17); Calcium 9.2 mg/dL (8.4-10.2); Carbon Dioxide 24 mmol/L (22-30); Chloride 108 mmol/L (98-107); Cholesterol 180 mg/dL (0-200); Estimated Glomerular Filt Rate 53; Glucose 92 mg/dL (65-110); HDL Direct 56 mg/dL; Potassium 3.8 mmol/L (3.4-5.0); Sodium 141 mmol/L (137-145); Triglycerides 141 mg/dL (<150)
--- OUTSIDE RECORDS SUMMARY | 2025-01-18 15:00 | XMS_ITS | Encounter Summary ---
Author Organization [facility] [address] Address [address] [place] [address] Care Team Providers Care Sales And Catering Coordinator Name Role Phone Eris Vu MD Primary Care Provider [phone] Reason for Visit * Reason Comments Med Refill Encounter Details Date Type Department Care Team ([facility] Contact Info) Description 01/16/2025 Refill [facility] Oncology and Hematology [facility] [address] [place] [address] Chris Owens MD [facility] [address] [place] [id number] Social History Tobacco Use Types Packs/Day Years Used Date Smoking Tobacco: Former Cigarettes 1 38 Q uit: 03/16/2024 Smokeless Tobacco: Never Alcohol Use Standard Drinks/Week Comments No 0 (1 standard drink = 0.6 oz pur e alcohol) Comments No Sex and Gender Information Value Date Recorded Sex Assigned at Not on file 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 Gender Identity Not on file Sexual Orientation Not on file documented as of this encounter Plan of Treatment Upcoming Encounters Date Type Department Care Team (Late Contact Info) Description 06/07/2025 1:00 PM CDT Office Visit [facility] Oncology [facility] Hematology [facility] [address] [place] [address] Chris Owens MD [facility] [address] [place] [id number] documented as of this encounter Visit Diagnoses Not on filedocumented in this encounter Care Teams Sales And Catering Coordinator Relationship Specialty Start Date End Date Eris Vu MD PCP - General Family Practice 02/21/23 documented as of this encounter
--- OUTSIDE RECORDS SUMMARY | 2025-01-18 15:00 | XMS_ITS | CONTINUITY OF CARE DOCUMENT ---
Author Name keke davies Address Unknown Organization [facility] Address [address] [place] [address] Phone [phone] Care Team Providers Care French Professor Name Role Phone Vin Tay MD Unavailable INSURANCE PROVIDERS Payer name Policy type / Coverage type [place] red republican ID [id number] PAY [id number]
--- OUTSIDE RECORDS SUMMARY | 2025-01-18 15:00 | XMS_ITS | Clinical Summary ---
Author Organization [facility] [employer] Address [address] [place] [address] Care Team Providers Care Refinery Operator Helper Crude Unit Name Role Phone Boris Mcnair DO Primary Care Provider [phone] Source Comments [facility],non-owned Affiliates and Associated Physician Practices is amultiple site organization consisting of ambulatory clinics and hospital sitesin [place], [place], [place] and [place]. This disclosure is being madepursuant to the Care Everywhere program and may not contain all information available regarding this patient. 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 Gender Identity Not on file Sexual Orientation [...] 1:22 PM CDT [facility] Creatinine 1.0 0.6 - [...] DO LAB - CHEMISTRY [place] [address], [facility] [phone] from Last 3 Months or Most Recently Relevant to Health Maintenance Insurance MEDICARE [facility] MANAGED MEDICARE ADV [facility] MANAGED MEDICARE ADV [place] SELF PAY NO INSURANCE Member Subscriber Plan / Payer (Ef fective for All Dates) Name:Gege Gutierres Member ID:Not on file Relation to Subscriber:Not on file Name:GEGE GUTIERRES Subscriber ID:Not on file (Home) Address: [address] [place] [address] Payer ID:Not on file Group ID:Not on file Type:Self Pay Address: [place], [place] MEDICARE MEDICAID - OUT OF STATE [facility] MANAGED MEDICARE ADV [facility] MANAGED MEDICARE ADV [place] [facility] MANAGED MEDICARE ADV MEDICAID [place] [address] [place] [address] [facility] MANAGED MEDICARE ADV [place]ICA[place] [facility] MANAGED MEDICARE ADV Advance Directives * Full Code (Latest Code Status on File) Date Activated Date Inactivated Comments 02/15/2018 8:10 AM 02/15/2018 12:04 PM * Full Code Date Activated Date Inactivated Comments 02/14/2018 7:57 AM 02/14/2018 6:16 PM Care Teams Refinery Operator Helper Crude Unit Relationship Specialty Start Date End Date Boris Mcnair DO [address] [place] [address] [facility] - General 04/07/19
--- OUTSIDE RECORDS SUMMARY | 2025-01-18 15:00 | XMS_ITS | Clinical Summary ---
Author Organization [facility] Address [address] [place] [address] Care Team Providers Care Plant Utility Person Name Role Phone Eris Vu MD Primary Care Provider [phone] Allergies Active Allergy Reactions Criticality Noted Date Comments Adhesive Tape-Silicones Other (See Comments) Medium 08/19/2014 Blisters Codeine Shortness of Breath/Wheezing High 08/19/2014 Jpxyorazh-H-Zemjtas-Se jun-Brom Other (See Comments) Low 08/19/2014 Alcohol- [...] tablet by mouth once daily 90 Tablet 5 Active folic acid (FOLVITE) 1 mg tablet Take 1 tablet by mouth once daily 30 Tablet 5 01/19/20 25 Discontinued Active Problems Problem Noted Date Diagnosed Date 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 01/06/2020 Diverticulitis 03/24/2018 Secondary hypercoagulable state 11/15/2017 Tobacco use 11/15/2017 Encounters Date Type Department Care Team Description 01/16/2025 Refill [facility] Oncology and Hematology - [address] [place] [address] Chris Owens MD 12/18/2024 Orders Only [facility] Oncology and Hematology - [address] [place] [address] Chris Owens MD 12/15/2024 External Device Data STL ABSTRACTION Provider, Abstract 12/10/2024 Refill [facility] Oncology and Hematology - [address] [place] [address] Chris Owens MD 12/04/2024 11:30 AM CDT Office Visit [facility] Oncology and Hematology - [address]ie[address] [place] [address] Chris Owens MD Chronic anemia (Primary Dx); Visit for screening mammogram 12/04/2024 Orders Only [facility] Oncology and Hematology - [address] [place] [address] Chris Owens MD 12/02/2024 External Device Data STL ABSTRACTION Provider, Abstract 11/29/2024 Refill [facility] Oncology and Hematology - [address] [place] [address] Chris Owens MD 11/25/2024 External Device Data STL ABSTRACTION Provider, Abstract 11/25/2024 Refill [facility] Oncology and Hematology - [address] [place] [address] Chris Owens MD 11/24/2024 External Device Data STL ABSTRACTION Provider, Abstract 11/23/2024 External Device Data STL ABSTRACTION Provider, Abstract 11/21/2024 External Device Data STL ABSTRACTION Provider, Abstract 11/20/2024 External Device Data STL ABSTRACTION Provider, Abstract 11/18/2024 External Device Data STL ABSTRACTION Provider, Abstract 11/13/2024 Refill [facility] Oncology and Hematology - [address] [place] [address] Chris Owens MD 11/04/2024 External Device Data STL ABSTRACTION Provider, Abstract 11/02/2024 Refill [facility] Oncology and Hematology [address] [place] [address] Chris Owens MD from Last 3 Months [...] on file 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 Gender Identity Not on file Sexual [...] Description 06/07/2025 1:00 PM CDT Office Visit [facility] Oncology and Hematology [facility] [address] [facility] [address] [place] [address] Chris Owens MD [address] [facility] [address] [place] [address] Health Maintenance Due Date Last Done Comments Pre-Diabetes and Diabetes Screening 1961 DTAP/TDAP/TD VACCINES (1 - Tdap) 1980 FIT-DNA Q 3 years 2006 FIT/FOBT Q 1 year 2006 Flex Sig/CT Colonography Q 5 years 2006 ZOSTER VACCINE (1 of 2) 2011 Lung Cancer Screening 07/15/2020 07/15/2019 INFLUENZA VACCINE (#1) 2024 Medicare [place]vantage ([place]) Preventative Visit/Annual Wellness Visit 09/16/2024 BREAST CANCER SCREENING 12/17/2025 12/18/19 25, 02/17/2024, [...] Most Recently Relevant to [place] [address] [facility] [place] [id number] Care Teams Plant Utility Person Relationship Specialty Start Date End Date Eris Vu MD PCP - General Family Practice 6/8/23
--- OUTSIDE RECORDS SUMMARY | 2025-01-18 15:00 | XMS_ITS | Continuity of Care Document ---
Author Organization [facility] Address [address] [place] [address] Phone Care Team Providers Care Music Video Director Name Role Phone Unavailable Unavailable Unavailable Advance Directives Directive Yes / No Effective Date File Name No Information Encounters Encounter Description Practice Location Reason(s) For Visit Diagnoses Date Provider Providers Copied on Encounter [facility], [address], [place], [place], [id number], [place] tel:[phone] [address] [facility] No Information Mar-1 6-200 0 No Information [...]
--- OUTSIDE RECORDS SUMMARY | 2025-01-18 15:00 | XMS_ITS | Clinical Summary ---
Author Organization [facility] Address [address] [place] [address] Care Team Providers Care Manager Management Name Role Phone Eris Vu MD Primary Care Provider [phone] Allergies Active Allergy Reactions Criticality Noted Date [...] this topic Medical Devices Implanted Type Area Orthotist Or Prosthetist Device Identifier Shelf Expiration Date Model / Serial / Lot Tecnis 1-Piece Iol Implanted:Qty: 1 on 06/08/2024 by Jadon Vu MD at [facility] Left: Eye [employer] 10/27/2026 / [id number] / Insurance [id number] MEDICAID Care Teams Manager Management Relationship Specialty Start Date End Date Eris Vu MD [address] [place] [address] PCP - General FAMILY PRACTICE 06/05/24
[2025-01-18 15:03] LABS: LDL Cholesterol Direct 80 mg/dL
[2025-01-18 15:38] LABS: Free T4 Free Thyroxine 1.42 ng/dL (0.78-2.19); Vitamin D 25 Hydroxy 21.3 ng/mL
== END 2025-01-18 14:25 | disposition home or self-care (01) ==
LOC: ANHLAB 14:25
PROVIDERS: PCP Internal Medicine; Visit Provider Nurse Practitioner
DX: E03.9 Hypothyroidism, unspecified (principal); E78.5 Hyperlipidemia, unspecified; E55.9 Vitamin D deficiency, unspecified
CPT/HCPCS: 36415; 80053; 80061; 82306; 84439; 84443

== ENCOUNTER 2025-03-06 20:16 | Emergency (ER) | payer MEDICARE, MEDICAID, SELFPAY ==
[2025-03-06 20:18] VITALS: BP 145/74; PULSE 103; RESP 20; TEMP 36.9; O2SAT 99
== END 2025-03-06 22:33 | disposition left against medical advice (07) ==
LOC: ANHED 21:36
PROVIDERS: PCP Internal Medicine
DX: R22.2 Localized swelling, mass and lump, trunk (principal)
CPT/HCPCS: 99199

== ENCOUNTER 2025-03-07 15:16 | Inpatient (IN) | payer MEDICARE, MEDICAID, SELFPAY ==
--- NOTE | ~2025-03-07 | US_ITS ---
US soft tissue groin RT Ordering provider: Antonia Parish PA-C History: . abscess vs cellulitis . Technique: Ultrasound images obtained for the area of concern in t he pubic area. Comparison: None. FINDINGS: Irregular hypoechoic area is seen measuring 0.7 x 0.7 x 0.6 cm which may be an area of infection with a small collection. Further evaluation advised. Reviewed, dictated and finalized at location A.
[2025-03-07 15:25] VITALS: BP 128/62; PULSE 94; RESP 18; TEMP 36.5; O2SAT 97
[2025-03-07 15:34] VITALS: BP 117/52; PULSE 75; RESP 16; TEMP 36.4; O2SAT 98
--- NOTE | 2025-03-07 15:44 | ED.SKABFB ---
HPI - Skin/Abscess/Foreign Bdy General Chief complaint: Skin/Abscess/Foreign Body Stated complaint: boil to groin Time Seen by Provider: 03/07/25 15:31 Source: patient Mode of arrival: ambulatory Limitations: no limitations History of Present Illness HPI narrative: This is a 64 year old female that presents to the ER for pain and swelling to the right groin. Reports she has been taking Bactrim for the last 2 days without relief. Denies fevers, drainage. Related Data Home Medications ?Medication ?Instructions ?Recorded ?Confirmed ?Last Taken ?Type rivaroxaban 20 mg tablet (Xarelto) 20 mg PO DAILY 07/29/19 01/13/25 10/16/24 History folic acid 1 mg tablet 1 mg PO DAILY 08/04/19 01/13/25 10/18/24 History aspirin 81 mg chewable tablet 81 mg PO DAILY 10/06/22 01/13/25 10/18/24 History ergocalciferol (vitamin D2) 1,250 1,250 mcg PO MONTHLY 03/24/24 01/13/25 10/16/24 History mcg (50,000 unit) capsule ferrous sulfate 325 mg (65 mg 325 mg PO DAILY 03/24/24 01/13/25 10/14/24 History iron) tablet (Feosol) lactobacillus combination no.9 4 4,000 mmu cells PO DAILY 03/24/24 01/13/25 10/16/24 History billion cell capsule (Adult 50 Plus Probiotic) cholecalciferol (vitamin D3) 25 1,000 unit PO 3XW 10/13/24 01/13/25 10/16/24 History mcg (1,000 unit) capsule (Vitamin D3) cyanocobalamin (vitamin B-12) 1,000 mcg PO 3XW 10/13/24 01/13/25 10/16/24 History 1,000 mcg tablet (Vitamin B-12) Allergies Allergy/AdvReac Type Severity Reaction Status Date / Time codeine Allergy Severe Anaphylaxis Verified 03/07/25 15:24 hydromorphone Allergy Severe Blister Verified 03/07/25 15:24 latex Allergy Severe Blister Verified 03/07/25 15:24 levofloxacin Allergy Severe BLISTERS Verified 03/07/25 15:24 ON BODY morphine Allergy Severe Hypotension Verified 03/07/25 15:24 oxycodone Allergy Severe Blister Verified 03/07/25 15:24 penicillin G Allergy Severe ANAPHYLACTI Verified 03/07/25 15:24 C Penicillins Allergy Severe Anaphylaxis Verified 03/07/25 15:24 shellfish derived Allergy Severe Swelling Verified 03/07/25 15:24 of Lip/Tongue/Throat vancomycin Allergy Severe Red Pablito, Verified 03/07/25 15:24 Patient unsure of reaction hydrocodone Allergy Intermediate Itching Verified 03/07/25 15:24 dexamethasone (From Maxitrol) Allergy Swelling Verified 03/07/25 15:24 of the Eye metoprolol Allergy Other Verified 03/07/25 15:24 neomycin (From Maxitrol) Allergy Swelling Verified 03/07/25 15:24 of the Eye polymyxin B (From Maxitrol) Allergy Swelling Verified 03/07/25 15:24 of the Eye Review of Systems Review of Systems: All systems reviewed & are unremarkable except as noted in HPI and below PMFSH Past Medical History Medical History Non-specific colitis History of colitis Hypothyroidism Hyperlipidemia Carotid artery disease Status post left carotid endarterectomy. Symptomatic PVCs On metoprolol 50 milligrams daily. Hx of deep venous thrombosis Current use of layout inspector anticoagulation Dysphagia History of diverticulitis of colon Adenomatous colon polyp Colon, diverticulosis Lymphocytic colitis GERD (gastroesophageal reflux disease) CVA (cerebral vascular accident) With short-term memory loss. Positive colorectal cancer screening using Cologuard test History of cervical cancer S/p partial hysterectomy Fibromyalgia COVID-19 (01/2022) Tobacco abuse COPD (chronic obstructive pulmonary disease) On layout inspector drug therapy Recurrent falls Colon cancer screening History of colon polyps Otitis media Hypersomnia Low hemoglobin Vertigo Osteoarthritis Diverticulosis With history of diverticulitis. Personal history of nicotine dependence Vitamin B12 deficiency Vitamin D deficiency Surgical History Surgical History Status post cholecystectomy Status post tonsillectomy S/P medial meniscectomy of left knee (09/2021) History of shoulder surgery History of neck surgery Hx of total knee arthroplasty Right History of arthroplasty of right knee History of left-sided carotid endarterectomy Status post cervical spinal fusion Status post right rotator cuff repair Status post tubal ligation Status post left breast biopsy Status post partial hysterectomy For cervical cancer. Family History Family History Mother Depression Family history of diabetes mellitus in first degree relative Diabetes mellitus Father Family history of diabetes mellitus in first degree relative Acute myocardial infarction Diabetes mellitus Sibling Hepatitis Pulmonary embolism Sibling No problems noted. Other Family history of allergic disorder Family history of cardiovascular disease Family history of malignant neoplasm Hypertension Social History Social History Social History: The patient is . She lives with her son in [place]. She designates her sons, Laith Howard and Kemal Islas, as her surrogate decision makers and she wishes to be a full code. She has smoked at least 1 pack of cigarettes per day for almost 40 years. She denies alcohol and drug abuse. Smoking packs per day: 1 Smoking cigarettes per day: 20.0 Years smoked: 40 Smoking pack-years: 40.00 Smoking status: Former smoker Second hand tobacco smoke exposure: Yes Alcohol intake: never Alcohol use details: reaction to ETOH Substance use: never Substance use type: does not use Do You Feel Safe in your Home?: Yes Lack of Transportation: No Lack of Food: Never True Current Housing: I Have Housing Concerned About Future Housing: No Difficulty Paying Gas/Electric Bills: No Difficulty Paying for Meds: No Currently Unemployed: No Education: High School Diploma/GED Difficulty w/ Childcare or Family Care: No Living arrangements: with family Occupation/Education: retired 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 HEAD: Normocephalic, atraumatic. EYES: EOMI. EXTREMITIES: Normal range of motion. No edema. SKIN: Warm, dry, no rash. NEURO: No focal deficits. Alert and oriented x3. PSYCH: Normal mood and affect FEMALE GENITAL: Right labia majora with moderate area of erythema and edema Course Course Emergency Course: Patient updated on her workup and recommendation for admission Consultations Consultation #1: Spoke with hospitalist about patient and workup who accepts admission Date: 03/07/25 Vital Signs Vital signs: Vital Signs Temperature 97.7 F 03/07/25 15:25 Pulse Rate 94 03/07/25 15:25 Respiratory Rate 18 03/07/25 15:25 Blood Pressure 128/62 03/07/25 15:25 Pulse Oximetry 97 03/07/25 15:25 Oxygen Delivery Room Air 03/07/25 15:25 Temperature 98.1 F 03/07/25 18:45 Pulse Rate 65 03/07/25 19:07 Respiratory Rate 16 03/07/25 19:07 Blood Pressure 119/59 L 03/07/25 19:07 Pulse Oximetry 98 03/07/25 19:07 Oxygen Delivery Room Air 03/07/25 15:34 Procedures Abscess I/D other: Date of Incision: 03/07/25 Time of Incision: 19:32 Side (if applicable): right Local Anesthetic: lidocaine 1% and with epi Amount of anesthesia used (mL): 2 Technique: incised with #11 blade Irrigation: Yes Packing used?: iodoform I&D Results: Pus and Blood MDM - Skin/Abscess/Foreign Bdy MDM Narrative Medical decision making narrative: Patient presents the emergency department for redness on the labia. She is afebrile nontoxic appearing. Her vitals are stable. Cbc without leukocytosis. ESR is elevated. CRP is not elevated. Metabolic panel with mild elevation in creatinine, patient hydrated with IV fluids in the ED. Blood cultures obtained, patient started on IV antibiotics. Ultrasound showing a small abscess, this was successfully drained. Wound culture sent. Patient will be started on IV antibiotics and admitted for further management. Spoke with hospitalist about patient and workup who accepts admission Differential Diagnosis Differential diagnosis: Likely abscess of skin or subcutaneous tissue and cellulitis Lab Data Attestation: I reviewed the patient's lab results. 03/07/25 15:52 03/07/25 15:52 Labs: Lab Results 03/07/25 Range/Units 15:52 WBC 8.3 (4.5-10.0) K/mm3 RBC 4.35 (4.2-5.4) M/mm3 Hgb 11.5 L (12.0-15.0) g/dL Hct 36.6 L (37.0-47.0) % MCV 84.1 (80-100) fl MCH 26.4 (26-34) pg MCHC 31.4 L (32-36) g/dl RDW 13.4 (11.5-14.5) % Plt Count 296 (150-375) k/mm3 MPV 9.4 (7.4-10.4) fl Immature Gran % (Auto) 0.2 (0-0.5) % Neut % (Auto) 70.9 (45.5-73.1) % Lymph % (Auto) 18.5 (18.3-44.2) % Henry % (Auto) 7.4 (2.6-8.5) % Eos % (Auto) 2.6 (0-4.4) % Baso % (Auto) 0.4 (0.2-1.2) % Lymph # (Auto) 1.54 (0.9-3.2) K/mm3 Henry # (Auto) 0.6 (0.1-0.6) K/mm3 Eos # (Auto) 0.2 (0-0.3) K/mm3 Baso # (Auto) 0.0 (0.0-0.1) K/mm3 Abs Immat Gran (auto) 0.02 (0.00-0.031) K/mm3 Absolute Neuts (auto) 5.9 (1.3-6.7) K/mm3 Absolute Nucleated RBC 0.000 (0.0-0.012) K/mm3 Nucleated RBC % 0.0 (0.0-0.2) % ESR 63 H (0-20) mm/hr Sodium 138 (137-145) mmol/L Potassium 3.5 (3.4-5.0) mmol/L Chloride 107 (98-107) mmol/L Carbon Dioxide 23 (22-30) mmol/L Anion Gap 8 (4-12) mmol/L BUN 5 L (7-17) mg/dL Creatinine 1.13 H (0.7-1.0) mg/dL Estim Creat Clear Calc 48 ml/min Estimated GFR 49 L (59 - ) Glucose 111 H (65-110) mg/dL Calcium 9.2 (8.4-10.2) mg/dL C-Reactive Protein 1.1 (<1.0) mg/dL Imaging Data Radiologist's impression: US soft tissue groin RT Ordering provider: Antonia L. Parish, PA-C History: . abscess vs cellulitis . Technique: Ultrasound images obtained for the area of concern in the pubic area. Comparison: None. FINDINGS: Irregular hypoechoic area is seen measuring 0.7 x 0.7 x 0.6 cm which may be an area of infection with a small collection. Further evaluation advised. Critical Care Time Critical Care Time Critical Care Time: No Discharge Plan Discharge Clinical Impression: Abscess of labia Patient Disposition: Still a Patient Condition: Stable
[2025-03-07] MEDS: ACETAMINOPHEN 500 MG TABLET 1000 MG PO (15:45)
[2025-03-07 15:58] LABS: Basophils Percent Auto 0.4 % (0.2-1.2); Eosinophils Absolute Auto 0.2 K/mm3 (0-0.3); Eosinophils Percent Auto 2.6 % (0-4.4); Hematocrit 36.6 % (37.0-47.0); Hemoglobin 11.5 g/dL (12.0-15.0); Immature Granulocyte Absolute 0.02 K/mm3 (0.00-0.031); Immature Granulocyte Percent A 0.2 % (0-0.5); Lymphocytes Absolute Auto 1.54 K/mm3 (0.9-3.2); Lymphocytes Percent Auto 18.5 % (18.3-44.2); Mean Corpuscular HGB Conc 31.4 g/dl (32-36); Mean Corpuscular Hemoglobin 26.4 pg (26-34); Mean Corpuscular Volume 84.1 fl (80-100); Mean Platelet Volume 9.4 fl (7.4-10.4); Monocytes Absolute Auto 0.6 K/mm3 (0.1-0.6); Monocytes Percent Auto 7.4 % (2.6-8.5); Neutrophils Absolute Auto 5.9 K/mm3 (1.3-6.7); Neutrophils Percent Auto 70.9 % (45.5-73.1); Platelet Count Result 296 k/mm3 (150-375); Red Blood Count 4.35 M/mm3 (4.2-5.4); Red Cell Distribution Width 13.4 % (11.5-14.5); White Blood Count 8.3 K/mm3 (4.5-10.0)
[2025-03-07 16:12] LABS: Anion Gap 8 mmol/L (4-12); Blood Urea Nitrogen 5 mg/dL (7-17); CRP. 1.1 mg/dL (<1.0); Calcium 9.2 mg/dL (8.4-10.2); Carbon Dioxide 23 mmol/L (22-30); Chloride 107 mmol/L (98-107); Estimated CRCL calculation 48 ml/min; Estimated Glomerular Filt Rate 49; Glucose 111 mg/dL (65-110); Potassium 3.5 mmol/L (3.4-5.0); Sodium 138 mmol/L (137-145)
[2025-03-07] MEDS: SODIUM CHLORIDE 0.9% IV 1,000 ML 999 ML IV CONT (16:23)
[2025-03-07 16:30] LABS: Erythrocyte Sedimentation Rate 63 mm/hr (0-20)
[2025-03-07] MEDS: KETOROLAC 15 MG/ML VIAL (*BKC) IV PUSH (18:09)
--- NOTE | 2025-03-07 18:28 | PM.IMHP ---
H&P: HPI History of Present Illness Date/Time: 03/07/25 18:28 Chief Complaint: Wound/Boil Narrative: 64 y/o F with PMH of hypothyroidism, hyperlipidemia, carotid artery disease s/p endarterectomy, GERD, CVA, fibromyalgia, cervical cancer s/p partial hysterectomy, DVT, and COPD presents here with wound. The patient presents here from home on 03/07 for further evaluation of possible boil near her right groin region. She reports the area is painful, swollen, and red. She initially noted the change on Saturday, she contacted her PCP who started her on Bactrim. She reports she has been on Bactrim BID for the past 2 days and has taken 5 doses. Despite antibiotic compliance, she reports the area has continued to worsen prompting her to seek evaluation today. She denies accompanying fever, chills, body aches, or drainage from wound. History of one similar wound to her buttocks but it was able to be I&D'd and uncomplicated. Initial VS at presentation: 97.7? F, HR 94, RR 18, 128/62, and 97% on RA. ED workup showed: No leukocytosis, hemoglobin 11.5, no significant electrolyte derangements, creatinine 1.13 and GFR 49, glucose 111, CRP 1.1, and ESR 63. Soft tissue ultrasound of right groin showed an irregular hypoechoic area measuring 0.7 x 0.7 x 0.6 cm which may be an area of infection with a small collection. Review of Systems Review of Systems: All systems reviewed & are unremarkable except as noted in HPI and below PMFSH Past Medical History Medical History Non-specific colitis History of colitis Hypothyroidism Hyperlipidemia Carotid artery disease Status post left carotid endarterectomy. Symptomatic PVCs On metoprolol 50 milligrams daily. Hx of deep venous thrombosis Current use of terminal supervisor anticoagulation Dysphagia History of diverticulitis of colon Adenomatous colon polyp Colon, diverticulosis Lymphocytic colitis GERD (gastroesophageal reflux disease) CVA (cerebral vascular accident) With short-term memory loss. Positive colorectal cancer screening using Cologuard test History of cervical cancer S/p partial hysterectomy Fibromyalgia COVID-19 (01/2022) Tobacco abuse COPD (chronic obstructive pulmonary disease) On terminal supervisor drug therapy Recurrent falls Colon cancer screening History of colon polyps Otitis media Hypersomnia Low hemoglobin Vertigo Osteoarthritis Diverticulosis With history of diverticulitis. Personal history of nicotine dependence Vitamin B12 deficiency Vitamin D deficiency Surgical History Surgical History Status post cholecystectomy Status post tonsillectomy S/P medial meniscectomy of left knee (09/2021) History of shoulder surgery History of neck surgery Hx of total knee arthroplasty Right History of arthroplasty of right knee History of left-sided carotid endarterectomy Status post cervical spinal fusion Status post right rotator cuff repair Status post tubal ligation Status post left breast biopsy Status post partial hysterectomy For cervical cancer. Family History Family History Mother Depression Family history of diabetes mellitus in first degree relative Diabetes mellitus Father Family history of diabetes mellitus in first degree relative Acute myocardial infarction Diabetes mellitus Sibling Hepatitis Pulmonary embolism Sibling No problems noted. Other Family history of allergic disorder Family history of cardiovascular disease Family history of malignant neoplasm Hypertension Social History Social History Social History: The patient is . She lives with her son in [place]. She designates her sons, Laith Howard and Kemal Islas, as her surrogate decision makers and she wishes to be a full code. She has smoked at least 1 pack of cigarettes per day for almost 40 years. She denies alcohol and drug abuse. Smoking packs per day: 1 Smoking cigarettes per day: 20.0 Years smoked: 40 Smoking pack-years: 40.00 Smoking status: Former smoker Second hand tobacco smoke exposure: Yes Alcohol intake: never Alcohol use details: reaction to ETOH Substance use: never Substance use type: does not use Do You Feel Safe in your Home?: Yes Lack of Transportation: No Lack of Food: Never True Current Housing: I Have Housing Concerned About Future Housing: No Difficulty Paying Gas/Electric Bills: No Difficulty Paying for Meds: No Currently Unemployed: No Education: High School Diploma/GED Difficulty w/ Childcare or Family Care: No Living arrangements: with family Occupation/Education: retired Additional occupation/education comments: [employer] Gender identity (if verbalized by the patient): Female Sexual Orientation (if Verbalized by the Patient): Straight or Heterosexual Spiritual care concerns: No Agree to blood products: Yes Meds Home Medications and Allergies Home Medications ?Medication ?Instructions ?Recorded ?Confirmed ?Type rivaroxaban 20 mg tablet (Xarelto) 20 mg PO DAILY 07/29/19 03/07/25 History folic acid 1 mg tablet 1 mg PO DAILY 08/04/19 03/07/25 History aspirin 81 mg chewable tablet 81 mg PO DAILY 10/06/22 03/07/25 History ergocalciferol (vitamin D2) 1,250 1,250 mcg PO MONTHLY 03/24/24 03/07/25 History mcg (50,000 unit) capsule ferrous sulfate 325 mg (65 mg 325 mg PO DAILY 03/24/24 03/07/25 History iron) tablet (Feosol) lactobacillus combination no.9 4 4,000 mmu cells PO DAILY 03/24/24 03/07/25 History billion cell capsule (Adult 50 Plus Probiotic) fluticasone propionate 50 2 spray intranasal DAILY #18 mL 05/05/24 03/07/25 Rx mcg/actuation nasal spray,suspension (Flonase Allergy Relief) cholecalciferol (vitamin D3) 25 1,000 unit PO DAILY 10/13/24 03/07/25 History mcg (1,000 unit) capsule (Vitamin D3) cyanocobalamin (vitamin B-12) 1,000 mcg PO DAILY 10/13/24 03/07/25 History 1,000 mcg tablet (Vitamin B-12) pantoprazole 20 mg tablet,delayed 20 mg PO DAILY #90 tabs 10/22/24 03/07/25 Rx release ondansetron 4 mg disintegrating 4 mg PO Q8H PRN nausea and 11/04/24 03/07/25 Rx tablet vomiting #90 tabs atorvastatin 40 mg tablet 40 mg PO DAILY #90 tabs 11/05/24 03/07/25 Rx cyclobenzaprine 10 mg tablet See Rx Instructions .Route 11/05/24 03/07/25 Rx .COMPLEX #90 tabs fluticasone propionate 230 2 puff inhalation BID #12 grams 11/05/24 03/07/25 Rx mcg-salmeterol 21 mcg/actuation HFA inhaler (Advair HFA) nystatin 100,000 unit/gram topical 1 applic topical BID PRN rash #15 11/05/24 03/07/25 Rx cream grams levothyroxine 88 mcg tablet 88 mcg PO DAILY #90 tabs 11/25/24 03/07/25 Rx (Synthroid) nebulizer accessories #1 ea 11/25/24 03/07/25 Rx nebulizer and compressor #1 ea 11/25/24 03/07/25 Rx albuterol sulfate 2.5 mg/3 mL 2.5 mg (3 mL) inhalation Q4-6H PRN 12/10/24 03/07/25 Rx (0.083 %) solution for nebulization shortness of breath or wheezing #180 mL dicyclomine 20 mg tablet 20 mg PO TID PRN abdominal pain 01/04/25 03/07/25 Rx #90 tabs alprazolam 0.5 mg tablet (Xanax) 0.5 mg PO BID PRN anxiety #60 tabs 02/09/25 03/07/25 Rx nebivolol 5 mg tablet See Rx Instructions .Route 02/09/25 03/07/25 Rx .COMPLEX #90 tabs sulfamethoxazole 800 1 tablet PO Q12H #14 tabs 03/05/25 03/07/25 Rx mg-trimethoprim 160 mg tablet (Bactrim DS) Allergies Allergy/AdvReac Type Severity Reaction Status Date / Time codeine Allergy Severe Anaphylaxis Verified 03/07/25 15:24 hydromorphone Allergy Severe Blister Verified 03/07/25 15:24 latex Allergy Severe Blister Verified 03/07/25 15:24 levofloxacin Allergy Severe BLISTERS Verified 03/07/25 15:24 ON BODY morphine Allergy Severe Hypotension Verified 03/07/25 15:24 oxycodone Allergy Severe Blister Verified 03/07/25 15:24 penicillin G Allergy Severe ANAPHYLACTI Verified 03/07/25 15:24 C Penicillins Allergy Severe Anaphylaxis Verified 03/07/25 15:24 shellfish derived Allergy Severe Swelling Verified 03/07/25 15:24 of Lip/Tongue/Throat vancomycin Allergy Severe Red [place], Verified 03/07/25 15:24 Patient unsure of reaction hydrocodone Allergy Intermediate Itching Verified 03/07/25 15:24 dexamethasone (From Maxitrol) Allergy Swelling Verified 03/07/25 15:24 of the Eye metoprolol Allergy Other Verified 03/07/25 15:24 neomycin (From Maxitrol) Allergy Swelling Verified 03/07/25 15:24 of the Eye polymyxin B (From Maxitrol) Allergy Swelling Verified 03/07/25 15:24 of the Eye Vital Signs Vital Signs - 24 hr 03/07/25 15:25 03/07/25 15:34 Temperature 97.7 F 97.5 F L Pulse Rate 94 75 Respiratory Rate 18 16 Blood Pressure 128/62 117/52 L Pulse Oximetry 97 98 Oxygen Delivery Room Air Room Air Exam Const: General: comfortable and no acute distress Other: , female, nontoxic appearance HENMT: Face/Nose/Sinus: Normal nares present Mouth: Yes moist mucous membranes Eyes: General: appearance normal, both eyes and all related structures Sclera: sclerae normal Pupils: Equal, round and reactive pupils present EOM: EOMs intact bilaterally Resp: Effort & Inspection: normal respiratory effort Auscultation: clear to auscultation bilaterally Cardio: Rate: regular rate Rhythm: regular rhythm Other: S1-S2 present without murmur, rub, ectopy GI: Other: Abdomen soft, nondistended, nontender. Normoactive bowel sounds in all quadrants. Skin: General skin exam: normal color and no rashes or lesions noted Wounds: wounds noted Other: 4x5 cm of induration to the right mons pubis with surrounding erythema that extends to the right groin and across the mons and to the right labia. packing to I&D site. Neuro: Speech: normal speech Motor exam (neuro): 5/5 motor strength present throughout Sensory Exam: normal sensation Other: A&O x4 Extrem: General: normal to inspection Psych: Mental Status: mental status grossly normal Affect: normal affect Other: Good insight and judgment, pleasant H&P: Results Labs Labs: Short CBC 03/07/25 Range/Units 15:52 WBC 8.3 (4.5-10.0) K/mm3 Hgb 11.5 L (12.0-15.0) g/dL Hct 36.6 L (37.0-47.0) % Plt Count 296 (150-375) k/mm3 [facility] 03/07/25 15:52 Sodium 138 Potassium 3.5 Chloride 107 Carbon Dioxide 23 BUN 5 L Creatinine 1.13 H Glucose 111 H Calcium 9.2 Assessment and Plan Assessment and plan (1) Abscess: Code(s): L02.91 - Cutaneous abscess, unspecified Status: Acute Assessment and Plan: - small abscess to right groin region with edema extending to right labia - US soft tissue: Irregular hypoechoic area is seen measuring 0.7 x 0.7 x 0.6 cm which may be an area of infection with a small collection. Further evaluation advised. - initially on Bactrim b.i.d. PO x2.5 days (5 doses) without improvement - started on clindamycin in the ED on 03/07, will continue with same. Extensive allergy list. Denies history of MRSA. - wound culture obtained in ED post-I&D - blood cultures obtained on 03/07 -> follow, did not meet SIRS criteria - analgesics and antipyretics p.r.n. - trend WBC (2) COPD (chronic obstructive pulmonary disease): Qualifiers: COPD type: unspecified COPD Qualified Code(s): J44.9 - Chronic obstructive pulmonary disease, unspecified Code(s): J44.9 - Chronic obstructive pulmonary disease, unspecified Status: Chronic Assessment and Plan: - hx of COPD, no current exacerbation - albuterol neb p.r.n. Plan Diet: Heart healthy GI Prophylaxis: Not currently indicated DVT Prophylaxis: Xarelto IV fluids: 1L bolus Lines/Tubes: Peripheral IV Code Status: Full code Quality VTE Prophylaxis VTE prophylaxis: pharmacologic ordered Hospitalist MIPS Advance Care Plan I have confirmed that the patient's Advanced Care Plan is present, code status is documented, or surrogate decision maker is listed in patient medical record.: Yes Medication Reconciliation I have utilized all available resources to obtain, update and review the patients current medications (includes all prescriptions, OTC, herbals, cannabis, and nutritional supplements).: Yes
[2025-03-07] MEDS: CLINDAMYCIN 600 MG/D5W 50 ML 600 MG/50 ML PIGGYBACK 100 MG IVPB (18:40)
[2025-03-07 18:45] VITALS: BP 105/45; PULSE 70; RESP 16; TEMP 36.7; O2SAT 97
[2025-03-07 19:07] VITALS: BP 119/59; PULSE 65; RESP 16; O2SAT 98
[2025-03-07 19:22] VITALS: BMI 33.0
--- NOTE | 2025-03-07 19:24 | ADMGEN ---
This patient, Gege Vidal, was admitted to Medical Room 250-01. Patient/family oriented to hospital policies and general routines including ID bracelet, bed and alarms, visiting hours, pain management, procedures, bathroom and other care routines, personal items, smoking policy, room service/diet, and visiting hours. Information on how to activate the Rapid Response Team has been discussed. Patient/Family are encouraged to report perceived risks to care and to ask questions if they do not understand what they are told or what they should do.
[2025-03-07 19:33] VITALS: BMI 33.3
[2025-03-07 22:00] VITALS: BP 105/47; PULSE 65; RESP 18; TEMP 36.7; O2SAT 99
[2025-03-07 22:15] VITALS: PULSE 65
[2025-03-07] MEDS: ACETAMINOPHEN 325 MG TABLET 650 MG PO (22:15)
[2025-03-07] MEDS: NEBIVOLOL HCL 5 MG TABLET PO (22:15)
[2025-03-08] VITALS (8 sets, daily range): BP systolic 104–111; BP diastolic 34–58; PULSE 55–100; RESP 16–20; TEMP 36.3–36.9; O2SAT 97–99
[2025-03-08] MEDS: KETOROLAC 15 MG/ML VIAL (*BKC) IV PUSH ×2 (00:05→10:49)
[2025-03-08 05:15] LABS: Basophils Percent Auto 0.4 % (0.2-1.2); Eosinophils Absolute Auto 0.4 K/mm3 (0-0.3); Hematocrit 31.8 % (37.0-47.0); Hemoglobin 9.7 g/dL (12.0-15.0); Immature Granulocyte Absolute 0.02 K/mm3 (0.00-0.031); Immature Granulocyte Percent A 0.3 % (0-0.5); Lymphocytes Absolute Auto 1.65 K/mm3 (0.9-3.2); Lymphocytes Percent Auto 23.6 % (18.3-44.2); Mean Corpuscular HGB Conc 30.5 g/dl (32-36); Mean Corpuscular Hemoglobin 26.3 pg (26-34); Mean Corpuscular Volume 86.2 fl (80-100); Mean Platelet Volume 9.9 fl (7.4-10.4); Monocytes Absolute Auto 0.6 K/mm3 (0.1-0.6); Monocytes Percent Auto 7.9 % (2.6-8.5); Neutrophils Absolute Auto 4.4 K/mm3 (1.3-6.7); Neutrophils Percent Auto 62.8 % (45.5-73.1); Platelet Count Result 250 k/mm3 (150-375); Red Blood Count 3.69 M/mm3 (4.2-5.4); Red Cell Distribution Width 13.6 % (11.5-14.5)
[2025-03-08 05:36] LABS: Anion Gap 8 mmol/L (4-12); Blood Urea Nitrogen 6 mg/dL (7-17); Calcium 8.6 mg/dL (8.4-10.2); Carbon Dioxide 23 mmol/L (22-30); Chloride 109 mmol/L (98-107); Estimated CRCL calculation 52 ml/min; Estimated Glomerular Filt Rate 52; Glucose 114 mg/dL (65-110); Potassium 3.7 mmol/L (3.4-5.0); Sodium 140 mmol/L (137-145)
[2025-03-08] MEDS: LEVOTHYROXINE SODIUM 88 MCG TABLET PO (06:03)
[2025-03-08] MEDS: CLINDAMYCIN 900 MG/D5W 50 ML 900 MG/50 ML PIGGYBACK 50 MG IVPB ×3 (06:08→21:41)
[2025-03-08] MEDS: FLUTICASONE/SALMETEROL 230-21 MCG INHALER 1 PUFF 2 PUFF INHALATION ×2 (08:55→20:30)
--- NOTE | 2025-03-08 10:15 | PM.IMPN ---
Progress Note: A&P Assessment and Plan (1) Abscess: Code(s): L02.91 - Cutaneous abscess, unspecified Status: Acute Assessment and Plan: - small abscess to right groin region with edema extending to right labia - US soft tissue: Irregular hypoechoic area is seen measuring 0.7 x 0.7 x 0.6 cm which may be an area of infection with a small collection. Further evaluation advised. - initially on Bactrim b.i.d. PO x2.5 days (5 doses) without improvement - started on clindamycin in the ED on 03/07, will continue with same. Extensive allergy list. Denies history of MRSA. - wound culture obtained in ED post-I&D, pending. - blood cultures obtained on 03/07 -> follow, did not meet SIRS criteria - analgesics and antipyretics p.r.n. - WBC 7.0. (2) COPD (chronic obstructive pulmonary disease): Qualifiers: COPD type: unspecified COPD Qualified Code(s): J44.9 - Chronic obstructive pulmonary disease, unspecified Code(s): J44.9 - Chronic obstructive pulmonary disease, unspecified Status: Chronic Assessment and Plan: - hx of COPD, no current exacerbation - albuterol neb p.r.n. Plan Diet: Heart healthy GI Prophylaxis: Not currently indicated DVT Prophylaxis: Xarelto IV fluids: 1L bolus Lines/Tubes: Peripheral IV Code Status: Full code Subjective Date/time seen: 03/08/25 10:16 Interval history: Patient reports that pain in boil area is a 6, constant, and pressure. Patient denies chest pain, palpitations, headache, dizziness, nausea, or vomiting. Review of Systems Review of Systems: All systems reviewed & are unremarkable except as noted in HPI and below Exam Const: General: no acute distress and uncomfortable Resp: Effort & Inspection: normal respiratory effort Auscultation: clear to auscultation bilaterally Cardio: Rate: regular rate Rhythm: regular rhythm GI: GI Palp: Yes Soft to palpation Auscultation: normal bowel sounds Skin: Other: 4x5 cm of induration to the right mons pubis with surrounding erythema that extends to the right groin and across the mons and to the right labia. packing to I&D site. Serosanguineous drainage. Neuro: Speech: normal speech Extrem: General: no pedal edema Psych: Mental Status: mental status grossly normal Affect: normal affect Objective Data Vital Signs Vital Signs: Vital Signs - 24 hr 03/07/25 15:25 03/07/25 15:34 03/07/25 18:45 Temperature 97.7 F 97.5 F L 98.1 F Pulse Rate 94 75 70 Respiratory Rate 18 16 16 Blood Pressure 128/62 117/52 L 105/45 L Pulse Oximetry 97 98 97 Oxygen Delivery Room Air Room Air 03/07/25 19:07 03/07/25 22:00 03/07/25 22:15 Temperature 98.0 F Pulse Rate 65 65 65 Respiratory Rate 16 18 Blood Pressure 119/59 L 105/47 L Pulse Oximetry 98 99 Oxygen Delivery 03/08/25 06:00 Temperature 97.4 F L Pulse Rate 100 Respiratory Rate 18 Blood Pressure 104/34 L Pulse Oximetry 98 Oxygen Delivery Intake/Output Intake/Output: Intake & Output 03/05/25 03/06/25 03/07/25 03/08/25 23:59 23:59 23:59 23:59 Intake Total 1050 50 Balance 1050 50 Meds/Results Medications: Active Medications Generic Name Dose Route Start Last Admin Trade Name Freq PRN Reason Stop Dose Admin Acetaminophen 650 mg 03/07/25 18:45 03/07/25 22:15 Acetaminophen 325 Mg Tablet PO 650 mg Q6H PRN Administration Mild Pain (1-3) or Fever Albuterol 2.5 mg 03/07/25 21:54 Albuterol Sulfate Neb 2.5 Mg/3 Ml Inh INHALATION Q4-6H PRN shortness of breath or wheezing Alprazolam 0.5 mg 03/07/25 21:54 Alprazolam (*Crx) 0.5 Mg Tablet PO BID PRN anxiety Aspirin 81 mg 03/08/25 09:00 Aspirin 81 Mg Chewable Tablet PO DAILY [facility] Atorvastatin Calcium 40 mg 03/08/25 09:00 Atorvastatin 40 Mg Tablet PO DAILY [facility] Cyanocobalamin 1,000 mcg 03/08/25 09:00 Cyanocobalamin 1,000 Mcg Tablet PO DAILY [facility] Cyclobenzaprine HCl 10 mg 03/08/25 09:00 Cyclobenzaprine Hcl 10 Mg Tablet PO TID PRN MUSCLE SPASM Dicyclomine HCl 20 mg 03/07/25 21:54 Dicyclomine Hcl 10 Mg Capsule PO TID PRN abdominal pain Ergocalciferol 1,250 mcg 03/30/25 09:00 Ergocalciferol (Vitamin D2) 1,250 Mcg (50,000 Units) Capsule PO Q30D [facility] Ferrous Sulfate 325 mg 03/08/25 09:00 Ferrous Sulfate [address] PO DAILY [facility] Fluticasone Propionate 2 spray 03/08/25 09:00 Fluticasone Propionate 0.05% Na Spr 16 Gm Btl (*Bkc) NASAL DAILY [facility] Folic Acid 1 mg 03/08/25 09:00 Folic Acid 1 Mg Tablet PO DAILY [facility] Clindamycin Phosphate 900 mg in 50 mls @ 50 mls/hr 03/08/25 06:00 03/08/25 07:00 Cleocin 900 Mg/D5w 50 Ml IVPB Infused Q8HR [facility] Infusion Ketorolac Tromethamine 15 mg 03/07/25 18:46 03/08/25 00:05 Ketorolac 15 Mg/Ml Vial (*Bkc) IV PUSH 03/09/25 17:30 15 mg Q6H PRN Administration Pain Rated 4-6 Lactobacillus Acidophilus 1 tablet 03/08/25 09:00 Acidophilus/Bulgaricus Chewable Tablet PO DAILY [facility] Levothyroxine Sodium 88 mcg 03/08/25 06:30 03/08/25 06:03 Levothyroxine Sodium 88 Mcg Tablet PO 88 mcg DAILY@0630 [facility] Administration Miconazole Nitrate 1 applic 03/07/25 22:08 Miconazole Nitrate 2% Cream 30 Gm Tube TOPICAL BID PRN rash Nebivolol 5 mg 03/07/25 21:00 03/07/25 22:15 Nebivolol Hcl 5 Mg Tablet PO 5 mg HS [facility] Administration Ondansetron HCl 4 mg 03/07/25 21:54 Ondansetron Hcl Odt 4 Mg Tablet PO Q8H PRN nausea and vomiting Pantoprazole Sodium 20 mg 03/08/25 09:00 Pantoprazole Sod Sesquihydrate 20 Mg Tab PO DAILY [facility] Rivaroxaban 20 mg 03/08/25 09:00 Rivaroxaban 20 Mg Tablet PO DAILY [facility] Fluticasone/Salmeterol 2 puff 03/08/25 08:00 03/08/25 08:55 Fluticasone/Salmeterol 230-21 Mcg Inhaler 1 Puff INHALATION 2 puff Q12HRT [facility] Administration Vitamin D 25 mcg 03/08/25 09:00 Cholecalciferol (Vitamin D3) 25 Mcg (1,000 Units) Tablet PO DAILY [facility] Labs Labs: Laboratory Results - last 24 hr 03/07/25 03/08/25 15:52 04:48 WBC 8.3 7.0 RBC 4.35 3.69 L Hgb 11.5 L 9.7 L Hct 36.6 L 31.8 L MCV 84.1 86.2 MCH 26.4 26.3 MCHC 31.4 L 30.5 L RDW 13.4 13.6 Plt Count 296 250 MPV 9.4 9.9 Immature Gran % (Auto) 0.2 0.3 Neut % (Auto) 70.9 62.8 Lymph % (Auto) 18.5 23.6 [place] % (Auto) 7.4 7.9 Eos % (Auto) 2.6 5.0 H Baso % (Auto) 0.4 0.4 Lymph # (Auto) 1.54 1.65 [place] # (Auto) 0.6 0.6 Eos # (Auto) 0.2 0.4 H Baso # (Auto) 0.0 0.0 Abs Immat Gran (auto) 0.02 0.02 Absolute Neuts (auto) 5.9 4.4 Absolute Nucleated RBC 0.000 0.000 Nucleated RBC % 0.0 0.0 ESR 63 H Sodium 138 140 Potassium 3.5 3.7 Chloride 107 109 H Carbon Dioxide 23 23 Anion Gap 8 8 BUN 5 L 6 L Creatinine 1.13 H 1.06 H Estim Creat Clear Calc 48 52 Estimated GFR 49 L 52 L Glucose 111 H 114 H Calcium 9.2 8.6 C-Reactive Protein 1.1 Quality VTE Prophylaxis VTE prophylaxis: pharmacologic ordered
[2025-03-08] MEDS: ACIDOPHILUS/BULGARICUS CHEWABLE TABLET 1 TABLET PO (10:40)
[2025-03-08] MEDS: ATORVASTATIN 40 MG TABLET PO (10:40)
[2025-03-08] MEDS: polyethylene glycoL 3350 17 GM POWD.PACK PO (10:40)
[2025-03-08] MEDS: CHOLECALCIFEROL (VITAMIN D3) 25 MCG (1,000 UNITS) TABLET PO (10:40)
[2025-03-08] MEDS: PANTOPRAZOLE SOD SESQUIHYDRATE 20 MG TAB PO (10:41)
[2025-03-08] MEDS: ASPIRIN 81 MG CHEWABLE TABLET PO (10:41)
[2025-03-08] MEDS: CYANOCOBALAMIN 1,000 MCG TABLET 1000 MCG PO (10:41)
[2025-03-08] MEDS: RIVAROXABAN 20 MG TABLET PO (10:41)
[2025-03-08] MEDS: FOLIC ACID 1 MG TABLET PO (10:41)
[2025-03-08] MEDS: FERROUS SULFATE 325 MG TABLET DR PO (10:41)
[2025-03-08] MEDS: FLUTICASONE PROPIONATE 0.05% NA SPR 16 GM BTL (*BKC) 2 SPRAY NASAL (10:48)
[2025-03-08] MEDS: ACETAMINOPHEN 325 MG TABLET 650 MG PO (21:33)
--- NOTE | 2025-03-08 21:38 | PC.NURSE ---
Patient resting in bed with c/o of headache 10/26. Blood pressure reported as 102/30 with heart rate of 72. Patient blood pressure rechecked several times and was 111/37 with heart rate of 80 at 2126. Bystolic to be administered but not given. Provider Sarah Rodríguez was called to make aware and gave okay to hold medication. Tylenol given for headache. Will continue to monitor.
[2025-03-09] VITALS (7 sets, daily range): BP systolic 108–124; BP diastolic 40–55; PULSE 63–68; RESP 16–18; TEMP 36.4–36.7; O2SAT 97–98
[2025-03-09 05:29] LABS: Basophils Percent Auto 0.3 % (0.2-1.2); Eosinophils Absolute Auto 0.2 K/mm3 (0-0.3); Eosinophils Percent Auto 2.6 % (0-4.4); Hematocrit 31.2 % (37.0-47.0); Hemoglobin 9.2 g/dL (12.0-15.0); Immature Granulocyte Absolute 0.03 K/mm3 (0.00-0.031); Immature Granulocyte Percent A 0.4 % (0-0.5); Lymphocytes Percent Auto 26.4 % (18.3-44.2); Mean Corpuscular HGB Conc 29.5 g/dl (32-36); Mean Corpuscular Hemoglobin 26.4 pg (26-34); Mean Corpuscular Volume 89.4 fl (80-100); Mean Platelet Volume 10.1 fl (7.4-10.4); Monocytes Absolute Auto 0.5 K/mm3 (0.1-0.6); Monocytes Percent Auto 7.6 % (2.6-8.5); Neutrophils Absolute Auto 4.3 K/mm3 (1.3-6.7); Neutrophils Percent Auto 62.7 % (45.5-73.1); Platelet Count Result 226 k/mm3 (150-375); Red Blood Count 3.49 M/mm3 (4.2-5.4); Red Cell Distribution Width 13.8 % (11.5-14.5); White Blood Count 6.8 K/mm3 (4.5-10.0)
[2025-03-09 05:52] LABS: Alanine Aminotransferase 15 U/L (6-35); Albumin Level 3.2 g/dL (3.5-5.1); Alkaline Phosphatase 99 U/L (38-126); Anion Gap 7 mmol/L (4-12); Aspartate Amino Transferase 22 U/L (14-36); Bilirubin,Total 0.3 mg/dL (0.2-1.3); Blood Urea Nitrogen 11 mg/dL (7-17); Calcium 8.5 mg/dL (8.4-10.2); Carbon Dioxide 21 mmol/L (22-30); Chloride 110 mmol/L (98-107); Estimated CRCL calculation 55 ml/min; Estimated Glomerular Filt Rate 57; Glucose 92 mg/dL (65-110); Potassium 3.9 mmol/L (3.4-5.0); Sodium 138 mmol/L (137-145); Total Protein 5.8 g/dL (6.3-8.2)
[2025-03-09] MEDS: CLINDAMYCIN 900 MG/D5W 50 ML 900 MG/50 ML PIGGYBACK 50 MG IVPB (06:45)
[2025-03-09] MEDS: LEVOTHYROXINE SODIUM 88 MCG TABLET PO (06:51)
--- NOTE | 2025-03-09 06:57 | PC.NURSE ---
Dressing changed to right pubis IND area. Area cleaned with NS, pat dried and placed new 4X4 dressing secured with tape. Old dressing had old small blood dry blood on it. Patient states area remains tender to touch otherwise no complaints. IV antibiotics infusing at this time. NO ASE noted.
[2025-03-09] MEDS: FLUTICASONE/SALMETEROL 230-21 MCG INHALER 1 PUFF 2 PUFF INHALATION ×2 (07:54→20:02)
[2025-03-09] MEDS: CYANOCOBALAMIN 1,000 MCG TABLET 1000 MCG PO (08:26)
[2025-03-09] MEDS: ATORVASTATIN 40 MG TABLET PO (08:26)
[2025-03-09] MEDS: RIVAROXABAN 20 MG TABLET PO (08:26)
[2025-03-09] MEDS: ACIDOPHILUS/BULGARICUS CHEWABLE TABLET 1 TABLET PO (08:27)
[2025-03-09] MEDS: FERROUS SULFATE 325 MG TABLET DR PO (08:27)
[2025-03-09] MEDS: polyethylene glycoL 3350 17 GM POWD.PACK PO (08:27)
[2025-03-09] MEDS: CHOLECALCIFEROL (VITAMIN D3) 25 MCG (1,000 UNITS) TABLET PO (08:27)
[2025-03-09] MEDS: PANTOPRAZOLE SOD SESQUIHYDRATE 20 MG TAB PO (08:27)
[2025-03-09] MEDS: FOLIC ACID 1 MG TABLET PO (08:27)
[2025-03-09] MEDS: ASPIRIN 81 MG CHEWABLE TABLET PO (08:27)
[2025-03-09] MEDS: FLUTICASONE PROPIONATE 0.05% NA SPR 16 GM BTL (*BKC) 2 SPRAY NASAL (08:30)
--- NOTE | 2025-03-09 11:20 | P.PNIM_ITS ---
Progress Note: A&P Assessment and Plan (1) Abscess: Code(s): L02.91 - Cutaneous abscess, unspecified Status: Acute Assessment and Plan: - small abscess to right groin region with edema extending to right labia - US soft tissue: Irregular hypoechoic area is seen measuring 0.7 x 0.7 x 0.6 cm which may be an area of infection with a small collection. Further evaluation advised. - initially on Bactrim b.i.d. PO x2.5 days (5 doses) without improvement - started on clindamycin in the ED on 03/07, 03/09 switched to Linezolid 600 mg PO q 12 (will need to hold Cyclobenzaprine while on Linezolid). Extensive aller gy list. Denies history of MRSA. - wound culture obtained in ED post-I&D, grew staphylococcus aureus - blood cultures obtained on 03/07 -> follow, did not meet SIRS criteria - analgesics and antipyretics p.r.n. - WBC 6.8. (2) COPD (chronic obstructive pulmonary disease): Qualifiers: COPD type: unspecified COPD Qualified Code(s): J44.9 - Chronic obstructive pulmonary disease, unspecified Code(s): J44.9 - Chronic obstructive pulmonary disease, unspecified Status: Chronic Assessment and Plan: - hx of COPD, no current exacerbation - albuterol neb p.r.n. Plan Diet: Heart healthy GI Prophylaxis: Not currently indicated DVT Prophylaxis: Xarelto IV fluids: 1L bolus Lines/Tubes: Peripheral IV Code Status: Full code Subjective Date/time seen: 03/09/25 11:20 Interval history: Patient reports that pain in boil area is a 6, frequent, and pressure. Patient denies chest pain, palpitations, headache, dizziness, nausea, or vomiting. Jordana ent reports that she had chills yesterday and needed multiple blankets. Patient having slight chills at times today. Review of Systems Review of Systems: All systems reviewed & are unremarkable except as noted in HPI and below Exam Const: General: no acute distress and uncomfortable Resp: Effort & Inspection: normal respiratory effort Auscultation: clear to auscultation bilaterally Cardio: Rate: regular rate Rhythm: regular rhythm GI: GI Palp: Yes Soft to palpation Auscultation: normal bowel sounds Skin: Other: 4x5 cm of induration to the right mons p ubis with surrounding erythema that extends to the right groin and across the mons and to the right labia. Serosanguineous drainage. Neuro: Speech: normal speech Extrem: General: no pedal edema Psych: Mental Status: mental status grossly normal Affect: normal affect Objective Data Vital Signs Vital Signs: Vital Signs - 24 hr 03/08/25 14:00 03/08/25 20:00 03/08/25 21:11 Temperature 98 F Pulse Rate 60 72 89 Respiratory Rate 17 18 16 Blood Pressure 108/58 L Pulse Oximetry 98 97 Oxygen Delivery Room Air Fraction of Inspired Oxygen 21 03/08/25 21:13 03/08/25 21:31 03/08/25 22:00 Temperature 98.4 F Pulse Rate 80 72 Respiratory Rate 16 18 Blood Pressure 111/37 L Pulse Oximetry 98 97 Oxygen Delivery Room Air Fraction of Inspired Oxygen 03/09/25 06:00 03/09/25 08:03 Temperature 97.5 F L Pulse Rate 63 Respiratory Rate 18 16 Blood Pressure 124/40 L Pulse Oximetry 97 Oxygen Delivery Fraction of Inspired Oxygen Intake/Output Intake/Output: Intake & Output 03/06/25 03/07/25 03/08/25 03/09/25 23:59 23:59 23:59 23:59 Intake Total 1050 960 290 Balance 1050 960 290 Meds/Results Medications: Active Medications Generic Name Dose Route Start Last Admin Trade Name Freq PRN Reason Stop Dose Admin Acetaminophen 650 mg 03/07/25 18:45 03/08/25 21:33 Acetaminophen 325 Mg Tablet PO 650 mg Q6H PRN Administration Mild Pain (1-3) or Fever Albuterol 2.5 mg 03/07/25 21:54 Albuterol Sulfate Neb 2.5 Mg/3 Ml Inh INHALATION Q4-6H PRN shortness of breath or wheezing Alprazolam 0.5 mg 03/07/25 21:54 Alprazolam (*Crx) 0.5 Mg Tablet PO BID PRN anxiety Aspirin 81 mg 03/08/25 09:00 03/09/25 08:27 Aspirin 81 Mg Chewable Tablet PO 81 mg DAILY RAFIQ Administration Atorvastatin Calcium 40 mg 03/08/25 09:00 03/09/25 08:26 Atorvastatin 40 Mg Tablet PO 40 mg DAILY RAFIQ Administration Cyanocobalamin 1,000 mcg 03/08/25 09:00 03/09/25 08:26 Cyanocobalamin 1,000 Mcg Tablet PO 1,000 mcg DAILY RAFIQ Administration Cyclobenzaprine HCl 10 mg 03/08/25 09:00 Cyclobenzaprine Hcl 10 Mg Tablet PO TID PRN MUSCLE SPASM Dicyclomine HCl 20 mg 03/07/25 21:54 Dicyclomine Hcl 10 Mg Capsule PO TID PRN abdominal pain Ergocalciferol 1,250 mcg 03/30/25 09:00 Ergocalciferol (Vitamin D2) 1,250 Mcg (50,000 Units) Capsule PO Q30D [facility] Ferrous Sulfate 325 mg 03/08/25 09:00 03/09/25 08:27 Ferrous Sulfate [address] PO 325 mg DAILY [facility] Administration Fluticasone Propionate 2 spray 03/08/25 09:00 03/09/25 08:30 Fluticasone Propionate 0.05% Na Spr 16 Gm Btl (*Bkc) NASAL 2 spray DAILY [facility] Administration Folic Acid 1 mg 03/08/25 09:00 03/09/25 08:27 Folic Acid 1 Mg Tablet PO 1 mg DAILY [facility] Administration Clindamycin Phosphate 900 mg in 50 mls @ 50 mls/hr 03/08/25 06:00 03/09/25 07:55 Cleocin 900 Mg/D5w 50 Ml IVPB Infused Q8HR [facility] Infusion Ketorolac Tromethamine 15 mg 03/07/25 18:46 03/08/25 10:49 Ketorolac 15 Mg/Ml Vial (*Bkc) IV PUSH 03/09/25 17:30 15 mg Q6H PRN Administration Pain Rated 4-6 Lactobacillus Acidophilus 1 tablet 03/08/25 09:00 03/09/25 08:27 Acidophilus/Bulgaricus Chewable Tablet PO 1 tablet DAILY [facility] Administration Levothyroxine Sodium 88 mcg 03/08/25 06:30 03/09/25 06:51 Levothyroxine Sodium 88 Mcg Tablet PO 88 mcg DAILY@0630 [facility] Administration Miconazole Nitrate 1 applic 03/07/25 22:08 Miconazole Nitrate 2% Cream 30 Gm Tube TOPICAL BID PRN rash Nebivolol 5 mg 03/07/25 21:00 03/08/25 21:31 Nebivolol Hcl 5 Mg Tablet PO Not Given HS [facility] Ondansetron HCl 4 mg 03/07/25 21:54 Ondansetron Hcl Odt 4 Mg Tablet PO Q8H PRN nausea and vomiting Pantoprazole Sodium 20 mg 03/08/25 09:00 03/09/25 08:27 Pantoprazole Sod Sesquihydrate 20 Mg Tab PO 20 mg DAILY RAFIQ Administration Polyethylene Glycol 17 gm 03/08/25 10:20 03/09/25 08:27 Polyethylene Glycol 3350 17 Gm Powd.Pack PO 17 gm QAM RAFIQ Administration Rivaroxaban 20 mg 03/08/25 09:00 03/09/25 08:26 Rivaroxaban 20 Mg Tablet PO 20 mg DAILY RAFIQ Administration Fluticasone/Salmeterol 2 puff 03/08/25 08:00 03/09/25 07:54 Fluticasone/Salmeterol 230-21 Mcg Inhaler 1 Puff INHALATION 2 puff Q12HRT RAFIQ Administration Vitamin D 25 mcg 03/08/25 09:00 03/09/25 08:27 Cholecalciferol (Vitamin D3) 25 Mcg (1,000 Units) Tablet PO 25 mcg DAILY RAFIQ Administration Labs Labs: Laboratory Results - last 24 hr 03/09/25 04:52 WBC 6.8 RBC 3.49 L Hgb 9.2 L Hct 31.2 L MCV 89.4 MCH 26.4 MCHC 29.5 L RDW 13.8 Plt Count 226 MPV 10.1 Immature Gran % (Auto) 0.4 Neut % (Auto) 62.7 Lymph % (Auto) 26.4 [place] % (Auto) 7.6 Eos % (Auto) 2.6 Baso % (Auto) 0.3 Lymph # (Auto) 1.80 [place] # (Auto) 0.5 Eos # (Auto) 0.2 Baso # (Auto) 0.0 Abs Immat Gran (auto) 0.03 Absolute Neuts (auto) 4.3 Absolute Nucleated RBC 0.000 Nucleated RBC % 0.0 Sodium 138 Potassium 3.9 Chloride 110 H Carbon Dioxide 21 L Anion Gap 7 BUN 11 D Creatinine 0.99 Estim Creat Clear Calc 55 Estimated GFR 57 L Glucose 92 Calcium 8.5 Total Bilirubin 0.3 AST 22 ALT 15 Alkaline Phosphatase 99 Total Protein 5.8 L Albumin 3.2 L Quality VTE Prophylaxis VTE prophylaxis: pharmacologic ordered
[2025-03-09] MEDS: SODIUM CHLORIDE 0.9% IV 1,000 ML 75 ML IV CONT (12:53)
[2025-03-09] MEDS: LINEZOLID 600 MG TABLET PO (21:47)
[2025-03-09] MEDS: ALPRAZolam (*CRX) 0.5 MG TABLET PO (21:47)
[2025-03-10 05:18] LABS: Basophils Percent Auto 0.3 % (0.2-1.2); Eosinophils Absolute Auto 0.3 K/mm3 (0-0.3); Eosinophils Percent Auto 4.2 % (0-4.4); Hematocrit 29.9 % (37.0-47.0); Hemoglobin 9.2 g/dL (12.0-15.0); Immature Granulocyte Absolute 0.02 K/mm3 (0.00-0.031); Immature Granulocyte Percent A 0.3 % (0-0.5); Lymphocytes Percent Auto 29.1 % (18.3-44.2); Mean Corpuscular HGB Conc 30.8 g/dl (32-36); Mean Corpuscular Hemoglobin 26.5 pg (26-34); Mean Corpuscular Volume 86.2 fl (80-100); Mean Platelet Volume 10.1 fl (7.4-10.4); Monocytes Absolute Auto 0.5 K/mm3 (0.1-0.6); Monocytes Percent Auto 8.1 % (2.6-8.5); Neutrophils Absolute Auto 3.6 K/mm3 (1.3-6.7); Platelet Count Result 252 k/mm3 (150-375); Red Blood Count 3.47 M/mm3 (4.2-5.4); Red Cell Distribution Width 13.8 % (11.5-14.5); White Blood Count 6.2 K/mm3 (4.5-10.0)
[2025-03-10 05:29] LABS: Alanine Aminotransferase 14 U/L (6-35); Albumin Level 3.2 g/dL (3.5-5.1); Alkaline Phosphatase 93 U/L (38-126); Anion Gap 5 mmol/L (4-12); Aspartate Amino Transferase 17 U/L (14-36); Bilirubin,Total 0.2 mg/dL (0.2-1.3); Blood Urea Nitrogen 10 mg/dL (7-17); Calcium 8.6 mg/dL (8.4-10.2); Carbon Dioxide 24 mmol/L (22-30); Chloride 110 mmol/L (98-107); Estimated CRCL calculation 62 ml/min; Estimated Glomerular Filt Rate > 60; Glucose 113 mg/dL (65-110); Potassium 3.9 mmol/L (3.4-5.0); Sodium 139 mmol/L (137-145); Total Protein 5.9 g/dL (6.3-8.2)
[2025-03-10 05:51] VITALS: BP 102/48; PULSE 67; RESP 16; TEMP 36.5; O2SAT 99
[2025-03-10] MEDS: LEVOTHYROXINE SODIUM 88 MCG TABLET PO (06:13)
--- NOTE | 2025-03-10 06:20 | PC.NURSE ---
Dressing changed 0620. Incision antoni-site red and area tender to touch. Small amount of dry blood noted to old dressing. Area cleansed with soap and water and new dressing applied.
[2025-03-10] MEDS: FLUTICASONE/SALMETEROL 230-21 MCG INHALER 1 PUFF 2 PUFF INHALATION ×2 (07:15→20:31)
[2025-03-10 07:16] VITALS: PULSE 63; RESP 20; O2SAT 99
[2025-03-10] MEDS: PANTOPRAZOLE SOD SESQUIHYDRATE 20 MG TAB PO (08:50)
[2025-03-10] MEDS: ACIDOPHILUS/BULGARICUS CHEWABLE TABLET 1 TABLET PO (08:50)
[2025-03-10] MEDS: ASPIRIN 81 MG CHEWABLE TABLET PO (08:50)
[2025-03-10] MEDS: CHOLECALCIFEROL (VITAMIN D3) 25 MCG (1,000 UNITS) TABLET PO (08:50)
[2025-03-10] MEDS: RIVAROXABAN 20 MG TABLET PO (08:50)
[2025-03-10] MEDS: FERROUS SULFATE 325 MG TABLET DR PO (08:50)
[2025-03-10] MEDS: CYANOCOBALAMIN 1,000 MCG TABLET 1000 MCG PO (08:50)
[2025-03-10] MEDS: LINEZOLID 600 MG TABLET PO ×2 (08:51→21:08)
[2025-03-10] MEDS: FLUTICASONE PROPIONATE 0.05% NA SPR 16 GM BTL (*BKC) 2 SPRAY NASAL (08:51)
[2025-03-10] MEDS: FOLIC ACID 1 MG TABLET PO (08:51)
[2025-03-10] MEDS: ATORVASTATIN 40 MG TABLET PO (08:51)
--- NOTE | 2025-03-10 09:05 | PM.IMPN ---
Progress Note: A&P Assessment and Plan (1) Abscess: Code(s): L02.91 - Cutaneous abscess, unspecified Status: Acute Assessment and Plan: - small abscess to right groin region with edema extending to right labia - US soft tissue: Irregular hypoechoic area is seen measuring 0.7 x 0.7 x 0.6 cm which may be an area of infection with a small collection. Further evaluation advised. - initially on Bactrim b.i.d. PO x2.5 days (5 doses) without improvement - started on clindamycin in the ED on 03/07, 03/09 switched to Linezolid 600 mg PO q 12 (will need to hold Cyclobenzaprine while on Linezolid). Extensive allergy list. Denies history of MRSA. - wound culture obtained in ED post-I&D, grew MRSA - blood cultures obtained on 03/07 -> follow, did not meet SIRS criteria - analgesics and antipyretics p.r.n. - WBC 6.8. --DC in AM if improving (2) COPD (chronic obstructive pulmonary disease): Qualifiers: COPD type: unspecified COPD Qualified Code(s): J44.9 - Chronic obstructive pulmonary disease, unspecified Code(s): J44.9 - Chronic obstructive pulmonary disease, unspecified Status: Chronic Assessment and Plan: - hx of COPD, no current exacerbation - albuterol neb p.r.n. Plan Diet: Heart healthy GI Prophylaxis: Not currently indicated DVT Prophylaxis: Xarelto Lines/Tubes: Peripheral IV Code Status: Full code Time Spent With Patient Time: 58 minutes Subjective Date/time seen: 03/10/25 09:05 Interval history: Pain improving. Overall feeling ok but right groin abscess still with some induration and tenderness to right thigh and upper abdomen Review of Systems Review of Systems: All systems reviewed & are unremarkable except as noted in HPI and below Exam Narrative: General - Awake and alert. No acute distress Eyes - PERRLA, EOM intact ENT - No thrush, No erythema Neck - No noticeable or palpable swelling Lymph Nodes - No lymphadenopathy Cardiovascular - RRR no m/r/g, no JVD Lungs: Clear to auscultation, No wheezing, use of accessory muscles, no crackles Skin - Skin warm and dry, no rashes [employer]: right mons pubis with a small amount of erythema and induration, minimal drainage Abdomen - Normal bowel sounds, abdomen soft and nontender Extremities - No edema, cyanosis or clubbing Musculoskeletal - 5/5 strength, normal range of motion, no swollen or erythematous joints. Neurological ? Alert and oriented x 3, CN 2-12 grossly intact. Psych: Normal mood and affect Objective Data Vital Signs Vital Signs: Vital Signs - 24 hr 03/09/25 14:00 03/09/25 20:00 03/09/25 20:02 Temperature 97.6 F Pulse Rate 68 68 66 Respiratory Rate 18 18 Blood Pressure 120/55 L Pulse Oximetry 97 98 98 Oxygen Delivery Room Air Room Air 03/09/25 21:23 03/09/25 21:48 03/10/25 05:51 Temperature 98.0 F 97.7 F Pulse Rate 68 66 67 Respiratory Rate 16 16 Blood Pressure 108/52 L 102/48 L Pulse Oximetry 98 99 Oxygen Delivery 03/10/25 07:16 03/10/25 07:16 Temperature Pulse Rate 63 63 Respiratory Rate 20 20 Blood Pressure Pulse Oximetry 99 Oxygen Delivery Room Air Intake/Output Intake/Output: Intake & Output 03/07/25 03/08/25 03/09/25 03/10/25 23:59 23:59 23:59 23:59 Intake Total 1050 087 371 1934.8 Balance 1050 811 782 3978.8 Meds/Results Medications: Active Medications Generic Name Dose Route Start Last Admin Trade Name Freq PRN Reason Stop Dose Admin Acetaminophen 650 mg 03/07/25 18:45 03/08/25 21:33 Acetaminophen 325 Mg Tablet PO 650 mg Q6H PRN Administration Mild Pain (1-3) or Fever Albuterol 2.5 mg 03/07/25 21:54 Albuterol Sulfate Neb 2.5 Mg/3 Ml Inh INHALATION Q4-6H PRN shortness of breath or wheezing Alprazolam 0.5 mg 03/07/25 21:54 03/09/25 21:47 Alprazolam (*Crx) 0.5 Mg Tablet PO 0.5 mg BID PRN Administration anxiety Aspirin 81 mg 03/08/25 09:00 03/10/25 08:50 Aspirin 81 Mg Chewable Tablet PO 81 mg DAILY RAFIQ Administration Atorvastatin Calcium 40 mg 03/08/25 09:00 03/10/25 08:51 Atorvastatin 40 Mg Tablet PO 40 mg DAILY RAFIQ Administration Cyanocobalamin 1,000 mcg 03/08/25 09:00 03/10/25 08:50 Cyanocobalamin 1,000 Mcg Tablet PO 1,000 mcg DAILY [facility] Administration Dicyclomine HCl 20 mg 03/07/25 21:54 Dicyclomine Hcl 10 Mg Capsule PO TID PRN abdominal pain Ergocalciferol 1,250 mcg 03/30/25 09:00 Ergocalciferol (Vitamin D2) 1,250 Mcg (50,000 Units) Capsule PO Q30D [facility] Ferrous Sulfate 325 mg 03/08/25 09:00 03/10/25 08:50 Ferrous Sulfate [address] PO 325 mg DAILY [facility] Administration Fluticasone Propionate 2 spray 03/08/25 09:00 03/10/25 08:51 Fluticasone Propionate 0.05% Na Spr 16 Gm Btl (*Bkc) NASAL 2 spray DAILY [facility] Administration Folic Acid 1 mg 03/08/25 09:00 03/10/25 08:51 Folic Acid 1 Mg Tablet PO 1 mg DAILY [facility] Administration Lactobacillus Acidophilus 1 tablet 03/08/25 09:00 03/10/25 08:50 Acidophilus/Bulgaricus Chewable Tablet PO 1 tablet DAILY [facility] Administration Levothyroxine Sodium 88 mcg 03/08/25 06:30 03/10/25 06:13 Levothyroxine Sodium 88 Mcg Tablet PO 88 mcg DAILY@0630 [facility] Administration Linezolid 600 mg 03/09/25 21:00 03/10/25 08:51 Linezolid 600 Mg Tablet PO 600 mg Q12HR [facility] Administration Miconazole Nitrate 1 applic 03/07/25 22:08 Miconazole Nitrate 2% Cream 30 Gm Tube TOPICAL BID PRN rash Nebivolol 5 mg 03/07/25 21:00 03/09/25 21:48 Nebivolol Hcl 5 Mg Tablet PO Not Given HS [facility] Ondansetron HCl 4 mg 03/07/25 21:54 Ondansetron Hcl Odt 4 Mg Tablet PO Q8H PRN nausea and vomiting Pantoprazole Sodium 20 mg 03/08/25 09:00 03/10/25 08:50 Pantoprazole Sod Sesquihydrate 20 Mg Tab PO 20 mg DAILY RAFIQ Administration Polyethylene Glycol 17 gm 03/08/25 10:20 03/10/25 08:51 Polyethylene Glycol 3350 17 Gm Powd.Pack PO Not Given QAM [facility] Rivaroxaban 20 mg 03/08/25 09:00 03/10/25 08:50 Rivaroxaban 20 Mg Tablet PO 20 mg DAILY RAFIQ Administration Fluticasone/Salmeterol 2 puff 03/08/25 08:00 03/10/25 07:15 Fluticasone/Salmeterol 230-21 Mcg Inhaler 1 Puff INHALATION 2 puff Q12HRT [facility]Q Administration Vitamin D 25 mcg 03/08/25 09:00 03/10/25 08:50 Cholecalciferol (Vitamin D3) 25 Mcg (1,000 Units) Tablet PO 25 mcg DAILY RAFIQ Administration Labs Labs: Laboratory Results - last 24 hr 03/10/25 04:45 WBC 6.2 RBC 3.47 L Hgb 9.2 L Hct 29.9 L MCV 86.2 MCH 26.5 MCHC 30.8 L RDW 13.8 Plt Count 252 MPV 10.1 Immature Gran % (Auto) 0.3 Neut % (Auto) 58.0 Lymph % (Auto) 29.1 [place] % (Auto) 8.1 Eos % (Auto) 4.2 Baso % (Auto) 0.3 Lymph # (Auto) 1.80 [place] # (Auto) 0.5 Eos # (Auto) 0.3 Baso # (Auto) 0.0 Abs Immat Gran (auto) 0.02 Absolute Neuts (auto) 3.6 Absolute Nucleated RBC 0.000 Nucleated RBC % 0.0 Sodium 139 Potassium 3.9 Chloride 110 H Carbon Dioxide 24 Anion Gap 5 BUN 10 Creatinine 0.88 Estim Creat Clear Calc 62 Estimated GFR > 60 Glucose 113 H Calcium 8.6 Total Bilirubin 0.2 AST 17 ALT 14 Alkaline Phosphatase 93 Total Protein 5.9 L Albumin 3.2 L Quality VTE Prophylaxis VTE prophylaxis: pharmacologic ordered Hospitalist MIPS Advance Care Plan I have confirmed that the patient's Advanced Care Plan is present, code status is documented, or surrogate decision maker is listed in patient medical record.: Yes Medication Reconciliation I have utilized all available resources to obtain, update and review the patients current medications (includes all prescriptions, OTC, herbals, cannabis, and nutritional supplements).: Yes
[2025-03-10 14:10] VITALS: BP 140/63; PULSE 63; RESP 18; TEMP 36.3; O2SAT 99
[2025-03-10 22:00] VITALS: BP 118/58; PULSE 67; RESP 16; TEMP 36.7; O2SAT 98
[2025-03-11 05:44] LABS: Basophils Percent Auto 0.5 % (0.2-1.2); Eosinophils Absolute Auto 0.3 K/mm3 (0-0.3); Eosinophils Percent Auto 5.1 % (0-4.4); Hematocrit 31.4 % (37.0-47.0); Hemoglobin 9.8 g/dL (12.0-15.0); Immature Granulocyte Absolute 0.02 K/mm3 (0.00-0.031); Immature Granulocyte Percent A 0.3 % (0-0.5); Lymphocytes Absolute Auto 1.76 K/mm3 (0.9-3.2); Lymphocytes Percent Auto 28.9 % (18.3-44.2); Mean Corpuscular HGB Conc 31.2 g/dl (32-36); Mean Corpuscular Hemoglobin 26.8 pg (26-34); Mean Platelet Volume 9.7 fl (7.4-10.4); Monocytes Absolute Auto 0.4 K/mm3 (0.1-0.6); Monocytes Percent Auto 6.1 % (2.6-8.5); Neutrophils Absolute Auto 3.6 K/mm3 (1.3-6.7); Neutrophils Percent Auto 59.1 % (45.5-73.1); Platelet Count Result 285 k/mm3 (150-375); Red Blood Count 3.65 M/mm3 (4.2-5.4); Red Cell Distribution Width 13.8 % (11.5-14.5); White Blood Count 6.1 K/mm3 (4.5-10.0)
[2025-03-11] MEDS: LEVOTHYROXINE SODIUM 88 MCG TABLET PO (05:44)
[2025-03-11 05:57] LABS: Alanine Aminotransferase 14 U/L (6-35); Albumin Level 3.5 g/dL (3.5-5.1); Alkaline Phosphatase 104 U/L (38-126); Anion Gap 7 mmol/L (4-12); Aspartate Amino Transferase 18 U/L (14-36); Bilirubin,Total 0.2 mg/dL (0.2-1.3); Blood Urea Nitrogen 10 mg/dL (7-17); Calcium 8.9 mg/dL (8.4-10.2); Carbon Dioxide 24 mmol/L (22-30); Chloride 108 mmol/L (98-107); Estimated CRCL calculation 57 ml/min; Estimated Glomerular Filt Rate 59; Glucose 103 mg/dL (65-110); Potassium 4.1 mmol/L (3.4-5.0); Sodium 139 mmol/L (137-145); Total Protein 6.4 g/dL (6.3-8.2)
[2025-03-11 06:54] VITALS: BP 108/50; PULSE 64; RESP 16; TEMP 36.6; O2SAT 98
[2025-03-11] MEDS: FLUTICASONE/SALMETEROL 230-21 MCG INHALER 1 PUFF 2 PUFF INHALATION (07:16)
[2025-03-11] MEDS: ASPIRIN 81 MG CHEWABLE TABLET PO (08:12)
[2025-03-11] MEDS: FOLIC ACID 1 MG TABLET PO (08:12)
[2025-03-11] MEDS: CYANOCOBALAMIN 1,000 MCG TABLET 1000 MCG PO (08:12)
[2025-03-11] MEDS: ACIDOPHILUS/BULGARICUS CHEWABLE TABLET 1 TABLET PO (08:12)
[2025-03-11] MEDS: LINEZOLID 600 MG TABLET PO (08:12)
[2025-03-11] MEDS: PANTOPRAZOLE SOD SESQUIHYDRATE 20 MG TAB PO (08:12)
[2025-03-11] MEDS: CHOLECALCIFEROL (VITAMIN D3) 25 MCG (1,000 UNITS) TABLET PO (08:12)
[2025-03-11] MEDS: ATORVASTATIN 40 MG TABLET PO (08:12)
[2025-03-11] MEDS: RIVAROXABAN 20 MG TABLET PO (08:12)
[2025-03-11] MEDS: FERROUS SULFATE 325 MG TABLET DR PO (08:12)
[2025-03-11] MEDS: FLUTICASONE PROPIONATE 0.05% NA SPR 16 GM BTL (*BKC) 2 SPRAY NASAL (08:13)
--- NOTE | 2025-03-11 09:27 | P.DS_ITS ---
DS: Admitting Diagnosis Discharge Date 03/11/25 Admitting Diagnosis Abscess DS: Discharge Diagnosis Discharge Diagnosis (1) Abscess of labia: Code(s): N76.4 - Abscess of vulva Status: Acute DS: Summary Hospital Course Reason for hospitalization: Copied from H&P 64 y/o F with PMH of hypothyroidism, hyperlipidemia, carotid artery disease s/p endarterectomy, GERD, CVA, fibromyalgia, cervical cancer s/p partial hysterectomy, DVT, and COPD presents here with wound. The patient presents here from home on 03/07 for further evaluation of possible boil near her right groin region. She reports the area is painful, swollen, and red. She initially noted the change on Saturday, she contacted her PCP who started her on Bactrim. She reports she has been on Bactrim BID for the past 2 days and has taken 5 doses. Despite antibiotic compliance, she reports the area has continued to worsen prompting her to seek evaluation today. She denies accompanying fever, chills, body aches, or drainage from wound. History of one similar wound to her buttocks but it was able to be I&D'd and uncomplicated. Initial VS at presentation: 97.7? F, HR 94, RR 18, 128/62, and 97% on RA. ED workup showed: No leukocytosis, hemoglobin 11.5, no significant electrolyte derangements, creatinine 1.13 and GFR 49, glucose 111, CRP 1.1, and ESR 63. Soft tissue ultrasound of right groin showed an irregular hypoechoic area measuring 0.7 x 0.7 x 0.6 cm which may be an area of infection with a small collection. Hospital Course: Patient was admitted for a labial abscess. Not improving with bactrim. Labial Abscess: Small abscess to right groin region with edema extending to right labia. I&D was done in the ER and sent for culture US soft tissue: Irregular hypoechoic area is seen measuring 0.7 x 0.7 x 0.6 cm which may be an area of infection with a small collection. Further evaluation advised. Initially on Bactrim b.i.d. PO x2.5 days (5 doses) without improvement. Started on clindamycin in the ED on 03/07 but still had redness and induration to lower abdomen and upper thigh and unclear improvement. Grew MRSA. Initially started on clindamycin but not clearly improving so switched to IV vancomycin and discharged with Zyvox. Planning follow up with her PCP 03/09 switched to Linezolid 600 mg PO q 12 (held Cyclobenzaprine while on Linezolid). Extensive allergy list including penicillins, levofloxacin. No prior history of MRSA. Wound culture obtained in ED post-I&D, grew MRSA. Blood cultures obtained on 03/07 -> follow, did not meet SIRS criteria. Analgesics and antipyretics p.r.n. WBC 6.8. 1. Methicillin Resis Staph Aureus M.I.C. RX --------- --- Vancomycin <=0.5 S Ciprofloxacin >=8 R Clindamycin <=0.25 S Levofloxacin 4 I Erythromycin >=8 R Gentamicin <=0.5 S Oxacillin R Oxacillin-resistant staphylococci are resistant to all currently available beta-lactam antimicrobial agents with the possible exception of ceftaroline. Tetracycline <=1 S Trimethoprim/Sulfamethoxazole >=320 R Moxifloxacin 1 I COPD (chronic obstructive pulmonary disease): hx of COPD, no current exacerbation - albuterol neb p.r.n. Status at Discharge Cognitive/behavioral status at discharge: A&Ox4 Time Spent with Patient Time attestation: Total time spent providing and/or coordinating discharge services: 58 minutes Exam Narrative: General - Awake and alert. No acute distress Eyes - PERRLA, EOM intact ENT - No thrush, No erythema Neck - No noticeable or palpable swelling Lymph Nodes - No lymphadenopathy Cardiovascular - RRR no m/r/g, no JVD Lungs: Clear to auscultation, No wheezing, use of accessory muscles, no crackles Skin - Skin warm and dry, no rashes GLOBAL RISK MANAGEMENT DIRECTOR: right mons pubis with erythema and induration, was extending to lower abdomen and upper thigh but now more localized, minimal drainage Abdomen - Normal bowel sounds, abdomen soft and nontender Extremities - No edema, cyanosis or clubbing Musculoskeletal - 5/5 strength, normal range of motion, no swollen or erythematous joints. Neurological ? Alert and oriented x 3, CN 2-12 grossly intact. Psych: Normal mood and affect DS: Data Data Completed and Pending Labs on day of discharge: Labs from last 24 hours 03/11/25 05:35 WBC 6.1 RBC 3.65 L Hgb 9.8 L Hct 31.4 L MCV 86.0 MCH 26.8 MCHC 31.2 L RDW 13.8 Plt Count 285 MPV 9.7 Immature Gran % (Auto) 0.3 Neut % (Auto) 59.1 Lymph % (Auto) 28.9 Knox % (Auto) 6.1 Eos % (Auto) 5.1 H Baso % (Auto) 0.5 Lymph # (Auto) 1.76 Knox # (Auto) 0.4 Eos # (Auto) 0.3 Baso # (Auto) 0.0 Abs Immat Gran (auto) 0.02 Absolute Neuts (auto) 3.6 Absolute Nucleated RBC 0.000 Nucleated RBC % 0.0 Sodium 139 Potassium 4.1 Chloride 108 H Carbon Dioxide 24 Anion Gap 7 BUN 10 Creatinine 0.95 Estim Creat Clear Calc 57 Estimated GFR 59 Glucose 103 Calcium 8.9 Total Bilirubin 0.2 AST 18 ALT 14 Alkaline Phosphatase 104 Total Protein 6.4 Albumin 3.5 Preliminary micro results at discharge 03/07/25 17:41 Anaerobic Culture - Preliminary Groin 03/07/25 18:36 Blood Culture - Preliminary Blood 03/07/25 18:34 Blood Culture - Preliminary Blood Discharge Plan Discharge Attending physician on discharge: Monica Aargon Consulting providers: Idris Barone; Sarah Antonio; Mariela Ferreira; Miguel Sam Discharging Clinician: Monica Aragon Anticipated Discharge Date/Time: 03/11/25 07:26 Patient Disposition: Home Activity: may shower Diet: regular Wound Care Instructions: change dressing daily Discharge Instructions: Clean wound with soap and water (prefer chlorhexadine) and apply a dry dressing. Follow up with your PCP in 1 week. If your wound stops draining and is not longer sore, you can talk to your PCP about stopping antibiotics early. You should have repeat labs in about a week: CBC, CRP, BMP Patient Instructions: Antibiotic Form, Safe Use of Anticoagulants (GEN) Patient Language: Chinese Stand Alone Forms: General Discharge Information Follow-up/Referrals: Boris Mcnair DO [Primary Care Provider] - 1 Week Discharge Medications: New linezolid [Zyvox] 600 mg tablet 600 mg PO Q12H 10 Days Qty: 20 0RF chlorhexidine gluconate 4 % liquid 1 applic topical DAILY Qty: 118 0RF Rx Instructions: Topical for wound cleaning Continued aspirin 81 mg Tablet,Chewable 81 mg PO DAILY fluticasone propionate [Flonase Allergy Relief] 50 mcg/actuation spray,suspension 2 spray intranasal DAILY Qty: 18 3RF Rx Instructions: administer into each nostril Xarelto 20 mg tablet 20 mg PO DAILY folic acid 1 mg tablet 1 mg PO DAILY ergocalciferol (vitamin D2) 1,250 mcg (50,000 unit) capsule 1,250 mcg PO MONTHLY Rx Instructions: TAKE 1 CAPSULE BY MOUTH ONCE EVERY MONTH 15 th of the month Adult 50 Plus Probiotic 4 billion cell capsule 4,000 mmu cells PO DAILY Patient Comments: CURRENTLY OUT Rx Instructions: administer with a meal ferrous sulfate [Feosol] 325 mg (65 mg iron) tablet 325 mg PO DAILY ondansetron 4 mg tablet,disintegrating 4 mg PO Q8H PRN (Reason: nausea and vomiting) Qty: 90 0RF nystatin 100,000 unit/gram cream 1 applic topical BID PRN (Reason: rash) Qty: 15 0RF atorvastatin 40 mg tablet 40 mg PO DAILY Qty: 90 1RF Rx Instructions: Take 1 tablet by mouth once daily dicyclomine 20 mg tablet 20 mg PO TID PRN (Reason: abdominal pain) Qty: 90 5RF levothyroxine [Synthroid] 88 mcg tablet 88 mcg PO DAILY Qty: 90 1RF (DME) nebulizer and compressor Device See Rx Instructions .Route Qty: 1 0RF Rx Instructions: As directed (DME) nebulizer accessories Kit See Rx Instructions .Route Qty: 1 0RF Rx Instructions: As directed cholecalciferol (vitamin D3) [Vitamin D3] 25 mcg (1,000 unit) capsule 1,000 unit PO DAILY cyanocobalamin (vitamin B-12) [Vitamin B-12] 1,000 mcg tablet 1,000 mcg PO DAILY pantoprazole 20 mg tablet,delayed release (DR/EC) 20 mg PO DAILY Qty: 90 4RF Rx Instructions: TAKE 1 TABLET BY MOUTH ONCE DAILY IN THE MORNING albuterol sulfate 2.5 mg /3 mL (0.083 %) solution for nebulization 2.5 mg inhalation Q4-6H PRN (Reason: shortness of breath or wheezing) Qty: 180 1RF Rx Instructions: Please dispense 3 ml vials. nebivolol 5 mg tablet See Rx Instructions .ROUTE .COMPLEX Qty: 90 2RF Dose Instruction: TAKE 1 TABLET BY MOUTH ONCE DAILY AT BEDTIME Rx Instructions: TAKE 1 TABLET BY MOUTH ONCE DAILY AT BEDTIME Discontinued cyclobenzaprine 10 mg tablet See Rx Instructions .ROUTE .COMPLEX Qty: 90 0RF Dose Instruction: Take 1 tablet by mouth three times daily as needed for muscle spasm Rx Instructions: Take 1 tablet by mouth three times daily as needed for muscle spasm sulfamethoxazole-trimethoprim [Bactrim DS] 800-160 mg tablet 1 tablet PO Q12H Qty: 14 0RF No Action fluticasone propion-salmeterol [Advair HFA] 230-21 mcg/actuation HFA aerosol inhaler 2 puff inhalation BID Qty: 12 11RF Rx Instructions: Rinse mouth and spit after each use. Administer with spacer alprazolam [Xanax] 0.5 mg tablet 0.5 mg PO BID PRN (Reason: anxiety) Qty: 60 0RF Other Ambulatory Orders: Basic Metabolic Panel (Routine) Timeframe: 1 Week Location: Determined by Patient Ordered By: Monica Aragon Complete Blood Count with Diff (Routine) Timeframe: 1 Week Location: Determined by Patient Ordered By: Monica Aragon CRP (Routine) Timeframe: 1 Week Location: Determined by Patient Ordered By: Monica Aragon Date of admission: 03/08/25 13:29 Primary Care Provider: Boris Mcnair Admitting Provider: Erik Tse Attending physician on admission: Monica Aragon Condition: Stable Hospitalist MIPS Heart Failure (Exclusion) Patient has history of Heart Transplant or Left Ventricular Assistive Device?: No IF YES, STOP HERE Heart Failure (Qualifier) Patient has current or prior documentation of LVEF less than or equal to 40%, or mod/servere depressed LVSF?: No IF NO, STOP HERE
== END 2025-03-11 10:00 | disposition home or self-care (01) | DRG 603 ==
LOC: ANHED 15:40 → ANH2MED 18:42
PROVIDERS: Nurse Practitioner Family; Student in an Organized Health Care Education/Training Program; Admitting Provider General Practice; Emergency Provider Physician Assistant; PCP Internal Medicine; Visit Provider Nurse Practitioner Acute Care
DX: L02.214 Cutaneous abscess of groin (principal); E78.5 Hyperlipidemia, unspecified; E03.9 Hypothyroidism, unspecified; K57.30 Diverticulosis of large intestine without perforation or abscess without bleeding; K21.9 Gastro-esophageal reflux disease without esophagitis; M79.7 Fibromyalgia; J44.9 Chronic obstructive pulmonary disease, unspecified; M19.90 Unspecified osteoarthritis, unspecified site; Z90.49 Acquired absence of other specified parts of digestive tract; I69.311 Memory deficit following cerebral infarction; Z87.891 Personal history of nicotine dependence; Z85.41 Personal history of malignant neoplasm of cervix uteri; Z86.16 Personal history of COVID-19; Z86.718 Personal history of other venous thrombosis and embolism; Z96.651 Presence of right artificial knee joint; Z98.1 Arthrodesis status; Z90.711 Acquired absence of uterus with remaining cervical stump
CPT/HCPCS: 36415; 76882; 80048; 80053; 85025; 85652; 86140; 87040; 87070; 87075; 87181; 87205; 94640; 96366; 96374; 96376; 99285; A9270; G0378; J1885; J7030

== ENCOUNTER 2025-03-22 11:36 | Outpatient (CLI) | payer MEDICARE, MEDICAID, SELFPAY ==
--- OUTSIDE RECORDS SUMMARY | 2025-03-22 11:44 | XMS_ITS | Continuity of Care Document ---
Author Organization [facility] Address [address] [place] [address] Phone Care Team Providers Care Time Stamp Assembler Name Role Phone Unavailable Unavailable Unavailable Advance Directives Directive Yes / No Effective Date File Name No Information Encounters Encounter Description Practice Location Reason(s) For Visit Diagnoses Date Provider Providers Copied on Encounter [facility], [address], [place], [place], [id number], [place] tel:[phone] [facility] No Information Mar-1 6-200 0 No Information [...]
--- OUTSIDE RECORDS SUMMARY | 2025-03-22 11:44 | XMS_ITS | Clinical Summary ---
Author Organization [facility] Address [address] [place] [address] Care Team Providers Care Physician Relations Manager Name Role Phone Boris Mcnair DO Primary Care Provider [phone] Source Comments [facility],non-owned Affiliates and Associated Physician Practices is amultiple site organization consisting of ambulatory clinics and hospital sitesin [place], [place], [place] and [place]. This disclosure is being madepursuant to the Care Everywhere program and may not contain all information available regarding this patient. Last updated 18.[facility] Allergies Active Allergy Reactions Criticality Noted Date [...] MG tablet 9 Active Cholecalciferol (VITAMIN D3) 18411 units capsule Active Active Problems Problem Noted [...] on file Legal Sex Female 5:06 AM OCC THER Gender Identity Not on file Sexual Orientation [...] - COLON CA SCREENING 1961 MAMMOGRAM 1961 HIV SCREENING 1976 HEPATITIS C SCREENING 05/09/1979 DTAP/TDAP/TD VACCINES (1 - Tdap) 1980 PNEUMOCOCCAL VACCINE 50+ (1 of 2 - PCV) 1980 PAP SMEAR 1982 LUNG CANCER SCREENING 2011 ZOSTER VACCINE (1 of 2) 2011 SCREENING FOR DIABETES 02/07/2021 02/07/2018 Respiratory Syncytial Virus (RSV) Vaccine Pt: or over 60 yrs (1 - Risk 60-74 years 1-dose series) 2021 COVID-19 VACCINE (1 - 2023-2 5 season) 2024 DEPRESSION SCREENING 09/16/2024 MEDICARE AWV CALENDAR YEAR 2024 INFLUENZA VACCINE (Season Ended) 2025 HEPATITIS B VACCINE Aged Out No longe [...] - 26 mg/dL 02/07/2018 1:22 PM CDT [facility] Creatinine 1.0 0.6 - 1.2 [...] DO LAB - CHEMISTRY ORDERABLES Final Result [facility] [address] [place] [address], [facility] [phone] from Last 3 Months or Most Recently Relevant to Health Maintenance Insurance MEDICARE [facility] MANAGED MEDICARE ADV [facility] MANAGED MEDICARE ADV MEDICAID [place] SELF PAY NO INSURANCE Member Subscriber Plan / Payer (Ef fective for All Dates) Name:Gege Gutierres Member ID:Not on file Relation to Subscriber:Not on file Name:NENITAGEGE Subscriber ID:Not on file (Home) Address: [address] [place] [address] Payer ID:Not on file Group ID:Not on file Type:Self Pay Address: [place], [place] MEDICARE MEDICAID - OUT OF STATE [employer] MANAGED MEDICARE ADV [facility] MANAGED MEDICARE ADV MEDICAID [place] [facility] MANAGED MEDICARE ADV [place] [facility] MANAGED MEDICARE ADV MEDICAID [place] [facility] MANAGED MEDICARE ADV Advance Directives * Full Code (Latest Code Status on File) Date Activated Date Inactivated Comments 02/15/2018 8:10 AM 02/15/2018 12:04 PM * Full Code Date Activated Date Inactivated Comments 02/14/2018 7:57 AM 02/14/2018 6:16 PM Care Teams Physician Relations Manager Relationship Specialty Start Date End Date Boris Mcnair DO [address] [place] [address] [facility] - General 04/07/19
--- OUTSIDE RECORDS SUMMARY | 2025-03-22 11:44 | XMS_ITS | Referral Summary ---
Author Organization [facility] Address [address] [place] [address] Care Team Providers Care Call Circuit Worker Name Role Phone Dominic Fernando MD Primary Care Provider [phone] Allergies Active Allergy Reactions Criticality Noted Date [...] mcg tablet Take 112 mcg by mouth client service representative before breakfast. 07/21/2018 Active XARELTO 20 mg [...] (09/24/2018): Added automatically from request for surgery [id number] Social History Tobacco Use Types Packs/Day Years Used Date Smoking Tobacco: Every Day Cigarettes Smokeless Tobacco: Current Comments:quitting now, 1 pac k last 2-3 days Alcohol Use Standard Drinks/Week Comments No 0 (1 standard drink = 0.6 oz pur e alcohol) Comments No Sex and Gender Information Value Date Recorded Sex Assigned at Not on file Legal Sex Female 11:26 PM HAND DRILLER Gender Identity Not on file Sexual Orientation Not on file Last Filed Vital Signs Vital Sign Reading Time Taken Comments Blood Pressure 98/64 10/02/2019 8:21 AM HAND DRILLER Pulse 55 10/02/2019 8:21 AM HAND DRILLER Temperature 37.1 C (98.8 F) 11/24/2018 12:06 PM CDT Respiratory Rate 16 11/24/2018 12:06 PM CDT Oxygen Saturation 98% 11/24/2018 12:06 PM CDT Inhaled Oxygen Concentration - - Weight 80.4 kg (177 lb 3.2 oz) 10/02/2019 8:21 A M HAND DRILLER Height 165.1 cm (5' 5) 10/02/2019 8:21 AM HAND DRILLER Body Mass Index 29.49 10/02/2019 8:21 AM HAND DRILLER Plan of Treatment Not on file Medical Devices Implanted Type Area Woven Wood Shade Assembler Device Identifier Shelf Expiration Date Model / Serial / Lot [employer] Nephew[employer]Rich[employer]/Or tho [id number] Legion 9mm Dished Knee 3-4 Insert Tibial Xlpe - [id number] Implanted:Qty: 1 on 11/11/2018 by Kemal Wright MD at [facility] Right: Knee [employer]Or tho 08/11/2028 [id number] / / [id number] [employer]hew[employer]Rich[employer]/Or tho [id number] 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 Taper Knee Right 4 Baseplate Tibial Titanium - [id number] Implanted:Qty: 1 on 11/11/2018 by Kemal Wright MD at [facility] Right: Knee [employer]Rich[employer]/Or tho 07/18/2028 [id number] / / [id number] Size 4 Right Cruciate Retaining Legion Oxinium Femoral Componenet Implanted:Qty: 1 on 11/11/2018 by Kemal Wright MD at [facility] Right: Knee Islas [employer] Nephew [id number] 01/06/2028 [id number] / / [id number] [employer] [id number] Palacos R+G High Viscosity Cement Bone Gentamicin Arthroplasty - [id number] Implanted:Qty: 1 on 11/11/2018 by Kemal Wright MD at [facility] Right: Knee [employer] 04/15/2021 [id number] / / [id number] Insurance MEDICARE [facility] MEDICARE [employer] Advance Directives For more information, please contact: [phone] * Full Code (Latest Code Status on File) Date Activated Date Inactivated Comments 11/14/2018 1:26 PM 11/15/2018 7:15 PM * Full Code Date Activated Date Inactivated Comments 11/13/2018 10:00 AM 11/14/2018 1:16 PM per patient request * Full Code Date Activated Date Inactivated Comments 11/11/2018 7:40 PM 11/12/2018 8:26 PM Care Teams Call Circuit Worker Relationship Specialty Start Date End Date Dominic Fernando MD [address] [facility] [address] [place] [address] PCP - General 08/13/17
--- OUTSIDE RECORDS SUMMARY | 2025-03-22 11:44 | XMS_ITS | Clinical Summary ---
Author Organization [facility] Address [address] [place] [address] Care Team Providers Care Access Clinician Name Role Phone Eris Vu MD Primary Care Provider [phone] Allergies Active Allergy Reactions Criticality Noted Date Comments Adhesive Tape-Silicones Other (See Comments) Medium 08/19/2014 Blisters Codeine Shortness of Breath/Wheezing High 08/19/2014 Avdjpomnc-C-Jaziqjv-Se jun-Brom Other (See Comments) Low 08/19/2014 Alcohol- [...] TABLET BY MOUTH ONCE DAILY 06/15/2020 Active Xarelto 20 mg Tablet Take 1 tablet by mouth once daily 90 Tablet 3 12/10/2024 Active folic acid (FOLVITE) 1 mg tablet Take 1 tablet by mouth once daily 90 Tablet 01/18/2025 Active Active Problems Problem Noted Date Diagnosed Date 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 01/06/2020 Diverticulitis 03/24/2018 Secondary hypercoagulable state 11/15/2017 Tobacco use 11/15/2017 Encounters Date Type Department Care Team Description 03/09/2025 External Device Data [facility] ABSTRACTION Provider, Abstract 02/09/2025 External Device Data [facility] ABSTRACTION Provider, Abstract 02/03/2025 External Device Data [facility] ABSTRACTION Provider, Abstract 02/02/2025 External Device Data [facility] ABSTRACTION Provider, Abstract 01/16/2025 Refill [facility] - [place] [address] [address] Chris Owens MD from Last 3 Months [...] on file Legal Sex Female 12:44 PM INTER COM INSTALLER Gender Identity Not on file Sexual [...] 10:49 AM CDT Height 162.6 cm (5' 4) 02/23/2022 11:52 AM CDT Body Mass Index 30.9 02/23/2022 11:52 AM CDT Plan of Treatment Upcoming Encounters Date Type Department Care Team (Late st Contact Info) Description 06/07/2025 1:00 PM CDT Office Visit [facility] - [place] [address] [facility] [address] [place] [address] Chris Owens MD [address] [employer] [address] [place] [address] Health Maintenance Due Date Last Done Comments Pre-Diabetes and Diabetes Screening 1961 DTAP/TDAP/TD VACCINES (1 - Tdap) 1980 FIT-DNA Q 3 years 2006 FIT/FOBT Q 1 year 2006 Flex Sig/CT Colonography Q 5 years 2006 ZOSTER VACCINE (1 of 2) 2011 Lung Cancer Screening 07/15/2020 07/15/2019 INFLUENZA VACCINE (#1) 2025 BREAST CANCER SCREENING 12/17/2025 12/18/19 25, 02/17/2024, 09/03/2023, Additional history exists COLORECTAL SCREENING 10/28/2030 10/28/2020, 05/31/20 Colorectal Cancer Screening 10/28/2030 RSV VACCINE (60+ or ) (1 - 1-dose 75+ series) 2036 Procedures Procedure Name Priority Date/Time Associated Diagnosis Comments MAMMO SCREENING BILAT Routine 12/17/2024 10:[address] LUNG SCREENING (LDCT BASELINE OR [...] Most Recently Relevant to Health Maintenance Insurance [facility] DUAL COMPLETE PPO [facility] [id number] Care Teams Access Clinician Relationship Specialty Start Date End Date Eris Vu MD PCP - General Family Practice 02/21/23
--- OUTSIDE RECORDS SUMMARY | 2025-03-22 11:44 | XMS_ITS | Clinical Summary ---
Author Organization [facility] Address [address] [place] [address] Care Team Providers Care Conveyor Worker Name Role Phone Dominic Fernando MD Primary Care Provider [phone] Allergies Active Allergy Reactions Criticality Noted Date [...] mcg tablet Take 112 mcg by mouth insurance plan specialist before breakfast. 07/21/2018 Active XARELTO 20 mg [...] (09/24/2018): Added automatically from request for surgery [id number] Surgical History Surgery Date Site/Laterality Comments CHOLECYSTECTOMY [...] on file Legal Sex Female 11:26 PM PRIMARY SCHOOL TEACHER LIBRARIAN Gender Identity Not on file Sexual Orientation Not on file Obstetrics History Last Filed Vital Signs Vital Sign Reading Time Taken Comments Blood Pressure 98/64 10/02/2019 8:21 AM PRIMARY SCHOOL TEACHER LIBRARIAN Pulse 55 10/02/2019 8:21 AM PRIMARY SCHOOL TEACHER LIBRARIAN Temperature 37.1 C (98.8 F) 11/24/2018 12:06 PM CDT Respiratory Rate 16 11/24/2018 12:06 PM CDT Oxygen Saturation 98% 11/24/2018 12:06 PM CDT Inhaled Oxygen Concentration - - Weight 80.4 kg (177 lb 3.2 oz) 10/02/2019 8:21 A M PRIMARY SCHOOL TEACHER LIBRARIAN Height 165.1 cm (5' 5) 10/02/2019 8:21 AM PRIMARY SCHOOL TEACHER LIBRARIAN Body Mass Index 29.49 10/02/2019 8:21 AM PRIMARY SCHOOL TEACHER LIBRARIAN Plan of Treatment Not on file Medical Devices Implanted Type Area Process Manufacturing Engineer Device Identifier Shelf Expiration Date Model / Serial / Lot [employer] Nephew[employer]Rich[employer]/Or tho [id number] Legion 9mm Dished Knee 3-4 Insert Tibial Xlpe - [id number] Implanted:Qty: 1 on 11/11/2018 by Kemal Wright MD at [facility] Right: Knee [employer] tho 08/11/2028 [id number] / / [id number] [employer]Or tho [id number] 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 Taper Knee Right 4 Baseplate Tibial Titanium - [id number] Implanted:Qty: 1 on 11/11/2018 by Kemal Wright MD at [facility] Right: Knee [employer]Or tho 07/18/2028 [id number] / / [id number]- Size 4 Right Cruciate Retaining Legion Oxinium Femoral Componenet Implanted:Qty: 1 on 11/11/2018 by Kemal Wright MD at [facility] Right: Knee [employer]hew [id number] 01/06/2028 [id number] / / [id number] [employer] [id number] Palacos R+G High Viscosity Cement Bone Gentamicin Arthroplasty - [id number] Implanted:Qty: 1 on 11/11/2018 by Kemal Wright MD at [facility] Right: Knee [employer] 04/15/2021 [id number] / / [id number] Insurance [facility]ARE [facility] Advance Directives For more information, please contact: [phone] * Full Code (Latest Code Status on File) Date Activated Date Inactivated Comments 11/14/2018 1:26 PM 11/15/2018 7:15 PM * Full Code Date Activated Date Inactivated Comments 11/13/2018 10:00 AM 11/14/2018 1:16 PM per patient request * Full Code Date Activated Date Inactivated Comments 11/11/2018 7:40 PM 11/12/2018 8:26 PM Care Teams Conveyor Worker Relationship Specialty Start Date End Date Dominic Fernando MD [address] [facility] [address] [place] [address] [facility] [place] [id number] PCP - General 08/13/17
--- OUTSIDE RECORDS SUMMARY | 2025-03-22 11:44 | XMS_ITS | Clinical Summary ---
Author Organization [facility] Address [address] [place] [address] Care Team Providers Care Planning Aide Name Role Phone Eris Vu MD Primary Care Provider [phone] Allergies Active Allergy Reactions Criticality Noted Date [...] this topic Medical Devices Implanted Type Area Outside Sales Manager Device Identifier Shelf Expiration Date Model / Serial / Lot Tecnis 1-Piece Iol Implanted:Qty: 1 on 06/08/2024 by Jadon Vu MD at [facility] Left: Eye [employer] 10/27/2026 / [id number] / Insurance [id number] MEDICAID Care Teams Planning Aide Relationship Specialty Start Date End Date Eris Vu MD [address] [place] [address] PCP - General FAMILY PRACTICE 06/05/24
[2025-03-22 11:55] LABS: Hematocrit 35.5 % (37.0-47.0); Hemoglobin 11.2 g/dL (12.0-15.0); Immature Granulocyte Percent A 0.8 % (0-0.5); Lymphocytes Absolute Auto 1.72 K/mm3 (0.9-3.2); Mean Corpuscular HGB Conc 31.5 g/dl (32-36); Mean Corpuscular Hemoglobin 26.6 pg (26-34); Mean Corpuscular Volume 84.3 fl (80-100); Nucleated Red Blood Cells Absolute Auto 0.000 K/mm3 (0.0-0.012); Nucleated Red Blood Cells Perc 0.0 % (0.0-0.2); Platelet Count Result 252 k/mm3 (150-375); Red Blood Count 4.21 M/mm3 (4.2-5.4); White Blood Count 7.5 K/mm3 (4.5-10.0)
[2025-03-22 12:11] LABS: Anion Gap 9 mmol/L (4-12); Blood Urea Nitrogen 8 mg/dL (7-17); CRP < 0.5 mg/dL (<1.0); Calcium 9.5 mg/dL (8.4-10.2); Carbon Dioxide 25 mmol/L (22-30); Chloride 106 mmol/L (98-107); Estimated Glomerular Filt Rate > 60; Glucose 108 mg/dL (65-110); Potassium 3.7 mmol/L (3.4-5.0); Sodium 140 mmol/L (137-145)
== END 2025-03-22 11:37 | disposition home or self-care (01) ==
PROVIDERS: PCP Internal Medicine; Visit Provider Nurse Practitioner Acute Care
DX: N76.4 Abscess of vulva (principal)
CPT/HCPCS: 36415; 80048; 85025; 86140

== ENCOUNTER 2025-04-27 13:20 | Outpatient (CLI) | payer MEDICARE, MEDICAID, SELFPAY ==
--- OUTSIDE RECORDS SUMMARY | 2025-04-27 13:38 | XMS_ITS | Clinical Summary ---
Author Organization [facility] Address [address] [place] [address] Care Team Providers Care Executive Secretary Name Role Phone Eris Vu MD Primary Care Provider [phone] Allergies Active Allergy Reactions Criticality Noted Date Comments Adhesive Tape-Silicones Other (See Comments) Medium 08/19/2014 Blisters Codeine Shortness of Breath/Wheezing High 08/19/2014 Twecnonld-E-Ratkinw-Se jun-Brom Other (See Comments) Low 08/19/2014 Alcohol- [...] by mouth once daily 90 Tablet 5 04/13/20 25 Discontinued Active Problems Problem Noted Date Diagnosed Date 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 01/06/2020 Diverticulitis 03/24/2018 Secondary hypercoagulable state 11/15/2017 Tobacco use 11/15/2017 Encounters Date Type Department Care Team Description 04/20/2025 External Device Data STL ABSTRACTION Provider, Abstract 04/13/2025 [facility] Oncology and Hematology - [place] [address] [place] [address] Chris Owens MD 03/09/2025 External Device Data STL ABSTRACTION Provider, [...] on file 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 Gender Identity Not on file Sexual [...] Description 06/07/2025 1:00 PM CDT Office Visit [facility] Oncology and Hematology - [place] [address] [facility] [address] [place] [address] Chris Owens MD [address] [facility] [address] [place] [address] Health Maintenance Due Date Last [...] Most Recently Relevant to Health Maintenance Insurance [address] [place] [id number] Care Teams Executive Secretary Relationship Specialty Start Date End Date Eris Vu MD PCP - General Family Practice 02/21/23
--- OUTSIDE RECORDS SUMMARY | 2025-04-27 13:38 | XMS_ITS | Clinical Summary ---
Author Organization [facility] [employer] Address [address] [facility] [place] [address] Care Team Providers Care Svp Marketing Name Role Phone Boris Mcnair DO Primary Care Provider [phone] Source Comments [facility],non-owned Affiliates and Associated Physician Practices is amultiple site organization consisting of ambulatory clinics and hospital sitesin [place], [place], [place] and [place]. This disclosure is being madepursuant to the Care Everywhere program and may not contain all information available regarding this patient. Last updated 18.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 Gender Identity Not on file Sexual [...] MEDICARE AWV CALENDAR YEAR 2024 INFLUENZA VACCINE (#1) 2025 HEPATITIS B VACCINE Aged Out No [...] - 26 mg/dL 02/07/2018 1:22 PM CDT [facility] Creatinine 1.0 0.6 - [...] DO LAB - CHEMISTRY ORDERABLES Final Result [facility] [address] [place] [address], [facility] [phone] from Last 3 Months or Most Recently Relevant to Health Maintenance Insurance MEDICARE [facility] MANAGED MEDICARE ADV [facility] MANAGED MEDICARE ADV MEDICA[place] SELF [place]Y NO INSURANCE Member Subscriber Plan / Payer (Ef fective for All Dates) Name:Gege Gutierres Member ID:Not on file Relation to Subscriber:Not on file Name:NENITAGEGE Subscriber ID:Not on file (Home) Address: [address] [place] [address] Payer ID:Not on file Group ID:Not on file Type:Self Pay Address: [place], [place] MEDICARE MEDICAID - OUT OF STATE [employer] MANAGED MEDICARE ADV [facility] MANAGED MEDICARE ADV [place] [facility] MANAGED MEDICARE ADV [place] [facility] MANAGED MEDICARE ADV [place] [facility] MANAGED MEDICARE ADV Advance Directives * Full Code (Latest Code Status on File) Date Activated Date Inactivated Comments 02/15/2018 8:10 AM 02/15/2018 12:04 PM * Full Code Date Activated Date Inactivated Comments 02/14/2018 7:57 AM 02/14/2018 6:16 PM Care Teams Svp Marketing Relationship Specialty Start Date End Date Boris Mcnair DO [address] [place] [address] [facility] - General 04/07/19
--- OUTSIDE RECORDS SUMMARY | 2025-04-27 13:38 | XMS_ITS | Clinical Summary ---
Author Organization [facility] Address [address] [place] [address] Care Team Providers Care Putty Patcher Name Role Phone Dominic Fernando MD Primary Care Provider [phone] Allergies Active Allergy Reactions Criticality Noted Date [...] mcg tablet Take 112 mcg by mouth die try out worker stamping before breakfast. 07/21/2018 Active XARELTO 20 mg [...] (09/24/2018): Added automatically from request for surgery [id number] Surgical History Surgery Date Site/Laterality Comments CHOLECYSTECTOMY NECK SURGERY KNEE ARTHROSCOPY ROTATOR CUFF REPAIR CAROTID ENDARTERECTOMY BREAST SURGERY biopsy EYE SURGERY tumors removed TUBAL LIGATION HYSTERECTOMY partial Medical History Medical History Date Comments Stroke (HCC) History of blood clots Poor circulation Thyroid disease Hiatal hernia H/O: hysterectomy Hyperlipidemia Emphysema of lung GERD (gastroesophageal reflux disease) Hypothyroidism Cervical cancer [...] on file Legal Sex Female 11:26 PM 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 Gender Identity Not on file Sexual Orientation Not on file Obstetrics History Last Filed Vital Signs Vital Sign Reading Time Taken Comments Blood Pressure 98/64 10/02/2019 8:21 AM 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 Pulse 55 10/02/2019 8:21 AM 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 Temperature 37.1 C (98.8 F) 11/24/2018 12:06 PM CDT Respiratory Rate 16 11/24/2018 12:06 PM CDT Oxygen Saturation 98% 11/24/2018 12:06 PM CDT Inhaled Oxygen Concentration - - Weight 80.4 kg (177 lb 3.2 oz) 10/02/2019 8:21 A M 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 Height 165.1 cm (5' 5) 10/02/2019 8:21 AM 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 Body Mass Index 29.49 10/02/2019 8:21 AM 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 Plan of Treatment Not on file Medical Devices Implanted Type Area Breakfast Cook Device Identifier Shelf Expiration Date Model / Serial / Lot Islas [employer] Nephew/Richco/Or tho [id number] Legion 9mm Dished Knee 3-4 Insert Tibial Xlpe - [id number] Implanted:Qty: 1 on 11/11/2018 by Kemal Wright MD at [facility] Right: Knee [employer] Nephew/Richco/Or tho 08/11/2028 [id number] / / [id number] Islas [employer] Nephew/Richco/Or tho [id number] 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 Taper Knee Right 4 Baseplate Tibial Titanium - [id number] Implanted:Qty: 1 on 11/11/2018 by Kemal Wright MD at [facility] Right: Knee [employer] Nephew/Richco/Or tho 07/18/2028 [id number] / / [id number]- Size 4 Right Cruciate Retaining Legion Oxinium Femoral Componenet Implanted:Qty: 1 on 11/11/2018 by Kemal Wright MD at [facility] Right: Knee Islas [employer] Nephew [id number] 01/06/2028 [id number] / / [id number] [employer] [id number] Palacos R+G High Viscosity Cement Bone Gentamicin Arthroplasty - [id number] Implanted:Qty: 1 on 11/11/2018 by Kemal Wright MD at [facility] Right: Knee [employer] 04/15/2021 [id number] / / [id number] Insurance MEDICARE [facility] MEDICARE [facility] Advance Directives For more information, please contact: [phone] * Full Code (Latest Code Status on File) Date Activated Date Inactivated Comments 11/14/2018 1:26 PM 11/15/2018 7:15 PM * Full Code Date Activated Date Inactivated Comments 11/13/2018 10:00 AM 11/14/2018 1:16 PM per patient request * Full Code Date Activated Date Inactivated Comments 11/11/2018 7:40 PM 11/12/2018 8:26 PM Care Teams Putty Patcher Relationship Specialty Start Date End Date Dominic Fernando MD [address] [facility] [address] [place] [phone] PCP - General 08/13/17
--- OUTSIDE RECORDS SUMMARY | 2025-04-27 13:38 | XMS_ITS | Clinical Summary ---
Author Organization [facility] Address [address] [place] [address] Care Team Providers Care Graphics Editor Name Role Phone Eris Vu MD Primary Care Provider [phone] Allergies Active Allergy Reactions Criticality Noted Date [...] this topic Medical Devices Implanted Type Area Commercial Loan Administrator Device Identifier Shelf Expiration Date Model / Serial / Lot Tecnis 1-Piece Iol Implanted:Qty: 1 on 06/08/2024 by Jadon Vu MD at [facility] Left: Eye [employer] 10/27/2026 / [id number] / Insurance [id number] [place] [address] MEDICAID Care Teams Graphics Editor Relationship Specialty Start Date End Date Eris Vu MD [address] [place] [address] PCP - General FAMILY PRACTICE 06/05/24
[2025-04-27 13:44] LABS: Hematocrit 35.4 % (37.0-47.0); Hemoglobin 11.0 g/dL (12.0-15.0)
[2025-04-27 14:02] LABS: Magnesium 2.0 mg/dL (1.6-2.3)
[2025-04-27 15:27] LABS: Iron 44 ug/dL (37-170)
[2025-04-27 15:37] LABS: Percent Iron Saturation 10 % (20-50)
[2025-04-27 16:04] LABS: Ferritin 5.35 ng/mL (11.1-264)
[2025-04-30 07:09] LABS: Calprotectin, Fecal 833 ug/g (0-120)
== END 2025-04-27 13:21 | disposition home or self-care (01) ==
PROVIDERS: PCP Internal Medicine; Visit Provider Nurse Practitioner Family
DX: K52.9 Noninfective gastroenteritis and colitis, unspecified (principal); D64.9 Anemia, unspecified; R25.2 Cramp and spasm
CPT/HCPCS: 36415; 82728; 83540; 83550; 83735; 83993; 85014; 85018

== ENCOUNTER 2025-04-29 08:41 | Outpatient (CLI) | payer MEDICARE, MEDICAID, SELFPAY ==
--- OUTSIDE RECORDS SUMMARY | 2025-04-29 08:46 | XMS_ITS | Clinical Summary ---
Author Organization [facility] [employer] Address [address] [place] [address] Care Team Providers Care Cardiac Catheterization Technologist Name Role Phone Boris Mcnair DO Primary Care Provider [phone] Source Comments [facility],non-owned Affiliates and Associated Physician Practices is amultiple site organization consisting of ambulatory clinics and hospital sitesin [place], [place], [place] and [place]. This disclosure is being madepursuant to the Care Everywhere program and may not contain all information available regarding this patient. 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 Gender Identity Not on file [...] - 26 mg/dL 02/07/2018 1:22 PM CDT [facility] Creatinine 1.0 0.6 - [...] - CHEMISTRY ORDERABLES Final Result [facility] [address] [place] [address], [facility] [phone] from Last 3 Months or Most Recently Relevant to Health Maintenance Insurance MEDICARE [facility] MANAGED MEDICARE ADV [facility] MANAGED MEDICARE ADV MEDICAID [place] SELF PAY NO INSURANCE Member Subscriber Plan / Payer (Ef fective for All Dates) Name:Gege Gutierres Member ID:Not on file Relation to Subscriber:Not on file Name:NENITAGEGE Subscriber ID:Not on file (Home) Address: [address] [place] [address] Payer ID:Not on file Group ID:Not on file Type:Self Pay Address: [place], [place] MEDICARE MEDICAID - OUT OF STATE [employer] MANAGED MEDICARE ADV [facility] MANAGED MEDICARE ADV MEDICAID [place] [facility] MANAGED MED[facility]ARE ADV [place]ID [place] [facility] MANAGED MEDICARE ADV [place]ICAID [place] [facility] MANAGED MEDICARE ADV Advance Directives * Full Code (Latest Code Status on File) Date Activated Date Inactivated Comments 02/15/2018 8:10 AM 02/15/2018 12:04 PM * Full Code Date Activated Date Inactivated Comments 02/14/2018 7:57 AM 02/14/2018 6:16 PM Care Teams Cardiac Catheterization Technologist Relationship Specialty Start Date End Date Boris Mcnair DO [address] [place] [address] [facility] - General 04/07/19
--- OUTSIDE RECORDS SUMMARY | 2025-04-29 08:47 | XMS_ITS | Clinical Summary ---
Author Organization [facility] Address [address] [place] [address] Care Team Providers Care Machine Biller Name Role Phone Dominic Fernando MD Primary Care Provider [phone] Allergies Active Allergy Reactions Criticality Noted Date [...] mcg tablet Take 112 mcg by mouth assembler wire group before breakfast. 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 Gender Identity Not on file Sexual Orientation Not on file Obstetrics History Last Filed Vital Signs Vital Sign Reading Time Taken Comments Blood Pressure 98/64 10/02/2019 8:21 AM TREATING ENGINEER Pulse 55 10/02/2019 8:21 AM TREATING ENGINEER Temperature 37.1 C (98.8 F) 11/24/2018 12:06 PM CDT Respiratory Rate 16 11/24/2018 12:06 PM CDT Oxygen Saturation 98% 11/24/2018 12:06 PM CDT Inhaled Oxygen Concentration - - Weight 80.4 kg (177 lb 3.2 oz) 10/02/2019 8:21 A M TREATING ENGINEER Height 165.1 cm (5' 5) 10/02/2019 8:21 AM TREATING ENGINEER Body Mass Index 29.49 10/02/2019 8:21 AM TREATING ENGINEER Plan of Treatment Not on file Medical Devices Implanted Type Area Lead Military Analyst Device Identifier Shelf Expiration Date Model / Serial / Lot Islas [employer] Nephew/Richco/Or tho [id number] Legion 9mm Dished Knee 3-4 Insert Tibial Xlpe - [id number] Implanted:Qty: 1 on 11/11/2018 by Kemal Wright MD at [facility] Right: Knee [employer]Or tho 08/11/2028 [id number] / / [id number] Is[employer]hew[employer]Rich[employer]Or tho [id number] 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 Taper Knee Right 4 Baseplate Tibial Titanium - [id number] Implanted:Qty: 1 on 11/11/2018 by Kemal Wright MD at [facility] Right: Knee [employer]Or tho 07/18/2028 [id number] / / [id number]- Size 4 Right Cruciate Retaining Legion Oxinium Femoral Componenet Implanted:Qty: 1 on 11/11/2018 by Kemal Wright MD at [facility] Right: Knee [employer]las [employer]hew [id number] 01/06/2028 [id number] / / [id number] [employer] [id number] Palacos R+G High Viscosity Cement Bone Gentamicin Arthroplasty - [id number] Implanted:Qty: 1 on 11/11/2018 by Kemal Wright MD at [facility] Right: Knee [employer] 04/15/2021 [id number] / / [id number] Insurance MEDICARE [facility] MEDICARE [facility] Advance Directives For more information, please contact: [phone] * Full Code (Latest Code Status on File) Date Activated Date Inactivated Comments 11/14/2018 1:26 PM 11/15/2018 7:15 PM * Full Code Date Activated Date Inactivated Comments 11/13/2018 10:00 AM 11/14/2018 1:16 PM per patient request * Full Code Date Activated Date Inactivated Comments 11/11/2018 7:40 PM 11/12/2018 8:26 PM Care Teams Machine Biller Relationship Specialty Start Date End Date Dominic Fernando MD [address] [facility] [address] [facility] [address] [place] [phone] PCP - General 08/13/17
--- OUTSIDE RECORDS SUMMARY | 2025-04-29 08:47 | XMS_ITS | Patient Health Record ---
Author Organization [facility] Address [address], [place] [address] Care Team Providers Care Risk Mgr Name Role Phone Tanner Reid MD Primary [...] finger, initial encounter (S63.631A) 023 Active confirmed [id number] Problem Fall on same level from slipping, tripping and stumbling without subsequent striking against object, initial encounter (W01.0XXA) 023 Active confirmed [id number] Problem Encounter for other specified surgical aftercare (Z48.89) Active confirmed Postoperative c are ([id number]) PLAN OF TREATMENT No Information Insurance Providers Payer Name Payer Address Payer Phone Subscriber Number Group Number Insured Name Patient Relationship to Insured Coverage Start Date Coverage End Date UHC Medicare Advantage PPO [address] [address] [place] [address] [id number] Gege Vidal Self - patient is the insured MEDICAL (GENERAL) HISTORY Medical History History ICD Code Hypothyroidism Surgical History Surgery Date(Month/Year) right knee arthroscopy tubal ligation tonsillectomy hysterectomy neck right knee arthroscopy shoulder arthroscopy, right x2
--- OUTSIDE RECORDS SUMMARY | 2025-04-29 08:47 | XMS_ITS | Clinical Summary ---
Author Organization [facility] Address [address] [place] [address] Care Team Providers Care Auditing Coder Name Role Phone Eris Vu MD Primary Care Provider [phone] Allergies Active Allergy Reactions Criticality Noted Date [...] this topic Medical Devices Implanted Type Area Lawnmower Mechanic Device Identifier Shelf Expiration Date Model / Serial / Lot Tecnis 1-Piece Iol Implanted:Qty: 1 on 06/08/2024 by Jadon Vu MD at [facility] Left: Eye [employer] 10/27/2026 / [id number] / Insurance [id number] MEDICAID Care Teams Auditing Coder Relationship Specialty Start Date End Date Eris Vu MD [address] [place] [address] PCP - General FAMILY PRACTICE 06/05/24
--- OUTSIDE RECORDS SUMMARY | 2025-04-29 08:47 | XMS_ITS | Clinical Summary ---
Author Organization [facility] Address [address] [place] [address] Care Team Providers Care Saturation Diver Name Role Phone Eris Vu MD Primary Care Provider [phone] Allergies Active Allergy Reactions Criticality Noted Date Comments Adhesive Tape-Silicones Other (See Comments) Medium 08/19/2014 Blisters Codeine Shortness of Breath/Wheezing High 08/19/2014 Kdkgccsvv-F-Yajrnwr-Se jun-Brom Other (See Comments) Low 08/19/2014 Alcohol- [...] Device Data STL ABSTRACTION Provider, Abstract 04/13/2025 [facility] Oncology and Hematology - [place] [address] [place] [address] Chris Owens MD 03/09/2025 External Device Data [...] on file 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 [address] [place] [address] Chris Owens MD [address] [facility] [address] [place] [address] Health Maintenance Due Date Last [...] Recently Relevant to Health Maintenance Insurance [address] [place] [id number] Care Teams Saturation Diver Relationship Specialty Start Date End Date Eris Vu MD PCP - General Family Practice 02/21/23
--- OUTSIDE RECORDS SUMMARY | 2025-04-29 08:47 | XMS_ITS | Patient Health Record ---
Author Organization [facility] [employer] [place] ([address]) Address [address] [place] [address] Care Team Providers Care Welder Fitter Arc Name Role Phone Boris Mcnair Primary Care Provider UnavailBreann Wing Unavailable [phone] Eris Vu Unavailable Unavailable Franky Gray Unavailable [phone] Allergies Allergen (clinical drug ingredient) Drug/Non Drug Allergy documented on EMR Reaction Allergy Type Onset Date Status codeine Codeine anaphylaxis Drug Allergy Activ e hydromorphone HYDROmorphone rash Drug Allergy Active Latex Latex rash Allergy Active levofloxacin levoFLOXacin rash Drug Allergy A ctive Results Component Value Reference Range Notes -Metanephrines, Frac., Pl. F ree Reviewed date:01/04/2025 03:24:04 PM Interpretation:Normal Performing Lab:[facility] [id number], Phone - [phone], Director - Lyndon Notes/Report: and Drug Administration. by [facility]. It has not been cleared or approved by the Food was developed and its performance characteristics determined Test(s) 525515-Nuofsswysnbvsfo, Pl; 847375-Obfgznhvkbfk, Pl Normetanephrine, Pl 142.7 0.0-285.2 pg/mL Metanephrine, Pl <25.0 0.0-88.0 pg/mL -Histamine Determination, Ur ine Reviewed date:12/30/2024 04:37:39 PM Interpretation:Normal Performing Lab:[address] [id number], Phone - [phone], Director - [facility] Notes/Report: by the Food and Drug Administration. determined by [facility]. It has not been cleared or approved This test was developed and its performance characteristics Test(s) 588899-Tyczwvygj,ug/L,U Histamine,ug/L,U 14 Not Estab. ug/L Histamine,ug/24hr,U 14 0-65 ug/24 hr -HVA (Homovanillic Acid), 24 -Hour Urine Reviewed date:01/04/2025 07:56:37 AM Interpretation:Normal Performing Lab:[address] [id number], Phone - [phone], Director - [facility] Notes/Report: Test(s) 305066-5-NFJS, Urine; 526774-BCC, Urine was developed and its performance characteristics determined by [facility]. It has not been cleared or approved by the Food and Drug Administration. HVA, Urine 3.5 Undefined mg/L This test was developed and its performance characteristics determined by [facility]. It has not been cleared or approved by the Food and Drug Administration. HVA, Urine, 24hr 3.5 0.0-10.0 mg/24 hr -VMA (Vanillylmandelic Acid) , 24-Hour Urine Reviewed date:01/04/2025 07:56:42 AM Interpretation:Normal Performing Lab:[address] [id number], Phone - [phone], Director [facility] Notes/Report: Test(s) 288051-6-XCZJ, Urine; 648031-DWZ, Urine was developed and its performance characteristics determined by [facility]. It has not been cleared or approved by the Food and Drug Administration. VMA, Urine 2.7 Undefined mg/L VMA, Urine, 24hr 2.7 0.0-7.5 mg/24 hr -5-HIAA,Quant.,24 Hr Urine Reviewed date:01/04/2025 07:56:32 AM Interpretation:Normal Performing Lab:[address] [id number], Phone - [phone], Director [facility] Notes/Report: Test(s) 391709-7-CCYF, Urine; 472861-EZJ, Urine was developed and its performance characteristics determined by [facility]. It has not been cleared or approved by the Food and Drug Administration. 5-HIAA, Urine 4.4 Undefined mg/L 5-HIAA, Urine, 24hr 4.4 0.0-14.9 mg/24 hr Spirometry Reviewed date:08/17/2024 01:54:27 PM Interpretation:Abnormal Performing Lab: Notes/Report: Abnormal SpiroPreBronchodilator_FVC 2.45 SpiroPostBronchodilator_FEF25_75 0 SpiroPreBronchodilator_FEF25_75 0.6 SpiroPreBronchodilator_FEV1 1.31 SpiroPrecentPredictionPost_F EF25_ 75 0 SpiroPrecentPredictionPost_FEV1 0 SpiroPrecentPredictionPost_F EV1_O VER_FVC 0 SpiroPrecentPredictionPost_FVC 0 SpiroPrecentPredictionPre_FE F25_7 5 26.2 SpiroPrecentPredictionPre_FEV1 55 SpiroPrecentPredictionPre_FE V1_OV ER_FVC 68.7 SpiroPrecentPredictionPre_FVC 80.9 SpiroPredicted_FEF25_75 2.29 SpiroPreBronchodilator_FEV1_ OVER_ FVC 53.53 SpiroPreBronchodilator_PEF 2.45 SpiroPostBronchodilator_FVC 0 SpiroPostBronchodilator_FEV1 0 SpiroPostBronchodilator_FEV1 _OVER _FVC 0 SpiroPostBronchodilator_PEF 0 SpiroPredicted_FVC 3.03 SpiroPredicted_FEV1 2.38 SpiroPredicted_FEV1_OVER_FVC 77.87 SpiroPredicted_PEF 5.66 -Tryptase (647810) Reviewed date:12/10/2024 07:34:10 AM Interpretation:Normal Performing Lab:[facility], [address] [place] [address], [place], [place] [id number], Phone - [phone], Director - Lyndon Notes/Report: Tryptase 6.0 2.2-13.2 ug/L Reason For Referral No Information Medications Medication SIG (Take, Route, Frequency, Duration) Notes Start Date End Date Status Atorvastatin Calcium 40 MG TAKE 1 TABLET BY MOUTH ONCE DAILY Oral; Duration: 90 Days Active Nebivolol HCl 5 MG 1 tablet Orally Once a day Active Levothyroxine Sodium 88 MCG 1 tablet in the morning on an empty stomach Orally Once a day Active Montelukast Sodium 10 MG 1 tablet Orally Once a day; Duration: 30 days Active Ondansetron 4 MG 1 tablet on the tong ue and allow to dissolve Orally Once a day Active EPINEPHrine 0.3 MG/0.3ML as directed Inj ection as directed; Duration: 30 days Not-Taking Cetirizine HCl 10 MG 1 tablet Orally Twi ce a day; Duration: 30 days Active Nystatin 139302 UNIT/GM 1 application Externally Twice a day Active EPINEPHrine 0.3 MG/0.3ML as directed Inj ection as needed; Duration: 30 days Active Rivaroxaban 20 MG 1 tablet with food Orally Once a day Active Fluticasone Propionate 50 MCG/ACT 1 spray in each nostril Nasally Twice a day Not-Taking Pantoprazole Sodium 20 MG 1 tablet 1/2 t o 1 hour before morning meal Orally Once a day Active Lactobacillus - as directed Orally Not-Taking Budesonide Active AeroChamber MV - as directed; Duration: 30 days Any adult spacer Active Albuterol Sulfate HFA 108 (90 Base) MCG/ACT 2 puffs as needed Inhalation every 4 hrs; Duration: 30 days Active Advair HFA 230-21 MCG/ACT 2 puffs Inhala tion Twice a day Active Folic Acid 1 MG 1 tablet Orally Once a day Active Ferrous Sulfate 325 (65 Fe) MG 1 tablet Orally Three times a Week Active Social History Tobacco Use: Social History Observation Description Date Details (start date - stop date) Former Smoker NA - NA Sex Assigned At : Social History Observation Description Sex Assigned At Female Tobacco Control (Standard) Question Answer Notes Tobacco use: Former smoker How long has it been since you last smoked? 3-6 months AUDIT-C (Standard) Question Answer Notes Did you have a drink containing alcohol in the p ast year? No Points 0 Interpretation Negative Problems Problem Type SNOMED Code ICD Code Onset Dates Problem Status W/U Status Risk Notes Problem Allergy to penicillin (67140262) Allergy status to penicillin (Z88.0) Active confirmed Problem Eruption of skin (962821173) Rash and other nonspecific skin eruption (R21) Active confirmed Problem Carotid artery syndrome hemispheric (717463239) Carotid artery syndrome (hemispheric) (G45.1) Active confirmed Problem Heart disease (77641895) Other heart disorders in diseases classified elsewhere (I52) Active confirmed Problem Chronic rhinitis (37408911) Chronic rhinitis (J31.0) Active confirmed Problem Hypertrophy of nasal turbinates (82840077) Hypertrophy of nasal turbinates (J34.3) Active confirmed Problem Urticaria (101640611) Other urticaria (L50.8) Active confirmed Problem Fibromyalgia (002586243) Fibromyalgia (M79.7) Active confirmed Problem Swelling of head (375066670) Localized swelling, mass and lump, head (R22.0) Active confirmed Problem Toxic effect of venom (08287353) Toxic effect of venom of bees, accidental (unintentional), initial encounter (T63.441A) Active confirmed Problem Shortness of breath (258324578) Shortness of breath (R06.02) Active confirmed Problem Drug allergy (909557300) Allergy status to unspecified drugs, medicaments and biological substances (Z88.9) Active confirmed Vital Signs Blood pressure diastolic 78 mm Hg 04/13/2025 Oximetry 99 % 04/13/2025 Height 64 in 04/13/2025 Blood pressure systolic 143 mm Hg 04/13/2025 Weight 190.6 lbs 04/13/2025 BMI 32.71 kg/m2 04/13/2025 Encounters Encounter Location Date Provider Diagnosis [facility] [address] [place] [address] 11/09/2024 Breann Chavira Localized swelling, mass and [...] heart disorders in diseases classified elsewhere I52 [facility] [address] [place] [address] 10/06/2024 Breann Chavira Localized swelling, mass and [...] blood-pressure reading, without diagnosis of hypertension R03.0 [facility] [address] [place] [address] 08/10/2024 Breann Chavira Localized swelling, mass and [...] heart disorders in diseases classified elsewhere I52 [facility] [address] [place] [address] 04/13/2025 Breann Chavira Hypertrophy of nasal turbinates J34.3 ; Chronic rhinitis J31.0 ; Localized swelling, mass and lump, head R22.0 ; Allergy status to unspecified drugs, medicaments and biological substances Z88.9 ; Other urticaria L50.8 ; Shortness of breath R06.02 ; Toxic effect of venom of bees, accidental (unintentional), subsequent encounter T63.441D ; Rash and other nonspecific skin eruption R21 ; Allergy status to penicillin Z88.0 ; Other heart disorders in diseases classified elsewhere I52 and Elevated blood-pressure reading, without diagnosis of hypertension R03.[address] [address] 11/02/2024 Breann Chavira [facility] [address] [place] [address] 09/29/2024 Breann Chavira [facility] [address] [place] [phone] 03/17/2025 Breann Chavira [facility] [place] [address] [facility] [place] [address] 01/04/2025 Breann Patriciapat [facility] [place] [address] [place] [address] 12/17/2024 Breann Chavira Other urticaria L5 0.8 and Localized swelling, mass and lump, head R22.0 [facility] [place] [address] [facility] [place] [address] 11/18/2024 Breann Chavira [facility] [place] [address] [place] [address] 11/09/2024 Breann Chavira Assessments Encounter Date Diagnosis [...] plans below. - Will request records from [facility], as well as from her document review attorney. - Follow-up in 4 weeks for laboratory [...] as she would like to go to [facility]. - Will request records from [facility], as well as from her document review attorney. Still awaiting. - Follow-up in 4 weeks for laboratory review 10/06/2024 Allergy status to unspecified drugs, medicaments and biological substances (ICD-10 - Z88.9) See plan above 12/17/2024 Other urticaria (ICD-10 - L50.8) 12/17/2024 Localized swelling, mass and lump, head (ICD-10 - R22.0) 04/13/2025 Chronic rhinitis (ICD-10 - J31.0) See plan above 04/13/2025 Hypertrophy of nasal turbinates (ICD-10 - J34.3) Gege presents with upper airway symptoms concerning for uncontrolled atopic disease. She has two dogs in her home. She has trialed Zyrtec in the past without benefit. - Obtained ImmunoCaps that returned negative, total IgE 28. - Gege returned today for skin testing to aeroallergens. Testing revealed all negative results, appropriate controls. We discussed ID testing, which was deferred due to time constraints. - Consider returning for intradermal testing. - Consider ENT evaluation if upper airway symptoms persist 11/09/2024 Localized swelling, mass and lump, head [...] beer without issue. She was treated at [facility], she did not receive epinephrine or use [...] request records. - Will request records from [facility], as well as from her document review attorney. Still awaiting. - Follow-up in 4 weeks [...] of symptoms, printed order given to Gege 04/13/2025 Localized swelling, mass and lump, head (ICD-10 [...] elevated plasma normetanephrine and 5-IAA level noted. Repeat urine studies showed all values within normal range. - Gege previously reported throat tightness and visible swelling that occurred while drinking root beer. She regularly drinks root beer without issue. She was treated at [facility], she did not receive epinephrine or use her AIE. Again discussed indications of use of her AIE. Records of ER visit requested, though not received. - Continue Zyrtec 10 mg BID and Singulair 10 mg at night to assess for change in symptoms. BBW discussed. Will hold off on starting Pepcid due to [place] reports of unknown GI issues, recently had an EGD and colonoscopy. - Will request records from [facility], as well as from her document review attorney. Still awaiting. - Follow-up in 4 weeks for further evaluation and management 10/06/2024 Other urticaria (ICD-10 - L50.8) Also with reports of urticaria with other medications, last visit obtained tryptase that returned at an 8. As above, will repeat tryptase. Gege is also interested in urine studies due to additional history of hives and swelling, orders printed as she would like to go to [facility] 08/10/2024 Other urticaria (ICD-10 - L50.8) Also [...] further after most recent lab values return 04/13/2025 Allergy status to unspecified drugs, medicaments and biological substances (ICD-10 - Z88.9) See plan above 11/09/2024 Chronic rhinitis (ICD-10 - J31.0) See plan above 04/13/2025 Other urticaria (ICD-10 - L50.8) Also with reports of urticaria with other medications, last visit obtained tryptase that returned at an 8. As above, repeat tryptase 7.8. Discussed obtaining STAT tryptase in the setting of symptoms, printed order given to Gege 08/10/2024 Chronic rhinitis (ICD-10 - J31.0) See [...] office as Gege prefers to go to [facility]. Will obtain full PFT with [employer] device [...] office as Gege prefers to go to [facility]. Will obtain full PFT with [employer] device in the meantime, TE created. She is now slated for pulmonary evaluation next week. - Continue Advair as prescribed by her PCP. She is aware to rinse her mouth after use. - Gege is to use her rescue inhaler as-needed. Needs AAP next visit. - Follow-up in 4 weeks for further evaluation 04/13/2025 Shortness of breath (ICD-10 - R06.02) Gege [...] history of COPD, discussed evaluation by pulmonology. She is now established with Dr. Joshua's team, awaiting PFT next month. - Continue Advair as prescribed by her [...] length last visit. - Follow-up as above 04/13/2025 Toxic effect of venom of bees, accidental [...] other nonspecific skin eruption (ICD-10 - R21) eGge reports erythematous and dry rashes that occurs with various topical products and fragrances. - Consider patch testing, discuss further next visit 04/13/2025 Rash and other nonspecific skin eruption (ICD-10 [...] testing, Gege is considering at this time 04/13/2025 Allergy status to penicillin (ICD-10 - Z88.0) Gege reports passing out while taking penicillin in the past, further details are not clear. - Consider returning for penicillin testing, Gege is slated for next date 10/06/2024 Allergy status to penicillin (ICD-10 - [...] If Gege pursues immunotherapy, discuss this further 04/13/2025 Other heart disorders in diseases classified elsewhere (ICD-10 - I52) Gege reports history of PVCs, currently prescribed a beta-jerry. If Gege pursues immunotherapy, discuss this further 11/09/2024 Other heart disorders in diseases classified elsewhere (ICD-10 - I52) Gege reports history of PVCs, currently prescribed a beta-jerry. If Gege pursues immunotherapy, discuss this further 04/13/2025 Elevated blood-pressure reading, without diagnosis of hypertension (ICD-10 - R03.0) BP elevated today without symptoms of urgency or emergency. Continue serial checks and follow-up with PCP 10/06/2024 Elevated blood-pressure reading, without diagnosis of hypertension (ICD-10 - R03.0) BP elevated today without symptoms of urgency or emergency. Continue serial checks and follow-up with PCP 09/07/2024 Other 08/10/2024 Other 10/06/2024 Other 11/09/2024 Other 04/13/2025 Other Plan Of Treatment Pending Test Test [...] 24 HOUR, URINE 2024 Next Appt Details Provider Name:Breann louis, 06/08/2025 01:30:00 PM, [address] [facility], [address], [place], [address], Insurance Providers Payer Name Payer Address Payer Phone Subscriber Number Group Number Insured Name Patient Relationship to Insured Coverage Start Date Coverage End Date UHC Medicare [address] [address] [place] [address] [phone] [id number] Gege Vidal Self - patient is [...] KNEE ARTHROSCOPY/SURGERY PARTIAL HYSTERECTOMY LEFT BREAST BIOPSY Hospitalization History Reason Date(Month/Year) Abscess 02/2025
--- NOTE | 2025-05-25 21:13 | WPDSLEEPSTUD ---
Sleep Study Date of Study: 04/29/25 Ordering Provider: Abilio Cardozo APRN Interpreting Physician: Elisabeth Joshua MD Sleep Study Type: Polysomnogram Height: 1.63 m Weight: 83.915 kg Body Mass Index: 31.7 Neck Circumference (inches): 14 [place]: 3 Reason for Sleep Study Overnight oximetry with 5 minutes spent below 88%, total recording time over 9 hours She is having a sleep study ti determine if she has significant obstructive sleep apnea She has been tested in the past, negative results . Sleep History Gege Vidal is a 65-year-old woman with poor sleep. She occasionally awakens from sleep short of breath. She rarely wakes at night with heartburn, belching or coughing.??She never snores, never snores loudly enough that others complain. She frequently has trouble sleeping when she has a cold. She rarely wakes up gasping for breath during the night. She rarely has breathing problems at night. She occasionally sweats excessively at night. She occasionally notices her heart pounding or beating irregularly during the night. She occasionally falls asleep during the day. She occasional falls asleep involuntarily, never falls asleep while driving. She never experiences loss of muscle tone with strong emotion. She never feels paralyzed on waking or falling asleep. She never experiences vivid dreams upon waking or falling asleep. She never feels afraid of going to sleep. She rarely has nightmares. She never recalls her dreams. She occasionally has thoughts racing through her mind. She never feels sad or depressed. She occasionally feels anxiety. She occasionally notices parts of her body jerk. She occasionally kicks during the night. She occasionally feels crawling or aching feelings in her legs. She occasionally feels leg pain at night. She never has morning jaw pain, nor does she grind her teeth at night. She constantly feels bothered by pain during the day, is occasionally awakened by pain during the night. She frequently wakes up feeling stiff in the morning, frequently wakes feeling sore or achy in the morning. She frequently awakens with pain in her neck, spine, or joints. She has fatigue, memory problems and concentration difficulties. In her household she lives with her son, [id number] and 2 grandchildren. Normal bedtime is variable, not falling asleep any set time, typically waking between 2 and 3 times during the night to go to the bathroom or get a drink. She may watch television while awake. She wakes up early but not at a specific time it. She estimates half getting between 3 and 6 hours of sleep at night. She keeps the same schedule on weekends. She sometimes takes naps in the afternoon or evening. A short nap lasting 10-15 minutes is not refreshing. She is usually drowsy for 3 hours after waking. Habits:??Tobacco: former smoker Caffeine: none Alcohol: none Recreational substances: none [facility] Past Medical History Medical History Elevated fecal calprotectin ROXANNA (iron deficiency anemia) Non-specific colitis History of colitis Hypothyroidism Hyperlipidemia Carotid artery disease Status post left carotid endarterectomy. Symptomatic PVCs On metoprolol 50 milligrams daily. Hx of deep venous thrombosis Current use of half-way anticoagulation Dysphagia History of diverticulitis of colon Adenomatous colon polyp Colon, diverticulosis Lymphocytic colitis GERD (gastroesophageal reflux disease) CVA (cerebral vascular accident) With short-term memory loss. 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 Personal history of nicotine dependence Vitamin B12 deficiency Vitamin D deficiency Surgical History Surgical History Status post cholecystectomy Status post tonsillectomy S/P medial meniscectomy of left knee (09/2021) History of shoulder surgery History of neck surgery Hx of total knee arthroplasty Right History of arthroplasty of right knee History of left-sided carotid endarterectomy Status post cervical spinal fusion Status post right rotator cuff repair Status post tubal ligation Status post left breast biopsy Status post partial hysterectomy For cervical cancer. Family History Family History Mother Depression Family history of diabetes mellitus in first degree relative Diabetes mellitus Father Family history of diabetes mellitus in first degree relative Acute myocardial infarction Diabetes mellitus Sibling Hepatitis Pulmonary embolism Sibling No problems noted. Other Family history of allergic disorder Family history of cardiovascular disease Family history of malignant neoplasm Hypertension Social History Social History Social History: The patient is . She lives with her son in [place]. She designates her sons, Laith Howard and Kemal Islas, as her surrogate decision makers and she wishes to be a full code. She has smoked at least 1 pack of cigarettes per day for almost 40 years. She denies alcohol and drug abuse. Smoking packs per day: 1 Smoking cigarettes per day: 20.0 Years smoked: 40 Smoking pack-years: 40.00 Smoking status: Former smoker Second hand tobacco smoke exposure: Yes Alcohol intake: never Alcohol use details: reaction to ETOH Substance use: never Substance use type: does not use Do You Feel Safe in your Home?: Yes Lack of Transportation: No Lack of Food: Never True Current Housing: I Have Housing Concerned About Future Housing: No Difficulty Paying Gas/Electric Bills: No Difficulty Paying for Meds: No Currently Unemployed: No Education: High School Diploma/GED Difficulty w/ Childcare or Family Care: No Living arrangements: with family Occupation/Education: retired 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 Gender identity (if verbalized by the patient): Female Sexual Orientation (if Verbalized by the Patient): Straight or Heterosexual Spiritual care concerns: No Agree to blood products: Yes Medications Home Medications ?Medication ?Instructions ?Recorded ?Confirmed ?Type rivaroxaban 20 mg tablet (Xarelto) 20 mg PO DAILY 07/29/19 05/05/25 History folic acid 1 mg tablet 1 mg PO DAILY 08/04/19 05/05/25 History aspirin 81 mg chewable tablet 81 mg PO DAILY 10/06/22 05/05/25 History ergocalciferol (vitamin D2) 1,250 1,250 mcg PO MONTHLY 03/24/24 05/05/25 History mcg (50,000 unit) capsule lactobacillus combination no.9 4 4,000 mmu cells PO DAILY 03/24/24 05/05/25 History billion cell capsule (Adult 50 Plus Probiotic) fluticasone propionate 50 2 spray intranasal DAILY #18 mL 05/05/24 05/05/25 Rx mcg/actuation nasal spray,suspension (Flonase Allergy Relief) cholecalciferol (vitamin D3) 25 1,000 unit PO DAILY 10/13/24 05/05/25 History mcg (1,000 unit) capsule (Vitamin D3) cyanocobalamin (vitamin B-12) 1,000 mcg PO DAILY 10/13/24 05/05/25 History 1,000 mcg tablet (Vitamin B-12) pantoprazole 20 mg tablet,delayed 20 mg PO DAILY #90 tabs 10/22/24 05/05/25 Rx release ondansetron 4 mg disintegrating 4 mg PO Q8H PRN nausea and 11/04/24 05/05/25 Rx tablet vomiting #90 tabs atorvastatin 40 mg tablet 40 mg PO DAILY #90 tabs 11/05/24 05/05/25 Rx nystatin 100,000 unit/gram topical 1 applic topical BID PRN rash #15 11/05/24 05/05/25 Rx cream grams levothyroxine 88 mcg tablet 88 mcg PO DAILY #90 tabs 11/25/24 05/05/25 Rx (Synthroid) nebulizer accessories #1 ea 11/25/24 05/05/25 Rx nebulizer and compressor #1 ea 11/25/24 05/05/25 Rx albuterol sulfate 2.5 mg/3 mL 2.5 mg (3 mL) inhalation Q4-6H PRN 12/10/24 05/05/25 Rx (0.083 %) solution for nebulization shortness of breath or wheezing #180 mL chlorhexidine gluconate 4 % 1 applic topical DAILY #118 mL 03/11/25 05/05/25 Rx topical liquid mesalamine 1.2 gram tablet,delayed 4.8 g (4 x 1.2 gram) PO DAILY #224 04/30/25 05/05/25 Rx release (Lialda) tabs budesonide-formoterol HFA 160 2 puff inhalation Q12H #10.2 grams 05/03/25 05/05/25 Rx mcg-4.5 mcg/actuation aerosol inhaler (Symbicort) ferrous sulfate 325 mg (65 mg 325 mg PO BID #180 tabs 05/04/25 05/05/25 Rx iron) tablet (Feosol) alprazolam 0.5 mg tablet (Xanax) 0.5 mg PO BID PRN anxiety #60 tabs 05/18/25 Rx cyclobenzaprine 10 mg tablet 10 mg PO BID #20 tabs 05/19/25 Rx Sleep Procedure A full night polysomnogram using the Datorama multi-channel system recorded the standard physiologic parameters including EEG, EOG, submentalis EMG, anterior tibialis EMG, EKG, body position, nasal and oral airflow using nasal pressure sensor and thermistor. Respiratory parameters of chest and abdominal movements were recorded with Respiratory Inductance Plethysmography belts. Oxygen saturation was recorded by pulse oximetry. Video monitoring was also performed. Sleep stages, periodic limb movements, and EEG arousals were scored in 30 second epochs according to the criteria of the AASM Scoring Manual. The Apnea-Hypopnea Index was calculated using [facility] guidelines for definition of hypopnea while scoring respiratory events. She self-administered Lunesta 2 mg at the start of the study. She did not meet criteria for split night study so this was conducted as a full night polysomnogram. Sleep Architecture The total recording time was 432.4 minutes. The total sleep time was 406.5 minutes. Sleep latency was 2.2 minutes. REM latency was 76.0 minutes. Sleep efficiency was 94.0%. The patient had 21 awakenings for an awakening index of 3.1. Wake after sleep onset time was 23.5 minutes. The patient spent 8.0 minutes, 2.0% of total sleep time in Stage N1. The patient spent 191.0 minutes, 47.0% in Stage N2. The patient spent 109.0 minutes, 26.8% in Stage N3. The patient spent 98.5 minutes, 24.2% in Stage REM sleep. Respiratory Analysis The patient had 13 hypopneas, 4 obstructive apneas, 1 mixed apnea, and 5 central apneas for an overall Apnea Hypopnea Index of 3.4. The REM Apnea Hypopnea Index was 10.4. The NREM Apnea Hypopnea Index was 1.8. The patient had a Central Apnea Hypopnea Index of 0.7. There were no Respiratory Effort Related Arousals. The Respiratory Disturbance Index is 4.3 events per hour. There was no evidence of Mil-Campos Respirations. The apnea-hypopnea index in the supine position was 12.8. When sleeping on either side, her apnea-hypopnea index was 1.1. She has a positional component to her obstructive events. Arousals There were 60 total arousals for an arousal index of 8.9. There were 11 spontaneous arousals for an index of 1.6. There were 6 arousals due to respiratory events for an index of 0.9. There were 16 arousals due to periodic limb movements for an index of 2.4. There were 25 arousals due to isolated limb movements for an index of 3.7. Periodic Limb Movements The patient had 39 isolated limb movements with an index of 5.8. The patient had 72 periodic limb movements with an index of 10.6. Patient had a total of 111 limb movements with a total limb movement index of 16.4. Oximetry Data The patient had an average oxygen saturation of 93.4% in sleep with a minimum oxygen saturation of 88.0% and a maximum oxygen saturation of 98.0%. The patient had 20 oxygen desaturations that were 4% or greater resulting in an Oxygen Desaturation Index of 3.0. The patient spent 0.3 minutes, 0.1% of total sleep time with an oxygen saturation below 88%. Snoring Profile Snoring was mild to moderate. Cardiac Profile The EKG showed normal sinus rhythm, average pulse rate of 61.7 bpm with a minimum pulse of rate of 47 bpm and a maximum pulse rate of 95 bpm. No arrhythmias noted. EEG Profile Unremarkable, no evidence of seizures. Assessment and Plan Assessment and Plan (1) Snoring: Code(s): R06.83 - Snoring Status: Acute Assessment and Plan: This basic nocturnal polysomnogram on 04/29/2025 does not show obstructive sleep apnea which meets criteria for treatment. The patient has an overall apnea-hypopnea index of 4.6 (p > 3%) and an AHI of 3.4 using 4% criteria. Sleeping in the supine position, her events were more numerous. Sleeping on her back her apnea-hypopnea index was 12.8, sleeping on her side her apnea-hypopnea index was 1.1using 4% criteria. She had a very high side but efficiency, 94%. Her lowest saturation was 88%. She did not have excessive limb movements. She does not meet criteria to start PAP therapy. I recommend that she does not sleep on her back. She should use positional therapy, sleeping on her side and using pillows on her back and abdomen to prevent rolling into the supine position. For snoring, consider inspection of the upper airway and if indicated, refer to ENT. She may benefit by treating rhinitis. She may benefit by nasal adhesive strips, nasal steroids and nasal antihistamine. Weight loss can also help reduce incidence of obstructive events. Her BMI is 31.8. Weight management is advised. Clinical data suggests that weight loss of 10% can reduce the severity of respiratory events and snoring and improve AHI by as much as 25%. I would also recommend general sleep hygiene measures. She does not have a fixed bedtime or wake time, she naps in the day. During the night when she awakens, she may watch television. Light is the most potent stimulus for wakefulness. Recommendations to improve sleep quality include: ? Practice a bedtime routine and keep the same sleep schedule including bedtime and wake up time, even on the weekends. Consistency makes it much easier to fall asleep and wake easily. ? If you have trouble sleeping at night, avoid naps, especially in the late afternoon. However, short naps lasting approximately 20 minutes can help alleviate daytime fatigue, sleepiness, and even provide cognitive benefit. Naps longer than 30 minutes can cause sleep inertia, a period of reduced alertness and cognitive performance after waking. ? Exercise daily. ? Maintain a sleep environment conducive to sleep. The bedroom should be comfortably cool. In population studies, nocturnal environmental light and noise significantly impact sleep quality and quantity. Use of blackout curtains, ear plugs, or sound machines may help promote an optimal sleep environment for individuals with sleep disruptions due to environmental stimuli. ? Sleep on a comfortable mattress and pillows. ? Regular bright light exposure in the mornings may help to maximize alertness and maintain a regular circadian rhythm. Studies in extreme latitudes where sunlight is minimal in the winter have found that an hour of exposure to white light in the morning helped subjects go to sleep earlier and wake earlier. Exposure to blue light in the morning may have more robust effects on the stability of the circadian rhythm and has been shown to improve daytime fatigue and sleepiness. ? Avoid cigarettes, caffeine, and heavy meals in the evening. While alcohol use does seem to reduce the time it takes to fall asleep, studies have reported that evening alcohol intake can cause more waking time or light sleep in the second half of the night and reduce self-reported sleep quality. Evening nicotine is associated with lower sleep efficiency and more awake time during the night. ? Wind down with quiet activities that may promote sleep, such as reading with a dim light. Avoid use of electronics at least 30 minutes before habitual bedtime and in the middle of the night if nocturnal awakenings occur. The blue light emitted from computer screens and hand-held devices can suppress natural melatonin production, resulting in difficulty falling asleep; however, the exact duration of use and intensity of lighting that cause this effect are variable in the literature. ? If you cannot sleep, do not look at a clock. Go into another room and do something relaxing until you feel drowsy enough to fall asleep again. Then return to bed. Data The data obtained during this sleep study is adequate for interpretation. Certification This sleep study has been reviewed by a board certified sleep medicine physician.
[2025-06-02 12:52] VITALS: BMI 31.7
== END 2025-04-30 06:37 | disposition home or self-care (01) ==
LOC: ANHCSM 08:41
PROVIDERS: PCP Internal Medicine; Visit Provider Nurse Practitioner Family
DX: G47.30 Sleep apnea, unspecified (principal); R06.83 Snoring
CPT/HCPCS: 95810

== ENCOUNTER 2025-05-03 12:14 | Outpatient (CLI) | payer MEDICARE, MEDICAID, SELFPAY ==
--- OUTSIDE RECORDS SUMMARY | 2025-05-03 13:04 | XMS_ITS | Clinical Summary ---
Author Organization [facility] [employer] Address [address] [facility] [place] [address] Care Team Providers Care Natural Science Manager Name Role Phone Boris Mcnair DO Primary Care Provider [phone] Source Comments [facility],non-owned Affiliates and Associated Physician Practices is amultiple site organization consisting of ambulatory clinics and hospital sitesin [place], [place], [place] and [place]. This disclosure is being madepursuant to the Care Everywhere program and may not contain all information available regarding this patient. 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 Gender Identity Not on file Sexual [...] - 26 mg/dL 02/07/2018 1:22 PM CDT [facility] Creatinine 1.0 0.6 - 1.2 mg/dL 02/07/2018 1:22 PM [facility] Sodium 136 136 - 145 mmol/L 02/07/2018 1:22 PM [facility] Potassium 3.6 3.5 - 4.5 mmol/L 02/07/2018 1:22 PM [facility] Chloride 101 98 - 107 mmol/L 02/07/2018 1:22 PM [facility] CO2 25 22 - 29 mmol/L 02/07/2018 1:22 PM [facility] Glucose 93 70 - 115 mg/dL 02/07/2018 1:22 PM [facility] Calcium 9.9 8.4 - 10.2 mg/dL 02/07/2018 1:22 PM [facility] Protein Total 7.6 6.0 - 8.3 g/dL 02/07/2018 1:22 PM [facility] Albumin 3.5 3.4 - 5.0 g/dL 02/07/2018 1:22 PM [facility] Bilirubin Total 0.7 0.2 - 1.2 mg/dL 02/07/2018 1:22 PM [facility] Alkaline Phosphatase 109 40 - 150 Units/L 02/07/2018 1:22 PM [facility] ALT 22 0 - 55 Units/L 02/07/2018 1:22 PM [facility] AST 23 5 - 34 Units/L 02/07/2018 1:22 PM [facility] Anion Gap 14 8 - 18 02/07/2018 1:22 PM [facility] BUN/Creatinine Ratio 8 7 - 23 02/07/2018 1:22 PM [facility] Osmolality Calculated 280 270 - 300 mOsm/kg 02/07/2018 1:22 PM [facility] Albumin/Globulin Ratio 0.9(L) 1.1 - 2.3 02/07/2018 1:22 PM [facility] eGFR 57(L) >60 mL/min/1.7 3 m2 02/07/2018 1:22 PM [facility] Blood BLOOD SPECIMEN / Unknown Lab Venipuncture / Unknown 02/07/2018 12:50 PM CDT 02/07/2018 12:55 PM CDT Ester Barajas DO LAB - CHEMISTRY ORDERABLES Final Result [facility] [address] [place] [address], [facility] [phone] from Last 3 Months or Most Recently Relevant to Health Maintenance Insurance MEDICARE [facility] MANAGED MEDICARE ADV [facility] MANAGED MEDICARE ADV [place] SELF PAY NO INSURANCE Member Subscriber Plan / Payer (Ef fective for All Dates) Name:Gege Gutierres Member ID:Not on file Relation to Subscriber:Not on file Name:NENITAGEGE Subscriber ID:Not on file (Home) Address: [address] [place] [address] Payer ID:Not on file Group ID:Not on file Type:Self Pay Address: [place], [place] MEDICARE MEDICAID - OUT OF STATE [employer] MANAGED MEDICARE ADV [facility] MANAGED MEDICARE ADV [place] [facility] MANAGED MEDICARE ADV [place] [facility] MANAGED MEDICARE ADV [place] [facility] MANAGED MEDICARE ADV Advance Directives * Full Code (Latest Code Status on File) Date Activated Date Inactivated Comments 02/15/2018 8:10 AM 02/15/2018 12:04 PM * Full Code Date Activated Date Inactivated Comments 02/14/2018 7:57 AM 02/14/2018 6:16 PM Care Teams Natural Science Manager Relationship Specialty Start Date End Date Boris Mcnair DO [address] [place] [address] [facility] - General 04/07/19
--- OUTSIDE RECORDS SUMMARY | 2025-05-03 13:04 | XMS_ITS | Clinical Summary ---
Author Organization [facility] Address [address] [place] [address] Care Team Providers Care Powerhouse Electrician Apprentice Name Role Phone Eris Vu MD Primary Care Provider [phone] Allergies Active Allergy Reactions Criticality Noted Date Comments Adhesive Tape-Silicones Other (See Comments) Medium 08/19/2014 Blisters Codeine Shortness of Breath/Wheezing High 08/19/2014 Dfrbojuuc-P-Qebknva-Se jun-Brom Other (See Comments) Low 08/19/2014 Alcohol- [...] Device Data STL ABSTRACTION Provider, Abstract 04/13/2025 [facility] Oncology and Hematology - [place] [address] [place] [id number] Chris Owens MD 03/09/2025 External Device Data [...] on file 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 [address] [place] [address] Chris Owens MD [address] [facility] [address] [place] [address] Health Maintenance Due Date Last [...] Recently Relevant to Health Maintenance Insurance [address] [id number] Care Teams Powerhouse Electrician Apprentice Relationship Specialty Start Date End Date Eris Vu MD PCP - General Family Practice 02/21/23
--- OUTSIDE RECORDS SUMMARY | 2025-05-03 13:04 | XMS_ITS | Clinical Summary ---
Author Organization [facility] Address [address] [place] [address] Care Team Providers Care Precision Aircraft Systems Assembler Name Role Phone Dominic Fernando MD Primary Care Provider [phone] Allergies Active Allergy Reactions Criticality Noted Date [...] mcg tablet Take 112 mcg by mouth account manager education before breakfast. 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 Gender Identity Not on file Sexual Orientation Not on file Obstetrics History Last Filed Vital Signs Vital Sign Reading Time Taken Comments Blood Pressure 98/64 10/02/2019 8:21 AM CHIEF OPERATING ENGINEER Pulse 55 10/02/2019 8:21 AM CHIEF OPERATING ENGINEER Temperature 37.1 C (98.8 F) 11/24/2018 12:06 PM CDT Respiratory Rate 16 11/24/2018 12:06 PM CDT Oxygen Saturation 98% 11/24/2018 12:06 PM CDT Inhaled Oxygen Concentration - - Weight 80.4 kg (177 lb 3.2 oz) 10/02/2019 8:21 A M CHIEF OPERATING ENGINEER Height 165.1 cm (5' 5) 10/02/2019 8:21 AM CHIEF OPERATING ENGINEER Body Mass Index 29.49 10/02/2019 8:21 AM CHIEF OPERATING ENGINEER Plan of Treatment Not on file Medical Devices Implanted Type Area Stone Fabricator Device Identifier Shelf Expiration Date Model / Serial / Lot [employer]/Or tho [id number] Legion 9mm Dished Knee 3-4 Insert Tibial Xlpe - [id number] Implanted:Qty: 1 on 11/11/2018 by Kemal Wright MD at [facility] Right: Knee [employer]Or tho 08/11/2028 [id number] / / [id number] [employer]Or tho [id number] 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 Taper Knee Right 4 Baseplate Tibial Titanium - [id number] Implanted:Qty: 1 on 11/11/2018 by Kemal Wright MD at [facility] Right: Knee [employer]Or tho 07/18/2028 [id number] / / [id number]- Size 4 Right Cruciate Retaining Legion Oxinium Femoral Componenet Implanted:Qty: 1 on 11/11/2018 by Kemal Wright MD at [facility] Right: Knee [employer] [id number] 01/06/2028 [id number] / / [id number] [employer] [id number] [place]acos R+G High Viscosity Cement Bone Gentamicin Arthroplasty - [id number] Implanted:Qty: 1 on 11/11/2018 by Kemal Wright MD at [facility] Right: Knee [employer] 04/15/2021 [id number] / / [id number] Insurance MEDICARE [facility] MEDICARE [facility] Advance Directives For more information, please contact: [phone] * Full Code (Latest Code Status on File) Date Activated Date Inactivated Comments 11/14/2018 1:26 PM 11/15/2018 7:15 PM * Full Code Date Activated Date Inactivated Comments 11/13/2018 10:00 AM 11/14/2018 1:16 PM per patient request * Full Code Date Activated Date Inactivated Comments 11/11/2018 7:40 PM 11/12/2018 8:26 PM Care Teams Precision Aircraft Systems Assembler Relationship Specialty Start Date End Date Dominic Fernando MD [address] [facility] [address] [place] [id number] PCP - General 08/13/17
--- OUTSIDE RECORDS SUMMARY | 2025-05-03 13:05 | XMS_ITS | Continuity of Care Document ---
Author Organization [facility] Address [address] [place] [address] Phone Care Team Providers Care Environmental Monitoring Technician Name Role Phone Unavailable Unavailable Unavailable Advance Directives Directive Yes / No Effective Date File Name No Information Encounters Encounter Description Practice Location Reason(s) For Visit Diagnoses Date Provider Providers Copied on Encounter [facility], [address], [place], [place], [id number], [place] tel:[phone] [facility] No Information Mar-1 6-200 [id number] No Information Family History Family Member Type Diagnosis Age At Onset No Information Payers Payer name Insurance type Covered republican ID Authoriza tion(s) No Information Social History [...]
--- NOTE | 2025-05-03 15:24 | WPDSIXMINUTE ---
Six Minute Walk Procedure Procedure Performed Pulmonary Stress Test (6 min walk) Six Minute Walk Six Minute Walk: This is a 6 minute walk test. The test was performed and interpreted in accordance with the 2014 ERS/ATS task force guidelines. Findings: The patient's resting room air oxygen saturation measured by pulse oximetry was 98%, the heart rate was 96 bpm, and the modified Vicki dyspnea score was 2. Patient ambulated for 335 meters and oxygen saturation remained 96 to 97%. At the end of the study the heart rate was 116 bpm and the modified Vicki dyspnea score was not measured. The patient did not qualify for supplemental oxygen at rest or with ambulation. There are no prior studies for comparison.
--- NOTE | 2025-05-03 15:26 | P.PCNPFT_ITS ---
PFT Procedure Performed PFT Procedure Performed Spirometry with Pre/Post Bronchodilator Plethysmography (Lung Vol) Diffusing Cap (DLCO) Flow Vol Loop PFT Interpretation This is a pulmonary function test with pre and post-bronchodilator spirometry, plethysmography and diffusing capacity. The test was performed and results interpreted in accordance with the 2019 and 2005 ATS/ERS Task Force guidelines respectively using the Global Lung Function Initiative-2012 reference equations. Patient demonstrated good effort and cooperation. Reproducibility criteria were met. The quality of the pre bronchodilator spirometry maneuver was Grade A and post bronchodilator spirometry maneuver was Grade A. Findings: Spirometry: There is decreased maximal expiratory airflow at all lung volumes with a concave expiratory flow tracing. The contour the inspiratory flow tracing is normal. The pre bronchodilator FVC is 2.51 L, 81% predicted. The pre bronchodilator FEV1 is 1.25 L, 52% predicted. The pre bronchodilator FEV1: FVC ratio is 50%. The post bronchodilator FVC was 2.92 L, representing a 16% increase. The post bronchodilator FEV1 is 1.65 L, representing a 31% increase. The post bronchodilator FEV1: FVC ratio is 57%. Plethysmography: The total lung capacity is 5.54 L, 109% predicted. The funct ional residual capacity is 3.73 L, 129% predicted. The residual volume is 3.04 L, 148% predicted. The residual volume: Total lung capacity ratio is 55%. Diffusing capacity: The diffusing capacity unadjusted for hemoglobin and carboxyhemoglobin is 12.3, 58% predicted. The diffusing capacity adjusted for alveolar volume is 2.94, 67% predicted. Impression: There is a moderately severe obstructive abnormality. There is significant improvement after inhaling a single dose of albuterol. The increase in residual volume to total lung volume ratio is consistent with hyperinflation from an obstructive abnormality. The diffusing capacity unadjusted for hemoglobin and carboxyhemoglobin is moderately decreased and remains mildly decreased when adjusted for alveolar volume. There are no prior studies for comparison
== END 2025-05-03 12:15 | disposition home or self-care (01) ==
LOC: ANHPFT 12:14
PROVIDERS: PCP Internal Medicine; Visit Provider Physician Assistant
DX: J44.9 Chronic obstructive pulmonary disease, unspecified (principal)
CPT/HCPCS: 94060; 94618; 94726; 94729

== ENCOUNTER 2025-06-02 10:55 | Outpatient (CLI) | payer MEDICARE, MEDICAID, SELFPAY ==
--- OUTSIDE RECORDS SUMMARY | 1999-11-30 11:15 | XMS_ITS | Continuity of Care Document ---
Author Organization [facility] Address [address] [place] [address] Phone Care Team Providers Care Fur Farmer Name Role Phone Unavailable Unavailable Unavailable Advance Directives Directive Yes / No Effective Date File Name No Information Encounters Encounter Description Practice Location Reason(s) For Visit Diagnoses Date Provider Providers Copied on Encounter [facility], [address], [place], [place], [id number], [place] tel:[phone] [facility] No Information Mar-1 6-200 0 No Information Family History Family Member Type Diagnosis Age At Onset No Information Payers Payer name Insurance type Covered green party ID Authoriza tion(s) No Information Social History [...]
[2025-06-02 11:16] LABS: Hematocrit 38.7 % (37.0-47.0); Hemoglobin 12.3 g/dL (12.0-15.0); Immature Granulocyte Percent A 0.3 % (0-0.5); Lymphocytes Absolute Auto 1.51 K/mm3 (0.9-3.2); Mean Corpuscular HGB Conc 31.8 g/dl (32-36); Mean Corpuscular Hemoglobin 27.1 pg (26-34); Mean Corpuscular Volume 85.2 fl (80-100); Nucleated Red Blood Cells Absolute Auto 0.000 K/mm3 (0.0-0.012); Nucleated Red Blood Cells Perc 0.0 % (0.0-0.2); Platelet Count Result 313 k/mm3 (150-375); Red Blood Count 4.54 M/mm3 (4.2-5.4); White Blood Count 6.2 K/mm3 (4.5-10.0)
--- OUTSIDE RECORDS SUMMARY | 2025-06-02 11:45 | XMS_ITS | Encounter Summary ---
Author Organization [facility] Address 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 Gender Identity Not on file Sexual Orientation Not on file documented as of this encounter Plan of Treatment Upcoming Encounters Date Type Department Care Team (Late st Contact Info) Description 06/07/2025 1:00 PM CDT Office Visit [facility] Oncology and Hematology - [place] [address] [place] [address] [facility] [address] [place] [address] Chris Owens MD [address] [facility] [address] [place] [address] documented as of this encounter Visit Diagnoses Not on filedocumented in this encounter Care Teams Telecommunications Manager Relationship Specialty Start Date End Date Eris Vu MD PCP - General Family Practice 02/21/23 documented as of this encounter
--- OUTSIDE RECORDS SUMMARY | 2025-06-02 11:45 | XMS_ITS | Clinical Summary ---
Author Organization [facility] Address [address] [facility] [place] [address] Care Team Providers Care Mud Jack Nozzleman Name Role Phone Boris Mcnair DO Primary Care Provider [phone] Source Comments [facility],non-owned Affiliates and Associated Physician Practices is amultiple site organization consisting of ambulatory clinics and hospital sitesin [place], [place], [place] and [place]. This disclosure is being madepursuant to the Care Everywhere program and may not contain all information available regarding this patient. 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 Gender Identity Not on file Sexual [...] - Risk 60-74 years 1-dose series) 2021 DEPRESSION SCREENING 09/16/2024 MEDICARE AWV CALENDAR YEAR 2024 COVID-19 VACCINE (1 - 2023-2 5 season) 2025 INFLUENZA VACCINE (#1) 2025 HEPATITIS B VACCINE [...] - 26 mg/dL 02/07/2018 1:22 PM CDT [facility] Creatinine 1.0 0.6 - 1.2 [...] PM CDT 02/07/2018 12:55 PM CDT Ester Haresh Barajas DO LAB - CHEMISTRY [place] [address], [facility] [phone] from Last 3 Months or Most Recently Relevant to Health Maintenance Insurance MEDICARE [facility] MANAGED MEDICARE ADV [facility] MANAGED MEDICARE ADV MEDICAID [place] SELF PA[place] NO INSURANCE Member Subscriber Plan / Payer (Ef fective for All Dates) Name:NenitaMing lunabila Bird Member ID:Not on file Relation to Subscriber:Not on file Name:NENITAGEGE M Subscriber ID:Not on file (Home) Address: [address] [place] [address] Payer ID:Not on file Group ID:Not on file Type:Self Pay Address: [place], [place] MEDICARE MEDICAID - OUT OF STATE [facility] MANAGED MEDICARE ADV Member Subscriber Plan / Payer (Ef fective for All Dates) Name:Gege Gutierres Relation to Subscriber:Self Name:Gege Gutierres Payer ID:[id number] (NAIC) Type:Medicare-Managed Care Address: [place] [id number] [facility] MANAGED MEDICARE ADV [place]ICAID [place] [facility] MANAGED MEDICARE ADV [place] [facility] MANAGED MEDICARE ADV [place] [facility] MANAGED MEDICARE ADV Advance Directives * Full Code (Latest Code Status on File) Date Activated Date Inactivated Comments 02/15/2018 8:10 AM 02/15/2018 12:04 PM * Full Code Date Activated Date Inactivated Comments 02/14/2018 7:57 AM 02/14/2018 6:16 PM Care Teams Mud Jack Nozzleman Relationship Specialty Start Date End Date Boris Mcnair DO [address] [place] [address] [facility] - General 04/07/19
--- OUTSIDE RECORDS SUMMARY | 2025-06-02 11:46 | XMS_ITS | Clinical Summary ---
Author Organization [facility] Address [address] [place] [address] Care Team Providers Care Heating And Ventilation Engineer Name Role Phone Eris Vu MD Primary Care Provider [phone] Allergies Active Allergy Reactions Criticality Noted Date Comments Adhesive Tape-Silicones Other (See Comments) Medium 08/19/2014 Blisters Codeine Shortness of Breath/Wheezing High 08/19/2014 Xoxaidlwl-Z-Ubyjmzl-Se jun-Brom Other (See Comments) Low 08/19/2014 Alcohol- [...] tablet by mouth once daily 90 Tablet 04/13/2025 Active Active Problems Problem Noted Date Diagnosed Date 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 01/06/2020 Diverticulitis 03/24/2018 Secondary hypercoagulable state 11/15/2017 Tobacco use 11/15/2017 Encounters Date Type Department Care Team Description 06/01/2025 External Device Data STL ABSTRACTION Provider, Abstract 05/12/2025 External Device Data STL ABSTRACTION Provider, Abstract 05/05/2025 External Device Data STL ABSTRACTION Provider, Abstract 04/20/2025 External Device Data STL ABSTRACTION Provider, Abstract 04/13/2025 Refill [facility] Oncology and Hematology - [place] [address] [place] [address] Chris Owens MD 03/09/2025 External Device Data [...] on file Legal Sex Female 12:44 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 Gender Identity Not on file Sexual [...] [facility] Oncology and Hematology [facility] [address] [facility] [address] [place] [address] Chris Owens MD [address] [facility] [address] [place] [address] Health Maintenance Due Date Last Done Comments Pre-Diabetes and Diabetes Screening 1961 DTAP/TDAP/TD VACCINES (1 - Tdap) 1980 FIT-DNA Q 3 years 2006 FIT/FOBT Q 1 year 2006 Flex Sig/CT Colonography Q 5 years 2006 ZOSTER VACCINE (1 of 2) 2011 Lung Cancer Screening 07/15/2020 07/15/2019 [place] Preventative Visit/Annual Wellness Visit 09/16/2024 INFLUENZA VACCINE (#1) 2025 BREAST CANCER SCREENING [...] Most Recently Relevant to Health Maintenance Insurance [facility] DUAL COMPLETE PPO [facility] [id number] Care Teams Heating And Ventilation Engineer Relationship Specialty Start Date End Date Eris Vu MD PCP - General Family Practice 02/21/23
--- OUTSIDE RECORDS SUMMARY | 2025-06-02 11:46 | XMS_ITS | Clinical Summary ---
Author Organization [facility] Address [address] [place] [address] Care Team Providers Care Soil Expert Name Role Phone Dominic Fernando MD Primary Care Provider [phone] Allergies Active Allergy Reactions Criticality Noted Date [...] mcg tablet Take 112 mcg by mouth energy sales consultant before breakfast. 07/21/2018 Active XARELTO 20 mg [...] (09/24/2018): Added automatically from request for surgery [id number] Surgical History Surgery Date Site/Laterality Comments CHOLECYSTECTOMY [...] on file Legal Sex Female 11:26 PM ENERGY TRADER Gender Identity Not on file Sexual Orientation Not on file Obstetrics History Last Filed Vital Signs Vital Sign Reading Time Taken Comments Blood Pressure 98/64 10/02/2019 8:21 AM ENERGY TRADER Pulse 55 10/02/2019 8:21 AM ENERGY TRADER Temperature 37.1 C (98.8 F) 11/24/2018 12:06 PM CDT Respiratory Rate 16 11/24/2018 12:06 PM CDT Oxygen Saturation 98% 11/24/2018 12:06 PM CDT Inhaled Oxygen Concentration - - Weight 80.4 kg (177 lb 3.2 oz) 10/02/2019 8:21 A M ENERGY TRADER Height 165.1 cm (5' 5) 10/02/2019 8:21 AM ENERGY TRADER Body Mass Index 29.49 10/02/2019 8:21 AM ENERGY TRADER Plan of Treatment Not on file Medical Devices Implanted Type Area Price Economist Device Identifier Shelf Expiration Date Model / Serial / Lot [employer]/Or tho [id number] Legion 9mm Dished Knee 3-4 Insert Tibial Xlpe - [id number] Implanted:Qty: 1 on 11/11/2018 by Kemal Wright MD at [facility] Right: Knee [employer] tho 08/11/2028 [id number] / / [id number] [employer]Or tho [id number] 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 Taper Knee Right 4 Baseplate Tibial Titanium - [id number] Implanted:Qty: 1 on 11/11/2018 by Kemal Wright MD at [facility] Right: Knee [employer] tho 07/18/2028 [id number] / / [id number]- Size 4 Right Cruciate Retaining Legion Oxinium Femoral Componenet Implanted:Qty: 1 on 11/11/2018 by Kemal Wright MD at [facility] Right: Knee [employer] [id number] 01/06/2028 [id number] / / [id number] [employer] [id number] Palacos R+G High Viscosity Cement Bone Gentamicin Arthroplasty - [id number] Implanted:Qty: 1 on 11/11/2018 by Kemal Wright MD at [facility] Right: Knee [employer] 04/15/2021 [id number] / / [id number] Insurance MEDICARE [facility] MEDICARE [facility] Advance Directives For more information, please contact: [phone] * Full Code (Latest Code Status on File) Date Activated Date Inactivated Comments 11/14/2018 1:26 PM 11/15/2018 7:15 PM * Full Code Date Activated Date Inactivated Comments 11/13/2018 10:00 AM 11/14/2018 1:16 PM per patient request * Full Code Date Activated Date Inactivated Comments 11/11/2018 7:40 PM 11/12/2018 8:26 PM Care Teams Soil Expert Relationship Specialty Start Date End Date Dominic Fernando MD [address] [facility] [address] [facility] [address] [facility] [place] [id number] PCP - General 08/13/17
[2025-06-02 13:09] LABS: Anion Gap 7 mmol/L (4-12); Blood Urea Nitrogen 10 mg/dL (7-17); Calcium 9.1 mg/dL (8.4-10.2); Carbon Dioxide 26 mmol/L (22-30); Chloride 108 mmol/L (98-107); Estimated Glomerular Filt Rate 54; Glucose 93 mg/dL (65-110); Potassium 3.8 mmol/L (3.4-5.0); Sodium 141 mmol/L (137-145)
[2025-06-02 13:38] LABS: Iron 102 ug/dL (37-170)
[2025-06-02 13:49] LABS: Percent Iron Saturation 27 % (20-50)
[2025-06-02 14:14] LABS: Ferritin 16.20 ng/mL (11.1-264)
[2025-06-02 14:19] LABS: Vitamin B12 242.0 pg/mL (239-931)
== END 2025-06-02 10:56 | disposition home or self-care (01) ==
LOC: ANHLAB 10:57
PROVIDERS: PCP Internal Medicine; Visit Provider Internal Medicine Hematology & Oncology
DX: D64.9 Anemia, unspecified (principal)
CPT/HCPCS: 36415; 80048; 82607; 82728; 82746; 83540; 83550; 85025

== ENCOUNTER 2025-07-14 12:37 | Outpatient (CLI) | payer MEDICARE, MEDICAID, SELFPAY ==
--- OUTSIDE RECORDS SUMMARY | 1999-11-30 11:15 | XMS_ITS | Continuity of Care Document ---
Author Organization [facility] Address [address] [place] [address] Phone Care Team Providers Care Biomedical Engineering Supervisor Name Role Phone Unavailable Unavailable Unavailable Advance Directives Directive Yes / No Effective Date File Name No Information Encounters Encounter Description Practice Location Reason(s) For Visit Diagnoses Date Provider Providers Copied on Encounter [facility], [address], [place], [place], [id number], [place] tel:[phone] MDL [facility] No Information Mar-1 6-200 0 No Information Family History Family Member Type Diagnosis Age At Onset No Information Payers Payer name Insurance type Covered libertarian ID Authoriza tion(s) No Information Social History Type Description Quantity Date Captured Comments Sex Female Smoking Status No Information Chief Complaint And Reason For Visit No Information Reason For Referral Reason For Referral No Information History Of Present Illness Encounter Date Complaint History Of Prese nt Illness No Information Functional Status Date Functional Assessmen t No Information Instructions Date Instruction Additional Infor mation No Information Assessments Type Assessment Date No Information Patient Care Teams Name Effective Dates (start - stop) Status Members No Information
--- OUTSIDE RECORDS SUMMARY | 2024-07-28 12:30 | XMS_ITS ---
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 * Medical History: Objective: * Vitals: Assessment: Plan: * Treatment: * Billing Information: * Visit Code: * Procedure Codes: * Electronic signature of Bipin Gray PA-C on 07/14/2025 at 01:49 PM CDT Sign off status: Pending * Provider: Rashel Gray PA-C Date: 09/27/2023 Generated for Neal gonzalez/Randall/Vondasmitting on: 01:49 PM CDT
--- OUTSIDE RECORDS SUMMARY | 2024-09-07 12:30 | XMS_ITS ---
Author Organization [facility] [employer] [place] ([address]) Address [address] [place] [address] Care Team Providers Care Child Protection Specialist Name Role Phone Boris Mcnair Primary Care Provider Breann Zuniga Unavailable [phone] Eris Vu Unavailable Unavailable REASON FOR VISIT [...] Lactobacillus - as directed Orally Active Nystatin 067272 UNIT/GM 1 application Ex ternally Twice a [...] Encounter Location Date Provider Diagnosis [facility] [address] [facility] [address] [place] [address] 09/07/2024 Breann Chavira Localized swelling, mass and [...] plans below. - Will request records from [facility], as well as from her industrial custodian. - Follow-up in 4 weeks for laboratory [...] plans below. - Will request records from [facility], as well as from her industrial custodian. 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 She was seen by her industrial custodian, whorecommended stopping Maxitrol and started her on a prednisolone eye drop, shewas also using Refresh ocular lubricant. She was, once again, seen by her industrial custodian who started a different prednisoloneeye drop. Symptoms persistedand she reports the swelling worsened, due to thisshe was seen at [facility] where she was given steroids andantihistamines, also sent home on prednisone and Benadryl. She reports shecontinued to use the second prednisolone drop she was prescribed. Several dayslater she was seen once again by her industrial custodian, who stopped theprednisolone ocular drop and recommended [...] without benefit. There are two dogs in [facility]. She has never undergone allergy testing or [...] on nebivolol. She lives with tanya and sfcmumct-pr-hsz. She denies a history of physician-diagnosed allergic [...] or xray? Y es W here? A [facility] W hen? 1 H ave you ever undergone sinus surgery? Y es W here? G [facility] Cough F requency: d aily I s [...] ave you ever had a pneumococcal vaccine (PSQ-Deavhbi-Ppryaecam)? N o H ave you ever had a tetanus vaccine (XFsn-Vtvk-Su)? Y es Ear Infections D o you [...] H ave you been seen by an restaurant hourly manager or ironmolder for recurrent bronchitis? N o Pneumonia History H ave you ever had pneumonia or recurrent pneumonia? Y es H ow many episodes in your entire life? 2 H ow many episodes in the past 12 months? 0 H ave you been treated with antibiotics for pneumonia? Y es H ave you been hospitalized for treatment??No H ave you been seen by an restaurant hourly manager or ironmolder to evaluate your immune system function for [...] H ave you been seen by an restaurant hourly manager or ironmolder to evaluate your immune system function for [...] o H ave you previously seen an restaurant hourly manager for evaluation of possible food allergy? N [...] ave you ever been evaluated by an restaurant hourly manager for 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 o H ave you previously seen an restaurant hourly manager for evaluation of possible stinging insect allergy? [...] H ave you been evaluated by an restaurant hourly manager previously for possible drug allergy? N o [...] Orally Once a day , Taking Nystatin 883935 UNIT/GM Cream 1 application Externally Twice a [...] 8960 SELF-MGMT EDUC & TRAIN, 1 PT, 98727 PT-FOCUSED HLTH RISK ASSMT, G8427 DOC MEDS VERIFIED W/PT OR RE, A4617 Mouthpiece, 36087 RESPIRATORY FLOW VOLUME LOOP, 24701 Breann Chavira - Incident-to * Preventive Medicine: [...] Loop) * Billing Information: * Visit Code: 78485 Office Visit, New Pt., Level 5. Modifiers: 25 * Procedure Codes: 28834 SELF-MGMT EDUC & TRAIN, 1 PT. 03484 PT-FOCUSED HLTH RISK ASSMT. G8427 DOC MEDS VERIFIED W/PT OR RE. A4617 Mouthpiece. 37216 RESPIRATORY FLOW VOLUME LOOP. 73857 Breann Chavira - Incident-to. * Electronic signature of Breann Chavira DNP, FNP-C on 07/14/2025 at 01:49 PM CDT Sign off status: Pending * Provider: VALERIE Almonte Date: 11/08/2023 Generated for Neal gonzalez/Randall/Eduardo on: 01:49 PM CDT History and Physical Notes * HPI (History [...] left eye. She was seen by her industrial custodian, who recommended stopping Maxitrol and started her on a prednisolone eye drop, she was also using Refresh ocular lubricant. She was, once again, seen by her industrial custodian who started a different prednisolone eye drop. Symptoms persistedand she reports the swelling worsened, due to this she was seen at [facility] where she was given steroids and antihistamines, also sent home on prednisone and Benadryl. She reports she continued to use the second prednisolone drop she was prescribed. Several days later she was seen once again by her industrial custodian, who stopped the prednisolone ocular drop and [...] nebivolol. She lives with her son and nsnmpfvt-rv-qlm. She denies a history of physician-diagnosed allergic [...] CT scan or xray?: Ye s Where?: [facility] When?: 06/2024 Have you ever undergone sinus surgery?: Yes Where?: [facility] Allergic rhinitis Do you have or suspe [...] Have you ever had a pneumococcal vaccine (JTA-Kybrqqn-Skvfabvdv)?: No Have you ever had a tetanus [...] steroids Have you been seen by an restaurant hourly manager or ironmolder for recurrent bronchitis?: No Pneumonia History Have you ever had pneumonia or recurrent pneumonia?: Yes How many episodes in your entire life?: 2 How many episodes in the past 12 months?: 0 Have you been treated with antibiotics for pneumonia? : Yes Have you been hospitalized for treatment?: No Have you been seen by an restaurant hourly manager or ironmolder to evaluate your immune system function for [...] No Have you been seen by an restaurant hourly manager or ironmolder to evaluate your immune system function for [...] Have you been evaluated by a n restaurant hourly manager previously for possible drug allergy?: No *Stinging [...] autoinjector?: No Have you previously seen an restaurant hourly manager for evaluation of possible stinging insect allergy?: [...] reaction(s)?: No Have you previously seen an restaurant hourly manager for evaluation of possible food allergy?: No [...] Have you ever been evaluated by an restaurant hourly manager for 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
[2025-07-14 13:28] LABS: Hematocrit 42.2 % (37.0-47.0); Hemoglobin 13.6 g/dL (12.0-15.0); Mean Corpuscular HGB Conc 32.2 g/dl (32-36); Mean Corpuscular Hemoglobin 27.8 pg (26-34); Mean Corpuscular Volume 86.1 fl (80-100); Platelet Count Result 313 k/mm3 (150-375); Red Blood Count 4.90 M/mm3 (4.2-5.4); White Blood Count 6.6 K/mm3 (4.5-10.0)
[2025-07-14 13:49] LABS: Iron 78 ug/dL (37-170)
--- OUTSIDE RECORDS SUMMARY | 2025-07-14 13:49 | XMS_ITS | Clinical Summary ---
Author Organization [facility] Address [address] [facility] [place] [address] Care Team Providers Care Seam Closer Name Role Phone Boris Mcnair DO Primary Care Provider [phone] Source Comments [facility],non-owned Affiliates and Associated Physician Practices is amultiple site organization consisting of ambulatory clinics and hospital sitesin [place], [place], [place] and [place]. This disclosure is being madepursuant to the Care Everywhere program and may not contain all information available regarding this patient. 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 Gender Identity Not on file Sexual [...] - 26 mg/dL 02/07/2018 1:22 PM CDT [facility] Creatinine 1.0 0.6 - 1.2 [...] DO LAB - CHEMISTR[place] [address], [facility] [phone] from Last 3 Months or Most Recently Relevant to Health Maintenance Insurance MEDICARE [facility] MANAGED MEDICARE ADV [facility] MANAGED MEDICARE ADV MEDICAID [place] SELF PAY NO INSURANCE Member Subscriber Plan / Payer (Ef fective for All Dates) Name:NenitaMing lunabila Bird Member ID:Not on file Relation to Subscriber:Not on file Name:NENITAGEGE M Subscriber ID:Not on file (Home) Address: [address] [place] [address] Payer ID:Not on file Group ID:Not on file Type:Self Pay Address: [place], [place] MEDICARE MEDICAID - OUT OF STATE [facility] MANAGED MEDICARE ADV Member Subscriber Plan / Payer (Ef fective for All Dates) Name:Gege Gutierres Relation to Subscriber:Self Name:Gege Gutierres Payer ID:[id number] (NAIC) Type:Medicare-Managed Care Address: [place] [phone] [facility] MANAGED MEDICARE ADV [place] [facility] MANAGED MEDICARE ADV [place] [facility] MANAGED MEDICARE ADV [place] [facility] MANAGED MEDICARE ADV Advance Directives * Full Code (Latest Code Status on File) Date Activated Date Inactivated Comments 02/15/2018 8:10 AM 02/15/2018 12:04 PM * Full Code Date Activated Date Inactivated Comments 02/14/2018 7:57 AM 02/14/2018 6:16 PM Care Teams Seam Closer Relationship Specialty Start Date End Date Boris Mcnair DO [address] [place] [address] [facility] - General 04/07/19
--- OUTSIDE RECORDS SUMMARY | 2025-07-14 13:49 | XMS_ITS | Clinical Summary ---
Author Organization [facility] Address [address] [place] [address] Care Team Providers Care Hat Maker Name Role Phone Eris Vu MD Primary Care Provider [phone] Allergies Active Allergy Reactions Criticality Noted Date Comments Adhesive Tape-Silicones Other (See Comments) Medium 08/19/2014 Blisters Codeine Shortness of Breath/Wheezing High 08/19/2014 Cuubtbsfo-L-Rczwyck-Se jun-Brom Other (See Comments) Low 08/19/2014 Alcohol- [...] mouth daily. 90 Tablet 3 8 Active cholecalcifero l 50,000 unit CapsuleIndicat ions:pt taking once a month Take by mouth. Active pantoprazole (PROTONIX) 20 mg Tablet, Delayed Release (E.C.) Take 20 mg by mouth daily. Active cyclobenzaprin e (FLEXERIL) 5 mg Tablet TAKE 1 TABLET [...] once daily 90 Tablet 3 5 Active mesalamine (LIALDA) 1.2 gram Tablet, Delayed Release (E.C.) Take 4 Tablets by mouth daily. 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 01/06/2020 Diverticulitis 03/24/2018 Secondary hypercoagulable state 11/15/2017 Tobacco use 11/15/2017 Encounters Date Type Department Care Team Description 07/11/2025 Refill [facility] Oncology and Hematology [facility] [address] [place] [address] Chris Owens MD 07/07/2025 External Device Data STL ABSTRACTION Provider, Abstract 07/06/2025 External Device Data STL ABSTRACTION Provider, Abstract 06/07/2025 1:00 PM CDT Office Visit [facility] Oncology and [facility] [address] [place] [address] Chris Owens MD Chronic anemia (Primary Dx); Encounter for screening for lung cancer; Anemia due to vitamin B12 deficiency, unspecified B12 deficiency type 06/03/2025 Orders Only [facility] Oncology and Hematology [place] [address] [place] [address] Chris Owens MD 06/01/2025 External Device Data STL ABSTRACTION Provider, Abstract 06/01/2025 External Device Data STL ABSTRACTION Provider, Abstract 05/12/2025 External Device Data STL ABSTRACTION Provider, Abstract 05/05/2025 External Device Data STL ABSTRACTION Provider, Abstract 04/20/2025 External Device Data STL ABSTRACTION Provider, Abstract 04/13/2025 Refill [facility] Oncology and Hematology - [place] [address] [place] [address] Chris Owens MD from Last 3 Months [...] on file Legal Sex Female 12:44 PM MANAGER 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 Gender Identity Not on file Sexual Orientation Not on file Last Filed Vital Signs Vital Sign Reading Time Taken Comments Blood Pressure 134/65 06/07/2025 1:09 PM CDT Pulse 89 06/07/2025 1:07 PM CDT Temperature 36.8 C (98.3 F) 06/07/2025 1:07 PM CDT Respiratory Rate 16 06/07/2025 1:07 PM CDT Oxygen Saturation 96% 06/07/2025 1:07 PM CDT Inhaled Oxygen Concentration - - Weight 85.9 kg (189 lb 6.4 oz) 06/07/2025 1:07 P M CDT Height 162.6 cm (5' 4) 02/23/2022 11:52 AM CDT Body Mass Index 32.51 02/23/2022 11:52 AM CDT Plan of Treatment Upcoming Encounters Date Type Department Care Team (Late st Contact Info) Description 09/02/2025 11:00 AM MANAGER PRINTING Office Visit [facility] Oncology and Hematology [place] [address] [place] [address] Chris Owens MD [address] [facility] [address] [place] [address] Health Maintenance Due Date Last Done Comments Pre-Diabetes and Diabetes Screening 1961 DTAP/TDAP/TD VACCINES (1 - Tdap) 1980 FIT-DNA Q 3 years 2006 FIT/FOBT Q 1 year 2006 Flex Sig/CT Colonography Q 5 years 2006 ZOSTER VACCINE (1 of 2) 2011 Lung Cancer Screening 07/15/2020 07/15/2019 INFLUENZA VACCINE (#1) 2025 BREAST CANCER SCREENING 12/17/2025 12/18/19, 02/17/2024, 09/03/2023, Additional history exists COLORECTAL SCREENING 10/28/2030 10/28/2020, 05/31/20 20 Colorectal Cancer Screening 10/28/2030 RSV VACCINE (60+ or ) (1 - 1-dose 75+ series) 2036 Procedures Procedure Name Priority Date/Time Associated Diagnosis Comments BASIC METABOLIC PANEL Routine 06/02/2025 12:37 PM CDT MAMMO SCREENING BILAT Routine 12/17/2024 10:[address] LUNG SCREENING (LDCT BASELINE OR ANNUAL) Routine 07/15/2019 Encounter for screening for lung cancer from Last 3 Months or Most Recently Relevant to Health Maintenance Results * BASIC METABOLIC PANEL (06/02/2025 12:37 PM CDT) Blood us Chirs Owens MD CHEMISTRY ORDERABLES Final Resu lt * MAMMO SCREENING BILAT (12/17/2024 10:40 AM CDT) Anatomical Region Laterality Modality Breast Bilateral Mammography us Chris Owens MD MAMMO ORDERABLES Final Result * CT LUNG SCREENING (07/15/2019) Anatomical Region Laterality Modality Chest Computed Tomogra phy us Chris Owens MD CT ORDERABLES Final Result from Last 3 Months or Most Recently Relevant to Health Maintenance Insurance [facility] DUAL COMPLETE PPO [facility] [id number] Care Teams Hat Maker Relationship Specialty Start Date End Date Eris Vu MD PCP - General Family Practice 02/21/23
--- OUTSIDE RECORDS SUMMARY | 2025-07-14 13:49 | XMS_ITS | Patient Health Record ---
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 Name Role Phone Boris Mcnair Primary Care Provider UnavailBreann Wing Unavailable [phone] Eris Vu Unavailable Unavailable Franky Gray Unavailable [phone] Allergies Allergen (clinical drug ingredient) Drug/Non Drug Allergy documented on EMR Reaction Allergy Type Onset Date Status codeine Codeine anaphylaxis Drug Allergy Activ e hydromorphone HYDROmorphone rash Drug Allergy Active Latex Latex rash Allergy Active levofloxacin levoFLOXacin rash Drug Allergy A ctive Results Component Value Reference Range Notes Spirometry Reviewed date:08/17/2024 01:54:27 PM Interpretation:Abnormal Performing Lab: Notes/Report: Abnormal SpiroPreBronchodilator_FVC 2.45 SpiroPostBronchodilator_FEF2 5_7 5 0 SpiroPreBronchodilator_FEF25_75 0.6 SpiroPreBronchodilator_FEV1 1.31 SpiroPrecentPredictionPost_F EF2 5_75 0 SpiroPrecentPredictionPost_FEV1 0 SpiroPrecentPredictionPost_F EV1 _OVER_FVC 0 SpiroPrecentPredictionPost_FVC 0 SpiroPrecentPredictionPre_FE F25 _75 26.2 SpiroPrecentPredictionPre_FEV1 55 SpiroPrecentPredictionPre_FE V1_ OVER_FVC 68.7 SpiroPrecentPredictionPre_FVC 80.9 SpiroPredicted_FEF25_75 2.29 SpiroPreBronchodilator_FEV1_ OVE R_FVC 53.53 SpiroPreBronchodilator_PEF 2.45 SpiroPostBronchodilator_FVC 0 SpiroPostBronchodilator_FEV1 0 SpiroPostBronchodilator_FEV1 _OV ER_FVC 0 SpiroPostBronchodilator_PEF 0 SpiroPredicted_FVC 3.03 SpiroPredicted_FEV1 2.38 SpiroPredicted_FEV1_OVER_FVC 77.87 SpiroPredicted_PEF 5.66 HONEY BEE (I1) IGE Reviewed date:06/13/2025 03:45:08 PM Interpretation:Normal Performing Lab:[facility], [address] [place], [place] [address], [address] FranciLoretta Forrest MD Notes/Report: NON-FASTING; NON-FASTING; NON-FASTING; NON-FASTING HONEY BEE (I1) IGE <0.10 CLASS 0 BASOFUNCTION HRT AMOXICILLIN Reviewed date:06/16/2025 11:47:53 AM Interpretation:Normal Performing Lab:[facility], [facility], [address] [place] [address], [phone] Glenroy Liao PhD BCLD (ABB) Notes/Report: SPLIT 06/08/2025 FROM [id number] BASOFUNCTION HRT AMOXICILLIN* <0.1 <1.3 ng/mL FLAG Interpretation: A = Abnormal, H = High, L = Low WHITE-FACED HORNET (I2) IGE Reviewed date:06/13/2025 03:45:21 PM Interpretation:Normal Performing Lab:[facility], [address] [place], [address] Pietro Forrest MD Notes/Report: NON-FASTING; NON-FASTING; NON-FASTING; NON-FASTING WHITE-FACED HORNET (I2) IGE <0.10 CLASS 0 YELLOW JACKET (I3) IGE Reviewed date:06/13/2025 03:44:52 PM Interpretation:Normal Performing Lab:[facility], [address] [place], [address] Pietro Forrest MD Notes/Report: NON-FASTING; NON-FASTING; NON-FASTING; NON-FASTING YELLOW JACKET (I3) IGE <0.10 CLASS 0 PAPER WASP (I4) IGE Reviewed date:06/13/2025 03:44:59 PM Interpretation:Normal Performing Lab:[facility], [facility], [address] [place], [address] Pietro Forrest MD Notes/Report: NON-FASTING; NON-FASTING; NON-FASTING; NON-FASTING PAPER WASP (I4) IGE <0.10 CLASS 0 INTERPRETATION Specific Level of Allergen IGE Class kU/L Specific IGE Antibody ----- --------- 0 <0.10 Absent/Undetectable 0/1 0.10-0.34 Very Low Level 1 0.35-0.69 Low Level 2 0.70-3.49 Moderate Level 3 3.50-17.4 High Level 4 17.5-49.9 Very High Level 5 50-100 Very High Level 6 >100 Very High Level The clinical relevance of allergen results of 0.10-0.34 kU/L are undetermined and intended for specialist use. Allergens denoted with a include results using one or more analyte specific reagents. In those cases, the test was developed and its analytical performance characteristics have been determined by [employer]. It has not been cleared or approved by the U.S. Food and Drug Administration. This assay has been validated pursuant to the CLIA regulations and is used for clinical purposes. YELLOW HORNET (I5) IGE Reviewed date:06/15/2025 01:47:18 PM Interpretation:Normal Performing Lab:[facility], [address] [place], [address] Pietro Forrest MD Notes/Report: COLLECTION REQUIREMENTS NOT MET. PATIENT ADVISED TO RETURN. NON-FASTING; NON-FASTING YELLOW HORNET (I5) IGE <0.10 CLASS 0 INTERPRETATION Specific Level of Allergen IGE Class kU/L Specific IGE Antibody ----- --------- 0 <0.10 Absent/Undetectable 0/1 0.10-0.34 Very Low Level 1 0.35-0.69 Low Level 2 0.70-3.49 Moderate Level 3 3.50-17.4 High Level 4 17.5-49.9 Very High Level 5 50-100 Very High Level 6 >100 Very High Level The clinical relevance of allergen results of 0.10-0.34 kU/L are undetermined and intended for specialist use. Allergens denoted with a include results using one or more analyte specific reagents. In those cases, the test was developed and its analytical performance characteristics have been determined by [employer]. It has not been cleared or approved by the U.S. Food and Drug Administration. This assay has been validated pursuant to the CLIA regulations and is used for clinical purposes. BASOPHIL ACTIVATION TEST (FM LP)* Reviewed date:06/24/2025 04:33:01 PM Interpretation:Normal Performing Lab:[facility] [employer] [facility], [address], [phone] Glenroy Liao PhD BCLD (ABB) Notes/Report: SPLIT 06/08/2025 FROM [id number] BASOPHIL ACTIVATION TEST (FMLP)* 10.0 >3.7 ng/mL BasoFunction Allergen Response. The reference value for an allergen is the two standard deviation upper limit derived from a study population with no allergy to the allergen. Patients with results above this reference value should be considered sensitized and should be further evaluated by a specialist before allergen exposure. The negative predictive value of this basophil histamine release test is unknown. Basophil Activation Test. This determination is an important assessment of the histamine releasing capability of the patient's basophils when challenged with a non-specific stimulator (fMLP). If the result is greater than the reference range, it demonstrates that the patient's cells can release histamine when appropriately stimulated. It has been reported that some patient's basophils are unresponsive to any challenge. If the basophil activation test result is low, the patient's cells are hypo-responsive and the clinical significance of an individual allergen response is not known. *This test was developed and its performance characteristics determined by [employer]. It has not been cleared or approved by the U.S. Food and Drug Administration. FLAG Interpretation: A = Abnormal, H = High, L = Low -5-HIAA,Quant.,24 Hr Urine Reviewed date:01/04/2025 07:56:32 AM Interpretation:Normal Performing Lab:[facility], [address] [place] [id number], Phone - [phone], [facility] Notes/Report: and Drug Administration. by [facility]. It has not been cleared or approved by the Food was developed and its performance characteristics determined Test(s) [id number], Urine; [id number]-YSR, Urine 5-HIAA, Urine 4.4 Undefined mg/L 5-HIAA, Urine, 24hr 4.4 0.0-14.9 mg/24 hr -VMA (Vanillylmandelic Acid) , 24-Hour Urine Reviewed date:01/04/2025 07:56:42 AM Interpretation:Normal Performing Lab:[address] [id number], Phone - [phone], Director [facility] Notes/Report: Test(s) [id number]-[id number], Urine; 187456-ETG, Urine was developed and its performance characteristics determined by [employer]. It has not been cleared or approved by the Food and Drug Administration. VMA, Urine 2.7 Undefined mg/L VMA, Urine, 24hr 2.7 0.0-7.5 mg/24 hr -Metanephrines, Frac., Pl. F ree Reviewed date:01/04/2025 03:24:04 PM Interpretation:Normal Performing Lab:[address] [id number], Phone - [phone], [facility] Notes/Report: and Drug Administration. by [employer]. It has not been cleared or approved by the Food was developed and its performance characteristics determined Test(s) 134362-Ywztqddqjqjdqlp, Pl; 478074-Irxvfoczvcdk, Pl Normetanephrine, Pl 142.7 0.0-285.2 pg/mL Metanephrine, Pl <25.0 0.0-88.0 pg/mL -Histamine Determination, Ur ine Reviewed date:12/30/2024 04:37:39 PM Interpretation:Normal Performing Lab:[address] [id number], Phone - [phone], Director - [facility] Notes/Report: Test(s) 466278-Mcsxlbzvs,ug/L,U This test was developed and its performance characteristics determined by [employer]. It has not been cleared or approved by the Food and Drug Administration. Histamine,ug/L,U 14 Not Estab. ug/L Histamine,ug/24hr,U 14 0-65 ug/24 hr -HVA (Homovanillic Acid), 24 -Hour Urine Reviewed date:01/04/2025 07:56:37 AM Interpretation:Normal Performing Lab:[facility] [id number], Phone - [phone], Director - [facility] Notes/Report: Test(s) 250506-9-[id number], Urine; [id number]-WLA, Urine was developed and its performance characteristics determined by [facility]. It has not been cleared or approved by the Food and Drug Administration. HVA, Urine 3.5 Undefined mg/L This test was developed and its performance characteristics determined by [facility]. It has not been cleared or approved by the Food and Drug Administration. HVA, Urine, 24hr 3.5 0.0-10.0 mg/24 hr -Tryptase (689703) Reviewed date:12/10/2024 07:34:10 AM Interpretation:Normal Performing Lab:[facility] [id number], Phone - [phone], Director - [facility] Notes/Report: Tryptase 6.0 2.2-13.2 ug/L Reason For Referral No Information Medications Medication SIG (Take, Route, Frequency, Duration) Notes Start Date End Date Status Mesalamine 1.2 GM 2 tablets with a lee l Orally Once a day Active EPINEPHrine 0.3 MG/0.3ML as directed Inj ection as directed; Duration: 30 days Not-Taking Aspirin 81 81 MG 1 tablet Orally Once a day Active ALPRAZolam 0.5 MG 1 tablet Orally Twic e a day Active Nebivolol HCl 5 MG 1 tablet Orally Once a day Not-Taking Dicyclomine HCl 20 MG 1 tablet Orally Th ree times a day Active Fluticasone Propionate 50 MCG/ACT 1 spray in each nostril Nasally Twice a day Not-Taking Cyclobenzaprine HCl 10 MG 1 tablet at be dtime as needed Orally Once a day Active Lactobacillus - as directed Orally Not-Taking Symbicort 160-4.5 MCG/ACT Inhalation; Du ration: 31 Days Active Ferrous Sulfate 325 (65 Fe) MG 1 tablet Orally Three times a Week Active Atorvastatin Calcium 40 MG TAKE 1 TABLET BY MOUTH ONCE DAILY Oral; Duration: 90 Days Active Ondansetron 4 MG 1 tablet on the tong ue and allow to dissolve Orally Once a day Active Nystatin 886459 UNIT/GM 1 application Externally Twice a day Active Levothyroxine Sodium 88 MCG 1 tablet in the morning on an empty stomach Orally Once a day Active Folic Acid 1 MG 1 tablet Orally Once a day Active Budesonide Active Rivaroxaban 20 MG 1 tablet with food Orally Once a day Active Pantoprazole Sodium 20 MG 1 tablet 1/2 t o 1 hour before morning meal Orally Once a day Active Albuterol Sulfate HFA 108 (90 Base) MCG/ACT 2 puffs as needed Inhalation every 4 hrs; Duration: 30 days Active AeroChamber MV - as directed; Duration: 30 days Any adult spacer Active EPINEPHrine 0.3 MG/0.3ML as directed Inj ection as needed; Duration: 30 days Active Advair HFA 230-21 MCG/ACT 2 puffs Inhala tion Twice a day Active Cetirizine HCl 10 MG 1 tablet Orally Twi ce a day; Duration: 30 days Active Montelukast Sodium 10 MG 1 tablet Orally Once a day; Duration: 30 days Active Social History Tobacco Use: Social History [...] Status Risk Notes Problem Allergy to penicillin (78113612) Allergy status to penicillin (Z88.0) Active confirmed Problem Eruption of skin (140499181) Rash and other nonspecific skin eruption (R21) Active confirmed Problem Carotid artery syndrome hemispheric (152355663) Carotid artery syndrome (hemispheric) (G45.1) Active confirmed Problem Heart disease (92641480) Other heart disorders in diseases classified elsewhere (I52) Active confirmed Problem Chronic rhinitis (17094227) Chronic rhinitis (J31.0) Active confirmed Problem Hypertrophy of nasal turbinates (38854898) Hypertrophy of nasal turbinates (J34.3) Active confirmed Problem Urticaria (147107453) Other urticaria (L50.8) Active confirmed Problem Fibromyalgia (083623103) Fibromyalgia (M79.7) Active confirmed Problem Swelling of head (419849029) Localized swelling, mass and lump, head (R22.0) Active confirmed Problem Toxic effect of venom (29827801) Toxic effect of venom of bees, accidental (unintentional), initial encounter (T63.441A) Active confirmed Problem Shortness of breath (278475404) Shortness of breath (R06.02) Active confirmed Problem Drug allergy (572555836) Allergy status to unspecified drugs, medicaments and biological substances (Z88.9) Active confirmed Vital Signs Oximetry 97 % 06/08/2025 Blood pressure diastolic 67 mm Hg 06/08/2025 Height 64 in 06/08/2025 Blood pressure systolic 156 mm Hg 06/08/2025 Weight 191.0 lbs 06/08/2025 BMI 32.78 kg/m2 06/08/2025 Encounters Encounter Location Date Provider Diagnosis [facility] [address] [place] [address] 11/09/2024 Breann Chavira Localized swelling, mass and [...] heart disorders in diseases classified elsewhere I52 [facility] [address] [place] [address] 10/06/2024 Breann Chavira Localized swelling, mass and [...] blood-pressure reading, without diagnosis of hypertension R03.0 [facility] [address] [place] [address] 08/10/2024 Breann Chavira Localized swelling, mass and [...] heart disorders in diseases classified elsewhere I52 [facility] [address] [place] [address] 04/13/2025 Breann Chavira Hypertrophy of nasal turbinates [...] blood-pressure reading, without diagnosis of hypertension R03.0 [facility] [address] [place] [address] 06/08/2025 Breann Chavira Shortness of breath R06.02 ; Allergy status to penicillin Z88.0 ; Hypertrophy of nasal turbinates J34.3 ; Chronic rhinitis J31.0 ; Localized swelling, mass and lump, head R22.0 ; Allergy status to unspecified drugs, medicaments and biological substances Z88.9 ; Other urticaria L50.8 ; Toxic effect of venom of bees, accidental (unintentional), subsequent encounter T63.441D ; Rash and other nonspecific skin eruption R21 ; Other heart disorders in diseases classified elsewhere I52 and Elevated blood-pressure reading, without diagnosis of hypertension R03.[address] [address] 11/02/2024 Breann Chavira [facility] [address] [place] [address] 09/29/2024 Breann Chavira [address] [address] 06/24/2025 Breann Chavira [address] [address] 06/15/2025 Breann Chavira [facility] [address] [place] [address] 03/17/2025 Breann Chavira [address] [address] 01/04/2025 Breann Chavira [address] [address] 12/17/2024 Breann Chavira Other urticaria L5 0.8 and Localized swelling, mass and lump, head R22.[address] [address] 11/18/2024 Breann Chavira [address] [address] 11/09/2024 Breann Chavira Assessments Encounter Date Diagnosis [...] plans below. - Will request records from [facility], as well as from her upfitter. - Follow-up in 4 weeks for laboratory [...] as she would like to go to [facility]. - Will request records from [facility], as well as from her upfitter. Still awaiting. - Follow-up in 4 weeks [...] beer without issue. She was treated at [facility], she did not receive epinephrine or [...] request records. - Will request records from [facility], as well as from her upfitter. Still awaiting. - Follow-up in 4 weeks [...] ENT evaluation if upper airway symptoms persist 06/08/2025 Allergy status to penicillin (ICD-10 - Z88.0) Gege reports passing out while taking penicillin in the past, further details are not clear. - Gege returned today for penicillin testing and potential challenge. She presents with an ACT of 14, she reports her insurance stopped approving her prior inhaler. Since this time, her lower airway symptoms have increased significant. She recently had PFT completed with pulmonary. Given her increased lower airway symptoms, we will defer penicillin testing until our next testing date. - Given Gege's high level of anxiety surrounding penicillin testing, we will obtain basofunction testing to risk stratify 06/08/2025 Shortness of breath (ICD-10 - R06.02) Gege [...] is now established with Dr. Joshua's team, just had PFT completed in the last 4 weeks. I will obtain results. Spirometry deferred today due to recent test. - Continue Symbicort as prescribed by her PCP. She is aware to rinse her mouth after use. - Gege is to use her rescue inhaler as-needed. Needs AAP next visit. - Follow-up in 4 weeks for further evaluation 06/08/2025 Hypertrophy of nasal turbinates (ICD-10 - J34.3) Gege presents with upper airway symptoms concerning for uncontrolled atopic disease. She has two dogs in her home. She has trialed Zyrtec in the past without benefit. - Obtained ImmunoCaps that returned negative, total IgE 28. - Gege returned last visit for skin testing to aeroallergens. Testing revealed all negative results, appropriate controls. We discussed ID testing, which was deferred due to time constraints. - Consider returning for intradermal testing. - Consider ENT evaluation if upper airway symptoms persist 04/13/2025 Localized swelling, mass and lump, head [...] beer without issue. She was treated at [facility], she did not receive epinephrine or [...] and colonoscopy. - Will request records from [facility], as well as from her upfitter. Still awaiting. - Follow-up in 4 weeks for further evaluation and management 11/09/2024 Other urticaria (ICD-10 - L50.8) Also [...] as she would like to go to [facility] 08/10/2024 Other urticaria (ICD-10 - L50.8) [...] substances (ICD-10 - Z88.9) See plan above 06/08/2025 Chronic rhinitis (ICD-10 - J31.0) See plan above 06/08/2025 Localized swelling, mass and lump, head (ICD-10 [...] beer without issue. She was treated at [facility], she did not receive epinephrine or [...] and colonoscopy. - Will request records from [facility], as well as from her upfitter. Still awaiting. - Follow-up in 4 weeks for further evaluation and management 11/09/2024 Chronic rhinitis (ICD-10 - J31.0) See plan above 04/13/2025 Other urticaria (ICD-10 - L50.8) Also with reports of urticaria with other medications, last visit obtained tryptase that returned at an 8. As above, repeat tryptase 7.8. Discussed obtaining STAT tryptase in the setting of symptoms, printed order given to Gege 10/06/2024 Chronic rhinitis (ICD-10 - J31.0) See [...] office as Gege prefers to go to [facility]. Will obtain full PFT with [facility] [...] office as Gege prefers to go to [facility]. Will obtain full PFT with [facility] device in the meantime, TE created. She is now slated for pulmonary evaluation next week. - Continue Advair as prescribed by her PCP. She is aware to rinse her mouth after use. - Gege is to use her rescue inhaler as-needed. Needs AAP next visit. - Follow-up in 4 weeks for further evaluation 06/08/2025 Allergy status to unspecified drugs, medicaments and biological substances (ICD-10 - Z88.9) See plan above 04/13/2025 Shortness of breath (ICD-10 - R06.02) [...] in 4 weeks for further evaluation 04/13/2025 Toxic effect of venom of bees, [...] length last visit. - Follow-up as above 06/08/2025 Other urticaria (ICD-10 - L50.8) Also with reports of urticaria with other medications, last visit obtained tryptase that returned at an 8. As above, repeat tryptase 7.8. Discussed obtaining STAT tryptase in the setting of symptoms, printed order given to Gege 11/09/2024 Toxic effect of venom of bees, [...] Consider patch testing, discuss further next visit 06/08/2025 Toxic effect of venom of bees, accidental (unintentional), subsequent encounter (ICD-10 - T63.441D) Gege reports being stung by a bee when she was in her twenties. Reports being stung, recalls significant swelling, then she passed out. States she awoke surrounded by medical personnel, other details are not clear. - Plan to return for venom testing, in the meantime will obtain ImmunoCaps. - Gege is to carry an AIE at all times. Indications and proper use discussed at length last visit. - Follow-up as above 04/13/2025 Rash and other nonspecific skin eruption (ICD-10 - R21) Gege reports erythematous and dry rashes that occurs with various topical products and fragrances. - Consider patch testing, discuss further next visit 06/08/2025 Rash and other nonspecific skin eruption (ICD-10 - R21) Gege reports erythematous and dry rashes that occurs with various topical products and fragrances. - Consider patch testing, discuss further next visit 04/13/2025 Allergy status to penicillin (ICD-10 - [...] If Gege pursues immunotherapy, discuss this further 06/08/2025 Other heart disorders in diseases classified elsewhere (ICD-10 - I52) Gege reports history of PVCs, currently prescribed a beta-jerry. If Gege pursues immunotherapy, discuss this further 04/13/2025 Other heart disorders in diseases classified elsewhere (ICD-10 - I52) Gege reports history of PVCs, currently prescribed a beta-jerry. If Gege pursues immunotherapy, discuss this further 06/08/2025 Elevated blood-pressure reading, without diagnosis of hypertension (ICD-10 - R03.0) BP elevated today without symptoms of urgency or emergency. Continue serial checks and follow-up with PCP 04/13/2025 Elevated blood-pressure reading, without diagnosis of hypertension (ICD-10 - R03.0) BP elevated today without symptoms of urgency or emergency. Continue serial checks and follow-up with PCP 10/06/2024 Elevated blood-pressure reading, without diagnosis of hypertension (ICD-10 - R03.0) BP elevated today without symptoms of urgency or emergency. Continue serial checks and follow-up with PCP 08/10/2024 Other 09/07/2024 Other 04/13/2025 Other 10/06/2024 Other 06/08/2025 Other 11/09/2024 Other Plan Of Treatment Pending Test Test Name Order Date RESPIRATORY ALLERGY PROFILE REGION VIII: [place], [place] 08/10/2024 METANEPHRINES, FRACT. LC/MS/MS, 24 HR UR INE 10/06/2024 METANEPHRINES, FRACT, FREE, LC/MS/MS, PL ASMA 10/06/2024 YELLOW HORNET (I5) IGE 06/08/2025 TRYPTASE 10/06/2024 TRYPTASE 08/10/2024 COMPLEMENT COMPONENT C4C [...] Coverage End Date [employer] Medicare [address] [address] [place] [address] [phone] [id number] Gege Vidal Self - patient is [...]
--- OUTSIDE RECORDS SUMMARY | 2025-07-14 13:50 | XMS_ITS | Clinical Summary ---
Author Organization [facility] Address [address] [place] [address] Care Team Providers Care Steamer Operator Name Role Phone Boris Mcnair DO Primary Care Provider [phone] Allergies Active Allergy Reactions Criticality Noted Date [...] mcg tablet Take 112 mcg by mouth qa reviewer before breakfast. 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 Gender Identity Not on file Sexual Orientation Not on file Obstetrics History Last Filed Vital Signs Vital Sign Reading Time Taken Comments Blood Pressure 98/64 10/02/2019 8:21 AM AUTOMOTIVE SOFTWARE ENGINEER Pulse 55 10/02/2019 8:21 AM AUTOMOTIVE SOFTWARE ENGINEER Temperature 37.1 C (98.8 F) 11/24/2018 12:06 PM CDT Respiratory Rate 16 11/24/2018 12:06 PM CDT Oxygen Saturation 98% 11/24/2018 12:06 PM CDT Inhaled Oxygen Concentration - - Weight 80.4 kg (177 lb 3.2 oz) 10/02/2019 8:21 A M AUTOMOTIVE SOFTWARE ENGINEER Height 165.1 cm (5' 5) 10/02/2019 8:21 AM AUTOMOTIVE SOFTWARE ENGINEER Body Mass Index 29.49 10/02/2019 8:21 AM AUTOMOTIVE SOFTWARE ENGINEER Plan of Treatment Health Maintenance Due Date Last Done Comments Breast Cancer Screening-Mammogram 1961 Colon Cancer Screening-Colonoscopy 1961 Depression Screening 1961 Hepatitis C Screening 1961 Hepatitis B Screening 1979 Regular Well Visit/Exam 18-64 1979 Pneumococcal vaccine <65 (1 of 2 - PCV) 1980 Zoster Vaccine (1 of 2) 2011 Influenza Vaccine (#1) 2025 DTaP/Tdap/Td Vaccine (2 - Tdap) 06/12/2027 7 Medical Devices Implanted Type Area Brace Maker Device Identifier Shelf Expiration Date Model / Serial / Lot [employer] Nep[employer]/Or tho [id number] Legion 9mm Dished Knee 3-4 Insert Tibial Xlpe - [id number] Implanted:Qty: 1 on 11/11/2018 by Kemal Wright MD at [facility] Right: Knee [employer] 08/11/2028 [id number] / / [id number] [employer]Or tho [id number] 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 Taper Knee Right 4 Baseplate Tibial Titanium - [id number] Implanted:Qty: 1 on 11/11/2018 by Kemal Wright MD at [facility] Right: Knee [employer]Or [employer] 07/18/2028 [id number] / / [id number]- Size 4 Right Cruciate Retaining Legion Oxinium Femoral Componenet Implanted:Qty: 1 on 11/11/2018 by Kemal Wright MD at [facility] Right: Knee [employer]hew [id number] 01/06/2028 [id number] / / [id number] [employer] [id number] Palacos R+G High Viscosity Cement Bone Gentamicin Arthroplasty - [id number] Implanted:Qty: 1 on 11/11/2018 by Kemal Wright MD at [facility] Right: Knee [employer] 04/15/2021 [id number] / / [id number] Insurance MEDICARE [facility] MEDICARE [facility] IDPA [facility] MEDICARE ADVANTAGE [facility] MEDICARE Address: [address] [address] [place] [address] Advance Directives For more information, please contact: [phone] * Full Code (Latest Code Status on File) Date Activated Date Inactivated Comments 11/14/2018 1:26 PM 11/15/2018 7:15 PM * Full Code Date Activated Date Inactivated Comments 11/13/2018 10:00 AM 11/14/2018 1:16 PM per patient request * Full Code Date Activated Date Inactivated Comments 11/11/2018 7:40 PM 11/12/2018 8:26 PM Care Teams Steamer Operator Relationship Specialty Start Date End Date Boris Mcnair DO [address] [place] [address] PCP - General Internal Medicine 06/07/25
--- OUTSIDE RECORDS SUMMARY | 2025-07-14 13:50 | XMS_ITS | Patient Health Record ---
Author Organization [facility] Address [address], [place] [address] Care Team Providers Care Link Assembler Name Role Phone Tanner Reid MD Primary Care Provider Tanner Redi Unavailable Unavailable ALLERGIES Allergen (clinical drug ingredient) [...] finger, initial encounter (S63.631A) 023 Active confirmed [id number] Problem Fall on same level from slipping, tripping and stumbling without subsequent striking against object, initial encounter (W01.0XXA) 023 Active confirmed [id number] Problem Encounter for other specified surgical aftercare (Z48.89) Active confirmed Postoperative c are ([id number]) PLAN OF TREATMENT No Information Insurance Providers Payer Name Payer Address Payer Phone Subscriber Number Group Number Insured Name Patient Relationship to Insured Coverage Start Date Coverage End Date U[employer] Medicare Advantage PPO [address] [address] [place] [address] [id number] Gege Vidal Self - patient is the insured MEDICAL (GENERAL) HISTORY Medical History History ICD Code Hypothyroidism Surgical History Surgery Date(Month/Year) right knee arthroscopy tubal ligation tonsillectomy hysterectomy neck right knee arthroscopy shoulder arthroscopy, right x2
--- OUTSIDE RECORDS SUMMARY | 2025-07-14 13:50 | XMS_ITS | Clinical Summary ---
Author Organization [facility] Address [address] [place] [address] Care Team Providers Care Child Study Team Director Name Role Phone Eris Vu MD Primary Care Provider [phone] Allergies Active Allergy Reactions Criticality Noted Date Comments Alcohol Other (see comment) 05/25/2024 Blisters Codeine Anaphylaxis High 05/25/2024 Hydromorphone Vomiting 05/25/2024 Hydrocodone Vomiting 05/25/2024 Latex Hives 05/25/2024 Levofloxacin Other (see comment) 05/25/2024 Patient stated they dont remember what happens when they have Levaquin but was told to not take it again. Morphine Hives 05/25/2024 Penicillins Anaphylaxis High 05/25/2024 Shellfish Protein-Containing Drug Products Anaphylaxis High 06/08/2024 Vancomycin Other (see [...] 07/18/2022 07/18/2020, 07/15/2019 COVID-19 Vaccine (1 - 2024-2 6 season) 2025 Influenza Adult (#1) 2025 RSV Immunization or 60+ Years (1 - 1-dose 75+ series) 2036 Hepatitis A Vaccines Aged Out No long er eligible based on patient's age to complete this topic Meningococcal B Vaccine Aged Out No l onger eligible based on patient's age to complete this topic Meningococcal Vaccine Aged Out No daniela brook eligible based on patient's age to complete this topic RSV Immunizations Under 20 Months Aged Out No longer eligible b ased on patient's age to complete this topic Medical Devices Implanted Type Area Refractory Bricklayer Device Identifier Shelf Expiration Date Model / Serial / Lot Tecnis 1-Piece Iol Implanted:Qty: 1 on 06/08/2024 by Jadon Vu MD at [facility] Left: Eye [employer] 10/27/2026 / [id number] / Insurance MEDICARE MEDICAID Care Teams Child Study Team Director Relationship Specialty Start Date End Date Eris Vu MD [address] [place] [address] PCP - General FAMILY PRACTICE 06/05/24
[2025-07-14 13:53] LABS: Alanine Aminotransferase 17 U/L (6-35); Albumin Level 4.1 g/dL (3.5-5.1); Alkaline Phosphatase 103 U/L (38-126); Anion Gap 9 mmol/L (4-12); Aspartate Amino Transferase 23 U/L (14-36); Bilirubin,Total 0.6 mg/dL (0.2-1.3); Blood Urea Nitrogen 8 mg/dL (7-17); CRP < 0.5 mg/dL (<1.0); Calcium 9.1 mg/dL (8.4-10.2); Carbon Dioxide 23 mmol/L (22-30); Chloride 107 mmol/L (98-107); Estimated Glomerular Filt Rate 59; Glucose 99 mg/dL (65-110); Potassium 3.8 mmol/L (3.4-5.0); Sodium 139 mmol/L (137-145); Total Protein 7.1 g/dL (6.3-8.2)
[2025-07-14 14:01] LABS: Percent Iron Saturation 21 % (20-50)
[2025-07-14 14:30] LABS: Ferritin 22.50 ng/mL (11.1-264)
[2025-07-14 15:03] LABS: Vitamin B12 529.0 pg/mL (239-931)
[2025-07-17 01:07] LABS: Calprotectin, Fecal 138 ug/g (0-120)
== END 2025-07-14 12:38 | disposition home or self-care (01) ==
LOC: ANHLAB 12:38
PROVIDERS: PCP Internal Medicine; Visit Provider Nurse Practitioner Family
DX: K52.9 Noninfective gastroenteritis and colitis, unspecified (principal); D50.9 Iron deficiency anemia, unspecified; R10.30 Lower abdominal pain, unspecified; R19.5 Other fecal abnormalities
CPT/HCPCS: 36415; 80053; 82607; 82728; 82746; 83540; 83550; 83993; 85027; 85652; 86140

== ENCOUNTER 2025-08-06 15:10 | Emergency (ER) | payer OTHER, MEDICARE, MEDICAID, SELFPAY ==
--- OUTSIDE RECORDS SUMMARY | 2024-07-28 11:30 | XMS_ITS ---
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 Allergies Social History Sex Assigned At : Social History Observation Description Sex Assigned At Female Encounters Encounter Location Date Provider Diagnosis [facility] [address] [place] [address] 07/28/2024 Franky Gray Plan Of Treatment No Information Progress Notes * Gege GUTIERRESDOB:1960 (65 yo F)Acc No.[id number]:07/28/2024 Progress Notes Patient: Gege MADERA Provider: Rashel Gray PA-C :1960 A ge:64 Y S ex:Female Date:07/28/2024 Address:[address] [place] [id number] Pcp:Boris Mcnair Subjective: * Chief Complaints: * 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 * Medical History: Objective: * Vitals: Assessment: Plan: * Treatment: * Billing Information: * Visit Code: * Procedure Codes: * Electronic signature of Bipin Gray PA-C on 08/06/2025 at 03:13 PM PARISH VISITOR Sign off status: Pending * Provider: Rashel Gray PA-C Date: 09/27/2023 Generated for Neal gonzalez/Randall/Eduardo on: 1 10/06/2024 03:13 PM PARISH VISITOR
--- OUTSIDE RECORDS SUMMARY | 2024-09-07 11:30 | XMS_ITS ---
Author Organization [facility] [employer] [place] ([address]) Address [address] [place] [address] Care Team Providers Care Process Coach Name Role Phone Boris Mcnair Primary Care Provider Breann Zuniga Unavailable [phone] Eris Vu Unavailable Unavailable REASON FOR VISIT Recently with ocular swelling, [...] Duration) Notes Start Date End Date Status Fluticasone Propionate 50 MCG/ACT 1 spray in each nostril Nasally Twice a day Active EPINEPHrine 0.3 MG/0.3ML as directed Inj ection as directed; Duration: 30 days Active Ferrous Sulfate 325 (65 Fe) MG 1 tablet Orally Three times a Week Active Folic Acid 1 MG 1 tablet Orally Once a day Active Lactobacillus - as directed Orally Active Nystatin 463440 UNIT/GM 1 application Ex ternally Twice a day Active Ondansetron 4 MG 1 tablet on the tong ue and allow to dissolve Orally Once a day Active Pantoprazole Sodium 20 MG 1 tablet 1/2 t o 1 hour before morning meal Orally Once a day Active Levothyroxine Sodium 88 MCG 1 tablet in the morning on an empty stomach Orally Once a day Active Nebivolol HCl 5 MG 1 tablet Orally Once a day Active EPINEPHrine 0.3 MG/0.3ML as directed Inj ection as needed; Duration: 30 days Active Rivaroxaban 20 MG 1 tablet with food O rally Once a day Active AeroChamber MV - as directed; Duration: 30 days Any adult spacer Active Albuterol Sulfate HFA 108 (90 Base) MCG/ACT 2 puffs as needed Inhalation every 4 hrs; Duration: 30 days Active Advair HFA 230-21 MCG/ACT 2 puffs Inhala tion Twice a day Active Social History Sex Assigned At : Social History Observation Description Sex Assigned At Female Encounters Encounter Location Date Provider Diagnosis [facility] [address] [place] [address] 09/07/2024 Breann Chavira Localized swelling, mass and lump, [...] Treatment Notes Treatment Clinical Notes Section Notes 09/07/2024 Localized swelling, mass and lump, head (ICD-10 [...] plans below. - Will request records from [facility], as well as from her faculty neuropsychologist. - Follow-up in 4 weeks for laboratory review 09/07/2024 Allergy status to unspecified drugs, medicaments and biological substances (ICD-10 - Z88.9) See plan above 09/07/2024 Other urticaria (ICD-10 - L50.8) Also with reports of urticaria with other medications, will order tryptase level to assess for mast cell conditions. Consider urine studies, however will obtain baseline tryptase first 09/07/2024 Hypertrophy of nasal turbinates (ICD-10 - J34.3) Gege presents with upper airway symptoms concerning for uncontrolled atopic disease. She has two dogs in her home. She has trialed Zyrtec in the past without benefit. - Discussed SPT, however will obtain ImmunoCaps first as Gege is being sent for laboratory work. - Consider returning for SPT pending laboratory review 09/07/2024 Chronic rhinitis (ICD-10 - J31.0) See plan above 09/07/2024 Shortness of breath (ICD-10 - R06.02) Gege [...] for spirometry and further evaluation and management 09/07/2024 Toxic effect of venom of bees, accidental [...] discussed at length. - Follow-up as above 09/07/2024 Rash and other nonspecific skin eruption (ICD-10 - R21) Gege reports erythematous and dry rashes that occurs with various topical products and fragrances. - Consider patch testing, discuss further next visit 09/07/2024 Allergy status to penicillin (ICD-10 - Z88.0) Gege reports passing out while taking penicillin in the past, further details are not clear. 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 If Gege pursues immunotherapy, discuss this further 09/07/2024 Other Plan Of Treatment Medication Medication Name Sig Start Date Stop Date Notes EPINEPHrine 0.3 MG/0.3ML as directed Inj ection as needed; Duration: 30 days AeroChamber MV - as directed; Duratio n: 30 days Albuterol Sulfate HFA 108 (9 0 Base) MCG/ACT 2 puffs as needed Inhalation every 4 hrs; Duration: 30 days Advair HFA 230-21 MCG/ACT 2 puffs Inhala tion Twice a day Treatment Notes Assessment Notes Localized swelling, mass [...] plans below. - Will request records from [facility], as well as from her faculty neuropsychologist. - Follow-up in 4 weeks for laboratory [...] above Rash and other nonspecific skin eruption Ggee reports erythematous and dry rashes that occurs [...] If Gege pursues immunotherapy, discuss this further Next Appt Details Follow Up: 4 Weeks, Reason: Evaluation and Management, Laboratory Review, Spirometry/Flow Volume Loop Progress Notes * Gege VIDALDOB:1960 (65 yo F)Acc No.[id number]:09/07/2024 Progress Notes Patient: Gege MADERA Provider: Rashel Chavira DNP [employer]-C :1960 A ge:64 Y S ex:Female Date:09/07/2024 Address:[address] [place], [place] [id number] Pcp:Boris Mcnair Subjective: * Chief Complaints: * 1 . Recently with ocular swelling, erythema and watering with various ocular drops following cataract surgery.. 2. Chronic upper airway symptoms concerning for uncontrolled atopic disease, has trialed Zyrtec in the past without benefit.. 3. Swelling and syncope reported after a bee sting > 20 years ago. Not currently carrying an AIE.. 4. Hives and syncope reported with penicillin at age 18, avoidant since.. 5. Chronic lower airways symptoms concerning for possible asthma, occasional shortness of breath. History of COPD. No prior pulmonary evaluation.. 6. Avoidant of shellfish due to syncope after consuming lobster, additional details unclear. Eats finned fish without issue.. 7. Avoidant of codeine and morphine due to syncope and reduced blood pressure.. 8. Rashes with various fragrances.. * HPI: * Introduction: HPI: Murali Vidal, a 64-year-old female with pastmedical history [...] left eye. She was seen by her faculty neuropsychologist, whorecommended stopping Maxitrol and started her on a prednisolone eye drop, shewas also using Refresh ocular lubricant. She was, once again, seen by her faculty neuropsychologist who started a different prednisoloneeye drop. Symptoms persistedand she reports the swelling worsened, due to thisshe was seen at [facility] where she was given steroids andantihistamines, also sent home on prednisone and Benadryl. She reports shecontinued to use the second prednisolone drop she was prescribed. Several dayslater she was seen once again by her faculty neuropsychologist, who stopped theprednisolone ocular drop and recommended Refresh preservative-free drops. Afterfinishing her 7-day course of oral prednisone prescribed at the ER her symptomsresolved. She feels her left eye is still mildly swollen. Murali james reports a history of various medication allergies. Atage 18 she was prescribed penicillin and codeine due to a presumed infection,for which she passed out and developed swelling, other details are not clear.She has been avoidant of both since. Gege reports generalized erythema and itchingwith vancomycin. She is avoidant of morphine because it dropped my blood pressure,again additional details are not clear. Murali james endorses upper airway symptoms concerning foruncontrolled atopic disease. Descriptors of her symptoms are outlined below.She has taken Zyrtec previously without benefit. There [facility]. She has never undergone allergy testing or received allergenimmunotherapy. Murali james endorses occasional shortness of breath. Reportshistory of [...] cervical and skincancer. No prior pulmonary evaluation. S he also reports history of swelling and syncope following abee sting, this was over twenty years ago. She does not recall details, is onlyaware of being stung and waking up surrounded by medical personnel. She has notbeen stung since. She does not carry an AIE. A dditionally, Gege reports long history of sensitive skin.She is cautious with various fragrances that she uses. In the past has experiencederythematous, scaly rashes. Gege is avoidant of all shellfish as she passedout after eating lobster. She eats finned fish without issue. Gege is seen bycardiology due to a history of PVCs, currently on nebivolol. She lives with tanya and wsfmhedl-pi-txe. She denies a history of physician-diagnosed allergic rhinitis, recurrent sinusitis or otitis media, recurrent pneumonia, asthma/RAD, eczema, food allergies, urticaria/angioedema, medication allergies, contact dermatitis, latex allergy, eosinophilic esophagitis or stinging insect hypersensitivity. Today, she reports no fevers, chills, night sweats or other constitutional symptoms. * Allergic Rhinoconjunctivitis: Allergic rhinitis D o you have or suspect you have allergic rhinitis (itchy eyes, sneezing, congestion or runny nose triggered by allergies)? N o Eyes S pecific affected area: b oth (bilateral) O ccurence? i ntermittent H ow frequent? murali smith does this mostly occur? a nytime S ymptoms: i tching,watering,redness,sensitive to light,swelling of the lids Nose S pecific area affected: b oth (bilateral) O ccurence? i ntermittent H ow frequent? murali smith does this mostly occur? a nytime S ymptoms? i tching,congestion,sneezing jags,postnasal drainage Sinuses D o you have sinus pain? N o H ave you lost sense of taste? N o H ave you been treated with antibiotics for sinusitis? N o H ave you ever had a CT scan or xray? Y es W here? A [facility] W hen? 1 H ave you ever undergone sinus surgery? Y es W here? G [facility] Cough F requency: d aily I s phlegm produced? N o * Asthma: Cough D o you have a recurrent cough? Y es H ow often do you cough? d aily W hat triggers your cough? e xercise,tree pollen,grass pollen,weed pollen,cold air,sinus infections,house dusting or vacuuming,weather changes,bronchitis,mold,damp or musty areas,cleansers,spring (season), (season),fall (season),winter (season) I s your cough more bothersome at night? N o I s sputum produced? N o Wheezing D o you have recurrent wheezing or a history of wheezing sometime in your life? Y es D id you have symptoms of asthma as a child??No D id you have frequent respiratory infections as a child? N o W ere you ever hospitalized in the first 12 months of life for a respiratory infection in childhood? N o D o you still have wheezing? Y es H ow often do you get it? 2 -5 times per year I s your wheezing changing? s miranda W hat triggers your wheezing? e xercise,bronchitis D o you take an inhaled, rescue bronchodilator medication? Y es N miranda: A lbuterol,Other I s your bronchodilator used daily? Y es H ow often? t wice a daily W hen was your last dose of an inhaled bronchodilator? p ast few months H ave you taken oral steroids (Prednisone or Medrol) in the past? Y es H ow many times throughout your entire life??9 H ow many times in the last year? 4 Nocturnal Symptoms D o you have any of the following respiratory symptoms at night? c oughing that interrupts sleep Physical Performance H ow many blocks can you walk? (Enter 99 for unlimited) 1 H ow many flights of stairs can you climb without stopping? (Enter 99 for unlimited) 1 I f there are limitations, what symptoms limit further activity? s hortness of breath,fatigue,leg cramps,other D o you have any of the following additional problems? r estless sleep Effective treatments for cough and or wheezing R escue inhaler or nebulizer treatment: P roAir,Other O ral steroid: P rednisone I nhaled steroid/LABA combinations: A dvair HFA A ntireflux medication: p antoprazole (Protonix) * Urticaria: Urticaria (hives) D o you have recurrent hives? N o * Angioedema: Angioedema (swelling) D o you have recurrent swelling (angioedema)??No * Atopic dermatitis: Atopic dermatitis - Eczema D o you have chronic or recurrent atopic dermatitis or eczema? N o * Other Rash and Contact Dermatitis: Other rashes and contact dermatitis H ave you ever had any other form of rash or contact dermatitis? N o * Prior Evaluations and Treatments: Prior evaluations and treatments H ave you been evaluated by another physician for allergic rhinitis, cough, wheezing, asthma, urticaria, angioedema, atopic dermatitis or eczema??No H ave you undergone testing for any aforementioned conditions or symptoms? N o H ave you ever been on allergy immunotherapy??No H ave you ever passed out during a blood draw, shot or vaccination? N o Last dose of antihistamine: H as your antihistamine been effective in controlling any of your symptoms? N o D o you take any other psychiatric medication??No * Infections: Vaccination History F or children, are childhood vaccines up to date: Y es H ave you ever had a flu shot? N o H ave you ever had a pneumococcal vaccine ([id number])? N o H ave you ever had a tetanus vaccine ([id number])? Y es Ear Infections D o you have frequent ear infections? N o Sinusitis (Sinus infections) D o you have frequent episodes of sinusitis??No Sinus Symptoms and Surgery D o you have chronic or recurrent sinus symptoms? N o D o you have sinus pain? N o D o you have a loss of sense of taste? N o H ave you ever had a sinus CT or X-Ray? N o H ave your ever undergone sinus surgery? N o Bronchitis History D o you get frequent bronchitis? Y es H ow many episodes in your entire life? 5 H ow many episodes over the past 12 months??1 H ave you been treated with antibiotics for bronchitis? Y es H ow often in the past year? o nce W ere antibiotics oral, IV or both? o ral H ave you been hospitalized for treatment??No D id you require any other treatment? o ral steroids H ave you been seen by an saw straightener or trademark paralegal for recurrent bronchitis? N o Pneumonia History H ave you ever had pneumonia or recurrent pneumonia? Y es H ow many episodes in your entire life? 2 H ow many episodes in the past 12 months? 0 H ave you been treated with antibiotics for pneumonia? Y es H ave you been hospitalized for treatment??No H ave you been seen by an saw straightener or trademark paralegal to evaluate your immune system function for recurrent pneumonia N o Skin and Other Infections D o you get frequent skin infections (cellulitis)? Y es H ow many episodes in your entire life? 9 H ow many episodes in the past 12 months? 1 H ave you been treated with antibiotics for cellulitis? Y es H ow often in the past year? o nce W ere antibiotics oral, IV or both? o ral H ave you been hospitalized for treatment??No H ave you been seen by an saw straightener or trademark paralegal to evaluate your immune system function for recurrent skin infections? N o D o you get any other frequent infections??No * Food allergy: Food Allergy D o you currently have or have you ever had any proven or suspected food allergies? Y es W hat food(s)? s hellfish H ow quickly do symptoms come on after food ingestion? s econds H ave you ever been hospitalized or treated urgently for symptoms of a severe allergic reaction (anaphylaxis)? Y es D o you carry self-injectable epinephrine for your prior reaction(s)? N o H ave you previously seen an saw straightener for evaluation of possible food allergy? N o * Eosinophilic GI: Eosinophilic Gastrointestinal Disease D o you have difficulty swallowing foods or have you previously needed to have your esophagus dilated for food impaction or 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? Y es W hat part of the GI tract is involved? e sophagus W hat symptoms have been caused by your eosinophilic GI disease? d ifficulty swallowing liquids,difficulty swallowing solids W hen did symptoms start? 5 -10 years ago W as endoscopy performed to verify the diagnosis? Y es W hat tests were performed? U pper endoscopy (EGD),Dilation of esophagus H ave you ever been evaluated by an saw straightener for possible allergies 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? N o * Stinging Insects: Insect Reaction(s) H ave you ever experienced a stinging insect reaction? Y es W hat type of stinging insect? u nknown W as the reaction: s mall local - where sting occurred W hat symptoms were experienced? s yncope (passing out) W ere you taken to the ER for evaluation? Y es H ave you been previously prescribed an epinephrine autoinjector? N o H ave you previously seen an saw straightener for evaluation of possible stinging insect allergy? N o H ave you been treated for your stinging insect reaction with immunotherapy? N o * Medication allergy: Medication Allergy D o you feel you are allergic to any medications? Y es W hat type of medication? a ntibiotic (Penicillin or Amoxicillin or other antimicrobial),analgesic (NSAID or Ibuprofen or Codeine or Morphine or other analgesic) H ow was the medication administered? o ral,IV W hat was the medication administered for??pain,surgery,other diagnosis W hat symptom(s) did the medication cause??shortness of breath,vomiting,hypotension (low blood pressure) I f antibiotic, what type: p enicillin-derivative I f analgesic, what type: o pioid H ave you been evaluated by an saw straightener previously for possible drug allergy? N o * ROS: A LLERGY: Positive p er the HPI and history, otherwise unremarkable.?runny nose Y es. s cratchy throat Y es. i tchy eyes Y es. e ar fullness?No. s inus congestion Y es. S PECIAL SENSES: Positve for n one. c ataracts N o. g laucoma?No. l oss of hearing N o. i tching in ears N o. r inging in ears Y es.?loss of balance Y es. l oss of smell N o. d ry eyes Y es. e xcessive tearing Y es. i tching eyes Y es. l oss of taste N o. c onjunctivitis N o.?ear infections N o. C ONSTITUTIONAL: weight gain N o. l oss of appetite N o. f ever?No. w eakness Y es. w eight loss Y es. f atigue Y es. n ight sweats?Yes. P ositive for n one. E NT: cold Y es. c ough Y es. e pistaxis N o.?hearing loss Y es. c hange in voice N o. s ore throat N o. r inging in ears N o. s inus pain N o. P ositive p er the HPI and history, otherwise unremarkable. R ESPIRATORY: shortness of breath Y es. c hest congestion Y es.?cough Y es. P ositive p er the HPI and history, otherwise unremakable. ? O PHTHALMOLOGY: diminished vision N o. e ye irritation Y es. d rainage from eyes Y es. b lurring of vision Y es. P ositive for p er the HPI and history, otherwise unremarkable. i tching Y es. s ensitivity to light Y es. d ischarge N o. w atering Y es. s welling of the eyelids Y es. r edness Y es. E NDOCRINOLOGY: polydipsia N o. p olyuria N o. w eight loss?Yes. s leep disturbance Y es. c old intolerance Y es. h eat intolerance N o. d iabetes N o. P ositive for n one. C ARDIOLOGY: chest pain Y es. p alpitations Y es. l eg edema?Yes. d izziness N o. s hortness of breath Y es. P ositive for n one.? G ASTROENTEROLOGY: dysphagia Y es. a bdominal pain Y es. n ausea?Yes. v omiting Y es. c onstipation Y es. d iarrhea Y es. b lood in stool N o. i ndigestion N o. h emorrhoids N o. P ositive for n one. ? U ROLOGY: difficulty urinating N o. b lood in urine N o. f requent urination Y es. u rinary incontinence N o. r ecurrent UTI N o. P ositive for n one. D ERMATOLOGY: rash N o. m ole Y es. l umps N o. d ry or sensitive skin Y es. h ben (urticaria) N o. a cne N o. s kin cancer Y es. P ositive for p er the HPI and history, otherwise unremakable. N EUROLOGY: headache N o. t ingling numbness Y es. s eizures N o. i nsomnia Y es. m chelsey loss Y es. d izziness N o. g ait abnormality N o. P ositive for n one. H EMATOLOGY/LYMPH: Positive for n one. M USCULOSKELETAL: joint swelling Y es. j oint pain Y es. l eg cramps Y es. j oint stiffness Y es. s ciatica Y es. o steoporosis N o. f racture Y es. c arpal tunnel N o. g out N o. P ositive for n one. P SYCHOLOGY: high stress level N o. d epression N o. s leep disturbances Y es. s uicidal ideation N o. e ating disorder N o. m ental or physical abuse N o. a nxiety Y es. P ositive for n one. F EMALE REPRODUCTIVE: heavy periods N o. h ot flashes Y es. a bnormal vaginal discharge N o. s exually active N o. i nfertility N o. f requent yeat infections N o. p elvic pain N o. b reast pain N o. n ipple discharge No. A re you ? N o. A re you planning on a future pregancy? N o. ? A ll other review of systems per the HPI and history, otherwise unremarkable. * Medical History: * Medications: T aking Rivaroxaban 20 MG Tablet 1 tablet with food Orally Once a day , Taking Pantoprazole Sodium 20 MG Tablet Delayed Release 1 tablet 1/2 to 1 hour before morning meal Orally Once a day , Taking Ondansetron 4 MG Tablet Disintegrating 1 tablet on the tongue and allow to dissolve Orally Once a day , Taking Nystatin 582724 UNIT/GM Cream 1 application Externally Twice a day , Taking Nebivolol HCl 5 MG Tablet 1 tablet Orally Once a day , Taking Levothyroxine Sodium 88 MCG Tablet 1 tablet in the morning on an empty stomach Orally Once a day , Taking Lactobacillus - Capsule as directed Orally , Taking Folic Acid 1 MG Tablet 1 tablet Orally Once a day , Taking Fluticasone Propionate 50 MCG/ACT Suspension 1 spray in each nostril Nasally Twice a day , Taking Ferrous Sulfate 325 (65 Fe) MG Tablet 1 tablet Orally Three times a Week , Taking EPINEPHrine 0.3 MG/0.3ML Solution Auto-injector as directed Injection as directed , Taking Advair HFA 230-21 MCG/ACT Aerosol 2 puffs Inhalation Twice a day , Taking Albuterol Sulfate HFA 108 (90 Base) MCG/ACT Aerosol Solution 2 puffs as needed Inhalation every 4 hrs , Taking AeroChamber MV - Miscellaneous as directed Any adult spacer Objective: * Vitals: * Examination: G eneral examination: General appearance: p leasant, well-developed, well-nourished, female, i n no apparent distress, speaking in full sentences. HEENT: c onjunctiva are normal bilaterally, no swelling noted surrounding orbits, T Ms without evidence of acute infection, turbinates 2+ swollen and pale inferiorly bilaterally, clear rhinorrhea is present, no polyps noted, no septal perforation, posterior oropharynx is clear without exudates, erythema on pharyngeal wall, no exudates, no tongue swelling, and uvula is midline. Oral cavity: n ormal, no lesions. Breasts : n ot performed. Heart: R RR, S1-S2, no murmurs, no rubs, no gallops. Lungs: c lear to auscultation in all lung leiva, no wheezes, no crackles, no rhonchi. Neurologic exam: u nremarkable. Skin: n ormal, no visible rash, dermatographism, urticaria, angioedema. Back: n ormal. Extremities: n ormal ROM, no clubbing, no cyanosis, no edema. Genitalia: n ot performed. Assessment: * Assessment: 1. L ocalized swelling, mass and lump, head - R22.0 (Primary) 2 . A llergy status to unspecified drugs, medicaments and biological substances - Z88.9 3 . O ther urticaria - L50.8 4 . H ypertrophy of nasal turbinates - J34.3 5. C hronic rhinitis - J31.0 6 . S hortness of breath - R06.02 ? 7 . T oxic effect of venom of bees, accidental (unintentional), initial encounter - T63.441A 8 . R sejal and other nonspecific skin eruption - R21 9 . Allergy status to penicillin - Z88.0 1 0. O ther heart disorders in diseases classified elsewhere - I52 Plan: * Treatment: 2. A llergy status to unspecified drugs, medicaments and biological substances Notes: See plan above 3. O ther urticaria Notes: Also with reports of urticaria with other medications, will order tryptase level to assess for mast cell conditions. Consider urine studies, however will obtain baseline tryptase first ? 4. H ypertrophy of nasal turbinates Notes: Gege presents with upper airway symptoms concerning for uncontrolled atopic disease. She has two dogs in her home. She has trialed Zyrtec in the past without benefit. - Discussed SPT, however will obtain ImmunoCaps first as Gege is being sent for laboratory work. - Consider returning for SPT pending laboratory review 5. C hronic rhinitis Notes: See plan above 6. S hortness of breath Continue Advair HFA Aerosol, 230-21 MCG/ACT, 2 puffs, Inhalation, Twice a day; S tart Albuterol Sulfate HFA Aerosol Solution, 108 (90 Base) MCG/ACT, 2 puffs as needed, Inhalation, every 4 hrs, 30 days, 1, Refills 0; S tart AeroChamber MV Miscellaneous, -, as directed Any adult spacer, 30 days, 1, Refills 11. Notes: Gege reports history of COPD. She [...] for spirometry and further evaluation and management 7. T oxic effect of venom of bees, accidental (unintentional), initial encounter Start EPINEPHrine Solution Auto-injector, 0.3 MG/0.3ML, as directed, Injection, as needed, 30 days, 1, Refills 0. Notes: Gege reports being stung by a [...] discussed at length. - Follow-up as above 8. R sejal and other nonspecific skin eruption Notes: Gege reports erythematous and dry rashes that occurs with various topical products and fragrances. - Consider patch testing, discuss further next visit 9. A llergy status to penicillin Notes: Gege reports passing out while taking penicillin in the past, further details are not clear. - Consider returning for penicillin testing, Gege is considering at this time 10. 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 If Gege pursues immunotherapy, discuss this further * Procedure Codes: 9 8960 SELF-MGMT EDUC & TRAIN, 1 PT, 60975 PT-FOCUSED HLTH RISK ASSMT, G8427 DOC MEDS VERIFIED W/PT OR RE, A4617 Mouthpiece, 13049 RESPIRATORY FLOW VOLUME LOOP, 13242 Breann Chavira - Incident-to * Preventive Medicine: Counseling: D iet a s tolerated. E xercise C ontinue activity as usual. M edication instruction: W atch for side effects of prescribed medications, Nasal steroid/antihistamine instruction: avoid septum, Injectable epinephrine education and instruction w/ discussion of signs and symptoms of anaphylaxis and reasons to seek urgent or emergent care. S moking Patient counselled on the dangers of tobacco use and urged to quit. 1 10/10/2023 E ducation: G ENERAL EDUCATION: Our staff spent an additional 30 minutes in direct contact with the patient educating them on their current diagnoses and proper treatment and prevention of symptoms and the proper use of medications. P atient education material sent to portal? Y es C are goal follow up plan BMI management provided Y es Above Normal BMI Follow-up D ietary management education, guidance, and counseling * Follow Up: 4 Weeks (Reason: Evaluation and Management, Laboratory Review, Spirometry/Flow Volume Loop) * Billing Information: * Visit Code: 30282 Office Visit, New Pt., Level 5. Modifiers: 25 * Procedure Codes: 99097 SELF-MGMT EDUC & TRAIN, 1 PT. 01857 PT-FOCUSED HLTH RISK ASSMT. G8427 DOC MEDS VERIFIED W/PT OR RE. A4617 Mouthpiece. 52162 RESPIRATORY FLOW VOLUME LOOP. 88159 Breann Chavira - Incident-to. * Electronic signature of Breann Chavira DNP, FNP-C on 08/06/2025 at 03:13 PM BACKUP ADMINISTRATOR Sign off status: Pending * Provider: VALERIE AlmonteC Date: 11/08/2023 Generated for Neal gonzalez/Randall/eTransmsarabjit on: 10/06/2024 03:13 PM BACKUP ADMINISTRATOR History and Physical Notes * HPI (History of Present Illness) Category Sub-Category Detail Notes Category Not es *Introduction HPI: Gege Vidal, a 64-year-old female with past medical [...] left eye. She was seen by her faculty neuropsychologist, who recommended stopping Maxitrol and started her on a prednisolone eye drop, she was also using Refresh ocular lubricant. She was, once again, seen by her faculty neuropsychologist who started a different prednisolone eye drop. Symptoms persistedand she reports the swelling worsened, due to this she was seen at [facility] where she was given steroids and antihistamines, also sent home on prednisone and Benadryl. She reports she continued to use the second prednisolone drop she was prescribed. Several days later she was seen once again by her faculty neuropsychologist, who stopped the prednisolone ocular drop and [...] nebivolol. She lives with her son and mdvjxbtf-sl-lca. She denies a history of physician-diagnosed allergic rhinitis, recurrent sinusitis or otitis media, recurrent pneumonia, asthma/RAD, eczema, food allergies, urticaria/angioedema, medication allergies, contact dermatitis, latex allergy, eosinophilic esophagitis or stinging insect hypersensitivity. Today, she reports no fevers, chills, night sweats or other constitutional symptoms *Allergic Rhinoconjunctivitis Eyes Specific affected area:: both (bilateral) Occurence?: intermittent How frequent?: daily When does this mostly occur?: anytime Symptoms:: itching,watering,redness,sens itive to light,swelling of the lids Cough Frequency:: daily Is phlegm produced?: No Nose Specific area affected:: both (b ilateral) Occurence?: intermittent How frequent?: daily When does this mostly occur?: anytime Symptoms?: itching,congestion,sneezing j ags,postnasal drainage Sinuses Do you have sinus pain?: No Have you lost sense of taste?: No Have you been treated with antibiotics f or sinusitis?: No Have you ever had a CT scan or xray?: Ye s Where?: [facility] When?: 06/2024 Have you ever undergone sinus surgery?: Yes Where?: [facility] Allergic rhinitis Do you have or suspe ct you have allergic rhinitis (itchy eyes, sneezing, congestion or runny nose triggered by allergies)?: No *Asthma Cough Do you have a recurrent cough?: Yes How often do you cough?: daily What triggers your cough?: exercise,tree pollen,grass pollen,weed pollen,cold air,sinus infections,house dusting or vacuuming,weather changes,bronchitis,mold,damp or musty areas,cleansers,spring (season), (season),fall (season),winter (season) Is your cough more bothersome at night?: No Is sputum produced?: No Effective treatments for cou [...] No Do you still have wheezing?: Yes How often do you get it?: 2-5 times per year Is your wheezing changing?: same What triggers your wheezing?: exercise,b ronchitis Do you take an inhaled, rescue bronchodi lator medication?: Yes Name:: Albuterol,Other Is your bronchodilator used daily?: Yes How often?: twice a daily When was your last dose of an inhaled bronchodilator?: past few months Have you taken oral steroids (Prednisone or Medrol) in the past?: Yes How many times throughout your entire life?: 9 How many times in the last year?: 4 [...] Have you ever had a pneumococcal vaccine (GLR-Ptpgjkc-Yqcdhngmk)?: No Have you ever had a tetanus [...] Do you get frequent bronchiti s?: Yes How many episodes in your entire life?: 5 How many episodes over the past 12 months?: 1 Have you been treated with antibiotics for bronchitis?: Yes How often in the past year?: once Were antibiotics oral, IV or both?: oral Have you been hospitalized for treatment?: No Did you require any other treatment?: oral steroids Have you been seen by an saw straightener or trademark paralegal for recurrent bronchitis?: No Pneumonia History Have you ever had pneumonia or recurrent pneumonia?: Yes How many episodes in your entire life?: 2 How many episodes in the past 12 months?: 0 Have you been treated with antibiotics for pneumonia? : Yes Have you been hospitalized for treatment?: No Have you been seen by an saw straightener or trademark paralegal to evaluate your immune system function for recurrent pneumonia: No Skin and Other Infections Do you get jose francisco quent skin infections (cellulitis)?: Yes How many episodes in your entire life?: 9 How many episodes in the past 12 months?: 1 Have you been treated with antibiotics for cellulitis? : Yes How often in the past year?: once Were antibiotics oral, IV or both?: oral Have you been hospitalized for treatment?: No Have you been seen by an saw straightener or trademark paralegal to evaluate your immune system function for [...] are allergic to any medications? : Yes What type of medication?: antibiotic (Penicillin or Amoxicillin or other antimicrobial),analgesic (NSAID or Ibuprofen or Codeine or Morphine or other analgesic) How was the medication administered?: oral,IV What was the medication administered for?: pain,surgery,other diagnosis What symptom(s) did the medication cause?: shortness of breath,vomiting,hypotension (low blood pressure) If antibiotic, what type:: penicillin-de rivative If analgesic, what type:: opioid Have you been evaluated by a n saw straightener previously for possible drug allergy?: No *Stinging Insects Insect Reaction(s) Have you ev er experienced a stinging insect reaction? : Yes What type of stinging insect?: unknown Was the reaction:: small local - where sting occurred What symptoms were experienced?: syncope (passing out) Were you taken to the ER for evaluation?: Yes Have you been previously prescribed an epinephrine autoinjector?: No Have you previously seen an saw straightener for evaluation of possible stinging insect allergy?: No Have you been treated for your stinging insect reaction with immunotherapy?: No *Prior [...] any proven or suspected food allergies?: Yes What food(s)?: shellfish How quickly do symptoms come on after food ingestion?: seconds Have you ever been hospitalized or treated urgently for symptoms of a severe allergic reaction (anaphylaxis)?: Yes Do you carry self-injectable epinephrine for your prior reaction(s)?: No Have you previously seen an saw straightener for evaluation of possible food allergy?: No *Eosinophilic GI Eosinophilic Gastroi ntestinal Disease Do you have difficulty swallowing foods or have you previously needed to have your esophagus dilated for food impaction or 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?: Yes What part of the GI tract is involved?: esophagus What symptoms have been caused by your eosinophilic GI disease?: difficulty swallowing liquids,difficulty swallowing solids When did symptoms start?: 5-10 years ago Was endoscopy performed to verify the diagnosis?: Yes What tests were performed?: Upper endoscopy (EGD),Dilation of esophagus Have you ever been evaluated by an saw straightener for 

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
[2025-08-06 15:12] VITALS: BP 143/69; PULSE 73; RESP 74; TEMP 36.5; O2SAT 94
--- OUTSIDE RECORDS SUMMARY | 2025-08-06 15:13 | XMS_ITS | Clinical Summary ---
Author Organization [facility] Address [address] [place] [address] Care Team Providers Care Spinner Continuous Name Role Phone Eris Vu MD Primary Care Provider [phone] Allergies Active Allergy Reactions Criticality Noted Date [...] this topic Medical Devices Implanted Type Area Environmental Field Services Technician Device Identifier Shelf Expiration Date Model / Serial / Lot Tecnis 1-Piece Iol Implanted:Qty: 1 on 06/08/2024 by Jadon Vu MD at [facility] Left: Eye [employer] 10/27/2026 / [id number] / Insurance MEDICARE MEDICAID Care Teams Spinner Continuous Relationship Specialty Start Date End Date Eris Vu MD [address] [place] [address] PCP - General FAMILY PRACTICE 06/05/24
--- OUTSIDE RECORDS SUMMARY | 2025-08-06 15:13 | XMS_ITS | Clinical Summary ---
Author Organization [facility] Address [address] [place] [address] Care Team Providers Care Computer Technology Teacher Name Role Phone Eris Vu MD Primary Care Provider [phone] Allergies Active Allergy Reactions Criticality Noted Date Comments Adhesive Tape-Silicones Other (See Comments) Medium 08/19/2014 Blisters Codeine Shortness of Breath/Wheezing High 08/19/2014 Mglhlsqeg-D-Fyzaubu-Se jun-Brom Other (See Comments) Low 08/19/2014 Alcohol- [...] Encounters Date Type Department Care Team Description 08/03/2025 External Device Data ST[facility] ABSTRACTION Provider, Abstract 07/11/2025 Refill [facility] Oncology and Hematology [place] [address] [place] [address] Chris Owens MD 07/07/2025 External Device Data STL ABSTRACTION Provider, Abstract 07/06/2025 External Device Data ST[facility] ABSTRACTION Provider, Abstract 06/07/2025 1:00 PM CDT Office Visit [facility] Oncology and Hematology - [place] [address] [place] [address] Chris Owens MD Chronic anemia (Primary Dx); Encounter for screening for lung cancer; Anemia due to vitamin B12 deficiency, unspecified B12 deficiency type 06/03/2025 Orders Only [facility] Oncology and Hematology [place] [address] [place] [address] Chris Owens MD 06/01/2025 External Device Data [...] on file Legal Sex Female 12:44 PM YARN HAULER Gender Identity Not on file Sexual Orientation [...] st Contact Info) Description 09/02/2025 11:00 AM YARN HAULER Office Visit [facility] Oncology and Hematology - [place] [address] [place] [address] Chris Owens MD [address] [facility] [address] [place] [address] Health Maintenance Due Date Last Done Comments Pre-Diabetes and Diabetes Screening 1961 DTAP/TDAP/TD VACCINES (1 - Tdap) 1980 FIT-DNA Q 3 years 2006 FIT/FOBT Q 1 year 2006 Flex Sig/CT Colonography Q 5 years 2006 ZOSTER VACCINE (1 of 2) 2011 Lung Cancer Screening 07/15/2020 07/15/2019 Medicare Advantage ([place]) Preventative Visit/Annual Wellness Visit 09/16/2024 INFLUENZA VACCINE [...] PANEL (06/02/2025 12:37 PM CDT) Blood us Chris Owens MD CHEMISTRY ORDERABLES Final Resu lt * MAMMO SCREENING BILAT (12/17/2024 10:40 AM CDT) Anatomical Region Laterality Modality Breast Bilateral Mammography us Chris Owens MD MAMMO ORDERABLES Final Result * CT LUNG SCREENING (07/15/2019) Anatomical Region Laterality Modality Chest Computed Tomogra phy us Chris Owens MD CT ORDERABLES Final Result from Last 3 Months or Most Recently Relevant to Health Maintenance Insurance [facility] DUAL COMPLETE PPO DSNP [facility] [id number] Care Teams Computer Technology Teacher Relationship Specialty Start Date End Date Eris Vu MD PCP - General Family Practice 02/21/23
--- OUTSIDE RECORDS SUMMARY | 2025-08-06 15:13 | XMS_ITS | Clinical Summary ---
Author Organization [facility] Address [address] [place] [address] Care Team Providers Care Bill Of Lading Clerk Name Role Phone Boris Mcnair DO Primary Care Provider Source Comments [facility],non-owned Affiliates and Associated Physician Practices is amultiple site organization consisting of ambulatory clinics and hospital sitesin [place], [place], [place] and [place]. This disclosure is being madepursuant to the Care Everywhere program and may not contain all information available regarding this patient. Last updated 18.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 Gender Identity Not on file Sexual [...] - PCV) 1980 LUNG CANCER SCREENING 2011 Respiratory Syncytial Virus (RSV) Vaccine Pt: or over 60 yrs (1 - Risk 50-74 years 1-dose series) 2011 ZOSTER VACCINE (1 of 2) 2011 SCREENING FOR DIABETES 02/07/2021 02/07/2018 DEPRESSION SCREENING 09/16/2024 MEDICARE AWV CALENDAR YEAR 2024 COVID-19 VACCINE (1 - 2024-2 6 season) 2025 INFLUENZA VACCINE (#1) 2025 HEPATITIS [...] - 26 mg/dL 02/07/2018 1:22 PM CDT [facility] Creatinine 1.0 0.6 - [...] Lab Venipuncture / Unknown 02/07/2018 12:50 PM T 02/07/2018 12:55 PM CDT Ester Haresh Barajas DO LAB - CHEMISTRY ORDERABLES Final Result [address] [place] [address], [facility] [phone] from Last 3 Months or Most Recently Relevant to Health Maintenance Insurance MEDICARE [facility] MANAGED MEDICARE ADV [facility] MANAGED MEDICARE ADV MEDICAID [place] SELF PAY NO INSURANCE Member Subscriber Plan / Payer (Ef fective for All Dates) Name:NenitaMing lunabila Bird Member ID:Not on file Relation to Subscriber:Not on file Name:GEGE GUTIERRES Subscriber ID:Not on file (Home) Address: [address] [place] [address] Payer ID:Not on file Group ID:Not on file Type:Self Pay Address: [place], [place] MEDICARE MEDICAID - OUT OF STATE [facility] MANAGED MEDICARE ADV [facility] MANAGED MEDICARE ADV MEDICAID [place] [facility] MANAGED MEDICARE ADV MEDICAID [place] [address] [place] [address] [facility] MANAGED MEDICARE ADV MEDICAID [place] [facility] MANAGED MEDICARE ADV Advance Directives * Full Code (Latest Code Status on File) Date Activated Date Inactivated Comments 02/15/2018 8:10 AM 02/15/2018 12:04 PM * Full Code Date Activated Date Inactivated Comments 02/14/2018 7:57 AM 02/14/2018 6:16 PM Care Teams Bill Of Lading Clerk Relationship Specialty Start Date End Date Boris Mcnair DO [address] [place] [address] PCP - General 04/07/19
--- OUTSIDE RECORDS SUMMARY | 2025-08-06 15:13 | XMS_ITS | Patient Health Record ---
Author Organization [facility] ([address]) Address [address] [place] [address] Care Team Providers Care Ladle Operator Name Role Phone Boris Mcnair Primary Care Provider Breann Zuniga Unavailable [phone] Eris Vu Unavailable Unavailable Allergies Allergen (clinical drug ingredient) Drug/Non Drug Allergy documented on EMR Reaction Allergy Type Onset Date Status codeine Codeine anaphylaxis Drug Allergy Activ e hydromorphone HYDROmorphone rash Drug Allergy Active Latex Latex rash Allergy Active levofloxacin levoFLOXacin rash Drug Allergy A ctive Results Component Value Reference Range Notes YELLOW HORNET (I5) IGE Reviewed date:06/15/2025 01:47:18 PM Interpretation:Normal Performing Lab:[facility], [facility], [address] [place], [address] Pietro Forrest MD Notes/Report: NON-FASTING; NON-FASTING COLLECTION REQUIREMENTS NOT MET. PATIENT ADVISED TO RETURN. YELLOW HORNET (I5) IGE <0.10 CLASS 0 [...] analytical performance characteristics have been determined by [employer] [employer]. It has not been cleared or approved by the U.S. Food and Drug Administration. This assay has been validated pursuant to the CLIA regulations and is used for clinical purposes. PAPER WASP (I4) IGE Reviewed date:06/13/2025 03:44:59 PM Interpretation:Normal Performing Lab:[facility], [place], [address] Pietro Forrest MD Notes/Report: NON-FASTING; NON-FASTING; NON-FASTING; [...] analytical performance characteristics have been determined by [facility]. It has not been cleared or approved by the U.S. Food and Drug Administration. This assay has been validated pursuant to the CLIA regulations and is used for clinical purposes. YELLOW JACKET (I3) IGE Reviewed date:06/13/2025 03:44:52 PM Interpretation:Normal Performing Lab:[facility], [place], [address] Pietro Forrest MD Notes/Report: NON-FASTING; NON-FASTING; NON-FASTING; NON-FASTING YELLOW JACKET (I3) IGE <0.10 CLASS 0 WHITE-FACED HORNET (I2) IGE Reviewed date:06/13/2025 03:45:21 PM Interpretation:Normal [facility]forming [facility], [address] [place], [address] Pietro Forrest MD Notes/Report: NON-FASTING; NON-FASTING; NON-FASTING; NON-FASTING WHITE-FACED HORNET (I2) IGE <0.10 CLASS 0 BASOFUNCTION HRT AMOXICILLIN Reviewed date:06/16/2025 11:47:53 AM Interpretation:Normal Performing Lab:[facility], [address], [address] Glenroy Liao PhD BCLD (ABB) Notes/Report: SPLIT 06/08/2025 FROM [id number] BASOFUNCTION HRT AMOXICILLIN* <0.1 <1.3 ng/mL FLAG Interpretation: A = Abnormal, H = High, L = Low HONEY BEE (I1) IGE Reviewed date:06/13/2025 03:45:08 PM Interpretation:Normal Performing Lab:[facility], [address] [place], [address] Pietro Forrest MD Notes/Report: NON-FASTING; NON-FASTING; NON-FASTING; NON-FASTING HONEY BEE (I1) IGE <0.10 CLASS 0 -5-HIAA,Quant.,24 Hr Urine Reviewed date:01/04/2025 07:56:32 AM Interpretation:Normal Performing Lab:[address] [id number], Phone - [phone], Director - Lyndon Notes/Report: Test(s) 193301-6-NMHU, Urine; 144941-DDB, Urine was developed and its performance characteristics determined by [facility]. It has not been cleared or approved by the Food and Drug Administration. 5-HIAA, Urine 4.4 Undefined mg/L 5-HIAA, Urine, 24hr 4.4 0.0-14.9 mg/24 hr -VMA (Vanillylmandelic Acid) , 24-Hour Urine Reviewed date:01/04/2025 07:56:42 AM Interpretation:Normal Performing Lab:[address] [id number], Phone - [phone], [facility] Notes/Report: Test(s) 956370-9-JYVO, Urine; 368166-XSA, Urine was developed and its performance characteristics determined by [facility]. It has not been cleared or approved by the Food and Drug Administration. VMA, Urine 2.7 Undefined mg/L VMA, Urine, 24hr 2.7 0.0-7.5 mg/24 hr -Metanephrines, Frac., Pl. F ree Reviewed date:01/04/2025 03:24:04 PM Interpretation:Normal Performing Lab:[address] [id number], Phone - [phone], [facility] Notes/Report: Test(s) 537400-Kdmymoivseookzz, Pl; 848917-Mivcjostersj, Pl was developed and its performance characteristics determined by [facility]. It has not been cleared or approved by the Food and Drug Administration. Normetanephrine, Pl 142.7 0.0-285.2 pg/mL Metanephrine, Pl <25.0 0.0-88.0 pg/mL -Histamine Determination, Ur ine Reviewed date:12/30/2024 04:37:39 PM Interpretation:Normal Performing Lab:[address] [id number], Phone - [phone], [facility] Notes/Report: Test(s) 607809-Ueawfhrrh,ug/L,U This test was developed and its performance characteristics determined by [facility]. It has not been cleared or approved by the Food and Drug Administration. Histamine,ug/L,U 14 Not Estab. ug/L Histamine,ug/24hr,U 14 0-65 ug/24 hr -HVA (Homovanillic Acid), 24 -Hour Urine Reviewed date:01/04/2025 07:56:37 AM Interpretation:Normal Performing Lab:[address] [id number], Phone - [phone], [facility] Notes/Report: Test(s) 697968-8-LHMN, Urine; 014179-POD, Urine was developed and its performance characteristics determined by [facility]. It has not been cleared or approved by the Food and Drug Administration. HVA, Urine 3.5 Undefined mg/L This test was developed and its performance characteristics determined by [facility]. It has not been cleared or approved by the Food and Drug Administration. HVA, Urine, 24hr 3.5 0.0-10.0 mg/24 hr -Tryptase ([id number]) Reviewed date:12/10/2024 07:34:10 AM Interpretation:Normal Performing Lab:[facility] [address] [id number], Phone - [phone], Director - Lyndon Notes/Report: Tryptase 6.0 2.2-13.2 [...] 3.03 SpiroPredicted_FEV1 2.38 SpiroPredicted_FEV1_OVER_FVC 77.87 SpiroPredicted_PEF 5.66 BASOPHIL ACTIVATION TEST (FM LP)* Reviewed date:06/24/2025 04:33:01 PM Interpretation:Normal Performing Lab:[facility], [address] [place] [address], [phone] Glenroy Liao PhD BCLD (KELLI) Notes/Report: SPLIT 06/08/2025 FROM [id number] BASOPHIL ACTIVATION TEST (FMLP)* 10.0 >3.7 ng/mL [...] developed and its performance characteristics determined by [facility]. It has not been cleared or approved by the U.S. Food and Drug Administration. FLAG Interpretation: A = Abnormal, H = High, L = Low Reason For Referral No Information Medications Medication [...] dissolve Orally Once a day Active Nystatin 948475 UNIT/GM 1 application Externally Twice a day [...] Status Risk Notes Problem Allergy to penicillin (20940032) Allergy status to penicillin (Z88.0) Active confirmed Problem Eruption of skin (451086795) Rash and other nonspecific skin eruption (R21) Active confirmed Problem Carotid artery syndrome hemispheric (088113934) Carotid artery syndrome (hemispheric) (G45.1) Active confirmed Problem Heart disease (15793747) Other heart disorders in diseases classified elsewhere (I52) Active confirmed Problem Chronic rhinitis (93613723) Chronic rhinitis (J31.0) Active confirmed Problem Hypertrophy of nasal turbinates (28201029) Hypertrophy of nasal turbinates (J34.3) Active confirmed Problem Urticaria (657443243) Other urticaria (L50.8) Active confirmed Problem Fibromyalgia (698213594) Fibromyalgia (M79.7) Active confirmed Problem Swelling of head (789907441) Localized swelling, mass and lump, head (R22.0) Active confirmed Problem Toxic effect of venom (97630391) Toxic effect of venom of bees, accidental (unintentional), initial encounter (T63.441A) Active confirmed Problem Shortness of breath (342478729) Shortness of breath (R06.02) Active confirmed Problem Drug allergy (470632248) Allergy status to unspecified drugs, medicaments and biological substances (Z88.9) Active confirmed Vital Signs Oximetry 97 % 06/08/2025 Blood pressure diastolic 67 mm Hg 06/08/2025 Height 64 in 06/08/2025 Blood pressure systolic 156 mm Hg 06/08/2025 Weight 191.0 lbs 06/08/2025 BMI 32.78 kg/m2 06/08/2025 Encounters Encounter Location Date Provider Diagnosis [facility] [address] [place] [address] 11/09/2024 Breann Chavira Localized swelling, mass and [...] elsewhere I52 [facility] [address] [place] [address] 10/06/2024 Breann Chavira Localized swelling, mass and [...] hypertension R03.0 [facility] [address] [facility] [address] [place] [address] 08/10/2024 Breann Chavira Localized swelling, mass and [...] elsewhere I52 [facility] [address] [facility] [address] [place] [address] 04/13/2025 rBeann Chavira Hypertrophy of nasal turbinates J34.3 ; [...] hypertension R03.0 [facility] [address] [facility] [address] [place] [address] 06/08/2025 Breann Chavira Shortness of breath R06.02 [...] blood-pressure reading, without diagnosis of hypertension R03.[address] [address] 11/02/2024 Breann Chavira [facility] [address] [place] [address] 09/29/2024 Breann Chavira [address] [address] 06/24/2025 Breann Chavira [address] [address] 06/15/2025 Breann Chavira [facility] [address] [place] [address] 03/17/2025 Breann Chavira [address] [address] 01/04/2025 Breann Chavira [address] [address] 12/17/2024 Breann Chavira Other urticaria L5 0.8 and Localized swelling, mass and lump, head R22.[address] [address] 11/18/2024 Breann Chavira [address] [address] 11/09/2024 Breann Chavira Assessments Encounter Date Diagnosis [...] as she would like to go to [facility]. - Will request records from [facility], as well as from her savings counselor. Still awaiting. - Follow-up in 4 weeks [...] beer without issue. She was treated at [facility], she did not receive epinephrine [...] request records. - Will request records from [facility], as well as from her savings counselor. Still awaiting. - Follow-up in 4 weeks for further evaluation and management 11/09/2024 Allergy status to unspecified drugs, medicaments and biological substances (ICD-10 - Z88.9) See plan above 04/13/2025 Chronic rhinitis (ICD-10 - J31.0) See [...] Follow-up in 4 weeks for further evaluation 12/17/2024 Other urticaria (ICD-10 - L50.8) 12/17/2024 Localized swelling, mass and lump, head (ICD-10 - R22.0) 08/10/2024 Localized swelling, mass and lump, head [...] plans below. - Will request records from [facility], as well as from her savings counselor. - Follow-up in 4 weeks for laboratory review 08/10/2024 Allergy status to unspecified drugs, medicaments and biological substances (ICD-10 - Z88.9) See plan above 08/10/2024 Other urticaria (ICD-10 - L50.8) Also with reports of urticaria with other medications, will order tryptase level to assess for mast cell conditions. Consider urine studies, however will obtain baseline tryptase first 06/08/2025 Hypertrophy of nasal turbinates (ICD-10 - J34.3) Geeg presents with upper airway symptoms concerning for [...] beer without issue. She was treated at [facility], she did not receive epinephrine [...] and colonoscopy. - Will request records from [facility], as well as from her savings counselor. Still awaiting. - Follow-up in 4 weeks [...] as she would like to go to [facility] 11/09/2024 Hypertrophy of nasal turbinates (ICD-10 - J34.3) Gege presents with upper airway symptoms concerning for uncontrolled atopic disease. She has two dogs in her home. She has trialed Zyrtec in the past without benefit. - Obtained ImmunoCaps that returned negative, total IgE 28. Gege is considering additional testing, plan to discuss further after most recent lab values return 10/06/2024 Hypertrophy of nasal turbinates (ICD-10 - [...] (ICD-10 - Z88.9) See plan above 08/10/2024 Hypertrophy of nasal turbinates (ICD-10 - J34.3) Gege presents with upper airway symptoms concerning for uncontrolled atopic disease. She has two dogs in her home. She has trialed Zyrtec in the past without benefit. - Discussed SPT, however will obtain ImmunoCaps first as Gege is being sent for laboratory work. - Consider returning for SPT pending laboratory review 06/08/2025 Chronic rhinitis (ICD-10 - J31.0) See [...] beer without issue. She was treated at [facility], she did not receive epinephrine [...] and colonoscopy. - Will request records from [facility], as well as from her savings counselor. Still awaiting. - Follow-up in 4 weeks for further evaluation and management 04/13/2025 Other urticaria (ICD-10 - L50.8) Also with reports of urticaria with other medications, last visit obtained tryptase that returned at an 8. As above, repeat tryptase 7.8. Discussed obtaining STAT tryptase in the setting of symptoms, printed order given to Gege 11/09/2024 Chronic rhinitis (ICD-10 - J31.0) See [...] office as Gege prefers to go to [facility]. Will obtain full PFT with [employer] device in the meantime, TE created. She is now slated for pulmonary evaluation next week. - Continue Advair as prescribed by her PCP. She is aware to rinse her mouth after use. - Gege is to use her rescue inhaler as-needed. Needs AAP next visit. - Follow-up in 4 weeks for further evaluation 10/06/2024 Shortness of breath (ICD-10 - R06.02) [...] office as Gege prefers to go to [facility]. Will obtain full PFT with [...] (ICD-10 - Z88.9) See plan above 08/10/2024 Shortness of breath [...] discussed at length. - Follow-up as above 06/08/2025 Other urticaria (ICD-10 - L50.8) Also with reports of urticaria with other medications, last visit obtained tryptase that returned at an 8. As above, repeat tryptase 7.8. Discussed obtaining STAT tryptase in the setting of symptoms, printed order given to Gege 04/13/2025 Toxic effect of venom of bees, [...] last visit. - Follow-up as above 11/09/2024 Toxic effect of venom of bees, [...] last visit. - Follow-up as above 08/10/2024 Rash and [...] testing, Gege is considering at this time 06/08/2025 Rash and other nonspecific skin eruption [...] pursues immunotherapy, discuss this further 08/10/2024 Other heart disorders in diseases classified elsewhere (ICD-10 - I52) Gege reports history of PVCs, currently prescribed a beta-jerry. If Gege pursues immunotherapy, discuss this further 04/13/2025 Elevated blood-pressure reading, without diagnosis of hypertension (ICD-10 - R03.0) BP elevated today without symptoms of urgency or emergency. Continue serial checks and follow-up with PCP 06/08/2025 Elevated blood-pressure reading, without diagnosis of [...] 10/06/2024 YELLOW HORNET (I5) IGE 06/08/2025 TRYPTASE 08/10/2024 TRYPTASE 10/06/2024 COMPLEMENT COMPONENT C4C 08/10/2024 VMA, 24-HOUR URINE 10/06/2024 HOMOVANILLIC ACID, 24-HR URINE 01/21/202 5 5-HIAA, 24-HOUR URINE 10/06/2024 HISTAMINE, 24 HOUR URINE 10/06/2024 LEUKOTRIENE E4, URINE 10/06/2024 N METHYLHISTAMINE, 24 HOUR, URINE 2024 Insurance Providers Payer Name Payer Address Payer Phone Subscriber Number Group Number Insured Name Patient Relationship to Insured Coverage Start Date Coverage End Date [employer] [address] [address] [place] [address] [id number] Gege Vidal Self - patient is [...]
--- OUTSIDE RECORDS SUMMARY | 2025-08-06 15:13 | XMS_ITS | Clinical Summary ---
Author Organization [facility] Address [address] [place] [address] Care Team Providers Care Holistic Nutritionist Name Role Phone Boris Mcnair DO Primary Care Provider [phone] Allergies Active Allergy Reactions Criticality Noted Date Comments Adhesive Tape-Silicones Other (See comments) Medium 08/19/2014 Blisters Codeine Shortness of breath High Food Allergy Formula Other (See comments) Low 08/19 Alcohol- makes her break out in blisters Latex Rash Medium Morphine Hypotension High Penicillins Shortness of breath High Vancomycin Other (See comments),Headache Low 11/15/2017 Headache, flushed face, redmans. 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 8 Active XARELTO 20 mg tablet Take 20 mg by mouth daily. 8 Active atorvastatin (LIPITOR) 40 mg tablet Take 40 mg by mouth daily. [address] (PROTONIX) 20 mg EC tablet Take 20 mg by mouth daily. 9 Active folic acid (FOLVITE) 1 mg tablet Take 1 mg by mouth daily. Active cholecalciferol (VITAMIN D-3) 50,000 unit capsule Take by mouth Active metoprolol XL (TOPROL-XL) 50 mg 24 hr tablet Take 50 mg by mouth daily 0 Active DOXYCYCLINE HYCLATE 100 mg capsule TAKE 1 CAPSULE BY MOUTH TWICE DAILY UNTIL GONE 0 Active albuterol 2.5 mg /3 mL (0.083 %) nebulizer solution Inhale 3 mL (2.5 mg total) 5 Active ALPRAZolam (XANAX) 0.5 mg tablet Take by mouth 2 (two) times a day as needed Active aspirin 81 mg enteric coated tablet Take 1 tablet (81 mg total) by mouth daily Active cyclobenzaprine (FLEXERIL) 10 mg tablet Take 1 tablet (10 mg total) by mouth 3 (three) times a day as needed for muscle spasms Active ERGOCALCIFEROL, VITAMIN D2, ORAL Take by mouth Active FERROUS SULFATE, BULK, MISC Active fluticasone propionate (FLONASE) 50 mcg/actuation nasal spray Administer 1 spray into each nostril daily Active acidophilus-pec tin, citrus 100 million cell-10 mg capsule Take by mouth Activ e mesalamine (LIALDA) 1.2 gram EC tabletIndicatio ns:Ulcerative Colitis Take 1 tablet (1.2 g total) by mouth daily with breakfast Active nystatin-triamc inolone creamIndication s:cutaneous candidiasis Apply topically 2 (two) times a day Active ondansetron (ZOFRAN) 4 mg tablet Take 1 tablet (4 mg total) by mouth every 8 (eight) hours as needed for nausea or vomiting Active cyanocobalamin (Vitamin B-12) 1,000 mcg tabletIndicatio ns:Prevention of Vitamin B12 Deficiency Take 1,000 mcg by mouth daily. 07/14/20 25 Discontin ued(Alter zully therapy) Active Problems Problem Noted Date Diagnosed Date Snoring 07/18/2025 Assessment & Plan (07/18/2025 12:36 PM GLASS ARTIST): I do not think that she needs any type of intervention for this because she is basically asymptomatic. Surgery also may not solve that problem. She does not want to pursue anything either. It is point I will see her as needed. History of total knee arthroplasty, right 2018 Resolved Problems Problem Noted Date Diagnosed Date Resolved Date Primary osteoarthritis of right knee 09/24/2018 10/01/2019 Overview (09/24/2018): Added automatically from request for surgery [id number] Encounters Date Type Department Care Team Description 07/14/2025 2:00 PM CDT Office Visit [facility] [address] [place] [address] Rinku Shankar MD Snoring (Primary Dx) from Last 3 Months Surgical History Surgery Date Site/Laterality Comments CHOLECYSTECTOMY [...] Years Used Date Smoking Tobacco: Former Cigarettes Smokeless Tobacco: Current Tobacco Cessation:Ready to Q uit: Not Asked; Counseling Given: Not Answered Comments:quitting now, 1 pack last 2-3 days Alcohol Use Standard Drinks/Week Comments No 0 (1 standard drink = 0.6 oz pur e alcohol) Comments No Sex and Gender Information Value Date Recorded Sex Assigned at Not on file Legal Sex Female 11:26 PM GLASS ARTIST Gender Identity Not on file Sexual Orientation Not on file Last Filed Vital Signs Vital Sign Reading Time Taken Comments Blood Pressure 98/64 10/02/2019 8:21 AM GLASS ARTIST Pulse 55 10/02/2019 8:21 AM GLASS ARTIST Temperature 37.1 C (98.8 F) 11/24/2018 12:06 PM CDT Respiratory Rate 18 07/14/2025 2:13 PM CDT Oxygen Saturation 98% 11/24/2018 12:06 PM CDT Inhaled Oxygen Concentration - - Weight 83.9 kg (185 lb) 07/14/2025 2:13 PM CDT Height 162.6 cm (5' 4) 07/14/2025 2:13 PM CDT Body Mass Index 31.76 07/14/2025 2:13 PM CDT Plan of Treatment Health Maintenance [...] 06/12/2027 7 Medical Devices Implanted Type Area Part Time Device Identifier Shelf Expiration Date Model / Serial / Lot [employer]Or tho [id number] Legion 9mm Dished Knee 3-4 Insert Tibial Xlpe - [id number] Implanted:Qty: 1 on 11/11/2018 by Kemal Wright MD at [facility] Right: Knee [employer] 08/11/2028 [id number] / / [id number] [employer] [id number] 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 Taper Knee Right 4 Baseplate Tibial Titanium - [id number] Implanted:Qty: 1 on 11/11/2018 by Kemal Wright MD at [facility] Right: Knee [employer] 07/18/2028 [id number] / / [id number]- Size 4 Right Cruciate Retaining Legion Oxinium Femoral Componenet Implanted:Qty: 1 on 11/11/2018 by Kemal Wright MD at [facility] Right: Knee [employer] [id number] 01/06/2028 [id number] / / [id number] [employer] [id number] [place]acos R+G High Viscosity Cement Bone Gentamicin Arthroplasty - [id number] Implanted:Qty: 1 on 11/11/2018 by Kemal Wright MD at [facility] Right: Knee [employer] 04/15/2021 [id number] / / [id number] Insurance MEDICARE [employer] MEDICARE [facility] IDPA [facility] MEDICARE [facility] Address: [address] [address] [place] [address] Advance Directives For more information, please contact: [phone] * Full Code (Latest Code Status on File) Date Activated Date Inactivated Comments 11/14/2018 1:26 PM 11/15/2018 7:15 PM * Full Code Date Activated Date Inactivated Comments 11/13/2018 10:00 AM 11/14/2018 1:16 PM per patient request * Full Code Date Activated Date Inactivated Comments 11/11/2018 7:40 PM 11/12/2018 8:26 PM Care Teams Holistic Nutritionist Relationship Specialty Start Date End Date Boris Mcnair [place] [address] [place] [address] PCP - General Internal Medicine 06/07/25
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
--- OUTSIDE RECORDS SUMMARY | 2025-08-06 16:07 | XMS_ITS | Clinical Summary ---
Author Organization [facility] Address [address] [place] [address] Care Team Providers Care Diploma Maker Name Role Phone Eris Vu MD [...] this topic Medical Devices Implanted Type Area Diploma Maker Device Identifier Shelf Expiration Date Model / Serial / Lot Tecnis 1-Piece Iol Implanted:Qty: 1 on 06/08/2024 by Jadon Vu MD at [facility] Left: Eye [employer] 10/27/2026 / [id number] / Insurance MEDICARE MEDICAID Care Teams Diploma Maker Relationship Specialty Start Date End Date Eris Vu MD [address] [place] [address] PCP - General FAMILY PRACTICE 06/05/24
--- OUTSIDE RECORDS SUMMARY | 2025-08-06 16:07 | XMS_ITS | Clinical Summary ---
Author Organization [facility] [employer] Address [address] [place] [address] Care Team Providers Care Technician Support Association Name Role Phone Boris Mcnair DO Primary Care Provider [phone] Source Comments [facility],non-owned Affiliates and Associated Physician Practices is amultiple site organization consisting of ambulatory clinics and hospital sitesin [place], [place], [place] and [place]. This disclosure is being madepursuant to the Care Everywhere program and may not contain all information available regarding this patient. 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 Gender Identity Not on file Sexual [...] PM CDT [facility] Creatinine 1.0 0.6 - 1.2 [...] DO LAB - CHEMISTRY ORDERABLES Final Result [id number] [place] [address], [facility] [phone] from Last 3 Months or Most Recently Relevant to Health Maintenance Insurance MEDICARE [facility] MANAGED MEDICARE ADV [facility] MANAGED MEDICARE ADV [place] SELF PAY NO INSURANCE Member Subscriber Plan / Payer (Ef fective for All Dates) Name:NenitaMing lunabila Bird Member ID:Not on file Relation to Subscriber:Not on file Name:GEGE GUTIERRES Subscriber ID:Not on file (Home) Address: [address] [place] [address] Payer ID:Not on file Group ID:Not on file Type:Self Pay Address: [place], [place] MEDICARE MEDICAID - OUT OF STATE [facility] MANAGED MEDICARE ADV [facility] MANAGED MEDICARE ADV [place]ID [place] [facility] MANAGED MEDICARE ADV MED[place]ID [place] [address] [place] [address] [facility] MANAGED MEDICARE ADV [place] [facility] MANAGED MEDICARE ADV Advance Directives * Full Code (Latest Code Status on File) Date Activated Date Inactivated Comments 02/15/2018 8:10 AM 02/15/2018 12:04 PM * Full Code Date Activated Date Inactivated Comments 02/14/2018 7:57 AM 02/14/2018 6:16 PM Care Teams Technician Support Association Relationship Specialty Start Date End Date Boris Mcnair DO [address] [place] [address] PCP - General 04/07/19
--- OUTSIDE RECORDS SUMMARY | 2025-08-06 16:07 | XMS_ITS | Clinical Summary ---
Author Organization [facility] Address [address] [place] [address] Care Team Providers Care Aircraft Sales Representative Name Role Phone Eris Vu MD Primary Care Provider [phone] Allergies Active Allergy Reactions Criticality Noted Date Comments Adhesive Tape-Silicones Other (See Comments) Medium 08/19/2014 Blisters Codeine Shortness of Breath/Wheezing High 08/19/2014 Ckgoudjsa-W-Ziohfqw-Se jun-Brom Other (See Comments) Low 08/19/2014 Alcohol- [...] Data STL ABSTRACTION Provider, Abstract 07/11/[address] [facility] [address] [place] [id number] Chris Owens MD 07/07/2025 External Device Data STL ABSTRACTION Provider, Abstract 07/06/2025 External Device Data STL ABSTRACTION Provider, Abstract 06/07/2025 1:00 PM CDT Office Visit [facility] - [place] [address] [place] [phone] Chris Owens MD Chronic anemia (Primary Dx); Encounter for screening for lung cancer; Anemia due to vitamin B12 deficiency, unspecified B12 deficiency type 06/03/[address] 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 - [place] [address] [place] [address] Chris Owens MD [address] [place] [address] Health Maintenance Due Date Last Done Comments Pre-Diabetes and Diabetes Screening 1961 DTAP/TDAP/TD VACCINES (1 - Tdap) 1980 FIT-DNA Q 3 years 2006 FIT/FOBT Q 1 year 2006 Flex Sig/CT Colonography Q 5 years 2006 ZOSTER VACCINE (1 of 2) 2011 Lung Cancer Screening 07/15/2020 07/15/2019 [place] ([place] Preventative Visit/Annual Wellness Visit 09/16/2024 INFLUENZA VACCINE [...] Most Recently Relevant to Health Maintenance Insurance [facility] DUAL COMPLETE PPO DSNP [facility] [id number] Care Teams Aircraft Sales Representative Relationship Specialty Start Date End Date Eris Vu MD PCP - General Family Practice 02/21/23
--- OUTSIDE RECORDS SUMMARY | 2025-08-06 16:07 | XMS_ITS | Clinical Summary ---
Author Organization [facility] Address [address] [place] [address] Care Team Providers Care Refueler Name Role Phone Boris Mcnair DO Primary Care Provider Allergies Active Allergy Reactions [...] mcg tablet Take 112 mcg by mouth risk developer before breakfast. 8 Active XARELTO 20 mg [...] 07/18/2025 Assessment & Plan (07/18/2025 12:36 PM MARGIN CLERK): I do not think that she needs [...] (09/24/2018): Added automatically from request for surgery [id number] Encounters Date Type Department Care Team Description 07/14/2025 2:00 PM CDT Office Visit [facility] [address] [place] [address] Rinku Shankar MD Snoring (Primary [...] on file Legal Sex Female 11:26 PM MARGIN CLERK Gender Identity Not on file Sexual Orientation Not on file Last Filed Vital Signs Vital Sign Reading Time Taken Comments Blood Pressure 98/64 10/02/2019 8:21 AM MARGIN CLERK Pulse 55 10/02/2019 8:21 AM MARGIN CLERK Temperature 37.1 C (98.8 F) 11/24/2018 12:06 [...] 06/12/2027 7 Medical Devices Implanted Type Area Sewer Contractor Device Identifier Shelf Expiration Date Model / Serial / Lot [employer]Or tho [id number] Legion 9mm Dished Knee 3-4 Insert Tibial Xlpe - [id number] Implanted:Qty: 1 on 11/11/2018 by Kemal Wright MD at [facility] Right: Knee [employer] 08/11/2028 [id number] / / [id number] [employer]Or tho [id number] 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 Taper Knee Right 4 Baseplate Tibial Titanium - [id number] Implanted:Qty: 1 on 11/11/2018 by Kemal Wright MD at [facility] Right: Knee [employer]Or [employer] 07/18/2028 [id number] / / [id number] Size 4 Right Cruciate Retaining Legion Oxinium Femoral Componenet Implanted:Qty: 1 on 11/11/2018 by Kemal Wright MD at [facility] Right: Knee [employer]hew [id number] 01/06/2028 [id number] / / [id number] [employer] [id number] Palacos R+G High Viscosity Cement Bone Gentamicin Arthroplasty - [id number] Implanted:Qty: 1 on 11/11/2018 by Kemal Wright MD at [facility] Right: Knee [employer] 04/15/2021 [id number] / / [id number] Insurance MEDICARE [place] MEDICARE [facility]PA [facility] MEDICARE ADVANTAGE Advance Directives For more information, please contact: [phone] * Full Code (Latest Code Status on File) Date Activated Date Inactivated Comments 11/14/2018 1:26 PM 11/15/2018 7:15 PM * Full Code Date Activated Date Inactivated Comments 11/13/2018 10:00 AM 11/14/2018 1:16 PM per patient request * Full Code Date Activated Date Inactivated Comments 11/11/2018 7:40 PM 11/12/2018 8:26 PM Care Teams Refueler Relationship Specialty Start Date End Date Boris Mcnair DO [address] [place] [address] PCP - General Internal Medicine 06/07/25
[2025-08-06] MEDS: LIDOCAINE 5% PATCH 1 PATCH TRANSDERM (17:40)
== END 2025-08-06 17:42 | disposition home or self-care (01) ==
PROVIDERS: Emergency Provider Registered Nurse; PCP Internal Medicine
DX: S13.4XXA Sprain of ligaments of cervical spine, initial encounter (principal); S16.1XXA Strain of muscle, fascia and tendon at neck level, initial encounter; S39.012A Strain of muscle, fascia and tendon of lower back, initial encounter; S06.0X0A Concussion without loss of consciousness, initial encounter; E03.9 Hypothyroidism, unspecified; Z86.718 Personal history of other venous thrombosis and embolism; J44.9 Chronic obstructive pulmonary disease, unspecified; Z87.891 Personal history of nicotine dependence; V44.5XXA Car driver injured in collision with heavy transport vehicle or bus in traffic accident, initial encounter
CPT/HCPCS: 70450; 72125; 72128; 72131; 73030; 99284; A9270

== ENCOUNTER 2025-08-10 12:42 | Outpatient (CLI) | payer OTHER, MEDICARE, MEDICAID, SELFPAY ==
--- NOTE | ~2025-08-10 | XR_ITS ---
EXAMINATION: XR foot RT min 3V, 08/10/2025 13:14 RELAY SHOP SUPERVISOR HISTORY: M79.673 - Pain in unspecified foot COMPARISON: No comparisons available. Findings: No acute fracture or malalignment. No significant degenerative changes. Soft tissues unremarkable. Impression: No acute fracture or malalignment. Reviewed, dictated and finalized at location P. Y SHOP SUPERVISOR Impression: No acute fracture or malalignment.
--- OUTSIDE RECORDS SUMMARY | 2025-08-10 14:24 | XMS_ITS | Clinical Summary ---
Author Organization [facility] Address [address] [place] [address] Care Team Providers Care Cold Mill Inspector Name Role Phone Eris Vu MD Primary Care Provider [phone] Allergies Active Allergy Reactions Criticality Noted Date Comments Adhesive Tape-Silicones Other (See Comments) Medium 08/19/2014 Blisters Codeine Shortness of Breath/Wheezing High 08/19/2014 Mtgezfkug-G-Mkknpwb-Se jun-Brom Other (See Comments) Low 08/19/2014 Alcohol- [...] Data STL ABSTRACTION Provider, Abstract 07/11/2025 Refill [facility] Oncology and Hematology [address] [place] [address] Chris Owens MD 07/07/2025 External Device Data STL ABSTRACTION Provider, Abstract 07/06/2025 External Device Data STL ABSTRACTION Provider, Abstract 06/07/2025 1:00 PM CDT Office Visit [facility] Oncology and Hematology - [address] [place] [address] Chris Owens MD Chronic anemia (Primary Dx); Encounter for screening for lung cancer; Anemia due to vitamin B12 deficiency, unspecified B12 deficiency type 06/03/2025 Orders Only [facility] Oncology and Hematology [address] [place] [address] Chris Owens MD 06/01/2025 External Device Data [...] on file Legal Sex Female 12:44 PM NETWORK ADMIN Gender Identity Not on file Sexual Orientation [...] st Contact Info) Description 09/02/2025 11:00 AM NETWORK ADMIN Office Visit [facility] Oncology and Hematology - [address] [place] [address] Chris Owens MD [address] [facility] [address] [place] [address] Health Maintenance Due Date Last [...] Most Recently Relevant to Health Maintenance Insurance [facility] DUAL COMPLETE PPO DSNP [facility] [id number] Care Teams Cold Mill Inspector Relationship Specialty Start Date End Date Eris Vu MD PCP - General Family Practice 02/21/23
--- OUTSIDE RECORDS SUMMARY | 2025-08-10 14:24 | XMS_ITS | Clinical Summary ---
Author Organization [facility] Address [address] [place] [address] Care Team Providers Care Microbiology Coordinator Name Role Phone Eris Vu MD Primary Care Provider [phone] Allergies Active Allergy Reactions Criticality Noted Date [...] this topic Medical Devices Implanted Type Area Manager Country Device Identifier Shelf Expiration Date Model / Serial / Lot Tecnis 1-Piece Iol Implanted:Qty: 1 on 06/08/2024 by Jadon Vu MD at [facility] Left: Eye [employer] 10/27/2026 / [id number] / Insurance MEDICARE MEDICAID Care Teams Microbiology Coordinator Relationship Specialty Start Date End Date Eris Vu MD [address] [place] [address] PCP - General FAMILY PRACTICE 06/05/24
--- OUTSIDE RECORDS SUMMARY | 2025-08-10 14:24 | XMS_ITS | Clinical Summary ---
Author Organization [facility] Address [address] [place] [address] Care Team Providers Care Radiator Cleaner Name Role Phone Boris Mcnair DO Primary Care Provider [phone] Allergies Active Allergy Reactions Criticality Noted Date [...] mcg tablet Take 112 mcg by mouth testing lead before breakfast. 8 Active XARELTO 20 mg [...] 07/18/2025 Assessment & Plan (07/18/2025 12:36 PM PROGRAM EVALUATOR): I do not think that she needs [...] (09/24/2018): Added automatically from request for surgery [id number] Encounters Date Type Department Care Team Description 07/14/2025 2:00 PM CDT Office Visit [facility] Otolaryngology [address] [place] [address] Rinku Shankar MD Snoring (Primary [...] on file Legal Sex Female 11:26 PM PROGRAM EVALUATOR Gender Identity Not on file Sexual Orientation Not on file Last Filed Vital Signs Vital Sign Reading Time Taken Comments Blood Pressure 98/64 10/02/2019 8:21 AM PROGRAM EVALUATOR Pulse 55 10/02/2019 8:21 AM PROGRAM EVALUATOR Temperature 37.1 C (98.8 F) 11/24/2018 12:06 [...] 06/12/2027 7 Medical Devices Implanted Type Area Piece Meat Trimmer Device Identifier Shelf Expiration Date Model / Serial / Lot [employer]/Or tho [id number] Legion 9mm Dished Knee 3-4 Insert Tibial Xlpe - [id number] Implanted:Qty: 1 on 11/11/2018 by Kemal Wright MD at [facility] Right: Knee [employer]Or [employer] 08/11/2028 [id number] / / [id number] [employer]Or tho [id number] 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 Taper Knee Right 4 Baseplate Tibial Titanium - [id number] Implanted:Qty: 1 on 11/11/2018 by Kemal Wright MD at [facility] Right: Knee [employer]Or tho 07/18/2028 [id number] / / [id number]- Size 4 Right Cruciate Retaining Legion Oxinium Femoral Componenet Implanted:Qty: 1 on 11/11/2018 by Kemal Wright MD at [facility] Right: Knee [employer]hew [id number] 01/06/2028 [id number] / / [id number] [employer] [id number] [place] R+G High Viscosity Cement Bone Gentamicin Arthroplasty - [id number] Implanted:Qty: 1 on 11/11/2018 by Kemal Wright MD at [facility] Right: Knee [employer] 04/15/2021 [id number] / / [id number] Insurance MEDICARE [employer] MEDICARE [facility]PA [facility] MEDICARE ADVANTAGE Advance Directives For more information, please contact: [phone] * Full Code (Latest Code Status on File) Date Activated Date Inactivated Comments 11/14/2018 1:26 PM 11/15/2018 7:15 PM * Full Code Date Activated Date Inactivated Comments 11/13/2018 10:00 AM 11/14/2018 1:16 PM per patient request * Full Code Date Activated Date Inactivated Comments 11/11/2018 7:40 PM 11/12/2018 8:26 PM Care Teams Radiator Cleaner Relationship Specialty Start Date End Date Boris Mcnair DO [address] [place] [address] PCP - General Internal Medicine 06/07/25
--- OUTSIDE RECORDS SUMMARY | 2025-08-10 14:24 | XMS_ITS | Clinical Summary ---
Author Organization [facility] [employer] Address [address] [facility] [place] [address] Care Team Providers Care Adhesive Bandage Making Operator Name Role Phone Boris Mcnair DO Primary Care Provider [phone] Source Comments [facility],non-owned Affiliates and Associated Physician Practices is amultiple site organization consisting of ambulatory clinics and hospital sitesin [place], [place], [place] and [place]. This disclosure is being madepursuant to the Care Everywhere program and may not contain all information available regarding this patient. Last updated 18.[facility] [employer] Allergies Active Allergy Reactions Criticality Noted Date [...] MG tablet 9 Active Cholecalciferol (VITAMIN D3) 29970 units capsule Active Active Problems Problem Noted [...] on file Legal Sex Female 5:06 AM DEDENTER Gender Identity Not on file Sexual Orientation [...] - 26 mg/dL 02/07/2018 1:22 PM CDT [facility] Creatinine 1.0 0.6 - 1.2 [...] DO LAB - CHEMISTRY ORDERABLES Final Result [address] [place] [address], [facility] [phone] from Last 3 Months or Most Recently Relevant to Health Maintenance Insurance MEDICARE [facility] MANAGED MEDICARE ADV [facility] MANAGED MEDICARE ADV MEDICAID [place] SELF [place]Y NO INSURANCE Member Subscriber Plan / Payer (Ef fective for All Dates) Name:NenitaMing lunabila Bird Member ID:Not on file Relation to Subscriber:Not on file Name:GEGE GUTIERRES Subscriber ID:Not on file (Home) Address: [address] [place] [address] Payer ID:Not on file Group ID:Not on file Type:Self Pay Address: [place], [place] MEDICARE MEDICAID - OUT OF STATE [facility] MANAGED MEDICARE ADV Member Subscriber Plan / Payer (Ef fective for All Dates) Name:Gege Gutierres Relation to Subscriber:Self Name:Gege Gutierres Payer ID:[id number] (NAIC) Type:Medicare-Managed Care Address: [address] [place] [phone] [facility] MANAGED MEDICARE ADV Member Subscriber Plan / Payer (Ef fective 2024-Present) Name:Nenita Gege M Relation to Subscriber:Self Name:Gege Gutierres Payer ID:[id number] (NAIC) Type:Medicare-Managed Care Address: [address] [place] [phone] [place] [facility] MANAGED MEDICARE ADV MEDICAID [place] [address] [place] [address] [facility] MANAGED MEDICARE ADV [place]ICAID [place] [facility] MANAGED MEDICARE ADV Advance Directives * Full Code (Latest Code Status on File) Date Activated Date Inactivated Comments 02/15/2018 8:10 AM 02/15/2018 12:04 PM * Full Code Date Activated Date Inactivated Comments 02/14/2018 7:57 AM 02/14/2018 6:16 PM Care Teams Adhesive Bandage Making Operator Relationship Specialty Start Date End Date Boris Mcnair DO [address] [place] [address] PCP - General 04/07/19
== END 2025-08-10 12:43 | disposition home or self-care (01) ==
PROVIDERS: PCP Internal Medicine; Visit Provider Internal Medicine
DX: M79.671 Pain in right foot (principal); V89.2XXA Person injured in unspecified motor-vehicle accident, traffic, initial encounter
CPT/HCPCS: 73630

== ENCOUNTER 2025-08-13 19:49 | Emergency (ER) | payer MEDICARE, MEDICAID, SELFPAY ==
--- OUTSIDE RECORDS SUMMARY | 2024-07-28 11:30 | XMS_ITS ---
Author Organization Formerly [facility] [place] ([address]) Address [address] [place] [address] Care Team Providers Care Director Of Convention Services Name Role Phone Boris Mcnair Primary Care Provider Breann Zuniga Unavailable [phone] Eris Vu Unavailable Unavailable Franky Gray Unavailable [phone] Allergies Social History Sex Assigned At : Social History Observation Description Sex Assigned At Female Encounters Encounter Location Date Provider Diagnosis [facility] [address] [place] [address] 07/28/2024 Franky Gray Plan Of Treatment No Information Progress Notes * Gege GUTIERRESDOB:1960 (65 yo F)Acc No.[id number]:07/28/2024 Progress Notes Patient: Gege MADERA Provider: Rashel Gray PA-C :1960 A ge:64 Y S ex:Female Date:07/28/2024 Address: [place] [id number] Pcp:Boris Mcnair Subjective: * Chief Complaints: * [address] Allergies. 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
--- OUTSIDE RECORDS SUMMARY | 2024-09-07 11:30 | XMS_ITS ---
Author Organization [facility] [employer] ([address]) Address [address] [place] [address] Care Team Providers Care Manager Radio Name Role Phone Boris Mcnair Primary Care Provider Breann Zuniga Unavailable [phone] Eris Vu Unavailable Unavailable REASON FOR VISIT [...] Lactobacillus - as directed Orally Active Nystatin 841542 UNIT/GM 1 application Ex ternally Twice a [...] Encounter Location Date Provider Diagnosis [facility] [address] [place] [address] 09/07/2024 Breann Chavira Localized swelling, mass and [...] plans below. - Will request records from [facility], as well as from her freight trucker. - Follow-up in 4 weeks for laboratory [...] 09/07/2024 Shortness of breath (ICD-10 - R06.02) eGge reports history of COPD. She denies prior [...] plans below. - Will request records from [facility], as well as from her freight trucker. - Follow-up in 4 weeks for laboratory [...] Notes * Gege VIDALDOB:1960 (65 yo F)Acc No.[id number]:09/07/2024 Progress Notes Patient: Gege MADERA Provider: Rashel Chavira DNP CASINO GAMING WORKER-C :1960 A ge:64 Y S ex:Female Date:09/07/2024 Address:[address] [place], [place] [id number] Pcp:Boris Mcnair Subjective: * Chief Complaints: * [...] left eye. She was seen by her freight trucker, whorecommended stopping Maxitrol and started her on a prednisolone eye drop, shewas also using Refresh ocular lubricant. She was, once again, seen by her freight trucker who started a different prednisoloneeye drop. Symptoms persistedand she reports the swelling worsened, due to thisshe was seen at [facility] where she was given steroids andantihistamines, also sent home on prednisone and Benadryl. She reports shecontinued to use the second prednisolone drop she was prescribed. Several dayslater she was seen once again by her freight trucker, who stopped theprednisolone ocular drop and recommended [...] without benefit. [facility]. She has never undergone allergy testing [...] on nebivolol. She lives with tanya and anmgvyee-vd-vcf. She denies a history of physician-diagnosed allergic [...] or xray? Y es W here? A [facility] W hen? 1 H ave you ever undergone sinus surgery? Y es W here? G [facility] Cough F requency: d aily I s [...] ave you ever had a pneumococcal vaccine (PQK-Osxuavc-Ejzlragwt)? N o H ave you ever had a tetanus vaccine (JQvu-Pwxr-Eg)? Y es Ear Infections D o you [...] H ave you been seen by an manager adobe or credit portfolio advisor for recurrent bronchitis? N o Pneumonia History H ave you ever had pneumonia or recurrent pneumonia? Y es H ow many episodes in your entire life? 2 H ow many episodes in the past 12 months? 0 H ave you been treated with antibiotics for pneumonia? Y es H ave you been hospitalized for treatment??No H ave you been seen by an manager adobe or credit portfolio advisor to evaluate your immune system function for [...] H ave you been seen by an manager adobe or credit portfolio advisor to evaluate your immune system function for [...] o H ave you previously seen an manager adobe for evaluation of possible food allergy? N [...] ave you ever been evaluated by an manager adobe for 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 o H ave you previously seen an manager adobe for evaluation of possible stinging insect allergy? [...] H ave you been evaluated by an manager adobe previously for possible drug allergy? N o [...] Orally Once a day , Taking Nystatin 719086 UNIT/GM Cream 1 application Externally Twice a [...] 8960 SELF-MGMT EDUC & TRAIN, 1 PT, 95126 PT-FOCUSED HLTH RISK ASSMT, G8427 DOC MEDS VERIFIED W/PT OR RE, A4617 Mouthpiece, 78931 RESPIRATORY FLOW VOLUME LOOP, 71526 Breann Chavira - Incident-to * Preventive Medicine: [...] Loop) * Billing Information: * Visit Code: 24568 Office Visit, New Pt., Level 5. Modifiers: 25 * Procedure Codes: 05191 SELF-MGMT EDUC & TRAIN, 1 PT. 75021 PT-FOCUSED HLTH RISK ASSMT. G8427 DOC MEDS VERIFIED W/PT OR RE. A4617 Mouthpiece. 13676 RESPIRATORY FLOW VOLUME LOOP. 21073 Breann Chavira - Incident-to. * Electronic signature of Breann Chavira DNP, FNP-C on 08/13/2025 at 08:48 PM DATA ABSTRACTOR Sign off status: Pending * Provider: VALERIE AlmonteC Date: 11/08/2023 Generated for Neal gonzalez/Randall/eTransmsarabjit on: 10/13/2024 08:48 PM DATA ABSTRACTOR History and Physical Notes * HPI (History [...] left eye. She was seen by her freight trucker, who recommended stopping Maxitrol and started her on a prednisolone eye drop, she was also using Refresh ocular lubricant. She was, once again, seen by her freight trucker who started a different prednisolone eye drop. Symptoms persistedand she reports the swelling worsened, due to this she was seen at [facility] where she was given steroids and antihistamines, also sent home on prednisone and Benadryl. She reports she continued to use the second prednisolone drop she was prescribed. Several days later she was seen once again by her freight trucker, who stopped the prednisolone ocular drop and [...] nebivolol. She lives with her son and gmaneziv-ac-nsa. She denies a history of physician-diagnosed allergic [...] CT scan or xray?: Ye s Where?: [facility] When?: 06/2024 Have you ever undergone sinus surgery?: Yes Where?: [facility] Allergic rhinitis Do you have [...] Have you ever had a pneumococcal vaccine (ZQP-Zlwynzp-Qritwhtxt)?: No Have you ever had a tetanus [...] steroids Have you been seen by an manager adobe or credit portfolio advisor for recurrent bronchitis?: No Pneumonia History Have you ever had pneumonia or recurrent pneumonia?: Yes How many episodes in your entire life?: 2 How many episodes in the past 12 months?: 0 Have you been treated with antibiotics for pneumonia? : Yes Have you been hospitalized for treatment?: No Have you been seen by an manager adobe or credit portfolio advisor to evaluate your immune system function for [...] No Have you been seen by an manager adobe or credit portfolio advisor to evaluate your immune system function for [...] Have you been evaluated by a n manager adobe previously for possible drug allergy?: No *Stinging [...] autoinjector?: No Have you previously seen an manager adobe for evaluation of possible stinging insect allergy?: [...] reaction(s)?: No Have you previously seen an manager adobe for evaluation of possible food allergy?: No [...] Have you ever been evaluated by an manager adobe for 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
--- NOTE | ~2025-08-13 | CT_ITS ---
CT abdomen pelvis w con Clinical History: abd pain, vomiting . Comparison: CT abdomen pelvis 09/08/2024 Technique: Axial images lung bases to symphysis pubis 100 mL Omnipaque 350 Coronal, sagittal reformats CT images acquired with automatic exposure control for dose reduction DLP: 510 mGy-cm Findings: Lung bases: Clear. Visualized heart and pericardium: Trace focal pericardial fluid. Liver: Tiny ill-defined hypodense focus segment 4A. Steatosis. Unchanged hypodense focus segment IVb with slight capsular convexity. Hepatomegaly, steatosis. Gallbladder: Removed. Spleen: Unremarkable. Pancreas: Unremarkable. Adrenal glands: Unremarkable. Kidneys: Right kidney- No hydronephrosis. No renal stones. Tiny cyst. Left kidney- No hydronephrosis. No renal stones. Distal esophagus/stomach: Unremarkable. Small bowel loops: Normal caliber and wall thickness. Colon: Wall thickening left hemicolon and rectum. Normal appendix, appendicolith. Nodes: No enlarged nodes. Peritoneum: No ascites. No free air. Urinary bladder: Unremarkable. Uterus: Removed. Adnexa: No masses. Bones: No acute bony abnormality. Soft tissues: Unremarkable. Aorta: No aneurysm or dissection. Atherosclerotic disease. IVC: Unremarkable. Main portal vein/SMV/splenic vein: Patent. IMPRESSION: 1. Chronic proctocolitis. No complicating features. Reviewed, dictated and finalized at location R. WAY MAINTENANCE WORKER
[2025-08-13 19:54] VITALS: BP 131/69; PULSE 75; RESP 18; TEMP 36.4; O2SAT 98
[2025-08-13 20:20] LABS: Hematocrit 43.1 % (37.0-47.0); Hemoglobin 14.1 g/dL (12.0-15.0); Immature Granulocyte Percent A 0.3 % (0-0.5); Lymphocytes Absolute Auto 1.72 K/mm3 (0.9-3.2); Mean Corpuscular HGB Conc 32.7 g/dl (32-36); Mean Corpuscular Hemoglobin 27.9 pg (26-34); Mean Corpuscular Volume 85.3 fl (80-100); Nucleated Red Blood Cells Absolute Auto 0.000 K/mm3 (0.0-0.012); Nucleated Red Blood Cells Perc 0.0 % (0.0-0.2); Platelet Count Result 351 k/mm3 (150-375); Red Blood Count 5.05 M/mm3 (4.2-5.4); White Blood Count 11.8 K/mm3 (4.5-10.0)
[2025-08-13 20:36] LABS: Alanine Aminotransferase 14 U/L (6-35); Albumin Level 4.3 g/dL (3.5-5.1); Alkaline Phosphatase 100 U/L (38-126); Anion Gap 7 mmol/L (4-12); Aspartate Amino Transferase 18 U/L (14-36); Bilirubin,Total 0.5 mg/dL (0.2-1.3); Blood Urea Nitrogen 11 mg/dL (7-17); Calcium 9.3 mg/dL (8.4-10.2); Carbon Dioxide 27 mmol/L (22-30); Chloride 105 mmol/L (98-107); Estimated CRCL calculation 60 ml/min; Estimated Glomerular Filt Rate > 60; Glucose 98 mg/dL (65-110); Lipase 32 U/L (23-300); Potassium 3.9 mmol/L (3.4-5.0); Sodium 139 mmol/L (137-145); Total Protein 7.4 g/dL (6.3-8.2)
--- OUTSIDE RECORDS SUMMARY | 2025-08-13 20:48 | XMS_ITS | Clinical Summary ---
Author Organization [facility] Address [address] [place] [address] Care Team Providers Care Mold Finisher Name Role Phone Eris Vu MD Primary Care Provider [phone] Allergies Active Allergy Reactions Criticality Noted Date Comments Adhesive Tape-Silicones Other (See Comments) Medium 08/19/2014 Blisters Codeine Shortness of Breath/Wheezing High 08/19/2014 Zvxpkiuqb-P-Xtwxgvu-Se jun-Brom Other (See Comments) Low 08/19/2014 Alcohol- [...] mouth every 8 hours as needed for Nausea/Emesi s. Active Cetirizine (ZyrTEC) 10 mg Capsule Take 10 mg by mouth 1 time daily as needed . Active aspirin (ECOTRIN EC) 81 mg Tablet, Delayed Release (E.C.) Take 1 Tablet (81 mg) by mouth daily. 90 Tablet 3 06/09/2018 Active cholecalciferol 50,000 unit CapsuleIndicati ons:pt taking [...] once daily 90 Tablet 3 12/10/2024 Active mesalamine (LIALDA) 1.2 gram Tablet, Delayed Release (E.C.) Take 4 Tablets by mouth daily. 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 01/06/2020 Diverticulitis 03/24/2018 Secondary hypercoagulable state 11/15/2017 Tobacco use 11/15/2017 Encounters Date Type Department Care Team Description 08/03/2025 External Device Data STL ABSTRACTION Provider, Abstract 07/11/2025 Refill [facility] Oncology and Hematology - [place] [place] [address] Chris Owens MD 07/07/2025 External Device Data STL ABSTRACTION Provider, Abstract 07/06/2025 External Device Data STL ABSTRACTION Provider, Abstract 06/07/2025 1:00 PM CDT Office Visit [facility] Oncology and Hematology [address] [place] [address] Chris Owens MD Chronic anemia (Primary Dx); Encounter for screening for lung cancer; Anemia due to vitamin B12 deficiency, unspecified B12 deficiency type 06/03/2025 Orders Only [facility] Oncology and Hematology [address] [place] [address] Chris Owens MD 06/01/2025 External Device Data [...] on file Legal Sex Female 12:44 PM ON AIR DIRECTOR Gender Identity Not on file Sexual [...] st Contact Info) Description 09/02/2025 11:00 AM ON AIR DIRECTOR Office Visit [facility] Oncology and Hematology - [address] [facility] [address] [place] [address] Chris Owens MD [address] [facility] [address] [place] [address] Health Maintenance Due Date Last [...] (06/02/2025 12:37 PM CDT) Blood us Chris Owesn MD CHEMISTRY ORDERABLES Final Resu lt * MAMMO SCREENING BILAT (12/17/2024 10:40 AM CDT) Anatomical Region Laterality Modality Breast Bilateral Mammography us Chris Owens MD MAMMO ORDERABLES Final Result * CT LUNG SCREENING (07/15/2019) Anatomical Region Laterality Modality Chest Computed Tomogra phy us Chris Owens MD CT ORDERABLES Final Result from Last 3 Months or Most Recently Relevant to Health Maintenance [facility] [place] [address] [facility] DUAL COMPLETE PPO DSNP [facility] [id number] Care Teams Mold Finisher Relationship Specialty Start Date End Date Eris Vu MD PCP - General Family Practice 02/21/23
--- OUTSIDE RECORDS SUMMARY | 2025-08-13 20:48 | XMS_ITS | Clinical Summary ---
Author Organization [facility] Address [address] [place] [address] Care Team Providers Care Frame Polisher Name Role Phone Eris Vu MD Primary Care Provider [phone] Allergies Active Allergy Reactions Criticality Noted Date [...] this topic Medical Devices Implanted Type Area Electrical Assembly Supervisor Device Identifier Shelf Expiration Date Model / Serial / Lot Tecnis 1-Piece Iol Implanted:Qty: 1 on 06/08/2024 by Jadon Vu MD at [facility] Left: Eye [employer] 10/27/2026 / [id number] / Insurance MEDICARE MEDICAID Care Teams Frame Polisher Relationship Specialty Start Date End Date Eris Vu MD [address] [place] [address] PCP - General FAMILY PRACTICE 06/05/24
--- OUTSIDE RECORDS SUMMARY | 2025-08-13 20:48 | XMS_ITS | Clinical Summary ---
Author Organization [facility] [employer] Address [address] [facility] [place] [address] Care Team Providers Care Wallpaperer Name Role Phone Boris Mcnair DO Primary Care Provider [phone] Source Comments [facility],non-owned Affiliates and Associated Physician Practices is amultiple site organization consisting of ambulatory clinics and hospital sitesin [place], [place], [place] and [place]. This disclosure is being madepursuant to the Care Everywhere program and may not contain all information available regarding this patient. Last updated 18.[facility] Allergies Active Allergy Reactions Criticality Noted Date [...] MG tablet 9 Active Cholecalciferol (VITAMIN D3) 87892 units capsule Active Active Problems Problem Noted [...] on file Legal Sex Female 5:06 AM BOILER/CHILLER OPERATOR Gender Identity Not on file Sexual [...] - 26 mg/dL 02/07/2018 1:22 PM CDT [facility] Creatinine 1.0 0.6 - 1.2 mg/dL 02/07/2018 1:22 PM [facility] Sodium 136 136 - 145 mmol/L 02/07/2018 1:22 PM [facility] Potassium 3.6 3.5 - 4.5 mmol/L 02/07/2018 1:22 PM [facility] Chloride 101 98 - 107 mmol/L 02/07/2018 1:22 PM [facility] CO2 25 22 - 29 mmol/L 02/07/2018 1:22 PM [facility] Glucose 93 70 - 115 mg/dL 02/07/2018 1:22 PM [facility] Calcium 9.9 8.4 - 10.2 mg/dL 02/07/2018 1:22 PM [facility] Protein Total 7.6 6.0 - 8.3 g/dL 02/07/2018 1:22 PM [facility] Albumin 3.5 3.4 - 5.0 g/dL 02/07/2018 1:22 PM [facility] Bilirubin Total 0.7 0.2 - 1.2 mg/dL 02/07/2018 1:22 PM [facility] Alkaline Phosphatase 109 40 - 150 Units/L 02/07/2018 1:22 PM [facility] ALT 22 0 - 55 Units/L 02/07/2018 1:22 PM [facility] AST 23 5 - 34 Units/L 02/07/2018 1:22 PM [facility] Anion Gap 14 8 - 18 02/07/2018 1:22 PM [facility] BUN/Creatinine Ratio 8 7 - 23 02/07/2018 1:22 PM [facility] Osmolality Calculated 280 270 - 300 mOsm/kg 02/07/2018 1:22 PM [facility] Albumin/Globulin Ratio 0.9(L) 1.1 - 2.3 02/07/2018 1:22 PM [facility] eGFR 57(L) >60 mL/min/1.7 3 m2 02/07/2018 1:22 PM [facility] Blood BLOOD SPECIMEN / Unknown Lab Venipuncture / Unknown 02/07/2018 12:50 PM T 02/07/2018 12:55 PM CDT Ester Haresh Barajas DO LAB - CHEMISTRY ORDERABLES Final Result [place] [address] [place] [address], [facility] [phone] from Last 3 Months or Most Recently Relevant to Health Maintenance Insurance MEDICARE [facility] MANAGED MEDICARE ADV [facility] MANAGED MEDICARE ADV MEDICAID [place] SELF PAY NO INSURANCE Member Subscriber Plan / Payer (Ef fective for All Dates) Name:NenitaMing lunabila Bird Member ID:Not on file Relation to Subscriber:Not on file Name:GEGE GUTIERRES Subscriber ID:Not on file (Home) Address: [address] [place] [address] Payer ID:Not on file Group ID:Not on file Type:Self Pay Address: [place], [place] MEDICARE MEDICAID - OUT OF STATE [facility] MANAGED MEDICARE ADV [facility] MANAGED MEDICARE ADV [place]ID [place] [facility] MANAGED MEDICARE ADV MED[place] [address] [place] [address] [facility] MANAGED MEDICARE ADV [place] [facility] MANAGED MEDICARE ADV Advance Directives * Full Code (Latest Code Status on File) Date Activated Date Inactivated Comments 02/15/2018 8:10 AM 02/15/2018 12:04 PM * Full Code Date Activated Date Inactivated Comments 02/14/2018 7:57 AM 02/14/2018 6:16 PM Care Teams Wallpaperer Relationship Specialty Start Date End Date Boris Mcnair DO [address] [place] [address] PCP - General 04/07/19
--- OUTSIDE RECORDS SUMMARY | 2025-08-13 20:48 | XMS_ITS | Patient Health Record ---
Author Organization [facility] [employer] [place] ([address]) Address [address] [place] [address] Care Team Providers Care Print Project Manager Name Role Phone Boris Mcnair Primary Care Provider Breann Zuniga Unavailable [phone] Eris Vu Unavailable Unavailable Allergies Allergen (clinical drug ingredient) Drug/Non Drug Allergy documented on EMR Reaction Allergy Type Onset Date Status codeine Codeine anaphylaxis Drug Allergy Activ e hydromorphone HYDROmorphone rash Drug Allergy Active Latex Latex rash Allergy Active levofloxacin levoFLOXacin rash Drug Allergy A ctive Results Component Value Reference Range Notes -Tryptase ([id number]) Reviewed date:12/10/2024 07:34:10 AM Interpretation:Normal Performing Lab:[facility]; to (do)[address] [id number], Phone - [phone], Director - Lyndon Notes/Report: Tryptase 6.0 2.2-13.2 ug/L -5-HIAA,Quant.,24 Hr Urine Reviewed date:01/04/2025 07:56:32 AM Interpretation:Normal Performing Lab:[facility]; to (do)[address] [id number], Phone - [phone], Director - Lyndon Notes/Report: and Drug Administration. by [facility]. It has not been cleared or approved by the Food was developed and its performance characteristics determined Test(s) 118337-9-ZOHE, Urine; 637335-QRY, Urine 5-HIAA, Urine 4.4 Undefined mg/L 5-HIAA, Urine, 24hr 4.4 0.0-14.9 mg/24 hr -VMA (Vanillylmandelic Acid) , 24-Hour Urine Reviewed date:01/04/2025 07:56:42 AM Interpretation:Normal Performing Lab:[address] [id number], Phone - [phone], Director [facility] Notes/Report: Test(s) 990766-0-HBHD, Urine; 565975-HLW, Urine was developed and its performance characteristics determined by [facility]. It has not been cleared or approved by the Food and Drug Administration. VMA, Urine 2.7 Undefined mg/L VMA, Urine, 24hr 2.7 0.0-7.5 mg/24 hr -Histamine Determination, Ur ine Reviewed date:12/30/2024 04:37:39 PM Interpretation:Normal Performing Lab:[address] [id number], Phone - [phone], Director - [facility] Notes/Report: Test(s) 958542-Wimptazcb,ug/L,U This test was developed and its performance characteristics determined by [facility]. It has not been cleared or approved by the Food and Drug Administration. Histamine,ug/L,U 14 Not Estab. ug/L Histamine,ug/24hr,U 14 0-65 ug/24 hr -HVA (Homovanillic Acid), 24 -Hour Urine Reviewed date:01/04/2025 07:56:37 AM Interpretation:Normal Performing Lab:[address] [id number], Phone - [phone], Director [facility] Notes/Report: Test(s) 646360-1-ZYNW, Urine; 725986-KAT, Urine was developed and its performance characteristics determined by [facility]. It has not been cleared or approved by the Food and Drug Administration. HVA, Urine 3.5 Undefined mg/L This test was developed and its performance characteristics determined by [facility]. It has not been cleared or approved by the Food and Drug Administration. HVA, Urine, 24hr 3.5 0.0-10.0 mg/24 hr -Metanephrines, Frac., Pl. F ree Reviewed date:01/04/2025 03:24:04 PM Interpretation:Normal [facility]forming [facility], [address] [place] [address], [place], [place] [id number], Phone - [phone], Director - Lyndon Notes/Report: and Drug Administration. by [facility]. It has not been cleared or approved by the Food was developed and its performance characteristics determined Test(s) 905028-Fhbfbxjsrpxyaed, Pl; 081106-Uddlwtwxjadw, Pl Normetanephrine, Pl 142.7 0.0-285.2 pg/mL Metanephrine, Pl <25.0 0.0-88.0 pg/mL HONEY BEE (I1) IGE Reviewed date:06/13/2025 03:45:08 PM Interpretation:Normal Performing Lab:[facility], [address] [place], [address] Pietro Forrest MD Notes/Report: NON-FASTING; NON-FASTING; NON-FASTING; NON-FASTING HONEY BEE (I1) IGE <0.10 CLASS 0 BASOFUNCTION HRT AMOXICILLIN Reviewed date:06/16/2025 11:47:53 AM Interpretation:Normal Performing Lab:[facility], [address], [address] Glenroy Liao PhD BCLD (ABB) Notes/Report: SPLIT 06/08/2025 FROM [id number] BASOFUNCTION HRT AMOXICILLIN* <0.1 <1.3 ng/mL FLAG Interpretation: A = Abnormal, H = High, L = Low WHITE-FACED HORNET (I2) IGE Reviewed date:06/13/2025 03:45:21 PM Interpretation:Normal Performing Lab:[facility], [address], [place], [address] Pietro Forrest MD Notes/Report: NON-FASTING; NON-FASTING; NON-FASTING; NON-FASTING WHITE-FACED HORNET (I2) IGE <0.10 CLASS 0 YELLOW JACKET (I3) IGE Reviewed date:06/13/2025 03:44:52 PM Interpretation:Normal Performing Lab:[facility], [address], [place], [address] Pietro Forrest MD Notes/Report: NON-FASTING; NON-FASTING; NON-FASTING; NON-FASTING YELLOW JACKET (I3) IGE <0.10 CLASS 0 PAPER WASP (I4) IGE Reviewed date:06/13/2025 03:44:59 PM Interpretation:Normal Performing Lab:[facility], [address] [place], [address] Pietro Forrest MD Notes/Report: NON-FASTING; NON-FASTING; NON-FASTING; [...] analytical performance characteristics have been determined by [facility]. It has not been cleared or approved by the U.S. Food and Drug Administration. This assay has been validated pursuant to the CLIA regulations and is used for clinical purposes. YELLOW HORNET (I5) IGE Reviewed date:06/15/2025 01:47:18 PM Interpretation:Normal Performing Lab:[facility], [address] [place], [address] Pietro Forrest MD Notes/Report: COLLECTION REQUIREMENTS NOT [...] analytical performance characteristics have been determined by [facility]. It has not been cleared or approved by the U.S. Food and Drug Administration. This assay has been validated pursuant to the CLIA regulations and is used for clinical purposes. BASOPHIL ACTIVATION TEST (FM LP)* Reviewed date:06/24/2025 04:33:01 PM Interpretation:Normal Performing Lab:[facility], [address] [place] [address], [address] Glenroy Liao PhD BCLD (ABB) Notes/Report: SPLIT 06/08/2025 FROM [id number] BASOPHIL ACTIVATION TEST (FMLP)* 10.0 >3.7 ng/mL [...] developed and its performance characteristics determined by [facility]. It has not been cleared or approved [...] dissolve Orally Once a day Active Nystatin 535204 UNIT/GM 1 application Externally Twice a day [...] Status Risk Notes Problem Allergy to penicillin (55383778) Allergy status to penicillin (Z88.0) Active confirmed Problem Eruption of skin (140758566) Rash and other nonspecific skin eruption (R21) Active confirmed Problem Carotid artery syndrome hemispheric (119308299) Carotid artery syndrome (hemispheric) (G45.1) Active confirmed Problem Heart disease (82053609) Other heart disorders in diseases classified elsewhere (I52) Active confirmed Problem Chronic rhinitis (76588768) Chronic rhinitis (J31.0) Active confirmed Problem Hypertrophy of nasal turbinates (20496736) Hypertrophy of nasal turbinates (J34.3) Active confirmed Problem Urticaria (780087195) Other urticaria (L50.8) Active confirmed Problem Fibromyalgia (355480045) Fibromyalgia (M79.7) Active confirmed Problem Swelling of head (268307510) Localized swelling, mass and lump, head (R22.0) Active confirmed Problem Toxic effect of venom (07817315) Toxic effect of venom of bees, accidental (unintentional), initial encounter (T63.441A) Active confirmed Problem Shortness of breath (152238030) Shortness of breath (R06.02) Active confirmed Problem Drug allergy (646355718) Allergy status to unspecified drugs, medicaments and biological substances (Z88.9) Active confirmed Vital Signs Oximetry 97 % 06/08/2025 Blood pressure diastolic 67 mm Hg 06/08/2025 Height 64 in 06/08/2025 Blood pressure systolic 156 mm Hg 06/08/2025 Weight 191.0 lbs 06/08/2025 BMI 32.78 kg/m2 06/08/2025 Encounters Encounter Location Date Provider Diagnosis [facility] [address] [place] [address] 11/09/2024 Breann Chavira Localized swelling, mass and [...] heart disorders in diseases classified elsewhere I52 [facility] [address] [place] [address] 10/06/2024 Breann Chavira Localized swelling, mass and [...] blood-pressure reading, without diagnosis of hypertension R03.0 [facility] [address] [place] [address] 04/13/2025 Breann Chavira Hypertrophy of nasal turbinates [...] blood-pressure reading, without diagnosis of hypertension R03.0 [facility] [address] [place] [address] 06/08/2025 Breann Chavira Shortness of breath R06.02 [...] blood-pressure reading, without diagnosis of hypertension R03.[address] [address] 11/02/2024 Breann Chavira [facility] [address] [place] [address] 09/29/2024 Breann Chavira [address] [address] 06/24/2025 Breann Chavira [address] [address] 06/15/2025 Breann Chavira [facility] [address] [place] [address] 03/17/2025 rBeann Chavira [address] [address] 01/04/2025 Breann Chavira [address] [address] 12/17/2024 Breann Chavira Other urticaria L5 0.8 and Localized swelling, mass and lump, head R22.[address] [address] 11/18/2024 Breann Chavira [address] [address] 11/09/2024 Breann Chavira Assessments Encounter Date Diagnosis [...] as she would like to go to [facility]. - Will request records from [facility], as well as from her chief operator hydroformer. Still awaiting. - Follow-up in 4 weeks for laboratory review 10/06/2024 Allergy status to unspecified drugs, medicaments and biological substances (ICD-10 - Z88.9) See plan above 12/17/2024 Other urticaria (ICD-10 - L50.8) 12/17/2024 Localized swelling, mass and lump, head (ICD-10 - R22.0) 06/08/2025 Allergy status to penicillin (ICD-10 - [...] in 4 weeks for further evaluation 04/13/2025 Chronic rhinitis (ICD-10 - J31.0) See [...] beer without issue. She was treated at [facility], she did not receive epinephrine or [...] request records. - Will request records from [facility], as well as from her chief operator hydroformer. Still awaiting. - Follow-up in 4 weeks [...] beer without issue. She was treated at [facility], she did not receive epinephrine or [...] and colonoscopy. - Will request records from [facility], as well as from her chief operator hydroformer. Still awaiting. - Follow-up in 4 weeks for further evaluation and management 06/08/2025 Hypertrophy of nasal turbinates (ICD-10 - [...] ENT evaluation if upper airway symptoms persist 10/06/2024 Other urticaria (ICD-10 - L50.8) Also with reports of urticaria with other medications, last visit obtained tryptase that returned at an 8. As above, will repeat tryptase. Gege is also interested in urine studies due to additional history of hives and swelling, orders printed as she would like to go to [facility] 10/06/2024 Hypertrophy of nasal turbinates (ICD-10 - J34.3) Gege presents with upper airway symptoms concerning for uncontrolled atopic disease. She has two dogs in her home. She has trialed Zyrtec in the past without benefit. - Obtained ImmunoCaps that returned negative, total IgE 28. Gege is considering additional testing, plan to discuss further after most recent lab values return 06/08/2025 Chronic rhinitis (ICD-10 - J31.0) See plan above 11/09/2024 Hypertrophy of nasal turbinates (ICD-10 - [...] of symptoms, printed order given to Gege 06/08/2025 Localized swelling, mass and lump, head [...] beer without issue. She was treated at [facility], she did not receive epinephrine or [...] and colonoscopy. - Will request records from [facility], as well as from her chief operator hydroformer. Still awaiting. - Follow-up in 4 weeks for further evaluation and management 10/06/2024 Chronic rhinitis (ICD-10 - J31.0) See plan above 06/08/2025 Allergy status to unspecified drugs, medicaments and biological substances (ICD-10 - Z88.9) See plan above 10/06/2024 Shortness of breath [...] office as Gege prefers to go to [facility]. Will obtain full PFT with [facility] [...] office as Gege prefers to go to [facility]. Will obtain full PFT with [facility] [...] symptoms, printed order given to Gege 10/06/2024 Rash and other nonspecific skin eruption [...] testing, Gege is slated for next date 06/08/2025 Rash and other nonspecific skin eruption [...] checks and follow-up with PCP 09/07/2024 Other 04/13/2025 Other 10/06/2024 Other 06/08/2025 [...] Coverage End Date [employer] Medicare [address] [address] [place] [phone] [id number] Gege Vidal Self - patient is [...]
--- OUTSIDE RECORDS SUMMARY | 2025-08-13 20:48 | XMS_ITS | Clinical Summary ---
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 8 Active XARELTO 20 mg [...] 1 spray into each nostril daily Active acidophilus-pect in, citrus 100 million cell-10 mg capsule Take by mouth Activ e mesalamine (LIALDA) 1.2 gram EC tabletIndication s:Ulcerative Colitis Take 1 tablet (1.2 g total) by mouth daily with breakfast Active nystatin-triamci nolone creamIndications :cutaneous candidiasis Apply topically 2 (two) times a day Active ondansetron (ZOFRAN) 4 mg tablet Take 1 tablet (4 mg total) by mouth every 8 (eight) hours as needed for nausea or vomiting Active Active Problems Problem Noted Date Diagnosed Date Snoring 07/18/2025 Assessment & Plan (07/18/2025 12:36 PM FACTORY REPRESENTATIVE): I do not think that she needs [...] (09/24/2018): Added automatically from request for surgery [id number] Encounters Date Type Department Care Team Description 07/14/2025 2:00 PM CDT Office Visit [facility] [address] [place] [address] Rinku Shankar MD Snoring (Primary Dx) [...] on file Legal Sex Female 11:26 PM FACTORY REPRESENTATIVE Gender Identity Not on file Sexual Orientation Not on file Last Filed Vital Signs Vital Sign Reading Time Taken Comments Blood Pressure 98/64 10/02/2019 8:21 AM FACTORY REPRESENTATIVE Pulse 55 10/02/2019 8:21 AM FACTORY REPRESENTATIVE Temperature 37.1 C (98.8 F) 11/24/2018 12:06 [...] 06/12/2027 7 Medical Devices Implanted Type Area Social Media Manager Device Identifier Shelf Expiration Date Model / Serial / Lot [employer] [id number] Legion 9mm Dished Knee 3-4 Insert Tibial Xlpe - [id number] Implanted:Qty: 1 on 11/11/2018 by Kemal Wright MD at [facility] Right: Knee [employer] 08/11/2028 [id number] / / [id number] [employer] [id number] 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 Taper Knee Right 4 Baseplate Tibial Titanium - [id number] Implanted:Qty: 1 on 11/11/2018 by Kemal Wright MD at [facility] Right: Knee [employer] 07/18/2028 [id number] / / [id number]- Size 4 Right Cruciate Retaining Legion Oxinium Femoral Componenet Implanted:Qty: 1 on 11/11/2018 by Kemal Wright MD at [facility] Right: Knee [employer] [id number] 01/06/2028 [id number] / / [id number] [employer] [id number] Palacos R+G High Viscosity Cement Bone Gentamicin Arthroplasty - [id number] Implanted:Qty: 1 on 11/11/2018 by Kemal Wright MD at [facility] Right: Knee [employer] 04/15/2021 [id number] / / [id number] Insurance MEDICARE IDPA MEDICARE IDTX [facility] MEDICARE ADVANTAGE Advance Directives For more information, please contact: [phone] * Full Code (Latest Code Status on File) Date Activated Date Inactivated Comments 11/14/2018 1:26 PM 11/15/2018 7:15 PM * Full Code Date Activated Date Inactivated Comments 11/13/2018 10:00 AM 11/14/2018 1:16 PM per patient request * Full Code Date Activated Date Inactivated Comments 11/11/2018 7:40 PM 11/12/2018 8:26 PM Care Teams Construction Job Cost Estimator Relationship Specialty Start Date End Date Boris Mcnair DO [address] [place] [address] PCP - General Internal Medicine 06/07/25
--- NOTE | 2025-08-13 20:59 | ED.ABDPAIN ---
HPI - Abdominal Pain General Chief Complaint: Abdominal Pain Stated Complaint: abd pain Time Seen by Provider: 08/13/25 20:30 Source: patient Mode of arrival: ambulatory Limitations: no limitations History of Present Illness HPI narrative: This is a 65 year old female that presents to the ER for abdominal pain. Ongoing since this morning. Reports associated nausea and vomiting. Reports history of diverticulitis. Denies fever, diarrhea, dysuria. Related Data Home Medications ?Medication ?Instructions ?Recorded ?Confirmed ?Last Taken ?Type rivaroxaban 20 mg tablet (Xarelto) 20 mg PO DAILY 07/29/19 08/10/25 10/16/24 History folic acid 1 mg tablet 1 mg PO DAILY 08/04/19 08/10/25 10/18/24 History aspirin 81 mg chewable tablet 81 mg PO DAILY 10/06/22 08/10/25 10/18/24 History ergocalciferol (vitamin D2) 1,250 1,250 mcg PO MONTHLY 03/24/24 08/10/25 10/16/24 History mcg (50,000 unit) capsule lactobacillus combination no.9 4 4,000 mmu cells PO DAILY 03/24/24 08/10/25 10/16/24 History billion cell capsule (Adult 50 Plus Probiotic) cholecalciferol (vitamin D3) 25 1,000 unit PO DAILY 10/13/24 08/10/25 10/16/24 History mcg (1,000 unit) capsule (Vitamin D3) Allergies Allergy/AdvReac Type Severity Reaction Status Date / Time codeine Allergy Severe Anaphylaxis Verified 08/10/25 09:58 hydromorphone Allergy Severe Blister Verified 08/10/25 09:58 latex Allergy Severe Blister Verified 08/10/25 09:58 levofloxacin Allergy Severe BLISTERS Verified 08/10/25 09:58 ON BODY morphine Allergy Severe Hypotension Verified 08/10/25 09:58 oxycodone Allergy Severe Blister Verified 08/10/25 09:58 penicillin G Allergy Severe ANAPHYLACTI Verified 08/10/25 09:58 C Penicillins Allergy Severe Anaphylaxis Verified 08/10/25 09:58 shellfish derived Allergy Severe Swelling Verified 08/10/25 09:58 of Lip/Tongue/Throat vancomycin Allergy Severe Red [place], Verified 08/10/25 09:58 Patient unsure of reaction hydrocodone Allergy Intermediate Itching Verified 08/10/25 09:58 dexamethasone (From Maxitrol) Allergy Swelling Verified 08/10/25 09:58 of the Eye metoprolol Allergy Other Verified 08/10/25 09:58 neomycin (From Maxitrol) Allergy Swelling Verified 08/10/25 09:58 of the Eye polymyxin B (From Maxitrol) Allergy Swelling Verified 08/10/25 09:58 of the Eye Review of Systems Review of Systems: All systems reviewed & are unremarkable except as noted in HPI and below PMFSH Past Medical History Medical History Elevated fecal calprotectin ROXANNA (iron deficiency anemia) Non-specific colitis History of colitis Hypothyroidism Hyperlipidemia Carotid artery disease Status post left carotid endarterectomy. Symptomatic PVCs On metoprolol 50 milligrams daily. Hx of deep venous thrombosis Current use of termite control technician anticoagulation Dysphagia History of diverticulitis of colon Adenomatous colon polyp Colon, diverticulosis Lymphocytic colitis GERD (gastroesophageal reflux disease) CVA (cerebral vascular accident) With short-term memory loss. Positive colorectal cancer screening using Cologuard test History of cervical cancer S/p partial hysterectomy Fibromyalgia COVID-19 (01/2022) Tobacco abuse COPD (chronic obstructive pulmonary disease) On termite control technician drug therapy Recurrent falls Colon cancer screening History of colon polyps Otitis media Hypersomnia Low hemoglobin Vertigo Osteoarthritis Diverticulosis With history of diverticulitis. Personal history of nicotine dependence Vitamin B12 deficiency Vitamin D deficiency Surgical History Surgical History Status post cholecystectomy Status post tonsillectomy S/P medial meniscectomy of left knee (09/2021) History of shoulder surgery History of neck surgery Hx of total knee arthroplasty Right History of arthroplasty of right knee History of left-sided carotid endarterectomy Status post cervical spinal fusion Status post right rotator cuff repair Status post tubal ligation Status post left breast biopsy Status post partial hysterectomy For cervical cancer. Family History Family History Mother Depression Family history of diabetes mellitus in first degree relative Diabetes mellitus Father Family history of diabetes mellitus in first degree relative Acute myocardial infarction Diabetes mellitus Sibling Hepatitis Pulmonary embolism Sibling No problems noted. Other Family history of allergic disorder Family history of cardiovascular disease Family history of malignant neoplasm Hypertension Social History Social History (Reviewed 08/10/25 @ 10:01 by Shruti Vásquez Social History: The patient is . She lives with her son in [place]. She designates her sons, Laith Howard and Kemal Islas, as her surrogate decision makers and she wishes to be a full code. She has smoked at least 1 pack of cigarettes per day for almost 40 years. She denies alcohol and drug abuse. Smoking packs per day: 1 Smoking cigarettes per day: 20.0 Years smoked: 40 Smoking pack-years: 40.00 Smoking status: Former smoker Second hand tobacco smoke exposure: Yes Alcohol intake: never Alcohol use details: reaction to ETOH Substance use: never Substance use type: does not use Lack of Transportation: No Lack of Food: Never True Current Housing: I Have Housing Concerned About Future Housing: No Difficulty Paying Gas/Electric Bills: No Difficulty Paying for Meds: No Currently Unemployed: No Education: High School Diploma/GED Difficulty w/ Childcare or Family Care: No Living arrangements: with family 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 HEAD: Normocephalic, atraumatic. EYES: EOMI. CHEST: Clear to auscultation. No respiratory distress. No wheezes rales or rhonchi HEART: Regular rate and rhythm. No murmur heard. Normal peripheral pulses. ABDOMEN: Soft, nontender, nondistended, normal active bowel sounds. EXTREMITIES: Normal range of motion. No edema. SKIN: Warm, dry, no rash. NEURO: No focal deficits. Alert and oriented x3. PSYCH: Normal mood and affect Course Vital Signs Vital signs: Vital Signs Temperature 97.6 F 08/13/25 19:54 Pulse Rate 75 08/13/25 19:54 Respiratory Rate 18 08/13/25 19:54 Blood Pressure 131/69 08/13/25 19:54 Pulse Oximetry 98 08/13/25 19:54 Oxygen Delivery Room Air 08/13/25 19:54 Temperature 97.6 F 08/13/25 19:54 Pulse Rate 75 08/13/25 19:54 Respiratory Rate 18 08/13/25 19:54 Blood Pressure 131/69 08/13/25 19:54 Pulse Oximetry 98 08/13/25 19:54 Oxygen Delivery Room Air 08/13/25 19:54 MDM - Abdominal Pain MDM Narrative Medical decision making narrative: Patient presents emergency department for abdominal pain. She is afebrile and nontoxic appearing. Her vitals are stable. CBC with mild leukocytosis to 11.8. Metabolic panel without concerning findings. Urine without evidence of infection. CT abdomen pelvis showing colitis. Will be started on oral antibiotics. Instructed to follow up with her bellstand attendant. Differential Diagnosis Differential diagnosis: Likely diverticulitis and other (Colitis) Lab Data Attestation: I reviewed the patient's lab results. 08/13/25 20:13 08/13/25 20:13 Labs: Lab Results 08/13/25 08/13/25 Range/Units 20:13 22:51 WBC 11.8 H (4.5-10.0) K/mm3 RBC 5.05 (4.2-5.4) M/mm3 Hgb 14.1 (12.0-15.0) g/dL Hct 43.1 (37.0-47.0) % MCV 85.3 (80-100) fl MCH 27.9 (26-34) pg MCHC 32.7 (32-36) g/dl RDW 14.5 (11.5-14.5) % Plt Count 351 (150-375) k/mm3 MPV 9.4 (7.4-10.4) fl Immature Gran % (Auto) 0.3 (0-0.5) % Neut % (Auto) 79.5 H (45.5-73.1) % Lymph % (Auto) 14.6 L (18.3-44.2) % [place] % (Auto) 5.1 (2.6-8.5) % Eos % (Auto) 0.3 (0-4.4) % Baso % (Auto) 0.2 (0.2-1.2) % Lymph # (Auto) 1.72 (0.9-3.2) K/mm3 [place] # (Auto) 0.6 (0.1-0.6) K/mm3 Eos # (Auto) 0.0 (0-0.3) K/mm3 Baso # (Auto) 0.0 (0.0-0.1) K/mm3 Abs Immat Gran (auto) 0.04 H (0.00-0.031) K/mm3 Absolute Neuts (auto) 9.4 H (1.3-6.7) K/mm3 Absolute Nucleated RBC 0.000 (0.0-0.012) K/mm3 Nucleated RBC % 0.0 (0.0-0.2) % Sodium 139 (137-145) mmol/L Potassium 3.9 (3.4-5.0) mmol/L Chloride 105 (98-107) mmol/L Carbon Dioxide 27 (22-30) mmol/L Anion Gap 7 (4-12) mmol/L BUN 11 (7-17) mg/dL Creatinine 0.87 (0.7-1.0) mg/dL Estim Creat Clear Calc 60 ml/min Estimated GFR > 60 (59 - ) Glucose 98 (65-110) mg/dL Calcium 9.3 (8.4-10.2) mg/dL Total Bilirubin 0.5 (0.2-1.3) mg/dL AST 18 (14-36) U/L ALT 14 (6-35) U/L Alkaline Phosphatase 100 (38-126) U/L Total Protein 7.4 (6.3-8.2) g/dL Albumin 4.3 (3.5-5.1) g/dL Lipase 32 (23-300) U/L Urine Color Yellow (Yellow) Urine Appearance Clear (Clear) Urine pH 5.5 (5.0-9.0) Ur Specific [place] > 1.045 H (1.001-1.035) Urine Protein 1+ H (Negative) mg/dL Urine Glucose (UA) Negative (Negative) mg/dL Urine Ketones Negative (Negative) mg/dL Ur Blood (Man) Negative (Negative) Urine Nitrate Negative (Negative) Urine Bilirubin Negative (Negative) Urine Urobilinogen 0.2 (<2.0) mg/dL Add Ur Microanalysis Reviewed Leukocyte Esterase Rfl Negative (Negative) DIMITRIOS/UL Urine RBC 6-10 H (0-2) /hpf Urine WBC 0-5 (0-3) /hpf Ur Squamous Epith Cells Few (Few) /hpf Urine Bacteria None seen /hpf Urine Casts 0-2 Imaging Data Radiologist's impression: CT abdomen and pelvis: Distal left and rectosigmoid mural thickening suggesting proctocolitis Critical Care Time Critical Care Time Critical Care Time: No Discharge Plan Discharge Clinical Impression: Colitis Patient Disposition: Home Condition: Stable Instructions: Antibiotic Form, Colitis (ED) Additional Instructions: Return to the ER if you experience fever, abdominal pain with nausea and vomiting, you are unable to keep down liquids or solids, blood in the stool, or any other symptoms that are concerning to you Remain well hydrated. Take oral antibiotics as prescribed Follow up with your bellstand attendant Patient Language: Mexican Prescriptions: New metronidazole 500 mg tablet 500 mg PO Q12H 5 Days Qty: 10 0RF ondansetron HCl 4 mg tablet 4 mg PO Q8H PRN (Reason: nausea and vomiting) Qty: 10 0RF cefdinir 300 mg capsule 300 mg PO Q12H 5 Days Qty: 10 0RF No Action aspirin 81 mg Tablet,Chewable 81 mg PO DAILY fluticasone propionate [Flonase Allergy Relief] 50 mcg/actuation spray,suspension 2 spray intranasal DAILY Qty: 18 3RF Rx Instructions: administer into each nostril budesonide 3 mg capsule,delayed,extend.release 6 mg PO DAILY 30 Days Qty: 60 3RF benzonatate 200 mg capsule 200 mg PO TID PRN (Reason: cough) Qty: 30 0RF Xarelto 20 mg tablet 20 mg PO DAILY folic acid 1 mg tablet 1 mg PO DAILY ergocalciferol (vitamin D2) 1,250 mcg (50,000 unit) capsule 1,250 mcg PO MONTHLY Rx Instructions: TAKE 1 CAPSULE BY MOUTH ONCE EVERY MONTH of the Adult 50 Plus Probiotic 4 billion cell capsule 4,000 mmu cells PO DAILY Patient Comments: CURRENTLY OUT Rx Instructions: administer with a meal ondansetron 4 mg tablet,disintegrating 4 mg PO Q8H PRN (Reason: nausea and vomiting) Qty: 90 0RF atorvastatin 40 mg tablet 40 mg PO DAILY Qty: 90 1RF Rx Instructions: Take 1 tablet by mouth once daily levothyroxine [Synthroid] 88 mcg tablet 88 mcg PO DAILY Qty: 90 1RF (DME) nebulizer and compressor Device See Rx Instructions .Route Qty: 1 0RF Rx Instructions: As directed (DME) nebulizer accessories Kit See Rx Instructions .Route Qty: 1 0RF Rx Instructions: As directed cholecalciferol (vitamin D3) [Vitamin D3] 25 mcg (1,000 unit) capsule 1,000 unit PO DAILY tizanidine 4 mg tablet 4 mg PO Q8H PRN (Reason: muscle spasticity) Qty: 30 0RF lidocaine 5 % adhesive patch,medicated 2 patch topical DAILY Qty: 30 0RF Rx Instructions: leave on most painful area for up to 12 hrs pantoprazole 20 mg tablet,delayed release (DR/EC) 20 mg PO DAILY Qty: 90 4RF Rx Instructions: TAKE 1 TABLET BY MOUTH ONCE DAILY IN THE MORNING albuterol sulfate 2.5 mg /3 mL (0.083 %) solution for nebulization 2.5 mg inhalation Q4-6H PRN (Reason: shortness of breath or wheezing) Qty: 180 1RF Patient Comments: . Rx Instructions: Please dispense 3 ml vials. ferrous sulfate [Feosol] 325 mg (65 mg iron) tablet 325 mg PO BID Qty: 180 1RF cyclobenzaprine 10 mg tablet 10 mg PO BID Qty: 20 0RF fluticasone propion-salmeterol [Advair HFA] 230-21 mcg/actuation HFA aerosol inhaler 2 puff inhalation BID Qty: 12 5RF Rx Instructions: administer with spacer, rinse and spit nystatin 100,000 unit/gram cream 1 applic topical TID PRN (Reason: rash) Qty: 30 0RF alprazolam [Xanax] 0.5 mg tablet 0.5 mg PO BID PRN (Reason: anxiety) Qty: 60 0RF Follow-up/Referrals: Boris Mcnair DO [Primary Care Provider, Internal Medicine]
[2025-08-13] MEDS: BELLADONNA ALK/PHENOB ELIX 10 ML, MAG HYDROX/ALUMINUM HYD/SIMETH 30 ML, LIDOCAINE 2% VI... PO (21:21)
[2025-08-13] MEDS: fentaNYL CITRATE INJ (*CRX) 100 MCG/2 ML VIAL 50 MCG IV PUSH (21:21)
[2025-08-13] MEDS: ONDANSETRON INJ 4 MG/2 ML VIAL IV PUSH (21:21)
[2025-08-13] MEDS: SODIUM CHLORIDE 0.9% IV 1,000 ML 999 ML IV CONT (22:57)
[2025-08-13 23:09] LABS: Add Urine Microscopic? YES; Appearance Urine Clear (Clear); Glucose Urine UA Negative (Negative); Leukocyte Esterase Ur Negative LEU/UL (Negative); Need Manual Microscopic Reviewed; Nitrate Urine Negative (Negative); Non Pathogenic Casts 0-2; Specific Grav Ur > 1.045 (1.001-1.035)
[2025-08-14 00:45] VITALS: BP 120/68; PULSE 68; RESP 16; O2SAT 97
[2025-08-14 01:01] VITALS: BP 125/59; PULSE 56; RESP 16; O2SAT 97
== END 2025-08-14 01:04 | disposition home or self-care (01) ==
PROVIDERS: Emergency Medicine; Emergency Provider Physician Assistant; PCP Internal Medicine
DX: K52.9 Noninfective gastroenteritis and colitis, unspecified (principal); I25.10 Atherosclerotic heart disease of native coronary artery without angina pectoris; I69.911 Memory deficit following unspecified cerebrovascular disease; E03.9 Hypothyroidism, unspecified; E78.5 Hyperlipidemia, unspecified; E53.8 Deficiency of other specified B group vitamins; E55.9 Vitamin D deficiency, unspecified; J44.9 Chronic obstructive pulmonary disease, unspecified; D50.9 Iron deficiency anemia, unspecified; K21.9 Gastro-esophageal reflux disease without esophagitis; M79.7 Fibromyalgia; M19.90 Unspecified osteoarthritis, unspecified site; Z98.1 Arthrodesis status; Z96.651 Presence of right artificial knee joint; Z86.16 Personal history of COVID-19; Z86.718 Personal history of other venous thrombosis and embolism; Z86.0101 Personal history of adenomatous and serrated colon polyps; Z85.41 Personal history of malignant neoplasm of cervix uteri; Z87.891 Personal history of nicotine dependence; Z90.711 Acquired absence of uterus with remaining cervical stump; Z90.49 Acquired absence of other specified parts of digestive tract
CPT/HCPCS: 36415; 74177; 80053; 81001; 83690; 85025; 96361; 96374; 96375; 99284; A9270; J2405; J3010; J7030; Q9967

== ENCOUNTER 2025-08-18 16:09 | Outpatient (CLI) | payer MEDICARE, MEDICAID, SELFPAY ==
[2025-08-18 16:45] LABS: Hematocrit 43.9 % (37.0-47.0); Hemoglobin 14.2 g/dL (12.0-15.0); Mean Corpuscular HGB Conc 32.3 g/dl (32-36); Mean Corpuscular Hemoglobin 28.1 pg (26-34); Mean Corpuscular Volume 86.8 fl (80-100); Platelet Count Result 330 k/mm3 (150-375); Red Blood Count 5.06 M/mm3 (4.2-5.4); White Blood Count 10.3 K/mm3 (4.5-10.0)
[2025-08-18 17:04] LABS: Alanine Aminotransferase 20 U/L (6-35); Albumin Level 4.3 g/dL (3.5-5.1); Alkaline Phosphatase 88 U/L (38-126); Anion Gap 4 mmol/L (4-12); Aspartate Amino Transferase 25 U/L (14-36); Bilirubin,Total 0.4 mg/dL (0.2-1.3); Blood Urea Nitrogen 7 mg/dL (7-17); CRP < 0.5 mg/dL (<1.0); Calcium 9.3 mg/dL (8.4-10.2); Carbon Dioxide 29 mmol/L (22-30); Chloride 107 mmol/L (98-107); Estimated Glomerular Filt Rate 55; Glucose 98 mg/dL (65-110); Potassium 3.8 mmol/L (3.4-5.0); Sodium 140 mmol/L (137-145); Total Protein 7.4 g/dL (6.3-8.2)
--- OUTSIDE RECORDS SUMMARY | 2025-08-18 17:05 | XMS_ITS | Clinical Summary ---
Author Organization [facility] Address [address] [place] [address] Care Team Providers Care Auto Accessories Installer Name Role Phone Boris Mcnair DO Primary Care Provider [phone] Source Comments [facility],non-owned Affiliates and Associated Physician Practices is amultiple site organization consisting of ambulatory clinics and hospital sitesin [place], [place], [place] and [place]. This disclosure is being madepursuant to the Care Everywhere program and may not contain all information available regarding this patient. 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 Creatinine 1.0 0.6 - 1.2 mg/dL 02/07/2018 1:22 PM [facility] Sodium 136 136 - 145 mmol/L 02/07/2018 1:22 PM [facility] Potassium 3.6 3.5 - 4.5 mmol/L 02/07/2018 1:22 PM [facility] Chloride 101 98 - 107 mmol/L 02/07/2018 1:22 PM [facility] CO2 25 22 - 29 mmol/L 02/07/2018 1:22 PM [facility] Glucose 93 70 - 115 mg/dL 02/07/2018 1:22 PM [facility] Calcium 9.9 8.4 - 10.2 mg/dL 02/07/2018 1:22 PM [facility] Protein Total 7.6 6.0 - 8.3 g/dL 02/07/2018 1:22 PM [facility] Albumin 3.5 3.4 - 5.0 g/dL 02/07/2018 1:22 PM [facility] Bilirubin Total 0.7 0.2 - 1.2 mg/dL 02/07/2018 1:22 PM [facility] Alkaline Phosphatase 109 40 - 150 Units/L 02/07/2018 1:22 PM [facility] ALT 22 0 - 55 Units/L 02/07/2018 1:22 PM [facility] AST 23 5 - 34 Units/L 02/07/2018 1:22 PM [facility] Anion Gap 14 8 - 18 02/07/2018 1:22 PM [facility] BUN/Creatinine Ratio 8 7 - 23 02/07/2018 1:22 PM [facility] Osmolality Calculated 280 270 - 300 mOsm/kg 02/07/2018 1:22 PM [facility] Albumin/Globulin Ratio 0.9(L) 1.1 - 2.3 02/07/2018 1:22 PM [facility] eGFR 57(L) >60 mL/min/1.7 3 m2 02/07/2018 1:22 PM [facility] Blood BLOOD SPECIMEN / Unknown Lab Venipuncture / Unknown 02/07/2018 12:50 PM T 02/07/2018 12:55 PM CDT Ester Haresh Barajas DO LAB - CHEMISTRY ORDERABLES Final Result [id number] [place] [address], [facility] [phone] from Last 3 Months or Most Recently Relevant to Health Maintenance Insurance MEDICARE [facility] MANAGED MEDICARE ADV [facility] MANAGED MEDICARE ADV [place] SELF PAY NO INSURANCE Member Subscriber Plan / Payer (Ef fective for All Dates) Name:NenitaMing lunabila Bird Member ID:Not on file Relation to Subscriber:Not on file Name:GEGE GUTIERRES Subscriber ID:Not on file (Home) Address: [address] [place] [address] Payer ID:Not on file Group ID:Not on file Type:Self Pay Address: [place], [place] MEDICARE MEDICAID - OUT OF STATE [facility] MANAGED MEDICARE ADV [facility] MANAGED MEDICARE ADV [place] [facility] MANAGED MEDICARE ADV [place] [address] [place] [address] [facility] MANAGED MEDICARE ADV [place] [facility] MANAGED MEDICARE ADV Advance Directives * Full Code (Latest Code Status on File) Date Activated Date Inactivated Comments 02/15/2018 8:10 AM 02/15/2018 12:04 PM * Full Code Date Activated Date Inactivated Comments 02/14/2018 7:57 AM 02/14/2018 6:16 PM Care Teams Auto Accessories Installer Relationship Specialty Start Date End Date Boris Mcnair DO [address] [place] [address] PCP - General 04/07/19
--- OUTSIDE RECORDS SUMMARY | 2025-08-18 17:05 | XMS_ITS | Clinical Summary ---
Author Organization [facility] Address [address] [place] [address] Care Team Providers Care Cst Name Role Phone Eris Vu MD Primary Care Provider [phone] Allergies Active Allergy Reactions Criticality Noted Date Comments Adhesive Tape-Silicones Other (See Comments) Medium 08/19/2014 Blisters Codeine Shortness of Breath/Wheezing High 08/19/2014 Tlbujyfcc-N-Evutfhd-Se jun-Brom Other (See Comments) Low 08/19/2014 Alcohol- [...] Data STL ABSTRACTION Provider, Abstract 07/11/2025 Refill [facility] - [place] [address] [place] [id number] Chris Owens MD 07/07/2025 External Device Data STL ABSTRACTION Provider, Abstract 07/06/2025 External Device Data STL ABSTRACTION Provider, Abstract 06/07/2025 1:00 PM CDT Office Visit [facility] [place] [address] [place] [address] Chris Owens MD Chronic anemia (Primary Dx); Encounter for screening for lung cancer; Anemia due to vitamin B12 deficiency, unspecified B12 deficiency type 06/03/2025 Orders Only [facility] [address] [place] [id number] Chris Owens MD 06/01/2025 External Device Data [...] on file Legal Sex Female 12:44 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 Gender Identity Not on file Sexual [...] st Contact Info) Description 09/02/2025 11:00 AM SOLAR INSTALLER TECHNICIAN Office Visit [facility] - [place] [address] [facility] [address] [place] [address] Chris Owens MD [address] [place] [address] Health Maintenance Due Date Last [...] Recently Relevant to Health Maintenance Insurance [facility] [place] [id number] [facility] PPO DSNP [facility] [id number] Care Teams Cst Relationship Specialty Start Date End Date Eris Vu MD PCP - General Family Practice 02/21/23
--- OUTSIDE RECORDS SUMMARY | 2025-08-18 17:07 | XMS_ITS | Clinical Summary ---
Author Organization [facility] Address [address] [place] [address] Care Team Providers Care Day Camp Unit Leader Name Role Phone Boris Mcnair DO Primary Care Provider [phone] Allergies Active Allergy Reactions Criticality Noted Date [...] mcg tablet Take 112 mcg by mouth radiation control worker before breakfast. 8 Active XARELTO 20 mg [...] 07/18/2025 Assessment & Plan (07/18/2025 12:36 PM ACADEMIC ADVISOR): I do not think that she needs [...] (09/24/2018): Added automatically from request for surgery [id number] Encounters Date Type Department Care Team Description 07/14/2025 2:00 PM CDT Office Visit [facility] [address] [place] [address] Rinku Shankar MD Snoring (Primary Dx) [...] on file Legal Sex Female 11:26 PM ACADEMIC ADVISOR Gender Identity Not on file Sexual Orientation Not on file Last Filed Vital Signs Vital Sign Reading Time Taken Comments Blood Pressure 98/64 10/02/2019 8:21 AM ACADEMIC ADVISOR Pulse 55 10/02/2019 8:21 AM ACADEMIC ADVISOR Temperature 37.1 C (98.8 F) 11/24/2018 12:06 [...] 06/12/2027 7 Medical Devices Implanted Type Area Drill Operator Pneumatic Device Identifier Shelf Expiration Date Model / Serial / Lot [employer]Or tho [id number] Legion 9mm Dished Knee 3-4 Insert Tibial Xlpe - [id number] Implanted:Qty: 1 on 11/11/2018 by Kemal Wright MD at [facility] Right: Knee [employer]Or tho 08/11/2028 [id number] / / [id number] [employer]Or tho [id number] 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 Taper Knee Right 4 Baseplate Tibial Titanium - [id number] Implanted:Qty: 1 on 11/11/2018 by Kemal Wright MD at [facility] Right: Knee [employer]Or tho 07/18/2028 [id number] / / [id number] 4 Right Cruciate Retaining Legion Oxinium Femoral Componenet Implanted:Qty: 1 on 11/11/2018 by Kemal Wright MD at [facility] Right: Knee [employer]hew [id number] 01/06/2028 [id number] / / [id number] [employer] [id number] Palacos R+G High Viscosity Cement Bone Gentamicin Arthroplasty - [id number] Implanted:Qty: 1 on 11/11/2018 by Kemal Wright MD at [facility] Right: Knee [employer] 04/15/2021 [id number] / / [id number] Insurance MEDICARE IDPA MEDICARE IDFL [facility] MEDICARE ADVANTAGE Advance Directives For more information, please contact: [phone] * Full Code (Latest Code Status on File) Date Activated Date Inactivated Comments 11/14/2018 1:26 PM 11/15/2018 7:15 PM * Full Code Date Activated Date Inactivated Comments 11/13/2018 10:00 AM 11/14/2018 1:16 PM per patient request * Full Code Date Activated Date Inactivated Comments 11/11/2018 7:40 PM 11/12/2018 8:26 PM Care Teams Day Camp Unit Leader Relationship Specialty Start Date End Date Boris Mcnair DO [address] [place] [address] PCP - General Internal Medicine 06/07/25
--- OUTSIDE RECORDS SUMMARY | 2025-08-18 17:07 | XMS_ITS | Clinical Summary ---
Author Organization [facility] Address [address] [place] [address] Care Team Providers Care Stone Finisher Name Role Phone Eris Vu MD Primary Care Provider [phone] Allergies Active Allergy Reactions Criticality Noted Date [...] this topic Medical Devices Implanted Type Area Study Coordinator Device Identifier Shelf Expiration Date Model / Serial / Lot Tecnis 1-Piece Iol Implanted:Qty: 1 on 06/08/2024 by Jadon Vu MD at [facility] Left: Eye [employer] 10/27/2026 / [id number] / Insurance MEDICARE MEDICAID Care Teams Stone Finisher Relationship Specialty Start Date End Date Eris Vu MD [address] [place] [address] PCP - General FAMILY PRACTICE 06/05/24
[2025-08-18 17:35] LABS: Hepatitis B Surface Antigen Negative (Negative)
[2025-08-18 17:52] LABS: Hepatitis B Surface Anti Res Negative
[2025-08-19 06:08] LABS: Hep B Core Ab, Total Negative (Negative)
== END 2025-08-18 16:10 | disposition home or self-care (01) ==
PROVIDERS: PCP Internal Medicine; Visit Provider Internal Medicine Gastroenterology
DX: K52.9 Noninfective gastroenteritis and colitis, unspecified (principal); R19.5 Other fecal abnormalities; R10.9 Unspecified abdominal pain
CPT/HCPCS: 36415; 80053; 85027; 85652; 86140; 86480; 86704; 86706; 87340

== ENCOUNTER 2025-08-26 09:47 | Outpatient (CLI) | payer MEDICARE, MEDICAID, SELFPAY ==
--- NOTE | ~2025-08-26 | CT_ITS ---
EXAMINATION:CT lung screening DATE: 08/26/2025 10:14 INDICATION: Screening TECHNIQUE: Computed tomography (CT) of the chest was performed without intravenous contrast. The dose-length product (DLP) was 89.67 mGy-cm. COMPARISON: August 25, 2024 FINDINGS: 3 x 3 mm subpleural nodule posterior segment left lower lobe image 63 series 4. Tiny subpleural nodules lateral margin of the right middle and upper lobes. 4 x 4 mm subpleural nodule posterior segment right lower lobe image 54 series 4. 2 small subpleural nodules right upper lobe image 25 series 4 also new. No other lung nodules or masses seen. Heart and great vessels stable. No acute process seen in the visualized portions of the upper abdomen or bony thorax. Cholecystectomy clips noted. IMPRESSION: Multiple new small nodules radiographically likely benign. Correlate with follow-up low-dose lung cancer screening chest CT in 6 months. Lung RADS 3. Reviewed, dictated and finalized at location A. ERECTOR IMPRESSION: Multiple new small nodules radiographically likely benign. Correlat e with follow-up low-dose lung cancer screening chest CT in 6 months. Lung RADS 3.
== END 2025-08-26 09:48 | disposition home or self-care (01) ==
PROVIDERS: PCP Internal Medicine; Visit Provider Internal Medicine Hematology & Oncology
DX: Z12.2 Encounter for screening for malignant neoplasm of respiratory organs (principal); R91.8 Other nonspecific abnormal finding of lung field; Z87.891 Personal history of nicotine dependence
CPT/HCPCS: 71271